=== PATIENT | female | born 1945 | race Caucasian/White ===

== ENCOUNTER → 2018-03-10 11:54 | Outpatient (CLI) | payer MEDICARE, OTHER, SELFPAY ==
[2018-03-10 14:41] LABS: Absolute Lymphocyte Count 1.53 X10^3/ul (0.83-4.51); Absolute Neutrophil Count 2.4 X10^3/uL (2.0-7.7); Basophil# 0.03 X10^3/uL; Basophil% 0.4 % (0-1); Differential Indicated SCAN CRITERIA MET; Eosinophil# 0.22 X10^3/uL; Hematocrit 36.5 % (37-47); Hemoglobin 12.2 g/dl (12.0-15.0); Lymphocyte # 1.53 X10^3/ul (4.0); Lymphocyte % 20.8 % (19-41); Mean Corp Hgb Conc 33.4 g/gl (32-36); Mean Corpuscular Hgb 35.8 pg (27.0-32.0); Mean Platelet Vol. 11.9 fl (6.2-12.0); Monocyte# 3.11 X10^3/uL; Monocyte% 42.3 % (0-10); Neutrophil # 2.44 X10^3/uL (2.7-7.7); Neutrophil % 33.2 % (47-70); POSITIVE COUNT NO; POSITIVE DIFFERENTIAL YES; POSITIVE MORPHOLOGY NO; Platelet Count 207 K/mm3 (150-450); RBC Distribution Width CV 14.1 % (11.6-14.6); RBC Distribution Width SD 54.1 fl (35.1-43.9); Red Blood Count 3.41 M/mm3 (4.2-5.4); White Blood Count 7.4 K/mm3 (4.4-11.0)
[2018-03-10 14:53] LABS: ALB/GLOB Ratio 0.7 RATIO (0.9-2.4); AST(SGOT) 27 U/L (15-37); Alanine Aminotransfer ALT/SGPT 36 U/L (13-56); Albumin, Serum 3.4 g/dL (3.2-5.0); Alkaline Phosphatase 66 U/L (45-117); Anion Gap 10 (5-15); BUN 19 mg/dL (7-18); Chloride 105 mmol/L (98-107); Cholesterol 153 mg/dL (200); Creatinine, Serum 0.86 mg/dL (0.55-1.02); EST Glomerular Filtration Rate 68 mL/min (>60); Est Glom Filt Rate - Afr Amer 83 mL/min (>60); Globulin 5.1 g/dL (2.2-4.2); Glucose 98 mg/dL (74-106); High Density Lipoprotein 36 mg/dL; Protein, Total 8.5 g/dL (6.4-8.2); Sodium Level 141 mmol/L (136-145); Triglycerides 123 mg/dL; Very Low Density Lipoprotein 25 mg/dL (5-40)
[2018-03-10 15:07] LABS: Differential Comment SCANNED
== END ==
PROVIDERS: Family Provider Family Medicine; PCP Family Medicine; Visit Provider Family Medicine
DX: E78.5 Hyperlipidemia, unspecified (principal); Z51.81 Encounter for therapeutic drug level monitoring; R53.83 Other fatigue
CPT/HCPCS: 36415; 80053; 80061; 85025

== ENCOUNTER → 2018-03-11 15:54 | Outpatient (CLI) | payer MEDICARE, OTHER, SELFPAY ==
[2018-03-14 20:11] LABS: PROEL- A/G Ratio 0.9 (0.7-1.7); PROEL- Albumin 3.4 g/dL (2.9-4.4); PROEL- Alpha-1 Globulin 0.3 g/dL (0.0-0.4); PROEL- Alpha-2 Globulin 0.5 g/dL (0.4-1.0); PROEL- Beta Globulin 2.7 g/dL (0.7-1.3); PROEL- Gamma Globulin 0.6 g/dL (0.4-1.8); PROEL- TOTAL PROTEIN 7.4 g/dL (6.0-8.5)
== END ==
PROVIDERS: Family Provider Family Medicine; PCP Family Medicine; Visit Provider Family Medicine
DX: R77.1 Abnormality of globulin (principal)
CPT/HCPCS: 36415; 84165

== ENCOUNTER → 2018-03-22 11:19 | Outpatient (CLI) | payer MEDICARE, OTHER, SELFPAY ==
[2018-03-24 16:10] LABS: PROELU- Albumin, Urine 4.1 % (.); PROELU- Alpha-1-Globulin,Ur 0.7 % (.); PROELU- Alpha-2-Globulin,Ur 2.5 % (.); PROELU- Beta Globulin, Ur 90.2 % (.); PROELU- Gamma Globulin, Ur 2.5 % (.); PROELU- M-Spike, Ur 80.4 % (Not Observed)
== END ==
PROVIDERS: Family Provider Family Medicine; PCP Family Medicine; Visit Provider Family Medicine
DX: R77.1 Abnormality of globulin (principal); R77.8 Other specified abnormalities of plasma proteins
CPT/HCPCS: 84166

== ENCOUNTER → 2018-04-23 11:11 | Outpatient (CLI) | payer MEDICARE, OTHER, SELFPAY | PROVIDERS: Family Provider Family Medicine; PCP Family Medicine; Visit Provider Internal Medicine Hematology & Oncology | DX: D75.89 Other specified diseases of blood and blood-forming organs (principal); D47.2 Monoclonal gammopathy ==

== ENCOUNTER → 2018-05-06 08:03 | Outpatient (CLI) | payer MEDICARE, OTHER, SELFPAY ==
[2018-05-06] VITALS (7 sets, daily range): BP systolic 106–162; BP diastolic 37–68; PULSE 67–85; RESP 12–22; TEMP 36.9; O2SAT 94–100; BMI 26.4
--- NOTE | 2018-05-06 | BMB_PTH ---
PATIENT: RADHA SPENCER LOC: [facility] U#:[id number] AGE/SX: 80/F ROOM: RE05/06/[address]: Dr. Christian Gómez MD : 1945 BED: DIS: SPEC #: [id number] RECD: 05/06/18 11:48 STATUS: VITA RE #: [id number] LUIS: 05/06/18 00:[address]: Christian Gómez DEPT: BONE MARROW RECD BY: Charles Servin ENTERED: 05/06/18 11:49 SP TYPE: BMB OTHR DR: Dr. 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 See comment. Flow cytometry study from [facility] shows a abnormal cytoplasmic restricted, 2% (kappa light chain restricted) plasma cell population. Granulocytes and monocytes show phenotypic aberrancies. No monoclonal B cell population is detected. There is no loss of or aberrant expression of candelaria T-cell antigens to suggest neoplastic T-cell process. The complete report is viewable in patient?s EMR. SJ:rg 05/11/18 COMMENT The bone marrow core biopsy specimen shows only the bone fragments. No marrow tissue is identified. Bone marrow clot specimen ? no specimen is recovered. Bone marrow aspirate smear show marked hemodilution. Mild increase of plasma cells are noted. Most of the plasma cells are mature with rare immature plasma cell and binucleated plasma cell. Correlation with clinical findings and appropriate follow up are necessary. BONE MARROW STUDY Slides are reviewed. CBC DATE: 05/06/18 WBC 6.7; RBC 3.55; HGB 12.3; HCT 37.9; MCV 106.8; RDW 14.3; PLTS 220,000 SEGS 28%; LYMPHS 27.67%; MONOS 39.6%; EOS 3.9%; BASOS 0.6% PERIPHERAL SMEAR: Submitted. RBC: Macrocytosis. WBC: Increased number of monocytes is noted. The WBC count is compatible to as reported above. PLTS: Adequate. BONE MARROW ASPIRATE DIFFERENTIAL: 200 cell count. Blasts % (normal 0-2): 0 Promyelocytes % (normal 1-5): 0 Myelocytes and metamyelocytes % (normal 17-41): 29 Bands and Segs % (normal 15-32): 37 Eos % (normal 1-6): 2 Basos % (normal 0-1): 0 Monocytes % (normal 0-4): 2 Erythroid Precursors % (normal 17-35): 11 Lymphocytes % (normal 7-13): 9 Plasma Cells % (normal 0-2): 10 ASPIRATE FINDINGS: Site: Right Aspicular, Hypocellular M/E ratio: 6.2 (Normal 1.5-4.0) Comment: The smears show marked hemodilution. All submitted smears are examined. Above count might not be accurate due to hemodilution. The smears show erythroid and myeloid cells. Megakaryocytes are not seen. Mild increase of plasma cells is noted. Most of the plasma cells are mature with rare immature plasma cells and binucleated plasma cells. CORE BIOPSY FINDINGS: Site: Right Adequacy: Insufficient Comment: The specimen entirely consists of bone fragments. No marrow tissue is identified. ASPIRATE CLOT FINDINGS: Site: Right Comment: No specimen is recovered. SPECIAL STAINS WITH MATCHED CONTROLS: Iron: Absent (hemodiluted smear) Reticulin: Noncontributory PAS: Highlights myeloid cells (hemodiluted smear) BONE MARROW GROSS A - Received is a container labeled with the patient's name and designated right hip. The specimen consists of two minute fragments of blood clot with possible fragments of bone measuring in aggregate 0.2 x 0.2 x 0.1. The entire specimen is submitted in one cassette after decalcification. B - Received labeled with the patient's name and designated right hip is a specimen that consists of approximately 2 cc of bloody fluid. No obvious blood clot is noted. The specimen is filtered through the bag and submitted entirely in one cassette. C - Also received are 19 unstained and 1 peripheral stained slides. The unstained slides are submitted for appropriate staining. Also received are two green top tubes which are sent to our reference lab for flow, cytogenetics and FISH. / SJ:rg 05/06/18 TC:5 CPT: 91488, 80360, 23924 x2, 50649 x3, 56451 ADDENDUM ADDENDUM ADDENDUM ADDENDUM ADDENDUM ADDENDUM ADDENDUM ADDENDUM ADDENDUM ADDENDUM ADDENDUM ADDENDUM ADDENDUM ADDENDUM ADDENDUM ADDENDUM ADDENDUM 05/18/2018 14:07 ADDENDUM 05/18/2018 14:07 ADDENDUM 05/18/2018 14:07 ADDENDUM 05/18/2018 14:07 ADDENDUM 05/18/2018 14:07 CYTOGENETICS REPORT FROM [facility] CYTOGENETIC RESULT: 47,XX,+8[5]/46,XX[15] INTERPRETATION: MDS/MPN related clone detected. MULTIPLE MYELOMA FISH PANEL FROM [facility] FISH RESULT: Positive for trisomy 11 and three IGH signals INTERPRETATION: Multiple myeloma related cone detected. MDS FISH PANEL FROM [facility] FISH RESULT: 39% of nuclei positive for three chromosome 8 signals INTERPRETATION: MDS/MPN/AML related clone detected Please see complete report in e-chart or EMR for further details
[2018-05-06 08:44] LABS: International Normalized Ratio 1.1; Partial Thromboplast Time 29.5 Seconds (24.1-36.2); Prothrombin Time (Protime)PT. 14.4 SECONDS (11.7-14.9)
[2018-05-06 08:44] LABS: Absolute Lymphocyte Count 1.85 X10^3/ul (0.83-4.51); Absolute Neutrophil Count 1.9 X10^3/uL (2.0-7.7); Basophil# 0.04 X10^3/uL; Basophil% 0.6 % (0-1); Differential Indicated SCAN CRITERIA MET; Eosinophil# 0.26 X10^3/uL; Eosinophils% 3.9 % (0-5); Hematocrit 37.9 % (37-47); Hemoglobin 12.3 g/dl (12.0-15.0); Lymphocyte # 1.85 X10^3/ul (4.0); Lymphocyte % 27.6 % (19-41); Mean Corp Hgb Conc 32.5 g/gl (32-36); Mean Corpuscular Hgb 34.6 pg (27.0-32.0); Mean Corpuscular Volume 106.8 fL (81-99); Mean Platelet Vol. 11.2 fl (6.2-12.0); Monocyte# 2.66 X10^3/uL; Monocyte% 39.6 % (0-10); Neutrophil # 1.88 X10^3/uL (2.7-7.7); POSITIVE COUNT NO; POSITIVE DIFFERENTIAL YES; POSITIVE MORPHOLOGY YES; Platelet Count 220 K/mm3 (150-450); RBC Distribution Width CV 14.3 % (11.6-14.6); RBC Distribution Width SD 55.9 fl (35.1-43.9); Red Blood Count 3.55 M/mm3 (4.2-5.4); White Blood Count 6.7 K/mm3 (4.4-11.0)
== END ==
PROVIDERS: Family Provider Family Medicine; PCP Family Medicine; Visit Provider Internal Medicine Hematology & Oncology
DX: C90.00 Multiple myeloma not having achieved remission (principal); D47.2 Monoclonal gammopathy; D75.89 Other specified diseases of blood and blood-forming organs
CPT/HCPCS: 38221; 36415; 77012; 77075; 85025; 85610; 85730; 88305; 88311; 88313; 99156; 99157; J7040; A4216

== ENCOUNTER 2018-06-22 13:55 | Emergency (ER) | payer MEDICARE, OTHER, SELFPAY ==
[2018-06-22 13:56] VITALS: BP 145/75; PULSE 71; RESP 16; TEMP 36.8; O2SAT 97; BMI 27.4
--- NOTE | 2018-06-22 14:16 | EKG12_ITS ---
Test Reason : CP Blood Pressure : / mmHG Vent. Rate : 071 BPM Atrial Rate : 071 BPM P-R Int : 156 ms QRS Dur : 080 ms QT Int : 400 ms P-R-T Axes : 053 027 043 degrees QTc Int : 434 ms Normal sinus rhythm Normal ECG Confirmed by JAMIA GARNICA, KAI ([id number]), editor producer TYLER MORGAN ([id number]) on 06/24/2018 1:24:43 PM Referred By: MIGUEL ÁNGEL/HUI Confirmed By:KAI BLANDON MD
--- NOTE | 2018-06-22 14:16 | CT_ITS ---
STUDY: CTA CHEST REASON FOR EXAM: Female, 73 years old. 2 day history of chest pain. History of bone metastasis. RADIATION DOSAGE (If Supplied By Facility): CTDIvol = ( 9.37 ) mGy, DLP = ( 2949.03 ) mGycm TECHNIQUE: The examination was performed with the intravenous administration of 100 ml of Isovue 370 contrast material. Post-processing of the angiographic images was performed, with multiplanar reformation and 3D reconstruction. Individualized dose optimization techniques were used for this CT. COMPARISON: None. FINDINGS: Small bilateral axillary lymph nodes. Normal enhancement of the main pulmonary artery and right and left pulmonary arteries. Normal enhancement of the bilateral peripheral pulmonary arteries. There is no demonstrated pulmonary embolism. Normal thoracic aorta and visualized great vessels. There is no demonstrated aortic dissection. Normal heart and pericardium. Normal mediastinum. Normal hilar regions. Normal visualized trachea and bronchi. Mild elevation of the right hemidiaphragm. Findings suggestive of a bilateral apical scarring. There is a 6.0 mm x 8.3 mm spiculated nodule in the anterior aspect of the left upper lobe as seen on axial image #196. There is a focal area of prominent reticular nodular change in the posterior aspect of the left upper lobe as seen on axial image #136. This measures 1.9 cm x 1 cm. There is also evidence of a focal irregular soft tissue density in the posterior aspect of the right upper lobe as seen on axial image #112. Mild increased markings along the posterior aspect of the both lower lobes suggestive of scarring. Normal pleura. Normal chest wall structures. There are degenerative changes of thoracic spine. There is a 2.5 cm x 2.6 cm rounded hypodensity peripheral aspect of the superior aspect of the right lobe of the liver. A metastatic deposit should be ruled out. CT/CTA Chest W/WO Contrast IMPRESSION: There is no evidence of pulmonary embolism. Findings suggestive of a possible scarring in both lower lobes as well as both lung apices. Small spiculated nodule in the left upper lobe as well as focal area of the irregularity in the posterior aspect of the right upper lobe. Correlation with a PET scan is recommended. Electronically Signed: Kenyon Carmen MD at 15:25 EDT Tel [phone], Service support ,
[2018-06-22 14:25] VITALS: O2SAT 95
[2018-06-22] MEDS: 0.9% Normal Saline 1,000 ML 1000 ML IV (14:27)
[2018-06-22 14:28] LABS: Absolute Lymphocyte Count 1.13 X10^3/ul (0.83-4.51); Absolute Neutrophil Count 5.7 X10^3/uL (2.0-7.7); Basophil# 0.03 X10^3/uL; Basophil% 0.3 % (0-1); Differential Indicated SCAN CRITERIA MET; Eosinophil# 0.47 X10^3/uL; Eosinophils% 4.2 % (0-5); Hematocrit 36.6 % (37-47); Hemoglobin 11.7 g/dl (12.0-15.0); Lymphocyte # 1.13 X10^3/ul (4.0); Lymphocyte % 10.1 % (19-41); Mean Corpuscular Hgb 34.7 pg (27.0-32.0); Mean Corpuscular Volume 108.6 fL (81-99); Mean Platelet Vol. 13.1 fl (6.2-12.0); Monocyte# 3.85 X10^3/uL; Monocyte% 34.3 % (0-10); Neutrophil # 5.67 X10^3/uL (2.7-7.7); Neutrophil % 50.3 % (47-70); POSITIVE COUNT NO; POSITIVE DIFFERENTIAL YES; POSITIVE MORPHOLOGY NO; Platelet Count 121 K/mm3 (150-450); RBC Distribution Width CV 14.9 % (11.6-14.6); RBC Distribution Width SD 57.1 fl (35.1-43.9); Red Blood Count 3.37 M/mm3 (4.2-5.4); White Blood Count 11.2 K/mm3 (4.4-11.0)
[2018-06-22 14:41] LABS: Anion Gap 7 (5-15); BUN 17 mg/dL (7-18); BUN/Creat Ratio 19.3 RATIO (10-20); Calcium,Total 9.1 mg/dL (8.5-10.1); Chloride 102 mmol/L (98-107); Creatinine, Serum 0.88 mg/dL (0.55-1.02); EST Glomerular Filtration Rate 67 mL/min (>60); Est Glom Filt Rate - Afr Amer 81 mL/min (>60); Glucose 102 mg/dL (74-106); Potassium 4.3 mmol/L (3.5-5.1); Sodium Level 138 mmol/L (136-145)
--- NOTE | 2018-06-22 15:53 | ED.VISSUMM ---
- ER Visit Summary Date of Service: 06/22/18 Chief Complaint: Chest pain History of Present Illness: The patient is a [address] Wilson and Dr. Green. She reports that she has left-sided chest pain began 2 days ago. Is a continuous sharp pain Zeta 10 at worst and 6 out of 10 currently. Is worsened by breathing and relieved by nothing. She reports is been diaphoretic with this. She denies any nausea, vomiting, or shortness of breath. Patient has a history of multiple myeloma and took a long road trip over the course of 3 days last week. She denies any exertional character this pain. Physical Examination: Vitals: Stable. Afebrile. General: Well-nourished and well-developed. Head: Normocephalic atraumatic. Neck: Supple, no lymphadenopathy. No JVD. Nontender. Cardiovascular: Regular rate and rhythm. No murmurs. Respiratory: No respiratory distress. Clear to auscultation bilaterally. Mild diffuse tenderness palpation over the left side of her upper chest that does reproduce her pain. Abdominal: Soft, nontender, nondistended, normal bowel sounds. No guarding, rebound, or peritoneal signs. Back: Nontender. Extremities: Nontender, no edema. Skin: Normal color, no rash. Neurologic: Alert and oriented ?3. Cranial nerves II through XII are intact. Normal strength and sensation. Psych: Normal affect. Test Results: EKG is sinus at 71 with no acute changes. Troponin is negative. Chem-7 is normal. CBC is marked for a white count of 11.2 with 10 lymphocytes and 34 monocytes. H&H is 11.7 38.6. Platelets are 121. Clinical Impression(s) from Imaging Studies Chest CTA 06/22/18 14:16 IMPRESSION: There is no evidence of pulmonary embolism. Findings suggestive of a possible scarring in both lower lobes as well as both lung apices. Small spiculated nodule in the left upper lobe as well as focal area of the irregularity in the posterior aspect of the right upper lobe. Correlation with a PET scan is recommended. Electronically Signed: Kenyon Carmen MD at 15:25 EDT Tel [phone], Service support , Emergency Department Course and Treatment: Patient refused pain medications and is resting comfortably. The main concern was that she may have a pulmonary embolus. With this negative she is reassured. I did discuss the possibility of the pulmonary nodule with her. She reports that she has had a PET scan previously. Treatment Plan: Patient will be discharged instructions follow-up with her oncologist in 2 days previously scheduled. She is refused pain medications at home. Return to the emergency department for any worsening symptoms. Disposition: To home in improved and stable condition. Impression: 1. Atypical chest pain. 2. Pulmonary nodules. 3. History of multiple myeloma. This note was generated with [employer] dictation software. It may contain incorrect words, spelling, and punctuation that were not noted in review of the chart prior to signing ED Disposition - Plan for ED Patient: Disposition: Home or Assisted Living Chief Complaint: Chest Pain Instructions: ED Chest Pain Atypical Unkn Cause, ED Nodule Solitary Pulmonary Referrals: Christian Gómez MD [STAFF PHYSICIAN] - Keep Vi appointment
--- NOTE | 2018-06-22 16:07 | ED.DCSUM_ITS ---
- ER Visit Summary Date of Service: 06/22/18 Chief Complaint: Chest pain History of Present Illness: The patient is a [address] Wilson and Dr. Green. She reports that she has left-sided chest pain began 2 days ago. Is a continuous sharp pain Zeta 10 at worst and 6 out of 10 currently. Is worsened by breathing and relieved by nothing. She reports is been diaphoretic with this. She denies any nausea, vomiting, or shortness of breath. Patient has a history of multiple myeloma and took a long road trip over the course of 3 days last week. She denies any exertional character this pain. Physical Examination: Vitals: Stable. Afebrile. General: Well-nourished and well-developed. Head: Normocephalic atraumatic. Neck: Supple, no lymphadenopathy. No JVD. Nontender. Cardiovascular: Regular rate and rhythm. No murmurs. Respiratory: No respiratory distress. Clear to auscultation bilaterally. Mild diffuse tenderness palpation over the left side of her upper chest that does reproduce her pain. Abdominal: Soft, nontender, nondistended, normal bowel sounds. No guarding, rebound, or peritoneal signs. Back: Nontender. Extremities: Nontender, no edema. Skin: Normal color, no rash. Neurologic: Alert and oriented ?3. Cranial nerves II through XII are intact. Normal strength and sensation. Psych: Normal affect. Test Results: EKG is sinus at 71 with no acute changes. Troponin is negative. Chem-7 is normal. CBC is marked for a white count of 11.2 with 10 lymphocytes and 34 monocytes. H&H is 11.7 38.6. Platelets are 121. Clinical Impression(s) from Imaging Studies Chest CTA 06/22/18 14:16 IMPRESSION: There is no evidence of pulmonary embolism. Findings suggestive of a possible scarring in both lower lobes as well as both lung apices. Small spiculated nodule in the left upper lobe as well as focal area of the irregularity in the posterior aspect of the right upper lobe. Correlation with a PET scan is recommended. Electronically Signed: Kenyon Carmen MD at 15:25 EDT Tel [phone], Service support , Emergency Department Course and Treatment: Patient refused pain medications and is resting comfortably. The main concern was that she may have a pulmonary embolus. With this negative she is reassured. I did discuss the possibility of the pulmonary nodule with her. She reports that she has had a PET scan previously. Treatment Plan: Patient will be discharged instructions follow-up with her oncologist in 2 days previously scheduled. She is refused pain medications at home. Return to the emergency department for any worsening symptoms. Disposition: To home in improved and stable condition. Impression: 1. Atypical chest pain. 2. Pulmonary nodules. 3. History of multiple myeloma. This note was generated with [employer] dictation software. It may contain incorrect words, spelling, and punctuation that were not noted in review of the chart prior to signing ED Disposition - Plan for ED Patient: Disposition: Home or Assisted Living Chief Complaint: Chest Pain Instructions: ED Chest Pain Atypical Unkn Cause, ED Nodule Solitary Pulmonary Referrals: Christian Gómez MD [STAFF PHYSICIAN] - Keep Vi appointment
[2018-06-22 16:22] VITALS: BP 131/74; PULSE 62; RESP 15; O2SAT 99
== END 2018-06-22 16:23 | disposition home or self-care (01) ==
PROVIDERS: Emergency Provider Emergency Medicine; Family Provider Family Medicine; PCP Family Medicine
DX: R07.89 Other chest pain (principal); R19.8 Other specified symptoms and signs involving the digestive system and abdomen; C90.00 Multiple myeloma not having achieved remission; Z79.82 Long term (current) use of aspirin; Z79.899 Other long term (current) drug therapy
CPT/HCPCS: 71275; 80048; 84484; 85025; 93005; 96360; 96361; 99285; J7030; Q9967; A4216

== ENCOUNTER → 2018-06-29 07:43 | Outpatient (CLI) | payer MEDICARE, OTHER, SELFPAY ==
[2018-06-29] VITALS (9 sets, daily range): BP systolic 104–168; BP diastolic 33–82; PULSE 66–78; RESP 12–18; TEMP 36.8; O2SAT 94–100; BMI 27.4
--- NOTE | 2018-06-29 | ASPIGT_PTH ---
PATIENT: RADHA SPENCER LOC: CT U#:[id number] AGE/SX: 80/F ROOM: RE06/29/[address]: Dr. Christian Gómez MD : 1945 BED: DIS: SPEC #: [id number] RECD: 06/29/18 11:41 STATUS: VITA REDianna #: [id number] LUIS: 06/29/18 00:[address]: Christian Gómez DEPT: SURGICAL PATHOLOGY RECD BY: Italo Guaman ENTERED: 06/29/18 11:42 SP TYPE: ASP RAD OTHR DR: Dr. Augusta Wilson DO Tissues: Liver, NOS Procedures: PAS with Diastase (control) FNA Specimen Adequacy Trichrome (control) Special Stain Group II PAS Stain (control) Surgery Specimen Level V Diff Quik Stain (control) Retic (control) Iron Stain (control) Imprint (control) Cytology Other HEADER PERATION: CT guided liver biopsy PRE-OP DIAGNOSIS: Liver lesion TISSUE SUBMITTED: Liver lesion, CT guided core biopsy MICROSCOPIC DIAGNOSIS Liver lesion, CT-guided needle core biopsy: Liver parenchyma with minimal chronic inflammation. Fibrovascular tissue with associated minimal fibrinoid material and degenerative change. AM:ash 06/30/18 COMMENT The specimen is evaluated at the time of CT by Dr. Murphy. Immediate Evaluation: 1 - Hepatocytes noted, negative for malignant cells. 2 - Negative for malignant cells. Immunohistochemistry ([id number]) supports the above diagnosis. Special stains (trichrome, PAS, PAS with diastase, iron and reticulin) along with matched controls are reviewed and support the diagnosis. A benign vascular lesion cannot be entirely excluded. Clinical correlation is necessary. Case has been reviewed in consultation with Dr. Murphy who concurs with the above diagnosis. IDC:EDITA MICROSCOPIC DESCRIPTION Slides are reviewed. GROSS DESCRIPTION Received in fixative is one container labeled with the patient's name and designated liver lesion, CT-guided core biopsy. The specimen consists of multiple elongated fragments of ng soft tissue that in aggregate measure 1.5 x 0.2 x 0.1 cm. The specimen is totally submitted in one cassette. Two touch imprints are prepared at the time of core biopsy. / EDITA:ash 06/29/18 TC:5 CPT: 02334, 66840 x5
--- NOTE | 2018-06-29 | IMM_PTH ---
PATIENT: RADHA SPENCER LOC: CT U#:[id number] AGE/SX: 80/F ROOM: RE06/29/[address]: Dr. Christian Gómez MD : 1945 BED: DIS: SPEC #: [id number] RECD: 06/30/18 12:10 STATUS: VITA REQ #: [id number] LUIS: 06/29/18 00:[address]: Christian Gómez DEPT: IMMUNOHISTOCHEMISTRY RECD BY: Lynn Maldonado ENTERED: 06/30/18 12:11 SP TYPE: IMMUNO OTHR DR: Dr. Augusta Wilson DO Tissues: Liver, NOS Procedures: CD31 (add) CD34 (add) FACTOR VIII (add) CK7 (initial) PHYSICIAN & INSTITUTION [place] [id number] SPECIMEN INFORMATION: Tissue Source: Liver lesion Clinical Info: Liver lesion Specimen Number: [id number] CPT code: 96528, 24754 x3 METHODOLOGY: Deparaffinized sections of prefer/formalin-fixed tissue or PAP/DQ stained slides are incubated with monoclonal/polyclonal antibodies/oligonucleotide probes. Localization is made via biotin free immunoperoxidase method. Appropriate controls are performed and reacted as expected. Results on target cell population are indicated in the following table: RESULTS: ANTIBODY / CLONE RESULT CK7 (OV-TL12/30) negative CD31 (SHIREEN/70A) positive CD34 (QBEnd-10) positive Factor VIII (R Ag) positive These tests were developed and their performance characteristics determined by [facility]. They may not have been cleared or approved by the U.S. Food and Drug Administration. The FDA has determined that such clearance or approval is not necessary. INTERPRETATION: Liver lesion, CT-guided biopsy: No evidence of malignancy. AM:ash 07/01/18 Comment: A benign vascular neoplasm cannot be excluded.
--- NOTE | 2018-06-29 07:56 | CT_ITS ---
PROCEDURE: CT DIRECTED CORE LIVER BIOPSY INDICATION: Female, 73 years old. Hepatic nodule. History of multiple myeloma. PHYSICIAN: Dr. Carmen. CONSENT: Written informed consent was obtained having explained the risks, benefits and alternatives in detail with the patient who accepted the risks and agreed to proceed. Laboratory review and clinical assessment was performed. CONSCIOUS SEDATION PROTOCOL: The Drugs used were: 2 mg Versed, IV., and 50 mcg Fentanyl, IV. The sedation time was: 20 minutes. Conscious sedation was started at 9:14 AM and terminated at 9:34 AM. The conscious sedation protocol was independently monitored. RADIATION DOSAGE (If Supplied By Facility): CTDIvol = ( 15.5 ) mGy, DLP = ( 300.38 ) mGycm Individualized dose optimization techniques were used for this CT. TECHNIQUE: Using CT image guidance with image documentation, a suitable location in the right lobe of the liver was identified. Using a right lateral approach, puncture of the liver was uneventful with an 18-gauge core needle system. 4 18-gauge core samples were obtained, and submitted in formalin to the pathologist for further assessment. Followup CT scan revealed no distinct sequelae. CT/Biopsy/Inj or Needle Placement IMPRESSION: 1. CT directed core needle biopsy of the liver, using CT image guidance with image documentation as described. 2. Conscious Sedation protocol utilized with independent monitoring. Electronically Signed: Kenyon Carmen MD at 10:46 EDT Tel [phone], Service support ,
[2018-06-29 08:00] LABS: Absolute Lymphocyte Count 1.56 X10^3/ul (0.83-4.51); Absolute Neutrophil Count 2.1 X10^3/uL (2.0-7.7); Basophil# 0.07 X10^3/uL; Basophil% 0.9 % (0-1); Eosinophil# 0.38 X10^3/uL; Hemoglobin 12.1 g/dl (12.0-15.0); Lymphocyte # 1.56 X10^3/ul (4.0); Lymphocyte % 20.4 % (19-41); Mean Corp Hgb Conc 33.6 g/gl (32-36); Mean Corpuscular Hgb 36.2 pg (27.0-32.0); Mean Corpuscular Volume 107.8 fL (81-99); Mean Platelet Vol. 12.3 fl (6.2-12.0); Monocyte# 3.53 X10^3/uL; Monocyte% 46.2 % (0-10); Neutrophil # 2.07 X10^3/uL (2.7-7.7); Neutrophil % 27.1 % (47-70); Platelet Count 98 K/mm3 (150-450); RBC Distribution Width CV 14.6 % (11.6-14.6); RBC Distribution Width SD 56.3 fl (35.1-43.9); Red Blood Count 3.34 M/mm3 (4.2-5.4); White Blood Count 7.6 K/mm3 (4.4-11.0)
[2018-06-29 08:01] LABS: Differential Indicated SCAN CRITERIA MET; POSITIVE COUNT NO; POSITIVE DIFFERENTIAL YES; POSITIVE MORPHOLOGY YES
[2018-06-29 08:20] LABS: Differential Comment SCANNED; Macrocytosis RARE; Platelet Estimate MOD DEC (ADEQ)
[2018-06-29 08:23] LABS: International Normalized Ratio 1.1; Prothrombin Time (Protime)PT. 14.5 SECONDS (11.7-14.9)
[2018-06-29 08:24] LABS: Partial Thromboplast Time 28.1 Seconds (24.1-36.2)
[2018-06-29] MEDS: fentaNYL 100 MCG/2 ML Ampul IV (09:14)
[2018-06-29] MEDS: Midazolam 2 MG/2 ML Syringe IV (09:14)
[2018-06-30 14:21] LABS: Pathologist Review Reviewed
== END ==
PROVIDERS: Family Provider Family Medicine; PCP Family Medicine; Referring Provider Internal Medicine Hematology & Oncology; Visit Provider Internal Medicine Hematology & Oncology
DX: K76.9 Liver disease, unspecified (principal); C90.00 Multiple myeloma not having achieved remission; D46.20 Refractory anemia with excess of blasts, unspecified
CPT/HCPCS: 47000; 36415; 77012; 85025; 85610; 85730; 88161; 88172; 88305; 88307; 88313; 88341; 88342; 99156; 99157; J7040; A4216

== ENCOUNTER 2018-11-11 21:20 | Emergency (ER) | payer MEDICARE, OTHER, SELFPAY ==
[2018-11-02 10:34] VITALS: BMI 27.3
[2018-11-11 21:20] VITALS: BP 193/94; PULSE 88; RESP 16; TEMP 36.9; O2SAT 98; BMI 27.6
--- NOTE | 2018-11-11 22:51 | RAD_ITS ---
STUDY: X-RAY - PELVIS REASON FOR EXAM: Female, 73 years old. Sciatic pain TECHNIQUE: One view of the pelvis was obtained. COMPARISON: None. FINDINGS: There is a non-specific bowel gas pattern. Normal visualized soft tissue structures. Normal bilateral iliac wings, sacroiliac joints and visualized sacrum. Normal visualized bilateral superior and inferior pubic rami. Normal pubic symphysis. Normal ischial tuberosities. Normal visualized right femoral head. Normal right acetabulum. Normal right hip joint. Normal visualized left femoral head. Normal left acetabulum. Normal left hip joint. RAD/Pelvis 1 or 2 Views IMPRESSION: Normal x-ray examination of the pelvis. Electronically Signed: Kimani Jefferson MD at 23:48 EDT , Service support ,
--- NOTE | 2018-11-11 22:51 | ED.VISSUMM ---
- ER Visit Summary Date of Service: 11/11/18 Chief Complaint: Low back pain History of Present Illness: The patient is a 73 F presents with low back pain that has been getting worse over the past 6 days. Patient states she has a history of multiple myeloma. Patient states she saw her chiropractor today who told her that she had some inflammation of her sacroiliac joint. Patient describes the pain as sharp, aching, and burning. Patient states pain is over the left gluteal area. Patient states pain is worse with ambulation. Patient states that she did take an ibuprofen 800 mg tablet earlier this week which did help. Patient states the pain radiates into her left thigh. Patient denies any abdominal pain. Patient denies any bowel or bladder changes. Patient denies any saddle anesthesia. Physical Examination: Vital signs are stable. Patient is afebrile. Patient is in no acute distress. Muscular skeletal exam does reveal tenderness over the left sacroiliac joint. There is no bony crepitance or step-off. Strength is 5/5 bilaterally upper and lower extremities. There are no sensory deficits noted. Is no calf tenderness noted. Pedal pulses are equal bilaterally. There is good range of motion. Heart was regular rate and rhythm. Lungs are clear and equal bilateral. Abdomen is soft nontender. The remaining physical exam is within normal limits. Test Results: X-rays of the pelvis were obtained. There is no acute fracture. There are no punched out lesions. Emergency Department Course and Treatment: Patient was given an injection of morphine here. Patient states that when she got down to x-ray she had pain in her epigastric and lower chest area. When she returned to the emergency department this pain persisted. EKG was obtained at that time which showed normal sinus rhythm with a rate of 73. There are no acute ST or T wave changes noted. Patient also became nauseated after the morphine injection. Patient was given a dose of Zofran. Patient was feeling better on reevaluation. Patient was given a prescription for Isola. Patient was instructed to follow-up with her primary care physician in 5-7 days. Patient understood and was agreeable with the plan. All questions were answered. Disposition: Discharge home Impression: 1. Sacroiliitis 2. Adverse medication reaction This note was generated with [employer] software. It may contain incorrect words, spelling, and punctuation that were not noted in review of the chart prior to signing ED Disposition - Plan for ED Patient: Disposition: Home or Assisted Living Diagnosis: Sacroiliitis Instructions: ED Neck Back Pain General Prescriptions: Hydrocodone Bitart/Apap 5-325 [Isola 5MG-325MG] 1 tab PO Q6H PRN PRN 3 Days #10 tab PRN Reason: Pain Referrals: Augusta Wilson DO [Primary Care Provider] -
--- NOTE | 2018-11-11 22:54 | ED.DCSUM_ITS ---
- ER Visit Summary Date of Service: 11/11/18 Chief Complaint: Low back pain History of Present Illness: The patient is a 73 F presents with low back pain that has been getting worse over the past 6 days. Patient states she has a history of multiple myeloma. Patient states she saw her chiropractor today who told her that she had some inflammation of her sacroiliac joint. Patient describes the pain as sharp, aching, and burning. Patient states pain is over the left gluteal area. Patient states pain is worse with ambulation. Patient states that she did take an ibuprofen 800 mg tablet earlier this week which did help. Patient states the pain radiates into her left thigh. Patient denies any abdominal pain. Patient denies any bowel or bladder changes. Patient denies any saddle anesthesia. Physical Examination: Vital signs are stable. Patient is afebrile. Patient is in no acute distress. Muscular skeletal exam does reveal tenderness over the left sacroiliac joint. There is no bony crepitance or step-off. Strength is 5/5 bilaterally upper and lower extremities. There are no sensory deficits noted. Is no calf tenderness noted. Pedal pulses are equal bilaterally. There is good range of motion. Heart was regular rate and rhythm. Lungs are clear and equal bilateral. Abdomen is soft nontender. The remaining physical exam is within normal limits. Test Results: X-rays of the pelvis were obtained. There is no acute fracture. There are no punched out lesions. Emergency Department Course and Treatment: Patient was given an injection of morphine here. Patient states that when she got down to x-ray she had pain in her epigastric and lower chest area. When she returned to the emergency department this pain persisted. EKG was obtained at that time which showed normal sinus rhythm with a rate of 73. There are no acute ST or T wave changes noted. Patient also became nauseated after the morphine injection. Patient was given a dose of Zofran. Patient was feeling better on reevaluation. Patient was given a prescription for [place]. Patient was instructed to follow-up with her primary care physician in 5-7 days. Patient understood and was agreeable with the plan. All questions were answered. Disposition: Discharge home Impression: 1. Sacroiliitis 2. Adverse medication reaction This note was generated with [employer] software. It may contain incorrect words, spelling, and punctuation that were not noted in review of the chart prior to signing ED Disposition - Plan for ED Patient: Disposition: Home or Assisted Living Diagnosis: Sacroiliitis Instructions: ED Neck Back Pain General Prescriptions: Hydrocodone Bitart/Apap 5-325 [[place] 5MG-325MG] 1 tab PO Q6H PRN PRN 3 Days #10 tab PRN Reason: Pain Referrals: Augusta iWlson DO [Primary Care Provider] -
[2018-11-11] MEDS: Morphine 4 MG/ML Syringe IM (22:58)
[2018-11-11] MEDS: Ondansetron ODT 4 MG Tablet PO (23:24)
--- NOTE | 2018-11-12 00:22 | ED.RN ---
pt took 1 nitro of 's in room. RN was not aware until after taken. EKG was done. MD aware.
[2018-11-12 00:28] VITALS: BP 169/76; PULSE 85; RESP 18; O2SAT 97
== END 2018-11-12 00:44 | disposition home or self-care (01) ==
PROVIDERS: Emergency Provider Emergency Medicine; Family Provider Family Medicine; PCP Family Medicine
DX: M46.1 Sacroiliitis, not elsewhere classified (principal); R10.13 Epigastric pain; R07.89 Other chest pain; R11.0 Nausea; T40.2X5A Adverse effect of other opioids, initial encounter; Y92.538 Other ambulatory health services establishments as the place of occurrence of the external cause; C90.00 Multiple myeloma not having achieved remission; Z79.82 Long term (current) use of aspirin; Z79.899 Other long term (current) drug therapy
CPT/HCPCS: 72170; 96372; 99283

== ENCOUNTER → 2018-11-25 16:45 | Outpatient (CLI) | payer MEDICARE, SELFPAY ==
[2018-11-16 10:39] VITALS: BMI 27.0
[2018-11-23 10:19] VITALS: BMI 27.4
== END ==
PROVIDERS: Family Provider Family Medicine; PCP Family Medicine; Referring Provider Family Medicine; Visit Provider Family Medicine
DX: R19.7 Diarrhea, unspecified (principal)

== ENCOUNTER → 2018-12-01 10:21 | Outpatient (CLI) | payer MEDICARE, OTHER, SELFPAY ==
[2018-11-16 10:39] VITALS: BMI 27.0
[2018-11-30 10:36] VITALS: BMI 27.1
--- NOTE | 2018-12-01 10:32 | MRI_ITS ---
HISTORY: Low back pain. Left sciatica. Multiple myeloma. EXAM/TECHNIQUE: MR Spine Lumbar WO/W Contrast: 14 cc Dotarem administered intravenously. 1.5 Dannielle. Multiplanar, multisequence. COMPARISON: 05/23/18 PET/CT. FINDINGS: # of images incl. paperwork: 157 No fracture or focal aggressive osseous lesions. Diffuse loss of fatty marrow signal compatible with the history of multiple myeloma. Incidental fatty attenuation in S1, either a hemangioma or a lipoma. Alignment anatomic. Conus terminates at the level of the mid L2 vertebral body with normal contour and signal. No abnormal enhancement. No concerning findings in the paraspinal soft tissues. At L1-2, small disc bulge and mild facet degeneration causes no significant narrowing. At L2-3, diffuse disc bulge and moderate facet degeneration causes only mild narrowing. At L3-4, diffuse disc bulge with left lateral protrusion causes moderate narrowing of the left subarticular zone, displacing posteriorly but not compressing the traversing left L4 nerve root. Disc extends into and moderately narrows the left foramen, mildly displacing the exiting left L3 nerve root. Only mild right-sided narrowing. At L4-5, small disc bulge and moderate bilateral facet degeneration causes only mild narrowing. At L5-S1, small disc bulge and vertebral body and facet osteophytes cause only mild narrowing. MRI/Spine Lumbar W/WO Contrast IMPRESSION: No acute findings. Diffuse loss of fatty marrow signal compatible with the history of multiple myeloma. No focal suspicious lesions, no abnormal enhancement. Prominent disc degeneration at L3-4. If there is left L3 or L4 radiculopathy this might be the etiology. at 0506 Reported and signed by: Kimani Silva MD Electronically Signed: Kimani Silva, at 5:04 EDT Tel , Service support ,
--- NOTE | 2018-12-01 10:33 | MRI_ITS ---
STUDY: MRI LEFT HIP WITH AND WITHOUT CONTRAST REASON FOR EXAM: Left hip pain, multiple myeloma. TECHNIQUE: Standardized fat and water weighted pulse sequences were obtained in all 3 orthogonal planes before and after intravenous administration of 14 mL of Dotarem. COMPARISON: Radiograph 11/11/2018. FINDINGS: Normal hip joint without articular joint space narrowing. Normal acetabulum. Normal labrum. There is diffuse marrow replacement of the pelvis and proximal bilateral femurs consistent with the given history of multiple myeloma (T1 coronal images 9-21). There are a few foci preserved yellow marrow in the proximal femurs bilaterally (T1 coronal images 15-18). There is no avascular necrosis of the femoral head or demonstrated stress fracture. There is no abnormal contrast enhancement. Normal gluteus minimus, medius and iliopsoas tendons and distal insertions. There is no trochanteric, iliopsoas or iliopectineal bursitis. Normal pubic symphysis. Normal origin of the hamstring tendons. Normal visualized soft tissue structures of the pelvis. MRI/Lower Ext Joint Only W/WO Cont IMPRESSION: Diffuse marrow replacement of the pelvis and bilateral femurs consistent with multiple myeloma. Otherwise, unremarkable MRI of the left hip. Electronically Signed: Josesito Liu MD at 13:13 EDT Tel , Service support ,
== END ==
PROVIDERS: Family Provider Family Medicine; PCP Family Medicine; Referring Provider Anesthesiology; Visit Provider Anesthesiology
DX: M46.1 Sacroiliitis, not elsewhere classified (principal); M54.16 Radiculopathy, lumbar region; M25.552 Pain in left hip
CPT/HCPCS: 72158; 73723; A9575

== ENCOUNTER 2018-12-21 14:17 | Emergency (ER) | payer MEDICARE, OTHER, SELFPAY ==
[2018-12-21 10:37] VITALS: BMI 26.9
[2018-12-21 14:18] VITALS: BP 139/63; PULSE 81; RESP 16; TEMP 36.6; O2SAT 96; BMI 26.2
[2018-12-21 14:31] VITALS: BP 138/58; PULSE 84; RESP 17; O2SAT 96
--- NOTE | 2018-12-21 14:39 | RAD_ITS ---
STUDY: X-RAY CHEST REASON FOR EXAM: Female, 73 years old. Chest pain TECHNIQUE: Single AP portable view of the chest. COMPARISON: Chest x-ray 01/06/2017 FINDINGS: The lungs are clear and expanded. There is no demonstrated pleural abnormality. Normal size heart. Normal mediastinum and shashi. Normal visualized pulmonary arteries. Normal visualized aortic arch and descending thoracic aorta. Normal visualized thoracic spine. Normal visualized ribs, clavicles, and shoulders. There is no demonstrated abnormality of the visualized soft tissue structures of the upper abdomen. RAD/Chest 1 View (Portable) IMPRESSION: Normal x-ray examination of the chest. Electronically Signed: Tamie Brown, at 15:28 EDT Tel , Service support ,
--- NOTE | 2018-12-21 14:40 | CT_ITS ---
STUDY: CT BRAIN WITH AND WITHOUT CONTRAST REASON FOR EXAM: Female, 73 years old. Confusion, known multiple myeloma dominant known meningioma RADIATION DOSAGE (If Supplied By Facility): CTDIvol = ( 44.99 ) mGy, DLP = ( 1547.23 ) mGycm TECHNIQUE: Transaxial CT imaging of the brain was performed pre and post contrast administration. The examination was performed with intravenous administration of 50CC IV Isovue 370. Individualized dose optimization techniques were used for this CT. COMPARISON: None. FINDINGS: Normal soft tissue structures. Normal calvarium. Along the posterior left falx is a well-defined hyperdense 1.79 x 1.60 x 1.26 cm lesion, likely the known meningioma. Normal size ventricles and extra-axial spaces for the patient's age elsewhere. Normal white matter tracts of the cerebral hemispheres. Normal basal ganglia and thalami. Normal brainstem. Normal cerebellum. There is no intracranial hemorrhage. There are no findings of an acute ischemic infarction. Minimal mucosal thickening noted in the sphenoid sinus. CT/Brain/Head W/WO Contrast IMPRESSION: Age consistent changes, no acute findings Sphenoid sinusitis Known posterior left meningioma Electronically Signed: Nito Cullen MD at 16:01 EDT , Service support ,
--- NOTE | 2018-12-21 14:41 | ED.VISSUMM ---
- ER Visit Summary Date of Service: 12/21/18 Chief Complaint: Transient confusion History of Present Illness: The patient is a 73 F history of multiple myeloma currently undergoing chemotherapy. States yesterday she was at the [employer] and went to write a check could not do it herself. Had to have someone help her. Said she felt a little confused. Mild headache yesterday and this morning which is since resolved. She told them about this episode today at chemotherapy and they wonder evaluate the ER afterwards. She states her headache is gone. She denies any nausea, vomiting or diarrhea. No fever or dysuria. She did have a stroke and was treated at [facility] approximately 3 weeks ago. States she is feeling much better today. Physical Examination: Well-appearing older female. Vital signs are stable. She is afebrile. She does not look septic or toxic. She is in no distress. Sitting up in bed. HEENT exam unremarkable. Pupils round reactive light. Extra motions are intact. No facial droop. Normal speech. Oral mucous membranes. No signs of trauma to her face or scalp. Neck nontender. No meningismus. No lymphadenopathy. Lungs to auscultation bilaterally. Heart regular rhythm rate about 80 no murmur. Chest wall nontender. Abdomen soft and nontender. Normal bowel sounds no peritoneal signs. Patient is moving all 4 extremities. Neurovascularly intact. Lower extremities are nontender without edema or cords. 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 Dorsi plantar flexion intact. Neurologically she is awake and alert. Speaking normally. No facial droop. Equal symmetrical 5 out of 5 brim stretching machine operator strength. Fingertip to nose within normal limits bilaterally. Dorsi plantar flexion intact. Cognition within normal limits. Her NIH score is 0. When asked she knows the day of the week is Wednesday. She had trouble recalling the month but she also knew the president of [facility] and she knew where she was at. Test Results: Chest x-ray shows no acute abnormality read as normal both by myself and the radiologist. CT of the brain with and without IV contrast shows a meningioma which the patient has a prior history of. I do not see any other acute abnormalities. Also age-related changes. Read the same by the radiologist. Urinalysis is normal. No signs of infection. CBC and BMP are both pending. Repeat exam the patient is doing well at 1605 p.m. I discussed with both her and her significant other at bedside. More than likely she will be able to be discharged home. She will be turned over to the afternoon physician Dr. Watts to check her lab work. If no significant findings am comfortable with her being discharged home. Emergency Department Course and Treatment: Older female history of multiple myeloma on chemotherapy. Transient confusion yesterday as basically a normal exam today. Treatment Plan: [] Disposition: Discharge Impression: Transient Confusion resolved Status post recent stroke History of multiple myeloma This note was generated with [employer] dictation software. It may contain incorrect words, spelling, and punctuation that were not noted in review of the chart prior to signing ED Disposition - Plan for ED Patient: Referrals: Augusta Wilson DO [Primary Care Provider] -
--- NOTE | 2018-12-21 14:46 | ED.DCSUM_ITS ---
- ER Visit Summary Date of Service: 12/21/18 Chief Complaint: Transient confusion History of Present Illness: The patient is a 73 F history of multiple myeloma currently undergoing chemotherapy. States yesterday she was at the [employer] and went to write a check could not do it herself. Had to have someone help her. Said she felt a little confused. Mild headache yesterday and this morning which is since resolved. She told them about this episode today at chemotherapy and they wonder evaluate the ER afterwards. She states her headache is gone. She denies any nausea, vomiting or diarrhea. No fever or dysuria. She did have a stroke and was treated at [facility] approximately 3 weeks ago. States she is feeling much better today. Physical Examination: Well-appearing older female. Vital signs are stable. She is afebrile. She does not look septic or toxic. She is in no distress. Sitting up in bed. HEENT exam unremarkable. Pupils round reactive light. Extra motions are intact. No facial droop. Normal speech. Oral mucous membranes. No signs of trauma to her face or scalp. Neck nontender. No meningismus. No lymphadenopathy. Lungs to auscultation bilaterally. Heart regular rhythm rate about 80 no murmur. Chest wall nontender. Abdomen soft and nontender. Normal bowel sounds no peritoneal signs. Patient is moving all 4 extremities. Neurovascularly intact. Lower extremities are nontender without edema or cords. She has normal 5 out of 5 carrier associate strength bilaterally. Dorsi plantar flexion intact. Neurologically she is awake and alert. Speaking normally. No facial droop. Equal symmetrical 5 out of 5 carrier associate strength. Fingertip to nose within normal limits bilaterally. Dorsi plantar flexion intact. Cognition within normal limits. Her NIH score is 0. When asked she knows the day of the week is Wednesday. She had trouble recalling the month but she also knew the president of [facility] and she knew where she was at. Test Results: Chest x-ray shows no acute abnormality read as normal both by myself and the radiologist. CT of the brain with and without IV contrast shows a meningioma which the patient has a prior history of. I do not see any other acute abnormalities. Also age-related changes. Read the same by the radiologist. Urinalysis is normal. No signs of infection. CBC and BMP are both pending. Repeat exam the patient is doing well at 1605 p.m. I discussed with both her and her significant other at bedside. More than likely she will be able to be discharged home. She will be turned over to the afternoon physician Dr. Watts to check her lab work. If no significant findings am comfortable with her being discharged home. Emergency Department Course and Treatment: Older female history of multiple myeloma on chemotherapy. Transient confusion yesterday as basically a normal exam today. Treatment Plan: [] Disposition: Discharge Impression: Transient Confusion resolved Status post recent stroke History of multiple myeloma This note was generated with [employer] dictation software. It may contain incorrect words, spelling, and punctuation that were not noted in review of the chart prior to signing ED Disposition - Plan for ED Patient: Referrals: Augusta Wilson DO [Primary Care Provider] -
[2018-12-21 14:54] LABS: Bacteria 0 SEEN /hpf (None Seen); Mucous, Urine 0 SEEN /hpf (<or=2+); Red Blood Cells-Urine 0 SEEN /hpf (0-5); Squamous Epithelial Cells - UA 0 SEEN /hpf (5-10); White Blood Cells 0 SEEN /hpf (0-5)
[2018-12-21 15:09] LABS: Color, Urine Yellow (Yellow); Glucose, Dipstick Normal (Normal); Ketone-Dipstick Negative (Negative); Leukocyte Esterase-Dipstick Negative /ul (Negative); Nitrite-Dipstick Negative (Negative); Occult Blood-Urine 10 /ul (Negative); Protein-Dipstick Negative (Negative); Specific Gravity, Urine 1.005 (1.002-1.030); Urine Bilirubin Dipstick Negative (Negative); Urine Clarity Clear (Clear); Urine Urobilinogen Normal (Normal)
--- NOTE | 2018-12-21 15:45 | NURSING ---
GREEN AND PURPLE HEMOLIZED
[2018-12-21] MEDS: 0.9% Normal Saline 1,000 ML 999 ML IV (16:00)
--- NOTE | 2018-12-21 16:16 | ED.DEP ---
ED Disposition - Plan for ED Patient: Disposition: Home or Assisted Living Instructions: ED Confusion Referrals: Augusta Wilson DO [Primary Care Provider] - 3-5 Days if not improving Additional Instructions: Follow-up with your doctor if confusion is not improving or getting worse.
[2018-12-21 16:28] VITALS: BP 146/50; PULSE 83; RESP 13; O2SAT 97
[2018-12-21 16:49] LABS: Absolute Neutrophil Count 4.5 X10^3/uL (2.0-7.7); Basophil# 0.05 X10^3/uL; Basophil% 0.6 % (0-1); Eosinophils% 3.7 % (0-5); Hematocrit 35.9 % (37-47); Hemoglobin 11.8 g/dl (12.0-15.0); Lymphocyte % 13.6 % (19-41); Mean Corp Hgb Conc 32.9 g/gl (32-36); Mean Corpuscular Hgb 33.7 pg (27.0-32.0); Mean Corpuscular Volume 102.6 fL (81-99); Mean Platelet Vol. 13.7 fl (6.2-12.0); Monocyte# 2.02 X10^3/uL; Monocyte% 24.9 % (0-10); Neutrophil # 4.54 X10^3/uL (2.7-7.7); Neutrophil % 56.1 % (47-70); Platelet Count 135 K/mm3 (150-450); RBC Distribution Width CV 13.9 % (11.6-14.6); White Blood Count 8.1 K/mm3 (4.4-11.0)
[2018-12-21 16:50] LABS: Differential Indicated SCAN CRITERIA MET; POSITIVE COUNT NO; POSITIVE DIFFERENTIAL YES; POSITIVE MORPHOLOGY YES
[2018-12-21 16:53] LABS: Anion Gap 3 (5-15); BUN 15 mg/dL (7-18); BUN/Creat Ratio 15.1 RATIO (10-20); Calcium,Total 8.6 mg/dL (8.5-10.1); Chloride 107 mmol/L (98-107); Creatinine, Serum 0.99 mg/dL (0.55-1.02); EST Glomerular Filtration Rate 58 mL/min (>60); Est Glom Filt Rate - Afr Amer 70 mL/min (>60); Estimated Creatinine Clearance 43.05 ml/min; Glucose 102 mg/dL (74-106); Potassium 3.8 mmol/L (3.5-5.1); Sodium Level 140 mmol/L (136-145)
--- NOTE | 2018-12-21 17:17 | ED.DCSUM_ITS ---
- ER Visit Summary Date of Service: 12/21/18 Patient was checked out to me with a CBC and Chem-7 pending. These have returned. Test Results: Chem-7 is normal. CBC shows an H&H of 11.8 and 35.9, platelets 135, lymphocytes 14, monocytes of 25, and immature granulocytes 1.1%. Emergency Department Course and Treatment: Patient is resting comfortably without complaint. Treatment Plan: Patient will be discharged. Please see Dr. Monsalve's dictation. This note was generated with [employer] dictation software. It may contain incorrect words, spelling, and punctuation that were not noted in review of the chart prior to signing ED Disposition - Plan for ED Patient: Disposition: Home or Assisted Living Instructions: ED Confusion Referrals: Augusta Wilson DO [Primary Care Provider] - 3-5 Days if not improving Additional Instructions: Follow-up with your doctor if confusion is not improving or getting worse.
[2018-12-21 17:30] VITALS: BP 136/59; PULSE 88; RESP 14; O2SAT 100
== END 2018-12-21 17:36 | disposition home or self-care (01) ==
PROVIDERS: Emergency Medicine; Emergency Provider Emergency Medicine; Family Provider Family Medicine; PCP Family Medicine
DX: R41.0 Disorientation, unspecified (principal); C90.00 Multiple myeloma not having achieved remission; Z86.73 Personal history of transient ischemic attack (TIA), and cerebral infarction without residual deficits
CPT/HCPCS: 36415; 70470; 71045; 80048; 81001; 85025; 96360; 96401; 99285; J7030; Q9967; A4216; J9041

== ENCOUNTER 2019-02-03 12:15 | Inpatient (IN) | payer MEDICARE, OTHER, SELFPAY ==
[2019-01-25 12:01] VITALS: BMI 26.9
[2019-02-03] VITALS (11 sets, daily range): BP systolic 135–165; BP diastolic 62–98; PULSE 71–90; RESP 15–23; TEMP 36.5–37; O2SAT 95–99; BMI 27.5; BMI 27.3
--- NOTE | 2019-02-03 13:00 | CT_ITS ---
STUDY: CT BRAIN WITHOUT CONTRAST REASON FOR EXAM: Female, 73 years old. History of fall. Patient is on anticoagulation. Patient has a history of a meningioma and multiple myeloma. RADIATION DOSAGE (If Supplied By Facility): CTDIvol = ( 60.81 ) mGy, DLP = ( 1112.69 ) mGycm TECHNIQUE: Transaxial CT imaging of the brain was performed without administration of intravenous contrast material. Individualized dose optimization techniques were used for this CT. COMPARISON: Comparison is made with prior study dated December 21, 2018. FINDINGS: Normal soft tissue structures. Normal calvarium. Once again, there is a 1.9 cm x 1.2 cm slightly hypodense well-defined nodule along the posterior aspect of the left parietal lobe adjacent to the falx. This most likely represents the known meningioma. Normal size ventricles and extra-axial spaces for the patient's age. Normal white matter tracts of the cerebral hemispheres. Normal basal ganglia and thalami. Normal brainstem. Normal cerebellum. There is no intracranial hemorrhage. There are no findings of an acute ischemic infarction. Normal visualized paranasal sinuses. CT/Brain/Head without Contrast IMPRESSION: Stable examination. No evidence of intracranial hemorrhage. Electronically Signed: Kenyon Carmen, at 14:18 EDT , Service support ,
--- NOTE | 2019-02-03 13:01 | EKG12_ITS ---
Test Reason : FALL/DIZZY Blood Pressure : / mmHG Vent. Rate : 072 BPM Atrial Rate : 072 BPM P-R Int : 164 ms QRS Dur : 082 ms QT Int : 398 ms P-R-T Axes : 053 -03 016 degrees QTc Int : 435 ms Normal sinus rhythm Inferior infarct , age undetermined Cannot rule out Anterior infarct (cited on or before 12-NOV-2018), age undetermined Abnormal ECG Confirmed by KASSANDRA GARNICA, CHRIS ([id number]), assistant editor TIMMY VALENZUELA ([id number]) on 02/07/2019 8:48:26 AM Referred By: Ar Rodney Confirmed By:CHRIS CANNON MD
--- NOTE | 2019-02-03 13:37 | ED.VISSUMM ---
- ER Visit Summary Date of Service: 02/03/19 Chief Complaint: Dizziness and fall History of Present Illness: The patient is a 73 F who presents for episode of dizziness resulting in a fall. Patient states she was walking in her kitchen and went to let her dog out when she suddenly started spinning. She lost her balance and fell, hitting her head on the door frame and then landing on her hips on the floor. Her attempted to help her up but she had difficulty balancing and was unable to walk straight. When sitting in a chair if she leaned forward she felt like she was falling forward and if she tilted her head back she felt like she was falling back. Patient currently is not having any dizziness or spinning sensation. She did hit the back of her head and is on Xarelto. She is also complaining of bilateral knee pain and left hip pain. Patient has a history of multiple myeloma and has had 2 strokes in the last week, one affecting her speech and one affecting her left hand. Symptoms have resolved. She was taken off of the chemotherapeutic agent 3 weeks ago that the doctor thought was responsible for the strokes. Patient is on Xarelto. She has a history of a meningioma in the brain that required gamma radiation. Physical Examination: Vital signs: afebrile, hemodynamically stable, no hypoxia on room air General: well nourished, well developed, in no distress Skin: warm, dry, no rash, no pallor HEENT: normocephalic, tenderness to the posterior scalp without any hematoma, abrasion or laceration; PERRL, EOMI, no nystagmus, moist mucous membranes Cardiovascular: regular rate and rhythm without murmurs, no peripheral edema, 2+ pulses all distal extremities Respiratory: No increased work of breathing, lungs are clear to auscultation bilaterally, no rales, rhonchi or wheezing Abdominal: Abdomen is soft, nontender with normoactive bowel sounds, no guarding or rebound, no masses MSK: Moves all extremities, no deformities, normal strength, abrasions to the bilateral knees, full patient range of motion of all joints, negative logroll in the left hip. Neuro: Awake and alert, oriented ?4. No facial droop, sensation and motor function intact and symmetric, normal [id number] and kdxs-cs-jrhd testing Test Results: Abnormal Lab Results 02/03/19 02/03/19 02/03/19 13:30 13:30 13:30 WBC 6.9 RBC 3.84 L Hgb 12.8 Hct 38.3 MCV 99.7 H MCH 33.3 H MCHC 33.4 RDW 13.9 RDW Differential 50.0 H Plt Count 96 L MPV 12.9 H Immature Gran % (Auto) 0.300 Neut % (Auto) 39.5 L Lymph % (Auto) 16.4 L [place] % (Auto) 41.2 H Eos % (Auto) 2.5 Baso % (Auto) 0.1 Absolute Neuts (auto) 2.7 Absolute Lymphs (auto) 1.12 Total Counted Not Reportable Differential Comment COMMENT PT Cancelled INR Cancelled APTT Cancelled Sodium 139 Potassium 5.5 H Chloride 106 Carbon Dioxide 30.0 Anion Gap 3 L BUN 17 Creatinine 0.96 Estim Creat Clear Calc 42.53 Est GFR (MDRD) Af Amer 73 Est GFR (MDRD) Non-Af 60 BUN/Creatinine Ratio 17.7 Glucose 83 Calcium 8.9 Total Bilirubin 0.50 AST 41 H ALT 26 Alkaline Phosphatase 87 Troponin I < 0.015 Total Protein 7.3 Albumin 3.5 Globulin 3.8 Albumin/Globulin Ratio 0.9 Urine Color Urine Clarity Urine pH Ur Specific [place] Urine Protein Urine Glucose (UA) Urine Ketones Urine Occult Blood Urine Nitrite Urine Bilirubin Urine Urobilinogen Ur Leukocyte Esterase Urine RBC Urine WBC Ur Squamous Epith Cells Urine Bacteria Urine Mucus 02/03/19 02/03/19 14:20 14:30 WBC RBC Hgb Hct MCV MCH MCHC RDW RDW Differential Plt Count MPV Immature Gran % (Auto) Neut % (Auto) Lymph % (Auto) [place] % (Auto) Eos % (Auto) Baso % (Auto) Absolute Neuts (auto) Absolute Lymphs (auto) Total Counted Differential Comment PT 32.0 H INR 3.1 APTT 47.9 H Sodium Potassium Chloride Carbon Dioxide Anion Gap BUN Creatinine Estim Creat Clear Calc Est GFR (MDRD) Af Amer Est GFR (MDRD) Non-Af BUN/Creatinine Ratio Glucose Calcium Total Bilirubin AST ALT Alkaline Phosphatase Troponin I Total Protein Albumin Globulin Albumin/Globulin Ratio Urine Color Yellow Urine Clarity Clear Urine pH 7.0 Ur Specific [place] 1.010 Urine Protein Negative Urine Glucose (UA) Normal Urine Ketones Negative Urine Occult Blood 50 H Urine Nitrite Negative Urine Bilirubin Negative Urine Urobilinogen Normal Ur Leukocyte Esterase Negative Urine RBC 0 SEEN Urine WBC 0 SEEN Ur Squamous Epith Cells 0 SEEN Urine Bacteria 0 SEEN Urine Mucus 0 SEEN Clinical Impression(s) from Imaging Studies Brain CT 02/03/19 13:00 IMPRESSION: Stable examination. No evidence of intracranial hemorrhage. Electronically Signed: Kenyon Kermit, at 14:18 EDT , Service support , Hip/Pelvis X-Ray 02/03/19 13:45 IMPRESSION: Degenerative changes of the sacroiliac joints. No fracture is seen. Electronically Signed: Kenyon Kermit, at 14:19 EDT , Service support , Chest X-Ray 02/03/19 13:56 IMPRESSION: No acute abnormality is seen. Electronically Signed: Kenyon Kermit, at 14:20 EDT , Service support , Medications Given Discontinued Medications Aspirin (Aspirin) 325 mg PO X1 ONE Stop: 02/03/19 14:56 Last Admin: 02/03/19 15:29 Dose: 325 mg Sodium Chloride () 1,000 mls @ 1,000 mls/hr IV .Q1H ONE Stop: 02/03/19 13:59 Last Admin: 02/03/19 14:05 Dose: 1,000 mls/hr Emergency Department Course and Treatment: Patient presents after an episode of what sounds like vertigo that resulted in her falling and hitting her head. Because patient is on Xarelto, head CT was performed and showed no intracranial hemorrhage. Patient also complaining of left hip pain but had full active range of motion. X-ray showed no fracture. Patient does have a history of recent strokes and multiple myeloma, making her acute onset vertigo concerning for possible posterior circulation stroke. Patient's EKG showed sinus rhythm without ischemic changes. No A. fib. Labs showed mild hyperkalemia 5.5 but moderate hemolysis. INR 3.1. Troponin negative. Chest x-ray showed no acute process. Patient was given aspirin after passing a swallow evaluation. Patient also given IV fluids for hydration. Ultrasound was performed of the lower extremities due to patient's right lower extremity erythema, calf tenderness and tenderness in the posterior distal lower leg. DVT is unlikely due to patient's use of Xarelto, however patient had no improvement in her redness and pain with antibiotic treatment, and there is been no change in the appearance or size of the erythema which makes cellulitis less likely. Ultrasounds were negative. Patient would benefit from admission for further neurologic work-up for concern for posterior circulation stroke or other cause of acute vertigo in a patient with a history of multiple myeloma and recent strokes. Patient was discussed with the hospitalist for admission. MRI brain was ordered and performed prior to patient being transported up to the floor. Patient was reevaluated by nursing and was assisted to a bedside commode. Patient was unable to balance or walk on her own at that time. Later patient again was ambulated and at that time was able to ambulate unassisted. The improvement of the symptoms is concerning for TIA. Treatment Plan: [] Disposition: [] Impression: Acute vertigo, concern for central origin; closed head injury on Xarelto; history of multiple myeloma and recent strokes This note was generated with [employer] dictation software. It may contain incorrect words, spelling, and punctuation that were not noted in review of the chart prior to signing ED Disposition - Plan for ED Patient:
--- NOTE | 2019-02-03 13:41 | ED.DCSUM_ITS ---
- ER Visit Summary Date of Service: 02/03/19 Chief Complaint: Dizziness and fall History of Present Illness: The patient is a 73 F who presents for episode of dizziness resulting in a fall. Patient states she was walking in her kitchen and went to let her dog out when she suddenly started spinning. She lost her balance and fell, hitting her head on the door frame and then landing on her hips on the floor. Her attempted to help her up but she had difficulty balancing and was unable to walk straight. When sitting in a chair if she leaned forward she felt like she was falling forward and if she tilted her head back she felt like she was falling back. Patient currently is not having any d izziness or spinning sensation. She did hit the back of her head and is on Xarelto. She is also complaining of bilateral knee pain and left hip pain. Patient has a history of multiple myeloma and has had 2 strokes in the last week, one affecting her speech and one affecting her left hand. Symptoms have resolved. She was taken off of the chemotherapeutic agent 3 weeks ago that the doctor thought was responsible for the strokes. Patient is on Xarelto. She has a history of a meningioma in the brain that required gamma radiation. Physical Examination: Vital signs: afebrile, hemodynamically stable, no hypoxia on room air General: well nourished, well developed, in no distress Skin: warm, dry, no rash, no pallor HEENT: normocephalic, tenderness to the posterior scalp without any hematoma, abrasion or laceration; PERRL, EOMI, no nystagmus, moist mucous membranes Cardiovascular: regular rate and rhythm without murmurs, no peripheral edema, 2+ pulses all distal extremities Respiratory: No increased work of breathing, lungs are clear to auscultation bilaterally, no rales, rhonchi or wheezing Abdominal: Abdomen is soft, nontender with normoactive bowel sounds, no guarding or rebound, no masses MSK: Moves all extremities, no deformities, normal strength, abrasions to the bilateral knees, full patient range of motion of all joints, negative logroll in the left hip. Neuro: Awake and alert, oriented ?4. No facial droop, sensation and motor function intact and symmetric, normal vcrcay-kq-orxe and lepv-mi-mthy testing Test Results: Abnormal Lab Results 02/03/19 02/03/19 02/03/19 13:30 13:30 13:30 WBC 6.9 RBC 3.84 L Hgb 12.8 Hct 38.3 MCV 99.7 H MCH 33.3 H MCHC 33.4 RDW 13.9 RDW Differential 50.0 H Plt Count 96 L MPV 12.9 H Immature Gran % (Auto) 0.300 Neut % (Auto) 39.5 L Lymph % (Auto) 16.4 L [place] % (Auto) 41.2 H Eos % (Auto) 2.5 Baso % (Auto) 0.1 Absolute Neuts (auto) 2.7 Absolute Lymphs (auto) 1.12 Total Counted Not Reportable Differential Comment COMMENT PT Cancelled INR Cancelled APTT Cancelled Sodium 139 Potassium 5.5 H Chloride 106 Carbon Dioxide 30.0 Anion Gap 3 L BUN 17 Creatinine 0.96 Estim Creat Clear Calc 42.53 Est GFR (MDRD) Af Amer 73 Est GFR (MDRD) Non-Af 60 BUN/Creatinine Ratio 17.7 Glucose 83 Calcium 8.9 Total Bilirubin 0.50 AST 41 H ALT 26 Alkaline Phosphatase 87 Troponin I < 0.015 Total Protein 7.3 Albumin 3.5 Globulin 3.8 Albumin/Globulin Ratio 0.9 Urine Color Urine Clarity Urine pH Ur Specific [place] Urine Protein Urine Glucose (UA) Urine Ketones Urine Occult Blood Urine Nitrite Urine Bilirubin Urine Urobilinogen Ur Leukocyte Esterase Urine RBC Urine WBC Ur Squamous Epith Cells Urine Bacteria Urine Mucus 02/03/19 02/03/19 14:20 14:30 WBC RBC Hgb Hct MCV MCH MCHC RDW RDW Differential Plt Count MPV Immature Gran % (Auto) Neut % (Auto) Lymph % (Auto) [place] % (Auto) Eos % (Auto) Baso % (Auto) Absolute Neuts (auto) Absolute Lymphs (auto) Total Counted Differential Comment PT 32.0 H INR 3.1 APTT 47.9 H Sodium Potassium Chloride Carbon Dioxide Anion Gap BUN Creatinine Estim Creat Clear Calc Est GFR (MDRD) Af Amer Est GFR (MDRD) Non-Af BUN/Creatinine Ratio Glucose Calcium Total Bilirubin AST ALT Alkaline Phosphatase Troponin I Total Protein Albumin Globulin Albumin/Globulin Ratio Urine Color Yellow Urine Clarity Clear Urine pH 7.0 Ur Specific [place] 1.010 Urine Protein Negative Urine Glucose (UA) Normal Urine Ketones Negative Urine Occult Blood 50 H Urine Nitrite Negative Urine Bilirubin Negative Urine Urobilinogen Normal Ur Leukocyte Esterase Negative Urine RBC 0 SEEN Urine WBC 0 SEEN Ur Squamous Epith Cells 0 SEEN Urine Bacteria 0 SEEN Urine Mucus 0 SEEN Clinical Impression(s) from Imaging Studies Brain CT 02/03/19 13:00 IMPRESSION: Stable examination. No evidence of intracranial hemorrhage. Electronically Signed: Kenyon Kermit, at 14:18 EDT , Service support , Hip/Pelvis X-Ray 02/03/19 13:45 IMPRESSION: Degenerative changes of the sacroiliac joints. No fracture is seen. Electronically Signed: Kenyon Kermit, at 14:19 EDT , Service support , Chest X-Ray 02/03/19 13:56 IMPRESSION: No acute abnormality is seen. Electronically Signed: Kenyon Kermit, at 14:20 EDT , Service support , Medications Given Discontinued Medications Aspirin (Aspirin) 325 mg PO X1 ONE Stop: 02/03/19 14:56 Last Admin: 02/03/19 15:29 Dose: 325 mg Sodium Chloride () 1,000 mls @ 1,000 mls/hr IV .Q1H ONE Stop: 02/03/19 13:59 Last Admin: 02/03/19 14:05 Dose: 1,000 mls/hr Emergency Department Course and Treatment: Patient presents after an episode of what sounds like vertigo that resulted in her falling and hitting her head. Because patient is on Xarelto, head CT was performed and showed no intracranial hemorrhage. Patient also complaining of left hip pain but had full active range of motion. X-ray showed no fracture. Patient does have a history of recent strokes and multiple myeloma, making her acute onset vertigo concerning for possible posterior circulation stroke. Patient's EKG showed sinus rhythm without ischemic changes. No A. fib. Labs showed mild hyperkalemia 5.5 but moderate hemolysis. INR 3.1. Troponin negative. Chest x-ray showed no acute process. Patient was given aspirin after passing a swallow evaluation. Patient also given IV fluids for hydration. Ultrasound was performed of the lower extremities due to patient's right lower extremity erythema, calf tenderness and tenderness in the posterior distal lower leg. DVT is unlikely due to patient's use of Xarelto, however patient had no improvement in her redness and pain with antibiotic treatment, and there is been no change in the appearance or size of the erythema which makes cellulitis less likely. Ultrasounds were negative. Patient would benefit from admission for further neurologic work-up for concern for posterior circulation stroke or other cause of acute vertigo in a patient with a history of multiple myeloma and recent strokes. Patient was discussed with the hospitalist for admission. MRI brain was ordered and performed prior to patient being transported up to the floor. Patient was reevaluated by nursing and was assisted to a bedside commode. Patient was unable to balance or walk on her own at that time. Later patient again was ambulated and at that time was able to ambulate unassisted. The improvement of the symptoms is concerning for TIA. Treatment Plan: [] Disposition: [] Impression: Acute vertigo, concern for central origin; closed head injury on Xarelto; history of multiple myeloma and recent strokes This note was generated with [employer] dictation software. It may contain incorrect words, spelling, and punctuation that were not noted in review of the chart prior to signing ED Disposition - Plan for ED Patient:
--- NOTE | 2019-02-03 13:45 | RAD_ITS ---
STUDY: X-RAY - PELVIS AND LEFT HIP REASON FOR EXAM: Female, 73 years old. Left hip pain following a fall. History of multiple myeloma. TECHNIQUE: 3 views of the pelvis and hip. COMPARISON: None. FINDINGS: There is a non-specific bowel gas pattern. Normal visualized soft tissue structures. There is narrowing with cortical sclerosis and osteophyte formation of the sacroiliac joint consistent with degenerative osteoarthritic changes. Normal bilateral superior and inferior pubic rami. Normal pubic symphysis. Normal bilateral ischial tuberosities. Normal visualized femoral head. Normal acetabulum. Normal hip joint. RAD/HIP, UNI W/ Pelvis 2-3 Views IMPRESSION: Degenerative changes of the sacroiliac joints. No fracture is seen. Electronically Signed: Kenyon Carmen, at 14:19 EDT , Service support ,
[2019-02-03 13:54] LABS: Absolute Lymphocyte Count 1.12 X10^3/ul (0.83-4.51); Absolute Neutrophil Count 2.7 X10^3/uL (2.0-7.7); Basophil# 0.01 X10^3/uL; Basophil% 0.1 % (0-1); Eosinophil# 0.17 X10^3/uL; Eosinophils% 2.5 % (0-5); Hematocrit 38.3 % (37-47); Hemoglobin 12.8 g/dl (12.0-15.0); Lymphocyte # 1.12 X10^3/ul (4.0); Lymphocyte % 16.4 % (19-41); Mean Corp Hgb Conc 33.4 g/gl (32-36); Mean Corpuscular Hgb 33.3 pg (27.0-32.0); Mean Corpuscular Volume 99.7 fL (81-99); Mean Platelet Vol. 12.9 fl (6.2-12.0); Monocyte# 2.82 X10^3/uL; Monocyte% 41.2 % (0-10); Neutrophil # 2.71 X10^3/uL (2.7-7.7); Neutrophil % 39.5 % (47-70); Platelet Count 96 K/mm3 (150-450); RBC Distribution Width CV 13.9 % (11.6-14.6); Red Blood Count 3.84 M/mm3 (4.2-5.4); White Blood Count 6.9 K/mm3 (4.4-11.0)
[2019-02-03 13:55] LABS: Differential Indicated SCAN CRITERIA MET; POSITIVE COUNT NO; POSITIVE DIFFERENTIAL YES; POSITIVE MORPHOLOGY NO
--- NOTE | 2019-02-03 13:56 | RAD_ITS ---
STUDY: X-RAY CHEST REASON FOR EXAM: Female, 73 years old. Cough. Chemotherapy. Patient has a history of multiple myeloma. TECHNIQUE: Single AP portable view of the chest. COMPARISON: Comparison is made with prior study dated December 21, 2018. FINDINGS: EKG electrodes are seen. Stable mild elevation of the right hemidiaphragm. The lungs are clear. Hyperinflation. There is no demonstrated pleural abnormality. Normal size heart. Normal mediastinum and shashi. Normal visualized pulmonary arteries. There is atherosclerotic calcification of the aortic arch with tortuosity. Normal visualized thoracic spine. Normal visualized ribs, clavicles, and shoulders. There is no demonstrated abnormality of the visualized soft tissue structures of the upper abdomen. RAD/Chest 1 View (Portable) IMPRESSION: No acute abnormality is seen. Electronically Signed: Kenyon Carmen, at 14:20 EDT , Service support ,
[2019-02-03] MEDS: 0.9% Normal Saline 1,000 ML 1000 ML IV (14:05)
--- NOTE | 2019-02-03 14:05 | NURSING ---
COAGS TOO SHORT, NEEDS REDRAWN
[2019-02-03 14:07] LABS: ALB/GLOB Ratio 0.9 RATIO (0.9-2.4); AST(SGOT) 41 U/L (15-37); Alanine Aminotransfer ALT/SGPT 26 U/L (13-56); Albumin, Serum 3.5 g/dL (3.2-5.0); Alkaline Phosphatase 87 U/L (45-117); Anion Gap 3 (5-15); BUN 17 mg/dL (7-18); BUN/Creat Ratio 17.7 RATIO (10-20); Calcium,Total 8.9 mg/dL (8.5-10.1); Chloride 106 mmol/L (98-107); Creatinine, Serum 0.96 mg/dL (0.55-1.02); EST Glomerular Filtration Rate 60 mL/min (>60); Est Glom Filt Rate - Afr Amer 73 mL/min (>60); Estimated Creatinine Clearance 42.53 ml/min; Globulin 3.8 g/dL (2.2-4.2); Glucose 83 mg/dL (74-106); Potassium 5.5 mmol/L (3.5-5.1); Protein, Total 7.3 g/dL (6.4-8.2); Sodium Level 139 mmol/L (136-145)
[2019-02-03 14:40] LABS: Bacteria 0 SEEN /hpf (None Seen); Mucous, Urine 0 SEEN /hpf (<or=2+); Red Blood Cells-Urine 0 SEEN /hpf (0-5); Squamous Epithelial Cells - UA 0 SEEN /hpf (5-10); White Blood Cells 0 SEEN /hpf (0-5)
[2019-02-03 14:42] LABS: International Normalized Ratio 3.1
[2019-02-03 14:43] LABS: Partial Thromboplast Time 47.9 Seconds (24.1-36.2)
[2019-02-03 14:47] LABS: Color, Urine Yellow (Yellow); Glucose, Dipstick Normal (Normal); Ketone-Dipstick Negative (Negative); Leukocyte Esterase-Dipstick Negative /ul (Negative); Nitrite-Dipstick Negative (Negative); Occult Blood-Urine 50 /ul (Negative); Protein-Dipstick Negative (Negative); Urine Bilirubin Dipstick Negative (Negative); Urine Clarity Clear (Clear); Urine Urobilinogen Normal (Normal)
[2019-02-03] MEDS: Aspirin 325 MG Tablet PO (15:29)
--- NOTE | 2019-02-03 15:42 | NURSING ---
DR RUIZ FOR DR DEL ROSARIO
--- NOTE | 2019-02-03 15:46 | MRI_ITS ---
We are attempting to reach an attending provider to discuss findings. An addendum with communication details will be sent when the communication is complete. STUDY: MRI BRAIN WITHOUT CONTRAST REASON FOR EXAM: Female, 73 years old. Severe vertigo. History of stroke, multiple myeloma, gamma knife for meningioma. TECHNIQUE: Standardized multiplanar fat and water weighted pulse sequences were obtained. COMPARISON: CT head 02/03/2019, 12/21/2018. FINDINGS: Mild, gyriform restricted diffusion is noted in the right frontal lobe parasagittally, consistent with a small acute infarct. There is a 1.9 x 1.3 cm extra-axial lesion in the left parietal lobe parasagittally. This is predominantly isointense on T1-weighted imaging and mildly hyperintense on T2-weighted imaging. This corresponds to the lesion seen on prior CT scans. There is a 5 mm extra-axial lesion in the left frontal lobe parasagittally, seen on series 9 image 22. There is mild cerebral atrophy with widening of the extra-axial spaces and ventricular dilatation. There are a limited number of small white matter hyperintensities, distributed throughout the deep white matter tracts of the cerebral hemispheres, consistent with mild chronic white matter ischemic changes. Normal bilateral basal ganglia. Normal thalami. There is no extra-axial fluid accumulation. Normal flow voids within the major intracranial circulation suggesting patency by spin echo criteria. Normal sella turcica, pituitary gland, infundibular stalk, optic chiasm and hypothalamus. Normal tectal plate and pineal gland. Normal cerebellum. Normal basal cisterns. Normal bilateral temporal bones. Normal bilateral internal auditory canals. No demonstrated orbital abnormality, within the constraints of a routine brain study. Normal visualized paranasal sinuses. Normal calvarium and skull base. Normal visualized soft tissue structures. MRI/Brain without Contrast IMPRESSION: 1. Acute right posterior frontal infarct in the right pericallosal arterial distribution. 2. A 1.9 cm extra-axial left parietal lesion, probable meningioma. 3. A 5 mm left frontal extra-axial lesion, possible meningioma. Given the history of multiple myeloma, consider nonemergent contrast sequences for further evaluation. 4. Mild microvascular ischemic changes. Mild atrophy. Electronically Signed: Leslie Hutchins MD at 20:29 EDT Tel , Service support ,
--- NOTE | 2019-02-03 15:55 | NURSING ---
PCU VERTIGO KOTSONIS
--- NOTE | 2019-02-03 16:10 | VDLE_ITS ---
Reason For Study: SWELLING RIGHT LEFT GSV is normal. GSV is normal. CFV is compressible, spontaneous, phasic, CFV is compressible, spontaneous, phasic, competent and demonstrates normal competent, and demonstrates normal augmentation. augmentation. FV is compressible, spontaneous, phasic, FV is compressible, spontaneous, phasic, competent and demonstrates normal competent and demonstrates normal augmentation. augmentation. POP V is compressible, spontaneous, phasic, POP V is compressible, spontaneous, phasic, competent and demonstrates normal competent and demonstrates normal augmentation. augmentation. T/P Trunk is compressible. T/P Trunk is compressible. PTV is compressible. PTV is compressible. RT PerV is compressible. LT PerV is compressible. Procedure Exam performed portable in ED. A preliminary report was called and/or faxed to ED. Interpretation Summary Deep veins of the lower extremities are bilaterally patent and compressible segmentally. There is no evidence of deep vein thrombosis on either side. Valvular competence appears intact within the proximal deep venous systems bilaterally. The greater saphenous veins appear bilaterally patent and compressible segmentally. Ordering Physician: Augusta Torres Referring Physician: AUGUSTA FELIX Performed By: Yolis Nelson, BALWINDER, RVT
--- NOTE | 2019-02-03 17:05 | CASEMGMT ---
RN CM Assessment Introduced role of RN CM to patient and patient at bedside.? Patient is alert, oriented and able?to participate in RN CM Assessment. ?Care providers, pharmacy, and demographics verified. Presentation: Dizziness with fall, hit head on door frame and landed on hip. On Xarelto. H/o Multiple Myeloma and has had two strokes in the last week, taken off Chemo agent [id number] ago. H/o Meningioma in the Brain required gamma radiation. Admit Dx: Vertigo Re-Admit: No Barriers/Issues: None. PCP: Augusta Wilson Specialists: Onc- Dr Gómez, Neuro- In [place] Preferred Pharmacy: [facility], [employer] Insurance: [employer] Rx Benefit:?Yes LNOK: Jerod Singh LW/HPOA: Yes Both, aware not on file at [facility], HPOA- Jerod Singh Living Arrangements:?Lives with in a 2 story home, Bedroom on top floor but could accommodate on Lower fl if needed, 2 steps to enter. ADL?s: Independent with ambulation and ADL's Transportation: Patient drives, upon DC DME: None. has a walker with chair if she ever needed to use it. HHC: None, No preference on Agency if needed. SNF: None Goal: Home, states that her grandson has a graduation green party tomorrow afternoon that she was hoping to get out if the hospital before to go. Does not think will have any other needs but open to HH PT if recommended. DC PLAN: Home with possible HH PT. ADONIS Caceres
--- NOTE | 2019-02-03 17:46 | PCM.HP.STD ---
Problem List (1) Cerebrovascular disease Status: Chronic (2) PFO (patent foramen ovale) Status: Ruled-out Comment: [facility] November 2018 at [facility] (3) Macrocytosis Status: Chronic (4) MDS (myelodysplastic syndrome), low grade Status: Chronic (5) Myeloma Status: Chronic Qualifiers: (6) Lung nodule Status: Chronic Comment: Left upper lobe, May 2018 (7) Liver lesion, right lobe Status: Chronic Comment: Negative biopsy for malignancy June 29, 2018 (8) Anemia Status: Chronic (9) Tremor Status: Chronic (10) Cognitive dysfunction Status: Chronic (11) Meningioma Status: Chronic History of Present Illness Date of Admission: 02/03/19 Chief Complaint: Dizziness with fall. The patient is a 73 year old F who presents the emergency room due to sudden onset vertigo and suspected syncopal episode. She reports she was letting the dog out when she remembers sliding to the ground. She called for her who attempted to help her up however she had severe dizziness and could not walk. She went to the emergency room at that time. She states she had 2 strokes approximately 1 month ago where she was treated at [facility] and her strokes were reported to be due to a chemotherapy medication she was taking at the time. She was discharged on Xarelto. She denies unilateral weakness, numbness, tingling, vision changes. She also reports right medial ankle redness and warmth. She reports she was being treated by her primary care provider for cellulitis however this has not improved. She has a history of CVA, MDS, multiple myeloma, essential tremor, brain meningioma. Past Medical History Past Medical History (Chronic Problems): Chronic Problems (Last Reviewed 01/25/19 @ 11:59 by Anika Choudhary) Cerebrovascular disease (Chronic) Macrocytosis (Chronic) MDS (myelodysplastic syndrome), low grade (Chronic) Myeloma (Chronic) Lung nodule (Chronic) Left upper lobe, May 2018 Liver lesion, right lobe (Chronic) Negative biopsy for malignancy June 29, 2018 Anemia (Chronic) Tremor (Chronic) Cognitive dysfunction (Chronic) Meningioma (Chronic) Medical History: Medical History (Last Reviewed 01/25/19 @ 11:59 by Anika Choudhary) Cellulitis L03.90 left eye History of hysterectomy Z90.710 Meningioma D32.9 Gamma knife at [facility] ~2000 Osteopenia M85.80 Stroke I63.9 X2 - HOSPITALIZATION FOR 5 DAYS Allergies morphine Adverse Reaction (Severe, Verified 02/03/19 12:19) Nausea Home Medications: Ambulatory Orders Medication Instructions Recorded Gabapentin [Neurontin] 100 mg PO BID 03/24/16 Bortezomib SC [Velcade SC] 3.5 mg SQ QWEEK 11/11/18 Dexamethasone [Decadron] 40 mg PO QWEEK #40 tablet 01/11/19 Rivaroxaban [Xarelto] 20 mg PO DAILY 01/11/19 Acyclovir 400 mg PO BID 90 Days #180 tablet 01/18/19 Calcium (Elemental) [Os-Nils 500] 500 mg PO DAILY 02/03/19 Cholecalciferol (Vitamin D3) 5,000 unit PO DAILY 02/03/19 [Vitamin D3] Ciprofloxacin HCl 500 mg PO DAILY 02/03/19 Escitalopram Oxalate [Lexapro] 10 mg PO DAILY 02/03/19 Multivitamin with Minerals 1 tab PO DAILY 02/03/19 [Multiple Vitamin] Surgical History: Surgical History (Last Reviewed 01/25/19 @ 11:59 by Anika Choudhary) History of cholecystectomy Z90.49 Surgical History: cholecystectomy, hysterectomy, tonsillectomy Psychiatric History: No pertinent psych hx 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[employer]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 HE[employer] NURSING history Lives: Spouse/ Significant Other Smoking Status: Never smoker Alcohol: None Drugs: None - *Family History Maternal Family History: Family History (Last Reviewed 02/03/19 @ 17:48 by CHARLES Sanchez) Mother Breast cancer Sister Breast cancer Aunt Breast cancer Daughter History of malignant melanoma Father Brain cancer Brother Lung cancer Paternal Family History: Family History (Last Reviewed 02/03/19 @ 17:48 by CHARLES Sanchez) Mother Breast cancer Sister Breast cancer Aunt Breast cancer Daughter History of malignant melanoma Father Brain cancer Brother Lung cancer Review of Systems Constitutional: Denies: Chills, Fever, Weight Change HEENT: Denies: Head Aches, Sinus Congestion, Sinus Drainage Cardiovascular: Denies: Chest Pain, Palpitations Respiratory: Denies: Cough, Shortness of breath at rest, Sputum production Gastrointestinal: Denies: Abdominal Pain, Nausea, Vomiting Genitourinary: Denies: Dysuria Musculoskeletal: Denies: Joint Pain, Joint Tenderness Skin: Reports: - - Right medial ankle erythema, warmth and burning. Neurological: Reports: Balance problems, - - Dizziness. Denies: Focal weakness, Numbness, Tingling Psychiatric: Denies: Anxiety, Depression, Homicidal Ideations, Suicidal Ideations Hematologic/ Lymphatic: Denies: Easy Bruising, Easy Bleeding VTE Information - Inpt Only VTE Present on Admission: No VTE Mechan Device Prophylaxis: None VTE Pharm Prophylaxis ordered?: Yes - Physical Exam General: Alert, Oriented x3, Cooperative HEENT: Atraumatic, PERRLA, EOMI, Normocephalic Neck: Supple, No JVD, Negative Carotid Bruits Lungs: Clear to auscultation, Normal air movement Cardiovascular: Regular rate, Regular Rhythm, Normal S1, Normal S2, No murmurs Abdomen: Bowel Sounds Present, Soft, Non Tender, Non-Distended Extremities: No clubbing, No cyanosis, No edema, Capillary Refill Less than 3 Seconds Skin: No rashes, No breakdown Musculoskeletal: No Tenderness to Palpation of Joints or Extremities Neurological: Cranial nerves II-XII grossly intact, Neuro grossly intact Psych/Mental Status: Normal Affect, Appropriate Vital Signs Temp Pulse Resp BP Pulse Ox 98.1 F 79 15 165/73 H 98 02/03/19 17:39 02/03/19 17:39 02/03/19 17:39 02/03/19 17:39 02/03/19 17:39 Oxygen Delivery Method Room Air Weight: 155 lb 6.814 oz Body Mass Index (BMI) 27.5 Laboratory Tests Past 24 Hrs 02/03/19 02/03/19 02/03/19 13:30 13:30 13:30 WBC 6.9 RBC 3.84 L Hgb 12.8 Hct 38.3 MCV 99.7 H MCH 33.3 H MCHC 33.4 RDW 13.9 RDW Differential 50.0 H Plt Count 96 L MPV 12.9 H Immature Gran % (Auto) 0.300 Neut % (Auto) 39.5 L Lymph % (Auto) 16.4 L [place] % (Auto) 41.2 H Eos % (Auto) 2.5 Baso % (Auto) 0.1 Absolute Neuts (auto) 2.7 Absolute Lymphs (auto) 1.12 Total Counted Not Reportable Differential Comment COMMENT PT Cancelled INR Cancelled APTT Cancelled Sodium 139 Potassium 5.5 H Chloride 106 Carbon Dioxide 30.0 Anion Gap 3 L BUN 17 Creatinine 0.96 Estim Creat Clear Calc 42.53 Est GFR (MDRD) Af Amer 73 Est GFR (MDRD) Non-Af 60 BUN/Creatinine Ratio 17.7 Glucose 83 Calcium 8.9 Total Bilirubin 0.50 AST 41 H ALT 26 Alkaline Phosphatase 87 Troponin I < 0.015 Total Protein 7.3 Albumin 3.5 Globulin 3.8 Albumin/Globulin Ratio 0.9 Urine Color Urine Clarity Urine pH Ur Specific [place] Urine Protein Urine Glucose (UA) Urine Ketones Urine Occult Blood Urine Nitrite Urine Bilirubin Urine Urobilinogen Ur Leukocyte Esterase Urine RBC Urine WBC Ur Squamous Epith Cells Urine Bacteria Urine Mucus 02/03/19 02/03/19 14:20 14:30 WBC RBC Hgb Hct MCV MCH MCHC RDW RDW Differential Plt Count MPV Immature Gran % (Auto) Neut % (Auto) Lymph % (Auto) [place] % (Auto) Eos % (Auto) Baso % (Auto) Absolute Neuts (auto) Absolute Lymphs (auto) Total Counted Differential Comment PT 32.0 H INR 3.1 APTT 47.9 H Sodium Potassium Chloride Carbon Dioxide Anion Gap BUN Creatinine Estim Creat Clear Calc Est GFR (MDRD) Af Amer Est GFR (MDRD) Non-Af BUN/Creatinine Ratio Glucose Calcium Total Bilirubin AST ALT Alkaline Phosphatase Troponin I Total Protein Albumin Globulin Albumin/Globulin Ratio Urine Color Yellow Urine Clarity Clear Urine pH 7.0 Ur Specific [place] 1.010 Urine Protein Negative Urine Glucose (UA) Normal Urine Ketones Negative Urine Occult Blood 50 H Urine Nitrite Negative Urine Bilirubin Negative Urine Urobilinogen Normal Ur Leukocyte Esterase Negative Urine RBC 0 SEEN Urine WBC 0 SEEN Ur Squamous Epith Cells 0 SEEN Urine Bacteria 0 SEEN Urine Mucus 0 SEEN Assessment/Plan All Active Problems (Last Reviewed 01/25/19 @ 11:59 by Anika Choudhary) PFO (patent foramen ovale) (Ruled-out) 1. Dizziness with fall, possible syncope-recent CVA times two [address] unremarkable. MRI of brain ordered. Possible neurology consult pending MRI results. PT/OT. Fall precautions. Obtain records from recent [facility] stay. Obtain echocardiogram if not done within recent hospitalization. X-ray of hip and pelvis without acute fracture or dislocation. 2. Hyperkalemia-repeat BMP in a.m. 3. Right lower extremity cellulitis- strep appearance. IV vanc and IV zosyn. Obtain blood cultures. 4. Multiple myeloma/low risk MDS-follows with oncology, Dr. Gómez. On acyclovir, Velcade, dexamethasone, Xarelto. 5. Chronic right lobe liver lesion/Chronic left upper lobe lung nodule-continue outpatient follow-up. 6. History of brain meningioma requiring gamma radiation 7. Chronic macrocytic anemia-stable. DVT prophylaxis-on Xarelto. This patient was seen by CHARLES Sanchez under the supervision of Dr. Rodney.
--- NOTE | 2019-02-03 17:56 | HP.PCM_ITS ---
Problem List (1) Cerebrovascular disease Status: Chronic (2) PFO (patent foramen ovale) Status: Ruled-out Comment: GILBERT November 2018 at [facility] (3) Macrocytosis Status: Chronic (4) MDS (myelodysplastic syndrome), low grade Status: Chronic (5) Myeloma Status: Chronic Qualifiers: (6) Lung nodule Status: Chronic Comment: Left upper lobe, May 2018 (7) Liver lesion, right lobe Status: Chronic Comment: Negative biopsy for malignancy June 29, 2018 (8) Anemia Status: Chronic (9) Tremor Status: Chronic (10) Cognitive dysfunction Status: Chronic (11) Meningioma Status: Chronic History of Present Illness Date of Admission: 02/03/19 Chief Complaint: Dizziness with fall. The patient is a 73 year old F who presents the emergency room due to sudden o nset vertigo and suspected syncopal episode. She reports she was letting the dog out when she remembers sliding to the ground. She called for her who attempted to help her up however she had severe dizziness and could not walk. She went to the emergency room at that time. She states she had 2 strokes approximately 1 month ago where she was treated at [facility] and her strokes were reported to be due to a chemotherapy medication she was taking at the time. She was discharged on Xarelto. She denies unilateral weakness, numbness, tingling, vision changes. She also reports right medial ankle redness and warmth. She reports she was being treated by her primary care provider for cellulitis however this has not improved. She has a history of CVA, MDS, multiple myeloma, essential tremor, brain meningioma. Past Medical History Past Medical History (Chronic Problems): Chronic Problems (Last Reviewed 01/25/19 @ 11:59 by Anika Choudhary) Cerebrovascular disease (Chronic) Macrocytosis (Chronic) MDS (myelodysplastic syndrome), low grade (Chronic) Myeloma (Chronic) Lung nodule (Chronic) Left upper lobe, May 2018 Liver lesion, right lobe (Chronic) Negative biopsy for malignancy June 29, 2018 Anemia (Chronic) Tremor (Chronic) Cognitive dysfunction (Chronic) Meningioma (Chronic) Medical History: Medical History (Last Reviewed 01/25/19 @ 11:59 by Anika Choudhary) Cellulitis L03.90 left eye -2018 History of hysterectomy Z90.710 Meningioma D32.9 Gamma knife at [facility] ~2000 Osteopenia M85.80 Stroke I63.9 X2 - HOSPITALIZATION FOR 5 DAYS Allergies morphine Adverse Reaction (Severe, Verified 02/03/19 12:19) Nausea Home Medications: Ambulatory Orders Medication Instructions Recorded Gabapentin [Neurontin] 100 mg PO BID 03/24/16 Bortezomib SC [Velcade SC] 3.5 mg SQ QWEEK 11/11/18 Dexamethasone [Decadron] 40 mg PO QWEEK #40 tablet 01/11/19 Rivaroxaban [Xarelto] 20 mg PO DAILY 01/11/19 Acyclovir 400 mg PO BID 90 Days #180 tablet 01/18/19 Calcium (Elemental) [Os-Nils 500] 500 mg PO DAILY 02/03/19 Cholecalciferol (Vitamin D3) 5,000 unit PO DAILY 02/03/19 [Vitamin D3] Ciprofloxacin HCl 500 mg PO DAILY 02/03/19 Escitalopram Oxalate [Lexapro] 10 mg PO DAILY 02/03/19 Multivitamin with Minerals 1 tab PO DAILY 02/03/19 [Multiple Vitamin] Surgical History: Surgical History (Last Reviewed 01/25/19 @ 11:59 by Anika Choudhary) History of cholecystectomy Z90.49 Surgical History: cholecystectomy, hysterectomy, tonsillectomy Psychiatric History: No pertinent psych hx 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 Lives: Spouse/ Significant Other Smoking Status: Never smoker Alcohol: None Drugs: None - *Family History Maternal Family History: Family History (Last Reviewed 02/03/19 @ 17:48 by CHARLES Sanchez) Mother Breast cancer Sister Breast cancer Aunt Breast cancer Daughter History of malignant melanoma Father Brain cancer Brother Lung cancer Paternal Family History: Family History (Last Reviewed 02/03/19 @ 17:48 by CHARLES Sanchez) Mother Breast cancer Sister Breast cancer Aunt Breast cancer Daughter History of malignant melanoma Father Brain cancer Brother Lung cancer Review of Systems Constitutional: Denies: Chills, Fever, Weight Change HEENT: Denies: Head Aches, Sinus Congestion, Sinus Drainage Cardiovascular: Denies: Chest Pain, Palpitations Respiratory: Denies: Cough, Shortness of breath at rest, Sputum production Gastrointestinal: Denies: Abdominal Pain, Nausea, Vomiting Genitourinary: Denies: Dysuria Musculoskeletal: Denies: Joint Pain, Joint Tenderness Skin: Reports: - - Right medial ankle erythema, warmth and burning. Neurological: Reports: Balance problems, - - Dizziness. Denies: Focal weakness, Numbness, Tingling Psychiatric: Denies: Anxiety, Depression, Homicidal Ideations, Suicidal Ideations Hematologic/ Lymphatic: Denies: Easy Bruising, Easy Bleeding VTE Information - Inpt Only VTE Present on Admission: No VTE Mechan Device Prophylaxis: None VTE Pharm Prophylaxis ordered?: Yes - Physical Exam General: Alert, Oriented x3, Cooperative HEENT: Atraumatic, PERRLA, EOMI, Normocephalic Neck: Supple, No JVD, Negative Carotid Bruits Lungs: Clear to auscultation, Normal air movement Cardiovascular: Regular rate, Regular Rhythm, Normal S1, Normal S2, No murmurs Abdomen: Bowel Sounds Present, Soft, Non Tender, Non-Distended Extremities: No clubbing, No cyanosis, No edema, Capillary Refill Less than 3 S econds Skin: No rashes, No breakdown Musculoskeletal: No Tenderness to Palpation of Joints or Extremities Neurological: Cranial nerves II-XII grossly intact, Neuro grossly intact Psych/Mental Status: Normal Affect, Appropriate Vital Signs Temp Pulse Resp BP Pulse Ox 98.1 F 79 15 165/73 H 98 02/03/19 17:39 02/03/19 17:39 02/03/19 17:39 02/03/19 17:39 02/03/19 17:39 Oxygen Delivery Method Room Air Weight: 155 lb 6.814 oz Body Mass Index (BMI) 27.5 Laboratory Tests Past 24 Hrs 02/03/19 02/03/19 02/03/19 13:30 13:30 13:30 WBC 6.9 RBC 3.84 L Hgb 12.8 Hct 38.3 MCV 99.7 H MCH 33.3 H MCHC 33.4 RDW 13.9 RDW Differential 50.0 H Plt Count 96 L MPV 12.9 H Immature Gran % (Auto) 0.300 Neut % (Auto) 39.5 L Lymph % (Auto) 16.4 L [place] % (Auto) 41.2 H Eos % (Auto) 2.5 Baso % (Auto) 0.1 Absolute Neuts (auto) 2.7 Absolute Lymphs (auto) 1.12 Total Counted Not Reportable Differential Comment COMMENT PT Cancelled INR Cancelled APTT Cancelled Sodium 139 Potassium 5.5 H Chloride 106 Carbon Dioxide 30.0 Anion Gap 3 L BUN 17 Creatinine 0.96 Estim Creat Clear Calc 42.53 Est GFR (MDRD) Af Amer 73 Est GFR (MDRD) Non-Af 60 BUN/Creatinine Ratio 17.7 Glucose 83 Calcium 8.9 Total Bilirubin 0.50 AST 41 H ALT 26 Alkaline Phosphatase 87 Troponin I < 0.015 Total Protein 7.3 Albumin 3.5 Globulin 3.8 Albumin/Globulin Ratio 0.9 Urine Color Urine Clarity Urine pH Ur Specific [place] Urine Protein Urine Glucose (UA) Urine Ketones Urine Occult Blood Urine Nitrite Urine Bilirubin Urine Urobilinogen Ur Leukocyte Esterase Urine RBC Urine WBC Ur Squamous Epith Cells Urine Bacteria Urine Mucus 02/03/19 02/03/19 14:20 14:30 WBC RBC Hgb Hct MCV MCH MCHC RDW RDW Differential Plt Count MPV Immature Gran % (Auto) Neut % (Auto) Lymph % (Auto) [place] % (Auto) Eos % (Auto) Baso % (Auto) Absolute Neuts (auto) Absolute Lymphs (auto) Total Counted Differential Comment PT 32.0 H INR 3.1 APTT 47.9 H Sodium Potassium Chloride Carbon Dioxide Anion Gap BUN Creatinine Estim Creat Clear Calc Est GFR (MDRD) Af Amer Est GFR (MDRD) Non-Af BUN/Creatinine Ratio Glucose Calcium Total Bilirubin AST ALT Alkaline Phosphatase Troponin I Total Protein Albumin Globulin Albumin/Globulin Ratio Urine Color Yellow Urine Clarity Clear Urine pH 7.0 Ur Specific [place] 1.010 Urine Protein Negative Urine Glucose (UA) Normal Urine Ketones Negative Urine Occult Blood 50 H Urine Nitrite Negative Urine Bilirubin Negative Urine Urobilinogen Normal Ur Leukocyte Esterase Negative Urine RBC 0 SEEN Urine WBC 0 SEEN Ur Squamous Epith Cells 0 SEEN Urine Bacteria 0 SEEN Urine Mucus 0 SEEN Assessment/Plan All Active Problems (Last Reviewed 01/25/19 @ 11:59 by Anika Choudhary) PFO (patent foramen ovale) (Ruled-out) 1. Dizziness with fall, possible syncope-recent CVA times two [address] unremarkable. MRI of brain ordered. Possible neurology consult pending MRI results. PT/OT. Fall precautions. Obtain records from recent [facility] stay. Obtain echocardiogram if not done within recent hospitalization. X-ray of hip and pelvis without acute fracture or dislocation. 2. Hyperkalemia-repeat BMP in a.m. 3. Right lower extremity cellulitis- strep appearance. IV vanc and IV zosyn. Obtain blood cultures. 4. Multiple myeloma/low risk MDS-follows with oncology, Dr. Gómez. On acyclovir, Velcade, dexamethasone, Xarelto. 5. Chronic right lobe liver lesion/Chronic left upper lobe lung nodule-continue outpatient follow-up. 6. History of brain meningioma requiring gamma radiation 7. Chronic macrocytic anemia-stable. DVT prophylaxis-on Xarelto. This patient was seen by CHARLES Sanchez under the supervision of Dr. Rodney.
[2019-02-03 19:51] LABS: CRP 8.98 mg/L (0.0-3.0)
[2019-02-03] MEDS: Vancomycin IV 1,000 MG/200 ML BAG 200 MG IV (20:10)
[2019-02-03] MEDS: 0.9% NaCl Peripheral Flush Adult/Peds IV (20:10)
[2019-02-03] MEDS: 0.9% Normal Saline 1,000 ML 100 ML IV (20:10)
[2019-02-03 20:29] LABS: Erythrocyte Sedimentation Rate 14 mm/hr (0-30)
--- NOTE | 2019-02-03 20:39 | PCM.RX.CS ---
Consult Pharmacy has been consulted to manage selected antiobiotic: Vancomycin Type of Consult: New start Suspected Infection: Skin/Soft tissue Labs: Sodium 139 mmol/L (136-145) 02/03/19 13:30 Potassium 5.5 mmol/L (3.5-5.1) H 02/03/19 13:30 Chloride 106 mmol/L (98-107) 02/03/19 13:30 Carbon Dioxide 30.0 mmol/L (21.0-32.0) 02/03/19 13:30 Anion Gap 3 (5-15) L 02/03/19 13:30 BUN 17 mg/dL (7-18) 02/03/19 13:30 Creatinine 0.96 mg/dL (0.55-1.02) 02/03/19 13:30 Est GFR (MDRD) Af Amer 73 mL/min (>60) 02/03/19 13:30 Est GFR (MDRD) Non-Af 60 mL/min (>60) 02/03/19 13:30 BUN/Creatinine Ratio 17.7 RATIO (10-20) 02/03/19 13:30 Glucose 83 mg/dL (74-106) 02/03/19 13:30 Weight used for dosin kg Estimated Creatinine Clearance: 42 ML/MIN Goal Trough: 10-15 mcg/mL Pharmacy Plan for Drug Dosing: Give initial standard 15mg/kg dose of 1000mg IV x1, then continue with 1000mg IV q24h. Will order a trough to be drawn before the 3rd dose. Pharmacy Service will continue to monitor and adjust dosing as required. Follow-Up Labs: Trough Vancomycin Labs to be done on [date and time ordered]: 02/05/19 19:30
[2019-02-03] MEDS: Acyclovir 200 MG Capsule 400 MG PO (22:43)
[2019-02-03] MEDS: Atorvastatin Calcium 80 MG Tablet PO (22:43)
[2019-02-04] VITALS (19 sets, daily range): BP systolic 134–173; BP diastolic 53–73; PULSE 83–103; RESP 14–21; TEMP 36.3–37.1; O2SAT 94–99; BMI 27.3
--- NOTE | 2019-02-04 03:03 | NURSING ---
Addendum entered by Tiny Arroyo 02/04/19 03:14: Pt states the last time she had a stroke she struggled writing checks because she couldn't write on the lines. Original Note: When reading words from the stroke assessment page, pt combines 4th and 5th lines to say Near the table in the dining room last night. States the words appeared to be moved down a line. When gaze assessed, pt was able to look left, right, and down, but seemed to struggle with following this RNs finger upward.
[2019-02-04] MEDS: 0.9% Normal Saline 1,000 ML 100 ML IV (07:18)
[2019-02-04 07:59] LABS: Anion Gap 8 (5-15); BUN 14 mg/dL (7-18); BUN/Creat Ratio 15.7 RATIO (10-20); Calcium,Total 8.4 mg/dL (8.5-10.1); Chloride 109 mmol/L (98-107); Cholesterol 138 mg/dL (200); Creatinine, Serum 0.89 mg/dL (0.55-1.02); EST Glomerular Filtration Rate 66 mL/min (>60); Est Glom Filt Rate - Afr Amer 80 mL/min (>60); Estimated Creatinine Clearance 45.87 ml/min; Glucose 93 mg/dL (74-106); High Density Lipoprotein 31 mg/dL; Potassium 3.8 mmol/L (3.5-5.1); Sodium Level 143 mmol/L (136-145); Triglycerides 137 mg/dL; Very Low Density Lipoprotein 27 mg/dL (5-40)
[2019-02-04 08:23] LABS: Absolute Lymphocyte Count 1.16 X10^3/ul (0.83-4.51); Absolute Neutrophil Count 3.3 X10^3/uL (2.0-7.7); Basophil# 0.02 X10^3/uL; Basophil% 0.3 % (0-1); Eosinophil# 0.22 X10^3/uL; Eosinophils% 3.1 % (0-5); Hematocrit 38.1 % (37-47); Hemoglobin 12.9 g/dl (12.0-15.0); Lymphocyte # 1.16 X10^3/ul (4.0); Lymphocyte % 16.1 % (19-41); Mean Corp Hgb Conc 33.9 g/gl (32-36); Mean Corpuscular Hgb 33.9 pg (27.0-32.0); Mean Platelet Vol. 12.4 fl (6.2-12.0); Monocyte# 2.48 X10^3/uL; Monocyte% 34.4 % (0-10); Neutrophil # 3.28 X10^3/uL (2.7-7.7); Neutrophil % 45.5 % (47-70); Platelet Count 107 K/mm3 (150-450); RBC Distribution Width CV 13.9 % (11.6-14.6); RBC Distribution Width SD 50.5 fl (35.1-43.9); Red Blood Count 3.81 M/mm3 (4.2-5.4); White Blood Count 7.2 K/mm3 (4.4-11.0)
[2019-02-04 08:24] LABS: Differential Indicated SCAN CRITERIA MET; POSITIVE COUNT NO; POSITIVE DIFFERENTIAL YES; POSITIVE MORPHOLOGY NO
[2019-02-04 08:24] LABS: M R Staph aureus DNA By PCR Negative (Negative); Probe Check PASS; Specimen Processing Control PASS
--- NOTE | 2019-02-04 08:38 | CT_ITS ---
STUDY: CTA NECK WITH CONTRAST REASON FOR EXAM: Female, 73 years old. CVA, severe vertigo, history of multiple myeloma and meningioma RADIATION DOSAGE (If Supplied By Facility): CTDIvol = ( 27.40 ) mGy, DLP = ( 1447.66 ) mGycm TECHNIQUE: CT angiography with multi-detector data acquisition was performed from the aortic arch to the skull base following intravenous administration of 100 IV Isovue 370. MIP images were reconstructed from the axial data set. Post-processing of the angiographic images was performed, with multiplanar reformation and 3D reconstruction. Degree of stenosis (when present) measured utilizing NASCET criteria. Individualized dose optimization techniques were used for this CT. COMPARISON: None. FINDINGS: Localized part solid nodule of the left apex measures 1.5 x 2.3 cm (groundglass opacity) with solid component measuring 7 mm, overall similar since prior CT of 06/22/2018. Visualized lung apices are otherwise unremarkable. AORTIC ARCH: Minor atherosclerosis of the aortic arch. Minimal noncalcified plaque at the origin of the left subclavian artery with only minimal (10-20%) narrowing. The origins of the right brachiocephalic and left common carotid arteries are widely patent. RIGHT CAROTID ARTERIES: Normal right common carotid artery (CCA). Normal right common carotid bulb. There is mild atherosclerotic plaque formation of the origin of the right internal carotid artery 40% cross sectional diameter stenosis. There is atherosclerotic tortuous elongation of the cervical portion of the right internal carotid artery. Normal origin of the right external carotid artery (ECA). LEFT CAROTID ARTERIES: Normal left common carotid artery (CCA). There is mild atherosclerotic plaque formation with minimal narrowing of the left carotid bulb. Normal origin of the left internal carotid (ICA) artery without a hemodynamically significant stenosis. There is atherosclerotic tortuous elongation of the cervical portion of the left internal carotid artery. Normal origin of the left external carotid artery (ECA). VERTEBRAL ARTERIES: Normal bilateral vertebral arteries. Multilevel degenerative changes of the cervical spine. IMPRESSION: 1. Mild right proximal ICA atherosclerosis with stenosis (40% stenosis). 2. Minimal atherosclerosis of the left carotid bulb with only trace luminal narrowing. 10. 20% stenosis of the left subclavian artery origin. 3. Stable groundglass opacity/part solid nodule of the left apex. Electronically Signed: Franky Cole MD at 10:24 EDT , Service support , STUDY: CTA OF THE BRAIN without and with IV contrast REASON FOR EXAM: Female, 73 years old. Severe vertigo with history of stroke, multiple myeloma and gamma knife for meningioma RADIATION DOSAGE (If Supplied By Facility): CTDIvol = ( 27.40 ) mGy, DLP = ( 1447.66 ) mGycm TECHNIQUE: Noncontrasted head CT examination performed. CT angiography was performed with a multi-detector CT scanner. Data acquisition was obtained from the skull base through the vertex following intravenous administration of 100 IV Isovue 370. MIP images were reconstructed from the axial data set. Post-processing of the angiographic images was performed, with multiplanar reformation and 3D reconstruction. Individualized dose optimization techniques were used for this CT. COMPARISON: Brain MRI of 02/03/2019, CT brain of 02/03/2019 FINDINGS: Normal bilateral petrous carotid arteries. Normal right cavernous carotid artery with a normal supraclinoid bifurcation. Normal left cavernous carotid artery with a normal supraclinoid bifurcation. Normal right A1 segments of the anterior cerebral artery. Normal left A1 segments of the anterior cerebral artery. Normal intact anterior communicating artery (ACOM). Normal bilateral A2 segments of the anterior cerebral arteries. Normal right M1 and M2 segments of the middle cerebral arteries, with a normal M1 bifurcation. Normal left M1 and M2 segments of the middle cerebral arteries, with a normal M1 bifurcation. Normal right posterior communicating artery (PCOM). There is non-visualization of the left posterior communicating artery (PCOM). Normal bilateral vertebral arteries. Normal basilar artery with a normal basilar bifurcation. The visualized bilateral superior cerebellar (SCA) arteries are normal. Normal bilateral P1, P2 and visualized P3 segments of the posterior cerebral arteries. There is no demonstrated aneurysm of the [place]. Ventricular system is unchanged since previous day. 1.9 x 1.2 cm slightly hyperdense lesion along the posterior aspect of the falx is stable. No acute intracranial hemorrhage or vasogenic edema identified. Localized area of encephalomalacia and gliosis of the left parietal lobe is stable. Calcified extra-axial nodule adjacent to the anterior/frontal falx on axial image 27 is stable, compatible with a calcified meningioma, stable. CT/CTA Neck W/WO Contrast IMPRESSION: 1. No large vessel occlusion or intracranial aneurysm. 2. Stable CT brain since previous day. Electronically Signed: Franky Cole MD at 10:28 EDT , Service support ,
--- NOTE | 2019-02-04 08:38 | CT_ITS ---
STUDY: CTA NECK WITH CONTRAST REASON FOR EXAM: Female, 73 years old. CVA, severe vertigo, history of multiple myeloma and meningioma RADIATION DOSAGE (If Supplied By Facility): CTDIvol = ( 27.40 ) mGy, DLP = ( 1447.66 ) mGycm TECHNIQUE: CT angiography with multi-detector data acquisition was performed from the aortic arch to the skull base following intravenous administration of 100 IV Isovue 370. MIP images were reconstructed from the axial data set. Post-processing of the angiographic images was performed, with multiplanar reformation and 3D reconstruction. Degree of stenosis (when present) measured utilizing NASCET criteria. Individualized dose optimization techniques were used for this CT. COMPARISON: None. FINDINGS: Localized part solid nodule of the left apex measures 1.5 x 2.3 cm (groundglass opacity) with solid component measuring 7 mm, overall similar since prior CT of 06/22/2018. Visualized lung apices are otherwise unremarkable. AORTIC ARCH: Minor atherosclerosis of the aortic arch. Minimal noncalcified plaque at the origin of the left subclavian artery with only minimal (10-20%) narrowing. The origins of the right brachiocephalic and left common carotid arteries are widely patent. RIGHT CAROTID ARTERIES: Normal right common carotid artery (CCA). Normal right common carotid bulb. There is mild atherosclerotic plaque formation of the origin of the right internal carotid artery 40% cross sectional diameter stenosis. There is atherosclerotic tortuous elongation of the cervical portion of the right internal carotid artery. Normal origin of the right external carotid artery (ECA). LEFT CAROTID ARTERIES: Normal left common carotid artery (CCA). There is mild atherosclerotic plaque formation with minimal narrowing of the left carotid bulb. Normal origin of the left internal carotid (ICA) artery without a hemodynamically significant stenosis. There is atherosclerotic tortuous elongation of the cervical portion of the left internal carotid artery. Normal origin of the left external carotid artery (ECA). VERTEBRAL ARTERIES: Normal bilateral vertebral arteries. Multilevel degenerative changes of the cervical spine. IMPRESSION: 1. Mild right proximal ICA atherosclerosis with stenosis (40% stenosis). 2. Minimal atherosclerosis of the left carotid bulb with only trace luminal narrowing. 10. 20% stenosis of the left subclavian artery origin. 3. Stable groundglass opacity/part solid nodule of the left apex. Electronically Signed: Franky Cole MD at 10:24 EDT , Service support , STUDY: CTA OF THE BRAIN without and with IV contrast REASON FOR EXAM: Female, 73 years old. Severe vertigo with history of stroke, multiple myeloma and gamma knife for meningioma RADIATION DOSAGE (If Supplied By Facility): CTDIvol = ( 27.40 ) mGy, DLP = ( 1447.66 ) mGycm TECHNIQUE: Noncontrasted head CT examination performed. CT angiography was performed with a multi-detector CT scanner. Data acquisition was obtained from the skull base through the vertex following intravenous administration of 100 IV Isovue 370. MIP images were reconstructed from the axial data set. Post-processing of the angiographic images was performed, with multiplanar reformation and 3D reconstruction. Individualized dose optimization techniques were used for this CT. COMPARISON: Brain MRI of 02/03/2019, CT brain of 02/03/2019 FINDINGS: Normal bilateral petrous carotid arteries. Normal right cavernous carotid artery with a normal supraclinoid bifurcation. Normal left cavernous carotid artery with a normal supraclinoid bifurcation. Normal right A1 segments of the anterior cerebral artery. Normal left A1 segments of the anterior cerebral artery. Normal intact anterior communicating artery (ACOM). Normal bilateral A2 segments of the anterior cerebral arteries. Normal right M1 and M2 segments of the middle cerebral arteries, with a normal M1 bifurcation. Normal left M1 and M2 segments of the middle cerebral arteries, with a normal M1 bifurcation. Normal right posterior communicating artery (PCOM). There is non-visualization of the left posterior communicating artery (PCOM). Normal bilateral vertebral arteries. Normal basilar artery with a normal basilar bifurcation. The visualized bilateral superior cerebellar (SCA) arteries are normal. Normal bilateral P1, P2 and visualized P3 segments of the posterior cerebral arteries. There is no demonstrated aneurysm of the [place]. Ventricular system is unchanged since previous day. 1.9 x 1.2 cm slightly hyperdense lesion along the posterior aspect of the falx is stable. No acute intracranial hemorrhage or vasogenic edema identified. Localized area of encephalomalacia and gliosis of the left parietal lobe is stable. Calcified extra-axial nodule adjacent to the anterior/frontal falx on axial image 27 is stable, compatible with a calcified meningioma, stable. CT/CTA Head W/WO Contrast IMPRESSION: 1. No large vessel occlusion or intracranial aneurysm. 2. Stable CT brain since previous day. Electronically Signed: Franky Cole MD at 10:28 EDT , Service support ,
--- NOTE | 2019-02-04 08:39 | MRI_ITS ---
STUDY: MRI BRAIN WITH CONTRAST REASON FOR EXAM: Female, 73 years old. Stroke and meningioma with dizziness TECHNIQUE: Standardized multiplanar fat and water weighted pulse sequences were obtained. 14 IV Dotarem was administered for the contrast portion of the examination. COMPARISON: 02/03/2019 noncontrast study FINDINGS: A round intensely extra-axial enhancing mass is present along the left posterior falx measuring 19 x 15 x 21 mm, compatible with meningioma. No evidence of superior sagittal sinus invasion. A 9 x 7 x 6 mm extra-axial enhancing nodule is present over the left frontal convexity compatible with meningioma. No other enhancing intracranial lesions are identified. Left parietal encephalomalacia and laminar necrosis. MRI/Brain WITH Contrast IMPRESSION: 2 left-sided meningiomas are present as described. Electronically Signed: Prakash Gooden MD at 10:56 EDT Tel , Service support ,
[2019-02-04] MEDS: Aspirin 81 MG TAB.CHEW PO (08:52)
[2019-02-04] MEDS: Acyclovir 200 MG Capsule 400 MG PO ×2 (08:52→22:13)
[2019-02-04] MEDS: Escitalopram Oxalate 10 MG Tablet PO (08:52)
[2019-02-04] MEDS: Gabapentin 100 MG Capsule PO ×2 (08:53→17:38)
[2019-02-04] MEDS: Calcium (Elemental) 500 MG Tablet PO (08:53)
--- NOTE | 2019-02-04 09:31 | CON.PCM_ITS ---
Problem List (1) Stroke Status: Acute Reason for Consult Date of Consultation: 02/04/19 Reason for Consultation: Stroke History of Present Illness: The patient is a 73 year old F PMH stroke, PAF on Xarelto, MDS, multiple myeloma, history of meningioma s/p gamma knife surgery 12 years ago admitted with dizziness. Per patient she started having acute onset dizziness yesterday 02/03/2019 after she woke up in the morning and had a fall. Per patient she did not lose her consciousness and denies any syncopal episode. Was later brought to the ED for further evaluation. Per patient she was admitted about a month ago at [facility] with stroke, per patient she had speech disturbances and left-sided weakness at that time which later resolved (no records available). Per patient she was on Revlimid for chemotherapy when she had the stroke following which Revlimid was discontinued and she has been started on Velcade as well as dexamethasone since then. Since this morning she also feels that there is some weakness in the left upper and lower extremities. She denies any headache, visual disturbances or speech disturbances at present, denies any sensory loss. Per patient she lives with her , denies any frequent falls, does not use any cane or walker to ambulate, and does drive, and does not need any assistance for a day-to-day activities. Per patient at [place] she was told that she had multiple strokes on both the sides of the cerebral hemisphere and later she saw Dr. Garner who per patient started her on Coumadin and it was later changed to Xarelto by her PCP Dr. Augusta Wilson. MRI brain done on a dmission reported to show acute right posterior frontal infarct in the right pericallosal arterial distribution, 1.9 cm extra-axial left parietal lesion probable meningioma, 5 mm left frontal extra-axial lesion possible meningioma. [] Past Medical History Past Medical History (Chronic Problems): Chronic Problems (Last Reviewed 01/25/19 @ 11:59 by Anika Choudhary) Cerebrovascular disease (Chronic) Macrocytosis (Chronic) MDS (myelodysplastic syndrome), low grade (Chronic) Myeloma (Chronic) Lung nodule (Chronic) Left upper lobe, May 2018 Liver lesion, right lobe (Chronic) Negative biopsy for malignancy June 29, 2018 Anemia (Chronic) Tremor (Chronic) Cognitive dysfunction (Chronic) Meningioma (Chronic) Medical History: Medical History (Last Reviewed 01/25/19 @ 11:59 by Anika Choudhary) Cellulitis L03.90 left eye 1-2018 History of hysterectomy Z90.710 Meningioma D32.9 Gamma knife at [facility] ~2000 Osteopenia M85.80 Stroke I63.9 X2 - HOSPITALIZATION FOR 5 DAYS Allergies morphine Adverse Reaction (Severe, Verified 02/03/19 12:19) Nausea Home Medications: Ambulatory Orders Medication Instructions Recorded Gabapentin [Neurontin] 100 mg PO BID 03/24/16 Bortezomib SC [Velcade SC] 3.5 mg SQ QWEEK 11/11/18 Dexamethasone [Decadron] 40 mg PO QWEEK #40 tablet 01/11/19 Rivaroxaban [Xarelto] 20 mg PO DAILY 01/11/19 Acyclovir 400 mg PO BID 90 Days #180 tablet 01/18/19 Calcium (Elemental) [Os-Nils 500] 500 mg PO DAILY 02/03/19 Cholecalciferol (Vitamin D3) 5,000 unit PO DAILY 02/03/19 [Vitamin D3] Ciprofloxacin HCl 500 mg PO DAILY 02/03/19 Escitalopram Oxalate [Lexapro] 10 mg PO DAILY 02/03/19 Multivitamin with Minerals 1 tab PO DAILY 02/03/19 [Multiple Vitamin] Surgical History: Surgical History (Last Reviewed 01/25/19 @ 11:59 by Anika Choudhary) History of cholecystectomy Z90.49 Surgical History: cholecystectomy, hysterectomy, tonsillectomy Psychiatric History: 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 Lives: Spouse/ Significant Other Smoking Status: Never smoker Tobacco Use: Non-smoker Alcohol: None Drugs: None - *Family History Maternal Family History: Family History (Last Reviewed 02/03/19 @ 17:48 by CHARLES Sanchez) Mother Breast cancer Sister Breast cancer Aunt Breast cancer Daughter History of malignant melanoma Father Brain cancer Brother Lung cancer Paternal Family History: Family History (Last Reviewed 02/03/19 @ 17:48 by CHARLES Sanchez) Mother Breast cancer Sister Breast cancer Aunt Breast cancer Daughter History of malignant melanoma Father Brain cancer Brother Lung cancer Review of Systems Constitutional: Reports: - - Complete ROS negative except as documented in HPI Patient Problems: Active and Suspected Problems (Last Reviewed 01/25/19 @ 11:59 by Anika Choudhary) Stroke (Acute) - Physical Exam General: Alert HEENT: Normocephalic Neck: Supple Lungs: Normal air movement Cardiovascular: Normal S1, Normal S2 Abdomen: Bowel Sounds Present Extremities: No cyanosis Neurological: - - Conscious, alert, CN II through XII grossly intact, power 5/5 right upper and lower extremity, 4/5 left upper and lower extremity, left upper and lower extremity pronator drift, no sensory loss, no cerebellar signs, reflexes + B/L B/S/T/K/A, gait deferred, NIHSS 3 at present, mRS 0 at baseline Psych/Mental Status: Normal Affect Vital Signs Temp Pulse Resp BP Pulse Ox 98.5 F 86 18 173/73 H 98 02/04/19 08:31 02/04/19 08:31 02/04/19 08:31 02/04/19 08:31 02/04/19 08:31 Oxygen Delivery Method Room Air Weight: 69.6 kg Body Mass Index (BMI) 27.3 Intake and Output for Last 24 Hours 02/02/19 02/03/19 02/04/19 23:59 23:59 23:59 Intake Total 807.3 / 807.3 585.7 / 585.7 Balance 807.3 / 807.3 585.7 / 585.7 Laboratory Tests Past 24 Hrs 02/03/19 02/03/19 02/03/19 13:30 13:30 13:30 WBC 6.9 RBC 3.84 L Hgb 12.8 Hct 38.3 MCV 99.7 H MCH 33.3 H MCHC 33.4 RDW 13.9 RDW Differential 50.0 H Plt Count 96 L MPV 12.9 H Immature Gran % (Auto) 0.300 Neut % (Auto) 39.5 L Lymph % (Auto) 16.4 L [place] % (Auto) 41.2 H Eos % (Auto) 2.5 Baso % (Auto) 0.1 Absolute Neuts (auto) 2.7 Absolute Lymphs (auto) 1.12 Total Counted Not Reportable Differential Comment COMMENT ESR PT Cancelled INR Cancelled APTT Cancelled Sodium 139 Potassium 5.5 H Chloride 106 Carbon Dioxide 30.0 Anion Gap 3 L BUN 17 Creatinine 0.96 Estim Creat Clear Calc 42.53 Est GFR (MDRD) Af Amer 73 Est GFR (MDRD) Non-Af 60 BUN/Creatinine Ratio 17.7 Glucose 83 Calcium 8.9 Total Bilirubin 0.50 AST 41 H ALT 26 Alkaline Phosphatase 87 Troponin I < 0.015 C-React Prot Ext Range Total Protein 7.3 Albumin 3.5 Globulin 3.8 Albumin/Globulin Ratio 0.9 Triglycerides Cholesterol LDL Cholesterol VLDL Cholesterol HDL Cholesterol Urine Color Urine Clarity Urine pH Ur Specific [place] Urine Protein Urine Glucose (UA) Urine Ketones Urine Occult Blood Urine Nitrite Urine Bilirubin Urine Urobilinogen Ur Leukocyte Esterase Urine RBC Urine WBC Ur Squamous Epith Cells Urine Bacteria Urine Mucus MRSA (PCR) 02/03/19 02/03/19 02/03/19 13:30 13:30 14:20 WBC RBC Hgb Hct MCV MCH MCHC RDW RDW Differential Plt Count MPV Immature Gran % (Auto) Neut % (Auto) Lymph % (Auto) [place] % (Auto) Eos % (Auto) Baso % (Auto) Absolute Neuts (auto) Absolute Lymphs (auto) Total Counted Differential Comment ESR 14 PT 32.0 H INR 3.1 APTT 47.9 H Sodium Potassium Chloride Carbon Dioxide Anion Gap BUN Creatinine Estim Creat Clear Calc Est GFR (MDRD) Af Amer Est GFR (MDRD) Non-Af BUN/Creatinine Ratio Glucose Calcium Total Bilirubin AST ALT Alkaline Phosphatase Troponin I C-React Prot Ext Range 8.98 H Total Protein Albumin Globulin Albumin/Globulin Ratio Triglycerides Cholesterol LDL Cholesterol VLDL Cholesterol HDL Cholesterol Urine Color Urine Clarity Urine pH Ur Specific [place] Urine Protein Urine Glucose (UA) Urine Ketones Urine Occult Blood Urine Nitrite Urine Bilirubin Urine Urobilinogen Ur Leukocyte Esterase Urine RBC Urine WBC Ur Squamous Epith Cells Urine Bacteria Urine Mucus MRSA (PCR) 02/03/19 02/04/19 02/04/19 14:30 05:36 05:53 WBC 7.2 RBC 3.81 L Hgb 12.9 Hct 38.1 MCV 100.0 H MCH 33.9 H MCHC 33.9 RDW 13.9 RDW Differential 50.5 H Plt Count 107 L MPV 12.4 H Immature Gran % (Auto) 0.600 Neut % (Auto) 45.5 L Lymph % (Auto) 16.1 L [place] % (Auto) 34.4 H Eos % (Auto) 3.1 Baso % (Auto) 0.3 Absolute Neuts (auto) 3.3 Absolute Lymphs (auto) 1.16 Total Counted Pending Differential Comment ESR PT INR APTT Sodium Potassium Chloride Carbon Dioxide Anion Gap BUN Creatinine Estim Creat Clear Calc Est GFR (MDRD) Af Amer Est GFR (MDRD) Non-Af BUN/Creatinine Ratio Glucose Calcium Total Bilirubin AST ALT Alkaline Phosphatase Troponin I C-React Prot Ext Range Total Protein Albumin Globulin Albumin/Globulin Ratio Triglycerides Cholesterol LDL Cholesterol VLDL Cholesterol HDL Cholesterol Urine Color Yellow Urine Clarity Clear Urine pH 7.0 Ur Specific [place] 1.010 Urine Protein Negative Urine Glucose (UA) Normal Urine Ketones Negative Urine Occult Blood 50 H Urine Nitrite Negative Urine Bilirubin Negative Urine Urobilinogen Normal Ur Leukocyte Esterase Negative Urine RBC 0 SEEN Urine WBC 0 SEEN Ur Squamous Epith Cells 0 SEEN Urine Bacteria 0 SEEN Urine Mucus 0 SEEN MRSA (PCR) Negative 02/04/19 05:53 WBC RBC Hgb Hct MCV MCH MCHC RDW RDW Differential Plt Count MPV Immature Gran % (Auto) Neut % (Auto) Lymph % (Auto) [place] % (Auto) Eos % (Auto) Baso % (Auto) Absolute Neuts (auto) Absolute Lymphs (auto) Total Counted Differential Comment ESR PT INR APTT Sodium 143 Potassium 3.8 Chloride 109 H Carbon Dioxide 26.0 Anion Gap 8 BUN 14 Creatinine 0.89 Estim Creat Clear Calc 45.87 Est GFR (MDRD) Af Amer 80 Est GFR (MDRD) Non-Af 66 BUN/Creatinine Ratio 15.7 Glucose 93 Calcium 8.4 L Total Bilirubin AST ALT Alkaline Phosphatase Troponin I C-React Prot Ext Range Total Protein Albumin Globulin Albumin/Globulin Ratio Triglycerides 137 Cholesterol 138 LDL Cholesterol 80 VLDL Cholesterol 27 HDL Cholesterol 31 L Urine Color Urine Clarity Urine pH Ur Specific [place] Urine Protein Urine Glucose (UA) Urine Ketones Urine Occult Blood Urine Nitrite Urine Bilirubin Urine Urobilinogen Ur Leukocyte Esterase Urine RBC Urine WBC Ur Squamous Epith Cells Urine Bacteria Urine Mucus MRSA (PCR) Assessment/Plan All Active Problems (Last Reviewed 01/25/19 @ 11:59 by Anika Choudhary) Stroke (Acute) PFO (patent foramen ovale) (Ruled-out) The patient is a 73 year old F PMH stroke, PAF on Xarelto, MDS, multiple myeloma, history of meningioma s/p gamma knife surgery 12 years ago admitted with dizziness. Per patient she started having acute onset dizziness yesterday 02/03/2019 after she woke up in the morning and had a fall. Per patient she did not lose her consciousness and denies any syncopal episode. Was later brought to the ED for further evaluation. Per patient she was admitted about a month ago at [facility] with stroke, per patient she had speech disturbances and left-sided weakness at that time which later resolved (no records available). Per patient she was on Revlimid for chemotherapy when she had the stroke following which Revlimid was discontinued and she has been started on Velcade as well as dexamethasone since then. Since this morning she also feels that there is some weakness in the left upper and lower extremities. She denies any headache, visual disturbances or speech disturbances at present, denies any sensory loss. Per patient she lives with her , denies any frequent falls, does not use any cane or walker to ambulate, and does drive, and does not need any assistance for a day-to-day activities. Per patient at [place] she was told that she had multiple strokes on both the sides of the cerebral hemisphere and later she saw Dr. Garner who per patient started her on Coumadin and it was later changed to Xarelto by her PCP Dr. Augusta Wilosn. MRI brain done on admission reported to show acute right posterior frontal infarct in the right pericallosal arterial distribution, 1.9 cm extra-axial left parietal lesion probable meningioma, 5 mm left frontal extra-axial lesion possible meningioma.[] Impression Acute right MCA stroke (right posterior frontal infarct) Plan ?On Xarelto, recommend changing Xarelto to Eliquis 5 mg p.o. twice daily if no contraindication ?On Lipitor 80 mg p.o. nightly ?MRI brain images reviewed. Repeat MRI brain with contrast given the history of meningioma and multiple myeloma ?CTA head/neck ?TTE, LDL, HbA1c ?Stroke risk factors discussed and stroke education provided ?Permissive hypertension for 24hours ?PT/OT/ST ?Fall precautions ?GI/DVT prophylaxis ?Please call with questions if any ?Thank you for allowing us to participate in patient's current management Code Visit Inpatient E&M: 68895 Init Hosp L3
[2019-02-04 09:54] LABS: Differential Comment SCANNED
--- NOTE | 2019-02-04 13:06 | PN_ITS ---
Patient Problems: Active and Suspected Problems (Last Reviewed 01/25/19 @ 11:59 by Anika Choudhary) Stroke (Acute) Subjective: Patient seen and examined. Continues to complain of intermittent dizziness. Denies new neurologic symptoms or focal deficits. - Physical Exam General: Alert, Oriented x3, Cooperative HEENT: Atraumatic, PERRLA, EOMI, Normocephalic Neck: Supple, No JVD, Negative Carotid Bruits Lungs: Clear to auscultation, Normal air movement Cardiovascular: Regular rate, Regular Rhythm, Normal S1, Normal S2, No murmurs Abdomen: Bowel Sounds Present, Soft, Non Tender, Non-Distended Extremities: No clubbing, No cyanosis, No edema, Capillary Refill Less than 3 Seconds Skin: No rashes, No breakdown Musculoskeletal: No Tenderness to Palpation of Joints or Extremities Neurological: Cranial nerves II-XII grossly intact, Neuro grossly intact Psych/Mental Status: Normal Affect, Appropriate Vital Signs Temp Pulse Resp BP Pulse Ox 98.4 F 85 18 159/72 H 98 02/04/19 12:02 02/04/19 12:02 02/04/19 12:02 02/04/19 12:02 02/04/19 12:02 Oxygen Delivery Method Room Air Weight: 153 lb 7.068 oz Body Mass Index (BMI) 27.3 Intake and Output for Last 24 Hours 02/02/19 02/03/19 02/04/19 23:59 23:59 23:59 Intake Total 807.3 / 807.3 1226.7 / 1226.7 Balance 807.3 / 807.3 1226.7 / 1226.7 Laboratory Tests Past 24 Hrs 02/03/19 02/03/19 02/03/19 13:30 13:30 13:30 WBC 6.9 RBC 3.84 L Hgb 12.8 Hct 38.3 MCV 99.7 H MCH 33.3 H MCHC 33.4 RDW 13.9 RDW Differential 50.0 H Plt Count 96 L MPV 12.9 H Immature Gran % (Auto) 0.300 Neut % (Auto) 39.5 L Lymph % (Auto) 16.4 L [place] % (Auto) 41.2 H Eos % (Auto) 2.5 Baso % (Auto) 0.1 Absolute Neuts (auto) 2.7 Absolute Lymphs (auto) 1.12 Total Counted Not Reportable Differential Comment COMMENT ESR PT Cancelled INR Cancelled APTT Cancelled Sodium 139 Potassium 5.5 H Chloride 106 Carbon Dioxide 30.0 Anion Gap 3 L BUN 17 Creatinine 0.96 Estim Creat Clear Calc 42.53 Est GFR (MDRD) Af Amer 73 Est GFR (MDRD) Non-Af 60 BUN/Creatinine Ratio 17.7 Glucose 83 Calcium 8.9 Total Bilirubin 0.50 AST 41 H ALT 26 Alkaline Phosphatase 87 Troponin I < 0.015 C-React Prot Ext Range Total Protein 7.3 Albumin 3.5 Globulin 3.8 Albumin/Globulin Ratio 0.9 Triglycerides Cholesterol LDL Cholesterol VLDL Cholesterol HDL Cholesterol Urine Color Urine Clarity Urine pH Ur Specific [place] Urine Protein Urine Glucose (UA) Urine Ketones Urine Occult Blood Urine Nitrite Urine Bilirubin Urine Urobilinogen Ur Leukocyte Esterase Urine RBC Urine WBC Ur Squamous Epith Cells Urine Bacteria Urine Mucus MRSA (PCR) 02/03/19 02/03/19 02/03/19 13:30 13:30 14:20 WBC RBC Hgb Hct MCV MCH MCHC RDW RDW Differential Plt Count MPV Immature Gran % (Auto) Neut % (Auto) Lymph % (Auto) [place] % (Auto) Eos % (Auto) Baso % (Auto) Absolute Neuts (auto) Absolute Lymphs (auto) Total Counted Differential Comment ESR 14 PT 32.0 H INR 3.1 APTT 47.9 H Sodium Potassium Chloride Carbon Dioxide Anion Gap BUN Creatinine Estim Creat Clear Calc Est GFR (MDRD) Af Amer Est GFR (MDRD) Non-Af BUN/Creatinine Ratio Glucose Calcium Total Bilirubin AST ALT Alkaline Phosphatase Troponin I C-React Prot Ext Range 8.98 H Total Protein Albumin Globulin Albumin/Globulin Ratio Triglycerides Cholesterol LDL Cholesterol VLDL Cholesterol HDL Cholesterol Urine Color Urine Clarity Urine pH Ur Specific [place] Urine Protein Urine Glucose (UA) Urine Ketones Urine Occult Blood Urine Nitrite Urine Bilirubin Urine Urobilinogen Ur Leukocyte Esterase Urine RBC Urine WBC Ur Squamous Epith Cells Urine Bacteria Urine Mucus MRSA (PCR) 02/03/19 02/04/19 02/04/19 14:30 05:36 05:53 WBC 7.2 RBC 3.81 L Hgb 12.9 Hct 38.1 MCV 100.0 H MCH 33.9 H MCHC 33.9 RDW 13.9 RDW Differential 50.5 H Plt Count 107 L MPV 12.4 H Immature Gran % (Auto) 0.600 Neut % (Auto) 45.5 L Lymph % (Auto) 16.1 L [place] % (Auto) 34.4 H Eos % (Auto) 3.1 Baso % (Auto) 0.3 Absolute Neuts (auto) 3.3 Absolute Lymphs (auto) 1.16 Total Counted Not Reportable Differential Comment SCANNED ESR PT INR APTT Sodium Potassium Chloride Carbon Dioxide Anion Gap BUN Creatinine Estim Creat Clear Calc Est GFR (MDRD) Af Amer Est GFR (MDRD) Non-Af BUN/Creatinine Ratio Glucose Calcium Total Bilirubin AST ALT Alkaline Phosphatase Troponin I C-React Prot Ext Range Total Protein Albumin Globulin Albumin/Globulin Ratio Triglycerides Cholesterol LDL Cholesterol VLDL Cholesterol HDL Cholesterol Urine Color Yellow Urine Clarity Clear Urine pH 7.0 Ur Specific [place] 1.010 Urine Protein Negative Urine Glucose (UA) Normal Urine Ketones Negative Urine Occult Blood 50 H Urine Nitrite Negative Urine Bilirubin Negative Urine Urobilinogen Normal Ur Leukocyte Esterase Negative Urine RBC 0 SEEN Urine WBC 0 SEEN Ur Squamous Epith Cells 0 SEEN Urine Bacteria 0 SEEN Urine Mucus 0 SEEN MRSA (PCR) Negative 02/04/19 05:53 WBC RBC Hgb Hct MCV MCH MCHC RDW RDW Differential Plt Count MPV Immature Gran % (Auto) Neut % (Auto) Lymph % (Auto) [place] % (Auto) Eos % (Auto) Baso % (Auto) Absolute Neuts (auto) Absolute Lymphs (auto) Total Counted Differential Comment ESR PT INR APTT Sodium 143 Potassium 3.8 Chloride 109 H Carbon Dioxide 26.0 Anion Gap 8 BUN 14 Creatinine 0.89 Estim Creat Clear Calc 45.87 Est GFR (MDRD) Af Amer 80 Est GFR (MDRD) Non-Af 66 BUN/Creatinine Ratio 15.7 Glucose 93 Calcium 8.4 L Total Bilirubin AST ALT Alkaline Phosphatase Troponin I C-React Prot Ext Range Total Protein Albumin Globulin Albumin/Globulin Ratio Triglycerides 137 Cholesterol 138 LDL Cholesterol 80 VLDL Cholesterol 27 HDL Cholesterol 31 L Urine Color Urine Clarity Urine pH Ur Specific [place] Urine Protein Urine Glucose (UA) Urine Ketones Urine Occult Blood Urine Nitrite Urine Bilirubin Urine Urobilinogen Ur Leukocyte Esterase Urine RBC Urine WBC Ur Squamous Epith Cells Urine Bacteria Urine Mucus MRSA (PCR) Medical Necessity - Tobacco Use Smoking Status: Never smoker Tobacco Use: Non-smoker Assessment/Plan All Active Problems (Last Reviewed 01/25/19 @ 11:59 by Anika Choudhary) Stroke (Acute) PFO (patent foramen ovale) (Ruled-out) 1. Acute right MCA stroke, recent CVA times two [address] unremarkable. MRI of brain with contrast shows 2 left-sided meningiomas. Initial MRI of brain without contrast showed acute right MCA stroke. Dr. Upton, neurology consulted. PT/OT. Fall precautions. Obtain records from recent [facility] stay. Obtain echocardiogram if not done within recent hospitalization. X-ray of hip and pelvis without acute fracture or dislocation. Neurology recommending changing Xarelto to Eliquis 5 mg twice daily. Neck CTA unremarkable. 2. Hyperkalemia-resolved. 3. Right lower extremity cellulitis- strep appearance. IV zosyn. Blood cultures pending. 4. Multiple myeloma/low risk MDS-follows with oncology, Dr. Gómez. On acyclovir, Velcade, dexamethasone. 5. Chronic right lobe liver lesion/Chronic left upper lobe lung nodule-continue outpatient follow-up. 6. History of brain meningioma requiring gamma radiation 7. Chronic macrocytic anemia-stable. DVT prophylaxis-Eliquis. This patient was seen by CHARLES Sanchez under the supervision of Dr. Russ.
[2019-02-04 14:53] LABS: Hemoglobin A1c 5.6 % (4.2-6.3)
[2019-02-04] MEDS: Rivaroxaban 20 MG Tablet PO (17:38)
--- NOTE | 2019-02-04 20:27 | NURSING ---
Addendum entered by Tiny Arroyo 02/04/19 20:31: Pt unable to look left when instructed to look left, but is able to look to the left when this RN is at the pt left. Original Note: Pt unable to raise left arm on command. Able to hold left arm up (with drift) when assisted with lifting arm. Pt struggling to look completely to the left when gaze is assessed. No movement to left leg.
--- NOTE | 2019-02-04 21:00 | CT_ITS ---
STUDY: CT BRAIN WITHOUT CONTRAST REASON FOR EXAM: Female, 73 years old. Left side flaccid, dizziness. RADIATION DOSAGE (If Supplied By Facility): CTDIvol = ( 44.99 ) mGy, DLP = ( 8112.98 ) mGycm TECHNIQUE: Transaxial CT imaging of the brain was performed without administration of intravenous contrast material. Individualized dose optimization techniques were used for this CT. COMPARISON: MRI brain 02/04/2019, 02/03/2019. CT head 02/03/2019. FINDINGS: Normal soft tissue structures. Normal calvarium. There is mild cerebral atrophy with widening of the extra-axial spaces and ventricular dilatation. Normal white matter tracts of the cerebral hemispheres. There is no intracranial hemorrhage. There are no findings of an acute ischemic infarction. 2 cm calcified, extra-axial left parasagittal lesion, unchanged. 5 mm left frontal calcified meningioma, unchanged. Normal visualized paranasal sinuses. CT/Brain/Head without Contrast IMPRESSION: 1. No acute findings. Acute infarct previously reported by MRI is not demonstrable on CT scan. 2. Stable meningiomas. Electronically Signed: Leslie Hutchins MD at 22:26 EDT Tel , Service support ,
--- NOTE | 2019-02-04 21:23 | PCM.HOSP.N ---
Hospitalist Note Contacted by nursing staff with concerns for increasing NIH stroke scale. Discussed case with neurology and CT head ordered. Patient did have recent MRI with contrast on day of current symptomatology secondary to meningioma history. Per discussion with neurology they noted she did not have any concerning vascular findings on CTA head and neck. Preliminary CT head view with no acute concerns for bleeds and findings likely secondary to meningioma; however, neurologist notified that imaging has been performed and uploaded and he will review and contact hospitalist physician. Per discussion with neurology will also transition to the ICU, continue plan for initiation of Eliquis in a.m. as had been dosed with Xarelto during the day today, not TPA candidate. Physical examination: General: awake, alert, oriented x 3. Skin: normal color, turgor, no icterus, cyanosis. HEENT: AT/NC, EOMI, PERRLA, MMM. Extremities: no cyanosis, clubbing, or edema. Neurological: patient awake, alert, oriented x 3; cognitive function appears intact; pupils equally reactive to light and accomodation; cranial nerves II-XII grossly normal, unable to move L side upon request but if held up will hold with drift to bed shortly, sensation intact, L sided inattention new from prior.
--- NOTE | 2019-02-04 21:26 | CCHN_ITS ---
Hospitalist Note Contacted by nursing staff with concerns for increasing NIH stroke scale. Discussed case with neurology and CT head ordered. Patient did have recent MRI with contrast on day of current symptomatology secondary to meningioma history. Per discussion with neurology they noted she did not have any concerning vascular findings on CTA head and neck. Preliminary CT head view with no acute concerns for bleeds and findings likely secondary to meningioma; however, neurologist notified that imaging has been performed and uploaded and he will r eview and contact hospitalist physician. Per discussion with neurology will also transition to the ICU, continue plan for initiation of Eliquis in a.m. as had been dosed with Xarelto during the day today, not TPA candidate. Physical examination: General: awake, alert, oriented x 3. Skin: normal color, turgor, no icterus, cyanosis. HEENT: AT/NC, EOMI, PERRLA, MMM. Extremities: no cyanosis, clubbing, or edema. Neurological: patient awake, alert, oriented x 3; cognitive function appears intact; pupils equally reactive to light and accomodation; cranial nerves II-XII grossly normal, unable to move L side upon request but if held up will hold with drift to bed shortly, sensation intact, L sided inattention new from prior.
--- NOTE | 2019-02-04 21:40 | NURSING ---
Dr. Treadwell met this RN and the pt in CT. Dr Treadwell assessed the pt. She ordered for the pt to be moved to ICU for closer monitoring. Pt transported to ICU by bed. Verbal report given to NAYAN Harrison. This RN unsuccessfully attempted to contact the pt . This RN called pt Daughter (Nasrin) and notified her of the transfer to ICU. Daughter expresses thanks.
[2019-02-04] MEDS: Atorvastatin Calcium 80 MG Tablet PO (22:13)
[2019-02-04] MEDS: 0.9% Normal Saline 1,000 ML 125 ML IV (22:31)
[2019-02-04] MEDS: Ipratropium Bromide 0.06% NASAL SPRAY 2 SPRAY NASAL (22:38)
[2019-02-05] VITALS (19 sets, daily range): BP systolic 103–167; BP diastolic 52–99; PULSE 80–101; RESP 12–27; TEMP 36.3–36.7; O2SAT 91–99; BMI 27.3
[2019-02-05] MEDS: Acetaminophen 325 MG Tablet 650 MG PO ×2 (01:39→21:23)
[2019-02-05] MEDS: 0.9% Normal Saline 1,000 ML 125 ML IV (06:39)
--- NOTE | 2019-02-05 07:33 | PCM.PROGNOTE ---
Patient Problems: Active and Suspected Problems (Last Reviewed 01/25/19 @ 11:59 by Anika Choudhary) Stroke (Acute) Subjective: The patient is a 73-year-old female with a past medical history of multiple myeloma (treated by Dr. Gómez), mild low dysplastic syndrome, a stable lung nodule in the left upper lobe, chronic right lobe liver lesion with benign biopsy, meningiomas and recent BL ischemic CVA's(at [facility]) who was admitted to the hospital for sudden onset dysequilibrium with inability to stand/walk without assistance. MRI showed new ischemic CVA. She is on Xarelto for PAF and Dr. Upton wanted her to transition to Eliquis which will start today. GILBERT at [facility] was negative for PFO. The reports have been requisitioned. On 02/04 in the AM she had increased weakness on the left side and a repeat MRI was obtained and showed new new findings. During the night on 02/04 she began to demonstrate left side neglect. Repeat non-contrasted CTB showed no acute findings. She was transferred to the ICU for closer observation. Also at admission PE was consistent with cellulitis of the right medial ankle > left lateral ankle. She is being treated with Clindamycin for presumed Streptococcal cellulitis. At the recommendation of Dr. Gómez lupus anticoagulant and anticardiolipin antibodies IGG and IGM have been ordered and are pending. Day #3 antibiotics-clindamycin She has been afebrile since admission Vital signs are stable. All lab and imaging was personally reviewed. Blood cultures drawn 02/03/2019 have no growth to date Lupus anticoagulant and anticardiolipin IgM and IgG are pending. Her left medial ankle is feeling much better since the antibiotics were started. Denies SOB, CP, N/V/dysuria. She is urinating a lot due to the IVF's. - Physical Exam General: Alert, Oriented x3, Cooperative, - - falt affect, tearful HEENT: Atraumatic, PERRLA, EOMI, Normocephalic Oral: Moist Mucosa, No Gingival or Mucosal Lesions/ Ulcerations Neck: Supple, No JVD, Negative Carotid Bruits, No Nuchal Rigidity, Trachea Midline Lungs: Clear to auscultation, Normal air movement Cardiovascular: Regular rate, Regular Rhythm, Normal S1, Normal S2, No murmurs, No rub noted, No Gallop, - - Telemetry since admission has only shown NSR with no AF Abdomen: Bowel Sounds Present, Soft, Non Tender, Non-Distended, No Hepato-splenomegaly Extremities: No clubbing, No cyanosis, No edema, Peripheral Pulses Normal Skin: - - The brawny edema of the left medial maleolus is much improved since admission and is scant at the present time. There is minimal erythema and the purple petechiae have dramatically improved. The warmth to touch is now limited to immediate area around the left medial malleolus Musculoskeletal: No Muscle Wasting Neurological: Cranial nerves II-XII grossly intact, - - she has 3/5 stregth in the LUE and 2-3/5 strength in the LLE and the left leg feels very heavy. She has some neglect of the LUE and lifts her right arm when I instruct her to lift the left. When I lift the arm she can hold it up but it drifts down. No facial asymmetry Psych/Mental Status: Flat Affect, Depressed Vital Signs Temp Pulse Resp BP Pulse Ox 98.0 F 85 15 156/68 H 95 02/05/19 04:00 02/05/19 06:00 02/05/19 06:00 02/05/19 06:00 02/05/19 06:00 Oxygen Delivery Method Room Air Weight: 151 lb 0.266 oz Body Mass Index (BMI) 27.3 Intake and Output for Last 24 Hours 02/03/19 02/04/19 02/05/19 23:59 23:59 23:59 Intake Total 807.3 / 807.3 2250.7 / 2250.7 895 / 895 Output Total 150 / 150 775 / 775 Balance 807.3 / 807.3 2100.7 / 2100.7 120 / 120 Laboratory Tests Past 24 Hrs 02/04/19 02/04/19 02/04/19 05:36 05:53 05:53 WBC 7.2 RBC 3.81 L Hgb 12.9 Hct 38.1 MCV 100.0 H MCH 33.9 H MCHC 33.9 RDW 13.9 RDW Differential 50.5 H Plt Count 107 L MPV 12.4 H Immature Gran % (Auto) 0.600 Neut % (Auto) 45.5 L Lymph % (Auto) 16.1 L [place] % (Auto) 34.4 H Eos % (Auto) 3.1 Baso % (Auto) 0.3 Absolute Neuts (auto) 3.3 Absolute Lymphs (auto) 1.16 Total Counted Not Reportable Differential Comment SCANNED PT Ratio INR APTT Thrombin Time Thrombin Time Mix Lupus Anticoag aPTT Sodium 143 Potassium 3.8 Chloride 109 H Carbon Dioxide 26.0 Anion Gap 8 BUN 14 Creatinine 0.89 Estim Creat Clear Calc 45.87 Est GFR (MDRD) Af Amer 80 Est GFR (MDRD) Non-Af 66 BUN/Creatinine Ratio 15.7 Glucose 93 Hemoglobin A1c Calcium 8.4 L Triglycerides 137 Cholesterol 138 LDL Cholesterol 80 VLDL Cholesterol 27 HDL Cholesterol 31 L Anti-Cardiolipin IgG Ab Anti-Cardiolipin IgM Ab MRSA (PCR) Negative 02/04/19 02/04/19 02/04/19 05:53 17:45 17:45 WBC RBC Hgb Hct MCV MCH MCHC RDW RDW Differential Plt Count MPV Immature Gran % (Auto) Neut % (Auto) Lymph % (Auto) [place] % (Auto) Eos % (Auto) Baso % (Auto) Absolute Neuts (auto) Absolute Lymphs (auto) Total Counted Differential Comment PT Ratio Pending INR Pending APTT Pending Thrombin Time Pending Thrombin Time Mix Pending Lupus Anticoag aPTT Pending Sodium Potassium Chloride Carbon Dioxide Anion Gap BUN Creatinine Estim Creat Clear Calc Est GFR (MDRD) Af Amer Est GFR (MDRD) Non-Af BUN/Creatinine Ratio Glucose Hemoglobin A1c 5.6 Calcium Triglycerides Cholesterol LDL Cholesterol VLDL Cholesterol HDL Cholesterol Anti-Cardiolipin IgG Ab Pending Pending Anti-Cardiolipin IgM Ab Pending Pending MRSA (PCR) Medical Necessity - Tobacco Use Smoking Status: Never smoker Tobacco Use: Non-smoker Assessment/Plan All Active Problems (Last Reviewed 01/25/19 @ 11:59 by Anika Choudhary) Stroke (Acute) PFO (patent foramen ovale) (Ruled-out) Impressions 1. Acute ischemic MCA CVA R posterior frontal lobe with gait instability and vertigo at admission with progression to LUE neglect and left side weakness 2. REcent hx of BL ischemic CVA's....admitted to [facility] for 6 days. GILBERT there reportedly did not show a PFO. She had been told by Dr. Sotelo in the past she may have a PFO 3. Multiple Myeloma - treated by Dr. Gómez 4. Depression - not adequately treated 5. Cellulitis of the RLE around the medial malleolus and mild on the left lateral ankle 6. chronic R lobe of the liver lesion - bx negative for malignancy 7. meningioma - has had gamma knife in the past 8. ? hx of PAF from [facility] BUT we have never received the records that have now been requisitioned [address] Garner following DC from [facility] and was placed on Warfarin. She then saw Dr. Wilson who stopped the Warfarin and started Xarelto......I presume this is for PAF but, I have not seen any documentation from [facility] to show she had AF and she has not had an event monitor or a holtor. She has NOT had any AF this admission. She had another stroke on Xarelto and Dr. Upton feels he sees more treatment failure with Xarelto and so he recommended switching to Eliquis which has been done. I spke with Dr. Gómez about hypercoagulable states with MM and he had me order a lupus anticoagulant and Anticardiolipin IGM and IGG which are currently pending. If one of these is + or if she has recurrent stroke on Eliquis then I suspect she will need to either be on Lovenox or Warfarin...will discuss with Dr. Gómez when the results are available Decrease the IV fluids - she is very well hydrated Increase the antidepressant dose Maintain in the ICU Recheck lab in the a.m. Met with her son Bhavin and explained what is going on, working diagnosis and plans going forward. I answered all his questions Will need to be evaluated for transfer to Rehab floor when ready. I think she may benefit from psychotherapy to learn how to deal with the CA and now the strokes.....has always been healthy prior to this Code Visit Inpatient E&M: 06918 Subs Hosp L3
[2019-02-05] MEDS: Aspirin 81 MG TAB.CHEW PO (10:52)
[2019-02-05] MEDS: Gabapentin 100 MG Capsule PO ×2 (10:53→18:08)
[2019-02-05] MEDS: Calcium (Elemental) 500 MG Tablet PO (10:54)
[2019-02-05] MEDS: Ipratropium Bromide 0.06% NASAL SPRAY 2 SPRAY NASAL ×2 (10:55→21:21)
[2019-02-05] MEDS: Acyclovir 200 MG Capsule 400 MG PO ×2 (10:56→21:21)
[2019-02-05] MEDS: APIXABAN 5 MG TABLET PO ×2 (10:56→21:21)
[2019-02-05] MEDS: Escitalopram Oxalate 10 MG Tablet PO (10:56)
--- NOTE | 2019-02-05 12:57 | NURSING ---
PT/OT working w/pt
[2019-02-05] MEDS: 0.9% Normal Saline 1,000 ML 75 ML IV (19:43)
[2019-02-05] MEDS: Atorvastatin Calcium 80 MG Tablet PO (21:21)
[2019-02-06] VITALS (13 sets, daily range): BP systolic 131–155; BP diastolic 52–94; PULSE 79–110; RESP 12–20; TEMP 36.4–37.1; O2SAT 95–99; BMI 27.3
[2019-02-06 04:55] LABS: Hemoglobin 11.6 g/dl (12.0-15.0); Mean Corp Hgb Conc 33.1 g/gl (32-36); Mean Corpuscular Hgb 33.4 pg (27.0-32.0); Mean Corpuscular Volume 100.9 fL (81-99); Mean Platelet Vol. 11.2 fl (6.2-12.0); Platelet Count 147 K/mm3 (150-450); RBC Distribution Width CV 13.5 % (11.6-14.6); RBC Distribution Width SD 48.7 fl (35.1-43.9); Red Blood Count 3.47 M/mm3 (4.2-5.4); White Blood Count 7.7 K/mm3 (4.4-11.0)
[2019-02-06 05:22] LABS: Anion Gap 9 (5-15); BUN 14 mg/dL (7-18); Calcium,Total 8.7 mg/dL (8.5-10.1); Chloride 109 mmol/L (98-107); Creatinine, Serum 0.93 mg/dL (0.55-1.02); EST Glomerular Filtration Rate 62 mL/min (>60); Est Glom Filt Rate - Afr Amer 75 mL/min (>60); Glucose 97 mg/dL (74-106); Potassium 4.2 mmol/L (3.5-5.1); Scan Indicated on CBC? Y/N NO; Sodium Level 145 mmol/L (136-145)
[2019-02-06] MEDS: 0.9% Normal Saline 1,000 ML 75 ML IV ×2 (09:13→23:56)
[2019-02-06] MEDS: Aspirin 81 MG TAB.CHEW PO (09:14)
[2019-02-06] MEDS: Calcium (Elemental) 500 MG Tablet PO (09:14)
[2019-02-06] MEDS: Gabapentin 100 MG Capsule PO ×2 (09:14→18:53)
[2019-02-06] MEDS: Acyclovir 200 MG Capsule 400 MG PO ×2 (09:16→21:01)
[2019-02-06] MEDS: APIXABAN 5 MG TABLET PO ×2 (09:16→21:00)
--- NOTE | 2019-02-06 09:16 | PCM.PROGNOTE ---
Patient Problems: Active and Suspected Problems (Last Reviewed 01/25/19 @ 11:59 by Anika Choudhary) Stroke (Acute) Subjective: Chief complaint: Follow-up after admission for acute ischemic stroke and right lower extremity/right foot cellulitis. Patient seen and examined. No acute events overnight. Weakness on the left side almost the same, minimal improvement. Denies any more headache. Denied blurred vision or slurred speech. Denies dizziness or vertigo today. Denies chest pain or shortness of breath. Her vital signs are stable. - Physical Exam General: Alert, Oriented x3, Cooperative, No apparent distress HEENT: Atraumatic, PERRLA, EOMI, Normocephalic Oral: Moist Mucosa, No Gingival or Mucosal Lesions/ Ulcerations Neck: Supple, No JVD, Negative Carotid Bruits, Trachea Midline, Thyroid Normal Size and Texture Lungs: Clear to auscultation, No rhonchi, No wheeze, No rales, Diminished Cardiovascular: Regular rate, Regular Rhythm, Normal S1, Normal S2, PMI Normal Abdomen: Bowel Sounds Present, Soft, Non Tender, Non-Distended, No Hepato-splenomegaly Extremities: No clubbing, No cyanosis, No edema Skin: No rashes, No breakdown, - - Small area of mild erythema measuring about 3 x 2 cm on the medial aspect of the right ankle. Lymphatic: No Cervical, Supraclavicular, or Inguinal Adenopathy Neurological: Cranial nerves II-XII grossly intact, - - Power on the right side is 5 x 5. Power on the left side is 3 x 5. Psych/Mental Status: Normal Affect, Appropriate, Alert and oriented to time, place, person, mood and affect Vital Signs Temp Pulse Resp BP Pulse Ox 97.7 F L 82 16 155/63 H 99 02/06/19 08:00 02/06/19 08:00 02/06/19 08:00 02/06/19 08:00 02/06/19 08:00 Oxygen Delivery Method Room Air Weight: 151 lb 0.266 oz Body Mass Index (BMI) 27.3 Intake and Output for Last 24 Hours 02/04/19 02/05/19 02/06/19 23:59 23:59 23:59 Intake Total 2250.7 / 2250.7 2749 / 2749 1258 / 1258 Output Total 150 / 150 2425 / 2425 1100 / 1100 Balance 2100.7 / 2100.7 324 / 324 158 / 158 Microbiology Past 72 Hours 02/03/19 20:10 Blood Culture - Preliminary Blood Culture (Wb) - Left Wrist No growth in 48 hours. 02/03/19 19:57 Blood Culture - Preliminary Blood Culture (Wb) - Anticubital Right No growth in 48 hours. Laboratory Tests Past 24 Hrs 02/06/19 02/06/19 04:40 04:40 WBC 7.7 RBC 3.47 L Hgb 11.6 L Hct 35.0 L MCV 100.9 H MCH 33.4 H MCHC 33.1 RDW 13.5 RDW Differential 48.7 H Plt Count 147 L MPV 11.2 Sodium 145 Potassium 4.2 Chloride 109 H Carbon Dioxide 27.0 Anion Gap 9 BUN 14 Creatinine 0.93 Estim Creat Clear Calc 43.90 Est GFR (MDRD) Af Amer 75 Est GFR (MDRD) Non-Af 62 BUN/Creatinine Ratio 15.0 Glucose 97 Calcium 8.7 Clinical Impression(s) from Imaging Studies Brain CT 02/03/19 13:00 IMPRESSION: Stable examination. No evidence of intracranial hemorrhage. Electronically Signed: Kenyon Carmen, at 14:18 EDT , Service support , Hip/Pelvis X-Ray 02/03/19 13:45 IMPRESSION: Degenerative changes of the sacroiliac joints. No fracture is seen. Electronically Signed: Kenyon Carmen, at 14:19 EDT , Service support , Chest X-Ray 02/03/19 13:56 IMPRESSION: No acute abnormality is seen. Electronically Signed: Kenyon Carmen, at 14:20 EDT , Service support , Brain MRI 02/03/19 15:46 IMPRESSION: 1. Acute right posterior frontal infarct in the right pericallosal arterial distribution. 2. A 1.9 cm extra-axial left parietal lesion, probable meningioma. 3. A 5 mm left frontal extra-axial lesion, possible meningioma. Given the history of multiple myeloma, consider nonemergent contrast sequences for further evaluation. 4. Mild microvascular ischemic changes. Mild atrophy. Electronically Signed: Leslie Hutchins MD at 20:29 EDT Tel , Service support , ADDENDUM: 02/03/192045 IMPRESSION: 1. Acute right posterior frontal infarct in the right pericallosal arterial distribution. 2. A 1.9 cm extra-axial left parietal lesion, probable meningioma. 3. A 5 mm left frontal extra-axial lesion, possible meningioma. Given the history of multiple myeloma, consider nonemergent contrast sequences for further evaluation. 4. Mild microvascular ischemic changes. Mild atrophy. N.B. : The above information has been verbally conveyed by Leslie Hutchins MD to Charge Nurse Shikha Portillo RN, on 02/03/2019 20:39:05 (ET). Electronically Signed: Leslie Hutchins MD at 20:29 EDT Tel , Service support , ADDENDUM: 02/03/192046 ADDENDUM: 02/04/19 100 Head CTA 02/04/19 08:38 IMPRESSION: 1. No large vessel occlusion or intracranial aneurysm. 2. Stable CT brain since previous day. Electronically Signed: Franky Cole MD at 10:28 EDT , Service support , Neck CTA 02/04/19 08:38 IMPRESSION: 1. No large vessel occlusion or intracranial aneurysm. 2. Stable CT brain since previous day. Electronically Signed: Franky Cole MD at 10:28 EDT , Service support , Brain MRI 02/04/19 08:39 IMPRESSION: 2 left-sided meningiomas are present as described. Electronically Signed: Prakash Gooden MD at 10:56 EDT Tel , Service support , Brain CT 02/04/19 21:00 IMPRESSION: 1. No acute findings. Acute infarct previously reported by MRI is not demonstrable on CT scan. 2. Stable meningiomas. Electronically Signed: Leslie Hutchins MD at 22:26 EDT Tel , Service support , Medical Necessity - Tobacco Use Smoking Status: Never smoker Tobacco Use: Non-smoker Assessment/Plan All Active Problems (Last Reviewed 01/25/19 @ 11:59 by Anika Choudhary) Stroke (Acute) PFO (patent foramen ovale) (Ruled-out) This is a 73 years old female patient admitted because of vertigo and questionable syncopal episode, found to have acute right MCA stroke with resultant left-sided hemiparesis, had a recent history of stroke around 8 weeks ago and also found to have acute right lower extremity/right foot cellulitis. #1 acute right MCA ischemic stroke: With resultant left-sided hemiparesis. She had a recent stroke 8 weeks ago and she was on Xarelto. Xarelto was discontinued and she was started on Eliquis during this admission. Now, she is on aspirin, Eliquis and statins. Her vital signs are stable, blood pressure is stable. Reportedly, she had GILBERT few weeks ago at [facility] which was negative for PFO. EKG revealed normal sinus rhythm without evidence of acute ischemic changes or cardiac arrhythmias. 2D echocardiogram ordered. Neurology on the case. Plan to continue same treatment, patient will need placement to rehabilitation for physical and Occupational Therapy. #2 right lower extremity/right foot cellulitis: She is on IV clindamycin. She has been afebrile, no leukocytosis. Swelling and erythema of the right leg and foot significantly improved. Plan to DC IV clindamycin, start oral clindamycin to complete 5 days of treatment. #3 multiple myeloma: Blood counts are stable, she does have chronic anemia and chronic thrombocytopenia. She is on Velcade injections every week, has been following up with Dr. Gómez. He recommended anticardiolipin and lupus anticoagulant and they are pending at this time. #4 history of meningioma: Status post gamma radiation. MRI brain reviewed. #5 history of chronic right lobe liver lesion: Reportedly, this was negative for malignancy. Recommend follow-up as outpatient. #6 depression: Continue Lexapro. #7 DVT prophylaxis: Continue Eliquis. This note was generated with [employer] dictation software. It may contain incorrect words, spelling, and punctuation that were not noted in checking the note before signing. Code Visit Inpatient E&M: 19679 Subs Hosp L2
[2019-02-06] MEDS: Ipratropium Bromide 0.06% NASAL SPRAY 2 SPRAY NASAL ×2 (09:17→21:00)
[2019-02-06] MEDS: Escitalopram Oxalate 20 MG Tablet PO (09:18)
--- NOTE | 2019-02-06 09:28 | PN_ITS ---
Patient Problems: Active and Suspected Problems (Last Reviewed 01/25/19 @ 11:59 by Anika Choudhary) Stroke (Acute) Subjective: Chief complaint: Follow-up after admission for acute ischemic stroke and right lower extremity/right foot cellulitis. Patient seen and examined. No acute events overnight. Weakness on the left side almost the same, minimal improvement. Denies any more headache. Denied blurred vision or slurred speech. Denies dizziness or vertigo today. Denies chest pain or shortness of breath. Her vital signs are stable. - Physical Exam General: Alert, Oriented x3, Cooperative, No apparent distress HEENT: Atraumatic, PERRLA, EOMI, Normocephalic Oral: Moist Mucosa, No Gingival or Mucosal Lesions/ Ulcerations Neck: Supple, No JVD, Negative Carotid Bruits, Trachea Midline, Thyroid Normal Size and Texture Lungs: Clear to auscultation, No rhonchi, No wheeze, No rales, Diminished Cardiovascular: Regular rate, Regular Rhythm, Normal S1, Normal S2, PMI Normal Abdomen: Bowel Sounds Present, Soft, Non Tender, Non-Distended, No Hepato- splenomegaly Extremities: No clubbing, No cyanosis, No edema Skin: No rashes, No breakdown, - - Small area of mild erythema measuring about 3 x 2 cm on the medial aspect of the right ankle. Lymphatic: No Cervical, Supraclavicular, or Inguinal Adenopathy Neurological: Cranial nerves II-XII grossly intact, - - Power on the right side is 5 x 5. Power on the left side is 3 x 5. Psych/Mental Status: Normal Affect, Appropriate, Alert and oriented to time, place, person, mood and affect Vital Signs Temp Pulse Resp BP Pulse Ox 97.7 F L 82 16 155/63 H 99 02/06/19 08:00 02/06/19 08:00 02/06/19 08:00 02/06/19 08:00 02/06/19 08:00 Oxygen Delivery Method Room Air Weight: 151 lb 0.266 oz Body Mass Index (BMI) 27.3 Intake and Output for Last 24 Hours 02/04/19 02/05/19 02/06/19 23:59 23:59 23:59 Intake Total 2250.7 / 2250.7 2749 / 2749 1258 / 1258 Output Total 150 / 150 2425 / 2425 1100 / 1100 Balance 2100.7 / 2100.7 324 / 324 158 / 158 Microbiology Past 72 Hours 02/03/19 20:10 Blood Culture - Preliminary Blood Culture (Wb) - Left Wrist No growth in 48 hours. 02/03/19 19:57 Blood Culture - Preliminary Blood Culture (Wb) - Anticubital Right No growth in 48 hours. Laboratory Tests Past 24 Hrs 02/06/19 02/06/19 04:40 04:40 WBC 7.7 RBC 3.47 L Hgb 11.6 L Hct 35.0 L MCV 100.9 H MCH 33.4 H MCHC 33.1 RDW 13.5 RDW Differential 48.7 H Plt Count 147 L MPV 11.2 Sodium 145 Potassium 4.2 Chloride 109 H Carbon Dioxide 27.0 Anion Gap 9 BUN 14 Creatinine 0.93 Estim Creat Clear Calc 43.90 Est GFR (MDRD) Af Amer 75 Est GFR (MDRD) Non-Af 62 BUN/Creatinine Ratio 15.0 Glucose 97 Calcium 8.7 Clinical Impression(s) from Imaging Studies Brain CT 02/03/19 13:00 IMPRESSION: Stable examination. No evidence of intracranial hemorrhage. Electronically Signed: Kenyon Carmen, at 14:18 EDT , Service support , Hip/Pelvis X-Ray 02/03/19 13:45 IMPRESSION: Degenerative changes of the sacroiliac joints. No fracture is seen. Electronically Signed: Kenyon Carmen, at 14:19 EDT , Service support , Chest X-Ray 02/03/19 13:56 IMPRESSION: No acute abnormality is seen. Electronically Signed: Kenyon Carmen, at 14:20 EDT , Service support , Brain MRI 02/03/19 15:46 IMPRESSION: 1. Acute right posterior frontal infarct in the right pericallosal arterial distribution. 2. A 1.9 cm extra-axial left parietal lesion, probable meningioma. 3. A 5 mm left frontal extra-axial lesion, possible meningioma. Given the history of multiple myeloma, consider nonemergent contrast sequences for further evaluation. 4. Mild microvascular ischemic changes. Mild atrophy. Electronically Signed: Leslie Hutchins MD at 20:29 EDT Tel , Service support , ADDENDUM: 02/03/192045 IMPRESSION: 1. Acute right posterior frontal infarct in the right pericallosal arterial distribution. 2. A 1.9 cm extra-axial left parietal lesion, probable meningioma. 3. A 5 mm left frontal extra-axial lesion, possible meningioma. Given the history of multiple myeloma, consider nonemergent contrast sequences for further evaluation. 4. Mild microvascular ischemic changes. Mild atrophy. N.B. : The above information has been verbally conveyed by Leslie Hutchins MD to Charge Nurse Shikha Portillo RN, on 02/03/2019 20:39:05 (ET). Electronically Signed: Leslie Hutchins MD at 20:29 EDT Tel , Service support , ADDENDUM: 02/03/192046 ADDENDUM: 02/04/19 100 Head CTA 02/04/19 08:38 IMPRESSION: 1. No large vessel occlusion or intracranial aneurysm. 2. Stable CT brain since previous day. Electronically Signed: Franky Cole MD at 10:28 EDT , Service support , Neck CTA 02/04/19 08:38 IMPRESSION: 1. No large vessel occlusion or intracranial aneurysm. 2. Stable CT brain since previous day. Electronically Signed: Franky Cole MD at 10:28 EDT , Service support , Brain MRI 02/04/19 08:39 IMPRESSION: 2 left-sided meningiomas are present as described. Electronically Signed: Prakash Gooden MD at 10:56 EDT Tel , Service support , Brain CT 02/04/19 21:00 IMPRESSION: 1. No acute findings. Acute infarct previously reported by MRI is not demonstrable on CT scan. 2. Stable meningiomas. Electronically Signed: Leslie Hutchins MD at 22:26 EDT Tel , Service support , Medical Necessity - Tobacco Use Smoking Status: Never smoker Tobacco Use: Non-smoker Assessment/Plan All Active Problems (Last Reviewed 01/25/19 @ 11:59 by Anika Choudhary) Stroke (Acute) PFO (patent foramen ovale) (Ruled-out) This is a 73 years old female patient admitted because of vertigo and questionable syncopal episode, found to have acute right MCA stroke with resultant left-sided hemiparesis, had a recent history of stroke around 8 weeks ago and also found to have acute right lower extremity/right foot cellulitis. #1 acute right MCA ischemic stroke: With resultant left-sided hemiparesis. She had a recent stroke 8 weeks ago and she was on Xarelto. Xarelto was discontinued and she was started on Eliquis during this admission. Now, she is on aspirin, Eliquis and statins. Her vital signs are stable, blood pressure is stable. Reportedly, she had GILBERT few weeks ago at [facility] which was negative for PFO. EKG revealed normal sinus rhythm without evidence of acute ischemic changes or cardiac arrhythmias. 2D echocardiogram ordered. Neurology on the case. Plan to continue same treatment, patient will need placement to rehabilitation for physical and Occupational Therapy. #2 right lower extremity/right foot cellulitis: She is on IV clindamycin. She has been afebrile, no leukocytosis. Swelling and erythema of the right leg and foot significantly improved. Plan to DC IV clindamycin, start oral clindamycin to complete 5 days of treatment. #3 multiple myeloma: Blood counts are stable, she does have chronic anemia and chronic thrombocytopenia. She is on Velcade injections every week, has been following up with Dr. Gómez. He recommended anticardiolipin and lupus anticoagulant and they are pending at this time. #4 history of meningioma: Status post gamma radiation. MRI brain reviewed. #5 history of chronic right lobe liver lesion: Reportedly, this was negative for malignancy. Recommend follow-up as outpatient. #6 depression: Continue Lexapro. #7 DVT prophylaxis: Continue Eliquis. This note was generated with [employer] dictation software. It may contain incorrect words, spelling, and punctuation that were not noted in checking the note before signing. Code Visit Inpatient E&M: 30767 Subs Hosp L2
--- NOTE | 2019-02-06 10:16 | PCM.PN.NEU ---
Patient Problems: Active and Suspected Problems (Last Reviewed 01/25/19 @ 11:59 by Anika Choudhary) Stroke (Acute) Subjective: No new complaints. Now is admitted to the PCU. Denies headache. - Physical Exam General: Alert, Oriented x3, Cooperative, No apparent distress HEENT: MARCELA CASEY Neurological: - - On examination, her only deficits are mild apraxia/ataxia in her left upper and left lower extremity without drift. Sensation is intact. Coordination is intact. There are no cranial nerve deficits, follows all commands, alert, answers questions appropriately. Her NIH stroke score now is only 2 for ataxia of the left upper and left lower extremity although I think this may be better characterized as apraxia. Vital Signs Temp Pulse Resp BP Pulse Ox 36.5 C L 82 16 155/63 H 99 02/06/19 08:00 02/06/19 08:00 02/06/19 08:00 02/06/19 08:00 02/06/19 08:00 Oxygen Delivery Method Room Air Weight: 68.5 kg Body Mass Index (BMI) 27.3 Intake and Output for Last 24 Hours 02/04/19 02/05/19 02/06/19 23:59 23:59 23:59 Intake Total 2250.7 / 2250.7 2749 / 2749 1258 / 1258 Output Total 150 / 150 2425 / 2425 1100 / 1100 Balance 2100.7 / 2100.7 324 / 324 158 / 158 Microbiology Past 72 Hours 02/03/19 20:10 Blood Culture - Preliminary Blood Culture (Wb) - Left Wrist No growth in 48 hours. 02/03/19 19:57 Blood Culture - Preliminary Blood Culture (Wb) - Anticubital Right No growth in 48 hours. Laboratory Tests Past 24 Hrs 02/06/19 02/06/19 04:40 04:40 WBC 7.7 RBC 3.47 L Hgb 11.6 L Hct 35.0 L MCV 100.9 H MCH 33.4 H MCHC 33.1 RDW 13.5 RDW Differential 48.7 H Plt Count 147 L MPV 11.2 Sodium 145 Potassium 4.2 Chloride 109 H Carbon Dioxide 27.0 Anion Gap 9 BUN 14 Creatinine 0.93 Estim Creat Clear Calc 43.90 Est GFR (MDRD) Af Amer 75 Est GFR (MDRD) Non-Af 62 BUN/Creatinine Ratio 15.0 Glucose 97 Calcium 8.7 Current Medications Generic Name Dose Route Start Last Admin Trade Name Freq PRN Reason Stop Dose Admin Acetaminophen 650 mg 02/05/19 01:04 02/05/19 21:23 Tylenol PO 650 mg Q6H PRN PRN Administration Non-cardiac pain (mod-severe) Acyclovir 400 mg 02/03/19 22:00 02/06/19 09:16 Zovirax PO 400 mg BID [facility] Administration Alprazolam 0.25 mg 02/03/19 18:39 Xanax PO TID PRN PRN ANXIETY Apixaban 5 mg 02/05/19 10:00 02/06/19 09:16 Eliquis PO 5 mg BID [facility] Administration Aspirin 81 mg 02/04/19 08:00 02/06/19 09:14 Aspirin, Baby PO 81 mg DAILY@0800 [facility] Administration Atorvastatin Calcium 80 mg 02/03/19 22:00 02/05/19 21:21 Lipitor PO 80 mg QHS [facility] Administration Calcium Carbonate 500 mg 02/04/19 08:00 02/06/19 09:14 Os[facility]Nils 500 [facility] Cholecalciferol 5,000 unit 02/04/19 08:00 02/06/19 09:15 Vitamin D [facility] 5,000 [facility] Administration Clindamycin HCl 450 mg 02/06/19 14:00 Cleocin PO TID [facility] Escitalopram Oxalate 20 mg 02/06/19 10:00 02/06/19 09:18 Lexapro PO 20 mg DAILY [facility] Administration Gabapentin 100 mg 02/04/19 08:00 02/06/19 09:14 [facility] Administration Hydrocodone Bit/Homatropine Methylb 5 ml 02/04/19 16:46 Hycodan Syrup PO QHS PRN PRN COUGH Sodium Chloride 250 mls @ 15 mls/hr 02/04/19 21:55 IV .[id number] PRN SALINE FLUSH Sodium Chloride 1,000 mls @ 75 mls/hr 02/05/19 10:55 02/06/19 09:13 IV 75 mls/hr .[id number] [facility] Administration Ipratropium [place] 2 spray 02/04/19 22:00 02/06/19 09:17 Atrovent Nasal [place] (G) NASAL 2 spray BID [facility] Administration Sodium Chloride 5 - 15 ml 02/04/19 00:45 02/03/19 20:10 IV 10 ml UD PRN Administration SALINE FLUSH Medical Necessity - Tobacco Use Smoking Status: Never smoker Tobacco Use: Non-smoker Assessment/Plan All Active Problems (Last Reviewed 01/25/19 @ 11:59 by Anika Choudhary) Stroke (Acute) PFO (patent foramen ovale) (Ruled-out) A. fib, right MCA distribution infarct. Her event happened on Wednesday, 4 days ago so would continue to follow permissive hypertension, continue NIH evaluations for the next 24 hours and reevaluate. On Eliquis. Continue therapies will need inpatient rehab.
--- NOTE | 2019-02-06 10:20 | PN.NEURO_ITS ---
Patient Problems: Active and Suspected Problems (Last Reviewed 01/25/19 @ 11:59 by Anika Choudhary) Stroke (Acute) Subjective: No new complaints. Now is admitted to the PCU. Denies headache. - Physical Exam General: Alert, Oriented x3, Cooperative, No apparent distress HEENT: MARCELA CASEY Neurological: - - On examination, her only deficits are mild apraxia/ataxia in her left upper and left lower extremity without drift. Sensation is intact. Coordination is intact. There are no cranial nerve deficits, follows all commands, alert, answers questions appropriately. Her NIH stroke score now is only 2 for ataxia of the left upper and left lower extremity although I think this may be better characterized as apraxia. Vital Signs Temp Pulse Resp BP Pulse Ox 36.5 C L 82 16 155/63 H 99 02/06/19 08:00 02/06/19 08:00 02/06/19 08:00 02/06/19 08:00 02/06/19 08:00 Oxygen Delivery Method Room Air Weight: 68.5 kg Body Mass Index (BMI) 27.3 Intake and Output for Last 24 Hours 02/04/19 02/05/19 02/06/19 23:59 23:59 23:59 Intake Total 2250.7 / 2250.7 2749 / 2749 1258 / 1258 Output Total 150 / 150 2425 / 2425 1100 / 1100 Balance 2100.7 / 2100.7 324 / 324 158 / 158 Microbiology Past 72 Hours 02/03/19 20:10 Blood Culture - Preliminary Blood Culture (Wb) - Left Wrist No growth in 48 hours. 02/03/19 19:57 Blood Culture - Preliminary Blood Culture (Wb) - Anticubital Right No growth in 48 hours. Laboratory Tests Past 24 Hrs 02/06/19 02/06/19 04:40 04:40 WBC 7.7 RBC 3.47 L Hgb 11.6 L Hct 35.0 L MCV 100.9 H MCH 33.4 H MCHC 33.1 RDW 13.5 RDW Differential 48.7 H Plt Count 147 L MPV 11.2 Sodium 145 Potassium 4.2 Chloride 109 H Carbon Dioxide 27.0 Anion Gap 9 BUN 14 Creatinine 0.93 Estim Creat Clear Calc 43.90 Est GFR (MDRD) Af Amer 75 Est GFR (MDRD) Non-Af 62 BUN/Creatinine Ratio 15.0 Glucose 97 Calcium 8.7 Current Medications Generic Name Dose Route Start Last Admin Trade Name Freq PRN Reason Stop Dose Admin Acetaminophen 650 mg 02/05/19 01:04 02/05/19 21:23 Tylenol PO 650 mg Q6H PRN PRN Administration Non-cardiac pain (mod-severe) Acyclovir 400 mg 02/03/19 22:00 02/06/19 09:16 Zovirax PO 400 mg BID [facility] Administration Alprazolam 0.25 mg 02/03/19 18:39 Xanax PO TID PRN PRN ANXIETY Apixaban 5 mg 02/05/19 10:00 02/06/19 09:16 Eliquis PO 5 mg BID [facility] Administration Aspirin 81 mg 02/04/19 08:00 02/06/19 09:14 Aspirin, Baby PO 81 mg DAILY@0800 [facility] Administration Atorvastatin Calcium 80 mg 02/03/19 22:00 02/05/19 21:21 Lipitor PO 80 mg QHS [facility] Administration Calcium Carbonate 500 mg 02/04/19 08:00 02/06/19 09:14 [facility]ils [facility] Cholecalciferol 5,000 unit 02/04/19 08:00 02/06/19 09:15 Vitamin D [facility] 5,[facility] Clindamycin HCl 450 mg 02/06/19 14:00 Cleocin PO TID [facility] Escitalopram Oxalate 20 mg 02/06/19 10:00 02/06/19 09:18 Lexapro PO 20 mg DAILY [facility] Administration Gabapentin 100 mg 02/04/19 08:00 02/06/19 09:14 [facility] Hydrocodone Bit/Homatropine Methylb 5 ml 02/04/19 16:46 Hycodan Syrup PO QHS PRN PRN COUGH Sodium Chloride 250 mls @ 15 mls/hr 02/04/19 21:55 IV .[id number] PRN SALINE FLUSH Sodium Chloride 1,000 mls @ 75 mls/hr 02/05/19 10:55 02/06/19 09:13 IV 75 mls/hr .[id number] [facility] Administration Ipratropium [place] 2 spray 02/04/19 22:00 02/06/19 09:17 Atrovent Nasal [place] (G) NASAL 2 spray BID [facility] Administration Sodium Chloride 5 - 15 ml 02/04/19 00:45 02/03/19 20:10 IV 10 ml UD PRN Administration SALINE FLUSH Medical Necessity - Tobacco Use Smoking Status: Never smoker Tobacco Use: Non-smoker Assessment/Plan All Active Problems (Last Reviewed 01/25/19 @ 11:59 by Anika Choudhary) Stroke (Acute) PFO (patent foramen ovale) (Ruled-out) A. fib, right MCA distribution infarct. Her event happened on Wednesday, 4 days ago so would continue to follow permissive hypertension, continue NIH evaluations for the next 24 hours and reevaluate. On Eliquis. Continue therapies will need inpatient rehab.
--- NOTE | 2019-02-06 10:54 | CASEMGMT ---
Addendum entered by Silvina Guadalupe 02/06/19 12:33: SW did speak w/pt in room, confirmed w/pt agreeable to inpt rehab referral(she spoke w/physician on weekend and had been agreeable). SW let her know as soon as this SW hears, will let her know if rehab can take her. SW also offered support to pt as she spoke of all she has been going through medically; pt reports to have supportive and children. SW will continue to follow. HERIBERTO Frias Original Note: SW made referral to inpt rehab, waiting to hear if they can take pt. SW will continue to follow. HERIBERTO Frias
--- NOTE | 2019-02-06 11:49 | CASEMGMT ---
According to admmichael RN, as per pt, has LW/POA but cannot bring in the forms. is POA. HERIBERTO Frias
--- NOTE | 2019-02-06 12:29 | CASEMGMT ---
PHQ-9 administered. Pt's score does not indicated depression. HERIBERTO Frias
[2019-02-06] MEDS: Clindamycin HCl 150 MG Capsule 450 MG PO ×2 (14:43→21:00)
[2019-02-06] MEDS: 0.9% NaCl Peripheral Flush Adult/Peds IV (14:43)
--- NOTE | 2019-02-06 14:54 | CHAPLAIN ---
Type of Pastoral Visit _x__ Initial Visit ___ Follow-up Visit ___ On-call Visit ___ General Patient Visit ___ Spiritual Assessment ___ Family Conference ___ Bereavement ___ Rapid Response ___ Code Blue ___ Other (describe below) Pastoral Care Referral From _x__ Patient ___ Family ___ Nurse ___ Physician ___ Container Washer Machine ___ Social Security Benefits Interviewer ___ Other (describe below) Sacrament/Intervention _x__ Active listening ___ Anointing ___ Rastafari ___ Bereavement ___ Communion _x__ Orly exploration ___ _x__ Life review _x__ Prayer ___ Reconciliation ___ Sacrament of Sick _x__ Supportive presence ___ Wedding ___ Other (describe below) Pastoral Comments patient has had multiple health issues in last couple of months; pt states she is feeling the pressure of the cost this will be on them; conversation goes around what blessings patient has and how that can be helpful; pt 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
[2019-02-06] MEDS: Atorvastatin Calcium 80 MG Tablet PO (21:01)
[2019-02-07 00:05] VITALS: BP 146/67; PULSE 88; RESP 16; TEMP 36.7; O2SAT 95
[2019-02-07] MEDS: Acetaminophen 325 MG Tablet 650 MG PO ×2 (00:10→08:23)
[2019-02-07 03:00] VITALS: PULSE 86
[2019-02-07 04:05] VITALS: BP 149/68; PULSE 80; RESP 16; TEMP 36.8; O2SAT 93
[2019-02-07] MEDS: Clindamycin HCl 150 MG Capsule 450 MG PO ×2 (05:42→13:40)
[2019-02-07 06:50] VITALS: PULSE 81
[2019-02-07 08:05] VITALS: BP 168/69; PULSE 98; RESP 20; TEMP 36.9; O2SAT 97
[2019-02-07] MEDS: Escitalopram Oxalate 20 MG Tablet PO (08:19)
[2019-02-07] MEDS: Calcium (Elemental) 500 MG Tablet PO (08:20)
[2019-02-07] MEDS: Aspirin 81 MG TAB.CHEW PO (08:20)
[2019-02-07] MEDS: APIXABAN 5 MG TABLET PO (08:20)
[2019-02-07] MEDS: Gabapentin 100 MG Capsule PO (08:20)
[2019-02-07] MEDS: Acyclovir 200 MG Capsule 400 MG PO (08:20)
[2019-02-07] MEDS: Ipratropium Bromide 0.06% NASAL SPRAY 2 SPRAY NASAL (08:21)
[2019-02-07 08:55] VITALS: BMI 27.3
--- NOTE | 2019-02-07 09:13 | DCINST_ITS ---
- Discharge Diagnoses Current Active Problems: Current Active and Chronic Problems (Last Reviewed 01/25/19 @ 11:59 by Anika Choudhary) Stroke (Acute) You will use the following diet at home:: Cardiac Your food should be the consistency of: Regular Discharge Activity: Return to Normal Activity Weight Bearing Status: Weight bearing as tolerated Call your doctor if you observe: Fever of 101 or Higher, Shortness of breath, Dizziness, Fainting spells, Chest pain, Increased palpitations (irregular heartbeat), Uncontrolled pain Allergies/Adverse Reactions: Allergies morphine Adverse Reaction (Severe, Verified 02/03/19 12:19) Nausea Medications to take at Discharge Gabapentin [Neurontin] 100 mg PO BID 03/24/16 Bortezomib SC [Velcade SC] 3.5 mg SQ QWEEK 11/11/18 Dexamethasone [Decadron] 40 mg PO QWEEK #40 tablet 01/11/19 Acyclovir 400 mg PO BID 90 Days #180 tablet 01/18/19 Calcium (Elemental) [Os-Nils 500] 500 mg PO DAILY 02/03/19 Cholecalciferol (Vitamin D3) [Vitamin D3] 5,000 unit PO DAILY 02/03/19 Escitalopram Oxalate [Lexapro] 10 mg PO DAILY 02/03/19 Multivitamin with Minerals [Multiple Vitamin] 1 tab PO DAILY 02/03/19 Apixaban [Eliquis] 5 mg PO BID #90 tab 02/07/19 Aspirin [Aspirin, Baby] 81 mg PO DAILY@0800 #90 tab.chew 02/07/19 Atorvastatin Calcium [Lipitor] 80 mg PO QHS #30 tab 02/07/19 Clindamycin [Cleocin] 450 mg PO TID 2 Days #18 cap 02/07/19 The following prescriptions were given: Aspirin [Aspirin, Baby] 81 mg PO DAILY@0800 #90 tab.chew Atorvastatin Calcium [Lipitor] 80 mg PO QHS #30 tab Apixaban [Eliquis] 5 mg PO BID #90 tab Clindamycin [Cleocin] 450 mg PO TID 2 Days #18 cap Primary Care Physician: Augusta Wilson DO [Primary Care Provider] - Please follow up with your Primary Care Physician in: 2 week. Test Results: Test results from this visit will be discussed in further detail at your follow- up appointment, if applicable. Please Follow Up With: Bandar Garner MD When: 1 week.
--- NOTE | 2019-02-07 09:39 | CASEMGMT ---
Addendum entered by Rani Ontiveros 02/07/19 14:34: Patient was approved to go to [facility] 4th floor Inpatient Rehab Unit. Rani AVILES Original Note: CHELA called María Elena in Rehab Unit. She is waiting on Dr Garner to evaluate patient and let her know if he will accept patient in the Rehab Unit. Await Dr Garner's approval or denial. Rani BISHOP MSW
[2019-02-07 12:00] VITALS: BP 146/60; PULSE 77; RESP 16; TEMP 36.8; O2SAT 96
--- NOTE | 2019-02-07 14:41 | PCM.DC.SUM ---
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 #2 right lower extremity/right foot cellulitis. #3 multiple myeloma. - Secondary Discharge Diagnosis Chronic Problems (Last Reviewed 01/25/19 @ 11:59 by Anika Choudhary) Cerebrovascular disease (Chronic) Macrocytosis (Chronic) MDS (myelodysplastic syndrome), low grade (Chronic) Myeloma (Chronic) Lung nodule (Chronic) Left upper lobe, May 2018 Liver lesion, right lobe (Chronic) Negative biopsy for malignancy June 29, 2018 Anemia (Chronic) Tremor (Chronic) Cognitive dysfunction (Chronic) Meningioma (Chronic) Hospital Course and Treatment Imaging Results: Clinical Impression(s) from Imaging Studies Brain CT 02/03/19 13:00 IMPRESSION: Stable examination. No evidence of intracranial hemorrhage. Electronically Signed: Kenyon Carmen, at 14:18 EDT , Service support , Hip/Pelvis X-Ray 02/03/19 13:45 IMPRESSION: Degenerative changes of the sacroiliac joints. No fracture is seen. Electronically Signed: Kenyon Carmen, at 14:19 EDT , Service support , Chest X-Ray 02/03/19 13:56 IMPRESSION: No acute abnormality is seen. Electronically Signed: Kenyon Carmen, at 14:20 EDT , Service support , Brain MRI 02/03/19 15:46 IMPRESSION: 1. Acute right posterior frontal infarct in the right pericallosal arterial distribution. 2. A 1.9 cm extra-axial left parietal lesion, probable meningioma. 3. A 5 mm left frontal extra-axial lesion, possible meningioma. Given the history of multiple myeloma, consider nonemergent contrast sequences for further evaluation. 4. Mild microvascular ischemic changes. Mild atrophy. Electronically Signed: Leslie Hutchins MD at 20:29 EDT Tel , Service support , ADDENDUM: 02/03/192045 IMPRESSION: 1. Acute right posterior frontal infarct in the right pericallosal arterial distribution. 2. A 1.9 cm extra-axial left parietal lesion, probable meningioma. 3. A 5 mm left frontal extra-axial lesion, possible meningioma. Given the history of multiple myeloma, consider nonemergent contrast sequences for further evaluation. 4. Mild microvascular ischemic changes. Mild atrophy. N.B. : The above information has been verbally conveyed by Leslie Hutchins MD to Charge Nurse Shikha Portillo RN, on 02/03/2019 20:39:05 (ET). Electronically Signed: Leslie Hutchins MD at 20:29 EDT Tel , Service support , ADDENDUM: 02/03/192046 ADDENDUM: 02/04/19 100 Head CTA 02/04/19 08:38 IMPRESSION: 1. No large vessel occlusion or intracranial aneurysm. 2. Stable CT brain since previous day. Electronically Signed: Franky Cole MD at 10:28 EDT , Service support , Neck CTA 02/04/19 08:38 IMPRESSION: 1. No large vessel occlusion or intracranial aneurysm. 2. Stable CT brain since previous day. Electronically Signed: Franky Cole MD at 10:28 EDT , Service support , Brain MRI 02/04/19 08:39 IMPRESSION: 2 left-sided meningiomas are present as described. Electronically Signed: Prakash Gooden MD at 10:56 EDT Tel , Service support , Brain CT 02/04/19 21:00 IMPRESSION: 1. No acute findings. Acute infarct previously reported by MRI is not demonstrable on CT scan. 2. Stable meningiomas. Electronically Signed: Leslie Hutchins MD at 22:26 EDT Tel , Service support , Dr. Garner, neurology. Operations: None Procedures: EKG Summary of Care Provided: Patient seen and examined on the day of discharge and appeared to be stable to be discharged to inpatient rehab unit. Weakness on the left side is getting better every day. Denies any other complaints. Her vital signs are stable. The patient is a 73 year old F admitted because of vertigo and questionable syncopal episode and she was found to have acute right MCA stroke with resultant left-sided hemiparesis. This patient had a history of recent stroke 8 weeks ago with questionable history of atrial fibrillation and was started on Xarelto. During her recent history of stroke, she was admitted to [facility]. During this hospital admission, initial CT scan brain showed no acute findings. MRI brain performed and revealed acute right posterior frontal infarct, revealed left parietal meningioma, left frontal meningioma. CTA of the neck revealed mild right proximal internal carotid stenosis 40%, minimal atherosclerosis of the left carotid bulb, 20% stenosis of the left subclavian artery origin. CTA of the head revealed no evidence of large vessel occlusion or intracranial aneurysm. Neurology consulted and recommended to start patient on Eliquis and to discontinue Xarelto. Patient was treated with aspirin, statins as well as Eliquis. Her EKG revealed normal sinus rhythm without evidence of acute ischemic changes or cardiac arrhythmias during this admission. Second day after admission, patient developed worsening symptoms with left-sided neglect for which CT scan brain repeated and showed no acute findings. Patient did have resultant mild to moderate left-sided hemiparesis. Her blood pressure was in the range of 1 40-150 after the stroke which is in the pressure range. No antihypertensive medications given. Also, she was found to have right lower extremity/right foot cellulitis for which she was treated with IV clindamycin and later, she was switched to oral clindamycin. Erythema and swelling of the right leg and right significantly improved and almost gone. Patient discharged to inpatient rehabitation unit in a stable medical condition, discharged on aspirin, high intensity statin and Eliquis 5 mg p.o. twice daily, discharged on clindamycin p.o. 450 mg p.o. 3 times daily for 2 more days to complete total 5 days of treatment for right foot/right leg cellulitis, no antihypertensive medications given upon discharge, recommended follow-up with PCP in 2 weeks, follow-up with neurology in 1 week. - Physical Exam General: Alert, Oriented x3, Cooperative, No apparent distress HEENT: PERRLA, EOMI, Normocephalic Oral: Moist Mucosa, No Gingival or Mucosal Lesions/ Ulcerations Neck: Supple, No JVD, Negative Carotid Bruits, Trachea Midline, Thyroid Normal Size and Texture Lungs: Clear to auscultation, Normal air movement, No rhonchi, No wheeze Cardiovascular: Regular rate, Regular Rhythm, Normal S1, Normal S2, No murmurs Abdomen: Bowel Sounds Present, Soft, Non Tender, Non-Distended, No Hepato-splenomegaly Extremities: No clubbing, No cyanosis, No edema Skin: No rashes, No breakdown Lymphatic: No Cervical, Supraclavicular, or Inguinal Adenopathy Neurological: Cranial nerves II-XII grossly intact, - - Power on the right side is 5 x 5. Power on the left upper extremity is 3+ by 5, power on the left lower extremity is 4 x 5. Psych/Mental Status: Normal Affect, Appropriate Vital Signs Temp Pulse Resp BP Pulse Ox 98.2 F 77 16 146/60 H 96 02/07/19 12:00 02/07/19 12:00 02/07/19 12:00 02/07/19 12:00 02/07/19 12:00 Oxygen Delivery Method Room Air Weight: 151 lb 10.848 oz Body Mass Index (BMI) 27.3 Intake and Output for Last 24 Hours 02/05/19 02/06/19 02/07/19 23:59 23:59 23:59 Intake Total 2749 / 2749 2833.7 / 2833.7 1510 / 1510 Output Total 2425 / 2425 2110 / 2110 1300 / 1300 Balance 324 / 324 723.7 / 723.7 210 / 210 Microbiology Past 72 Hours 02/03/19 20:10 Blood Culture - Preliminary Blood Culture (Wb) - Left Wrist No growth in 48 hours. 02/03/19 19:57 Blood Culture - Preliminary Blood Culture (Wb) - Anticubital Right No growth in 48 hours. Discharge Activity: Return to Normal Activity Weight Bearing Status: Weight bearing as tolerated Call your doctor if you observe: Fever of 101 or Higher, Shortness of breath, Dizziness, Fainting spells, Chest pain, Increased palpitations (irregular heartbeat), Uncontrolled pain Home Medications: Medications to take at Discharge Gabapentin [Neurontin] 100 mg PO BID 03/24/16 Bortezomib SC [Velcade SC] 3.5 mg SQ QWEEK 11/11/18 Calcium (Elemental) [Os-Nils 500] 500 mg PO DAILY 02/03/19 Cholecalciferol (Vitamin D3) [Vitamin D3] 5,000 unit PO DAILY 02/03/19 Escitalopram Oxalate [Lexapro] 10 mg PO DAILY 02/03/19 Multivitamin with Minerals [Multiple Vitamin] 1 tab PO DAILY 02/03/19 Acyclovir 400 mg PO BID 02/07/19 Apixaban [Eliquis] 5 mg PO BID 02/07/19 Aspirin [Aspirin, Baby] 81 mg PO DAILY@0800 02/07/19 Atorvastatin Calcium [Lipitor] 80 mg PO QHS 02/07/19 Clindamycin [Cleocin] 450 mg PO TID 02/07/19 Dexamethasone [Decadron] 40 mg PO QWEEK 02/07/19 Primary Care Physician: Augusta Wilson DO [Primary Care Provider] - Please follow up with your Primary Care Physician in: 2 week. Please Follow Up With: Bandar Garner MD When: 1 week. Please Follow Up With: Augusta Wilson DO Disposition: Inpt Rehab Unit/Facility Minutes spent on discharge:: 33 Patient Condition:: Stable Medical Necessity - Tobacco Use Smoking Status: Never smoker Tobacco Use: Non-smoker Meaningful Use Info Meaningful Use Diagnoses (Choose all that apply): Ischemic CVA - CVA Therapy Assessed for PT,OT and/or ST?: Yes - Ischemic Stroke Antithrombotic order at d/c?: Yes Dx of Atrial fib/flutter?: No Anticoagulant at discharge?: Yes Statins at discharge?: Yes Primary Dx Acute Ischemic CVA?: Yes IV tPA ordered during stay?: No Reason IV t-PA not ordered: Treatment not Indicated Code Visit Inpatient E&M: 37543 Disch Hosp
--- NOTE | 2019-02-07 14:51 | DS.PCM_ITS ---
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 #2 right lower extremity/right foot cellulitis. #3 multiple myeloma. - Secondary Discharge Diagnosis Chronic Problems (Last Reviewed 01/25/19 @ 11:59 by Anika Choudhary) Cerebrovascular disease (Chronic) Macrocytosis (Chronic) MDS (myelodysplastic syndrome), low grade (Chronic) Myeloma (Chronic) Lung nodule (Chronic) Left upper lobe, May 2018 Liver lesion, right lobe (Chronic) Negative biopsy for malignancy June 29, 2018 Anemia (Chronic) Tremor (Chronic) Cognitive dysfunction (Chronic) Meningioma (Chronic) Hospital Course and Treatment Imaging Results: Clinical Impression(s) from Imaging Studies Brain CT 02/03/19 13:00 IMPRESSION: Stable examination. No evidence of intracranial hemorrhage. Electronically Signed: Kenyon Carmen, at 14:18 EDT , Service support , Hip/Pelvis X-Ray 02/03/19 13:45 IMPRESSION: Degenerative changes of the sacroiliac joints. No fracture is seen. Electronically Signed: Kenyon Carmen, at 14:19 EDT , Service support , Chest X-Ray 02/03/19 13:56 IMPRESSION: No acute abnormality is seen. Electronically Signed: Kenyon Carmen, at 14:20 EDT , Service support , Brain MRI 02/03/19 15:46 IMPRESSION: 1. Acute right posterior frontal infarct in the right pericallosal arterial distribution. 2. A 1.9 cm extra-axial left parietal lesion, probable meningioma. 3. A 5 mm left frontal extra-axial lesion, possible meningioma. Given the history of multiple myeloma, consider nonemergent contrast sequences for further evaluation. 4. Mild microvascular ischemic changes. Mild atrophy. Electronically Signed: Leslie Hutchins MD at 20:29 EDT Tel , Service support , ADDENDUM: 02/03/192045 IMPRESSION: 1. Acute right posterior frontal infarct in the right pericallosal arterial distribution. 2. A 1.9 cm extra-axial left parietal lesion, probable meningioma. 3. A 5 mm left frontal extra-axial lesion, possible meningioma. Given the history of multiple myeloma, consider nonemergent contrast sequences for further evaluation. 4. Mild microvascular ischemic changes. Mild atrophy. N.B. : The above information has been verbally conveyed by Leslie Hutchins MD to Charge Nurse Shikha Portillo RN, on 02/03/2019 20:39:05 (ET). Electronically Signed: Leslie Hutchins MD at 20:29 EDT Tel , Service support , ADDENDUM: 02/03/192046 ADDENDUM: 02/04/19 100 Head CTA 02/04/19 08:38 IMPRESSION: 1. No large vessel occlusion or intracranial aneurysm. 2. Stable CT brain since previous day. Electronically Signed: Franky Cole MD at 10:28 EDT , Service support , Neck CTA 02/04/19 08:38 IMPRESSION: 1. No large vessel occlusion or intracranial aneurysm. 2. Stable CT brain since previous day. Electronically Signed: Franky Cole MD at 10:28 EDT , Service support , Brain MRI 02/04/19 08:39 IMPRESSION: 2 left-sided meningiomas are present as described. Electronically Signed: Prakash Gooden MD at 10:56 EDT Tel , Service support , Brain CT 02/04/19 21:00 IMPRESSION: 1. No acute findings. Acute infarct previously reported by MRI is not demonstrable on CT scan. 2. Stable meningiomas. Electronically Signed: Leslie Hutchins MD at 22:26 EDT Tel , Service support , Dr. Garner, neurology. Operations: None Procedures: EKG Summary of Care Provided: Patient seen and examined on the day of discharge and appeared to be stable to be discharged to inpatient rehab unit. Weakness on the left side is getting better every day. Denies any other complaints. Her vital signs are stable. The patient is a 73 year old F admitted because of vertigo and questionable syncopal episode and she was found to have acute right MCA stroke with resultant left-sided hemiparesis. This patient had a history of recent stroke 8 weeks ago with questionable history of atrial fibrillation and was started on Xarelto. Du ring her recent history of stroke, she was admitted to [facility]. During this hospital admission, initial CT scan brain showed no acute findings. MRI brain performed and revealed acute right posterior frontal infarct, revealed left parietal meningioma, left frontal meningioma. CTA of the neck revealed mild right proximal internal carotid stenosis 40%, minimal atherosclerosis of th e left carotid bulb, 20% stenosis of the left subclavian artery origin. CTA of the head revealed no evidence of large vessel occlusion or intracranial aneurysm. Neurology consulted and recommended to start patient on Eliquis and to discontinue Xarelto. Patient was treated with aspirin, statins as well as Eliquis. Her EKG revealed normal sinus rhythm without evidence of acute ischemic changes or cardiac arrhythmias during this admission. Second day after admission, patient developed worsening symptoms with left-sided neglect for which CT scan brain repeated and showed no acute findings. Patient did have resultant mild to moderate left-sided hemiparesis. Her blood pressure was in the range of 1 40-150 after the stroke which is in the pressure range. No antihypertensive medications given. Also, she was found to have right lower extremity/right foot cellulitis for which she was treated with IV clindamycin and later, she was switched to oral clindamycin. Erythema and swelling of the right leg and right significantly improved and almost gone. Patient discharged to inpatient rehabitation unit in a stable medical condition, discharged on aspirin, high intensity statin and Eliquis 5 mg p.o. twice daily, discharged on clindamycin p.o. 450 mg p.o. 3 times daily for 2 more days to complete total 5 days of treatment for right foot/right leg cellulitis, no antihypertensive medications given upon discharge, recommended follow-up with PCP in 2 weeks, follow-up with neurology in 1 week. - Physical Exam General: Alert, Oriented x3, Cooperative, No apparent distress HEENT: PERRLA, EOMI, Normocephalic Oral: Moist Mucosa, No Gingival or Mucosal Lesions/ Ulcerations Neck: Supple, No JVD, Negative Carotid Bruits, Trachea Midline, Thyroid Normal Size and Texture Lungs: Clear to auscultation, Normal air movement, No rhonchi, No wheeze Cardiovascular: Regular rate, Regular Rhythm, Normal S1, Normal S2, No murmurs Abdomen: Bowel Sounds Present, Soft, Non Tender, Non-Distended, No Hepato- splenomegaly Extremities: No clubbing, No cyanosis, No edema Skin: No rashes, No breakdown Lymphatic: No Cervical, Supraclavicular, or Inguinal Adenopathy Neurological: Cranial nerves II-XII grossly intact, - - Power on the right side is 5 x 5. Power on the left upper extremity is 3+ by 5, power on the left lower extremity is 4 x 5. Psych/Mental Status: Normal Affect, Appropriate Vital Signs Temp Pulse Resp BP Pulse Ox 98.2 F 77 16 146/60 H 96 02/07/19 12:00 02/07/19 12:00 02/07/19 12:00 02/07/19 12:00 02/07/19 12:00 Oxygen Delivery Method Room Air Weight: 151 lb 10.848 oz Body Mass Index (BMI) 27.3 Intake and Output for Last 24 Hours 02/05/19 02/06/19 02/07/19 23:59 23:59 23:59 Intake Total 2749 / 2749 2833.7 / 2833.7 1510 / 1510 Output Total 2425 / 2425 2110 / 2110 1300 / 1300 Balance 324 / 324 723.7 / 723.7 210 / 210 Microbiology Past 72 Hours 02/03/19 20:10 Blood Culture - Preliminary Blood Culture (Wb) - Left Wrist No growth in 48 hours. 02/03/19 19:57 Blood Culture - Preliminary Blood Culture (Wb) - Anticubital Right No growth in 48 hours. Discharge Activity: Return to Normal Activity Weight Bearing Status: Weight bearing as tolerated Call your doctor if you observe: Fever of 101 or Higher, Shortness of breath, Dizziness, Fainting spells, Chest pain, Increased palpitations (irregular heartbeat), Uncontrolled pain Home Medications: Medications to take at Discharge Gabapentin [Neurontin] 100 mg PO BID 03/24/16 Bortezomib SC [Velcade SC] 3.5 mg SQ QWEEK 11/11/18 Calcium (Elemental) [Os-Nils 500] 500 mg PO DAILY 02/03/19 Cholecalciferol (Vitamin D3) [Vitamin D3] 5,000 unit PO DAILY 02/03/19 Escitalopram Oxalate [Lexapro] 10 mg PO DAILY 02/03/19 Multivitamin with Minerals [Multiple Vitamin] 1 tab PO DAILY 02/03/19 Acyclovir 400 mg PO BID 02/07/19 Apixaban [Eliquis] 5 mg PO BID 02/07/19 Aspirin [Aspirin, Baby] 81 mg PO DAILY@0800 02/07/19 Atorvastatin Calcium [Lipitor] 80 mg PO QHS 02/07/19 Clindamycin [Cleocin] 450 mg PO TID 02/07/19 Dexamethasone [Decadron] 40 mg PO QWEEK 02/07/19 Primary Care Physician: Augusta Wilson DO [Primary Care Provider] - Please follow up with your Primary Care Physician in: 2 week. Please Follow Up With: Bandar Garner MD When: 1 week. Please Follow Up With: Augusta Wilson DO Disposition: Inpt Rehab Unit/Facility Minutes spent on discharge:: 33 Patient Condition:: Stable Medical Necessity - Tobacco Use Smoking Status: Never smoker Tobacco Use: Non-smoker Meaningful Use Info Meaningful Use Diagnoses (Choose all that apply): Ischemic CVA - CVA Therapy Assessed for PT,OT and/or ST?: Yes - Ischemic Stroke Antithrombotic order at d/c?: Yes Dx of Atrial fib/flutter?: No Anticoagulant at discharge?: Yes Statins at discharge?: Yes Primary Dx Acute Ischemic CVA?: Yes IV tPA ordered during stay?: No Reason IV t-PA not ordered: Treatment not Indicated Code Visit Inpatient E&M: 20565 Disch Hosp
[2019-02-08 07:06] LABS: Dilute Prothrombin Time (dPT) 49.8 sec (0.0-55.0); Dilute Russell Viper Venom 53.8 sec (0.0-47.0); Dilute Russell Viper Venom Mix 42.8 sec (0.0-47.0); Thrombin Time 16.6 sec (0.0-23.0); dPT Confirm Ratio 0.87 Ratio (0.00-1.40)
[2019-02-08 11:05] LABS: Interpretation Comment: (.)
[2019-02-08 11:14] LABS: Anti-Cardiolipin Ab, IgG, Qn 128 GPL U/mL (0-14); Anti-Cardiolipin Ab, IgM, Qn < 9 MPL U/mL (0-12)
== END 2019-02-07 13:42 | DRG 65 ==
LOC: ED 13:09 → PCU 16:13 → ICU 02-04 21:24 → PCU 02-06 09:49
PROVIDERS: Nurse Practitioner Family; Admitting Provider Internal Medicine; Emergency Provider Emergency Medicine; Family Provider Family Medicine; PCP Family Medicine; Referring Provider Family Medicine; Visit Provider Hospitalist
DX: I63.511 Cerebral infarction due to unspecified occlusion or stenosis of right middle cerebral artery (principal); C90.00 Multiple myeloma not having achieved remission; L03.116 Cellulitis of left lower limb; L03.115 Cellulitis of right lower limb; G81.94 Hemiplegia, unspecified affecting left nondominant side; E87.5 Hyperkalemia; D32.0 Benign neoplasm of cerebral meninges; D53.9 Nutritional anemia, unspecified; Z86.73 Personal history of transient ischemic attack (TIA), and cerebral infarction without residual deficits; R29.703 NIHSS score 3
CPT/HCPCS: 36415; 70450; 70496; 70498; 70551; 70552; 71045; 73502; 80048; 80053; 80061; 81001; 83036; 84484; 85025; 85027; 85610; 85652; 85730; 86140; 86147; 87040; 87641; 92507; 92523; 92526; 92610; 93005; 93971; 97163; 97166; 97530; 99285; J7030; Q9967; A4216

== ENCOUNTER 2019-02-07 14:01 | Inpatient (IN) | payer MEDICARE, OTHER, SELFPAY ==
[2019-02-07 08:55] VITALS: BMI 27.3
[2019-02-07 14:25] VITALS: BP 116/59; PULSE 86; RESP 16; TEMP 36.6; O2SAT 94; BMI 26.1
[2019-02-07 19:02] VITALS: BP 123/68; PULSE 97; RESP 16; TEMP 36.8; O2SAT 96
[2019-02-07 20:19] VITALS: BMI 26.1
[2019-02-07] MEDS: Atorvastatin Calcium 80 MG Tablet PO (21:13)
[2019-02-07] MEDS: Gabapentin 100 MG Capsule PO (21:13)
[2019-02-07] MEDS: Clindamycin HCl 150 MG Capsule 450 MG PO (21:13)
[2019-02-07] MEDS: APIXABAN 5 MG TABLET PO (21:13)
[2019-02-07] MEDS: Acyclovir 200 MG Capsule 400 MG PO (21:14)
--- NOTE | 2019-02-07 23:26 | NURSING ---
Reviewed and agree with [employer] documentation and [facility] charting.
[2019-02-08 06:14] LABS: Absolute Lymphocyte Count 1.67 X10^3/ul (0.83-4.51); Absolute Neutrophil Count 6.5 X10^3/uL (2.0-7.7); Basophil# 0.03 X10^3/uL; Basophil% 0.3 % (0-1); Eosinophil# 0.35 X10^3/uL; Eosinophils% 3.2 % (0-5); Hematocrit 34.5 % (37-47); Hemoglobin 11.5 g/dl (12.0-15.0); Lymphocyte # 1.67 X10^3/ul (4.0); Lymphocyte % 15.2 % (19-41); Mean Corp Hgb Conc 33.3 g/gl (32-36); Mean Corpuscular Hgb 33.5 pg (27.0-32.0); Mean Corpuscular Volume 100.6 fL (81-99); Mean Platelet Vol. 10.8 fl (6.2-12.0); Monocyte# 2.37 X10^3/uL; Monocyte% 21.6 % (0-10); Neutrophil # 6.52 X10^3/uL (2.7-7.7); Neutrophil % 59.3 % (47-70); Platelet Count 212 K/mm3 (150-450); RBC Distribution Width SD 51.4 fl (35.1-43.9); Red Blood Count 3.43 M/mm3 (4.2-5.4)
[2019-02-08 06:15] LABS: Differential Indicated SCAN CRITERIA MET; POSITIVE COUNT NO; POSITIVE DIFFERENTIAL YES; POSITIVE MORPHOLOGY NO
[2019-02-08] MEDS: Clindamycin HCl 150 MG Capsule 450 MG PO ×3 (06:21→22:24)
[2019-02-08 06:25] LABS: Anion Gap 8 (5-15); BUN 21 mg/dL (7-18); BUN/Creat Ratio 25.9 RATIO (10-20); Calcium,Total 8.4 mg/dL (8.5-10.1); Chloride 108 mmol/L (98-107); Creatinine, Serum 0.81 mg/dL (0.55-1.02); EST Glomerular Filtration Rate 73 mL/min (>60); Est Glom Filt Rate - Afr Amer 89 mL/min (>60); Estimated Creatinine Clearance 50.41 ml/min; Glucose 95 mg/dL (74-106); Potassium 4.1 mmol/L (3.5-5.1); Sodium Level 141 mmol/L (136-145)
[2019-02-08 06:33] LABS: Differential Comment SCANNED
[2019-02-08 07:05] VITALS: O2SAT 93
[2019-02-08 07:07] VITALS: BP 148/77; PULSE 101; RESP 18; TEMP 36.3; O2SAT 92
[2019-02-08] MEDS: Acyclovir 200 MG Capsule 400 MG PO ×2 (09:07→22:22)
[2019-02-08] MEDS: Escitalopram Oxalate 10 MG Tablet PO (09:08)
[2019-02-08] MEDS: APIXABAN 5 MG TABLET PO ×2 (09:08→22:23)
[2019-02-08] MEDS: Multivitamins,Ther W-Minerals Tablet 1 TABLET PO (09:08)
[2019-02-08] MEDS: Gabapentin 100 MG Capsule PO ×2 (09:08→22:23)
[2019-02-08] MEDS: Calcium (Elemental) 500 MG Tablet PO (09:08)
[2019-02-08] MEDS: Aspirin 81 MG TAB.CHEW PO (09:08)
--- NOTE | 2019-02-08 10:41 | PCM.HP.STD ---
History of Present Illness Date of Admission: 02/08/19 Chief Complaint: Left-sided weakness, debility Is a 73-year-old right-handed female who is status post hospitalization for a right MCA distribution infarct with left-sided weakness and debility as noted below. She was admitted to the hospital, as below after having symptoms which have improved. She is tolerated therapy but she has not felt to be improved to the extent that she can return home and is therefore admitted to the rehab unit with a goal of restoring her previous level of functional independence. Prior to her stroke she had been diagnosed with atrial fibrillation and been placed on anticoagulation however she was on low-dose Xarelto. per neuro consult:The patient is a 73 year old F PMH stroke, PAF on Xarelto, MDS, multiple myeloma, history of meningioma s/p gamma knife surgery 12 years ago admitted with dizziness. Per patient she started having acute onset dizziness yesterday 02/03/2019 after she woke up in the morning and had a fall. Per patient she did not lose her consciousness and denies any syncopal episode. Was later brought to the ED for further evaluation. Per patient she was admitted about a month ago at [facility] with stroke, per patient she had speech disturbances and left-sided weakness at that time which later resolved (no records available). Per patient she was on Revlimid for chemotherapy when she had the stroke following which Revlimid was discontinued and she has been started on Velcade as well as dexamethasone since then. Since this morning she also feels that there is some weakness in the left upper and lower extremities. She denies any headache, visual disturbances or speech disturbances at present, denies any sensory loss. Per patient she lives with her , denies any frequent falls, does not use any cane or walker to ambulate, and does drive, and does not need any assistance for a day-to-day activities. Per patient at [place] she was told that she had multiple strokes on both the sides of the cerebral hemisphere and later she saw Dr. Garner who per patient started her on Coumadin and it was later changed to Xarelto by her PCP Dr. Augusta Wilson. MRI brain done on admission reported to show acute right posterior frontal infarct in the right pericallosal arterial distribution, 1.9 cm extra-axial left parietal lesion probable meningioma, 5 mm left frontal extra-axial lesion possible meningioma. Past Medical History Past Medical History (Chronic Problems): Chronic Problems (Last Reviewed 01/25/19 @ 11:59 by Anika Choudhary) Cerebrovascular disease (Chronic) Macrocytosis (Chronic) MDS (myelodysplastic syndrome), low grade (Chronic) Myeloma (Chronic) Lung nodule (Chronic) Left upper lobe, May 2018 Liver lesion, right lobe (Chronic) Negative biopsy for malignancy June 29, 2018 Anemia (Chronic) Tremor (Chronic) Cognitive dysfunction (Chronic) Meningioma (Chronic) Medical History: Medical History (Last Reviewed 01/25/19 @ 11:59 by Anika Choudhary) Cellulitis L03.90 left eye -2018 History of hysterectomy Z90.710 Meningioma D32.9 Gamma knife at [facility] ~2000 Osteopenia M85.80 Stroke I63.9 X2 - HOSPITALIZATION FOR 5 DAYS Allergies morphine Adverse Reaction (Severe, Verified 02/03/19 12:19) Nausea Home Medications: Ambulatory Orders Medication Instructions Recorded Gabapentin [Neurontin] 100 mg PO BID 03/24/16 Bortezomib SC [Velcade SC] 3.5 mg SQ QWEEK 11/11/18 Calcium (Elemental) [Os-Nils 500] 500 mg PO DAILY 02/03/19 Cholecalciferol (Vitamin D3) 5,000 unit PO DAILY 02/03/19 [Vitamin D3] Escitalopram Oxalate [Lexapro] 10 mg PO DAILY 02/03/19 Multivitamin with Minerals 1 tab PO DAILY 02/03/19 [Multiple Vitamin] Acyclovir 400 mg PO BID 02/07/19 Apixaban [Eliquis] 5 mg PO BID 02/07/19 Aspirin [Aspirin, Baby] 81 mg PO DAILY@0800 02/07/19 Atorvastatin Calcium [Lipitor] 80 mg PO QHS 02/07/19 Clindamycin [Cleocin] 450 mg PO TID 02/07/19 Dexamethasone [Decadron] 40 mg PO QWEEK 02/07/19 Surgical History: Surgical History (Last Reviewed 02/08/19 @ 10:42 by Bandar Garner MD) History of cholecystectomy Z90.49 Surgical History: cholecystectomy, hysterectomy, tonsillectomy Psychiatric History: No pertinent psych hx 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 Denies: Numbness, Tingling Psychiatric: Denies: Anxiety, Depression, Homicidal Ideations, Suicidal Ideations Hematologic/ Lymphatic: Denies: Easy Bruising, Easy Bleeding VTE Information - Inpt Only VTE Present on Admission: Yes VTE Pharm Prophylaxis ordered?: Yes - Physical Exam General: Alert, Oriented x3, Cooperative, No apparent distress HEENT: Atraumatic, PERRLA, EOMI Lungs: Clear to auscultation Cardiovascular: Irregular Rate Abdomen: Bowel Sounds Present Extremities: No Calf Tenderness Musculoskeletal: No Tenderness to Palpation of Joints or Extremities Neurological: Cranial nerves II-XII grossly intact, - - There is mild left upper and left lower extremity apraxia. Vital Signs Temp Pulse Resp BP Pulse Ox 36.3 C L 101 H 18 148/77 H 92 02/08/19 07:07 02/08/19 07:07 02/08/19 07:07 02/08/19 07:07 02/08/19 07:07 Oxygen Delivery Method Room Air Weight: 66.5 kg Body Mass Index (BMI) 26.1 Intake and Output for Last 24 Hours 02/06/19 02/07/19 02/08/19 23:59 23:59 23:59 Intake Total 320 / 320 Balance 320 / 320 Laboratory Tests Past 24 Hrs 02/08/19 02/08/19 05:50 05:50 WBC 11.0 RBC 3.43 L Hgb 11.5 L Hct 34.5 L MCV 100.6 H MCH 33.5 H MCHC 33.3 RDW 14.0 RDW Differential 51.4 H Plt Count 212 MPV 10.8 Immature Gran % (Auto) 0.400 Neut % (Auto) 59.3 Lymph % (Auto) 15.2 L [place] % (Auto) 21.6 H Eos % (Auto) 3.2 Baso % (Auto) 0.3 Absolute Neuts (auto) 6.5 Absolute Lymphs (auto) 1.67 Total Counted Not Reportable Differential Comment SCANNED Sodium 141 Potassium 4.1 Chloride 108 H Carbon Dioxide 25.0 Anion Gap 8 BUN 21 H Creatinine 0.81 Estim Creat Clear Calc 50.41 Est GFR (MDRD) Af Amer 89 Est GFR (MDRD) Non-Af 73 BUN/Creatinine Ratio 25.9 H Glucose 95 Calcium 8.4 L Assessment/Plan All Active Problems (Last Reviewed 01/25/19 @ 11:59 by Anika Choudhary) Stroke (Acute) PFO (patent foramen ovale) (Ruled-out)
--- NOTE | 2019-02-08 10:44 | HP.PCM_ITS ---
History of Present Illness Date of Admission: 02/08/19 Chief Complaint: Left-sided weakness, debility Is a 73-year-old right-handed female who is status post hospitalization for a right MCA distribution infarct with left-sided weakness and debility as noted below. She was admitted to the hospital, as below after having symptoms which have improved. She is tolerated therapy but she has not felt to be improved to the extent that she can return home and is therefore admitted to the rehab unit with a goal of restoring her previous level of functional independence. Prior to her stroke she had been diagnosed with atrial fibrillation and been placed on anticoagulation however she was on low-dose Xarelto. per neuro consult:The patient is a 73 year old F PMH stroke, PAF on Xarelto, MDS, multiple myeloma, history of meningioma s/p gamma knife surgery 12 years ago admitted with dizziness. Per patient she started having acute onset dizziness yesterday 02/03/2019 after she woke up in the morning and had a fall. Per patient she did not lose her consciousness and denies any syncopal episode. Was later brought to the ED for further evaluation. Per patient she was admitted about a month ago at [facility] with stroke, per patient she had speech disturbances and left-sided weakness at that time which later resolved (no records available). Per patient she was on Revlimid for chemotherapy when she had the stroke following which Revlimid was discontinued and she has been started on Velcade as well as dexamethasone since then. Since this morning she also feels that there is some weakness in the left upper and lower extremities. She denies any headache, visual disturbances or speech disturbances at present, denies any sensory loss. Per patient she lives with her , denies any frequent falls, does not use any cane or walker to ambulate, and does drive, and does not need any assistance for a day-to-day activities. Per patient at [place] she was told that she had multiple strokes on both the sides of the cerebral hemisphere and later she saw Dr. Garner who per patient started her on Coumadin and it was later changed to Xarelto by her PCP Dr. Augusta Wilson. MRI brain done on admission reported to show acute right posterior frontal infarct in the right pericallosal arterial distribution, 1.9 cm extra-axial left parietal lesion probable meningioma, 5 mm left frontal extra-axial lesion possible meningioma. Past Medical History Past Medical History (Chronic Problems): Chronic Problems (Last Reviewed 01/25/19 @ 11:59 by Anika Choudhary) Cerebrovascular disease (Chronic) Macrocytosis (Chronic) MDS (myelodysplastic syndrome), low grade (Chronic) Myeloma (Chronic) Lung nodule (Chronic) Left upper lobe, May 2018 Liver lesion, right lobe (Chronic) Negative biopsy for malignancy June 29, 2018 Anemia (Chronic) Tremor (Chronic) Cognitive dysfunction (Chronic) Meningioma (Chronic) Medical History: Medical History (Last Reviewed 01/25/19 @ 11:59 by Anika Choudhary) Cellulitis L03.90 left eye -2018 History of hysterectomy Z90.710 Meningioma D32.9 Gamma knife at [facility] ~2000 Osteopenia M85.80 Stroke I63.9 X2 - HOSPITALIZATION FOR 5 DAYS Allergies morphine Adverse Reaction (Severe, Verified 02/03/19 12:19) Nausea Home Medications: Ambulatory Orders Medication Instructions Recorded Gabapentin [Neurontin] 100 mg PO BID 03/24/16 Bortezomib SC [Velcade SC] 3.5 mg SQ QWEEK 11/11/18 Calcium (Elemental) [Os-Nils 500] 500 mg PO DAILY 02/03/19 Cholecalciferol (Vitamin D3) 5,000 unit PO DAILY 02/03/19 [Vitamin D3] Escitalopram Oxalate [Lexapro] 10 mg PO DAILY 02/03/19 Multivitamin with Minerals 1 tab PO DAILY 02/03/19 [Multiple Vitamin] Acyclovir 400 mg PO BID 02/07/19 Apixaban [Eliquis] 5 mg PO BID 02/07/19 Aspirin [Aspirin, Baby] 81 mg PO DAILY@0800 02/07/19 Atorvastatin Calcium [Lipitor] 80 mg PO QHS 02/07/19 Clindamycin [Cleocin] 450 mg PO TID 02/07/19 Dexamethasone [Decadron] 40 mg PO QWEEK 02/07/19 Surgical History: Surgical History (Last Reviewed 02/08/19 @ 10:42 by Bandar Garner MD) History of cholecystectomy Z90.49 Surgical History: cholecystectomy, hysterectomy, tonsillectomy Psychiatric History: No pertinent psych hx 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 Denies: Numbness, Tingling Psychiatric: Denies: Anxiety, Depression, Homicidal Ideations, Suicidal Ideations Hematologic/ Lymphatic: Denies: Easy Bruising, Easy Bleeding VTE Information - Inpt Only VTE Present on Admission: Yes VTE Pharm Prophylaxis ordered?: Yes - Physical Exam General: Alert, Oriented x3, Cooperative, No apparent distress HEENT: Atraumatic, PERRLA, EOMI Lungs: Clear to auscultation Cardiovascular: Irregular Rate Abdomen: Bowel Sounds Present Extremities: No Calf Tenderness Musculoskeletal: No Tenderness to Palpation of Joints or Extremities Neurological: Cranial nerves II-XII grossly intact, - - There is mild left upper and left lower extremity apraxia. Vital Signs Temp Pulse Resp BP Pulse Ox 36.3 C L 101 H 18 148/77 H 92 02/08/19 07:07 02/08/19 07:07 02/08/19 07:07 02/08/19 07:07 02/08/19 07:07 Oxygen Delivery Method Room Air Weight: 66.5 kg Body Mass Index (BMI) 26.1 Intake and Output for Last 24 Hours 02/06/19 02/07/19 02/08/19 23:59 23:59 23:59 Intake Total 320 / 320 Balance 320 / 320 Laboratory Tests Past 24 Hrs 02/08/19 02/08/19 05:50 05:50 WBC 11.0 RBC 3.43 L Hgb 11.5 L Hct 34.5 L MCV 100.6 H MCH 33.5 H MCHC 33.3 RDW 14.0 RDW Differential 51.4 H Plt Count 212 MPV 10.8 Immature Gran % (Auto) 0.400 Neut % (Auto) 59.3 Lymph % (Auto) 15.2 L [place] % (Auto) 21.6 H Eos % (Auto) 3.2 Baso % (Auto) 0.3 Absolute Neuts (auto) 6.5 Absolute Lymphs (auto) 1.67 Total Counted Not Reportable Differential Comment SCANNED Sodium 141 Potassium 4.1 Chloride 108 H Carbon Dioxide 25.0 Anion Gap 8 BUN 21 H Creatinine 0.81 Estim Creat Clear Calc 50.41 Est GFR (MDRD) Af Amer 89 Est GFR (MDRD) Non-Af 73 BUN/Creatinine Ratio 25.9 H Glucose 95 Calcium 8.4 L Assessment/Plan All Active Problems (Last Reviewed 01/25/19 @ 11:59 by Anika Choudhary) Stroke (Acute) PFO (patent foramen ovale) (Ruled-out)
--- NOTE | 2019-02-08 10:44 | PCM.RU.PYE ---
Admission Information Status Changes from Prescreening?: No changes Identified Actual Problem List:: Cognitve Impr/Memory Loss, Mobility Impaired, Self Care Deficit, Ineffect.D/C Plan r/t Psy Potential Problem List:: DVT, Bleeding, Infection, UTI, Aspiration, Falls, Skin Integrity, Depression Risk of Complications DVT: LMWH, RICKIE Hose, Sequential Compression Device Bleeding: Monitor Lab Values, Nursing to Teach Precautions for anti-coagulation therapy., Wound, if applicable, to be assessed every shift., Stroke patients assessed for lethargy or change in status. Infection: Clinical Staff to Monitor for S/S of infection:, S/S of infection include fever, redness, warmth, etc. Urinary Tract Infection: Monitor for frequency, burning, discomfort, or incontinence., Nursing will obtain urine sample for urinalysis and C&S when ordered. Aspiration: Clinical staff will monitor for coughing, drooling, congestion., Speech will evaluate swallowing and dsyphasia., Nursing will monitor patient swallowing during meals. Falls: Patient will be evaluated for Fall Precautions, Patient will be placed on Fall Precautions as indicated per protocol. Skin Breakdown: Nursing will assess skin daily using assessment tool., Nursing will place on Skin Breakdown Precautions as indicated. Pain: Clinical staff will assess patient's pain level per protocol., Medications will be given, if needed, and the pain level reassessed., Other methods: Massage, distraction, decrease stimulus, etc. used PRN. Plan of Care Patient requires physician specializing in physical medicine and rehab oversight to provide close medical supervision of rehab issues including: Pain Management, Sleep Problems, Bowel and Bladder, Medical and co-morbidity Management, DVT prophylaxis, Rehabilitation Leadership, Coordination of treatment team Patient needs Physical Therapy: For a minimum of 1 hour, At least 5 out of 7 days Patient needs Physical Therapy to improve:: Mobility, Mobility, Mobility, Strengthening, Transfers, Stretching, ROM, Endurance, Stairs, Gait, Balance Patient needs Occupational Therapy: For a minimum of 1 hour, At least 5 out of 7 days Patient needs Occupational Therapy to improve ADL's incl.: Eating, Grooming, Bathing, Dressing, Toileting, Toilet transfers, Community Reintegration, Higher functioning activities, Household tasks, Adaptive Equipment, Splinting, Other activities as determined Patient requires speech therapy: For a minimum of 1 hour, At least 5 out of 7 days Patient requires speech therapy for: Swallowing, Cognition, Language Skills, Compensatory Strategies Patient requires 24/ Rehabilitation Nursing for: Pain Issues, Identifying and preventing risk factors, Monitoring and reporting current medical conditions, Assisting with ambulation, transfer, and all ADL's, Teaching patients about disease process and medications, Family teaching, Providing safe environment, Bowel and Bladder Issues, Skin integrity, Medication Management Patient needs Inventory Management Specialist/ Case Management for: Discharge Planning, Arranging Home Equipment or Services, Family Interventions Patient needs Dietary and Nutrition Services for: Adequate Nutrition, Nutritional Supplements, Nutritional Education Goals Patient will remain: free from falls, or injury at time of discharge. Patient will perform bed mobility at: MOD I level of assist. Patient will complete transfers from bed to chair at: MOD I level of assist. Patient will ambulate: 100 feet, with MOD I assist, with LRD Patient will complete upper body dressing at: MOD I level of assist. Patient will complete lower body dressing at: MOD I level of assist. Patient will complete toileting at: MOD I level of assist. Patient will perform bathing at: MOD I level of assist. Patient will complete grooming at: MOD I level of assist. Patient will complete home management skills at: MOD I level of assist. Patient will achieve: 12 stairs, at MOD I assist Patient will have pain level of: of 3 or less Patient's skin will: remain intact, free from infection. Patient will receive: adequate nutrition. Discharge Planning Pt Prognosis for Sig. Practical Improv. w/in Reasonable Time: Good Anticipated D/C Destination: Home with Outpt Therapy Was Preadmission Assessment Accurate?: Yes
[2019-02-08] MEDS: dexAMETHasone 4 MG Tablet 40 MG PO (10:56)
--- NOTE | 2019-02-08 12:28 | CON.PCM_ITS ---
- Problem List (1) Myeloma Status: Chronic Qualifiers: (2) MDS (myelodysplastic syndrome), low grade Status: Chronic Consult Referring Physician: Rehab unit staff Consult Results: Multiple myeloma Subjective Date of Service:: 02/08/19 Chief Complaint: stroke History of Present Illness: 73-year-old female admitted with an acute stroke presumed thromboembolic. From the hematology oncology review patient presented in the summer 2017 with an M spike and her CBC shows a persistent macrocytosis. Further workup revealed: 1-Multiple myeloma with bone marrow plasmacytosis of 10%, positive IGH translocation and trisomy 11 (standard risk cytogenetic abnormality) and IgG kappa M protein of 2.5 g per DL. Her serum free kappa light chains were elevated with a kappa lambda ratio of 26. Skeletal survey showed no lytic lesions but PET/CT showed widespread bone involvement. She was treated with triple therapy VRd May 2018 through November 2018 (Velcade, Revlimid and low- dose weekly dexamethasone) and achieved a partial -very good remission of her disease (more than 50% drop in the paraprotein level, occasionally too small to quantify). Revlimid was discontinued in November 2018 due to bone marrow toxicity (severe thrombocytopenia in face of need for systemic anticoagulation) and she continued with double therapy Velcade low-dose dexamethasone and her disease continues to be in partial-very good remission. She is on acyclovir for shingles prophylaxis and was on low-dose aspirin for DVT prophylaxis which was replaced with systemic anticoagulation in November 2018 when she developed multiple small cerebrovascular strokes. 2. Low risk MDS evidenced by persistent unexplained macrocytosis without cytopenias, bone marrow showing no excess blasts and cytogenetics and FISH panel showing trisomy 8. Past Medical History: Chronic Problems (Last Reviewed 01/25/19 @ 11:59 by Anika Choudhary) Cerebrovascular disease (Chronic) Macrocytosis (Chronic) MDS (myelodysplastic syndrome), low grade (Chronic) Myeloma (Chronic) Lung nodule (Chronic) Left upper lobe, May 2018 Liver lesion, right lobe (Chronic) Negative biopsy for malignancy June 29, 2018 Anemia (Chronic) Tremor (Chronic) Cognitive dysfunction (Chronic) Meningioma (Chronic) Past Medical/Surgical History: Past Medical History - Most Recent Inpatient Visit Past Medical History Start: 02/07/19 14:25 Text: Status: Complete Freq: ONCE Protocol: Document 02/07/19 14:25 AO (Rec: 02/07/19 16:59 AO [id number]) BMI Required to complete PMH What is Patient's BMI 26.1 Past Medical History Unable History Recalled Yes Query Text:Pt Unable/Family Not Present Neurologic Medical History Hx Stroke/TIA Yes Hx Dementia/Alzheimer's No Hx Parkinson's Disease No Hx Seizures No Hx Multiple Sclerosis No Hx Migraines No Cardiac Medical History VTE Present on Admission No Hx of Deep Vein Thrombosis/VTE/PE No Hx Hypertension No Hx Chest Pain/Angina No Hx Heart Attack No Hx Cardiac Surgery/Stents/Etc. No Hx Heart Failure No Hx Pacemaker/AICD No Hx Irregular Heartbeat and/or Afib No Hx Anticoagulant Therapy Yes Query Text:(Coumadin, Aspirin, Plavix, Xarelto, etc.) Hx Pain in Legs when Walking/Leg Cramps No Respiratory Medical History Hx COPD No Hx Emphysema No Hx Smoking No Smoking Status Never smoker Hx Smoking Cessation Counseling No Hx Smoking Exposure No Hx Tobacco Use in last 12 months No Hx of Pipe Smoking No Hx Sleep Apnea No Do you snore loudly (louder than talking No or can be heard through closed doors)? Do you often feel tired/ fatigued/ No sleepy during daytime? Has anyone observed you stop breathing No during sleep? STOP Results Negative GI Medical History Hx Ulcer No Hx Hepatitis No Hx Cirrhosis No Hx GI Bleed No Hx Unplanned Weight Loss No Genitourinary Medical History Indwelling Catheter in Place on Arrival/ No Admission Hx Renal Disease No Hx Dialysis No Musculoskeletal History Hx Arthritis No Hx Rheumatoid Arthritis No Endocrine Medical History Hx Diabetes No Hx Thyroid Disease No Hematologic Medical History Hx of Blood Transfusion No Hx of Transfusion in last 3 Months No Ever experience any problems with No transfusion(s)? Hx of Preganancy in last 3 Months No Nurse Filling Out Transfusion & AOSTEEN Questions: Date: 02/07/19 Time: 16:58 Psycho/Social Medical History Hx Depression No Hx Anxiety No Hx Behavior Disorder No Hx Alcohol Use No Hx Substance Use No Other Medical History Hx Blood Disorders No Hx Anemia No Hx Cancer Yes: multiple myeloma Hx Drug Resistant Organism No Wound/Pressure Injury Present on Arrival No /Admission Query Text:If yes, chart assessment in Shift/Clinical Findings Central Line/PICC/VAD Present on Arrival No /Admission Antibiotics within last 7 days? Yes Risk for Readmission Number of Risk Factors 1 At Risk for Readmission Patient is Not at Risk Patient is eligible for Call Back N Past Medical History (Last Reviewed 01/25/19 @ 11:59 by Ainka Choudhary) Cellulitis (Acute) History of hysterectomy (Acute) Meningioma (Acute) Osteopenia (Acute) Stroke (Acute) Past Surgical History (Last Reviewed 02/08/19 @ 10:42 by Bandar Garner MD) History of cholecystectomy (Acute) - Social History Smoking Status: Never smoker Tobacco Use: Non-smoker Allergies/Adverse Reactions: Allergy/AdvReac Type Severity Reaction Status Date / Time morphine AdvReac Severe Nausea Verified 02/03/19 12:19 Review of Systems Constitutional:: Reports: Weakness - Left-sided with a recent stroke, Fatigue. Denies: Fever, Sweats, Weight loss, Appetite change, Chills Cardiovascular:: Denies: Chest pain, Palpitations, Dyspnea on exertion, Orthopnea, PND, Shortness of breath Respiratory: Denies: Cough, Hemoptysis, Shortness of Breath, Wheezing Gastrointestinal:: Reports: Diarrhea - Appears to be time related to course of antibiotics for lower extremity cellulitis. Denies: Abdominal pain, Nausea, Vomiting, Constipation, Hematochezia Genitourinary: Denies: Dysuria, Hematuria, 15, Flank pain Musculoskeletal:: Denies: Back pain, Myalgia, Arthralgia Skin: Denies: Rash, Skin Changes, Wounds Neurological:: Reports: Memory loss - Recent memory decline, Paralysis - Left- sided. Denies: Headache, Dizziness, Visual changes, Tinnitus, Hearing loss Psychiatric: Denies: Anxiety, Depression, Homicidal Ideations, Suicidal Ideations Vital Signs Height 5 ft 3 in Weight: 66.5 kg Weight in Pounds 146.6 lbs Pulse Ox 92 Temperature 97.3 F Pulse Rate 101 Respiratory Rate 18 Blood Pressure 148/77 Blood Pressure Position Sitting - Physical Exam General: Alert, Cooperative, No apparent distress Lymphatics:: Negative for: Supraclavicular lymphadenopathy Laboratory Data: Laboratory Tests 02/08/19 02/08/19 Range/Units 05:50 05:50 WBC 11.0 (4.4-11.0) K/mm3 RBC 3.43 L (4.2-5.4) M/mm3 Hgb 11.5 L (12.0-15.0) g/dl Hct 34.5 L (37-47) % MCV 100.6 H (81-99) fL MCH 33.5 H (27.0-32.0) pg MCHC 33.3 (32-36) g/gl RDW 14.0 (11.6-14.6) % RDW Differential 51.4 H (35.1-43.9) fl Plt Count 212 (150-450) K/mm3 MPV 10.8 (6.2-12.0) fl Immature Gran % (Auto) 0.400 (0.0-0.9) % Neut % (Auto) 59.3 (47-70) % Lymph % (Auto) 15.2 L (19-41) % [place] % (Auto) 21.6 H (0-10) % Eos % (Auto) 3.2 (0-5) % Baso % (Auto) 0.3 (0-1) % Absolute Neuts (auto) 6.5 (2.0-7.7) X10^3/uL Absolute Lymphs (auto) 1.67 (0.83-4.51) X10^3/ul Total Counted Not Reportable Differential Comment SCANNED Sodium 141 (136-145) mmol/L Potassium 4.1 (3.5-5.1) mmol/L Chloride 108 H (98-107) mmol/L Carbon Dioxide 25.0 (21.0-32.0) mmol/L Anion Gap 8 (5-15) BUN 21 H (7-18) mg/dL Creatinine 0.81 (0.55-1.02) mg/dL Estim Creat Clear Calc 50.41 ml/min Est GFR (MDRD) Af Amer 89 (>60) mL/min Est GFR (MDRD) Non-Af 73 (>60) mL/min BUN/Creatinine Ratio 25.9 H (10-20) RATIO Glucose 95 (74-106) mg/dL Calcium 8.4 L (8.5-10.1) mg/dL Assessment and Plan 73-year-old female admitted with an acute stroke with left hemiparesis. From the hematology aspect patient has a myeloma that is in partial-very good remission currently on Vd (weekly Velcade low-dose dexamethasone) therapy. While undergoing rehab in the upcoming 2 weeks or so and to minimize bone marrow toxicity we will hold Velcade but continue weekly Decadron (40 mg every Wednesday a.m.). Continue acyclovir for shingles prophylaxis. We will follow- up following discharge. Christian Gómez MD Automatic Typewriter Inspector, [facility] Divisions of Medical Oncology & Hematology Department of Internal Medicine [place] [id number] This note was generated using a voice recognition system software. Although it was reviewed by the author prior to finalization, it may still contain incorrect words, spelling, and punctuation that were not noted when reviewing prior to saving. If a clinically significant typo or inaccurately typed phrase is noted, please notify the author. Medications: Prescriptions This Visit Medication Instructions Recorded Acyclovir 400 mg PO BID 02/07/19 Apixaban [Eliquis] 5 mg PO BID 02/07/19 Aspirin [Aspirin, Baby] 81 mg PO DAILY@0800 02/07/19 Atorvastatin Calcium [Lipitor] 80 mg PO QHS 02/07/19 Clindamycin [Cleocin] 450 mg PO TID 02/07/19 Dexamethasone [Decadron] 40 mg PO QWEEK 02/07/19 Medications Added to Medication List This Visit Category Date Time Status Aspirin [Aspirin, Baby] Med 02/08/19 08:00 Active 81 mg PO DAILY@0800 Calcium (Elemental) [Os-Nils 500] Med 02/08/19 08:00 Active 500 mg PO DAILYCM Cholecalciferol (VIT D3) [Vitamin D] Med 02/08/19 10:00 Active 5,000 unit PO DAILY Dexamethasone [Decadron] Med 02/08/19 09:00 Active 40 mg PO Q7D@0800 Escitalopram Oxalate [Lexapro] Med 02/08/19 10:00 Active 10 mg PO DAILY Multivitamins,Ther W-Minerals [Multivitamin With Med 02/08/19 08:00 Active Minerals] 1 tablet PO DAILY@0800 Primary Care Provider: Augusta Wilson DO Referring Provider:
[2019-02-08 16:39] VITALS: BMI 26.1
[2019-02-08 19:23] VITALS: BP 146/82; PULSE 106; RESP 16; TEMP 36.2; O2SAT 100
[2019-02-08 22:00] VITALS: PULSE 106; RESP 16; BMI 26.1
[2019-02-08] MEDS: Atorvastatin Calcium 80 MG Tablet PO (22:22)
[2019-02-09] MEDS: Clindamycin HCl 150 MG Capsule 450 MG PO ×3 (06:04→21:56)
[2019-02-09] MEDS: Gabapentin 100 MG Capsule PO ×2 (08:13→21:56)
[2019-02-09] MEDS: Escitalopram Oxalate 10 MG Tablet PO (08:13)
[2019-02-09] MEDS: Aspirin 81 MG TAB.CHEW PO (08:13)
[2019-02-09] MEDS: APIXABAN 5 MG TABLET PO ×2 (08:13→21:56)
[2019-02-09] MEDS: Multivitamins,Ther W-Minerals Tablet 1 TABLET PO (08:13)
[2019-02-09] MEDS: Acyclovir 200 MG Capsule 400 MG PO ×2 (08:13→21:55)
[2019-02-09] MEDS: Calcium (Elemental) 500 MG Tablet PO (08:13)
[2019-02-09 09:42] VITALS: BP 143/62; PULSE 98; RESP 16; TEMP 36.8; O2SAT 95
--- NOTE | 2019-02-09 10:21 | PCM.PN.NEU ---
Subjective: 02/08/2019 late entry note No new complaints. Tolerating therapies. No GI or complaints. - Physical Exam General: Alert, Oriented x3, Cooperative, No apparent distress HEENT: Atraumatic, PERRLA, EOMI Neurological: Cranial nerves II-XII grossly intact, - - Mild apraxia and drift of the left upper and left lower extremity with intact sensation. Vital Signs Temp Pulse Resp BP Pulse Ox 36.8 C 98 16 143/62 H 95 02/09/19 09:42 02/09/19 09:42 02/09/19 09:42 02/09/19 09:42 02/09/19 09:42 Oxygen Delivery Method Room Air Weight: 66.5 kg Body Mass Index (BMI) 26.1 Intake and Output for Last 24 Hours 02/07/19 02/08/19 02/09/19 23:59 23:59 23:59 Intake Total 320 / 320 Balance 320 / 320 Medical Necessity - Tobacco Use Smoking Status: Never smoker Tobacco Use: Non-smoker Assessment/Plan All Active Problems (Last Reviewed 01/25/19 @ 11:59 by Anika Choudhary) Stroke (Acute) PFO (patent foramen ovale) (Ruled-out) Debility status post right MCA distribution infarct complicated by history of multiple myeloma. She is now on Eliquis. Physical therapy for gait and balance Occupational Therapy for ADLs Bowel protocol Multiple myeloma: Chemotherapy on hold but will continue Decadron per hematology/oncology Atrial fibrillation: On Eliquis, rate controlled History of meningioma remotely status post gamma knife therapy, appears to be noncontributory at this point
--- NOTE | 2019-02-09 10:24 | PCM.PN.NEU ---
Subjective: No new complaints although she does report some diarrhea. Otherwise tolerating therapies. - Physical Exam General: Alert, Oriented x3, Cooperative, No apparent distress HEENT: PERRSASHA, EOMI Neurological: Cranial nerves II-XII grossly intact Psych/Mental Status: Normal Affect, Alert and oriented to time, place, person, mood and affect Vital Signs Temp Pulse Resp BP Pulse Ox 36.8 C 98 16 143/62 H 95 02/09/19 09:42 02/09/19 09:42 02/09/19 09:42 02/09/19 09:42 02/09/19 09:42 Oxygen Delivery Method Room Air Weight: 66.5 kg Body Mass Index (BMI) 26.1 Intake and Output for Last 24 Hours 02/07/19 02/08/19 02/09/19 23:59 23:59 23:59 Intake Total 320 / 320 Balance 320 / 320 Current Medications Generic Name Dose Route Start Last Admin Trade Name Freq PRN Reason Stop Dose Admin Acetaminophen 650 mg 02/07/19 14:43 Tylenol PO Q6H PRN PRN Mild Pain (0-3/10)/Headache Acyclovir 400 mg 02/07/19 22:00 02/09/19 08:13 Zovirax PO 400 mg BID MONSERRAT Administration Apixaban 5 mg 02/07/19 22:00 02/09/19 08:13 Eliquis PO 5 mg BID MONSERRAT Administration Aspirin 81 mg 02/08/19 08:00 02/09/19 08:13 Aspirin, Baby PO 81 mg DAILY@0800 MONSERRAT Administration Atorvastatin Calcium 80 mg 02/07/19 22:00 02/08/19 22:22 Lipitor PO 80 mg QHS MONSERRAT Administration Bisacodyl 10 mg 02/07/19 14:43 Dulcolax RECTAL .PRN X 1 PRN Constipation Calcium Carbonate 500 mg 02/08/19 08:00 02/09/19 08:13 Os-Nils 500 PO 500 mg DAILYCM MONSERRAT Administration Cholecalciferol 5,000 unit 02/08/19 10:00 02/09/19 08:13 Vitamin D PO 5,000 unit DAILY MONSERRAT Administration Clindamycin HCl 450 mg 02/07/19 22:00 02/09/19 06:04 Cleocin PO 02/09/19 22:01 450 mg TID MONSERRAT Administration Dexamethasone 40 mg 02/08/19 09:00 02/08/19 10:56 Decadron PO 40 mg Q7D@0800 [facility] Administration Escitalopram Oxalate 10 mg 02/08/19 10:00 02/09/19 08:13 Lexapro PO 10 mg DAILY MONSERRAT Administration Gabapentin 100 mg 02/07/19 22:00 02/09/19 08:13 Neurontin PO 100 mg BID MONSERRAT Administration Loperamide HCl 2 mg 02/09/19 09:57 Imodium PO Q6H PRN PRN Diarrhea Lorazepam 0.5 mg 02/07/19 15:08 Ativan PO QHS PRN PRN ANXIETY/RESTLESSNESS/SLEEP Magnesium Hydroxide 30 ml 02/07/19 14:43 Milk Of Magnesia PO .PRN X 1 PRN Constipation Multivitamins/Minerals 1 tablet 02/08/19 08:00 02/09/19 08:13 Multivitamin With Minerals PO 1 tablet DAILY@0800 [facility] Administration Senna/Docusate Sodium 2 tablet 02/07/19 22:00 02/09/19 05:55 Senokot-S, Kassy-Colace PO Not Given BID [facility] Medical Necessity - Tobacco Use Smoking Status: Never smoker Tobacco Use: Non-smoker Assessment/Plan All Active Problems (Last Reviewed 01/25/19 @ 11:59 by Anika Choudhary) Stroke (Acute) PFO (patent foramen ovale) (Ruled-out) Debility status post right MCA distribution infarct complicated by history of multiple myeloma. She is now on Eliquis. Physical therapy for gait and balance Occupational Therapy for ADLs Bowel protocol Multiple myeloma: Chemotherapy on hold but will continue Decadron per hematology/oncology Atrial fibrillation: On Eliquis, rate controlled History of meningioma remotely status post gamma knife therapy, appears to be noncontributory at this point Diarrhea: This may be due to her clindamycin. We will add Imodium.
[2019-02-09] MEDS: Loperamide 2 MG Capsule PO (11:25)
--- NOTE | 2019-02-09 12:44 | CASEMGMT ---
Social Work Met with patient for admission assessment. Patient recently diagnosed with cancer. is disabled medically and a retired . Educated patient to Palliative Medicine - pt declined at this time, but educated her to how to pursue after DC if she chooses. Educated pt to VA benefits she may be eligible for as well. Pt comfortable with living with dx and w/o invasive treatment. Mood is positive and accepting. Will continue to follow for support and DC planning. Heidi Lugo, HE[employer] EQUIPMENT MECHANIC [employer] BONDING MACHINE TENDER
[2019-02-09 13:22] VITALS: O2SAT 98
--- NOTE | 2019-02-09 14:06 | PCM.PROGNOTE ---
Subjective: Chief complaint: Follow-up after consultation after admission to inpatient rehabilitation unit for medical management. Patient seen and examined. No acute events overnight. Patient had few times of diarrhea yesterday and once today. It is likely because of clindamycin. Denied abdominal pain, fever or chills. It is improving. Weakness on the left side is significantly improved. Vital signs are stable. - Physical Exam General: Alert, Oriented x3, Cooperative, No apparent distress HEENT: Atraumatic, PERRLA, EOMI, Normocephalic Oral: Moist Mucosa, No Gingival or Mucosal Lesions/ Ulcerations Neck: Supple, No JVD, Negative Carotid Bruits, Trachea Midline, Thyroid Normal Size and Texture Lungs: Clear to auscultation, Normal air movement, No rhonchi, No wheeze, No rales Cardiovascular: Regular rate, Regular Rhythm, Normal S1, Normal S2, PMI Normal Abdomen: Bowel Sounds Present, Soft, Non Tender, Non-Distended, No Hepato-splenomegaly Extremities: No clubbing, No cyanosis, No edema Skin: No rashes, No breakdown Lymphatic: No Cervical, Supraclavicular, or Inguinal Adenopathy Neurological: Cranial nerves II-XII grossly intact, - - Power on the right side is 5 x 5. Power on the left side is almost 5 x 5, minimal weakness. Psych/Mental Status: Normal Affect, Appropriate Vital Signs Temp Pulse Resp BP Pulse Ox 98.2 F 98 16 143/62 H 98 02/09/19 09:42 02/09/19 09:42 02/09/19 09:42 02/09/19 09:42 02/09/19 13:22 Oxygen Delivery Method Room Air Weight: 146 lb 9.718 oz Body Mass Index (BMI) 26.1 Intake and Output for Last 24 Hours 02/07/19 02/08/19 02/09/19 23:59 23:59 23:59 Intake Total 320 / 320 Balance 320 / 320 Medical Necessity - Tobacco Use Smoking Status: Never smoker Tobacco Use: Non-smoker Assessment/Plan All Active Problems (Last Reviewed 01/25/19 @ 11:59 by Anika Choudhary) Stroke (Acute) PFO (patent foramen ovale) (Ruled-out) This is a 73 years old female patient admitted to the inpatient rehabilitation unit after she suffered a right MCA stroke with resultant mild left-sided hemiparesis and I am seeing this patient in consultation for medical management. #1 right MCA stroke: With resultant left-sided hemiparesis. She is on aspirin, statins and Eliquis. Her vital signs are stable. Weakness on the left side is improving significantly. Patient is doing well with physical therapy. Reportedly, she had GILBERT few weeks ago at [facility] which was negative for PFO. EKG revealed normal sinus rhythm without evidence of acute ischemic changes or cardiac arrhythmias. Reportedly, she had paroxysmal atrial fibrillation. Plan to continue same treatment, PT OT according to rehab team., #2 right lower extremity/right foot cellulitis: She is on oral clindamycin, today is the last day. Erythema and swelling of the right leg and right ankle is gone, resolved. Patient complained of diarrhea, once today, started on Imodium. At this time, I doubt acute C. difficile colitis. Started on Imodium. #3 paroxysmal atrial fibrillation: Rate is controlled, she is on Eliquis for anticoagulation. She is not on rate control medicine. #4 multiple myeloma: In remission, was evaluated by oncology yesterday and she is stable. Blood counts are stable, she does have chronic anemia and chronic thrombocytopenia. She is on Velcade injections every week, has been following up with Dr. Gómez. #5 history of meningioma: Status post gamma radiation. Stable.. #6 history of chronic right lobe liver lesion: Reportedly, this was negative for malignancy. #7 depression: Continue Lexapro. #8 DVT prophylaxis: Continue Eliquis. This note was generated with [employer] dictation software. It may contain incorrect words, spelling, and punctuation that were not noted in checking the note before signing. Code Visit Inpatient E&M: 91750 Subs Hosp L2
--- NOTE | 2019-02-09 14:13 | PN_ITS ---
Subjective: Chief complaint: Follow-up after consultation after admission to inpatient rehabilitation unit for medical management. Patient seen and examined. No acute events overnight. Patient had few times of diarrhea yesterday and once today. It is likely because of clindamycin. Denied abdominal pain, fever or chills. It is improving. Weakness on the left side is significantly improved. Vital signs are stable. - Physical Exam General: Alert, Oriented x3, Cooperative, No apparent distress HEENT: Atraumatic, PERRLA, EOMI, Normocephalic Oral: Moist Mucosa, No Gingival or Mucosal Lesions/ Ulcerations Neck: Supple, No JVD, Negative Carotid Bruits, Trachea Midline, Thyroid Normal Size and Texture Lungs: Clear to auscultation, Normal air movement, No rhonchi, No wheeze, No rales Cardiovascular: Regular rate, Regular Rhythm, Normal S1, Normal S2, PMI Normal Abdomen: Bowel Sounds Present, Soft, Non Tender, Non-Distended, No Hepato- splenomegaly Extremities: No clubbing, No cyanosis, No edema Skin: No rashes, No breakdown Lymphatic: No Cervical, Supraclavicular, or Inguinal Adenopathy Neurological: Cranial nerves II-XII grossly intact, - - Power on the right side is 5 x 5. Power on the left side is almost 5 x 5, minimal weakness. Psych/Mental Status: Normal Affect, Appropriate Vital Signs Temp Pulse Resp BP Pulse Ox 98.2 F 98 16 143/62 H 98 02/09/19 09:42 02/09/19 09:42 02/09/19 09:42 02/09/19 09:42 02/09/19 13:22 Oxygen Delivery Method Room Air Weight: 146 lb 9.718 oz Body Mass Index (BMI) 26.1 Intake and Output for Last 24 Hours 02/07/19 02/08/19 02/09/19 23:59 23:59 23:59 Intake Total 320 / 320 Balance 320 / 320 Medical Necessity - Tobacco Use Smoking Status: Never smoker Tobacco Use: Non-smoker Assessment/Plan All Active Problems (Last Reviewed 01/25/19 @ 11:59 by Anika Choudhary) Stroke (Acute) PFO (patent foramen ovale) (Ruled-out) This is a 73 years old female patient admitted to the inpatient rehabilitation unit after she suffered a right MCA stroke with resultant mild left-sided hemiparesis and I am seeing this patient in consultation for medical management. #1 right MCA stroke: With resultant left-sided hemiparesis. She is on aspirin, statins and Eliquis. Her vital signs are stable. Weakness on the left side is improving significantly. Patient is doing well with physical therapy. Reportedly, she had GILBERT few weeks ago at [facility] which was negative for PFO. EKG revealed normal sinus rhythm without evidence of acute ischemic changes or cardiac arrhythmias. Reportedly, she had paroxysmal atrial fibrillation. Plan to continue same treatment, PT OT according to rehab team., #2 right lower extremity/right foot cellulitis: She is on oral clindamycin, today is the last day. Erythema and swelling of the right leg and right ankle is gone, resolved. Patient complained of diarrhea, once today, started on Imodium. At this time, I doubt acute C. difficile colitis. Started on Imodium. #3 paroxysmal atrial fibrillation: Rate is controlled, she is on Eliquis for anticoagulation. She is not on rate control medicine. #4 multiple myeloma: In remission, was evaluated by oncology yesterday and she is stable. Blood counts are stable, she does have chronic anemia and chronic thrombocytopenia. She is on Velcade injections every week, has been following up with Dr. Gómez. #5 history of meningioma: Status post gamma radiation. Stable.. #6 history of chronic right lobe liver lesion: Reportedly, this was negative for malignancy. #7 depression: Continue Lexapro. #8 DVT prophylaxis: Continue Eliquis. This note was generated with [employer] dictation software. It may contain incorrect words, spelling, and punctuation that were not noted in checking the note before signing. Code Visit Inpatient E&M: 32827 Subs Hosp L2
[2019-02-09 17:00] VITALS: BMI 26.1
[2019-02-09 20:28] VITALS: PULSE 90; RESP 16; TEMP 36.6; O2SAT 92
[2019-02-09 21:34] VITALS: BP 141/58
[2019-02-09] MEDS: Atorvastatin Calcium 80 MG Tablet PO (21:56)
[2019-02-10 06:40] VITALS: O2SAT 96
[2019-02-10 08:00] VITALS: BP 115/76; PULSE 76; RESP 16; TEMP 36.7; O2SAT 98
[2019-02-10] MEDS: Aspirin 81 MG TAB.CHEW PO (09:29)
[2019-02-10] MEDS: Calcium (Elemental) 500 MG Tablet PO (09:29)
[2019-02-10] MEDS: Escitalopram Oxalate 10 MG Tablet PO (09:30)
[2019-02-10] MEDS: APIXABAN 5 MG TABLET PO ×2 (09:30→21:41)
[2019-02-10] MEDS: Acyclovir 200 MG Capsule 400 MG PO ×2 (09:30→21:41)
[2019-02-10] MEDS: Gabapentin 100 MG Capsule PO ×2 (09:30→21:41)
[2019-02-10] MEDS: Multivitamins,Ther W-Minerals Tablet 1 TABLET PO (09:30)
[2019-02-10 12:45] VITALS: BMI 26.1
[2019-02-10 19:46] VITALS: BP 140/54; PULSE 84; RESP 18; TEMP 36.7; O2SAT 95
[2019-02-10] MEDS: Atorvastatin Calcium 80 MG Tablet PO (21:41)
[2019-02-11 09:24] VITALS: BP 125/61; PULSE 77; RESP 18; TEMP 36.6; O2SAT 95
[2019-02-11] MEDS: Gabapentin 100 MG Capsule PO ×2 (10:38→22:43)
[2019-02-11] MEDS: Calcium (Elemental) 500 MG Tablet PO (10:38)
[2019-02-11] MEDS: Escitalopram Oxalate 10 MG Tablet PO (10:38)
[2019-02-11] MEDS: APIXABAN 5 MG TABLET PO ×2 (10:38→22:43)
[2019-02-11] MEDS: Multivitamins,Ther W-Minerals Tablet 1 TABLET PO (10:38)
[2019-02-11] MEDS: Aspirin 81 MG TAB.CHEW PO (10:38)
[2019-02-11] MEDS: Acyclovir 200 MG Capsule 400 MG PO ×2 (10:39→22:43)
[2019-02-11 15:08] VITALS: BMI 26.1
--- NOTE | 2019-02-11 19:20 | PCM.PROGNOTE ---
Subjective: Patient is a 73-year-old female well-known to me for a recent admission to [facility] for an acute ischemic right MCA stroke. At the time of the R MCA infarct she was on Xarelto and she was transitioned to Eliquis by Dr. Upton for tx failure with Xarelto. She had previously had BL small ischemic strokes at another hospital within the past few months. She was started on Anticoagulation at that time for presumed AF. She does have a history of multiple myeloma. CTA of the head and neck at that admission showed no significant areas of stenosis and no aneurysmal changes. She had no AF while in [facility]. she was transferred to the Rehab floor for further PT/OT prior to returning home. She denies CP, SOB, N/V, constipation She is afebrile with stable vital signs Pulse ox is 95 to 90% on room air. She denies any dysphagia. She was ambulating in the [place] today and tells me that her strength is gradually improving on the left side. - Physical Exam General: Alert, Oriented x3, Cooperative, No apparent distress, Well developed, Well nourished HEENT: Atraumatic, PERRLA, EOMI, Normocephalic Oral: Moist Mucosa Neck: Supple, No JVD, Negative Carotid Bruits Lungs: Clear to auscultation Cardiovascular: Regular rate, Regular Rhythm, Normal S1, Normal S2, No Ectopic Activity Abdomen: Bowel Sounds Present, Soft, Non Tender, Non-Distended Extremities: No clubbing, No cyanosis, No edema Skin: No rashes, No breakdown Neurological: Cranial nerves II-XII grossly intact, Motor Exam 5/5 strength throughout, - - I reviewed the physical therapy notes for today and the patient is still somewhat weak with the Left leg and is feeling safer with a quad cane than a straight cane. Psych/Mental Status: Normal Affect - the affect is more upbeat and she is no longer tearful. Tolerating the Escitalopram with no adverse side effects., Appropriate Vital Signs Temp Pulse Resp BP Pulse Ox 97.9 F 77 18 125/61 H 95 02/11/19 09:24 02/11/19 09:24 02/11/19 09:24 02/11/19 09:24 02/11/19 09:24 Oxygen Delivery Method Room Air Weight: 146 lb 9.718 oz Body Mass Index (BMI) 26.1 Intake and Output for Last 24 Hours 02/09/19 02/10/19 02/11/19 23:59 23:59 23:59 Intake Total 840 / 840 420 / 420 Balance 840 / 840 420 / 420 Medical Necessity - Tobacco Use Smoking Status: Never smoker Tobacco Use: Non-smoker Assessment/Plan All Active Problems (Last Reviewed 01/25/19 @ 11:59 by Anika Choudhary) Stroke (Acute) PFO (patent foramen ovale) (Ruled-out) Impressions 1. Recent R MCA stroke while on Xarelto. Prior to that had multiple small BL ischemic CVA's at another facility. Had no AF documented in the hospital while at [facility] prior to transfer to rehab floor. I was told by Dr. Gómez that a GILBERT at the other facility revealed no PFO and the bubble contrast was negative. 2. MM - managed by Dr. Gómez 3. menningioma - has had gamma knife in the past 4. recent cellulitis of the BL LE's - resolved with Clindamycin 5. depression - improving continue current care Code Visit Inpatient E&M: 42309 Subs Hosp L2
--- NOTE | 2019-02-11 19:28 | PN_ITS ---
Subjective: Patient is a 73-year-old female well-known to me for a recent admission to [facility] for an acute ischemic right MCA stroke. At the time of the R MCA infarct she was on Xarelto and she was transitioned to Eliquis by Dr. Upton for tx failure with Xarelto. She had previously had BL small ischemic strokes at another hospital within the past few months. She was started on Anticoagulation at that time for presumed AF. She does have a history of multiple myeloma. CTA of the head and neck at that admission showed no significant areas of stenosis and no aneurysmal changes. She had no AF while in [facility]. she was transferred to the Rehab floor for further PT/OT prior to returning home. She denies CP, SOB, N/V, constipation She is afebrile with stable vital signs Pulse ox is 95 to 90% on room air. She denies any dysphagia. She was ambulating in the [place] today and tells me that her strength is gradually improving on the left side. - Physical Exam General: Alert, Oriented x3, Cooperative, No apparent distress, Well developed, Well nourished HEENT: Atraumatic, PERRLA, EOMI, Normocephalic Oral: Moist Mucosa Neck: Supple, No JVD, Negative Carotid Bruits Lungs: Clear to auscultation Cardiovascular: Regular rate, Regular Rhythm, Normal S1, Normal S2, No Ectopic Activity Abdomen: Bowel Sounds Present, Soft, Non Tender, Non-Distended Extremities: No clubbing, No cyanosis, No edema Skin: No rashes, No breakdown Neurological: Cranial nerves II-XII grossly intact, Motor Exam 5/5 strength throughout, - - I reviewed the physical therapy notes for today and the patient is still somewhat weak with the Left leg and is feeling safer with a quad cane than a straight cane. Psych/Mental Status: Normal Affect - the affect is more upbeat and she is no longer tearful. Tolerating the Escitalopram with no adverse side effects., Ap propriate Vital Signs Temp Pulse Resp BP Pulse Ox 97.9 F 77 18 125/61 H 95 02/11/19 09:24 02/11/19 09:24 02/11/19 09:24 02/11/19 09:24 02/11/19 09:24 Oxygen Delivery Method Room Air Weight: 146 lb 9.718 oz Body Mass Index (BMI) 26.1 Intake and Output for Last 24 Hours 02/09/19 02/10/19 02/11/19 23:59 23:59 23:59 Intake Total 840 / 840 420 / 420 Balance 840 / 840 420 / 420 Medical Necessity - Tobacco Use Smoking Status: Never smoker Tobacco Use: Non-smoker Assessment/Plan All Active Problems (Last Reviewed 01/25/19 @ 11:59 by Anika Choudhary) Stroke (Acute) PFO (patent foramen ovale) (Ruled-out) Impressions 1. Recent R MCA stroke while on Xarelto. Prior to that had multiple small BL ischemic CVA's at another facility. Had no AF documented in the hospital while at [facility] prior to transfer to rehab floor. I was told by Dr. Gómez that a GILBERT at the other facility revealed no PFO and the bubble contrast was negative. 2. MM - managed by Dr. Gómez 3. menningioma - has had gamma knife in the past 4. recent cellulitis of the BL LE's - resolved with Clindamycin 5. depression - improving continue current care Code Visit Inpatient E&M: 79798 Subs Hosp L2
[2019-02-11 19:54] VITALS: BP 123/54; PULSE 104; RESP 16; TEMP 36.6; O2SAT 94
[2019-02-11] MEDS: Atorvastatin Calcium 80 MG Tablet PO (22:43)
[2019-02-12 05:00] VITALS: BMI 26.1
[2019-02-12 07:00] VITALS: BP 127/61; PULSE 77; RESP 12; TEMP 36.7; O2SAT 92
[2019-02-12] MEDS: Acyclovir 200 MG Capsule 400 MG PO ×2 (09:15→22:35)
[2019-02-12] MEDS: Aspirin 81 MG TAB.CHEW PO (09:16)
[2019-02-12] MEDS: APIXABAN 5 MG TABLET PO ×2 (09:16→22:36)
[2019-02-12] MEDS: Gabapentin 100 MG Capsule PO ×2 (09:16→22:36)
[2019-02-12] MEDS: Calcium (Elemental) 500 MG Tablet PO (09:16)
[2019-02-12] MEDS: Multivitamins,Ther W-Minerals Tablet 1 TABLET PO (09:16)
[2019-02-12] MEDS: Escitalopram Oxalate 10 MG Tablet PO (09:18)
[2019-02-12 10:56] VITALS: BMI 26.1
[2019-02-12 19:48] VITALS: BP 136/57; PULSE 92; RESP 20; TEMP 36.9; O2SAT 92
[2019-02-12] MEDS: Atorvastatin Calcium 80 MG Tablet PO (22:36)
[2019-02-13 05:00] VITALS: BMI 26.1
[2019-02-13] MEDS: Aspirin 81 MG TAB.CHEW PO (08:04)
[2019-02-13] MEDS: Multivitamins,Ther W-Minerals Tablet 1 TABLET PO (08:04)
[2019-02-13] MEDS: Acyclovir 200 MG Capsule 400 MG PO ×2 (08:04→20:24)
[2019-02-13] MEDS: Calcium (Elemental) 500 MG Tablet PO (08:04)
[2019-02-13] MEDS: APIXABAN 5 MG TABLET PO ×2 (08:04→20:24)
[2019-02-13] MEDS: Escitalopram Oxalate 10 MG Tablet PO (08:04)
[2019-02-13] MEDS: Gabapentin 100 MG Capsule PO ×2 (08:04→20:26)
[2019-02-13 08:54] VITALS: BP 131/62; PULSE 83; RESP 16; TEMP 36.6; O2SAT 95
--- NOTE | 2019-02-13 09:19 | PCM.PN.NEU ---
Subjective: Per nursing no issues overnight. Team meeting held today. Per PT, now using quad cane, transfers light hand touching, and steps with light touching. Per OT, contact guard assist with bathing and mod assist with lower body drsg. Per ST, education and training with higher level function, compensatory techniques with mild left visual deficit field and without dysphagia. Per SW, approved until 03/02/2019 and will be re-teamed next week. - Physical Exam General: Alert, Oriented x3, Cooperative HEENT: Atraumatic, PERRLA Oral: Moist Mucosa Neck: Supple, No JVD Lungs: Clear to auscultation, Normal air movement Cardiovascular: Regular rate Abdomen: Bowel Sounds Present, Soft, Non Tender Extremities: No clubbing, No cyanosis, No edema Musculoskeletal: No Tenderness to Palpation of Joints or Extremities Neurological: Cranial nerves II-XII grossly intact - except minimal left visual cut deficit, Deep Tendon Reflexes 2+/4 and Symmetrical, Motor Exam 5/5 strength throughout - Except LUE 4/5 Mild LUE drift Psych/Mental Status: Normal Affect, Appropriate, Alert and oriented to time, place, person, mood and affect Vital Signs Temp Pulse Resp BP Pulse Ox 98 F 83 16 131/62 H 95 02/13/19 08:54 02/13/19 08:54 02/13/19 08:54 02/13/19 08:54 02/13/19 08:54 Oxygen Delivery Method Room Air Weight: 66.5 kg Body Mass Index (BMI) 26.1 Intake and Output for Last 24 Hours 02/11/19 02/12/19 02/13/19 23:59 23:59 23:59 Intake Total 420 / 420 240 / 240 Balance 420 / 420 240 / 240 Medical Necessity - Tobacco Use Smoking Status: Never smoker Tobacco Use: Non-smoker Assessment/Plan All Active Problems (Last Reviewed 01/25/19 @ 11:59 by Anika Choudhary) Stroke (Acute) PFO (patent foramen ovale) (Ruled-out) a 73-year-old right-handed female who is status post hospitalization for a right MCA distribution infarct with left-sided weakness and debility as noted below. She was admitted to the hospital, as below after having symptoms which have improved. She is tolerated therapy but she has not felt to be improved to the extent that she can return home and is therefore admitted to the rehab unit with a goal of restoring her previous level of functional independence. Prior to her stroke she had been diagnosed with atrial fibrillation and been placed on anticoagulation however she was on low-dose Xarelto. Per neuro consult:The patient is a 73 year old F PMH stroke, PAF on Xarelto, MDS, multiple myeloma, history of meningioma s/p gamma knife surgery 12 years ago admitted with dizziness. Per patient she started having acute onset dizziness yesterday 02/03/2019 after she woke up in the morning and had a fall. Per patient she did not lose her consciousness and denies any syncopal episode. Was later brought to the ED for further evaluation. Per patient she was admitted about a month ago at [facility] with stroke, per patient she had speech disturbances and left-sided weakness at that time which later resolved (no records available). Per patient she was on Revlimid for chemotherapy when she had the stroke following which Revlimid was discontinued and she has been started on Velcade as well as dexamethasone since then. Since this morning she also feels that there is some weakness in the left upper and lower extremities. She denies any headache, visual disturbances or speech disturbances at present, denies any sensory loss. Per patient she lives with her , denies any frequent falls, does not use any cane or walker to ambulate, and does drive, and does not need any assistance for a day-to-day activities. Per patient at [place] she was told that she had multiple strokes on both the sides of the cerebral hemisphere and later she saw Dr. Garner who per patient started her on Coumadin and it was later changed to Xarelto by her PCP Dr. Augusta Wilson. MRI brain done on admission reported to show acute right posterior frontal infarct in the right pericallosal arterial distribution, 1.9 cm extra-axial left parietal lesion probable meningioma, 5 mm left frontal extra-axial lesion possible meningioma. Plan PT for mobility OT for ADLs ST for cognition Analgesics as needed Bowel protocol Right MCA infarct on ASA, Lipitor and eliquis Multiple myeloma: Chemotherapy on hold but will continue Decadron per hematology/oncology-consult Atrial fibrillation: On Eliquis, rate controlled History of meningioma remotely status post gamma knife therapy, appears to be noncontributory at this point Diarrhea resolved DVT prophylaxis on Eliquis and knee high elvira hose Fall precautions Medical management per hospitalist-consult Follow up with PCP, Hematology/Oncology, Neurology
--- NOTE | 2019-02-13 11:19 | CASEMGMT ---
Social Work IDT met with patient for Team meeting. Discussed patient's progress in therapy. Improving walking with less restrictive devices, working on transfers, steps and lower body assistance. Continuing to work with ST as well. Patient's goal is to return home with spouse on first floor set up, if needed. Will reteam next week and set DC date. Will continue to follow for discharge planning. Heidi Lugo, STEFAN LAMBERTW
[2019-02-13 14:08] VITALS: BMI 26.1
--- NOTE | 2019-02-13 16:56 | CHAPLAIN ---
Type of Pastoral Visit ___ Initial Visit _x__ Follow-up Visit ___ On-call Visit ___ General Patient Visit ___ Spiritual Assessment ___ Family Conference ___ Bereavement ___ Rapid Response ___ Code Blue ___ Other (describe below) Pastoral Care Referral From _x__ Patient ___ Family ___ Nurse ___ Physician ___ Medical Sales Representative ___ Dry Roller ___ Other (describe below) Sacrament/Intervention _x__ Active listening ___ Anointing ___ Catholic ___ Bereavement ___ Communion ___ Orly exploration ___ ___ Life review ___ Prayer ___ Reconciliation ___ Sacrament of Sick ___ Supportive presence ___ Wedding ___ Other (describe below) Pastoral Comments patient had family and friends visiting; pt says she is working hard to get home; offer to return another time
[2019-02-13 18:50] VITALS: BP 138/60; PULSE 93; RESP 18; TEMP 36.7; O2SAT 90
[2019-02-13 20:06] VITALS: PULSE 93; RESP 16; O2SAT 93; BMI 26.1
[2019-02-13] MEDS: Atorvastatin Calcium 80 MG Tablet PO (20:25)
[2019-02-14] MEDS: Acyclovir 200 MG Capsule 400 MG PO ×2 (07:50→21:24)
[2019-02-14] MEDS: Calcium (Elemental) 500 MG Tablet PO (07:51)
[2019-02-14] MEDS: Multivitamins,Ther W-Minerals Tablet 1 TABLET PO (07:51)
[2019-02-14] MEDS: Escitalopram Oxalate 10 MG Tablet PO (07:51)
[2019-02-14] MEDS: APIXABAN 5 MG TABLET PO ×2 (07:51→21:25)
[2019-02-14] MEDS: Gabapentin 100 MG Capsule PO ×2 (07:51→21:25)
[2019-02-14] MEDS: Aspirin 81 MG TAB.CHEW PO (07:51)
[2019-02-14 08:09] VITALS: BP 133/61; PULSE 90; RESP 16; TEMP 36.5; O2SAT 95
--- NOTE | 2019-02-14 12:30 | PCM.PN.NEU ---
Subjective: Per nursing no issues overnight. Per patient tolerating therapies well and is sleeping good at night. Denies further questions or concerns. - Physical Exam General: Alert, Oriented x3, Cooperative HEENT: Atraumatic, PERRLA Oral: Moist Mucosa Neck: Supple, No JVD Lungs: Clear to auscultation, Normal air movement Cardiovascular: Regular rate, Regular Rhythm Abdomen: Bowel Sounds Present, Soft, Non Tender Extremities: No clubbing, No cyanosis, No edema Neurological: Cranial nerves II-XII grossly intact - except minimal left visual cut deficit, Deep Tendon Reflexes 2+/4 and Symmetrical, Motor Exam 5/5 strength throughout - Except LUE 4/5 Mild LUE drift Psych/Mental Status: Normal Affect, Appropriate, Alert and oriented to time, place, person, mood and affect Vital Signs Temp Pulse Resp BP Pulse Ox 97.7 F L 90 16 133/61 H 95 02/14/19 08:09 02/14/19 08:09 02/14/19 08:09 02/14/19 08:09 02/14/19 08:09 Oxygen Delivery Method Room Air Weight: 66.5 kg Body Mass Index (BMI) 26.1 Intake and Output for Last 24 Hours 02/12/19 02/13/19 02/14/19 23:59 23:59 23:59 Intake Total 240 / 240 Balance 240 / 240 Medical Necessity - Tobacco Use Smoking Status: Never smoker Tobacco Use: Non-smoker Assessment/Plan All Active Problems (Last Reviewed 01/25/19 @ 11:59 by Anika Choudhary) Stroke (Acute) PFO (patent foramen ovale) (Ruled-out) a 73-year-old right-handed female who is status post hospitalization for a right MCA distribution infarct with left-sided weakness and debility as noted below. She was admitted to the hospital, as below after having symptoms which have improved. She is tolerated therapy but she has not felt to be improved to the extent that she can return home and is therefore admitted to the rehab unit with a goal of restoring her previous level of functional independence. Prior to her stroke she had been diagnosed with atrial fibrillation and been placed on anticoagulation however she was on low-dose Xarelto. Per neuro consult:The patient is a 73 year old F PMH stroke, PAF on Xarelto, MDS, multiple myeloma, history of meningioma s/p gamma knife surgery 12 years ago admitted with dizziness. Per patient she started having acute onset dizziness yesterday 02/03/2019 after she woke up in the morning and had a fall. Per patient she did not lose her consciousness and denies any syncopal episode. Was later brought to the ED for further evaluation. Per patient she was admitted about a month ago at [facility] with stroke, per patient she had speech disturbances and left-sided weakness at that time which later resolved (no records available). Per patient she was on Revlimid for chemotherapy when she had the stroke following which Revlimid was discontinued and she has been started on Velcade as well as dexamethasone since then. Since this morning she also feels that there is some weakness in the left upper and lower extremities. She denies any headache, visual disturbances or speech disturbances at present, denies any sensory loss. Per patient she lives with her , denies any frequent falls, does not use any cane or walker to ambulate, and does drive, and does not need any assistance for a day-to-day activities. Per patient at [place] she was told that she had multiple strokes on both the sides of the cerebral hemisphere and later she saw Dr. Garner who per patient started her on Coumadin and it was later changed to Xarelto by her PCP Dr. Augusta Wilson. MRI brain done on admission reported to show acute right posterior frontal infarct in the right pericallosal arterial distribution, 1.9 cm extra-axial left parietal lesion probable meningioma, 5 mm left frontal extra-axial lesion possible meningioma. Plan PT for mobility OT for ADLs ST for cognition Analgesics as needed Bowel protocol Right MCA infarct on ASA, Lipitor and eliquis Multiple myeloma: Chemotherapy on hold but will continue Decadron per hematology/oncology-consult Atrial fibrillation: On Eliquis, rate controlled History of meningioma remotely status post gamma knife therapy, appears to be noncontributory at this point Diarrhea resolved DVT prophylaxis on Eliquis and knee high elvira hose Fall precautions Medical management per hospitalist-consult Follow up with PCP, Hematology/Oncology, Neurology
[2019-02-14 12:42] VITALS: BMI 26.1
[2019-02-14 19:08] VITALS: BP 118/61; PULSE 91; RESP 18; TEMP 36.8; O2SAT 92
[2019-02-14 21:08] VITALS: BMI 26.1
[2019-02-14 21:09] VITALS: PULSE 91; RESP 18; O2SAT 93
[2019-02-14] MEDS: Atorvastatin Calcium 80 MG Tablet PO (21:25)
[2019-02-15 07:12] VITALS: BP 118/63; PULSE 87; RESP 17; TEMP 36.7; O2SAT 94
[2019-02-15] MEDS: Multivitamins,Ther W-Minerals Tablet 1 TABLET PO (07:50)
[2019-02-15] MEDS: dexAMETHasone 4 MG Tablet 40 MG PO (07:51)
[2019-02-15] MEDS: Gabapentin 100 MG Capsule PO ×2 (07:51→21:07)
[2019-02-15] MEDS: Aspirin 81 MG TAB.CHEW PO (07:51)
[2019-02-15] MEDS: Escitalopram Oxalate 10 MG Tablet PO (07:51)
[2019-02-15] MEDS: Acyclovir 200 MG Capsule 400 MG PO ×2 (07:51→21:06)
[2019-02-15] MEDS: Calcium (Elemental) 500 MG Tablet PO (07:51)
[2019-02-15] MEDS: APIXABAN 5 MG TABLET PO ×2 (07:57→21:07)
[2019-02-15 13:08] VITALS: BMI 26.1
--- NOTE | 2019-02-15 13:36 | PN.NEURO_ITS ---
Subjective: Per nursing no issues overnight. Per patient continues to tolerate therapies well. Denies further questions or concerns. - Physical Exam General: Alert, Oriented x3, Cooperative HEENT: Atraumatic, PERRLA Oral: Moist Mucosa Neck: Supple, No JVD Lungs: Clear to auscultation, Normal air movement Cardiovascular: Regular rate, Regular Rhythm Abdomen: Bowel Sounds Present, Soft, Non Tender Extremities: No clubbing, No cyanosis, No edema Skin: No rashes, No breakdown Neurological: Cranial nerves II-XII grossly intact - except minimal left visual cut deficit, Deep Tendon Reflexes 2+/4 and Symmetrical, Motor Exam 5/5 strength throughout - Except LUE 4/5 Mild LUE drift Psych/Mental Status: Normal Affect, Appropriate, Alert and oriented to time, place, person, mood and affect Vital Signs Temp Pulse Resp BP Pulse Ox 98.1 F 87 17 118/63 94 02/15/19 07:12 02/15/19 07:12 02/15/19 07:12 02/15/19 07:12 02/15/19 07:12 Oxygen Delivery Method Room Air Weight: 67.5 kg Body Mass Index (BMI) 26.1 Intake and Output for Last 24 Hours 02/13/19 02/14/19 02/15/19 23:59 23:59 23:59 Intake Total 240 / 240 840 / 840 Balance 240 / 240 840 / 840 Medical Necessity - Tobacco Use Smoking Status: Never smoker Tobacco Use: Non-smoker Assessment/Plan All Active Problems (Last Reviewed 01/25/19 @ 11:59 by Anika Choudhary) Stroke (Acute) PFO (patent foramen ovale) (Ruled-out) a 73-year-old right-handed female who is status post hospitalization for a right MCA distribution infarct with left-sided weakness and debility as noted below. She was admitted to the hospital, as below after having symptoms which have improved. She is tolerated therapy but she has not felt to be improved to the extent that she can return home and is therefore admitted to the rehab unit with a goal of restoring her previous level of functional independence. Prior to her stroke she had been diagnosed with atrial fibrillation and been placed on anticoagulation however she was on low-dose Xarelto. Per neuro consult:The patient is a 73 year old F PMH stroke, PAF on Xarelto, MDS, multiple myeloma, history of meningioma s/p gamma knife surgery 12 years ago admitted with dizziness. Per patient she started having acute onset dizziness yesterday 02/03/2019 after she woke up in the morning and had a fall. Per patient she did not lose her consciousness and denies any syncopal episode. Was later brought to the ED for further evaluation. Per patient she was admitted about a month ago at [facility] with stroke, per patient she had speech disturbances and left-sided weakness at that time which later resolved (no records available). Per patient she was on Revlimid for chemotherapy when she had the stroke following which Revlimid was discontinued and she has been started on Velcade as well as dexamethasone since then. Since this morning she also feels that there is some weakness in the left upper and lower extremities. She denies any headache, visual disturbances or speech disturbances at present, denies any sensory loss. Per patient she lives with her , denies any frequent fal ls, does not use any cane or walker to ambulate, and does drive, and does not need any assistance for a day-to-day activities. Per patient at [place] she was told that she had multiple strokes on both the sides of the cerebral hemisphere and later she saw Dr. Garner who per patient started her on Coumadin and it was later changed to Xarelto by her PCP Dr. Augusta Wilson. MRI brain done on admission reported to show acute right posterior frontal infarct in the right pericallosal arterial distribution, 1.9 cm extra-axial left parietal lesion probable meningioma, 5 mm left frontal extra-axial lesion possible meningioma. Plan PT for mobility OT for ADLs ST for cognition Analgesics as needed Bowel protocol Right MCA infarct on ASA, Lipitor and eliquis Multiple myeloma: Chemotherapy on hold but will continue Decadron per hematology/oncology-consult Atrial fibrillation: On Eliquis, rate controlled History of meningioma remotely status post gamma knife therapy, appears to be noncontributory at this point Diarrhea resolved DVT prophylaxis on Eliquis and knee high elvira hose Fall precautions Medical management per hospitalist-consult Follow up with PCP, Hematology/Oncology, Neurology
[2019-02-15 19:11] VITALS: BP 140/69; PULSE 98; RESP 16; TEMP 36.8; O2SAT 93
[2019-02-15] MEDS: Atorvastatin Calcium 80 MG Tablet PO (21:07)
[2019-02-16 05:00] VITALS: BMI 26.1
[2019-02-16] MEDS: Escitalopram Oxalate 10 MG Tablet PO (07:56)
[2019-02-16] MEDS: Multivitamins,Ther W-Minerals Tablet 1 TABLET PO (07:56)
[2019-02-16] MEDS: Aspirin 81 MG TAB.CHEW PO (07:56)
[2019-02-16] MEDS: Acyclovir 200 MG Capsule 400 MG PO ×2 (07:57→21:31)
[2019-02-16] MEDS: APIXABAN 5 MG TABLET PO ×2 (07:57→21:31)
[2019-02-16] MEDS: Calcium (Elemental) 500 MG Tablet PO (07:57)
[2019-02-16] MEDS: Gabapentin 100 MG Capsule PO ×2 (07:59→21:31)
[2019-02-16 08:19] VITALS: BP 149/59; PULSE 90; RESP 16; TEMP 36.8
--- NOTE | 2019-02-16 10:18 | PN.NEURO_ITS ---
Subjective: Per nursing no issues overnight. Per patient tolerating therapies well, denies further questions or concerns. - Physical Exam General: Alert, Oriented x3, Cooperative HEENT: Atraumatic, PERRLA Oral: Moist Mucosa Neck: Supple, No JVD Lungs: Clear to auscultation, Normal air movement Cardiovascular: Regular rate, Regular Rhythm Abdomen: Bowel Sounds Present, Soft, Non Tender Extremities: No clubbing, No cyanosis, No edema Neurological: Cranial nerves II-XII grossly intact - except minimal left visual cut deficit,, Deep Tendon Reflexes 2+/4 and Symmetrical, Motor Exam 5/5 strength throughout - except LUE 4/5 Psych/Mental Status: Normal Affect, Appropriate, Alert and oriented to time, place, person, mood and affect Vital Signs Temp Pulse Resp BP Pulse Ox 98.3 F 90 16 149/59 H 93 02/16/19 08:19 02/16/19 08:19 02/16/19 08:19 02/16/19 08:19 02/15/19 19:11 Oxygen Delivery Method Room Air Weight: 67.5 kg Body Mass Index (BMI) 26.1 Intake and Output for Last 24 Hours 02/14/19 02/15/19 02/16/19 23:59 23:59 23:59 Intake Total 1080 / 1080 600 / 600 Balance 1080 / 1080 600 / 600 Medical Necessity - Tobacco Use Smoking Status: Never smoker Tobacco Use: Non-smoker Assessment/Plan All Active Problems (Last Reviewed 01/25/19 @ 11:59 by Anika Choudhary) Stroke (Acute) PFO (patent foramen ovale) (Ruled-out) a 73-year-old right-handed female who is status post hospitalization for a right MCA distribution infarct with left-sided weakness and debility as noted below. She was admitted to the hospital, as below after having symptoms which have improved. She is tolerated therapy but she has not felt to be improved to the extent that she can return home and is therefore admitted to the rehab unit with a goal of restoring her previous level of functional independence. Prior to her stroke she had been diagnosed with atrial fibrillation and been placed on anticoagulation however she was on low-dose Xarelto. Per neuro consult:The patient is a 73 year old F PMH stroke, PAF on Xarelto, MDS, multiple myeloma, history of meningioma s/p gamma knife surgery 12 years ago admitted with dizziness. Per patient she started having acute onset dizziness yesterday 02/03/2019 after she woke up in the morning and had a fall. Per patient she did not lose her consciousness and denies any syncopal episode. Was later brought to the ED for further evaluation. Per patient she was admitted about a month ago at [facility] with stroke, per patient she had speech disturbances and left-sided weakness at that time which later resolved (no records available). Per patient she was on Revlimid for chemotherapy when she had the stroke following which Revlimid was discontinued and she has been started on Velcade as well as dexamethasone since then. Since this morning she also feels that there is some weakness in the left upper and lower extremities. She denies any headache, visual disturbances or speech disturbances at present, denies any sensory loss. Per patient she lives with her , denies any frequent falls, does not use any cane or walker to ambulate, and does drive, and does not need any assistance for a day-to-day activities. Per patient at [place] she was told that she had multiple strokes on both the sides of the cerebral hemisphere and later she saw Dr. Garner who per patient started her on Coumadin and it was later changed to Xarelto by her PCP Dr. Augusta Wilson. MRI brain done on admission reported to show acute right posterior frontal infarct in the right pericallosal arterial distribution, 1.9 cm extra-axial left parietal lesion probable meningioma, 5 mm left frontal extra-axial lesion possible meningioma. Plan PT for mobility OT for ADLs ST for cognition Analgesics as needed Bowel protocol Right MCA infarct on ASA, Lipitor and eliquis Multiple myeloma: Chemotherapy on hold but will continue Decadron per hematology/oncology-consult Atrial fibrillation: On Eliquis, rate controlled History of meningioma remotely status post gamma knife therapy, appears to be noncontributory at this point Diarrhea resolved DVT prophylaxis on Eliquis and knee high elvira hose Fall precautions Medical management per hospitalist-consult Follow up with PCP, Hematology/Oncology, Neurology
[2019-02-16 14:21] VITALS: BMI 26.1
[2019-02-16] MEDS: Atorvastatin Calcium 80 MG Tablet PO (21:31)
[2019-02-16 22:00] VITALS: BP 144/66; PULSE 89; RESP 16; TEMP 36.7; O2SAT 97
[2019-02-17 02:17] VITALS: BMI 26.1
--- NOTE | 2019-02-17 04:33 | NURSING ---
Reviewed and agree with LPNs fims and handoff
[2019-02-17] MEDS: Gabapentin 100 MG Capsule PO ×2 (07:45→21:37)
[2019-02-17] MEDS: Multivitamins,Ther W-Minerals Tablet 1 TABLET PO (07:45)
[2019-02-17] MEDS: Escitalopram Oxalate 10 MG Tablet PO (07:45)
[2019-02-17] MEDS: Aspirin 81 MG TAB.CHEW PO (07:45)
[2019-02-17] MEDS: Calcium (Elemental) 500 MG Tablet PO (07:45)
[2019-02-17] MEDS: APIXABAN 5 MG TABLET PO ×2 (07:45→21:37)
[2019-02-17 08:05] VITALS: BP 131/64; PULSE 74; RESP 18; TEMP 36.7; O2SAT 96
[2019-02-17] MEDS: Acyclovir 200 MG Capsule 400 MG PO ×2 (09:12→21:36)
--- NOTE | 2019-02-17 11:47 | PN.NEURO_ITS ---
Subjective: Per nursing no issues overnight. Per patient tolerating therapies well and denies further questions or concerns. - Physical Exam General: Alert, Oriented x3, Cooperative HEENT: Atraumatic, PERRLA Oral: Moist Mucosa Lungs: Clear to auscultation, Normal air movement Cardiovascular: Regular rate, Regular Rhythm Abdomen: Bowel Sounds Present, Soft, Non Tender Extremities: No clubbing, No cyanosis, No edema Neurological: Cranial nerves II-XII grossly intact, Deep Tendon Reflexes 2+/4 and Symmetrical, Motor Exam 5/5 strength throughout - excpet LUE 4/5 mild LUE drift Psych/Mental Status: Normal Affect, Appropriate, Alert and oriented to time, place, person, mood and affect Vital Signs Temp Pulse Resp BP Pulse Ox 98.0 F 74 18 131/64 H 96 02/17/19 08:05 02/17/19 08:05 02/17/19 08:05 02/17/19 08:05 02/17/19 08:05 Oxygen Delivery Method Room Air Weight: 67.5 kg Body Mass Index (BMI) 26.1 Intake and Output for Last 24 Hours 02/15/19 02/16/19 02/17/19 23:59 23:59 23:59 Intake Total 1080 / 1080 960 / 960 180 / 180 Balance 1080 / 1080 960 / 960 180 / 180 Medical Necessity - Tobacco Use Smoking Status: Never smoker Tobacco Use: Non-smoker Assessment/Plan All Active Problems (Last Reviewed 01/25/19 @ 11:59 by Anika Choudhary) Stroke (Acute) PFO (patent foramen ovale) (Ruled-out) a 73-year-old right-handed female who is status post hospitalization for a right MCA distribution infarct with left-sided weakness and debility as noted below. She was admitted to the hospital, as below after having symptoms which have improved. She is tolerated therapy but she has not felt to be improved to the extent that she can return home and is therefore admitted to the rehab unit with a goal of restoring her previous level of functional independence. Prior to her stroke she had been diagnosed with atrial fibrillation and been placed on anticoagulation however she was on low-dose Xarelto. Per neuro consult:The patient is a 73 year old F PMH stroke, PAF on Xarelto, MDS, multiple myeloma, history of meningioma s/p gamma knife surgery 12 years ago admitted with dizziness. Per patient she started having acute onset dizziness yesterday 02/03/2019 after she woke up in the morning and had a fall. Per patient she did not lose her consciousness and denies any syncopal episode. Was later brought to the ED for further evaluation. Per patient she was admitted about a month ago at [facility] with stroke, per patient she had speech disturbances and left-sided weakness at that time which later resolved (no records available). Per patient she was on Revlimid for chemotherapy when she had the stroke following which Revlimid was discontinued and she has been started on Velcade as well as dexamethasone since then. Since this morning she also feels that there is some weakness in the left upper and lower extremities. She denies any headache, visual disturbances or speech disturbances at present, denies any sensory loss. Per patient she lives with her , denies any frequent falls, does not use any cane or walker to ambulate, and does drive, and does not need any assistance for a day-to-day activities. Per patient at [place] she was told that she had multiple strokes on both the sides of the cerebral hemisphere and later she saw Dr. Garner who per patient started her on Coumadin and it was later changed to Xarelto by her PCP Dr. Augusta Wilson. MRI brain done on admission reported to show acute right posterior frontal infarct in the right pericallosal arterial distribution, 1.9 cm extra-axial left parietal lesion probable meningioma, 5 mm left frontal extra-axial lesion possible meningioma. Plan PT for mobility OT for ADLs ST for cognition Analgesics as needed Bowel protocol Right MCA infarct on ASA, Lipitor and eliquis Multiple myeloma: Chemotherapy on hold but will continue Decadron per hematology/oncology-consult Atrial fibrillation: On Eliquis, rate controlled History of meningioma remotely status post gamma knife therapy, appears to be noncontributory at this point Diarrhea resolved DVT prophylaxis on Eliquis and knee high elvira hose Fall precautions Medical management per hospitalist-consult Follow up with PCP, Hematology/Oncology, Neurology
[2019-02-17 14:43] VITALS: BMI 26.1
[2019-02-17 20:30] VITALS: BP 132/86; PULSE 78; RESP 16; TEMP 36.6; O2SAT 97
[2019-02-17] MEDS: Atorvastatin Calcium 80 MG Tablet PO (21:37)
[2019-02-17 23:08] VITALS: BMI 26.1
[2019-02-18 09:14] VITALS: BP 113/60; PULSE 73; RESP 17; TEMP 36.5; O2SAT 97
[2019-02-18] MEDS: Calcium (Elemental) 500 MG Tablet PO (09:32)
[2019-02-18] MEDS: Aspirin 81 MG TAB.CHEW PO (09:32)
[2019-02-18] MEDS: Multivitamins,Ther W-Minerals Tablet 1 TABLET PO (09:32)
[2019-02-18] MEDS: APIXABAN 5 MG TABLET PO ×2 (09:33→20:52)
[2019-02-18] MEDS: Escitalopram Oxalate 10 MG Tablet PO (09:33)
[2019-02-18] MEDS: Acyclovir 200 MG Capsule 400 MG PO ×2 (09:33→20:53)
[2019-02-18] MEDS: Gabapentin 100 MG Capsule PO ×2 (09:33→20:53)
[2019-02-18 14:46] VITALS: BMI 26.1
[2019-02-18 18:53] VITALS: BP 124/59; PULSE 93; RESP 18; TEMP 37.1; O2SAT 97
[2019-02-18] MEDS: Atorvastatin Calcium 80 MG Tablet PO (20:52)
[2019-02-18 20:55] VITALS: BMI 26.1
[2019-02-18 22:00] VITALS: PULSE 93; RESP 18; O2SAT 97
[2019-02-19] MEDS: Escitalopram Oxalate 10 MG Tablet PO (08:18)
[2019-02-19] MEDS: Calcium (Elemental) 500 MG Tablet PO (08:18)
[2019-02-19] MEDS: APIXABAN 5 MG TABLET PO ×2 (08:18→21:26)
[2019-02-19] MEDS: Multivitamins,Ther W-Minerals Tablet 1 TABLET PO (08:18)
[2019-02-19] MEDS: Aspirin 81 MG TAB.CHEW PO (08:18)
[2019-02-19] MEDS: Acyclovir 200 MG Capsule 400 MG PO ×2 (08:19→21:26)
[2019-02-19] MEDS: Gabapentin 100 MG Capsule PO ×2 (08:19→21:26)
[2019-02-19 08:29] VITALS: BP 139/72; PULSE 74; RESP 18; TEMP 36.6; O2SAT 96
--- NOTE | 2019-02-19 13:31 | NURSING ---
Ambulated in hallway with staff.
[2019-02-19 13:37] VITALS: BMI 26.1
[2019-02-19 19:29] VITALS: BP 141/65; PULSE 82; RESP 16; TEMP 36.4; O2SAT 96
[2019-02-19] MEDS: Atorvastatin Calcium 80 MG Tablet PO (21:26)
[2019-02-19 21:31] VITALS: BMI 26.1
[2019-02-19 22:00] VITALS: PULSE 82; RESP 16; O2SAT 96
[2019-02-20 08:05] VITALS: BP 139/73; PULSE 89; RESP 16; TEMP 36.6; O2SAT 97
[2019-02-20] MEDS: APIXABAN 5 MG TABLET PO ×2 (08:11→20:25)
[2019-02-20] MEDS: Aspirin 81 MG TAB.CHEW PO (08:11)
[2019-02-20] MEDS: Calcium (Elemental) 500 MG Tablet PO (08:11)
[2019-02-20] MEDS: Escitalopram Oxalate 10 MG Tablet PO (08:11)
[2019-02-20] MEDS: Multivitamins,Ther W-Minerals Tablet 1 TABLET PO (08:11)
[2019-02-20] MEDS: Acyclovir 200 MG Capsule 400 MG PO ×2 (08:12→20:25)
[2019-02-20] MEDS: Gabapentin 100 MG Capsule PO ×2 (08:12→20:24)
--- NOTE | 2019-02-20 09:42 | PN.NEURO_ITS ---
Subjective: Team meeting held. Per PT, ambulating with quad cane at SBA level but noted distractibility and slowness at times d/t cognitive processes. Per OT, improved coordination to left arm/hand. SBA with shower transfers, supervised with ADLs, except SBA with lower body drsg. Per ST, working on higher level executive functioning, more complex is having slower thought process. Working on left visual neglect compensatory mechanisms. Per SW, re-team next week, approved until March 02. - Physical Exam General: Alert, Oriented x3, Cooperative HEENT: Atraumatic, PERRLA Oral: Moist Mucosa Neck: Supple, No JVD Lungs: Clear to auscultation, Normal air movement Cardiovascular: Regular rate, Regular Rhythm Abdomen: Bowel Sounds Present, Soft, Non Tender Extremities: No clubbing, No cyanosis, No edema Neurological: Cranial nerves II-XII grossly intact - minimal left visual field cut deficit, Deep Tendon Reflexes 2+/4 and Symmetrical, Motor Exam 5/5 strength throughout - except LUE 4/5. Psych/Mental Status: Normal Affect, Appropriate, Alert and oriented to time, place, person, mood and affect Vital Signs Temp Pulse Resp BP Pulse Ox 97.9 F 89 16 139/73 H 97 02/20/19 08:05 02/20/19 08:05 02/20/19 08:05 02/20/19 08:05 02/20/19 08:05 Oxygen Delivery Method Room Air Weight: 67.5 kg Body Mass Index (BMI) 26.1 Intake and Output for Last 24 Hours 02/18/19 02/19/19 02/20/19 23:59 23:59 23:59 Intake Total 460 / 460 Balance 460 / 460 Medical Necessity - Tobacco Use Smoking Status: Never smoker Tobacco Use: Non-smoker Assessment/Plan All Active Problems (Last Reviewed 01/25/19 @ 11:59 by Anika Choudhary) Stroke (Acute) PFO (patent foramen ovale) (Ruled-out) a 73-year-old right-handed female who is status post hospitalization for a right MCA distribution infarct with left-sided weakness and debility as noted below. She was admitted to the hospital, as below after having symptoms which have improved. She is tolerated therapy but she has not felt to be improved to the extent that she can return home and is therefore admitted to the rehab unit with a goal of restoring her previous level of functional independence. Prior to her stroke she had been diagnosed with atrial fibrillation and been placed on anticoagulation however she was on low-dose Xarelto. Per neuro consult:The patient is a 73 year old F PMH stroke, PAF on Xarelto, MDS, multiple myeloma, history of meningioma s/p gamma knife surgery 12 years ago admitted with dizziness. Per patient she started having acute onset dizziness yesterday 02/03/2019 after she woke up in the morning and had a fall. Per patient she did not lose her consciousness and denies any syncopal episode. Was later brought to the ED for further evaluation. Per patient she was admitted about a month ago at [facility] with stroke, per patient she had speech disturbances and left-sided weakness at that time which later resolved (no records available). Per patient she was on Revlimid for chemotherapy when she had the stroke following which Revlimid was discontinued and she has been started on Velcade as well as dexamethasone since then. Since this morning she also feels that there is some weakness in the left upper and lower extremities. She denies any headache, visual disturbances or speech disturbances at present, denies any sensory loss. Per patient she lives with her , denies any frequent falls, does not use any cane or walker to ambulate, and does drive, and does not need any assistance for a day-to-day activities. Per patient at [place] she was told that she had multiple strokes on both the sides of the cerebral hemisphere and later she saw Dr. Garner who per patient started her on Coumadin and it was later changed to Xarelto by her PCP Dr. Augusta Wilson. MRI brain done on admission reported to show acute right posterior frontal infarct in the right pericallosal arterial distribution, 1.9 cm extra-axial left parietal lesion probable meningioma, 5 mm left frontal extra-axial lesion possible meningioma. Plan PT for mobility OT for ADLs ST for cognition Analgesics as needed Bowel protocol Right MCA infarct on ASA, Lipitor and eliquis Multiple myeloma: Chemotherapy on hold but will continue Decadron per hematology/oncology-consult Atrial fibrillation: On Eliquis, rate controlled History of meningioma remotely status post gamma knife therapy, appears to be noncontributory at this point Diarrhea resolved DVT prophylaxis on Eliquis and knee high elvira hose Fall precautions Medical management per hospitalist-consult Follow up with PCP, Hematology/Oncology, Neurology
[2019-02-20 10:14] VITALS: BMI 26.1
--- NOTE | 2019-02-20 10:52 | CASEMGMT ---
Social Work IDT met with patient and [id number] for Team meeting. Patient continues to progress well with therapy; however, still having slow reaction times, distractible when walking. ST and PT still working on further improvements. Will reteam next week to discuss DC needs with a DC date of 02/28. Heidi Lugo, MERCERIZER MACHINE OPERATOR ANIMAL SCIENTIST
[2019-02-20 18:15] VITALS: BP 116/62; PULSE 86; RESP 16; TEMP 36.4; O2SAT 94
[2019-02-20 19:44] VITALS: BMI 26.1
[2019-02-20 19:47] VITALS: RESP 17; O2SAT 97
[2019-02-20] MEDS: Atorvastatin Calcium 80 MG Tablet PO (20:25)
[2019-02-21 07:58] VITALS: BP 118/59; PULSE 77; RESP 16; TEMP 36.9; O2SAT 93
[2019-02-21] MEDS: APIXABAN 5 MG TABLET PO ×2 (08:48→21:00)
[2019-02-21] MEDS: Multivitamins,Ther W-Minerals Tablet 1 TABLET PO (08:48)
[2019-02-21] MEDS: Aspirin 81 MG TAB.CHEW PO (08:48)
[2019-02-21] MEDS: Calcium (Elemental) 500 MG Tablet PO (08:48)
[2019-02-21] MEDS: Gabapentin 100 MG Capsule PO ×2 (08:49→20:59)
[2019-02-21] MEDS: Acyclovir 200 MG Capsule 400 MG PO ×2 (08:49→21:00)
[2019-02-21] MEDS: Escitalopram Oxalate 10 MG Tablet PO (08:49)
--- NOTE | 2019-02-21 14:01 | PCM.PN.NEU ---
Subjective: Per nursing no issues overnight. Per patient, continues to tolerate therapies. Patient denies RUIZ, blurred/double vision, dizziness or lightheadedness. Patient denied further questions or concerns. - Physical Exam General: Alert, Oriented x3, Cooperative HEENT: Atraumatic, PERRLA Oral: Moist Mucosa Neck: Supple, No JVD Lungs: Clear to auscultation, Normal air movement Cardiovascular: Regular rate, Regular Rhythm Abdomen: Bowel Sounds Present, Soft, Non Tender Extremities: No clubbing, No cyanosis, No edema Neurological: Cranial nerves II-XII grossly intact - minmal left visual field cut deficit, Deep Tendon Reflexes 2+/4 and Symmetrical, Motor Exam 5/5 strength throughout Psych/Mental Status: Normal Affect, Appropriate, Alert and oriented to time, place, person, mood and affect Vital Signs Temp Pulse Resp BP Pulse Ox 98.4 F 77 16 118/59 L 93 02/21/19 07:58 02/21/19 07:58 02/21/19 07:58 02/21/19 07:58 02/21/19 07:58 Oxygen Delivery Method Room Air Weight: 67.5 kg Body Mass Index (BMI) 26.1 Intake and Output for Last 24 Hours 02/19/19 02/20/19 02/21/19 23:59 23:59 23:59 Intake Total 360 / 360 Balance 360 / 360 Medical Necessity - Tobacco Use Smoking Status: Never smoker Tobacco Use: Non-smoker Assessment/Plan All Active Problems (Last Reviewed 01/25/19 @ 11:59 by Anika Choudhary) Stroke (Acute) PFO (patent foramen ovale) (Ruled-out) a 73-year-old right-handed female who is status post hospitalization for a right MCA distribution infarct with left-sided weakness and debility as noted below. She was admitted to the hospital, as below after having symptoms which have improved. She is tolerated therapy but she has not felt to be improved to the extent that she can return home and is therefore admitted to the rehab unit with a goal of restoring her previous level of functional independence. Prior to her stroke she had been diagnosed with atrial fibrillation and been placed on anticoagulation however she was on low-dose Xarelto. Per neuro consult:The patient is a 73 year old F PMH stroke, PAF on Xarelto, MDS, multiple myeloma, history of meningioma s/p gamma knife surgery 12 years ago admitted with dizziness. Per patient she started having acute onset dizziness yesterday 02/03/2019 after she woke up in the morning and had a fall. Per patient she did not lose her consciousness and denies any syncopal episode. Was later brought to the ED for further evaluation. Per patient she was admitted about a month ago at [facility] with stroke, per patient she had speech disturbances and left-sided weakness at that time which later resolved (no records available). Per patient she was on Revlimid for chemotherapy when she had the stroke following which Revlimid was discontinued and she has been started on Velcade as well as dexamethasone since then. Since this morning she also feels that there is some weakness in the left upper and lower extremities. She denies any headache, visual disturbances or speech disturbances at present, denies any sensory loss. Per patient she lives with her , denies any frequent falls, does not use any cane or walker to ambulate, and does drive, and does not need any assistance for a day-to-day activities. Per patient at [place] she was told that she had multiple strokes on both the sides of the cerebral hemisphere and later she saw Dr. Garner who per patient started her on Coumadin and it was later changed to Xarelto by her PCP Dr. Augusta Wilson. MRI brain done on admission reported to show acute right posterior frontal infarct in the right pericallosal arterial distribution, 1.9 cm extra-axial left parietal lesion probable meningioma, 5 mm left frontal extra-axial lesion possible meningioma. Plan PT for mobility OT for ADLs ST for cognition Analgesics as needed Bowel protocol Right MCA infarct on ASA, Lipitor and eliquis Multiple myeloma: Chemotherapy on hold but will continue Decadron per hematology/oncology-consult Atrial fibrillation: On Eliquis, rate controlled History of meningioma remotely status post gamma knife therapy, appears to be noncontributory at this point Diarrhea resolved DVT prophylaxis on Eliquis and knee high elvira hose Fall precautions Medical management per hospitalist-consult Follow up with PCP, Hematology/Oncology, Neurology
[2019-02-21 14:48] VITALS: BMI 26.1
[2019-02-21 19:40] VITALS: BP 118/70; PULSE 100; RESP 18; TEMP 36.5; O2SAT 98
[2019-02-21] MEDS: Atorvastatin Calcium 80 MG Tablet PO (21:00)
[2019-02-21 21:05] VITALS: BMI 26.1
[2019-02-21 22:00] VITALS: O2SAT 98
[2019-02-22 07:32] VITALS: BP 115/67; PULSE 81; RESP 18; TEMP 36.7; O2SAT 94
[2019-02-22] MEDS: Escitalopram Oxalate 10 MG Tablet PO (08:15)
[2019-02-22] MEDS: Multivitamins,Ther W-Minerals Tablet 1 TABLET PO (08:15)
[2019-02-22] MEDS: Calcium (Elemental) 500 MG Tablet PO (08:15)
[2019-02-22] MEDS: Acyclovir 200 MG Capsule 400 MG PO ×2 (08:15→21:43)
[2019-02-22] MEDS: Gabapentin 100 MG Capsule PO ×2 (08:15→21:43)
[2019-02-22] MEDS: Aspirin 81 MG TAB.CHEW PO (08:15)
[2019-02-22] MEDS: dexAMETHasone 4 MG Tablet 40 MG PO (08:15)
[2019-02-22] MEDS: APIXABAN 5 MG TABLET PO ×2 (08:20→21:43)
--- NOTE | 2019-02-22 09:32 | PCM.PN.NEU ---
Subjective: Per nursing no issues overnight. Per patient tolerating therapies well. Denies RUIZ, blurred or double vision, lightheadedness or dizziness. Patient denies further questions or concerns. - Physical Exam General: Alert, Cooperative HEENT: Atraumatic, PERRLA Oral: Moist Mucosa Neck: Supple, No JVD Lungs: Clear to auscultation, Normal air movement Cardiovascular: Regular rate, Regular Rhythm Abdomen: Bowel Sounds Present, Soft, Non Tender Extremities: No clubbing, No cyanosis, No edema Neurological: Cranial nerves II-XII grossly intact - except minimal left visual field cut deficit, Deep Tendon Reflexes 2+/4 and Symmetrical, Motor Exam 5/5 strength throughout Psych/Mental Status: Normal Affect, Appropriate, Alert and oriented to time, place, person, mood and affect Vital Signs Temp Pulse Resp BP Pulse Ox 98.1 F 81 18 115/67 94 02/22/19 07:32 02/22/19 07:32 02/22/19 07:32 02/22/19 07:32 02/22/19 07:32 Oxygen Delivery Method Room Air Weight: 67.8 kg Body Mass Index (BMI) 26.1 Intake and Output for Last 24 Hours 02/20/19 02/21/19 02/22/19 23:59 23:59 23:59 Intake Total 360 / 360 Balance 360 / 360 Medical Necessity - Tobacco Use Smoking Status: Never smoker Tobacco Use: Non-smoker Assessment/Plan All Active Problems (Last Reviewed 01/25/19 @ 11:59 by Anika Choudhary) Stroke (Acute) PFO (patent foramen ovale) (Ruled-out) a 73-year-old right-handed female who is status post hospitalization for a right MCA distribution infarct with left-sided weakness and debility as noted below. She was admitted to the hospital, as below after having symptoms which have improved. She is tolerated therapy but she has not felt to be improved to the extent that she can return home and is therefore admitted to the rehab unit with a goal of restoring her previous level of functional independence. Prior to her stroke she had been diagnosed with atrial fibrillation and been placed on anticoagulation however she was on low-dose Xarelto. Per neuro consult:The patient is a 73 year old F PMH stroke, PAF on Xarelto, MDS, multiple myeloma, history of meningioma s/p gamma knife surgery 12 years ago admitted with dizziness. Per patient she started having acute onset dizziness yesterday 02/03/2019 after she woke up in the morning and had a fall. Per patient she did not lose her consciousness and denies any syncopal episode. Was later brought to the ED for further evaluation. Per patient she was admitted about a month ago at [facility] with stroke, per patient she had speech disturbances and left-sided weakness at that time which later resolved (no records available). Per patient she was on Revlimid for chemotherapy when she had the stroke following which Revlimid was discontinued and she has been started on Velcade as well as dexamethasone since then. Since this morning she also feels that there is some weakness in the left upper and lower extremities. She denies any headache, visual disturbances or speech disturbances at present, denies any sensory loss. Per patient she lives with her , denies any frequent falls, does not use any cane or walker to ambulate, and does drive, and does not need any assistance for a day-to-day activities. Per patient at [place] she was told that she had multiple strokes on both the sides of the cerebral hemisphere and later she saw Dr. Garner who per patient started her on Coumadin and it was later changed to Xarelto by her PCP Dr. Augusta Wilson. MRI brain done on admission reported to show acute right posterior frontal infarct in the right pericallosal arterial distribution, 1.9 cm extra-axial left parietal lesion probable meningioma, 5 mm left frontal extra-axial lesion possible meningioma. Plan PT for mobility OT for ADLs ST for cognition Analgesics as needed Bowel protocol Right MCA infarct on ASA, Lipitor and eliquis Multiple myeloma: Chemotherapy on hold but will continue Decadron per hematology/oncology-consult Atrial fibrillation: On Eliquis, rate controlled History of meningioma remotely status post gamma knife therapy, appears to be noncontributory at this point Diarrhea resolved DVT prophylaxis on Eliquis and knee high elvira hose Fall precautions Medical management per hospitalist-consult Follow up with PCP, Hematology/Oncology, Neurology
[2019-02-22 13:38] VITALS: BMI 26.1
--- NOTE | 2019-02-22 16:36 | PN_ITS ---
Subjective: Patient has a history of multiple myeloma. As per patient, PET scan showed in hip and pelvis. Patient had 3 ischemic stroke. Left-sided weakness and speech have improved. No facial droop. Denies history of A. fib diagnosed on EKG. Last EKG of 02/04/2019 is normal sinus rhythm. Vitals/I&O's: Vital Signs Temp Pulse Resp BP Pulse Ox 98.1 F 81 18 115/67 94 02/22/19 07:32 02/22/19 07:32 02/22/19 07:32 02/22/19 07:32 02/22/19 07:32 Oxygen Delivery Method Room Air Weight: 149 lb 7.574 oz Body Mass Index (BMI) 26.1 Intake and Output for Last 24 Hours 02/20/19 02/21/19 02/22/19 23:59 23:59 23:59 Intake Total 360 / 360 Balance 360 / 360 General: Alert, Oriented x3, Cooperative HEENT: Atraumatic, PERRLA, EOMI, Normocephalic Neck: Supple, No JVD, Negative Carotid Bruits Lungs: Clear to auscultation, Normal air movement, No rhonchi, No wheeze, No rales Cardiovascular: Regular rate, Regular Rhythm, Normal S1, Normal S2, No murmurs Abdomen: Bowel Sounds Present, Soft, Non Tender, Non-Distended Extremities: No edema, Capillary Refill Less than 3 Seconds Skin: No rashes, No breakdown Musculoskeletal: No Tenderness to Palpation of Joints or Extremities Neurological: Cranial nerves II-XII grossly intact, Deep Tendon Reflexes 2+/4 and Symmetrical, Neuro grossly intact, Motor Exam 5/5 strength throughout, - - Mild slurring speech. Psych/Mental Status: Normal Affect, Appropriate Current Medications Acetaminophen (Tylenol) 650 mg PO Q6H PRN PRN PRN Reason: Mild Pain (0-3/10)/Headache Acyclovir (Zovirax) 400 mg PO BID [facility] Last Admin: 02/22/19 08:15 Dose: 400 mg Documented by: Apixaban (Eliquis) 5 mg PO BID [facility] Last Admin: 02/22/19 08:20 Dose: 5 mg Documented by: Aspirin (Aspirin, Baby) 81 mg PO DAILY@0800 [facility] Last Admin: 02/22/19 08:15 Dose: 81 mg Documented by: Atorvastatin Calcium (Lipitor) 80 mg PO QHS [facility] Last Admin: 02/21/19 21:00 Dose: 80 mg Documented by: Bisacodyl (Dulcolax) 10 mg RECTAL .PRN X 1 PRN PRN Reason: Constipation Calcium Carbonate (Os-Nils 500) 500 mg PO DAILYCM [facility] Last Admin: 02/22/19 08:15 Dose: 500 mg Documented by: Cholecalciferol (Vitamin D) 5,000 unit PO DAILY [facility] Last Admin: 02/22/19 08:14 Dose: 5,000 unit Documented by: Dexamethasone (Decadron) 40 mg PO Q7D@0800 [facility] Last Admin: 02/22/19 08:15 Dose: 40 mg Documented by: Escitalopram Oxalate (Lexapro) 10 mg PO DAILY [facility] Last Admin: 02/22/19 08:15 Dose: 10 mg Documented by: Gabapentin (Neurontin) 100 mg PO BID [facility] Last Admin: 02/22/19 08:15 Dose: 100 mg Documented by: Loperamide HCl (Imodium) 2 mg PO Q6H PRN PRN PRN Reason: Diarrhea Last Admin: 02/09/19 11:25 Dose: 2 mg Documented by: Lorazepam (Ativan) 0.5 mg PO QHS PRN PRN PRN Reason: ANXIETY/RESTLESSNESS/SLEEP Magnesium Hydroxide (Milk Of Magnesia) 30 ml PO .PRN X 1 PRN PRN Reason: Constipation Multivitamins/Minerals (Multivitamin With Minerals) 1 tablet PO DAILY@0800 [facility] Last Admin: 02/22/19 08:15 Dose: 1 tablet Documented by: Senna/Docusate Sodium (Senokot-S, Kassy-Colace) 2 tablet PO BID [facility] Last Admin: 02/22/19 08:13 Dose: Not Given Documented by: Medical Necessity - Tobacco Use Smoking Status: Never smoker Tobacco Use: Non-smoker Assessment/Plan All Active Problems (Last Reviewed 01/25/19 @ 11:59 by Anika Choudhary) Stroke (Acute) PFO (patent foramen ovale) (Ruled-out) This 73 female admitted to acute rehab after she had right ischemic MCA stroke. She was transitioned to Eliquis by neurologist after this stroke as it was thought that she has treatment failure with Xarelto. Previously, she had bilateral small ischemic stroke few months ago. She is on anticoagulation for presumed A. fib of bilateral ischemic stroke. Impressions 1. Recent right-sided ischemic MCA stroke while on Xarelto. Anticoagulation is changed to Eliquis. Motor strength and his speech have improved. Echo in outside hospital revealed no PFO and bubble contrast was negative. 2. Multiple myeloma- managed by oncologist, Dr. Gómez 3. Meningioma- has had gamma knife in the past 4. Distant history of cellulitis of the BL LE's - resolved with Clindamycin 5. depression Active Medications Acetaminophen (Tylenol) 650 mg PO Q6H PRN PRN PRN Reason: Mild Pain (0-310)/Headache Acyclovir (Zovirax) 400 mg PO BID [facility] Last Admin: 02/22/19 08:15 Dose: 400 mg Documented by: Apixaban (Eliquis) 5 mg PO BID [facility] Last Admin: 02/22/19 08:20 Dose: 5 mg Documented by: Aspirin (Aspirin, Baby) 81 mg PO DAILY@0800 [facility] Last Admin: 02/22/19 08:15 Dose: 81 mg Documented by: Atorvastatin Calcium (Lipitor) 80 mg PO QHS [facility] Last Admin: 02/21/19 21:00 Dose: 80 mg Documented by: Bisacodyl (Dulcolax) 10 mg RECTAL .PRN X 1 PRN PRN Reason: Constipation Calcium Carbonate (Os-Nils 500) 500 mg PO DAILYCM [facility] Last Admin: 02/22/19 08:15 Dose: 500 mg Documented by: Cholecalciferol (Vitamin D) 5,000 unit PO DAILY [facility] Last Admin: 02/22/19 08:14 Dose: 5,000 unit Documented by: Dexamethasone (Decadron) 40 mg PO Q7D@0800 [facility] Last Admin: 02/22/19 08:15 Dose: 40 mg Documented by: Escitalopram Oxalate (Lexapro) 10 mg PO DAILY [facility] Last Admin: 02/22/19 08:15 Dose: 10 mg Documented by: Gabapentin (Neurontin) 100 mg PO BID [facility] Last Admin: 02/22/19 08:15 Dose: 100 mg Documented by: Loperamide HCl (Imodium) 2 mg PO Q6H PRN PRN PRN Reason: Diarrhea Last Admin: 02/09/19 11:25 Dose: 2 mg Documented by: Lorazepam (Ativan) 0.5 mg PO QHS PRN PRN PRN Reason: ANXIETY/RESTLESSNESS/SLEEP Magnesium Hydroxide (Milk Of Magnesia) 30 ml PO .PRN X 1 PRN PRN Reason: Constipation Multivitamins/Minerals (Multivitamin With Minerals) 1 tablet PO DAILY@0800 [facility] Last Admin: 02/22/19 08:15 Dose: 1 tablet Documented by: Senna/Docusate Sodium (Senokot-S, Kassy-Colace) 2 tablet PO BID [facility] Last Admin: 02/22/19 08:13 Dose: Not Given Documented by: Code Visit Inpatient E&M: 32124 Subs Hosp L2
[2019-02-22 19:01] VITALS: BP 140/83; PULSE 106; RESP 16; TEMP 36.8; O2SAT 98
[2019-02-22] MEDS: Atorvastatin Calcium 80 MG Tablet PO (21:43)
[2019-02-22 21:45] VITALS: BMI 26.1
[2019-02-23 07:40] VITALS: BP 128/61; PULSE 92; RESP 16; TEMP 36.6; O2SAT 93
[2019-02-23] MEDS: Aspirin 81 MG TAB.CHEW PO (07:50)
[2019-02-23] MEDS: Multivitamins,Ther W-Minerals Tablet 1 TABLET PO (07:50)
[2019-02-23] MEDS: Escitalopram Oxalate 10 MG Tablet PO (07:50)
[2019-02-23] MEDS: Acyclovir 200 MG Capsule 400 MG PO ×2 (07:50→22:38)
[2019-02-23] MEDS: Calcium (Elemental) 500 MG Tablet PO (07:50)
[2019-02-23] MEDS: Gabapentin 100 MG Capsule PO ×2 (07:51→22:38)
[2019-02-23] MEDS: APIXABAN 5 MG TABLET PO ×2 (07:51→22:38)
--- NOTE | 2019-02-23 08:55 | PN.NEURO_ITS ---
Subjective: Per nursing no issues overnight. Per patient, continues to tolerate therapies well. Denies further questions or concerns. - Physical Exam General: Alert, Oriented x3, Cooperative HEENT: Atraumatic, PERRLA Oral: Moist Mucosa Neck: Supple, No JVD Lungs: Clear to auscultation, Normal air movement Cardiovascular: Regular rate, Regular Rhythm Abdomen: Bowel Sounds Present, Soft, Non Tender Extremities: No clubbing, No cyanosis, No edema Neurological: Cranial nerves II-XII grossly intact, Deep Tendon Reflexes 2+/4 and Symmetrical, Motor Exam 5/5 strength throughout, - - without left visual cut deficit Psych/Mental Status: Normal Affect, Appropriate, Alert and oriented to time, pl [place], person, mood and affect Vital Signs Temp Pulse Resp BP Pulse Ox 97.9 F 92 16 128/61 H 93 02/23/19 07:40 02/23/19 07:40 02/23/19 07:40 02/23/19 07:40 02/23/19 07:40 Oxygen Delivery Method Room Air Weight: 67.8 kg Body Mass Index (BMI) 26.1 Intake and Output for Last 24 Hours 02/21/19 02/22/19 02/23/19 23:59 23:59 23:59 Intake Total 360 / 360 360 / 360 Balance 360 / 360 360 / 360 Medical Necessity - Tobacco Use Smoking Status: Never smoker Tobacco Use: Non-smoker Assessment/Plan All Active Problems (Last Reviewed 01/25/19 @ 11:59 by Anika Choudhary) Stroke (Acute) PFO (patent foramen ovale) (Ruled-out) a 73-year-old right-handed female who is status post hospitalization for a right MCA distribution infarct with left-sided weakness and debility as noted below. She was admitted to the hospital, as below after having symptoms which have improved. She is tolerated therapy but she has not felt to be improved to the extent that she can return home and is therefore admitted to the rehab unit with a goal of restoring her previous level of functional independence. Prior to her stroke she had been diagnosed with atrial fibrillation and been placed on anticoagulation however she was on low-dose Xarelto. Per neuro consult:The patient is a 73 year old F PMH stroke, PAF on Xarelto, MDS, multiple myeloma, history of meningioma s/p gamma knife surgery 12 years ago admitted with dizziness. Per patient she started having acute onset dizziness yesterday 02/03/2019 after she woke up in the morning and had a fall. Per patient she did not lose her consciousness and denies any syncopal episode. Was later brought to the ED for further evaluation. Per patient she was admitted about a month ago at [facility] with stroke, per patient she had speech disturbances and left-sided weakness at that time which later resolved (no records available). Per patient she was on Revlimid for chemotherapy when she had the stroke following which Revlimid was discontinued and she has been started on Velcade as well as dexamethasone since then. Since this morning she also feels that there is some weakness in the left upper and lower extremities. She denies any headache, visual disturbances or speech disturbances at present, denies any sensory loss. Per patient she lives with her , denies any frequent falls, does not use any cane or walker to ambulate, and does drive, and does not need any assistance for a day-to-day activities. Per patient at [place] she was told that she had multiple strokes on both the sides of the cerebral hemisphere and later she saw Dr. Garner who per patient started her on Coumadin and it was later changed to Xarelto by her PCP Dr. Augusta Wilson. MRI brain done on admission reported to show acute right posterior frontal infarct in the right pericallosal arterial distribution, 1.9 cm extra-axial left parietal lesion probable meningioma, 5 mm left frontal extra-axial lesion possible meningioma. Plan PT for mobility OT for ADLs ST for cognition Analgesics as needed Bowel protocol Right MCA infarct on ASA, Lipitor and eliquis Multiple myeloma: Chemotherapy on hold but will continue Decadron per hematology/oncology-consult Atrial fibrillation: On Eliquis, rate controlled History of meningioma remotely status post gamma knife therapy, appears to be noncontributory at this point Diarrhea resolved DVT prophylaxis on Eliquis and knee high elvira hose Fall precautions Medical management per hospitalist-consult Follow up with PCP, Hematology/Oncology, Neurology
[2019-02-23 15:39] VITALS: BMI 26.1
--- NOTE | 2019-02-23 19:00 | NURSING ---
Reviewed and agree with [facility] FIMS and charting
[2019-02-23 19:44] VITALS: BP 145/72; PULSE 97; RESP 16; TEMP 36.5; O2SAT 95
[2019-02-23] MEDS: Atorvastatin Calcium 80 MG Tablet PO (22:38)
[2019-02-24] MEDS: Multivitamins,Ther W-Minerals Tablet 1 TABLET PO (07:39)
[2019-02-24] MEDS: Calcium (Elemental) 500 MG Tablet PO (07:39)
[2019-02-24] MEDS: Escitalopram Oxalate 10 MG Tablet PO (07:39)
[2019-02-24] MEDS: Aspirin 81 MG TAB.CHEW PO (07:39)
[2019-02-24] MEDS: APIXABAN 5 MG TABLET PO ×2 (07:39→20:30)
[2019-02-24] MEDS: Gabapentin 100 MG Capsule PO ×2 (07:39→20:31)
[2019-02-24] MEDS: Acyclovir 200 MG Capsule 400 MG PO ×2 (07:39→20:30)
[2019-02-24 08:36] VITALS: BP 113/57; PULSE 80; RESP 18; TEMP 36.6; O2SAT 97
--- NOTE | 2019-02-24 10:32 | PCM.PN.NEU ---
Subjective: No issues overnight per nursing. Patient continues to tolerate therapies well. Denies RUIZ, blurred or double vision, dizziness or lightheadedness. Denies further questions or concerns. - Physical Exam General: Alert, Oriented x3, Cooperative HEENT: Atraumatic, PERRLA Oral: Moist Mucosa Neck: Supple, No JVD Lungs: Clear to auscultation, Normal air movement Cardiovascular: Regular rate, Regular Rhythm Abdomen: Bowel Sounds Present, Soft, Non Tender Extremities: No clubbing, No cyanosis, No edema Neurological: Cranial nerves II-XII grossly intact, Deep Tendon Reflexes 2+/4 and Symmetrical, Motor Exam 5/5 strength throughout Psych/Mental Status: Normal Affect, Appropriate, Alert and oriented to time, place, person, mood and affect Vital Signs Temp Pulse Resp BP Pulse Ox 97.9 F 80 18 113/57 L 97 02/24/19 08:36 02/24/19 08:36 02/24/19 08:36 02/24/19 08:36 02/24/19 08:36 Oxygen Delivery Method Room Air Weight: 67.8 kg Body Mass Index (BMI) 26.1 Intake and Output for Last 24 Hours 02/22/19 02/23/19 02/24/19 23:59 23:59 23:59 Intake Total 600 / 600 240 / 240 Balance 600 / 600 240 / 240 Medical Necessity - Tobacco Use Smoking Status: Never smoker Tobacco Use: Non-smoker Assessment/Plan All Active Problems (Last Reviewed 01/25/19 @ 11:59 by Anika Choudhary) Stroke (Acute) PFO (patent foramen ovale) (Ruled-out) a 73-year-old right-handed female who is status post hospitalization for a right MCA distribution infarct with left-sided weakness and debility as noted below. She was admitted to the hospital, as below after having symptoms which have improved. She is tolerated therapy but she has not felt to be improved to the extent that she can return home and is therefore admitted to the rehab unit with a goal of restoring her previous level of functional independence. Prior to her stroke she had been diagnosed with atrial fibrillation and been placed on anticoagulation however she was on low-dose Xarelto. Per neuro consult:The patient is a 73 year old F PMH stroke, PAF on Xarelto, MDS, multiple myeloma, history of meningioma s/p gamma knife surgery 12 years ago admitted with dizziness. Per patient she started having acute onset dizziness yesterday 02/03/2019 after she woke up in the morning and had a fall. Per patient she did not lose her consciousness and denies any syncopal episode. Was later brought to the ED for further evaluation. Per patient she was admitted about a month ago at [facility] with stroke, per patient she had speech disturbances and left-sided weakness at that time which later resolved (no records available). Per patient she was on Revlimid for chemotherapy when she had the stroke following which Revlimid was discontinued and she has been started on Velcade as well as dexamethasone since then. Since this morning she also feels that there is some weakness in the left upper and lower extremities. She denies any headache, visual disturbances or speech disturbances at present, denies any sensory loss. Per patient she lives with her , denies any frequent falls, does not use any cane or walker to ambulate, and does drive, and does not need any assistance for a day-to-day activities. Per patient at [place] she was told that she had multiple strokes on both the sides of the cerebral hemisphere and later she saw Dr. Garner who per patient started her on Coumadin and it was later changed to Xarelto by her PCP Dr. Augusta Wilson. MRI brain done on admission reported to show acute right posterior frontal infarct in the right pericallosal arterial distribution, 1.9 cm extra-axial left parietal lesion probable meningioma, 5 mm left frontal extra-axial lesion possible meningioma. Plan PT for mobility OT for ADLs ST for cognition Analgesics as needed Bowel protocol Right MCA infarct on ASA, Lipitor and eliquis Multiple myeloma: Chemotherapy on hold but will continue Decadron per hematology/oncology-consult Atrial fibrillation: On Eliquis, rate controlled History of meningioma remotely status post gamma knife therapy, appears to be noncontributory at this point Diarrhea resolved DVT prophylaxis on Eliquis and knee high elvira hose Fall precautions Medical management per hospitalist-consult Follow up with PCP, Hematology/Oncology, Neurology Possible D/C home on 02/28/19
[2019-02-24 14:33] VITALS: BMI 26.1
--- NOTE | 2019-02-24 17:31 | PCM.PN.HOSP ---
Subjective: Patient does not have any complaint. Patient muscle strength, speech and swallowing improved. Scheduled for discharge on Wednesday. Objective: General: Alert, Oriented x3, Cooperative HEENT: Atraumatic, PERRLA, EOMI, Normocephalic Neck: Supple, No JVD, Negative Carotid Bruits Lungs: Clear to auscultation, Normal air movement, No rhonchi, No wheeze, No rales Cardiovascular: Regular rate, Regular Rhythm, Normal S1, Normal S2, No murmurs Abdomen: Bowel Sounds Present, Soft, Non Tender, Non-Distended Extremities: No edema, Capillary Refill Less than 3 Seconds Skin: No rashes, No breakdown Musculoskeletal: No Tenderness to Palpation of Joints or Extremities Neurological: Cranial nerves II-XII grossly intact, Deep Tendon Reflexes 2+/4 and Symmetrical, Neuro grossly intact, Motor Exam 5/5 strength throughout, slurred speech have improved. Psych/Mental Status: Normal Affect, Appropriate Vitals/I&O's: Vital Signs Temp Pulse Resp BP Pulse Ox 97.9 F 80 18 113/57 L 97 02/24/19 08:36 02/24/19 08:36 02/24/19 08:36 02/24/19 08:36 02/24/19 08:36 Oxygen Delivery Method Room Air Weight: 149 lb 7.574 oz Body Mass Index (BMI) 26.1 Intake and Output for Last 24 Hours 02/22/19 02/23/19 02/24/19 23:59 23:59 23:59 Intake Total 600 / 600 360 / 360 Balance 600 / 600 360 / 360 Current Medications Acetaminophen (Tylenol) 650 mg PO Q6H PRN PRN PRN Reason: Mild Pain (0-3/10)/Headache Acyclovir (Zovirax) 400 mg PO BID [facility] Last Admin: 02/24/19 07:39 Dose: 400 mg Documented by: Apixaban (Eliquis) 5 mg PO BID [facility] Last Admin: 02/24/19 07:39 Dose: 5 mg Documented by: Aspirin (Aspirin, Baby) 81 mg PO DAILY@0800 [facility] Last Admin: 02/24/19 07:39 Dose: 81 mg Documented by: Atorvastatin Calcium (Lipitor) 80 mg PO QHS [facility] Last Admin: 02/23/19 22:38 Dose: 80 mg Documented by: Bisacodyl (Dulcolax) 10 mg RECTAL .PRN X 1 PRN PRN Reason: Constipation Calcium Carbonate (Os-Nils 500) 500 mg PO DAILYCM [facility] Last Admin: 02/24/19 07:39 Dose: 500 mg Documented by: Cholecalciferol (Vitamin D) 5,000 unit PO DAILY [facility] Last Admin: 02/24/19 07:39 Dose: 5,000 unit Documented by: Dexamethasone (Decadron) 40 mg PO Q7D@0800 [facility] Last Admin: 02/22/19 08:15 Dose: 40 mg Documented by: Escitalopram Oxalate (Lexapro) 10 mg PO DAILY [facility] Last Admin: 02/24/19 07:39 Dose: 10 mg Documented by: Gabapentin (Neurontin) 100 mg PO BID [facility] Last Admin: 02/24/19 07:39 Dose: 100 mg Documented by: Loperamide HCl (Imodium) 2 mg PO Q6H PRN PRN PRN Reason: Diarrhea Last Admin: 02/09/19 11:25 Dose: 2 mg Documented by: Lorazepam (Ativan) 0.5 mg PO QHS PRN PRN PRN Reason: ANXIETY/RESTLESSNESS/SLEEP Magnesium Hydroxide (Milk Of Magnesia) 30 ml PO .PRN X 1 PRN PRN Reason: Constipation Multivitamins/Minerals (Multivitamin With Minerals) 1 tablet PO DAILY@0800 [facility] Last Admin: 02/24/19 07:39 Dose: 1 tablet Documented by: Senna/Docusate Sodium (Senokot-S, Kassy-Colace) 2 tablet PO BID [facility] Last Admin: 02/24/19 07:40 Dose: Not Given Documented by: Medical Necessity - Tobacco Use Smoking Status: Never smoker Tobacco Use: Non-smoker Assessment/Plan All Active Problems (Last Reviewed 01/25/19 @ 11:59 by Anika Choudhary) Stroke (Acute) PFO (patent foramen ovale) (Ruled-out) This 73 female admitted to acute rehab after she had right ischemic MCA stroke. She was transitioned to Eliquis by neurologist after this stroke as it was thought that she has treatment failure with Xarelto. Previously, she had bilateral small ischemic stroke few months ago. She is on anticoagulation for presumed A. fib of bilateral ischemic stroke. Impressions 1. Recent right-sided ischemic MCA stroke while on Xarelto. Patient does not have facial droop. Motor strength 5/5. Patient is doing good with PT OT and speech therapy. Anticoagulation is changed to Eliquis. Echo in outside hospital revealed no PFO and bubble contrast was negative. 2. Multiple myeloma- managed by oncologist, Dr. Gómez 3. Meningioma- has had gamma knife in the past 4. Distant history of cellulitis of the BL LE's - resolved with Clindamycin 5. depression Active Medications Acetaminophen (Tylenol) 650 mg PO Q6H PRN PRN PRN Reason: Mild Pain (0-3/10)/Headache Acyclovir (Zovirax) 400 mg PO BID [facility] Last Admin: 02/24/19 07:39 Dose: 400 mg Documented by: Apixaban (Eliquis) 5 mg PO BID [facility] Last Admin: 02/24/19 07:39 Dose: 5 mg Documented by: Aspirin (Aspirin, Baby) 81 mg PO DAILY@0800 [facility] Last Admin: 02/24/19 07:39 Dose: 81 mg Documented by: Atorvastatin Calcium (Lipitor) 80 mg PO QHS [facility] Last Admin: 02/23/19 22:38 Dose: 80 mg Documented by: Bisacodyl (Dulcolax) 10 mg RECTAL .PRN X 1 PRN PRN Reason: Constipation [facility] ([facility]ils [facility]) [facility] Last Admin: 02/24/19 07:39 Dose: 500 mg Documented by: Cholecalciferol (Vitamin D) 5,000 unit PO DAILY [facility] Last Admin: 02/24/19 07:39 Dose: 5,000 unit Documented by: Dexamethasone (Decadron) 40 mg PO Q7D@0800 [facility] Last Admin: 02/22/19 08:15 Dose: 40 mg Documented by: Escitalopram Oxalate (Lexapro) 10 mg PO DAILY [facility] Last Admin: 02/24/19 07:39 Dose: 10 mg Documented by: Gabapentin (Neurontin) 100 mg PO BID [facility] Last Admin: 02/24/19 07:39 Dose: 100 mg Documented by: Loperamide HCl (Imodium) 2 mg PO Q6H PRN PRN PRN Reason: Diarrhea Last Admin: 02/09/19 11:25 Dose: 2 mg Documented by: Lorazepam (Ativan) 0.5 mg PO QHS PRN PRN PRN Reason: ANXIETY/RESTLESSNESS/SLEEP Magnesium Hydroxide (Milk Of Magnesia) 30 ml PO .PRN X 1 PRN PRN Reason: Constipation Multivitamins/Minerals (Multivitamin With Minerals) 1 tablet PO DAILY@0800 [facility] Last Admin: 02/24/19 07:39 Dose: 1 tablet Documented by: Senna/Docusate Sodium (Senokot-S, Kassy-Colace) 2 tablet PO BID [facility] Last Admin: 02/24/19 07:40 Dose: Not Given Documented by: Code Visit Inpatient E&M: 48520 Subs Hosp L2
[2019-02-24 20:09] VITALS: BP 120/64; PULSE 73; RESP 16; TEMP 36.6; O2SAT 93
[2019-02-24] MEDS: Atorvastatin Calcium 80 MG Tablet PO (20:30)
[2019-02-24 20:37] VITALS: RESP 15
[2019-02-24 22:00] VITALS: RESP 15
[2019-02-25 07:02] VITALS: BP 109/54; PULSE 75; RESP 15; TEMP 36.7; O2SAT 95
[2019-02-25] MEDS: Acyclovir 200 MG Capsule 400 MG PO ×2 (08:32→19:51)
[2019-02-25] MEDS: Calcium (Elemental) 500 MG Tablet PO (08:32)
[2019-02-25] MEDS: Aspirin 81 MG TAB.CHEW PO (08:32)
[2019-02-25] MEDS: Escitalopram Oxalate 10 MG Tablet PO (08:32)
[2019-02-25] MEDS: Gabapentin 100 MG Capsule PO ×2 (08:32→19:51)
[2019-02-25] MEDS: APIXABAN 5 MG TABLET PO ×2 (08:32→19:52)
[2019-02-25] MEDS: Multivitamins,Ther W-Minerals Tablet 1 TABLET PO (08:32)
--- NOTE | 2019-02-25 11:10 | PCM.PN.NEU ---
Subjective: No issues overnight. Care discussed with the nursing staff. - Physical Exam General: Alert HEENT: Normocephalic Neck: Supple Lungs: Normal air movement Cardiovascular: Normal S1, Normal S2 Abdomen: Bowel Sounds Present Extremities: No cyanosis Neurological: Cranial nerves II-XII grossly intact, Deep Tendon Reflexes 2+/4 and Symmetrical, Neuro grossly intact, Motor Exam 5/5 strength throughout, Muscle tone normal, Sensory exam intact to light touch and pain, Coordination normal Psych/Mental Status: Normal Affect Vital Signs Temp Pulse Resp BP Pulse Ox 98.0 F 75 15 109/54 L 95 02/25/19 07:02 02/25/19 07:02 02/25/19 07:02 02/25/19 07:02 02/25/19 07:02 Oxygen Delivery Method Room Air Weight: 67.8 kg Body Mass Index (BMI) 26.1 Intake and Output for Last 24 Hours 02/23/19 02/24/19 02/25/19 23:59 23:59 23:59 Intake Total 600 / 600 600 / 600 240 / 240 Balance 600 / 600 600 / 600 240 / 240 Medical Necessity - Tobacco Use Smoking Status: Never smoker Tobacco Use: Non-smoker Assessment/Plan All Active Problems (Last Reviewed 01/25/19 @ 11:59 by Anika Choudhary) Stroke (Acute) PFO (patent foramen ovale) (Ruled-out) 73-year-old right-handed female who is status post hospitalization for a right MCA distribution infarct with left-sided weakness and debility as noted below. She was admitted to the hospital, as below after having symptoms which have improved. She is tolerated therapy but she has not felt to be improved to the extent that she can return home and is therefore admitted to the rehab unit with a goal of restoring her previous level of functional independence. Prior to her stroke she had been diagnosed with atrial fibrillation and been placed on anticoagulation however she was on low-dose Xarelto. Per neuro consult:The patient is a 73 year old F PMH stroke, PAF on Xarelto, MDS, multiple myeloma, history of meningioma s/p gamma knife surgery 12 years ago admitted with dizziness. Per patient she started having acute onset dizziness yesterday 02/03/2019 after she woke up in the morning and had a fall. Per patient she did not lose her consciousness and denies any syncopal episode. Was later brought to the ED for further evaluation. Per patient she was admitted about a month ago at [facility] with stroke, per patient she had speech disturbances and left-sided weakness at that time which later resolved (no records available). Per patient she was on Revlimid for chemotherapy when she had the stroke following which Revlimid was discontinued and she has been started on Velcade as well as dexamethasone since then. Since this morning she also feels that there is some weakness in the left upper and lower extremities. She denies any headache, visual disturbances or speech disturbances at present, denies any sensory loss. Per patient she lives with her , denies any frequent falls, does not use any cane or walker to ambulate, and does drive, and does not need any assistance for a day-to-day activities. Per patient at [place] she was told that she had multiple strokes on both the sides of the cerebral hemisphere and later she saw Dr. Garner who per patient started her on Coumadin and it was later changed to Xarelto by her PCP Dr. Augusta Wilson. MRI brain done on admission reported to show acute right posterior frontal infarct in the right pericallosal arterial distribution, 1.9 cm extra-axial left parietal lesion probable meningioma, 5 mm left frontal extra-axial lesion possible meningioma. Plan PT for mobility OT for ADLs ST for cognition Analgesics as needed Bowel protocol Right MCA infarct on ASA, Lipitor and eliquis Multiple myeloma: Chemotherapy on hold but will continue Decadron per hematology/oncology-consult Atrial fibrillation: On Eliquis, rate controlled History of meningioma remotely status post gamma knife therapy Diarrhea resolved DVT prophylaxis on Eliquis and knee high elvira hose Fall precautions Further medical management per hospitalist recommendation Follow up with PCP, Hematology/Oncology, Neurology and neurosurgery for meningioma. possible D/C home on 02/28/19
[2019-02-25 15:44] VITALS: BMI 26.1
--- NOTE | 2019-02-25 18:06 | NURSING ---
reviewed and agree with AUDIO/VISUAL OPERATOR's FIMS and charting
[2019-02-25 19:47] VITALS: BP 129/71; PULSE 80; RESP 18; TEMP 36.4; O2SAT 94
[2019-02-25] MEDS: Atorvastatin Calcium 80 MG Tablet PO (19:52)
[2019-02-25 23:42] VITALS: BMI 26.1
[2019-02-26 07:49] VITALS: BP 131/69; PULSE 83; RESP 18; TEMP 36.9; O2SAT 94
[2019-02-26] MEDS: Escitalopram Oxalate 10 MG Tablet PO (08:29)
[2019-02-26] MEDS: APIXABAN 5 MG TABLET PO ×2 (08:29→20:06)
[2019-02-26] MEDS: Multivitamins,Ther W-Minerals Tablet 1 TABLET PO (08:29)
[2019-02-26] MEDS: Aspirin 81 MG TAB.CHEW PO (08:30)
[2019-02-26] MEDS: Gabapentin 100 MG Capsule PO ×2 (08:30→20:05)
[2019-02-26] MEDS: Acyclovir 200 MG Capsule 400 MG PO ×2 (08:30→20:06)
[2019-02-26] MEDS: Calcium (Elemental) 500 MG Tablet PO (08:30)
--- NOTE | 2019-02-26 10:15 | NURSING ---
pt ambulated throughout hallways this AM. Mod-I using cane. Tolerated well.
[2019-02-26 15:16] VITALS: BMI 26.1
--- NOTE | 2019-02-26 16:42 | PCM.PN.HOSP ---
Subjective: Patient has much improvement in muscle strength, speech. She still feels little bit problem in balance but she is improving it. She walked in front of me and had 180 degree turn without getting unsteady. Vitals/I&O's: Vital Signs Temp Pulse Resp BP Pulse Ox 98.5 F 83 18 131/69 H 94 02/26/19 07:49 02/26/19 07:49 02/26/19 07:49 02/26/19 07:49 02/26/19 07:49 Oxygen Delivery Method Room Air Weight: 149 lb 7.574 oz Body Mass Index (BMI) 26.1 Intake and Output for Last 24 Hours 02/24/19 02/25/19 02/26/19 23:59 23:59 23:59 Intake Total 600 / 600 240 / 240 Balance 600 / 600 240 / 240 General: Alert, Oriented x3, Cooperative HEENT: Atraumatic, PERRLA, EOMI, Normocephalic Neck: Supple, No JVD, Negative Carotid Bruits Lungs: Clear to auscultation, Normal air movement Cardiovascular: Regular rate, Regular Rhythm, Normal S1, Normal S2, No murmurs Abdomen: Bowel Sounds Present, Soft, Non Tender, Non-Distended Extremities: No edema, Capillary Refill Less than 3 Seconds Skin: No rashes, No breakdown Musculoskeletal: No Tenderness to Palpation of Joints or Extremities, Arthritic Changes Neurological: Cranial nerves II-XII grossly intact, Deep Tendon Reflexes 2+/4 and Symmetrical, Neuro grossly intact, Motor Exam 5/5 strength throughout Psych/Mental Status: Normal Affect, Appropriate Current Medications Acetaminophen (Tylenol) 650 mg PO Q6H PRN PRN PRN Reason: Mild Pain (0-3/10)/Headache Acyclovir (Zovirax) 400 mg PO BID [facility] Last Admin: 02/26/19 08:30 Dose: 400 mg Documented by: Apixaban (Eliquis) 5 mg PO BID [facility] Last Admin: 02/26/19 08:29 Dose: 5 mg Documented by: Aspirin (Aspirin, Baby) 81 mg PO DAILY@0800 [facility] Last Admin: 02/26/19 08:30 Dose: 81 mg Documented by: Atorvastatin Calcium (Lipitor) 80 mg PO QHS [facility] Last Admin: 02/25/19 19:52 Dose: 80 mg Documented by: Bisacodyl (Dulcolax) 10 mg RECTAL .PRN X 1 PRN PRN Reason: Constipation Calcium Carbonate (Os-Nils 500) 500 mg PO DAILYCM [facility] Last Admin: 02/26/19 08:30 Dose: 500 mg Documented by: Cholecalciferol (Vitamin D) 5,000 unit PO DAILY [facility] Last Admin: 02/26/19 08:29 Dose: 5,000 unit Documented by: Dexamethasone (Decadron) 40 mg PO Q7D@0800 [facility] Last Admin: 02/22/19 08:15 Dose: 40 mg Documented by: Escitalopram Oxalate (Lexapro) 10 mg PO DAILY [facility] Last Admin: 02/26/19 08:29 Dose: 10 mg Documented by: Gabapentin (Neurontin) 100 mg PO BID [facility] Last Admin: 02/26/19 08:30 Dose: 100 mg Documented by: Loperamide HCl (Imodium) 2 mg PO Q6H PRN PRN PRN Reason: Diarrhea Last Admin: 02/09/19 11:25 Dose: 2 mg Documented by: Lorazepam (Ativan) 0.5 mg PO QHS PRN PRN PRN Reason: ANXIETY/RESTLESSNESS/SLEEP Magnesium Hydroxide (Milk Of Magnesia) 30 ml PO .PRN X 1 PRN PRN Reason: Constipation Multivitamins/Minerals (Multivitamin With Minerals) 1 tablet PO DAILY@0800 [facility] Last Admin: 02/26/19 08:29 Dose: 1 tablet Documented by: Senna/Docusate Sodium (Senokot-S, Kassy-Colace) 2 tablet PO BID [facility] Last Admin: 02/26/19 08:30 Dose: Not Given Documented by: Medical Necessity - Tobacco Use Smoking Status: Never smoker Tobacco Use: Non-smoker Assessment/Plan All Active Problems (Last Reviewed 01/25/19 @ 11:59 by Anika Choudhary) Stroke (Acute) PFO (patent foramen ovale) (Ruled-out) This 73 female admitted to acute rehab after she had right ischemic MCA stroke. She was transitioned to Eliquis by neurologist after this stroke as it was thought that she has treatment failure with Xarelto. Previously, she had bilateral small ischemic stroke few months ago. She is on anticoagulation for presumed A. fib of bilateral ischemic stroke. Impressions 1. Recent right-sided ischemic MCA stroke while on Xarelto. Patient does not have facial droop. Motor strength 5/5. Patient is doing good with PT OT and speech therapy. Anticoagulation is changed to Eliquis. Echo in outside hospital revealed no PFO and bubble contrast was negative. Blood pressure and heart rate normal. 2. Multiple myeloma- managed by oncologist, Dr. Gómez 3. Meningioma- has had gamma knife in the past 4. Distant history of cellulitis of the BL LE's - resolved with Clindamycin 5. depression Active Medications Acetaminophen (Tylenol) 650 mg PO Q6H PRN PRN PRN Reason: Mild Pain (0-3/10)/Headache Acyclovir (Zovirax) 400 mg PO BID [facility] Last Admin: 02/26/19 08:30 Dose: 400 mg Documented by: Apixaban (Eliquis) 5 mg PO BID [facility] Last Admin: 02/26/19 08:29 Dose: 5 mg Documented by: Aspirin (Aspirin, Baby) 81 mg PO DAILY@0800 [facility] Last Admin: 02/26/19 08:30 Dose: 81 mg Documented by: Atorvastatin Calcium (Lipitor) 80 mg PO QHS [facility] Last Admin: 02/25/19 19:52 Dose: 80 mg Documented by: Bisacodyl (Dulcolax) 10 mg RECTAL .PRN X 1 PRN PRN Reason: Constipation Calcium Carbonate (Os-Nils 500) 500 mg PO DAILYCM [facility] Last Admin: 02/26/19 08:30 Dose: 500 mg Documented by: Cholecalciferol (Vitamin D) 5,000 unit PO DAILY [facility] Last Admin: 02/26/19 08:29 Dose: 5,000 unit Documented by: Dexamethasone (Decadron) 40 mg PO Q7D@0800 [facility] Last Admin: 02/22/19 08:15 Dose: 40 mg Documented by: Escitalopram Oxalate (Lexapro) 10 mg PO DAILY [facility] Last Admin: 02/26/19 08:29 Dose: 10 mg Documented by: Gabapentin (Neurontin) 100 mg PO BID [facility] Last Admin: 02/26/19 08:30 Dose: 100 mg Documented by: Loperamide HCl (Imodium) 2 mg PO Q6H PRN PRN PRN Reason: Diarrhea Last Admin: 02/09/19 11:25 Dose: 2 mg Documented by: Lorazepam (Ativan) 0.5 mg PO QHS PRN PRN PRN Reason: ANXIETY/RESTLESSNESS/SLEEP Magnesium Hydroxide (Milk Of Magnesia) 30 ml PO .PRN X 1 PRN PRN Reason: Constipation Multivitamins/Minerals (Multivitamin With Minerals) 1 tablet PO DAILY@0800 [facility] Last Admin: 02/26/19 08:29 Dose: 1 tablet Documented by: Senna/Docusate Sodium (Senokot-S, Kassy-Colace) 2 tablet PO BID [facility] Last Admin: 02/26/19 08:30 Dose: Not Given Documented by: Code Visit Inpatient E&M: 63926 Subs Hosp L2
--- NOTE | 2019-02-26 18:56 | NURSING ---
Reviewed and agree with THROUGH OPERATOR's FIMS and charting
[2019-02-26 19:57] VITALS: BP 132/63; PULSE 84; RESP 16; TEMP 36.8; O2SAT 95
[2019-02-26] MEDS: Atorvastatin Calcium 80 MG Tablet PO (20:05)
[2019-02-27 00:36] VITALS: BMI 26.1
[2019-02-27 06:06] LABS: Anion Gap 7 (5-15); BUN 25 mg/dL (7-18); BUN/Creat Ratio 31.2 RATIO (10-20); Calcium,Total 8.5 mg/dL (8.5-10.1); Chloride 107 mmol/L (98-107); EST Glomerular Filtration Rate 74 mL/min (>60); Est Glom Filt Rate - Afr Amer 90 mL/min (>60); Estimated Creatinine Clearance 51.04 ml/min; Glucose 90 mg/dL (74-106); Potassium 4.3 mmol/L (3.5-5.1); Sodium Level 142 mmol/L (136-145)
[2019-02-27 07:04] LABS: Absolute Lymphocyte Count 1.44 X10^3/ul (0.83-4.51); Absolute Neutrophil Count 4.2 X10^3/uL (2.0-7.7); Basophil# 0.02 X10^3/uL; Basophil% 0.2 % (0-1); Eosinophils% 2.3 % (0-5); Hematocrit 36.4 % (37-47); Lymphocyte # 1.44 X10^3/ul (4.0); Lymphocyte % 16.4 % (19-41); Mean Corpuscular Hgb 33.2 pg (27.0-32.0); Mean Corpuscular Volume 100.8 fL (81-99); Mean Platelet Vol. 11.2 fl (6.2-12.0); Monocyte# 2.85 X10^3/uL; Monocyte% 32.4 % (0-10); Neutrophil # 4.24 X10^3/uL (2.7-7.7); Neutrophil % 48.2 % (47-70); Platelet Count 151 K/mm3 (150-450); RBC Distribution Width SD 51.4 fl (35.1-43.9); Red Blood Count 3.61 M/mm3 (4.2-5.4); White Blood Count 8.8 K/mm3 (4.4-11.0)
[2019-02-27 07:19] LABS: Differential Indicated SCAN CRITERIA MET; POSITIVE COUNT NO; POSITIVE DIFFERENTIAL YES; POSITIVE MORPHOLOGY NO
[2019-02-27 07:33] LABS: Differential Comment SCANNED
[2019-02-27 07:36] VITALS: BP 120/64; PULSE 89; RESP 16; TEMP 36.6; O2SAT 90
[2019-02-27] MEDS: Acyclovir 200 MG Capsule 400 MG PO ×2 (08:06→20:24)
[2019-02-27] MEDS: Calcium (Elemental) 500 MG Tablet PO (08:06)
[2019-02-27] MEDS: Multivitamins,Ther W-Minerals Tablet 1 TABLET PO (08:06)
[2019-02-27] MEDS: Escitalopram Oxalate 10 MG Tablet PO (08:06)
[2019-02-27] MEDS: Aspirin 81 MG TAB.CHEW PO (08:06)
[2019-02-27] MEDS: APIXABAN 5 MG TABLET PO ×2 (08:07→20:25)
[2019-02-27] MEDS: Gabapentin 100 MG Capsule PO ×2 (08:07→20:25)
--- NOTE | 2019-02-27 09:20 | PCM.PN.NEU ---
Subjective: Team meeting held today. Per PT/OT independent with all mobility, ADLs and needs. Per ST, cognitive deficits improving. Discharge home on 02/28/19 with outpatient PT/ST. - Physical Exam General: Alert, Oriented x3, Cooperative HEENT: Atraumatic, PERRLA Oral: Moist Mucosa Neck: Supple, No JVD Lungs: Clear to auscultation, Normal air movement Cardiovascular: Regular rate, Regular Rhythm Abdomen: Bowel Sounds Present, Soft, Non Tender Extremities: No clubbing, No cyanosis, No edema Neurological: Cranial nerves II-XII grossly intact, Deep Tendon Reflexes 2+/4 and Symmetrical, Motor Exam 5/5 strength throughout Psych/Mental Status: Normal Affect, Appropriate, Alert and oriented to time, place, person, mood and affect Vital Signs Temp Pulse Resp BP Pulse Ox 98 F 89 16 120/64 90 02/27/19 07:36 02/27/19 07:36 02/27/19 07:36 02/27/19 07:36 02/27/19 07:36 Oxygen Delivery Method Room Air Weight: 67.8 kg Body Mass Index (BMI) 26.1 Intake and Output for Last 24 Hours 02/25/19 02/26/19 02/27/19 23:59 23:59 23:59 Intake Total 240 / 240 240 / 240 Balance 240 / 240 240 / 240 Laboratory Tests Past 24 Hrs 02/27/19 02/27/19 05:25 05:25 WBC 8.8 RBC 3.61 L Hgb 12.0 Hct 36.4 L MCV 100.8 H MCH 33.2 H MCHC 33.0 RDW 14.0 RDW Differential 51.4 H Plt Count 151 MPV 11.2 Immature Gran % (Auto) 0.500 Neut % (Auto) 48.2 Lymph % (Auto) 16.4 L Rhea % (Auto) 32.4 H Eos % (Auto) 2.3 Baso % (Auto) 0.2 Absolute Neuts (auto) 4.2 Absolute Lymphs (auto) 1.44 Total Counted Not Reportable Differential Comment SCANNED Sodium 142 Potassium 4.3 Chloride 107 Carbon Dioxide 28.0 Anion Gap 7 BUN 25 H Creatinine 0.80 Estim Creat Clear Calc 51.04 Est GFR (MDRD) Af Amer 90 Est GFR (MDRD) Non-Af 74 BUN/Creatinine Ratio 31.2 H Glucose 90 Calcium 8.5 Medical Necessity - Tobacco Use Smoking Status: Never smoker Tobacco Use: Non-smoker Assessment/Plan All Active Problems (Last Reviewed 01/25/19 @ 11:59 by Anika Choudhary) Stroke (Acute) PFO (patent foramen ovale) (Ruled-out) a 73-year-old right-handed female who is status post hospitalization for a right MCA distribution infarct with left-sided weakness and debility as noted below. She was admitted to the hospital, as below after having symptoms which have improved. She is tolerated therapy but she has not felt to be improved to the extent that she can return home and is therefore admitted to the rehab unit with a goal of restoring her previous level of functional independence. Prior to her stroke she had been diagnosed with atrial fibrillation and been placed on anticoagulation however she was on low-dose Xarelto. Per neuro consult:The patient is a 73 year old F PMH stroke, PAF on Xarelto, MDS, multiple myeloma, history of meningioma s/p gamma knife surgery 12 years ago admitted with dizziness. Per patient she started having acute onset dizziness yesterday 02/03/2019 after she woke up in the morning and had a fall. Per patient she did not lose her consciousness and denies any syncopal episode. Was later brought to the ED for further evaluation. Per patient she was admitted about a month ago at [facility] with stroke, per patient she had speech disturbances and left-sided weakness at that time which later resolved (no records available). Per patient she was on Revlimid for chemotherapy when she had the stroke following which Revlimid was discontinued and she has been started on Velcade as well as dexamethasone since then. Since this morning she also feels that there is some weakness in the left upper and lower extremities. She denies any headache, visual disturbances or speech disturbances at present, denies any sensory loss. Per patient she lives with her , denies any frequent falls, does not use any cane or walker to ambulate, and does drive, and does not need any assistance for a day-to-day activities. Per patient at [place] she was told that she had multiple strokes on both the sides of the cerebral hemisphere and later she saw Dr. Garner who per patient started her on Coumadin and it was later changed to Xarelto by her PCP Dr. Augusta Wilson. MRI brain done on admission reported to show acute right posterior frontal infarct in the right pericallosal arterial distribution, 1.9 cm extra-axial left parietal lesion probable meningioma, 5 mm left frontal extra-axial lesion possible meningioma. Plan PT for mobility OT for ADLs ST for cognition Analgesics as needed Bowel protocol Right MCA infarct on ASA, Lipitor and eliquis Multiple myeloma: Chemotherapy on hold but will continue Decadron per hematology/oncology-consult Atrial fibrillation: On Eliquis, rate controlled History of meningioma remotely status post gamma knife therapy, appears to be noncontributory at this point Diarrhea resolved DVT prophylaxis on Eliquis and knee high elvira hose Fall precautions Medical management per hospitalist-consult Follow up with PCP, Hematology/Oncology, Neurology. D/C home on 02/28/19 with outpatient PT/ST, set up for Driving evaluation.
--- NOTE | 2019-02-27 12:11 | CASEMGMT ---
Addendum entered by Heidi Lugo 02/27/19 15:31: Provided Medical Alert resources for pt per her request. Addendum entered by Heidi Lugo 02/27/19 12:15: PHQ-9 completed. No issues noted. Resources were declined. Original Note: Social Work IDT met with pt for Team Meeting. Pt still progressing well and ready for DC 7/2. DC needs already set up. No other issues noted. DC 7/2 home with spouse.
--- NOTE | 2019-02-27 12:35 | PCM.DC ---
- Discharge Diagnoses Reason(s) for Visit for Discharge Instructions: Debility secondary Right MCA infarct You will use the following diet at home:: Cardiac Your food should be the consistency of: Regular Your liquids should be the consistency of: Regular/Thin Discharge Activity: Return to Normal Activity, May Not Drive, May Shower Weight Bearing Status: Weight bearing as tolerated Call your doctor if you observe: Fever of 101 or Higher, Coldness, Increased Pain, Numbness or Tingling, Change in Color, Inability to urinate, Inability to have a bowel movement, Shortness of breath, Dizziness, Fainting spells, Swelling in the ankles, Chest pain, Prolonged hiccoughing, Increased palpitations (irregular heartbeat), Calf discomfort, Uncontrolled pain Additional Instructions: In addition, Written prescription for Eliquis provided to patient for mail order for 90 day supply x 3 refills. Allergies/Adverse Reactions: Allergies morphine Adverse Reaction (Severe, Verified 02/03/19 12:19) Nausea Medications to take at Discharge Dexamethasone [Decadron] 40 mg PO QWEEK 02/07/19 Acetaminophen [Tylenol Tablet] 650 mg PO Q6H PRN PRN tab 02/27/19 Acyclovir [Zovirax] 400 mg PO BID cap 02/27/19 Apixaban [Eliquis] 5 mg PO BID #60 tab 02/27/19 Aspirin [Aspirin, Baby] 81 mg PO DAILY@0800 tab.chew 02/27/19 Atorvastatin Calcium [Lipitor] 80 mg PO QHS #30 tab 02/27/19 Calcium (Elemental) [Os-Nils 500] 500 mg PO DAILYCM tab 02/27/19 Cholecalciferol (VIT D3) [Vitamin D3] 5,000 unit PO DAILY tab 02/27/19 Escitalopram Oxalate [Lexapro] 10 mg PO DAILY tab 02/27/19 Gabapentin [Neurontin] 100 mg PO BID cap 02/27/19 Multivitamins,Ther W-Minerals [Multivitamin With Minerals] 1 tab PO DAILY@0800 tab 02/27/19 The following prescriptions were given: Apixaban [Eliquis] 5 mg PO BID #60 tab Transmission Status: Received by [facility] Atorvastatin Calcium [Lipitor] 80 mg PO QHS #30 tab Transmission Status: Received by [facility] Primary Care Physician: Augusta Wilson DO [Primary Care Provider] - Test Results: Test results from this visit will be discussed in further detail at your follow-up appointment, if applicable. Please Follow Up With: Augusta Wilson D.O. When: March 13 Please Follow Up With: Moriah Mireles NP When: March 14 Please Follow Up With: Driving Evaluation When: April 07 Please Follow Up With: [facility] When: Office will call to schedule PT/ST Please Follow Up With: Oncology/Hematology When: 03/01/19 Proposed Discharge Date: 02/28/19
[2019-02-27 13:31] VITALS: BMI 26.1
[2019-02-27 19:47] VITALS: BP 128/66; PULSE 86; RESP 18; TEMP 36.6; O2SAT 94
[2019-02-27 20:22] VITALS: BMI 26.1
[2019-02-27] MEDS: Atorvastatin Calcium 80 MG Tablet PO (20:24)
[2019-02-27 22:00] VITALS: RESP 17; O2SAT 94
[2019-02-28 07:23] VITALS: BP 130/66; PULSE 87; RESP 16; TEMP 36.7; O2SAT 95
[2019-02-28] MEDS: Acyclovir 200 MG Capsule 400 MG PO (07:53)
[2019-02-28] MEDS: Aspirin 81 MG TAB.CHEW PO (07:54)
[2019-02-28] MEDS: Escitalopram Oxalate 10 MG Tablet PO (07:54)
[2019-02-28] MEDS: APIXABAN 5 MG TABLET PO (07:54)
[2019-02-28] MEDS: Gabapentin 100 MG Capsule PO (07:54)
[2019-02-28] MEDS: Calcium (Elemental) 500 MG Tablet PO (07:54)
[2019-02-28] MEDS: Multivitamins,Ther W-Minerals Tablet 1 TABLET PO (07:54)
--- NOTE | 2019-02-28 09:00 | PCM.PN.HOSP ---
Subjective: Patient is scheduled for discharge today. Vitals/I&O's: Vital Signs Temp Pulse Resp BP Pulse Ox 97.8 F 78 16 111/62 97 02/28/19 10:48 02/28/19 10:48 02/28/19 10:48 02/28/19 10:48 02/28/19 10:48 Oxygen Delivery Method Room Air Weight: 149 lb 7.574 oz Body Mass Index (BMI) 26.1 Intake and Output for Last 24 Hours 02/26/19 02/27/19 02/28/19 23:59 23:59 23:59 Intake Total 240 / 240 400 / 400 Balance 240 / 240 400 / 400 General: Alert, Oriented x3, Cooperative HEENT: Atraumatic, PERRLA, EOMI, Normocephalic Neck: Supple, No JVD, Negative Carotid Bruits Lungs: Clear to auscultation, Normal air movement, No rhonchi, No wheeze, No rales Cardiovascular: Regular rate, Regular Rhythm, Normal S1, Normal S2, No murmurs Abdomen: Bowel Sounds Present, Soft, Non Tender, Non-Distended Extremities: No edema, Capillary Refill Less than 3 Seconds Skin: No rashes, No breakdown Musculoskeletal: No Tenderness to Palpation of Joints or Extremities, Arthritic Changes Neurological: Cranial nerves II-XII grossly intact, Deep Tendon Reflexes 2+/4 and Symmetrical, Neuro grossly intact, Motor Exam 5/5 strength throughout, - - The patient has recovered from stroke well. Psych/Mental Status: Normal Affect, Appropriate Medical Necessity - Tobacco Use Smoking Status: Never smoker Tobacco Use: Non-smoker Assessment/Plan All Active Problems (Last Reviewed 01/25/19 @ 11:59 by Anika Choudhary) Stroke (Acute) PFO (patent foramen ovale) (Ruled-out) This 73 female admitted to acute rehab after she had right ischemic MCA stroke. She was transitioned to Eliquis by neurologist after this stroke as it was thought that she has treatment failure with Xarelto. Previously, she had bilateral small ischemic stroke few months ago. She is on anticoagulation for presumed A. fib of bilateral ischemic stroke. Impressions 1. Recent right-sided ischemic MCA stroke while on Xarelto. Patient does not have facial droop. Motor strength 5/5. Patient is doing good with PT OT and speech therapy. Anticoagulation is changed to Eliquis. Echo in outside hospital revealed no PFO and bubble contrast was negative. Blood pressure and heart rate normal. The patient is discharged on baby aspirin and Eliquis. 2. Multiple myeloma- managed by oncologist, Dr. Gómez 3. Meningioma- has had gamma knife in the past 4. Distant history of cellulitis of the BL LE's - resolved with Clindamycin 5. depression Patient is medically stable. Discharged from acute rehab. Code Visit Inpatient E&M: 67381 Subs Hosp L2
--- NOTE | 2019-02-28 09:30 | DS.PCM_ITS ---
Rehab Discharge Summary DATE OF ADMISSION: 02/07/19 DATE OF DISCHARGE: 02/28/2019 - Rehab Diagnosis Debility secondary to Right MCA distribution Subjective: Per nursing no issues overnight. Patient denies RUIZ, blurred or double vision, dizziness or lightheadedness. Patient is independent with all needs and transfers. Per patient, ready to be discharged home today. - Physical Exam General: Alert, Oriented x3, Cooperative HEENT: Atraumatic, PERRLA Oral: Moist Mucosa Neck: Supple, No JVD Lungs: Clear to auscultation, Normal air movement Cardiovascular: Regular rate, Regular Rhythm Abdomen: Bowel Sounds Present, Soft, Non Tender Extremities: No clubbing, No cyanosis, No edema Neurological: Cranial nerves II-XII grossly intact, Deep Tendon Reflexes 2+/4 and Symmetrical, Motor Exam 5/5 strength throughout Psych/Mental Status: Normal Affect, Appropriate, Alert and oriented to time, place, person, mood and affect Vital Signs Temp Pulse Resp BP Pulse Ox 98.1 F 87 16 130/66 H 95 02/28/19 07:23 02/28/19 07:23 02/28/19 07:23 02/28/19 07:23 02/28/19 07:23 Oxygen Delivery Method Room Air Weight: 67.8 kg Body Mass Index (BMI) 26.1 Intake and Output for Last 24 Hours 02/26/19 02/27/19 02/28/19 23:59 23:59 23:59 Intake Total 240 / 240 400 / 400 Balance 240 / 240 400 / 400 Discharge Diet: Low fat/ Low Cholesterol Discharge Activity: Return to Normal Activity, May Not Drive, May Shower Weight Bearing Status: Weight bearing as tolerated Call your doctor if you observe: Fever of 101 or Higher, Coldness, Increased Pain, Numbness or Tingling, Change in Color, Inability to urinate, Inability to have a bowel movement, Shortness of breath, Dizziness, Fainting spells, Swelling in the ankles, Chest pain, Prolonged hiccoughing, Increased palpitations (irregular heartbeat), Calf discomfort, Uncontrolled pain Home Medications: Medications to take at Discharge Dexamethasone [Decadron] 40 mg PO QWEEK 02/07/19 Acetaminophen [Tylenol Tablet] 650 mg PO Q6H PRN PRN tab 02/27/19 Acyclovir [Zovirax] 400 mg PO BID cap 02/27/19 Apixaban [Eliquis] 5 mg PO BID #60 tab 02/27/19 Aspirin [Aspirin, Baby] 81 mg PO DAILY@0800 tab.chew 02/27/19 Atorvastatin Calcium [Lipitor] 80 mg PO QHS #30 tab 02/27/19 Calcium (Elemental) [Os-Nils 500] 500 mg PO DAILYCM tab 02/27/19 Cholecalciferol (VIT D3) [Vitamin D3] 5,000 unit PO DAILY tab 02/27/19 Escitalopram Oxalate [Lexapro] 10 mg PO DAILY tab 02/27/19 Gabapentin [Neurontin] 100 mg PO BID cap 02/27/19 Multivitamins,Ther W-Minerals [Multivitamin With Minerals] 1 tab PO DAILY@0800 tab 02/27/19 Following Prescrptions Were Given to Patient: Apixaban [Eliquis] 5 mg PO BID #60 tab Transmission Status: Received by [facility] Atorvastatin Calcium [Lipitor] 80 mg PO QHS #30 tab Transmission Status: Received by [facility] Primary Care Physician: Augusta Wilson DO [Primary Care Provider] - Please Follow Up With: Augusta Wilson D.O. 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 She was admitted to the hospital, as below after having symptoms which have improved. She is tolerated therapy but she has not felt to be improved to the extent that she can return home and is therefore admitted to the rehab unit with a goal of restoring her previous level of functional independence. Prior to her stroke she had been diagnosed with atrial fibrillation and been placed on anticoagulation however she was on low-dose Xarelto. Per neuro consult:The patient is a 73 year old F PMH stroke, PAF on Xarelto, MDS, multiple myeloma, history of meningioma s/p gamma knife surgery 12 years ago admitted with dizzin ess. Per patient she started having acute onset dizziness yesterday 02/03/2019 after she woke up in the morning and had a fall. Per patient she did not lose her consciousness and denies any syncopal episode. Was later brought to the ED for further evaluation. Per patient she was admitted about a month ago at [facility] with stroke, per patient she had speech disturbances and left- sided weakness at that time which later resolved (no records available). Per patient she was on Revlimid for chemotherapy when she had the stroke following which Revlimid was discontinued and she has been started on Velcade as well as dexamethasone since then. Since this morning she also feels that there is some weakness in the left upper and lower extremities. She denies any headache, visual disturbances or speech disturbances at present, denies any sensory loss. Per patient she lives with her , denies any frequent falls, does not use any cane or walker to ambulate, and does drive, and does not need any assistance for a day-to-day activities. Per patient at [place] [facility] she was told that she had multiple strokes on both the sides of the cerebral hemisphere and later she saw Dr. Garner who per patient started her on Coumadin and it was later changed to Xarelto by her PCP Dr. Augusta Wilson. MRI brain done on admission reported to show acute right posterior frontal infarct in the right pericallosal arterial distribution, 1.9 cm extra-axial left parietal lesion probable meningioma, 5 mm left frontal extra-axial lesion possible meningioma. Rehab course was uncomplicated. Patient is now on Eliquis for Atrial fibrillation. Dr. Gómez was consulted for direction for multiple myeloma and saw patient on 02/08/2019, according to his consult note minimize bone marrow toxicity we will hold Velcade but continue weekly Decadron (40 mg every Wednesday a.m.). Continue acyclovir for shingles prophylaxis. Decadron was given last on 02/22/2019 in rehab. Patient has increased in strength and mobility and will be discharged home on 02/28/2019 with out patient PT and ST. Patient to F/U with PCP, Hematology/Oncology, and Neurology. Patient is scheduled for driving evaluation on 04/07/2019. Meaningful Use Info Meaningful Use Diagnoses (Choose all that apply): Ischemic CVA - CVA Therapy Assessed for PT,OT and/or ST?: Yes - Ischemic Stroke Antithrombotic order at d/c?: Yes Dx of Atrial fib/flutter?: Yes Anticoagulant at discharge?: Yes Statins at discharge?: Yes Primary Dx Acute Ischemic CVA?: Yes IV tPA ordered during stay?: No Reason IV t-PA not ordered: Treatment not Indicated
--- NOTE | 2019-02-28 09:40 | NURSING ---
discharged home with spouse. discharged instruction and medications reviewed. denies questions or concerns
[2019-02-28 10:48] VITALS: BP 111/62; PULSE 78; RESP 16; TEMP 36.6; O2SAT 97
[2019-02-28 11:25] VITALS: BMI 26.1
== END 2019-02-28 09:40 | disposition home or self-care (01) | DRG 57 ==
PROVIDERS: Internal Medicine; Admitting Provider Psychiatry & Neurology Neurology; Family Provider Family Medicine; PCP Family Medicine; Visit Provider Internal Medicine
DX: I69.354 Hemiplegia and hemiparesis following cerebral infarction affecting left non-dominant side (principal); C90.01 Multiple myeloma in remission; L03.115 Cellulitis of right lower limb; I48.0 Paroxysmal atrial fibrillation; Z86.011 Personal history of benign neoplasm of the brain; Z79.01 Long term (current) use of anticoagulants; R91.1 Solitary pulmonary nodule; D46.20 Refractory anemia with excess of blasts, unspecified; F32.9 Major depressive disorder, single episode, unspecified; K76.9 Liver disease, unspecified; I69.398 Other sequelae of cerebral infarction; H53.8 Other visual disturbances; I69.328 Other speech and language deficits following cerebral infarction
CPT/HCPCS: 36415; 80048; 85025; 92507; 92523; 92610; 97110; 97112; 97116; 97162; 97166; 97530; 97535

== ENCOUNTER → 2019-03-15 15:57 | Outpatient (CLI) | payer MEDICARE, OTHER, SELFPAY ==
[2019-03-08 11:20] VITALS: BMI 26.7
[2019-03-15 14:34] VITALS: BMI 26.9
--- NOTE | 2019-03-15 16:09 | CT_ITS ---
STUDY: CT BRAIN WITHOUT CONTRAST REASON FOR EXAM: Female, 73 years old. Headache. RADIATION DOSAGE (If Supplied By Facility): CTDIvol = ( 44.99 ) mGy, DLP = ( 796.11 ) mGycm TECHNIQUE: Transaxial CT imaging of the brain was performed without administration of intravenous contrast material. Individualized dose optimization techniques were used for this CT. COMPARISON: 02/04/2019 FINDINGS: There is an old left posterior parietal infarct with encephalomalacia. There is no acute bleed or infarct. There are stable chronic ischemic and atrophic changes. There are stable meningiomas in the left cerebral hemisphere, measuring 1.9 cm in the parietal region and 6 mm in the frontal region. The ventricles are normal in configuration. There is no hydrocephalus. The visualized paranasal sinuses are clear. The mastoid air cells are well aerated. There is no skull fracture. CT/Brain/Head without Contrast IMPRESSION: Stable chronic ischemic and atrophic changes. No acute intracranial abnormality. Stable old left posterior parietal infarct. Stable meningiomas in the left cerebral hemisphere. Electronically Signed: Chidi Rodriguez, at 16:29 EDT Tel , Service support ,
== END ==
PROVIDERS: Family Provider Family Medicine; PCP Family Medicine; Referring Provider Nurse Practitioner Family; Visit Provider Nurse Practitioner Family
DX: R51 Headache (principal); Z86.73 Personal history of transient ischemic attack (TIA), and cerebral infarction without residual deficits; C90.00 Multiple myeloma not having achieved remission
CPT/HCPCS: 36415; 70450; 85025; 96401; J9041

== ENCOUNTER 2019-05-20 10:48 | Emergency (ER) | payer MEDICARE, OTHER, SELFPAY ==
[2019-05-17 14:41] VITALS: BMI 26.7
[2019-05-20] VITALS (10 sets, daily range): BP systolic 90–154; BP diastolic 51–138; PULSE 56–104; RESP 11–18; TEMP 36.7; O2SAT 94–99; BMI 26.6
--- NOTE | 2019-05-20 10:52 | CT_ITS ---
STUDY: CTA HEAD AND NECK WITH CONTRAST REASON FOR EXAM: Female, 74 years old. Stroke, trouble with speech earlier, now resolved. Hx CVA, multiple myeloma, left cerebral meningioma with gamma treatment, MDS.. RADIATION DOSAGE (If Supplied By Facility): CTDIvol = ( 23.15 ) mGy, DLP = ( 693.49 ) mGycm TECHNIQUE: CT angiography was performed with a multi-detector CT scanner. Data acquisition was obtained from the skull base through the vertex following intravenous administration of 100mL IV Isovue 370. MIP images were reconstructed from the axial data set. Post-processing of the angiographic images was performed, with multiplanar reformation and 3D reconstruction. Individualized dose optimization techniques were used for this CT. COMPARISON: No relevant priors. FINDINGS: Normal bilateral petrous carotid arteries. Normal right cavernous carotid artery with a normal supraclinoid bifurcation. Normal left cavernous carotid artery with a normal supraclinoid bifurcation. Normal right A1 segments of the anterior cerebral artery. Normal left A1 segments of the anterior cerebral artery. Normal intact anterior communicating artery (ACOM). Normal bilateral A2 segments of the anterior cerebral arteries. Normal right M1 and M2 segments of the middle cerebral arteries, with a normal M1 bifurcation. Normal left M1 and M2 segments of the middle cerebral arteries, with a normal M1 bifurcation. Normal right posterior communicating artery (PCOM). Normal left posterior communicating artery (PCOM). Normal bilateral vertebral arteries. Normal basilar artery with a normal basilar bifurcation. The visualized bilateral superior cerebellar (SCA) arteries are normal. Normal bilateral P1, P2 and visualized P3 segments of the posterior cerebral arteries. There is no demonstrated aneurysm of the [place] of [place]. There is no demonstrated abnormality of the visualized brain. AORTIC ARCH: There is mild atherosclerotic plaque of the aortic arch RIGHT CAROTID ARTERIES: Normal right common carotid artery (CCA). There is mild atherosclerotic plaque formation with minimal narrowing of the right carotid bulb. There is mild atherosclerotic plaque formation of the origin of the right internal carotid artery with less than 50% cross sectional diameter stenosis. Normal visualized cervical portion of the right internal carotid artery. Normal origin of the right external carotid artery (ECA). LEFT CAROTID ARTERIES: Normal left common carotid artery (CCA). Normal left common carotid bulb. Normal origin of the left internal carotid (ICA) artery without a hemodynamically significant stenosis. Normal visualized cervical portion of the left internal carotid artery. Normal origin of the left external carotid artery (ECA). VERTEBRAL ARTERIES: Normal bilateral vertebral arteries. CT/CTA Head AND Neck W/ Contrast IMPRESSION: No occlusion or significant stenosis. Mild atherosclerotic plaque. Electronically Signed: Mckenzie Fernandez MD at 11:39 EDT Tel , Service support ,
--- NOTE | 2019-05-20 10:52 | CT_ITS ---
We are attempting to reach an attending provider to discuss findings. An addendum with communication details will be sent when the communication is complete. STUDY: CT BRAIN WITHOUT CONTRAST REASON FOR EXAM: Female, 74 years old. Stroke, trouble with speech earlier, now resolved. Hx CVA, multiple myeloma, left cerebral meningioma with gamma treatment, MDS. RADIATION DOSAGE (If Supplied By Facility): CTDIvol = ( 44.99 ) mGy, DLP = ( 796.11 ) mGycm TECHNIQUE: Transaxial CT imaging of the brain was performed without administration of intravenous contrast material. Individualized dose optimization techniques were used for this CT. COMPARISON: March 15, 2018 FINDINGS: There is cerebral atrophy with widening of the extra-axial spaces and ventricular dilatation. There are areas of decreased attenuation within the white matter tracts of the supratentorial brain, consistent with microvascular disease changes. Again noted is a small area of left parietal encephalomalacia, consistent with prior insult. Again noted is the left parasagittal hyperdense lesion, stable since the prior examination and consistent with meningioma. There is no intracranial hemorrhage. There are no findings of an acute ischemic infarction. Normal soft tissue structures. Normal visualized paranasal sinuses. CT/Brain/Head without Contrast IMPRESSION: No acute intracranial abnormality. Stable left meningioma. Electronically Signed: Mckenzie Fernandez MD at 11:27 EDT Tel , Service support ,
--- NOTE | 2019-05-20 10:52 | EKG12_ITS ---
Test Reason : STROKETEAM Blood Pressure : / mmHG Vent. Rate : 064 BPM Atrial Rate : 064 BPM P-R Int : 156 ms QRS Dur : 080 ms QT Int : 410 ms P-R-T Axes : 022 029 035 degrees QTc Int : 422 ms Normal sinus rhythm Normal ECG Confirmed by KASSANDRA GARNICA, CHRIS ([id number]), editor newspaper TIMMY VALENZUELA ([id number]) on 05/22/2019 8:59:56 AM Referred By: CHANCE Confirmed By:CHRIS CANNON MD
--- NOTE | 2019-05-20 10:56 | ED.RN ---
JUDIT LOZANO,RN WAS STARTING IV AND PT WAS ABLE TO FINALLY SPEAK AND SAID OUCH PT THEN SMILED. PT WAS UNABLE TO COMMUNICATE WITH STAFF PRIOR.
[2019-05-20 11:13] LABS: International Normalized Ratio 1.2; Prothrombin Time (Protime)PT. 15.1 SECONDS (11.7-14.9)
[2019-05-20 11:14] LABS: Partial Thromboplast Time 34.5 Seconds (24.1-36.2)
--- NOTE | 2019-05-20 11:25 | RAD_ITS ---
STUDY: X-RAY CHEST REASON FOR EXAM: Female, 74 years old. Prior stroke TECHNIQUE: Single AP portable view of the chest. COMPARISON: 02/03/2019 FINDINGS: Mildly elevated right hemidiaphragm The lungs are clear and expanded. There is no demonstrated pleural abnormality. Normal size heart. Normal mediastinum and shashi. Normal visualized pulmonary arteries. Normal visualized aortic arch and descending thoracic aorta. Normal visualized thoracic spine. Normal visualized ribs, clavicles, and shoulders. There is no demonstrated abnormality of the visualized soft tissue structures of the upper abdomen. RAD/Chest 1 View IMPRESSION: Normal x-ray examination of the chest. Electronically Signed: Scott Linder DO at 12:07 EDT Tel , Service support ,
--- NOTE | 2019-05-20 11:26 | ED.RN ---
RADIOLOGY REPORT CALLED IN, DR MIGUEL A REPORT TAKEN BY THIS NURSE. PER RADIOLOGIST NO HEMORRHAGE, STABLE MENINGIOMA PER PREVIOUS STUDY. DR. KATHLEEN MADE AWARE. NO FURTHER ORDERS AT THIS TIME. PT HAS NO CURRENT NEEDS AND IS RESTING COMFORTABLY.
[2019-05-20 11:29] LABS: Anion Gap 3 (5-15); BUN 22 mg/dL (7-18); BUN/Creat Ratio 20.6 RATIO (10-20); Chloride 106 mmol/L (98-107); Creatinine, Serum 1.07 mg/dL (0.55-1.02); EST Glomerular Filtration Rate 53 mL/min (>60); Est Glom Filt Rate - Afr Amer 64 mL/min (>60); Estimated Creatinine Clearance 39.23 ml/min; Glucose 94 mg/dL (74-106); Sodium Level 139 mmol/L (136-145)
[2019-05-20 11:35] LABS: Bedside Glucose 101 mg/dL (70-110)
--- NOTE | 2019-05-20 13:22 | ED.VISSUMM ---
- ER Visit Summary Date of Service: 05/20/19 Chief Complaint: Stroke History of Present Illness: The patient is a 74 F who presents the emergency department via EMS after found her to be a phasic. He tells me that the patient has had several strokes in the past one being the spring. She is found to have a patent foramen ovale. She is currently on Eliquis and her last dose was at 930 this morning. He tells me that 20 to 30 hours last night they went to bed. He came downstairs around 05/08/1930 and tried to speak with her. She was not speaking and felt something may be wrong. He gave her medications which she took. She did not have any coughing. She is been able to walk and use her arms and legs. She has been unable to speak. Physical Examination: Afebrile vital signs are stable Gen: Well-nourished well-developed Head: Normocephalic atraumatic Eyes: Perrl EOMI ENT: TMs clear no rhinorrhea moist mucous membranes Neck: Supple no lymphadenopathy no JVD nontender CVS: Regular rate rhythm no murmurs normal S1-S2 Respiratory: No distress clear to auscultation bilaterally chest nontender Abdomen: Soft nontender nondistended normal bowel sounds no masses Back: Nontender Extremity: Nontender no edema Skin: Normal color no rash Neuro: alert NIH of 7 please see further documentation in the computer Test Results: Head CT negative CTA head neck negative chest x-ray negative. EKG sinus at rate of 64 basic labs were obtained and negative blood sugar 94 Emergency Department Course and Treatment: Patient was initially made a stroke team as I could speak with her . She is not a TPA candidate. I spoke with [facility] neurology the patient will be transferred there for further care. As her time the emergency department has continued she has been able to say more words still is having quite difficulty expressing herself. Impression: 1. Acute ischemic stroke 2. Critical care time 35 minutes This note was generated with [employer] dictation software. It may contain incorrect words, spelling, and punctuation that were not noted in review of the chart prior to signing ED Disposition - Plan for ED Patient: Disposition: Home or Assisted Living Instructions: Esophagitis Referrals: Augusta Wilson, [Primary Care Provider] - As soon as possible Additional Instructions: I would recommend discontinuing your Medrol.
--- NOTE | 2019-05-20 13:44 | ED.RN ---
REPORT TO [facility]. PT SKIN P/W/D, RESP EVEN AND UNLABORED, PT A&O X 3, NO DISTRESS NOTED. PT OUT OF ED WITH [facility] FOR TRANSPORT TO [facility] ED.
[2019-05-20 14:38] LABS: Absolute Lymphocyte Count 0.78 X10^3/uL (0.83-4.51); Basophil# 0.02 X10^3/uL; Basophil% 0.4 % (0-1); Eosinophil# 0.07 X10^3/uL; Eosinophils% 1.5 % (0-5); Hematocrit 39.9 % (37-47); Hemoglobin 13.3 g/dL (12.0-15.0); Lymphocyte # 0.78 X10^3/ul (4.0); Lymphocyte % 16.4 % (19-41); Mean Corp Hgb Conc 33.3 g/dL (32-36); Mean Corpuscular Hgb 34.2 pg (27.0-32.0); Mean Corpuscular Volume 102.6 fL (81-99); Mean Platelet Vol. 13.2 fl (6.2-12.0); Monocyte# 1.81 X10^3/uL; Monocyte% 38.1 % (0-10); NRBC Flagged by Analyzer 0 % (0-5); Neutrophil # 1.97 X10^3/uL (2.7-7.7); Neutrophil % 41.5 % (47-70); POSITIVE DIFFERENTIAL YES; Platelet Count 62 K/mm3 (150-450); RBC Distribution Width CV 13.4 % (11.6-14.6); RBC Distribution Width SD 50.7 fl (35.1-43.9); Red Blood Count 3.89 M/mm3 (4.2-5.4); White Blood Count 4.8 K/mm3 (4.4-11.0)
[2019-05-20 14:39] LABS: Differential Indicated SCAN CRITERIA MET
== END 2019-05-20 13:46 | disposition home or self-care (01) ==
PROVIDERS: Emergency Provider Emergency Medicine; Family Provider Family Medicine; PCP Family Medicine
DX: I63.9 Cerebral infarction, unspecified (principal); R47.01 Aphasia; Q21.1 Atrial septal defect; Z79.01 Long term (current) use of anticoagulants; Z79.899 Other long term (current) drug therapy; Z86.73 Personal history of transient ischemic attack (TIA), and cerebral infarction without residual deficits
CPT/HCPCS: 70450; 70496; 70498; 71045; 80048; 82962; 84484; 85025; 85610; 85730; 93005; 99285; Q9967; A4216

== ENCOUNTER 2019-06-01 10:30 | Outpatient (RCR) | payer MEDICARE, OTHER, SELFPAY ==
[2019-03-08 11:20] VITALS: BMI 26.7
[2019-03-15 14:34] VITALS: BMI 26.9
--- NOTE | 2019-03-20 08:48 | HP.PTEVAL_ITS ---
Patient's Visit Information RADHA SPENCER is a 73 year old F referred to Physical Therapy by Bandar Garner MD with a diagnosis of CVA with L sided weakness. Date of Evaluation: 03/17/19 Physical Therapist: Rusty Carl DPT - Visit Plan Frequency: 2-3x /Week Duration: 4-6 Weeks Plan: Start with core and LLE strengthening, add in static and dynamic balance activities. Progress functional strengthening and HEP as able. - Subjective Findings: Pt. is here today for her initial evaluation after having a CVA with L sided weakness. Pt. suffered at [facility] CVA on 02/03 with subsequent L sided weakenss. Pt. also has multiple myeloma and is recieving treatments for this as well. Pt. was on TCU and acute rehab for a total of 4 weeks. Pt. is now back home, but is having difficulty with walking unassisted, balance an has a feeling of LLE weakness. Pt. reports no vision issues, no headaches or dizziness. Pt. reports doing some light exercises for LE strength at home, but has been mostly focusing on walking. Pt. is hopeful to get back to prior level of function, including walking without AD. - Objective POSTURE: Pt. has good posture in stance, tends to use cane to stabilize, but is able to stand without. PALPATION: Pt. has normal senation to light and sharp touch of bLEs, but reports numb feeling in LLE. NEURO: hyper reflexive patella bilat 3+. ROM: pt. has normal ROM of bilateral LEs without increase in symptoms. MMT: RLE- 4+/5 throughout; LLE- ankle 4+/5 throughout except 4/5 DF; knee- ext 4/5, flexion 4/5; hip- flexion 4/5, abd 4/5, ext 4/5. Core strength- poor+. GAIT: Pt. ambulates with cane in R hand with good stability, but is methodical about pattern and gaureded. Pt. is able to ambulate without AD, but becomes more gaurded and has slower tempo. STAIRS: uses 2 HR to complete or 1 with hand over hand techniques. - Balance Scores Functional Gait Assessment Score: 19 % Disability: 36.6700 - Goals Goal 1:: Pt. to be I with HEP. Goal Time Frame: 4-6 Weeks Goal 2:: Pt. to have increased LLE strength increased by 1/2 grade of all effected musculature. Goal Time Frame: 4-6 Weeks Goal 3:: Pt. to ambulate with least restrictive devices with normalizwed gait pa ttern for unlimited distances. Goal Time Frame: 4-6 Weeks Goal 4:: Pt. to negotiate stairs with 1 HR with recripocal pattern. Goal Time Frame: 4-6 Weeks Goal 5:: Pt. to have increased FGA to 25/30 indicating reduced risk for future falls. - Rehabilitation Potential Physical Therapy Diagnosis: Pt. has signs and symptoms consistent with CVA with L sided weakness. Pt.. would benefit from PT to increase LLE/core strength, increase stability with balance and gait. Rehabilitation Potential: Excellent - Anticipated Interventions Patient/Client Instruction: Educate patient on: Condition, Plan of Care, Risk Factors, Benefits of Fitness Program For the Purpose of:: To facilitate caregiver knowledge, To improve self management, To prevent re-injury, To improve ability to perform tasks related to life management, To improve tolerance to ADL's Therapeutic Exercise to Include: Strength training, Power training, Balance training, Coordination, Body mechanics, Postural training, Flexibilty training, Gait and locomotor training, Passive ROM, Active ROM, Dynamic Lumbar Stabilization For the Purpose of:: To improve muscle performance and motor function, To improve ability to perform ADL's, To increase tolerance to activity/condition/position, To improve ability of physical actions for home/community/work/leisure, To improve gait and locomotor functions, To improve health of tissue, To decrease soft tissue restriction, To increase flexibility/ROM, To improve endurance, To improve balance, To improve safety with gait Thank you for the opportunity to evaluate your patient. For Medicare and Medicare HMO plans, please review the plan of care and approve it. It will need to be FAXED BACK to us at [phone] for Medicare purposes. For Medicare only, by signing this I certify the plan of care. Please let me know if there are questions or concerns regarding this plan of care. Physician Signature: Date:
--- NOTE | 2019-05-16 15:26 | HP.PTREVAL ---
Bandar Garner MD, It has been my pleasure to treat RADHA SPENCER over the last 9 visits for CVA with L sided weakness. Please see the progress note below for an update on the physical therapy plan of care! Subjective: Pt. reports I just don't feel like I am getting any stronger now. Pt. reporst being 50% better overall. Objective/Function: ROM: pt. has good ROM throughout BLEs. MMT: Pt. has 5-/5 strength throughout bilateral LEs and core. 5 min. walk test- Pt. ambulated 1300ft. without AD, but required frequent rest periods. Stairs: Pt. is able to negotiate steps with reciprocal pattern with use of occassional 1 HR. PT. reports overall still feeling weak. But after talking with her the weakness she is describing is more of a fatigue issue than a strength issue. FGA Plan Plan: Cont. with POC. Focus on increased endurance and higher level strengthening exercises. Goals Goal 1:: Pt. to be I with HEP. Goal Time Frame: 4-6 Weeks Goal 2:: Pt. to have increased LLE strength increased by 1/2 grade of all effected musculature. Goal Time Frame: 4-6 Weeks Goal Progress: Goal Met Goal 3:: Pt. to ambulate with least restrictive devices with normalizwed gait pattern for unlimited distances. Goal Time Frame: 4-6 Weeks Goal Progress: Progressing Goal 4:: Pt. to negotiate stairs with 1 HR with recripocal pattern. Goal Time Frame: 4-6 Weeks Goal Progress: Goal Met Goal 5:: Pt. to have increased FGA to 25/30 indicating reduced risk for future falls. Goal Progress: Progressing Goal 6:: Pt. to ambulat 1600 feet in with a 6MW test. Anticipated Interventions Patient/Client Instruction: Educate patient on: Condition, Plan of Care, Risk Factors, Benefits of Fitness Program For the Purpose of:: To facilitate caregiver knowledge, To improve self management, To prevent re-injury, To improve ability to perform tasks related to life management, To improve tolerance to ADL's Therapeutic Exercise to Include: Strength training, Power training, Balance training, Coordination, Body mechanics, Postural training, Flexibilty training, Gait and locomotor training, Passive ROM, Active ROM, Dynamic Lumbar Stabilization For the Purpose of:: To improve muscle performance and motor function, To improve ability to perform ADL's, To increase tolerance to activity/condition/position, To improve ability of physical actions for home/community/work/leisure, To improve gait and locomotor functions, To improve health of tissue, To decrease soft tissue restriction, To increase flexibility/ROM, To improve endurance, To improve balance, To improve safety with gait Please do not hesitate to contact me at [phone] by phone or if you have questions or concerns regarding this new plan of care! Sincerely, LADAN GilliamT
== END 2019-06-01 19:00 | disposition home or self-care (01) ==
LOC: PT 10:30
PROVIDERS: Family Provider Family Medicine; PCP Family Medicine; Referring Provider Psychiatry & Neurology Neurology; Visit Provider Psychiatry & Neurology Neurology
DX: R41.841 Cognitive communication deficit (principal); Z86.73 Personal history of transient ischemic attack (TIA), and cerebral infarction without residual deficits
CPT/HCPCS: 97110; 97116; 97161; 97530

== ENCOUNTER 2019-06-07 12:00 | Outpatient (RCR) | payer MEDICARE, OTHER, SELFPAY ==
[2019-04-19 11:53] VITALS: BMI 27.1
--- NOTE | 2019-04-26 15:00 | SOAP_ITS ---
REASON FOR REFERRAL: The Patient is a 74 year old female referred for clinical assessment of the patients cognitive communication abilities at [facility] on 04/26/2019 due to persistent cognitive based deficits following a recent (02/03/2019) acute right middle cerebrovascular accident, with multiple prior / recent cerebrovascular accident(s), prior meningioma?s, and iatrogenic factors (currently undergoing systemic chemotherapy). The Patient is well known to this clinician from prior intervention cycles. She reports feeling distraught about inability to drive after failing a recent driving assessment, stating concern that the testing procedures where not explained well, and feels concern that she will not be able to assist , particularly when considering his upcoming medical appointments. Despite this, she reports she has driven a few times (her family is very against this). Her was additionally present, with both reporting continued dyscalculia most pronounced during higher level tasks (managing checkbook). She states on multiple occasions that she does not feel as though she has progressed, at times becoming tearful, as she feels she has plateaued cognitively and physically. She reports difficulty walking up and down stairs, knowing she isn?t supposed to do this, though does anyways, as she feels devalued following the stroke; she reports doing so by holding onto hand rails going up, while her brings up the laundry. She reports continuing to feel ?shaky?, reporting continued tremors with action. She mentions on multiple occasions that it has still been very difficult initiating tasks, and has noted to have significant difficulty with tasks requiring cognitive shifting. Both her hand her report that she seems to be able to catch herself when she goes to make a mistake, though cannot execute the change that is needed once the mistaken behavior is identified. Her states suspicion for and anxiety and depression component, though at this time the Patient does not feel as though this is a major complicating factor. 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 MEDICAL HISTORY: Prior cerebrovascular accident(s) involving the left posterior parietal lobe (2019), multiple meningioma(s) involving the left parietal and left frontal regions status post gamma knife therapy (1999), multiple myeloma currently receiving systemic chemotherapy (vRD 28 day cycle; Velcade and Dexamethasone 3/4 week cycle; Revlimid 2 week on/off), residual cognitive dysfunction, low grade myelodysplastic syndrome, left upper lung nodule (2018), right lobe liver lesion s/p biopsy (2017), macrocytosis, anemia, tremor. ADDITIONAL OBJECTIVE ASSESSMENT RESULTS: 02/03/2019 CT revealed a stable examination; 1.9 cm x 1.2 cm slightly hypodense well-defined nodule along the posterior aspect of the left parietal lobe adjacent to the falx most likely represents a known meningioma; no evidence of intracranial hemorrhage. 02/03/2019 MRI revealed an acute right posterior frontal infarct in the right pericallosal arterial distribution; probable meningioma(s) involving the left parietal and left frontal regions. 02/04/2019 MRI revealed 2 left-sided meningioma(s) involving the left posterior falx (19 x 15 x 21 mm) and left frontal convexity (9 x 7 x 6 mm). 02/04/2019 CT revealed no acute findings; acute infarct previously reported by MRI is not demonstrable on CT scan; stable meningioma(s). 03/15/2019 CT revealed stable chronic ischemic and atrophic changes; old left posterior parietal infarct with encephalomalacia; stable meningioma(s) in the left parietal region (1.9cm) and left frontal region (6mm) FUNCTIONAL STATUS ASSESSMENT RESULTS: Functional Ambulation Category (FAC): 4 (ambulatory ? independent level surfaces only) Wylie Index of [place] in Activities of Daily Livin/6 Bathin Dressin Toiletin Transferrin Continence: 1 Feedin Magdalena ? Karl Instrumental Activities of Daily Living Scale (IADL): 5/8 Ability to Use Telephone: 1 Shoppin Food Preparation: 1 Housekeepin Laundry: 0 Mode of Transportation: 0 Responsibility for Own Medications: 1 Ability to Handle Finances: 0 Patient Health Questionnaire (PHQ-9): 5 (mild risk of depression) Generalized Anxiety Disorder 7-item (FLORIN-7) scale: 5 (mild risk of anxiety disorder) COGNITIVE COMMUNICATION ASSESSMENT RESULTS (QUANTITATIVE): Abbreviated Mental Test ? 4 (AMT-4): 4 (normal) Assessment Test for Delirium & Cognitive Impairment (4AT): 0 (normal) Short Orientation Memory Concentration Test (SOMCT): 28/28 (within normal limits) Aphasia Severity Rating Scale (ASRS): 5 (Minimal discernible speech handicap) Apraxia of Speech Rating Scale (ASRS-v1): 0 (not present) Digit Memory Test (DMT): Forward Score: 9 Backwards Score: 3 Total: 12 Standard Score: 79 Percentile Equivalent: 8th Winside Test: Correct: 34/35 Total Time: 5:06 Omissions (right): 1 Omissions (left): 0 Omissions (total): 1 Distractors: 0/264 Scanning Strategy: Left to right Trial Making Test (TMT): Part A: 47 seconds (> 78 seconds abnormal) Errors: 0 Part B: 660 seconds (> 273 seconds abnormal) Errors: 12 Bebeto Osterrieth Complex Figure: Copy Trial: (total score: 11; .10th %ile; time: 4:07) Recall Trial: (total score: 9; >10th %ile; time: 6:53) Functional Assessment of Verbal Reasoning and Executive Strategies (FAVRES) TASK #2: SCHEDULING Accuracy: (Raw: 2 Percentile: <1st, SS: 24) Rational: (Raw: 2 Percentile: 13th, SS: 78) Time: (Raw: 20 Percentile: 30th, SS: 91) Total Reasoning Sub-skills: (Raw: 13) COGNITIVE COMMUNICATION ASSESSMENT RESULTS (QUALITATIVE): EXECUTIVE FUNCTIONING: she appears aware of deficits, often identifying issues in a timely manner, though cannot consistently identify and / or execute solutions, frequently exhibiting cognitive inertia; she demonstrates difficulty with information organization and task sequencing, and at times tends to ?talk around? subjects (circumstantial thought processing); improving ability to conceptualize changes and anticipate difficulties; her deficits have accompanied periods of emotions / frustrations, though these are somewhat understandable, though when considering the location of one of her meningioma?s (left frontal region) she would be at a higher risk of depressive ?pseudo-executive? syndromes, and does endorse negative self- statements that promote feelings of inadequacy, reporting disturbances of sleep and energy. She appears to maintain cognitive flexibility; she does not endorse apathy, impulsivity, disinhibition, or impersistence; she does not appear to become stimulus bound. MEMORY: disrupted working memory complicating encoding and consolidation (though this would be a secondary effect) without a clear primacy or recency effect; preserved prospective memory; preserved explicit and implicit memory. ATTENTION: preserved sustained attention; rather impaired attention as the complexity of demands increase (divided, selective, and alternating attention). VISUOSPATIAL ABILITIES: vastly improved visuospatial abilities at the onset of the assessment, though as stimulus items increase in regards to difficulty, there is a marked negative influence on her attention capabilities with a gradual mild reoccurrence of left visual field neglect, with deteriorations in eye contact and visual identification to the far left of midline. LANGUAGE FUNCTIONING: no aphasia / paraphasias; no apraxia; no clinically significant dysarthria or vocal abnormalities; no agraphia; no alexia; does continue to demonstrate residual acalculia /dyscalculia with deterioration in attention / mental endurance. COMPLICATING FACTORS: complicating factors would include possible depression / anxiety associated with her apparent cognitive communication impairments and concomitant disruption in her personal relationships and responsibilities (primarily her ability to care for her spouse and drive independently). RESULTS OF THE EVALUATION: The Patient continues to present with moderate attention deficits in conjunction with mild to moderate left visuospatial neglect / visuospatial construction deficits, with right hemisphere disorder secondary to an acute right middle cerebrovascular accident further complicated by multiple prior / recent cerebrovascular accident(s), prior meningioma?s, and iatrogenic factors (currently undergoing systemic chemotherapy) RECOMMENDATIONS: The Patient requires intensive skilled speech-language intervention targeting implementation of internal and external compensatory cognitive processing compensatory strategies, with initial considerations for Time Pressure Management (TPM) training, [id number]-[id number]-Ln-Review (GPDR), Self-talk procedures, and organizational and elaboration techniques (namely PQRST); implementation of internal and external visuospatial compensatory strategies, to include systemic and teacher dancing scanning therapy with use of principles for visual scanning (Locus of the stimulus, anchoring, pacing, density, information load, performance prediction and feedback); and continued formal and informal assessment of the cognitive communication profile throughout the intervention cycle, with adjustments to the treatment plan as clinically indicated. FUNCTIONAL OUTCOMES: OUTCOME 1: the Patient will utilize compensatory executive functioning / processing strategies identified and implemented throughout the intervention cycle (considerations for PDRE, TPMT) to facilitate improved cognitive processing, attention to task, and achievement of the highest level of safe, independent functioning with 100% accuracy over 2 consecutive sessions. OUTCOME 2: the Patient will independently utilize external and internal compensatory strategies to improve attention to the left side during both structured and unstructured therapeutic tasks over 2 consecutive sessions to facilitate optimal level of safe functioning upon return to home environment. OUTCOME 3: the Patient will independently complete complex money management tasks with use of previously established compensatory strategies to facilitate achievement of the highest level of safe, independent functioning with > 90% accuracy over 2 consecutive sessions. OUTCOME 4: Goal adjustment as needed. Obinna Orr M.A., CCC-AIRCRAFT INSTRUMENT TESTER, CBIS MBSImP Certified, LSVT Certified [facility] Speech-Language Pathology Department [email or web address]
== END 2019-06-07 19:00 | disposition home or self-care (01) ==
LOC: SP 12:00
PROVIDERS: Family Provider Family Medicine; PCP Family Medicine; Referring Provider Psychiatry & Neurology Neurology; Visit Provider Psychiatry & Neurology Neurology
DX: I69.328 Other speech and language deficits following cerebral infarction (principal)
CPT/HCPCS: 92507; 92523

== ENCOUNTER → 2019-06-26 10:54 | Outpatient (CLI) | payer MEDICARE, OTHER, SELFPAY ==
[2019-06-22 14:38] VITALS: BMI 26.7
--- NOTE | 2019-06-26 10:57 | RAD_ITS ---
STUDY: X-RAY - LUMBAR SPINE REASON FOR EXAM: Female, 74 years old. Lower back pain x3-4 weeks. History of multiple myeloma. TECHNIQUE: 3 view(s) of the lumbar spine were obtained. COMPARISON: None FINDINGS: Normal lumbar lordosis. There is no substantial scoliosis. There is a normal alignment of the vertebrae. There is multilevel endplate spondylosis of the lumbar vertebrae. There is multi-level degenerative disc disease with multi-level disc space narrowing. The soft tissue structures are unremarkable. RAD/Lumbar Spine 2 or 3 Views IMPRESSION: Degenerative changes of the spine, as detailed above. Electronically Signed: Michelle Medina MD at 22:31 EDT Tel , Service support ,
== END ==
PROVIDERS: Family Provider Family Medicine; PCP Family Medicine; Referring Provider Anesthesiology Pain Medicine; Visit Provider Anesthesiology Pain Medicine
DX: M47.816 Spondylosis without myelopathy or radiculopathy, lumbar region (principal); M51.36 Other intervertebral disc degeneration, lumbar region; M48.061 Spinal stenosis, lumbar region without neurogenic claudication
CPT/HCPCS: 72100

== ENCOUNTER 2019-06-28 15:21 | Observation (INO) | payer MEDICARE, OTHER, SELFPAY ==
[2019-06-28 15:21] VITALS: BMI 26.7
[2019-06-28 15:22] VITALS: BP 173/77; PULSE 76; PULSE 81; RESP 17; RESP 18; TEMP 36.7; O2SAT 99; BMI 27.4
--- NOTE | 2019-06-28 16:02 | ED.DCSUM_ITS ---
- ER Visit Summary Date of Service: 06/28/19 Chief Complaint: Back pain History of Present Illness: The patient is a 74 F with low back pain. Patient has a history of multiple myeloma and is undergoing chemotherapy. Her last treatment was just prior to arrival. The patient also has a history of chronic low back pain and follows with Dr. Jean. She had her first visit with him on June 26 and her second visit yesterday. She underwent sedation with Versed 6 mg. She had facet injections at L4-L5 and L5-S1. She had some difficulty awakening from sedation but otherwise the procedure went well. She is currently taking [place], 1 tablet twice a day as needed for pain. Patient reports increasing low back pain after chemo today. Denies any injury or trauma. Denies fever or systemic symptoms. Denies weakness or numbness. Denies bowel or bladder changes. She does take Lovenox. Physical Examination: Afebrile and vital signs unremarkable. Patient is tearful and has difficulty with any transferring. She has lumbar tenderness to palpation but otherwise her exam is unremarkable. Good strength and sensation. Abdomen soft and nontender. Test Results: We will check basic labs and x-rays. Emergency Department Course and Treatment: Patient was treated with fentanyl while awaiting labs and x-rays. Will reassess. I spoke with the nurse who is on-call for Dr. Jean, and she is attempting to get a hold of him. I suspect the patient will have minimal improvement after fentanyl. She will likely need other advanced imaging and possible admission. Will reassess. Patient required additional pain medicine. She received a total of 2 doses of fentanyl 50 mcg. She also received Dilaudid 0.5 mg. She went to x-ray twice, but refused x-rays each time. I went to reevaluate the patient. Said she had to get up. She was trying to get out of bed. I was concerned because she had multiple doses of pain medicine. I helped her get up with the nurse. She said it was uncomfortable laying in bed. When she tried to stand up, she said it was too painful to stand up. And she wanted to go back in bed. When she is laying in bed, she typically appears comfortable. She is very anxious and tearful. I explained to her that I would like to get imaging. If the x-rays are not helpful, we may need additional imaging, but the patient is unable to comply with any kind of imaging. She initially refused labs. After further discussion, she was agreeable to repeating her labs. I do not believe she has aortic disease. Her neurovascular exam is normal. She is not having CVA tenderness. She has no urinary symptoms. Her abdomen is soft and nontender. She has no GI symptoms. No red flag neurologic features. No fevers. Skin appears normal. Afebrile and vitals are otherwise unremarkable. Given that the patient is unable to ambulate, will contact the hospitalist to admit. Patient received a dose of steroids. Hospitalist will evaluate the patient in the ED. Her pain doctor will be consulted for evaluation in the hospital tomorrow. Treatment Plan: As above Disposition: Admission Impression: 1. Intractable back pain This note was generated with [employer] dictation software. It may contain incorrect words, spelling, and punctuation that were not noted in review of the chart prior to signing ED Disposition - Plan for ED Patient: Referrals: Augusta Wilson DO [Primary Care Provider] -
[2019-06-28] MEDS: fentaNYL 100 MCG/2 ML Ampul 50 MCG IV ×2 (16:30→16:59)
[2019-06-28 16:48] VITALS: BP 164/89; PULSE 59; RESP 18
[2019-06-28 17:00] VITALS: BP 112/74; PULSE 65; RESP 18; O2SAT 98
[2019-06-28 17:14] LABS: Anion Gap 7 (5-15); BUN 24 mg/dL (7-18); BUN/Creat Ratio 25.7 RATIO (10-20); Calcium,Total 9.8 mg/dL (8.5-10.1); Chloride 102 mmol/L (98-107); Creatinine, Serum 0.93 mg/dL (0.55-1.02); EST Glomerular Filtration Rate 62 mL/min (>60); Est Glom Filt Rate - Afr Amer 75 mL/min (>60); Estimated Creatinine Clearance 45.13 ml/min; Glucose 91 mg/dL (74-106); Potassium 4.3 mmol/L (3.5-5.1); Sodium Level 138 mmol/L (136-145)
[2019-06-28] MEDS: HYDROmorphone 0.5 MG/0.5 ML SYRINGE IV ×2 (18:01→22:19)
[2019-06-28 18:34] VITALS: BP 135/60; RESP 18; O2SAT 98
--- NOTE | 2019-06-28 18:34 | PCM.HP.STD ---
Problem List (1) Intractable back pain Status: Acute (2) HLD (hyperlipidemia) Status: Chronic Qualifiers: Hyperlipidemia type: unspecified Qualified Code(s): E78.5 - Hyperlipidemia, unspecified (3) Anxiety and depression Status: Chronic (4) Cerebrovascular disease Status: Chronic (5) MDS (myelodysplastic syndrome), low grade Status: Chronic (6) Myeloma Status: Chronic Qualifiers: Multiple myeloma remission status: unspecified Qualified Code(s): C90.00 - Multiple myeloma not having achieved remission (7) Cognitive dysfunction Status: Chronic (8) Meningioma Status: Chronic History of Present Illness Date of Admission: 06/28/19 Chief Complaint: Intractable back pain The patient is a 74 y/o F w/ PMHx: Multiple myeloma with ongoing chemotherapy following w/ Dr. Gómez, Hx Meningioma s/p gamma knife, HLD, Anxiety and Depression, Hx CVAs, Chronic back pain following w/ Dr. Jean who presents to the [facility] ED on 06/28/19 with history of progressively worsening acute on chronic lumbar back pain, more notable over the last several weeks with recent as noted plain film of the lumbar spine with evaluation per Dr. Jean on 06/27/19 with lumbar injections in the L4-L5 and L5-S1 regions as well as 6 mg Versed with no ольга-interventional issues aside sedation secondary to medications but improved over time who now presents with worsening lumbar back pain, debility, inability to walk, complaint of bilateral mild foot to ankle paresthesias but no loss of bowel or bladder or new neurological deficits following chemotherapy regimen today. Patient notes that discomfort is in the spine itself at the lumbar region as well as the paraspinous region, worse with palpation as well as with any activity. Work-up in ED included T 98, heart rate 81, BP initially 173/77 but improved to 135/60 with pain medication, respiratory rate 17, 99% on room air, CBC pending, BMP not market appearing, pending mag en face, pending plain film of the lumbar spine. In the ED patient ministered fentanyl, Dilaudid, Toradol and Solu-Medrol. Past Medical History Past Medical History (Chronic Problems): Chronic Problems (Last Reviewed 06/28/19 @ 11:52 by Anika Choudhary) HLD (hyperlipidemia) (Chronic) Anxiety and depression (Chronic) Cerebrovascular disease (Chronic) Macrocytosis (Chronic) MDS (myelodysplastic syndrome), low grade (Chronic) Myeloma (Chronic) Lung nodule (Chronic) Left upper lobe, May 2018 Liver lesion, right lobe (Chronic) Negative biopsy for malignancy June 29, 2018 Anemia (Chronic) Tremor (Chronic) Cognitive dysfunction (Chronic) Meningioma (Chronic) Medical History: Medical History (Last Reviewed 06/28/19 @ 11:52 by Anika Choudhary) Cellulitis L03.90 left eye -2018 History of hysterectomy Z90.710 Meningioma D32.9 Gamma knife at [facility] ~2000 Osteopenia M85.80 Stroke I63.9 X2 - HOSPITALIZATION FOR 5 DAYS Allergies morphine Adverse Reaction (Severe, Verified 06/28/19 15:22) Nausea Home Medications: Ambulatory Orders Medication Instructions Recorded Dexamethasone [Decadron] 20 mg PO QWEEK 05/20/19 Enoxaparin [Lovenox] 80 mg SUBCUT Q12@0600,1800 05/31/19 Acetaminophen [Tylenol Tablet] 650 mg PO Q6H PRN PRN 06/28/19 Acyclovir [Zovirax] 400 mg PO BID 06/28/19 Atenolol [Tenormin (beta wilton)] 37.5 mg PO DAILY 06/28/19 Atorvastatin Calcium [Lipitor] 80 mg PO QHS 06/28/19 Calcium (Elemental) [Os-Nils 500] 1,200 mg PO DAILYCM 06/28/19 Cholecalciferol (VIT D3) [Vitamin 5,000 unit PO DAILY 06/28/19 D3] Escitalopram Oxalate [Lexapro] 10 mg PO DAILY 06/28/19 Gabapentin [Neurontin] 100 mg PO BID 06/28/19 Hydrocodone/Acetaminophen 1 tab PO BID 06/28/19 [Hydrocodone-Acetamin 5-325 mg] Surgical History: Surgical History (Last Reviewed 06/28/19 @ 11:52 by Anika Choudhary) History of cholecystectomy Z90.49 Surgical History: cholecystectomy, hysterectomy, tonsillectomy Psychiatric History: Anxiety, Depression 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 Paternal Family History: Family History (Last Reviewed 06/28/19 @ 11:52 by Anika Choudhary) Mother Breast cancer Sister Breast cancer Aunt Breast cancer Daughter History of malignant melanoma Father Brain cancer Brother Lung cancer History Items: Cancer - Father with history of brain cancer. Review of Systems Constitutional: Reports: Anorexia, Malaise, Weakness, Fatigue. Denies: Chills, Fever, Weight Change HEENT: Denies: Head Aches, Sinus Congestion, Sinus Drainage Cardiovascular: Denies: Chest Pain, Palpitations Respiratory: Denies: Cough, Shortness of breath at rest, Sputum production Gastrointestinal: Denies: Abdominal Pain, Nausea, Vomiting Genitourinary: Denies: Dysuria Musculoskeletal: Reports: Back Pain, Joint Pain, Muscle pain. Denies: Joint Tenderness Skin: Denies: Rash, Wounds Neurological: Reports: Balance problems, Confusion, Numbness. Denies: Focal weakness, Tingling Psychiatric: Reports: Anxiety, Depression. Denies: Homicidal Ideations, Suicidal Ideations Hematologic/ Lymphatic: Reports: Anemia, Easy Bruising, Easy Bleeding VTE Information - Inpt Only VTE Present on Admission: No VTE Mechan Device Prophylaxis: SCD's VTE Pharm Prophylaxis ordered?: Yes Patient Problems: Active and Suspected Problems (Last Reviewed 06/28/19 @ 11:52 by Anika Choudhary) Chemotherapy management, encounter for (Acute) Intractable back pain (Acute) Subjective: Seated upright in the ED bed, uncomfortable appearing, fatigued. Objective: Physical Examination: General: awake, alert, oriented x 3 and cooperative, seated upright in the ED bed, uncomfortable appearing, seated ramrod upright straight in the bed. Skin: normal color, turgor, no icterus, cyanosis. HEENT: AT/NC, EOMI, PERRLA, dry MM, no carotid bruits or JVD noted. Lungs: CTA bilaterally, moderate effort, moderate decrease BL bases, no rales, ronchi or wheezing. Heart: Regular rate and rhythm; no gallop, rub audible. Abdomen: soft, NTTP, ND, normal BS, no HSM. Extremities: no cyanosis, clubbing, or edema, discomfort w/ palpation of the lower lumbar spine but not severe and so some discomfort with palpation of the bilateral paraspinous regions in the lumbar region.. Neurological: patient awake, alert, oriented x 3; cognitive function intact; pupils equally reactive to light and accomodation; cranial nerves II-XII grossly normal, moving all 4 extremities are extremely limited, unable to perform any straight leg raise or movement, noting some bilateral foot paresthesias, sensation bilaterally equal, pattern to the ankle only, strength remains appropriate although globally strength severely decreased secondary to acute presentation and difficulty performing anything secondary to pain. Psychiatric: affect appears fatigued, uncomfortable, no acute evidence of depressive or anxiety feelings. - Physical Exam Vitals/I&O's: Vital Signs Temp Pulse Resp BP Pulse Ox 98.0 F 65 18 112/74 98 06/28/19 15:22 06/28/19 17:00 06/28/19 17:00 06/28/19 17:00 06/28/19 17:00 Oxygen Delivery Method Room Air Weight: 160 lb Body Mass Index (BMI) 27.4 Finger Stick Blood Glucose 101 Laboratory Results 06/28/19 11:45: WBC Cancelled, Corrected WBC Cancelled, RBC Cancelled, Hgb Cancelled, Hct Cancelled, MCV Cancelled, MCH Cancelled, MCHC Cancelled, RDW Std Deviation Cancelled, RDW Coeff of [place] Cancelled, Plt Count Cancelled, MPV Cancelled, Immature Gran % (Auto) Cancelled, Neut % (Auto) Cancelled, Lymph % (Auto) Cancelled, Hall % (Auto) Cancelled, Eos % (Auto) Cancelled, Baso % (Auto) Cancelled, Absolute Neuts (auto) Cancelled, Absolute Lymphs (auto) Cancelled, Total Counted Cancelled, Neutrophils % (Manual) Cancelled, Band Neutrophils % Cancelled, Lymphocytes % (Manual) Cancelled, Monocytes % (Manual) Cancelled, Eosinophils % (Manual) Cancelled, Basophils % (Manual) Cancelled, Metamyelocytes % Cancelled, Myelocytes % Cancelled, Promyelocytes % Cancelled, Blast Cells % Cancelled, Plasma Cell % (Manual) Cancelled, Other Cells % Cancelled, Nucleated RBC % Cancelled, Nucleated RBCs/100 WBC Cancelled, Differential Comment Cancelled, Diff Path Review Cancelled, Hypersegmented Neuts Cancelled, Atypical Lymphocytes Cancelled, Reactive Lymphocytes Cancelled, Smudge Cells Cancelled, Toxic Granulation Cancelled, Toxic Vacuolation Cancelled, Dohle Bodies Cancelled, Leyda Rods Cancelled, Platelet Estimate Cancelled, Plt Morphology Comment Cancelled, RBC Morphology Cancelled, Polychromasia Cancelled, Hypochromasia Cancelled, Poikilocytosis Cancelled, Basophilic Stippling Cancelled, Anisocytosis Cancelled, Microcytosis Cancelled, Macrocytosis Cancelled, Spherocytes Cancelled, Sickle Cells Cancelled, Target Cells Cancelled, Tear Drop Cells Cancelled, Ovalocytes Cancelled, Stomatocytes Cancelled, [place] Bodies Cancelled, [place] Cells Cancelled, Bite Cells Cancelled, Crenated Cell Cancelled, Acanthocytes (Spur) Cancelled, Rouleaux Cancelled, Schistocytes Cancelled 06/28/19 11:45: Sodium 138, Potassium 4.3, Chloride 102, Carbon Dioxide 29.0, Anion Gap 7, BUN 24 H, Creatinine 0.93, Estim Creat Clear Calc 45.13, Est GFR (MDRD) Af Amer 75, Est GFR (MDRD) Non-Af 62, BUN/Creatinine Ratio 25.7 H, Glucose 91, Calcium 9.8 Assessment/Plan All Active Problems (Last Reviewed 06/28/19 @ 11:52 by Anika Choudhary) Stroke (Acute) Chemotherapy management, encounter for (Acute) Intractable back pain (Acute) PFO (patent foramen ovale) (Ruled-out) The patient is a 74 y/o F w/ PMHx: Multiple myeloma with ongoing chemotherapy following w/ Dr. Gómez, Hx Meningioma s/p gamma knife, HLD, Anxiety and Depression, Hx CVAs, Chronic back pain following w/ Dr. Jean who presents to the [facility] ED on 06/28/[address] Landeros lumbar injections in the L4-L5 and L5-S1 regions with worsening lumbar back pain, debility, inability to walk, complaint of bilateral mild foot to ankle paresthesias but no loss of bowel or bladder or new neurological deficits. (1) Acute on Chronic Intractable Back Pain: Plain films in the ED unable to be obtained as patient consistently declined secondary to discomfort and anxiety with plan to obtain once pain improved; however, just had 06/26/19 Lumbar plain film w/ degenerative changes of the lumbar spine, multilevel with multilevel disc space narrowing and multilevel endplate spondylosis of the lumbar vertebrae but no acute findings. Also had Lumbar MRI 11/2018 with no acute findings with diffuse loss of fatty marrow signal compatible with history of multiple myeloma with no focal suspicious lesions, no abnormal enhancement, prominent disc degeneration at L3-L4. Will admit to [facility], maintain on fall precautions, frequent positioning, po/IV pain regimen, low-dose gabapentin, scheduled low-dose Toradol x5 doses, low-dose Zanaflex, initiate Medrol Dosepak, anti-emetics, bowel regimen. Will consult PT and OT for evaluation in addition to case management for discharge planning. Patient is familiar with Dr. Jean, will consult. (2) Multiple myeloma: Patient with ongoing chemotherapy, maintained on Revlimid, most recent regimen on day of ED presentation, will maintain on precautions, mag and phos levels requested, plain film of the lumbar spine pending although patient has had recent plain film that was not remarkable. Dr. Gómez consulted per discussion with family and patient. Maintained on therapeutic lovenox given high risk but no history of VTE. (3) Anxiety and depression: Continue patient home Lexapro regimen. (4) Hyperlipidemia: Continue home statin regimen. (5) Hx CVA: We will maintain on baby asa, therapeutic Lovenox, statin, regimen. (6) DVT prophylaxis: SCDs, therapeutic Lovenox. Code Visit OBSV E&M: 14967 Initial observation care L3
[2019-06-28] MEDS: MethylPREDNISolone 125 MG/2 ML Vial IV (18:55)
[2019-06-28] MEDS: Ketorolac 15 MG/ML Vial IV (18:55)
[2019-06-28 18:56] VITALS: BP 135/60; PULSE 65; RESP 18; O2SAT 98
[2019-06-28 19:41] VITALS: BMI 27.3
[2019-06-28 19:48] LABS: Magnesium 1.9 mg/dL (1.6-2.6); Phosphorus 3.9 mg/dL (2.5-4.9)
[2019-06-28 20:12] LABS: Absolute Lymphocyte Count 0.98 X10^3/uL (0.83-4.51); Absolute Neutrophil Count 12.8 X10^3/uL (2.0-7.7); Basophil# 0.04 X10^3/uL; Basophil% 0.3 % (0-1); Eosinophil# 0.01 X10^3/uL; Eosinophils% 0.1 % (0-5); Hematocrit 39.1 % (37-47); Hemoglobin 13.3 g/dL (12.0-15.0); Lymphocyte # 0.98 X10^3/ul (4.0); Lymphocyte % 6.1 % (19-41); Mean Corpuscular Hgb 34.3 pg (27.0-32.0); Mean Corpuscular Volume 100.8 fL (81-99); Monocyte# 1.98 X10^3/uL; Monocyte% 12.4 % (0-10); NRBC Flagged by Analyzer 0 % (0-5); Neutrophil # 12.75 X10^3/uL (2.7-7.7); POSITIVE DIFFERENTIAL YES; Platelet Count 213 K/mm3 (150-450); RBC Distribution Width CV 13.1 % (11.6-14.6); RBC Distribution Width SD 48.6 fl (35.1-43.9); Red Blood Count 3.88 M/mm3 (4.2-5.4); White Blood Count 15.9 K/mm3 (4.4-11.0)
[2019-06-28 20:21] LABS: Differential Indicated SCAN CRITERIA MET
[2019-06-28 20:31] VITALS: BP 138/56; PULSE 73; RESP 16; TEMP 36.6; O2SAT 96
[2019-06-28 20:47] LABS: Platelet Estimate ADEQUATE (ADEQ); Red Cell Morphology NORM C+C NORMAL (NORM C&C)
[2019-06-28] MEDS: 0.9% Normal Saline 1,000 ML 100 ML IV (20:50)
[2019-06-28] MEDS: Lidocaine 5% Patch 2 PATCH TOPICAL (21:05)
[2019-06-28] MEDS: Enoxaparin 80 MG/0.8 ML Syringe SC (21:09)
[2019-06-28] MEDS: Gabapentin 100 MG Capsule 200 MG PO (21:10)
[2019-06-28] MEDS: Atorvastatin Calcium 80 MG Tablet PO (21:11)
[2019-06-28] MEDS: HYDROcodone Bitartrate/Apap 5/325 Tablet PO ×2 (21:37→23:28)
[2019-06-28] MEDS: tiZANidine HCl 2 MG Tablet PO (22:18)
[2019-06-28] MEDS: Acyclovir 200 MG Capsule 400 MG PO (22:19)
[2019-06-28] MEDS: Temazepam 15 MG Capsule PO (23:30)
[2019-06-29] MEDS: fentaNYL 25 MCG Patch TRANSDERM. (00:42)
[2019-06-29 01:06] LABS: Bacteria 0 SEEN /hpf (None Seen); Mucous, Urine 0 SEEN /hpf (<or=2+); Squamous Epithelial Cells - UA 0 SEEN /hpf (5-10); White Blood Cells 0 SEEN /hpf (0-5)
[2019-06-29 01:09] LABS: Color, Urine Yellow (Yellow); Glucose, Dipstick Normal (Normal); Ketone-Dipstick Negative (Negative); Leukocyte Esterase-Dipstick Negative /ul (Negative); Nitrite-Dipstick Negative (Negative); Occult Blood-Urine 10 /ul (Negative); Protein-Dipstick Negative (Negative); Urine Bilirubin Dipstick Negative (Negative); Urine Clarity Clear (Clear); Urine Urobilinogen Normal (Normal)
[2019-06-29 01:15] LABS: Red Blood Cells-Urine 0-5 SEEN /hpf (0-5)
[2019-06-29 02:20] VITALS: BP 109/49; PULSE 69; RESP 12; TEMP 36.4; O2SAT 96
[2019-06-29 05:45] LABS: Absolute Neutrophil Count 15.1 X10^3/uL (2.0-7.7); Basophil# 0.03 X10^3/uL; Basophil% 0.2 % (0-1); Hematocrit 36.3 % (37-47); Hemoglobin 12.1 g/dL (12.0-15.0); Lymphocyte % 5.6 % (19-41); Mean Corp Hgb Conc 33.3 g/dL (32-36); Mean Corpuscular Hgb 34.6 pg (27.0-32.0); Mean Corpuscular Volume 103.7 fL (81-99); Mean Platelet Vol. 12.2 fl (6.2-12.0); Monocyte% 8.4 % (0-10); NRBC Flagged by Analyzer 0 % (0-5); Neutrophil # 15.12 X10^3/uL (2.7-7.7); Neutrophil % 84.3 % (47-70); Platelet Count 185 K/mm3 (150-450); RBC Distribution Width CV 13.2 % (11.6-14.6); RBC Distribution Width SD 50.1 fl (35.1-43.9); White Blood Count 17.9 K/mm3 (4.4-11.0)
[2019-06-29] MEDS: 0.9% Normal Saline 1,000 ML 100 ML IV (05:53)
--- NOTE | 2019-06-29 05:58 | MRI_ITS ---
We are attempting to reach an attending provider to discuss findings. An addendum with communication details will be sent when the communication is complete. STUDY: MRI LUMBAR SPINE WITH AND WITHOUT CONTRAST REASON FOR EXAM: Female, 74 years old. Leg weakness. Low back pain. Recent lumbar injections. Multiple myeloma. TECHNIQUE: Standardized fat and water weighted pulse sequences were obtained in the sagittal and axial planes. IV Dotarem 14 was administered for the contrast portion of the examination. COMPARISON: December 01, 2018. FINDINGS: No abnormal contrast-enhancement. Extensive epidural collection extending from the posterior portions of the L1 level most pronounced at the L4-S1 level measuring approximately 3 cm x 0.9 cm x 2.4 cm (axial image 12 series 5 and sagittal image 8 series 2). Lesion length measures up to 17 cm (sagittal image 7 series 2). Lesion demonstrates multiple blood fluid levels (sagittal image 7 series 2). Lesion causes variable degrees of central canal narrowing most severe at the L4-S1 levels. Lesion causes multilevel lateral recess narrowing with impingement of the descending L3, L4, L5 and S1 nerve roots. Homogeneous low T1 marrow signal diffusely without corresponding STIR abnormalities. T11 hemangioma. S1 hemangioma. No acute fracture. No dislocation. Lumbar lordosis preserved. No significant scoliosis. Conus medullaris terminates at the L1 level. L5-S1: Shallow disc bulge. Facet arthrosis. L4-L5: Shallow disc bulge. Facet arthrosis. L3-4: Left paracentral disc protrusion. Left neural foraminal narrowing with impingement. Facet arthrosis. L2-3: Shallow disc bulge. Facet arthrosis. L1-2: Shallow disc bulge. T12-L1: Disc desiccation. MRI/Spine Lumbar W/WO Contrast IMPRESSION: Large epidural nonenhancing lesion with multiple blood fluid levels extending from the L1-S1 levels. Differential diagnosis favors epidural hematoma based on clinical history, short-term interval change from prior study and lack of contrast enhancement. Alternative consideration for nonenhancing neoplasm less likely. Surgical consultation recommended. Multilevel central canal and lateral recess narrowing secondary to epidural lesion most severe at the L3-4, L4-5 and L5-S1 levels Relatively stable multilevel intervertebral disc disease Left neural femoral narrowing with impingement at L3-4 Homogeneous nonenhancing low T1 marrow signal compatible with patient's history of multiple myeloma Electronically Signed: Constantino Ernst DO at 10:08 EDT Tel , Service support ,
[2019-06-29] MEDS: Gabapentin 100 MG Capsule 200 MG PO ×2 (06:12→13:08)
[2019-06-29] MEDS: Ketorolac 15 MG/ML Vial IV ×2 (06:13→13:09)
[2019-06-29 06:14] LABS: Anion Gap 9 (5-15); BUN 27 mg/dL (7-18); BUN/Creat Ratio 28.7 RATIO (10-20); Calcium,Total 8.8 mg/dL (8.5-10.1); Chloride 107 mmol/L (98-107); Creatinine, Serum 0.94 mg/dL (0.55-1.02); EST Glomerular Filtration Rate 62 mL/min (>60); Est Glom Filt Rate - Afr Amer 75 mL/min (>60); Estimated Creatinine Clearance 42.78 ml/min; Glucose 145 mg/dL (74-106); Potassium 4.3 mmol/L (3.5-5.1); Sodium Level 138 mmol/L (136-145)
[2019-06-29] MEDS: 0.9% Saline Lock 10 ML Syringe IV ×5 (06:18→14:28)
[2019-06-29 06:55] VITALS: BP 156/88; PULSE 75; RESP 16; TEMP 36.6; O2SAT 96
[2019-06-29] MEDS: HYDROmorphone 0.5 MG/0.5 ML SYRINGE IV ×4 (06:57→14:28)
[2019-06-29 07:28] VITALS: O2SAT 98
--- NOTE | 2019-06-29 07:55 | NURSING ---
Off unit to MRI at this time.
[2019-06-29] MEDS: Escitalopram Oxalate 10 MG Tablet PO (10:23)
[2019-06-29] MEDS: Acyclovir 200 MG Capsule 400 MG PO (10:23)
[2019-06-29] MEDS: MethylPREDNISolone DosePak 4 MG BOX PO ×2 (10:23→13:09)
[2019-06-29] MEDS: tiZANidine HCl 2 MG Tablet PO (10:24)
[2019-06-29] MEDS: Atenolol 25 MG Tablet 37.5 MG PO (10:24)
--- NOTE | 2019-06-29 10:36 | CASEMGMT ---
SW let pt know that LW/POA forms are not on file, asked pt to bring in the forms as able. Pt states understanding. HERIBERTO Frias
--- NOTE | 2019-06-29 11:38 | NURSING ---
Lab still attempting to get blood cultures. Unable to hang atb until these are drawn. Asked lab staff to notify this RN when cultures are completed so atb's can be hung.
--- NOTE | 2019-06-29 12:29 | DS.PCM_ITS ---
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 Multiple myeloma Hx CVA, HLD, anx depression - Secondary Discharge Diagnosis Chronic Problems (Last Reviewed 06/28/19 @ 11:52 by Anika Choudhary) HLD (hyperlipidemia) (Chronic) Anxiety and depression (Chronic) Cerebrovascular disease (Chronic) Macrocytosis (Chronic) MDS (myelodysplastic syndrome), low grade (Chronic) Myeloma (Chronic) Lung nodule (Chronic) Left upper lobe, May 2018 Liver lesion, right lobe (Chronic) Negative biopsy for malignancy June 29, 2018 Anemia (Chronic) Tremor (Chronic) Cognitive dysfunction (Chronic) Meningioma (Chronic) Hospital Course and Treatment Imaging Results: IMAGIN06/29/19 05:58 MRI Lumbar [Spine Lumbar W/WO Contrast] [MRI] Stat MRI/Spine Lumbar W/WO Contrast IMPRESSION: Large epidural nonenhancing lesion with multiple blood fluid levels extending from the L1-S1 levels. Differential diagnosis favors epidural hematoma based on clinical history, short-term interval change from prior study and lack of contrast enhancement. Alternative consideration for nonenhancing neoplasm less likely. Surgical consultation recommended. Multilevel central canal and lateral recess narrowing secondary to epidural lesion most severe at the L3-4, L4-5 and L5-S1 levels Relatively stable multilevel intervertebral disc disease Left neural femoral narrowing with impingement at L3-4 Homogeneous nonenhancing low T1 marrow signal compatible with patient's history of multiple myeloma N.B. : The above information has been verbally conveyed by Constantino Ernst DO to Dr. Ronel MD, on 06/29/2019 10:25:51 (ET). Operations: None Procedures: None Summary of Care Provided: Hospital Course: The patient is a 74 year old F with pmhx of Multiple myeloma, prior cva, hld, anx/depression who presented to the ER 06/28/2019 with intractable back pain in the lumbar spine, as well as BL leg pain with parasthesias, and difficulty ambulating. She is in pain management with Dr. Jean for chronic back pain and received L4/L5 L5/S1 spinal injections 06/27/2019. She also is treated for multiple myeloma with reflimid by oncology Dr. Novak. In the ER she had a new marked leukocytosis and intractable back pain with difficulty ambulating. She was admitted for pain control and therapy. She underwent an MRI of the spine the following morning and was found to have a large L1 to S1 lesion reported by radiology to likely be an epidural hematoma. With her marked leukocytosis we were concerned for possible associated infection and started her on vanc/rocephi n and margaret blood cultures. She did not have a fever. The decision was made to transfer the patient as she needed surgical evaluation. Per the patients request transfer was requested at [facility]. Dr. Bebeto Beal who is an orthopedic spinal surgeon felt that the patient should be transferred to the hospital through the [facility] ER. The ER charge physician is Dr. Ray Garcia. The patient was agreeable to transfer to [facility] ER. She was transferred in stable condition. This patient was seen by Mateo Quispe PA-C under the supervision of Dr. Rodney. [] Patient Problems: Active and Suspected Problems (Last Reviewed 06/28/19 @ 11:52 by Anika Choudhary) Chemotherapy management, encounter for (Acute) Intractable back pain (Acute) - Physical Exam Vitals/I&O's: Vital Signs Temp Pulse Resp BP Pulse Ox 97.8 F 75 16 156/88 H 98 06/29/19 06:55 06/29/19 06:55 06/29/19 06:55 06/29/19 06:55 06/29/19 07:28 Oxygen Delivery Method Room Air Weight: 154 lb 5.177 oz Body Mass Index (BMI) 27.3 Finger Stick Blood Glucose 101 Intake and Output for Last 24 Hours 06/27/19 06/28/19 06/29/19 23:59 23:59 23:59 Intake Total 1895 / 1895 Output Total 650 / 650 Balance 1245 / 1245 General: Alert, Oriented x3, Cooperative, Lethargic HEENT: Atraumatic, PERRLA, EOMI, Normocephalic Neck: Supple, No JVD, Negative Carotid Bruits Lungs: Clear to auscultation, Normal air movement Cardiovascular: Regular rate, No murmurs Abdomen: Bowel Sounds Present, Soft, Non Tender Extremities: No edema, Capillary Refill Less than 3 Seconds Skin: No rashes, No breakdown Musculoskeletal: No Tenderness to Palpation of Joints or Extremities Neurological: Cranial nerves II-XII grossly intact Psych/Mental Status: Normal Affect, Appropriate Laboratory Results 06/28/19 11:45: WBC Cancelled, Corrected WBC Cancelled, RBC Cancelled, Hgb Cancelled, Hct Cancelled, MCV Cancelled, MCH Cancelled, MCHC Cancelled, RDW Std Deviation Cancelled, RDW Coeff of Moriah Cancelled, Plt Count Cancelled, MPV Cancelled, Immature Gran % (Auto) Cancelled, Neut % (Auto) Cancelled, Lymph % (Auto) Cancelled, [place] % (Auto) Cancelled, Eos % (Auto) Cancelled, Baso % (Auto) Cancelled, Absolute Neuts (auto) Cancelled, Absolute Lymphs (auto) Cancelled, Total Counted Cancelled, Neutrophils % (Manual) Cancelled, Band Neutrophils % Cancelled, Lymphocytes % (Manual) Cancelled, Monocytes % (Manual) Cancelled, E osinophils % (Manual) Cancelled, Basophils % (Manual) Cancelled, Metamyelocytes % Cancelled, Myelocytes % Cancelled, Promyelocytes % Cancelled, Blast Cells % Cancelled, Plasma Cell % (Manual) Cancelled, Other Cells % Cancelled, Nucleated RBC % Cancelled, Nucleated RBCs/100 WBC Cancelled, Differential Comment Cancelled, Diff Path Review Cancelled, Hypersegmented Neuts Cancelled, Atypical Lymphocytes Cancelled, Reactive Lymphocytes Cancelled, Smudge Cells Cancelled, Toxic Granulation Cancelled, Toxic Vacuolation Cancelled, Dohle Bodies Cancelled, Leyda Rods Cancelled, Platelet Estimate Cancelled, Plt Morphology Comment Cancelled, RBC Morphology Cancelled, Polychromasia Cancelled, Hypochromasia Cancelled, Poikilocytosis Cancelled, Basophilic Stippling Cancelled, Anisocytosis Cancelled, Microcytosis Cancelled, Macrocytosis Cancelled, Spherocytes Cancelled, Sickle Cells Cancelled, Target Cells Cancelled, Tear Drop Cells Cancelled, Ovalocytes Cancelled, Stomatocytes Cancelled, Acuña-Gazelle Bodies Cancelled, Bijal Cells Cancelled, Bite Cells Cancelled, Crenated Cell Cancelled, Acanthocytes (Spur) Cancelled, Rouleaux Cancelled, Schistocytes Cancelled 06/28/19 11:45: Sodium 138, Potassium 4.3, Chloride 102, Carbon Dioxide 29.0, Anion Gap 7, BUN 24 H, Creatinine 0.93, Estim Creat Clear Calc 45.13, Est GFR (MDRD) Af Amer 75, Est GFR (MDRD) Non-Af 62, BUN/Creatinine Ratio 25.7 H, Glucose 91, Calcium 9.8 06/28/19 11:45: Phosphorus 3.9, Magnesium 1.9 06/28/19 20:00: WBC 15.9 H, RBC 3.88 L, Hgb 13.3, Hct 39.1, MCV 100.8 H, MCH 34.3 H, MCHC 34.0, RDW Std Deviation 48.6 H, RDW Coeff of Moriah 13.1, Plt Count 213, MPV 12.0, Immature Gran % (Auto) 1.100 H, Neut % (Auto) 80.0 H, Lymph % (Auto) 6.1 L, [place] % (Auto) 12.4 H, Eos % (Auto) 0.1, Baso % (Auto) 0.3, Absolute Neuts (auto) 12.8 H, Absolute Lymphs (auto) 0.98, Nucleated RBC % 0, Differential Comment , Diff Path Review May foll, Platelet Estimate ADEQUATE, RBC Morphology NORM C+C 06/29/19 01:00: Urine Color Yellow, Urine Clarity Clear, Urine pH 7.0, Ur Specific [place] 1.010, Urine Protein Negative, Urine Glucose (UA) Normal, Urine Ketones Negative, Urine Occult Blood 10 H, Urine Nitrite Negative, Urine Bilirubin Negative, Urine Urobilinogen Normal, Ur Leukocyte Esterase Negative, Urine RBC 0-5 SEEN, Urine WBC 0 SEEN, Ur Squamous Epith Cells 0 SEEN, Urine Bacteria 0 SEEN, Urine Mucus 0 SEEN 06/29/19 05:30: Sodium 138, Potassium 4.3, Chloride 107, Carbon Dioxide 22.0, Anion Gap 9, BUN 27 H, Creatinine 0.94, Estim Creat Clear Calc 42.78, Est GFR (MDRD) Af Amer 75, Est GFR (MDRD) Non-Af 62, BUN/Creatinine Ratio 28.7 H, Glucose 145 H, Calcium 8.8 06/29/19 05:30: WBC 17.9 H, RBC 3.50 L, Hgb 12.1, Hct 36.3 L, MCV 103.7 H, MCH 34.6 H, MCHC 33.3, RDW Std Deviation 50.1 H, RDW Coeff of Moriah 13.2, Plt Count 185, MPV 12.2 H, Immature Gran % (Auto) 1.500 H, Neut % (Auto) 84.3 H, Lymph % (Auto) 5.6 L, [place] % (Auto) 8.4, Eos % (Auto) 0.0, Baso % (Auto) 0.2, Absolute Neuts (auto) 15.1 H, Absolute Lymphs (auto) 1.00, Nucleated RBC % 0 Current Medications Acetaminophen (Tylenol) 650 mg PO Q6H PRN PRN PRN Reason: Non-cardiac pain (mod-severe) Hydrocodone Bitart/Acetaminophen ([place] 5mg-325mg) 1 - 2 tablet PO Q4H PRN PRN PRN Reason: Pain Score 4-10/10 Last Admin: 06/28/19 23:28 Dose: 1 tablet Documented by: Acyclovir (Zovirax) 400 mg PO BID [facility] Last Admin: 06/29/19 10:23 Dose: 400 mg Documented by: Al Hydroxide/Mg Hydroxide (Mylanta Ii) 15 - 30 ml PO Q4H PRN PRN PRN Reason: INDIGESTION Albuterol Sulfate (Ventolin Aerosols) 2.5 mg INHALATION Q2H PRN PRN PRN Reason: dyspnea, wheezing Aspirin (Aspirin, Baby) 81 mg PO DAILY@0800 [facility] Last Admin: 06/29/19 10:21 Dose: Not Given Documented by: Atenolol (Tenormin (Beta Joann)) 37.5 mg PO DAILY [facility] Last Admin: 06/29/19 10:24 Dose: 37.5 mg Documented by: Atorvastatin Calcium (Lipitor) 80 mg PO QHS [facility] Last Admin: 06/28/19 21:11 Dose: 80 mg Documented by: Dextrose (D50w Syringe) 0 gm IV X1 PRN; Protocol PRN Reason: Hypoglycemia Enoxaparin Sodium (Lovenox) 80 mg SC Q12@0600,1800 [facility] Last Admin: 06/28/19 21:09 Dose: 80 mg Documented by: Escitalopram Oxalate (Lexapro) 10 mg PO DAILY [facility] Last Admin: 06/29/19 10:23 Dose: 10 mg Documented by: Fentanyl (Duragesic Patch) 25 mcg TRANSDERM. Q3D [facility] Last Admin: 06/29/19 00:42 Dose: 25 mcg Documented by: Gabapentin (Neurontin) 200 mg PO TID [facility] Last Admin: 06/29/19 06:12 Dose: 200 mg Documented by: Glucagon () 1 mg IM .X1 PRN PRN Reason: Hypoglycemia Hydralazine HCl (Apresoline Iv) 10 mg IV Q4H PRN PRN PRN Reason: SBP > 160 Hydromorphone HCl (Dilaudid Inj) 0.5 mg IV Q4H PRN PRN PRN Reason: severe pain -06/08 Last Admin: 06/29/19 06:57 Dose: 0.5 mg Documented by: Sodium Chloride () 1,000 mls @ 100 mls/hr IV .Q10H [facility] Last Infusion: 06/29/19 11:47 Dose: 0 mls/hr Documented by: Ceftriaxone Sodium 2 gm/ (Sodium Chloride) 50 mls @ 100 mls/hr IV Q12 [facility] Last Admin: 06/29/19 11:46 Dose: 100 mls/hr Documented by: Vancomycin IV Pharmacy to Dose (1 ea/ Sodium Chloride) 500 mls @ 250 mls/hr IV PRN PRN; Protocol PRN Reason: Rx to Dose Vancomycin HCl 1,750 mg/ (Sodium Chloride) 535 mls @ 250 mls/hr IV X1 ONE Stop: 06/29/19 14:08 Ketorolac Tromethamine (Toradol) 15 mg IV Q8 [facility] Stop: 06/30/19 14:01 Last Admin: 06/29/19 06:13 Dose: 15 mg Documented by: Lidocaine (Lidoderm Patch) 2 patch TOPICAL DAILY [facility]; Protocol Last Admin: 06/29/19 10:22 Dose: 2 patch Documented by: Magnesium Hydroxide (Milk Of Magnesia) 30 ml PO DAILY PRN PRN Reason: Constipation Methylprednisolone (Medrol Dosepak) 4 mg PO 1200,1700 [facility]; Taper Stop: 07/04/19 08:59 Last Admin: 06/29/19 10:23 Dose: 8 mg Documented by: Nitroglycerin (Nitrostat) 0.4 mg SUBLINGUAL Q5M PRN PRN Reason: CARDIAC/CHEST PAIN Ondansetron HCl (Zofran) 4 mg IV Q8H PRN PRN PRN Reason: NAUSEA/VOMITING Sodium Chloride () 10 - 40 ml IV UD PRN PRN Reason: SALINE FLUSH Last Admin: 06/29/19 10:22 Dose: 10 ml Documented by: Temazepam (Restoril) 15 mg PO QHS PRN PRN PRN Reason: INSOMNIA Last Admin: 06/28/19 23:30 Dose: 15 mg Documented by: Tizanidine HCl (Zanaflex) 2 mg PO Q12 [facility] Last Admin: 06/29/19 10:24 Dose: 2 mg Documented by: Discharge Diet: - - as directed by receiving facility Discharge Activity: - - as directed by receiving facility Home Medications: Medications to take at Discharge Dexamethasone [Decadron] 20 mg PO PRN PRN 05/20/19 Enoxaparin [Lovenox] 80 mg SUBCUT Q12@0600,1800 05/31/19 Acetaminophen [Tylenol Tablet] 650 mg PO Q6H PRN PRN 06/28/19 Acyclovir [Zovirax] 400 mg PO BID 06/28/19 Atenolol [Tenormin (beta joann)] 37.5 mg PO DAILY 06/28/19 Atorvastatin Calcium [Lipitor] 80 mg PO QHS 06/28/19 Calcium (Elemental) [[place]ils 500] 1,200 mg PO DAILYCM 06/28/19 Cholecalciferol (VIT D3) [Vitamin D3] 5,000 unit PO DAILY 06/28/19 Escitalopram Oxalate [Lexapro] 10 mg PO DAILY 06/28/19 Gabapentin [Neurontin] 100 mg PO BID 06/28/19 Hydrocodone/Acetaminophen [Hydrocodone-Acetamin 5-325 mg] 1 tab PO BID 06/28/19 Primary Care Physician: Augusta Wilson DO [Primary Care Provider] - Please follow up with your Primary Care Physician in: as directed Disposition: Acute care Hospital Minutes spent on discharge:: 35 Patient Condition:: Stable Medical Necessity - Tobacco Use Smoking Status: Never smoker Tobacco Use: Non-smoker Meaningful Use Info Meaningful Use Diagnoses (Choose all that apply): None applicable <Ar Rodney - Last Filed: 06/29/19 12:51> Discharge Date and Diagnosis - Primary Discharge Diagnosis Active and Suspected Problems (Last Reviewed 06/28/19 @ 11:52 by Anika Choudhary) Chemotherapy management, encounter for (Acute) Intractable back pain (Acute) - Secondary Discharge Diagnosis Chronic Problems (Last Reviewed 06/28/19 @ 11:52 by Anika Choudhary) HLD (hyperlipidemia) (Chronic) Anxiety and depression (Chronic) Cerebrovascular disease (Chronic) Macrocytosis (Chronic) MDS (myelodysplastic syndrome), low grade (Chronic) Myeloma (Chronic) Lung nodule (Chronic) Left upper lobe, May 2018 Liver lesion, right lobe (Chronic) Negative biopsy for malignancy June 29, 2018 Anemia (Chronic) Tremor (Chronic) Cognitive dysfunction (Chronic) Meningioma (Chronic) Hospital Course and Treatment Imaging Results: 06/29/19 05:58 MRI Lumbar [Spine Lumbar W/WO Contrast] [MRI] Stat Summary of Care Provided: The patient is a 74 year old F [] - Physical Exam Vitals/I&O's: Vital Signs Temp Pulse Resp BP Pulse Ox 98.8 F 66 16 108/39 L 94 06/29/19 12:36 06/29/19 12:36 06/29/19 12:36 06/29/19 12:36 06/29/19 12:36 Oxygen Delivery Method Room Air Weight: 154 lb 5.177 oz Body Mass Index (BMI) 27.3 Finger Stick Blood Glucose 101 Intake and Output for Last 24 Hours 06/27/19 06/28/19 06/29/19 23:59 23:59 23:59 Intake Total 1974 / 1974 Output Total 650 / 650 Balance 1325 / 1325 Laboratory Results 06/28/19 11:45: WBC Cancelled, Corrected WBC Cancelled, RBC Cancelled, Hgb Cancelled, Hct Cancelled, MCV Cancelled, MCH Cancelled, MCHC Cancelled, RDW Std Deviation Cancelled, RDW Coeff of Moriah Cancelled, Plt Count Cancelled, MPV Cancelled, Immature Gran % (Auto) Cancelled, Neut % (Auto) Cancelled, Lymph % (Auto) Cancelled, [place] % (Auto) Cancelled, Eos % (Auto) Cancelled, Baso % (Auto) Cancelled, Absolute Neuts (auto) Cancelled, Absolute Lymphs (auto) Cancelled, Total Counted Cancelled, Neutrophils % (Manual) Cancelled, Band Neutrophils % Cancelled, Lymphocytes % (Manual) Cancelled, Monocytes % (Manual) Cancelled, Eosinophils % (Manual) Cancelled, Basophils % (Manual) Cancelled, Metamyelocytes % Cancelled, Myelocytes % Cancelled, Promyelocytes % Cancelled, Blast Cells % Cancelled, Plasma Cell % (Manual) Cancelled, Other Cells % Cancelled, Nucleated RBC % Cancelled, Nucleated RBCs/100 WBC Cancelled, Differential Comment Cancelled, Diff Path Review Cancelled, Hypersegmented Neuts Cancelled, Atypical Lymphocytes Cancelled, Reactive Lymphocytes Cancelled, Smudge Cells Cancelled, Toxic Granulation Cancelled, Toxic Vacuolation Cancelled, Dohle Bodies Cancelled, Leyda Rods Cancelled, Platelet Estimate Cancelled, Plt Morphology Comment Cancelled, RBC Morphology Cancelled, Polychromasia Cancelled, Hypochromasia Cancelled, Poikilocytosis Cancelled, Basophilic Stippling Cancelled, Anisocytosis Cancelled, Microcytosis Cancelled, Macrocytosis Cancelled, Spherocytes Cancelled, Sickle Cells Cancelled, Target Cells C ancelled, Tear Drop Cells Cancelled, Ovalocytes Cancelled, Stomatocytes Cancelled, Acuña-Gazelle Bodies Cancelled, [place] Cells Cancelled, Bite Cells Cancelled, Crenated Cell Cancelled, Acanthocytes (Spur) Cancelled, Rouleaux Cancelled, Schistocytes Cancelled 06/28/19 11:45: Sodium 138, Potassium 4.3, Chloride 102, Carbon Dioxide 29.0, Anion Gap 7, BUN 24 H, Creatinine 0.93, Estim Creat Clear Calc 45.13, Est GFR (MDRD) Af Amer 75, Est GFR (MDRD) Non-Af 62, BUN/Creatinine Ratio 25.7 H, Glucose 91, Calcium 9.8 06/28/19 11:45: Phosphorus 3.9, Magnesium 1.9 06/28/19 20:00: WBC 15.9 H, RBC 3.88 L, Hgb 13.3, Hct 39.1, MCV 100.8 H, MCH 34.3 H, MCHC 34.0, RDW Std Deviation 48.6 H, RDW Coeff of Moriah 13.1, Plt Count 213, MPV 12.0, Immature Gran % (Auto) 1.100 H, Neut % (Auto) 80.0 H, Lymph % (Auto) 6.1 L, [place] % (Auto) 12.4 H, Eos % (Auto) 0.1, Baso % (Auto) 0.3, Absolute Neuts (auto) 12.8 H, Absolute Lymphs (auto) 0.98, Nucleated RBC % 0, Differential Comment , Diff Path Review May foll, Platelet Estimate ADEQUATE, RBC Morphology NORM C+C 06/29/19 01:00: Urine Color Yellow, Urine Clarity Clear, Urine pH 7.0, Ur Specific [place] 1.010, Urine Protein Negative, Urine Glucose (UA) Normal, Urine Ketones Negative, Urine Occult Blood 10 H, Urine Nitrite Negative, Urine Bilirubin Negative, Urine Urobilinogen Normal, Ur Leukocyte Esterase Negative, Urine RBC 0-5 SEEN, Urine WBC 0 SEEN, Ur Squamous Epith Cells 0 SEEN, Urine Bacteria 0 SEEN, Urine Mucus 0 SEEN 06/29/19 05:30: Sodium 138, Potassium 4.3, Chloride 107, Carbon Dioxide 22.0, Anion Gap 9, BUN 27 H, Creatinine 0.94, Estim Creat Clear Calc 42.78, Est GFR (MDRD) Af Amer 75, Est GFR (MDRD) Non-Af 62, BUN/Creatinine Ratio 28.7 H, Glucose 145 H, Calcium 8.8 06/29/19 05:30: WBC 17.9 H, RBC 3.50 L, Hgb 12.1, Hct 36.3 L, MCV 103.7 H, MCH 34.6 H, MCHC 33.3, RDW Std Deviation 50.1 H, RDW Coeff of Moriah 13.2, Plt Count 185, MPV 12.2 H, Immature Gran % (Auto) 1.500 H, Neut % (Auto) 84.3 H, Lymph % (Auto) 5.6 L, [place] % (Auto) 8.4, Eos % (Auto) 0.0, Baso % (Auto) 0.2, Absolute Neuts (auto) 15.1 H, Absolute Lymphs (auto) 1.00, Nucleated RBC % 0 Current Medications Acetaminophen (Tylenol) 650 mg PO Q6H PRN PRN PRN Reason: Non-cardiac pain (mod-severe) Hydrocodone Bitart/Acetaminophen ([place] 5mg-325mg) 1 - 2 tablet PO Q4H PRN PRN PRN Reason: Pain Score 4-10/10 Last Admin: 06/28/19 23:28 Dose: 1 tablet Documented by: Acyclovir (Zovirax) 400 mg PO BID [facility] Last Admin: 06/29/19 10:23 Dose: 400 mg Documented by: Al Hydroxide/Mg Hydroxide (Mylanta Ii) 15 - 30 ml PO Q4H PRN PRN PRN Reason: INDIGESTION Albuterol Sulfate (Ventolin Aerosols) 2.5 mg INHALATION Q2H PRN PRN PRN Reason: dyspnea, wheezing Aspirin (Aspirin, Baby) 81 mg PO DAILY@0800 [facility] Last Admin: 06/29/19 10:21 Dose: Not Given Documented by: Atenolol (Tenormin (Beta Joann)) 37.5 mg PO DAILY [facility] Last Admin: 06/29/19 10:24 Dose: 37.5 mg Documented by: Atorvastatin Calcium (Lipitor) 80 mg PO QHS [facility] Last Admin: 06/28/19 21:11 Dose: 80 mg Documented by: Dextrose (D50w Syringe) 0 gm IV X1 PRN; Protocol PRN Reason: Hypoglycemia Enoxaparin Sodium (Lovenox) 80 mg SC Q12@0600,1800 [facility] Last Admin: 06/28/19 21:09 Dose: 80 mg Documented by: Escitalopram Oxalate (Lexapro) 10 mg PO DAILY [facility] Last Admin: 06/29/19 10:23 Dose: 10 mg Documented by: Fentanyl (Duragesic Patch) 25 mcg TRANSDERM. Q3D [facility] Last Admin: 06/29/19 00:42 Dose: 25 mcg Documented by: Gabapentin (Neurontin) 200 mg PO TID [facility] Last Admin: 06/29/19 06:12 Dose: 200 mg Documented by: Glucagon () 1 mg IM .X1 PRN PRN Reason: Hypoglycemia Hydralazine HCl (Apresoline Iv) 10 mg IV Q4H PRN PRN PRN Reason: SBP > 160 Hydromorphone HCl (Dilaudid Inj) 0.5 mg IV Q4H PRN PRN PRN Reason: severe pain 6-10/10 Last Admin: 06/29/19 06:57 Dose: 0.5 mg Documented by: Sodium Chloride () 1,000 mls @ 100 mls/hr IV .Q10H [facility] Last Infusion: 06/29/19 12:34 Dose: 0 mls/hr Documented by: Ceftriaxone Sodium 2 gm/ (Sodium Chloride) 50 mls @ 100 mls/hr IV Q12 [facility] Last Infusion: 06/29/19 12:16 Dose: Infused Documented by: Vancomycin IV Pharmacy to Dose (1 ea/ Sodium Chloride) 500 mls @ 250 mls/hr IV PRN PRN; Protocol PRN Reason: Rx to Dose Vancomycin HCl 1,750 mg/ (Sodium Chloride) 535 mls @ 250 mls/hr IV X1 ONE Stop: 06/29/19 14:08 Last Admin: 06/29/19 12:34 Dose: 250 mls/hr Documented by: Ketorolac Tromethamine (Toradol) 15 mg IV Q8 [facility] Stop: 06/30/19 14:01 Last Admin: 06/29/19 06:13 Dose: 15 mg Documented by: Lidocaine (Lidoderm Patch) 2 patch TOPICAL DAILY [facility]; Protocol Last Admin: 06/28/19 21:05 Dose: 2 patch Documented by: Magnesium Hydroxide (Milk Of Magnesia) 30 ml PO DAILY PRN PRN Reason: Constipation Methylprednisolone (Medrol Dosepak) 4 mg PO 1200,1700 [facility]; Taper Stop: 07/04/19 08:59 Last Admin: 06/29/19 10:23 Dose: 8 mg Documented by: Nitroglycerin (Nitrostat) 0.4 mg SUBLINGUAL Q5M PRN PRN Reason: CARDIAC/CHEST PAIN Ondansetron HCl (Zofran) 4 mg IV Q8H PRN PRN PRN Reason: NAUSEA/VOMITING Sodium Chloride () 10 - 40 ml IV UD PRN PRN Reason: SALINE FLUSH Last Admin: 06/29/19 10:22 Dose: 10 ml Documented by: Temazepam (Restoril) 15 mg PO QHS PRN PRN PRN Reason: INSOMNIA Last Admin: 06/28/19 23:30 Dose: 15 mg Documented by: Tizanidine HCl (Zanaflex) 2 mg PO Q12 [facility] Last Admin: 06/29/19 10:24 Dose: 2 mg Documented by: Code Visit Addendum: Dr. Rodney I personally examined the patient and reviewed the chart. I agree with the above.-year-old female with a history of multiple myeloma had a spinal injection by Dr. Jean on 06/27/2019. She presented yesterday with significant paresthesias in her lower extremities and significant difficulty walking. She did not have any loss of bowel or bladder function. Because of her sudden worsening of symptoms an MRI was ordered for the morning and that demonstrated a large epidural hematoma from L1-S1. She also had an elevated white count that was not consistent with her steroid use a little over a week ago. She has been afebrile however her white count on admission was 15.9 and today was 17.9. She is only received 1 dose of Decadron this morning, therefore blood cultures were drawn and she was started on Rocephin and vancomycin. She only takes Decadron prior to chemotherapy. because there is no neurosurgical coverage at this hospital, the decision was made to be transferred to a higher level of care. She will be transferred to [facility] for further disposition. OBSV E&M: [id number] Observation care discharge
[2019-06-29 12:36] VITALS: BP 108/39; PULSE 66; RESP 16; TEMP 37.1; O2SAT 94
[2019-06-29 13:45] LABS: Pathologist Review Reviewed
--- NOTE | 2019-06-29 14:00 | CHAPLAIN ---
Type of Pastoral Visit _x__ Initial Visit ___ Follow-up Visit ___ On-call Visit ___ General Patient Visit ___ Spiritual Assessment ___ Family Conference ___ Bereavement ___ Rapid Response ___ Code Blue ___ Other (describe below) Pastoral Care Referral From _x__ Patient ___ Family ___ Nurse ___ Physician ___ Bill Distributor ___ Oyster Sorter ___ Other (describe below) Sacrament/Intervention _x__ Active listening ___ Anointing ___ Pentecostal ___ Bereavement ___ Communion ___ Orly exploration ___ _x__ Life review _x__ Prayer ___ Reconciliation ___ Sacrament of Sick ___ Supportive presence ___ Wedding ___ Other (describe below) Pastoral Comments
== END 2019-06-29 14:30 | disposition short-term general hospital (02) ==
LOC: ED 16:02 → MS3 19:54
PROVIDERS: Admitting Provider Family Medicine; Emergency Provider Emergency Medicine; Family Provider Family Medicine; PCP Family Medicine; Referring Provider Family Medicine; Visit Provider Family Medicine
DX: Z51.11 Encounter for antineoplastic chemotherapy (principal); C90.00 Multiple myeloma not having achieved remission; M47.816 Spondylosis without myelopathy or radiculopathy, lumbar region; D46.20 Refractory anemia with excess of blasts, unspecified; G89.29 Other chronic pain; F41.9 Anxiety disorder, unspecified; F32.9 Major depressive disorder, single episode, unspecified; E78.5 Hyperlipidemia, unspecified; Z79.899 Other long term (current) drug therapy; Z79.01 Long term (current) use of anticoagulants
CPT/HCPCS: 36415; 72158; 80048; 81001; 82784; 83735; 83883; 84100; 84165; 85025; 86334; 87040; 87086; 96361; 96365; 96366; 96367; 96372; 96375; 96376; 96401; 99218; 99285; A9575; J7030; J7040; A4216; G0378; J0696; J9041

== ENCOUNTER 2019-07-12 18:42 | Inpatient (IN) | payer MEDICARE, OTHER, SELFPAY ==
[2019-06-28 19:41] VITALS: BMI 27.3
[2019-07-12 18:47] VITALS: BP 140/70; PULSE 88; RESP 18; TEMP 37; O2SAT 97
[2019-07-12 20:06] VITALS: BMI 25.0
[2019-07-12 20:15] VITALS: BMI 25.1
--- NOTE | 2019-07-12 20:29 | HP.PCM_ITS ---
Problem List (1) Debility Status: Acute (2) Epidural hematoma Status: Acute (3) Cauda equina syndrome Status: Acute (4) Hypotension Status: Acute (5) Hypophosphatemia Status: Acute (6) Essential tremor Status: Chronic (7) Myelodysplasia (myelodysplastic syndrome) Status: Chronic (8) Low back pain Status: Chronic (9) Vascular dementia Status: Chronic (10) Hypertension Status: Chronic (11) Neuropathic pain Status: Chronic (12) Left hemiparesis Status: Chronic (13) Depression Status: Chronic (14) Anxiety Status: Chronic (15) Stroke Status: Chronic (16) HLD (hyperlipidemia) Status: Chronic Qualifiers: (17) Myeloma Status: Chronic Qualifiers: (18) Meningioma Status: Chronic History of Present Illness Date of Admission: 07/12/19 Chief Complaint: Here for rehabilitation, strengthening, prior to discharge home with . The patient is a 74 year old Female with below past medical presented to [facility] 06/28/2019 with back pain. Chronic low back pain, Multiple myeloma undergoing chemotherapy. Underwent facet joint injection 1 day prior. Fentanyl 50MCG IV x 2 doses given. Dilaudid 0.5MG given, patient refused X-rays of her back. Steroids given, unable to walk. 06/28/2019 Admit to Hospital. Bilateral lower extremity paresthesias, difficult moving toes. Pain medications, NSAIDS, steroids, muscle relaxants given. Consult Dr. Jean. Revlimid for multiple myeloma, stopped due to increased risk of strokes. Patient had 2 recent strokes. 06/29/2019 MRI lumbar spine showed large epidural hematoma. 06/29/2019 Transfer to [facility]. Vancomycin given prior to transfer, concern for epidural abscess. 06/29/2019 Admit to [facility]. Dilaudid 0.5MG IV given for pain. Patient incontinent of urine, Orthopedics Team took her immediately to OR, concern for cauda equina syndrome. 06/29/2019 Ortho performed posterior lumbar decompression L1 - S1, with hematoma evacuation. Norepinephrine postoperatively for hypotension. Norepinephrine eventually weaned. Stress dose steroids started. Stress dose steroids weaned. Strokes while on Eliquis, change to twice daily therapeutic dose Lovenox. Phosphorus replaced. 07/12/2019 Admit to TCU with debility, here for rehabilitation, strengthening, prior to discharge home with . Past Medical History Past Medical History (Chronic Problems): Chronic Problems (Last Reviewed 06/28/19 @ 11:52 by Anika Choudhary) Stroke (Chronic) HLD (hyperlipidemia) (Chronic) Anxiety and depression (Chronic) Essential tremor (Chronic) Myelodysplasia (myelodysplastic syndrome) (Chronic) Low back pain (Chronic) Vascular dementia (Chronic) Hypertension (Chronic) Neuropathic pain (Chronic) Left hemiparesis (Chronic) Depression (Chronic) Anxiety (Chronic) Cerebrovascular disease (Chronic) Macrocytosis (Chronic) MDS (myelodysplastic syndrome), low grade (Chronic) Myeloma (Chronic) Lung nodule (Chronic) Left upper lobe, May 2018 Liver lesion, right lobe (Chronic) Negative biopsy for malignancy June 29, 2018 Anemia (Chronic) Tremor (Chronic) Cognitive dysfunction (Chronic) Meningioma (Chronic) Medical History: Medical History (Last Reviewed 06/28/19 @ 11:52 by Anika Choudhary) Cellulitis L03.90 left eye 1-2018 History of hysterectomy Z90.710 Meningioma D32.9 Gamma knife at [facility] ~2000 Osteopenia M85.80 Stroke I63.9 X2 - HOSPITALIZATION FOR 5 DAYS Allergies morphine Adverse Reaction (Severe, Verified 06/28/19 15:22) Nausea Home Medications: Ambulatory Orders Medication Instructions Recorded Enoxaparin [Lovenox] 60 mg SUBCUT Q12@0600,1800 05/31/19 Acyclovir [Zovirax] 400 mg PO BID 06/28/19 Atorvastatin Calcium [Lipitor] 80 mg PO QHS 06/28/19 Escitalopram Oxalate [Lexapro] 10 mg PO DAILY 06/28/19 Gabapentin [Neurontin] 200 mg PO BID 06/28/19 Hydrocodone/Acetaminophen 1 tab PO Q4H PRN PRN 06/28/19 [Hydrocodone-Acetamin 5-325 mg] Acetaminophen 1,000 mg PO Q8H 07/12/19 Albuterol Sulfate [Albuterol 2 puff IH Q4H PRN PRN 07/12/19 Sulfate Hfa] Atenolol 25 mg PO DAILY 07/12/19 Docusate Sodium [Colace] 100 mg PO BID 07/12/19 Ipratropium/Albuterol Sulfate 3 ml INHALATION Q4H.RT 07/12/19 [Duoneb] Lidocaine [Lidocaine Pain Relief] 1 ea TP DAILY@1000 07/12/19 Oxycodone [Oxyir] 5 mg PO Q4H PRN PRN 07/12/19 Pantoprazole Sodium [Protonix] 40 mg PO DAILY 07/12/19 Sennosides/Docusate Sodium 1 tab PO BID 07/12/19 [Senna-S Tablet] Surgical History: Surgical History (Last Reviewed 06/28/19 @ 11:52 by Anika Choudhary) History of cholecystectomy Z90.49 Surgical History: cholecystectomy, hysterectomy, tonsillectomy, - - Gamma knife meningioma. 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 Paternal Family History: Family History (Last Reviewed 06/28/19 @ 11:52 by Anika Choudhary) Mother Breast cancer Sister Breast cancer Aunt Breast cancer Daughter History of malignant melanoma Father Brain cancer Brother Lung cancer History Items: Cancer - Father with history of brain cancer. Review of Systems Constitutional: Reports: Weakness. Denies: Chills, Fever, Weight Change HEENT: Denies: Head Aches, Sinus Congestion, Sinus Drainage Cardiovascular: Denies: Chest Pain, Palpitations Respiratory: Denies: Cough, Shortness of breath at rest, Sputum production Gastrointestinal: Denies: Abdominal Pain, Nausea, Vomiting Genitourinary: Reports: Retention Musculoskeletal: Denies: Joint Pain, Joint Tenderness Skin: Denies: Rash, Wounds Neurological: Denies: Numbness, Tingling, Focal weakness Psychiatric: Denies: Anxiety, Depression, Homicidal Ideations, Suicidal Ideations Hematologic/ Lymphatic: Denies: Easy Bruising, Easy Bleeding VTE Information - Inpt Only VTE Present on Admission: No VTE Mechan Device Prophylaxis: Knee High RICKIE Hose VTE Pharm Prophylaxis ordered?: No Reason prophylaxis not ordered:: Treatment Not Indicated Patient Problems: Active and Suspected Problems (Last Reviewed 06/28/19 @ 11:52 by Anika Choudhary) Debility (Acute) Epidural hematoma (Acute) Cauda equina syndrome (Acute) Hypotension (Acute) Hypophosphatemia (Acute) - Physical Exam Vitals/I&O's: Vital Signs Temp Pulse Resp BP Pulse Ox 98.6 F 88 18 140/70 H 97 07/12/19 18:47 07/12/19 18:47 07/12/19 18:47 07/12/19 18:47 07/12/19 18:47 Oxygen Delivery Method Room Air Weight: 66.224 kg Body Mass Index (BMI) 25.0 Finger Stick Blood Glucose 101 General: Alert, Oriented x3, Cooperative HEENT: Atraumatic, PERRLA, EOMI, Normocephalic Neck: Supple, No JVD, Negative Carotid Bruits Lungs: Clear to auscultation, Normal air movement Cardiovascular: Regular rate, No murmurs Abdomen: Bowel Sounds Present, Soft, Non Tender Extremities: No edema, Capillary Refill Less than 3 Seconds Skin: No rashes, No breakdown Musculoskeletal: No Tenderness to Palpation of Joints or Extremities Neurological: Cranial nerves II-XII grossly intact, - - Bilateral lower extremity weakness. Psych/Mental Status: Normal Affect, Appropriate Current Medications Acetaminophen (Tylenol) 1,000 mg PO TID [place] Hydrocodone Bitart/Acetaminophen (Magnolia 5mg-325mg) tablet PO Q6H PRN PRN PRN Reason: Pain Score 4-5/10 Acyclovir (Zovirax) 400 mg PO BID [facility] Albuterol Sulfate (Ventolin Hfa (Sp)) 2 puff INHALATION Q4H PRN PRN PRN Reason: WHEEZING Albuterol/Ipratropium (Duoneb) 3 ml INHALATION Q4H.RT PRN PRN Reason: SHORTNESS OF BREATH Atenolol (Tenormin (Beta Joann)) 25 mg PO DAILY [facility] Atorvastatin Calcium (Lipitor) 80 mg PO QHS [facility] Docusate Sodium (Colace) 100 mg PO BID [place] Enoxaparin Sodium (Lovenox) 60 mg SC Q12@0600,1800 [facility] Escitalopram Oxalate (Lexapro) 10 mg PO DAILY [facility]) [facility] Non-Formulary Medication (Lidocaine [Lidocaine Pain Relief]) 1 ea TP DAILY@1000 [facility] Oxycodone HCl (Oxyir) 5 mg PO Q4H PRN PRN PRN Reason: Pain Score 4-5/10 Pantoprazole Sodium (Protonix) 40 mg PO DAILY [facility] Senna/Docusate Sodium (Senokot-S, Kassy-Colace) tablet PO BID [facility] Tuberculin PPD (Tubersol, Aplisol, Ppd) 5 tu ID X1 ONE Stop: 07/13/19 10:01 Tuberculin PPD (Tubersol, Aplisol, Ppd) 5 tu ID X1 ONE Stop: 07/20/19 10:01 Assessment/Plan All Active Problems (Last Reviewed 06/28/19 @ 11:52 by Anika Choudhary) Chemotherapy management, encounter for (Acute) Intractable back pain (Acute) Debility (Acute) Epidural hematoma (Acute) Cauda equina syndrome (Acute) Hypotension (Acute) Hypophosphatemia (Acute) PFO (patent foramen ovale) (Ruled-out) 74 year old female with below past medical history significant for low back pain, multiple myeloma, stroke, hospitalized for large epidural hematoma, underwent posterior lumbar decompression with hematoma evacuation 06/29/2019, complicated by hypotension, hypophosphatemia, admitted to TCU with debility, here for rehabilitation, strengthening, prior to discharge home with . * Debility - PT/OT. * Pain - Tylenol 1000MG TID, Tramadol 50MG Q6H PRN pain (1-5), Oxycodone 5MG Q4H PRN pain (6-10), Lidoderm patch 1 patch daily. * Bowel - Miralax 17GM daily, Senna/colace 2 tablets BID, Dulcolax 10MG daily PRN, Soap suds enema ineffective, Rx Magnesium Citrate 300ML PO x 1 bottle. * Adult immunization - Administer Prevnar 13, Pneumovax 23, Fluzone as necessary. * DVT prophylaxis - Not necessary, already anticoagulated. * Myelodysplastic syndrome - Acyclovir 400MG BID antiviral prophylaxis. * Multiple Myeloma - Revlimid stopped due to increasing risk of strokes. * Shortness of breath - Duoneb 3ML Q4H PRN, Albuterol 2 puffs Q4H PRN. * Essential tremor - Atenolol 25MG daily. * Hyperlipidemia - High intensity Atorvastatin 80MG daily due to recent strokes x 2. * Stroke with left hemiparesis - Failed Eliquis, on Lovenox 60MG SC Q12H. * Depression - Lexapro 10MG daily, stable chronic care home use, GDR contraindicated. * Neuropathic pain - Gabapentin 200MG BID. * GERD - Pantoprazole 40MG daily. * Urinary retention - Indwelling botello catheter, voiding trials TCU Day #3, consider bethanechol.
[2019-07-12] MEDS: Acyclovir 200 MG Capsule 400 MG PO (22:28)
[2019-07-12] MEDS: Gabapentin 100 MG Capsule 200 MG PO (22:28)
[2019-07-12] MEDS: Enoxaparin 60 MG/0.6 ML Syringe SC (22:28)
[2019-07-12] MEDS: Atorvastatin Calcium 80 MG Tablet PO (22:28)
[2019-07-12] MEDS: Acetaminophen 500 MG Tablet 1000 MG PO (22:28)
[2019-07-13] MEDS: Acyclovir 200 MG Capsule 400 MG PO ×2 (05:33→17:22)
[2019-07-13] MEDS: Polyethylene Glycol 3350 17 GM PACKET PO (05:33)
[2019-07-13] MEDS: Pantoprazole Sodium 40 MG Tablet PO (05:33)
[2019-07-13] MEDS: Gabapentin 100 MG Capsule 200 MG PO ×2 (05:33→17:16)
[2019-07-13] MEDS: Senna/Docusate Sodium 1 Tablet 2 TABLET PO (05:34)
[2019-07-13] MEDS: Atenolol 25 MG Tablet PO (05:34)
[2019-07-13] MEDS: Escitalopram Oxalate 10 MG Tablet PO (05:34)
[2019-07-13] MEDS: Acetaminophen 500 MG Tablet 1000 MG PO ×3 (05:34→20:57)
[2019-07-13] MEDS: Enoxaparin 60 MG/0.6 ML Syringe SC ×2 (05:34→17:16)
[2019-07-13 05:37] LABS: Absolute Neutrophil Count 12.7 X10^3/uL (2.0-7.7); Basophil# 0.07 X10^3/uL; Basophil% 0.4 % (0-1); Eosinophil# 0.22 X10^3/uL; Eosinophils% 1.1 % (0-5); Hematocrit 28.7 % (37-47); Hemoglobin 9.4 g/dL (12.0-15.0); Lymphocyte % 7.1 % (19-41); Mean Corp Hgb Conc 32.8 g/dL (32-36); Mean Corpuscular Hgb 34.4 pg (27.0-32.0); Mean Corpuscular Volume 105.1 fL (81-99); Mean Platelet Vol. 11.7 fl (6.2-12.0); Monocyte# 4.43 X10^3/uL; Monocyte% 22.4 % (0-10); NRBC Flagged by Analyzer 0 % (0-5); Neutrophil # 12.69 X10^3/uL (2.7-7.7); Neutrophil % 64.1 % (47-70); POSITIVE DIFFERENTIAL YES; Platelet Count 149 K/mm3 (150-450); RBC Distribution Width CV 14.6 % (11.6-14.6); RBC Distribution Width SD 54.3 fl (35.1-43.9); Red Blood Count 2.73 M/mm3 (4.2-5.4); White Blood Count 19.8 K/mm3 (4.4-11.0)
[2019-07-13] MEDS: Menthol/Lanolin/Calamine/Znox 113 GM Tube 1 APPLIC TOPICAL (05:38)
[2019-07-13] MEDS: Nystatin Powder 15gm Bottle 1 APPLIC TOPICAL ×2 (05:38→20:46)
[2019-07-13 05:47] LABS: Differential Indicated SCAN CRITERIA MET
[2019-07-13 05:51] LABS: Anion Gap 5 (5-15); BUN 12 mg/dL (7-18); BUN/Creat Ratio 16.2 RATIO (10-20); Calcium,Total 8.7 mg/dL (8.5-10.1); Chloride 110 mmol/L (98-107); Creatinine, Serum 0.74 mg/dL (0.55-1.02); EST Glomerular Filtration Rate 81 mL/min (>60); Est Glom Filt Rate - Afr Amer 98 mL/min (>60); Estimated Creatinine Clearance 41.97 ml/min; Glucose 127 mg/dL (74-106); Potassium 3.6 mmol/L (3.5-5.1); Sodium Level 141 mmol/L (136-145)
--- NOTE | 2019-07-13 06:00 | NURSING ---
Addendum entered by Tonia Huddleston 07/13/19 09:45: PT had some stool with liquid and hard pieces. Dr Steven ordered mag citrate x1. Will administer after pt done with therapy sessions today. Pt heavy 3 assist to BSC and back to chair. Pt unable to stand, has no feeling from waist down. Addendum entered by Paty Greene 07/13/19 06:55: SSE administered, pt tolerated well. Will continue to monitor and asses. Original Note: Pt c/o abd pain, feeling nauseated. Pt on BSC having small hard chunks of fecal matter. Dr Steven notified N.O. SSE.
[2019-07-13 07:45] VITALS: RESP 16
[2019-07-13] MEDS: oxyCODONE 5 MG Tablet PO (07:58)
[2019-07-13] MEDS: traMADol 50 MG Tablet PO ×2 (09:38→16:00)
[2019-07-13] MEDS: Lidocaine 5% Patch 1 PATCH TOPICAL (09:59)
[2019-07-13] MEDS: Tuberculin,Purif.prot.deriv. 50 TU/ML Vial 5 ML ID (10:01)
[2019-07-13] MEDS: Magnesium Citrate 300 ML PO (11:18)
--- NOTE | 2019-07-13 13:47 | NURSING ---
PT c/o abd pain, but pt did receive SSE this AM and then mag citrate d/t constipation. Pt has had some liquid and hard pieces of stool. Dr Steven notified, new order abdominal xray
--- NOTE | 2019-07-13 13:50 | RAD_ITS ---
STUDY: X-RAY - ABDOMEN/PELVIS REASON FOR EXAM: Female, 74 years old. Abdominal pain TECHNIQUE: 2 views of the abdomen COMPARISON: None. FINDINGS: Normal visualized lung bases. Surgical hannah in the midline abdomen. There is an unremarkable bowel gas pattern. There is no demonstrated free abdominal air. Normal soft tissue structures. Degenerative changes of the visualized lumbar spine are noted. RAD/Abdomen Single View IMPRESSION: Nonobstructive bowel gas pattern. No evidence for free air. Electronically Signed: Duc Dalton, at 19:23 EST Tel , Service support ,
[2019-07-13 16:00] VITALS: BP 114/64; PULSE 83; RESP 16; TEMP 37; O2SAT 98
--- NOTE | 2019-07-13 17:45 | NURSING ---
dr casillas reviewed abd xray, no new orders.
[2019-07-13] MEDS: Atorvastatin Calcium 80 MG Tablet PO (20:57)
[2019-07-14] MEDS: oxyCODONE 5 MG Tablet PO (00:08)
[2019-07-14] MEDS: Ondansetron ODT 4 MG Tablet PO (01:21)
[2019-07-14] MEDS: traMADol 50 MG Tablet PO (02:32)
--- NOTE | 2019-07-14 04:09 | NURSING ---
Addendum entered by Paty Greene 07/14/19 06:12: Pt resting with eyes closed peacefully, spouse at bedside. will continue to monitor. Addendum entered by Paty Greene 07/14/19 05:37: Pt reports improvement in pain 02/06 from 06/08. warm blanket to incision. spouse at bedside. pt reports she feels she can fall asleep. Will monitor. Original Note: Pt provided carmelo tylenol, prn oxycodone, prn ultram. Pt toileted, pt repositioned several times. Pt provided with emotional support, 1:1 communication and much TLC. Pt continues to c/o pain after several interventions completed and tearful. Dr Steven notified N.O. entered. Will continue to monitor and asses.
[2019-07-14] MEDS: oxyCODONE 5 MG Tablet 10 MG PO ×3 (04:26→21:39)
[2019-07-14] MEDS: Acetaminophen 500 MG Tablet 1000 MG PO ×3 (04:28→21:40)
[2019-07-14] MEDS: Atenolol 25 MG Tablet PO (04:28)
[2019-07-14] MEDS: Escitalopram Oxalate 10 MG Tablet PO (04:28)
[2019-07-14] MEDS: Pantoprazole Sodium 40 MG Tablet PO (04:28)
[2019-07-14] MEDS: Enoxaparin 60 MG/0.6 ML Syringe SC ×2 (04:31→17:40)
[2019-07-14] MEDS: Nystatin Powder 15gm Bottle 1 APPLIC TOPICAL ×2 (04:31→21:39)
[2019-07-14] MEDS: Menthol/Lanolin/Calamine/Znox 113 GM Tube 1 APPLIC TOPICAL (04:31)
[2019-07-14] MEDS: Acyclovir 200 MG Capsule 400 MG PO ×2 (05:31→17:36)
--- NOTE | 2019-07-14 07:49 | PCM.PN.RX ---
<JamestimDanny sharmaesperanza Syed - Last Filed: 07/14/19 07:49> Progress Note - Pharmacy Subjective: TCU Admission Objective: Allergies morphine Adverse Reaction (Severe, Verified 06/28/19 15:22) Nausea Current Medications Generic Name Dose Route Start Last Admin Trade Name Freq PRN Reason Stop Dose Admin Acetaminophen 1,000 mg 07/12/19 22:00 07/14/19 04:28 Tylenol PO 1,000 mg TID [facility] Administration Acyclovir 400 mg 07/12/19 22:30 07/14/19 05:31 Zovirax PO 400 mg BID [place] Administration Albuterol Sulfate 2 puff 07/12/19 19:42 Ventolin Hfa (Sp) INHALATION Q4H PRN PRN WHEEZING Albuterol/Ipratropium 3 ml 07/12/19 19:42 Duoneb INHALATION Q4H.RT PRN SHORTNESS OF BREATH Atenolol 25 mg 07/13/19 06:00 07/14/19 04:28 Tenormin (Beta Joann) PO 25 mg DAILY [facility] Administration Atorvastatin Calcium 80 mg 07/12/19 22:00 07/13/19 20:57 Lipitor PO 80 mg QHS [facility] Administration Bisacodyl 10 mg 07/12/19 20:51 Dulcolax PO DAILY PRN Constipation Calamine/Phenol 1 applic 07/12/19 22:39 07/14/19 04:31 Calmoseptine Ointment TOPICAL 1 applicatio BID PRN PRN Administration erythema Protocol Enoxaparin Sodium 60 mg 07/12/19 22:15 07/14/19 04:31 Lovenox SC 60 mg Q12@0600,1800 [facility] Administration Escitalopram Oxalate 10 mg 07/13/19 06:00 07/14/19 04:28 Lexapro PO 10 mg DAILY [facility] Administration Gabapentin 200 mg 07/12/19 22:00 07/13/19 17:16 Neurontin PO 07/27/19 17:01 200 mg BIDCM [place] Administration Lidocaine 1 patch 07/13/19 10:00 07/13/19 09:59 Lidoderm Patch TOPICAL 1 patch DAILY@1000 [facility] Administration Multi-Ingredient Cream 1 applic 07/13/19 22:00 07/13/19 20:46 Eucerin TOPICAL 1 applicatio QHS [facility] Administration Protocol Nystatin 1 applic 07/13/19 06:00 07/14/19 04:31 Mycostatin Powder TOPICAL 1 applicatio 0600,2200 [facility] Administration Protocol Ondansetron HCl 4 mg 07/13/19 17:38 07/14/19 01:21 Zofran Odt PO 4 mg Q8H PRN PRN Administration NAUSEA Oxycodone HCl 10 mg 07/14/19 04:09 07/14/19 04:26 Oxyir PO 10 mg Q4H PRN PRN Administration Pain Score 6-10/10 Pantoprazole Sodium 40 mg 07/13/19 06:00 07/14/19 04:28 Protonix PO 40 mg DAILY [facility] Administration Polyethylene Glycol 17 gm 07/13/19 06:00 07/14/19 04:30 Miralax PO Not Given DAILY [facility] Senna/Docusate Sodium 2 tablet 07/13/19 06:00 07/14/19 04:30 Senokot-S, Kassy-Colace PO Not Given BID [facility] Tramadol HCl 50 mg 07/12/19 20:51 07/14/19 02:32 Ultram PO 50 mg Q6H PRN PRN Administration Pain Score 1-5/10 Tuberculin PPD 5 tu 07/20/19 10:00 Tubersol, Aplisol, Ppd ID 07/20/19 10:01 X1 ONE Problem List (Last Reviewed 06/28/19 @ 11:52 by Anika Choudhary) Debility (Acute) Epidural hematoma (Acute) Cauda equina syndrome (Acute) Hypotension (Acute) Hypophosphatemia (Acute) Essential tremor (Chronic) Myelodysplasia (myelodysplastic syndrome) (Chronic) Low back pain (Chronic) Vascular dementia (Chronic) Hypertension (Chronic) Neuropathic pain (Chronic) Left hemiparesis (Chronic) Depression (Chronic) Anxiety (Chronic) Vital Signs Temp Pulse Resp BP Pulse Ox 98.6 F 83 16 114/64 98 07/13/19 16:00 07/13/19 16:00 07/13/19 16:00 07/13/19 16:00 07/13/19 16:00 Oxygen Delivery Method Room Air Weight: 66.224 kg Body Mass Index (BMI) 25.0 Finger Stick Blood Glucose 101 Sodium 141 mmol/L (136-145) 07/13/19 05:10 Potassium 3.6 mmol/L (3.5-5.1) 07/13/19 05:10 Chloride 110 mmol/L (98-107) H 07/13/19 05:10 Carbon Dioxide 26.0 mmol/L (21.0-32.0) 07/13/19 05:10 Anion Gap 5 (5-15) 07/13/19 05:10 BUN 12 mg/dL (7-18) 07/13/19 05:10 Creatinine 0.74 mg/dL (0.55-1.02) 07/13/19 05:10 Est GFR (MDRD) Af Amer 98 mL/min (>60) 07/13/19 05:10 Est GFR (MDRD) Non-Af 81 mL/min (>60) 07/13/19 05:10 BUN/Creatinine Ratio 16.2 RATIO (10-20) 07/13/19 05:10 Glucose 127 mg/dL (74-106) H 07/13/19 05:10 Assessment/Plan: 1) Pain APAP, gabapentin thru 07/27, lidocaine patch, oxycodone for pain 6-10, tramadol for pain 1-5. Continue to monitor daily pain scores. 2) Stroke Enoxaparin. Continue to monitor s/s stroke/bleeding. 3) HLD Atorvastatin. Continue to monitor lipids. 4) Tremor Atenolol. Continue to monitor BP/HR, renal function. 5) Myelodysplastic syndrome Acyclovir for antiviral ppx. Continue to monitor clinically. 6) GI Pantoprazole, ondansetron prn. Continue to monitor prn medication use, for s/s GI distress. Psychotropic Medications: 7) Depression Escitalopram. Continue to monitor s/s depression. Unnecessary Medications: None Bowel Regimen: 8) Senna/s, PEG, prn bisacodyl. Continue to monitor prn medication use, for constipation/diarrhea. Date of Note:: 07/14/19 - Provider Comments Provider responsibility: Provider responsible to enter orders to implement recommendations <Jovanni Steven Chi - Last Filed: 07/14/19 08:15> Progress Note - Pharmacy Subjective: [] Objective: Allergies morphine Adverse Reaction (Severe, Verified 06/28/19 15:22) Nausea Current Medications Generic Name Dose Route Start Last Admin Trade Name Freq PRN Reason Stop Dose Admin Acetaminophen 1,000 mg 07/12/19 22:00 07/14/19 04:28 Tylenol PO 1,000 mg TID [facility] Administration Acyclovir 400 mg 07/12/19 22:30 07/14/19 05:31 Zovirax PO 400 mg BID [facility] Administration Albuterol Sulfate 2 puff 07/12/19 19:42 Ventolin Hfa (Sp) INHALATION Q4H PRN PRN WHEEZING Albuterol/Ipratropium 3 ml 07/12/19 19:42 Duoneb INHALATION Q4H.RT PRN SHORTNESS OF BREATH Atenolol 25 mg 07/13/19 06:00 07/14/19 04:28 Tenormin (Beta Joann) PO 25 mg DAILY [facility] Administration Atorvastatin Calcium 80 mg 07/12/19 22:00 07/13/19 20:57 Lipitor PO 80 mg QHS [facility] Administration Bisacodyl 10 mg 07/12/19 20:51 Dulcolax PO DAILY PRN Constipation Calamine/Phenol 1 applic 07/12/19 22:39 07/14/19 04:31 Calmoseptine Ointment TOPICAL 1 applicatio BID PRN PRN Administration erythema Protocol Enoxaparin Sodium 60 mg 07/12/19 22:15 07/14/19 04:31 Lovenox SC 60 mg Q12@0600,1800 [facility] Administration Escitalopram Oxalate 10 mg 07/13/19 06:00 07/14/19 04:28 Lexapro PO 10 mg DAILY [facility] Administration Gabapentin 200 mg 07/12/19 22:00 07/13/19 17:16 Neurontin PO 07/27/19 17:01 200 mg BIDCM [place] Administration Lidocaine 1 patch 07/13/19 10:00 07/13/19 09:59 Lidoderm Patch TOPICAL 1 patch DAILY@1000 [facility] Administration Multi-Ingredient Cream 1 applic 07/13/19 22:00 07/13/19 20:46 Eucerin TOPICAL 1 applicatio QHS [facility] Administration Protocol Nystatin 1 applic 07/13/19 06:00 07/14/19 04:31 Mycostatin Powder TOPICAL 1 applicatio 0600,2200 [facility] Administration Protocol Ondansetron HCl 4 mg 07/13/19 17:38 07/14/19 01:21 Zofran Odt PO 4 mg Q8H PRN PRN Administration NAUSEA Oxycodone HCl 10 mg 07/14/19 04:09 07/14/19 04:26 Oxyir PO 10 mg Q4H PRN PRN Administration Pain Score 6-1010 Pantoprazole Sodium 40 mg 07/13/19 06:00 07/14/19 04:28 Protonix PO 40 mg DAILY [facility] Administration Polyethylene Glycol 17 gm 07/13/19 06:00 07/14/19 04:30 Miralax PO Not Given DAILY [facility] Senna/Docusate Sodium 2 tablet 07/13/19 06:00 07/14/19 04:30 Senokot-S, Kassy-Colace PO Not Given BID [facility] Tramadol HCl 50 mg 07/12/19 20:51 07/14/19 02:32 Ultram PO 50 mg Q6H PRN PRN Administration Pain Score 1-10 Tuberculin PPD 5 tu 07/20/19 10:00 Tubersol, Aplisol, Ppd ID 07/20/19 10:01 X1 ONE Problem List (Last Reviewed 06/28/19 @ 11:52 by Anika Choudhary) Debility (Acute) Epidural hematoma (Acute) Cauda equina syndrome (Acute) Hypotension (Acute) Hypophosphatemia (Acute) Essential tremor (Chronic) Myelodysplasia (myelodysplastic syndrome) (Chronic) Low back pain (Chronic) Vascular dementia (Chronic) Hypertension (Chronic) Neuropathic pain (Chronic) Left hemiparesis (Chronic) Depression (Chronic) Anxiety (Chronic) Vital Signs Temp Pulse Resp BP Pulse Ox 98.6 F 83 16 114/64 98 07/13/19 16:00 07/13/19 16:00 07/13/19 16:00 07/13/19 16:00 07/13/19 16:00 Oxygen Delivery Method Room Air Weight: 66.224 kg Body Mass Index (BMI) 25.0 Finger Stick Blood Glucose 101 Sodium 141 mmol/L (136-145) 07/13/19 05:10 Potassium 3.6 mmol/L (3.5-5.1) 07/13/19 05:10 Chloride 110 mmol/L (98-107) H 07/13/19 05:10 Carbon Dioxide 26.0 mmol/L (21.0-32.0) 07/13/19 05:10 Anion Gap 5 (5-15) 07/13/19 05:10 BUN 12 mg/dL (7-18) 07/13/19 05:10 Creatinine 0.74 mg/dL (0.55-1.02) 07/13/19 05:10 Est GFR (MDRD) Af Amer 98 mL/min (>60) 07/13/19 05:10 Est GFR (MDRD) Non-Af 81 mL/min (>60) 07/13/19 05:10 BUN/Creatinine Ratio 16.2 RATIO (10-20) 07/13/19 05:10 Glucose 127 mg/dL (74-106) H 07/13/19 05:10 Assessment/Plan: Psychotropic Medications: Unnecessary Medications: Bowel Regimen: - Provider Comments Provider responsibility: Provider responsible to enter orders to implement recommendations Provider Comments to Recommendations by Pharmacy: Agree
[2019-07-14] MEDS: Gabapentin 100 MG Capsule 200 MG PO ×2 (09:07→17:39)
[2019-07-14] MEDS: Lidocaine 5% Patch 1 PATCH TOPICAL (11:08)
--- NOTE | 2019-07-14 15:20 | CHAPLAIN ---
Type of Pastoral Visit _x__ Initial Visit ___ Follow-up Visit ___ On-call Visit ___ General Patient Visit ___ Spiritual Assessment ___ Family Conference ___ Bereavement ___ Rapid Response ___ Code Blue ___ Other (describe below) Pastoral Care Referral From _x__ Patient ___ Family ___ Nurse ___ Physician ___ Apple Packing Header ___ Area Operations Manager ___ Other (describe below) Sacrament/Intervention _x__ Active listening ___ Anointing ___ Buddhism ___ Bereavement ___ Communion ___ Orly exploration ___ ___ Life review _x__ Prayer ___ Reconciliation ___ Sacrament of Sick ___ Supportive presence ___ Wedding ___ Other (describe below) Pastoral Comments
[2019-07-14] MEDS: Senna/Docusate Sodium 1 Tablet 2 TABLET PO (17:38)
[2019-07-14] MEDS: Atorvastatin Calcium 80 MG Tablet PO (21:40)
[2019-07-15] MEDS: Polyethylene Glycol 3350 17 GM PACKET PO (03:56)
[2019-07-15] MEDS: oxyCODONE 5 MG Tablet 10 MG PO (03:57)
[2019-07-15] MEDS: Senna/Docusate Sodium 1 Tablet 2 TABLET PO (03:57)
[2019-07-15] MEDS: Atenolol 25 MG Tablet PO (03:58)
[2019-07-15] MEDS: Acyclovir 200 MG Capsule 400 MG PO ×2 (03:58→17:54)
[2019-07-15] MEDS: Pantoprazole Sodium 40 MG Tablet PO (03:58)
[2019-07-15] MEDS: Enoxaparin 60 MG/0.6 ML Syringe SC ×2 (03:59→17:55)
[2019-07-15] MEDS: Escitalopram Oxalate 20 MG Tablet PO (03:59)
[2019-07-15] MEDS: Nystatin Powder 15gm Bottle 1 APPLIC TOPICAL ×2 (03:59→21:37)
[2019-07-15] MEDS: Acetaminophen 500 MG Tablet 1000 MG PO ×3 (04:00→21:34)
--- NOTE | 2019-07-15 04:09 | NURSING ---
0400- pt calling out loudly states her feet feel like they are asleep and her lower back is very painful. Pt repositioned. BLE weak but moving per baseline. Can feel RNs touch on bilateral feet and pedal pulses intact. PRN OxyIR administered. Pt states she wakes up throughout the night and gets confused about where she is and panics. emotional support provided and [facility] added to patient's white board as a reminder. Pt asking for sleep medication, oriented to time of day (4am) and pt notified that a note will be left for Dr. Steven re: sleep medication for future use.
[2019-07-15] MEDS: Gabapentin 100 MG Capsule 200 MG PO ×2 (08:17→17:55)
[2019-07-15] MEDS: Lidocaine 5% Patch 1 PATCH TOPICAL (09:20)
[2019-07-15 15:32] VITALS: BP 103/70; PULSE 73; RESP 18; TEMP 36.8; O2SAT 94
[2019-07-15] MEDS: traMADol 50 MG Tablet PO (21:34)
[2019-07-15] MEDS: Atorvastatin Calcium 80 MG Tablet PO (21:35)
[2019-07-15] MEDS: Menthol/Lanolin/Calamine/Znox 113 GM Tube 1 APPLIC TOPICAL (21:38)
[2019-07-16] MEDS: oxyCODONE 5 MG Tablet 10 MG PO ×3 (03:17→22:12)
[2019-07-16] MEDS: Acetaminophen 500 MG Tablet 1000 MG PO ×3 (05:17→22:15)
[2019-07-16] MEDS: Senna/Docusate Sodium 1 Tablet 2 TABLET PO ×2 (05:17→17:44)
[2019-07-16] MEDS: Acyclovir 200 MG Capsule 400 MG PO ×2 (05:17→17:43)
[2019-07-16] MEDS: Polyethylene Glycol 3350 17 GM PACKET PO (05:17)
[2019-07-16] MEDS: Atenolol 25 MG Tablet PO (05:18)
[2019-07-16] MEDS: Pantoprazole Sodium 40 MG Tablet PO (05:18)
[2019-07-16] MEDS: Escitalopram Oxalate 20 MG Tablet PO (05:18)
[2019-07-16] MEDS: Menthol/Lanolin/Calamine/Znox 113 GM Tube 1 APPLIC TOPICAL (05:18)
[2019-07-16] MEDS: Enoxaparin 60 MG/0.6 ML Syringe SC ×2 (05:19→17:45)
[2019-07-16] MEDS: Nystatin Powder 15gm Bottle 1 APPLIC TOPICAL ×2 (05:19→22:18)
[2019-07-16] MEDS: traMADol 50 MG Tablet PO (05:26)
[2019-07-16] MEDS: Gabapentin 100 MG Capsule 200 MG PO ×2 (08:44→17:44)
[2019-07-16] MEDS: Lidocaine 5% Patch 1 PATCH TOPICAL (08:47)
--- NOTE | 2019-07-16 10:28 | NURSING ---
PT ASKED THIS NURSE ABOUT A SLEEPING PILL FOR TONIGHT. PT STATED I ASKED FOR IT YESTERDAY AND NEED IT TONIGHT I CAN NOT SLEEP. THIS NURSE REPORTED IT TO RN YESTERDAY. ASKED PT IF SHE WOULD LIKE TO SEE NAYAN NUÑEZ,PT STATED YES. THIS NURSE CALLED NAYAN NUÑEZ TO ROOM.
[2019-07-16 10:40] VITALS: PULSE 68; RESP 18; O2SAT 93
--- NOTE | 2019-07-16 10:47 | NURSING ---
LANA Syed/Teri AT 10:30 AM PER
[2019-07-16 15:40] VITALS: BP 100/47; PULSE 73; RESP 16; TEMP 36.6; O2SAT 95
[2019-07-16] MEDS: Bisacodyl 5 MG Tablet 10 MG PO (17:49)
--- NOTE | 2019-07-16 18:43 | NURSING ---
BLADDER SCANNED PT FOR 107 ML AFTER 25 CC OUT PUT. ENCOURAGED PT TO DRINK. PT STATED TO THIS NURSE I DONT DRINK VERY MUCH, I JUST DONT CARE TO AND I'AM NOT THIRSTY . REPORTED TO NAYAN NUÑEZ
--- NOTE | 2019-07-16 18:47 | NURSING ---
PRN DULCOLAX GIVEN DO TO CONSTIPATION AND NO BM IN 3 DAYS.
--- NOTE | 2019-07-16 20:04 | NURSING ---
need staple d/c date
[2019-07-16] MEDS: MELATONIN 10 MG TABLET PO (22:06)
[2019-07-16] MEDS: Bisacodyl 10 MG Suppository RECTAL (22:06)
[2019-07-16] MEDS: Atorvastatin Calcium 80 MG Tablet PO (22:08)
[2019-07-17] MEDS: oxyCODONE 5 MG Tablet 10 MG PO ×4 (01:46→21:32)
[2019-07-17] MEDS: Pantoprazole Sodium 40 MG Tablet PO (05:42)
[2019-07-17] MEDS: Senna/Docusate Sodium 1 Tablet 2 TABLET PO ×2 (05:42→18:12)
[2019-07-17] MEDS: Acetaminophen 500 MG Tablet 1000 MG PO ×3 (05:42→21:32)
[2019-07-17] MEDS: Escitalopram Oxalate 20 MG Tablet PO (05:42)
[2019-07-17] MEDS: Atenolol 25 MG Tablet PO (05:42)
[2019-07-17] MEDS: Acyclovir 200 MG Capsule 400 MG PO ×2 (05:42→18:12)
[2019-07-17] MEDS: Enoxaparin 60 MG/0.6 ML Syringe SC ×2 (05:43→18:12)
[2019-07-17] MEDS: Polyethylene Glycol 3350 17 GM PACKET PO (05:45)
[2019-07-17] MEDS: Nystatin Powder 15gm Bottle 1 APPLIC TOPICAL ×2 (05:46→21:34)
--- NOTE | 2019-07-17 07:38 | NURSING ---
suppository given per pt's request
[2019-07-17] MEDS: Gabapentin 100 MG Capsule 200 MG PO ×2 (08:42→18:12)
[2019-07-17 09:47] LABS: Pathologist Review Reviewed
[2019-07-17] MEDS: Lidocaine 5% Patch 1 PATCH TOPICAL (11:20)
--- NOTE | 2019-07-17 14:18 | RAD_ITS ---
STUDY: X-RAY - ABDOMEN/PELVIS REASON FOR EXAM: Female, 74 years old. Constipation TECHNIQUE: Two AP supine views of the abdomen and pelvis. COMPARISON: 03/12/2019 KUB FINDINGS: Normal visualized lung bases. There is a moderate amount of colonic fecal material. There is no demonstrated free abdominal air. The kidneys are obscured. The visualized liver, spleen are grossly normal in size and morphology. There is postoperative change demonstrated with a visualized laminectomy in the lumbar spine from the level of L3 to the sacrum. Normal visualized osseous structures. RAD/Abdomen Single View IMPRESSION: Moderate stool in the colon. Postoperative change of the lumbar spine. Electronically Signed: Venita Lopez MD at 17:37 EST Tel , Service support ,
--- NOTE | 2019-07-17 15:07 | NURSING ---
Bladder scanned pt for 600cc, pt c/o abd pain/pressure. st cathed for 850cc clear yellow urine. pt abd pain dissipated after draining bladder.
[2019-07-17 15:44] VITALS: BP 123/67; PULSE 77; RESP 14; TEMP 36.8; O2SAT 97
--- NOTE | 2019-07-17 18:31 | NURSING ---
Addendum entered by Tonia Huddleston 07/17/19 18:32: pt requesting to take in AM, doesnt want to be awake all night with bowel incontinence. Original Note: dr casillas reviewed abd xray, new order to admin 2 liters golytely.
[2019-07-17] MEDS: MELATONIN 10 MG TABLET PO (21:33)
[2019-07-17] MEDS: Atorvastatin Calcium 80 MG Tablet PO (21:33)
[2019-07-18] MEDS: oxyCODONE 5 MG Tablet 10 MG PO ×3 (03:53→18:38)
[2019-07-18] MEDS: Polyethylene Glycol 3350 17 GM PACKET PO (04:36)
[2019-07-18] MEDS: Acetaminophen 500 MG Tablet 1000 MG PO ×3 (04:41→21:18)
[2019-07-18] MEDS: Pantoprazole Sodium 40 MG Tablet PO (04:41)
[2019-07-18] MEDS: Nystatin Powder 15gm Bottle 1 APPLIC TOPICAL ×2 (04:41→21:18)
[2019-07-18] MEDS: Escitalopram Oxalate 20 MG Tablet PO (04:41)
[2019-07-18] MEDS: Atenolol 25 MG Tablet PO (04:41)
[2019-07-18] MEDS: Acyclovir 200 MG Capsule 400 MG PO ×2 (04:41→16:47)
[2019-07-18] MEDS: Senna/Docusate Sodium 1 Tablet 2 TABLET PO ×2 (04:41→16:47)
[2019-07-18] MEDS: Menthol/Lanolin/Calamine/Znox 113 GM Tube 1 APPLIC TOPICAL (04:42)
[2019-07-18] MEDS: Enoxaparin 60 MG/0.6 ML Syringe SC ×2 (04:43→16:47)
[2019-07-18] MEDS: Gabapentin 100 MG Capsule 200 MG PO ×2 (07:47→16:46)
--- NOTE | 2019-07-18 09:21 | NURSING ---
DR DAMON UPDATED ON PT NEEDING ST CATHED YESTERDAY AND EARLY AM. NEW ORDER FOR SCHWARTZ REINSERTION AND TO CONSULT DR SCOTT FOR URINARY RETENTION, CAUDA EQUINA SYNDROM, S/P LUMBA EPIDURAL HEMATOMA EVACUATION. PT UPDATED ON ALL.
[2019-07-18] MEDS: Lidocaine 5% Patch 1 PATCH TOPICAL (10:16)
[2019-07-18] MEDS: Electrolyte Solution/Peg's 4000 ML 2000 ML PO (10:20)
--- NOTE | 2019-07-18 13:50 | NURSING ---
Addendum entered by Tonia Langston Flaquito 07/18/19 18:57: DR Steven notified, cipro x7 days. culture pending. Dr Gómez ordered decadron for mult myeloma. pt has been tearful today, Dr Steven spoke with pt and . new order for wellbutrin. Original Note: 16 Fr Bentley inserted per order and secured to left thigh. Instant return of 400 cc of cloudy yellow foul smelling urine noted. Patient tolerated procedure well. Urine sample sent down to lab per Dr. Oconnor.
[2019-07-18 14:26] LABS: Mucous, Urine 0 SEEN /hpf (<or=2+)
[2019-07-18 14:57] VITALS: BP 127/45; PULSE 86; RESP 18; TEMP 37; O2SAT 97
[2019-07-18 15:08] LABS: Color, Urine Yellow (Yellow); Glucose, Dipstick Normal (Normal); Ketone-Dipstick Negative (Negative); Leukocyte Esterase-Dipstick 500 /ul (Negative); Nitrite-Dipstick Negative (Negative); Occult Blood-Urine 50 /ul (Negative); Protein-Dipstick 30 mg/dl (Negative); Specific Gravity, Urine 1.015 (1.002-1.030); Urine Bilirubin Dipstick Negative (Negative); Urine Clarity Sl. Cloudy (Clear); Urine Urobilinogen Normal (Normal)
[2019-07-18 15:16] LABS: Bacteria 2+ /hpf (None Seen); Red Blood Cells-Urine 0-5 SEEN /hpf (0-5); Squamous Epithelial Cells - UA 0-5 SEEN /hpf (5-10); White Blood Cells 25-50 SEEN /hpf (0-5)
[2019-07-18] MEDS: Ciprofloxacin 250 MG Tablet PO (16:14)
[2019-07-18] MEDS: traMADol 50 MG Tablet PO (16:45)
--- NOTE | 2019-07-18 17:13 | CHAPLAIN ---
Type of Pastoral Visit ___ Initial Visit _x__ Follow-up Visit ___ On-call Visit ___ General Patient Visit ___ Spiritual Assessment ___ Family Conference ___ Bereavement ___ Rapid Response ___ Code Blue ___ Other (describe below) Pastoral Care Referral From _x__ Patient _x__ Family _x__ Nurse ___ Physician ___ Tile Burner ___ Water Rights Specialist ___ Other (describe below) Sacrament/Intervention _x__ Active listening ___ Anointing ___ Mandaeism ___ Bereavement ___ Communion ___ Orly exploration ___ ___ Life review _x__ Prayer ___ Reconciliation ___ Sacrament of Sick _x__ Supportive presence ___ Wedding ___ Other (describe below) Pastoral Comments patient and spouse seeking spiritual support as pt has had long and ongoing health needs and hospitalizations this year; patient is open to having scripture CD's to listen to and this archaeologist will provide those; patient welcomes presence and prayer
[2019-07-18] MEDS: buPROPion (SR) 150 MG Tablet.SA PO (18:39)
[2019-07-18] MEDS: MELATONIN 10 MG TABLET PO (21:18)
[2019-07-18] MEDS: Atorvastatin Calcium 80 MG Tablet PO (21:18)
--- NOTE | 2019-07-18 21:39 | PCA ---
This SOCIAL WORK INSTRUCTOR offered to change patient into a gown and stated she had just got comfortable and did not want to be disturbed.
[2019-07-19] MEDS: oxyCODONE 5 MG Tablet 10 MG PO ×3 (00:42→10:53)
[2019-07-19] MEDS: Acyclovir 200 MG Capsule 400 MG PO ×2 (04:20→18:42)
[2019-07-19] MEDS: traMADol 50 MG Tablet PO ×2 (04:20→21:30)
[2019-07-19] MEDS: Acetaminophen 500 MG Tablet 1000 MG PO ×3 (04:20→21:29)
[2019-07-19] MEDS: Escitalopram Oxalate 20 MG Tablet PO (04:21)
[2019-07-19] MEDS: Senna/Docusate Sodium 1 Tablet 2 TABLET PO ×2 (04:21→18:41)
[2019-07-19] MEDS: Pantoprazole Sodium 40 MG Tablet PO (04:21)
[2019-07-19] MEDS: Ciprofloxacin 250 MG Tablet PO ×2 (04:21→18:41)
[2019-07-19] MEDS: Atenolol 25 MG Tablet PO (04:21)
[2019-07-19] MEDS: Polyethylene Glycol 3350 17 GM PACKET PO (04:21)
[2019-07-19] MEDS: Nystatin Powder 15gm Bottle 1 APPLIC TOPICAL ×2 (04:21→21:45)
[2019-07-19] MEDS: buPROPion (SR) 150 MG Tablet.SA PO ×2 (04:21→18:42)
[2019-07-19] MEDS: Enoxaparin 60 MG/0.6 ML Syringe SC ×2 (04:26→18:42)
[2019-07-19] MEDS: Gabapentin 100 MG Capsule 200 MG PO ×2 (09:09→18:40)
[2019-07-19 10:00] VITALS: PULSE 70; O2SAT 94
[2019-07-19] MEDS: dexAMETHasone 4 MG Tablet 40 MG PO (10:13)
[2019-07-19] MEDS: Lidocaine 5% Patch 1 PATCH TOPICAL (11:36)
--- NOTE | 2019-07-19 12:15 | CASEMGMT ---
Social Work IDT met with patient and for care plan meeting. Discussed patient's progress in therapy. Pt is catheter placed, using SerraLift to transfer. Pt is total assist for LE to adhere to back precautions, SBA for bed mobility and UE ADLs. Pt working with ST as staff and pt express fogginess, coms confusion and occasionally yells out r/t confusion. ST will be working with pt on distractibility, inattention, processing and left sided visual neglect. Pt reiterated from SW conversation yesterday she is embarrassed at her deficits and discouraged, thinking she would be moving along quicker. Again offered for SW visits, activities to assist with loneliness and Guard Captain will continue to visit as needed. Will continue to monitor if med changes assists with mood as well. Explained stroke support group for pt and , as explained at previous stay on RU. Pt and very interested - referral made. Will continue to visit and provide emotional and verbal support. Explained Medicare benefit. Pt will continue to work with therapy. Heidi Lugo, [employer] COACH POWER PROJECT MANAGER
--- NOTE | 2019-07-19 15:08 | CHAPLAIN ---
Type of Pastoral Visit ___ Initial Visit _x__ Follow-up Visit ___ On-call Visit ___ General Patient Visit ___ Spiritual Assessment ___ Family Conference ___ Bereavement ___ Rapid Response ___ Code Blue ___ Other (describe below) Pastoral Care Referral From _x__ Patient ___ Family ___ Nurse ___ Physician ___ Traffic Assistant ___ Appraiser Art ___ Other (describe below) Sacrament/Intervention _x__ Active listening ___ Anointing ___ Restorationist ___ Bereavement ___ Communion ___ Orly exploration ___ ___ Life review ___ Prayer ___ Reconciliation ___ Sacrament of Sick ___ Supportive presence ___ Wedding ___ Other (describe below) Pastoral Comments came to check on patient to follow up with her request for a CD player; pt had a visitor sitting with her
[2019-07-19 15:26] VITALS: BP 119/54; PULSE 83; RESP 16; TEMP 35.9; O2SAT 95
[2019-07-19] MEDS: Atorvastatin Calcium 80 MG Tablet PO (21:28)
[2019-07-19] MEDS: MELATONIN 10 MG TABLET PO (21:29)
[2019-07-20 06:00] LABS: Absolute Lymphocyte Count 0.89 X10^3/uL (0.83-4.51); Absolute Neutrophil Count 12.6 X10^3/uL (2.0-7.7); Basophil# 0.02 X10^3/uL; Basophil% 0.1 % (0-1); Hematocrit 27.1 % (37-47); Hemoglobin 8.8 g/dL (12.0-15.0); Lymphocyte # 0.89 X10^3/ul (4.0); Lymphocyte % 5.5 % (19-41); Mean Corp Hgb Conc 32.5 g/dL (32-36); Mean Corpuscular Hgb 34.5 pg (27.0-32.0); Mean Corpuscular Volume 106.3 fL (81-99); Mean Platelet Vol. 12.2 fl (6.2-12.0); Monocyte# 2.39 X10^3/uL; Monocyte% 14.9 % (0-10); NRBC Flagged by Analyzer 0 % (0-5); Neutrophil # 12.55 X10^3/uL (2.7-7.7); Neutrophil % 78.3 % (47-70); POSITIVE DIFFERENTIAL YES; Platelet Count 159 K/mm3 (150-450); RBC Distribution Width CV 15.4 % (11.6-14.6); RBC Distribution Width SD 59.2 fl (35.1-43.9); Red Blood Count 2.55 M/mm3 (4.2-5.4); White Blood Count 16.1 K/mm3 (4.4-11.0)
[2019-07-20 06:10] LABS: Differential Indicated SCAN CRITERIA MET
[2019-07-20 06:24] LABS: Anion Gap 6 (5-15); BUN 23 mg/dL (7-18); BUN/Creat Ratio 29.6 RATIO (10-20); Calcium,Total 8.7 mg/dL (8.5-10.1); Chloride 106 mmol/L (98-107); Creatinine, Serum 0.78 mg/dL (0.55-1.02); EST Glomerular Filtration Rate 77 mL/min (>60); Est Glom Filt Rate - Afr Amer 93 mL/min (>60); Estimated Creatinine Clearance 41.97 ml/min; Glucose 118 mg/dL (74-106); Sodium Level 140 mmol/L (136-145)
[2019-07-20] MEDS: Pantoprazole Sodium 40 MG Tablet PO (06:27)
[2019-07-20] MEDS: Acyclovir 200 MG Capsule 400 MG PO ×2 (06:27→17:18)
[2019-07-20] MEDS: Ciprofloxacin 250 MG Tablet PO ×2 (06:27→17:18)
[2019-07-20] MEDS: Acetaminophen 500 MG Tablet 1000 MG PO ×2 (06:29→21:19)
[2019-07-20] MEDS: buPROPion (SR) 150 MG Tablet.SA PO ×2 (06:29→17:18)
[2019-07-20] MEDS: Atenolol 25 MG Tablet PO (06:29)
[2019-07-20] MEDS: Senna/Docusate Sodium 1 Tablet 2 TABLET PO ×2 (06:29→17:18)
[2019-07-20] MEDS: Escitalopram Oxalate 20 MG Tablet PO (06:29)
[2019-07-20] MEDS: Enoxaparin 60 MG/0.6 ML Syringe SC ×2 (06:32→17:18)
[2019-07-20] MEDS: Nystatin Powder 15gm Bottle 1 APPLIC TOPICAL ×2 (06:36→21:20)
[2019-07-20] MEDS: Gabapentin 100 MG Capsule 200 MG PO ×2 (08:27→17:18)
[2019-07-20] MEDS: Lidocaine 5% Patch 1 PATCH TOPICAL (09:22)
[2019-07-20] MEDS: Tuberculin,Purif.prot.deriv. 50 TU/ML Vial 5 ML ID (10:27)
[2019-07-20] MEDS: oxyCODONE 5 MG Tablet 10 MG PO ×2 (11:34→21:26)
[2019-07-20] MEDS: Ondansetron ODT 4 MG Tablet PO (11:34)
[2019-07-20 16:00] VITALS: BP 98/48; PULSE 70; RESP 16; TEMP 36; O2SAT 94
--- NOTE | 2019-07-20 16:27 | NURSING ---
PT ARRIVED BACK FROM DOCTOR APPOINTMENT BY COT AT [id number].
[2019-07-20 17:24] VITALS: BP 112/53; PULSE 69
[2019-07-20] MEDS: MELATONIN 10 MG TABLET PO (21:19)
[2019-07-20] MEDS: Atorvastatin Calcium 80 MG Tablet PO (21:19)
[2019-07-21] MEDS: traMADol 50 MG Tablet PO (00:25)
[2019-07-21] MEDS: oxyCODONE 5 MG Tablet 10 MG PO ×2 (02:08→09:32)
[2019-07-21] MEDS: Acetaminophen 500 MG Tablet 1000 MG PO ×3 (04:27→20:18)
[2019-07-21] MEDS: Polyethylene Glycol 3350 17 GM PACKET PO (04:28)
[2019-07-21] MEDS: Ciprofloxacin 250 MG Tablet PO ×2 (04:28→17:19)
[2019-07-21] MEDS: Pantoprazole Sodium 40 MG Tablet PO (04:28)
[2019-07-21] MEDS: Acyclovir 200 MG Capsule 400 MG PO ×2 (04:28→17:19)
[2019-07-21] MEDS: Senna/Docusate Sodium 1 Tablet 2 TABLET PO ×2 (04:28→17:19)
[2019-07-21] MEDS: Atenolol 25 MG Tablet PO (04:28)
[2019-07-21] MEDS: buPROPion (SR) 150 MG Tablet.SA PO ×2 (04:28→17:19)
[2019-07-21] MEDS: Escitalopram Oxalate 20 MG Tablet PO (04:28)
[2019-07-21] MEDS: Menthol/Lanolin/Calamine/Znox 113 GM Tube 1 APPLIC TOPICAL (04:28)
[2019-07-21] MEDS: Nystatin Powder 15gm Bottle 1 APPLIC TOPICAL ×2 (04:29→20:10)
[2019-07-21] MEDS: Enoxaparin 60 MG/0.6 ML Syringe SC ×2 (04:30→17:20)
[2019-07-21] MEDS: Gabapentin 100 MG Capsule 200 MG PO ×2 (08:18→17:19)
[2019-07-21] MEDS: Lidocaine 5% Patch 1 PATCH TOPICAL (09:28)
--- NOTE | 2019-07-21 11:51 | NURSING ---
Addendum entered by Tonia Huddleston 07/21/19 16:17: Dr Weber saw pt and does not want botello removed until pt stronger and can ambulate Original Note: notified Dr Weber office of consult order again.
--- NOTE | 2019-07-21 12:43 | PCM.CONS.U ---
Reason for Consult Date of Consultation: 07/21/19 Reason for Consultation: Retention of urine third due to neurologic compression of epidural hematoma with hematoma retention of urine after epidural hematoma retention of urine History of Present Illness: 74-year-old female who presented with back pain chronic back pain has multiply a full myeloma undergoing chemotherapy she underwent an injection and then she had an MRI of the spine that shows a large epidural hematoma she was transferred to outside hospital she underwent evacuation of the hematoma she is now in the rehab center for improvement she has very weak lower extremities. She has a Bentley catheter is not been able to urinate Past Medical History Past Medical History (Chronic Problems): Chronic Problems (Last Reviewed 06/28/19 @ 11:52 by Anika Choudhary) Stroke (Chronic) HLD (hyperlipidemia) (Chronic) Anxiety and depression (Chronic) Essential tremor (Chronic) Myelodysplasia (myelodysplastic syndrome) (Chronic) Low back pain (Chronic) Vascular dementia (Chronic) Hypertension (Chronic) Neuropathic pain (Chronic) Left hemiparesis (Chronic) Depression (Chronic) Anxiety (Chronic) Cerebrovascular disease (Chronic) Macrocytosis (Chronic) MDS (myelodysplastic syndrome), low grade (Chronic) Myeloma (Chronic) Lung nodule (Chronic) Left upper lobe, May 2018 Liver lesion, right lobe (Chronic) Negative biopsy for malignancy June 29, 2018 Anemia (Chronic) Tremor (Chronic) Cognitive dysfunction (Chronic) Meningioma (Chronic) Medical History: Medical History (Last Reviewed 07/21/19 @ 12:44 by Bruno Weber MD) Cellulitis L03.90 left eye -2018 History of hysterectomy Z90.710 Meningioma D32.9 Gamma knife at [facility] ~2000 Osteopenia M85.80 Stroke I63.9 X2 - HOSPITALIZATION FOR 5 DAYS Allergies morphine Adverse Reaction (Severe, Verified 06/28/19 15:22) Nausea Home Medications: Ambulatory Orders Medication Instructions Recorded Enoxaparin [Lovenox] 60 mg SUBCUT Q12@0600,1800 05/31/19 Acyclovir [Zovirax] 400 mg PO BID 06/28/19 Atorvastatin Calcium [Lipitor] 80 mg PO QHS 06/28/19 Escitalopram Oxalate [Lexapro] 10 mg PO DAILY 06/28/19 Gabapentin [Neurontin] 200 mg PO BID 06/28/19 Hydrocodone/Acetaminophen 1 tab PO Q4H PRN PRN 06/28/19 [Hydrocodone-Acetamin 5-325 mg] Acetaminophen 1,000 mg PO Q8H 07/12/19 Albuterol Sulfate [Albuterol 2 puff IH Q4H PRN PRN 07/12/19 Sulfate Hfa] Atenolol 25 mg PO DAILY 07/12/19 Docusate Sodium [Colace] 100 mg PO BID 07/12/19 Ipratropium/Albuterol Sulfate 3 ml INHALATION Q4H.RT 07/12/19 [Duoneb] Lidocaine [Lidocaine Pain Relief] 1 ea TP DAILY@1000 07/12/19 Oxycodone [Oxyir] 5 mg PO Q4H PRN PRN 07/12/19 Pantoprazole Sodium [Protonix] 40 mg PO DAILY 07/12/19 Sennosides/Docusate Sodium 1 tab PO BID 07/12/19 [Senna-S Tablet] Surgical History: Surgical History (Last Reviewed 06/28/19 @ 11:52 by Anika Choudhary) History of cholecystectomy Z90.49 Surgical History: cholecystectomy, hysterectomy, tonsillectomy, - - Gamma knife meningioma. 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 Paternal Family History: Family History (Last Reviewed 06/28/19 @ 11:52 by Anika Choudhary) Mother Breast cancer Sister Breast cancer Aunt Breast cancer Daughter History of malignant melanoma Father Brain cancer Brother Lung cancer History Items: Cancer - Father with history of brain cancer. Review of Systems Constitutional: Denies: Chills, Fever, Weight Change HEENT: Denies: Head Aches, Sinus Congestion, Sinus Drainage Cardiovascular: Denies: Chest Pain, Palpitations Respiratory: Denies: Cough, Shortness of breath at rest, Sputum production Gastrointestinal: Denies: Abdominal Pain, Nausea, Vomiting Genitourinary: Denies: Dysuria Musculoskeletal: Reports: - - weakness in les Skin: Denies: Rash, Wounds Neurological: Denies: Numbness, Tingling, Focal weakness Psychiatric: Denies: Anxiety, Depression, Homicidal Ideations, Suicidal Ideations Hematologic/ Lymphatic: Denies: Easy Bruising, Easy Bleeding Physical Exam - Physical Exam Vital Signs Temp 96.8 F L 07/20/19 16:00 Pulse 69 07/20/19 17:24 Resp 16 07/20/19 16:00 BP 112/53 L 07/20/19 17:24 Pulse Ox 94 07/20/19 16:00 Intake & Output 07/19/19 07/20/19 07/21/19 23:59 23:59 23:59 Intake Total 740 / 740 1200 / 1200 280 / 280 Output Total 1375 / 1375 700 / 700 250 / 250 Balance -635 / -635 500 / 500 30 30 Weight: 61.235 kg Intake: Oral 740 / 740 1200 / 1200 280 / 280 Output: Urine 1375 / 1375 700 / 700 250 / 250 General: Alert, Oriented x3 HEENT: Atraumatic Oral: Moist Mucosa Neck: Supple Lungs: Clear to auscultation Cardiovascular: Regular Rhythm Abdomen: Soft Psych/Mental Status: Normal Affect - lower legs can move but weak, needs full help to get out of bed Microbiology Past 72 Hours 07/18/19 13:50 Urine Culture - Final Urine Catheter - Catheter Klebsiella pneumoniae sp pneum Assessment/Plan All Active Problems (Last Reviewed 06/28/19 @ 11:52 by Anika Choudhary) Chemotherapy management, encounter for (Acute) Intractable back pain (Acute) Debility (Acute) Epidural hematoma (Acute) Cauda equina syndrome (Acute) Hypotension (Acute) Hypophosphatemia (Acute) PFO (patent foramen ovale) (Ruled-out) 74-year-old female who is currently in transitional care unit with lower extremity weakness from epidural hematoma. Most likely will have a neurogenic bladder recommend continued Bentley catheter for now I think once she is ambulatory or at least able to transfer and pivot onto the toilet we can start doing self intermittent catheterization for now given her nonambulatory status probably would not remove the catheter and wait for her neurologic condition to improve. Please call me with questions
[2019-07-21 13:18] LABS: Pathologist Review Reviewed
[2019-07-21 15:46] VITALS: BP 130/45; PULSE 79; RESP 16; TEMP 36.6; O2SAT 98
[2019-07-21] MEDS: Ondansetron ODT 4 MG Tablet PO (17:16)
[2019-07-21] MEDS: Atorvastatin Calcium 80 MG Tablet PO (20:18)
[2019-07-21] MEDS: MELATONIN 10 MG TABLET PO (20:23)
[2019-07-21 20:33] VITALS: BP 127/40; PULSE 74; RESP 18; TEMP 35.9; O2SAT 98
[2019-07-22] MEDS: traMADol 50 MG Tablet PO ×3 (00:28→17:19)
--- NOTE | 2019-07-22 00:33 | NURSING ---
Pt removed AFOs, refusing. States pain in legs. Requesting pain medication. Given prn Ultram.
[2019-07-22] MEDS: Ciprofloxacin 250 MG Tablet PO ×2 (04:54→17:17)
[2019-07-22] MEDS: Enoxaparin 60 MG/0.6 ML Syringe SC ×2 (04:54→17:17)
[2019-07-22] MEDS: Polyethylene Glycol 3350 17 GM PACKET PO (04:54)
[2019-07-22] MEDS: Atenolol 25 MG Tablet PO (04:55)
[2019-07-22] MEDS: Escitalopram Oxalate 20 MG Tablet PO (04:56)
[2019-07-22] MEDS: Senna/Docusate Sodium 1 Tablet 2 TABLET PO ×2 (04:56→17:18)
[2019-07-22] MEDS: Pantoprazole Sodium 40 MG Tablet PO (04:56)
[2019-07-22] MEDS: Acetaminophen 500 MG Tablet 1000 MG PO ×3 (04:57→21:30)
[2019-07-22] MEDS: buPROPion (SR) 150 MG Tablet.SA PO ×2 (04:58→17:18)
[2019-07-22] MEDS: Acyclovir 200 MG Capsule 400 MG PO ×2 (04:58→17:18)
[2019-07-22] MEDS: Nystatin Powder 15gm Bottle 1 APPLIC TOPICAL ×2 (04:59→21:38)
[2019-07-22] MEDS: oxyCODONE 5 MG Tablet 10 MG PO (05:09)
[2019-07-22] MEDS: Gabapentin 100 MG Capsule 200 MG PO ×2 (08:16→17:17)
[2019-07-22] MEDS: Lidocaine 5% Patch 1 PATCH TOPICAL (09:18)
[2019-07-22 16:00] VITALS: BP 104/49; PULSE 72; RESP 14; TEMP 36.1; O2SAT 97
[2019-07-22] MEDS: Atorvastatin Calcium 80 MG Tablet PO (21:32)
[2019-07-22] MEDS: MELATONIN 10 MG TABLET PO (21:36)
[2019-07-23] MEDS: Escitalopram Oxalate 20 MG Tablet PO (04:40)
[2019-07-23] MEDS: Acyclovir 200 MG Capsule 400 MG PO ×2 (04:40→18:44)
[2019-07-23] MEDS: Acetaminophen 500 MG Tablet 1000 MG PO ×3 (04:40→20:45)
[2019-07-23] MEDS: Senna/Docusate Sodium 1 Tablet 2 TABLET PO (04:40)
[2019-07-23] MEDS: Ciprofloxacin 250 MG Tablet PO ×2 (04:41→18:44)
[2019-07-23] MEDS: buPROPion (SR) 150 MG Tablet.SA PO ×2 (04:41→18:44)
[2019-07-23] MEDS: Pantoprazole Sodium 40 MG Tablet PO (04:41)
[2019-07-23] MEDS: Atenolol 25 MG Tablet PO (04:41)
[2019-07-23] MEDS: Enoxaparin 60 MG/0.6 ML Syringe SC ×2 (04:44→18:44)
[2019-07-23] MEDS: Bisacodyl 5 MG Tablet 10 MG PO (04:46)
[2019-07-23] MEDS: Nystatin Powder 15gm Bottle 1 APPLIC TOPICAL ×2 (04:48→20:56)
[2019-07-23] MEDS: Gabapentin 100 MG Capsule 200 MG PO ×2 (09:19→18:43)
[2019-07-23] MEDS: Lidocaine 5% Patch 1 PATCH TOPICAL (09:19)
[2019-07-23] MEDS: Ondansetron ODT 4 MG Tablet PO (12:14)
--- NOTE | 2019-07-23 12:15 | NURSING ---
Addendum entered by Elise Pena 07/23/19 13:39: Pt stated medication was effective for nausea. Original Note: Pt c/o nausea. Zofran ODT 4mg given at this time. Will continue to monitor.
[2019-07-23 16:00] VITALS: BP 157/77; PULSE 88; RESP 18; TEMP 36.3; O2SAT 96
[2019-07-23] MEDS: traMADol 50 MG Tablet PO (16:47)
[2019-07-23] MEDS: Atorvastatin Calcium 80 MG Tablet PO (20:46)
[2019-07-23] MEDS: oxyCODONE 5 MG Tablet 10 MG PO (20:53)
[2019-07-23] MEDS: MELATONIN 10 MG TABLET PO (20:53)
[2019-07-23] MEDS: Menthol/Lanolin/Calamine/Znox 113 GM Tube 1 APPLIC TOPICAL (20:54)
[2019-07-24] MEDS: Acetaminophen 500 MG Tablet 1000 MG PO ×3 (04:32→21:14)
[2019-07-24] MEDS: Ciprofloxacin 250 MG Tablet PO ×2 (04:32→17:18)
[2019-07-24] MEDS: Atenolol 25 MG Tablet PO (04:33)
[2019-07-24] MEDS: Acyclovir 200 MG Capsule 400 MG PO ×2 (04:35→17:19)
[2019-07-24] MEDS: Escitalopram Oxalate 20 MG Tablet PO (04:36)
[2019-07-24] MEDS: Senna/Docusate Sodium 1 Tablet 2 TABLET PO ×2 (04:36→17:19)
[2019-07-24] MEDS: Pantoprazole Sodium 40 MG Tablet PO (04:36)
[2019-07-24] MEDS: buPROPion (SR) 150 MG Tablet.SA PO ×2 (04:36→17:19)
[2019-07-24] MEDS: Enoxaparin 60 MG/0.6 ML Syringe SC ×2 (04:36→17:17)
[2019-07-24] MEDS: Menthol/Lanolin/Calamine/Znox 113 GM Tube 1 APPLIC TOPICAL ×2 (04:43→21:18)
[2019-07-24] MEDS: Nystatin Powder 15gm Bottle 1 APPLIC TOPICAL ×2 (04:44→21:17)
[2019-07-24] MEDS: Gabapentin 100 MG Capsule 200 MG PO ×2 (08:13→17:19)
[2019-07-24] MEDS: Ondansetron ODT 4 MG Tablet PO ×2 (09:04→18:27)
[2019-07-24] MEDS: Lidocaine 5% Patch 1 PATCH TOPICAL (09:05)
--- NOTE | 2019-07-24 10:20 | MDS.RN ---
Information for the mds was obtained from review of the clinical record, interview of resident, staff, and direct observation of resident's care. Resident was non-ambulatory during lookback period.
[2019-07-24 15:38] VITALS: BP 134/65; PULSE 78; RESP 18; TEMP 36.6; O2SAT 96
--- NOTE | 2019-07-24 17:01 | CHAPLAIN ---
Type of Pastoral Visit ___ Initial Visit _x__ Follow-up Visit ___ On-call Visit ___ General Patient Visit ___ Spiritual Assessment ___ Family Conference ___ Bereavement ___ Rapid Response ___ Code Blue ___ Other (describe below) Pastoral Care Referral From _x__ Patient ___ Family ___ Nurse ___ Physician ___ County Coroner ___ Marketing Automation Specialist ___ Other (describe below) Sacrament/Intervention _x__ Active listening ___ Anointing ___ Church ___ Bereavement ___ Communion ___ Orly exploration ___ ___ Life review _x__ Prayer ___ Reconciliation ___ Sacrament of Sick _x__ Supportive presence ___ Wedding ___ Other (describe below) Pastoral Comments patient is sitting up in chair and positioned to look out the window; pt states how nice it is to see outside and have such a good view; pt admits to continuing discouragement in the state of her physical health and inability to use her legs/feet; pt welcomes prayers and visit
[2019-07-24] MEDS: oxyCODONE 5 MG Tablet 10 MG PO (21:13)
[2019-07-24] MEDS: Atorvastatin Calcium 80 MG Tablet PO (21:16)
[2019-07-24] MEDS: MELATONIN 10 MG TABLET PO (21:19)
[2019-07-24 21:20] VITALS: PULSE 90; RESP 16; O2SAT 97
[2019-07-25] MEDS: oxyCODONE 5 MG Tablet 10 MG PO ×2 (02:48→16:35)
[2019-07-25] MEDS: Menthol/Lanolin/Calamine/Znox 113 GM Tube 1 APPLIC TOPICAL ×2 (05:56→21:38)
[2019-07-25] MEDS: Nystatin Powder 15gm Bottle 1 APPLIC TOPICAL ×2 (05:56→21:38)
[2019-07-25] MEDS: traMADol 50 MG Tablet PO (05:57)
[2019-07-25] MEDS: Acetaminophen 500 MG Tablet 1000 MG PO ×3 (06:10→21:37)
[2019-07-25] MEDS: Acyclovir 200 MG Capsule 400 MG PO ×2 (06:11→17:57)
[2019-07-25] MEDS: Atenolol 25 MG Tablet PO (06:11)
[2019-07-25] MEDS: Enoxaparin 60 MG/0.6 ML Syringe SC ×2 (06:11→17:55)
[2019-07-25] MEDS: Escitalopram Oxalate 20 MG Tablet PO (06:11)
[2019-07-25] MEDS: Senna/Docusate Sodium 1 Tablet 2 TABLET PO ×2 (06:11→17:56)
[2019-07-25] MEDS: Pantoprazole Sodium 40 MG Tablet PO (06:11)
[2019-07-25] MEDS: buPROPion (SR) 150 MG Tablet.SA PO ×2 (06:12→17:56)
[2019-07-25] MEDS: Ciprofloxacin 250 MG Tablet PO (06:14)
[2019-07-25] MEDS: Ondansetron ODT 4 MG Tablet PO (07:59)
[2019-07-25] MEDS: Gabapentin 100 MG Capsule 200 MG PO ×2 (08:00→17:38)
[2019-07-25] MEDS: Lidocaine 5% Patch 1 PATCH TOPICAL (08:59)
[2019-07-25 15:57] VITALS: BP 126/76; PULSE 80; RESP 18; TEMP 36.4; O2SAT 98
[2019-07-25 21:20] VITALS: PULSE 88; RESP 16; O2SAT 97
[2019-07-25] MEDS: Atorvastatin Calcium 80 MG Tablet PO (21:37)
[2019-07-25] MEDS: MELATONIN 10 MG TABLET PO (21:37)
[2019-07-26] MEDS: oxyCODONE 5 MG Tablet 10 MG PO ×2 (05:00→10:48)
[2019-07-26] MEDS: Senna/Docusate Sodium 1 Tablet 2 TABLET PO (05:02)
[2019-07-26] MEDS: Acyclovir 200 MG Capsule 400 MG PO ×2 (05:02→18:24)
[2019-07-26] MEDS: Escitalopram Oxalate 20 MG Tablet PO (05:02)
[2019-07-26] MEDS: buPROPion (SR) 150 MG Tablet.SA PO ×2 (05:02→18:24)
[2019-07-26] MEDS: Pantoprazole Sodium 40 MG Tablet PO (05:02)
[2019-07-26] MEDS: Atenolol 25 MG Tablet PO (05:02)
[2019-07-26] MEDS: Acetaminophen 500 MG Tablet 1000 MG PO ×3 (05:03→21:07)
[2019-07-26] MEDS: Enoxaparin 60 MG/0.6 ML Syringe SC ×2 (05:06→18:24)
[2019-07-26] MEDS: Nystatin Powder 15gm Bottle 1 APPLIC TOPICAL ×2 (05:08→21:11)
[2019-07-26] MEDS: Menthol/Lanolin/Calamine/Znox 113 GM Tube 1 APPLIC TOPICAL ×2 (05:08→21:10)
[2019-07-26] MEDS: traMADol 50 MG Tablet PO (07:03)
[2019-07-26] MEDS: Bisacodyl 5 MG Tablet 10 MG PO (07:03)
[2019-07-26] MEDS: Ondansetron ODT 4 MG Tablet PO (08:19)
--- NOTE | 2019-07-26 08:30 | NURSING ---
Pt taken to the restroom by this Nurse and Nurse Olivares. Pt had a visitor and stated to the visitor I had a laxative and I don't know why because I have regular bowel movements. Pt had a Large formed bowel movement.
[2019-07-26] MEDS: Gabapentin 100 MG Capsule 200 MG PO ×2 (10:06→18:24)
[2019-07-26] MEDS: Lidocaine 5% Patch 1 PATCH TOPICAL (10:07)
[2019-07-26] MEDS: dexAMETHasone 4 MG Tablet 40 MG PO (10:07)
--- NOTE | 2019-07-26 10:52 | NURSING ---
Pt has frequent c/o nausea. Pt has order for Zofran ODT 4mg Qhr PRN and states medication is ineffective. Put on Dr Steven's list. Reported to Tonia SPICER.
--- NOTE | 2019-07-26 10:55 | NURSING ---
Addendum entered by Tonia Huddleston 07/26/19 16:20: Dr Steven added bedtime neurontin, dc zofran and added phenergan & Reglan. Original Note: Per therapy, pt states she wakes up every morning at 3am with terrible leg pain. Therapy thinks it may nerve pain. Pt is currently on Gabapentin 200mg BID. Reported to Tonia SPICER.
[2019-07-26 15:38] VITALS: BP 111/72; PULSE 80; RESP 16; TEMP 36.4; O2SAT 99
[2019-07-26] MEDS: Metoclopramide 10 MG Tablet PO (21:07)
[2019-07-26] MEDS: Atorvastatin Calcium 80 MG Tablet PO (21:08)
[2019-07-26] MEDS: MELATONIN 10 MG TABLET PO (21:08)
[2019-07-26] MEDS: Gabapentin 600 MG Tablet PO (21:08)
[2019-07-27 05:03] LABS: Absolute Lymphocyte Count 0.96 X10^3/uL (0.83-4.51); Absolute Neutrophil Count 8.1 X10^3/uL (2.0-7.7); Basophil# 0.01 X10^3/uL; Basophil% 0.1 % (0-1); Eosinophil# 0.01 X10^3/uL; Eosinophils% 0.1 % (0-5); Hematocrit 28.9 % (37-47); Hemoglobin 9.5 g/dL (12.0-15.0); Lymphocyte # 0.96 X10^3/ul (4.0); Lymphocyte % 8.2 % (19-41); Mean Corp Hgb Conc 32.9 g/dL (32-36); Mean Corpuscular Hgb 35.1 pg (27.0-32.0); Mean Corpuscular Volume 106.6 fL (81-99); Mean Platelet Vol. 11.9 fl (6.2-12.0); Monocyte% 21.3 % (0-10); NRBC Flagged by Analyzer 0 % (0-5); Neutrophil # 8.11 X10^3/uL (2.7-7.7); Neutrophil % 69.1 % (47-70); POSITIVE DIFFERENTIAL YES; Platelet Count 197 K/mm3 (150-450); RBC Distribution Width CV 15.3 % (11.6-14.6); RBC Distribution Width SD 59.9 fl (35.1-43.9); Red Blood Count 2.71 M/mm3 (4.2-5.4); White Blood Count 11.7 K/mm3 (4.4-11.0)
[2019-07-27 05:10] LABS: Differential Indicated SCAN CRITERIA MET
[2019-07-27 05:19] LABS: Anion Gap 6 (5-15); BUN 15 mg/dL (7-18); BUN/Creat Ratio 19.8 RATIO (10-20); Calcium,Total 8.4 mg/dL (8.5-10.1); Chloride 107 mmol/L (98-107); Creatinine, Serum 0.76 mg/dL (0.55-1.02); EST Glomerular Filtration Rate 79 mL/min (>60); Est Glom Filt Rate - Afr Amer 96 mL/min (>60); Estimated Creatinine Clearance 41.97 ml/min; Glucose 98 mg/dL (74-106); Potassium 3.8 mmol/L (3.5-5.1); Sodium Level 137 mmol/L (136-145)
[2019-07-27 05:31] LABS: Differential Comment SCANNED
[2019-07-27 05:32] LABS: Hypochromasia 2+; Macrocytosis 2+
[2019-07-27] MEDS: Acetaminophen 500 MG Tablet 1000 MG PO ×3 (06:46→22:54)
[2019-07-27] MEDS: Atenolol 25 MG Tablet PO (06:46)
[2019-07-27] MEDS: Metoclopramide 10 MG Tablet PO ×4 (06:46→22:58)
[2019-07-27] MEDS: buPROPion (SR) 150 MG Tablet.SA PO ×2 (06:46→17:34)
[2019-07-27] MEDS: Escitalopram Oxalate 20 MG Tablet PO (06:46)
[2019-07-27] MEDS: Pantoprazole Sodium 40 MG Tablet PO (06:46)
[2019-07-27] MEDS: Acyclovir 200 MG Capsule 400 MG PO ×2 (06:47→17:34)
[2019-07-27] MEDS: Enoxaparin 60 MG/0.6 ML Syringe SC ×2 (06:48→17:34)
[2019-07-27] MEDS: Menthol/Lanolin/Calamine/Znox 113 GM Tube 1 APPLIC TOPICAL ×2 (06:51→22:59)
[2019-07-27] MEDS: Nystatin Powder 15gm Bottle 1 APPLIC TOPICAL ×2 (06:51→22:59)
[2019-07-27] MEDS: Gabapentin 100 MG Capsule 200 MG PO ×2 (08:09→16:49)
[2019-07-27] MEDS: Lidocaine 5% Patch 1 PATCH TOPICAL (09:17)
--- NOTE | 2019-07-27 14:46 | NURSING ---
PT REQUESTING SCD AT NIGHT. PT STATED I FEEL THEY WOULD HELP ME AT NIGHT. REPORTED TO NAYAN NUÑEZ
[2019-07-27 15:47] VITALS: BP 96/30; PULSE 77; RESP 18; TEMP 36.7; O2SAT 97
[2019-07-27 16:00] VITALS: BP 102/48
--- NOTE | 2019-07-27 16:20 | NURSING ---
THIS NURSE TOOK MANUAL BLOOD PRESSURE ON PT, 102/48,HR77. REPORTED TO NAYAN NUÑEZ
[2019-07-27] MEDS: Senna/Docusate Sodium 1 Tablet 2 TABLET PO (17:34)
--- NOTE | 2019-07-27 18:01 | NURSING ---
PT STATED TO THIS NURSE THAT HER ELBOWS FELT SORE. SEEN ELBOWS WERE RED. ASKED PT IF SHE KNEW WHY ELBOWS WERE SORE AND RED. PT STATED THAT SHE USES THEM TO MOVE AROUND IN BED. THIS NURSE APPLIED ELBOW PADS TO BELLE ELBOWS. REPORTED TO NAYAN NUÑEZ
[2019-07-27] MEDS: MELATONIN 10 MG TABLET PO (22:54)
[2019-07-27] MEDS: Atorvastatin Calcium 80 MG Tablet PO (22:54)
[2019-07-27] MEDS: Gabapentin 600 MG Tablet PO (22:58)
[2019-07-27 23:23] VITALS: PULSE 67; RESP 18; O2SAT 94
[2019-07-28] MEDS: oxyCODONE 5 MG Tablet 10 MG PO ×3 (00:38→18:56)
[2019-07-28] MEDS: Enoxaparin 60 MG/0.6 ML Syringe SC ×2 (06:14→17:31)
[2019-07-28] MEDS: Escitalopram Oxalate 20 MG Tablet PO (06:14)
[2019-07-28] MEDS: Pantoprazole Sodium 40 MG Tablet PO (06:15)
[2019-07-28] MEDS: Senna/Docusate Sodium 1 Tablet 2 TABLET PO ×2 (06:16→17:31)
[2019-07-28] MEDS: Atenolol 25 MG Tablet PO (06:16)
[2019-07-28] MEDS: buPROPion (SR) 150 MG Tablet.SA PO ×2 (06:17→17:31)
[2019-07-28] MEDS: Acetaminophen 500 MG Tablet 1000 MG PO ×3 (06:17→22:27)
[2019-07-28] MEDS: Acyclovir 200 MG Capsule 400 MG PO ×2 (06:18→17:31)
[2019-07-28] MEDS: Metoclopramide 10 MG Tablet PO ×4 (06:19→22:27)
[2019-07-28] MEDS: Nystatin Powder 15gm Bottle 1 APPLIC TOPICAL ×2 (06:29→22:28)
[2019-07-28] MEDS: Menthol/Lanolin/Calamine/Znox 113 GM Tube 1 APPLIC TOPICAL ×2 (06:30→22:28)
[2019-07-28 06:40] VITALS: BP 134/52; PULSE 81; RESP 18; O2SAT 97
[2019-07-28] MEDS: Lidocaine 5% Patch 1 PATCH TOPICAL (10:57)
[2019-07-28 14:21] LABS: Pathologist Review Reviewed
[2019-07-28 15:47] VITALS: BP 102/50; PULSE 73; RESP 16; TEMP 36.4; O2SAT 97
[2019-07-28] MEDS: traMADol 50 MG Tablet PO (17:36)
--- NOTE | 2019-07-28 22:06 | PCA ---
This quality control representative offered to get patient washed up tonight and resident responded with im pretty tired and will get washed in the morning. I'm comfortable and would like to sleep with what i have on. Kassy care and cath care was done when patient was up to the bathroom.
[2019-07-28] MEDS: Atorvastatin Calcium 80 MG Tablet PO (22:27)
[2019-07-28] MEDS: Gabapentin 600 MG Tablet PO (22:27)
[2019-07-28] MEDS: MELATONIN 10 MG TABLET PO (22:27)
[2019-07-29] MEDS: Polyethylene Glycol 3350 17 GM PACKET PO (05:16)
[2019-07-29] MEDS: buPROPion (SR) 150 MG Tablet.SA PO ×2 (05:17→17:27)
[2019-07-29] MEDS: oxyCODONE 5 MG Tablet 10 MG PO (05:17)
[2019-07-29] MEDS: Acetaminophen 500 MG Tablet 1000 MG PO ×3 (05:17→20:59)
[2019-07-29] MEDS: Escitalopram Oxalate 20 MG Tablet PO (05:17)
[2019-07-29] MEDS: Acyclovir 200 MG Capsule 400 MG PO ×2 (05:17→17:27)
[2019-07-29] MEDS: Metoclopramide 10 MG Tablet PO ×4 (05:17→20:58)
[2019-07-29] MEDS: Senna/Docusate Sodium 1 Tablet 2 TABLET PO (05:17)
[2019-07-29] MEDS: Pantoprazole Sodium 40 MG Tablet PO (05:17)
[2019-07-29] MEDS: Menthol/Lanolin/Calamine/Znox 113 GM Tube 1 APPLIC TOPICAL ×2 (05:18→20:52)
[2019-07-29] MEDS: Nystatin Powder 15gm Bottle 1 APPLIC TOPICAL ×2 (05:18→20:52)
[2019-07-29] MEDS: Enoxaparin 60 MG/0.6 ML Syringe SC ×2 (05:21→17:26)
[2019-07-29] MEDS: Atenolol 25 MG Tablet PO (05:28)
[2019-07-29] MEDS: Lidocaine 5% Patch 1 PATCH TOPICAL (08:49)
[2019-07-29] MEDS: Bisacodyl 5 MG Tablet 10 MG PO (11:33)
[2019-07-29 15:51] VITALS: BP 118/75; PULSE 81; RESP 16; TEMP 36; O2SAT 97
[2019-07-29] MEDS: traMADol 50 MG Tablet PO (20:51)
[2019-07-29] MEDS: MELATONIN 10 MG TABLET PO (20:57)
[2019-07-29] MEDS: Atorvastatin Calcium 80 MG Tablet PO (20:58)
[2019-07-29] MEDS: Gabapentin 600 MG Tablet PO (20:58)
[2019-07-30] MEDS: Senna/Docusate Sodium 1 Tablet 2 TABLET PO (04:57)
[2019-07-30] MEDS: Metoclopramide 10 MG Tablet PO ×4 (04:57→20:48)
[2019-07-30] MEDS: Polyethylene Glycol 3350 17 GM PACKET PO (04:57)
[2019-07-30] MEDS: Acyclovir 200 MG Capsule 400 MG PO ×2 (04:57→17:19)
[2019-07-30] MEDS: buPROPion (SR) 150 MG Tablet.SA PO ×2 (04:57→17:19)
[2019-07-30] MEDS: Acetaminophen 500 MG Tablet 1000 MG PO ×3 (04:57→20:48)
[2019-07-30] MEDS: Atenolol 25 MG Tablet PO (04:57)
[2019-07-30] MEDS: Menthol/Lanolin/Calamine/Znox 113 GM Tube 1 APPLIC TOPICAL ×2 (04:58→20:40)
[2019-07-30] MEDS: Escitalopram Oxalate 20 MG Tablet PO (04:58)
[2019-07-30] MEDS: Pantoprazole Sodium 40 MG Tablet PO (04:58)
[2019-07-30] MEDS: Nystatin Powder 15gm Bottle 1 APPLIC TOPICAL ×2 (04:58→20:45)
[2019-07-30] MEDS: Enoxaparin 60 MG/0.6 ML Syringe SC ×2 (05:01→17:16)
[2019-07-30] MEDS: Lidocaine 5% Patch 1 PATCH TOPICAL (10:23)
[2019-07-30 15:33] VITALS: BP 129/59; PULSE 80; RESP 16; TEMP 36.6; O2SAT 97
[2019-07-30] MEDS: oxyCODONE 5 MG Tablet 10 MG PO (20:40)
[2019-07-30] MEDS: Atorvastatin Calcium 80 MG Tablet PO (20:48)
[2019-07-30] MEDS: Gabapentin 600 MG Tablet PO (20:48)
[2019-07-30] MEDS: MELATONIN 10 MG TABLET PO (20:48)
[2019-07-31] MEDS: Menthol/Lanolin/Calamine/Znox 113 GM Tube 1 APPLIC TOPICAL ×2 (05:30→22:41)
[2019-07-31] MEDS: Nystatin Powder 15gm Bottle 1 APPLIC TOPICAL ×2 (05:30→22:41)
[2019-07-31] MEDS: traMADol 50 MG Tablet PO (05:31)
[2019-07-31] MEDS: Metoclopramide 10 MG Tablet PO ×4 (05:32→22:36)
[2019-07-31] MEDS: Acyclovir 200 MG Capsule 400 MG PO ×2 (05:32→17:23)
[2019-07-31] MEDS: Atenolol 25 MG Tablet PO (05:32)
[2019-07-31] MEDS: Pantoprazole Sodium 40 MG Tablet PO (05:32)
[2019-07-31] MEDS: buPROPion (SR) 150 MG Tablet.SA PO ×2 (05:32→17:23)
[2019-07-31] MEDS: Polyethylene Glycol 3350 17 GM PACKET PO (05:32)
[2019-07-31] MEDS: Senna/Docusate Sodium 1 Tablet 2 TABLET PO ×2 (05:32→17:23)
[2019-07-31] MEDS: Acetaminophen 500 MG Tablet 1000 MG PO ×3 (05:32→22:35)
[2019-07-31] MEDS: Escitalopram Oxalate 20 MG Tablet PO (05:32)
[2019-07-31] MEDS: Enoxaparin 60 MG/0.6 ML Syringe SC ×2 (05:36→17:23)
[2019-07-31] MEDS: Lidocaine 5% Patch 1 PATCH TOPICAL (10:30)
[2019-07-31] MEDS: oxyCODONE 5 MG Tablet 10 MG PO ×2 (10:43→22:34)
[2019-07-31 15:37] VITALS: BP 130/62; PULSE 78; RESP 17; TEMP 36.6; O2SAT 96
[2019-07-31] MEDS: MELATONIN 10 MG TABLET PO (22:36)
[2019-07-31] MEDS: Atorvastatin Calcium 80 MG Tablet PO (22:37)
[2019-07-31] MEDS: Gabapentin 600 MG Tablet PO (22:39)
[2019-08-01] MEDS: Nystatin Powder 15gm Bottle 1 APPLIC TOPICAL ×2 (06:54→22:03)
[2019-08-01] MEDS: Menthol/Lanolin/Calamine/Znox 113 GM Tube 1 APPLIC TOPICAL ×2 (06:55→22:03)
[2019-08-01] MEDS: Enoxaparin 60 MG/0.6 ML Syringe SC ×2 (06:56→17:26)
[2019-08-01] MEDS: Acyclovir 200 MG Capsule 400 MG PO ×2 (06:56→17:27)
[2019-08-01] MEDS: Escitalopram Oxalate 20 MG Tablet PO (06:56)
[2019-08-01] MEDS: buPROPion (SR) 150 MG Tablet.SA PO ×2 (06:56→17:27)
[2019-08-01] MEDS: Metoclopramide 10 MG Tablet PO ×4 (06:56→22:05)
[2019-08-01] MEDS: Atenolol 25 MG Tablet PO (06:56)
[2019-08-01] MEDS: Pantoprazole Sodium 40 MG Tablet PO (06:56)
[2019-08-01] MEDS: Acetaminophen 500 MG Tablet 1000 MG PO ×3 (06:57→22:04)
[2019-08-01] MEDS: Senna/Docusate Sodium 1 Tablet 2 TABLET PO ×2 (06:59→17:27)
[2019-08-01] MEDS: Lidocaine 5% Patch 1 PATCH TOPICAL (09:50)
[2019-08-01 15:51] VITALS: BP 143/73; PULSE 86; RESP 16; TEMP 36.1; O2SAT 96
--- NOTE | 2019-08-01 16:34 | CHAPLAIN ---
Type of Pastoral Visit ___ Initial Visit _x__ Follow-up Visit ___ On-call Visit ___ General Patient Visit ___ Spiritual Assessment ___ Family Conference ___ Bereavement ___ Rapid Response ___ Code Blue ___ Other (describe below) Pastoral Care Referral From _x__ Patient ___ Family ___ Nurse ___ Physician ___ Irrigation Teacher ___ End Maker ___ Other (describe below) Sacrament/Intervention ___ Active listening ___ Anointing ___ Lutheran ___ Bereavement ___ Communion ___ Orly exploration ___ ___ Life review ___ Prayer ___ Reconciliation ___ Sacrament of Sick _x__ Supportive presence ___ Wedding ___ Other (describe below) Pastoral Comments started the CD player for her and gave her another CD from the Bible collection; casual conversation as she waited for family/friends
[2019-08-01] MEDS: Atorvastatin Calcium 80 MG Tablet PO (22:05)
[2019-08-01] MEDS: Gabapentin 600 MG Tablet PO (22:05)
[2019-08-01] MEDS: MELATONIN 10 MG TABLET PO (22:07)
[2019-08-01 22:10] VITALS: RESP 16
[2019-08-02] MEDS: Nystatin Powder 15gm Bottle 1 APPLIC TOPICAL ×2 (06:26→22:42)
[2019-08-02] MEDS: Menthol/Lanolin/Calamine/Znox 113 GM Tube 1 APPLIC TOPICAL ×2 (06:26→22:42)
[2019-08-02] MEDS: Escitalopram Oxalate 20 MG Tablet PO (06:27)
[2019-08-02] MEDS: buPROPion (SR) 150 MG Tablet.SA PO ×2 (06:27→17:12)
[2019-08-02] MEDS: Acyclovir 200 MG Capsule 400 MG PO ×2 (06:27→17:12)
[2019-08-02] MEDS: Senna/Docusate Sodium 1 Tablet 2 TABLET PO ×2 (06:27→17:12)
[2019-08-02] MEDS: Pantoprazole Sodium 40 MG Tablet PO (06:27)
[2019-08-02] MEDS: Enoxaparin 60 MG/0.6 ML Syringe SC ×2 (06:27→17:11)
[2019-08-02] MEDS: Acetaminophen 500 MG Tablet 1000 MG PO ×3 (06:27→22:42)
[2019-08-02] MEDS: Metoclopramide 10 MG Tablet PO ×4 (06:27→22:41)
[2019-08-02] MEDS: Atenolol 25 MG Tablet PO (06:27)
[2019-08-02] MEDS: Polyethylene Glycol 3350 17 GM PACKET PO (06:28)
[2019-08-02] MEDS: dexAMETHasone 4 MG Tablet 40 MG PO (08:14)
--- NOTE | 2019-08-02 09:58 | PCA ---
Weight was Taken in recliner chair, recliner alone than with patient subtract recliner to get weight
[2019-08-02] MEDS: Lidocaine 5% Patch 1 PATCH TOPICAL (10:51)
[2019-08-02 15:34] VITALS: BP 122/50; PULSE 81; RESP 16; TEMP 36.6; O2SAT 97
[2019-08-02] MEDS: MELATONIN 10 MG TABLET PO (22:41)
[2019-08-02] MEDS: Atorvastatin Calcium 80 MG Tablet PO (22:41)
[2019-08-02] MEDS: Gabapentin 600 MG Tablet PO (22:41)
[2019-08-03] MEDS: Escitalopram Oxalate 20 MG Tablet PO (05:42)
[2019-08-03] MEDS: Acyclovir 200 MG Capsule 400 MG PO ×2 (05:42→17:35)
[2019-08-03] MEDS: Pantoprazole Sodium 40 MG Tablet PO (05:42)
[2019-08-03] MEDS: Atenolol 25 MG Tablet PO (05:42)
[2019-08-03] MEDS: buPROPion (SR) 150 MG Tablet.SA PO ×2 (05:42→17:35)
[2019-08-03] MEDS: Senna/Docusate Sodium 1 Tablet 2 TABLET PO (05:43)
[2019-08-03] MEDS: Acetaminophen 500 MG Tablet 1000 MG PO ×3 (05:43→21:13)
[2019-08-03] MEDS: Polyethylene Glycol 3350 17 GM PACKET PO (05:47)
[2019-08-03] MEDS: Enoxaparin 60 MG/0.6 ML Syringe SC ×2 (05:48→17:35)
[2019-08-03] MEDS: Nystatin Powder 15gm Bottle 1 APPLIC TOPICAL ×2 (05:53→21:19)
[2019-08-03] MEDS: Menthol/Lanolin/Calamine/Znox 113 GM Tube 1 APPLIC TOPICAL ×2 (05:53→21:16)
[2019-08-03 06:01] LABS: Absolute Lymphocyte Count 1.61 X10^3/uL (0.83-4.51); Absolute Neutrophil Count 10.8 X10^3/uL (2.0-7.7); Basophil# 0.02 X10^3/uL; Basophil% 0.1 % (0-1); Eosinophil# 0.02 X10^3/uL; Eosinophils% 0.1 % (0-5); Hematocrit 31.5 % (37-47); Hemoglobin 10.3 g/dL (12.0-15.0); Lymphocyte # 1.61 X10^3/ul (4.0); Lymphocyte % 9.5 % (19-41); Mean Corp Hgb Conc 32.7 g/dL (32-36); Mean Corpuscular Hgb 34.4 pg (27.0-32.0); Mean Corpuscular Volume 105.4 fL (81-99); Monocyte# 4.32 X10^3/uL; Monocyte% 25.4 % (0-10); NRBC Flagged by Analyzer 0 % (0-5); Neutrophil # 10.81 X10^3/uL (2.7-7.7); Neutrophil % 63.6 % (47-70); POSITIVE DIFFERENTIAL YES; Platelet Count 181 K/mm3 (150-450); RBC Distribution Width CV 14.6 % (11.6-14.6); Red Blood Count 2.99 M/mm3 (4.2-5.4)
[2019-08-03 06:15] LABS: Differential Indicated SCAN CRITERIA MET
[2019-08-03 06:17] LABS: Anion Gap 8 (5-15); BUN 21 mg/dL (7-18); BUN/Creat Ratio 28.2 RATIO (10-20); Calcium,Total 8.5 mg/dL (8.5-10.1); Chloride 108 mmol/L (98-107); Creatinine, Serum 0.74 mg/dL (0.55-1.02); EST Glomerular Filtration Rate 81 mL/min (>60); Est Glom Filt Rate - Afr Amer 98 mL/min (>60); Estimated Creatinine Clearance 41.97 ml/min; Glucose 98 mg/dL (74-106); Potassium 3.6 mmol/L (3.5-5.1); Sodium Level 142 mmol/L (136-145)
[2019-08-03 09:38] LABS: Pathologist Review Reviewed
[2019-08-03] MEDS: Lidocaine 5% Patch 1 PATCH TOPICAL (11:03)
--- NOTE | 2019-08-03 11:04 | NURSING ---
Pt states she has been felling good this week so far and does not feel she is in need of scheduled Reglan. Charge nurse notified.
[2019-08-03 15:41] VITALS: BP 104/36; PULSE 75; RESP 16; TEMP 36.6; O2SAT 95
[2019-08-03] MEDS: MELATONIN 10 MG TABLET PO (21:15)
[2019-08-03] MEDS: Gabapentin 600 MG Tablet PO (21:15)
[2019-08-03] MEDS: Atorvastatin Calcium 80 MG Tablet PO (21:15)
[2019-08-03] MEDS: oxyCODONE 5 MG Tablet 10 MG PO (22:45)
[2019-08-04] MEDS: Menthol/Lanolin/Calamine/Znox 113 GM Tube 1 APPLIC TOPICAL ×2 (06:53→20:40)
[2019-08-04] MEDS: Nystatin Powder 15gm Bottle 1 APPLIC TOPICAL ×2 (06:53→20:40)
[2019-08-04] MEDS: Pantoprazole Sodium 40 MG Tablet PO (06:55)
[2019-08-04] MEDS: Enoxaparin 60 MG/0.6 ML Syringe SC ×2 (06:55→17:12)
[2019-08-04] MEDS: Atenolol 25 MG Tablet PO (06:55)
[2019-08-04] MEDS: Acyclovir 200 MG Capsule 400 MG PO ×2 (06:56→17:11)
[2019-08-04] MEDS: Acetaminophen 500 MG Tablet 1000 MG PO ×3 (06:56→20:36)
[2019-08-04] MEDS: buPROPion (SR) 150 MG Tablet.SA PO ×2 (06:56→17:11)
[2019-08-04] MEDS: Escitalopram Oxalate 20 MG Tablet PO (06:57)
[2019-08-04 07:06] VITALS: BP 137/46; PULSE 94; RESP 18; TEMP 36.9; O2SAT 95
[2019-08-04] MEDS: Lidocaine 5% Patch 1 PATCH TOPICAL (09:12)
[2019-08-04 16:00] VITALS: BP 111/47; PULSE 72; RESP 16; TEMP 36.7; O2SAT 96
[2019-08-04 20:35] VITALS: RESP 16
[2019-08-04] MEDS: Gabapentin 600 MG Tablet PO (20:36)
[2019-08-04] MEDS: Atorvastatin Calcium 80 MG Tablet PO (20:38)
[2019-08-04] MEDS: MELATONIN 10 MG TABLET PO (20:38)
[2019-08-05] MEDS: Enoxaparin 60 MG/0.6 ML Syringe SC ×2 (05:42→17:11)
[2019-08-05] MEDS: Atenolol 25 MG Tablet PO (05:44)
[2019-08-05] MEDS: Acetaminophen 500 MG Tablet 1000 MG PO ×3 (05:44→22:14)
[2019-08-05] MEDS: Escitalopram Oxalate 20 MG Tablet PO (05:44)
[2019-08-05] MEDS: Senna/Docusate Sodium 1 Tablet 2 TABLET PO (05:44)
[2019-08-05] MEDS: Acyclovir 200 MG Capsule 400 MG PO ×2 (05:44→17:16)
[2019-08-05] MEDS: buPROPion (SR) 150 MG Tablet.SA PO ×2 (05:44→17:15)
[2019-08-05] MEDS: Pantoprazole Sodium 40 MG Tablet PO (05:44)
[2019-08-05] MEDS: Menthol/Lanolin/Calamine/Znox 113 GM Tube 1 APPLIC TOPICAL ×2 (05:47→22:09)
[2019-08-05] MEDS: Nystatin Powder 15gm Bottle 1 APPLIC TOPICAL ×2 (05:47→22:16)
[2019-08-05 10:00] VITALS: RESP 16
[2019-08-05] MEDS: Lidocaine 5% Patch 1 PATCH TOPICAL (11:30)
--- NOTE | 2019-08-05 12:55 | NURSING ---
Urinary drainage bag changed due to current drainage bag leaking.
[2019-08-05 16:00] VITALS: BP 142/74; PULSE 85; RESP 17; TEMP 36.8; O2SAT 95
[2019-08-05] MEDS: oxyCODONE 5 MG Tablet 10 MG PO (22:03)
[2019-08-05] MEDS: MELATONIN 10 MG TABLET PO (22:12)
[2019-08-05] MEDS: Atorvastatin Calcium 80 MG Tablet PO (22:12)
[2019-08-05] MEDS: Gabapentin 600 MG Tablet PO (22:37)
[2019-08-06 06:25] VITALS: BP 153/75; PULSE 85; RESP 18; O2SAT 96
[2019-08-06] MEDS: traMADol 50 MG Tablet PO (06:29)
[2019-08-06] MEDS: Enoxaparin 60 MG/0.6 ML Syringe SC ×2 (06:30→17:45)
[2019-08-06] MEDS: Atenolol 25 MG Tablet PO (06:31)
[2019-08-06] MEDS: Acyclovir 200 MG Capsule 400 MG PO ×2 (06:31→17:47)
[2019-08-06] MEDS: buPROPion (SR) 150 MG Tablet.SA PO ×2 (06:32→17:46)
[2019-08-06] MEDS: Escitalopram Oxalate 20 MG Tablet PO (06:32)
[2019-08-06] MEDS: Acetaminophen 500 MG Tablet 1000 MG PO ×3 (06:32→20:30)
[2019-08-06] MEDS: Pantoprazole Sodium 40 MG Tablet PO (06:32)
[2019-08-06] MEDS: Menthol/Lanolin/Calamine/Znox 113 GM Tube 1 APPLIC TOPICAL ×2 (06:35→20:32)
[2019-08-06] MEDS: Nystatin Powder 15gm Bottle 1 APPLIC TOPICAL ×2 (06:35→20:33)
[2019-08-06] MEDS: Lidocaine 5% Patch 1 PATCH TOPICAL (11:02)
[2019-08-06 16:00] VITALS: BP 154/63; PULSE 71; RESP 16; TEMP 36.6; O2SAT 96
[2019-08-06] MEDS: Senna/Docusate Sodium 1 Tablet 2 TABLET PO (17:46)
[2019-08-06] MEDS: oxyCODONE 5 MG Tablet 10 MG PO (20:28)
[2019-08-06] MEDS: Atorvastatin Calcium 80 MG Tablet PO (20:29)
[2019-08-06] MEDS: MELATONIN 10 MG TABLET PO (20:29)
[2019-08-06] MEDS: Gabapentin 600 MG Tablet PO (20:30)
[2019-08-06 23:30] VITALS: RESP 16
[2019-08-07] MEDS: oxyCODONE 5 MG Tablet 10 MG PO ×3 (01:56→22:57)
[2019-08-07] MEDS: Enoxaparin 60 MG/0.6 ML Syringe SC ×2 (07:30→17:18)
[2019-08-07] MEDS: Acyclovir 200 MG Capsule 400 MG PO ×2 (07:31→17:19)
[2019-08-07] MEDS: Polyethylene Glycol 3350 17 GM PACKET PO (07:31)
[2019-08-07] MEDS: Acetaminophen 500 MG Tablet 1000 MG PO ×3 (07:33→20:43)
[2019-08-07] MEDS: Senna/Docusate Sodium 1 Tablet 2 TABLET PO ×2 (07:33→17:19)
[2019-08-07] MEDS: Menthol/Lanolin/Calamine/Znox 113 GM Tube 1 APPLIC TOPICAL ×2 (07:35→20:41)
[2019-08-07] MEDS: Nystatin Powder 15gm Bottle 1 APPLIC TOPICAL ×2 (07:35→21:00)
[2019-08-07] MEDS: Atenolol 25 MG Tablet PO (07:36)
[2019-08-07] MEDS: Pantoprazole Sodium 40 MG Tablet PO (07:36)
[2019-08-07] MEDS: buPROPion (SR) 150 MG Tablet.SA PO ×2 (07:37→17:19)
[2019-08-07] MEDS: Escitalopram Oxalate 20 MG Tablet PO (07:37)
[2019-08-07] MEDS: Lidocaine 5% Patch 1 PATCH TOPICAL (09:28)
[2019-08-07 09:35] VITALS: PULSE 80; RESP 18; O2SAT 97
[2019-08-07 15:55] VITALS: BP 131/68; PULSE 87; RESP 18; TEMP 36.6; O2SAT 97
[2019-08-07] MEDS: MELATONIN 10 MG TABLET PO (20:43)
[2019-08-07] MEDS: Gabapentin 600 MG Tablet PO (20:43)
[2019-08-07] MEDS: Atorvastatin Calcium 80 MG Tablet PO (20:43)
[2019-08-08] MEDS: Enoxaparin 60 MG/0.6 ML Syringe SC ×2 (06:18→17:21)
[2019-08-08] MEDS: Polyethylene Glycol 3350 17 GM PACKET PO (06:18)
[2019-08-08] MEDS: Senna/Docusate Sodium 1 Tablet 2 TABLET PO ×2 (06:19→17:21)
[2019-08-08] MEDS: Atenolol 25 MG Tablet PO (06:20)
[2019-08-08] MEDS: Pantoprazole Sodium 40 MG Tablet PO (06:20)
[2019-08-08] MEDS: Escitalopram Oxalate 20 MG Tablet PO (06:20)
[2019-08-08] MEDS: buPROPion (SR) 150 MG Tablet.SA PO ×2 (06:20→17:21)
[2019-08-08] MEDS: Acetaminophen 500 MG Tablet 1000 MG PO ×3 (06:20→20:30)
[2019-08-08] MEDS: Acyclovir 200 MG Capsule 400 MG PO ×2 (06:20→17:21)
[2019-08-08] MEDS: Menthol/Lanolin/Calamine/Znox 113 GM Tube 1 APPLIC TOPICAL ×2 (06:24→20:33)
[2019-08-08] MEDS: Nystatin Powder 15gm Bottle 1 APPLIC TOPICAL ×2 (06:24→20:34)
[2019-08-08] MEDS: Lidocaine 5% Patch 1 PATCH TOPICAL (09:49)
--- NOTE | 2019-08-08 09:49 | PN_ITS ---
Subjective: Resident seen in room, sitting up in chair. She is mildly discouraged, but understandable. Her major complaint is neuropathic pain in her legs, she feels it interferes with sleep at night, and it bothers her. She feels the pain is like when her legs are asleep, and they start to wake up. Her appetite is decreased, but she is eating enough, we discussed her progress, I think she is improving with therapy, but reiterated the therapy process is often a slow process, but slow and steady wins the race. Vitals/I&O's: Vital Signs Temp Pulse Resp BP Pulse Ox 97.9 F 87 18 131/68 H 97 08/07/19 15:55 08/07/19 15:55 08/07/19 15:55 08/07/19 15:55 08/07/19 15:55 Oxygen Delivery Method Room Air Weight: 62.823 kg Body Mass Index (BMI) 25.0 Finger Stick Blood Glucose 101 Intake and Output for Last 24 Hours 08/06/19 08/07/19 08/08/19 23:59 23:59 23:59 Intake Total 480 / 480 600 / 600 120 / 120 Output Total 700 / 700 600 / 600 300 / 300 Balance -220 / -220 0 / 0 -180 / -180 Past Medical History Past Medical History (Chronic Problems): Chronic Problems (Last Reviewed 07/21/19 @ 12:44 by Bruno Weber MD) Stroke (Chronic) HLD (hyperlipidemia) (Chronic) Anxiety and depression (Chronic) Essential tremor (Chronic) Myelodysplasia (myelodysplastic syndrome) (Chronic) Low back pain (Chronic) Vascular dementia (Chronic) Hypertension (Chronic) Neuropathic pain (Chronic) Left hemiparesis (Chronic) Depression (Chronic) Anxiety (Chronic) Cerebrovascular disease (Chronic) Macrocytosis (Chronic) MDS (myelodysplastic syndrome), low grade (Chronic) Myeloma (Chronic) Lung nodule (Chronic) Left upper lobe, May 2018 Liver lesion, right lobe (Chronic) Negative biopsy for malignancy June 29, 2018 Anemia (Chronic) Tremor (Chronic) Cognitive dysfunction (Chronic) Meningioma (Chronic) Medical History: Medical History (Last Reviewed 07/21/19 @ 12:44 by Bruno Weber MD) Cellulitis L03.90 left eye History of hysterectomy Z90.710 Meningioma D32.9 Gamma knife at [facility] ~2000 Osteopenia M85.80 Stroke I63.9 X2 - HOSPITALIZATION FOR 5 DAYS Allergies morphine Adverse Reaction (Severe, Verified 06/28/19 15:22) Nausea Home Medications: Ambulatory Orders Medication Instructions Recorded Enoxaparin [Lovenox] 60 mg SUBCUT Q12@0600,1800 05/31/19 Acyclovir [Zovirax] 400 mg PO BID 06/28/19 Atorvastatin Calcium [Lipitor] 80 mg PO QHS 06/28/19 Escitalopram Oxalate [Lexapro] 10 mg PO DAILY 06/28/19 Gabapentin [Neurontin] 200 mg PO BID 06/28/19 Hydrocodone/Acetaminophen 1 tab PO Q4H PRN PRN 06/28/19 [Hydrocodone-Acetamin 5-325 mg] Acetaminophen 1,000 mg PO Q8H 07/12/19 Albuterol Sulfate [Albuterol 2 puff IH Q4H PRN PRN 07/12/19 Sulfate Hfa] Atenolol 25 mg PO DAILY 07/12/19 Docusate Sodium [Colace] 100 mg PO BID 07/12/19 Ipratropium/Albuterol Sulfate 3 ml INHALATION Q4H.RT 07/12/19 [Duoneb] Lidocaine [Lidocaine Pain Relief] 1 ea TP DAILY@1000 07/12/19 Oxycodone [Oxyir] 5 mg PO Q4H PRN PRN 07/12/19 Pantoprazole Sodium [Protonix] 40 mg PO DAILY 07/12/19 Sennosides/Docusate Sodium 1 tab PO BID 07/12/19 [Senna-S Tablet] Surgical History: Surgical History (Last Reviewed 06/28/19 @ 11:52 by Anika Choudhary) History of cholecystectomy Z90.49 Surgical History: cholecystectomy, hysterectomy, tonsillectomy, - - Gamma knife meningioma. 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 Paternal Family History: Family History (Last Reviewed 06/28/19 @ 11:52 by Anika Choudhary) Mother Breast cancer Sister Breast cancer Aunt Breast cancer Daughter History of malignant melanoma Father Brain cancer Brother Lung cancer History Items: Cancer - Father with history of brain cancer. Capacity - Capacity Assessment Tool Can the patient make a choice & communicate that choice?: Yes Can the patient understand benefits, risks and alternatives?: Yes Can the patient make a logical, rational choice?: Yes Is the choice the patient makes consistent w/ their values?: Yes Is there an impending, emergent risk to the patient?: No Does the patient have an Advance Directive?: No Is there a Surrogate Available?: Yes i.e. HCPOA: Yes i.e. close relative (spouse, child, parent, sibling)?: Yes Review of Systems Constitutional: Denies: Chills, Fever, Weight Change HEENT: Denies: Head Aches, Sinus Congestion, Sinus Drainage Cardiovascular: Denies: Chest Pain, Palpitations Respiratory: Denies: Cough, Shortness of breath at rest, Sputum production Gastrointestinal: Denies: Abdominal Pain, Nausea, Vomiting Genitourinary: Denies: Dysuria Musculoskeletal: Denies: Joint Pain, Joint Tenderness Skin: Denies: Rash, Wounds Neurological: Reports: Numbness - bilateral legs from knees down., Tingling - bilateral legs from knees down.. Denies: Focal weakness Psychiatric: Denies: Anxiety, Depression, Homicidal Ideations, Suicidal Ideations Hematologic/ Lymphatic: Denies: Easy Bruising, Easy Bleeding Patient Problems: Active and Suspected Problems (Last Reviewed 07/21/19 @ 12:44 by Bruno Weber MD) Debility (Acute) Epidural hematoma (Acute) Cauda equina syndrome (Acute) Hypotension (Acute) Hypophosphatemia (Acute) - Physical Exam Vitals/I&O's: Vital Signs Temp Pulse Resp BP Pulse Ox 97.9 F 87 18 131/68 H 97 08/07/19 15:55 08/07/19 15:55 08/07/19 15:55 08/07/19 15:55 08/07/19 15:55 Oxygen Delivery Method Room Air Weight: 62.823 kg Body Mass Index (BMI) 25.0 Finger Stick Blood Glucose 101 Intake and Output for Last 24 Hours 1208/07/19 08/08/19 23:59 23:59 23:59 Intake Total 480 / 480 600 / 600 120 / 120 Output Total 700 / 700 600 / 600 300 / 300 Balance -220 / -220 0 / 0 -180 / -180 General: Alert, Oriented x3, Cooperative HEENT: Atraumatic, PERRLA, EOMI, Normocephalic Neck: Supple, No JVD, Negative Carotid Bruits Lungs: Clear to auscultation, Normal air movement Cardiovascular: Regular rate, No murmurs Abdomen: Bowel Sounds Present, Soft, Non Tender Extremities: No edema, Capillary Refill Less than 3 Seconds Skin: No rashes, No breakdown Musculoskeletal: No Tenderness to Palpation of Joints or Extremities Neurological: Cranial nerves II-XII grossly intact Psych/Mental Status: Normal Affect, Appropriate Current Medications Acetaminophen (Tylenol) 1,000 mg PO TID [facility] Last Admin: 08/08/19 06:20 Dose: 1,000 mg Documented by: Acyclovir (Zovirax) 400 mg PO BID [facility] Last Admin: 08/08/19 06:20 Dose: 400 mg Documented by: Albuterol Sulfate (Ventolin Hfa (Sp)) 2 puff INHALATION Q4H PRN PRN PRN Reason: WHEEZING Albuterol/Ipratropium (Duoneb) 3 ml INHALATION Q4H.RT PRN PRN Reason: SHORTNESS OF BREATH Atenolol (Tenormin (Beta Joann)) 25 mg PO DAILY [facility] Last Admin: 08/08/19 06:20 Dose: 25 mg Documented by: Atorvastatin Calcium (Lipitor) 80 mg PO QHS [facility] Last Admin: 08/07/19 20:43 Dose: 80 mg Documented by: Bisacodyl (Dulcolax) 10 mg PO DAILY PRN PRN Reason: Constipation Last Admin: 07/29/19 11:33 Dose: 10 mg Documented by: Bisacodyl (Dulcolax) 10 mg RECTAL X1 PRN PRN Reason: Constipation Bupropion HCl (Wellbutrin Sr (150mg Tablets)) 150 mg PO BID [facility] Last Admin: 08/08/19 06:20 Dose: 150 mg Documented by: Calamine/Phenol (Calmoseptine Ointment) 1 applic TOPICAL 0600,2200 [facility]; Protoco l Last Admin: 08/08/19 06:24 Dose: 1 applicatio Documented by: Calcium Carbonate (Tums) 500 mg PO Q6H PRN PRN PRN Reason: HEARTBURN Dexamethasone (Decadron) 40 mg PO We@0800 [facility] Last Admin: 08/02/19 08:14 Dose: 40 mg Documented by: Enoxaparin Sodium (Lovenox) 60 mg SC Q12@0600,1800 [facility] Last Admin: 08/08/19 06:18 Dose: 60 mg Documented by: Escitalopram Oxalate (Lexapro) 20 mg PO DAILY [facility] Last Admin: 08/08/19 06:20 Dose: 20 mg Documented by: Gabapentin (Neurontin) 600 mg PO QHS [facility] Last Admin: 08/07/19 20:43 Dose: 600 mg Documented by: Lidocaine (Lidoderm Patch) 1 patch TOPICAL DAILY@1000 [facility] Last Admin: 08/07/19 09:28 Dose: 1 patch Documented by: Melatonin (Melatonin) 10 mg PO QHS [facility] Last Admin: 08/07/19 20:43 Dose: 10 mg Documented by: Multi-Ingredient Cream (Eucerin) 1 applic TOPICAL QHS [facility]; Protocol Last Admin: 08/07/19 20:42 Dose: 1 applicatio Documented by: Nystatin (Mycostatin Powder) 1 applic TOPICAL 0600,2200 [facility]; Protocol Last Admin: 08/08/19 06:24 Dose: 1 applicatio Documented by: Oxycodone HCl (Oxyir) 10 mg PO Q4H PRN PRN PRN Reason: Pain Score 6-10/10 Last Admin: 08/07/19 22:57 Dose: 10 mg Documented by: Pantoprazole Sodium (Protonix) 40 mg PO DAILY [facility] Last Admin: 08/08/19 06:20 Dose: 40 mg Documented by: Polyethylene Glycol (Miralax) 17 gm PO DAILY [facility] Last Admin: 08/08/19 06:18 Dose: 17 gm Documented by: Promethazine HCl (Phenergan Tablet) 25 mg PO Q4H PRN PRN PRN Reason: NAUSEA/VOMITING Senna/Docusate Sodium (Senokot-S, Kassy-Colace) 2 tablet PO BID [facility] Last Admin: 08/08/19 06:19 Dose: 2 tablet Documented by: Tramadol HCl (Ultram) 50 mg PO Q6H PRN PRN PRN Reason: Pain Score 1-5/10 Last Admin: 08/06/19 06:29 Dose: 50 mg Documented by: Assessment/Plan All Active Problems (Last Reviewed 07/21/19 @ 12:44 by Bruno Weber MD) Chemotherapy management, encounter for (Acute) Intractable back pain (Acute) Debility (Acute) Epidural hematoma (Acute) Cauda equina syndrome (Acute) Hypotension (Acute) Hypophosphatemia (Acute) PFO (patent foramen ovale) (Ruled-out) 74 year old female with below past medical history significant for low back pain, multiple myeloma, stroke, hospitalized for large epidural hematoma, underwent posterior lumbar decompression with hematoma evacuation 06/29/2019, complicated by hypotension, hypophosphatemia, admitted to TCU with debility, here for rehabilitation, strengthening, prior to discharge home with . * Debility - PT/OT. * Pain - Tylenol 1000MG TID, Tramadol 50MG Q6H PRN pain (1-5), Oxycodone 10MG Q4H PRN pain (6-10), Lidoderm patch 1 patch daily. * Bowel - Miralax 17GM daily, Senna/colace 2 tablets BID, Dulcolax 10MG daily PRN, Dulcolax 10MG NV daily PRN. * Adult immunization - Administer Prevnar 13, Pneumovax 23, Fluzone as necessary. * DVT prophylaxis - Not necessary, already anticoagulated. * Myelodysplastic syndrome - Acyclovir 400MG BID antiviral prophylaxis. * Multiple Myeloma - Revlimid stopped due to increasing risk of strokes, Dexamethasone 40MG Qweek. * Shortness of breath - Duoneb 3ML Q4H PRN, Albuterol 2 puffs Q4H PRN. * Essential tremor - Atenolol 25MG daily. * Hyperlipidemia - High intensity Atorvastatin 80MG daily due to recent strokes x 2. * Stroke with left hemiparesis - Failed Eliquis, on Lovenox 60MG SC Q12H. * Depression - Lexapro 20MG daily, Wellbutrin 150MG BID. * Neuropathic pain - Not well controlled, Increase Gabapentin to 1200MG QHS, add Gabapentin 600MG BID PRN neuropathic pain. * GERD - Pantoprazole 40MG daily, TUMS 500MG Q6H PRN. * Urinary retention - Improved, botello catheter discontinued. * Skin irritation - Calmoseptine BID, Eucerin topical QHS. * Tinea Corporis - Nystatin powder BID. * Insomnia - Melatonin 10MG QHS. * Nausea - Phenergan 25MG Q4H PRN.
[2019-08-08] MEDS: oxyCODONE 5 MG Tablet 10 MG PO (09:54)
--- NOTE | 2019-08-08 15:38 | CHAPLAIN ---
Type of Pastoral Visit ___ Initial Visit _x__ Follow-up Visit ___ On-call Visit ___ General Patient Visit ___ Spiritual Assessment ___ Family Conference ___ Bereavement ___ Rapid Response ___ Code Blue ___ Other (describe below) Pastoral Care Referral From _x__ Patient ___ Family ___ Nurse ___ Physician ___ Postdoctoral Research Fellow ___ Voice Data Communications Engineer ___ Other (describe below) Sacrament/Intervention _x__ Active listening ___ Anointing ___ Zoroastrianism ___ Bereavement ___ Communion ___ Orly exploration ___ ___ Life review _x__ Prayer ___ Reconciliation ___ Sacrament of Sick ___ Supportive presence ___ Wedding ___ Other (describe below) Pastoral Comments
[2019-08-08 15:45] VITALS: BP 116/60; PULSE 74; RESP 20; TEMP 36.3; O2SAT 97
[2019-08-08] MEDS: Bisacodyl 5 MG Tablet 10 MG PO (17:21)
--- NOTE | 2019-08-08 17:25 | NURSING ---
NO BM IN 3 DAYS. PRN DULCOLAX GIVEN PO. REPORTED TO NAYAN NUÑEZ
[2019-08-08] MEDS: Gabapentin 600 MG Tablet 1200 MG PO (20:30)
[2019-08-08] MEDS: Atorvastatin Calcium 80 MG Tablet PO (20:30)
[2019-08-08] MEDS: MELATONIN 10 MG TABLET PO (20:30)
[2019-08-09] MEDS: Polyethylene Glycol 3350 17 GM PACKET PO (04:35)
[2019-08-09] MEDS: Menthol/Lanolin/Calamine/Znox 113 GM Tube 1 APPLIC TOPICAL ×2 (04:38→21:10)
[2019-08-09] MEDS: Escitalopram Oxalate 20 MG Tablet PO (04:38)
[2019-08-09] MEDS: Pantoprazole Sodium 40 MG Tablet PO (04:38)
[2019-08-09] MEDS: Acyclovir 200 MG Capsule 400 MG PO ×2 (04:38→17:46)
[2019-08-09] MEDS: Senna/Docusate Sodium 1 Tablet 2 TABLET PO (04:38)
[2019-08-09] MEDS: buPROPion (SR) 150 MG Tablet.SA PO ×2 (04:38→17:46)
[2019-08-09] MEDS: Atenolol 25 MG Tablet PO (04:38)
[2019-08-09] MEDS: Nystatin Powder 15gm Bottle 1 APPLIC TOPICAL ×2 (04:39→21:10)
[2019-08-09] MEDS: Acetaminophen 500 MG Tablet 1000 MG PO ×3 (04:39→21:09)
[2019-08-09] MEDS: Enoxaparin 60 MG/0.6 ML Syringe SC ×2 (04:44→17:45)
[2019-08-09] MEDS: Lidocaine 5% Patch 1 PATCH TOPICAL (08:09)
[2019-08-09] MEDS: dexAMETHasone 4 MG Tablet 40 MG PO (08:09)
--- NOTE | 2019-08-09 12:27 | NURSING ---
R' BACK FROM APPT WITH DR. BARAJAS. NO NEW ORDERS. LABS WERE TAKEN AT OFFICE TODAY. OFFICE WILL CALL R' FOR NEXT APPT ONCE LABS ARE BACK. R' WILL LET STAFF KNOW DATE OF NEXT APPT.
--- NOTE | 2019-08-09 12:31 | PCA ---
Patient had [employer] for lunch
[2019-08-09 15:16] VITALS: BP 129/66; PULSE 57; RESP 18; TEMP 36.5; O2SAT 96
[2019-08-09] MEDS: MELATONIN 10 MG TABLET PO (21:10)
[2019-08-09] MEDS: Atorvastatin Calcium 80 MG Tablet PO (21:10)
[2019-08-09] MEDS: Gabapentin 600 MG Tablet 1200 MG PO (21:10)
[2019-08-10] MEDS: Escitalopram Oxalate 20 MG Tablet PO (04:33)
[2019-08-10] MEDS: Acyclovir 200 MG Capsule 400 MG PO ×2 (04:33→18:15)
[2019-08-10] MEDS: Acetaminophen 500 MG Tablet 1000 MG PO ×3 (04:34→20:07)
[2019-08-10] MEDS: Nystatin Powder 15gm Bottle 1 APPLIC TOPICAL ×2 (04:34→20:08)
[2019-08-10] MEDS: Atenolol 25 MG Tablet PO (04:34)
[2019-08-10] MEDS: Senna/Docusate Sodium 1 Tablet 2 TABLET PO (04:34)
[2019-08-10] MEDS: buPROPion (SR) 150 MG Tablet.SA PO ×2 (04:34→18:15)
[2019-08-10] MEDS: Pantoprazole Sodium 40 MG Tablet PO (04:34)
[2019-08-10] MEDS: Enoxaparin 60 MG/0.6 ML Syringe SC ×2 (04:35→18:14)
[2019-08-10] MEDS: Menthol/Lanolin/Calamine/Znox 113 GM Tube 1 APPLIC TOPICAL ×2 (04:35→20:21)
[2019-08-10 06:01] LABS: Absolute Lymphocyte Count 1.21 X10^3/uL (0.83-4.51); Absolute Neutrophil Count 10.6 X10^3/uL (2.0-7.7); Basophil# 0.02 X10^3/uL; Basophil% 0.1 % (0-1); Eosinophil# 0.02 X10^3/uL; Eosinophils% 0.1 % (0-5); Hematocrit 31.2 % (37-47); Hemoglobin 10.2 g/dL (12.0-15.0); Lymphocyte # 1.21 X10^3/ul (4.0); Lymphocyte % 8.2 % (19-41); Mean Corp Hgb Conc 32.7 g/dL (32-36); Mean Corpuscular Hgb 34.1 pg (27.0-32.0); Mean Corpuscular Volume 104.3 fL (81-99); Mean Platelet Vol. 12.4 fl (6.2-12.0); Monocyte# 2.85 X10^3/uL; Monocyte% 19.2 % (0-10); NRBC Flagged by Analyzer 0 % (0-5); Neutrophil # 10.57 X10^3/uL (2.7-7.7); Neutrophil % 71.3 % (47-70); POSITIVE DIFFERENTIAL YES; Platelet Count 149 K/mm3 (150-450); RBC Distribution Width CV 14.2 % (11.6-14.6); RBC Distribution Width SD 54.1 fl (35.1-43.9); Red Blood Count 2.99 M/mm3 (4.2-5.4); White Blood Count 14.8 K/mm3 (4.4-11.0)
[2019-08-10 06:04] LABS: Differential Indicated SCAN CRITERIA MET
[2019-08-10 06:38] LABS: Anion Gap 6 (5-15); BUN 19 mg/dL (7-18); BUN/Creat Ratio 27.2 RATIO (10-20); Calcium,Total 8.4 mg/dL (8.5-10.1); Chloride 109 mmol/L (98-107); EST Glomerular Filtration Rate 87 mL/min (>60); Est Glom Filt Rate - Afr Amer 105 mL/min (>60); Estimated Creatinine Clearance 41.97 ml/min; Glucose 99 mg/dL (74-106); Potassium 3.7 mmol/L (3.5-5.1); Sodium Level 140 mmol/L (136-145)
[2019-08-10 06:46] LABS: Differential Comment SCANNED
[2019-08-10] MEDS: Lidocaine 5% Patch 1 PATCH TOPICAL (11:04)
[2019-08-10 12:34] LABS: Pathologist Review Reviewed
[2019-08-10 16:00] VITALS: BP 119/56; PULSE 63; RESP 16; TEMP 36.6; O2SAT 97
[2019-08-10] MEDS: MELATONIN 10 MG TABLET PO (20:07)
[2019-08-10] MEDS: Atorvastatin Calcium 80 MG Tablet PO (20:07)
[2019-08-10] MEDS: Gabapentin 600 MG Tablet 1200 MG PO (20:07)
[2019-08-11] MEDS: oxyCODONE 5 MG Tablet 10 MG PO (05:03)
[2019-08-11] MEDS: Senna/Docusate Sodium 1 Tablet 2 TABLET PO ×2 (05:03→17:38)
[2019-08-11] MEDS: Escitalopram Oxalate 20 MG Tablet PO (05:04)
[2019-08-11] MEDS: Pantoprazole Sodium 40 MG Tablet PO (05:04)
[2019-08-11] MEDS: buPROPion (SR) 150 MG Tablet.SA PO ×2 (05:04→17:37)
[2019-08-11] MEDS: Atenolol 25 MG Tablet PO (05:04)
[2019-08-11] MEDS: Acyclovir 200 MG Capsule 400 MG PO ×2 (05:04→17:37)
[2019-08-11] MEDS: Acetaminophen 500 MG Tablet 1000 MG PO ×3 (05:04→21:05)
[2019-08-11] MEDS: Polyethylene Glycol 3350 17 GM PACKET PO (05:07)
[2019-08-11] MEDS: Enoxaparin 60 MG/0.6 ML Syringe SC ×2 (05:14→17:37)
[2019-08-11] MEDS: Menthol/Lanolin/Calamine/Znox 113 GM Tube 1 APPLIC TOPICAL ×2 (05:24→21:12)
[2019-08-11] MEDS: Nystatin Powder 15gm Bottle 1 APPLIC TOPICAL ×2 (05:24→21:13)
--- NOTE | 2019-08-11 08:54 | NURSING ---
spoke with reva, appointment clerk regarding pt getting upset that meal trays are coming with ensure pudding and magic cup, she refusing both. Pt is ok with regular pudding. reva to change order.
[2019-08-11] MEDS: Lidocaine 5% Patch 1 PATCH TOPICAL (09:03)
[2019-08-11 09:10] VITALS: PULSE 71; RESP 18; O2SAT 99
[2019-08-11 16:00] VITALS: BP 116/37; PULSE 72; RESP 16; TEMP 36.5; O2SAT 96
[2019-08-11] MEDS: Atorvastatin Calcium 80 MG Tablet PO (21:04)
[2019-08-11] MEDS: Gabapentin 600 MG Tablet 1200 MG PO (21:05)
[2019-08-11] MEDS: MELATONIN 10 MG TABLET PO (21:07)
[2019-08-12] MEDS: Acetaminophen 500 MG Tablet 1000 MG PO ×3 (06:19→21:34)
[2019-08-12] MEDS: Senna/Docusate Sodium 1 Tablet 2 TABLET PO ×2 (06:19→18:44)
[2019-08-12] MEDS: Enoxaparin 60 MG/0.6 ML Syringe SC ×2 (06:19→18:44)
[2019-08-12] MEDS: Acyclovir 200 MG Capsule 400 MG PO ×2 (06:19→18:44)
[2019-08-12] MEDS: Polyethylene Glycol 3350 17 GM PACKET PO (06:20)
[2019-08-12] MEDS: Atenolol 25 MG Tablet PO (06:20)
[2019-08-12] MEDS: buPROPion (SR) 150 MG Tablet.SA PO ×2 (06:20→18:45)
[2019-08-12] MEDS: Escitalopram Oxalate 20 MG Tablet PO (06:20)
[2019-08-12] MEDS: Pantoprazole Sodium 40 MG Tablet PO (06:21)
[2019-08-12] MEDS: Nystatin Powder 15gm Bottle 1 APPLIC TOPICAL ×2 (06:31→21:38)
[2019-08-12] MEDS: Menthol/Lanolin/Calamine/Znox 113 GM Tube 1 APPLIC TOPICAL ×2 (06:31→21:32)
[2019-08-12] MEDS: Lidocaine 5% Patch 1 PATCH TOPICAL (11:34)
[2019-08-12 16:00] VITALS: BP 125/53; PULSE 78; RESP 18; TEMP 36.6; O2SAT 100
[2019-08-12] MEDS: MELATONIN 10 MG TABLET PO (21:34)
[2019-08-12] MEDS: Gabapentin 600 MG Tablet 1200 MG PO (21:34)
[2019-08-12] MEDS: Atorvastatin Calcium 80 MG Tablet PO (21:34)
[2019-08-12 21:45] VITALS: RESP 16
[2019-08-13] MEDS: Enoxaparin 60 MG/0.6 ML Syringe SC ×2 (05:43→18:22)
[2019-08-13] MEDS: Atenolol 25 MG Tablet PO (05:44)
[2019-08-13] MEDS: Acyclovir 200 MG Capsule 400 MG PO ×2 (05:44→18:23)
[2019-08-13] MEDS: buPROPion (SR) 150 MG Tablet.SA PO ×2 (05:44→18:22)
[2019-08-13] MEDS: Acetaminophen 500 MG Tablet 1000 MG PO ×3 (05:44→22:08)
[2019-08-13] MEDS: Pantoprazole Sodium 40 MG Tablet PO (05:45)
[2019-08-13] MEDS: Escitalopram Oxalate 20 MG Tablet PO (05:45)
[2019-08-13] MEDS: Menthol/Lanolin/Calamine/Znox 113 GM Tube 1 APPLIC TOPICAL ×2 (05:45→22:06)
[2019-08-13] MEDS: Nystatin Powder 15gm Bottle 1 APPLIC TOPICAL ×2 (05:46→22:07)
[2019-08-13] MEDS: Lidocaine 5% Patch 1 PATCH TOPICAL (11:18)
--- NOTE | 2019-08-13 13:22 | RAD_ITS ---
STUDY: X-RAY - ABDOMEN/PELVIS REASON FOR EXAM: Female, 74 years old. Diarrhea. TECHNIQUE: Single AP view of the abdomen / pelvis. COMPARISON: July 17, 2019 FINDINGS: Normal visualized lung bases. There is an unremarkable bowel gas pattern air seen to the rectosigmoid. There is no demonstrated free abdominal air. The visualized liver, spleen and kidneys are grossly normal in size and morphology. Normal soft tissue structures. Extensive laminectomy from L1 to S1 with no change. RAD/Abdomen Single View IMPRESSION: No acute abnormality of the abdomen or pelvis. Electronically Signed: Ihsan Mendosa MD at 14:19 EST , Service support ,
[2019-08-13 14:51] VITALS: PULSE 70; RESP 16; O2SAT 98
[2019-08-13 15:59] VITALS: BP 147/64; PULSE 76; RESP 18; TEMP 36.6; O2SAT 97
[2019-08-13] MEDS: Gabapentin 600 MG Tablet 1200 MG PO (22:08)
[2019-08-13] MEDS: Atorvastatin Calcium 80 MG Tablet PO (22:08)
[2019-08-13] MEDS: MELATONIN 10 MG TABLET PO (22:09)
[2019-08-14] MEDS: Nystatin Powder 15gm Bottle 1 APPLIC TOPICAL ×2 (05:37→20:53)
[2019-08-14] MEDS: Menthol/Lanolin/Calamine/Znox 113 GM Tube 1 APPLIC TOPICAL (05:37)
[2019-08-14] MEDS: Acetaminophen 500 MG Tablet 1000 MG PO ×3 (05:39→20:52)
[2019-08-14] MEDS: Acyclovir 200 MG Capsule 400 MG PO ×2 (05:39→16:46)
[2019-08-14] MEDS: Atenolol 25 MG Tablet PO (05:40)
[2019-08-14] MEDS: Enoxaparin 60 MG/0.6 ML Syringe SC ×2 (05:40→16:46)
[2019-08-14] MEDS: buPROPion (SR) 150 MG Tablet.SA PO ×2 (05:40→16:46)
[2019-08-14] MEDS: Escitalopram Oxalate 20 MG Tablet PO (05:40)
[2019-08-14] MEDS: Pantoprazole Sodium 40 MG Tablet PO (05:40)
[2019-08-14 10:00] VITALS: PULSE 68; RESP 16; O2SAT 97
[2019-08-14] MEDS: Lidocaine 5% Patch 1 PATCH TOPICAL (11:09)
[2019-08-14 16:00] VITALS: BP 117/70; PULSE 85; RESP 16; TEMP 36.7; O2SAT 97
[2019-08-14] MEDS: Atorvastatin Calcium 80 MG Tablet PO (20:52)
[2019-08-14] MEDS: Gabapentin 600 MG Tablet 1200 MG PO (20:52)
[2019-08-14] MEDS: MELATONIN 10 MG TABLET PO (20:54)
[2019-08-15] MEDS: Acyclovir 200 MG Capsule 400 MG PO ×2 (06:10→17:13)
[2019-08-15] MEDS: Pantoprazole Sodium 40 MG Tablet PO (06:10)
[2019-08-15] MEDS: Acetaminophen 500 MG Tablet 1000 MG PO ×3 (06:10→20:35)
[2019-08-15] MEDS: Escitalopram Oxalate 20 MG Tablet PO (06:10)
[2019-08-15] MEDS: Atenolol 25 MG Tablet PO (06:10)
[2019-08-15] MEDS: buPROPion (SR) 150 MG Tablet.SA PO ×2 (06:10→17:13)
[2019-08-15] MEDS: Nystatin Powder 15gm Bottle 1 APPLIC TOPICAL ×2 (06:10→20:37)
[2019-08-15] MEDS: Enoxaparin 60 MG/0.6 ML Syringe SC ×2 (06:11→17:13)
[2019-08-15] MEDS: Lidocaine 5% Patch 1 PATCH TOPICAL (10:17)
[2019-08-15 16:00] VITALS: BP 115/61; PULSE 82; RESP 16; TEMP 36.7; O2SAT 97
[2019-08-15 20:30] VITALS: PULSE 80; RESP 16; O2SAT 97
[2019-08-15] MEDS: MELATONIN 10 MG TABLET PO (20:36)
[2019-08-15] MEDS: Gabapentin 600 MG Tablet 1200 MG PO (20:36)
[2019-08-15] MEDS: Atorvastatin Calcium 80 MG Tablet PO (20:36)
[2019-08-15] MEDS: Menthol/Lanolin/Calamine/Znox 113 GM Tube 1 APPLIC TOPICAL (20:38)
[2019-08-16] MEDS: Menthol/Lanolin/Calamine/Znox 113 GM Tube 1 APPLIC TOPICAL ×2 (05:46→20:22)
[2019-08-16] MEDS: Acyclovir 200 MG Capsule 400 MG PO ×2 (05:47→17:33)
[2019-08-16] MEDS: buPROPion (SR) 150 MG Tablet.SA PO ×2 (05:47→17:32)
[2019-08-16] MEDS: Pantoprazole Sodium 40 MG Tablet PO (05:47)
[2019-08-16] MEDS: Acetaminophen 500 MG Tablet 1000 MG PO ×3 (05:47→20:18)
[2019-08-16] MEDS: Escitalopram Oxalate 20 MG Tablet PO (05:48)
[2019-08-16] MEDS: Atenolol 25 MG Tablet PO (05:48)
[2019-08-16] MEDS: Enoxaparin 60 MG/0.6 ML Syringe SC ×2 (05:48→17:33)
[2019-08-16] MEDS: Nystatin Powder 15gm Bottle 1 APPLIC TOPICAL ×2 (05:50→20:23)
[2019-08-16] MEDS: dexAMETHasone 4 MG Tablet 40 MG PO (08:34)
[2019-08-16 10:00] VITALS: PULSE 78; RESP 16; O2SAT 98
[2019-08-16] MEDS: Lidocaine 5% Patch 1 PATCH TOPICAL (10:44)
[2019-08-16 16:00] VITALS: BP 113/50; PULSE 84; RESP 18; TEMP 36.3; O2SAT 97
[2019-08-16] MEDS: Atorvastatin Calcium 80 MG Tablet PO (20:16)
[2019-08-16] MEDS: MELATONIN 10 MG TABLET PO (20:16)
[2019-08-16] MEDS: Gabapentin 600 MG Tablet 1200 MG PO (20:18)
[2019-08-17] MEDS: Menthol/Lanolin/Calamine/Znox 113 GM Tube 1 APPLIC TOPICAL ×2 (05:57→22:27)
[2019-08-17] MEDS: Nystatin Powder 15gm Bottle 1 APPLIC TOPICAL ×2 (05:57→22:28)
[2019-08-17] MEDS: Enoxaparin 60 MG/0.6 ML Syringe SC ×2 (05:58→17:22)
[2019-08-17] MEDS: Atenolol 25 MG Tablet PO (05:59)
[2019-08-17] MEDS: Pantoprazole Sodium 40 MG Tablet PO (05:59)
[2019-08-17] MEDS: Acyclovir 200 MG Capsule 400 MG PO ×2 (05:59→17:19)
[2019-08-17] MEDS: buPROPion (SR) 150 MG Tablet.SA PO ×2 (05:59→17:19)
[2019-08-17] MEDS: Acetaminophen 500 MG Tablet 1000 MG PO ×3 (05:59→22:24)
[2019-08-17] MEDS: Escitalopram Oxalate 20 MG Tablet PO (05:59)
[2019-08-17 06:03] LABS: Absolute Lymphocyte Count 0.96 X10^3/uL (0.83-4.51); Absolute Neutrophil Count 13.7 X10^3/uL (2.0-7.7); Basophil# 0.02 X10^3/uL; Basophil% 0.1 % (0-1); Eosinophil# 0.01 X10^3/uL; Eosinophils% 0.1 % (0-5); Hematocrit 31.2 % (37-47); Hemoglobin 10.2 g/dL (12.0-15.0); Lymphocyte # 0.96 X10^3/ul (4.0); Lymphocyte % 5.2 % (19-41); Mean Corp Hgb Conc 32.7 g/dL (32-36); Mean Corpuscular Hgb 34.3 pg (27.0-32.0); Mean Corpuscular Volume 105.1 fL (81-99); Mean Platelet Vol. 12.1 fl (6.2-12.0); Monocyte# 3.47 X10^3/uL; Monocyte% 18.8 % (0-10); NRBC Flagged by Analyzer 0 % (0-5); Neutrophil # 13.74 X10^3/uL (2.7-7.7); Neutrophil % 74.5 % (47-70); POSITIVE DIFFERENTIAL YES; Platelet Count 176 K/mm3 (150-450); RBC Distribution Width CV 14.4 % (11.6-14.6); RBC Distribution Width SD 54.9 fl (35.1-43.9); Red Blood Count 2.97 M/mm3 (4.2-5.4); White Blood Count 18.4 K/mm3 (4.4-11.0)
[2019-08-17 06:04] LABS: Differential Indicated SCAN CRITERIA MET
[2019-08-17 06:28] LABS: Anion Gap 6 (5-15); BUN 17 mg/dL (7-18); BUN/Creat Ratio 25.3 RATIO (10-20); Calcium,Total 8.4 mg/dL (8.5-10.1); Chloride 112 mmol/L (98-107); Creatinine, Serum 0.67 mg/dL (0.55-1.02); EST Glomerular Filtration Rate 91 mL/min (>60); Est Glom Filt Rate - Afr Amer 110 mL/min (>60); Estimated Creatinine Clearance 41.97 ml/min; Glucose 109 mg/dL (74-106); Potassium 3.9 mmol/L (3.5-5.1); Sodium Level 142 mmol/L (136-145)
--- NOTE | 2019-08-17 07:14 | NURSING ---
Bentley cath d/c'd per doctor order. Withdrew 10 cc of water from balloon. Catheter removed without difficulty, catheter tip intact. Pt tolerated well call light within reach.
[2019-08-17] MEDS: Lidocaine 5% Patch 1 PATCH TOPICAL (10:31)
[2019-08-17 14:18] LABS: Pathologist Review Reviewed
[2019-08-17 16:00] VITALS: BP 110/52; PULSE 76; RESP 16; TEMP 36.4; O2SAT 98
[2019-08-17] MEDS: oxyCODONE 5 MG Tablet 10 MG PO (22:23)
[2019-08-17] MEDS: Atorvastatin Calcium 80 MG Tablet PO (22:25)
[2019-08-17] MEDS: Gabapentin 600 MG Tablet 1200 MG PO (22:25)
[2019-08-17] MEDS: MELATONIN 10 MG TABLET PO (22:25)
[2019-08-17 22:30] VITALS: PULSE 80; RESP 16; O2SAT 97
--- NOTE | 2019-08-18 02:54 | NURSING ---
Pt asked if was on a calicum pill I looked at her orders and there was no calicum on it. He stated, per her doctor she should be on a calicum pill if she's on a medication that weakens her bone. Rn made aware put on doctors list.
--- NOTE | 2019-08-18 04:12 | NURSING ---
DIE MOUNTER bladder scanned for 604 ml at 2:17 am. This nurse and the DIE MOUNTER got the pt up to the bedside commode to see if she could empty her bladder. I put on some water to see if that would help to empty bladder didn't help. I also tried putting warm towels in inner thigh this didn't help either. So this nurse straight cath pt per doctor order and got 500 ml out of bladder. Rescanned pt after straight cath for 0 ml. This is the second time pt has been cath. Rn made aware.
--- NOTE | 2019-08-18 06:45 | NURSING ---
Bladder scanned for 232 at this time will continue voiding trials
[2019-08-18] MEDS: Enoxaparin 60 MG/0.6 ML Syringe SC ×2 (06:49→22:18)
[2019-08-18] MEDS: Acyclovir 200 MG Capsule 400 MG PO ×2 (06:50→22:19)
[2019-08-18] MEDS: Acetaminophen 500 MG Tablet 1000 MG PO ×3 (06:50→22:23)
[2019-08-18] MEDS: Escitalopram Oxalate 20 MG Tablet PO (06:50)
[2019-08-18] MEDS: Pantoprazole Sodium 40 MG Tablet PO (06:50)
[2019-08-18] MEDS: Atenolol 25 MG Tablet PO (06:51)
[2019-08-18] MEDS: buPROPion (SR) 150 MG Tablet.SA PO ×2 (06:51→22:19)
[2019-08-18] MEDS: Menthol/Lanolin/Calamine/Znox 113 GM Tube 1 APPLIC TOPICAL ×2 (06:53→22:25)
[2019-08-18] MEDS: Nystatin Powder 15gm Bottle 1 APPLIC TOPICAL ×2 (06:53→22:24)
[2019-08-18] MEDS: Lidocaine 5% Patch 1 PATCH TOPICAL (11:13)
[2019-08-18] MEDS: Tamsulosin HCl 0.4 MG Capsule PO (14:48)
[2019-08-18 16:00] VITALS: BP 134/68; PULSE 75; RESP 16; TEMP 36.6; O2SAT 97
--- NOTE | 2019-08-18 18:48 | NURSING ---
Pt. on [facility] to dinner with for his birthday.
--- NOTE | 2019-08-18 21:45 | NURSING ---
Pt arrived back from [facility] at this time.
[2019-08-18 22:14] VITALS: BP 117/55; PULSE 86; RESP 16; TEMP 36.2; O2SAT 96
[2019-08-18] MEDS: Calcium Carbonate 500 MG Tablet PO (22:18)
[2019-08-18] MEDS: MELATONIN 10 MG TABLET PO (22:24)
[2019-08-18] MEDS: Atorvastatin Calcium 80 MG Tablet PO (22:24)
[2019-08-18] MEDS: Gabapentin 600 MG Tablet 1200 MG PO (22:24)
[2019-08-19] MEDS: Pantoprazole Sodium 40 MG Tablet PO (06:02)
[2019-08-19] MEDS: Enoxaparin 60 MG/0.6 ML Syringe SC ×2 (06:02→17:50)
[2019-08-19] MEDS: Escitalopram Oxalate 20 MG Tablet PO (06:02)
[2019-08-19] MEDS: Atenolol 25 MG Tablet PO (06:02)
[2019-08-19] MEDS: Acyclovir 200 MG Capsule 400 MG PO ×2 (06:02→17:50)
[2019-08-19] MEDS: buPROPion (SR) 150 MG Tablet.SA PO ×2 (06:02→17:50)
[2019-08-19] MEDS: Nystatin Powder 15gm Bottle 1 APPLIC TOPICAL ×2 (06:03→21:05)
[2019-08-19] MEDS: Acetaminophen 500 MG Tablet 1000 MG PO ×3 (06:03→21:03)
[2019-08-19] MEDS: Menthol/Lanolin/Calamine/Znox 113 GM Tube 1 APPLIC TOPICAL ×2 (06:03→21:05)
[2019-08-19] MEDS: Calcium Carbonate 500 MG Tablet PO ×2 (08:04→17:50)
[2019-08-19] MEDS: Lidocaine 5% Patch 1 PATCH TOPICAL (08:59)
--- NOTE | 2019-08-19 13:31 | NURSING ---
12 noon,bladder scanned for 395. continue voiding trials. will continue to monitor.
[2019-08-19 16:00] VITALS: BP 153/60; PULSE 78; RESP 16; TEMP 36.6; O2SAT 96
--- NOTE | 2019-08-19 17:20 | NURSING ---
PT COMPLAINED OF FEELING PRESSURE IN LOWER ABDOMINAL. BLADDER SCANNED FOR 454,STRAIGHT CATHED FOR 400. MEPILEX REPLACED DUE TO OLD FELL OFF. REPORTED TO NAYAN FRANCO
[2019-08-19] MEDS: Tamsulosin HCl 0.4 MG Capsule PO (17:50)
[2019-08-19] MEDS: Gabapentin 600 MG Tablet 1200 MG PO (21:03)
[2019-08-19] MEDS: Atorvastatin Calcium 80 MG Tablet PO (21:03)
[2019-08-19] MEDS: MELATONIN 10 MG TABLET PO (21:04)
[2019-08-20] MEDS: Acetaminophen 500 MG Tablet 1000 MG PO ×3 (04:17→20:42)
[2019-08-20] MEDS: Pantoprazole Sodium 40 MG Tablet PO (04:17)
[2019-08-20] MEDS: Acyclovir 200 MG Capsule 400 MG PO ×2 (04:18→17:08)
[2019-08-20] MEDS: Atenolol 25 MG Tablet PO (04:18)
[2019-08-20] MEDS: buPROPion (SR) 150 MG Tablet.SA PO ×2 (04:18→17:08)
[2019-08-20] MEDS: Escitalopram Oxalate 20 MG Tablet PO (04:18)
[2019-08-20] MEDS: Enoxaparin 60 MG/0.6 ML Syringe SC ×2 (04:18→17:08)
[2019-08-20] MEDS: Menthol/Lanolin/Calamine/Znox 113 GM Tube 1 APPLIC TOPICAL ×2 (04:19→20:45)
[2019-08-20] MEDS: Nystatin Powder 15gm Bottle 1 APPLIC TOPICAL ×2 (04:19→20:45)
[2019-08-20] MEDS: Calcium Carbonate 500 MG Tablet PO ×2 (07:47→17:06)
[2019-08-20 08:15] VITALS: PULSE 80; RESP 18; O2SAT 98
[2019-08-20] MEDS: Lidocaine 5% Patch 1 PATCH TOPICAL (09:11)
[2019-08-20 16:00] VITALS: BP 110/70; PULSE 82; RESP 17; TEMP 36.8; O2SAT 99
[2019-08-20] MEDS: Tamsulosin HCl 0.4 MG Capsule PO (17:08)
[2019-08-20] MEDS: Gabapentin 600 MG Tablet 1200 MG PO (20:40)
[2019-08-20] MEDS: Atorvastatin Calcium 80 MG Tablet PO (20:40)
[2019-08-20] MEDS: MELATONIN 10 MG TABLET PO (20:41)
[2019-08-21] MEDS: Nystatin Powder 15gm Bottle 1 APPLIC TOPICAL ×2 (05:52→21:55)
[2019-08-21] MEDS: Menthol/Lanolin/Calamine/Znox 113 GM Tube 1 APPLIC TOPICAL ×2 (05:52→21:55)
[2019-08-21] MEDS: Pantoprazole Sodium 40 MG Tablet PO (05:53)
[2019-08-21] MEDS: Atenolol 25 MG Tablet PO (05:53)
[2019-08-21] MEDS: Acyclovir 200 MG Capsule 400 MG PO ×2 (05:53→17:41)
[2019-08-21] MEDS: Escitalopram Oxalate 20 MG Tablet PO (05:53)
[2019-08-21] MEDS: Acetaminophen 500 MG Tablet 1000 MG PO ×3 (05:53→21:58)
[2019-08-21] MEDS: buPROPion (SR) 150 MG Tablet.SA PO ×2 (05:53→17:41)
[2019-08-21] MEDS: Enoxaparin 60 MG/0.6 ML Syringe SC ×2 (05:53→17:42)
[2019-08-21] MEDS: Lidocaine 5% Patch 1 PATCH TOPICAL (09:05)
[2019-08-21] MEDS: Calcium Carbonate 500 MG Tablet PO ×2 (09:05→17:40)
[2019-08-21 16:00] VITALS: BP 134/77; PULSE 85; RESP 16; TEMP 36.6; O2SAT 95
[2019-08-21] MEDS: Tamsulosin HCl 0.4 MG Capsule PO (17:42)
[2019-08-21] MEDS: Atorvastatin Calcium 80 MG Tablet PO (21:56)
[2019-08-21] MEDS: Gabapentin 600 MG Tablet 1200 MG PO (21:57)
[2019-08-21] MEDS: MELATONIN 10 MG TABLET PO (21:58)
[2019-08-22] MEDS: Menthol/Lanolin/Calamine/Znox 113 GM Tube 1 APPLIC TOPICAL ×2 (06:25→21:14)
[2019-08-22] MEDS: Nystatin Powder 15gm Bottle 1 APPLIC TOPICAL ×2 (06:25→21:14)
[2019-08-22] MEDS: Atenolol 25 MG Tablet PO (06:26)
[2019-08-22] MEDS: Pantoprazole Sodium 40 MG Tablet PO (06:26)
[2019-08-22] MEDS: Acyclovir 200 MG Capsule 400 MG PO ×2 (06:26→17:39)
[2019-08-22] MEDS: Escitalopram Oxalate 20 MG Tablet PO (06:26)
[2019-08-22] MEDS: Acetaminophen 500 MG Tablet 1000 MG PO ×3 (06:26→21:11)
[2019-08-22] MEDS: buPROPion (SR) 150 MG Tablet.SA PO ×2 (06:26→17:38)
[2019-08-22] MEDS: Enoxaparin 60 MG/0.6 ML Syringe SC ×2 (06:27→17:38)
[2019-08-22] MEDS: Calcium Carbonate 500 MG Tablet PO ×2 (09:27→17:39)
[2019-08-22] MEDS: Lidocaine 5% Patch 1 PATCH TOPICAL (09:27)
--- NOTE | 2019-08-22 10:00 | NURSING ---
Addendum entered by Melita Garcia 08/22/19 12:24: pt back in room Original Note: pt off floor for treatment
[2019-08-22 15:52] VITALS: PULSE 84; RESP 16; O2SAT 95
[2019-08-22 15:54] VITALS: BP 116/41; PULSE 82; RESP 16; TEMP 37; O2SAT 94
[2019-08-22] MEDS: Tamsulosin HCl 0.4 MG Capsule PO (17:38)
[2019-08-22] MEDS: MELATONIN 10 MG TABLET PO (21:12)
[2019-08-22] MEDS: Atorvastatin Calcium 80 MG Tablet PO (21:12)
[2019-08-22] MEDS: Gabapentin 600 MG Tablet 1200 MG PO (21:12)
[2019-08-23] MEDS: Nystatin Powder 15gm Bottle 1 APPLIC TOPICAL ×2 (06:06→21:23)
[2019-08-23] MEDS: Menthol/Lanolin/Calamine/Znox 113 GM Tube 1 APPLIC TOPICAL ×2 (06:06→21:25)
[2019-08-23] MEDS: Atenolol 25 MG Tablet PO (06:07)
[2019-08-23] MEDS: Acyclovir 200 MG Capsule 400 MG PO ×2 (06:07→18:28)
[2019-08-23] MEDS: buPROPion (SR) 150 MG Tablet.SA PO ×2 (06:07→18:28)
[2019-08-23] MEDS: Enoxaparin 60 MG/0.6 ML Syringe SC ×2 (06:07→18:28)
[2019-08-23] MEDS: Acetaminophen 500 MG Tablet 1000 MG PO ×3 (06:07→21:11)
[2019-08-23] MEDS: Escitalopram Oxalate 20 MG Tablet PO (06:07)
[2019-08-23] MEDS: Pantoprazole Sodium 40 MG Tablet PO (06:07)
[2019-08-23] MEDS: dexAMETHasone 4 MG Tablet 40 MG PO (08:05)
[2019-08-23] MEDS: Lidocaine 5% Patch 1 PATCH TOPICAL (08:06)
[2019-08-23] MEDS: Calcium Carbonate 500 MG Tablet PO ×2 (08:06→18:27)
--- NOTE | 2019-08-23 11:45 | NURSING ---
pt off unit via WC with for [facility]GIO today. Sent tylenol for 2pm scheduled dose with & pt at this time. verbalized understanding of administering at 2p.
[2019-08-23 16:00] VITALS: BP 122/47; PULSE 86; RESP 16; TEMP 36.8; O2SAT 96
[2019-08-23] MEDS: Tamsulosin HCl 0.4 MG Capsule PO (18:28)
--- NOTE | 2019-08-23 18:29 | NURSING ---
PT RETURNED FROM [facility] WITH . LANGUAGE TEACHER CATCHING UP MEDICATIONS.
[2019-08-23] MEDS: Gabapentin 600 MG Tablet 1200 MG PO (21:11)
[2019-08-23] MEDS: MELATONIN 10 MG TABLET PO (21:11)
[2019-08-23] MEDS: Atorvastatin Calcium 80 MG Tablet PO (21:12)
[2019-08-23 23:00] VITALS: PULSE 82; RESP 18; O2SAT 95
[2019-08-24 05:43] LABS: Absolute Lymphocyte Count 0.96 X10^3/uL (0.83-4.51); Absolute Neutrophil Count 11.9 X10^3/uL (2.0-7.7); Basophil# 0.01 X10^3/uL; Basophil% 0.1 % (0-1); Hematocrit 30.2 % (37-47); Hemoglobin 9.7 g/dL (12.0-15.0); Lymphocyte # 0.96 X10^3/ul (4.0); Lymphocyte % 6.1 % (19-41); Mean Corp Hgb Conc 32.1 g/dL (32-36); Mean Corpuscular Hgb 33.9 pg (27.0-32.0); Mean Corpuscular Volume 105.6 fL (81-99); Mean Platelet Vol. 11.9 fl (6.2-12.0); Monocyte# 2.68 X10^3/uL; NRBC Flagged by Analyzer 0 % (0-5); Neutrophil % 75.5 % (47-70); POSITIVE DIFFERENTIAL YES; Platelet Count 151 K/mm3 (150-450); RBC Distribution Width CV 14.2 % (11.6-14.6); Red Blood Count 2.86 M/mm3 (4.2-5.4); White Blood Count 15.8 K/mm3 (4.4-11.0)
[2019-08-24 05:48] LABS: Differential Indicated SCAN CRITERIA MET
[2019-08-24 06:04] LABS: Anion Gap 5 (5-15); BUN 23 mg/dL (7-18); BUN/Creat Ratio 37.8 RATIO (10-20); Calcium,Total 8.2 mg/dL (8.5-10.1); Chloride 109 mmol/L (98-107); Creatinine, Serum 0.61 mg/dL (0.55-1.02); EST Glomerular Filtration Rate 102 mL/min (>60); Est Glom Filt Rate - Afr Amer 123 mL/min (>60); Estimated Creatinine Clearance 41.97 ml/min; Glucose 106 mg/dL (74-106); Potassium 3.7 mmol/L (3.5-5.1); Sodium Level 141 mmol/L (136-145)
[2019-08-24 06:31] LABS: Differential Comment SCANNED; Macrocytosis 2+
[2019-08-24] MEDS: Acetaminophen 500 MG Tablet 1000 MG PO ×3 (06:50→21:11)
[2019-08-24] MEDS: Escitalopram Oxalate 20 MG Tablet PO (06:50)
[2019-08-24] MEDS: Atenolol 25 MG Tablet PO (06:50)
[2019-08-24] MEDS: Enoxaparin 60 MG/0.6 ML Syringe SC ×2 (06:50→17:03)
[2019-08-24] MEDS: Pantoprazole Sodium 40 MG Tablet PO (06:51)
[2019-08-24] MEDS: buPROPion (SR) 150 MG Tablet.SA PO ×2 (06:51→17:03)
[2019-08-24] MEDS: Acyclovir 200 MG Capsule 400 MG PO ×2 (06:51→17:03)
[2019-08-24] MEDS: Nystatin Powder 15gm Bottle 1 APPLIC TOPICAL ×2 (06:52→21:10)
[2019-08-24] MEDS: Menthol/Lanolin/Calamine/Znox 113 GM Tube 1 APPLIC TOPICAL ×2 (06:54→21:03)
[2019-08-24] MEDS: Calcium Carbonate 500 MG Tablet PO ×2 (08:09→17:03)
[2019-08-24] MEDS: Lidocaine 5% Patch 1 PATCH TOPICAL (09:54)
[2019-08-24 11:00] VITALS: PULSE 70; RESP 18; O2SAT 96
[2019-08-24 16:59] VITALS: BP 103/46; PULSE 71
[2019-08-24] MEDS: Tamsulosin HCl 0.4 MG Capsule PO (17:03)
[2019-08-24] MEDS: Atorvastatin Calcium 80 MG Tablet PO (21:10)
[2019-08-24] MEDS: MELATONIN 10 MG TABLET PO (21:10)
[2019-08-24] MEDS: Gabapentin 600 MG Tablet 1200 MG PO (21:10)
[2019-08-25] MEDS: oxyCODONE 5 MG Tablet 10 MG PO (00:22)
[2019-08-25] MEDS: Acyclovir 200 MG Capsule 400 MG PO ×2 (05:23→17:51)
[2019-08-25] MEDS: Acetaminophen 500 MG Tablet 1000 MG PO ×3 (05:23→22:13)
[2019-08-25] MEDS: buPROPion (SR) 150 MG Tablet.SA PO ×2 (05:23→17:51)
[2019-08-25] MEDS: Escitalopram Oxalate 20 MG Tablet PO (05:23)
[2019-08-25] MEDS: Menthol/Lanolin/Calamine/Znox 113 GM Tube 1 APPLIC TOPICAL ×2 (05:24→22:11)
[2019-08-25] MEDS: Pantoprazole Sodium 40 MG Tablet PO (05:24)
[2019-08-25] MEDS: Atenolol 25 MG Tablet PO (05:24)
[2019-08-25] MEDS: Enoxaparin 60 MG/0.6 ML Syringe SC ×2 (05:24→17:48)
[2019-08-25] MEDS: Nystatin Powder 15gm Bottle 1 APPLIC TOPICAL ×2 (05:25→22:14)
[2019-08-25] MEDS: Calcium Carbonate 500 MG Tablet PO ×2 (08:19→17:48)
[2019-08-25] MEDS: Senna/Docusate Sodium 1 Tablet 2 TABLET PO (08:19)
--- NOTE | 2019-08-25 09:38 | PHA.CONS_ITS ---
Progress Note - Pharmacy Subjective: [] Objective: Allergies morphine Adverse Reaction (Severe, Verified 08/22/19 10:25) Nausea Current Medications Generic Name Dose Route Start Last Admin Trade Name Freq PRN Reason Stop Dose Admin Acetaminophen 1,000 mg 07/12/19 22:00 08/25/19 05:23 Tylenol PO 1,000 mg TID [facility] Administration Acyclovir 400 mg 07/12/19 22:30 08/25/19 05:23 Zovirax PO 400 mg BID [facility] Administration Albuterol Sulfate 2 puff 07/12/19 19:42 Ventolin Hfa (Sp) INHALATION Q4H PRN PRN WHEEZING Albuterol/Ipratropium 3 ml 07/12/19 19:42 Duoneb INHALATION Q4H.RT PRN SHORTNESS OF BREATH Atenolol 25 mg 07/13/19 06:00 08/25/19 05:24 Tenormin (Beta Joann) PO 25 mg DAILY [facility] Administration Atorvastatin Calcium 80 mg 07/12/19 22:00 08/24/19 21:10 Lipitor PO 80 mg QHS [facility] Administration Bisacodyl 10 mg 07/12/19 20:51 08/08/19 17:21 Dulcolax PO 10 mg DAILY PRN Administration Constipation Bisacodyl 10 mg 07/29/19 13:51 Dulcolax RECTAL X1 PRN Constipation Bupropion HCl 150 mg 07/18/19 18:00 08/25/19 05:23 Wellbutrin Sr (150mg Tablets) PO 150 mg BID [facility] Administration Calamine/Phenol 1 applic 07/23/19 22:00 08/25/19 05:24 Calmoseptine Ointment TOPICAL 1 applicatio 0600,2200 [facility] Administration Protocol Calcium Carbonate 500 mg 08/18/19 17:00 08/25/19 08:19 Tums PO 500 mg BIDCM [facility] Administration Dexamethasone 40 mg 07/19/19 08:00 08/23/19 08:05 Decadron PO 40 mg We@0800 [facility] Administration Enoxaparin Sodium 60 mg 07/12/19 22:15 08/25/19 05:24 Lovenox SC 60 mg Q12@0600,1800 [facility] Administration Escitalopram Oxalate 20 mg 07/15/19 06:00 08/25/19 05:23 Lexapro PO 20 mg DAILY [facility] Administration Gabapentin 1,200 mg 08/08/19 22:00 08/24/19 21:10 Neurontin PO 1,200 mg QHS [facility] Administration Gabapentin 600 mg 08/08/19 09:58 Neurontin PO BIDCM PRN nerve pain Lidocaine 1 patch 07/13/19 10:00 08/24/19 09:54 Lidoderm Patch TOPICAL 1 patch DAILY@1000 [facility] Administration Melatonin 10 mg 07/16/19 22:00 08/24/19 21:10 Melatonin PO 10 mg QHS [facility] Administration Multi-Ingredient Cream 1 applic 07/13/19 22:00 08/24/19 21:04 Eucerin TOPICAL 1 applicatio QHS [facility] Administration Protocol Nystatin 1 applic 07/13/19 06:00 08/25/19 05:25 Mycostatin Powder TOPICAL 1 applicatio 0600,2200 [facility] Administration Protocol Oxycodone HCl 10 mg 07/14/19 04:09 08/25/19 00:22 Oxyir PO 10 mg Q4H PRN PRN Administration Pain Score 6-10/10 Pantoprazole Sodium 40 mg 07/13/19 06:00 08/25/19 05:24 Protonix PO 40 mg DAILY [facility] Administration Polyethylene Glycol 17 gm 08/13/19 19:26 Miralax PO DAILY PRN Constipation Promethazine HCl 25 mg 07/26/19 16:07 Phenergan Tablet PO Q4H PRN PRN NAUSEA/VOMITING Senna/Docusate Sodium 2 tablet 08/13/19 19:26 08/25/19 08:19 Senokot-S, Kassy-Colace PO 2 tablet BID PRN PRN Administration Constipation Tamsulosin HCl 0.4 mg 08/18/19 17:30 08/24/19 17:03 Flomax PO 0.4 mg DAILY@1730 [facility] Administration Tramadol HCl 50 mg 07/12/19 20:51 08/06/19 06:29 Ultram PO 50 mg Q6H PRN PRN Administration Pain Score 1-5/10 Problem List (Last Reviewed 08/22/19 @ 10:24 by Anika Choudhary) Debility (Acute) Epidural hematoma (Acute) Cauda equina syndrome (Acute) Hypotension (Acute) Hypophosphatemia (Acute) Essential tremor (Chronic) Myelodysplasia (myelodysplastic syndrome) (Chronic) Low back pain (Chronic) Vascular dementia (Chronic) Hypertension (Chronic) Neuropathic pain (Chronic) Left hemiparesis (Chronic) Depression (Chronic) Anxiety (Chronic) Vital Signs Temp Pulse Resp BP Pulse Ox 98.3 F 71 18 103/46 L 96 08/23/19 16:00 08/24/19 16:59 08/24/19 11:00 08/24/19 16:59 08/24/19 11:00 Oxygen Delivery Method Room Air Weight: 61.462 kg Body Mass Index (BMI) 25.0 Finger Stick Blood Glucose 101 Sodium 141 mmol/L (136-145) 08/24/19 05:15 Potassium 3.7 mmol/L (3.5-5.1) 08/24/19 05:15 Chloride 109 mmol/L (98-107) H 08/24/19 05:15 Carbon Dioxide 27.0 mmol/L (21.0-32.0) 08/24/19 05:15 Anion Gap 5 (5-15) 08/24/19 05:15 BUN 23 mg/dL (7-18) H 08/24/19 05:15 Creatinine 0.61 mg/dL (0.55-1.02) 08/24/19 05:15 Est GFR (MDRD) Af Amer 123 mL/min (>60) 08/24/19 05:15 Est GFR (MDRD) Non-Af 102 mL/min (>60) 08/24/19 05:15 BUN/Creatinine Ratio 37.8 RATIO (10-20) H 08/24/19 05:15 Glucose 106 mg/dL (74-106) 08/24/19 05:15 Assessment/Plan: Psychotropic Medications: Unnecessary Medications: Bowel Regimen: Date of Note:: 08/25/19 - Provider Comments Provider responsibility: Provider responsible to enter orders to implement recommendations
[2019-08-25] MEDS: Lidocaine 5% Patch 1 PATCH TOPICAL (10:13)
[2019-08-25 12:21] LABS: Pathologist Review Reviewed
[2019-08-25 16:00] VITALS: BP 102/51; PULSE 75; RESP 18; TEMP 36.4; O2SAT 96
[2019-08-25] MEDS: Tamsulosin HCl 0.4 MG Capsule PO (17:51)
[2019-08-25] MEDS: Atorvastatin Calcium 80 MG Tablet PO (22:12)
[2019-08-25] MEDS: MELATONIN 10 MG TABLET PO (22:12)
[2019-08-25] MEDS: Gabapentin 600 MG Tablet 1200 MG PO (22:13)
[2019-08-26] MEDS: Enoxaparin 60 MG/0.6 ML Syringe SC ×2 (05:45→17:17)
[2019-08-26] MEDS: Menthol/Lanolin/Calamine/Znox 113 GM Tube 1 APPLIC TOPICAL ×2 (05:45→20:08)
[2019-08-26] MEDS: Pantoprazole Sodium 40 MG Tablet PO (05:45)
[2019-08-26] MEDS: Acetaminophen 500 MG Tablet 1000 MG PO ×3 (05:45→20:09)
[2019-08-26] MEDS: buPROPion (SR) 150 MG Tablet.SA PO ×2 (05:45→17:16)
[2019-08-26] MEDS: Escitalopram Oxalate 20 MG Tablet PO (05:45)
[2019-08-26] MEDS: Acyclovir 200 MG Capsule 400 MG PO ×2 (05:45→17:15)
[2019-08-26] MEDS: Atenolol 25 MG Tablet PO (05:45)
[2019-08-26] MEDS: Nystatin Powder 15gm Bottle 1 APPLIC TOPICAL ×2 (05:46→20:08)
[2019-08-26] MEDS: Calcium Carbonate 500 MG Tablet PO ×2 (09:16→17:15)
[2019-08-26] MEDS: Lidocaine 5% Patch 1 PATCH TOPICAL (09:17)
[2019-08-26 16:00] VITALS: BP 124/53; PULSE 85; RESP 16; TEMP 36.6; O2SAT 97
[2019-08-26] MEDS: Tamsulosin HCl 0.4 MG Capsule PO (17:16)
[2019-08-26] MEDS: Atorvastatin Calcium 80 MG Tablet PO (20:08)
[2019-08-26] MEDS: MELATONIN 10 MG TABLET PO (20:08)
[2019-08-26] MEDS: Gabapentin 600 MG Tablet 1200 MG PO (20:09)
[2019-08-26] MEDS: oxyCODONE 5 MG Tablet 10 MG PO (20:16)
[2019-08-27] MEDS: Atenolol 25 MG Tablet PO (05:14)
[2019-08-27] MEDS: Acetaminophen 500 MG Tablet 1000 MG PO ×3 (05:14→20:19)
[2019-08-27] MEDS: Escitalopram Oxalate 20 MG Tablet PO (05:14)
[2019-08-27] MEDS: Acyclovir 200 MG Capsule 400 MG PO ×2 (05:14→17:42)
[2019-08-27] MEDS: Nystatin Powder 15gm Bottle 1 APPLIC TOPICAL ×2 (05:15→20:20)
[2019-08-27] MEDS: Enoxaparin 60 MG/0.6 ML Syringe SC ×2 (05:15→17:41)
[2019-08-27] MEDS: buPROPion (SR) 150 MG Tablet.SA PO ×2 (05:15→17:41)
[2019-08-27] MEDS: Pantoprazole Sodium 40 MG Tablet PO (05:15)
[2019-08-27] MEDS: Menthol/Lanolin/Calamine/Znox 113 GM Tube 1 APPLIC TOPICAL ×2 (05:16→20:20)
[2019-08-27] MEDS: Calcium Carbonate 500 MG Tablet PO ×2 (08:01→17:41)
[2019-08-27] MEDS: Lidocaine 5% Patch 1 PATCH TOPICAL (11:47)
[2019-08-27 15:52] VITALS: BP 127/67; PULSE 77; RESP 18; TEMP 35.8; O2SAT 95
[2019-08-27] MEDS: Tamsulosin HCl 0.4 MG Capsule PO (17:42)
[2019-08-27 20:00] VITALS: BP 129/56; PULSE 80; PULSE 94; RESP 18; TEMP 36.8; O2SAT 94
[2019-08-27] MEDS: Gabapentin 600 MG Tablet 1200 MG PO (20:19)
[2019-08-27] MEDS: MELATONIN 10 MG TABLET PO (20:19)
[2019-08-27] MEDS: Polyethylene Glycol 3350 17 GM PACKET PO (20:19)
[2019-08-27] MEDS: Atorvastatin Calcium 80 MG Tablet PO (20:20)
[2019-08-28] MEDS: Pantoprazole Sodium 40 MG Tablet PO (06:49)
[2019-08-28] MEDS: Acyclovir 200 MG Capsule 400 MG PO ×2 (06:49→17:51)
[2019-08-28] MEDS: Acetaminophen 500 MG Tablet 1000 MG PO ×3 (06:49→21:26)
[2019-08-28] MEDS: Escitalopram Oxalate 20 MG Tablet PO (06:49)
[2019-08-28] MEDS: Atenolol 25 MG Tablet PO (06:49)
[2019-08-28] MEDS: Nystatin Powder 15gm Bottle 1 APPLIC TOPICAL ×2 (06:50→21:25)
[2019-08-28] MEDS: Enoxaparin 60 MG/0.6 ML Syringe SC ×2 (06:50→17:51)
[2019-08-28] MEDS: Menthol/Lanolin/Calamine/Znox 113 GM Tube 1 APPLIC TOPICAL ×2 (06:50→21:25)
[2019-08-28] MEDS: buPROPion (SR) 150 MG Tablet.SA PO ×2 (08:28→17:51)
[2019-08-28] MEDS: Calcium Carbonate 500 MG Tablet PO ×2 (08:29→17:51)
[2019-08-28] MEDS: Lidocaine 5% Patch 1 PATCH TOPICAL (10:13)
[2019-08-28 15:52] VITALS: BP 97/40; PULSE 71; RESP 18; TEMP 36.8; O2SAT 98
[2019-08-28 16:19] VITALS: BP 104/41
[2019-08-28] MEDS: Tamsulosin HCl 0.4 MG Capsule PO (17:51)
[2019-08-28] MEDS: Gabapentin 600 MG Tablet 1200 MG PO (21:27)
[2019-08-28] MEDS: Atorvastatin Calcium 80 MG Tablet PO (21:27)
[2019-08-28] MEDS: MELATONIN 10 MG TABLET PO (21:27)
[2019-08-28] MEDS: Senna/Docusate Sodium 1 Tablet 2 TABLET PO (21:33)
[2019-08-28 21:40] VITALS: PULSE 75; RESP 16; O2SAT 95
[2019-08-29] MEDS: Enoxaparin 60 MG/0.6 ML Syringe SC ×2 (05:21→17:19)
[2019-08-29] MEDS: Acyclovir 200 MG Capsule 400 MG PO ×2 (05:22→17:18)
[2019-08-29] MEDS: Atenolol 25 MG Tablet PO (05:22)
[2019-08-29] MEDS: Escitalopram Oxalate 20 MG Tablet PO (05:22)
[2019-08-29] MEDS: Pantoprazole Sodium 40 MG Tablet PO (05:22)
[2019-08-29] MEDS: Acetaminophen 500 MG Tablet 1000 MG PO ×3 (05:22→21:24)
[2019-08-29] MEDS: buPROPion (SR) 150 MG Tablet.SA PO ×2 (05:22→17:18)
[2019-08-29] MEDS: Nystatin Powder 15gm Bottle 1 APPLIC TOPICAL ×2 (05:23→21:37)
[2019-08-29] MEDS: Menthol/Lanolin/Calamine/Znox 113 GM Tube 1 APPLIC TOPICAL ×2 (05:23→21:37)
[2019-08-29] MEDS: Bisacodyl 5 MG Tablet 10 MG PO (05:26)
[2019-08-29] MEDS: Calcium Carbonate 500 MG Tablet PO ×2 (08:01→17:18)
--- NOTE | 2019-08-29 08:06 | NURSING ---
new bag applied to botello d/t pt leaking, small hole noted.
[2019-08-29 08:07] VITALS: PULSE 80; RESP 18; O2SAT 94
[2019-08-29] MEDS: Lidocaine 5% Patch 1 PATCH TOPICAL (09:34)
[2019-08-29 16:00] VITALS: BP 106/55; PULSE 82; RESP 16; TEMP 36.4; O2SAT 95
[2019-08-29] MEDS: Tamsulosin HCl 0.4 MG Capsule PO (17:18)
[2019-08-29] MEDS: Gabapentin 600 MG Tablet 1200 MG PO (21:24)
[2019-08-29] MEDS: Atorvastatin Calcium 80 MG Tablet PO (21:24)
[2019-08-29] MEDS: MELATONIN 10 MG TABLET PO (21:27)
[2019-08-30] MEDS: Acyclovir 200 MG Capsule 400 MG PO ×2 (06:33→18:05)
[2019-08-30] MEDS: Atenolol 25 MG Tablet PO (06:33)
[2019-08-30] MEDS: Acetaminophen 500 MG Tablet 1000 MG PO ×3 (06:33→22:15)
[2019-08-30] MEDS: Escitalopram Oxalate 20 MG Tablet PO (06:33)
[2019-08-30] MEDS: Enoxaparin 60 MG/0.6 ML Syringe SC ×2 (06:33→18:05)
[2019-08-30] MEDS: Pantoprazole Sodium 40 MG Tablet PO (06:33)
[2019-08-30] MEDS: buPROPion (SR) 150 MG Tablet.SA PO ×2 (06:33→18:05)
[2019-08-30] MEDS: Nystatin Powder 15gm Bottle 1 APPLIC TOPICAL ×2 (06:35→22:16)
[2019-08-30] MEDS: Menthol/Lanolin/Calamine/Znox 113 GM Tube 1 APPLIC TOPICAL ×2 (06:35→22:14)
[2019-08-30] MEDS: Calcium Carbonate 500 MG Tablet PO ×2 (08:59→18:05)
[2019-08-30] MEDS: dexAMETHasone 4 MG Tablet 40 MG PO (08:59)
--- NOTE | 2019-08-30 11:15 | NURSING ---
Addendum entered by Annie Coleman 08/30/19 18:09: 1800 pt returned to floor. Original Note: Pt left floor via wheelchair with for [facility].
[2019-08-30] MEDS: Tamsulosin HCl 0.4 MG Capsule PO (18:05)
[2019-08-30 18:14] VITALS: BP 143/45; PULSE 95; RESP 20; TEMP 37.1; O2SAT 96
[2019-08-30] MEDS: Atorvastatin Calcium 80 MG Tablet PO (22:14)
[2019-08-30] MEDS: MELATONIN 10 MG TABLET PO (22:15)
[2019-08-30] MEDS: Gabapentin 600 MG Tablet 1200 MG PO (22:15)
--- NOTE | 2019-08-31 01:35 | NURSING ---
Pt came back from [facility] with family and CHEMICAL PRODUCTION MACHINE OPERATOR told me patient was in the room crying because her family was really hard on her about how she wasn't working hard enough to get better and get home. Emotional support provided.
[2019-08-31 05:56] LABS: Absolute Lymphocyte Count 0.99 X10^3/uL (0.83-4.51); Absolute Neutrophil Count 12.6 X10^3/uL (2.0-7.7); Basophil# 0.02 X10^3/uL; Basophil% 0.1 % (0-1); Eosinophil# 0.01 X10^3/uL; Eosinophils% 0.1 % (0-5); Hematocrit 30.6 % (37-47); Hemoglobin 9.9 g/dL (12.0-15.0); Lymphocyte # 0.99 X10^3/ul (4.0); Lymphocyte % 5.7 % (19-41); Mean Corp Hgb Conc 32.4 g/dL (32-36); Mean Corpuscular Hgb 33.9 pg (27.0-32.0); Mean Corpuscular Volume 104.8 fL (81-99); Monocyte# 3.62 X10^3/uL; Monocyte% 20.7 % (0-10); NRBC Flagged by Analyzer 0 % (0-5); Neutrophil # 12.63 X10^3/uL (2.7-7.7); Neutrophil % 72.1 % (47-70); POSITIVE DIFFERENTIAL YES; Platelet Count 171 K/mm3 (150-450); RBC Distribution Width CV 13.9 % (11.6-14.6); RBC Distribution Width SD 53.7 fl (35.1-43.9); Red Blood Count 2.92 M/mm3 (4.2-5.4); White Blood Count 17.5 K/mm3 (4.4-11.0)
[2019-08-31] MEDS: Acyclovir 200 MG Capsule 400 MG PO ×2 (05:59→17:08)
[2019-08-31] MEDS: Acetaminophen 500 MG Tablet 1000 MG PO ×3 (05:59→21:42)
[2019-08-31] MEDS: Escitalopram Oxalate 20 MG Tablet PO (05:59)
[2019-08-31] MEDS: buPROPion (SR) 150 MG Tablet.SA PO ×2 (05:59→17:07)
[2019-08-31] MEDS: Pantoprazole Sodium 40 MG Tablet PO (05:59)
[2019-08-31] MEDS: Enoxaparin 60 MG/0.6 ML Syringe SC ×2 (06:00→17:07)
[2019-08-31] MEDS: Menthol/Lanolin/Calamine/Znox 113 GM Tube 1 APPLIC TOPICAL ×2 (06:00→21:42)
[2019-08-31] MEDS: Atenolol 25 MG Tablet PO (06:00)
[2019-08-31] MEDS: Nystatin Powder 15gm Bottle 1 APPLIC TOPICAL ×2 (06:01→21:42)
[2019-08-31 06:13] LABS: Anion Gap 6 (5-15); BUN 23 mg/dL (7-18); BUN/Creat Ratio 25.1 RATIO (10-20); Calcium,Total 8.3 mg/dL (8.5-10.1); Chloride 111 mmol/L (98-107); Creatinine, Serum 0.92 mg/dL (0.55-1.02); EST Glomerular Filtration Rate 63 mL/min (>60); Est Glom Filt Rate - Afr Amer 77 mL/min (>60); Estimated Creatinine Clearance 45.62 ml/min; Glucose 102 mg/dL (74-106); Sodium Level 142 mmol/L (136-145)
[2019-08-31 06:21] LABS: Differential Indicated SCAN CRITERIA MET
[2019-08-31] MEDS: Calcium Carbonate 500 MG Tablet PO ×2 (08:17→17:07)
[2019-08-31 15:30] VITALS: BP 100/49; PULSE 75; RESP 16; TEMP 36.8; O2SAT 95
[2019-08-31 15:48] LABS: Pathologist Review Reviewed
--- NOTE | 2019-08-31 16:52 | CHAPLAIN ---
Type of Pastoral Visit ___ Initial Visit _x__ Follow-up Visit ___ On-call Visit ___ General Patient Visit ___ Spiritual Assessment ___ Family Conference ___ Bereavement ___ Rapid Response ___ Code Blue ___ Other (describe below) Pastoral Care Referral From _x__ Patient ___ Family ___ Nurse ___ Physician ___ Visual Effects Artist ___ Hat Liner ___ Other (describe below) Sacrament/Intervention _x__ Active listening ___ Anointing ___ Restoration ___ Bereavement ___ Communion ___ Orly exploration ___ _x__ Life review _x__ Prayer ___ Reconciliation ___ Sacrament of Sick _x__ Supportive presence ___ Wedding ___ Other (describe below) Pastoral Comments long visit as patient was very talkative today; pt gives much life review, expresses benito about progress and also discouragement about long road to recovery
[2019-08-31] MEDS: Tamsulosin HCl 0.4 MG Capsule PO (17:09)
[2019-08-31] MEDS: Gabapentin 600 MG Tablet 1200 MG PO (21:42)
[2019-08-31] MEDS: Atorvastatin Calcium 80 MG Tablet PO (21:42)
[2019-08-31] MEDS: MELATONIN 10 MG TABLET PO (21:42)
[2019-09-01 06:35] VITALS: BP 112/54; PULSE 81; RESP 18; TEMP 36.5; O2SAT 95
[2019-09-01] MEDS: Nystatin Powder 15gm Bottle 1 APPLIC TOPICAL ×2 (06:36→21:56)
[2019-09-01] MEDS: Menthol/Lanolin/Calamine/Znox 113 GM Tube 1 APPLIC TOPICAL ×2 (06:36→21:57)
[2019-09-01] MEDS: Escitalopram Oxalate 20 MG Tablet PO (06:37)
[2019-09-01] MEDS: Enoxaparin 60 MG/0.6 ML Syringe SC ×2 (06:37→17:51)
[2019-09-01] MEDS: Pantoprazole Sodium 40 MG Tablet PO (06:37)
[2019-09-01] MEDS: Acetaminophen 500 MG Tablet 1000 MG PO ×3 (06:38→21:54)
[2019-09-01] MEDS: buPROPion (SR) 150 MG Tablet.SA PO ×2 (06:38→17:50)
[2019-09-01] MEDS: Atenolol 25 MG Tablet PO (06:38)
[2019-09-01] MEDS: Acyclovir 200 MG Capsule 400 MG PO ×2 (06:38→17:51)
[2019-09-01] MEDS: Calcium Carbonate 500 MG Tablet PO ×2 (08:17→17:51)
[2019-09-01] MEDS: Lidocaine 5% Patch 1 PATCH TOPICAL (09:55)
[2019-09-01 15:46] VITALS: BP 111/60; PULSE 75; RESP 16; TEMP 36.6; O2SAT 96
[2019-09-01] MEDS: Tamsulosin HCl 0.4 MG Capsule PO (17:51)
--- NOTE | 2019-09-01 17:55 | NURSING ---
PT STATED TO THIS NURSE THAT SHE FELT A LUMP IN HER STOMACH. THIS NURSE FELT MUTABLE LUMPS. REPORTED TO NAYAN FRANCO
[2019-09-01] MEDS: MELATONIN 10 MG TABLET PO (21:54)
[2019-09-01] MEDS: Gabapentin 600 MG Tablet 1200 MG PO (21:55)
[2019-09-01] MEDS: Atorvastatin Calcium 80 MG Tablet PO (21:55)
[2019-09-02 05:48] VITALS: BP 112/40; PULSE 79; RESP 18; TEMP 36.6; O2SAT 94
[2019-09-02] MEDS: Acetaminophen 500 MG Tablet 1000 MG PO ×3 (05:52→20:54)
[2019-09-02] MEDS: Nystatin Powder 15gm Bottle 1 APPLIC TOPICAL ×2 (05:52→20:58)
[2019-09-02] MEDS: Enoxaparin 60 MG/0.6 ML Syringe SC ×2 (05:52→18:12)
[2019-09-02] MEDS: Menthol/Lanolin/Calamine/Znox 113 GM Tube 1 APPLIC TOPICAL ×2 (05:52→20:58)
[2019-09-02] MEDS: Acyclovir 200 MG Capsule 400 MG PO ×2 (05:53→18:12)
[2019-09-02] MEDS: Atenolol 25 MG Tablet PO (05:53)
[2019-09-02] MEDS: Pantoprazole Sodium 40 MG Tablet PO (05:53)
[2019-09-02] MEDS: Escitalopram Oxalate 20 MG Tablet PO (05:53)
[2019-09-02] MEDS: buPROPion (SR) 150 MG Tablet.SA PO ×2 (05:53→18:13)
[2019-09-02] MEDS: Calcium Carbonate 500 MG Tablet PO ×2 (09:34→18:12)
[2019-09-02 10:00] VITALS: PULSE 80; RESP 20
[2019-09-02] MEDS: Lidocaine 5% Patch 1 PATCH TOPICAL (11:02)
[2019-09-02 15:42] VITALS: BP 106/46; PULSE 81; RESP 16; TEMP 36.4; O2SAT 94
[2019-09-02] MEDS: Tamsulosin HCl 0.4 MG Capsule PO (18:12)
[2019-09-02] MEDS: Gabapentin 600 MG Tablet 1200 MG PO (20:55)
[2019-09-02] MEDS: MELATONIN 10 MG TABLET PO (20:56)
[2019-09-02] MEDS: Atorvastatin Calcium 80 MG Tablet PO (20:57)
[2019-09-03] MEDS: Menthol/Lanolin/Calamine/Znox 113 GM Tube 1 APPLIC TOPICAL ×2 (05:54→21:04)
[2019-09-03] MEDS: Nystatin Powder 15gm Bottle 1 APPLIC TOPICAL ×2 (05:55→21:04)
[2019-09-03] MEDS: Enoxaparin 60 MG/0.6 ML Syringe SC ×2 (05:56→17:39)
[2019-09-03] MEDS: Acetaminophen 500 MG Tablet 1000 MG PO ×3 (05:56→20:59)
[2019-09-03] MEDS: Pantoprazole Sodium 40 MG Tablet PO (05:56)
[2019-09-03] MEDS: Escitalopram Oxalate 20 MG Tablet PO (05:56)
[2019-09-03] MEDS: Acyclovir 200 MG Capsule 400 MG PO ×2 (05:56→17:38)
[2019-09-03] MEDS: buPROPion (SR) 150 MG Tablet.SA PO ×2 (05:56→17:38)
[2019-09-03] MEDS: Atenolol 25 MG Tablet PO (05:58)
[2019-09-03] MEDS: Calcium Carbonate 500 MG Tablet PO ×2 (08:11→17:38)
[2019-09-03] MEDS: Lidocaine 5% Patch 1 PATCH TOPICAL (09:52)
[2019-09-03 15:11] VITALS: BP 110/54; PULSE 74; RESP 16; TEMP 36.3; O2SAT 98
[2019-09-03] MEDS: Tamsulosin HCl 0.4 MG Capsule PO (17:38)
[2019-09-03 20:45] VITALS: PULSE 80; RESP 16; O2SAT 93
[2019-09-03] MEDS: Gabapentin 600 MG Tablet 1200 MG PO (20:58)
[2019-09-03] MEDS: Atorvastatin Calcium 80 MG Tablet PO (20:59)
[2019-09-03] MEDS: MELATONIN 10 MG TABLET PO (21:01)
[2019-09-04] MEDS: Atenolol 25 MG Tablet PO (06:10)
[2019-09-04] MEDS: buPROPion (SR) 150 MG Tablet.SA PO ×2 (06:10→17:30)
[2019-09-04] MEDS: Acetaminophen 500 MG Tablet 1000 MG PO ×3 (06:10→19:42)
[2019-09-04] MEDS: Enoxaparin 60 MG/0.6 ML Syringe SC ×2 (06:10→17:30)
[2019-09-04] MEDS: Pantoprazole Sodium 40 MG Tablet PO (06:10)
[2019-09-04] MEDS: Escitalopram Oxalate 20 MG Tablet PO (06:10)
[2019-09-04] MEDS: Acyclovir 200 MG Capsule 400 MG PO ×2 (06:10→17:30)
[2019-09-04] MEDS: Menthol/Lanolin/Calamine/Znox 113 GM Tube 1 APPLIC TOPICAL ×2 (06:13→19:51)
[2019-09-04] MEDS: Nystatin Powder 15gm Bottle 1 APPLIC TOPICAL ×2 (06:13→19:52)
[2019-09-04] MEDS: Calcium Carbonate 500 MG Tablet PO ×2 (08:09→17:30)
[2019-09-04] MEDS: Lidocaine 5% Patch 1 PATCH TOPICAL (09:42)
[2019-09-04 10:00] VITALS: PULSE 78; RESP 16; O2SAT 94
[2019-09-04 15:43] VITALS: BP 115/59; PULSE 73; RESP 16; TEMP 36.4; O2SAT 95
[2019-09-04] MEDS: Tamsulosin HCl 0.4 MG Capsule PO (17:30)
[2019-09-04] MEDS: Gabapentin 600 MG Tablet 1200 MG PO (19:41)
[2019-09-04] MEDS: MELATONIN 10 MG TABLET PO (19:42)
[2019-09-04] MEDS: Atorvastatin Calcium 80 MG Tablet PO (19:48)
--- NOTE | 2019-09-04 21:48 | PCA ---
HOME HEALTH OCCUPATIONAL THERAPIST went into patient room to get them up for dinner only to find them already in their wheelchair. Upon asking how they got up patient stated that they got up on their own. Tonia SPICER was notified.
[2019-09-05] MEDS: Enoxaparin 60 MG/0.6 ML Syringe SC ×2 (05:49→17:03)
[2019-09-05] MEDS: Acyclovir 200 MG Capsule 400 MG PO ×2 (05:54→17:03)
[2019-09-05] MEDS: Acetaminophen 500 MG Tablet 1000 MG PO ×3 (05:54→21:47)
[2019-09-05] MEDS: Pantoprazole Sodium 40 MG Tablet PO (05:55)
[2019-09-05] MEDS: Escitalopram Oxalate 20 MG Tablet PO (05:55)
[2019-09-05] MEDS: buPROPion (SR) 150 MG Tablet.SA PO ×2 (05:55→17:03)
[2019-09-05] MEDS: Atenolol 25 MG Tablet PO (05:55)
[2019-09-05] MEDS: Nystatin Powder 15gm Bottle 1 APPLIC TOPICAL ×2 (05:55→21:48)
[2019-09-05] MEDS: Menthol/Lanolin/Calamine/Znox 113 GM Tube 1 APPLIC TOPICAL ×2 (05:58→21:46)
[2019-09-05] MEDS: Calcium Carbonate 500 MG Tablet PO ×2 (07:24→17:03)
[2019-09-05] MEDS: Lidocaine 5% Patch 1 PATCH TOPICAL (09:44)
[2019-09-05 16:00] VITALS: BP 98/50; PULSE 78; RESP 18; TEMP 36.4; O2SAT 96
[2019-09-05] MEDS: Tamsulosin HCl 0.4 MG Capsule PO (17:03)
--- NOTE | 2019-09-05 19:26 | PN_ITS ---
Subjective: Resident seen in room, sitting in chair, finishing lunch. She has no complaints. She has been progressing with therapy, appetite good. She has been out of SERGIO, and did well. She feels stronger today compared to the day she was admitted. Vitals/I&O's: Vital Signs Temp Pulse Resp BP Pulse Ox 97.5 F L 78 18 98/50 L 96 09/05/19 16:00 09/05/19 16:00 09/05/19 16:00 09/05/19 16:00 09/05/19 16:00 Oxygen Delivery Method Room Air Weight: 60.951 kg Body Mass Index (BMI) 25.0 Finger Stick Blood Glucose 101 Intake and Output for Last 24 Hours 09/03/19 09/04/19 09/05/19 23:59 23:59 23:59 Intake Total 1200 / 1200 1080 / 1080 1080 / 1080 Output Total 1375 / 1375 1875 / 1875 450 / 450 Balance -175 / -175 -795 / -795 630 / 630 Past Medical History Past Medical History (Chronic Problems): Chronic Problems (Last Reviewed 08/22/19 @ 10:24 by Anika Choudhary) Stroke (Chronic) HLD (hyperlipidemia) (Chronic) Anxiety and depression (Chronic) Essential tremor (Chronic) Myelodysplasia (myelodysplastic syndrome) (Chronic) Low back pain (Chronic) Vascular dementia (Chronic) Hypertension (Chronic) Neuropathic pain (Chronic) Left hemiparesis (Chronic) Depression (Chronic) Anxiety (Chronic) Cerebrovascular disease (Chronic) Macrocytosis (Chronic) MDS (myelodysplastic syndrome), low grade (Chronic) Myeloma (Chronic) Lung nodule (Chronic) Left upper lobe, May 2018 Liver lesion, right lobe (Chronic) Negative biopsy for malignancy June 29, 2018 Anemia (Chronic) Tremor (Chronic) Cognitive dysfunction (Chronic) Meningioma (Chronic) Medical History: Medical History (Last Reviewed 08/22/19 @ 10:24 by Anika Choudhary) Cellulitis L03.90 left eye -2018 History of hysterectomy Z90.710 Meningioma D32.9 Gamma knife at [facility] ~2000 Osteopenia M85.80 Stroke I63.9 X2 - HOSPITALIZATION FOR 5 DAYS Allergies morphine Adverse Reaction (Severe, Verified 08/22/19 10:25) Nausea Home Medications: Ambulatory Orders Medication Instructions Recorded Enoxaparin [Lovenox] 60 mg SUBCUT Q12@0600,1800 05/31/19 Acyclovir [Zovirax] 400 mg PO BID 06/28/19 Atorvastatin Calcium [Lipitor] 80 mg PO QHS 06/28/19 Escitalopram Oxalate [Lexapro] 10 mg PO DAILY 06/28/19 Gabapentin [Neurontin] 200 mg PO BID 06/28/19 Hydrocodone/Acetaminophen 1 tab PO Q4H PRN PRN 06/28/19 [Hydrocodone-Acetamin 5-325 mg] Acetaminophen 1,000 mg PO Q8H 07/12/19 Albuterol Sulfate [Albuterol 2 puff IH Q4H PRN PRN 07/12/19 Sulfate Hfa] Atenolol 25 mg PO DAILY 07/12/19 Docusate Sodium [Colace] 100 mg PO BID 07/12/19 Ipratropium/Albuterol Sulfate 3 ml INHALATION Q4H.RT 07/12/19 [Duoneb] Lidocaine [Lidocaine Pain Relief] 1 ea TP DAILY@1000 07/12/19 Oxycodone [Oxyir] 5 mg PO Q4H PRN PRN 07/12/19 Pantoprazole Sodium [Protonix] 40 mg PO DAILY 07/12/19 Sennosides/Docusate Sodium 1 tab PO BID 07/12/19 [Senna-S Tablet] Surgical History: Surgical History (Last Reviewed 08/22/19 @ 10:24 by Anika Choudhary) History of cholecystectomy Z90.49 Surgical History: cholecystectomy, hysterectomy, tonsillectomy, - - Gamma knife meningioma. 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 Paternal Family History: Family History (Last Reviewed 08/22/19 @ 10:24 by Anika Choudhary) Mother Breast cancer Sister Breast cancer Aunt Breast cancer Daughter History of malignant melanoma Father Brain cancer Brother Lung cancer History Items: Cancer - Father with history of brain cancer. Capacity - Capacity Assessment Tool Can the patient make a choice & communicate that choice?: Yes Can the patient understand benefits, risks and alternatives?: Yes Can the patient make a logical, rational choice?: Yes Is the choice the patient makes consistent w/ their values?: Yes Is there an impending, emergent risk to the patient?: No Does the patient have an Advance Directive?: No Is there a Surrogate Available?: Yes i.e. HCPOA: Yes i.e. close relative (spouse, child, parent, sibling)?: Yes Review of Systems Constitutional: Denies: Chills, Fever, Weight Change HEENT: Denies: Head Aches, Sinus Congestion, Sinus Drainage Cardiovascular: Denies: Chest Pain, Palpitations Respiratory: Denies: Cough, Shortness of breath at rest, Sputum production Gastrointestinal: Denies: Abdominal Pain, Nausea, Vomiting Genitourinary: Denies: Dysuria Musculoskeletal: Denies: Joint Pain, Joint Tenderness Skin: Denies: Rash, Wounds Neurological: Denies: Numbness, Tingling, Focal weakness Psychiatric: Denies: Anxiety, Depression, Homicidal Ideations, Suicidal Ideations Hematologic/ Lymphatic: Denies: Easy Bruising, Easy Bleeding Patient Problems: Active and Suspected Problems (Last Reviewed 08/22/19 @ 10:24 by Anika Choudhary) Debility (Acute) Epidural hematoma (Acute) Cauda equina syndrome (Acute) Hypotension (Acute) Hypophosphatemia (Acute) - Physical Exam Vitals/I&O's: Vital Signs Temp Pulse Resp BP Pulse Ox 97.5 F L 78 18 98/50 L 96 09/05/19 16:00 09/05/19 16:00 09/05/19 16:00 09/05/19 16:00 09/05/19 16:00 Oxygen Delivery Method Room Air Weight: 60.951 kg Body Mass Index (BMI) 25.0 Finger Stick Blood Glucose 101 Intake and Output for Last 24 Hours 09/03/19 09/04/19 09/05/19 23:59 23:59 23:59 Intake Total 1200 / 1200 1080 / 1080 1080 / 1080 Output Total 1375 / 1375 1875 / 1875 450 / 450 Balance -175 / -175 -795 / -795 630 / 630 General: Alert, Oriented x3, Cooperative HEENT: Atraumatic, PERRLA, EOMI, Normocephalic Neck: Supple, No JVD, Negative Carotid Bruits Lungs: Clear to auscultation, Normal air movement Cardiovascular: Regular rate, No murmurs Abdomen: Bowel Sounds Present, Soft, Non Tender Extremities: No edema, Capillary Refill Less than 3 Seconds Skin: No rashes, No breakdown Musculoskeletal: No Tenderness to Palpation of Joints or Extremities Neurological: Cranial nerves II-XII grossly intact Psych/Mental Status: Normal Affect, Appropriate Current Medications Acetaminophen (Tylenol) 1,000 mg PO TID [facility] Last Admin: 09/05/19 13:21 Dose: 1,000 mg Documented by: Acyclovir (Zovirax) 400 mg PO BID [facility] Last Admin: 09/05/19 17:03 Dose: 400 mg Documented by: Albuterol Sulfate (Ventolin Hfa (Sp)) 2 puff INHALATION Q4H PRN PRN PRN Reason: WHEEZING Albuterol/Ipratropium (Duoneb) 3 ml INHALATION Q4H.RT PRN PRN Reason: SHORTNESS OF BREATH Atenolol (Tenormin (Beta Joann)) 25 mg PO DAILY [facility] Last Admin: 09/05/19 05:55 Dose: 25 mg Documented by: Atorvastatin Calcium (Lipitor) 80 mg PO QHS [facility] Last Admin: 09/04/19 19:48 Dose: 80 mg Documented by: Bisacodyl (Dulcolax) 10 mg PO DAILY PRN PRN Reason: Constipation Last Admin: 08/29/19 05:26 Dose: 10 mg Documented by: Bisacodyl (Dulcolax) 10 mg RECTAL X1 PRN PRN Reason: Constipation Bupropion HCl (Wellbutrin Sr (150mg Tablets)) 150 mg PO BID [facility] Last Admin: 09/05/19 17:03 Dose: 150 mg Documented by: Calamine/Phenol (Calmoseptine Ointment) 1 applic TOPICAL 0600,2200 [facility]; Protocol Last Admin: 09/05/19 05:58 Dose: 1 applicatio Documented by: Calcium Carbonate (Tums) 500 mg PO BIDCM [facility] Last Admin: 09/05/19 17:03 Dose: 500 mg Documented by: Dexamethasone (Decadron) 40 mg PO We@0800 [facility] Last Admin: 08/30/19 08:59 Dose: 40 mg Documented by: Enoxaparin Sodium (Lovenox) 60 mg SC Q12@0600,1800 [facility] Last Admin: 09/05/19 17:03 Dose: 60 mg Documented by: Escitalopram Oxalate (Lexapro) 20 mg PO DAILY [facility] Last Admin: 09/05/19 05:55 Dose: 20 mg Documented by: Gabapentin (Neurontin) 1,200 mg PO QHS [facility] Last Admin: 09/04/19 19:41 Dose: 1,200 mg Documented by: Gabapentin (Neurontin) 600 mg PO BIDCM PRN PRN Reason: nerve pain Lidocaine (Lidoderm Patch) 1 patch TOPICAL DAILY@1000 [facility] Last Admin: 09/05/19 09:44 Dose: 1 patch Documented by: Melatonin (Melatonin) 10 mg PO QHS [facility] Last Admin: 09/04/19 19:42 Dose: 10 mg Documented by: Multi-Ingredient Cream ([facility]ucerin) [facility]; Protocol Last Admin: 09/04/19 19:52 Dose: 1 applicatio Documented by: Nystatin (Mycostatin Powder) 1 applic TOPICAL 0600,2200 [facility]; Protocol Last Admin: 09/05/19 05:55 Dose: 1 applicatio Documented by: Oxycodone HCl (Oxyir) 10 mg PO Q4H PRN PRN PRN Reason: Pain Score 6-10/10 Last Admin: 08/26/19 20:16 Dose: 10 mg Documented by: Pantoprazole Sodium (Protonix) 40 mg PO DAILY [facility] Last Admin: 09/05/19 05:55 Dose: 40 mg Documented by: Polyethylene Glycol (Miralax) 17 gm PO DAILY PRN PRN Reason: Constipation Last Admin: 08/27/19 20:19 Dose: 17 gm Documented by: Promethazine HCl (Phenergan Tablet) 25 mg PO Q4H PRN PRN PRN Reason: NAUSEA/VOMITING Senna/Docusate Sodium (Senokot-S, Kassy-Colace) 2 tablet PO BID PRN PRN PRN Reason: Constipation Last Admin: 08/28/19 21:33 Dose: 2 tablet Documented by: Tamsulosin HCl (Flomax) 0.4 mg PO DAILY@1730 [facility] Last Admin: 09/05/19 17:03 Dose: 0.4 mg Documented by: Tramadol HCl (Ultram) 50 mg PO Q6H PRN PRN PRN Reason: Pain Score 1-5/10 Last Admin: 08/06/19 06:29 Dose: 50 mg Documented by: Assessment/Plan All Active Problems (Last Reviewed 08/22/19 @ 10:24 by Anika Choudhary) Chemotherapy management, encounter for (Acute) Intractable back pain (Acute) Debility (Acute) Epidural hematoma (Acute) Cauda equina syndrome (Acute) Hypotension (Acute) Hypophosphatemia (Acute) PFO (patent foramen ovale) (Ruled-out) 74 year old female with below past medical history significant for low back pain, multiple myeloma, stroke, hospitalized for large epidural hematoma, underwent posterior lumbar decompression with hematoma evacuation 06/29/2019, complicated by hypotension, hypophosphatemia, admitted to TCU with debility, here for rehabilitation, strengthening, prior to discharge home with . * Debility - PT/OT. * Cognition - ST. * Pain - Tylenol 1000MG TID, Tramadol 50MG Q6H PRN pain (1-5), Oxycodone 10MG Q4H PRN pain (6-10), Lidoderm patch 1 patch daily. * Bowel - Miralax 17GM daily PRN, Senna/colace 2 tablets BID PRN, Dulcolax 10MG daily PRN, Dulcolax 10MG HI daily PRN. * Adult immunization - Administer Prevnar 13, Pneumovax 23, Fluzone as necessary. * DVT prophylaxis - Not necessary, already anticoagulated. * Myelodysplastic syndrome - Acyclovir 400MG BID antiviral prophylaxis. * Multiple Myeloma - Revlimid stopped due to increasing risk of strokes, Dexame thasone 40MG Qweek. * Shortness of breath - Duoneb 3ML Q4H PRN, Albuterol 2 puffs Q4H PRN. * Essential tremor - Atenolol 25MG daily. * Hyperlipidemia - High intensity Atorvastatin 80MG daily due to recent strokes x 2. * Stroke with left hemiparesis - Failed Eliquis, on Lovenox 60MG SC Q12H. * Depression - Lexapro 20MG daily, Wellbutrin 150MG BID. * Neuropathic pain - Not well controlled, Increase Gabapentin to 1200MG QHS, add Gabapentin 600MG BID PRN neuropathic pain. * GERD - Pantoprazole 40MG daily, TUMS 500MG BID. * Urinary retention - Tamsulosin 0.4MG daily, Improved, botello catheter discontinued. * Skin irritation - Calmoseptine BID, Eucerin topical QHS. * Tinea Corporis - Nystatin powder BID. * Insomnia - Melatonin 10MG QHS. * Nausea - Phenergan 25MG Q4H PRN.
[2019-09-05 21:30] VITALS: BP 110/52; PULSE 80; RESP 16; TEMP 36.4; O2SAT 95
[2019-09-05] MEDS: Gabapentin 600 MG Tablet 1200 MG PO (21:47)
[2019-09-05] MEDS: Atorvastatin Calcium 80 MG Tablet PO (21:47)
[2019-09-05] MEDS: MELATONIN 10 MG TABLET PO (21:47)
[2019-09-06] MEDS: Atenolol 25 MG Tablet PO (05:32)
[2019-09-06] MEDS: Pantoprazole Sodium 40 MG Tablet PO (05:32)
[2019-09-06] MEDS: Menthol/Lanolin/Calamine/Znox 113 GM Tube 1 APPLIC TOPICAL ×2 (05:32→21:08)
[2019-09-06] MEDS: Acyclovir 200 MG Capsule 400 MG PO ×2 (05:32→18:01)
[2019-09-06] MEDS: Nystatin Powder 15gm Bottle 1 APPLIC TOPICAL ×2 (05:33→21:08)
[2019-09-06] MEDS: Enoxaparin 60 MG/0.6 ML Syringe SC ×2 (05:33→18:01)
[2019-09-06] MEDS: buPROPion (SR) 150 MG Tablet.SA PO ×2 (05:33→18:00)
[2019-09-06] MEDS: Escitalopram Oxalate 20 MG Tablet PO (05:33)
[2019-09-06] MEDS: Acetaminophen 500 MG Tablet 1000 MG PO ×3 (05:34→21:06)
[2019-09-06] MEDS: Calcium Carbonate 500 MG Tablet PO ×2 (08:05→18:00)
[2019-09-06] MEDS: dexAMETHasone 4 MG Tablet 40 MG PO (08:05)
--- NOTE | 2019-09-06 11:07 | NURSING ---
PT LEFT FLOOR AT 0920 FOR DOCTORS APPOINTMENT BY WHEEL CHAIR. AID TRANSFERRING.
--- NOTE | 2019-09-06 11:22 | NURSING ---
Was consulted to assess the open area to the buttocks, but patient is currently at a doctor's appt. will attempt to assess this afternoon.
[2019-09-06] MEDS: Lidocaine 5% Patch 1 PATCH TOPICAL (11:34)
--- NOTE | 2019-09-06 11:37 | NURSING ---
PT BACK TO FLOOR AT 11:30 AM BY WHEEL CHAIR WITH .
[2019-09-06 13:40] VITALS: PULSE 88; RESP 18; O2SAT 94
--- NOTE | 2019-09-06 14:14 | NURSING ---
NAYAN MACARIO/ WOUND NURSE INTO TO SEE PT FOR HER BOTTOM. PER NAYAN MACARIO NEW MEPILEX APPLIED CAN USE A 6X6 OR 4X4. GET OFF BOTTOM OFF AND ON DAY AND TURN AT NIGHT. DO NOT USE DONUT CUSHION. NAYAN MACARIO WILL CHECK BACK ON WEDNESDAY. REPORTED TO NAYAN NUÑEZ
--- NOTE | 2019-09-06 14:19 | NURSING ---
PT AND ASKING TO GO HOME ON WEDNESDAY, REFERRED PT TO [facility]. ALSO ASKED ABOUT GOING HOME WITH SCHWARTZ. STATED TO THAT WE WILL GET WITH DOCTOR MARISOL ABOUT DOING ANOTHER VOIDING TRIAL AND IF IT FAILS WILL INSERT A NEW SCHWARTZ WITH A LEG BAG BEFORE GOING HOME. PT AND STATED THAT WOULD BE GREAT AND REQUESTED TO BE TRAINED FOR THE SCHWARTZ. REPORTED TO NAYAN NUÑEZ
--- NOTE | 2019-09-06 14:35 | CASEMGMT ---
Social Work Spoke with patient and about DC plans whom are requesting to DC home 09/10. has completed three consecutive days of therapy training and pt has been on LOAs and both have gone well. Pt requesting outpatient therapy at [facility] - referral made for PT/OT/ST. Referred to [facility] for assistance with nursing care, medication management, etc. Referral to [facility] [place], [place] for FWW and 3-in-1 commode. Plan: DC home with 09/10 with [facility] outpatient PT/OT/ST, [facility], FWW and [facility]. Heidi Lugo, DIRECTOR ECONOMIC PRODUCTION FLOATER
[2019-09-06 15:38] VITALS: BP 128/54; PULSE 90; RESP 16; TEMP 36.6; O2SAT 95
[2019-09-06] MEDS: Tamsulosin HCl 0.4 MG Capsule PO (18:01)
[2019-09-06] MEDS: MELATONIN 10 MG TABLET PO (21:06)
[2019-09-06] MEDS: Gabapentin 600 MG Tablet 1200 MG PO (21:06)
[2019-09-06] MEDS: Atorvastatin Calcium 80 MG Tablet PO (21:07)
[2019-09-07] MEDS: Pantoprazole Sodium 40 MG Tablet PO (06:20)
[2019-09-07] MEDS: buPROPion (SR) 150 MG Tablet.SA PO ×2 (06:20→17:26)
[2019-09-07] MEDS: Atenolol 25 MG Tablet PO (06:20)
[2019-09-07] MEDS: Acetaminophen 500 MG Tablet 1000 MG PO ×3 (06:20→22:57)
[2019-09-07] MEDS: Enoxaparin 60 MG/0.6 ML Syringe SC ×2 (06:21→17:27)
[2019-09-07] MEDS: Escitalopram Oxalate 20 MG Tablet PO (06:24)
[2019-09-07] MEDS: Acyclovir 200 MG Capsule 400 MG PO ×2 (06:26→17:26)
[2019-09-07] MEDS: Nystatin Powder 15gm Bottle 1 APPLIC TOPICAL ×2 (06:26→22:56)
[2019-09-07] MEDS: Menthol/Lanolin/Calamine/Znox 113 GM Tube 1 APPLIC TOPICAL ×2 (06:26→22:56)
--- NOTE | 2019-09-07 06:57 | NURSING ---
Botello removed this morning per doctor order catheter intact 6cc of water removed. Pt voice no concern during this time. 270 ml of urine from botello catheter at this time. Rn aware.
[2019-09-07] MEDS: Calcium Carbonate 500 MG Tablet PO ×2 (08:10→17:27)
[2019-09-07] MEDS: Lidocaine 5% Patch 1 PATCH TOPICAL (08:11)
--- NOTE | 2019-09-07 08:47 | CCN.REFER ---
Agrees to [facility]. Consent signed. T/C to to make aware and he also agrees. [facility] to start weekly visits the week of 09/18.
--- NOTE | 2019-09-07 14:07 | MDS.RN ---
Pain interview for kurtis 09/10/19 completed.
[2019-09-07 16:00] VITALS: BP 102/47; PULSE 71; RESP 18; TEMP 36.2; O2SAT 98
[2019-09-07] MEDS: Tamsulosin HCl 0.4 MG Capsule PO (17:27)
--- NOTE | 2019-09-07 20:06 | PCM.DC ---
- Discharge Diagnoses Current Active Problems: Current Active and Chronic Problems (Last Reviewed 09/06/19 @ 09:58 by Anika Choudhary) Debility (Acute) Epidural hematoma (Acute) Cauda equina syndrome (Acute) Hypotension (Acute) Hypophosphatemia (Acute) Essential tremor (Chronic) Myelodysplasia (myelodysplastic syndrome) (Chronic) Low back pain (Chronic) Vascular dementia (Chronic) Hypertension (Chronic) Neuropathic pain (Chronic) Left hemiparesis (Chronic) Depression (Chronic) Anxiety (Chronic) You will use the following diet at home:: No restrictions, Regular Your food should be the consistency of: Regular Your liquids should be the consistency of: Regular/Thin Discharge Activity: Return to Normal Activity, May Shower, Use Walker Weight Bearing Status: Weight bearing as tolerated Call your doctor if you observe: Fever of 101 or Higher, Inability to urinate, Inability to have a bowel movement, Shortness of breath, Chest pain, Uncontrolled pain Allergies/Adverse Reactions: Allergies morphine Adverse Reaction (Severe, Verified 09/06/19 09:59) Nausea Medications to take at Discharge Enoxaparin [Lovenox] 60 mg SUBCUT Q12@0600,1800 05/31/19 Acyclovir [Zovirax] 400 mg PO BID 06/28/19 Atorvastatin Calcium [Lipitor] 80 mg PO QHS 06/28/19 Acetaminophen 1,000 mg PO Q8H 07/12/19 Atenolol 25 mg PO DAILY 07/12/19 Calcium Carbonate [Tums] 500 mg PO BIDCM tablet 09/07/19 Dexamethasone [Decadron] 40 mg PO We@0800 #20 tab 09/07/19 Escitalopram Oxalate [Lexapro] 20 mg PO DAILY #30 tab 09/07/19 Gabapentin [Neurontin] 1,200 mg PO QHS #60 tab 09/07/19 Gabapentin [Neurontin] 600 mg PO BIDCM PRN #60 tab 09/07/19 Lidocaine [Lidocaine Pain Relief] 1 ea TP DAILY@1000 #30 09/07/19 Melatonin 10 mg PO QHS tablet 09/07/19 Menthol/Lanolin/Calamine/Znox [Calmoseptine Ointment] 1 applic TOPICAL 0600,2200 tube 09/07/19 Mineral Oil/Petrolatum,White [Eucerin] 1 applic TOPICAL QHS jar 09/07/19 Nystatin Powder [Mycostatin Powder] 1 applic TOPICAL 0600,2200 bottle 09/07/19 Pantoprazole Sodium [Protonix] 40 mg PO DAILY #30 tab 09/07/19 Tamsulosin HCl [Flomax] 0.4 mg PO DAILY@1730 #30 cap 09/07/19 buPROPion SR [Wellbutrin SR (150mg tablets)] 150 mg PO BID #60 tablet.sa 09/07/19 The following prescriptions were given: Dexamethasone [Decadron] 40 mg PO We@0800 #20 tab Transmission Status: Pending to [facility]30 Tamsulosin HCl [Flomax] 0.4 mg PO DAILY@1730 #30 cap Transmission Status: Pending to [facility]30 Escitalopram Oxalate [Lexapro] 20 mg PO DAILY #30 tab Transmission Status: Pending to [facility]30 Lidocaine [Lidocaine Pain Relief] 1 ea TP DAILY@1000 #30 Gabapentin [Neurontin] 600 mg PO BIDCM PRN #60 tab PRN Reason: nerve pain Transmission Status: Pending to [facility]30 Gabapentin [Neurontin] 1,200 mg PO QHS #60 tab Transmission Status: Pending to [facility]30 Pantoprazole Sodium [Protonix] 40 mg PO DAILY #30 tab Transmission Status: Pending to [facility] #30 buPROPion SR [Wellbutrin SR (150mg tablets)] 150 mg PO BID #60 tablet.sa Transmission Status: Pending to [facility]30 Primary Care Physician: Augusta Wilson DO [Primary Care Provider] - Please follow up with your Primary Care Physician in: 1 week. Test Results: Test results from this visit will be discussed in further detail at your follow-up appointment, if applicable. Please Follow Up With: Augusta Wilson When: PCP f/u after D/C from TCU Please Follow Up With: Christian Gómez MD When: [phone] Please Follow Up With: Ja Beal When: 6-8 weeks Proposed Discharge Date: 09/10/19
--- NOTE | 2019-09-07 20:09 | PCM.DC.SUM ---
Discharge Date and Diagnosis - Problem List Patient Problems: Active and Suspected Problems (Last Reviewed 09/06/19 @ 09:58 by Anika Choudhary) Debility (Acute) Epidural hematoma (Acute) Cauda equina syndrome (Acute) Hypotension (Acute) Hypophosphatemia (Acute) Date of Admission: 07/12/19 Date of Discharge: 09/10/19 - Primary Discharge Diagnosis Active and Suspected Problems (Last Reviewed 09/06/19 @ 09:58 by Anika Choudhary) Debility (Acute) Epidural hematoma (Acute) Cauda equina syndrome (Acute) Hypotension (Acute) Hypophosphatemia (Acute) - Secondary Discharge Diagnosis Chronic Problems (Last Reviewed 09/06/19 @ 09:58 by Anika Choudhary) Stroke (Chronic) HLD (hyperlipidemia) (Chronic) Anxiety and depression (Chronic) Essential tremor (Chronic) Myelodysplasia (myelodysplastic syndrome) (Chronic) Low back pain (Chronic) Vascular dementia (Chronic) Hypertension (Chronic) Neuropathic pain (Chronic) Left hemiparesis (Chronic) Depression (Chronic) Anxiety (Chronic) Cerebrovascular disease (Chronic) Macrocytosis (Chronic) MDS (myelodysplastic syndrome), low grade (Chronic) Myeloma (Chronic) Lung nodule (Chronic) Left upper lobe, May 2018 Liver lesion, right lobe (Chronic) Negative biopsy for malignancy June 29, 2018 Anemia (Chronic) Tremor (Chronic) Cognitive dysfunction (Chronic) Meningioma (Chronic) Hospital Course and Treatment Imaging Results: 07/12/19 19:41 Diet: Regular Diet Clinical Impression(s) from Imaging Studies [facility] X-Ray 08/13/19 13:22 IMPRESSION: No acute abnormality of the abdomen or pelvis. Electronically Signed: Ihsan Mendosa MD at 14:19 EST , Service support , Consultations 09/05/19 18:50 Oncology [Consult: Onc/Wound/clinician oncology] Routine Comment: Reason for Consult:: rt inner buttock pressure/shearing Operations: None Procedures: None Summary of Care Provided: The patient is a 74 year old Fmale with below past medical history significant for low back pain, multiple myeloma, stroke, hospitalized for large epidural hematoma, underwent posterior lumbar decompression with hematoma evacuation 06/29/2019, complicated by hypotension, hypophosphatemia, admitted to TCU with debility, here for rehabilitation, strengthening, prior to discharge home with . On TCU, gabapentin added for severe neuropathic pain. Tamsulosin added for urinary retention. Escitalopram increased to 20MG, Bupropion 150MG twice daily added for difficult to control depression. Pantoprazole added for stomach protection from dexamethasone. Discharge home with , [facility] outpatient PT/OT/SN, [facility], Front Wheeled Walker, Bedside Commode. Patient Problems: Active and Suspected Problems (Last Reviewed 09/06/19 @ 09:58 by Anika Choudhary) Debility (Acute) Epidural hematoma (Acute) Cauda equina syndrome (Acute) Hypotension (Acute) Hypophosphatemia (Acute) - Physical Exam Vitals/I&O's: Vital Signs Temp Pulse Resp BP Pulse Ox 97.1 F L 71 18 102/47 L 98 09/07/19 16:00 09/07/19 16:00 09/07/19 16:00 09/07/19 16:00 09/07/19 16:00 Oxygen Delivery Method Room Air Weight: 60.951 kg Body Mass Index (BMI) 25.0 Finger Stick Blood Glucose 101 Intake and Output for Last 24 Hours 09/05/19 09/06/19 09/07/19 23:59 23:59 23:59 Intake Total 1320 / 1320 840 / 840 1080 / 1080 Output Total 875 / 875 1625 / 1625 720 / 720 Balance 445 / 445 -785 / -785 360 / 360 Current Medications Acetaminophen (Tylenol) 1,000 mg PO TID [facility] Last Admin: 09/07/19 14:57 Dose: 1,000 mg Documented by: Acyclovir (Zovirax) 400 mg PO BID [facility] Last Admin: 09/07/19 17:26 Dose: 400 mg Documented by: Albuterol Sulfate (Ventolin Hfa (Sp)) 2 puff INHALATION Q4H PRN PRN PRN Reason: WHEEZING Albuterol/Ipratropium (Duoneb) 3 ml INHALATION Q4H.RT PRN PRN Reason: SHORTNESS OF BREATH Atenolol (Tenormin (Beta Joann)) 25 mg PO DAILY [facility] Last Admin: 09/07/19 06:20 Dose: 25 mg Documented by: Atorvastatin Calcium (Lipitor) 80 mg PO QHS [facility] Last Admin: 09/06/19 21:07 Dose: 80 mg Documented by: Bisacodyl (Dulcolax) 10 mg PO DAILY PRN PRN Reason: Constipation Last Admin: 08/29/19 05:26 Dose: 10 mg Documented by: Bisacodyl (Dulcolax) 10 mg RECTAL X1 PRN PRN Reason: Constipation Bupropion HCl (Wellbutrin Sr (150mg Tablets)) 150 mg PO BID [facility] Last Admin: 09/07/19 17:26 Dose: 150 mg Documented by: Calamine/Phenol (Calmoseptine Ointment) 1 applic TOPICAL 0600,2200 [facility]; Protocol Last Admin: 09/07/19 06:26 Dose: 1 applicatio Documented by: Calcium Carbonate (Tums) 500 mg PO BIDCM [facility] Last Admin: 09/07/19 17:27 Dose: 500 mg Documented by: Dexamethasone (Decadron) 40 mg PO We@0800 [facility] Last Admin: 09/06/19 08:05 Dose: 40 mg Documented by: Enoxaparin Sodium (Lovenox) 60 mg SC Q12@0600,1800 [facility] Last Admin: 09/07/19 17:27 Dose: 60 mg Documented by: Escitalopram Oxalate (Lexapro) 20 mg PO DAILY [facility] Last Admin: 09/07/19 06:24 Dose: 20 mg Documented by: Gabapentin (Neurontin) 1,200 mg PO QHS [facility] Last Admin: 09/06/19 21:06 Dose: 1,200 mg Documented by: Gabapentin (Neurontin) 600 mg PO BIDCM PRN PRN Reason: nerve pain Lidocaine (Lidoderm Patch) 1 patch TOPICAL DAILY@1000 [facility] Last Admin: 09/07/19 08:11 Dose: 1 patch Documented by: Melatonin (Melatonin) 10 mg PO QHS [facility] Last Admin: 09/06/19 21:06 Dose: 10 mg Documented by: Multi-Ingredient Cream (Eucerin) 1 applic TOPICAL [facility]; Protocol Last Admin: 09/06/19 21:08 Dose: 1 applicatio Documented by: Nystatin (Mycostatin Powder) 1 applic TOPICAL 0600,2200 [facility]; Protocol Last Admin: 09/07/19 06:26 Dose: 1 applicatio Documented by: Oxycodone HCl (Oxyir) 10 mg PO Q4H PRN PRN PRN Reason: Pain Score 6-10/10 Last Admin: 08/26/19 20:16 Dose: 10 mg Documented by: Pantoprazole Sodium (Protonix) 40 mg PO DAILY [facility] Last Admin: 09/07/19 06:20 Dose: 40 mg Documented by: Polyethylene Glycol (Miralax) 17 gm PO DAILY PRN PRN Reason: Constipation Last Admin: 08/27/19 20:19 Dose: 17 gm Documented by: Promethazine HCl (Phenergan Tablet) 25 mg PO Q4H PRN PRN PRN Reason: NAUSEA/VOMITING Senna/Docusate Sodium (Senokot-S, Kassy-Colace) 2 tablet PO BID PRN PRN PRN Reason: Constipation Last Admin: 08/28/19 21:33 Dose: 2 tablet Documented by: Tamsulosin HCl (Flomax) 0.4 mg PO DAILY@1730 [facility] Last Admin: 09/07/19 17:27 Dose: 0.4 mg Documented by: Tramadol HCl (Ultram) 50 mg PO Q6H PRN PRN PRN Reason: Pain Score 1-5/10 Last Admin: 08/06/19 06:29 Dose: 50 mg Documented by: Discharge Diet: No Restrictions Discharge Activity: Return to Normal Activity, May Shower, Use Walker Weight Bearing Status: Weight bearing as tolerated Call your doctor if you observe: Fever of 101 or Higher, Inability to urinate, Inability to have a bowel movement, Shortness of breath, Chest pain, Uncontrolled pain Home Medications: Medications to take at Discharge Enoxaparin [Lovenox] 60 mg SUBCUT Q12@0600,1800 05/31/19 Acyclovir [Zovirax] 400 mg PO BID 06/28/19 Atorvastatin Calcium [Lipitor] 80 mg PO QHS 06/28/19 Acetaminophen 1,000 mg PO Q8H 07/12/19 Atenolol 25 mg PO DAILY 07/12/19 Calcium Carbonate [Tums] 500 mg PO BIDCM tablet 09/07/19 Dexamethasone [Decadron] 40 mg PO We@0800 #20 tab 09/07/19 Escitalopram Oxalate [Lexapro] 20 mg PO DAILY #30 tab 09/07/19 Gabapentin [Neurontin] 1,200 mg PO QHS #60 tab 09/07/19 Gabapentin [Neurontin] 600 mg PO BIDCM PRN #60 tab 09/07/19 Lidocaine [Lidocaine Pain Relief] 1 ea TP DAILY@1000 #30 09/07/19 Melatonin 10 mg PO QHS tablet 09/07/19 Menthol/Lanolin/Calamine/Znox [Calmoseptine Ointment] 1 applic TOPICAL 0600,2200 tube 09/07/19 Mineral Oil/Petrolatum,White [Eucerin] 1 applic TOPICAL QHS jar 09/07/19 Nystatin Powder [Mycostatin Powder] 1 applic TOPICAL 0600,2200 bottle 09/07/19 Pantoprazole Sodium [Protonix] 40 mg PO DAILY #30 tab 09/07/19 Tamsulosin HCl [Flomax] 0.4 mg PO DAILY@1730 #30 cap 09/07/19 buPROPion SR [Wellbutrin SR (150mg tablets)] 150 mg PO BID #60 tablet.sa 09/07/19 Following Prescrptions Were Given to Patient: Dexamethasone [Decadron] 40 mg PO We@0800 #20 tab Transmission Status: Pending to [facility] #30 Tamsulosin HCl [Flomax] 0.4 mg PO DAILY@1730 #30 cap Transmission Status: Pending to [facility] #30 Escitalopram Oxalate [Lexapro] 20 mg PO DAILY #30 tab Transmission Status: Pending to [facility] #30 Lidocaine [Lidocaine Pain Relief] 1 ea TP DAILY@1000 #30 Gabapentin [Neurontin] 600 mg PO BIDCM PRN #60 tab PRN Reason: nerve pain Transmission Status: Pending to [facility] #30 Gabapentin [Neurontin] 1,200 mg PO QHS #60 tab Transmission Status: Pending to [facility] #30 Pantoprazole Sodium [Protonix] 40 mg PO DAILY #30 tab Transmission Status: Pending to [facility] #30 buPROPion SR [Wellbutrin SR (150mg tablets)] 150 mg PO BID #60 tablet.sa Transmission Status: Pending to [facility] #30 Primary Care Physician: Augusta Wilson DO [Primary Care Provider] - Please follow up with your Primary Care Physician in: 1 week. Please Follow Up With: Augusta Wilson When: PCP f/u after D/C from TCU Please Follow Up With: Christian Gómez MD When: [phone] Please Follow Up With: Ja Beal When: 6-8 weeks Disposition: Home Minutes spent on discharge:: 35 Patient Condition:: Stable Medical Necessity - Tobacco Use Smoking Status: Never smoker Tobacco Use: Non-smoker Meaningful Use Info Meaningful Use Diagnoses (Choose all that apply): None applicable
[2019-09-07] MEDS: MELATONIN 10 MG TABLET PO (22:55)
[2019-09-07] MEDS: Atorvastatin Calcium 80 MG Tablet PO (22:55)
[2019-09-07] MEDS: Gabapentin 600 MG Tablet 1200 MG PO (22:55)
[2019-09-08] MEDS: Acyclovir 200 MG Capsule 400 MG PO ×2 (06:04→18:03)
[2019-09-08] MEDS: Pantoprazole Sodium 40 MG Tablet PO (06:04)
[2019-09-08] MEDS: buPROPion (SR) 150 MG Tablet.SA PO ×2 (06:04→18:03)
[2019-09-08] MEDS: Acetaminophen 500 MG Tablet 1000 MG PO ×3 (06:04→22:46)
[2019-09-08] MEDS: Escitalopram Oxalate 20 MG Tablet PO (06:04)
[2019-09-08 06:07] VITALS: BP 115/52; PULSE 70
[2019-09-08] MEDS: Atenolol 25 MG Tablet PO (06:07)
[2019-09-08] MEDS: Nystatin Powder 15gm Bottle 1 APPLIC TOPICAL ×2 (06:09→21:21)
[2019-09-08] MEDS: Menthol/Lanolin/Calamine/Znox 113 GM Tube 1 APPLIC TOPICAL ×2 (06:09→21:21)
[2019-09-08] MEDS: Enoxaparin 60 MG/0.6 ML Syringe SC ×2 (06:10→18:03)
[2019-09-08] MEDS: Calcium Carbonate 500 MG Tablet PO ×2 (10:00→18:03)
[2019-09-08] MEDS: Lidocaine 5% Patch 1 PATCH TOPICAL (10:01)
--- NOTE | 2019-09-08 10:23 | CASEMGMT ---
Social Work BIMS and PHQ-9 completed for MDS assessment. Heidi Lugo, [employer]
[2019-09-08 16:00] VITALS: BP 117/59; PULSE 71; RESP 17; TEMP 36.6; O2SAT 95
[2019-09-08] MEDS: Tamsulosin HCl 0.4 MG Capsule PO (18:03)
[2019-09-08] MEDS: Gabapentin 600 MG Tablet 1200 MG PO (21:20)
[2019-09-08] MEDS: Atorvastatin Calcium 80 MG Tablet PO (21:20)
[2019-09-08] MEDS: MELATONIN 10 MG TABLET PO (21:20)
[2019-09-08] MEDS: oxyCODONE 5 MG Tablet 10 MG PO (21:22)
[2019-09-08 21:54] VITALS: PULSE 84; RESP 16; O2SAT 95
[2019-09-09] MEDS: Menthol/Lanolin/Calamine/Znox 113 GM Tube 1 APPLIC TOPICAL ×2 (05:24→20:58)
[2019-09-09] MEDS: Escitalopram Oxalate 20 MG Tablet PO (05:25)
[2019-09-09] MEDS: Atenolol 25 MG Tablet PO (05:25)
[2019-09-09] MEDS: Enoxaparin 60 MG/0.6 ML Syringe SC ×2 (05:25→17:05)
[2019-09-09] MEDS: Pantoprazole Sodium 40 MG Tablet PO (05:25)
[2019-09-09] MEDS: buPROPion (SR) 150 MG Tablet.SA PO ×2 (05:26→17:04)
[2019-09-09] MEDS: Acyclovir 200 MG Capsule 400 MG PO ×2 (05:26→17:04)
[2019-09-09] MEDS: Acetaminophen 500 MG Tablet 1000 MG PO ×3 (05:26→21:00)
[2019-09-09] MEDS: Nystatin Powder 15gm Bottle 1 APPLIC TOPICAL ×2 (05:27→20:59)
[2019-09-09] MEDS: Calcium Carbonate 500 MG Tablet PO ×2 (08:01→17:05)
[2019-09-09] MEDS: Lidocaine 5% Patch 1 PATCH TOPICAL (09:44)
[2019-09-09 09:45] VITALS: PULSE 70; RESP 18; O2SAT 94
[2019-09-09 15:29] VITALS: BP 111/51; PULSE 82; RESP 18; TEMP 36.4; O2SAT 96
[2019-09-09] MEDS: Tamsulosin HCl 0.4 MG Capsule PO (17:04)
[2019-09-09] MEDS: Gabapentin 600 MG Tablet 1200 MG PO (21:00)
[2019-09-09] MEDS: MELATONIN 10 MG TABLET PO (21:00)
[2019-09-09] MEDS: Atorvastatin Calcium 80 MG Tablet PO (21:00)
[2019-09-10] MEDS: buPROPion (SR) 150 MG Tablet.SA PO (05:52)
[2019-09-10] MEDS: Pantoprazole Sodium 40 MG Tablet PO (05:52)
[2019-09-10] MEDS: Acetaminophen 500 MG Tablet 1000 MG PO (05:52)
[2019-09-10] MEDS: Atenolol 25 MG Tablet PO (05:52)
[2019-09-10] MEDS: Enoxaparin 60 MG/0.6 ML Syringe SC (05:52)
[2019-09-10] MEDS: Acyclovir 200 MG Capsule 400 MG PO (05:52)
[2019-09-10] MEDS: Escitalopram Oxalate 20 MG Tablet PO (05:52)
[2019-09-10] MEDS: Menthol/Lanolin/Calamine/Znox 113 GM Tube 1 APPLIC TOPICAL (05:55)
[2019-09-10] MEDS: Nystatin Powder 15gm Bottle 1 APPLIC TOPICAL (05:55)
[2019-09-10] MEDS: Calcium Carbonate 500 MG Tablet PO (07:44)
[2019-09-10] MEDS: Lidocaine 5% Patch 1 PATCH TOPICAL (09:04)
[2019-09-10 09:35] VITALS: BP 109/54; PULSE 74; RESP 18; TEMP 36.8; O2SAT 93
--- NOTE | 2019-09-10 10:35 | NURSING ---
dr casillas notified, pt was not taking lipitor at home prior to admit, he is gonna call it into [facility]. Pt and updated.
== END 2019-09-10 10:43 | disposition home or self-care (01) | DRG 949 ==
PROVIDERS: Admitting Provider Family Medicine Geriatric Medicine; Family Provider Family Medicine; PCP Family Medicine; Visit Provider Family Medicine Geriatric Medicine
DX: S34.109D Unspecified injury to unspecified level of lumbar spinal cord, subsequent encounter (principal); C90.00 Multiple myeloma not having achieved remission; I69.354 Hemiplegia and hemiparesis following cerebral infarction affecting left non-dominant side; G83.4 Cauda equina syndrome; X58.XXXD Exposure to other specified factors, subsequent encounter; D46.9 Myelodysplastic syndrome, unspecified; G25.0 Essential tremor; E78.5 Hyperlipidemia, unspecified; F32.9 Major depressive disorder, single episode, unspecified; F41.9 Anxiety disorder, unspecified; K21.9 Gastro-esophageal reflux disease without esophagitis; I10 Essential (primary) hypertension; G89.29 Other chronic pain; I95.9 Hypotension, unspecified; E83.39 Other disorders of phosphorus metabolism; F01.50 Vascular dementia, unspecified severity, without behavioral disturbance, psychotic disturbance, mood disturbance, and anxiety; R33.9 Retention of urine, unspecified; Z86.011 Personal history of benign neoplasm of the brain; B35.4 Tinea corporis
CPT/HCPCS: 36415; 74018; 80048; 80053; 81001; 82728; 82784; 83540; 83550; 83883; 84165; 85025; 86334; 87077; 87086; 87088; 87186; 92507; 92523; 96365; 96366; 97110; 97116; 97140; 97162; 97166; 97530; 97535; 97802; 97803; J1756; J3489; J7050; A4216

== ENCOUNTER → 2019-09-14 08:27 | Outpatient (CLI) | payer MEDICARE, OTHER, SELFPAY ==
[2019-09-08 11:12] VITALS: BMI 23.9
== END ==
PROVIDERS: PCP Family Medicine; Referring Provider Family Medicine; Visit Provider Family Medicine
DX: L89.90 Pressure ulcer of unspecified site, unspecified stage (principal)
CPT/HCPCS: 87070; 87075; 87077; 87186; 87205

== ENCOUNTER 2019-09-18 11:08 | Outpatient (RCR) | payer MEDICARE, OTHER, SELFPAY ==
[2019-09-08 11:12] VITALS: BMI 23.9
[2019-09-15 08:49] VITALS: BMI 23.9
--- NOTE | 2019-09-18 12:27 | HP.SP.AD ---
History - History Date of Eval: 09/18/19 Medical Diagnosis (from RX): CAULDA EQUINA SYNDROME Date of Onset of Diagnosis: 02/03/19 Previous speech therapy: Yes Results: Patient has been treated while in TCU as well as an outpatient prior to TCU admit. Progress noted for both areas. Other Relevant Medical History/Diagnoses/Surgery: Debility. Epidural hematoma. Cauda equina syndrome. Hypotension. Hypophosphatemia. Stroke (Chronic). HLD (hyperlipidemia) (Chronic). Anxiety and depression (Chronic). Essential tremor (Chronic). Myelodysplasia (myelodysplastic syndrome) (Chronic). Low back pain (Chronic). Vascular dementia (Chronic). Hypertension (Chronic). Neuropathic pain (Chronic). Left hemiparesis (Chronic). Depression (Chronic). Anxiety (Chronic). Cerebrovascular disease (Chronic). Macrocytosis (Chronic). MDS (myelodysplastic syndrome), low grade (Chronic). Myeloma (Chronic). Lung nodule (Chronic). Left upper lobe, May 2018. Liver lesion, right lobe (Chronic). Negative biopsy for malignancy June 29, 2018. Anemia (Chronic). Tremor (Chronic). Cognitive dysfunction (Chronic). Meningioma (Chronic) Medications related to this diagnosis: Enoxaparin [Lovenox] 60 mg SUBCUT Q12@0600,1800 05/31/19. Acyclovir [Zovirax] 400 mg PO BID 06/28/19. Atorvastatin Calcium [Lipitor] 80 mg PO QHS 06/28/19. Acetaminophen 1,000 mg PO Q8H 07/12/19. Atenolol 25 mg PO DAILY 07/12/19. Dexamethasone [Decadron] 40 mg PO We@0800 #20 tab. Transmission Status: Pending to [facility] #30. Tamsulosin HCl [Flomax] 0.4 mg PO DAILY@1730 #30 cap. Transmission Status: Pending to [facility] #30. Escitalopram Oxalate [Lexapro] 20 mg PO DAILY #30 tab. Transmission Status: Pending to [facility] #30. Lidocaine [Lidocaine Pain Relief] 1 ea TP DAILY@1000 #30. Gabapentin [Neurontin] 600 mg PO BIDCM PRN #60 tab. PRN Reason: nerve pain. Transmission Status: Pending to [facility] #30. Gabapentin [Neurontin] 1,200 mg PO QHS #60 tab. Transmission Status: Pending to [facility] #30. Pantoprazole Sodium [Protonix] 40 mg PO DAILY #30 tab. Transmission Status: Pending to [facility] #30. buPROPion SR [Wellbutrin SR (150mg tablets)] 150 mg PO BID #60 tablet.sa. Transmission Status: Pending to [facility] #30. Calcium Carbonate [Tums] 500 mg PO BIDCM tablet 09/07/19. Dexamethasone [Decadron] 40 mg PO We@0800 #20 tab 09/07/19. Escitalopram Oxalate [Lexapro] 20 mg PO DAILY #30 tab 09/07/19. Gabapentin [Neurontin] 1,200 mg PO QHS #60 tab 09/07/19. Gabapentin [Neurontin] 600 mg PO BIDCM PRN #60 tab 09/07/19. Lidocaine [Lidocaine Pain Relief] 1 ea TP DAILY@1000 #30 09/07/19. Melatonin 10 mg PO QHS tablet 09/07/19. Menthol/Lanolin/Calamine/Znox [Calmoseptine Ointment] 1 applic TOPICAL 0600,2200 tube 09/07/19. Mineral Oil/Petrolatum,White [Eucerin] 1 applic TOPICAL QHS jar 09/07/19. Nystatin Powder [Mycostatin Powder] 1 applic TOPICAL 0600,2200 bottle 09/07/19. Pantoprazole Sodium [Protonix] 40 mg PO DAILY #30 tab 09/07/19. Tamsulosin HCl [Flomax] 0.4 mg PO DAILY@1730 #30 cap 09/07/19. buPROPion SR [Wellbutrin SR (150mg tablets)] 150 mg PO BID #60 tablet.sa 09/07/19 Smoking Status: Never smoker Hx Smoking: No Hx Tobacco Use: No Hx Smoking Exposure: No - Pain Is pain an issue with your current prescribed condition?: Yes - Personal Occupation: Retired. Right Hearing Abillity: Normal Left Hearing Abillity: Normal Visual Assistive Devices: Glasses Patients Living Arrangements: With Significant Other Patient Allergies - Allergies Allergies morphine Adverse Reaction (Severe, Verified 09/15/19 09:04) Nausea Objective Cog/Ling/Com - Test Administered Rztqvnxxb-Ncvljnkuiw-Bjhbkxzghjfcq Assessment Administered: Yes Mjfrqsxdi-Onmrwzlypv-Gyboywfyxndkm Assessment: Cognitive ? Linguistic skills were evaluated using patient/family interview, skilled observation and informal evaluation through tasks completed by the patient. - Orientation Orientation: Person, Birthdate - Naming Responsive naming: WFL - Comments Comments: Patient was able to answer simple questions but unable to give medical history. She made very little eye contact and appeared very anxious during the session. She gave only brief answers. - Executive Function Comments Comments: While in TCU the patient was progressing with numerical processes/checkbook completion. Her requested that this continue. CLQT - CLQT CLQT Administered: Yes CLQT: Cognitive Linguistic Quick Test (CLQT) is a criterion - referenced assessment designed for adults between the ages of 18 and 89 with known or suspected neurological dysfuntions. The CLQT is to assess strength and weaknesses in five cognitive domains. Severity ratings are within normal limits, mild, moderate, severe deficits. The subtests are as follows: Date: 09/18/19 - Memory Memory: Mild - Language Language: Moderate - CLQT Comments Comments Pam was not able to complete the entire evaluation secondary to time constraints and her anxiety. She had difficulty with writing due to hands shaking, therefore, the mazes subtest. She needed maximal encouragement to continue to do evaluation tasks. She was able to name 10 items with no cues. She was unable to tell her age ( stated I dont' know). She had very poor generative naming ( 3, 1 respectively in 2 categories after 1 minute). With visual cues ( design memory) she did better with being able to identify pictures shown. Independent recall without cues was very difficult for her. Plan - Plan Plan: Speech therapy is warranted for significant deficits in cognition and language skills secondary to history of multiple CVA as well as current regression with skills. - Recommendations Treatment Warranted: Yes - Frequency Frequency: 1x/Week Duration: 2 Months Visits in this POC: 8 - Prognosis Prognosis: Good - Goals that are Established: Determination:: Goals will be added/modified as deemed necessary and appropriate. Therapy will be discontinued when results of re-evaluation indicate therapy is no longer needed or lack of progress has been documented. - Goal #1-5 Goal #1: Patient will utilize compensatory executive functioning / processing strategies identified and implemented throughout the intervention cycle (considerations for PDRE, TPMT) to facilitate improved cognitive processing, attention to task, and achievement of the highest level of safe, independent functioning with 100% accuracy over 2 consecutive sessions. Goal #2: Patient will independently complete complex money management tasks with use of previously established compensatory strategies to facilitate achievement of the highest level of safe, independent functioning with > 90% accuracy over 2 consecutive sessions. Goal #3: Further assessment for cognitive linguistic skills. Education - Patient has Indicated that the Following Identified Educational Needs: None The Patient has indicated that they have no educational or learning abilities that may effect their care.: Yes - Patient Instruction Patient Education: Diagnosis, Treatment Plan Person Taught: Patient, Significant Other Teaching Method: Discussion Response to teaching: Reinforcement needed
--- NOTE | 2019-09-18 14:01 | HP.PTEVAL ---
Patient's Visit Information RADHA SPENCER is a 74 year old F referred to Physical Therapy by Jovanni Steven MD with a diagnosis of Cauda Equina Syndrome. Date of Evaluation: 09/18/19 Physical Therapist: Constantino Azul DPT, OCS, CSCS - Visit Plan Frequency: 3x /Week Duration: 4-6 Weeks Plan: 3x/week for 4-6 weeks for... 1. tranfer and gait training with wh walker as tolerated. LE strength. Stretch posterior legs. Pt is very frustrated with situation and has not done much at home to further her progress. - Subjective Findings: Had back surgery after injections from Dr. Jean made her back worse. Pt has trouble remembering her story. Was in hospital 9 weeks after back surgery. Had injections and got hematoma in spinal cord from injections. Surgery was to relieve that pressure. She lost her ability to use her bowels and bladder adn cannot walk. Surgery was end May. Prior to that could walk without a problem. Is in basic remission from multiple myeloma and oncologist sent to pain management. Not walked since. Numb from knees down but no pain. No back pain. Uses to get around. Hangs out on couch and naps and is fairly sedentary. Has some UE exercises adn LE ex in TCU and has bands at home but hasn't done them. Home from U one week. Sleep is OK. Needs help from to get out of bed and into . Prior to this travelled alot. Wants to walk more than anything. Steps at home but not getting up and down them, one step to great room. Had previous strokes adn was here for rehab. Was on mainfloor prior to this due to these strokes. - Objective Pt wheeled to therapy in , seems frustrated with her condition. Has not walked more than standing to transfer with [facility] since she got home.Has night splints and AFOS at home but did not bring today, has wh walker at home but did not bring, emphasized need to do so. B ankle movement is minimal actively has trace DF B, trace PF B, and 1/3 inv /ev. PROM ankle to -5 DF B and hypertonic., Passive ev/inv/PF WFL. Knee aROM WFL, strength ext 3/5 adn flexion 3+. Hip AROM WFL, passively to neutral ext. strength 3+ adduction and flexion, 3 abd and ext. Sensation is diminished to gross light touch B LE mid thigh adn below. Swollen slightly B LE to touch. reflexes 3/3 patella R and 0/3 L, gastroc not tested but no clonus. Functional: sit unsupported easily, hard time scooting but can do so I. Pt is scared to move adn poor proprioception in legs needs cues to place for positioning and trasnfers. Will not let go of walker to get to stand to push off arm of chair or table without much cueing and still very scared. Needs Min A to stand from high chair and Mod A from low chair. Stands at wh walker mod I, obvious weakness in legs. Walks today 5 step, then 10 feet with VC and cga to Min A, very scared adn slow. Needs Min A to pivot walkerand cues to lift legs when pivotting. Stand to sit with Mod A and VC to use hand to lower weight slowly. Poor confidence adn lots of frustration. Unwilling to take hands off walker in standing for more than a brief second and only when cued, otherwise mechanical design engineer facilities. - Goals Goal 1:: Patient able to move sit to stand to sit without cues mod I. Goal Time Frame: 4-6 Weeks Goal 2:: Walk with wh walker 50 feet mod I consistently. Goal Time Frame: 4-6 Weeks Goal 3:: Pt I in appropriate HEP to minimize future problems Goal Time Frame: 4-6 Weeks Goal 4:: Pt roll in bed I Goal Time Frame: 4-6 Weeks - Rehabilitation Potential Physical Therapy Diagnosis: Weakness from cauda equina syndrome Rehabilitation Potential: Fair - Anticipated Interventions Patient/Client Instruction: Educate patient on: Condition, Plan of Care For the Purpose of:: To improve muscle performance and motor function, To increase tolerance to activity/condition/position, To improve ability of physical actions for home/community/work/leisure, To improve gait and locomotor functions Therapeutic Exercise to Include: Strength training, Balance training, Flexibilty training, Passive ROM, Active ROM For the Purpose of:: To improve muscle performance and motor function, To increase tolerance to activity/condition/position, To improve ability of physical actions for home/community/work/leisure, To improve gait and locomotor functions Thank you for the opportunity to evaluate your patient. For Medicare and Medicare HMO plans, please review the plan of care and approve it. It will need to be FAXED BACK to us at [phone] for Medicare purposes. For Medicare only, by signing this I certify the plan of care. Please let me know if there are questions or concerns regarding this plan of care. Physician Signature: Date:
--- NOTE | 2019-09-18 17:41 | HP.OTEVAL_ITS ---
Patient's Visit Information PAM SPENCER is a 74 year old F, referred to Occupational Therapy by Jovanni Steven MD, with a diagnosis of Debility; Cauda Equina Syndrome. Date of Evaluation: 09/18/19 Occupational Therapist: Zohra Porras, EPIFANIOR/L - Subjective Subjective: Pam, Lonnie', arrived with , Cal. Funk is s/p decompression related surgery of Surgery completed end May. HE noted that she has hematoma in spinal cord. She noted that. - multiple myloma. - blood thinner- 4x injection. - 9 weeks at [facility]- no therapy - ADLs Dressing: Underwear, Bra, Button shirt, Coat, Pants, Socks, Shoes Fasteners: Tie shoes, Buttons, Zippers, [place] Eating: Bring food to mouth, Use silverware, Cut food, Drink from glass Bathing: Handle washcloth & soap, Wash hair, Squeeze shampoo bottle Comments: walk-in, grab bars, shower chair, removable shower head. 75% Toileting: Manage clothing, Perineal care Grooming: educational psychology professor, Curling iron, Comb hair, Squeeze toothpaste on, [place] teeth Kitchen: Chop with knife, Peel fruits & vegetables, Open jars, Open bottle caps, Ziplock bags, Lift gallon of milk, Pour from pitcher, Take dish out of oven, Load/unload technical administrative assistant, Place dish in microwave Household: Vacuum, Sweep/mop, Laundry Miscellaneous: Write, Shuffle cards, Turn pages in book, Use computer keyboard, Drive Comments: Tonia [place] Comments: Noted concerns with continence. - 2 story home; 12 steps- upstairs; 5 stair - ramp; - Pain BLE 10 Pain Intensity Range: 10 - Rehabilitation Rehabilitation Potential: Good - Anticipated Interventions Anticipated Interventions: A/AAROM/PROM, Strengthening, Scar Care, Wound Care, Modalities, Orthoses, Joint Protection/Energy Conservation, Ergonomic Education, Dynamic Sitting Balance, Fine Motor Coord/Juan, Sensory Stimulation, Cognitive Skills, ADL Training, Education re Skin Care and Precautions, Caregiver Training, Home Program - Visit Plan Frequency: 5x /Week Duration: 6 Weeks TEXT: Thank you for the opportunity to evaluate your patient. For Medicare and Medicare HMO plans, please review the plan of care and approve it. It will need to be FAXED BACK to us at [phone] for Medicare purposes. Please let me know if there are questions or concerns regarding this plan of care. Physician Signature: Date:
--- NOTE | 2019-09-19 14:44 | HP.OTEVAL_ITS ---
Patient's Visit Information PAM SPENCER is a 74 year old F, referred to Occupational Therapy by Jovanni Steven MD, with a diagnosis of Debility; Cauda Equina Syndrome. Date of Evaluation: 09/18/19 Occupational Therapist: Zohra Porras, OTR/L - Subjective Subjective: Pam, 'Blessing', arrived with , Nils. She is s/p extensive laminectomy from L1-S1 s/p epidermal hematoma. Hematoma starting 06/29/19 which resulted in emergency surgery for decompression at the beginning of June. Cauda Equina was developed and she is experiencing further urinary retention. Blessing has extensive past medical history for multiple myeloma causing essential tremors, as well as has had previous CVAs with left sided weakness. Blessing spent about two months on TCU prior to being discharged home. Nils noted she is unable to take care of herself. He noted he is completing most of the transfers and that he is also helping with more of the self-care and dressing tasks in conjunction with her daughter, Silvana. Prior to this surgery noted she was (I) with all ADL/IADls and was running her own [place]. - ADLs Dressing: Underwear, Bra, Button shirt, Coat, Pants, Socks, Shoes Fasteners: Tie shoes, Buttons, Zippers, [place] Eating: Bring food to mouth, Use silverware, Cut food, Drink from glass Bathing: Handle washcloth & soap, Wash hair, Squeeze shampoo bottle Comments: walk-in, grab bars, shower chair, removable shower head. 75% Toileting: Manage clothing, Perineal care Grooming: regional commercial sales manager, Curling iron, Comb hair, Squeeze toothpaste on, [place] teeth Kitchen: Chop with knife, Peel fruits & vegetables, Open jars, Open bottle caps, Ziplock bags, Lift gallon of milk, Pour from pitcher, Take dish out of oven, Load/unload fast food delivery driver, Place dish in microwave Household: Vacuum, Sweep/mop, Laundry Miscellaneous: Write, Shuffle cards, Turn pages in book, Use computer keyboard, Drive Comments: [place] Comments: Noted concerns with continence. - 2 story home; 12 steps- upstairs; 5 stair - ramp; - Pain BLE 10 Pain Intensity Range: 10 - ROM Shoulder: WFL Elbow: WFL Forearm: WFL Wrist: WFL MP: WFL PIP: WFL DIP: WFL - Strength Shoulder: R 4/5, L 4/5 Elbow: R 4/5, L 4/5 Forearm: R 4/5, L 4/5 Production Floater: flexed R 45, L 35; ext R 43, L 32 Lateral Pinch: R 13, L 10 Tripod Pinch: R 10, L 6 Tip-to-Tip Pinch: R 10, L 8 - Sensation Kinesthesia: Abnormal - Right, Abnormal - Left Proprioception: Normal - Right, Normal - Left Sensation Comments: denies numbness or tingling. - Movement Ataxia: some ataxic movements of BUE Tremors: essential - Cognitive Skills Follows Directions: Yes Short Term Memory Impaired: Yes Cognitive Comments: Oriented to person, place, and month and year. MoCA: 05/29 increased cognitive deficits noted with increased visuospatial, executive functioning, problem solving, and memory recall deficits noted. - Attention Attention: Fair - Balance Static Sitting: G+ - Stroke Specific Quality of Life Total SS-QOL Score: 32 - Quick DASH-Disab of Arm,Shoulder& Hand Quick DASH Score: 40.9075 - Goals Goal:: [place] to increased BUE strength by 15 lbs to promote increased strength and endurance of UE 4/5 trials 80% of the time to promote skills needed for ADL/IADLs and transfers by d/c. Goal:: Blessing to be mod I to complete management of essential tremors with use of compensatory and adaptations 4/5 trials 80% of the time by d/c. Goal:: Blessing to be (I) to complete BUE dressing skills including working on fasteners 4/5 trials 80% of the time to promote (I) by end of 3 weeks. Goal:: Blessing to b able to complete trasnfer from w/c to standard commode for toileting tasks 4/5 trials 80% fo the time with use of grab bar and general cognitive and processing skills needed to promote increased (I) with ADL/IADls by end of 5 weeks. Goal:: Blessing to be mod A to complete LB dressing with a/e or tailor sit while maintaining spinal alignment 4/ 5trials 80% of the time by end of 5 weeks. Goal:: Pam to be able to complete 2-3x step seqeuncing tasks needed to compl ete self care tasks of basic oral hygiene, hair, general UB grooming and self - care 4/5 trials 80% of the time by end fo 5 weeks. Goal:: Pam to be mod I to complete daily HEP and self-care compensations and adaptation techniques 4/5 trials 80% of the time to promote returning to PLOF 4/5 trials 80% of the time by d/c. Goal:: Blessing to be min A for toilet transfer and hygiene 4/5 trials 80% of the time to promote (i) and ability to complete ADL/IADls by end of 3 weeks. Goal:: Blessing to be SBA to complete all UB ADls and otileting tasks to promote increased (I) 4/5 trials 80% of the time to promote increased ability to complete needed tasks to return to PLOF by end of 5 weeks. - Rehabilitation General Assessment: Pam Fleming' completed OT evaluation of this date of 09/18/19. She is s/p T11-S1 hemangioma due to what appeared to be result of epidermal hematoma resulting in surgical intervention laminectomy of T1-S1 with cauda equina syndrome resulting. She and Nils report she was independent in all ADl/IAdls three months ago around 06/29/19 prior to needing surgical intervention and since has struggled to complete basic self-care. Blessing warrants skills OT to promote strength, endurance, cognitive awareness to complete ADls tasks, as well as general participation and (I) for ADL/IADls by end of d/c to promote quality of life and being able to return to prior level of functioning. Rehabilitation Potential: Good - Anticipated Interventions Anticipated Interventions: A/AAROM/PROM, Strengthening, Scar Care, Wound Care, Modalities, Orthoses, Joint Protection/Energy Conservation, Ergonomic Education, Dynamic Sitting Balance, Fine Motor Coord/Juan, Sensory Stimulation, Cognitive Skills, ADL Training, Education re Skin Care and Precautions, Caregiver Training, Home Program - Visit Plan Frequency: 2x /Week Duration: 5 weeks General Plan: Blessing to complete skilled OT to promote strength, endurance, energ y conservation, cognitive awareness for ADls and selfcare, caregiver and patient training for ADl/IADls, and general (i) for ADl/IADls to promote returning to PLOF by d/c. TEXT: Thank you for the opportunity to evaluate your patient. For Medicare and Medicare HMO plans, please review the plan of care and approve it. It will need to be FAXED BACK to us at [phone] for Medicare purposes. Please let me know if there are questions or concerns regarding this plan of care. Physician Signature: Date:
--- NOTE | 2019-09-22 12:21 | HP.SP.DC_ITS ---
ST Discharge Summary - Discharged: Discharge: The Patient is a pleasant 74 year old female who attended 1 skilled speech-language intervention session 09/18/2019 due to persistent cognitive based deficits following a recent (02/03/2019) acute right middle cerebrovascular accident, with multiple prior / recent cerebrovascular accident(s), prior meningioma?s, and iatrogenic factors (currently undergoing systemic chemotherapy). The Patient previously participated in outpatient speech language intervention from 04/26/2019 to 06/07/2019 targeting implementation of internal and external compensatory cognitive processing compensatory strategies, with considerations for Time Pressure Management (TPM) training, Mgoy-Svfo-Qb-Review (GPDR), Self-talk procedures, and organizational and elaboration techniques (namely PQRST); implementation of internal and external visuospatial compensatory strategies, to include systemic and archivist scanning therapy with use of principles for visual scanning (Locus of the stimulus, anchoring, pacing, density, information load, performance prediction and feedback), with initial successes complicated by a reported repeat right middle cerebral artery cerebrovascular attack exacerbating her right hemisphere based symptomology, and later requiring prolonged [place] [facility] admission due to complications associated with right caudal equina syndrome following a 06/28/2019 facet joint injection resulting in epidural hematoma. Following the initial evaluation on 09/18/2019, the Patients contacted this location, as the Patient will transition to home health services vs. outpatient services due to the extent of her impairments, and subsequently cancelled all upcoming appointments. We will discharge her from the skilled speech-language pathology outpatient caseload at this time, though would gladly re-initiate intervention as needed moving forward.
== END 2019-09-18 19:00 | disposition home or self-care (01) ==
LOC: SP 11:08
PROVIDERS: Family Provider Family Medicine; PCP Family Medicine; Referring Provider Family Medicine Geriatric Medicine; Visit Provider Family Medicine Geriatric Medicine
DX: G83.4 Cauda equina syndrome (principal); R53.81 Other malaise; R41.841 Cognitive communication deficit
CPT/HCPCS: 92523; 97163; 97166

== ENCOUNTER 2019-09-22 08:30 | Outpatient (RCR) | payer MEDICARE, OTHER, SELFPAY ==
[2019-09-08 11:12] VITALS: BMI 23.9
[2019-09-15 08:49] VITALS: BP 99/53; PULSE 91; RESP 16; TEMP 36.3; BMI 23.9
--- NOTE | 2019-09-15 10:15 | PCM.WC.HP ---
(1) Pressure ulcer of right buttock, stage 3 Status: Chronic Current Visit: Yes Code(s): L89.313 - Pressure ulcer of right buttock, stage 3 (2) Urinary incontinence Status: Chronic Current Visit: No Code(s): R32 - Unspecified urinary incontinence (3) Debility Status: Acute Current Visit: No Code(s): R53.81 - Other malaise (4) Myelodysplasia (myelodysplastic syndrome) Status: Chronic Current Visit: No Code(s): D46.9 - Myelodysplastic syndrome, unspecified (5) Myeloma Status: Chronic Current Visit: No Qualifiers: Code(s): C90.00 - Multiple myeloma not having achieved remission History of Present Illness Date of Service: 09/15/19 Chief Complaint: R buttock pressure ulcer History of Wound: Patient is a pleasant 74-year-old female who presents to the wound center today 09/15/2019 for evaluation and treatment of a right buttock pressure ulcer. She presents today with her . Pressure ulcer has been present for approximately 5 weeks now. On 09/13/2019, patient had an appointment with her primary care provider, Dr. Wilson, at which time she expressed concern for infection. At the time of that appointment, patient was having foul-smelling drainage from her wound, and was applying OptiForm to wound at home. At her appointment with Dr. Wilson on 09/13/2019, wound cultures were collected and patient was empirically started on ciprofloxacin 500 mg twice daily x10 days. Her dressings were switched to Allevyn, and patient was instructed to change every other day or daily if needed due to soiling. Patient and report that she is no longer having foul-smelling drainage from her wound. The patient denies any fever, chills, nausea, vomiting, or diarrhea. Denies any signs of infection, including increasing pain, redness, swelling, or foul-smelling/purulent drainage from affected area. Patient has a PMH significant for stroke, multiple myeloma (currently in remission), myelodysplastic syndrome, chronic urinary incontinence, and debility. She is primarily limited to using a wheelchair for transportation. She does have a walker, but is only able to take a few steps or stand for a few seconds when using this. She does not drive, and is primarily homebound. Past Medical History Past Medical History: Chronic Problems (Last Reviewed 09/06/19 @ 09:58 by Anika Choudhary) Stroke (Chronic) HLD (hyperlipidemia) (Chronic) Anxiety and depression (Chronic) Essential tremor (Chronic) Myelodysplasia (myelodysplastic syndrome) (Chronic) Low back pain (Chronic) Vascular dementia (Chronic) Hypertension (Chronic) Neuropathic pain (Chronic) Left hemiparesis (Chronic) Depression (Chronic) Anxiety (Chronic) Pressure ulcer of right buttock, stage 3 (Chronic) Urinary incontinence (Chronic) Cerebrovascular disease (Chronic) Macrocytosis (Chronic) MDS (myelodysplastic syndrome), low grade (Chronic) Myeloma (Chronic) Lung nodule (Chronic) Left upper lobe, May 2018 Liver lesion, right lobe (Chronic) Negative biopsy for malignancy June 29, 2018 Anemia (Chronic) Tremor (Chronic) Cognitive dysfunction (Chronic) Meningioma (Chronic) Surgical History: cholecystectomy, hysterectomy, tonsillectomy, - - Gamma knife meningioma. Allergies/Adverse Reactions: Allergies morphine Adverse Reaction (Severe, Verified 09/15/19 09:04) Nausea Home Medications: Ambulatory Orders Medication Instructions Recorded Enoxaparin [Lovenox] 80 mg SUBCUT Q12@0600,1800 05/31/19 Acyclovir [Zovirax] 400 mg PO BID 06/28/19 Acetaminophen 1,000 mg PO Q8H 07/12/19 Atenolol 25 mg PO DAILY 07/12/19 Calcium Carbonate [Tums] 500 mg PO BIDCM tab 09/07/19 Dexamethasone [Decadron] 40 mg PO We@0800 #20 tab 09/07/19 Escitalopram Oxalate [Lexapro] 20 mg PO DAILY #30 tab 09/07/19 Gabapentin [Neurontin] 600 mg PO BIDCM PRN #60 tab 09/07/19 Pantoprazole Sodium [Protonix] 40 mg PO DAILY #30 tab 09/07/19 Tamsulosin HCl [Flomax] 0.4 mg PO DAILY@1730 #30 cap 09/07/19 buPROPion SR [Wellbutrin SR (150mg 150 mg PO BID #60 tablet.sa 09/07/19 tablets)] Atorvastatin Calcium [Lipitor] 80 mg PO QHS #30 tab 09/10/19 Atorvastatin Calcium 80 mg PO DAILY 09/15/19 Cholecalciferol (Vitamin D3) 1 cap DAILY 09/15/19 [Vitamin D3] - Family History Maternal Family History: Family History (Last Reviewed 09/06/19 @ 09:58 by Anika Choudhary) Mother Breast cancer Sister Breast cancer Aunt Breast cancer Daughter History of malignant melanoma Father Brain cancer Brother Lung cancer Cancer - Mother with history of breast cancer. Paternal Family History: Family History (Last Reviewed 09/06/19 @ 09:58 by Anika Choudhary) Mother Breast cancer Sister Breast cancer Aunt Breast cancer Daughter History of malignant melanoma Father Brain cancer Brother Lung cancer Cancer - Father with history of brain cancer. Smoking Status: Never smoker Review of Systems Constitutional: Denies: Anorexia, Chills, Fever, Weight Change Eyes: Denies: Pain, Vision Change HEENT: Denies: Difficulty Hearing, Difficulty Swallowing Cardiovascular: Denies: Chest Pain, Edema, Palpitations Respiratory: Denies: Cough, Shortness of Breath, Wheezing Gastrointestinal: Denies: Abdominal Pain, Diarrhea, Nausea, Vomiting Genitourinary: Reports: Incontinence - chronic Musculoskeletal: Reports: - - chronic back pain; generalized weakness Neurological: Reports: - - generalized weakness Endocrine: Denies: Heat/ Cold Intolerance, Polydipsia, Polyuria Hematologic/ Lymphatic: Reports: Anemia, Easy Bruising, Easy Bleeding - on xarelto - Physical Exam Vital Signs Temp Pulse Resp BP 97.3 F L 91 16 99/53 L 09/15/19 08:49 09/15/19 08:49 09/15/19 08:49 09/15/19 08:49 General: Alert, Cooperative, No apparent distress HEENT: Atraumatic, EOMI, Normocephalic Oral: Moist Mucosa Neck: Supple, No JVD, Trachea Midline Lungs: Clear to auscultation, Normal air movement, No rhonchi, No wheeze, No rales Cardiovascular: Regular rate, Regular Rhythm Abdomen: Bowel Sounds Present, Soft, Non Tender, Non-Distended Extremities: No clubbing, No cyanosis, No edema, Capillary Refill Less than 3 Seconds, Peripheral Pulses Normal Skin: Ulcer/ Wound - Right buttock ulcer cluster, stage III. Moderate amount of slough present, no drainage. No warmth or tenderness to palpation. No surrounding erythema or maceration. Does not probe to bone. Wound Measurements and Assessment WC - Nurse 1 - General Ulcer Measurement Start: 09/15/19 08:42 Freq: Status: Active Protocol: Activity Type Activity Date Activity User E-Sign Co-Sign Detail Recorded Client Recorded Date Recorded By Document 09/15/19 08:49 [facility] [id number] 09/15/19 09:02 [facility] 09/15/19 08:49 Wound Center Nurse 1 [Ulcer Assessment] #1- R BUTTOCK -Combined with other wound No -Current Size (cm) - Length 1.9 -Current Size (cm) - Width 1.6 -Current Size (cm) - Depth 0.1 -Total Square Cm 3.04 -Date of Last Picture (Recall this 09/15/19 field) -Photo Taken Yes -Epithelialization None Present -Tunneling No -Undermining/Tunneling No -Circular Undermining No -Classification - Thickness Full Thickness without Exposed Support Structure -Exudate Amt Medium -Exudate Type Serosanguineous -Wound Margin Distinct, Outline Attached -Granulation Amt None Present (0 %) -Granulation Quality N/A -Slough/Fibrin Yes -Necrosis Amt Large (67-100%) -Necrotic Tissue Type Adherent Slough -Texture (Kassy-wound Skin Appearance) Assessed, Scarring -Moisture (Kassy-wound Skin Appearance Assessed ) -Color (Kassy-wound Skin Appearance) Assessed, Erythema -Temperature (Kassy-wound Skin No Abnormality Appearance) (Pt Warm) -Tenderness on Palpation (Kassy-wound No Skin Appearance) -Ulcer Cleansing Rinsed/ Irrigated with Saline -Foul Odor after Cleansing No -Anesthetic Used 5% Lidocaine Gel WC - Nurse 2 - General Ulcer CM Notes Start: 09/15/19 08:42 Freq: Status: Active Protocol: Activity Type Activity Date Activity User E-Sign Co-Sign Detail Recorded Client Recorded Date Recorded By Document 09/15/19 09:20 [id number] 09/15/19 09:27 DV 09/15/19 09:20 Wound Center Nurse 2 [Procedure/Treatment] -Time 09:20 -Correct Patient Yes -Correct Side, Site, Position Yes -Correct Procedure Yes -Procedure Performed Yes -Type of Procedure Debridement -Clinical Debridement Subcutaneous -Post Debridement Size (cm) - Length 3.2 -Post Debridement Size (cm) - Width 2.2 -Post Debridement Size (cm) - Depth 0.2 -Total Square Cm 7.04 -Wound/Ulcer Outcome Not Healed -Ulcer Cleansing Rinsed/ Irrigated with Saline -Foul Odor after Cleansing No -Bioengineered Tissue No -Bleeding Controlled with Pressure -Offloading No -Treatment Response Procedure Tolerated Well [See Physician Procedure note for Specifics] Pain Scale: 0-10 Numeric [Pain] -Is Patient Pain Free? Yes Musculoskeletal: No Muscle Wasting Neurological: Unsteady Gait Psych/Mental Status: Normal Affect, Appropriate Debridement Note Post-Debridement Measurements/Treatment WC - Nurse 2 - General Ulcer CM Notes Start: 09/15/19 08:42 Freq: Status: Active Protocol: Activity Type Activity Date Activity User E-Sign Co-Sign Detail Recorded Client Recorded Date Recorded By Document 09/15/19 09:20 DV [id number] 09/15/19 09:27 DV 09/15/19 09:20 Wound Center Nurse 2 #1- R BUTTOCK -Time 09:20 -Correct Patient Yes -Correct Side, Site, Position Yes -Correct Procedure Yes -Procedure Performed Yes -Type of Procedure Debridement -Clinical Debridement Subcutaneous -Post Debridement Size (cm) - Length 3.2 -Post Debridement Size (cm) - Width 2.2 -Post Debridement Size (cm) - Depth 0.2 -Total Square Cm 7.04 -Wound/Ulcer Outcome Not Healed -Ulcer Cleansing Rinsed/ Irrigated with Saline -Foul Odor after Cleansing No -Bioengineered Tissue No -Bleeding Controlled with Pressure -Offloading No -Treatment Response Procedure Tolerated Well Pain Scale: 0-10 Numeric Is Patient Pain Free? Yes Wound debrided: Right buttock ulcer Laterality: Right Wound Grade/Stage: Stage 3 Type of Debridement: Excisional debridement Anesthesia Used: 5% Lidocaine Gel Depth: in the subcutaneous layer Percentage of wound debrided: 100 Instrument Used: 5mm curette Tissue Removed: Slough and devitalized tissue Severity: Fat Layer Exposed Amount of bleeding with debridement: Moderate Bleeding Controlled with: Compression and gauze Patient tolerated procedure well Assessment/Plan Active Problems (Last Reviewed 09/06/19 @ 09:58 by Anika Choudhary) Pressure ulcer of right buttock, stage 3 (Chronic) Assessment: Pressure ulcer of right buttock, stage III Plan: Debridement performed today in clinic. Hydrogel and gauze applied. At home wound-care instructions: Prescription for Santyl given. Apply as directed to pressure ulcers, and cover with gauze dressing. Change dressing daily, or as needed due to contamination/soiling. Will discuss with patient's PCP, Dr. Wilson, the need for home health care. Off-loading: Avoid pressure on right buttock. Rotate every 1-2 hours to avoid new pressure ulcers from developing. Prescription given for ROHO cushion. Diet: Patient encouraged to increase protein intake to promote wound healing. Labs/cultures/imaging: Cultures ordered and collected by Dr. Wilson on 09/13/2019?results are still pending. Blood work from 08/2019 reviewed in EMR. Follow-up: Return to clinic in 1 week for re-evaluation. Return sooner or report to the emergency room should symptoms worsen, or new symptoms arise. Call the [facility] with any questions. Code Visit Office Visits / Consults: [id number] OV L4 Est [id number]: [id number] Candace subq tissue 20 sq cm/<
[2019-09-22 08:18] VITALS: BP 129/58; PULSE 108; RESP 22; TEMP 36.1; BMI 23.9
--- NOTE | 2019-09-22 10:20 | PN.PCM_ITS ---
(1) Pressure ulcer of right buttock, stage 3 Status: Chronic Current Visit: Yes Code(s): L89.313 - Pressure ulcer of right buttock, stage 3 (2) Urinary incontinence Status: Chronic Current Visit: No Code(s): R32 - Unspecified urinary incontinence (3) Debility Status: Acute Current Visit: No Code(s): R53.81 - Other malaise (4) Myelodysplasia (myelodysplastic syndrome) Status: Chronic Current Visit: No Code(s): D46.9 - Myelodysplastic syndrome, unspecified (5) Myeloma Status: Chronic Current Visit: No Qualifiers: Code(s): C90.00 - Multiple myeloma not having achieved remission Type of Wound Date of Service: 09/22/19 Chief Complaint: R buttock pressure ulcer History of Wound: Patient is a pleasant 74-year-old female who presents to the wound center 09/15/2019 for evaluation and treatment of a right buttock pressure ulcer. She presents with her . Pressure ulcer had been present for approximately 5 weeks. On 09/13/2019, patient had an appointment with her primary care provider, Dr. Wilson, at which time she expressed concern for infection. At the time of that appointment, patient was having foul-smelling drainage from her wound, and was applying OptiForm to wound at home. At her appointment with Dr. Wilson on 09/13/2019, wound cultures were collected and patient was empirically started on ciprofloxacin 500 mg twice daily x10 days. Her dressings were switched to Allevyn, and patient was instructed to change every other day or daily if needed due to soiling. Patient and report that she is no longer having foul-smelling drainage from her wound. The patient denies any fever, chills, nausea, vomiting, or diarrhea. Denies any signs of infection, including increasing pain, redness, swelling, or foul- smelling/purulent drainage from affected area. Patient has a PMH significant f or stroke, multiple myeloma (currently in remission), myelodysplastic syndrome, chronic urinary incontinence, and debility. She is primarily limited to using a wheelchair for transportation. She has post-stroke partial hemiplegia. She does have a walker, but is only able to take a few steps or stand for a few seconds when using this. She does not drive, and is primarily homebound. Progress of Wound: Improvement in size and appearance of right buttock pressure ulcers. Patient and have been given plans with use of Santyl and dressing changes. They now have home health coming out 1-2 times per week to assist with dressing changes. Patient is still taking ciprofloxacin as prescribed by Dr. Wilson. Based on patient's wound cultures, which were positive for Hafnia alvei, Klebsiella pneumoniae, and Staphylococcus warneri, we will discontinue ciprofloxacin and start Bactrim. The patient denies any fever, chills, nausea, vomiting, or bowel changes. Denies any increasing pain, redness, swelling, or purulent/foul-smelling drainage from affected area. - Physical Exam Vital Signs Temp Pulse Resp BP 97 F L 108 H 22 H 129/58 H 09/22/19 08:18 09/22/19 08:18 09/22/19 08:18 09/22/19 08:18 General: Alert, Oriented x3, Cooperative, No apparent distress HEENT: Atraumatic, Normocephalic Oral: Moist Mucosa Neck: Supple, No JVD, Trachea Midline Lungs: Normal air movement Cardiovascular: Regular rate Extremities: No clubbing, No cyanosis, No edema, Capillary Refill Less than 3 Seconds, Peripheral Pulses Normal Skin: Ulcer/ Wound - Right buttock ulcer, stage III. The smaller of the 2 ulcers in the right buttock cluster has healed, and now only one ulcer remains. Small amount of slough present, no drainage. No warmth or tenderness to palpation. No surrounding erythema or maceration. Does not probe to bone. Wound Measurements and Assessment WC - Nurse 1 - General Ulcer Measurement Start: 09/15/19 08:42 Freq: Status: Active Protocol: Activity Type Activity Date Activity User E-Sign Co-Sign Detail Recorded Client Recorded Date Recorded By Document 09/22/19 08:18 DL [id number] 09/22/19 08:20 DL 09/22/19 08:18 Wound Center Nurse 1 [Ulcer Assessment] #1- R BUTTOCK -Current Size (cm) - Length 1.7 -Current Size (cm) - Width 1 -Current Size (cm) - Depth 0.2 -Total Square Cm 1.7 -Photo Taken No -Exudate Amt Small -Exudate Type Serosanguineous -Wound Margin Distinct, Outline Attached -Granulation Amt None Present (0 %) -Necrosis Amt Large (67-100%) -Necrotic Tissue Type Adherent Slough -Structure Exposed N/A -Texture (Kassy-wound Skin Appearance) Scarring -Moisture (Kassy-wound Skin Appearance No Abnormality ) -Color (Kassy-wound Skin Appearance) No Abnormality -Temperature (Kassy-wound Skin No Abnormality Appearance) (Pt Warm) -Ulcer Cleansing Wound Cleanser -Foul Odor after Cleansing No -Anesthetic Used 5% Lidocaine Gel - Nurse 2 - General Ulcer CM Notes Start: 09/15/19 08:42 Freq: Status: Active Protocol: Activity Type Activity Date Activity User E-Sign Co-Sign Detail Recorded Client Recorded Date Recorded By Document 09/22/19 08:44 DV [id number] 09/22/19 09:02 DV 09/22/19 08:44 Wound Center Nurse 2 [Procedure/Treatment] -Time 08:44 -Correct Patient Yes -Correct Side, Site, Position Yes -Correct Procedure Yes -Procedure Performed Yes -Type of Procedure Debridement -Clinical Debridement Subcutaneous -Post Debridement Size (cm) - Length 1.5 -Post Debridement Size (cm) - Width 1.4 -Post Debridement Size (cm) - Depth 0.3 -Total Square Cm 2.10 -Wound/Ulcer Outcome Not Healed -Ulcer Cleansing Rinsed/ Irrigated with Saline -Foul Odor after Cleansing No -Bioengineered Tissue No -Bleeding Controlled with Pressure -Offloading No -Treatment Response Procedure Tolerated Well [See Physician Procedure note for Specifics] Pain Scale: 0-10 Numeric [Pain] -Is Patient Pain Free? Yes Neurological: Unsteady Gait Psych/Mental Status: Normal Affect, Appropriate Debridement Note Post-Debridement Measurements/Treatment - Nurse 2 - General Ulcer CM Notes Start: 09/15/19 08:42 Freq: Status: Active Protocol: Activity Type Activity Date Activity User E-Sign Co-Sign Detail Recorded Client Recorded Date Recorded By Document 09/15/19 09:20 DV [id number] 09/15/19 09:27 DV Document 09/22/19 08:44 DV [id number] 09/22/19 09:02 DV 09/15/19 09/22/19 09:20 08:44 Wound Center Nurse 2 #1- R BUTTOCK -Time 09:20 08:44 -Correct Patient Yes Yes -Correct Side, Site, Position Yes Yes -Correct Procedure Yes Yes -Procedure Performed Yes Yes -Type of Procedure Debridement Debridement -Clinical Debridement Subcutaneous Subcutaneous -Post Debridement Size (cm) - Length 3.2 1.5 -Post Debridement Size (cm) - Width 2.2 1.4 -Post Debridement Size (cm) - Depth 0.2 0.3 -Total Square Cm 7.04 2.10 -Wound/Ulcer Outcome Not Healed Not Healed -Ulcer Cleansing Rinsed/ Rinsed/ Irrigated with Irrigated with Saline Saline -Foul Odor after Cleansing No No -Bioengineered Tissue No No -Bleeding Controlled with Pressure Pressure -Offloading No No -Treatment Response Procedure Procedure Tolerated Well Tolerated Well Pain Scale: 0-10 Numeric Is Patient Pain Free? Yes Yes Wound debrided: Right buttock ulcer Laterality: Right Wound Grade/Stage: Stage III Type of Debridement: Excisional debridement Anesthesia Used: 5% Lidocaine Gel Depth: in the subcutaneous layer Percentage of wound debrided: 100 Instrument Used: 7mm curette Tissue Removed: Slough and devitalized tissue Severity: Fat Layer Exposed Amount of bleeding with debridement: Mild Bleeding Controlled with: Compression and gauze Patient tolerated procedure well Assessment/Plan Active Problems (Last Reviewed 09/06/19 @ 09:58 by Anika Choudhary) Pressure ulcer of right buttock, stage 3 (Chronic) Assessment: Pressure ulcer of right buttock, stage III Plan: Debridement performed today in clinic. Hydrogel and gauze applied. At home wound-care instructions: Continue daily dressing changes with Santyl. Apply as directed to pressure ulcer, and cover with gauze dressing. Change dressing daily, or as needed due to contamination/soiling. Home health care may assist with dressing changes when they are present in home. Off-loading: Avoid pressure on right buttock. Rotate every 1-2 hours to avoid new pressure ulcers from developing. Prescription given for ROHO cushion--not yet filled. Diet: Patient encouraged to increase protein intake to promote wound healing. Labs/cultures/imaging: Cultures ordered and collected by Dr. Wilson on 09/13/2019? reviewed and discussed with patient and ; positive for Hafnia alvei, Klebsiella pneumoniae, and Staphylococcus warneri. Stop ciprofloxacin and start Bactrim 800 mg / 160 mg 1 tablet p.o. every 12 hours x10 days. Blood work from 08/2019 reviewed in EMR. Follow-up: Return to clinic in 1 week for re- evaluation. Return sooner or report to the emergency room should symptoms worsen, or new symptoms arise. Call the [facility] with any questions. Note: [employer] speech recognition tracer powder blender software was used to create portions of this document. Sound-alike and misspelled words, as well as other tracer powder blender errors may be contained in the documentation. Code Visit 111xxx-113xx: [id number] Candace subq tissue 20 sq cm/<
== END 2019-09-29 23:59 ==
LOC: WC 08:30
PROVIDERS: PCP Family Medicine; Visit Provider Nurse Practitioner Family
DX: L89.313 Pressure ulcer of right buttock, stage 3 (principal); R32 Unspecified urinary incontinence; D46.9 Myelodysplastic syndrome, unspecified; C90.00 Multiple myeloma not having achieved remission; E78.5 Hyperlipidemia, unspecified; I10 Essential (primary) hypertension; G25.0 Essential tremor; Z79.899 Other long term (current) drug therapy; Z79.01 Long term (current) use of anticoagulants; F41.9 Anxiety disorder, unspecified; F32.9 Major depressive disorder, single episode, unspecified
CPT/HCPCS: 11042; 99213; G0463

== ENCOUNTER 2019-09-24 14:45 | Inpatient (IN) | payer MEDICARE, OTHER, SELFPAY ==
[2019-09-24 14:47] VITALS: BP 179/120; PULSE 98; RESP 16; TEMP 37.4; O2SAT 96; BMI 23.9
--- NOTE | 2019-09-24 15:14 | CT_ITS ---
STUDY: CT BRAIN WITHOUT CONTRAST REASON FOR EXAM: Female, 74 years old. Confusion x few days, weakness, unable to stand. Hx brain menigioma, CVA, multiple myeloma (in remission). RADIATION DOSAGE (If Supplied By Facility): CTDIvol = ( 44.99 ) mGy, DLP = ( 796.11 ) mGycm TECHNIQUE: Transaxial CT imaging of the brain was performed without administration of intravenous contrast material. Individualized dose optimization techniques were used for this CT. COMPARISON: 20 May 2019, and January 2019 MRI FINDINGS: Normal soft tissue structures. Normal calvarium. There is mild cerebral atrophy with widening of the extra-axial spaces and ventricular dilatation. There are areas of decreased attenuation within the white matter tracts of the supratentorial brain, consistent with microvascular disease changes. Normal basal ganglia and thalami. Normal brainstem. Normal cerebellum. Stable hyperdense left posterior parafalcine meningioma is present and stable compared to January 2019. There is no intracranial hemorrhage. There are no findings of an acute ischemic infarction. Normal visualized paranasal sinuses. CT/Brain/Head without Contrast IMPRESSION: No evidence of acute intracranial bleed or ischemia. Stable meningioma as above. Electronically Signed: Byron Deluna DO at 17:01 EST , Service support ,
--- NOTE | 2019-09-24 15:15 | EKG12_ITS ---
Test Reason : Blood Pressure : / mmHG Vent. Rate : 110 BPM Atrial Rate : 110 BPM P-R Int : 130 ms QRS Dur : 076 ms QT Int : 332 ms P-R-T Axes : 020 022 057 degrees QTc Int : 449 ms Sinus tachycardia Otherwise normal ECG Confirmed by JAMIA GARNICA, KAI ([id number]), photograph editor TIMMY VALENZUELA ([id number]) on 09/27/2019 1:36:12 PM Referred By: DEVON Confirmed By:KAI BLANDON MD
--- NOTE | 2019-09-24 15:16 | RAD_ITS ---
STUDY: X-RAY CHEST REASON FOR EXAM: Female, 74 years old. CONFUSION STARTED FEW DAYS AGO. WEAKNESS PROGRESSIVELY WORSE UNABLE TO STAND. MULTIPLE MYLOMA. BELLE LEGS ACHY, short of breath TECHNIQUE: PA and lateral views of the chest. COMPARISON: 20 May 2019 FINDINGS: Chronic interstitial markings are noted with no evidence of distinct focal consolidation. There is no demonstrated pleural abnormality. Normal size heart. Normal mediastinum and shashi. Normal visualized pulmonary arteries. There is atherosclerotic calcification of the aortic arch with tortuosity. Normal visualized thoracic spine. Normal visualized ribs, clavicles, and shoulders. There is no demonstrated abnormality of the visualized soft tissue structures of the upper abdomen. RAD/Chest PA and Lateral IMPRESSION: Chronic interstitial markings with no distinct focal consolidation. Electronically Signed: Byron Deluna DO at 16:57 EST , Service support ,
--- NOTE | 2019-09-24 15:17 | CT_ITS ---
STUDY: CT LUMBAR SPINE WITH CONTRAST REASON FOR EXAM: Female, 74 years old. Confusion x few days, weakness, unable to stand. Hx brain menigioma, CVA, multiple myeloma (in remission). Had epidural injections 6 weeks ago with hematoma. RADIATION DOSAGE (If Supplied By Facility): CTDIvol = ( 14.22 ) mGy, DLP = ( 420.35 ) mGycm TECHNIQUE: The patient was scanned in a multi detector CT scanner. High resolution transaxial imaging was performed following the intravenous administration of IV 75mL Isovue-370. Images were obtained from lower thoracic to sacrum. Sagittal and coronal images were reconstructed. Individualized dose optimization techniques were used for this CT. COMPARISON: None FINDINGS: Normal lumbar lordosis. There is no substantial scoliosis. Demineralized vertebrae of the lumbar spine. L1-2: Endplate degenerative changes with mild broad-based disc bulge without associated spinal canal narrowing or foraminal narrowing. L2-3: Decreased disc space with endplate degenerative changes and small disc osteophyte complex. Posterior laminectomy changes are present. No evidence of significant spinal canal narrowing or foraminal narrowing. L3-4: Mild disc space loss and broad-based disc bulge with eccentric disc protrusion likely causing moderate nerve root abutment at the left foramen, otherwise no evidence of significant spinal canal narrowing. Posterior laminectomy changes are present. L4-5: Relatively preserved disc space with broad-based disc bulge without associated spinal canal narrowing or foraminal narrowing. Posterior laminectomy changes are present. L5-S1: Relatively preserved disc space with minimal degenerative disc bulge without associated spinal canal narrowing or foraminal narrowing. Posterior laminectomy changes are present. Normal visualized paraspinous soft tissue structures. CT/Spine Lumbar WITH Contrast IMPRESSION: 1. Degenerative changes as above with left paracentral foraminal disc bulge at L3-4 resulting in moderate foraminal narrowing, clinically correlate for exiting left L3 radiculopathy. Otherwise no evidence of acute osseous process. 2. L1-S1 posterior laminectomy changes with no evidence of large fluid collection. Electronically Signed: Byron Deluna DO at 17:09 EST , Service support ,
--- NOTE | 2019-09-24 15:20 | ED.VIS.GEN ---
History of Present Illness Chief Complaint: Confusion Informant: Patient, Family Onset: Weeks Context: Gradual Onset Narrative: Patient was discharged from [facility] ago after a prolonged hospital and rehab stay. On June 29 she had a spinal injection for pain and developed an epidural hematoma secondary to her use of Lovenox. Patient was [facility] to [facility] where she underwent surgery. With rehab following her surgery she was to the point where she was able to ambulate with a walker. She was discharged from [facility] 2 weeks ago to home with her . Since that time she has had a progressive decline. Family states her legs are increasing in weakness again and she has now unable to support her own weight. They have noticed increased confusion as well. Patient denies URI symptoms. She denies pain currently. She does have skin sensitivity over her lower legs with any palpation. She is currently going to the wound center for a pressure ulcer. - Past Medical History (1) Pressure ulcer of right buttock, stage 3 Status: Chronic (2) Anxiety and depression Status: Chronic (3) Cerebrovascular disease Status: Chronic (4) Cognitive dysfunction Status: Chronic (5) Depression Status: Chronic (6) Essential tremor Status: Chronic (7) HLD (hyperlipidemia) Status: Chronic (8) Hypertension Status: Chronic (9) MDS (myelodysplastic syndrome), low grade Status: Chronic (10) Meningioma Status: Chronic (11) Myeloma Status: Chronic (12) Neuropathic pain Status: Chronic (13) Stroke Status: Chronic (14) Tremor Status: Chronic (15) Vascular dementia Status: Chronic Past Medical History - Allergies and Home Meds Allergies/Adverse Reactions: Allergies morphine Adverse Reaction (Severe, Verified 09/24/19 14:47) Nausea Primary Care Physician: Augusta Wilson DO [Primary Care Provider] - Prior records reviewed: Yes Surgical History: cholecystectomy, hysterectomy, tonsillectomy, - - Gamma knife meningioma. Lives: Spouse/ Significant Other Smoking Status: Never smoker - Family History Maternal Family History: Family History (Last Reviewed 09/06/19 @ 09:58 by Anika Choudhary) Mother Breast cancer Sister Breast cancer Aunt Breast cancer Daughter History of malignant melanoma Father Brain cancer Brother Lung cancer Family History: Reports: Cancer - Mother with history of breast cancer. Paternal Family History: Family History (Last Reviewed 09/06/19 @ 09:58 by Anika Arney) Mother Breast cancer Sister Breast cancer Aunt Breast cancer Daughter History of malignant melanoma Father Brain cancer Brother Lung cancer Family History: Reports: Cancer - Father with history of brain cancer. Review of Systems General: Denies: Chills, Fever Eyes: Denies: Visual changes - bilaterally ENT: Denies: Bilateral ear pain, Sore throat Cardiovascular: Denies: Chest pain, Palpitations Respiratory: Denies: Dyspnea, Cough, Sputum Gastrointestinal: Denies: Abdominal pain, Nausea, Vomiting, Diarrhea Genitourinary: Denies: Dysuria Musculoskeletal: Reports: Extremity Pain. Denies: Back pain Skin: Reports: Wounds Neurological: Reports: Weakness. Denies: Headache Allergy: Denies: Uticaria Physical Exam Vital Signs/Narrative: Vital Signs Temp Pulse Resp BP Pulse Ox 09/24/19 14:47 99.4 F H 98 16 179/120 H 96 Inital Vital Signs reviewed: Yes General: Well nourished, Well developed Head: Normocephalic Eyes: Perrl, EOMI ENT: Moist mucous membranes, TM's clear Neck: Supple Cardiovascular: Regular rate, Regular rhythm Respiratory: No distress, CTA bilaterally Abdomen: Soft, Nontender Extremities: - - Mild tenderness outpatient of the lower legs. Minimal erythema noted. Strong distal pulses. Skin: - - 1.5 cm diameter round shallow pressure ulcer on the medial right buttock. No surrounding cellulitis. No drainage or foul odor. Neurological: Alert, Oriented x3, - - Lower extremity weakness. Fine tremor noted in the upper extremities. Psychological: Normal affect Diagnostic/Tx/Re-eval Impressions Brain CT 09/24/19 15:14 IMPRESSION: No evidence of acute intracranial bleed or ischemia. Stable meningioma as above. Electronically Signed: Byron Deluna DO at 17:01 EST , Service support , Chest X-Ray 09/24/19 15:16 IMPRESSION: Chronic interstitial markings with no distinct focal consolidation. Electronically Signed: Byron Deluna DO at 16:57 EST , Service support , Lumbar Spine CT 09/24/19 15:17 IMPRESSION: 1. Degenerative changes as above with left paracentral foraminal disc bulge at L3-4 resulting in moderate foraminal narrowing, clinically correlate for exiting left L3 radiculopathy. Otherwise no evidence of acute osseous process. 2. L1-S1 posterior laminectomy changes with no evidence of large fluid collection. Electronically Signed: Byron Deluna, DO at 17:09 EST , Service support , 09/24/19 15:14 Brain/Head without Contrast [CT] Stat 09/24/19 15:16 Chest PA and Lateral [RAD] Stat 09/24/19 15:17 CT Lumbar [Spine Lumbar WITH Contrast] [CT] Stat Laboratory Results 09/24/19 09/24/19 09/24/19 15:30 15:30 15:30 WBC 12.8 H RBC 3.55 L Hgb 12.1 Hct 37.1 MCV 104.5 H MCH 34.1 H MCHC 32.6 RDW Std Deviation 55.6 H RDW Coeff of [place] 14.4 Plt Count 180 MPV 12.2 H Immature Gran % (Auto) 1.000 H Neut % (Auto) 56.6 Lymph % (Auto) 8.9 L [place] % (Auto) 30.5 H Eos % (Auto) 2.7 Baso % (Auto) 0.3 Absolute Neuts (auto) 7.2 Absolute Lymphs (auto) 1.14 Nucleated RBC % 0 Differential Comment SCANNED Diff Path Review December foll PT 14.7 INR 1.2 APTT 38.6 H Sodium 136 Potassium 4.6 Chloride 105 Carbon Dioxide 25.0 Anion Gap 6 BUN 25 H Creatinine 1.31 H Estim Creat Clear Calc 30.69 Est GFR (MDRD) Af Amer 51 L Est GFR (MDRD) Non-Af 42 L BUN/Creatinine Ratio 19.1 Glucose 106 Calcium 9.0 Urine Color Urine Clarity Urine pH Ur Specific [place] Urine Protein Urine Glucose (UA) Urine Ketones Urine Occult Blood Urine Nitrite Urine Bilirubin Urine Urobilinogen Ur Leukocyte Esterase Urine RBC Urine WBC Ur Squamous Epith Cells Calcium Oxalate Crystal Urine Bacteria Urine Mucus 09/24/19 15:50 WBC RBC Hgb Hct MCV MCH MCHC RDW Std Deviation RDW Coeff of [place] Plt Count MPV Immature Gran % (Auto) Neut % (Auto) Lymph % (Auto) [place] % (Auto) Eos % (Auto) Baso % (Auto) Absolute Neuts (auto) Absolute Lymphs (auto) Nucleated RBC % Differential Comment Diff Path Review PT INR APTT Sodium Potassium Chloride Carbon Dioxide Anion Gap BUN Creatinine Estim Creat Clear Calc Est GFR (MDRD) Af Amer Est GFR (MDRD) Non-Af BUN/Creatinine Ratio Glucose Calcium Urine Color Yellow Urine Clarity Cloudy Urine pH 5.0 Ur Specific [place] 1.025 Urine Protein 100 H Urine Glucose (UA) Normal Urine Ketones Negative Urine Occult Blood 250 H Urine Nitrite Negative Urine Bilirubin 1 H Urine Urobilinogen Normal Ur Leukocyte Esterase 100 H Urine RBC > 100 SEEN Urine WBC 5-10 SEEN Ur Squamous Epith Cells 0-5 SEEN Calcium Oxalate Crystal 2+ Urine Bacteria 2+ Urine Mucus RARE - EKG Initial EKG Interpretation: Sinus Tachycardia - Sinus tach at 110 with no acute ischemia. - Medical Decision Making Patient is given IV fluids here. She does have some evidence of dehydration on her blood work. She does have 2+ bacteria in her urine, but has significantly more red cells than white cells. She is already on Bactrim. Urine culture will be sent. Blood cultures were sent. Patient has got to the point where she is unable to ambulate around her home and had a significant decline in function. She will be admitted for further treatment. ED Disposition - Plan for ED Patient: Disposition: Acute Care Hospital [facility] Diagnosis: Declining functional status, Unable to ambulate, Renal insufficiency Referrals: Augusta Wilson DO [Primary Care Provider] -
[2019-09-24 15:43] LABS: Absolute Lymphocyte Count 1.14 X10^3/uL (0.83-4.51); Absolute Neutrophil Count 7.2 X10^3/uL (2.0-7.7); Basophil# 0.04 X10^3/uL; Basophil% 0.3 % (0-1); Eosinophil# 0.35 X10^3/uL; Eosinophils% 2.7 % (0-5); Hematocrit 37.1 % (37-47); Hemoglobin 12.1 g/dL (12.0-15.0); Lymphocyte # 1.14 X10^3/ul (4.0); Lymphocyte % 8.9 % (19-41); Mean Corp Hgb Conc 32.6 g/dL (32-36); Mean Corpuscular Hgb 34.1 pg (27.0-32.0); Mean Corpuscular Volume 104.5 fL (81-99); Mean Platelet Vol. 12.2 fl (6.2-12.0); Monocyte% 30.5 % (0-10); NRBC Flagged by Analyzer 0 % (0-5); Neutrophil # 7.22 X10^3/uL (2.7-7.7); Neutrophil % 56.6 % (47-70); POSITIVE DIFFERENTIAL YES; Platelet Count 180 K/mm3 (150-450); RBC Distribution Width CV 14.4 % (11.6-14.6); RBC Distribution Width SD 55.6 fl (35.1-43.9); Red Blood Count 3.55 M/mm3 (4.2-5.4); White Blood Count 12.8 K/mm3 (4.4-11.0)
[2019-09-24 15:57] LABS: International Normalized Ratio 1.2; Prothrombin Time (Protime)PT. 14.7 SECONDS (11.7-14.9)
[2019-09-24 15:58] LABS: Differential Indicated SCAN CRITERIA MET; Partial Thromboplast Time 38.6 Seconds (24.1-36.2)
[2019-09-24] MEDS: 0.9% Normal Saline 1,000 ML 150 ML IV (16:00)
[2019-09-24 16:06] LABS: Anion Gap 6 (5-15); BUN 25 mg/dL (7-18); BUN/Creat Ratio 19.1 RATIO (10-20); Chloride 105 mmol/L (98-107); Creatinine, Serum 1.31 mg/dL (0.55-1.02); EST Glomerular Filtration Rate 42 mL/min (>60); Est Glom Filt Rate - Afr Amer 51 mL/min (>60); Estimated Creatinine Clearance 30.69 ml/min; Glucose 106 mg/dL (74-106); Potassium 4.6 mmol/L (3.5-5.1); Sodium Level 136 mmol/L (136-145)
[2019-09-24 16:19] LABS: Color, Urine Yellow (Yellow); Glucose, Dipstick Normal (Normal); Ketone-Dipstick Negative (Negative); Leukocyte Esterase-Dipstick 100 /ul (Negative); Nitrite-Dipstick Negative (Negative); Occult Blood-Urine 250 /ul (Negative); Protein-Dipstick 100 mg/dl (Negative); Specific Gravity, Urine 1.025 (1.002-1.030); Urine Clarity Cloudy (Clear); Urine Urobilinogen Normal (Normal)
[2019-09-24 16:20] LABS: Differential Comment SCANNED
[2019-09-24 16:21] VITALS: BP 131/60; PULSE 110; RESP 16; O2SAT 95
[2019-09-24 16:30] LABS: Urine Bilirubin Dipstick 1 mg/dL (Negative)
[2019-09-24 16:32] LABS: Red Blood Cells-Urine > 100 SEEN /hpf (0-5)
[2019-09-24 16:33] LABS: Bacteria 2+ /hpf (None Seen); Mucous, Urine RARE /hpf (<or=2+); Squamous Epithelial Cells - UA 0-5 SEEN /hpf (5-10); White Blood Cells 5-10 SEEN /hpf (0-5)
[2019-09-24 16:34] LABS: Calcium Oxalate Crystals Ur 2+ /hpf (<or=2+)
[2019-09-24 17:26] VITALS: BP 103/86; PULSE 109; RESP 18; O2SAT 94
[2019-09-24 17:54] VITALS: BP 105/73; PULSE 87; RESP 15; O2SAT 94
[2019-09-24 18:28] VITALS: BMI 23.2
--- NOTE | 2019-09-24 18:31 | PCM.HP.STD ---
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 Gómez for tx of Multiple Myeloma (7) Intractable back pain Status: Inactive Comment: hematoma (8) HLD (hyperlipidemia) Status: Chronic Qualifiers: (9) Anxiety and depression Status: Chronic (10) Debility Status: Chronic (11) Epidural hematoma Status: Resolved (12) Cauda equina syndrome Status: Resolved (13) Hypotension Status: Resolved (14) Hypophosphatemia Status: Resolved (15) Essential tremor Status: Chronic (16) Low back pain Status: Chronic (17) Vascular dementia Status: Chronic (18) Hypertension Status: Chronic Qualifiers: Hypertension type: essential hypertension Qualified Code(s): I10 - Essential (primary) hypertension (19) Neuropathic pain Status: Chronic (20) Left hemiparesis Status: Chronic (21) Anxiety Status: Chronic (22) Pressure ulcer of right buttock, stage 3 Status: Chronic (23) Urinary incontinence Status: Chronic (24) Declining functional status Status: Acute (25) Unable to ambulate Status: Acute (26) Cerebrovascular disease Status: Chronic (27) PFO (patent foramen ovale) Status: Ruled-out Comment: [facility] November 2018 at [facility] (28) Macrocytosis Status: Chronic (29) MDS (myelodysplastic syndrome), low grade Status: Chronic (30) Myeloma Status: Chronic Qualifiers: (31) Lung nodule Status: Chronic Comment: Left upper lobe, May 2018 (32) Liver lesion, right lobe Status: Chronic Comment: Negative biopsy for malignancy June 29, 2018 (33) Anemia Status: Chronic (34) Cognitive dysfunction Status: Chronic (35) Meningioma Status: Chronic (36) Chronic anticoagulation Status: Chronic Comment: on therapeutic Lovenox History of Present Illness Date of Admission: 09/24/19 Chief Complaint: confusion, tremoring and weakness rapidly progressive over the past week. The patient is a 74 year old F with a past medical history of multiple myeloma (treated by Dr. Gómez), chronic anticoagulation with Lovenox, hypertension, hyperlipidemia, meningioma (has had gamma knife in the past), suspected history of paroxysmal atrial fibrillation resulting in right MCA ischemic CVAs, epidural hematoma with cauda equina syndrome as a result of an epidural injection in a patient on anticoagulation, depression/anxiety, chronic right lobe of the liver lesion) biopsy negative for malignancy), low-grade myelodysplastic syndrome, vascular dementia, stage III decubitus ulcer right buttock, left upper lobe nodule with negative biopsy and negative PET scan and chronic Left side weakness who presented to the ED at [facility] on 09/24/19 complaining of confusion, rapidly progressing generalized weakness and tremoring. She was discharged from TCU 2 weeks prior to presenting to the emergency department. At that time she was able to ambulate 50 feet with a front wheeled walker. She followed up with her primary care physician, Dr. Augusta Wilson, and was noted to have a decubitus ulcer on the right buttock with foul-smelling discharge and periwound erythema. She was empirically started on Cipro 500 mg BID. A wound culture was ordered and showed Hafnia alvei, Klebsiella pneumoniae and Staphlococcus Warneri. On 09/22/2019 she was seen in the wound care center and at that time she no longer was having foul-smelling drainage from her wound. She denied fever, chills, nausea/vomiting. On physical examination the decubitus ulcer on the right buttock had a small amount of slough with no drainage. There was no warmth or tenderness to palpation and no surrounding erythema or maceration. Despite the fact that there appeared to be no infection present ciprofloxacin was discontinued and she was started on Bactrim. The PE at that visit did not mention cellulitis of the LE's but, the pt tells me that she was told the Bactrim would treat cellulitis as well. In the past 2 days she has become progressively weaker and is having total body tremors, increased confusion and today was unable to ambulate secondary to weakness. Today she denies fever, nausea, vomiting, abdominal pain, cough, headache or neck stiffness. Vital signs at presentation to the emergency department were temperature 99.4, pulse rate 98, blood pressure 179/120, Respiratory rate 16 and pulse ox on room air was 96%. The white blood cell count was 12.8 with 56.6% neutrophils. 12.8 is within what it has been over the past few months. Hemoglobin is 12.1 which is up from 10.6 on 09/06/2019. Platelets are within normal limits at 180,000. BMP is significant for an elevated BUN at 25 with a creatinine of 1.31, up from 0.91 on 09/06/2019. UA showed a specific gravity of 1.025 with greater than 100 RBCs per high-power field and 5-10 WBCs. There were calcium oxalate crystals and 2+ bacteria. She has a chronic indwelling Bentley catheter. Blood cultures and urine culture were sent from the emergency department. I suspect the sudden escalation in sx including weakness, tremors and confusion may be related to Bactrim. Past Medical History Past Medical History (Chronic Problems): Chronic Problems (Last Reviewed 09/06/19 @ 09:58 by Anika Choudhary) Stroke (Chronic) 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 Gómez for tx of Multiple Myeloma HLD (hyperlipidemia) (Chronic) Anxiety and depression (Chronic) Debility (Chronic) Essential tremor (Chronic) Low back pain (Chronic) Vascular dementia (Chronic) Hypertension (Chronic) Neuropathic pain (Chronic) Left hemiparesis (Chronic) Anxiety (Chronic) Pressure ulcer of right buttock, stage 3 (Chronic) Urinary incontinence (Chronic) Chronic indwelling Bentley catheter (Chronic) Chronic anticoagulation (Chronic) on therapeutic Lovenox Cerebrovascular disease (Chronic) Macrocytosis (Chronic) MDS (myelodysplastic syndrome), low grade (Chronic) Myeloma (Chronic) Lung nodule (Chronic) Left upper lobe, May 2018 Liver lesion, right lobe (Chronic) Negative biopsy for malignancy June 29, 2018 Anemia (Chronic) Cognitive dysfunction (Chronic) Meningioma (Chronic) Medical History: Medical History (Last Reviewed 09/24/19 @ 19:03 by Tonia Russ DO) Cellulitis L03.90 left eye 1-2018 Meningioma D32.9 Gamma knife at [facility] ~2000 Osteopenia M85.80 Stroke I63.9 X2 - HOSPITALIZATION FOR 5 DAYS Allergies morphine Adverse Reaction (Severe, Verified 09/24/19 14:47) Nausea Home Medications: Ambulatory Orders Medication Instructions Recorded Enoxaparin [Lovenox] 80 mg SUBCUT Q12@0600,1800 05/31/19 Acyclovir [Zovirax] 400 mg PO BID 06/28/19 Calcium Carbonate [Tums] 500 mg PO BIDCM tab 09/07/19 Gabapentin [Neurontin] 600 mg PO BIDCM PRN #60 tab 09/07/19 Pantoprazole Sodium [Protonix] 40 mg PO DAILY #30 tab 09/07/19 Tamsulosin HCl [Flomax] 0.4 mg PO DAILY@1730 #30 cap 09/07/19 buPROPion SR [Wellbutrin SR (150mg 150 mg PO BID #60 tablet.sa 09/07/19 tablets)] Atorvastatin Calcium [Lipitor] 80 mg PO QHS #30 tab 09/10/19 Cholecalciferol (Vitamin D3) 1 cap DAILY 09/15/19 [Vitamin D3] Ciprofloxacin [Cipro] 500 mg PO BID 09/22/19 Gabapentin 600 mg PO BID 09/22/19 Sulfamethoxazole/Trimethoprim 1 tab PO DAILY 09/24/19 [Sulfamethoxazole-Tmp Ds Tablet] Surgical History: Surgical History (Last Reviewed 09/24/19 @ 19:03 by Tonia Russ DO) History of cholecystectomy Z90.49 History of hysterectomy Z90.710 Surgical History: cholecystectomy, hysterectomy, tonsillectomy, - - Gamma knife meningioma. Surgery to evacuate a very large Lumbar hematoma causing cauda equina S. 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 Paternal Family History: Family History (Last Reviewed 09/24/19 @ 19:04 by Tonia Russ DO) Mother Breast cancer Sister Breast cancer Aunt Breast cancer Daughter History of malignant melanoma Father Brain cancer Brother Lung cancer History Items: Cancer - Father with history of brain cancer. Review of Systems Constitutional: Reports: Chills - she tells me she is having chills and she knows this because her hands are shaking....but she denies any teeth chattering. Denies: Fever, Weight Change Eyes: Reports: Vision Change - since CVA HEENT: Denies: Difficulty Swallowing, Head Aches, Sinus Congestion, Sinus Drainage, Sore Throat Cardiovascular: Reports: Edema - of the distal LE's L>R. Denies: Chest Pain, Light Headedness, Palpitations, Syncope Respiratory: Denies: Cough, Shortness of Breath, Shortness of breath at rest, Shortness of breath upon exertion, Sputum production, Wheezing Gastrointestinal: Reports: Constipation. Denies: Abdominal Pain, Diarrhea, Nausea, Vomiting Genitourinary: Reports: Incontinence - She has chronic urinary incontinence and for this reason has a chronic indwelling Bentley catheter.. Denies: Dysuria Musculoskeletal: Reports: Leg Pain - she has pain of the distal lateral leg proximal to the ankle and she has localized bruising and swelling in the area.. Denies: Joint Pain, Joint Tenderness, Neck Pain Skin: Reports: Wounds - on the right buttock. Denies: Jaundice, Rash Neurological: Reports: Balance problems, Confusion, Incoordination, Tremor. Denies: Slurred speech, Focal weakness, Numbness, Tingling, Seizures Psychiatric: Reports: Anxiety, Depression. Denies: Homicidal Ideations, Suicidal Ideations Endocrine: Denies: Change in Body Habitus Hematologic/ Lymphatic: Reports: Easy Bruising, Easy Bleeding VTE Information - Inpt Only VTE Present on Admission: No VTE Mechan Device Prophylaxis: None VTE Pharm Prophylaxis ordered?: No Reason prophylaxis not ordered:: Treatment Not Indicated - she is on full dose Lovenox Patient Problems: Active and Suspected Problems (Last Reviewed 09/06/19 @ 09:58 by Anika Choudhary) Declining functional status (Acute) Unable to ambulate (Acute) AL (acute kidney injury) (Acute) Dehydration (Acute) Adverse drug effect (Suspected) suspect tremoring, confusion, anxiety due to antibiotic......Cipro + Bactrim - Physical Exam Vitals/I&O's: Vital Signs Temp Pulse Resp BP Pulse Ox 99.4 F H 87 15 105/73 94 09/24/19 14:47 09/24/19 17:54 09/24/19 17:54 09/24/19 17:54 09/24/19 17:54 Oxygen Delivery Method Room Air Weight: 131 lb 2.801 oz Body Mass Index (BMI) 23.2 Finger Stick Blood Glucose 101 General: Alert, Oriented x3 - she recognizes me from and admission in January of 2019, Cooperative, Well developed, Well nourished, - - She is having tremors of the UE's BL...no teeth chattering......when I am not talking with her and I am addressing her family she stopped tremoring briefly HEENT: Atraumatic, PERRLA, EOMI, Normocephalic Oral: No Gingival or Mucosal Lesions/ Ulcerations, Dry Mucosa Neck: Supple, No JVD, No Nodes, Trachea Midline Lungs: Clear to auscultation, Normal air movement Cardiovascular: Regular Rhythm, Normal S1, Normal S2, Murmur - she has a short harsh Systolic MM at the apex....2/6, No rub noted, No Gallop, Tachycardic Abdomen: Bowel Sounds Present, Soft, Non Tender, Non-Distended, - - there is a small subcutaneous hematoma LLQ due to Lovenox injection. There are small bruises in the LLQ in various stages of resolution. No guarding with resolution Extremities: No clubbing, No cyanosis, Diminished Peripheral Pulses, Edema - she has pitting edema of the distal lateral L leg......there is also bruising and it is tender to palpation......there is no erythema per my exam., - - she also has bruising of the plantar surface of the foot on the left and bruising of the medial R ankle......I see no evidence of cellulitis at this time. there are no openings in the skin and no DC. Skin: No rashes, - - There is a small stage II decub on the R buttock with a small area of slough in the center. There is no odor, no purulent DC and no ольга-wound erythema. Neurological: Cranial nerves II-XII grossly intact, Motor Exam 5/5 strength throughout - there is some tremoring of the legs when she held them up but, no drift and she held them up high for a count of 5. she was able to do heel to ortiz with both legs, - - she was not stood and was not observed ambulating Laboratory Results 09/24/19 15:30: WBC 12.8 H, RBC 3.55 L, Hgb 12.1, Hct 37.1, MCV 104.5 H, MCH 34.1 H, MCHC 32.6, RDW Std Deviation 55.6 H, RDW Coeff of [place] 14.4, Plt Count 180, MPV 12.2 H, Immature Gran % (Auto) 1.000 H, Neut % (Auto) 56.6, Lymph % (Auto) 8.9 L, [place] % (Auto) 30.5 H, Eos % (Auto) 2.7, Baso % (Auto) 0.3, Absolute Neuts (auto) 7.2, Absolute Lymphs (auto) 1.14, Nucleated RBC % 0, Differential Comment SCANNED, Diff Path Review December09/24/19 15:30: PT 14.7, INR 1.2, APTT 38.6 H 09/24/19 15:30: Sodium 136, Potassium 4.6, Chloride 105, Carbon Dioxide 25.0, Anion Gap 6, BUN 25 H, Creatinine 1.31 H, Estim Creat Clear Calc 30.69, Est GFR (MDRD) Af Amer 51 L, Est GFR (MDRD) Non-Af 42 L, BUN/Creatinine Ratio 19.1, Glucose 106, Calcium 9.0 09/24/19 15:50: Urine Color Yellow, Urine Clarity Cloudy, Urine pH 5.0, Ur Specific [place] 1.025, Urine Protein 100 H, Urine Glucose (UA) Normal, Urine Ketones Negative, Urine Occult Blood 250 H, Urine Nitrite Negative, Urine Bilirubin 1 H, Urine Urobilinogen Normal, Ur Leukocyte Esterase 100 H, Urine RBC > 100 SEEN, Urine WBC 5-10 SEEN, Ur Squamous Epith Cells 0-5 SEEN, Calcium Oxalate Crystal 2+, Urine Bacteria 2+, Urine Mucus RARE Current Medications Sodium Chloride () 1,000 mls @ 150 mls/hr IV .[id number] [facility] Last Admin: 09/24/19 16:00 Dose: 150 mls/hr Documented by: Assessment/Plan All Active Problems (Last Reviewed 09/06/19 @ 09:58 by Anika Choudhary) Declining functional status (Acute) Unable to ambulate (Acute) AL (acute kidney injury) (Acute) Dehydration (Acute) PFO (patent foramen ovale) (Ruled-out) Cauda equina syndrome (Resolved) Epidural hematoma (Resolved) Hypophosphatemia (Resolved) Hypotension (Resolved) Impressions 1. Rapidly progressive weakness, confusion and tremoring over the past 48 hours.....suspect this may be due to an adverse drug reaction from Cipro or BActrim or the combined effects of both. DC the Cipro and the Bactrim. She has many more RBC's in the urine than WBC's and she is on Lovenox. No fever and even though the WBC is mildly elevated (not unusual for her with MM) I am not convinced she has any infection that requires tx at this time. Await the results of urine culture and blood culture sent from the emergency department. She does take dexamethasone and this may be the reason for the elevated white blood cell count. 2. AL - more likely than not due to dehydration. Urine sodium and creat ordered and she is also ordered IV fluids. Recheck the lab in the AM. 3. Chronic medical conditions include essential hypertension, hyperlipidemia, chronic anticoagulation with Lovenox, suspected history of atrial fibrillation, ischemic right MCA infarcts January 2019, vascular dementia, left hemiparesis, possible myeloma, low-grade myelodysplastic syndrome, anxiety/depression, cauda equina syndrome secondary to large epidural hematoma/resolved, iron deficiency-receiving intravenous iron from Dr. Gómez-continue home medications. Complicate care, management and prognosis Recheck lab in the a.m. Code Visit Inpatient E&M: 48761 Init Hosp L2
[2019-09-24 18:39] VITALS: BMI 23.2
[2019-09-24] MEDS: Bisacodyl 5 MG Tablet 10 MG PO (19:45)
[2019-09-24] MEDS: Enoxaparin 60 MG/0.6 ML Syringe SC (19:45)
[2019-09-24] MEDS: Polyethylene Glycol 3350 17 GM PACKET PO (19:45)
[2019-09-24] MEDS: 0.9% Normal Saline 1,000 ML 100 ML IV (19:56)
[2019-09-24 20:05] VITALS: BP 107/69; PULSE 111; RESP 18; TEMP 37.3; O2SAT 95
[2019-09-24 21:07] LABS: AST(SGOT) 16 U/L (15-37); Alanine Aminotransfer ALT/SGPT 23 U/L (13-56); Alkaline Phosphatase 70 U/L (45-117); Globulin 2.8 g/dL (2.2-4.2); Magnesium 1.9 mg/dL (1.6-2.6); Phosphorus 2.9 mg/dL (2.5-4.9); Protein, Total 5.8 g/dL (6.4-8.2)
[2019-09-24] MEDS: buPROPion (SR) 150 MG Tablet.SA PO (22:21)
[2019-09-24] MEDS: Atorvastatin Calcium 80 MG Tablet PO (22:21)
[2019-09-24] MEDS: Acyclovir 200 MG Capsule 400 MG PO (22:21)
[2019-09-24] MEDS: Gabapentin 600 MG Tablet PO (22:21)
[2019-09-24 23:25] VITALS: O2SAT 95
[2019-09-25 03:09] VITALS: BP 101/48; PULSE 106; RESP 18; TEMP 36.8; O2SAT 95
[2019-09-25 06:04] LABS: Absolute Lymphocyte Count 1.18 X10^3/uL (0.83-4.51); Absolute Neutrophil Count 7.5 X10^3/uL (2.0-7.7); Basophil# 0.03 X10^3/uL; Basophil% 0.2 % (0-1); Eosinophil# 0.35 X10^3/uL; Eosinophils% 2.7 % (0-5); Hematocrit 32.2 % (37-47); Hemoglobin 10.3 g/dL (12.0-15.0); Lymphocyte # 1.18 X10^3/ul (4.0); Lymphocyte % 9.1 % (19-41); Mean Corpuscular Hgb 33.7 pg (27.0-32.0); Mean Corpuscular Volume 105.2 fL (81-99); Mean Platelet Vol. 11.8 fl (6.2-12.0); Monocyte# 3.72 X10^3/uL; Monocyte% 28.8 % (0-10); NRBC Flagged by Analyzer 0 % (0-5); Neutrophil # 7.53 X10^3/uL (2.7-7.7); Neutrophil % 58.5 % (47-70); POSITIVE DIFFERENTIAL YES; Platelet Count 170 K/mm3 (150-450); RBC Distribution Width CV 14.6 % (11.6-14.6); RBC Distribution Width SD 56.6 fl (35.1-43.9); Red Blood Count 3.06 M/mm3 (4.2-5.4); White Blood Count 12.9 K/mm3 (4.4-11.0)
[2019-09-25 06:23] LABS: Differential Indicated SCAN CRITERIA MET
[2019-09-25] MEDS: 0.9% Normal Saline 1,000 ML 100 ML IV ×2 (06:24→16:52)
[2019-09-25] MEDS: Enoxaparin 60 MG/0.6 ML Syringe SC ×2 (06:24→16:53)
[2019-09-25 06:30] LABS: Anion Gap 5 (5-15); BUN 17 mg/dL (7-18); Calcium,Total 8.2 mg/dL (8.5-10.1); Chloride 109 mmol/L (98-107); Creatinine, Serum 0.89 mg/dL (0.55-1.02); EST Glomerular Filtration Rate 65 mL/min (>60); Est Glom Filt Rate - Afr Amer 79 mL/min (>60); Estimated Creatinine Clearance 45.18 ml/min; Glucose 107 mg/dL (74-106); Sodium Level 137 mmol/L (136-145)
[2019-09-25 06:37] LABS: Creatinine, Urine (random) < 13.00 mg/dL (NO RANGE EST.); Urine Sodium 8 mmol/L (Not Establ.)
[2019-09-25] MEDS: Calcium Carbonate 500 MG Tablet PO ×2 (08:02→16:52)
[2019-09-25] MEDS: buPROPion (SR) 150 MG Tablet.SA PO ×2 (08:03→21:28)
[2019-09-25] MEDS: Pantoprazole Sodium 40 MG Tablet PO (08:03)
[2019-09-25] MEDS: Polyethylene Glycol 3350 17 GM PACKET PO (08:03)
[2019-09-25] MEDS: Acyclovir 200 MG Capsule 400 MG PO ×2 (08:03→21:28)
[2019-09-25] MEDS: Gabapentin 600 MG Tablet PO ×2 (08:03→21:28)
[2019-09-25 08:04] VITALS: PULSE 102
--- NOTE | 2019-09-25 08:18 | PN_ITS ---
Patient Problems: Active and Suspected Problems (Last Reviewed 09/24/19 @ 19:03 by Tonia Russ DO) Declining functional status (Acute) Unable to ambulate (Acute) AL (acute kidney injury) (Acute) Dehydration (Acute) Adverse drug effect (Suspected) suspect tremoring, confusion, anxiety due to antibiotic......Cipro + Bactrim Subjective: Patient with no acute events overnight per self and per nursing report. Discussed current presentation and concerned that may be transition from ciprofloxacin to Bactrim for concern of ongoing infected decubitus ulcer as etiology for recent tremor, weakness and possible confusion coupled with acute kidney injury with improvement following discontinuation. Discussed that ongoing wound care will be adequate especially given noninfected appearance, per discussion with wound RN who is seen prior notes it is improved. Discussed options for patient and given ongoing weakness with recent TCU discharge plan would be for [facility] facility placement once clinically appropriate. Patient denies fevers, chills, nausea, emesis, abdominal pain, chest pain or dyspnea. Objective: Physical Examination: General: awake, alert, oriented x 3 and cooperative, seated upright in bedside chair, no acute distress, no obvious upper extremity tremors currently. Skin: normal color, turgor, no icterus, cyanosis, small stage II decubitus ulcer right buttock with small region of slough, no odor, no drainage, distal left lower extremity with ecchymoses, edema, tender to palpation as expected. HEENT: AT/NC, EOMI, PERRLA, MMM. Lungs: CTA bilaterally, moderate effort, moderate decrease BL bases, no rales, ronchi or wheezing. Heart: Regular rate and rhythm; no gallop, rub audible. Abdomen: soft, NTTP, ND, normal BS, no HSM. Extremities: no cyanosis, clubbing, see skin above. Neurological: patient awake, alert, oriented x 3; cognitive function intact; pupils equally reactive to light and accomodation; cranial nerves II-XII grossly normal, moving all 4 extremities with chronic mild left hemiplegia, able to still follow [id number], [id number] previously, 4-5, strength moderately to severely global decrease secondary to recent admission, acute presentation with generalized decline Psychiatric: affect appears fatigued, no acute evidence of depressive or anxiety feelings. Vitals/I&O's: Vital Signs Temp Pulse Resp BP Pulse Ox 98.2 F 102 H 18 101/48 L 95 09/25/19 03:09 09/25/19 08:04 09/25/19 03:09 09/25/19 03:09 09/25/19 03:09 Oxygen Delivery Method Room Air Weight: 131 lb 2.801 oz Body Mass Index (BMI) 23.2 Finger Stick Blood Glucose 101 Intake and Output for Last 24 Hours 09/23/19 09/24/19 09/25/19 23:59 23:59 23:59 Intake Total 587.5 / 1087.5 1700 / 1700 Output Total 750 / 750 Balance 587.5 / 837.5 950 / 950 Laboratory Results 09/24/19 15:30: WBC 12.8 H, RBC 3.55 L, Hgb 12.1, Hct 37.1, MCV 104.5 H, MCH 34.1 H, MCHC 32.6, RDW Std Deviation 55.6 H, RDW Coeff of [place] 14.4, Plt Count 180, MPV 12.2 H, Immature Gran % (Auto) 1.000 H, Neut % (Auto) 56.6, Lymph % ( Auto) 8.9 L, Gulf % (Auto) 30.5 H, Eos % (Auto) 2.7, Baso % (Auto) 0.3, Absolute Neuts (auto) 7.2, Absolute Lymphs (auto) 1.14, Nucleated RBC % 0, Differential Comment SCANNED, Diff Path Review December09/24/19 15:30: PT 14.7, INR 1.2, APTT 38.6 H 09/24/19 15:30: Sodium 136, Potassium 4.6, Chloride 105, Carbon Dioxide 25.0, Anion Gap 6, BUN 25 H, Creatinine 1.31 H, Estim Creat Clear Calc 30.69, Est GFR (MDRD) Af Amer 51 L, Est GFR (MDRD) Non-Af 42 L, BUN/Creatinine Ratio 19.1, Glucose 106, Calcium 9.0 09/24/19 15:50: Urine Color Yellow, Urine Clarity Cloudy, Urine pH 5.0, Ur Speci fic [place] 1.025, Urine Protein 100 H, Urine Glucose (UA) Normal, Urine Ketones Negative, Urine Occult Blood 250 H, Urine Nitrite Negative, Urine Bilirubin 1 H, Urine Urobilinogen Normal, Ur Leukocyte Esterase 100 H, Urine RBC > 100 SEEN, Urine WBC 5-10 SEEN, Ur Squamous Epith Cells 0-5 SEEN, Calcium Oxalate Crystal 2+, Urine Bacteria 2+, Urine Mucus RARE 09/24/19 20:00: Magnesium 1.9, Total Bilirubin 0.10 L, Direct Bilirubin 0.10, AST 16, ALT 23, Alkaline Phosphatase 70, Total Protein 5.8 L, Albumin 3.0 L, Globulin 2.8 09/24/19 20:00: Phosphorus 2.9 09/25/19 05:25: Ur Random Sodium 8, Urine Creatinine < 13.00 09/25/19 05:48: Sodium 137, Potassium 4.0, Chloride 109 H, Carbon Dioxide 23.0, Anion Gap 5, BUN 17, Creatinine 0.89, Estim Creat Clear Calc 45.18, Est GFR (MDRD) Af Amer 79, Est GFR (MDRD) Non-Af 65, BUN/Creatinine Ratio 19.0, Glucose 107 H, Calcium 8.2 L 09/25/19 05:48: WBC 12.9 H, RBC 3.06 L, Hgb 10.3 L, Hct 32.2 L, MCV 105.2 H, MCH 33.7 H, MCHC 32.0, RDW Std Deviation 56.6 H, RDW Coeff of [place] 14.6, Plt Count 170, MPV 11.8, Immature Gran % (Auto) 0.700, Neut % (Auto) 58.5, Lymph % (Auto) 9.1 L, Gulf % (Auto) 28.8 H, Eos % (Auto) 2.7, Baso % (Auto) 0.2, Absolute Neuts (auto) 7.5, Absolute Lymphs (auto) 1.18, Nucleated RBC % 0, Differential Comment , Diff Path Review May foll Current Medications Acetaminophen (Tylenol) 650 mg PO Q6H PRN PRN PRN Reason: Pain Score 1-3/Temp > 100.7 F Acyclovir (Zovirax) 400 mg PO BID [facility] Last Admin: 09/25/19 08:03 Dose: 400 mg Documented by: Al Hydroxide/Mg Hydroxide (Mylanta Ii) 30 ml PO Q6H PRN PRN PRN Reason: Gastric Burning Atorvastatin Calcium (Lipitor) 80 mg PO QHS [facility] Last Admin: 09/24/19 22:21 Dose: 80 mg Documented by: Bupropion HCl (Wellbutrin Sr (150mg Tablets)) 150 mg PO BID [facility] Last Admin: 09/25/19 08:03 Dose: 150 mg Documented by: Calcium Carbonate (Tums) 500 mg PO BIDCM [facility] Last Admin: 09/25/19 08:02 Dose: 500 mg Documented by: Enoxaparin Sodium (Lovenox) 60 mg SC Q12@0600,1800 [facility] Last Admin: 09/25/19 06:24 Dose: 60 mg Documented by: Gabapentin (Neurontin) 600 mg PO BID [facility] Last Admin: 09/25/19 08:03 Dose: 600 mg Documented by: Sodium Chloride () 1,000 mls @ 100 mls/hr IV .Q10H [facility] Last Admin: 09/25/19 06:24 Dose: 100 mls/hr Documented by: Ceftriaxone Sodium 2 gm/ (Sodium Chloride) 50 mls @ 100 mls/hr IV Q24 [facility] Magnesium Hydroxide (Milk Of Magnesia) 30 ml PO DAILY PRN PRN PRN Reason: Constipation Melatonin (Melatonin) 3 mg PO QHS PRN PRN PRN Reason: INSOMNIA Nutritional Formula (Lactose Free) (Ensure Enlive) 120 ml PO 4X/DAY [facility] Last Admin: 09/24/19 22:19 Dose: Not Given Documented by: Ondansetron HCl (Zofran) 4 mg IV Q8H PRN PRN PRN Reason: NAUSEA/VOMITING Pantoprazole Sodium (Protonix) 40 mg PO DAILY [facility] Last Admin: 09/25/19 08:03 Dose: 40 mg Documented by: Polyethylene Glycol (Miralax) 17 gm PO DAILY [facility] Last Admin: 09/25/19 08:03 Dose: 17 gm Documented by: Sodium Biphosphate/Sodium Phosphate (Fleet Enema) 1 bottle RECTAL DAILY PRN PRN PRN Reason: Constipation Sodium Chloride () 10 - 40 ml IV UD PRN PRN Reason: SALINE FLUSH Tamsulosin HCl (Flomax) 0.4 mg PO DAILY@1730 [facility] STROKE Vital Signs/Narrative: Vital Signs Pulse 09/25/19 08:04 102 H Medical Necessity - Tobacco Use Smoking Status: Never smoker Tobacco Use: Non-smoker Assessment/Plan All Active Problems (Last Reviewed 09/24/19 @ 19:03 by Tonia Russ DO) Declining functional status (Acute) Unable to ambulate (Acute) AL (acute kidney injury) (Acute) Dehydration (Acute) PFO (patent foramen ovale) (Ruled-out) Cauda equina syndrome (Resolved) Epidural hematoma (Resolved) Hypophosphatemia (Resolved) Hypotension (Resolved) The patient is a 74 y/o F w/ PMHx: Fe Deficiency Anemia, Multiple myeloma/MDS with ongoing chemotherapy following w/ Dr. Gómez, Hx Meningioma s/p gamma [place], HLD, Anxiety and Depression, Hx CVAs (including R MCA), Hx epidural hematoma, Hx Cauda Equina Syndrome s/p epidural injection while anticoagulated, Suspected PAF, Chronic back pain following w/ Dr. Jean, stage III decubitus ulcer right buttock with recent foul-smelling discharge and periwound erythema recently started on empiric cipro w/ transition to bactrim w/ follow-up [facility] 09/22/19 evaluation with improvement who presents to the [facility] ED on 09/24/19 with worsening confusion, fatigue, malaise x 2 days prompting ED presentation. 1. Acute Encephalopathy, Suspected secondary to Medication Side Effects: Recent cipro for treatment decubitous ulcer infection, transitioned to bactrim, suspected as etiology, discontinued given improved appearance of stage III decubitus ulcer right buttock, maintain on fall precautions, continue hydration as evidence dehydration upon presentation with AL, pending UCx, Bld Cx x 2, maintained on dexamethasone which may be etiology for mild leukocytosis also. PT/OT/CM consultations for discharge planning, recent TCU discharge. 2. Acute kidney injury: Secondary to medications, dehydration. Admission BUN/Cr 25/1.31, prior baseline creatinine noted to be 0.7-0.8. Hydrated, held nephrotoxic agents, repeat 09/25/19 BUN/Cr 17/0.89, improving. 3. Recent Infection stage III decubitus ulcer right buttock: Wound Cx w/ Hafnia alvei, Klebsiella pneumoniae and Staphlococcus Warneri, treated with cipro oral regimen, follow-up 09/22/19 evaluation at [facility] with improvement per report, transitioned at that time to bactrim, given improvement of region, discontinued bactrim, likely contributing to her AL, wound RN consulted, continue dressing changes, off loading. 4. Chronic Back Pain: Following w/ pain management, history of frequent injections, unfortunate history of cauda equina following injection on anticoagulation, complicated by CVA w/ L sided hemiplegia, lumbar spine plain film with degenerative changes with left paracentral foraminal disc bulge at L3- L4 resulting in moderate foraminal narrowing with no acute osseous process, L1- S1 posterior laminectomy changes with no evidence of large fluid collection. 5. Multiple myeloma/MDS: Patient previously on chemotherapy on Revlimid, no longer on regimen per list, following w/ Dr. Gómez, maintained on therapeutic lovenox given high risk but no history of VTE but as noted CVA with suspected underlying PAF. 6. Hx CVAs w/ Suspected Underlying PAF, Hx Epidural Hematoma, Hx Cauda Equina s/p injection while on anticoagulation: s/p most recent R MCA CVA 01/2019 with chronic L sided hemiplegia, maintained with chronic indwelling catheter, complicated by decubitous ulcers as noted, We will maintain on baby asa, therapeutic Lovenox, statin, regimen. UCx pending, UA not severe appearing and consistent with history of chronic botello. Maintained on flomax. 7. Hx Meningioma: s/p gamma knife, CT head w/ stable appearing meningioma, following w/ Dr. Gómez. 8. Anxiety and depression: Continue patient home wellbutrin regimen. 9. Hyperlipidemia: Continue home statin regimen. 10. DVT prophylaxis: SCDs, therapeutic Lovenox. Code Visit Inpatient E&M: 62770 Subs Hosp L2
[2019-09-25 09:10] VITALS: BP 118/86; PULSE 102; RESP 18; TEMP 36.6; O2SAT 95
--- NOTE | 2019-09-25 09:42 | NURSING ---
wound photo: right upper buttock
--- NOTE | 2019-09-25 10:41 | CASEMGMT ---
RN CM Assessment Note Presentation: AL, dehydration; past hx of stroke with L hemiparesis, cauda equina syndrome, +chemo for mult myeloma Specialists: [facility]; [facility]: [facility] Insurance: [facility] Prescription Benefit: yes LNOK: , Jerod Singh Living Arrangements: Lives with , first floor set up. assists with ambulation, bathing, dressing. Transportation: family drives DME: wheeled walker, cane, raised toilet seat, hand held shower HHC/SNF: Current with [facility]- RN PT OT; recent TCU stay- dc'd 09/10/2019 consult: SNF evaluation for dc. DC PLAN: undetermined. Nic STRANGE RN ACM
[2019-09-25 11:00] VITALS: O2SAT 97
--- NOTE | 2019-09-25 11:29 | CASEMGMT ---
RN CM Assessment Note Presentation: AL, dehydration; past hx of stroke with L hemiparesis, cauda equina syndrome, +chemo for mult myeloma Specialists: [facility]; [facility]erred [facility]: [facility] Insurance: [facility] Prescription Benefit: yes LNOK: , Jerod Singh Living Arrangements: Lives with , first floor set up. assists with ambulation, bathing, dressing, but per PT/OT evaluation- assist was only minimal. Now per evals, pt is total assist for ADL except eating, grooming and ambulated 4 feet with max assist of 2. Prior level of ambulation was minimal assist of 1 for 125'. Transportation: family drives DME: wheeled walker, cane, raised toilet seat, hand held shower HHC/SNF: Current with [facility]- RN PT OT; recent TCU stay- dc'd 09/10/2019 consult: SNF evaluation for dc. Per PT/OT, pt has significantly declined from previous level of ability. DC PLAN: undetermined. Nic STRANGE RN ACM
[2019-09-25 12:28] LABS: Pathologist Review Reviewed
[2019-09-25 12:32] LABS: Pathologist Review Reviewed
--- NOTE | 2019-09-25 14:07 | CASEMGMT ---
Social Work Note SW attempted to call pt's Jerod to discuss discharge plans. There was no answer, SW left message. Hayley Valente ADJUNCT POLITICAL SCIENCE INSTRUCTOR, [employer]
[2019-09-25 15:08] VITALS: BP 99/52; PULSE 99; RESP 16; TEMP 36.9; O2SAT 99
[2019-09-25] MEDS: Tamsulosin HCl 0.4 MG Capsule PO (16:53)
--- NOTE | 2019-09-25 19:46 | NURSING ---
pt and unable to recall dose of vitamin d. pt's states he will check when he goes home tonight and let us know the dose when he visits tomorrow.
[2019-09-25 21:19] VITALS: BP 111/42; PULSE 107; RESP 16; TEMP 36.9; O2SAT 100
[2019-09-25] MEDS: Atorvastatin Calcium 80 MG Tablet PO (21:28)
[2019-09-26] MEDS: 0.9% Normal Saline 1,000 ML 100 ML IV ×2 (02:24→11:39)
[2019-09-26 02:27] VITALS: BP 126/60; PULSE 111; RESP 18; TEMP 36.8; O2SAT 96
[2019-09-26] MEDS: Enoxaparin 60 MG/0.6 ML Syringe SC ×2 (05:32→17:23)
--- NOTE | 2019-09-26 06:45 | PN_ITS ---
Patient Problems: Active and Suspected Problems (Last Reviewed 09/24/19 @ 19:03 by Tonia Russ DO) Declining functional status (Acute) Unable to ambulate (Acute) AL (acute kidney injury) (Acute) Dehydration (Acute) Adverse drug effect (Suspected) suspect tremoring, confusion, anxiety due to antibiotic......Cipro + Bactrim Subjective: Patient with no acute events overnight per self and per nursing staff. Mental status remains improved with no confusion reported. Patient remains off of Bactrim therapy for previously noted concern for infected decubitus ulcer as well appearing upon evaluation. Patient's acute kidney injury is also been improving. Discussed with patient that given decline would likely benefit from transition to [facility] facility, attempting to contact per staff with decision on placement. Patient was recently discharged approximately 2 weeks prior from TCU and has declined at home since. Patient denies fevers, chills, nausea, emesis, abdominal pain, chest pain or dyspnea. Objective: Physical Examination: General: awake, alert, oriented x 3 and cooperative, seated upright in bed, no acute distress, dilution of prior noted tremors. Skin: normal color, turgor, no icterus, cyanosis, small stage II decubitus ulcer right buttock with small region of slough, no odor, no drainage with dressing in place, distal left lower extremity with ecchymoses, edema, tender to palpation as expected. HEENT: AT/NC, EOMI, PERRLA, MMM. Lungs: CTA bilaterally, moderate effort, moderate decrease BL bases, no rales, ronchi or wheezing. Heart: Regular rate and rhythm; no gallop, rub audible. Abdomen: soft, NTTP, ND, normal BS. Extremities: no cyanosis, clubbing, see skin above. Neurological: patient awake, alert, oriented x 3; cognitive function intact; pupils equally reactive to light and accomodation; cranial nerves II-XII grossly normal, moving all 4 extremities with chronic mild left hemiplegia, able to still follow [id number], [id number] previously, 4-5, strength moderately to severely global decrease secondary to recent admission, acute presentation with generalized decline Psychiatric: affect appears less fatigued, mildly flat, no acute evidence of depressive or anxiety feelings. Vitals/I&O's: Vital Signs Temp Pulse Resp BP Pulse Ox 98.3 F 111 H 18 126/60 H 96 09/26/19 02:27 09/26/19 02:27 09/26/19 02:27 09/26/19 02:27 09/26/19 02:27 Oxygen Delivery Method Room Air Weight: 131 lb 2.801 oz Body Mass Index (BMI) 23.2 Finger Stick Blood Glucose 101 Intake and Output for Last 24 Hours 09/24/19 09/25/19 09/26/19 23:59 23:59 23:59 Intake Total 587.5 / 1087.5 2700 / 2800 1103.33 / 1103.33 Output Total 1150 / 1700 1350 / 1350 Balance 587.5 / 837.5 1550 / 1100 -246.67 / -246.67 Laboratory Results 09/24/19 15:30: Diff Path Review Reviewed 09/25/19 05:48: Diff Path Review Reviewed 09/26/19 06:24: WBC Pending, RBC Pending, Hgb Pending, Hct Pending, MCV Pending, MCH Pending, MCHC Pending, RDW Std Deviation Pending, RDW Coeff of Mor[place] Pending, Plt Count Pending, Neut % (Auto) Pending, Absolute Neuts (auto) Pending 09/26/19 06:24: Sodium Pending, Potassium Pending, Chloride Pending, Carbon Dioxide Pending, Anion Gap Pending, BUN Pending, Creatinine Pending, Est GFR (MDRD) Af Amer Pending, Est GFR (MDRD) Non-Af Pending, BUN/Creatinine Ratio Pending, Glucose Pending, Calcium Pending Current Medications Acetaminophen (Tylenol) 650 mg PO Q6H PRN PRN PRN Reason: Pain Score 1-3/Temp > 100.7 F Acyclovir (Zovirax) 400 mg PO BID [facility] Last Admin: 09/25/19 21:28 Dose: 400 mg Documented by: Al Hydroxide/Mg Hydroxide (Mylanta Ii) 30 ml PO Q6H PRN PRN PRN Reason: Gastric Burning Atorvastatin Calcium (Lipitor) 80 mg PO QHS [facility] Last Admin: 09/25/19 21:28 Dose: 80 mg Documented by: Bupropion HCl (Wellbutrin Sr (150mg Tablets)) 150 mg PO BID [facility] Last Admin: 09/25/19 21:28 Dose: 150 mg Documented by: Calcium Carbonate (Tums) 500 mg PO BIDCM [facility] Last Admin: 09/25/19 16:52 Dose: 500 mg Documented by: Enoxaparin Sodium (Lovenox) 60 mg SC Q12@0600,1800 [facility] Last Admin: 09/26/19 05:32 Dose: 60 mg Documented by: Gabapentin (Neurontin) 600 mg PO BID [facility] Last Admin: 09/25/19 21:28 Dose: 600 mg Documented by: Sodium Chloride () 1,000 mls @ 100 mls/hr IV .Q10H [facility] Last Admin: 09/26/19 02:24 Dose: 100 mls/hr Documented by: Magnesium Hydroxide (Milk Of Magnesia) 30 ml PO DAILY PRN PRN PRN Reason: Constipation Melatonin (Melatonin) 3 mg PO QHS PRN PRN PRN Reason: INSOMNIA Nutritional Formula (Lactose Free) (Ensure Enlive) 120 ml PO 4X/DAY [facility] Last Admin: 09/25/19 21:27 Dose: Not Given Documented by: Ondansetron HCl (Zofran) 4 mg IV Q8H PRN PRN PRN Reason: NAUSEA/VOMITING Pantoprazole Sodium (Protonix) 40 mg PO DAILY [facility] Last Admin: 09/25/19 08:03 Dose: 40 mg Documented by: Polyethylene Glycol (Miralax) 17 gm PO DAILY [facility] Last Admin: 09/25/19 08:03 Dose: 17 gm Documented by: Sodium Biphosphate/Sodium Phosphate (Fleet Enema) 1 bottle RECTAL DAILY PRN PRN PRN Reason: Constipation Sodium Chloride () 10 - 40 ml IV UD PRN PRN Reason: SALINE FLUSH Tamsulosin HCl (Flomax) 0.4 mg PO DAILY@1730 [facility] Last Admin: 09/25/19 16:53 Dose: 0.4 mg Documented by: Medical Necessity - Tobacco Use Smoking Status: Never smoker Tobacco Use: Non-smoker Assessment/Plan All Active Problems (Last Reviewed 09/24/19 @ 19:03 by Tonia Russ DO) Declining functional status (Acute) Unable to ambulate (Acute) AL (acute kidney injury) (Acute) Dehydration (Acute) PFO (patent foramen ovale) (Ruled-out) Cauda equina syndrome (Resolved) Epidural hematoma (Resolved) Hypophosphatemia (Resolved) Hypotension (Resolved) The patient is a 74 y/o F w/ PMHx: Fe Deficiency Anemia, Multiple myeloma/MDS with ongoing chemotherapy following w/ Dr. Gómez, Hx Meningioma s/p gamma knife, HLD, Anxiety and Depression, Hx CVAs (including R MCA), Hx epidural hematoma, Hx Cauda Equina Syndrome s/p epidural injection while anticoagulated, Suspected PAF, Chronic back pain following w/ Dr. Jean, stage III decubitus ulcer right buttock with recent foul-smelling discharge and periwound erythema recently started on empiric cipro w/ transition to bactrim w/ follow-up [facility] 09/22/19 evaluation with improvement who presents to the [facility] ED on 09/24/19 with worsening confusion, fatigue, malaise x 2 days prompting ED presentation. 1. Acute Encephalopathy, Suspected secondary to Medication Side Effects: Recent cipro for treatment decubitous ulcer infection, transitioned to bactrim, suspected as etiology, discontinued given improved appearance of stage III decubitus ulcer right buttock, maintain on fall precautions, continued hydration as evidence dehydration upon presentation with AL, pending UCx, Bld Cx x 2, maintained on dexamethasone which may be etiology for mild leukocytosis also. PT/OT/CM consultations for discharge planning, recent TCU discharge, will need SNF transition likely planned discharge 09/27/2019 but awaiting call back decide on facility placement specifically. 2. Acute kidney injury: Secondary to medications, dehydration. Admission BUN/Cr 25/1.31, prior baseline creatinine noted to be 0.7-0.8. Hydrated, held nephrotoxic agents, repeat 09/25/19 BUN/Cr 17/0.89-->09/26/19 BUN/Cr 10/0.71, now resolved. 3. Recent Infection stage III decubitus ulcer right buttock: Wound Cx w/ Hafnia alvei, Klebsiella pneumoniae and Staphlococcus Warneri, treated with cipro oral regimen, follow-up 09/22/19 evaluation at [facility] with improvement per report, transitioned at that time to bactrim, given improvement of region, discontinued bactrim upon presentation, likely contributed to her AL with now improvement, wound RN consulted and following, improved appearance from her prior assessments, continue dressing changes, off loading. 4. Chronic Back Pain: Following w/ pain management, history of frequent injections, unfortunate history of cauda equina following injection on anticoagulation, complicated by CVA w/ L sided hemiplegia, lumbar spine plain film with degenerative changes with left paracentral foraminal disc bulge at L3- L4 resulting in moderate foraminal narrowing with no acute osseous process, L1- S1 posterior laminectomy changes with no evidence of large fluid collection. 5. Multiple myeloma/MDS: Patient previously on chemotherapy on Revlimid, no longer on regimen per list, following w/ Dr. Gómez, maintained on therapeutic lovenox given high risk but no history of VTE but as noted CVA with suspected underlying PAF. 6. Hx CVAs w/ Suspected Underlying PAF, Hx Epidural Hematoma, Hx Cauda Equina s/p injection while on anticoagulation: s/p most recent R MCA CVA 01/2019 with chronic L sided hemiplegia, maintained with chronic indwelling catheter, complicated by decubitous ulcers as noted, We will maintain on baby asa, therapeutic Lovenox, statin, regimen. UCx pending, UA not severe appearing and consistent with history of chronic botello. Maintained on flomax. 7. Hx Meningioma: s/p gamma knife, CT head w/ stable appearing meningioma, following w/ Dr. Gómez. 8. Anxiety and depression: Continue patient home wellbutrin regimen. 9. Hyperlipidemia: Continue home statin regimen. 10. DVT prophylaxis: SCDs, therapeutic Lovenox. Code Visit Inpatient E&M: 47302 Subs Hosp L2
[2019-09-26 06:46] LABS: Absolute Lymphocyte Count 1.05 X10^3/uL (0.83-4.51); Absolute Neutrophil Count 5.6 X10^3/uL (2.0-7.7); Basophil# 0.03 X10^3/uL; Basophil% 0.3 % (0-1); Eosinophil# 0.19 X10^3/uL; Hematocrit 30.7 % (37-47); Hemoglobin 9.7 g/dL (12.0-15.0); Lymphocyte # 1.05 X10^3/ul (4.0); Lymphocyte % 11.2 % (19-41); Mean Corp Hgb Conc 31.6 g/dL (32-36); Mean Corpuscular Hgb 33.8 pg (27.0-32.0); Mean Platelet Vol. 11.6 fl (6.2-12.0); Monocyte# 2.45 X10^3/uL; Monocyte% 26.2 % (0-10); NRBC Flagged by Analyzer 0 % (0-5); Neutrophil # 5.55 X10^3/uL (2.7-7.7); Neutrophil % 59.6 % (47-70); POSITIVE DIFFERENTIAL YES; Platelet Count 163 K/mm3 (150-450); RBC Distribution Width CV 14.4 % (11.6-14.6); RBC Distribution Width SD 56.7 fl (35.1-43.9); Red Blood Count 2.87 M/mm3 (4.2-5.4); White Blood Count 9.3 K/mm3 (4.4-11.0)
[2019-09-26 06:50] LABS: Differential Indicated SCAN CRITERIA MET
[2019-09-26 07:10] LABS: Anion Gap 3 (5-15); BUN 10 mg/dL (7-18); Calcium,Total 8.2 mg/dL (8.5-10.1); Chloride 110 mmol/L (98-107); Creatinine, Serum 0.71 mg/dL (0.55-1.02); EST Glomerular Filtration Rate 85 mL/min (>60); Est Glom Filt Rate - Afr Amer 103 mL/min (>60); Estimated Creatinine Clearance 40.21 ml/min; Glucose 96 mg/dL (74-106); Potassium 4.3 mmol/L (3.5-5.1); Sodium Level 138 mmol/L (136-145)
[2019-09-26 07:38] VITALS: O2SAT 96
[2019-09-26 07:43] LABS: Hypochromasia 1+; Macrocytosis 1+; Platelet Estimate ADEQUATE (ADEQ)
[2019-09-26 07:55] VITALS: BP 123/49; PULSE 108; RESP 16; TEMP 36.6; O2SAT 94
[2019-09-26] MEDS: Gabapentin 600 MG Tablet PO (09:13)
[2019-09-26] MEDS: Pantoprazole Sodium 40 MG Tablet PO (09:13)
[2019-09-26] MEDS: Calcium Carbonate 500 MG Tablet PO ×2 (09:13→17:23)
[2019-09-26] MEDS: buPROPion (SR) 150 MG Tablet.SA PO (09:14)
[2019-09-26] MEDS: Acyclovir 200 MG Capsule 400 MG PO (09:14)
--- NOTE | 2019-09-26 09:34 | CASEMGMT ---
Social Work Note SW hasn't received call from pt's yet regarding discharge plan. Per notes, pt's was planning on coming in today. SW asked RN to let this worker know when pt's arrives so this worker can discuss discharge plans. RN states she will do so. Plan: SW waiting for call back from pt's to discuss discharge plans Hayley Valente GEOSPATIAL INFORMATION TECHNOLOGIST, DESKTOP SUPPORT ASSOCIATE
[2019-09-26 10:17] VITALS: BP 109/71; PULSE 101; RESP 18; TEMP 36.9; O2SAT 96
--- NOTE | 2019-09-26 11:07 | CASEMGMT ---
Addendum entered by Hayley Valente 09/26/19 12:43: Pt's called into [facility] and spoke with RN who states pt's first choice for SNF is TCU. CHELA placed a call to pt's Jerod and let message that this worker had called TCU today and they are able to accept pt today and pt will be discharged to TCU today. SW in to speak with pt and updated her that pt's had called in and requested TCU as well and pt is able to discharge to TCU today. Pt agreeable to TCU. SW spoke with physician to update. Plan: TCU today Addendum entered by Hayley Valente 09/26/19 11:55: SW received call from María Elena with TCU/RU stating pt doesn't need three midnight stay to return to TCU and could return today if medically ready. María Elena states it has been within 30 days since pt discharged from TCU and came back to [facility] so they are able to use pt's first admission to the hospital that she was at to get skilled to go to TCU. SW will attempt to either call pt's or wait to see if pt's arrives to [facility] to confirm plans. Original Note: Social Work Note Per progress notes, pt is more alert and orientated and less confused. CHELA met with pt to discuss discharge plans. Pt was able to answer questions appropriately. Pt states that she lives with her in a 1.5 story home. Pt states there are two steps to enter the back porch and then one step to enter the back door. DME include walker and wheelchair. Pt confirms that she was recently at [facility] and was there for 12 weeks (07/12/2019-09/10/2019) and her and her decided to try and go home. Pt states when she discharged from TCU she was moving well and her assisted minimally. Pt states she went home and became weak and was unable to move around by herself. Pt states that she still feels weak and that she needs to go to SNF again. CHELA informed pt that she is in her copays days however so Medicare pays 80% with a 20% copay but typically a secondary insurance picks up the copay. SW provided pt with list of SNF that accept her insurance. Pt states she would like to review list with her once he arrives to [facility]. Pt states her had appointments this morning but should be at [facility] later today. SW informed pt that this worker is on floor until about 4:00pm and will be available. Pt states she would be agreeable to returning to TCU if they have bed availability. Pt states I know all of the workers over there now since I was there for 12 weeks. SW informed pt that this worker can call TCU but also asked about plans after TCU. Pt states she hopes to return home again. SW placed a call to referral line and provided referral. María Elena states she should have a bed available tomorrow for pt. Plan: SNF. Pt state she would like this worker come back when her arrives to [facility] later today to confirm plans. Hayley Valente CLIENT DIRECTOR, DANCE PROFESSOR
--- NOTE | 2019-09-26 12:41 | PCM.TXEXTCAR ---
- Diet 09/24/19 18:37 Diet: Regular diet with Neil BID supplementation Food consistency:: Regular Liquid Consistency:: Regular/Thin Is pt able to select menu?: No - Routine Orders/Code Status Enema Type: Fleetz Enema Frequency: Daily PRN Suppository Type: Dulcolax 10mg Suppository Frequency: Daily PRN Bentley Catheter Size: 16 Change Bentley Catheter: per facility protocol, changed during admission. Routine Lab Work: - - Repeat CBC, BMP within 1 week Code Status: Full Code - Wound(s) Rt Buttocks Wound Type: Pressure Injury Dressing Change: Cleanse wound and periwound with NS, pat dry and place aquacel AG, cover with dressing and secure as needed with medipore tape. right upper buttock Wound Type: Pressure Injury Dressing Change: Cleanse wound and periwound with NS, pat dry and place aquacel AG, cover with dressing and secure as needed with medipore tape. - Suggestions for Active Care Change Position every (hours): 2 Hours to sit in a chair: 6 Times a day to sit in chair: 3 - Therapies Weight Bearing: Full weight bearing Physical Therapy: Eval and Treat Occupational Therapy: Eval and Treat - Allergies/Procedures Done in Hospital Allergies/Adverse Reactions: Allergies morphine Adverse Reaction (Severe, Verified 09/24/19 14:47) Nausea Procedures: None - Type of Care/Length of Stay Estimated LOS: Convalescent Care Less Than 30 days Type of Care Needed: Skilled Rehab Potential: Good Prognosis: Good - Additional Orders/Day of Discharge Additional Orders: (1) Position changes q 2 hours. (2) Fall and aspiration precautions. (3) IS 10x/hr 7a-7p. (4) Continue right buttock dressing changes per wound care as noted daily. (5) Use barrier cream and offloading aggressively as needed H&P will serve as current which was dated: 09/24/19 Day of Discharge: 09/26/19 - Dietary and Speech Recommendations Dietitian Recommendations/Changes: Rec d/c ONS medpass per pt request and dislike. Rec liberalize diet to Regular d/t s/s of malnutrition. Rec Neil bid to help w/ wound healing - Follow Up Care Primary Care Physician: Augusta Wilson DO [Primary Care Provider] - Please follow up with your Primary Care Physician in: Follow-up within 1-2 days TCU discharge. Please Follow Up With: Wound Care Center When: Please assure appointment made with wound care center at discharge.
--- NOTE | 2019-09-26 12:50 | PCM.DC.SUM ---
Discharge Date and Diagnosis - Problem List Patient Problems: Active and Suspected Problems (Last Reviewed 09/24/19 @ 19:03 by Tonia Russ DO) Declining functional status (Acute) Unable to ambulate (Acute) AL (acute kidney injury) (Acute) Dehydration (Acute) Adverse drug effect (Suspected) suspect tremoring, confusion, anxiety due to antibiotic......Cipro + Bactrim Date of Admission: 09/24/19 Date of Discharge: 09/26/19 - Primary Discharge Diagnosis Active and Suspected Problems (Last Reviewed 09/24/19 @ 19:03 by Tonia Russ DO) 1. Acute Encephalopathy, Suspected secondary to Medication Side Effects 2. Acute kidney injury, Secondary to medications, dehydration 3. Recent Infection stage III decubitus ulcer right buttock 4. Chronic Back Pain 5. Multiple myeloma/MDS 6. Hx CVAs w/ Suspected Underlying PAF, Hx Epidural Hematoma, Hx Cauda Equina s/p injection while on anticoagulation 7. Hx Meningioma s/p gamma knife 8. Anxiety and depression 9. 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 Gómez for tx of Multiple Myeloma HLD (hyperlipidemia) (Chronic) Anxiety and depression (Chronic) Debility (Chronic) Essential tremor (Chronic) Low back pain (Chronic) Vascular dementia (Chronic) Hypertension (Chronic) Neuropathic pain (Chronic) Left hemiparesis (Chronic) Anxiety (Chronic) Pressure ulcer of right buttock, stage 3 (Chronic) Urinary incontinence (Chronic) Chronic indwelling Bentley catheter (Chronic) Chronic anticoagulation (Chronic) on therapeutic Lovenox Cerebrovascular disease (Chronic) Macrocytosis (Chronic) MDS (myelodysplastic syndrome), low grade (Chronic) Myeloma (Chronic) Lung nodule (Chronic) Left upper lobe, May 2018 Liver lesion, right lobe (Chronic) Negative biopsy for malignancy June 29, 2018 Anemia (Chronic) Cognitive dysfunction (Chronic) Meningioma (Chronic) Hospital Course and Treatment Consultations 09/25/19 08:37 Consult: Onc/Wound/lawn service supervisor Routine Comment: Operations: None Procedures: EKG Summary of Care Provided: The patient is a 74 y/o F w/ PMHx: Fe Deficiency Anemia, Multiple myeloma/MDS with ongoing chemotherapy following w/ Dr. Gómez, Hx Meningioma s/p gamma knife, HLD, Anxiety and Depression, Hx CVAs (including R MCA), Hx epidural hematoma, Hx Cauda Equina Syndrome s/p epidural injection while anticoagulated, Suspected PAF, Chronic back pain following w/ Dr. Jean, stage III decubitus ulcer right buttock with recent foul-smelling discharge and periwound erythema recently started on empiric cipro w/ transition to bactrim w/ follow-up [facility] 09/22/19 evaluation with improvement who presented to the [facility] ED on 09/24/19 with worsening confusion, fatigue, malaise x 2 days prompting ED presentation. Acute encephalopathy, suspected secondary to medication side effects w/ noted recent cipro for treatment decubitous ulcer infection, transitioned to bactrim, which was discontinued given improved appearance of stage III decubitus ulcer right buttock, maintained on fall precautions, continued hydration as evidence dehydration upon presentation with AL, maintained on dexamethasone which may be etiology for mild leukocytosis also. During admission, noted AL secondary to likely medications, dehydration. Admission BUN/Cr 25/1.31, prior baseline creatinine noted to be 0.7-0.8. Hydrated, held nephrotoxic agents, repeat 09/25/19 BUN/Cr 17/0.89-->09/26/19 BUN/Cr 10/0.71, resolved. Also of note recent Infection stage III decubitus ulcer right buttock w/ recent wound Cx w/ Hafnia alvei, Klebsiella pneumoniae and Staphlococcus Warneri, treated with cipro oral regimen, follow-up 09/22/19 evaluation at [facility] with improvement per report, transitioned at that time to bactrim, given improvement of region, discontinued bactrim upon presentation, likely contributed to her AL with now improvement, wound RN consulted and following, improved appearance from her prior assessments, continued dressing changes, off loading. PT/OT/CM consultation for discharge planning with clearance for transition back to TCU. Patient Problems: Active and Suspected Problems (Last Reviewed 09/24/19 @ 19:03 by Tonia Russ DO) Declining functional status (Acute) Unable to ambulate (Acute) AL (acute kidney injury) (Acute) Dehydration (Acute) Adverse drug effect (Suspected) suspect tremoring, confusion, anxiety due to antibiotic......Cipro + Bactrim - Physical Exam Vitals/I&O's: Vital Signs Temp Pulse Resp BP Pulse Ox 98.4 F 101 H 18 109/71 96 09/26/19 10:17 09/26/19 10:17 09/26/19 10:17 09/26/19 10:17 09/26/19 10:17 Oxygen Delivery Method Room Air Weight: 131 lb 2.801 oz Body Mass Index (BMI) 23.2 Finger Stick Blood Glucose 101 Intake and Output for Last 24 Hours 09/24/19 09/25/19 09/26/19 23:59 23:59 23:59 Intake Total 587.5 / 1087.5 2700 / 2800 2228.33 / 2228.33 Output Total 1150 / 1700 1950 / 1950 Balance 587.5 / 837.5 1550 / 1100 278.33 / 278.33 Microbiology Past 72 Hours 09/24/19 15:50 Urine Catheter - Bentley Urine Culture - Preliminary Culture exhibits no growth. 09/24/19 15:35 Blood Culture (Wb) - Right Hand Blood Culture - Preliminary No growth in 48 hours. 09/24/19 15:30 Blood Culture (Wb) - Anticubital Left Blood Culture - Preliminary No growth in 48 hours. Laboratory Results 09/26/19 06:24: WBC 9.3, RBC 2.87 L, Hgb 9.7 L, Hct 30.7 L, MCV 107.0 H, MCH 33.8 H, MCHC 31.6 L, RDW Std Deviation 56.7 H, RDW Coeff of Moriah 14.4, Plt Count 163, MPV 11.6, Immature Gran % (Auto) 0.700, Neut % (Auto) 59.6, Lymph % (Auto) 11.2 L, [place] % (Auto) 26.2 H, Eos % (Auto) 2.0, Baso % (Auto) 0.3, Absolute Neuts (auto) 5.6, Absolute Lymphs (auto) 1.05, Nucleated RBC % 0, Platelet Estimate ADEQUATE, Hypochromasia 1+, Macrocytosis 1+ 09/26/19 06:24: Sodium 138, Potassium 4.3, Chloride 110 H, Carbon Dioxide 25.0, Anion Gap 3 L, BUN 10, Creatinine 0.71, Estim Creat Clear Calc 40.21, Est GFR (MDRD) Af Amer 103, Est GFR (MDRD) Non-Af 85, BUN/Creatinine Ratio 14.0, Glucose 96, Calcium 8.2 L Current Medications Acetaminophen (Tylenol) 650 mg PO Q6H PRN PRN PRN Reason: Pain Score 1-3/Temp > 100.7 F Acyclovir (Zovirax) 400 mg PO BID [facility] Last Admin: 09/26/19 09:14 Dose: 400 mg Documented by: Al Hydroxide/Mg Hydroxide (Mylanta Ii) 30 ml PO Q6H PRN PRN PRN Reason: Gastric Burning Atorvastatin Calcium (Lipitor) 80 mg PO QHS [facility] Last Admin: 09/25/19 21:28 Dose: 80 mg Documented by: Bupropion HCl (Wellbutrin Sr (150mg Tablets)) 150 mg PO BID [facility] Last Admin: 09/26/19 09:14 Dose: 150 mg Documented by: [facility] Admin: 09/26/19 09:13 Dose: 500 mg Documented by: Enoxaparin Sodium (Lovenox) 60 mg SC Q12@0600,1800 [facility] Last Admin: 09/26/19 05:32 Dose: 60 mg Documented by: Gabapentin (Neurontin) 600 mg PO BID [facility] Last Admin: 09/26/19 09:13 Dose: 600 mg Documented by: Sodium Chloride () 1,000 mls @ 100 mls/hr IV .Q10H [facility] Last Admin: 09/26/19 11:39 Dose: 100 mls/hr Documented by: Magnesium Hydroxide (Milk Of Magnesia) 30 ml PO DAILY PRN PRN PRN Reason: Constipation Melatonin (Melatonin) 3 mg PO QHS PRN PRN PRN Reason: INSOMNIA Nutritional Formula (Lactose Free) (Ensure Enlive) 120 ml PO 4X/DAY [facility] Last Admin: 09/26/19 09:13 Dose: Not Given Documented by: Ondansetron HCl (Zofran) 4 mg IV Q8H PRN PRN PRN Reason: NAUSEA/VOMITING Pantoprazole Sodium (Protonix) 40 mg PO DAILY [facility] Last Admin: 09/26/19 09:13 Dose: 40 mg Documented by: Polyethylene Glycol (Miralax) 17 gm PO DAILY [facility] Last Admin: 09/26/19 09:13 Dose: Not Given Documented by: Sodium Biphosphate/Sodium Phosphate (Fleet Enema) 1 bottle RECTAL DAILY PRN PRN PRN Reason: Constipation Sodium Chloride () 10 - 40 ml IV UD PRN PRN Reason: SALINE FLUSH Tamsulosin HCl (Flomax) 0.4 mg PO DAILY@1730 [facility] Last Admin: 09/25/19 16:53 Dose: 0.4 mg Documented by: Home Medications: Medications to take at Discharge Enoxaparin [Lovenox] 80 mg SUBCUT Q12@0600,1800 05/31/19 Acyclovir [Zovirax] 400 mg PO BID 06/28/19 Calcium Carbonate [Tums] 500 mg PO BIDCM tab 09/07/19 Gabapentin [Neurontin] 600 mg PO BIDCM PRN #60 tab 09/07/19 Pantoprazole Sodium [Protonix] 40 mg PO DAILY #30 tab 09/07/19 Tamsulosin HCl [Flomax] 0.4 mg PO DAILY@1730 #30 cap 09/07/19 buPROPion SR [Wellbutrin SR (150mg tablets)] 150 mg PO BID #60 tablet.sa 09/07/19 Atorvastatin Calcium [Lipitor] 80 mg PO QHS #30 tab 09/10/19 Cholecalciferol (Vitamin D3) [Vitamin D3] 1 cap DAILY 09/15/19 Ciprofloxacin [Cipro] 500 mg PO BID 09/22/19 Gabapentin 600 mg PO BID 09/22/19 Sulfamethoxazole/Trimethoprim [Sulfamethoxazole-Tmp Ds Tablet] 1 tab PO DAILY 09/24/19 Primary Care Physician: Augusta Wilson DO [Primary Care Provider] - Please follow up with your Primary Care Physician in: Follow-up within 1-2 days TCU discharge. Please Follow Up With: Wound Care Center When: Please assure appointment made with wound care center at discharge. Disposition: [facility] facility Minutes spent on discharge:: 35 Patient Condition:: Fair Medical Necessity - Tobacco Use Smoking Status: Never smoker Tobacco Use: Non-smoker Meaningful Use Info Meaningful Use Diagnoses (Choose all that apply): None applicable Code Visit Inpatient E&M: 44834 Disch Hosp
--- NOTE | 2019-09-26 13:39 | NURSING ---
Student nurse charting reviewed
--- NOTE | 2019-09-26 14:42 | CHAPLAIN ---
Type of Pastoral Visit _x__ Initial Visit ___ Follow-up Visit ___ On-call Visit ___ General Patient Visit ___ Spiritual Assessment ___ Family Conference ___ Bereavement ___ Rapid Response ___ Code Blue ___ Other (describe below) Pastoral Care Referral From _x__ Patient ___ Family ___ Nurse ___ Physician ___ Forestry Fire Aide ___ [employer] [place] ___ Other (describe below) Sacrament/Intervention _x__ Active listening ___ Anointing ___ Congregational ___ Bereavement ___ Communion ___ Orly exploration ___ ___ Life review _x__ Prayer ___ Reconciliation ___ Sacrament of Sick _x__ Supportive presence ___ Wedding ___ Other (describe below) Pastoral Comments
--- NOTE | 2019-09-26 15:34 | NURSING ---
report called to TCU, they report bed is not ready yet and they will call when they are ready for patient
[2019-09-26 17:00] VITALS: BP 110/53; PULSE 99; RESP 16; TEMP 36.8; O2SAT 95
[2019-09-26] MEDS: Tamsulosin HCl 0.4 MG Capsule PO (17:23)
== END 2019-09-26 18:30 | disposition skilled nursing facility (03) | DRG 91 ==
LOC: ED 17:26 → MS3 18:06
PROVIDERS: Admitting Provider Internal Medicine; Emergency Provider Emergency Medicine; PCP Family Medicine; Visit Provider Family Medicine
DX: G92 Toxic encephalopathy (principal); L89.313 Pressure ulcer of right buttock, stage 3; N17.9 Acute kidney failure, unspecified; I69.354 Hemiplegia and hemiparesis following cerebral infarction affecting left non-dominant side; C90.00 Multiple myeloma not having achieved remission; D32.0 Benign neoplasm of cerebral meninges; E78.5 Hyperlipidemia, unspecified; E86.0 Dehydration; F32.9 Major depressive disorder, single episode, unspecified; F41.9 Anxiety disorder, unspecified; G89.29 Other chronic pain; M54.9 Dorsalgia, unspecified; I48.0 Paroxysmal atrial fibrillation; T36.8X5A Adverse effect of other systemic antibiotics, initial encounter; Z86.69 Personal history of other diseases of the nervous system and sense organs; Z79.899 Other long term (current) drug therapy; R53.81 Other malaise; F01.50 Vascular dementia, unspecified severity, without behavioral disturbance, psychotic disturbance, mood disturbance, and anxiety; R32 Unspecified urinary incontinence
CPT/HCPCS: 11042; 36415; 70450; 71046; 72132; 80048; 80076; 81001; 82570; 83735; 84100; 84300; 85025; 85610; 85730; 87040; 87086; 93005; 97162; 97166; 97802; 99285; J7030; Q9967; A4216

== ENCOUNTER 2019-09-26 18:57 | Inpatient (IN) | payer MEDICARE, OTHER, SELFPAY ==
[2019-09-26 19:02] VITALS: BP 147/64; PULSE 99; RESP 18; TEMP 37.1; O2SAT 96
--- NOTE | 2019-09-26 19:03 | NURSING ---
PT ARRIVED TO FLOOR AT 1850 BY WHEELCHAIR FROM MED SURG.
--- NOTE | 2019-09-26 19:30 | HP.PCM_ITS ---
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 (9) HLD (hyperlipidemia) Status: Chronic Qualifiers: (10) Debility Status: Chronic (11) Essential tremor Status: Chronic (12) Vascular dementia Status: Chronic (13) Hypertension Status: Chronic Qualifiers: (14) Neuropathic pain Status: Chronic (15) Left hemiparesis Status: Chronic (16) Anxiety Status: Chronic (17) Pressure ulcer of right buttock, stage 3 Status: Chronic (18) AL (acute kidney injury) Status: Acute (19) Dehydration Status: Acute (20) Myeloma Status: Chronic Qualifiers: (21) Meningioma Status: Chronic History of Present Illness Date of Admission: 09/26/19 Chief Complaint: Here for rehabilitation, strengthening, prior to discharge home with . The patient is a 74 year old Female with below past medical history presented to [facility] Emergency Department with confusion. 09/24/2019 CT brain shows no acute findings, stable meningioma. 09/24/2019 Chest X-ray shows chronic interstitial markings. 09/24/2019 CT lumbar spine shows L3-4 Left foraminal narrowing, L5-S1 posterior laminectomy changes. Recent discharge from TCU 2 weeks prior, was ambulating with walker. Progressive decline, weakness of legs, unable to bear weight. IV Fluids given for dehydration on bloodwork. Already on Bactrim for urinary tract infection, on Cipro for infected pressure ulcer right buttock. Urine, blood cultures sent. 09/24/2019 Admit to Hospital. Weakness, confusion, tremor secondary to adverse reaction from Cipro, Bactrim. Stop Cipro, Stop Bactrim. IV Fluids for acute kidney injury. 09/25/2019 Encephalopathy improved. Acute kidney injury improved with IV fluids. Wound RN consulted for right buttock pressure ulcer. 09/26/2019 Confusion resolved. Acute Kidney Injury resolved. 09/26/2019 Admit to TCU with debility, here for rehabilitation, strengthening, prior to discharge home with . 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 Gómez for tx of Multiple Myeloma HLD (hyperlipidemia) (Chronic) Anxiety and depression (Chronic) Debility (Chronic) Essential tremor (Chronic) Low back pain (Chronic) Vascular dementia (Chronic) Hypertension (Chronic) Neuropathic pain (Chronic) Left hemiparesis (Chronic) Anxiety (Chronic) Pressure ulcer of right buttock, stage 3 (Chronic) Urinary incontinence (Chronic) Chronic indwelling Botello catheter (Chronic) Chronic anticoagulation (Chronic) on therapeutic Lovenox Epidural hematoma (Chronic) Cauda equina syndrome (Chronic) Myelodysplasia (myelodysplastic syndrome) (Chronic) Depression (Chronic) Cerebrovascular disease (Chronic) Macrocytosis (Chronic) MDS (myelodysplastic syndrome), low grade (Chronic) Myeloma (Chronic) Lung nodule (Chronic) Left upper lobe, May 2018 Liver lesion, right lobe (Chronic) Negative biopsy for malignancy June 29, 2018 Anemia (Chronic) Cognitive dysfunction (Chronic) Meningioma (Chronic) Medical History: Medical History (Last Reviewed 09/24/19 @ 19:03 by Tonia Russ DO) Cellulitis L03.90 left eye -2018 Meningioma D32.9 Gamma knife at [facility] ~2000 Osteopenia M85.80 Stroke I63.9 X2 - HOSPITALIZATION FOR 5 DAYS Allergies morphine Adverse Reaction (Severe, Verified 09/24/19 14:47) Nausea Home Medications: Ambulatory Orders Medication Instructions Recorded Enoxaparin [Lovenox] 80 mg SUBCUT Q12@0600,1800 05/31/19 Acyclovir [Zovirax] 400 mg PO BID 06/28/19 Calcium Carbonate [Tums] 500 mg PO BIDCM tab 09/07/19 Pantoprazole Sodium [Protonix] 40 mg PO DAILY #30 tab 09/07/19 Tamsulosin HCl [Flomax] 0.4 mg PO DAILY@1730 #30 cap 09/07/19 buPROPion SR [Wellbutrin SR (150mg 150 mg PO BID #60 tablet.sa 09/07/19 tablets)] Atorvastatin Calcium [Lipitor] 80 mg PO QHS #30 tab 09/10/19 Cholecalciferol (Vitamin D3) 1 cap DAILY 09/15/19 [Vitamin D3] Gabapentin 600 mg PO BID 09/22/19 Acetaminophen [Tylenol Tablet] 650 mg PO Q6H PRN PRN tab 09/26/19 Ensure Enlive 120 ml PO 4X/DAY liquid 09/26/19 Mag Hydrox/Al Hydrox/Simeth 30 ml PO Q6H PRN PRN udc 09/26/19 [Mylanta II] Melatonin 3 mg PO QHS PRN PRN tab 09/26/19 Polyethylene Glycol 3350 [Miralax] 17 gm PO DAILY packet 09/26/19 Surgical History: Surgical History (Last Reviewed 09/24/19 @ 19:03 by Tonia Russ DO) History of cholecystectomy Z90.49 History of hysterectomy Z90.710 Surgical History: cholecystectomy, hysterectomy, tonsillectomy, - - Gamma knife meningioma. Surgery to evacuate a very large Lumbar hematoma causing cauda equina S. 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 Paternal Family History: Family History (Last Reviewed 09/24/19 @ 19:04 by Tonia Russ DO) Mother Breast cancer Sister Breast cancer Aunt Breast cancer Daughter History of malignant melanoma Father Brain cancer Brother Lung cancer History Items: Cancer - Father with history of brain cancer. Review of Systems Constitutional: Denies: Chills, Fever, Weight Change HEENT: Denies: Head Aches, Sinus Congestion, Sinus Drainage Cardiovascular: Denies: Chest Pain, Palpitations Respiratory: Denies: Cough, Shortness of breath at rest, Sputum production Gastrointestinal: Denies: Abdominal Pain, Nausea, Vomiting Genitourinary: Denies: Dysuria Musculoskeletal: Denies: Joint Pain, Joint Tenderness Skin: Denies: Rash, Wounds Neurological: Denies: Numbness, Tingling, Focal weakness Psychiatric: Denies: Anxiety, Depression, Homicidal Ideations, Suicidal Ideations Hematologic/ Lymphatic: Denies: Easy Bruising, Easy Bleeding VTE Information - Inpt Only VTE Present on Admission: No VTE Mechan Device Prophylaxis: Knee High RICKIE Hose VTE Pharm Prophylaxis ordered?: Yes Patient Problems: Active and Suspected Problems (Last Reviewed 09/24/19 @ 19:03 by Tonia Russ DO) Encephalopathy (Acute) Weakness of both legs (Acute) UTI (urinary tract infection) (Acute) - Physical Exam Vitals/I&O's: Body Mass Index (BMI) 23.2 Finger Stick Blood Glucose 101 General: Alert, Oriented x3, Cooperative HEENT: Atraumatic, PERRLA, EOMI, Normocephalic Neck: Supple, No JVD, Negative Carotid Bruits Lungs: Clear to auscultation, Normal air movement Cardiovascular: Regular rate, No murmurs Abdomen: Bowel Sounds Present, Soft, Non Tender, - - Indwelling Botello Catheter. Extremities: No edema, Capillary Refill Less than 3 Seconds Skin: No rashes, Ulcer/ Wound - Right buttock pressure ulcer per wound RN. Musculoskeletal: No Tenderness to Palpation of Joints or Extremities Neurological: Cranial nerves II-XII grossly intact, - - Mild left hemiparesis. Psych/Mental Status: Normal Affect, Appropriate Assessment/Plan All Active Problems (Last Reviewed 09/24/19 @ 19:03 by Tonia Russ DO) Declining functional status (Acute) Unable to ambulate (Acute) AL (acute kidney injury) (Acute) Dehydration (Acute) Encephalopathy (Acute) Weakness of both legs (Acute) UTI (urinary tract infection) (Acute) PFO (patent foramen ovale) (Ruled-out) Cauda equina syndrome (Resolved) Epidural hematoma (Resolved) Hypophosphatemia (Resolved) Hypotension (Resolved) 74 year old female with below past medical history hospitalized for encephalopathy, weakness, tremor secondary to antibiotic adverse reaction, complicated by acute kidney injury secondary to dehydration, admitted to TCU with debility, here for rehabilitation, strengthening, prior to discharge home with . * Debility - PT/OT. * Pain - Tylenol 1000MG Q6H PRN pain (1-10) * Bowel - Miralax 17GM daily, Senna/colace 1 tablet BID, Dulcolax 10MG daily PRN. * Adult immunization - Administer Prevnar 13, Pneumovax 23, Fluzone as appropriate. * DVT prophylaxis - Not necessary, already anticoagulated. * Stroke with left hemiparesis - Lovenox 80MG SC Q12H, Failed Eliquis. * Antiviral prophylaxis - acyclovir 400MG BID. * GERD - TUMS 500MG BID. * Neuropathic pain - Gabapentin 600MG BID PRN. * GERD - Pantoprazole 40MG daily. * Urinary retention - Tamsulosin 0.4MG daily, indwelling botello catheter, attempt voiding trials TCU #3. * Depression - Bupropion 150MG twice daily. * Hyperlipidemia - High intensity Atorvastatin 80MG QHS for stroke prevention. * Vitamin D deficiency - D3 1000IU daily. * Myelodysplastic syndrome - Dr. Gómez. * Multiple Myeloma - Dr. Gómez. * Right buttock pressure ulcer, stage 3 - Consult Wound RN, hold all antibiotics.
[2019-09-26] MEDS: Gabapentin 600 MG Tablet PO (21:50)
[2019-09-26] MEDS: buPROPion (SR) 150 MG Tablet.SA PO (21:50)
[2019-09-26] MEDS: Atorvastatin Calcium 80 MG Tablet PO (21:50)
[2019-09-26] MEDS: Acyclovir 200 MG Capsule 400 MG PO (21:50)
[2019-09-26 21:54] VITALS: BMI 24.4
[2019-09-26 22:02] VITALS: BMI 24.4
[2019-09-27] MEDS: Menthol/Lanolin/Calamine/Znox 113 GM Tube 1 APPLIC TOPICAL ×2 (05:13→20:45)
[2019-09-27] MEDS: Enoxaparin 60 MG/0.6 ML Syringe SC ×2 (05:13→17:30)
[2019-09-27] MEDS: buPROPion (SR) 150 MG Tablet.SA PO ×2 (05:14→17:32)
[2019-09-27] MEDS: Pantoprazole Sodium 40 MG Tablet PO (05:14)
[2019-09-27] MEDS: Acyclovir 200 MG Capsule 400 MG PO ×2 (05:14→17:32)
[2019-09-27 05:39] LABS: Absolute Lymphocyte Count 0.96 X10^3/uL (0.83-4.51); Basophil# 0.01 X10^3/uL; Basophil% 0.2 % (0-1); Eosinophil# 0.21 X10^3/uL; Eosinophils% 3.4 % (0-5); Hematocrit 29.9 % (37-47); Hemoglobin 9.3 g/dL (12.0-15.0); Lymphocyte # 0.96 X10^3/ul (4.0); Lymphocyte % 15.5 % (19-41); Mean Corp Hgb Conc 31.1 g/dL (32-36); Mean Platelet Vol. 11.8 fl (6.2-12.0); Monocyte# 1.91 X10^3/uL; Monocyte% 30.9 % (0-10); NRBC Flagged by Analyzer 0 % (0-5); Neutrophil # 3.01 X10^3/uL (2.7-7.7); Neutrophil % 48.7 % (47-70); POSITIVE DIFFERENTIAL YES; Platelet Count 145 K/mm3 (150-450); RBC Distribution Width CV 14.3 % (11.6-14.6); RBC Distribution Width SD 54.5 fl (35.1-43.9); Red Blood Count 2.82 M/mm3 (4.2-5.4); White Blood Count 6.2 K/mm3 (4.4-11.0)
[2019-09-27 06:00] LABS: Anion Gap 4 (5-15); BUN 10 mg/dL (7-18); BUN/Creat Ratio 16.1 RATIO (10-20); Calcium,Total 8.4 mg/dL (8.5-10.1); Chloride 109 mmol/L (98-107); Creatinine, Serum 0.62 mg/dL (0.55-1.02); EST Glomerular Filtration Rate 99 mL/min (>60); Est Glom Filt Rate - Afr Amer 120 mL/min (>60); Estimated Creatinine Clearance 40.21 ml/min; Glucose 98 mg/dL (74-106); Potassium 3.8 mmol/L (3.5-5.1); Sodium Level 139 mmol/L (136-145)
[2019-09-27 06:07] LABS: Differential Comment SCANNED
[2019-09-27 06:08] LABS: Differential Indicated SCAN CRITERIA MET
[2019-09-27] MEDS: Calcium Carbonate 500 MG Tablet PO ×2 (07:54→17:30)
[2019-09-27] MEDS: Gabapentin 600 MG Tablet PO ×2 (07:54→17:30)
[2019-09-27] MEDS: Acetaminophen 500 MG Tablet 1000 MG PO (07:57)
--- NOTE | 2019-09-27 11:23 | PHA.CONS_ITS ---
<Radha Griffin - Last Filed: 09/27/19 11:23> Progress Note - Pharmacy Subjective: TCU Admission Objective: Allergies morphine Adverse Reaction (Severe, Verified 09/24/19 14:47) Nausea Current Medications Generic Name Dose Route Start Last Admin Trade Name Freq PRN Reason Stop Dose Admin Acetaminophen 1,000 mg 09/26/19 19:53 09/27/19 07:57 Tylenol PO 1,000 mg Q6H PRN Administration Pain Score 1-10/10 Acyclovir 400 mg 09/26/19 21:00 09/27/19 05:14 Zovirax PO 400 mg BID MONSERRAT Administration Al Hydroxide/Mg Hydroxide 30 ml 09/26/19 19:51 Mylanta Ii PO Q6H PRN PRN Gastric Burning Atorvastatin Calcium 80 mg 09/26/19 22:00 09/26/19 21:50 Lipitor PO 80 mg QHS MONSERRAT Administration Bisacodyl 10 mg 09/26/19 19:53 Dulcolax PO DAILY PRN Constipation Bupropion HCl 150 mg 09/26/19 21:00 09/27/19 05:14 Wellbutrin Sr (150mg Tablets) PO 150 mg BID MONSERRAT Administration Calamine/Phenol 1 applic 09/27/19 06:00 09/27/19 05:13 Calmoseptine Ointment TOPICAL 1 applicatio 0600,2200 COUNTS INCLUDE 234 BEDS AT THE [facility] Administration Protocol Calcium Carbonate 500 mg 09/27/19 08:00 09/27/19 07:54 Tums PO 500 mg BIDCM COUNTS INCLUDE 234 BEDS AT THE [facility] Administration Cholecalciferol 1,000 unit 09/27/19 08:00 09/27/19 07:54 Vitamin D PO 1,000 unit DAILY@0800 COUNTS INCLUDE 234 BEDS AT THE [facility] Administration Enoxaparin Sodium 60 mg 09/27/19 06:00 09/27/19 05:13 Lovenox SC 60 mg Q12@0600,1800 COUNTS INCLUDE 234 BEDS AT THE [facility] Administration Gabapentin 600 mg 09/26/19 21:00 09/27/19 07:54 Neurontin PO 600 mg BIDCM MONSERRAT Administration Melatonin 3 mg 09/26/19 19:51 Melatonin PO QHS PRN PRN INSOMNIA Multi-Ingredient Cream 1 applic 09/27/19 22:00 Eucerin TOPICAL QHS COUNTS INCLUDE 234 BEDS AT THE [facility] Protocol Nutritional Formula 1 packet 09/27/19 08:00 09/27/19 07:54 Neil - Talbot Flavor PO 1 packet BIDCM MONSERRAT Administration Nutritional Formula (Lactose Free) 120 ml 09/26/19 22:00 09/27/19 05:09 Ensure Enlive PO Not Given 4X/DAY MONSERRAT Pantoprazole Sodium 40 mg 09/27/19 06:00 09/27/19 05:14 Protonix PO 40 mg DAILY MONSERRAT Administration Polyethylene Glycol 17 gm 09/27/19 06:00 09/27/19 05:09 Miralax PO Not Given DAILY MONSERRAT Senna/Docusate Sodium 1 tablet 09/27/19 06:00 09/27/19 05:10 Senokot-S, Kassy-Colace PO Not Given BID MONSERRAT Tamsulosin HCl 0.4 mg 09/27/19 17:30 Flomax PO DAILY@1730 MONSERRAT Tuberculin PPD 5 tu 10/04/19 10:00 Tubersol, Aplisol, Ppd ID 10/04/19 10:01 X1 ONE Problem List (Last Reviewed 09/24/19 @ 19:03 by Tonia Russ DO) Encephalopathy (Acute) Weakness of both legs (Acute) UTI (urinary tract infection) (Acute) Epidural hematoma (Chronic) Cauda equina syndrome (Chronic) Myelodysplasia (myelodysplastic syndrome) (Chronic) Depression (Chronic) Vital Signs Temp Pulse Resp BP Pulse Ox 98.7 F 99 18 147/64 H 96 09/26/19 19:02 09/26/19 19:02 09/26/19 19:02 09/26/19 19:02 09/26/19 19:02 Oxygen Delivery Method Room Air Weight: 62.596 kg Body Mass Index (BMI) 24.4 Finger Stick Blood Glucose 101 Sodium 139 mmol/L (136-145) 09/27/19 05:10 Potassium 3.8 mmol/L (3.5-5.1) 09/27/19 05:10 Chloride 109 mmol/L (98-107) H 09/27/19 05:10 Carbon Dioxide 26.0 mmol/L (21.0-32.0) 09/27/19 05:10 Anion Gap 4 (5-15) L 09/27/19 05:10 BUN 10 mg/dL (7-18) 09/27/19 05:10 Creatinine 0.62 mg/dL (0.55-1.02) 09/27/19 05:10 Est GFR (MDRD) Af Amer 120 mL/min (>60) 09/27/19 05:10 Est GFR (MDRD) Non-Af 99 mL/min (>60) 09/27/19 05:10 BUN/Creatinine Ratio 16.1 RATIO (-20) 09/27/19 05:10 Glucose 98 mg/dL (74-106) 09/27/19 05:10 Assessment/Plan: 1. Pain: acetaminophen 1000mg PO Q6H PRN pain (-06/08). Please continue to monitor for pain and PRN usage. 2. Stroke with left hemiparesis/hyperlipidemia: enoxaparin 60mg SC Q12H and atorvastatin 80mg PO QHS. Please continue to monitor for S/S of bleeding, platelets, renal function and platelets. Lipid panel and LFTs in chart within the last year. Please continue to monitor for muscle pain. 3. Antiviral prophylaxis: acyclovir 400mg PO BID. Please continue to monitor renal function. 4. GERD: calcium carbonate 500mg PO BIDCM and Mylanta II 30mL PO Q6H PRN gastric burning. Please continue to monitor for GERD, PRN usage and calcium levels. 5. Neuropathic pain: gabapentin 600mg PO BIDCM. Please continue to monitor for increased neuropathic pain, confusion, and renal function. 6. GERD: pantoprazole 40mg PO daily. Please continue to monitor for GERD. 7. Urinary retention: tamsulosin 0.4mg PO daily. Please continue to monitor for urinary retention and hypotension. *8. Vitamin D deficiency: cholecalciferol 1000units PO DAILYCM. Please consider ordering a vitamin D level now and then annually as clinically appropriate. 9. Insomnia: melatonin 3mg PO QHS PRN insomnia. Please continue to monitor for insomnia. Psychotropic Medications: *1. Depression: bupropion SR 150mg PO BID. Please consider GDR by 02/2020 if clinically appropriate. Unnecessary Medications: None Bowel Regimen: Miralax 17gm PO daily, senna/docusate 1T PO BID, and bisacodyl 10mg PO daily PRN constipation. Please continue to monitor for constipation and PRN usage. Date of Note:: 09/27/19 - Provider Comments Provider responsibility: Provider responsible to enter orders to implement recommendations <Jovanni Steven Chi - Last Filed: 09/27/19 16:40> Progress Note - Pharmacy Subjective: [] Objective: Allergies morphine Adverse Reaction (Severe, Verified 09/24/19 14:47) Nausea Current Medications Generic Name Dose Route Start Last Admin Trade Name Freq PRN Reason Stop Dose Admin Acetaminophen 1,000 mg 09/26/19 19:53 09/27/19 07:57 Tylenol PO 1,000 mg Q6H PRN Administration Pain Score 1-10/10 Acyclovir 400 mg 09/26/19 21:00 09/27/19 05:14 Zovirax PO 400 mg BID MONSERRAT Administration Al Hydroxide/Mg Hydroxide 30 ml 09/26/19 19:51 Mylanta Ii PO Q6H PRN PRN Gastric Burning Atorvastatin Calcium 80 mg 09/26/19 22:00 09/26/19 21:50 Lipitor PO 80 mg QHS COUNTS INCLUDE 234 BEDS AT THE [facility] Administration Bisacodyl 10 mg 09/26/19 19:53 Dulcolax PO DAILY PRN Constipation Bupropion HCl 150 mg 09/26/19 21:00 09/27/19 05:14 Wellbutrin Sr (150mg Tablets) PO 150 mg BID COUNTS INCLUDE 234 BEDS AT THE [facility] Administration Calamine/Phenol 1 applic 09/27/19 06:00 09/27/19 05:13 Calmoseptine Ointment TOPICAL 1 applicatio 0600,2200 COUNTS INCLUDE 234 BEDS AT [facility] Administration Protocol Calcium Carbonate 500 mg 09/27/19 08:00 09/27/19 07:54 Tums PO 500 mg BIDCM COUNTS INCLUDE 234 BEDS AT [facility] Administration Cholecalciferol 1,000 unit 09/27/19 08:00 09/27/19 07:54 Vitamin D PO 1,000 unit DAILY@0800 COUNTS INCLUDE 234 BEDS AT [facility] Administration Enoxaparin Sodium 60 mg 09/27/19 06:00 09/27/19 05:13 Lovenox SC 60 mg Q12@0600,1800 COUNTS INCLUDE 234 BEDS AT [facility] Administration Gabapentin 600 mg 09/26/19 21:00 09/27/19 07:54 Neurontin PO 600 mg BIDCM COUNTS INCLUDE 234 BEDS AT [facility] Administration Melatonin 3 mg 09/26/19 19:51 Melatonin PO QHS PRN PRN INSOMNIA Multi-Ingredient Cream 1 applic 09/27/19 22:00 Eucerin TOPICAL QHS COUNTS INCLUDE 234 BEDS AT [facility] Protocol Nutritional Formula 1 packet 09/27/19 08:00 09/27/19 07:54 Neil - Talbot Flavor PO 1 packet BIDCM COUNTS INCLUDE 234 BEDS AT [facility] Administration Pantoprazole Sodium 40 mg 09/27/19 06:00 09/27/19 05:14 Protonix PO 40 mg DAILY COUNTS INCLUDE 234 BEDS AT [facility] Administration Polyethylene Glycol 17 gm 09/27/19 06:00 09/27/19 05:09 Miralax PO Not Given DAILY COUNTS INCLUDE 234 BEDS AT [facility] Senna/Docusate Sodium 1 tablet 09/27/19 06:00 09/27/19 05:10 Senokot-S, Kassy-Colace PO Not Given BID COUNTS INCLUDE 234 BEDS AT THE [facility] Tamsulosin HCl 0.4 mg 09/27/19 17:30 Flomax PO DAILY@1730 COUNTS INCLUDE 234 BEDS AT THE [facility] Tuberculin PPD 5 tu 10/04/19 10:00 Tubersol, Aplisol, Ppd ID 10/04/19 10:01 X1 ONE Problem List (Last Reviewed 09/24/19 @ 19:03 by Tonia Russ DO) Encephalopathy (Acute) Weakness of both legs (Acute) UTI (urinary tract infection) (Acute) Epidural hematoma (Chronic) Cauda equina syndrome (Chronic) Myelodysplasia (myelodysplastic syndrome) (Chronic) Depression (Chronic) Vital Signs Temp Pulse Resp BP Pulse Ox 97.6 F L 92 18 109/60 94 09/27/19 16:00 09/27/19 16:00 09/27/19 16:00 09/27/19 16:00 09/27/19 16:00 Oxygen Delivery Method Room Air Weight: 62.596 kg Body Mass Index (BMI) 24.4 Finger Stick Blood Glucose 101 Sodium 139 mmol/L (136-145) 09/27/19 05:10 Potassium 3.8 mmol/L (3.5-5.1) 09/27/19 05:10 Chloride 109 mmol/L (98-107) H 09/27/19 05:10 Carbon Dioxide 26.0 mmol/L (21.0-32.0) 09/27/19 05:10 Anion Gap 4 (5-15) L 09/27/19 05:10 BUN 10 mg/dL (7-18) 09/27/19 05:10 Creatinine 0.62 mg/dL (0.55-1.02) 09/27/19 05:10 Est GFR (MDRD) Af Amer 120 mL/min (>60) 09/27/19 05:10 Est GFR (MDRD) Non-Af 99 mL/min (>60) 09/27/19 05:10 BUN/Creatinine Ratio 16.1 RATIO (10-20) 09/27/19 05:10 Glucose 98 mg/dL (74-106) 09/27/19 05:10 Assessment/Plan: Psychotropic Medications: Unnecessary Medications: Bowel Regimen: - Provider Comments Provider responsibility: Provider responsible to enter orders to implement recommendations Provider Comments to Recommendations by Pharmacy: Agree
[2019-09-27] MEDS: Tuberculin,Purif.prot.deriv. 50 TU/ML Vial 5 ML ID (11:48)
[2019-09-27 16:00] VITALS: BP 109/60; PULSE 92; RESP 18; TEMP 36.4; O2SAT 94
--- NOTE | 2019-09-27 17:11 | DCINST_ITS ---
- Discharge Diagnoses Current Active Problems: Current Active and Chronic Problems (Last Reviewed 09/24/19 @ 19:03 by Tonia Russ DO) Encephalopathy (Acute) Weakness of both legs (Acute) UTI (urinary tract infection) (Acute) Epidural hematoma (Chronic) Cauda equina syndrome (Chronic) Myelodysplasia (myelodysplastic syndrome) (Chronic) Depression (Chronic) You will use the following diet at home:: No restrictions, Regular Your food should be the consistency of: Regular Your liquids should be the consistency of: Regular/Thin Discharge Activity: Return to Normal Activity, May Shower, Use Walker Weight Bearing Status: Weight bearing as tolerated Call your doctor if you observe: Fever of 101 or Higher, Inability to urinate, Inability to have a bowel movement, Shortness of breath, Chest pain, Uncontrolled pain Allergies/Adverse Reactions: Allergies morphine Adverse Reaction (Severe, Verified 09/24/19 14:47) Nausea Medications to take at Discharge Acyclovir [Zovirax] 400 mg PO BID 06/28/19 Pantoprazole Sodium [Protonix] 40 mg PO DAILY #30 tab 09/07/19 Atorvastatin Calcium [Lipitor] 80 mg PO QHS #30 tab 09/10/19 Cholecalciferol (Vitamin D3) [Vitamin D3] 1 cap PO DAILY@0800 09/15/19 Gabapentin 600 mg PO BID 09/22/19 Calcium Carbonate [Tums] 500 mg PO BIDCM 09/26/19 Mag Hydrox/Al Hydrox/Simeth [Mylanta II] 30 ml PO Q6H PRN PRN udc 09/26/19 Melatonin 3 mg PO QHS PRN PRN tab 09/26/19 Tamsulosin HCl [Flomax] 0.4 mg PO DAILY@1730 09/26/19 buPROPion SR [Wellbutrin SR (150mg tablets)] 150 mg PO BID 09/26/19 Acetaminophen [Tylenol] 1,000 mg PO Q6H PRN tablet 09/27/19 Enoxaparin [Lovenox] 60 mg SC Q12@0600,1800 syringe 09/27/19 Menthol/Lanolin/Calamine/Znox [Calmoseptine Ointment] 1 applic TOPICAL 0600,2200 tube 09/27/19 Mineral Oil/Petrolatum,White [Eucerin] 1 applic TOPICAL QHS jar 09/27/19 Nutritional Supplement [Neil - ORANGE FLAVOR] 1 packet PO BIDCM #60 packet 09/27/19 The following prescriptions were given: Nutritional Supplement [Neil - ORANGE FLAVOR] 1 packet PO BIDCM #60 packet Transmission Status: Pending to [facility] Primary Care Physician: Augusta Wilson DO [Primary Care Provider] - Please follow up with your Primary Care Physician in: 1 week. Test Results: Test results from this visit will be discussed in further detail at your follow- up appointment, if applicable. Please Follow Up With: Augusta Wilson DO When: After D/C from TCU Proposed Discharge Date: 10/05/19
--- NOTE | 2019-09-27 17:12 | DS.PCM_ITS ---
Discharge Date and Diagnosis - Problem List Patient Problems: Active and Suspected Problems (Last Reviewed 09/24/19 @ 19:03 by Tonia Russ DO) Encephalopathy (Acute) Weakness of both legs (Acute) UTI (urinary tract infection) (Acute) Date of Admission: 09/26/19 Date of Discharge: 10/05/19 - Primary Discharge Diagnosis Active and Suspected Problems (Last Reviewed 09/24/19 @ 19:03 by Tonia Russ DO) Encephalopathy (Acute) Weakness of both legs (Acute) UTI (urinary tract infection) (Acute) - Secondary Discharge Diagnosis Chronic Problems (Last Reviewed 09/24/19 @ 19:03 by Tonia Russ DO) Stroke (Chronic) 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 Gómez for tx of Multiple Myeloma HLD (hyperlipidemia) (Chronic) Anxiety and depression (Chronic) Debility (Chronic) Essential tremor (Chronic) Low back pain (Chronic) Vascular dementia (Chronic) Hypertension (Chronic) Neuropathic pain (Chronic) Left hemiparesis (Chronic) Anxiety (Chronic) Pressure ulcer of right buttock, stage 3 (Chronic) Urinary incontinence (Chronic) Chronic indwelling Bentley catheter (Chronic) Chronic anticoagulation (Chronic) on therapeutic Lovenox Epidural hematoma (Chronic) Cauda equina syndrome (Chronic) Myelodysplasia (myelodysplastic syndrome) (Chronic) Depression (Chronic) Cerebrovascular disease (Chronic) Macrocytosis (Chronic) MDS (myelodysplastic syndrome), low grade (Chronic) Myeloma (Chronic) Lung nodule (Chronic) Left upper lobe, May 2018 Liver lesion, right lobe (Chronic) Negative biopsy for malignancy June 29, 2018 Anemia (Chronic) Cognitive dysfunction (Chronic) Meningioma (Chronic) Hospital Course and Treatment Imaging Results: 09/26/19 19:58 Diet: Regular Diet Type of Dietary Supplement:: [place] Breakfast Labs (Last 48 Hours) 09/27/19 09/27/19 05:10 05:10 WBC 6.2 RBC 2.82 L Hgb 9.3 L Hct 29.9 L MCV 106.0 H MCH 33.0 H MCHC 31.1 L RDW Std Deviation 54.5 H RDW Coeff of [place] 14.3 Plt Count 145 L MPV 11.8 Immature Gran % (Auto) 1.300 H Neut % (Auto) 48.7 Lymph % (Auto) 15.5 L [place] % (Auto) 30.9 H Eos % (Auto) 3.4 Baso % (Auto) 0.2 Absolute Neuts (auto) 3.0 Absolute Lymphs (auto) 0.96 Nucleated RBC % 0 Differential Comment SCANNED Sodium 139 Potassium 3.8 Chloride 109 H Carbon Dioxide 26.0 Anion Gap 4 L BUN 10 Creatinine 0.62 Estim Creat Clear Calc 40.21 Est GFR (MDRD) Af Amer 120 Est GFR (MDRD) Non-Af 99 BUN/Creatinine Ratio 16.1 Glucose 98 Calcium 8.4 L Operations: None Procedures: None Summary of Care Provided: The patient is a 74 year old Female with below past medical history hospitalized for encephalopathy, weakness, tremor secondary to antibiotic adverse reaction, complicated by acute kidney injury secondary to dehydration, admitted to TCU with debility, here for rehabilitation, strengthening, prior to discharge home with . Discharge home with , [facility] for PT/OT/SN. Patient Problems: Active and Suspected Problems (Last Reviewed 09/24/19 @ 19:03 by Tonia Russ DO) Encephalopathy (Acute) Weakness of both legs (Acute) UTI (urinary tract infection) (Acute) - Physical Exam Vitals/I&O's: Vital Signs Temp Pulse Resp BP Pulse Ox 97.6 F L 92 18 109/60 94 09/27/19 16:00 09/27/19 16:00 09/27/19 16:00 09/27/19 16:00 09/27/19 16:00 Oxygen Delivery Method Room Air Weight: 62.596 kg Body Mass Index (BMI) 24.4 Finger Stick Blood Glucose 101 Intake and Output for Last 24 Hours 09/25/19 09/26/19 09/27/19 23:59 23:59 23:59 Intake Total 240 / 240 Output Total 1000 / 1000 1000 / 1000 Balance -1000 / -1000 -760 / -760 Laboratory Results 09/27/19 05:10: WBC 6.2, RBC 2.82 L, Hgb 9.3 L, Hct 29.9 L, MCV 106.0 H, MCH 33.0 H, MCHC 31.1 L, RDW Std Deviation 54.5 H, RDW Coeff of Moriah 14.3, Plt Count 145 L, MPV 11.8, Immature Gran % (Auto) 1.300 H, Neut % (Auto) 48.7, Lymph % (Auto) 15.5 L, [place] % (Auto) 30.9 H, Eos % (Auto) 3.4, Baso % (Auto) 0.2, Absolute Neuts (auto) 3.0, Absolute Lymphs (auto) 0.96, Nucleated RBC % 0, Differential Comment SCANNED 09/27/19 05:10: Sodium 139, Potassium 3.8, Chloride 109 H, Carbon Dioxide 26.0, Anion Gap 4 L, BUN 10, Creatinine 0.62, Estim Creat Clear Calc 40.21, Est GFR (MDRD) Af Amer 120, Est GFR (MDRD) Non-Af 99, BUN/Creatinine Ratio 16.1, Glucose 98, Calcium 8.4 L Current Medications Acetaminophen (Tylenol) 1,000 mg PO Q6H PRN PRN Reason: Pain Score 1-10/10 Last Admin: 09/27/19 07:57 Dose: 1,000 mg Documented by: Acyclovir (Zovirax) 400 mg PO BID [facility] Last Admin: 09/27/19 05:14 Dose: 400 mg Documented by: Al Hydroxide/Mg Hydroxide (Mylanta Ii) 30 ml PO Q6H PRN PRN PRN Reason: Gastric Burning Atorvastatin Calcium (Lipitor) 80 mg PO QHS [facility] Last Admin: 09/26/19 21:50 Dose: 80 mg Documented by: Bisacodyl (Dulcolax) 10 mg PO DAILY PRN PRN Reason: Constipation Bupropion HCl (Wellbutrin Sr (150mg Tablets)) 150 mg PO BID [facility] Last Admin: 09/27/19 05:14 Dose: 150 mg Documented by: Calamine/Phenol (Calmoseptine Ointment) 1 applic TOPICAL 0600,2200 [facility]; Protocol Last Admin: 09/27/19 05:13 Dose: 1 applicatio Documented by: [facility] Last Admin: 09/27/19 07:54 Dose: 500 mg Documented by: Cholecalciferol (Vitamin D) 1,000 unit PO DAILY@0800 [facility] Last Admin: 09/27/19 07:54 Dose: 1,000 unit Documented by: Enoxaparin Sodium (Lovenox) 60 mg SC Q12@0600,1800 [facility] Last Admin: 09/27/19 05:13 Dose: 60 mg Documented by: Gabapentin [facility]urontin) [facility] Last Admin: 09/27/19 07:54 Dose: 600 mg Documented by: Melatonin (Melatonin) 3 mg PO QHS PRN PRN PRN Reason: INSOMNIA Multi-Ingredient Cream (Eucerin) 1 applic TOPICAL QHS [facility]; Protocol Nutritional Formula (Neil - Wanchese Flavor) [facility] Last Admin: 09/27/19 07:54 Dose: 1 packet Documented by: Pantoprazole Sodium (Protonix) 40 mg PO DAILY [facility] Last Admin: 09/27/19 05:14 Dose: 40 mg Documented by: Polyethylene Glycol (Miralax) 17 gm PO DAILY [facility] Last Admin: 09/27/19 05:09 Dose: Not Given Documented by: Senna/Docusate Sodium (Senokot-S, Kassy-Colace) 1 tablet PO BID [facility] Last Admin: 09/27/19 05:10 Dose: Not Given Documented by: Tamsulosin HCl (Flomax) 0.4 mg PO DAILY@1730 [facility] Tuberculin PPD (Tubersol, Aplisol, Ppd) 5 tu ID [id number] ONE Stop: 10/04/19 10:01 Discharge Diet: No Restrictions Discharge Activity: Return to Normal Activity, May Shower, Use Walker Weight Bearing Status: Weight bearing as tolerated Call your doctor if you observe: Fever of 101 or Higher, Inability to urinate, Inability to have a bowel movement, Shortness of breath, Chest pain, Uncontrolled pain Home Medications: Medications to take at Discharge Acyclovir [Zovirax] 400 mg PO BID 06/28/19 Pantoprazole Sodium [Protonix] 40 mg PO DAILY #30 tab 09/07/19 Atorvastatin Calcium [Lipitor] 80 mg PO QHS #30 tab 09/10/19 Cholecalciferol (Vitamin D3) [Vitamin D3] 1 cap PO DAILY@0800 09/15/19 Gabapentin 600 mg PO BID 09/22/19 Calcium Carbonate [Tums] 500 mg PO BIDCM 09/26/19 Mag Hydrox/Al Hydrox/Simeth [Mylanta II] 30 ml PO Q6H PRN PRN udc 09/26/19 Melatonin 3 mg PO QHS PRN PRN tab 09/26/19 Tamsulosin HCl [Flomax] 0.4 mg PO DAILY@1730 09/26/19 buPROPion SR [Wellbutrin SR (150mg tablets)] 150 mg PO BID 09/26/19 Acetaminophen [Tylenol] 1,000 mg PO Q6H PRN tablet 09/27/19 Enoxaparin [Lovenox] 60 mg SC Q12@0600,1800 syringe 09/27/19 Menthol/Lanolin/Calamine/Znox [Calmoseptine Ointment] 1 applic TOPICAL 0600,2200 tube 09/27/19 Mineral Oil/Petrolatum,White [Eucerin] 1 applic TOPICAL QHS jar 09/27/19 Nutritional Supplement [Neil - ORANGE FLAVOR] 1 packet PO BIDCM #60 packet 09/27/19 Following Prescrptions Were Given to Patient: Nutritional Supplement [Neil - ORANGE FLAVOR] 1 packet PO BIDCM #60 packet Transmission Status: Pending to [facility] Primary Care Physician: Augusta Wilson DO [Primary Care Provider] - Please follow up with your Primary Care Physician in: 1 week. Please Follow Up With: Augusta Wilson DO When: After D/C from TCU Disposition: Home Minutes spent on discharge:: 30 Patient Condition:: Stable Medical Necessity - Tobacco Use Smoking Status: Never smoker Tobacco Use: Non-smoker Meaningful Use Info Meaningful Use Diagnoses (Choose all that apply): None applicable
[2019-09-27] MEDS: Tamsulosin HCl 0.4 MG Capsule PO (17:30)
[2019-09-27] MEDS: Atorvastatin Calcium 80 MG Tablet PO (20:51)
[2019-09-28] MEDS: Enoxaparin 60 MG/0.6 ML Syringe SC ×2 (07:00→16:43)
[2019-09-28] MEDS: Polyethylene Glycol 3350 17 GM PACKET PO (07:00)
[2019-09-28] MEDS: Menthol/Lanolin/Calamine/Znox 113 GM Tube 1 APPLIC TOPICAL ×2 (07:01→20:47)
[2019-09-28] MEDS: Pantoprazole Sodium 40 MG Tablet PO (07:01)
[2019-09-28] MEDS: buPROPion (SR) 150 MG Tablet.SA PO ×2 (07:01→16:43)
[2019-09-28] MEDS: Senna/Docusate Sodium 1 Tablet PO (07:01)
[2019-09-28] MEDS: Acyclovir 200 MG Capsule 400 MG PO ×2 (07:01→16:43)
[2019-09-28] MEDS: Calcium Carbonate 500 MG Tablet PO ×2 (08:24→16:42)
[2019-09-28] MEDS: Gabapentin 600 MG Tablet PO ×2 (08:24→16:42)
[2019-09-28 10:00] VITALS: PULSE 105; RESP 18
--- NOTE | 2019-09-28 10:16 | NURSING ---
THIS NURSE DOING ASSESSMENT HAD PT UP TO LOOK AT BOTTOM AND WOUND, THICK,YELLOW LOOKING SNOT CAME OUT OF PT ANUS WHILE STANDING. ASKED PT IF SHE KNEW ANY THING COMING OUT,PT STATED NO. REPORTED TO NAYAN NUÑEZ
[2019-09-28 15:27] VITALS: BP 103/50; PULSE 104; RESP 17; TEMP 36.9; O2SAT 94
[2019-09-28] MEDS: Tamsulosin HCl 0.4 MG Capsule PO (16:42)
[2019-09-28] MEDS: Atorvastatin Calcium 80 MG Tablet PO (20:46)
[2019-09-29] MEDS: Polyethylene Glycol 3350 17 GM PACKET PO (06:26)
[2019-09-29] MEDS: Pantoprazole Sodium 40 MG Tablet PO (06:26)
[2019-09-29] MEDS: Enoxaparin 60 MG/0.6 ML Syringe SC ×2 (06:26→17:14)
[2019-09-29] MEDS: Acyclovir 200 MG Capsule 400 MG PO ×2 (06:26→17:14)
[2019-09-29] MEDS: Senna/Docusate Sodium 1 Tablet PO (06:27)
[2019-09-29] MEDS: buPROPion (SR) 150 MG Tablet.SA PO ×2 (06:27→17:14)
[2019-09-29] MEDS: Menthol/Lanolin/Calamine/Znox 113 GM Tube 1 APPLIC TOPICAL ×2 (06:28→20:22)
[2019-09-29] MEDS: Calcium Carbonate 500 MG Tablet PO ×2 (08:06→17:13)
[2019-09-29] MEDS: Gabapentin 600 MG Tablet PO ×2 (08:06→17:13)
[2019-09-29 15:10] VITALS: BP 100/55; PULSE 100; RESP 18; TEMP 36.8; O2SAT 96
[2019-09-29] MEDS: Tamsulosin HCl 0.4 MG Capsule PO (17:13)
[2019-09-29 19:52] VITALS: PULSE 98; O2SAT 97
[2019-09-29] MEDS: Atorvastatin Calcium 80 MG Tablet PO (20:21)
[2019-09-30] MEDS: Enoxaparin 60 MG/0.6 ML Syringe SC ×2 (05:55→17:17)
[2019-09-30] MEDS: Polyethylene Glycol 3350 17 GM PACKET PO (05:55)
[2019-09-30] MEDS: Menthol/Lanolin/Calamine/Znox 113 GM Tube 1 APPLIC TOPICAL ×2 (05:55→20:12)
[2019-09-30] MEDS: Acyclovir 200 MG Capsule 400 MG PO ×2 (05:56→17:15)
[2019-09-30] MEDS: Senna/Docusate Sodium 1 Tablet PO ×2 (05:56→17:15)
[2019-09-30] MEDS: buPROPion (SR) 150 MG Tablet.SA PO ×2 (05:56→17:16)
[2019-09-30] MEDS: Pantoprazole Sodium 40 MG Tablet PO (05:56)
--- NOTE | 2019-09-30 06:07 | NURSING ---
16F botello removed at this time. 5 cc removed from balloon. Patient tolerated well. Will continue to monitor.
[2019-09-30] MEDS: Gabapentin 600 MG Tablet PO ×2 (09:08→17:16)
[2019-09-30] MEDS: Calcium Carbonate 500 MG Tablet PO ×2 (09:08→17:16)
[2019-09-30 15:34] VITALS: BP 116/53; PULSE 85; RESP 17; TEMP 36.7; O2SAT 97
[2019-09-30] MEDS: Tamsulosin HCl 0.4 MG Capsule PO (17:15)
[2019-09-30] MEDS: Atorvastatin Calcium 80 MG Tablet PO (20:15)
[2019-09-30 20:28] VITALS: PULSE 96; RESP 16; O2SAT 96
[2019-10-01] MEDS: buPROPion (SR) 150 MG Tablet.SA PO ×2 (05:59→17:39)
[2019-10-01] MEDS: Senna/Docusate Sodium 1 Tablet PO ×2 (05:59→17:39)
[2019-10-01] MEDS: Pantoprazole Sodium 40 MG Tablet PO (05:59)
[2019-10-01] MEDS: Acyclovir 200 MG Capsule 400 MG PO ×2 (05:59→17:39)
[2019-10-01] MEDS: Polyethylene Glycol 3350 17 GM PACKET PO (06:00)
[2019-10-01] MEDS: Enoxaparin 60 MG/0.6 ML Syringe SC ×2 (06:01→17:43)
[2019-10-01] MEDS: Menthol/Lanolin/Calamine/Znox 113 GM Tube 1 APPLIC TOPICAL ×2 (06:05→19:39)
[2019-10-01] MEDS: Gabapentin 600 MG Tablet PO ×2 (08:08→17:39)
[2019-10-01] MEDS: Calcium Carbonate 500 MG Tablet PO ×2 (08:08→17:39)
[2019-10-01 08:40] VITALS: PULSE 103; RESP 18; O2SAT 92
--- NOTE | 2019-10-01 11:12 | NURSING ---
PT HAD MODERATE INCONTINENCE, BLADDER SCANNED AT 11:15AM FOR 337. WILL CONTINUE TO MONITOR.
[2019-10-01 14:10] VITALS: BP 94/52; PULSE 96; RESP 18; TEMP 36.7; O2SAT 92
--- NOTE | 2019-10-01 17:37 | NURSING ---
MODERATE INCONTINENCE,PT BLADDER SCANNED FOR 222.
[2019-10-01] MEDS: Tamsulosin HCl 0.4 MG Capsule PO (17:39)
[2019-10-01] MEDS: Atorvastatin Calcium 80 MG Tablet PO (19:38)
[2019-10-02] MEDS: Enoxaparin 60 MG/0.6 ML Syringe SC ×2 (05:16→17:05)
[2019-10-02] MEDS: Pantoprazole Sodium 40 MG Tablet PO (05:16)
[2019-10-02] MEDS: Acyclovir 200 MG Capsule 400 MG PO ×2 (05:16→17:07)
[2019-10-02] MEDS: buPROPion (SR) 150 MG Tablet.SA PO ×2 (05:16→17:06)
[2019-10-02] MEDS: Menthol/Lanolin/Calamine/Znox 113 GM Tube 1 APPLIC TOPICAL ×2 (05:19→21:02)
[2019-10-02] MEDS: Calcium Carbonate 500 MG Tablet PO ×2 (07:50→17:06)
[2019-10-02] MEDS: Gabapentin 600 MG Tablet PO ×2 (07:50→17:06)
--- NOTE | 2019-10-02 11:21 | NURSING ---
Spoke with Dr. Steven, Notified that doctor kan is out till the . Dr. steven states to consult quan
[2019-10-02 14:05] VITALS: BP 119/57; PULSE 98; RESP 16; TEMP 36.4; O2SAT 98
[2019-10-02] MEDS: Senna/Docusate Sodium 1 Tablet PO (17:05)
[2019-10-02] MEDS: Tamsulosin HCl 0.4 MG Capsule PO (17:07)
--- NOTE | 2019-10-02 17:17 | PCM.CONS.U ---
Reason for Consult Date of Consultation: 10/02/19 Reason for Consultation: Uncontrolled bladder function History of Present Illness: The patient is a 74 year old female who had a procedure in the back for pain, after this developed a hematoma with compression, this history is per the patient I have not reviewed the records, she then tells me that she had back surgery, she is now entering rehab still recovering has weakness in the lower extremities, has uncontrolled bowel function, and also having uncontrolled urinary function, postvoid residuals vary from 1 60-400 depending on when it is done. Often times she will stand up in the urine which is run out. Appears to have a neurogenic bladder given her history of a hematoma the compressing the spinal cord and back surgery. Very possible to go to take a long time to regain bladder function but she is still able to empty her bladder. Just has poor control. I do think the Flomax is helping second to stop the Flomax. 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 Gómez for tx of Multiple Myeloma HLD (hyperlipidemia) (Chronic) Anxiety and depression (Chronic) Debility (Chronic) Essential tremor (Chronic) Low back pain (Chronic) Vascular dementia (Chronic) Hypertension (Chronic) Neuropathic pain (Chronic) Left hemiparesis (Chronic) Anxiety (Chronic) Pressure ulcer of right buttock, stage 3 (Chronic) Urinary incontinence (Chronic) Chronic indwelling Bentley catheter (Chronic) Chronic anticoagulation (Chronic) on therapeutic Lovenox Epidural hematoma (Chronic) Cauda equina syndrome (Chronic) Myelodysplasia (myelodysplastic syndrome) (Chronic) Depression (Chronic) Cerebrovascular disease (Chronic) Macrocytosis (Chronic) MDS (myelodysplastic syndrome), low grade (Chronic) Myeloma (Chronic) Lung nodule (Chronic) Left upper lobe, May 2018 Liver lesion, right lobe (Chronic) Negative biopsy for malignancy June 29, 2018 Anemia (Chronic) Cognitive dysfunction (Chronic) Meningioma (Chronic) Medical History: Medical History (Last Reviewed 09/24/19 @ 19:03 by Tonia Russ DO) Cellulitis L03.90 left eye Meningioma D32.9 Gamma knife at [facility] ~2000 Osteopenia M85.80 Stroke I63.9 X2 - HOSPITALIZATION FOR 5 DAYS Allergies morphine Adverse Reaction (Severe, Verified 09/24/19 14:47) Nausea Home Medications: Ambulatory Orders Medication Instructions Recorded Acyclovir [Zovirax] 400 mg PO BID 06/28/19 Pantoprazole Sodium [Protonix] 40 mg PO DAILY #30 tab 09/07/19 Atorvastatin Calcium [Lipitor] 80 mg PO QHS #30 tab 09/10/19 Cholecalciferol (Vitamin D3) 1 cap PO DAILY@0800 09/15/19 [Vitamin D3] Gabapentin 600 mg PO BID 09/22/19 Calcium Carbonate [Tums] 500 mg PO BIDCM 09/26/19 Mag Hydrox/Al Hydrox/Simeth 30 ml PO Q6H PRN PRN udc 09/26/19 [Mylanta II] Melatonin 3 mg PO QHS PRN PRN tab 09/26/19 Tamsulosin HCl [Flomax] 0.4 mg PO DAILY@1730 09/26/19 buPROPion SR [Wellbutrin SR (150mg 150 mg PO BID 09/26/19 tablets)] Acetaminophen [Tylenol] 1,000 mg PO Q6H PRN tab 09/27/19 Enoxaparin [Lovenox] 60 mg SUBCUT Q12@0600,1800 syringe 09/27/19 Menthol/Lanolin/Calamine/Znox 1 applic TOPICAL 0600,2200 tube 09/27/19 [Calmoseptine Ointment] Mineral Oil/Petrolatum,White 1 applic TOPICAL QHS jar 09/27/19 [Eucerin] Nutritional Supplement [Neil - 1 packet PO BIDCM #60 packet 09/27/19 ORANGE FLAVOR] Surgical History: Surgical History (Last Reviewed 09/24/19 @ 19:03 by Tonia Russ DO) History of cholecystectomy Z90.49 History of hysterectomy Z90.710 Surgical History: cholecystectomy, hysterectomy, tonsillectomy, - - Gamma knife meningioma. Surgery to evacuate a very large Lumbar hematoma causing cauda equina S. Psychiatric History: Anxiety, Depression DENTAL SURGEON History: No pertinent DENTAL SURGEON history Lives: Spouse/ Significant Other Smoking Status: Never smoker Tobacco Use: Non-smoker Alcohol: None Drugs: None - *Family History Maternal Family History: Family History (Last Reviewed 09/24/19 @ 19:04 by Tonia Russ DO) Mother Breast cancer Sister Breast cancer Aunt Breast cancer Daughter History of malignant melanoma Father Brain cancer Brother Lung cancer History Items: Cancer - Mother with history of breast cancer. Paternal Family History: Family History (Last Reviewed 09/24/19 @ 19:04 by Tonia Russ DO) Mother Breast cancer Sister Breast cancer Aunt Breast cancer Daughter History of malignant melanoma Father Brain cancer Brother Lung cancer History Items: Cancer - Father with history of brain cancer. Review of Systems Constitutional: Denies: Chills, Fever, Weight Change HEENT: Denies: Head Aches, Sinus Congestion, Sinus Drainage Cardiovascular: Denies: Chest Pain, Palpitations Respiratory: Denies: Cough, Shortness of breath at rest, Sputum production Gastrointestinal: Denies: Abdominal Pain, Nausea, Vomiting Genitourinary: Reports: Frequency, Incontinence. Denies: Dysuria Musculoskeletal: Denies: Joint Pain, Joint Tenderness Skin: Denies: Rash, Wounds Neurological: Denies: Numbness, Tingling, Focal weakness Psychiatric: Denies: Anxiety, Depression, Homicidal Ideations, Suicidal Ideations Hematologic/ Lymphatic: Denies: Easy Bruising, Easy Bleeding Physical Exam - Physical Exam Vital Signs Temp 97.6 F L 10/02/19 14:05 Pulse 98 10/02/19 14:05 Resp 16 10/02/19 14:05 BP 119/57 L 10/02/19 14:05 Pulse Ox 98 10/02/19 14:05 Intake & Output 09/30/19 10/01/19 10/02/19 23:59 23:59 23:59 Intake Total 1580 / 1580 1240 / 1240 720 / 720 Output Total 550 / 550 100 / 100 Balance 1030 / 1030 1240 / 1240 620 / 620 Intake: Oral 1580 / 1580 1240 / 1240 720 / 720 Output: Urine 550 / 550 100 / 100 Other: Incontinent Amount Large Moderate Incontinent Amount Urine #2 Moderate Number of Bowel Movements 1 1 General: Alert, Oriented x3 HEENT: Atraumatic Oral: Moist Mucosa Neck: Supple Lungs: Normal air movement Cardiovascular: Regular rate Abdomen: Soft Assessment/Plan All Active Problems (Last Reviewed 09/24/19 @ 19:03 by Tonia Russ DO) Declining functional status (Acute) Unable to ambulate (Acute) AL (acute kidney injury) (Acute) Dehydration (Acute) Encephalopathy (Acute) Weakness of both legs (Acute) UTI (urinary tract infection) (Acute) PFO (patent foramen ovale) (Ruled-out) Cauda equina syndrome (Resolved) Epidural hematoma (Resolved) Hypophosphatemia (Resolved) Hypotension (Resolved) 74-year-old female with a hematoma that developed in her spine had decompression back surgery is not having some sequelae regarding to this she has poor bladder control. Recommend that we do postvoid residuals after he she urinates. We will stop Flomax for now. Recommend we do an ultrasound of the kidney and bladder for further evaluation. She can start taking Myrbetriq 25 mg daily. At this point I do not think she needs self intermittent catheterization because most of her volumes on PVR are not extensively high also will check ultrasound of the kidney make sure there is no hydronephrosis. Certainly after discharge she can follow-up in my office. Currently I do not have urodynamic equipment in the office and may have to refer her out for urodynamics.
--- NOTE | 2019-10-02 17:46 | US_ITS ---
STUDY: RENAL ULTRASOUND - COMPLETE REASON FOR EXAM: Female, 74 years old. HYDRONEPHROSIS TECHNIQUE: Ultrasound evaluation of the kidneys was performed with real-time and static llamas-scale imaging. COMPARISON: None. FINDINGS: RIGHT KIDNEY: Normal location of the right kidney, which is normal in size. The right kidney measures 10.2 cm in length. There is a normal cortex of the right kidney. There is no right renal mass or cyst. There are no right renal calculi. There is no right hydronephrosis. DISTAL RIGHT URETER: There is a visualized right ureteral jet. LEFT KIDNEY: Normal location of the left kidney, which is normal in size. The left kidney measures 10.4 cm in length. There is a normal cortex of the left kidney. There is no left renal mass or cyst. There are no left renal calculi. There is no left hydronephrosis. DISTAL LEFT URETER: There is a visualized left ureteral jet. BLADDER: The distended urinary bladder has a volume of 386.3 ml. There is a normal wall thickness of the distended urinary bladder. There is no demonstrated mass within the urinary bladder. There are no demonstrated bladder calculi. US/Kidney and Bladder IMPRESSION: Within normal limits ultrasound of the kidneys and urinary bladder. Electronically Signed: Michelle Medina MD at 20:07 EST Tel , Service support ,
[2019-10-02 20:32] VITALS: PULSE 102; O2SAT 94
[2019-10-02] MEDS: Atorvastatin Calcium 80 MG Tablet PO (21:00)
[2019-10-03] MEDS: Pantoprazole Sodium 40 MG Tablet PO (05:34)
[2019-10-03] MEDS: Enoxaparin 60 MG/0.6 ML Syringe SC ×2 (05:34→17:42)
[2019-10-03] MEDS: Mirabegron 25 MG TAB.ER.24H PO (05:34)
[2019-10-03] MEDS: Acyclovir 200 MG Capsule 400 MG PO ×2 (05:34→17:43)
[2019-10-03] MEDS: buPROPion (SR) 150 MG Tablet.SA PO ×2 (05:34→17:43)
[2019-10-03] MEDS: Menthol/Lanolin/Calamine/Znox 113 GM Tube 1 APPLIC TOPICAL ×2 (05:37→21:02)
[2019-10-03] MEDS: Gabapentin 600 MG Tablet PO ×2 (07:48→17:42)
[2019-10-03] MEDS: Calcium Carbonate 500 MG Tablet PO ×2 (07:48→17:42)
--- NOTE | 2019-10-03 10:30 | CASEMGMT ---
Social Work Reviewed and agreed with social work internal sales engineer documentation on this date. Heidi Lugo, MAIL LIST PROCESSOR CERAMIC TILE INSTALLATION HELPER
--- NOTE | 2019-10-03 15:09 | NURSING ---
wound photo: right buttock
[2019-10-03 15:26] VITALS: BP 108/59; PULSE 98; RESP 20; TEMP 36.1; O2SAT 95
--- NOTE | 2019-10-03 15:37 | CHAPLAIN ---
Type of Pastoral Visit ___ Initial Visit _x__ Follow-up Visit ___ On-call Visit ___ General Patient Visit ___ Spiritual Assessment ___ Family Conference ___ Bereavement ___ Rapid Response ___ Code Blue ___ Other (describe below) Pastoral Care Referral From _x__ Patient ___ Family ___ Nurse ___ Physician ___ Cracking Unit Operator ___ Cleaning Specialist ___ Other (describe below) Sacrament/Intervention _x__ Active listening ___ Anointing ___ Buddhist ___ Bereavement ___ Communion ___ Orly exploration ___ _x__ Life review ___ Prayer ___ Reconciliation ___ Sacrament of Sick _x__ Supportive presence ___ Wedding ___ Other (describe below) Pastoral Comments
[2019-10-03] MEDS: Acetaminophen 500 MG Tablet 1000 MG PO (16:13)
[2019-10-03] MEDS: Atorvastatin Calcium 80 MG Tablet PO (21:02)
[2019-10-04] MEDS: buPROPion (SR) 150 MG Tablet.SA PO ×2 (05:06→17:40)
[2019-10-04] MEDS: Pantoprazole Sodium 40 MG Tablet PO (05:06)
[2019-10-04] MEDS: Acyclovir 200 MG Capsule 400 MG PO ×2 (05:06→17:40)
[2019-10-04] MEDS: Mirabegron 25 MG TAB.ER.24H PO (05:06)
[2019-10-04] MEDS: Menthol/Lanolin/Calamine/Znox 113 GM Tube 1 APPLIC TOPICAL ×2 (05:07→21:58)
[2019-10-04] MEDS: Enoxaparin 60 MG/0.6 ML Syringe SC ×2 (05:19→17:40)
[2019-10-04 05:49] LABS: Absolute Lymphocyte Count 1.48 X10^3/uL (0.83-4.51); Absolute Neutrophil Count 7.1 X10^3/uL (2.0-7.7); Basophil# 0.04 X10^3/uL; Basophil% 0.3 % (0-1); Eosinophil# 0.28 X10^3/uL; Eosinophils% 2.3 % (0-5); Hemoglobin 10.9 g/dL (12.0-15.0); Lymphocyte # 1.48 X10^3/ul (4.0); Mean Corp Hgb Conc 32.1 g/dL (32-36); Mean Corpuscular Hgb 34.1 pg (27.0-32.0); Mean Corpuscular Volume 106.3 fL (81-99); Mean Platelet Vol. 11.5 fl (6.2-12.0); Monocyte# 3.12 X10^3/uL; Monocyte% 25.3 % (0-10); NRBC Flagged by Analyzer 0 % (0-5); Neutrophil # 7.13 X10^3/uL (2.7-7.7); Neutrophil % 57.7 % (47-70); POSITIVE DIFFERENTIAL YES; Platelet Count 228 K/mm3 (150-450); RBC Distribution Width CV 13.8 % (11.6-14.6); White Blood Count 12.3 K/mm3 (4.4-11.0)
[2019-10-04 05:50] LABS: Differential Indicated SCAN CRITERIA MET
[2019-10-04 06:15] LABS: Anion Gap 3 (5-15); BUN 34 mg/dL (7-18); BUN/Creat Ratio 39.9 RATIO (10-20); Calcium,Total 9.1 mg/dL (8.5-10.1); Chloride 105 mmol/L (98-107); Creatinine, Serum 0.85 mg/dL (0.55-1.02); EST Glomerular Filtration Rate 69 mL/min (>60); Est Glom Filt Rate - Afr Amer 84 mL/min (>60); Estimated Creatinine Clearance 47.31 ml/min; Glucose 91 mg/dL (74-106); Potassium 4.2 mmol/L (3.5-5.1); Sodium Level 138 mmol/L (136-145)
[2019-10-04 06:17] LABS: Differential Comment SCANNED
--- NOTE | 2019-10-04 07:34 | NURSING ---
At 0430, pt was incontinent of urine, PvR 590, pt got up to bsc but unable to void, incontinent of urine a little, PVR was 529 ml. Order to straight cath from Dr. Steven. While preparing for straight cath, she was incontinent a small amount, proceeded with straight cath. Emptied 450 ml of slightly cloudy urine and was light yellow. Procedure well tolerated.
[2019-10-04] MEDS: Gabapentin 600 MG Tablet PO ×2 (08:54→17:40)
[2019-10-04] MEDS: Calcium Carbonate 500 MG Tablet PO ×2 (08:54→17:40)
[2019-10-04] MEDS: Acetaminophen 500 MG Tablet 1000 MG PO (08:58)
[2019-10-04] MEDS: Tuberculin,Purif.prot.deriv. 50 TU/ML Vial 5 ML ID (09:24)
--- NOTE | 2019-10-04 11:34 | CASEMGMT ---
Social Work IDT met with patient and for care plan meeting. Discussed patient's progress in therapy. Pt is SBA for bed mobility, CGA for transfers, walking 100 ft with FWW CGA, max assist for toileting tasks as pt is unsteady w/o walker, min assist for LE ADLs, SBA for UE ADLs. Pt having some confusion, poor attention, and high distractibility. Pt has bilateral foot drop, wound on buttock - receiving Neil. IDT discussed pt and safety at home and resources for pt to be successful staying in the home. has [facility] 3 pm for pt to possibly receive OWNER SPA DIRECTOR. Suggested hiring private duty aides for showers or routine care, in addition to restarting [facility] and HHC. Therapy will continue to work on strengthening. Explained Medicare coverage, currently on day 69. Pt became tearful and expressed grieving loss of independence and discouraged with foot drop. Provided emotional and verbal support. Pt agreeable to medication adjustment. Explained Adult Day Care for pt at [place] for socialization - pt agreed to consider option. Provided resources on Adult Day Centers. Will continue to follow. Heidi Lugo, STEFAN CIVIL TECHNICIAN
[2019-10-04 13:20] LABS: Pathologist Review Reviewed
--- NOTE | 2019-10-04 13:59 | NURSING ---
PT LEAVING FOR APPOINTMENT BY WHEEL CHAIR AT 1400, TAKING.
[2019-10-04 16:00] VITALS: BP 101/63; PULSE 98; RESP 18; TEMP 36.7; O2SAT 95
--- NOTE | 2019-10-04 16:43 | NURSING ---
pt returned from appointment at 1635 by wheel chair with .
--- NOTE | 2019-10-04 16:55 | NURSING ---
Patient returned from appointments. No new orders. Patient stated they margaret her blood and she sat waiting in waiting room and was told she was to come back in 4 weeks.
--- NOTE | 2019-10-04 17:03 | CASEMGMT ---
Social Work Reviewed and agreed with social work pharmacy intern documentation on this date. Heidi Lugo, PEARL RESTORER REAL ESTATE CONSULTANT
[2019-10-04] MEDS: Senna/Docusate Sodium 1 Tablet PO (17:40)
[2019-10-04] MEDS: Atorvastatin Calcium 80 MG Tablet PO (21:59)
[2019-10-04 22:06] VITALS: RESP 16
[2019-10-05] MEDS: Menthol/Lanolin/Calamine/Znox 113 GM Tube 1 APPLIC TOPICAL ×2 (04:59→21:02)
[2019-10-05] MEDS: Enoxaparin 60 MG/0.6 ML Syringe SC ×2 (05:00→17:20)
[2019-10-05] MEDS: Acyclovir 200 MG Capsule 400 MG PO ×2 (05:00→17:19)
[2019-10-05] MEDS: buPROPion (SR) 150 MG Tablet.SA PO ×2 (05:01→17:19)
[2019-10-05] MEDS: Mirabegron 25 MG TAB.ER.24H PO (05:01)
[2019-10-05] MEDS: Senna/Docusate Sodium 1 Tablet PO ×2 (05:01→17:19)
[2019-10-05] MEDS: Pantoprazole Sodium 40 MG Tablet PO (05:01)
[2019-10-05] MEDS: Polyethylene Glycol 3350 17 GM PACKET PO (05:08)
--- NOTE | 2019-10-05 05:28 | NURSING ---
Pt was bladder scanned for 697 and straight cath for 800 per protocol. No concerns voice during this time. Pt was assisted to BSC before straight cath and void 200. Rn made aware.
--- NOTE | 2019-10-05 08:43 | MDS.RN ---
Information for the mds was obtained from review of the clinical record, interview of resident, staff, and direct observation of resident's care.
[2019-10-05] MEDS: Calcium Carbonate 500 MG Tablet PO ×2 (08:56→17:19)
[2019-10-05] MEDS: dexAMETHasone 4 MG Tablet 20 MG PO (08:57)
[2019-10-05] MEDS: Gabapentin 600 MG Tablet PO ×2 (08:57→17:19)
[2019-10-05 09:50] VITALS: PULSE 90; RESP 18; O2SAT 95
--- NOTE | 2019-10-05 09:58 | NURSING ---
Addendum entered by Tonia Huddleston 10/05/19 12:42: explained to pt that urologist would like pt to start learning to st cath self for home, pt states no, I am not a doctor will keep encouraging pt & educate pt on how to w/demonstration and return demonstration. Original Note: Dr Weber notified of elevated PVR and st cathed fro 800cc this AM. New order for st cath teaching with pt for home discharge.
[2019-10-05 13:34] VITALS: BP 100/65; PULSE 97; RESP 18; TEMP 36.7; O2SAT 96
--- NOTE | 2019-10-05 14:32 | NURSING ---
PT BLADDER SCANNED FOR 509. PER TEACH PT TO STRAIGHT CATH SELF. THIS NURSE WAS TEACHING PT TO STRAIGHT CATH SELF IN BATH ROOM,PT TRYED BUT NO SUCCESS. THIS NURSE STRAIGHT CATHED PT. 550 OUT. WILL CONTINUE TO WORK WITH PT,PT STATED SHE WAS NOT SURE IF SHE WILL BE ABLE TO STRAIGHT CATH SELF. PT ALSO STATED SOME TIMES MY HAS TO LEAVE FOR ALL DAY,THEN WHAT WILL I DO IF I CANT DO IT MY SELF. TOLD PT WE CAN ALSO TEACH THE . PT STATED I SIT IN MY CHAIR ALL DAY TILL MY GETS HOME. PT HAD TEARS IN HER EYES. REPORTED TO NAYAN FRANCO
--- NOTE | 2019-10-05 19:22 | NURSING ---
BLADDER SCANNED PT FOR 535. STRAIGHT CATHED FOR 500. REPORTED TO NAYAN FRANCO
[2019-10-05] MEDS: Atorvastatin Calcium 80 MG Tablet PO (21:01)
[2019-10-06] MEDS: Polyethylene Glycol 3350 17 GM PACKET PO (05:56)
[2019-10-06] MEDS: Senna/Docusate Sodium 1 Tablet PO ×2 (05:56→17:49)
[2019-10-06] MEDS: buPROPion (SR) 150 MG Tablet.SA PO ×2 (05:56→17:49)
[2019-10-06] MEDS: Mirabegron 25 MG TAB.ER.24H PO (05:56)
[2019-10-06] MEDS: Pantoprazole Sodium 40 MG Tablet PO (05:56)
[2019-10-06] MEDS: Acyclovir 200 MG Capsule 400 MG PO ×2 (05:56→17:49)
[2019-10-06] MEDS: Enoxaparin 60 MG/0.6 ML Syringe SC ×2 (05:57→17:49)
[2019-10-06] MEDS: Menthol/Lanolin/Calamine/Znox 113 GM Tube 1 APPLIC TOPICAL ×2 (06:06→21:56)
[2019-10-06] MEDS: Calcium Carbonate 500 MG Tablet PO ×2 (08:36→17:49)
[2019-10-06] MEDS: Gabapentin 600 MG Tablet PO ×2 (08:37→17:49)
[2019-10-06 09:58] VITALS: PULSE 98; RESP 16; O2SAT 98
--- NOTE | 2019-10-06 12:26 | NURSING ---
patient bladder scanned for 169
[2019-10-06 14:12] VITALS: BP 87/50; PULSE 52; RESP 16; TEMP 36.6; O2SAT 92
--- NOTE | 2019-10-06 18:25 | NURSING ---
patient bladder scanned for 243. Stated she feels the need to void.
[2019-10-06] MEDS: Atorvastatin Calcium 80 MG Tablet PO (21:54)
[2019-10-07] MEDS: Enoxaparin 60 MG/0.6 ML Syringe SC ×2 (05:09→17:38)
[2019-10-07] MEDS: Polyethylene Glycol 3350 17 GM PACKET PO (05:10)
[2019-10-07] MEDS: buPROPion (SR) 150 MG Tablet.SA PO ×2 (05:11→17:37)
[2019-10-07] MEDS: Mirabegron 25 MG TAB.ER.24H PO (05:11)
[2019-10-07] MEDS: Acyclovir 200 MG Capsule 400 MG PO ×2 (05:11→17:39)
[2019-10-07] MEDS: Menthol/Lanolin/Calamine/Znox 113 GM Tube 1 APPLIC TOPICAL ×2 (05:11→21:23)
[2019-10-07] MEDS: Senna/Docusate Sodium 1 Tablet PO ×2 (05:11→17:37)
[2019-10-07] MEDS: Pantoprazole Sodium 40 MG Tablet PO (05:11)
[2019-10-07] MEDS: Gabapentin 600 MG Tablet PO ×2 (08:22→17:38)
[2019-10-07] MEDS: Acetaminophen 500 MG Tablet 1000 MG PO (08:22)
[2019-10-07] MEDS: Calcium Carbonate 500 MG Tablet PO ×2 (08:22→17:37)
[2019-10-07 14:30] VITALS: BP 111/59; PULSE 99; RESP 16; TEMP 36.3; O2SAT 96
[2019-10-07] MEDS: Atorvastatin Calcium 80 MG Tablet PO (21:22)
[2019-10-07 22:57] VITALS: RESP 16
[2019-10-08] MEDS: Mirabegron 25 MG TAB.ER.24H PO (05:19)
[2019-10-08] MEDS: Acyclovir 200 MG Capsule 400 MG PO ×2 (05:19→18:34)
[2019-10-08] MEDS: Senna/Docusate Sodium 1 Tablet PO ×2 (05:19→18:34)
[2019-10-08] MEDS: buPROPion (SR) 150 MG Tablet.SA PO ×2 (05:19→18:34)
[2019-10-08] MEDS: Enoxaparin 60 MG/0.6 ML Syringe SC ×2 (05:19→18:35)
[2019-10-08] MEDS: Polyethylene Glycol 3350 17 GM PACKET PO (05:19)
[2019-10-08] MEDS: Pantoprazole Sodium 40 MG Tablet PO (05:19)
[2019-10-08] MEDS: Menthol/Lanolin/Calamine/Znox 113 GM Tube 1 APPLIC TOPICAL ×2 (05:20→21:04)
[2019-10-08] MEDS: Calcium Carbonate 500 MG Tablet PO ×2 (07:37→18:34)
[2019-10-08] MEDS: Gabapentin 600 MG Tablet PO ×2 (07:37→18:34)
[2019-10-08 14:32] VITALS: BP 124/68; PULSE 97; RESP 16; TEMP 36.4; O2SAT 98
[2019-10-08] MEDS: Atorvastatin Calcium 80 MG Tablet PO (21:06)
[2019-10-09] MEDS: Polyethylene Glycol 3350 17 GM PACKET PO (05:11)
[2019-10-09] MEDS: Acyclovir 200 MG Capsule 400 MG PO ×2 (05:11→17:45)
[2019-10-09] MEDS: buPROPion (SR) 150 MG Tablet.SA PO ×2 (05:12→17:45)
[2019-10-09] MEDS: Senna/Docusate Sodium 1 Tablet PO ×2 (05:12→17:45)
[2019-10-09] MEDS: Mirabegron 25 MG TAB.ER.24H PO (05:12)
[2019-10-09] MEDS: Menthol/Lanolin/Calamine/Znox 113 GM Tube 1 APPLIC TOPICAL ×2 (05:12→20:42)
[2019-10-09] MEDS: Pantoprazole Sodium 40 MG Tablet PO (05:12)
[2019-10-09] MEDS: Enoxaparin 60 MG/0.6 ML Syringe SC ×2 (05:12→17:45)
[2019-10-09] MEDS: Gabapentin 600 MG Tablet PO ×2 (08:08→17:44)
[2019-10-09] MEDS: Calcium Carbonate 500 MG Tablet PO ×2 (08:08→17:44)
[2019-10-09 14:55] VITALS: BP 112/39; PULSE 94; RESP 14; TEMP 36.5; O2SAT 96
[2019-10-09] MEDS: Atorvastatin Calcium 80 MG Tablet PO (20:41)
[2019-10-09 20:46] VITALS: PULSE 94; O2SAT 98
[2019-10-10] MEDS: Pantoprazole Sodium 40 MG Tablet PO (05:15)
[2019-10-10] MEDS: Enoxaparin 60 MG/0.6 ML Syringe SC ×2 (05:15→17:49)
[2019-10-10] MEDS: Senna/Docusate Sodium 1 Tablet PO ×2 (05:15→17:48)
[2019-10-10] MEDS: Menthol/Lanolin/Calamine/Znox 113 GM Tube 1 APPLIC TOPICAL ×2 (05:15→21:03)
[2019-10-10] MEDS: Acyclovir 200 MG Capsule 400 MG PO ×2 (05:15→17:48)
[2019-10-10] MEDS: Mirabegron 25 MG TAB.ER.24H PO (05:15)
[2019-10-10] MEDS: Polyethylene Glycol 3350 17 GM PACKET PO (05:15)
[2019-10-10] MEDS: buPROPion (SR) 150 MG Tablet.SA PO ×2 (05:15→17:48)
[2019-10-10] MEDS: Calcium Carbonate 500 MG Tablet PO ×2 (08:39→17:48)
[2019-10-10] MEDS: Gabapentin 600 MG Tablet PO ×2 (08:40→17:48)
[2019-10-10 10:40] VITALS: PULSE 95; RESP 18; O2SAT 98
[2019-10-10 15:30] VITALS: BP 118/70; PULSE 86; RESP 14; TEMP 36.4; O2SAT 97
[2019-10-10] MEDS: Atorvastatin Calcium 80 MG Tablet PO (21:03)
[2019-10-11 05:37] LABS: Absolute Lymphocyte Count 1.31 X10^3/uL (0.83-4.51); Absolute Neutrophil Count 4.5 X10^3/uL (2.0-7.7); Basophil# 0.04 X10^3/uL; Basophil% 0.4 % (0-1); Eosinophils% 3.3 % (0-5); Hematocrit 35.4 % (37-47); Hemoglobin 11.4 g/dL (12.0-15.0); Lymphocyte # 1.31 X10^3/ul (4.0); Lymphocyte % 14.2 % (19-41); Mean Corp Hgb Conc 32.2 g/dL (32-36); Mean Corpuscular Hgb 34.1 pg (27.0-32.0); Mean Platelet Vol. 11.4 fl (6.2-12.0); Monocyte# 2.74 X10^3/uL; Monocyte% 29.7 % (0-10); NRBC Flagged by Analyzer 0 % (0-5); Neutrophil # 4.49 X10^3/uL (2.7-7.7); Neutrophil % 48.7 % (47-70); POSITIVE DIFFERENTIAL YES; Platelet Count 200 K/mm3 (150-450); RBC Distribution Width CV 14.1 % (11.6-14.6); RBC Distribution Width SD 54.7 fl (35.1-43.9); Red Blood Count 3.34 M/mm3 (4.2-5.4); White Blood Count 9.2 K/mm3 (4.4-11.0)
[2019-10-11] MEDS: Acyclovir 200 MG Capsule 400 MG PO ×2 (05:39→17:22)
[2019-10-11] MEDS: Enoxaparin 60 MG/0.6 ML Syringe SC ×2 (05:39→17:21)
[2019-10-11] MEDS: buPROPion (SR) 150 MG Tablet.SA PO ×2 (05:40→17:23)
[2019-10-11] MEDS: Pantoprazole Sodium 40 MG Tablet PO (05:40)
[2019-10-11] MEDS: Menthol/Lanolin/Calamine/Znox 113 GM Tube 1 APPLIC TOPICAL ×2 (05:40→21:01)
[2019-10-11] MEDS: Mirabegron 25 MG TAB.ER.24H PO (05:40)
[2019-10-11 05:42] LABS: Differential Indicated SCAN CRITERIA MET
[2019-10-11 05:53] LABS: Anion Gap 5 (5-15); BUN 37 mg/dL (7-18); BUN/Creat Ratio 47.1 RATIO (10-20); Calcium,Total 8.8 mg/dL (8.5-10.1); Chloride 106 mmol/L (98-107); Creatinine, Serum 0.78 mg/dL (0.55-1.02); EST Glomerular Filtration Rate 76 mL/min (>60); Est Glom Filt Rate - Afr Amer 92 mL/min (>60); Estimated Creatinine Clearance 40.21 ml/min; Glucose 97 mg/dL (74-106); Potassium 4.1 mmol/L (3.5-5.1); Sodium Level 140 mmol/L (136-145)
[2019-10-11 06:06] LABS: Platelet Estimate ADEQUATE (ADEQ)
[2019-10-11] MEDS: Gabapentin 600 MG Tablet PO ×2 (09:10→17:21)
[2019-10-11] MEDS: Calcium Carbonate 500 MG Tablet PO ×2 (09:10→17:21)
--- NOTE | 2019-10-11 16:08 | CASEMGMT ---
Addendum entered by Heidi Lugo 10/20/19 10:57: Ordered SN for HHC as pt has catheter. Addendum entered by Heidi Lugo 10/13/19 15:05: [facility] cannot accept pt as she exceeds their care needs. Notified pt. Addendum entered by Heidi Lugo 10/12/19 11:29: would prefer HHC first then outpatient. Spoke with patient whom agrees and requesting [facility]. Referral made for PT/OT/ST. Original Note: Social Work Spoke with pt about issuing LCD 10/19, DC home 10/20. Pt agreeable and feels she will do better at home with support. Pt requesting to restart therapy at [facility]. Referral made for PT/OT/ST. Pt requesting w/c - referral made to [facility]. Notified [facility] to restart services. Plan: DC home with 10/20 with [facility] PT/OT/ST, restart [facility]. STEFAN BerryW
[2019-10-11 16:09] VITALS: BP 104/39; PULSE 84; RESP 16; TEMP 36.8; O2SAT 100
--- NOTE | 2019-10-11 16:10 | NURSING ---
pt up to br to void but missed hat. incont mod amt to attends. pt still reports that just comes out and cant feel it some soft stool noted to attends and encouraged pt to bear down slightly to empty rectal vault of stool to prevent incont each time goes on commode. back to recliner and bladder scanned for 0cc. friend in to visit and joking with staff
[2019-10-11] MEDS: Senna/Docusate Sodium 1 Tablet PO (17:22)
[2019-10-11] MEDS: Atorvastatin Calcium 80 MG Tablet PO (21:02)
[2019-10-12] MEDS: Pantoprazole Sodium 40 MG Tablet PO (05:27)
[2019-10-12] MEDS: Acyclovir 200 MG Capsule 400 MG PO ×2 (05:27→17:07)
[2019-10-12] MEDS: Polyethylene Glycol 3350 17 GM PACKET PO (05:27)
[2019-10-12] MEDS: buPROPion (SR) 150 MG Tablet.SA PO ×2 (05:27→17:07)
[2019-10-12] MEDS: Mirabegron 25 MG TAB.ER.24H PO (05:27)
[2019-10-12] MEDS: Senna/Docusate Sodium 1 Tablet PO ×2 (05:27→17:07)
[2019-10-12] MEDS: Menthol/Lanolin/Calamine/Znox 113 GM Tube 1 APPLIC TOPICAL ×2 (05:30→20:08)
[2019-10-12] MEDS: Enoxaparin 60 MG/0.6 ML Syringe SC ×2 (05:31→17:08)
[2019-10-12] MEDS: dexAMETHasone 4 MG Tablet 20 MG PO (08:42)
[2019-10-12] MEDS: Calcium Carbonate 500 MG Tablet PO ×2 (08:42→17:05)
[2019-10-12] MEDS: Gabapentin 600 MG Tablet PO ×2 (08:42→17:07)
[2019-10-12 14:16] VITALS: BP 120/58; PULSE 97; RESP 18; TEMP 36.6; O2SAT 96
[2019-10-12] MEDS: Atorvastatin Calcium 80 MG Tablet PO (20:10)
[2019-10-12 20:19] VITALS: PULSE 92; RESP 16; O2SAT 97
[2019-10-13] MEDS: Pantoprazole Sodium 40 MG Tablet PO (05:34)
[2019-10-13] MEDS: Mirabegron 25 MG TAB.ER.24H PO (05:34)
[2019-10-13] MEDS: buPROPion (SR) 150 MG Tablet.SA PO ×2 (05:34→17:38)
[2019-10-13] MEDS: Acyclovir 200 MG Capsule 400 MG PO ×2 (05:34→17:38)
[2019-10-13] MEDS: Senna/Docusate Sodium 1 Tablet PO (05:34)
[2019-10-13] MEDS: Menthol/Lanolin/Calamine/Znox 113 GM Tube 1 APPLIC TOPICAL ×2 (05:37→20:41)
[2019-10-13] MEDS: Enoxaparin 60 MG/0.6 ML Syringe SC ×2 (05:38→17:37)
[2019-10-13] MEDS: Calcium Carbonate 500 MG Tablet PO ×2 (08:07→17:37)
[2019-10-13] MEDS: Gabapentin 600 MG Tablet PO ×2 (08:07→17:37)
[2019-10-13 14:00] VITALS: BP 116/53; PULSE 91; RESP 14; TEMP 36.3; O2SAT 100
--- NOTE | 2019-10-13 18:36 | NURSING ---
pt came out asking if Dr. Steven got electric w/ch ordered, message left with YANICK Swain. Dr. Steven aware.
[2019-10-13] MEDS: Atorvastatin Calcium 80 MG Tablet PO (20:43)
--- NOTE | 2019-10-13 20:45 | NURSING ---
Pt assessed and buttock dressing changed. pt given PM meds and denies needs. Merrill SPICER
[2019-10-14] MEDS: Menthol/Lanolin/Calamine/Znox 113 GM Tube 1 APPLIC TOPICAL ×2 (06:13→20:55)
[2019-10-14] MEDS: Enoxaparin 60 MG/0.6 ML Syringe SC ×2 (06:14→19:11)
[2019-10-14] MEDS: Polyethylene Glycol 3350 17 GM PACKET PO (06:14)
[2019-10-14] MEDS: Mirabegron 25 MG TAB.ER.24H PO (06:15)
[2019-10-14] MEDS: Senna/Docusate Sodium 1 Tablet PO (06:16)
[2019-10-14] MEDS: Pantoprazole Sodium 40 MG Tablet PO (06:16)
[2019-10-14] MEDS: Acyclovir 200 MG Capsule 400 MG PO ×2 (06:17→19:11)
[2019-10-14] MEDS: buPROPion (SR) 150 MG Tablet.SA PO ×2 (06:17→19:11)
[2019-10-14] MEDS: Calcium Carbonate 500 MG Tablet PO ×2 (08:20→19:10)
[2019-10-14] MEDS: Gabapentin 600 MG Tablet PO ×2 (08:20→19:10)
--- NOTE | 2019-10-14 11:20 | NURSING ---
Dressing changed after pt showered. Wound well approximated without drainage. Aquacell applied to pressure sore, ABD applied and secured with tape. Pt tolerated well.
--- NOTE | 2019-10-14 13:15 | NURSING ---
Pt left unit at 1315 with .
[2019-10-14 19:53] VITALS: BP 115/60; PULSE 91; RESP 16; TEMP 36.4; O2SAT 100
[2019-10-14] MEDS: Atorvastatin Calcium 80 MG Tablet PO (20:46)
[2019-10-14 20:55] VITALS: PULSE 88; RESP 16; O2SAT 96
--- NOTE | 2019-10-15 05:32 | PCA ---
Addendum entered by Jemima Vazquez 10/15/19 05:50: This nurse assess the pt no injuries noted at this time. Pt states, I started walking backward and could not stop. POWER DISTRIBUTOR stated pt step back and lower pt down with gait belt. Pt had proper foot wear on doing this time. Original Note: POWER DISTRIBUTOR was walking patient to the bathroom and patients knee gave out and they had to be lowered to the floor. notified POT LINING SUPERVISOR. vitals 98.8 temp, heart rate 85, oxygen 95% bp 117/65. patient stated having no pain.
[2019-10-15] MEDS: Menthol/Lanolin/Calamine/Znox 113 GM Tube 1 APPLIC TOPICAL ×2 (05:40→21:22)
[2019-10-15] MEDS: Enoxaparin 60 MG/0.6 ML Syringe SC ×2 (05:45→18:08)
[2019-10-15] MEDS: Pantoprazole Sodium 40 MG Tablet PO (05:47)
[2019-10-15] MEDS: buPROPion (SR) 150 MG Tablet.SA PO ×2 (05:47→18:09)
[2019-10-15] MEDS: Acyclovir 200 MG Capsule 400 MG PO ×2 (05:47→18:09)
[2019-10-15] MEDS: Senna/Docusate Sodium 1 Tablet PO ×2 (05:47→18:08)
[2019-10-15] MEDS: Mirabegron 25 MG TAB.ER.24H PO (05:48)
[2019-10-15] MEDS: Polyethylene Glycol 3350 17 GM PACKET PO (05:49)
[2019-10-15] MEDS: Calcium Carbonate 500 MG Tablet PO ×2 (07:36→18:07)
[2019-10-15] MEDS: Gabapentin 600 MG Tablet PO ×2 (07:36→18:08)
[2019-10-15 09:49] VITALS: PULSE 80; RESP 16; O2SAT 96
[2019-10-15 13:57] VITALS: BP 114/55; PULSE 88; RESP 16; TEMP 36.7; O2SAT 97
--- NOTE | 2019-10-15 14:14 | NURSING ---
Dressing to right buttocks changed. Wound well approximated with no drainage.
[2019-10-15] MEDS: Atorvastatin Calcium 80 MG Tablet PO (21:21)
[2019-10-16 05:55] VITALS: PULSE 89; O2SAT 97
[2019-10-16] MEDS: Acyclovir 200 MG Capsule 400 MG PO ×2 (06:05→17:32)
[2019-10-16] MEDS: Senna/Docusate Sodium 1 Tablet PO ×2 (06:05→17:32)
[2019-10-16] MEDS: Pantoprazole Sodium 40 MG Tablet PO (06:05)
[2019-10-16] MEDS: Enoxaparin 60 MG/0.6 ML Syringe SC ×2 (06:05→17:33)
[2019-10-16] MEDS: Polyethylene Glycol 3350 17 GM PACKET PO (06:05)
[2019-10-16] MEDS: Mirabegron 25 MG TAB.ER.24H PO (06:05)
[2019-10-16] MEDS: buPROPion (SR) 150 MG Tablet.SA PO ×2 (06:05→17:32)
[2019-10-16] MEDS: Menthol/Lanolin/Calamine/Znox 113 GM Tube 1 APPLIC TOPICAL ×2 (06:10→19:49)
[2019-10-16] MEDS: Gabapentin 600 MG Tablet PO ×2 (07:44→17:32)
[2019-10-16] MEDS: Calcium Carbonate 500 MG Tablet PO ×2 (07:44→17:30)
--- NOTE | 2019-10-16 12:11 | CASEMGMT ---
Social Work Patient is unsafe to ambulate long distances with cane or a walker and requires frequent rest breaks. Requires a w/c for mobility. Heidi Lugo, MOLD SHEET CLEANER RECEIVING WEIGHER
[2019-10-16 13:56] VITALS: BP 99/67; PULSE 95; RESP 16; TEMP 526.1; TEMP 979; O2SAT 94
--- NOTE | 2019-10-16 14:36 | NURSING ---
DRESSING CHANGED TO RIGHT BUTTOCK PRN FOR SOILING
[2019-10-16] MEDS: Acetaminophen 500 MG Tablet 1000 MG PO (19:48)
[2019-10-16] MEDS: MELATONIN 3 MG TABLET PO (19:48)
[2019-10-16] MEDS: Atorvastatin Calcium 80 MG Tablet PO (19:49)
[2019-10-17] MEDS: buPROPion (SR) 150 MG Tablet.SA PO ×2 (05:57→17:41)
[2019-10-17] MEDS: Enoxaparin 60 MG/0.6 ML Syringe SC ×2 (05:57→17:42)
[2019-10-17] MEDS: Acyclovir 200 MG Capsule 400 MG PO ×2 (05:57→17:42)
[2019-10-17] MEDS: Pantoprazole Sodium 40 MG Tablet PO (05:57)
[2019-10-17] MEDS: Mirabegron 25 MG TAB.ER.24H PO (05:57)
[2019-10-17] MEDS: Menthol/Lanolin/Calamine/Znox 113 GM Tube 1 APPLIC TOPICAL ×2 (05:58→20:31)
[2019-10-17] MEDS: Calcium Carbonate 500 MG Tablet PO ×2 (07:58→17:41)
[2019-10-17] MEDS: Gabapentin 600 MG Tablet PO ×2 (07:58→17:41)
[2019-10-17 09:33] VITALS: PULSE 96; RESP 16; O2SAT 95
[2019-10-17 14:16] VITALS: BP 113/40; PULSE 71; RESP 16; TEMP 36.8; O2SAT 97
--- NOTE | 2019-10-17 15:15 | NURSING ---
Pt up in chair has visitor at bedside. will assess right buttock wound later today or in am.
[2019-10-17] MEDS: Atorvastatin Calcium 80 MG Tablet PO (20:30)
[2019-10-18 06:01] LABS: Absolute Lymphocyte Count 1.13 X10^3/uL (0.83-4.51); Absolute Neutrophil Count 3.3 X10^3/uL (2.0-7.7); Basophil# 0.03 X10^3/uL; Basophil% 0.4 % (0-1); Eosinophil# 0.25 X10^3/uL; Eosinophils% 3.4 % (0-5); Hematocrit 36.7 % (37-47); Hemoglobin 11.5 g/dL (12.0-15.0); Lymphocyte # 1.13 X10^3/ul (4.0); Lymphocyte % 15.6 % (19-41); Mean Corp Hgb Conc 31.3 g/dL (32-36); Mean Corpuscular Hgb 33.6 pg (27.0-32.0); Mean Corpuscular Volume 107.3 fL (81-99); Mean Platelet Vol. 13.7 fl (6.2-12.0); Monocyte# 2.46 X10^3/uL; Monocyte% 33.9 % (0-10); NRBC Flagged by Analyzer 0 % (0-5); Neutrophil # 3.26 X10^3/uL (2.7-7.7); POSITIVE COUNT YES; POSITIVE DIFFERENTIAL YES; Platelet Count 95 K/mm3 (150-450); RBC Distribution Width CV 14.1 % (11.6-14.6); RBC Distribution Width SD 55.2 fl (35.1-43.9); Red Blood Count 3.42 M/mm3 (4.2-5.4); White Blood Count 7.3 K/mm3 (4.4-11.0)
[2019-10-18 06:28] LABS: Anion Gap 6 (5-15); BUN 34 mg/dL (7-18); BUN/Creat Ratio 45.5 RATIO (10-20); Calcium,Total 8.9 mg/dL (8.5-10.1); Chloride 108 mmol/L (98-107); Creatinine, Serum 0.75 mg/dL (0.55-1.02); EST Glomerular Filtration Rate 80 mL/min (>60); Est Glom Filt Rate - Afr Amer 97 mL/min (>60); Estimated Creatinine Clearance 40.21 ml/min; Glucose 96 mg/dL (74-106); Potassium 4.2 mmol/L (3.5-5.1); Sodium Level 141 mmol/L (136-145)
[2019-10-18] MEDS: Menthol/Lanolin/Calamine/Znox 113 GM Tube 1 APPLIC TOPICAL ×2 (06:54→22:14)
[2019-10-18] MEDS: Polyethylene Glycol 3350 17 GM PACKET PO (06:54)
[2019-10-18] MEDS: Pantoprazole Sodium 40 MG Tablet PO (06:55)
[2019-10-18] MEDS: Senna/Docusate Sodium 1 Tablet PO (06:55)
[2019-10-18] MEDS: Acyclovir 200 MG Capsule 400 MG PO ×2 (06:55→17:01)
[2019-10-18] MEDS: Mirabegron 25 MG TAB.ER.24H PO (06:55)
[2019-10-18] MEDS: buPROPion (SR) 150 MG Tablet.SA PO ×2 (06:55→17:01)
[2019-10-18] MEDS: Enoxaparin 60 MG/0.6 ML Syringe SC ×2 (06:55→17:01)
[2019-10-18 07:04] LABS: Differential Indicated SCAN CRITERIA MET
[2019-10-18 07:20] LABS: Differential Comment SCANNED
[2019-10-18] MEDS: Gabapentin 600 MG Tablet PO ×2 (08:16→17:01)
[2019-10-18] MEDS: Calcium Carbonate 500 MG Tablet PO ×2 (08:16→17:01)
[2019-10-18 14:19] VITALS: BP 114/63; PULSE 77; RESP 16; TEMP 36.8; O2SAT 97
[2019-10-18] MEDS: Atorvastatin Calcium 80 MG Tablet PO (22:14)
[2019-10-19] MEDS: buPROPion (SR) 150 MG Tablet.SA PO ×2 (06:09→18:42)
[2019-10-19] MEDS: Pantoprazole Sodium 40 MG Tablet PO (06:09)
[2019-10-19] MEDS: Acyclovir 200 MG Capsule 400 MG PO ×2 (06:09→18:55)
[2019-10-19] MEDS: Mirabegron 25 MG TAB.ER.24H PO (06:09)
[2019-10-19] MEDS: Menthol/Lanolin/Calamine/Znox 113 GM Tube 1 APPLIC TOPICAL ×2 (06:10→20:16)
[2019-10-19] MEDS: Enoxaparin 60 MG/0.6 ML Syringe SC ×2 (06:10→18:45)
[2019-10-19] MEDS: Gabapentin 600 MG Tablet PO ×2 (07:49→18:43)
[2019-10-19] MEDS: dexAMETHasone 4 MG Tablet 20 MG PO (07:49)
[2019-10-19] MEDS: Calcium Carbonate 500 MG Tablet PO ×2 (07:49→18:43)
--- NOTE | 2019-10-19 09:55 | MDS.RN ---
Pain interview for kurtis 10/20/19 completed.
--- NOTE | 2019-10-19 10:28 | NURSING ---
Pt left unit with at this time for doctors appt.
--- NOTE | 2019-10-19 14:20 | NURSING ---
In to assess the right buttock wound, but patient is currently off unit at a doctor's appt. Nurse states that the dressing was changed this am. will attempt to assess in am prior to patient being discharged home.
[2019-10-19 20:05] VITALS: BP 122/48; PULSE 98; RESP 16; TEMP 36.6; O2SAT 93
[2019-10-19] MEDS: Atorvastatin Calcium 80 MG Tablet PO (20:15)
[2019-10-20] MEDS: Enoxaparin 60 MG/0.6 ML Syringe SC (06:01)
[2019-10-20] MEDS: Acyclovir 200 MG Capsule 400 MG PO (06:01)
[2019-10-20] MEDS: Mirabegron 25 MG TAB.ER.24H PO (06:02)
[2019-10-20] MEDS: Pantoprazole Sodium 40 MG Tablet PO (06:02)
[2019-10-20] MEDS: buPROPion (SR) 150 MG Tablet.SA PO (06:02)
[2019-10-20] MEDS: Senna/Docusate Sodium 1 Tablet PO (06:02)
[2019-10-20] MEDS: Menthol/Lanolin/Calamine/Znox 113 GM Tube 1 APPLIC TOPICAL (06:15)
[2019-10-20] MEDS: Calcium Carbonate 500 MG Tablet PO (08:15)
[2019-10-20 10:00] VITALS: BP 104/75; PULSE 91; RESP 16; TEMP 36.6; O2SAT 97
[2019-10-20] MEDS: Gabapentin 600 MG Tablet PO (10:13)
--- NOTE | 2019-10-20 10:43 | CASEMGMT ---
Social Work BIMS and PHQ-9 completed for MDS assessment Lynne Krause, social work planner intern Heidi Lugo, TEST ENGINE MECHANIC TALENT SOLUTIONS MANAGER
[2019-10-20 11:50] VITALS: PULSE 91; RESP 16
--- NOTE | 2019-10-23 15:51 | CASEMGMT ---
Social Work Reviewed and agreed with social work record label intern documentation on this date. Heidi Lugo, FINANCE INTERN RANGER AIDE
== END 2019-10-20 15:30 | disposition home or self-care (01) | DRG 70 ==
PROVIDERS: Admitting Provider Family Medicine Geriatric Medicine; PCP Family Medicine; Visit Provider Family Medicine Geriatric Medicine
DX: G93.40 Encephalopathy, unspecified (principal); L89.313 Pressure ulcer of right buttock, stage 3; I69.354 Hemiplegia and hemiparesis following cerebral infarction affecting left non-dominant side; C90.00 Multiple myeloma not having achieved remission; G83.4 Cauda equina syndrome; K21.9 Gastro-esophageal reflux disease without esophagitis; E78.5 Hyperlipidemia, unspecified; F32.9 Major depressive disorder, single episode, unspecified; E55.9 Vitamin D deficiency, unspecified; D46.9 Myelodysplastic syndrome, unspecified; G25.0 Essential tremor; F01.50 Vascular dementia, unspecified severity, without behavioral disturbance, psychotic disturbance, mood disturbance, and anxiety; I10 Essential (primary) hypertension; F41.9 Anxiety disorder, unspecified; D32.9 Benign neoplasm of meninges, unspecified
CPT/HCPCS: 36415; 76770; 80048; 80053; 82607; 82728; 82784; 83540; 83550; 83883; 84165; 85025; 86334; 92507; 92523; 97110; 97116; 97162; 97167; 97530; 97535; 97802

== ENCOUNTER 2019-11-14 13:57 | Outpatient (RCR) | payer MEDICARE, OTHER, SELFPAY ==
[2019-11-08 13:42] VITALS: BMI 20.7
[2019-11-14 14:24] LABS: Color, Urine Yellow (Yellow); Glucose, Dipstick 250 mg/dl (Normal); Ketone-Dipstick 5 mg/dl (Negative); Leukocyte Esterase-Dipstick 100 /ul (Negative); Nitrite-Dipstick Negative (Negative); Occult Blood-Urine 50 /ul (Negative); Protein-Dipstick 500 mg/dl (Negative); Urine Bilirubin Dipstick Negative (Negative); Urine Clarity Cloudy (Clear); Urine Urobilinogen Normal (Normal)
== END 2019-11-14 18:00 | disposition home or self-care (01) ==
LOC: HHLAB 13:57
PROVIDERS: PCP Family Medicine; Referring Provider Family Medicine; Visit Provider Family Medicine
DX: R30.0 Dysuria (principal)
CPT/HCPCS: 81002; 87086

== ENCOUNTER 2019-11-17 10:30 | Outpatient (RCR) | payer MEDICARE, OTHER, SELFPAY ==
[2019-11-03 09:32] VITALS: BMI 24.4
[2019-11-03 11:51] VITALS: BP 88/58; PULSE 87; RESP 18; TEMP 36.3; BMI 20.7
--- NOTE | 2019-11-06 11:22 | PCM.WC.HP ---
(1) Pressure ulcer of right buttock, stage 3 Status: Chronic Current Visit: Yes Code(s): L89.313 - Pressure ulcer of right buttock, stage 3 (2) Debility Status: Chronic Current Visit: No Code(s): R53.81 - Other malaise (3) Myelodysplasia (myelodysplastic syndrome) Status: Chronic Current Visit: No Code(s): D46.9 - Myelodysplastic syndrome, unspecified (4) Myeloma Status: Chronic Current Visit: No Qualifiers: Code(s): C90.00 - Multiple myeloma not having achieved remission (5) Urinary incontinence Status: Chronic Current Visit: No Code(s): R32 - Unspecified urinary incontinence History of Present Illness Date of Service: 11/03/19 Chief Complaint: R buttock pressure ulcer History of Wound: Patient is a pleasant 74-year-old female who [facility] for re-evaluation of persistent pressure ulcer of R buttock, which has been present since mid-July 2019. She presents with her . Patient had previously presented to the [facility] 09/15/2019 for evaluation and treatment of this R buttock pressure ulcer. At that time, her R buttock pressure ulcer had been present for approximately 5 weeks. On 09/13/2019, patient had an appointment with her PCP, Dr. Wilson, at which time she expressed concern for infection. At the time of that appointment, patient was having foul-smelling drainage from her wound, and was applying OptiForm to wound at home. At her appointment with Dr. Wilson on 09/13/2019, wound cultures were collected and patient was empirically started on ciprofloxacin 500 mg twice daily x10 days. Her dressings were switched to Allevyn, and patient was instructed to change every other day or daily if needed due to soiling. After establishing with the wound healing center for treatment of her right buttock ulcer in August, patient was started on Santyl daily dressing changes. Patient's cultures returned with the following results: 3+ Hafnia alvei, 2+ Klebsiella pneumoniae, 2+ Staphylococcus warneri. Patient was started on Bactrim for additional bacteria coverage on 09/22/2019. Unfortunately, patient developed an adverse reaction to her antibiotics, and was admitted to [facility] on 09/24/2019 for acute kidney injury and encephalopathy. Following her inpatient admission, she was discharged to the transitional care unit. She is now residing back at home and receiving home health services. Her also aids in her care. Patient has a PMH significant for stroke, multiple myeloma (currently in remission), myelodysplastic syndrome, chronic urinary incontinence, and debility. She is primarily limited to using a wheelchair for transportation. She has post-stroke partial hemiplegia. She does have a walker, but is only able to take a few steps or stand for a few seconds when using this. She does not drive, and is primarily homebound. At her follow-up appointment with her primary care provider post hospitalization, it was noted that the right buttock ulcer had a large amount of slough, and patient was again referred to the wound healing center for further management of her right buttock ulcer. Patient and have been using Aquacel Ag with daily dressing changes to the right buttock ulcer. The patient denies any fever, chills, nausea, vomiting, or diarrhea. Denies any signs of infection, including increasing pain, redness, swelling, or foul-smelling/purulent drainage from affected area. Past Medical History Past Medical History: Chronic Problems (Last Reviewed 10/04/19 @ 14:27 by Anika Choudhary) Stroke (Chronic) 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 Gómez for tx of Multiple Myeloma HLD (hyperlipidemia) (Chronic) Anxiety and depression (Chronic) Debility (Chronic) Essential tremor (Chronic) Low back pain (Chronic) Vascular dementia (Chronic) Hypertension (Chronic) Neuropathic pain (Chronic) Left hemiparesis (Chronic) Anxiety (Chronic) Pressure ulcer of right buttock, stage 3 (Chronic) Urinary incontinence (Chronic) Chronic indwelling Bentley catheter (Chronic) Chronic anticoagulation (Chronic) on therapeutic Lovenox Epidural hematoma (Chronic) Cauda equina syndrome (Chronic) Myelodysplasia (myelodysplastic syndrome) (Chronic) Depression (Chronic) Cerebrovascular disease (Chronic) Macrocytosis (Chronic) MDS (myelodysplastic syndrome), low grade (Chronic) Myeloma (Chronic) Lung nodule (Chronic) Left upper lobe, May 2018 Liver lesion, right lobe (Chronic) Negative biopsy for malignancy June 29, 2018 Anemia (Chronic) Cognitive dysfunction (Chronic) Meningioma (Chronic) Surgical History: cholecystectomy, hysterectomy, tonsillectomy, - - Gamma knife meningioma. Surgery to evacuate a very large Lumbar hematoma causing cauda equina S. Allergies/Adverse Reactions: Allergies sulfamethoxazole [From Bactrim] Allergy (Severe, Verified 10/04/19 14:29) Other SEIZUERE, LOSS OF MOVEMENT IN LEGS trimethoprim [From Bactrim] Allergy (Severe, Verified 10/04/19 14:29) Other SEIZURE LOSS OF MOVEMENT IN LEGS morphine Adverse Reaction (Severe, Verified 10/04/19 14:29) Nausea Home Medications: Ambulatory Orders Medication Instructions Recorded Acyclovir [Zovirax] 400 mg PO BID 06/28/19 Pantoprazole Sodium [Protonix] 40 mg PO DAILY #30 tab 09/07/19 Atorvastatin Calcium [Lipitor] 80 mg PO QHS #30 tab 09/10/19 Cholecalciferol (Vitamin D3) 1 cap PO DAILY@0800 09/15/19 [Vitamin D3] Gabapentin 600 mg PO BID 09/22/19 Calcium Carbonate [Tums] 500 mg PO BIDCM 09/26/19 Mag Hydrox/Al Hydrox/Simeth 30 ml PO Q6H PRN PRN udc 09/26/19 [Mylanta II] Melatonin 3 mg PO QHS PRN PRN tab 09/26/19 Tamsulosin HCl [Flomax] 0.4 mg PO DAILY@1730 09/26/19 buPROPion SR [Wellbutrin SR (150mg 150 mg PO BID 09/26/19 tablets)] Acetaminophen [Tylenol] 1,000 mg PO Q6H PRN tab 09/27/19 Enoxaparin [Lovenox] 60 mg SUBCUT Q12@0600,1800 syringe 09/27/19 Menthol/Lanolin/Calamine/Znox 1 applic TOPICAL 0600,2200 tube 09/27/19 [Calmoseptine Ointment] Mineral Oil/Petrolatum,White 1 applic TOPICAL QHS jar 09/27/19 [Eucerin] Nutritional Supplement [Neil - 1 packet PO BIDCM #60 packet 09/27/19 ORANGE FLAVOR] Mirabegron [Myrbetriq] 25 mg PO DAILY #30 tab.er.24h 10/11/19 - Family History Maternal Family History: Family History (Last Reviewed 10/04/19 @ 14:27 by Anika Choudhary) Mother Breast cancer Sister Breast cancer Aunt Breast cancer Daughter History of malignant melanoma Father Brain cancer Brother Lung cancer Cancer - Mother with history of breast cancer. Paternal Family History: Family History (Last Reviewed 10/04/19 @ 14:27 by Anika Choudhary) Mother Breast cancer Sister Breast cancer Aunt Breast cancer Daughter History of malignant melanoma Father Brain cancer Brother Lung cancer Cancer - Father with history of brain cancer. Smoking Status: Never smoker Review of Systems Constitutional: Denies: Anorexia, Chills, Fever, Weight Change Eyes: Denies: Pain, Vision Change HEENT: Denies: Difficulty Hearing, Difficulty Swallowing Cardiovascular: Denies: Chest Pain, Edema, Palpitations Respiratory: Denies: Cough, Shortness of Breath, Wheezing Gastrointestinal: Denies: Abdominal Pain, Diarrhea, Nausea, Vomiting Genitourinary: Reports: Incontinence - Chronic urinary, and uses urinary catheter Musculoskeletal: Reports: Back Pain - Chronic Skin: Reports: Wounds - Right buttock wound onset mid July 2019 Neurological: Reports: - - Generalized weakness Endocrine: Denies: Heat/ Cold Intolerance, Polydipsia, Polyuria Hematologic/ Lymphatic: Reports: Anemia, Easy Bruising, Easy Bleeding - On Xarelto - Physical Exam Vital Signs Temp Pulse Resp BP 97.4 F L 87 18 88/58 L 11/03/19 11:51 11/03/19 11:51 11/03/19 11:51 11/03/19 11:51 General: Alert, Cooperative, No apparent distress HEENT: Atraumatic, EOMI, Normocephalic Oral: Moist Mucosa Neck: Supple, No JVD, Trachea Midline Lungs: Clear to auscultation, Normal air movement, No rhonchi, No wheeze, No rales Cardiovascular: Regular rate, Regular Rhythm Abdomen: Bowel Sounds Present, Soft, Non Tender Extremities: No clubbing, No cyanosis, No edema, Capillary Refill Less than 3 Seconds, Peripheral Pulses Normal Skin: Ulcer/ Wound - Right buttock ulcer, stage III with subcutaneous layer exposed. Moderate amount of slough present. No tunneling, undermining, or probing to bone. No warmth or tenderness to palpation. No purulent or foul-smelling drainage. Mild kassy-ulcer erythema. No surrounding maceration. Wound Measurements and Assessment WC - Nurse 1 - General Ulcer Measurement Start: 11/03/19 11:51 Freq: Status: Active Protocol: Activity Type Activity Date Activity User E-Sign Co-Sign Detail Recorded Client Recorded Date Recorded By Document 11/03/19 11:51 MW [id number] 11/03/19 12:00 MW 11/03/19 11:51 Wound Center Nurse 1 [Ulcer Assessment] #2 RIGHT BUTTOCK -Combined with other wound No -Current Size (cm) - Length 0.4 -Current Size (cm) - Width 0.2 -Current Size (cm) - Depth 0.2 -Total Square Cm 0.08 -Date of Last Picture (Recall this 11/03/19 field) -Photo Taken Yes -Epithelialization None Present -Tunneling No -Undermining/Tunneling No -Circular Undermining No -Exudate Amt None Present -Wound Margin Flat & Intact -Granulation Amt None Present (0 %) -Granulation Quality N/A -Slough/Fibrin Yes -Necrosis Amt Large (67-100%) -Necrotic Tissue Type Adherent Slough -Structure Exposed N/A -Texture (Kassy-wound Skin Appearance) No Abnormality, Assessed -Moisture (Kassy-wound Skin Appearance No Abnormality, ) Dry/Scaly -Color (Kassy-wound Skin Appearance) No Abnormality, Assessed -Temperature (Kassy-wound Skin No Abnormality Appearance) (Pt Warm) -Tenderness on Palpation (Kassy-wound Yes Skin Appearance) -Ulcer Cleansing Rinsed/ Irrigated with Saline -Foul Odor after Cleansing No -Anesthetic Used 5% Lidocaine Gel [Edema Assessment] -Lower Limb Edema Present No WC - Nurse 2 - General Ulcer CM Notes Start: 11/03/19 11:51 Freq: Status: Active Protocol: Activity Type Activity Date Activity User E-Sign Co-Sign Detail Recorded Client Recorded Date Recorded By Document 11/03/19 12:16 DV [id number] 11/03/19 12:21 DV 11/03/19 12:16 Wound Center Nurse 2 [Procedure/Treatment] #2 RIGHT BUTTOCK -Time 12:17 -Correct Patient Yes -Correct Side, Site, Position Yes -Correct Procedure Yes -Procedure Performed Yes -Type of Procedure Debridement -Clinical Debridement Subcutaneous -Post Debridement Size (cm) - Length 0.6 -Post Debridement Size (cm) - Width 0.4 -Post Debridement Size (cm) - Depth 0.2 -Total Square Cm 0.24 -Wound/Ulcer Outcome Not Healed -Ulcer Cleansing Rinsed/ Irrigated with Saline -Foul Odor after Cleansing No -Bioengineered Tissue No -Bleeding Controlled with Pressure -Offloading No -Treatment Response Procedure Tolerated Well [See Physician Procedure note for Specifics] Pain Scale: 0-10 Numeric [Pain] -Is Patient Pain Free? Yes Neurological: Unsteady Gait Psych/Mental Status: Normal Affect, Appropriate Debridement Note Post-Debridement Measurements/Treatment WC - Nurse 2 - General Ulcer CM Notes Start: 11/03/19 11:51 Freq: Status: Active Protocol: Activity Type Activity Date Activity User E-Sign Co-Sign Detail Recorded Client Recorded Date Recorded By Document 11/03/19 12:16 DV [id number] 11/03/19 12:21 DV 11/03/19 12:16 Wound Center Nurse 2 #2 RIGHT BUTTOCK -Time 12:17 -Correct Patient Yes -Correct Side, Site, Position Yes -Correct Procedure Yes -Procedure Performed Yes -Type of Procedure Debridement -Clinical Debridement Subcutaneous -Post Debridement Size (cm) - Length 0.6 -Post Debridement Size (cm) - Width 0.4 -Post Debridement Size (cm) - Depth 0.2 -Total Square Cm 0.24 -Wound/Ulcer Outcome Not Healed -Ulcer Cleansing Rinsed/ Irrigated with Saline -Foul Odor after Cleansing No -Bioengineered Tissue No -Bleeding Controlled with Pressure -Offloading No -Treatment Response Procedure Tolerated Well Pain Scale: 0-10 Numeric Is Patient Pain Free? Yes Wound debrided: Right buttock ulcer Laterality: Right Wound Grade/Stage: Stage III Type of Debridement: Excisional debridement Anesthesia Used: 5% Lidocaine Gel Depth: in the subcutaneous layer Percentage of wound debrided: 100 Instrument Used: 3mm curette Tissue Removed: Slough and devitalized tissue Severity: Fat Layer Exposed Amount of bleeding with debridement: Mild Bleeding Controlled with: Pressure Patient tolerated procedure well Assessment/Plan Active Problems (Last Reviewed 10/04/19 @ 14:27 by Anika Choudhary) Pressure ulcer of right buttock, stage 3 (Chronic) Assessment: Pressure ulcer of right buttock, stage III Plan: Debridement performed today in clinic as annotated above. Hydrogel and gauze applied. At home wound-care instructions: Continue daily dressing changes with Santyl. Apply as directed to pressure ulcer, and cover with gauze dressing. Change dressing daily, or as needed due to contamination/soiling. Home health care may assist with dressing changes when they are present in home. Off-loading: Avoid pressure on right buttock. Rotate every 1-2 hours to avoid new pressure ulcers from developing. Use chair cushion when seated. Diet: Patient encouraged to increase protein and vitamin C intake to promote wound healing. Labs/cultures/imaging: Cultures ordered and collected by Dr. Wilson on 09/13/2019 reviewed and discussed with patient and ; positive for Hafnia alvei, Klebsiella pneumoniae, and Staphylococcus warneri. Recent blood work reviewed in EMR. Follow-up: Return to clinic in 2 weeks for re-evaluation. Return sooner or report to the emergency room should symptoms worsen, or new symptoms arise. Call the [facility] with any questions. Note: [employer] speech recognition engineering technology instructor software was used to create portions of this document. Sound-alike and misspelled words, as well as other engineering technology instructor errors may be contained in the documentation. Office Visits / Consults: [id number] OV L3 Est [id number]: [id number] Candace subq tissue 20 sq cm/<
[2019-11-17 10:32] VITALS: BP 123/71; PULSE 96; RESP 18; TEMP 36.5; BMI 20.7
--- NOTE | 2019-11-17 12:29 | PN.PCM_ITS ---
(1) Pressure ulcer of right buttock, stage 3 Status: Resolved Current Visit: Yes Code(s): L89.313 - Pressure ulcer of right buttock, stage 3 (2) Debility Status: Chronic Current Visit: No Code(s): R53.81 - Other malaise (3) Myelodysplasia (myelodysplastic syndrome) Status: Chronic Current Visit: No Code(s): D46.9 - Myelodysplastic syndrome, unspecified (4) Myeloma Status: Chronic Current Visit: No Qualifiers: Code(s): C90.00 - Multiple myeloma not having achieved remission (5) Urinary incontinence Status: Chronic Current Visit: No Code(s): R32 - Unspecified urinary incontinence Type of Wound Date of Service: 11/17/19 Chief Complaint: R buttock pressure ulcer History of Wound: Patient is a pleasant 74-year-old female who [facility] for re-evaluation of persistent pressure ulcer of R buttock, which has been present since mid-July 2019. She presents with her . Patient had previously presented to the [facility] 09/[facility]/2019 for evaluation and treatment of this R buttock pressure ulcer. At that time, her R buttock pressure ulcer had been present for approximately 5 weeks. On 09/13/2019, patient had an appointment with her PCP, Dr. Wilson, at [facility] time she expressed concern for infection. At the time of that appointment, patient was having foul-smelling drainage from her wound, and was applying OptiForm to wound at home. At her appointment with Dr. Wilson on 09/13/2019, wound cultures were collected and patient was empirically started on ciprofloxacin 500 mg twice daily x10 days. Her dressings were switched to Allevyn, and patient was instructed to change every other day or daily if needed due to soiling. After establishing with the wound healing center for treatment of her right buttock ulcer in August, patient was started on Santyl daily dressing changes. Patient's cultures returned with the following results: 3+ Hafnia alvei, 2+ Klebsiella pneumoniae, 2+ Staphylococcus warneri. Patient was started on Bactrim for additional bacteria coverage on 09/22/2019. Unfortunately, patient developed an adverse reaction to her antibiotics, and was admitted to [facility] on 09/24/2019 for acute kidney injury and enc ephalopathy. Following her inpatient admission, she was discharged to the transitional care unit. She is now residing back at home and receiving home health services. Her also aids in her care. Patient has a PMH significant for stroke, multiple myeloma (currently in remission), myelodysplastic syndrome, chronic urinary incontinence, and debility. She is primarily limited to using a wheelchair for transportation. She has post-stroke partial hemiplegia. She does have a walker, but is only able to take a few steps or stand for a few seconds when using this. She does not drive, and is primarily homebound. At her follow-up appointment with her primary care provider post hospitalization, it was noted that the right buttock ulcer had a large amount of slough, and patient was again referred to the wound healing center for further management of her right buttock ulcer. Patient and have been using Aquacel Ag with daily dressing changes to the right buttock ulcer. The patient denies any fever, chills, nausea, vomiting, or diarrhea. Denies any signs of infection, including increasing pain, redness, swelling, or foul-smelling/purulent drainage from affected area. Progress of Wound: Right buttock wound is healed today, 11/17/2019. Patient was instructed by home health nurse to discontinue Santyl 3 days ago, and use skin protectant barrier ointment daily to affected area, and these are the instructions they have been following. The patient denies any fever, chills, nausea, vomiting, or diarrhea. Denies any signs of infection, including in creasing pain, redness, swelling, or drainage from affected area. - Physical Exam Vital Signs Temp Pulse Resp BP 97.7 F L 96 18 123/71 H 11/17/19 10:32 11/17/19 10:32 11/17/19 10:32 11/17/19 10:32 General: Alert, Cooperative, No apparent distress HEENT: Atraumatic, Normocephalic Lungs: Normal air movement Skin: Ulcer/ Wound - Right buttock ulcer is healed today. A small amount of dry, scaly skin was removed. No warmth or tenderness to palpation. No erythema or maceration of skin of affected area. Wound Measurements and Assessment WC - Nurse 1 - General Ulcer Measurement Start: 11/03/19 11:51 Freq: Status: Active Protocol: Activity Type Activity Date Activity User E-Sign Co-Sign Detail Recorded Client Recorded Date Recorded By Document 11/17/19 10:32 RB [id number] 11/17/19 10:40 RB 11/17/19 10:32 Wound Center Nurse 1 [Ulcer Assessment] #2 RIGHT BUTTOCK -Combined with other wound No -Current Size (cm) - Length 0.1 -Current Size (cm) - Width 0.1 -Current Size (cm) - Depth 0.1 -Total Square Cm 0.01 -Tunneling No -Undermining/Tunneling No -Circular Undermining No -Exudate Amt Small -Exudate Type Serosanguineous -Wound Margin Flat & Intact -Granulation Amt Medium (34-66%) -Granulation Quality [place] -Slough/Fibrin Yes -Necrosis Amt Large (67-100%) -Necrotic Tissue Type Adherent Slough -Structure Exposed N/A -Texture (Kassy-wound Skin Appearance) Assessed, Scarring -Moisture (Kassy-wound Skin Appearance Assessed ) -Color (Akssy-wound Skin Appearance) Assessed -Temperature (Kassy-wound Skin No Abnormality Appearance) (Pt Warm) -Tenderness on Palpation (Kassy-wound No Skin Appearance) -Ulcer Cleansing Wound Cleanser -Foul Odor after Cleansing No -Anesthetic Used 4% Lidocaine Solution WC - Nurse 2 - General Ulcer CM Notes Start: 11/03/19 11:51 Freq: Status: Active Protocol: Activity Type Activity Date Activity User E-Sign Co-Sign Detail Recorded Client Recorded Date Recorded By Document 11/17/19 10:52 DV [id number] 11/17/19 10:54 DV 11/17/19 10:52 Wound Center Nurse 2 [Procedure/Treatment] -Time 10:53 -Correct Patient Yes -Correct Side, Site, Position Yes -Correct Procedure No -Procedure Performed No -Post Debridement Size (cm) - Length 0 -Post Debridement Size (cm) - Width 0 -Post Debridement Size (cm) - Depth 0 -Total Square Cm 0 -Wound/Ulcer Outcome Healed- Epithelialized [See Physician Procedure note for Specifics] Pain Scale: 0-10 Numeric [Pain] -Is Patient Pain Free? Yes Musculoskeletal: Muscle Wasting Psych/Mental Status: Normal Affect, Appropriate Debridement Note Post-Debridement Measurements/Treatment WC - Nurse 2 - General Ulcer CM Notes Start: 11/03/19 11:51 Freq: Status: Active Protocol: Activity Type Activity Date Activity User E-Sign Co-Sign Detail Recorded Client Recorded Date Recorded By Document 11/03/19 12:16 DV [id number] 11/03/19 12:21 DV Document 11/17/19 10:52 DV [id number] 11/17/19 10:54 DV 11/03/19 11/17/19 12:16 10:52 Wound Center Nurse 2 #2 RIGHT BUTTOCK -Time 12:17 10:53 -Correct Patient Yes Yes -Correct Side, Site, Position Yes Yes -Correct Procedure Yes No -Procedure Performed Yes No -Type of Procedure Debridement -Clinical Debridement Subcutaneous -Post Debridement Size (cm) - Length 0.6 0 -Post Debridement Size (cm) - Width 0.4 0 -Post Debridement Size (cm) - Depth 0.2 0 -Total Square Cm 0.24 0 -Wound/Ulcer Outcome Not Healed Healed- Epithelialized -Ulcer Cleansing Rinsed/ Irrigated with Saline -Foul Odor after Cleansing No -Bioengineered Tissue No -Bleeding Controlled with Pressure -Offloading No -Treatment Response Procedure Tolerated Well Pain Scale: 0-10 Numeric Is Patient Pain Free? Yes Yes Assessment/Plan Assessment: Pressure ulcer of right buttock, stage III--healed Plan: Right buttock ulcer is healed. Discontinue use of Santyl. Continue to apply skin protectant/barrier ointment to clean and dry skin of affected area to prevent dryness or maceration of skin. Continue to avoid pressure on affected area, rotating every 1-2 hours. Avoid friction over affected area, as the skin at this site will continue to be fragile and vulnerable. May cover loosely with gauze as needed to help protect the area from friction. Continue with increased protein intake and adequate hydration to help keep skin healthy. Follow-up as needed for development of new wounds. Note: Collections speech re cognition correspondence section supervisor software was used to create portions of this document. Sound-alike and misspelled words, as well as other correspondence section supervisor errors may be contained in the documentation. Office Visits / Consults: [id number] OV L3 Est
== END 2019-11-28 23:59 ==
LOC: WC 10:30
PROVIDERS: PCP Family Medicine; Visit Provider Nurse Practitioner Family
DX: L89.313 Pressure ulcer of right buttock, stage 3 (principal); D46.9 Myelodysplastic syndrome, unspecified; C90.01 Multiple myeloma in remission; E78.5 Hyperlipidemia, unspecified; I10 Essential (primary) hypertension; F32.9 Major depressive disorder, single episode, unspecified; F41.9 Anxiety disorder, unspecified; I69.354 Hemiplegia and hemiparesis following cerebral infarction affecting left non-dominant side; R32 Unspecified urinary incontinence; Z79.899 Other long term (current) drug therapy; Z79.01 Long term (current) use of anticoagulants
CPT/HCPCS: 11042; 99212; 99213; G0463

== ENCOUNTER 2019-12-13 12:22 | Observation (INO) | payer MEDICARE, OTHER, SELFPAY ==
[2019-12-13] VITALS (8 sets, daily range): BP systolic 100–149; BP diastolic 55–66; PULSE 79–98; RESP 18–24; TEMP 36.2–36.6; O2SAT 94–99; BMI 23.7; BMI 23.3
[2019-12-13 12:30] LABS: Bedside Glucose 124 mg/dL (70-110)
--- NOTE | 2019-12-13 12:43 | EKG12_ITS ---
Test Reason : DIZZINESS Blood Pressure : / mmHG Vent. Rate : 087 BPM Atrial Rate : 087 BPM P-R Int : 158 ms QRS Dur : 082 ms QT Int : 368 ms P-R-T Axes : 057 017 051 degrees QTc Int : 442 ms Normal sinus rhythm Normal ECG Confirmed by TRINITY GARNICA, INGRIS ([id number]), mapping editor TYLER MORGAN ([id number]) on 12/19/2019 9:10:33 AM Referred By: DEVON Confirmed By:LEE PETERSEN MD
--- NOTE | 2019-12-13 12:44 | CT_ITS ---
STUDY: CTA HEAD AND NECK WITH CONTRAST REASON FOR EXAM: Female, 74 years old. DIZZINESS X 2 TODAY history of meningioma with gamma knife 2006. Multiple myeloma with chemo RADIATION DOSAGE (If Supplied By Facility): CTDIvol = ( 19.74 ) mGy, DLP = ( 1648.25 ) mGycm TECHNIQUE: CT angiography was performed with a multi-detector CT scanner. Data acquisition was obtained from the skull base through the vertex following intravenous administration of 100 ml isovue 370. MIP images were reconstructed from the axial data set. Post-processing of the angiographic images was performed, with multiplanar reformation and 3D reconstruction. Individualized dose optimization techniques were used for this CT. COMPARISON: CT of the head dated September 24, 2019 FINDINGS: Normal bilateral petrous carotid arteries. Normal right cavernous carotid artery with a normal supraclinoid bifurcation. Normal left cavernous carotid artery with a normal supraclinoid bifurcation. Normal right A1 segments of the anterior cerebral artery. Normal left A1 segments of the anterior cerebral artery. Normal intact anterior communicating artery (ACOM). Normal bilateral A2 segments of the anterior cerebral arteries. Normal right M1 and M2 segments of the middle cerebral arteries, with a normal M1 bifurcation. Normal left M1 and M2 segments of the middle cerebral arteries, with a normal M1 bifurcation. Normal basilar artery with a normal basilar bifurcation. The visualized bilateral superior cerebellar (SCA) arteries are normal. Normal bilateral P1, P2 and visualized P3 segments of the posterior cerebral arteries. Noncontrast CT examination of brain demonstrate the presence of left parasagittal meningioma measuring approximately 2.0 x 1.3 cm, stable since the prior examination. AORTIC ARCH: Normal visualized aortic arch. RIGHT CAROTID ARTERIES: Normal right common carotid artery (CCA). There is mild atherosclerotic plaque formation with minimal narrowing of the right carotid bulb. Normal origin of the right internal carotid (ICA) artery without a hemodynamically significant stenosis. Normal visualized cervical portion of the right internal carotid artery. Normal origin of the right external carotid artery (ECA). LEFT CAROTID ARTERIES: Normal left common carotid artery (CCA). There is mild atherosclerotic plaque formation with minimal narrowing of the left carotid bulb. Normal origin of the left internal carotid (ICA) artery without a hemodynamically significant stenosis. Normal visualized cervical portion of the left internal carotid artery. Normal origin of the left external carotid artery (ECA). VERTEBRAL ARTERIES: Normal bilateral vertebral arteries. CT/CTA Head AND Neck W/ Contrast IMPRESSION: CTA Head and neck without demonstrated occlusion or significant stenosis. Electronically Signed: Mckenzie Fernandez MD at 14:00 EDT Tel , Service support ,
--- NOTE | 2019-12-13 12:45 | ED.DCSUM_ITS ---
History of Present Illness Chief Complaint: Dizziness Informant: Patient Onset: Today Timing: Intermittent Current Severity: - - Resolved Maximum Severity: Moderate Narrative: Patient presents secondary to 2 episodes of vertigo. She states she got up at 3 AM this morning to go the restroom. The room was spinning and she had to sit on the side of the bed for 3 or 4 minutes before it resolved. When she got up this morning she was able to ambulate to the living room without difficulty. While sitting there watching television she had recurrent spinning sensation that lasted for just a minute or 2. Patient raises concern stating that she has had 7 prior strokes and has had similar symptoms with her strokes. She denies any vertigo currently. She denies any unilateral weakness associated with these vertigo episodes. - Past Medical History (1) Anxiety and depression Status: Chronic (2) Cerebrovascular disease Status: Chronic (3) Chronic anticoagulation Status: Chronic Comment: on therapeutic Lovenox (4) Epidural hematoma Status: Resolved (5) Essential tremor Status: Chronic (6) HLD (hyperlipidemia) Status: Chronic (7) Hypertension Status: Chronic (8) MDS (myelodysplastic syndrome), low grade Status: Chronic (9) Vascular dementia Status: Chronic Past Medical History - Allergies and Home Meds Allergies/Adverse Reactions: Allergies sulfamethoxazole [From Bactrim] Allergy (Severe, Verified 12/13/19 12:27) Other SEIZUERE, LOSS OF MOVEMENT IN LEGS trimethoprim [From Bactrim] Allergy (Severe, Verified 12/13/19 12:27) Other SEIZURE LOSS OF MOVEMENT IN LEGS morphine Adverse Reaction (Severe, Verified 12/13/19 12:27) Nausea Primary Care Physician: Augusta Wilson DO [Primary Care Provider] - Prior records reviewed: Yes Surgical History: cholecystectomy, hysterectomy, tonsillectomy, - - Gamma knife meningioma. Surgery to evacuate a very large Lumbar hematoma causing cauda equina S. Lives: Spouse/ Significant Other Smoking Status: Never smoker - Family History Maternal Family History: Family History (Last Reviewed 11/08/19 @ 11:44 by Anika Choudhary) Mother Breast cancer Sister Breast cancer Aunt Breast cancer Daughter History of malignant melanoma Father Brain cancer Brother Lung cancer Family History: Reports: Cancer - Mother with history of breast cancer. Paternal Family History: Family History (Last Reviewed 11/08/19 @ 11:44 by Anika Choudhary) Mother Breast cancer Sister Breast cancer Aunt Breast cancer Daughter History of malignant melanoma Father Brain cancer Brother Lung cancer Family History: Reports: Cancer - Father with history of brain cancer. Review of Systems General: Denies: Chills, Fever Eyes: Denies: Visual changes - bilaterally ENT: Denies: Bilateral ear pain Cardiovascular: Denies: Chest pain, Palpitations Respiratory: Denies: Dyspnea, Cough Gastrointestinal: Denies: Abdominal pain, Nausea, Vomiting, Diarrhea Genitourinary: Denies: Dysuria Musculoskeletal: Denies: Extremity Pain Skin: Denies: Rash Neurological: Denies: Headache Allergy: Denies: Uticaria Physical Exam Vital Signs/Narrative: Vital Signs Temp Pulse Resp BP Pulse Ox 12/13/19 12:23 97.5 F L 87 21 H 100/61 99 Inital Vital Signs reviewed: Yes General: Well nourished, Well developed Head: Normocephalic ENT: Moist mucous membranes Neck: Supple Cardiovascular: Regular rate, Regular rhythm Respiratory: No distress, CTA bilaterally Abdomen: Soft, Nontender Neurological: Alert, Oriented x3, - - Essential tremor noted. No focal neuro deficits. Patient able to hold both legs off the bed for 5 seconds. Normal strength in the upper extremities. Normal sensation noted. Psychological: Normal affect Diagnostic/Tx/Re-eval Impressions Head/Neck CTA 12/13/19 12:44 IMPRESSION: CTA Head and neck without demonstrated occlusion or significant stenosis. Electronically Signed: Mckenzie Fernandez MD at 14:00 EDT Tel , Service support , 12/13/19 12:44 CTA Head AND Neck W/ Contrast [CT] Stat Laboratory Results 12/13/19 12/13/19 12/13/19 12:25 12:36 12:36 WBC 9.7 RBC 4.02 L Hgb 13.2 Hct 40.8 MCV 101.5 H MCH 32.8 H MCHC 32.4 RDW Std Deviation 49.6 H RDW Coeff of [place] 13.2 Plt Count 148 L MPV 12.4 H Immature Gran % (Auto) 1.400 H Neut % (Auto) 83.3 H Lymph % (Auto) 6.5 L [place] % (Auto) 7.5 Eos % (Auto) 1.0 Baso % (Auto) 0.3 Absolute Neuts (auto) 8.1 H Absolute Lymphs (auto) 0.63 L Nucleated RBC % 0 PT 13.7 INR 1.1 APTT 37.7 H Sodium Potassium Chloride Carbon Dioxide Anion Gap BUN Creatinine Estim Creat Clear Calc Est GFR (MDRD) Af Amer Est GFR (MDRD) Non-Af BUN/Creatinine Ratio Glucose Calcium Troponin I POC Glucose 124 H 12/13/19 12:36 WBC RBC Hgb Hct MCV MCH MCHC RDW Std Deviation RDW Coeff of [place] Plt Count MPV Immature Gran % (Auto) Neut % (Auto) Lymph % (Auto) [place] % (Auto) Eos % (Auto) Baso % (Auto) Absolute Neuts (auto) Absolute Lymphs (auto) Nucleated RBC % PT INR APTT Sodium 140 Potassium 4.3 Chloride 104 Carbon Dioxide 31.0 Anion Gap 5 BUN 14 Creatinine 0.97 Estim Creat Clear Calc 41.45 Est GFR (MDRD) Af Amer 72 Est GFR (MDRD) Non-Af 60 BUN/Creatinine Ratio 14.5 Glucose 99 Calcium 9.2 Troponin I < 0.015 POC Glucose - EKG Initial EKG Interpretation: Sinus Rhythm - Sinus 87 with no acute ischemia. - Medical Decision Making Work is unremarkable. CTA of the head and neck are unremarkable. When I went back to reevaluate the patient she states that she had had another episode of vertigo while here in the emergency room. Symptoms lasted approximately 2 and half minutes and spontaneously resolved. Patient is very concerned about potential falls at home with this happens. She will get a bedside swallow eval here will be given p.o. Antivert. I will speak with hospitalist regarding observation overnight. ED Disposition - Plan for ED Patient: Disposition: Acute Care Hospital [facility] Diagnosis: Vertigo Referrals: Augusta Wilson DO [Primary Care Provider] -
[2019-12-13 12:53] LABS: Absolute Lymphocyte Count 0.63 X10^3/uL (0.83-4.51); Absolute Neutrophil Count 8.1 X10^3/uL (2.0-7.7); Basophil# 0.03 X10^3/uL; Basophil% 0.3 % (0-1); Hematocrit 40.8 % (37-47); Hemoglobin 13.2 g/dL (12.0-15.0); Lymphocyte # 0.63 X10^3/ul (4.0); Lymphocyte % 6.5 % (19-41); Mean Corp Hgb Conc 32.4 g/dL (32-36); Mean Corpuscular Hgb 32.8 pg (27.0-32.0); Mean Corpuscular Volume 101.5 fL (81-99); Mean Platelet Vol. 12.4 fl (6.2-12.0); Monocyte# 0.73 X10^3/uL; Monocyte% 7.5 % (0-10); NRBC Flagged by Analyzer 0 % (0-5); Neutrophil # 8.06 X10^3/uL (2.7-7.7); Neutrophil % 83.3 % (47-70); Platelet Count 148 K/mm3 (150-450); RBC Distribution Width CV 13.2 % (11.6-14.6); RBC Distribution Width SD 49.6 fl (35.1-43.9); Red Blood Count 4.02 M/mm3 (4.2-5.4); White Blood Count 9.7 K/mm3 (4.4-11.0)
[2019-12-13 12:56] LABS: International Normalized Ratio 1.1; Prothrombin Time (Protime)PT. 13.7 SECONDS (11.7-14.9)
[2019-12-13 12:57] LABS: Partial Thromboplast Time 37.7 Seconds (24.1-36.2)
[2019-12-13 13:06] LABS: Anion Gap 5 (5-15); BUN 14 mg/dL (7-18); BUN/Creat Ratio 14.5 RATIO (10-20); Calcium,Total 9.2 mg/dL (8.5-10.1); Chloride 104 mmol/L (98-107); Creatinine, Serum 0.97 mg/dL (0.55-1.02); EST Glomerular Filtration Rate 60 mL/min (>60); Est Glom Filt Rate - Afr Amer 72 mL/min (>60); Estimated Creatinine Clearance 41.45 ml/min; Glucose 99 mg/dL (74-106); Potassium 4.3 mmol/L (3.5-5.1); Sodium Level 140 mmol/L (136-145)
[2019-12-13] MEDS: Meclizine 12.5 MG Tablet PO ×3 (14:35→22:10)
--- NOTE | 2019-12-13 14:48 | NURSING ---
PCU OBS ASHELFAH VERTIGO
[2019-12-13] MEDS: 0.9% Normal Saline 1,000 ML 15 ML IV (14:54)
--- NOTE | 2019-12-13 15:07 | HP.PCM_ITS ---
<Perri Jones - Last Filed: 12/13/19 15:47> Problem List (1) Epidural hematoma Status: Resolved (2) HLD (hyperlipidemia) Status: Chronic (3) Anxiety and depression Status: Chronic (4) Essential tremor Status: Chronic (5) Low back pain Status: Chronic (6) Vascular dementia Status: Chronic (7) Hypertension Status: Chronic (8) Neuropathic pain Status: Chronic (9) Left hemiparesis Status: Chronic (10) Anxiety Status: Chronic (11) Chronic indwelling Bentley catheter Status: Chronic (12) Chronic anticoagulation Status: Chronic Comment: on therapeutic Lovenox (13) Cauda equina syndrome Status: Chronic (14) Myelodysplasia (myelodysplastic syndrome) Status: Chronic (15) Depression Status: Chronic (16) Cerebrovascular disease Status: Chronic (17) MDS (myelodysplastic syndrome), low grade Status: Chronic (18) Myeloma Status: Chronic (19) Lung nodule Status: Chronic Comment: Left upper lobe, May 2018 (20) Liver lesion, right lobe Status: Chronic Comment: Negative biopsy for malignancy June 29, 2018 (21) Anemia Status: Chronic (22) Cognitive dysfunction Status: Chronic (23) Meningioma Status: Chronic History of Present Illness Date of Admission: 12/13/19 Chief Complaint: Vertigo. The patient is a 74 year old F who presents emergency room due to vertigo. Patient states this began earlier this morning. She initially felt unsteady on her feet and had to sit down after standing due to feeling off balance. She later was sitting on the couch when she developed severe room spinning sensation along with nausea. She has had intermittent episodes since that time. She denies vision changes, slurred speech, unilateral weakness. Patient reports she has had 7 strokes in the past, she has not had vertigo with her prior strokes. Upon examination in the ER, she currently denies vertigo or nausea. She has a past medical history of CVAs x7, multiple myeloma, low risk MDS, chronic back pain, history of meningioma status post gamma knife, anxiety, depression, hyperlipidemia. Past Medical History Past Medical History (Chronic Problems): Chronic Problems (Last Reviewed 11/08/19 @ 11:44 by Anika Choudhary) HLD (hyperlipidemia) (Chronic) Anxiety and depression (Chronic) Essential tremor (Chronic) Low back pain (Chronic) Vascular dementia (Chronic) Hypertension (Chronic) Neuropathic pain (Chronic) Left hemiparesis (Chronic) Anxiety (Chronic) Chronic indwelling Bentley catheter (Chronic) Chronic anticoagulation (Chronic) on therapeutic Lovenox Cauda equina syndrome (Chronic) Myelodysplasia (myelodysplastic syndrome) (Chronic) Depression (Chronic) Cerebrovascular disease (Chronic) MDS (myelodysplastic syndrome), low grade (Chronic) Myeloma (Chronic) Lung nodule (Chronic) Left upper lobe, May 2018 Liver lesion, right lobe (Chronic) Negative biopsy for malignancy June 29, 2018 Anemia (Chronic) Cognitive dysfunction (Chronic) Meningioma (Chronic) Medical History: Medical History (Last Reviewed 11/08/19 @ 11:44 by Anika Choudhary) Cellulitis L03.90 left eye 1-2018 Meningioma D32.9 Gamma knife at [facility] ~2000 Osteopenia M85.80 Stroke I63.9 X2 - HOSPITALIZATION FOR 5 DAYS Allergies sulfamethoxazole [From Bactrim] Allergy (Severe, Verified 12/13/19 12:27) Other SEIZUERE, LOSS OF MOVEMENT IN LEGS trimethoprim [From Bactrim] Allergy (Severe, Verified 12/13/19 12:27) Other SEIZURE LOSS OF MOVEMENT IN LEGS morphine Adverse Reaction (Severe, Verified 12/13/19 12:27) Nausea Home Medications: Ambulatory Orders Medication Instructions Recorded Pantoprazole Sodium [Protonix] 40 mg PO DAILY #30 tab 09/07/19 Atorvastatin Calcium [Lipitor] 80 mg PO QHS #30 tab 09/10/19 Gabapentin 600 mg PO BID 09/22/19 Tamsulosin HCl [Flomax] 0.4 mg PO DAILY@1730 09/26/19 buPROPion SR [Wellbutrin SR (150mg 150 mg PO BID 09/26/19 tablets)] Enoxaparin [Lovenox] 60 mg SUBCUT Q12@0600,1800 syringe 09/27/19 Dexamethasone [Decadron] 20 mg PO WE 12/13/19 Mirabegron [Myrbetriq] 25 mg PO DAILY 12/13/19 Surgical History: Surgical History (Last Reviewed 11/08/19 @ 11:44 by Anika Choudhary) History of cholecystectomy Z90.49 History of hysterectomy Z90.710 Surgical History: cholecystectomy, hysterectomy, tonsillectomy, - - Gamma knife meningioma. Surgery to evacuate a very large Lumbar hematoma causing cauda equina S. 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 Paternal Family History: Family History (Last Reviewed 12/13/19 @ 15:44 by CHARLES Sanchez) Mother Breast cancer Sister Breast cancer Aunt Breast cancer Daughter History of malignant melanoma Father Brain cancer Brother Lung cancer History Items: Cancer - Father with history of brain cancer. Review of Systems Constitutional: Denies: Chills, Fever, Weight Change HEENT: Denies: Head Aches, Sinus Congestion, Sinus Drainage Cardiovascular: Denies: Chest Pain, Palpitations Respiratory: Denies: Cough, Shortness of breath at rest, Sputum production Gastrointestinal: Reports: Nausea. Denies: Abdominal Pain, Vomiting Genitourinary: Denies: Dysuria Musculoskeletal: Denies: Joint Pain, Joint Tenderness Skin: Denies: Rash, Wounds Neurological: Reports: Balance problems, - - vertigo Psychiatric: Reports: Anxiety, Depression Hematologic/ Lymphatic: Denies: Easy Bruising, Easy Bleeding VTE Information - Inpt Only VTE Present on Admission: No VTE Mechan Device Prophylaxis: None VTE Pharm Prophylaxis ordered?: Yes - Physical Exam Vitals/I&O's: Vital Signs Temp Pulse Resp BP Pulse Ox 97.8 F 81 24 H 108/55 L 97 12/13/19 14:55 12/13/19 14:55 12/13/19 14:55 12/13/19 14:55 12/13/19 14:55 Oxygen Delivery Method Room Air Weight: 133 lb 13.129 oz Body Mass Index (BMI) 23.7 Finger Stick Blood Glucose 101 General: Alert, Oriented x3, Cooperative HEENT: Atraumatic, PERRLA, EOMI, Normocephalic Neck: Supple, No JVD, Negative Carotid Bruits Lungs: Clear to auscultation, Normal air movement Cardiovascular: Regular rate, Regular Rhythm, Normal S1, Normal S2, No murmurs Abdomen: Bowel Sounds Present, Soft, Non Tender, Non-Distended Extremities: No clubbing, No cyanosis, No edema, Capillary Refill Less than 3 Seconds Skin: No rashes, No breakdown Musculoskeletal: No Tenderness to Palpation of Joints or Extremities Neurological: Cranial nerves II-XII grossly intact, Neuro grossly intact Psych/Mental Status: Normal Affect, Appropriate Laboratory Results 12/13/19 12:25: POC Glucose 124 H 12/13/19 12:36: WBC 9.7, RBC 4.02 L, Hgb 13.2, Hct 40.8, MCV 101.5 H, MCH 32.8 H , MCHC 32.4, RDW Std Deviation 49.6 H, RDW Coeff of [place] 13.2, Plt Count 148 L, MPV 12.4 H, Immature Gran % (Auto) 1.400 H, Neut % (Auto) 83.3 H, Lymph % (Auto) 6.5 L, [place] % (Auto) 7.5, Eos % (Auto) 1.0, Baso % (Auto) 0.3, Absolute Neuts (auto) 8.1 H, Absolute Lymphs (auto) 0.63 L, Nucleated RBC % 0 12/13/19 12:36: PT 13.7, INR 1.1, APTT 37.7 H 12/13/19 12:36: Sodium 140, Potassium 4.3, Chloride 104, Carbon Dioxide 31.0, Anion Gap 5, BUN 14, Creatinine 0.97, Estim Creat Clear Calc 41.45, Est GFR (MDRD) Af Amer 72, Est GFR (MDRD) Non-Af 60, BUN/Creatinine Ratio 14.5, Glucose 99, Calcium 9.2, Troponin I < 0.015 Current Medications Sodium Chloride () 1,000 mls @ 15 mls/hr IV .Q48H [facility] Last Admin: 12/13/19 14:54 Dose: 15 mls/hr Documented by: Assessment/Plan 1. Vertigo, rule out CVA-currently improved. CTA of head and neck without occlusion or stenosis. PRN meclizine. PRN antiemetics. PT/OT/ST. Vestibular therapy. Obtain MRI to rule out underlying CVA. Fall precautions. Aspirin, statin. 2. History of CVAs due to suspected underlying PAF, history of epidural hematoma with history of cauda equina status post injection while on anticoagulation- most recent CVA January 2019-previous left-sided hemiplegia improved. Continue Lovenox, statin. 3. Right buttock pressure ulcer stage III- healed. Recent follow up at wound center. Every 2 hours turns. 4. Multiple myeloma-on weekly Decadron, antiviral, bisphosphonate. Velcade on hold currently. 5. Low risk MDS-under surveillance by Dr. Gómez. 6. Chronic left upper lung nodule/right lobe liver lesion-malignancy ruled out, routine surveillance by oncology. 7. Chronic back pain-follows with pain management-continue PRN pain regimen. PT/OT. Continue gabapentin. 8. History of meningioma status post gamma knife-following with Dr. Gómez. 9. Anxiety/depression-continue Wellbutrin regimen. 10. Hyperlipidemia-continue statin. 11. Debility-related to prior CVA. Uses walker however primarily wheelchair. PT/OT as noted above. DVT prophylaxis-Lovenox subcu CODE STATUS: Discussed with patient including differences between full code, DNR CCA and DNR CC. Patient would like to remain full code however states she does not want any long-term life support. is the healthcare power of banking attorney. This patient was seen by CHARLES Sanchez under the supervision of Dr. Araya. <Cici Araya E - Last Filed: 12/13/19 16:55> History of Present Illness The patient is a 74 year old F [] Past Medical History Medical History: Medical History (Last Reviewed 11/08/19 @ 11:44 by Anika Choudhary) Cellulitis L03.90 left eye 1-2018 Meningioma D32.9 Gamma knife at [facility] ~2000 Osteopenia M85.80 Stroke I63.9 X2 - HOSPITALIZATION FOR 5 DAYS Allergies sulfamethoxazole [From Bactrim] Allergy (Severe, Verified 12/13/19 12:27) Other SEIZUERE, LOSS OF MOVEMENT IN LEGS trimethoprim [From Bactrim] Allergy (Severe, Verified 12/13/19 12:27) Other SEIZURE LOSS OF MOVEMENT IN LEGS morphine Adverse Reaction (Severe, Verified 12/13/19 12:27) Nausea Surgical History: Surgical History (Last Reviewed 11/08/19 @ 11:44 by Anika Choudhary) History of cholecystectomy Z90.49 History of hysterectomy Z90.710 - *Family History Maternal Family History: Family History (Last Reviewed 12/13/19 @ 15:44 by CHARLES Sanchez) Mother Breast cancer Sister Breast cancer Aunt Breast cancer Daughter History of malignant melanoma Father Brain cancer Brother Lung cancer Paternal Family History: Family History (Last Reviewed 12/13/19 @ 15:44 by CHARLES Sanchez) Mother Breast cancer Sister Breast cancer Aunt Breast cancer Daughter History of malignant melanoma Father Brain cancer Brother Lung cancer - Physical Exam Vitals/I&O's: Vital Signs Temp Pulse Resp BP Pulse Ox 97.7 F L 90 18 149/58 H 98 12/13/19 16:03 12/13/19 16:03 12/13/19 16:03 12/13/19 16:03 12/13/19 16:03 Oxygen Delivery Method Room Air Weight: 131 lb 6.328 oz Body Mass Index (BMI) 23.3 Finger Stick Blood Glucose 101 Laboratory Results 12/13/19 12:25: POC Glucose 124 H 12/13/19 12:36: WBC 9.7, RBC 4.02 L, Hgb 13.2, Hct 40.8, MCV 101.5 H, MCH 32.8 H , MCHC 32.4, RDW Std Deviation 49.6 H, RDW Coeff of [place] 13.2, Plt Count 148 L, MPV 12.4 H, Immature Gran % (Auto) 1.400 H, Neut % (Auto) 83.3 H, Lymph % (Auto) 6.5 L, [place] % (Auto) 7.5, Eos % (Auto) 1.0, Baso % (Auto) 0.3, Absolute Neuts (auto) 8.1 H, Absolute Lymphs (auto) 0.63 L, Nucleated RBC % 0 12/13/19 12:36: PT 13.7, INR 1.1, APTT 37.7 H 12/13/19 12:36: Sodium 140, Potassium 4.3, Chloride 104, Carbon Dioxide 31.0, Anion Gap 5, BUN 14, Creatinine 0.97, Estim Creat Clear Calc 41.45, Est GFR (MDRD) Af Amer 72, Est GFR (MDRD) Non-Af 60, BUN/Creatinine Ratio 14.5, Glucose 99, Calcium 9.2, Troponin I < 0.015 12/13/19 16:05: Magnesium Pending 12/13/19 16:05: Troponin I < 0.015, TSH 1.01 Current Medications Acetaminophen (Tylenol) 650 mg PO Q6H PRN PRN PRN Reason: Pain Score 1-10/10 Aspirin (Aspirin, Baby) 81 mg PO DAILY@0800 [facility] Atorvastatin Calcium (Lipitor) 80 mg PO QHS [facility] Bupropion HCl (Wellbutrin Sr (150mg Tablets)) 150 mg PO BID [facility] Dexamethasone (Decadron) 20 mg PO WE [facility] Enoxaparin Sodium (Lovenox) 60 mg SC Q12@0600,1800 [facility] Gabapentin (Neurontin) 600 mg PO BIDCM [facility] Hydralazine HCl (Apresoline Iv) 5 mg IV Q30M PRN PRN Reason: to maintain BP goals Sodium Chloride () 500 mls @ 15 mls/hr IV PRN PRN PRN Reason: Blood Transfusion Sodium Chloride () 250 mls @ 15 mls/hr IV .[id number] PRN PRN Reason: Saline Flush Sodium Chloride () 250 mls @ 15 mls/hr IV .[id number] PRN PRN Reason: Additional IVPB Infusion Labetalol HCl (Trandate) 10 - 20 mg IV Q10M PRN PRN PRN Reason: to maintain BP goals Meclizine HCl (Antivert) 12.5 mg PO 4X/DAY [facility] Mirabegron (Myrbetriq) 25 mg PO DAILY [facility] Ondansetron HCl (Zofran) 4 mg IV Q6H PRN PRN PRN Reason: NAUSEA Oxycodone HCl (Oxyir) 5 mg PO Q6H PRN PRN PRN Reason: Pain Score 6-10/10 Pantoprazole Sodium (Protonix) 40 mg PO DAILY [facility] Senna (Senokot) 2 tablet PO BID PRN PRN Reason: Constipation Sodium Chloride () 10 - 40 ml IV UD PRN PRN Reason: SALINE FLUSH Tamsulosin HCl (Flomax) 0.4 mg PO DAILY@1730 [facility] Assessment/Plan Hospitalist note: I am seeing this patient in conjunction with Perri Jones. I independently seen and examined the patient. History and physical, laboratory data and imaging studies reviewed and I concur with above admission and treatment plan. Patient presented to the emergency room because of dizziness, started earlier this morning, described as spinning, intermittent, associated with nausea and without aggravating factors. She denied vision changes, slurred speech, focal arm or leg weakness. She complained of chronic bilateral leg numbness and tingling. She denied ear pain, discharge or change in hearing. She denied chest pain or shortness of breath. In the emergency department, her vitals are stable. Her routine blood work was unremarkable. EKG revealed normal sinus rhythm, no acute segment changes and no cardiac arrhythmias. Troponin was negative. CTA head and neck showed no acute findings. She is being admitted f or [facility] for evaluation and treatment. - Physical Exam General: Alert, Oriented x3, Cooperative, No apparent distress. HEENT: Atraumatic, PERRLA, EOMI. Neck: Supple, No JVD, Negative Carotid Bruits, Trachea Midline, Thyroid Normal. Lungs: Clear to auscultation, Normal air movement, No rhonchi, No wheeze, No rales. Cardiovascular: Regular rate, Regular Rhythm, Normal S1, Normal S2, PMI Normal. Abdomen: Bowel Sounds Present, Soft, Non Tender, Non-Distended, No Hepato- splenomegaly. Extremities: No clubbing, No cyanosis, No edema Skin: No rashes, No breakdown Neurological: Cranial nerves are intact, normal power and tone of all limbs, tremors of the upper extremities. Vital Signs are stable. Assessment and plan: #1 vertigo: In context of history of recurrent strokes. At this time, no focal deficit. CTA head and neck was unremarkable. Patient has been on lifelong therapeutic Lovenox twice daily. Plan: Admit to PCU for observation, NIH stroke scale, MRI brain, Antivert PRN, IV antiemetics PRN, continue aspirin and statins, PT OT evaluation and treatment. If the MRI brain came back positive for stroke, will complete the standard work-up for stroke including 2D echocardiogram. #2 other chronic medical problems: Stable, continue current medications as above. this note was generated with EnglishUp dictation software. It may contain incorrect words, spelling, and punctuation that were not noted in checking the note before signing. OBSV E&M: [id number] Initial observation care L3
--- NOTE | 2019-12-13 15:42 | CHAPLAIN ---
Type of Pastoral Visit _x__ Initial Visit ___ Follow-up Visit ___ On-call Visit ___ General Patient Visit ___ Spiritual Assessment ___ Family Conference ___ Bereavement ___ Rapid Response ___ Code Blue ___ Other (describe below) Pastoral Care Referral From _x__ Patient _x__ Family ___ Nurse ___ Physician ___ Juvenile Corrections Officer ___ Delivery Clerk ___ Other (describe below) Sacrament/Intervention _x__ Active listening ___ Anointing ___ Yarsanism ___ Bereavement ___ Communion ___ Orly exploration ___ ___ Life review _x__ Prayer ___ Reconciliation ___ Sacrament of Sick _x__ Supportive presence ___ Wedding ___ Other (describe below) Pastoral Comments patient's spouse was in the hallway getting [employer] food for self and received support for this patient who has been hospitalized here often; went into pt room to offer support; pt very welcoming of support, presence, and prayer; 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
--- NOTE | 2019-12-13 15:53 | MRI_ITS ---
STUDY: MRI BRAIN WITHOUT CONTRAST REASON FOR EXAM: Female, 74 years old. vertigo, hx prior cva x 7, multiple myeloma TECHNIQUE: Standardized multiplanar fat and water weighted pulse sequences were obtained. COMPARISON: MRI of the brain February 03, 2019 FINDINGS: Moderate atrophy and periventricular white matter ischemic changes are seen without mass effect or restricted diffusion. There are old infarcts in the left frontal and parietal lobes.. There is also an old deep white matter infarct in the right frontal parietal region Chronic ischemic changes are seen within the tess bilaterally. Normal bilateral basal ganglia. Normal thalami. There is no extra-axial fluid accumulation. Small extra-axial dural based lesion noted in the left parietal lobe at the skull vertex and the midline consistent with known meningioma as well as smaller lesion in left frontal lobe. Normal flow voids within the major intracranial circulation suggesting patency by spin echo criteria. Normal sella turcica, pituitary gland, infundibular stalk, optic chiasm and hypothalamus. Normal tectal plate and pineal gland. Normal midbrain, and medulla. Normal cerebellum. Normal basal cisterns. Normal bilateral temporal bones. Normal bilateral internal auditory canals. No demonstrated orbital abnormality, within the constraints of a routine brain study. Normal visualized paranasal sinuses. Normal calvarium and skull base. Normal visualized soft tissue structures. Normal visualized upper cervical spine. Lesions in the left frontal lobe and right frontal parietal region are new findings since previous study. The meningiomas are relatively unchanged in size given unenhanced nature of the study MRI/Brain without Contrast IMPRESSION: Periventricular white matter ischemic changes and old focal infarcts. No evidence for acute infarct at this time. Small left frontal and parietal meningiomas unchanged in size since previous exam. Electronically Signed: Narinder Cassidy MD at 18:23 EDT , Service support ,
[2019-12-13 16:40] LABS: Thyroid Stim Hormone (TSH) 1.01 uIU/mL (0.358-3.74)
[2019-12-13] MEDS: Gabapentin 600 MG Tablet PO (17:16)
[2019-12-13] MEDS: Enoxaparin 60 MG/0.6 ML Syringe SC (17:16)
[2019-12-13] MEDS: Tamsulosin HCl 0.4 MG Capsule PO (17:16)
[2019-12-13] MEDS: Senna Tablet 2 TABLET PO (17:16)
[2019-12-13] MEDS: buPROPion (SR) 150 MG Tablet.SA PO (20:37)
[2019-12-13] MEDS: Atorvastatin Calcium 80 MG Tablet PO (20:38)
[2019-12-14 00:40] VITALS: BP 138/68; PULSE 97; RESP 16; TEMP 36.6; O2SAT 96
[2019-12-14 02:58] VITALS: PULSE 89
[2019-12-14] MEDS: 0.9% Saline Lock 10 ML Syringe IV (05:56)
[2019-12-14] MEDS: Enoxaparin 60 MG/0.6 ML Syringe SC (05:56)
[2019-12-14 06:00] VITALS: BP 124/80; PULSE 80; RESP 18; TEMP 36.9; O2SAT 98
[2019-12-14 06:36] LABS: Cholesterol 102 mg/dL (200); High Density Lipoprotein 45 mg/dL; Triglycerides 59 mg/dL; Very Low Density Lipoprotein 12 mg/dL (5-40)
[2019-12-14 07:00] VITALS: PULSE 83
[2019-12-14 07:32] VITALS: O2SAT 95
[2019-12-14 09:29] VITALS: BP 127/49; PULSE 97; RESP 16; TEMP 36.7; O2SAT 95
[2019-12-14] MEDS: Meclizine 12.5 MG Tablet PO (09:31)
[2019-12-14] MEDS: Gabapentin 600 MG Tablet PO (09:32)
[2019-12-14] MEDS: Aspirin 81 MG TAB.CHEW PO (09:32)
[2019-12-14] MEDS: Mirabegron 25 MG TAB.ER.24H PO (09:32)
[2019-12-14] MEDS: Pantoprazole Sodium 40 MG Tablet PO (09:32)
--- NOTE | 2019-12-14 09:51 | PCM.DC ---
You will use the following diet at home:: Cardiac Your food should be the consistency of: Regular Your liquids should be the consistency of: Regular/Thin Discharge Activity: Return to Normal Activity, May Not Drive - if experiencing vertigo, or if requiring meclizine. Allergies/Adverse Reactions: Allergies sulfamethoxazole [From Bactrim] Allergy (Severe, Verified 12/13/19 12:27) Other SEIZUERE, LOSS OF MOVEMENT IN LEGS trimethoprim [From Bactrim] Allergy (Severe, Verified 12/13/19 12:27) Other SEIZURE LOSS OF MOVEMENT IN LEGS morphine Adverse Reaction (Severe, Verified 12/13/19 12:27) Nausea Medications to take at Discharge Pantoprazole Sodium [Protonix] 40 mg PO DAILY #30 tab 09/07/19 Atorvastatin Calcium [Lipitor] 80 mg PO QHS #30 tab 09/10/19 Gabapentin 600 mg PO BID 09/22/19 Tamsulosin HCl [Flomax] 0.4 mg PO DAILY@1730 09/26/19 buPROPion SR [Wellbutrin SR (150mg tablets)] 150 mg PO BID 09/26/19 Enoxaparin [Lovenox] 60 mg SUBCUT Q12@0600,1800 syringe 09/27/19 Dexamethasone [Decadron] 20 mg PO WE 12/13/19 Mirabegron [Myrbetriq] 25 mg PO DAILY 12/13/19 Aspirin [Aspirin, Baby] 81 mg PO DAILY@0800 tab.chew 12/14/19 Meclizine HCl [Antivert] 12.5 mg PO TID PRN PRN #21 tab 12/14/19 The following prescriptions were given: Meclizine HCl [Antivert] 12.5 mg PO TID PRN PRN #21 tab PRN Reason: Vertigo Transmission Status: Pending to [facility]30 Primary Care Physician: Augusta Wilson DO [Primary Care Provider] - Please follow up with your Primary Care Physician in: 1-2 weeks Test Results: Test results from this visit will be discussed in further detail at your follow-up appointment, if applicable. Proposed Discharge Date: 12/14/19
[2019-12-14] MEDS: buPROPion (SR) 150 MG Tablet.SA PO (10:26)
--- NOTE | 2019-12-14 13:05 | DS.PCM_ITS ---
<Mateo Quispe - Last Filed: 12/14/19 13:05> Discharge Date and Diagnosis Date of Admission: 12/13/19 Date of Discharge: 12/14/19 - Primary Discharge Diagnosis Vertigo - positional Hx multiple strokes Hx epidural hematoma, cauda equina Hx chronic lovenox tx Multiple Myeloma MDS Non malignant CRYSTAL lung and right lobe liver lesions Hx meningioma s/p gamma knife - Secondary Discharge Diagnosis Chronic Problems (Last Reviewed 11/08/19 @ 11:44 by Anika Choudhary) HLD (hyperlipidemia) (Chronic) Anxiety and depression (Chronic) Essential tremor (Chronic) Low back pain (Chronic) Vascular dementia (Chronic) Hypertension (Chronic) Neuropathic pain (Chronic) Left hemiparesis (Chronic) Anxiety (Chronic) Chronic indwelling Bentley catheter (Chronic) Chronic anticoagulation (Chronic) on therapeutic Lovenox Cauda equina syndrome (Chronic) Myelodysplasia (myelodysplastic syndrome) (Chronic) Depression (Chronic) Cerebrovascular disease (Chronic) MDS (myelodysplastic syndrome), low grade (Chronic) Myeloma (Chronic) Lung nodule (Chronic) Left upper lobe, May 2018 Liver lesion, right lobe (Chronic) Negative biopsy for malignancy June 29, 2018 Anemia (Chronic) Cognitive dysfunction (Chronic) Meningioma (Chronic) Hospital Course and Treatment Imaging Results: CT/CTA Head AND Neck W/ Contrast IMPRESSION: CTA Head and neck without demonstrated occlusion or significant stenosis. MRI/Brain without Contrast IMPRESSION: Periventricular white matter ischemic changes and old focal infarcts. No evidence for acute infarct at this time. Small left frontal and parietal meningiomas unchanged in size since previous exam. Operations: None Procedures: None Summary of Care Provided: Hospital course: The patient is a 74 year old F with pmhx as above who presented to the ER with c/o vertigo that she first noticed when she got out of bed, causing her to sit down as she felt unsteady on her feet. She had another episode while sitting on the cough the room started spinning and she became nauseous. She had several more episodes that would come and go. She did not have any other focal symptoms. With her hx of 7 prior strokes she was admitted for stroke work up. CTA head and neck was negative. MRI was obtained and did not show an acute stroke. She was given meclizine and had complete relief of her symptoms. She was felt to have BPPV. She was discharged home in stable condition. She was given an Rx for meclizine. I advised her that if her symptoms return she was discuss with her PCP referral for vestibular therapy or referral to ENT. This patient was seen by Mateo Quispe PA-C under the supervision of Doctor Banda. [] - Physical Exam Vitals/I&O's: Vital Signs Temp Pulse Resp BP Pulse Ox 98.0 F 97 16 127/49 H 95 12/14/19 09:29 12/14/19 09:29 12/14/19 09:29 12/14/19 09:29 12/14/19 09:29 Oxygen Delivery Method Room Air Weight: 131 lb 6.328 oz Body Mass Index (BMI) 23.3 Finger Stick Blood Glucose 101 Intake and Output for Last 24 Hours 12/12/19 12/13/19 12/14/19 23:59 23:59 23:59 Intake Total 100 / 320 591 / 591 Balance 100 / 320 591 / 591 General: Alert, Oriented x3, Cooperative HEENT: Atraumatic, PERRLA, EOMI, Normocephalic Neck: Supple, No JVD, Negative Carotid Bruits Lungs: Clear to auscultation, Normal air movement Cardiovascular: Regular rate, No murmurs Abdomen: Bowel Sounds Present, Soft, Non Tender Extremities: No edema, Capillary Refill Less than 3 Seconds Skin: No rashes, No breakdown Musculoskeletal: No Tenderness to Palpation of Joints or Extremities Neurological: Cranial nerves II-XII grossly intact Psych/Mental Status: Normal Affect, Appropriate, Alert and oriented to time, place, person, mood and affect Laboratory Results 12/13/19 12:36: Sodium 140, Potassium 4.3, Chloride 104, Carbon Dioxide 31.0, Anion Gap 5, BUN 14, Creatinine 0.97, Estim Creat Clear Calc 41.45, Est GFR (MDRD) Af Amer 72, Est GFR (MDRD) Non-Af 60, BUN/Creatinine Ratio 14.5, Glucose 99, Calcium 9.2, Troponin I < 0.015 12/13/19 16:05: Magnesium 2.0 12/13/19 16:05: Troponin I < 0.015, TSH 1.01 12/14/19 05:42: Triglycerides 59, Cholesterol 102, LDL Cholesterol 45, VLDL Cholesterol 12, HDL Cholesterol 45 Discharge Diet: Low fat/ Low Cholesterol, 2000 mg Sodium Diet Discharge Activity: Return to Normal Activity, May Not Drive - if experiencing vertigo, or if requiring meclizine. Home Medications: Medications to take at Discharge Pantoprazole Sodium [Protonix] 40 mg PO DAILY #30 tab 09/07/19 Atorvastatin Calcium [Lipitor] 80 mg PO QHS #30 tab 09/10/19 Gabapentin 600 mg PO BID 09/22/19 Tamsulosin HCl [Flomax] 0.4 mg PO DAILY@1730 09/26/19 buPROPion SR [Wellbutrin SR (150mg tablets)] 150 mg PO BID 09/26/19 Enoxaparin [Lovenox] 60 mg SUBCUT Q12@0600,1800 syringe 09/27/19 Dexamethasone [Decadron] 20 mg PO WE 12/13/19 Mirabegron [Myrbetriq] 25 mg PO DAILY 12/13/19 Aspirin [Aspirin, Baby] 81 mg PO DAILY@0800 tab.chew 12/14/19 Meclizine HCl [Antivert] 12.5 mg PO TID PRN PRN #21 tab 12/14/19 Following Prescrptions Were Given to Patient: Meclizine HCl [Antivert] 12.5 mg PO TID PRN PRN #21 tab PRN Reason: Vertigo Transmission Status: Received by [facility] Mobile App #[id number] Primary Care Physician: Augusta Wilson DO [Primary Care Provider] - Please follow up with your Primary Care Physician in: 1-2 weeks Disposition: Home Minutes spent on discharge:: 35 Patient Condition:: Stable Medical Necessity - Tobacco Use Smoking Status: Never smoker Meaningful Use Info Meaningful Use Diagnoses (Choose all that apply): None applicable <[place] - Last Filed: 12/14/19 13:58> Discharge Date and Diagnosis - Secondary Discharge Diagnosis Chronic Problems (Last Reviewed 11/08/19 @ 11:44 by Anika Choudhary) HLD (hyperlipidemia) (Chronic) Anxiety and depression (Chronic) Essential tremor (Chronic) Low back pain (Chronic) Vascular dementia (Chronic) Hypertension (Chronic) Neuropathic pain (Chronic) Left hemiparesis (Chronic) Anxiety (Chronic) Chronic indwelling Bentley catheter (Chronic) Chronic anticoagulation (Chronic) on therapeutic Lovenox Cauda equina syndrome (Chronic) Myelodysplasia (myelodysplastic syndrome) (Chronic) Depression (Chronic) Cerebrovascular disease (Chronic) MDS (myelodysplastic syndrome), low grade (Chronic) Myeloma (Chronic) Lung nodule (Chronic) Left upper lobe, May 2018 Liver lesion, right lobe (Chronic) Negative biopsy for malignancy June 29, 2018 Anemia (Chronic) Cognitive dysfunction (Chronic) Meningioma (Chronic) Hospital Course and Treatment Summary of Care Provided: This patient was seen in conjunction with MAURA Miller. I have independently interviewed and examined the patient and reviewed pertinent historical, laboratory, and other data. Please refer to MAURA Miller note for his pat fahadnt's presentation, findings, and recommendations. I have reviewed and his note and concur with his documentation 74-year-old female with multiple comorbidities who presented with vertigo of 1 day duration. Patient has history of multiple strokes. CT of the head and neck was negative. MRI of the brain was also negative for acute stroke. Patient was monitored overnight with no acute changes. She improved with meclizine. Physical Exam: Gen: Comfortable not pale, not jaundiced CVS:HS I +II, regular, no murmurs RESP: CTA GI: BS present and normal, soft, nontender, no palpable organs EXT:No edema - Physical Exam Vitals/I&O's: Vital Signs Temp Pulse Resp BP Pulse Ox 98.0 F 97 16 127/49 H 95 12/14/19 09:29 12/14/19 09:29 12/14/19 09:29 12/14/19 09:29 12/14/19 09:29 Oxygen Delivery Method Room Air Weight: 59.6 kg Body Mass Index (BMI) 23.3 Finger Stick Blood Glucose 101 Intake and Output for Last 24 Hours 12/12/19 12/13/19 12/14/19 23:59 23:59 23:59 Intake Total 100 / 320 591 / 591 Balance 100 / 320 591 / 591 Laboratory Results 12/13/19 16:05: Magnesium 2.0 12/13/19 16:05: Troponin I < 0.015, TSH 1.01 12/14/19 05:42: Triglycerides 59, Cholesterol 102, LDL Cholesterol 45, VLDL Cholesterol 12, HDL Cholesterol 45 OBSV E&M: [id number] Observation care discharge
== END 2019-12-14 09:52 | disposition home or self-care (01) ==
LOC: ED 14:27 → PCU 15:00
PROVIDERS: Nurse Practitioner Family; Admitting Provider Hospitalist; Emergency Provider Emergency Medicine; PCP Family Medicine; Visit Provider Internal Medicine
DX: R42 Dizziness and giddiness (principal); C90.00 Multiple myeloma not having achieved remission; D46.9 Myelodysplastic syndrome, unspecified; E78.5 Hyperlipidemia, unspecified; G25.0 Essential tremor; F41.9 Anxiety disorder, unspecified; F32.9 Major depressive disorder, single episode, unspecified; I10 Essential (primary) hypertension; F01.50 Vascular dementia, unspecified severity, without behavioral disturbance, psychotic disturbance, mood disturbance, and anxiety; G81.94 Hemiplegia, unspecified affecting left nondominant side; R91.1 Solitary pulmonary nodule; G89.29 Other chronic pain; Z79.01 Long term (current) use of anticoagulants; Z79.899 Other long term (current) drug therapy; Z86.011 Personal history of benign neoplasm of the brain; Z86.73 Personal history of transient ischemic attack (TIA), and cerebral infarction without residual deficits; K76.9 Liver disease, unspecified
CPT/HCPCS: 36415; 70496; 70498; 70551; 71260; 80048; 80053; 80061; 82784; 82962; 83735; 83883; 84165; 84443; 84484; 85025; 85610; 85730; 86334; 93005; 94762; 96372; 97161; 97166; 99218; 99285; J7030; Q9967; A4216; G0378

== ENCOUNTER → 2019-12-13 13:16 | Outpatient (CLI) | payer MEDICARE, OTHER, SELFPAY ==
[2019-11-08 13:42] VITALS: BMI 20.7
[2019-12-13 12:23] VITALS: BMI 23.7
--- NOTE | 2019-12-13 13:17 | CT_ITS ---
STUDY: CT CHEST WITH CONTRAST REASON FOR EXAM: Female, 74 years old. F/u lung nodule. History of multiple myeloma with chemo RADIATION DOSAGE (If Supplied By Facility): CTDIvol = ( 19.74 ) mGy, DLP = ( 1648.25 ) mGycm TECHNIQUE: Transaxial imaging was performed following intravenous administration of IV 100mL Isovue-370. Multiplanar coronal and sagittal images were reformatted. Individualized dose optimization techniques were used for this CT. COMPARISON: Comparison is made with prior examination dated June 22, 2018. FINDINGS: Stable mild degree of scarring at the lung apices. 1.3 cm groundglass appearing nodule in the anterior aspect of the left upper lobe with the scarring in its midportion. This has decreased in size as compared to prior examination. Stable 6.6 mm groundglass nodule in the right upper lobe as seen on axial image #198. The previously seen reticular densities in the posterior aspect of the left upper lobe has decreased in size. The previously seen irregularity in the posterior aspect of the right upper lobe is not seen at this time. There is no demonstrated pleural abnormality. Normal heart and pericardium. Normal mediastinum. Normal hilar regions. Normal enhanced pulmonary arteries. Normal aorta arch and descending thoracic aorta. There are multi-level degenerative changes of the thoracic spine. Splenomegaly. There is a 2.9 cm x 2.7 cm hypodense nodule in the peripheral lateral aspect of the right lobe of the liver. A dedicated CT scan of the abdomen is recommended for further evaluation. There is also evidence of a 2.2 cm x 2.1 cm hypodense nodule in the superior lateral aspect of the right lobe of the liver. There appears to be some posterior mural enhancement suggestive of hemangioma. These findings are unchanged as compared to prior study. CT/Chest WITH Contrast IMPRESSION: Stable findings in the upper abdomen. Since prior study, there has been improvement in the previously seen irregularities in both lungs. Electronically Signed: Kenyon Carmen, at 14:50 EDT , Service support ,
== END ==
PROVIDERS: PCP Family Medicine; Referring Provider Internal Medicine Hematology & Oncology; Visit Provider Internal Medicine Hematology & Oncology
DX: R91.1 Solitary pulmonary nodule (principal); C90.00 Multiple myeloma not having achieved remission
CPT/HCPCS: 71260

== ENCOUNTER 2020-02-07 11:19 | Emergency (ER) | payer MEDICARE, OTHER, SELFPAY ==
[2020-01-31 11:31] VITALS: BMI 23.9
[2020-02-07 11:23] VITALS: BP 123/63; PULSE 83; RESP 18; TEMP 36.5; O2SAT 99; BMI 23.9
--- NOTE | 2020-02-07 11:51 | EKG12_ITS ---
Test Reason : Blood Pressure : / mmHG Vent. Rate : 089 BPM Atrial Rate : 089 BPM P-R Int : 160 ms QRS Dur : 086 ms QT Int : 376 ms P-R-T Axes : 041 013 028 degrees QTc Int : 457 ms Normal sinus rhythm Septal infarct , age undetermined Possible Inferior infarct , age undetermined Abnormal ECG Confirmed by TRINITY GARNICA, INGRIS ([id number]), associate entertainment editor TIMMY VALENZUELA ([id number]) on 02/12/2020 1:51:38 PM Referred By: JAYASHREE Confirmed By:LEE PETERSEN MD
--- NOTE | 2020-02-07 11:52 | CT_ITS ---
STUDY: CTA HEAD AND NECK WITH CONTRAST REASON FOR EXAM: Female, 74 years old. VERTIGO, MULTIPLE EPISODES X 24 HRS, HX MULTIPLE MYELOMA, MENANGIOMA W/ GAMMA KNIFE PROCEDURE RADIATION DOSAGE (If Supplied By Facility): CTDIvol = ( 25.43 ) mGy, DLP = ( 1407.33 ) mGycm TECHNIQUE: CT angiography was performed with a multi-detector CT scanner. Data acquisition was obtained from the skull base through the vertex following intravenous administration of [id number] 100ML. MIP images were reconstructed from the axial data set. Post-processing of the angiographic images was performed, with multiplanar reformation and 3D reconstruction. Individualized dose optimization techniques were used for this CT. COMPARISON: Comparison is made with prior CT scan of the brain dated September 24, 2019. FINDINGS: Normal bilateral petrous carotid arteries. Normal right cavernous carotid artery with a normal supraclinoid bifurcation. Normal left cavernous carotid artery with a normal supraclinoid bifurcation. Normal right A1 segments of the anterior cerebral artery. Normal left A1 segments of the anterior cerebral artery. Normal intact anterior communicating artery (ACOM). Normal bilateral A2 segments of the anterior cerebral arteries. Normal right M1 and M2 segments of the middle cerebral arteries, with a normal M1 bifurcation. Normal left M1 and M2 segments of the middle cerebral arteries, with a normal M1 bifurcation. Normal right posterior communicating artery (PCOM). Normal left posterior communicating artery (PCOM). Normal bilateral vertebral arteries. Normal basilar artery with a normal basilar bifurcation. The visualized bilateral superior cerebellar (SCA) arteries are normal. Normal bilateral P1, P2 and visualized P3 segments of the posterior cerebral arteries. There is no demonstrated aneurysm of the [place]. Stable hyperdense left posterior parafalcine meningioma. Stable small hypodensity in the right lobe of the thyroid. AORTIC ARCH: There is atherosclerotic calcific plaque formation of the aortic arch and great vessels arising from the aortic arch, without a hemodynamically significant stenosis. There is a normal origin of the brachiocephalic, left common carotid, and left subclavian arteries. RIGHT CAROTID ARTERIES: Normal right common carotid artery (CCA). Normal right common carotid bulb. Normal origin of the right internal carotid (ICA) artery without a hemodynamically significant stenosis. Normal visualized cervical portion of the right internal carotid artery. Normal origin of the right external carotid artery (ECA). LEFT CAROTID ARTERIES: Normal left common carotid artery (CCA). Normal left common carotid bulb. Normal origin of the left internal carotid (ICA) artery without a hemodynamically significant stenosis. Normal visualized cervical portion of the left internal carotid artery. Normal origin of the left external carotid artery (ECA). VERTEBRAL ARTERIES: Normal bilateral vertebral arteries. CT/CTA Head AND Neck W/ Contrast IMPRESSION: Normal CTA Head and neck with contrast. Electronically Signed: Kenyon Carmen, at 13:49 EDT , Service support ,
--- NOTE | 2020-02-07 11:56 | ED.VIS.STROK ---
History of Present Illness Chief Complaint: Dizziness Informant: Patient, Significant Other Onset: Yesterday Context: Sudden Onset - at rest, not provoked by movement or position changes Timing: Intermittent - x4 or 5 total, Lasts - around 4 minutes or so Quality and Location: - - vertigo Onset: sudden while at rest each episode Current Severity: Gone Maximum Severity: Severe Worsened by: nothing Relieved by: nothing, just by waiting for it to resolve Associated Symptoms: Nausea, Vomiting. Negative for: Headache, Chest Pain Narrative: Patient states she has had 4 or 5 episodes of severe vertigo that have occurred randomly while sitting or standing at rest, not provoked by any position changes, movement of her head, or movement otherwise. It is caused her to be nauseated and vomit. She had similar symptoms a couple weeks ago for which she was seen here as well. She was admitted to the hospital for about 9 weeks earlier this year because of back surgery that was complicated by an epidural hematoma causing cauda equina syndrome, for which she needed emergent surgery. She has a right foot drop as a result of all of that and difficulty walking now. She states she has had 7 prior strokes and as a result has weakness in her left arm and leg. She has never had a stroke with vertigo as the presenting symptom, prior to a couple weeks ago. She states she was not admitted a couple weeks ago. On further chart review, it seems this was actually about 6 weeks ago that the patient was seen here, she was admitted, and actually had an MRI that showed nothing acute except for old infarcts and stable meningiomas. - Past Medical History (1) Anemia Status: Chronic (2) Anxiety and depression Status: Chronic (3) Cerebrovascular disease Status: Chronic (4) Essential tremor Status: Chronic (5) HLD (hyperlipidemia) Status: Chronic (6) Hypertension Status: Chronic (7) MDS (myelodysplastic syndrome), low grade Status: Chronic (8) Meningioma Status: Chronic (9) Myeloma Status: Chronic (10) Neuropathic pain Status: Chronic (11) Vascular dementia Status: Chronic Past Medical History - Allergies and Home Meds Allergies/Adverse Reactions: Allergies sulfamethoxazole [From Bactrim] Allergy (Severe, Verified 02/07/20 11:27) Other SEIZUERE, LOSS OF MOVEMENT IN LEGS trimethoprim [From Bactrim] Allergy (Severe, Verified 02/07/20 11:27) Other SEIZURE LOSS OF MOVEMENT IN LEGS morphine Adverse Reaction (Severe, Verified 02/07/20 11:27) Nausea Primary Care Physician: Augusta Wilson DO [Primary Care Provider] - Surgical History: cholecystectomy, hysterectomy, tonsillectomy, - - Gamma knife meningioma. Surgery to evacuate a very large Lumbar hematoma causing cauda equina S. Lives: Spouse/ Significant Other Smoking Status: Never smoker - Family History Maternal Family History: Family History (Last Reviewed 01/31/20 @ 11:28 by Anika Choudhary) Mother Breast cancer Sister Breast cancer Aunt Breast cancer Daughter History of malignant melanoma Father Brain cancer Brother Lung cancer Family History: Reports: Cancer - Mother with history of breast cancer. Paternal Family History: Family History (Last Reviewed 01/31/20 @ 11:28 by Anika Choudhary) Mother Breast cancer Sister Breast cancer Aunt Breast cancer Daughter History of malignant melanoma Father Brain cancer Brother Lung cancer Family History: Reports: Cancer - Father with history of brain cancer. Review of Systems General: Denies: Chills, Fever, Sweats Eyes: Denies: Visual changes - bilaterally, Diplopia ENT: Denies: Bilateral ear pain, Rhinorrhea, Sore throat Cardiovascular: Denies: Chest pain, Palpitations Respiratory: Denies: Dyspnea, Cough, Dyspnea on exertion Gastrointestinal: Reports: Nausea, Vomiting. Denies: Abdominal pain, Diarrhea, Melena, Hematochezia Genitourinary: Denies: Dysuria, Hematuria, Frequency Musculoskeletal: Denies: Neck pain, Back pain, Swelling, Extremity Pain Skin: Denies: Rash, Wounds Neurological: Reports: Weakness - residual left hemiparesis, - - chronic tremor, - - intermittent vertigo. see HPI.. Denies: Headache, Numbness STROKE Vital Signs/Narrative: Vital Signs Temp Pulse Resp BP Pulse Ox 02/07/20 11:23 97.7 F L 83 18 123/63 H 99 Inital Vital Signs reviewed: Yes - NIHSS Initial 1a Level of Consciousness: 0 1b LOC Questions (Score 2 if aphasic/stupor): 1 - wrong month 1c LOC Commands (Only score 1st attempt): 0 2 Best Gaze (If aphasic, use reflexive mvmts.): 0 3 Visual: 0 4 Facial Palsy: 0 5 Motor Arm Right (UN = amputation/fusion): 0 5 Motor Arm Left: 0 6 Motor Leg Right: 0 6 Motor Leg Left: 0 7 Limb ataxia (Only + if out of proportion): 0 8 Sensory (Aphasia/stupor=0 or 1, coma=2): 0 9 Best Language: 0 10 Dysarthria (mute, coma=2, intubated=UN): 0 11 Extinction and Inattention (only scored if +): 0 Total Score: 1 General: Well nourished, Well developed, - - NAD, conversive in full sentences. Head: Normocephalic, Atraumatic Eyes: Perrl, EOMI ENT: Moist mucous membranes, No rhinorrhea, TM's clear Neck: Supple, Nontender, No lymphadenopathy Cardiovascular: Regular rate, Regular rhythm, No murmurs Respiratory: No distress, CTA bilaterally, Chest nontender Abdomen: Soft, Nontender, Nondistended, Normal bowel sounds Back: Nontender, Normal Inspection Extremities: Nontender, No edema. Negative for: Calf Tenderness Skin: Normal color, No rash, No Trauma Neurological: Alert, Oriented x3, Cranial nerves II-XII grossly intact, Normal Strength - proximally all 4 ext's; some mild distal weakness LUE and LLE., Normal Sensation, - - nml FTN and HTS bilat. Psychological: Normal affect, Normal Mood Diagnostic/Tx/Re-eval Clinical Impression(s) from Imaging Studies Head/Neck CTA 02/07/20 11:52 IMPRESSION: Normal CTA Head and neck with contrast. Electronically Signed: Kenyon Carmen, at 13:49 EDT , Service support , Laboratory Results 02/07/20 02/07/20 02/07/20 12:12 12:25 12:25 WBC 6.0 RBC 3.79 L Hgb 12.7 Hct 39.0 MCV 102.9 H MCH 33.5 H MCHC 32.6 RDW Std Deviation 53.0 H RDW Coeff of [place] 14.2 Plt Count 169 MPV 12.5 H Immature Gran % (Auto) 0.800 Neut % (Auto) 69.5 Lymph % (Auto) 11.3 L [place] % (Auto) 15.4 H Eos % (Auto) 2.5 Baso % (Auto) 0.5 Absolute Neuts (auto) 4.2 Absolute Lymphs (auto) 0.68 L Nucleated RBC % 0 PT 13.5 INR 1.1 APTT 44.2 H Sodium Potassium Chloride Carbon Dioxide Anion Gap BUN Creatinine Estim Creat Clear Calc Est GFR (MDRD) Af Amer Est GFR (MDRD) Non-Af BUN/Creatinine Ratio Glucose Calcium Troponin I POC Glucose 106 02/07/20 12:25 WBC RBC Hgb Hct MCV MCH MCHC RDW Std Deviation RDW Coeff of [place] Plt Count MPV Immature Gran % (Auto) Neut % (Auto) Lymph % (Auto) [place] % (Auto) Eos % (Auto) Baso % (Auto) Absolute Neuts (auto) Absolute Lymphs (auto) Nucleated RBC % PT INR APTT Sodium 141 Potassium 4.3 Chloride 105 Carbon Dioxide 30.0 Anion Gap 6 BUN 20 H Creatinine 1.26 H Estim Creat Clear Calc 31.91 Est GFR (MDRD) Af Amer 53 L Est GFR (MDRD) Non-Af 44 L BUN/Creatinine Ratio 15.9 Glucose 103 Calcium 9.6 Troponin I < 0.015 POC Glucose - Rhythm Strip Rhythm Strip: Sinus Rhythm Rate: 89 Ectopy: None - EKG Initial EKG Interpretation: Sinus Rhythm, No Acute Injury Pattern, - - inferior Q waves Prior: Unchanged - Medical Decision Making Stroke Team Activated: No - symptom-free Was Patient considered for Endovascular Intervention?: No - neg CTA IV Alteplase (t-PA) Administered: No - no acute sx currently No contraindications for IV Alteplase (t-PA) administration.: Yes - took Lovenox couple hrs [facility] Patient remained stable without symptoms in the emergency department. Her CTA is negative with open vessels. Reviewing her chart as above, she had an MRI 6 weeks ago that was negative. I think with her symptoms which are intermittent and atypical for central vertigo, I think it is safe to discharge her home. She uses a walker all of the time to help prevent against falls, she has medicine at home, she is not sure what it is that she is given a prescription for Antivert to use as needed, she and were explained fully and comfortable with this overall plan, advised to follow-up with her doctor at this time, she continues to have symptoms she may need referral to ENT. They are comfortable with this plan all questions answered at the bedside. ED Disposition - Plan for ED Patient: Disposition: Home or Assisted Living Diagnosis: Intermittent vertigo Instructions: ED Vertigo Unspecified Prescriptions: Meclizine HCl [Antivert] 25 mg PO Q8H PRN #16 tab PRN Reason: Dizziness Prescription Printed Referrals: Augusta Wilson DO [Primary Care Provider] - 3-5 Days
[2020-02-07 12:13] VITALS: O2SAT 99
[2020-02-07 12:35] LABS: Bedside Glucose 106 mg/dL (70-110)
[2020-02-07 12:37] LABS: Absolute Lymphocyte Count 0.68 X10^3/uL (0.83-4.51); Absolute Neutrophil Count 4.2 X10^3/uL (2.0-7.7); Basophil# 0.03 X10^3/uL; Basophil% 0.5 % (0-1); Eosinophil# 0.15 X10^3/uL; Eosinophils% 2.5 % (0-5); Hemoglobin 12.7 g/dL (12.0-15.0); Lymphocyte # 0.68 X10^3/ul (4.0); Lymphocyte % 11.3 % (19-41); Mean Corp Hgb Conc 32.6 g/dL (32-36); Mean Corpuscular Hgb 33.5 pg (27.0-32.0); Mean Corpuscular Volume 102.9 fL (81-99); Mean Platelet Vol. 12.5 fl (6.2-12.0); Monocyte# 0.93 X10^3/uL; Monocyte% 15.4 % (0-10); NRBC Flagged by Analyzer 0 % (0-5); Neutrophil # 4.18 X10^3/uL (2.7-7.7); Neutrophil % 69.5 % (47-70); Platelet Count 169 K/mm3 (150-450); RBC Distribution Width CV 14.2 % (11.6-14.6); Red Blood Count 3.79 M/mm3 (4.2-5.4)
[2020-02-07 12:43] LABS: International Normalized Ratio 1.1; Prothrombin Time (Protime)PT. 13.5 SECONDS (11.7-14.9)
[2020-02-07 12:46] LABS: Partial Thromboplast Time 44.2 Seconds (24.1-36.2)
[2020-02-07 12:54] LABS: Anion Gap 6 (5-15); BUN 20 mg/dL (7-18); BUN/Creat Ratio 15.9 RATIO (10-20); Calcium,Total 9.6 mg/dL (8.5-10.1); Chloride 105 mmol/L (98-107); Creatinine, Serum 1.26 mg/dL (0.55-1.02); EST Glomerular Filtration Rate 44 mL/min (>60); Est Glom Filt Rate - Afr Amer 53 mL/min (>60); Estimated Creatinine Clearance 31.91 ml/min; Glucose 103 mg/dL (74-106); Potassium 4.3 mmol/L (3.5-5.1); Sodium Level 141 mmol/L (136-145)
[2020-02-07 14:38] VITALS: BP 104/57; PULSE 79; RESP 18; O2SAT 99
== END 2020-02-07 14:39 | disposition home or self-care (01) ==
PROVIDERS: Emergency Provider Emergency Medicine; PCP Family Medicine
DX: R42 Dizziness and giddiness (principal); D32.9 Benign neoplasm of meninges, unspecified; I69.354 Hemiplegia and hemiparesis following cerebral infarction affecting left non-dominant side; D46.20 Refractory anemia with excess of blasts, unspecified; M21.371 Foot drop, right foot; I10 Essential (primary) hypertension; F32.9 Major depressive disorder, single episode, unspecified; F41.9 Anxiety disorder, unspecified; G25.0 Essential tremor; E78.5 Hyperlipidemia, unspecified; C90.00 Multiple myeloma not having achieved remission; Z86.2 Personal history of diseases of the blood and blood-forming organs and certain disorders involving the immune mechanism; Z79.899 Other long term (current) drug therapy
CPT/HCPCS: 70496; 70498; 80048; 82962; 84484; 85025; 85610; 85730; 93005; 96360; 96361; 99285; J7040; Q9967

== ENCOUNTER 2020-04-05 14:00 | Outpatient (RCR) | payer MEDICARE, OTHER, SELFPAY ==
[2019-12-20 13:59] VITALS: BMI 21.9
--- NOTE | 2020-01-11 14:00 | SOAP_ITS ---
REASON FOR REFERRAL: The Patient is a 53 year old female referred for a clinical assessment of the Patients cognitive communication abilities at [facility] / [facility] on 01/11/2020 due to persistent cognitive based deficits following a recent (02/03/2019) acute right middle cerebrovascular accident, with multiple prior / recent cerebrovascular accident(s), prior meningioma?s, and iatrogenic factors (currently undergoing systemic chemotherapy), with a recent decline in in functional status / independent functioning secondary to caudal equine syndrome secondary to an epidural hematoma. The Patient is well known to this clinician from prior intervention cycles, and is pleasant and conversant throughout the session. She reports that her issues with executive functioning continue, with difficulties with inertia and changing sets reported, though feels as though her metacognitive functioning has been somewhat maintained. She feels as though her left visual neglect has improved, and does not feel as though this is an strong interfering factor in her daily functioning. She continues to experience issues with orthographic functioning that are mechanically based, with resulting poor legibility. She now reports she has occasional verbal fluency issues, though these are sporadic and often occurring in the evening. Overall she feels as though she is back to where she was previously in regards to cognitive functioning prior to her admissions to the Transitional Care Unit this winter. She reports feeling distraught about the recent change in her functional status and increased dependence on family, particularly her . She now is dependent on a front wheeled walker to ambulate, which is an improvement from my most recent interactions with her on the Transitional Care Unit this winter. 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 Despite her multiple (albeit reasonable) frustrations and setbacks, she remains dissatisfied with her current level of functioning in a positive way and motivated to improve and participate in intervention sessions. MEDICAL HISTORY: Prior cerebrovascular accident(s) involving the left posterior parietal lobe (2018), multiple meningioma(s) involving the left parietal and left frontal regions status post gamma knife therapy (1999), left hemiparesis, residual cognitive dysfunction, left visuospatial neglect, multiple myeloma currently receiving systemic chemotherapy (vRD 28 day cycle; Velcade and Dexamethasone 3/4 week cycle; Revlimid 2 week on/off), caudal equina syndrome secondary to a epidural hematoma, low grade myelodysplastic syndrome, left upper lung nodule (2018), right lobe liver lesion status post biopsy (2018), macrocytosis, anemia, chronic lower back pain, neuropathic pain, essential tremor, chronic indwelling Bentley catheter, anxiety, depression ADDITIONAL OBJECTIVE ASSESSMENT RESULTS: 02/03/2019 CT revealed a stable examination; 1.9 cm x 1.2 cm slightly hypodense well-defined nodule along the posterior aspect of the left parietal lobe adjacent to the falx most likely represents a known meningioma; no evidence of intracranial hemorrhage. 02/03/2019 MRI revealed an acute right posterior frontal infarct in the right pericallosal arterial distribution; probable meningioma(s) involving the left parietal and left frontal regions. 02/04/2019 MRI revealed 2 left-sided meningioma(s) involving the left posterior falx (19 x 15 x 21 mm) and left frontal convexity (9 x 7 x 6 mm). 02/04/2019 CT revealed no acute findings; acute infarct previously reported by MRI is not demonstrable on CT scan; stable meningioma(s). 03/15/2019 CT revealed stable chronic ischemic and atrophic changes; old left posterior parietal infarct with encephalomalacia; stable meningioma(s) in the left parietal region (1.9cm) and left frontal region (6mm) 09/24/2019 CT revealed no evidence of acute intracranial bleed or ischemia; stable meningioma as above. 12/13/[address] revealed stable findings in the upper abdomen; improvement in the previously seen irregularities in both lungs. 12/13/2019 MRI revealed periventricular white matter ischemic changes and old focal infarcts; no evidence for acute infarct; lesions in the left frontal lobe and right frontal parietal region are new findings since previous study; small left frontal and parietal meningiomas unchanged in size since previous exam. RESULTS OF THE EVALUATION: The Patient continues to present with moderate cognitive communication deficits involving executive functioning (predominantly inertia) and attention, in conjunction with residual mild left visuospatial neglect / visuospatial construction deficits, secondary to an acute right middle cerebrovascular accident further complicated by multiple prior / recent cerebrovascular accident(s), prior meningioma?s, and iatrogenic factors (currently undergoing systemic chemotherapy) exacerbated by recent further impairments in functional status due to caudal equina syndrome secondary to a epidural hematoma, FUNCTIONAL STATUS ASSESSMENT RESULTS: GOYAL INDEX OF INDEPENDENCE IN ACTIVITIES OF DAILY LIVIN/6 BATHIN DRESSIN TOILETIN TRANSFERRIN CONTINENCE: 1 FEEDIN TOMASZ-ARNOLDO INSTRUMENTAL ACTIVITIES OF DAILY LIVING SCALE (IADL): 3/8 ABILITY TO USE THE TELEPHONE: 1 SHOPPIN FOOD PREPARATION: 0 HOUSEKEEPIN LAUNDRY: 0 MODE OF TRANSPORTATION: 1 RESPONSIBILITY FOR OWN MEDICATION: 0 ABILITY TO HANDLE FINANCES: 1 SUPERVISION RATING SCALE (SRS): SRS RATING SCORE: 6 SRS RATING LEVEL: level III: title department manager supervision SRS RATING DESCRIPTION: the patient is supervised overnight and during most waking hours; supervising persons are all sometimes absent for periods longer than one hour, but less than the time needed to hold a fulltime job away from home; the patient is supervised overnight and during almost all waking hours; supervising persons are all sometimes absent for periods shorter than one hour. FUNCTIONAL AMBULATION CATEGORY (FAC): FAC SCORE: 3 (ambulator- supervision) FAC DESCRIPTION: subject can physically ambulate on level surfaces without manual contact of another person but for safety requires standby guarding on no more than one person because of poor judgment, questionable cardiac status, or the need for verbal cuing to complete the task. SUPPLEMENTARY COGNITIVE COMMUNICATION ASSESSMENT RESULTS (SCALES/PROM/RISK): EXECUTIVE SKILLS QUESTIONNAIRE (ESQ): SECTION A ? RESPONSE INHIBITION: SECTION B ? WORKING MEMORY: 06/19 SECTION C ? EMOTIONAL CONTROL: 04/19 SECTION D ? FLEXIBILITY: 06/19 SECTION E ? SUSTAINED ATTENTION: 06/19 SECTION F ? TASK INITIATION: SECTION G ? PLANNING AND PRIORITIZIN/21 SECTION H ? ORGANIZATION: SECTION I ? TIME MANAGEMENT: SECTION J? GOAL DIRECTED PERSISTENCE: SECTION K ? METACOGNITION: COGNITIVE COMMUNICATION ASSESSMENT RESULTS (QUANTITATIVE): TRIAL MAKING TEST (TMT): PART A: 146 seconds (> 78 seconds abnormal) PART A ERRORS: 4 PART B: 450 seconds (> 273 seconds abnormal) PART B ERRORS: 12 COMPLEX CLOX: CLOX 1: 8/15 (10 or less indicates impairment) CLOX 2: 10/ (12 or less indicates impairment) BELLS TEST: CORRECT: 32/35 TOTAL TIME: 4:05 OMISSIONS (RIGHT): 2 (> 6 abnormal) OMISSIONS (LEFT): 1 (> 6 abnormal) OMISSIONS (TOTAL): 3 (> 3 suggests an attentional deficit) DISTRACTORS: 0/264 SCANNING STRATEGY: left to right; independently reviewed APRAXIA OF SPEECH RATING SCALE (ASRS-v1): ASRS-v1 SCORE: 0/4 ASRS-v1 SCORE DESCRIPTION: apraxia not present APHASIA SEVERITY RATING SCALE (ASRS): ASRS SCORE: 5/5 ASRS SCORE DESCRIPTION: minimal discernible speech handicap; the patient may have subjective difficulties that are not obvious to the listener COGNITIVE COMMUNICATION ASSESSMENT RESULTS (QUALITATIVE): EXECUTIVE FUNCTIONING: she continues to demonstrate awareness of deficits, often identifying issues in a timely manner, though cannot consistently identify and / or execute solutions, frequently exhibiting cognitive inertia; she demonstrates difficulty with information organization and task sequencing, and at times tends to ?talk around? subjects (circumstantial thought processing); improving ability to conceptualize changes and anticipate difficulties; her deficits have continued to accompanied periods of emotions / frustrations, though these are somewhat understandable, though when considering the location of one of her meningioma?s (left frontal region) she would be at a higher risk of depressive ?pseudo-executive? syndromes, and does endorse negative self-statements that promote feelings of inadequacy, reporting disturbances of sleep and energy; she does not demonstrate the same level of cognitive flexibility in comparison to my previous assessment sessions with her; she does not endorse apathy, impulsivity, disinhibition, or impersistence; she does not appear to become stimulus bound. MEMORY: she continues to demonstrate disrupted working memory complicating encoding and consolidation (though this would be a secondary effect to her executive functioning deficits) without a clear primacy or recency effect; preserved prospective memory; preserved explicit and implicit memory. ATTENTION: initially preserved sustained attention, though her reduced endurance does complicate this; rather impaired attention as the complexity of demands increase (divided, selective, and alternating attention). VISUOSPATIAL ABILITIES: she appears to maintain improvements in visuospatial abilities during targeted tasks, though later demonstrates in field left omissions (omitting the initial number in double digit numbers, leading to errors during the trial making subtests) suggesting there is a continued marked negative influence on her attention capabilities with a gradual mild reoccurrence of left visual field neglect. LANGUAGE FUNCTIONING: no aphasia / paraphasias; no apraxia; no dysarthria or vocal abnormalities; no agraphia; no alexia; she does continue to demonstrate residual acalculia /dyscalculia with deterioration in attention / mental endurance. COMPLICATING FACTORS: complicating factors would include the increase in fatigue she has experienced compiled by reported depression / anxiety associated with her persistent physical functioning and cognitive communication impairments and concomitant disruption in her personal relationships and responsibilities (primarily her ability to care for her spouse and ability to drive independently). RECOMMENDATIONS FOR INTERVENTION: The Patient requires intensive skilled speech-language intervention targeting implementation of internal and external compensatory cognitive processing compensatory strategies, with initial considerations for Time Pressure Management (TPM) training, Cbmy-Fbfz-Eh-Review (GPDR), Self-talk procedures, and organizational and elaboration techniques (namely PQRST); implementation of internal and external visuospatial compensatory strategies, to include systemic and research dietitian scanning therapy with use of principles for visual scanning (Locus of the stimulus, anchoring, pacing, density, information load, performance prediction and feedback); and continued formal and informal assessment of the cognitive communication profile throughout the intervention cycle, with adjustments to the treatment plan as clinically indicated. FUNCTIONAL OUTCOMES: OUTCOME 1: the Patient will utilize compensatory executive functioning / processing strategies identified and implemented throughout the intervention cycle (considerations for PDRE, TPMT) to facilitate improved cognitive processing, attention to task, and achievement of the highest level of safe, independent functioning with 100% accuracy over 2 consecutive sessions. OUTCOME 2: the Patient will independently utilize external and internal compensatory strategies to improve attention to the left side during both structured and unstructured therapeutic tasks over 2 consecutive sessions to facilitate optimal level of safe functioning upon return to home environment. OUTCOME 3: the Patient will independently complete complex money management tasks with use of previously established compensatory strategies to facilitate achievement of the highest level of safe, independent functioning with > 90% accuracy over 2 consecutive sessions. OUTCOME 4: goal adjustment as needed Obinna Orr M.A., CCC-INDOOR LANDSCAPE ARCHITECT, CBIS MBSImP Certified, LSVT Certified [facility] Speech-Language Pathology Department Email: [email or web address]
--- NOTE | 2020-01-16 13:54 | HP.OTEVAL_ITS ---
Patient's Visit Information RADHA SPENCER is a 74 year old F, referred to Occupational Therapy by Dr. Augusta Wilson DO, with a diagnosis of CVA. Date of Evaluation: 01/11/20 Occupational Therapist: Maria Del Rosario Coughlin, UMER/Dalia, CHT - Subjective This 74 year old female was seen for OT eval with dx of paraplegis, CVA status post lumbar spine sx for compression of spinal cord and cauda equina syndrom. Pt has concerns with UB strength and endurance to perform ADLs and IADLS. Pt motivated as she is frustrated she requires assistance from family to perform IADL tasks. pt's goal is to become More IND. PMH:Prior cerebrovascular accident(s) involving the left posterior parietal lobe (2018), multiple meningioma(s) involving the left parietal and left frontal regions status post gamma knife therapy (1999), left hemiparesis, residual cognitive dysfunction, left visuospatial neglect, multiple myeloma currently receiving systemic chem otherapy (vRD 28 day cycle; Velcade and Dexamethasone 3/4 week cycle; Revlimid 2 week on/off), caudal equina syndrome secondary to a epidural hematoma, low grade myelodysplastic syndrome, left upper lung nodule (2017), right lobe liver lesion status post biopsy (2018), macrocytosis, anemia, chronic lower back pain, neuropathic pain, essential tremor, chronic indwelling Bentley catheter, anxiety, depression - ADLs Comments: /families assist Household: Vacuum, Sweep/mop, Laundry Comments: pt ambulates with WW use of AFOs on BLE - ROM ROM Comments: pt demo all ROM WNL - Strength Shoulder: right 3+/5 left 4-/5 Elbow: right 4/5 left 4-/5 Radiological Metallurgist: right 60# left 50# Lateral Pinch: right 8# left 8# Tripod Pinch: right 7# left 8# Tip-to-Tip Pinch: right 7# left 6# - Sensation Sensation Comments: in arms denies. Knees down feeling of pins and needles - Movement Tremors: bilateral - Stroke Specific Quality of Life Total SS-QOL Score: 139 - Goals Goal:: Pt will demo a increase in BUE MMT 4+/5 to increase pts ind. with ADLS and IADLS by d/c. Pt will demo a increase in bilateral instrument fitter strength by 10# or greater to increase her IND with seated meal prep tasks by d/c Goal:: Pt will demo understanding of performing IADLS and ADLS with AD. eq. as needed by d/c Goal:: Pt will demo understanding of Ad. Eq. to increase her ind. with IADLS and ADLS. - Rehabilitation General Assessment: Pt demo with a decrease in functional strength limiting her IND with seated ADLS. Pt would benefit from further skilled OT services 2x week for 6 to increase pts ind. with ADLS and IADLS. Today therapist ed. pt on seated UB PRE and gave handout to pt. pt demo understanding and agree to POC. Rehabilitation Potential: Good - Anticipated Interventions Strengthening, Neuro Reeducation, ADL Training, Education re assistive Equipment, Home Program - Visit Plan Frequency: 2x /Week Duration: 6 Weeks TEXT: Thank you for the opportunity to evaluate your patient. For Medicare and Medicare HMO plans, please review the plan of care and approve it. It will need to be FAXED BACK to us at [phone] for Medicare purposes. Please let me know if there are questions or concerns regarding this plan of care. Physician Signature: Date:
--- NOTE | 2020-02-13 12:37 | HP.PTREVAL_ITS ---
Dr. Augusta Wilson, DO, It has been my pleasure to treat RADHA SPENCER over the last 8 visits for paraplegis, CVA status post lumbar spine sx for compression of spinal cord. Please see the progress note below for an update on the physical therapy plan of care! Subjective: Pt. reports overall doing well, but reports she has another bruise/bump on her sacral region. Pt. reports no pressue in this region and reports no mech of injury. Pt. reports being able to cut her lawn in the riding mower over the weekend. Objective/Function: Pt. has good ROM of BLEs, except from R calf tightness into DF. Pt. has improving strenghtn 4/5 throughout, except limied with R DF 3-/5. Pt. is walking with rollator and AFO on R side at this point in time. Tinetti . Pt. completed sit to stand rep test with UE assistance x5 reps in 19sec. Pt. is improving, but slowly. Pt. still has tingling in BLE, which effects her balance and stability. Pt. has also been complaining of soreness at her sacral region. Pt. has a bruise and a bump in the L side, which has been there ~3-4 weeks, but is now noticing a similar thing on the R side. No brusiing noted on the R side though. Plan Plan: Cont. with POC, focus on core stability, BLE strengthening, gait progress and balance. Stress importance of continued HEP and consistency. Goals Goal 1:: LTG: Pt. to be I with HEP. Goal Time Frame: 4-6 Weeks Goal Progress: Progressing Goal 2:: LTG: Pt. to have increasd BLE strength increased by 1/2 grade of all effected musculature. Goal Time Frame: 4-6 Weeks Goal Progress: Progressing Goal 3:: STG: Pt. to ambulate MAX with improved gait pattern for community level distances with FWW. Goal Time Frame: 4-6 Weeks Goal Progress: Progressing Goal 4:: LTG: Pt. have complete 5 rep sit to stand test without UE use in 10 sec indicating increased BLE fucntional strength Goal Time Frame: 4-6 Weeks Goal Progress: Progressing Goal 5:: LTG: Pt. pt have increased tinetti to 20/28 indicating increased overall stability. Goal Time Frame: 4-6 Weeks Goal 6:: STG: Pt. to have incrased Fredy DF to 3/5 allowing for better gait progression. Goal Time Frame: 2-4 Weeks Goal Progress: Progressing Anticipated Interventions Patient/Client Instruction: Educate patient on: Condition, Plan of Care, Risk Factors, Benefits of Fitness Program For the Purpose of:: To improve decision making, To facilitate caregiver knowledge, To improve self management, To prevent re-injury, To improve ability to perform tasks related to life management, To improve tolerance to ADL's Therapeutic Exercise to Include: Strength training, Power training, Endurance training, Balance training, Coordination, Agility training, Body mechanics, Postural training, Flexibilty training, Gait and locomotor training, Passive ROM , Active ROM For the Purpose of:: To decrease pain, To decrease swelling/inflammation, To increase ROM, To increase oxygenation perfusion, To improve muscle performance and motor function, To improve ability to perform ADL's, To increase tolerance to activity/condition/position, To improve performance and independence with ADL's, To increase flexibility/ROM, To improve endurance, To improve balance, To improve safety with gait Please do not hesitate to contact me at [phone] by phone or if you have questions or concerns regarding this new plan of care! Sincerely, Rusty Carl DPT
--- NOTE | 2020-02-13 12:37 | HP.PTEVAL ---
Patient's Visit Information RADHA SPENCER is a 74 year old F referred to Physical Therapy by Dr. Augusta Wilson DO with a diagnosis of paraplegis, CVA status post lumbar spine sx for compression of spinal cord. Date of Evaluation: 01/11/20 Physical Therapist: Rusty Carl DPT - Visit Plan Frequency: 2x /Week Duration: 6 Weeks Plan: Cont. with POC, focus on core stability, BLE strengthening, gait progress and balance. Stress importance of continued HEP and consistency. - Subjective This 74 year old female was seen for PT eval with dx of paraplegis, CVA status post lumbar spine sx for compression of spinal cord and cauda equina syndrome. Pt has concerns with of her overall strength, difficulty with walking, BLE strength and decrease in general functional mobility. Pt. is very concerned about her drop foot of BLEs. PMH:Prior cerebrovascular accident(s) involving the left posterior parietal lobe (2018), multiple meningioma(s) involving the left parietal and left frontal regions status post gamma knife therapy (1999), left hemiparesis, residual cognitive dysfunction, left visuospatial neglect, multiple myeloma currently receiving systemic chemotherapy (vRD 28 day cycle; Velcade and Dexamethasone 3/4 week cycle; Revlimid 2 week on/off), caudal equina syndrome secondary to a epidural hematoma, low grade myelodysplastic syndrome, left upper lung nodule (2017), right lobe liver lesion status post biopsy (2017), macrocytosis, anemia, chronic lower back pain, neuropathic pain, essential tremor, chronic indwelling Bentley catheter, anxiety, depression - Objective POSTURE: Pt. starks general flexed posture, heavy use of AD with UEs. No pain with increased uprigh posture. PALPATION: Pt. has well healing incision without signs of infection along her lumbar spine. Pt. has decreased sensation to light touch of from knee down, improves with proximity to spine. NEURO: pt. has decrased patellar and achilles DTR bilaterally 1+. Pt. has some decreased sensation to light touch in distal LEs. Pt. is able to complete slight DF, but limited in BLEs. ROM: Pt. has good ROM of BLEs, except ight through Fredy hip flexors and HS, and tight heel cord bilaterally. MMT: RLE- ankle- PF 4/5, DF 2/5; INV 3/5, EVR 3-/5; knee- 4-/5, flexion 4-/5; hip- flexion 3+/5, abb 4/5, ext 4/5. LLE- ankle- PF 4/5, DF 2/5; INV 3/5, EVR 3-/5; knee- 4-/5, flexion 4-/5; hip- flexion 3+/5, abb 4/5, ext 4/5. Core strength- poor. GAIT: Pt. ambulates with FWW with heavy use of UEs on AD. Pt. is MAX with FWW, but is very methodical with her pattern and have flexed posture throughout. Pt. 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 - Balance Scores Tinetti Balance Score: 7 Tinetti Gait Score: 10 Tinetti Balance & Gait Score: 17 - Goals Goal 1:: LTG: Pt. to be I with HEP. Goal Time Frame: 4-6 Weeks Goal 2:: LTG: Pt. to have increasd BLE strength increased by 1/2 grade of all effected musculature. Goal Time Frame: 4-6 Weeks Goal 3:: STG: Pt. to ambulate MAX with improved gait pattern for community level distances with FWW. Goal Time Frame: 4-6 Weeks Goal 4:: LTG: Pt. have complete 5 rep sit to stand test without UE use in 10 sec indicating increased BLE fucntional strength Goal Time Frame: 4-6 Weeks Goal 5:: LTG: Pt. pt have increased tinetti to 20/28 indicating increased overall stability. Goal Time Frame: 4-6 Weeks Goal 6:: STG: Pt. to have incrased Fredy DF to 3/5 allowing for better gait progression. Goal Time Frame: 2-4 Weeks - Rehabilitation Potential Physical Therapy Diagnosis: Pt. has signs and symptoms consistent with paraplegis, CVA status post lumbar spine sx for compression of spinal cord and cauda equina syndrome. Pt. would benefit from PT to work on BLE strength, core stability, improving her gait, impriving her balance and increasing her overall independence with functional mobility. Rehabilitation Potential: Good - Anticipated Interventions Patient/Client Instruction: Educate patient on: Condition, Plan of Care, Risk Factors, Benefits of Fitness Program For the Purpose of:: To improve decision making, To facilitate caregiver knowledge, To improve self management, To prevent re-injury, To improve ability to perform tasks related to life management, To improve tolerance to ADL's Therapeutic Exercise to Include: Strength training, Power training, Endurance training, Balance training, Coordination, Agility training, Body mechanics, Postural training, Flexibilty training, Gait and locomotor training, Passive ROM, Active ROM For the Purpose of:: To decrease pain, To decrease swelling/inflammation, To increase ROM, To increase oxygenation perfusion, To improve muscle performance and motor function, To improve ability to perform ADL's, To increase tolerance to activity/condition/position, To improve performance and independence with ADL's, To increase flexibility/ROM, To improve endurance, To improve balance, To improve safety with gait Thank you for the opportunity to evaluate your patient. For Medicare and Medicare HMO plans, please review the plan of care and approve it. It will need to be FAXED BACK to us at [phone] for Medicare purposes. For Medicare only, by signing this I certify the plan of care. Please let me know if there are questions or concerns regarding this plan of care. Physician Signature: Date:
--- NOTE | 2020-02-29 13:54 | HP.PTREVAL_ITS ---
Dr. 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 Please see the progress note below for an update on the physical therapy plan of care! Subjective: Pt. reports no pain walking in today. Pt. reports decreased LE weakness and fatigue today. Pt. is HEP compliant without issues. Pt. continues to complain of numbness in her feet, but not at as bad. Objective/Function: Pt. is progressing with strenghtening, biggest issue 3-/5 R DF. 4+/5 throughout rest of BLEs. Pt. has is walking with FWW and with rollator with ROLAND/MAX. Pt. was able to ambulate 570' this date with reports of fatigue, but is overall impriving. Pt. had increased tolerance to walking and no pain. Pt. still has marked imbalance and requires use of AD for safety, but has started to ambulate without AD (CGA required). Pt. no longer requires AFO on LLE, but does require for RLE. Plan Plan: Cont. to progress BLE strength, general mobility with and without AD. Cont. to pay special attention to L DF strength, core strength and balance. Goals Goal 1:: LTG: Pt. to be I with HEP. Goal Time Frame: 4-6 Weeks Goal Progress: Progressing Goal 2:: LTG: Pt. to have increasd BLE strength increased by 1/2 grade of all effected musculature. (4+/5 throughout BLEs, except 3-/5 R ankle DF) Goal Time Frame: 4-6 Weeks Goal Progress: Progressing Goal 3:: STG: Pt. to ambulate MAX with improved gait pattern for community [place] distances with FWW. Goal Time Frame: 4-6 Weeks Goal Progress: Goal Met Goal 4:: LTG: Pt. have complete 5 rep sit to stand test without UE use in 10 sec indicating increased BLE fucntional strength (currently 13.9sec) Goal Time Frame: 4-6 Weeks Goal Progress: Progressing Goal 5:: LTG: Pt. pt have increased tinetti to 20/28 indicating increased overall stability. (), TUG- with walker 19sec, without AD and CGA 19sec.) Goal Time Frame: 4-6 Weeks Goal Progress: Progressing Goal 6:: STG: Pt. to have incrased Fredy DF to 3/5 allowing for better gait progression. (currrentl 3-/5) Goal Time Frame: 2-4 Weeks Goal Progress: Progressing Anticipated Interventions Patient/Client Instruction: Educate patient on: Condition, Plan of Care, Risk Factors, Benefits of Fitness Program For the Purpose of:: To improve decision making, To facilitate caregiver knowl edge, To improve self management, To prevent re-injury, To improve ability to perform tasks related to life management, To improve tolerance to ADL's Therapeutic Exercise to Include: Strength training, Power training, Endurance training, Balance training, Coordination, Agility training, Body mechanics, Postural training, Flexibilty training, Gait and locomotor training, Passive ROM, Active ROM For the Purpose of:: To decrease pain, To decrease swelling/inflammation, To increase ROM, To increase oxygenation perfusion, To improve muscle performance and motor function, To improve ability to perform ADL's, To increase tolerance to activity/condition/position, To improve performance and independence with ADL's, To increase flexibility/ROM, To improve endurance, To improve balance, To improve safety with gait Please do not hesitate to contact me at [phone] by phone or if you have questions or concerns regarding this new plan of care! Sincerely, Rusty Carl DPT
--- NOTE | 2020-02-29 16:25 | HP.OTDCSUM ---
It has been my pleasure to treat RADHA SPENCER under orders from Dr. Augusta Wilson DO, for the diagnosis of CVA for a total of 7 visit(s). Please see the following information for a summary of their discharge status. 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 MMT of UE 4+/5. pt has make good gains with her strength and per pt report pt IND with ADLs and IADLs. Pt has met goals and is D/C with HEP Patient Goals: Regain Strength, Be More Independent in ADLS Goal:: Pt will demo a increase in BUE MMT 4+/5 to increase pts ind. with ADLS and IADLS by d/c. 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 eq. as needed by d/c Goal:: Pt will demo understanding of Ad. Eq. to increase her ind. with IADLS and ADLS. Plan: cont POC, strengthening Discharge Comments: pt has made good gains in her strength of UB and reports MAX with ADLs and IADLS pt has met OT goals and is D/C at this time with HEP. If there are questions or concerns regarding this patient's occupational therapy, please fell free to call me at [phone]. Thank you for the referral of this patient. Sincerely, Maria Del Rosario Coughlin, OTR/L, CHT
== END 2020-04-05 19:00 | disposition home or self-care (01) ==
LOC: PT 14:00
PROVIDERS: PCP Family Medicine; Referring Provider Family Medicine; Visit Provider Family Medicine
DX: G83.4 Cauda equina syndrome (principal); G82.20 Paraplegia, unspecified; Z98.890 Other specified postprocedural states; I69.314 Frontal lobe and executive function deficit following cerebral infarction; I69.313 Psychomotor deficit following cerebral infarction; I69.312 Visuospatial deficit and spatial neglect following cerebral infarction; I69.318 Other symptoms and signs involving cognitive functions following cerebral infarction
CPT/HCPCS: 92507; 92523; 97110; 97112; 97116; 97161; 97164; 97166; 97530

== ENCOUNTER 2020-04-09 10:55 | Emergency (ER) | payer MEDICARE, OTHER, SELFPAY ==
[2020-04-03 11:38] VITALS: BMI 24.1
[2020-04-09 10:56] VITALS: BP 140/61; PULSE 101; RESP 14; TEMP 37.1; O2SAT 95; BMI 21.5
[2020-04-09 11:08] VITALS: BP 133/65; PULSE 103; RESP 13; O2SAT 93
--- NOTE | 2020-04-09 11:10 | RAD_ITS ---
STUDY: X-RAY CHEST REASON FOR EXAM: Female, 75 years old. AMS TECHNIQUE: Single AP portable view of the chest. COMPARISON: Comparison is made with prior study dated 09/24/2019. FINDINGS: EKG electrodes are seen. There is elevation of the right hemidiaphragm. Minimal increased markings at the left lung base suggestive of atelectasis and/or scarring.. Normal size heart. Normal mediastinum and shashi. Normal visualized pulmonary arteries. There is atherosclerotic tortuosity of the aortic arch and descending thoracic aorta. Normal visualized thoracic spine. Normal visualized ribs, clavicles, and shoulders. There is no demonstrated abnormality of the visualized soft tissue structures of the upper abdomen. RAD/Chest 1 View (Portable) IMPRESSION: Minimal increased markings at the left lung base suggestive of atelectasis and/or scarring. Electronically Signed: Kenyon Carmen, at 12:33 EDT , Service support ,
--- NOTE | 2020-04-09 11:10 | CT_ITS ---
STUDY: CT BRAIN WITHOUT CONTRAST REASON FOR EXAM: Female, 75 years old. ALTERED MENTAL STATUS/UNRESPONSIVE RADIATION DOSAGE (If Supplied By Facility): CTDIvol = ( 44.99 ) mGy, DLP = ( 779.24 ) mGycm TECHNIQUE: Transaxial CT imaging of the brain was performed without administration of intravenous contrast material. Individualized dose optimization techniques were used for this CT. COMPARISON: Comparison is made with prior study dated 03/24/2020. FINDINGS: Normal soft tissue structures. Normal calvarium. There now is evidence of a moderate sized acute on subacute subdural hematoma overlying the left frontal parietal and occipital lobes. There is evidence of a surrounding mass effect with shift of the midline towards the right side. The shift is 1.4 cm. Stable partially calcified mass measuring 2 cm x 1.1 cm in the posterior cerebral falx. There are areas of decreased attenuation within the white matter tracts of the supratentorial brain, consistent with microvascular disease changes. Normal basal ganglia and thalami. Normal brainstem. Normal cerebellum. Normal visualized paranasal sinuses. CT/Brain/Head without Contrast IMPRESSION: Moderate sized left subacute/acute subdural hematoma with mass effect and shift of midline from left to right of 1.4 cm. The remainder of the examination is unchanged. N.B. : The above information has been verbally conveyed by Kenyon Carmen to Sherwin Guerra MD, on 04/09/2020 12:37:52 (ET). Electronically Signed: Kenyon Carmen, at 12:39 EDT , Service support ,
--- NOTE | 2020-04-09 11:10 | EKG12_ITS ---
Test Reason : ALT LOC Blood Pressure : / mmHG Vent. Rate : 099 BPM Atrial Rate : 099 BPM P-R Int : 158 ms QRS Dur : 080 ms QT Int : 360 ms P-R-T Axes : 050 024 052 degrees QTc Int : 462 ms Normal sinus rhythm Normal ECG Confirmed by AUBREE CERDA ([id number]), dictionary editor TIMMY VALENZUELA ([id number]) on 04/12/2020 10:30:28 AM Referred By: JAGRUTI Confirmed By:AUBREE CERDA
--- NOTE | 2020-04-09 11:11 | ED.DCSUM_ITS ---
History of Present Illness Chief Complaint: Alt LOC Narrative: This patient is a 75-year-old female who presents with altered mental status. History is limited due to her altered mental status and no family is at bedside. Per review of records patient has a history of prior strokes, prior back surgery resulting in an epidural hematoma and cauda equina syndrome. She appears to have a history of vertigo. EMS has run on her before and states that her current presentation is near her baseline. The had called EMS stating that she was just less responsive and overall weaker than usual. Past Medical History - Allergies and Home Meds Allergies/Adverse Reactions: Allergies sulfamethoxazole [From Bactrim] Allergy (Severe, Verified 04/09/20 11:09) Other SEIZUERE, LOSS OF MOVEMENT IN LEGS trimethoprim [From Bactrim] Allergy (Severe, Verified 04/09/20 11:09) Other SEIZURE LOSS OF MOVEMENT IN LEGS morphine Adverse Reaction (Severe, Verified 04/09/20 11:09) Nausea Primary Care Physician: Augusta Wilson DO [Primary Care Provider] - Past Medical History: - - Vascular dementia, stroke, vertigo, hypertension Surgical History: cholecystectomy, hysterectomy, tonsillectomy, - - Gamma knife meningioma. Surgery to evacuate a very large Lumbar hematoma causing cauda equina S. Smoking Status: Never smoker - Family History Maternal Family History: Family History (Last Reviewed 04/03/20 @ 11:33 by Anika Choudhary) Mother Breast cancer Sister Breast cancer Aunt Breast cancer Daughter History of malignant melanoma Father Brain cancer Brother Lung cancer Family History: Reports: Cancer - Mother with history of breast cancer. Paternal Family History: Family History (Last Reviewed 04/03/20 @ 11:33 by Anika Choudhary) Mother Breast cancer Sister Breast cancer Aunt Breast cancer Daughter History of malignant melanoma Father Brain cancer Brother Lung cancer Family History: Reports: Cancer - Father with history of brain cancer. Review of Systems ROS: Unable to Obtain Physical Exam Vital Signs/Narrative: Vital Signs Temp Pulse Resp BP Pulse Ox 04/09/20 11:08 103 H 13 133/65 H 93 04/09/20 10:56 98.8 F 101 H 14 140/61 H 95 Inital Vital Signs reviewed: Yes General: Well nourished Head: Normocephalic Eyes: EOMI ENT: Moist mucous membranes Neck: Supple Cardiovascular: Regular rhythm, Tachycardia Respiratory: No distress, CTA bilaterally Abdomen: Soft, Nontender, Nondistended Skin: Normal color Neurological: Alert, - - Patient is alert. She will follow commands. She does not appear to have focal or lateralizing neurological deficit. She answers questions with I do not know and does not appear to be oriented Psychological: Normal affect Diagnostic/Tx/Re-eval Impressions Brain CT 04/09/20 11:10 IMPRESSION: Moderate sized left subacute/acute subdural hematoma with mass effect and shift of midline from left to right of 1.4 cm. The remainder of the examination is unchanged. N.B. : The above information has been verbally conveyed by Kenyon Carmen to Sherwin Guerra MD, on 04/09/2020 12:37:52 (ET). Electronically Signed: Kenyon Carmen, at 12:39 EDT , Service support , ADDENDUM: 04/09/20 1246 IMPRESSION: Moderate sized left subacute/acute subdural hematoma with mass effect and shift of midline from left to right of 1.4 cm. The remainder of the examination is unchanged. N.B. : The above information has been verbally conveyed by Kenyon Carmen to Sherwin Guerra MD, on 04/09/2020 12:37:52 (ET). Electronically Signed: Kenyon Carmen, at 12:39 EDT , Service support , Chest X-Ray 04/09/20 11:10 IMPRESSION: Minimal increased markings at the left lung base suggestive of atelectasis and/or scarring. Electronically Signed: Kenyon Carmen, at 12:33 EDT , Service support , 04/09/20 11:10 Brain/Head without Contrast [CT] Stat Chest 1 View (Portable) [RAD] Stat Laboratory Results 04/09/20 04/09/2004/09/20 11:03 11:03 11:03 WBC 11.1 H RBC 4.13 L Hgb 13.6 Hct 41.9 MCV 101.5 H MCH 32.9 H MCHC 32.5 RDW Std Deviation 48.1 H RDW Coeff of [place] 12.9 Plt Count 194 MPV 12.7 H Immature Gran % (Auto) 1.400 H Neut % (Auto) 63.6 Lymph % (Auto) 10.8 L Wise % (Auto) 21.7 H Eos % (Auto) 2.0 Baso % (Auto) 0.5 Absolute Neuts (auto) 7.0 Absolute Lymphs (auto) 1.19 Nucleated RBC % 0 Differential Comment SCANNED PT 14.6 INR 1.2 APTT 38.4 H Sodium 142 Potassium 3.9 Chloride 103 Carbon Dioxide 33.0 H Anion Gap 6 BUN 22 H Creatinine 1.18 H Estim Creat Clear Calc 39.44 Est GFR (MDRD) Af Amer 57 L Est GFR (MDRD) Non-Af 47 L BUN/Creatinine Ratio 18.6 Glucose 111 H Calcium 9.0 Total Bilirubin 0.50 AST 24 ALT 40 Alkaline Phosphatase 86 Total Protein 7.2 Albumin 3.9 Globulin 3.3 Albumin/Globulin Ratio 1.2 Urine Color Urine Clarity Urine pH Ur Specific [place] Urine Protein Urine Glucose (UA) Urine Ketones Urine Occult Blood Urine Nitrite Urine Bilirubin Urine Urobilinogen Ur Leukocyte Esterase Urine RBC Urine WBC Ur Squamous Epith Cells Urine Bacteria Urine Mucus 04/09/20 11:25 WBC RBC Hgb Hct MCV MCH MCHC RDW Std Deviation RDW Coeff of [place] Plt Count MPV Immature Gran % (Auto) Neut % (Auto) Lymph % (Auto) Wise % (Auto) Eos % (Auto) Baso % (Auto) Absolute Neuts (auto) Absolute Lymphs (auto) Nucleated RBC % Differential Comment PT INR APTT Sodium Potassium Chloride Carbon Dioxide Anion Gap BUN Creatinine Estim Creat Clear Calc Est GFR (MDRD) Af Amer Est GFR (MDRD) Non-Af BUN/Creatinine Ratio Glucose Calcium Total Bilirubin AST ALT Alkaline Phosphatase Total Protein Albumin Globulin Albumin/Globulin Ratio Urine Color Yellow Urine Clarity Sl. Cloudy Urine pH 7.0 Ur Specific [place] 1.005 Urine Protein Negative Urine Glucose (UA) Normal Urine Ketones Negative Urine Occult Blood Negative Urine Nitrite Positive H Urine Bilirubin Negative Urine Urobilinogen Normal Ur Leukocyte Esterase Negative Urine RBC 0 SEEN Urine WBC 0 SEEN Ur Squamous Epith Cells 0-5 SEEN Urine Bacteria 0 SEEN Urine Mucus 0 SEEN - Medical Decision Making EKG shows normal sinus rhythm at a rate of 99 with no acute ischemic changes. Imaging as above. Labs essentially unremarkable except PTT 38.4. Patient is on subcutaneous Lovenox. CT did show an acute on chronic subdural hematoma with midline shift. Patient is protecting her airway. She awakens to voice. She follows commands. She is confused. At this point I do not believe she needs intubated. She was given protamine for low molecular weight heparin reversal. I spoke to the [facility] transfer line and the patient was accepted by neurosurgery, Dr. Galaviz. Patient will be transferred via medical helicopter. - Critical Care Time Critical care time (excluding procedures): 30-74 minutes ED Disposition - Plan for ED Patient: Disposition: [facility] Diagnosis: Acute on chronic intracranial subdural hematoma, Midline shift of brain due to hematoma Referrals: Augusta Wilson DO [Primary Care Provider] -
[2020-04-09 11:26] LABS: Absolute Lymphocyte Count 1.19 X10^3/uL (0.83-4.51); Basophil# 0.05 X10^3/uL; Basophil% 0.5 % (0-1); Eosinophil# 0.22 X10^3/uL; Hematocrit 41.9 % (37-47); Hemoglobin 13.6 g/dL (12.0-15.0); Lymphocyte # 1.19 X10^3/ul (4.0); Lymphocyte % 10.8 % (19-41); Mean Corp Hgb Conc 32.5 g/dL (32-36); Mean Corpuscular Hgb 32.9 pg (27.0-32.0); Mean Corpuscular Volume 101.5 fL (81-99); Mean Platelet Vol. 12.7 fl (6.2-12.0); Monocyte% 21.7 % (0-10); NRBC Flagged by Analyzer 0 % (0-5); Neutrophil # 7.04 X10^3/uL (2.7-7.7); Neutrophil % 63.6 % (47-70); POSITIVE DIFFERENTIAL YES; Platelet Count 194 K/mm3 (150-450); RBC Distribution Width CV 12.9 % (11.6-14.6); RBC Distribution Width SD 48.1 fl (35.1-43.9); Red Blood Count 4.13 M/mm3 (4.2-5.4); White Blood Count 11.1 K/mm3 (4.4-11.0)
[2020-04-09 11:28] LABS: Differential Indicated SCAN CRITERIA MET
[2020-04-09 11:37] LABS: ALB/GLOB Ratio 1.2 RATIO (0.9-2.4); AST(SGOT) 24 U/L (15-37); Alanine Aminotransfer ALT/SGPT 40 U/L (13-56); Albumin, Serum 3.9 g/dL (3.2-5.0); Alkaline Phosphatase 86 U/L (45-117); Anion Gap 6 (5-15); BUN 22 mg/dL (7-18); BUN/Creat Ratio 18.6 RATIO (10-20); Chloride 103 mmol/L (98-107); Creatinine, Serum 1.18 mg/dL (0.55-1.02); EST Glomerular Filtration Rate 47 mL/min (>60); Est Glom Filt Rate - Afr Amer 57 mL/min (>60); Estimated Creatinine Clearance 39.44 ml/min; Globulin 3.3 g/dL (2.2-4.2); Glucose 111 mg/dL (74-106); Potassium 3.9 mmol/L (3.5-5.1); Protein, Total 7.2 g/dL (6.4-8.2); Sodium Level 142 mmol/L (136-145)
[2020-04-09 11:50] LABS: Differential Comment SCANNED
[2020-04-09 11:56] LABS: Bacteria 0 SEEN /hpf (None Seen); Mucous, Urine 0 SEEN /hpf (<or=2+); Red Blood Cells-Urine 0 SEEN /hpf (0-5); White Blood Cells 0 SEEN /hpf (0-5)
[2020-04-09 12:00] LABS: Color, Urine Yellow (Yellow); Glucose, Dipstick Normal (Normal); Ketone-Dipstick Negative (Negative); Leukocyte Esterase-Dipstick Negative /ul (Negative); Nitrite-Dipstick Positive (Negative); Occult Blood-Urine Negative /ul (Negative); Protein-Dipstick Negative (Negative); Specific Gravity, Urine 1.005 (1.002-1.030); Urine Bilirubin Dipstick Negative (Negative); Urine Clarity Sl. Cloudy (Clear); Urine Urobilinogen Normal (Normal)
[2020-04-09 12:06] LABS: Squamous Epithelial Cells - UA 0-5 SEEN /hpf (5-10)
[2020-04-09 12:40] VITALS: BP 133/71; PULSE 97; RESP 14; TEMP 36.6; O2SAT 100
[2020-04-09 12:41] LABS: International Normalized Ratio 1.2; Prothrombin Time (Protime)PT. 14.6 SECONDS (11.7-14.9)
[2020-04-09 12:42] LABS: Partial Thromboplast Time 38.4 Seconds (24.1-36.2)
--- NOTE | 2020-04-09 12:50 | CM.ED ---
Social Work Patient to be life flighted due to brain bleed per nursing report. This social media strategist met with patient spouse, Jerod in room. Introduced self and social media strategist role. Support provided to Jerod. Patient resting in bed, sleeping. Jerod states to be aware of transfer to [facility] via life flight and reason for transfer. Jerod inquiring about address for [facility]. This social media strategist providing Jerod with address. Jerod states to be in contact with patient children and declines any further needs. Jerod calmly sitting in room. Support provided. Radha Avitia MSW, DARIO
[2020-04-09] MEDS: Protamine Sulfate 50 MG/5 ML Vial IV (12:59)
--- NOTE | 2020-04-09 13:26 | ED.RN ---
PER [facility], NO NEED TO CALL REPORT. JUST NEED TO KNOW WHEN LIFEFLIGHT LEAVES
[2020-04-09 13:28] VITALS: BP 141/67; PULSE 101; RESP 17; O2SAT 96
[2020-04-10 13:17] LABS: Pathologist Review Reviewed
== END 2020-04-09 13:30 | disposition short-term general hospital (02) ==
PROVIDERS: Emergency Provider Emergency Medicine; PCP Family Medicine
DX: I62.01 Nontraumatic acute subdural hemorrhage (principal); I62.03 Nontraumatic chronic subdural hemorrhage; G93.5 Compression of brain; I10 Essential (primary) hypertension
CPT/HCPCS: 70450; 71045; 80053; 81001; 85025; 85610; 85730; 93005; 96374; 99285; P9612; A4216

== ENCOUNTER 2020-04-17 16:47 | Inpatient (IN) | payer MEDICARE, OTHER, SELFPAY ==
[2020-04-17 16:55] VITALS: BP 115/47; PULSE 74; RESP 16; TEMP 35.9; O2SAT 96; BMI 22.3
[2020-04-17] MEDS: Senna/Docusate Sodium 1 Tablet 2 TABLET PO (17:40)
[2020-04-17] MEDS: oxyCODONE 5 MG Tablet PO ×2 (17:43→23:19)
--- NOTE | 2020-04-17 19:58 | PCM.HP.STD ---
Problem List (1) Debility Status: Acute (2) Encephalopathy Status: Acute (3) Multiple falls Status: Acute (4) Subdural hematoma Status: Acute (5) Seizure disorder Status: Chronic (6) Stroke Status: Chronic (7) HLD (hyperlipidemia) Status: Chronic Qualifiers: (8) Essential tremor Status: Chronic (9) Vascular dementia Status: Chronic (10) Hypertension Status: Chronic Qualifiers: (11) Neuropathic pain Status: Chronic (12) Left hemiparesis Status: Chronic (13) Anxiety Status: Chronic (14) Myelodysplasia (myelodysplastic syndrome) Status: Chronic (15) Depression Status: Chronic (16) Myeloma Status: Chronic Qualifiers: (17) Meningioma Status: Chronic History of Present Illness Date of Admission: 04/17/20 Chief Complaint: Here for rehabilitation, strengthening, prior to discharge home with . 04/09/2020 The patient is a 75 year old Female with below past medical history presented to [facility] Emergency Department with change in mental status. 04/09/2020 EKG normal sinus rhythm, normal EKG. 04/09/2020 CT brain moderate left subacute/acute subdural hematoma with midline shift. 04/09/2020 Chest X-ray left base atelectasis/scarring. Less responsive, weaker than usual, confused. Protamine given to reverse Lovenox. Transferred by helicopter to [facility] for left subdural hematoma. 04/09/2020 Admit to [facility]. Evacuation brain hematoma by craniectomy/craniotomy supratentorial. 04/12/2020 Crying. 04/13/2020 Emotional lability. 04/14/2020 Keppra for seizure prophylaxis. Remove subgaleal drains. Continue subdural drains. EEG no seizure activity. 04/17/2020 Admit to TCU with debility, here for rehabilitation, strengthening, prior to discharge home with . Past Medical History Past Medical History (Chronic Problems): Chronic Problems (Last Reviewed 04/03/20 @ 11:33 by Anika Choudhary) Seizure disorder (Chronic) Stroke (Chronic) HLD (hyperlipidemia) (Chronic) Anxiety and depression (Chronic) Essential tremor (Chronic) Low back pain (Chronic) Vascular dementia (Chronic) Hypertension (Chronic) Neuropathic pain (Chronic) Left hemiparesis (Chronic) Anxiety (Chronic) Chronic indwelling Bentley catheter (Chronic) Chronic anticoagulation (Chronic) on therapeutic Lovenox Cauda equina syndrome (Chronic) Myelodysplasia (myelodysplastic syndrome) (Chronic) Depression (Chronic) Cerebrovascular disease (Chronic) MDS (myelodysplastic syndrome), low grade (Chronic) Myeloma (Chronic) Lung nodule (Chronic) Left upper lobe, May 2018 Liver lesion, right lobe (Chronic) Negative biopsy for malignancy June 29, 2018 Anemia (Chronic) Cognitive dysfunction (Chronic) Meningioma (Chronic) Medical History: Medical History (Last Reviewed 04/03/20 @ 11:33 by Anika Choudhary) Cellulitis L03.90 left eye -2018 Meningioma D32.9 Gamma knife at [facility] ~2000 Osteopenia M85.80 Stroke I63.9 X2 - HOSPITALIZATION FOR 5 DAYS Allergies sulfamethoxazole [From Bactrim] Allergy (Severe, Verified 04/17/20 17:17) Other SEIZUERE, LOSS OF MOVEMENT IN LEGS trimethoprim [From Bactrim] Allergy (Severe, Verified 04/17/20 17:17) Other SEIZURE LOSS OF MOVEMENT IN LEGS indomethacin Allergy (Verified 04/17/20 17:17) NEEDS FOLLOW-UP pneumococcal vaccine Allergy (Verified 04/17/20 17:17) NEEDS FOLLOW-UP morphine Adverse Reaction (Severe, Verified 04/17/20 17:17) Nausea Home Medications: Ambulatory Orders Medication Instructions Recorded Atorvastatin Calcium [Lipitor] 80 mg PO QHS #30 tab 09/10/19 Gabapentin 100 mg PO BID 09/22/19 Tamsulosin HCl [Flomax] 0.4 mg PO DAILY@1730 09/26/19 buPROPion SR [Wellbutrin SR (150mg 150 mg PO BID 09/26/19 tablets)] Dexamethasone [Decadron] 40 mg PO WE 12/13/19 Cholecalciferol (Vitamin D3) 1,250 mcg PO DAILY 02/07/20 [D3-50] Meclizine HCl [Antivert] 25 mg PO Q8H PRN #16 tab 02/07/20 Pantoprazole Sodium [Protonix] 40 mg PO DAILY 02/07/20 Acetaminophen [Tylenol] 650 mg PO Q4H PRN PRN 04/17/20 Atenolol 25 mg PO DAILY 04/17/20 Calcium Carbonate [Elemental 1,200 mg PO DAILY 04/17/20 Calcium] Diazepam 2 - 4 mg PO Q8H PRN PRN 08/19/20 Enoxaparin Sodium [Lovenox] 40 mg SQ DAILY 04/17/20 Escitalopram Oxalate 10 mg PO DAILY 04/17/20 Furosemide 40 mg PO DAILY 04/17/20 Levetiracetam 1,000 mg PO Q12H 04/17/20 Mirabegron [Myrbetriq] 25 mg PO DAILY 04/17/20 Multivitamin with Minerals 1 ea PO DAILY 04/17/20 [Multivitamins with Minerals] Oxycodone HCl/Acetaminophen 1 ea PO Q8H PRN PRN 04/17/20 [Percocet 5-325 mg Tablet] Surgical History: Surgical History (Last Reviewed 04/03/20 @ 11:33 by Anika Choudhary) History of cholecystectomy Z90.49 History of hysterectomy Z90.710 Surgical History: cholecystectomy, hysterectomy, tonsillectomy, - - Gamma knife meningioma. Surgery to evacuate a very large Lumbar hematoma causing cauda equina S. Left subdural hematoma craniectomy/craniotomy. 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 Paternal Family History: Family History (Last Reviewed 04/03/20 @ 11:33 by Anika Choudhary) Mother Breast cancer Sister Breast cancer Aunt Breast cancer Daughter History of malignant melanoma Father Brain cancer Brother Lung cancer History Items: Cancer - Father with history of brain cancer. Review of Systems Constitutional: Denies: Chills, Fever, Weight Change HEENT: Reports: Head Aches. Denies: Sinus Congestion, Sinus Drainage Cardiovascular: Denies: Chest Pain, Palpitations Respiratory: Denies: Cough, Shortness of breath at rest, Sputum production Gastrointestinal: Denies: Abdominal Pain, Nausea, Vomiting Genitourinary: Denies: Dysuria Musculoskeletal: Denies: Joint Pain, Joint Tenderness Skin: Denies: Rash, Wounds Neurological: Denies: Numbness, Tingling, Focal weakness Psychiatric: Denies: Anxiety, Depression, Homicidal Ideations, Suicidal Ideations Hematologic/ Lymphatic: Denies: Easy Bruising, Easy Bleeding VTE Information - Inpt Only VTE Present on Admission: No VTE Mechan Device Prophylaxis: Knee High RICKIE Hose VTE Pharm Prophylaxis ordered?: Yes Patient Problems: Active and Suspected Problems (Last Reviewed 04/03/20 @ 11:33 by Anika Choudhary) Debility (Acute) Encephalopathy (Acute) Multiple falls (Acute) Subdural hematoma (Acute) - Physical Exam Vitals/I&O's: Vital Signs Temp Pulse Resp BP Pulse Ox 96.7 F L 74 16 115/47 L 96 04/17/20 16:55 04/17/20 16:55 04/17/20 16:55 04/17/20 16:55 04/17/20 16:55 Oxygen Delivery Method Room Air Weight: 58.967 kg Body Mass Index (BMI) 22.3 Finger Stick Blood Glucose 106 Intake and Output for Last 24 Hours 04/15/20 04/16/20 04/17/20 23:59 23:59 23:59 Intake Total 120 / 120 Balance 120 / 120 General: Alert, Oriented x3, Cooperative HEENT: Atraumatic, PERRLA, EOMI, Normocephalic Neck: Supple, No JVD, Negative Carotid Bruits Lungs: Clear to auscultation, Normal air movement Cardiovascular: Regular rate, No murmurs Abdomen: Bowel Sounds Present, Soft, Non Tender Extremities: No edema, Capillary Refill Less than 3 Seconds Skin: No rashes, No breakdown Musculoskeletal: No Tenderness to Palpation of Joints or Extremities Neurological: Cranial nerves II-XII grossly intact Psych/Mental Status: Normal Affect, Appropriate Current Medications Acetaminophen (Tylenol) 650 mg PO Q4H PRN PRN PRN Reason: Pain 1-10 or Fever Atenolol (Tenormin (Beta Joann)) 25 mg PO DAILY [facility] Atorvastatin Calcium (Lipitor) 80 mg PO QHS [facility] Bupropion HCl (Wellbutrin Sr (150mg Tablets)) 150 mg PO BID [facility] Calcium Carbonate (Tums) 1,000 mg PO DAILYCM [facility] Cholecalciferol (Vitamin D (25mcg)) 1,000 unit PO DAILY [facility] Dexamethasone (Decadron) 40 mg PO WE [facility] Diazepam (Valium) 2 - 4 mg PO Q8H PRN PRN PRN Reason: Vertigo Enoxaparin Sodium (Lovenox) 40 mg SC DAILY [facility] Escitalopram Oxalate (Lexapro) 10 mg PO DAILY [facility] Furosemide (Lasix) 40 mg PO DAILY [facility] Gabapentin (Neurontin) 100 mg PO BID [facility] Levetiracetam (Keppra Tablet) 1,000 mg PO Q12 [facility] Stop: 04/30/20 18:01 Meclizine HCl (Antivert) 25 mg PO Q8H PRN PRN Reason: DIZZINESS Mirabegron (Myrbetriq) 25 mg PO DAILY [facility] Multivitamins/Minerals (Multivitamin With Minerals (Bkc)) 1 tablet PO DAILY@0800 [facility] Nutritional Formula (Lactose Free) (Ensure Enlive) 120 ml PO 4X/DAY [facility] Oxycodone HCl (Oxyir) 5 mg PO Q8H PRN PRN PRN Reason: Pain Score 4-10/10 Last Admin: 04/17/20 17:43 Dose: 5 mg Documented by: Pantoprazole Sodium (Protonix) 40 mg PO DAILY [facility] Senna/Docusate Sodium (Senokot-S, Kassy-Colace) 2 tablet PO BID [facility] Last Admin: 04/17/20 17:40 Dose: 2 tablet Documented by: Tamsulosin HCl (Flomax) 0.4 mg PO DAILY@1730 [facility] Tuberculin PPD (Tubersol, Aplisol, Ppd) 5 tu ID X1 ONE Stop: 04/18/20 10:01 Tuberculin PPD (Tubersol, Aplisol, Ppd) 5 tu ID X1 ONE Stop: 04/25/20 10:01 Assessment/Plan All Active Problems (Last Reviewed 04/03/20 @ 11:33 by Anika Choudhary) Debility (Acute) Encephalopathy (Acute) Multiple falls (Acute) Subdural hematoma (Acute) 75 year old female with below past medical history hospitalized for left subdural hematoma requiring evacuation craniectomy/craniotomy 04/09/2020, admitted to TCU with debility, here for rehabilitation, strengthening, prior to discharge home with . Debility - PT/OT. Cognition - ST. Pain - Tylenol 1000MG Q6H PRN pain (1-3), Oxycodone 5MG Q4H PRN pain (4-10). Bowel - Senna/colace 2 tablets BID, Dulcolax 10MG [place] daily PRN. Adult immunization - Administer Prevnar 13, Pneumovax 23, Fluzone as appropriate. DVT prophylaxis - Lovenox 40MG SC daily. Hypertension - Atenolol 25MG daily. Hyperlipidemia - Atorvastatin 80MG QHS. 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 Multiple Myeloma - Decadron 40MG per week. Vertigo - Meclizine 25MG Q8H PRN, Valium 2-4MG Q8H PRN. Nutrition - MVI daily, Ensure Enlive 120ML 4x/day. Anxiety - Lexapro 10MG daily, stable chronic fci use, GDR not recommended. Edema - Lasix 40MG daily. Neuropathic pain - Gabapentin 100MG BID. Seizure disorder - Keppra 1000MG Q12H. Overactive bladder - Myrbetriq 25MG daily. GERD - Pantoprazole 40MG daily. Urinary retention - Tamsulosin 0.4MG daily.
[2020-04-17] MEDS: buPROPion (SR) 150 MG Tablet.SA PO (20:51)
[2020-04-17] MEDS: levETIRAcetam 1,000 MG Tablet 1000 MG PO (20:52)
[2020-04-17] MEDS: Gabapentin 100 MG Capsule PO (20:52)
[2020-04-17] MEDS: Atorvastatin Calcium 80 MG Tablet PO (20:52)
[2020-04-18] MEDS: oxyCODONE 5 MG Tablet PO ×2 (04:20→18:48)
[2020-04-18 04:55] VITALS: BP 112/50; PULSE 64; RESP 16; TEMP 36.9; O2SAT 99
[2020-04-18] MEDS: levETIRAcetam 1,000 MG Tablet 1000 MG PO ×2 (04:59→17:19)
[2020-04-18] MEDS: Gabapentin 100 MG Capsule PO ×2 (04:59→17:19)
[2020-04-18] MEDS: buPROPion (SR) 150 MG Tablet.SA PO ×2 (04:59→17:19)
[2020-04-18] MEDS: Mirabegron 25 MG TAB.ER.24H PO (04:59)
[2020-04-18] MEDS: Furosemide 40 MG Tablet PO (04:59)
[2020-04-18] MEDS: Escitalopram Oxalate 10 MG Tablet PO (04:59)
[2020-04-18] MEDS: Pantoprazole Sodium 40 MG Tablet PO (04:59)
[2020-04-18] MEDS: Enoxaparin 40 MG/0.4 ML Syringe SC (04:59)
[2020-04-18] MEDS: Senna/Docusate Sodium 1 Tablet 2 TABLET PO ×2 (04:59→17:16)
[2020-04-18] MEDS: Atenolol 25 MG Tablet PO (04:59)
[2020-04-18] MEDS: Menthol/Lanolin/Calamine/Znox 113 GM Tube 1 APPLIC TOPICAL ×2 (05:06→20:57)
[2020-04-18 06:02] LABS: Hematocrit 25.2 % (37-47); Mean Corp Hgb Conc 31.7 g/dL (32-36); Mean Corpuscular Hgb 33.2 pg (27.0-32.0); Mean Corpuscular Volume 104.6 fL (81-99); Mean Platelet Vol. 12.2 fl (6.2-12.0); POSITIVE COUNT YES; POSITIVE DIFFERENTIAL YES; POSITIVE MORPHOLOGY YES; Platelet Count 304 K/mm3 (150-450); RBC Distribution Width CV 13.3 % (11.6-14.6); RBC Distribution Width SD 51.1 fl (35.1-43.9); Red Blood Count 2.41 M/mm3 (4.2-5.4); White Blood Count 24.6 K/mm3 (4.4-11.0)
[2020-04-18 06:27] LABS: Differential Indicated MANUAL DIFF
[2020-04-18 06:28] LABS: BUN 26 mg/dL (7-18); Creatinine, Serum 0.75 mg/dL (0.55-1.02); Estimated Creatinine Clearance 41.33 ml/min; Glucose 105 mg/dL (74-106)
[2020-04-18 06:29] LABS: Anion Gap 5 (5-15); BUN/Creat Ratio 34.7 RATIO (10-20); Calcium,Total 8.2 mg/dL (8.5-10.1); Chloride 109 mmol/L (98-107); EST Glomerular Filtration Rate 80 mL/min (>60); Est Glom Filt Rate - Afr Amer 97 mL/min (>60); Potassium 3.5 mmol/L (3.5-5.1); Sodium Level 141 mmol/L (136-145)
[2020-04-18 06:51] LABS: Lymphocyte 4 % (19-41); Metamyelocyte 5 % (0-1); Monocyte 17 % (0-10); Neutrophil-Band 9 % (0-5); Neutrophil-Segmented 65 % (47-70); Total Cells Counted 100 (MANUAL DIFF)
[2020-04-18 06:53] LABS: Absolute Neutrophil Count 18.2 X10^3/uL (2.0-7.7)
[2020-04-18 06:54] LABS: Absolute Lymphocyte Count 0.98 X10^3/uL (0.83-4.51); Lymphocyte # 0.98 X10^3/ul (4.0)
[2020-04-18 07:00] LABS: Macrocytosis 2+
[2020-04-18 07:03] LABS: Platelet Estimate ADEQUATE (ADEQ)
[2020-04-18] MEDS: Multivitamins,Ther W-Minerals Tablet 1 TABLET PO (08:13)
[2020-04-18 09:15] VITALS: PULSE 63; RESP 16; O2SAT 97
[2020-04-18] MEDS: Tuberculin,Purif.prot.deriv. 50 TU/ML Vial 5 ML ID (10:10)
[2020-04-18 14:12] LABS: Pathologist Review Reviewed
--- NOTE | 2020-04-18 14:12 | PHA.CONS_ITS ---
<AgnieszkajulioMehreen M - Last Filed: 04/18/20 14:12> Progress Note - Pharmacy Subjective: TCU ADMISSION Objective: Allergies sulfamethoxazole [From Bactrim] Allergy (Severe, Verified 04/17/20 17:17) Other SEIZUERE, LOSS OF MOVEMENT IN LEGS trimethoprim [From Bactrim] Allergy (Severe, Verified 04/17/20 17:17) Other SEIZURE LOSS OF MOVEMENT IN LEGS indomethacin Allergy (Verified 04/17/20 17:17) NEEDS FOLLOW-UP pneumococcal vaccine Allergy (Verified 04/17/20 17:17) NEEDS FOLLOW-UP morphine Adverse Reaction (Severe, Verified 04/17/20 17:17) Nausea Current Medications Generic Name Dose Route Start Last Admin Trade Name Freq PRN Reason Stop Dose Admin Acetaminophen 1,000 mg 04/17/20 20:19 Tylenol PO Q6H PRN Pain Score 1-3/10 Atenolol 25 mg 04/18/20 06:00 04/18/20 04:59 Tenormin (Beta Joann) PO 25 mg DAILY [facility] Administration Atorvastatin Calcium 80 mg 04/17/20 22:00 04/17/20 20:52 Lipitor PO 80 mg QHS [facility] Administration Bisacodyl 10 mg 04/17/20 20:19 Dulcolax RECTAL DAILY PRN Constipation Bupropion HCl 150 mg 04/17/20 18:00 04/18/20 04:59 Wellbutrin Sr (150mg Tablets) PO 150 mg BID [facility] Administration Calamine/Phenol 1 applic 04/18/20 06:00 04/18/20 05:06 Calmoseptine Ointment TOPICAL 1 applicatio 0600,2200 [facility] Administration Protocol Dexamethasone 40 mg 04/24/20 07:45 Decadron PO We@0745 [facility] Diazepam 2 - 4 mg 04/17/20 17:57 Valium PO Q8H PRN PRN Vertigo Enoxaparin Sodium 40 mg 04/18/20 06:00 04/18/20 04:59 Lovenox SC 40 mg DAILY [facility] Administration Escitalopram Oxalate 10 mg 04/18/20 06:00 04/18/20 04:59 Lexapro PO 10 mg DAILY [facility] Administration Furosemide 40 mg 04/18/20 06:00 04/18/20 04:59 Lasix PO 40 mg DAILY [facility] Administration Gabapentin 100 mg 04/17/20 18:00 04/18/20 04:59 Neurontin PO 100 mg BID [facility] Administration Levetiracetam 1,000 mg 04/17/20 18:00 04/18/20 04:59 Keppra Tablet PO 04/30/20 18:01 1,000 mg Q12 [facility] Administration Meclizine HCl 25 mg 04/17/20 17:57 Antivert PO Q8H PRN DIZZINESS Multivitamins/Minerals 1 tablet 04/18/20 08:00 04/18/20 08:13 Multivitamin With Minerals (Bkc) PO 1 tablet DAILY@0800 [facility] Administration Nutritional Formula (Lactose Free) 120 ml 04/17/20 22:00 04/18/20 11:42 Ensure Enlive PO 120 ml 4X/DAY [facility] Administration Oxycodone HCl 5 mg 04/17/20 20:19 04/18/20 04:20 Oxyir PO 5 mg Q4H PRN Administration Pain Score 4-10/10 Pantoprazole Sodium 40 mg 04/18/20 06:00 04/18/20 04:59 Protonix PO 40 mg DAILY [facility] Administration Senna/Docusate Sodium 2 tablet 04/17/20 18:00 04/18/20 04:59 Senokot-S, Kassy-Colace PO 2 tablet BID [facility] Administration Tamsulosin HCl 0.4 mg 04/18/20 17:30 Flomax PO DAILY@1730 [facility] Tuberculin PPD 5 tu 04/25/20 10:00 Tubersol, Aplisol, Ppd ID 04/25/20 10:01 X1 ONE Problem List (Last Reviewed 04/03/20 @ 11:33 by Anika Choudhary) Debility (Acute) Encephalopathy (Acute) Multiple falls (Acute) Subdural hematoma (Acute) Seizure disorder (Chronic) Stroke (Chronic) Vital Signs Temp Pulse Resp BP Pulse Ox 98.5 F 63 16 112/50 L 97 04/18/20 04:55 04/18/20 09:15 04/18/20 09:15 04/18/20 04:55 04/18/20 09:15 Oxygen Delivery Method Room Air Weight: 58.967 kg Body Mass Index (BMI) 22.3 Finger Stick Blood Glucose 106 Sodium 141 mmol/L (136-145) 04/18/20 05:20 Potassium 3.5 mmol/L (3.5-5.1) 04/18/20 05:20 Chloride 109 mmol/L (98-107) H 04/18/20 05:20 Carbon Dioxide 27.0 mmol/L (21.0-32.0) 04/18/20 05:20 Anion Gap 5 (5-15) 04/18/20 05:20 BUN 26 mg/dL (7-18) H 04/18/20 05:20 Creatinine 0.75 mg/dL (0.55-1.02) 04/18/20 05:20 Est GFR (MDRD) Af Amer 97 mL/min (>60) 04/18/20 05:20 Est GFR (MDRD) Non-Af 80 mL/min (>60) 04/18/20 05:20 BUN/Creatinine Ratio 34.7 RATIO (10-20) H 04/18/20 05:20 Glucose 105 mg/dL (74-106) 04/18/20 05:20 Assessment/Plan: 1. Pain: Tylenol 1000mg PO Q6h PRN pain 1-3, oxycodone 5mg PO Q4h PRN pain 4- 10,. Please continue to monitor for increased/decreased pain, PRN medication usage. 2. Seizures: Keppra 1000mg PO BID. Please continue to monitor for medication effectiveness, seizure activity. 3. Urinary retention: Flomax 0.4mg PO Daily. Please continue to monitor for urinary retention, medication effectiveness. 4. DVT Prophylaxis: Lovenox 40mg SC Daily. Please continue to monitor for S/S bleeding/bruising, renal function. 5. Cardiac: Atenolol 25mg PO Daily, Lipitor 80mg PO QHS, Lasix 40mg PO Daily. Please continue to monitor BP, pulse, electrolytes, fluid balance, lipid panel at least annually. 6. Neuropathic pain: Gabapentin 100mg PO BID. Please continue to monitor for improvement in symptoms, renal function. 7. GERD: Protonix 40mg PO Daily. Please continue to monitor for S/S GERD exacerbation, continue non-pharmacologic treatment as well. *8. Vertigo/Dizziness: Meclizine 25mg PO Q6h PRN, Valium 2-4mg PO Q8h PRN. Please continue to monitor PRN usage, medication effectiveness. Both medications are BEER's criteria medications, please evaluate use and see if medications can be avoided if possible, thanks. 9. Multiple Myeloma: Decadron 40mg PO Once weekly. Please continue to monitor chemotherapy treatment plan. 10. General Wellness: MVI 1 tab PO Daily. Please continue to monitor. Psychotropic Medications: *11. Anxiety/Depression: Escitalopram 10mg PO Daily, Wellbutrin SR 150mg PO BID. Please consider a GDR by 09/2020 if clinically indicated, thank you. Unnecessary Medications: None Bowel Regimen: Senna/Docusate 2 tab PO BID, Dulcolax 10mg KS daily PRN. Please continue to monitor for increased/decreased bowel movements and/or diarrhea. Date of Note:: 04/18/20 - Provider Comments Provider responsibility: Provider responsible to enter orders to implement recommendations <Jovanni Steven Chi - Last Filed: 04/18/20 17:09> Progress Note - Pharmacy Subjective: [] Objective: Allergies sulfamethoxazole [From Bactrim] Allergy (Severe, Verified 04/17/20 17:17) Other SEIZUERE, LOSS OF MOVEMENT IN LEGS trimethoprim [From Bactrim] Allergy (Severe, Verified 04/17/20 17:17) Other SEIZURE LOSS OF MOVEMENT IN LEGS indomethacin Allergy (Verified 04/17/20 17:17) NEEDS FOLLOW-UP pneumococcal vaccine Allergy (Verified 04/17/20 17:17) NEEDS FOLLOW-UP morphine Adverse Reaction (Severe, Verified 04/17/20 17:17) Nausea Current Medications Generic Name Dose Route Start Last Admin Trade Name Freq PRN Reason Stop Dose Admin Acetaminophen 1,000 mg 04/17/20 20:19 Tylenol PO Q6H PRN Pain Score 1-3/10 Atenolol 25 mg 04/18/20 06:00 04/18/20 04:59 Tenormin (Beta Joann) PO 25 mg DAILY [facility] Administration Atorvastatin Calcium 80 mg 04/17/20 22:00 04/17/20 20:52 Lipitor PO 80 mg QHS [facility] Administration Bisacodyl 10 mg 04/17/20 20:19 Dulcolax RECTAL DAILY PRN Constipation Bupropion HCl 150 mg 04/17/20 18:00 04/18/20 04:59 Wellbutrin Sr (150mg Tablets) PO 150 mg BID [facility] Administration Calamine/Phenol 1 applic 04/18/20 06:00 04/18/20 05:06 Calmoseptine Ointment TOPICAL 1 applicatio 0600,0 [facility] Administration Protocol Dexamethasone 40 mg 04/24/20 07:45 Decadron PO We@0745 [facility] Diazepam 2 - 4 mg 04/17/20 17:57 Valium PO Q8H PRN PRN Vertigo Enoxaparin Sodium 40 mg 04/18/20 06:00 04/18/20 04:59 Lovenox SC 40 mg DAILY [facility] Administration Escitalopram Oxalate 10 mg 04/18/20 06:00 04/18/20 04:59 Lexapro PO 10 mg DAILY [facility] Administration Furosemide 40 mg 04/18/20 06:00 04/18/20 04:59 Lasix PO 40 mg DAILY [facility] Administration Gabapentin 100 mg 04/17/20 18:00 04/18/20 04:59 Neurontin PO 100 mg BID [facility] Administration Levetiracetam 1,000 mg 04/17/20 18:00 04/18/20 04:59 Keppra Tablet PO 04/30/20 18:01 1,000 mg Q12 [facility] Administration Meclizine HCl 25 mg 04/17/20 17:57 Antivert PO Q8H PRN DIZZINESS Multivitamins/Minerals 1 tablet 04/18/20 08:00 04/18/20 08:13 Multivitamin With Minerals (Bkc) PO 1 tablet DAILY@0800 [facility] Administration Nutritional Formula (Lactose Free) 120 ml 04/17/20 22:00 04/18/20 11:42 Ensure Enlive PO 120 ml 4X/DAY [facility] Administration Oxycodone HCl 5 mg 04/17/20 20:19 04/18/20 04:20 Oxyir PO 5 mg Q4H PRN Administration Pain Score 4-10/10 Pantoprazole Sodium 40 mg 04/18/20 06:00 04/18/20 04:59 Protonix PO 40 mg DAILY [facility] Administration Senna/Docusate Sodium 2 tablet 04/17/20 18:00 04/18/20 04:59 Senokot-S, Kassy-Colace PO 2 tablet BID [facility] Administration Tamsulosin HCl 0.4 mg 04/18/20 17:30 Flomax PO DAILY@1730 [facility] Tuberculin PPD 5 tu 04/25/20 10:00 Tubersol, Aplisol, Ppd ID 04/25/20 10:01 X1 ONE Problem List (Last Reviewed 04/03/20 @ 11:33 by Anika Choudhary) Debility (Acute) Encephalopathy (Acute) Multiple falls (Acute) Subdural hematoma (Acute) Seizure disorder (Chronic) Stroke (Chronic) Vital Signs Temp Pulse Resp BP Pulse Ox 97.7 F L 63 14 96/55 L 98 04/18/20 14:37 04/18/20 14:37 04/18/20 14:37 04/18/20 14:37 04/18/20 14:37 Oxygen Delivery Method Room Air Weight: 58.967 kg Body Mass Index (BMI) 22.3 Finger Stick Blood Glucose 106 Sodium 141 mmol/L (136-145) 04/18/20 05:20 Potassium 3.5 mmol/L (3.5-5.1) 04/18/20 05:20 Chloride 109 mmol/L (98-107) H 04/18/20 05:20 Carbon Dioxide 27.0 mmol/L (21.0-32.0) 04/18/20 05:20 Anion Gap 5 (5-15) 04/18/20 05:20 BUN 26 mg/dL (7-18) H 04/18/20 05:20 Creatinine 0.75 mg/dL (0.55-1.02) 04/18/20 05:20 Est GFR (MDRD) Af Amer 97 mL/min (>60) 04/18/20 05:20 Est GFR (MDRD) Non-Af 80 mL/min (>60) 04/18/20 05:20 BUN/Creatinine Ratio 34.7 RATIO (10-20) H 04/18/20 05:20 Glucose 105 mg/dL (74-106) 04/18/20 05:20 Assessment/Plan: Psychotropic Medications: Unnecessary Medications: Bowel Regimen: - Provider Comments Provider responsibility: Provider responsible to enter orders to implement recommendations Provider Comments to Recommendations by Pharmacy: Agree
[2020-04-18 14:37] VITALS: BP 96/55; PULSE 63; RESP 14; TEMP 36.5; O2SAT 98
--- NOTE | 2020-04-18 15:44 | CHAPLAIN ---
Type of Pastoral Visit _x__ Initial Visit ___ Follow-up Visit ___ On-call Visit ___ General Patient Visit ___ Spiritual Assessment ___ Family Conference ___ Bereavement ___ Rapid Response ___ Code Blue ___ Other (describe below) Pastoral Care Referral From _x__ Patient ___ Family ___ Nurse ___ Physician ___ Solution Engineer ___ Professional Advisor ___ Other (describe below) Sacrament/Intervention ___ Active listening ___ Anointing ___ Congregational ___ Bereavement ___ Communion ___ Orly exploration ___ ___ Life review _x__ Prayer ___ Reconciliation ___ Sacrament of Sick _x__ Supportive presence ___ Wedding ___ Other (describe below) Pastoral Comments this patient has been seen by this service desk technician in numerous previous admissions; pt remembers service desk technician; pt is awake but drowsy; pt talks of her many times in hospital; pt welcomes presence and prayer; visit is limited due to pt being tired; offer of ongoing support given
[2020-04-18] MEDS: Tamsulosin HCl 0.4 MG Capsule PO (17:19)
[2020-04-18] MEDS: Atorvastatin Calcium 80 MG Tablet PO (20:55)
[2020-04-19] VITALS (8 sets, daily range): BP systolic 90–108; BP diastolic 22–50; PULSE 66–76; RESP 14–16; TEMP 36.9–37.3; O2SAT 94–98
[2020-04-19] MEDS: Senna/Docusate Sodium 1 Tablet 2 TABLET PO ×2 (05:02→17:12)
[2020-04-19] MEDS: Gabapentin 100 MG Capsule PO ×2 (05:02→17:12)
[2020-04-19] MEDS: buPROPion (SR) 150 MG Tablet.SA PO ×2 (05:02→17:12)
[2020-04-19] MEDS: Escitalopram Oxalate 10 MG Tablet PO (05:02)
[2020-04-19] MEDS: Pantoprazole Sodium 40 MG Tablet PO (05:02)
[2020-04-19] MEDS: levETIRAcetam 1,000 MG Tablet 1000 MG PO ×2 (05:02→17:12)
[2020-04-19] MEDS: Enoxaparin 40 MG/0.4 ML Syringe SC (05:03)
[2020-04-19] MEDS: Menthol/Lanolin/Calamine/Znox 113 GM Tube 1 APPLIC TOPICAL ×2 (05:17→20:46)
[2020-04-19] MEDS: Multivitamins,Ther W-Minerals Tablet 1 TABLET PO (09:01)
[2020-04-19] MEDS: oxyCODONE 5 MG Tablet PO (14:58)
[2020-04-19] MEDS: Tamsulosin HCl 0.4 MG Capsule PO (17:12)
--- NOTE | 2020-04-19 20:39 | NURSING ---
Patient complained to FIRST RESPONDER of head hurting and feeling dizzy during HS care. Vitals obtained and diastolic low. Manual blood pressure taken several times. Patient also c/o vision changes, but unable to describe the changes. Able to read what was written on paper and if this nurse held fingers up. Advised RN of situation. Dr. Steven notified. New orders received.
[2020-04-19] MEDS: Atorvastatin Calcium 80 MG Tablet PO (20:46)
[2020-04-19] MEDS: 0.9% Normal Saline 1,000 ML 999 ML IV (21:38)
[2020-04-19] MEDS: 0.9% Normal Saline 1,000 ML 75 ML IV (22:41)
[2020-04-20 02:14] VITALS: BP 101/33; PULSE 73
[2020-04-20] MEDS: buPROPion (SR) 150 MG Tablet.SA PO (05:23)
[2020-04-20] MEDS: levETIRAcetam 1,000 MG Tablet 1000 MG PO (05:23)
[2020-04-20] MEDS: Menthol/Lanolin/Calamine/Znox 113 GM Tube 1 APPLIC TOPICAL (05:23)
[2020-04-20] MEDS: Senna/Docusate Sodium 1 Tablet 2 TABLET PO (05:23)
[2020-04-20] MEDS: Escitalopram Oxalate 10 MG Tablet PO (05:23)
[2020-04-20] MEDS: Pantoprazole Sodium 40 MG Tablet PO (05:23)
[2020-04-20] MEDS: Gabapentin 100 MG Capsule PO (05:23)
[2020-04-20] MEDS: Enoxaparin 40 MG/0.4 ML Syringe SC (05:23)
[2020-04-20 05:32] VITALS: BP 95/31; PULSE 70; RESP 16; TEMP 36.7; O2SAT 97
--- NOTE | 2020-04-20 07:20 | NURSING ---
Dr. Steven notified of patient's BP continues to be low this morning. BP 95/31 P 70. Patient continues to complain of not feeling right and that she has had changes to her vision. Orders given to send patient down to ER for CT scan.
--- NOTE | 2020-04-20 07:41 | NURSING ---
updated that patient was being sent to ER.
[2020-04-20 07:44] LABS: Hematocrit 23.6 % (37-47); Hemoglobin 7.3 g/dL (12.0-15.0); Mean Corp Hgb Conc 30.9 g/dL (32-36); Mean Corpuscular Volume 106.8 fL (81-99); Mean Platelet Vol. 11.8 fl (6.2-12.0); POSITIVE COUNT YES; POSITIVE DIFFERENTIAL YES; POSITIVE MORPHOLOGY YES; Platelet Count 289 K/mm3 (150-450); RBC Distribution Width CV 13.2 % (11.6-14.6); RBC Distribution Width SD 51.2 fl (35.1-43.9); Red Blood Count 2.21 M/mm3 (4.2-5.4); White Blood Count 14.3 K/mm3 (4.4-11.0)
[2020-04-20 07:46] LABS: Differential Indicated MANUAL DIFF
[2020-04-20 08:06] LABS: Basophil 1 % (0-1); Eosinophil 1 % (0-5); Lymphocyte 10 % (19-41); Metamyelocyte 7 % (0-1); Monocyte 16 % (0-10); Neutrophil-Band 3 % (0-5); Neutrophil-Segmented 62 % (47-70); Total Cells Counted 100 (MANUAL DIFF)
[2020-04-20 08:07] LABS: Hypochromasia 1+; Platelet Estimate ADEQUATE (ADEQ); Red Cell Morphology N CYTIC NORMAL (NORM C&C)
[2020-04-20 08:08] LABS: Absolute Neutrophil Count 9.3 X10^3/uL (2.0-7.7); Neutrophil # 9.29 X10^3/uL (2.7-7.7)
[2020-04-20 08:16] LABS: Anion Gap 4 (5-15); BUN 22 mg/dL (7-18); BUN/Creat Ratio 28.9 RATIO (10-20); Calcium,Total 7.9 mg/dL (8.5-10.1); Chloride 110 mmol/L (98-107); Creatinine, Serum 0.76 mg/dL (0.55-1.02); EST Glomerular Filtration Rate 79 mL/min (>60); Est Glom Filt Rate - Afr Amer 95 mL/min (>60); Estimated Creatinine Clearance 41.33 ml/min; Glucose 118 mg/dL (74-106); Potassium 4.1 mmol/L (3.5-5.1); Sodium Level 140 mmol/L (136-145)
--- NOTE | 2020-04-21 05:53 | NURSING ---
Patient remains on PCU unit for observation
[2020-04-22 12:55] LABS: Pathologist Review Reviewed
--- NOTE | 2020-04-22 17:46 | DCINST_ITS ---
You will use the following diet at home:: No restrictions, Regular Your food should be the consistency of: Regular Your liquids should be the consistency of: Regular/Thin Discharge Activity: Return to Normal Activity, May Shower, Use Walker Weight Bearing Status: Weight bearing as tolerated Call your doctor if you observe: Fever of 101 or Higher, Inability to urinate, Inability to have a bowel movement, Shortness of breath, Chest pain, Uncontrolled pain Allergies/Adverse Reactions: Allergies sulfamethoxazole [From Bactrim] Allergy (Severe, Verified 04/20/20 07:46) Other SEIZUERE, LOSS OF MOVEMENT IN LEGS trimethoprim [From Bactrim] Allergy (Severe, Verified 04/20/20 07:46) Other SEIZURE LOSS OF MOVEMENT IN LEGS indomethacin Allergy (Verified 04/20/20 07:46) NEEDS FOLLOW-UP pneumococcal vaccine Allergy (Verified 04/20/20 07:46) NEEDS FOLLOW-UP morphine Adverse Reaction (Severe, Verified 04/20/20 07:46) Nausea Medications to take at Discharge Atorvastatin Calcium [Lipitor] 80 mg PO QHS #30 tab 09/10/19 Gabapentin 100 mg PO BID 09/22/19 Tamsulosin HCl [Flomax] 0.4 mg PO DAILY@1730 09/26/19 buPROPion SR [Wellbutrin SR (150mg tablets)] 150 mg PO BID 09/26/19 Dexamethasone [Decadron] 40 mg PO WE 12/13/19 Cholecalciferol (Vitamin D3) [D3-50] 1,250 mcg PO DAILY 02/07/20 Meclizine HCl [Antivert] 25 mg PO Q8H PRN #16 tab 02/07/20 Pantoprazole Sodium [Protonix] 40 mg PO DAILY 02/07/20 Acetaminophen [Tylenol] 650 mg PO Q4H PRN PRN 04/17/20 Calcium Carbonate [Calcium] 1,200 mg PO DAILY 04/17/20 Diazepam 2 - 4 mg PO Q8H PRN PRN 04/17/20 Enoxaparin Sodium [Lovenox] 40 mg SQ DAILY 04/17/20 Escitalopram Oxalate 10 mg PO DAILY 04/17/20 Levetiracetam 1,000 mg PO Q12H 04/17/20 Mirabegron [Myrbetriq] 25 mg PO DAILY 04/17/20 Multivitamin with Minerals [Multivitamins with Minerals] 1 ea PO DAILY 04/17/20 Oxycodone HCl/Acetaminophen [Percocet 5-325 mg Tablet] 1 ea PO Q8H PRN PRN 04/17/20 Ferrous Sulfate 325 mg PO 1200,1700 04/22/20 Primary Care Physician: Augusta Wilson DO [Primary Care Provider] - Please follow up with your Primary Care Physician in: 1 week. Test Results: Test results from this visit will be discussed in further detail at your follow- up appointment, if applicable. Proposed Discharge Date: 04/21/20
--- NOTE | 2020-04-22 17:48 | PCM.DC.SUM ---
Discharge Date and Diagnosis Date of Admission: 04/20/20 Date of Discharge: 04/21/20 - Secondary Discharge Diagnosis Chronic Problems: Chronic Problems (Last Reviewed 04/03/20 @ 11:33 by Anika Choudhary) Seizure disorder (Chronic) Stroke (Chronic) HLD (hyperlipidemia) (Chronic) Anxiety and depression (Chronic) Essential tremor (Chronic) Low back pain (Chronic) Vascular dementia (Chronic) Hypertension (Chronic) Neuropathic pain (Chronic) Left hemiparesis (Chronic) Anxiety (Chronic) Chronic indwelling Bentley catheter (Chronic) Chronic anticoagulation (Chronic) on therapeutic Lovenox Cauda equina syndrome (Chronic) Myelodysplasia (myelodysplastic syndrome) (Chronic) Depression (Chronic) Cerebrovascular disease (Chronic) MDS (myelodysplastic syndrome), low grade (Chronic) Myeloma (Chronic) Lung nodule (Chronic) Left upper lobe, May 2018 Liver lesion, right lobe (Chronic) Negative biopsy for malignancy June 29, 2018 Anemia (Chronic) Cognitive dysfunction (Chronic) Meningioma (Chronic) Hospital Course and Treatment Operations: None Procedures: None Summary of Care Provided: The patient is a 75 year old Female with below past medical history hospitalized for left subdural hematoma requiring evacuation craniectomy/craniotomy 04/09/2020, admitted to TCU with debility, here for rehabilitation, strengthening, prior to discharge home with . Resident discharged to [facility] Emergency Department for hypotension despite 1.5 liters IV fluid, headache, blurry vision. - Physical Exam Vitals/I&O's: Vital Signs Temp Pulse Resp BP Pulse Ox 98.0 F 70 16 95/31 L 97 04/20/20 05:32 04/20/20 05:32 04/20/20 05:32 04/20/20 05:32 04/20/20 05:32 Oxygen Delivery Method Room Air Weight: 59.024 kg Body Mass Index (BMI) 22.3 Finger Stick Blood Glucose 106 Intake and Output for Last 24 Hours 04/20/20 04/21/20 04/22/20 23:59 23:59 23:59 Intake Total 1000 / 1000 Output Total 750 / 750 Balance 250 / 250 Laboratory Results 04/20/20 07:07: Diff Path Review Reviewed Discharge Diet: No Restrictions Discharge Activity: Return to Normal Activity, May Shower, Use Walker Weight Bearing Status: Weight bearing as tolerated Call your doctor if you observe: Fever of 101 or Higher, Inability to urinate, Inability to have a bowel movement, Shortness of breath, Chest pain, Uncontrolled pain Home Medications: Medications to take at Discharge Atorvastatin Calcium [Lipitor] 80 mg PO QHS #30 tab 09/10/19 Gabapentin 100 mg PO BID 09/22/19 Tamsulosin HCl [Flomax] 0.4 mg PO DAILY@1730 09/26/19 buPROPion SR [Wellbutrin SR (150mg tablets)] 150 mg PO BID 09/26/19 Dexamethasone [Decadron] 40 mg PO WE 12/13/19 Cholecalciferol (Vitamin D3) [D3-50] 1,250 mcg PO DAILY 02/07/20 Meclizine HCl [Antivert] 25 mg PO Q8H PRN #16 tab 02/07/20 Pantoprazole Sodium [Protonix] 40 mg PO DAILY 02/07/20 Acetaminophen [Tylenol] 650 mg PO Q4H PRN PRN 04/17/20 Calcium Carbonate [Calcium] 1,200 mg PO DAILY 04/17/20 Diazepam 2 - 4 mg PO Q8H PRN PRN 04/17/20 Enoxaparin Sodium [Lovenox] 40 mg SQ DAILY 04/17/20 Escitalopram Oxalate 10 mg PO DAILY 04/17/20 Levetiracetam 1,000 mg PO Q12H 04/17/20 Mirabegron [Myrbetriq] 25 mg PO DAILY 04/17/20 Multivitamin with Minerals [Multivitamins with Minerals] 1 ea PO DAILY 04/17/20 Oxycodone HCl/Acetaminophen [Percocet 5-325 mg Tablet] 1 ea PO Q8H PRN PRN 04/17/20 Ferrous Sulfate 325 mg PO 1200,1700 04/22/20 Primary Care Physician: Augusta Wilson DO [Primary Care Provider] - Please follow up with your Primary Care Physician in: 1 week. Disposition: Acute care Hospital Minutes spent on discharge:: 30 Patient Condition:: Guarded Medical Necessity - Tobacco Use Smoking Status: Never smoker Tobacco Use: Non-smoker Meaningful Use Info Meaningful Use Diagnoses (Choose all that apply): None applicable
--- NOTE | 2020-04-30 09:14 | MDS.RN ---
Information for the mds was obtained from review of the clinical record, interview of resident, staff, and direct observation of resident's care.
== END 2020-04-20 07:45 | disposition short-term general hospital (02) | DRG 949 ==
PROVIDERS: Admitting Provider Family Medicine Geriatric Medicine; PCP Family Medicine; Visit Provider Family Medicine Geriatric Medicine
DX: S06.5X9D Traumatic subdural hemorrhage with loss of consciousness of unspecified duration, subsequent encounter (principal); C90.00 Multiple myeloma not having achieved remission; G81.94 Hemiplegia, unspecified affecting left nondominant side; X58.XXXD Exposure to other specified factors, subsequent encounter; G25.0 Essential tremor; G40.909 Epilepsy, unspecified, not intractable, without status epilepticus; E78.5 Hyperlipidemia, unspecified; R29.6 Repeated falls; F01.50 Vascular dementia, unspecified severity, without behavioral disturbance, psychotic disturbance, mood disturbance, and anxiety; I10 Essential (primary) hypertension; D46.9 Myelodysplastic syndrome, unspecified; F32.9 Major depressive disorder, single episode, unspecified; F41.9 Anxiety disorder, unspecified; D32.9 Benign neoplasm of meninges, unspecified; N32.81 Overactive bladder; K21.9 Gastro-esophageal reflux disease without esophagitis; R33.9 Retention of urine, unspecified
CPT/HCPCS: 36415; 71046; 80048; 85025; 87635; 92507; 92523; 92526; 94799; 97110; 97116; 97162; 97166; 97530; 97535; G0008; J7030; 90686; U0003

== ENCOUNTER 2020-04-20 07:44 | Inpatient (IN) | payer MEDICARE, OTHER, SELFPAY ==
[2020-04-17 16:55] VITALS: BMI 22.3
[2020-04-20] VITALS (11 sets, daily range): BP systolic 92–125; BP diastolic 38–53; PULSE 71–90; RESP 14–18; TEMP 36.6–36.8; O2SAT 94–98; BMI 24.9; BMI 22.6
--- NOTE | 2020-04-20 08:06 | EKG12_ITS ---
Test Reason : HYPOTENSION Blood Pressure : / mmHG Vent. Rate : 074 BPM Atrial Rate : 074 BPM P-R Int : 158 ms QRS Dur : 082 ms QT Int : 390 ms P-R-T Axes : 055 035 040 degrees QTc Int : 432 ms Normal sinus rhythm Normal ECG Confirmed by CHRIS CANNON MD ([id number]), visual effects editor TIMMY VALENZUELA ([id number]) on 04/23/2020 9:29:22 AM Referred By: FRANNIE Confirmed By:CHRIS CANNON MD
--- NOTE | 2020-04-20 08:07 | CT_ITS ---
STUDY: CT BRAIN WITHOUT CONTRAST REASON FOR EXAM: Female, 75 years old. Status post evacuation of left subdural hematoma. RADIATION DOSAGE (If Supplied By Facility): CTDIvol = ( 44.99 ) mGy, DLP = ( 829.85 ) mGycm TECHNIQUE: Transaxial CT imaging of the brain was performed without administration of intravenous contrast material. Individualized dose optimization techniques were used for this CT. COMPARISON: 04/09/2020. FINDINGS: Normal soft tissue structures. Since the previous examination, the patient underwent left temporoparietal craniectomy. The previously noted large left subacute subdural hematoma has been evacuated. The previously noted shift of the midline to the right side has essentially resolved. There may be residual 1.5 mm shift. Partially calcified left parasagittal mass consistent with meningioma is again seen unchanged. Normal basal ganglia and thalami. Normal brainstem. Normal cerebellum. There is no new intracranial hemorrhage. There are other no findings of an acute ischemic infarction. Normal visualized paranasal sinuses. CT/Brain/Head without Contrast IMPRESSION: 1. Status post left temporoparietal craniectomy with evacuation of the previously noted left subdural hematoma. 2. Essentially resolved shift of the midline to the right side. 3. No new bleed is seen. Electronically Signed: Thuan Lopez MD at 9:17 EDT Tel , Service support ,
--- NOTE | 2020-04-20 08:11 | ED.VIS.GEN ---
History of Present Illness Chief Complaint: Hypotension Informant: Patient Narrative: Patient presents the emergency department for the evaluation of hypotension. Patient states that she was recently diagnosed with a subdural hematoma and underwent evacuation/craniotomy at [facility]. She has been in the TCU for approximately 1 week. Reported to me that she has had hypotension for 1 day. She received about a liter and a half of fluid boluses yesterday. She has had a headache since her craniotomy and states it has not changed. She denies hurting anywhere else. She states she feels like she has been eating and drinking appropriately. No chest pain shortness of breath, abdominal pain, no rashes or swelling, no diarrhea or urinary symptoms. No cough. No sore throat. No vision changes other neurologic deficits from baseline. Nurses note from TCU that she is ANO x3. Per [facility], the patient's discharge hemoglobin was 8.1. Past Medical History - Allergies and Home Meds Allergies/Adverse Reactions: Allergies sulfamethoxazole [From Bactrim] Allergy (Severe, Verified 04/20/20 07:46) Other SEIZUERE, LOSS OF MOVEMENT IN LEGS trimethoprim [From Bactrim] Allergy (Severe, Verified 04/20/20 07:46) Other SEIZURE LOSS OF MOVEMENT IN LEGS indomethacin Allergy (Verified 04/20/20 07:46) NEEDS FOLLOW-UP pneumococcal vaccine Allergy (Verified 04/20/20 07:46) NEEDS FOLLOW-UP morphine Adverse Reaction (Severe, Verified 04/20/20 07:46) Nausea Primary Care Physician: Augusta Wilson DO [Primary Care Provider] - Surgical History: cholecystectomy, hysterectomy, tonsillectomy, - - Gamma knife meningioma. Surgery to evacuate a very large Lumbar hematoma causing cauda equina S. Left subdural hematoma craniectomy/craniotomy. Smoking Status: Never smoker - Family History Maternal Family History: Family History (Last Reviewed 04/03/20 @ 11:33 by Anika Choudhary) Mother Breast cancer Sister Breast cancer Aunt Breast cancer Daughter History of malignant melanoma Father Brain cancer Brother Lung cancer Family History: Reports: Cancer - Mother with history of breast cancer. Paternal Family History: Family History (Last Reviewed 04/03/20 @ 11:33 by Anika Choudhary) Mother Breast cancer Sister Breast cancer Aunt Breast cancer Daughter History of malignant melanoma Father Brain cancer Brother Lung cancer Family History: Reports: Cancer - Father with history of brain cancer. Review of Systems General: Denies: Chills, Fever, Sweats Eyes: Denies: Visual changes - left, Visual changes - right, Visual changes - bilaterally, Blurred vision - left, Blurred vision - right, Blurred Vision - bilaterally, Diplopia ENT: Denies: Left ear pain, Right ear pain, Rhinorrhea, Sore throat Cardiovascular: Denies: Chest pain, Palpitations Respiratory: Denies: Dyspnea, Cough, Dyspnea on exertion Gastrointestinal: Denies: Abdominal pain, Nausea, Vomiting, Diarrhea, Melena, Hematochezia Genitourinary: Denies: Dysuria, Hematuria, Frequency Musculoskeletal: Denies: Neck pain, Back pain, Extremity Pain Skin: Reports: Wounds. Denies: Rash Neurological: Reports: Headache. Denies: Weakness, Numbness Physical Exam Vital Signs/Narrative: Vital Signs Temp Pulse Resp BP Pulse Ox 04/20/20 08:09 75 18 96/39 L 97 04/20/20 07:46 97.8 F 74 14 92/42 L 98 Inital Vital Signs reviewed: Yes General: Well nourished, Well developed, No Acute Distress Head: Normocephalic, - - Patient has postcraniotomy hannah in place. The surgical wound appears clean dry intact without infectious complications. Eyes: Perrl, EOMI ENT: Moist mucous membranes, No rhinorrhea Neck: Supple, Nontender Cardiovascular: Regular rate, Regular rhythm, No murmurs Respiratory: No distress, CTA bilaterally, Chest nontender Abdomen: Soft, Nontender, Nondistended, Normal bowel sounds Back: Nontender, Normal Inspection Extremities: Nontender, No edema Skin: Normal color, No rash Neurological: Alert, Oriented x3, Cranial nerves II-XII grossly intact, Normal Strength, Normal Sensation Psychological: Normal affect, Normal Mood Diagnostic/Tx/Re-eval Clinical Impression(s) from Imaging Studies Brain CT 04/20/20 08:07 IMPRESSION: 1. Status post left temporoparietal craniectomy with evacuation of the previously noted left subdural hematoma. 2. Essentially resolved shift of the midline to the right side. 3. No new bleed is seen. Electronically Signed: Thuan Lopez MD at 9:17 EDT Tel , Service support , Chest X-Ray 04/20/20 08:48 IMPRESSION: No active pulmonary disease. Electronically Signed: Thuan Lopez MD at 9:20 EDT Tel , Service support , Laboratory Last Values WBC 15.3 K/mm3 (4.4-11.0) H 04/20/20 08:20 RBC 2.44 M/mm3 (4.2-5.4) L 04/20/20 08:20 Hgb 8.0 g/dL (12.0-15.0) L 04/20/20 08:20 Hct 25.6 % (37-47) L 04/20/20 08:20 MCV 104.9 fL (81-99) H 04/20/20 08:20 MCH 32.8 pg (27.0-32.0) H 04/20/20 08:20 MCHC 31.3 g/dL (32-36) L 04/20/20 08:20 RDW Std Deviation 49.9 fl (35.1-43.9) H 04/20/20 08:20 RDW Coeff of [place] 13.2 % (11.6-14.6) 04/20/20 08:20 Plt Count 254 K/mm3 (150-450) 04/20/20 08:20 MPV 12.1 fl (6.2-12.0) H 04/20/20 08:20 Neut % (Auto) Not Reportable 04/20/20 08:20 Absolute Neuts (auto) 11.0 X10^3/uL (2.0-7.7) H 04/20/20 08:20 Absolute Lymphs (auto) 1.50 X10^3/uL (0.83-4.51) 04/20/20 08:20 Total Counted 100 (MANUAL DIFF) 04/20/20 08:20 Neutrophils % (Manual) 70 % (47-70) 04/20/20 08:20 Band Neutrophils % 2 % (0-5) 04/20/20 08:20 Lymphocytes % (Manual) 10 % (19-41) L 04/20/20 08:20 Monocytes % (Manual) 10 % (0-10) 04/20/20 08:20 Eosinophils % (Manual) 1 % (0-5) 04/20/20 08:20 Metamyelocytes % 7 % (0-1) H 04/20/20 08:20 Diff Path Review December04/20/20 08:20 Platelet Estimate ADEQUATE (ADEQ) 04/20/20 08:20 RBC Morphology N CYTIC NORMAL (NORM C&C) 04/20/20 08:20 Hypochromasia 1+ 04/20/20 08:20 PT 14.5 SECONDS (11.7-14.9) 04/20/20 08:20 INR 1.2 04/20/20 08:20 APTT 35.0 Seconds (24.1-36.2) 04/20/20 08:20 Sodium 141 mmol/L (136-145) 04/20/20 08:20 Potassium 4.1 mmol/L (3.5-5.1) 04/20/20 08:20 Chloride 110 mmol/L (98-107) H 04/20/20 08:20 Carbon Dioxide 27.0 mmol/L (21.0-32.0) 04/20/20 08:20 Anion Gap 4 (5-15) L 04/20/20 08:20 BUN 22 mg/dL (7-18) H 04/20/20 08:20 Creatinine 0.77 mg/dL (0.55-1.02) 04/20/20 08:20 Estim Creat Clear Calc 41.33 ml/min 04/20/20 08:20 Est GFR (MDRD) Af Amer 94 mL/min (>60) 04/20/20 08:20 Est GFR (MDRD) Non-Af 78 mL/min (>60) 04/20/20 08:20 BUN/Creatinine Ratio 28.7 RATIO (10-20) H 04/20/20 08:20 Glucose 99 mg/dL (74-106) 04/20/20 08:20 Lactic Acid 1.2 mmol/L (0.4-1.9) 04/20/20 08:20 Calcium 7.9 mg/dL (8.5-10.1) L 04/20/20 08:20 Total Bilirubin 0.30 mg/dL (0.20-1.00) 04/20/20 08:20 AST 17 U/L (15-37) 04/20/20 08:20 ALT 28 U/L (13-56) 04/20/20 08:20 Alkaline Phosphatase 80 U/L (45-117) 04/20/20 08:20 Troponin I < 0.015 ng/mL (<0.045) 04/20/20 08:20 Total Protein 5.4 g/dL (6.4-8.2) L 04/20/20 08:20 Albumin 2.4 g/dL (3.2-5.0) L 04/20/20 08:20 Globulin 3.0 g/dL (2.2-4.2) 04/20/20 08:20 Albumin/Globulin Ratio 0.8 RATIO (0.9-2.4) L 04/20/20 08:20 Urine Color Yellow (Yellow) 04/20/20 09:15 Urine Clarity Clear (Clear) 04/20/20 09:15 Urine pH 7.0 (5.0 - 8.0) 04/20/20 09:15 Ur Specific [place] 1.010 (1.002-1.030) 04/20/20 09:15 Urine Protein Negative mg/dl (Negative) 04/20/20 09:15 Urine Glucose (UA) Normal mg/dl (Normal) 04/20/20 09:15 Urine Ketones Negative mg/dl (Negative) 04/20/20 09:15 Urine Occult Blood 10 /ul (Negative) H 04/20/20 09:15 Urine Nitrite Positive (Negative) H 04/20/20 09:15 Urine Bilirubin Negative mg/dL (Negative) 04/20/20 09:15 Urine Urobilinogen Normal mg/dl (Normal) 04/20/20 09:15 Ur Leukocyte Esterase 25 /ul (Negative) H 04/20/20 09:15 Urine RBC 0 SEEN /hpf (0-5) 04/20/20 09:15 Urine WBC 0 SEEN /hpf (0-5) 04/20/20 09:15 Ur Squamous Epith Cells 0 SEEN /hpf (5-10) 04/20/20 09:15 Urine Bacteria 1+ /hpf (None Seen) 04/20/20 09:15 Urine Mucus 0 SEEN /hpf (<or=2+) 04/20/20 09:15 Blood Type O NEGATIVE 04/20/20 09:29 Antibody Screen NEGATIVE 04/20/20 09:29 - EKG Initial EKG Interpretation: Sinus Rhythm - EKG demonstrates a normal sinus rhythm at a rate of 74 there is no ectopy or concerning features for ACS - Medical Decision Making White count is 15 the patient is on steroids. Her hemoglobin is 8 and her discharge hemoglobin from [facility] was 8.1. Received a liter of fluids. Her blood pressure has continued to stays the same except for 1 reading of 102/42 after IV fluids. They have held her blood pressure medications over the past couple days and give her additional fluids. Her hemoglobin is yet to rebound. Speaking with the patient she agrees to receive transfusion. Plan will be observational stay as they cannot administer blood products in the TCU per nursing. ED Disposition - Plan for ED Patient: Disposition: Acute Care Hospital [facility] Diagnosis: Anemia, Hypotension, S/P craniotomy Referrals: Augusta Wilson DO [Primary Care Provider] -
[2020-04-20] MEDS: 0.9% Normal Saline 1,000 ML 999 ML IV (08:25)
--- NOTE | 2020-04-20 08:28 | ED.RN ---
botello clamped, to obtain urine/
[2020-04-20 08:30] LABS: Hematocrit 25.6 % (37-47); Mean Corp Hgb Conc 31.3 g/dL (32-36); Mean Corpuscular Hgb 32.8 pg (27.0-32.0); Mean Corpuscular Volume 104.9 fL (81-99); Mean Platelet Vol. 12.1 fl (6.2-12.0); POSITIVE COUNT YES; POSITIVE DIFFERENTIAL YES; POSITIVE MORPHOLOGY YES; Platelet Count 254 K/mm3 (150-450); RBC Distribution Width CV 13.2 % (11.6-14.6); RBC Distribution Width SD 49.9 fl (35.1-43.9); Red Blood Count 2.44 M/mm3 (4.2-5.4); White Blood Count 15.3 K/mm3 (4.4-11.0)
[2020-04-20 08:33] LABS: Differential Indicated MANUAL DIFF
[2020-04-20 08:37] LABS: International Normalized Ratio 1.2; Prothrombin Time (Protime)PT. 14.5 SECONDS (11.7-14.9)
--- NOTE | 2020-04-20 08:48 | RAD_ITS ---
STUDY: X-RAY CHEST REASON FOR EXAM: Female, 75 years old. Hypertension and headache. TECHNIQUE: Single AP portable view of the chest. COMPARISON: 04/09/2020 FINDINGS: Minimal linear density in the left midlung zone probably due to scarring. No new infiltrate is seen. There is no demonstrated pleural abnormality. Normal size heart. Normal mediastinum and shashi. Normal visualized pulmonary arteries. There is atherosclerotic tortuosity of the aortic arch and descending thoracic aorta. Normal visualized thoracic spine. Normal visualized ribs, clavicles, and shoulders. There is no demonstrated abnormality of the visualized soft tissue structures of the upper abdomen. RAD/Chest 1 View (Portable) IMPRESSION: No active pulmonary disease. Electronically Signed: Thuan Lopez MD at 9:20 EDT Tel , Service support ,
[2020-04-20 08:51] LABS: ALB/GLOB Ratio 0.8 RATIO (0.9-2.4); AST(SGOT) 17 U/L (15-37); Alanine Aminotransfer ALT/SGPT 28 U/L (13-56); Albumin, Serum 2.4 g/dL (3.2-5.0); Alkaline Phosphatase 80 U/L (45-117); Anion Gap 4 (5-15); BUN 22 mg/dL (7-18); BUN/Creat Ratio 28.7 RATIO (10-20); Calcium,Total 7.9 mg/dL (8.5-10.1); Chloride 110 mmol/L (98-107); Creatinine, Serum 0.77 mg/dL (0.55-1.02); EST Glomerular Filtration Rate 78 mL/min (>60); Est Glom Filt Rate - Afr Amer 94 mL/min (>60); Estimated Creatinine Clearance 41.33 ml/min; Glucose 99 mg/dL (74-106); Potassium 4.1 mmol/L (3.5-5.1); Protein, Total 5.4 g/dL (6.4-8.2); Sodium Level 141 mmol/L (136-145)
[2020-04-20 08:59] LABS: Lactic Acid 1.2 mmol/L (0.4-1.9)
[2020-04-20] MEDS: Acetaminophen 500 MG Tablet 1000 MG PO (09:11)
[2020-04-20 09:21] LABS: Mucous, Urine 0 SEEN /hpf (<or=2+); Red Blood Cells-Urine 0 SEEN /hpf (0-5); Squamous Epithelial Cells - UA 0 SEEN /hpf (5-10); White Blood Cells 0 SEEN /hpf (0-5)
[2020-04-20 09:42] LABS: Eosinophil 1 % (0-5); Hypochromasia 1+; Lymphocyte 10 % (19-41); Metamyelocyte 7 % (0-1); Monocyte 10 % (0-10); Neutrophil-Band 2 % (0-5); Neutrophil-Segmented 70 % (47-70); Platelet Estimate ADEQUATE (ADEQ); Red Cell Morphology N CYTIC NORMAL (NORM C&C); Total Cells Counted 100 (MANUAL DIFF)
[2020-04-20 09:49] LABS: Color, Urine Yellow (Yellow); Glucose, Dipstick Normal (Normal); Ketone-Dipstick Negative (Negative); Leukocyte Esterase-Dipstick 25 /ul (Negative); Nitrite-Dipstick Positive (Negative); Occult Blood-Urine 10 /ul (Negative); Protein-Dipstick Negative (Negative); Urine Bilirubin Dipstick Negative (Negative); Urine Clarity Clear (Clear); Urine Urobilinogen Normal (Normal)
[2020-04-20 09:54] LABS: Bacteria 1+ /hpf (None Seen)
--- NOTE | 2020-04-20 10:47 | HP.PCM_ITS ---
History of Present Illness Date of Admission: 04/20/20 Chief Complaint: hypotension The patient is a 75 year old F with an extensive past medical history as outlined was admitted through the ED from the transitional care unit on 04/20/2020 on account of hypotension. Patient was seen about a week prior to this admission at [facility] and found to have subdural hematoma and transferred to [facility] where she had an evacuation of the subdural hematoma and craniotomy. She was subsequently sent to the TCU. She was noted to have hypotension for about 1 day and she was given fluids IV. She was asymptomatic. HEr BP meds sere also stopped. However, patient was still noted to be having low blood pressure though asymptomatic. She was therefore brought in to the ED. She was seen and had no complaints at time I reviewed it. She denied any headache, blurred vision, nausea vomiting, chest pain, abdominal pain, diarrhea vomiting. Review of systems otherwise negative. On admission in the ED, at time of review, blood pressure was 94/53 with temperature of 98.1, pulse rate of 75 respiratory rate of 18. Chemistry is unremarkable. Initial troponin was negative. CBC showed hemoglobin of 8 with WBC of 15.3 and platelets of 254. CT of the brain showed status post left temporoparietal craniectomy with evacuation of the previously noted left subdural hematoma with essentially resolved shift of the midline to the right side and no new bleed visualized. She has been admitted to be managed for hypotension likely medication induced and anemia which is likely due to subdural hematoma which is resolved. [] Past Medical History Past Medical History (Chronic Problems): Chronic Problems (Last Reviewed 04/03/20 @ 11:33 by Anika Choudhary) Seizure disorder (Chronic) Stroke (Chronic) HLD (hyperlipidemia) (Chronic) Anxiety and depression (Chronic) Essential tremor (Chronic) Low back pain (Chronic) Vascular dementia (Chronic) Hypertension (Chronic) Neuropathic pain (Chronic) Left hemiparesis (Chronic) Anxiety (Chronic) Chronic indwelling Bentley catheter (Chronic) Chronic anticoagulation (Chronic) on therapeutic Lovenox Cauda equina syndrome (Chronic) Myelodysplasia (myelodysplastic syndrome) (Chronic) Depression (Chronic) Cerebrovascular disease (Chronic) MDS (myelodysplastic syndrome), low grade (Chronic) Myeloma (Chronic) Lung nodule (Chronic) Left upper lobe, May 2018 Liver lesion, right lobe (Chronic) Negative biopsy for malignancy June 29, 2018 Anemia (Chronic) Cognitive dysfunction (Chronic) Meningioma (Chronic) Medical History: Medical History (Last Reviewed 04/03/20 @ 11:33 by Anika Choudhary) Cellulitis L03.90 left eye Meningioma D32.9 Gamma knife at [facility] ~2000 Osteopenia M85.80 Stroke I63.9 X2 - HOSPITALIZATION FOR 5 DAYS Allergies sulfamethoxazole [From Bactrim] Allergy (Severe, Verified 04/20/20 07:46) Other SEIZUERE, LOSS OF MOVEMENT IN LEGS trimethoprim [From Bactrim] Allergy (Severe, Verified 04/20/20 07:46) Other SEIZURE LOSS OF MOVEMENT IN LEGS indomethacin Allergy (Verified 04/20/20 07:46) NEEDS FOLLOW-UP pneumococcal vaccine Allergy (Verified 04/20/20 07:46) NEEDS FOLLOW-UP morphine Adverse Reaction (Severe, Verified 04/20/20 07:46) Nausea Home Medications: Ambulatory Orders Medication Instructions Recorded Atorvastatin Calcium [Lipitor] 80 mg PO QHS #30 tab 09/10/19 Gabapentin 100 mg PO BID 09/22/19 Tamsulosin HCl [Flomax] 0.4 mg PO DAILY@1730 09/26/19 buPROPion SR [Wellbutrin SR (150mg 150 mg PO BID 09/26/19 tablets)] Dexamethasone [Decadron] 40 mg PO WE 12/13/19 Cholecalciferol (Vitamin D3) 1,250 mcg PO DAILY 02/07/20 [D3-50] Meclizine HCl [Antivert] 25 mg PO Q8H PRN #16 tab 02/07/20 Pantoprazole Sodium [Protonix] 40 mg PO DAILY 02/07/20 Acetaminophen [Tylenol] 650 mg PO Q4H PRN PRN 04/17/20 Atenolol 25 mg PO DAILY 04/17/20 Calcium Carbonate [Elemental 1,200 mg PO DAILY 04/17/20 Calcium] Diazepam 2 - 4 mg PO Q8H PRN PRN 04/17/20 Enoxaparin Sodium [Lovenox] 40 mg SQ DAILY 04/17/20 Escitalopram Oxalate 10 mg PO DAILY 04/17/20 Furosemide 40 mg PO DAILY 04/17/20 Levetiracetam 1,000 mg PO Q12H 04/17/20 Mirabegron [Myrbetriq] 25 mg PO DAILY 04/17/20 Multivitamin with Minerals 1 ea PO DAILY 04/17/20 [Multivitamins with Minerals] Oxycodone HCl/Acetaminophen 1 ea PO Q8H PRN PRN 04/17/20 [Percocet 5-325 mg Tablet] Surgical History: Surgical History (Last Reviewed 04/03/20 @ 11:33 by Anika Choudhary) History of cholecystectomy Z90.49 History of hysterectomy Z90.710 Surgical History: cholecystectomy, hysterectomy, tonsillectomy, - - Gamma knife meningioma. Surgery to evacuate a very large Lumbar hematoma causing cauda equina S. Left subdural hematoma craniectomy/craniotomy. 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 Paternal Family History: Family History (Last Reviewed 04/03/20 @ 11:33 by Anika Choudhary) Mother Breast cancer Sister Breast cancer Aunt Breast cancer Daughter History of malignant melanoma Father Brain cancer Brother Lung cancer History Items: Cancer - Father with history of brain cancer. Review of Systems Constitutional: Denies: Chills, Fever, Malaise, Weakness, Weight Change Eyes: Denies: Blurred vision HEENT: Denies: Head Aches, Sinus Congestion, Sinus Drainage Cardiovascular: Denies: Chest Pain, Chest Pressure, Chest Tightness, Light Headedness, Palpitations, Syncope Respiratory: Denies: Cough, Shortness of Breath, Shortness of breath at rest, Shortness of breath upon exertion, Sputum production Gastrointestinal: Denies: Abdominal Pain, Nausea, Vomiting Genitourinary: Denies: Dysuria Musculoskeletal: Denies: Joint Pain, Joint Tenderness Skin: Denies: Rash, Wounds Neurological: Denies: Numbness, Tingling, Focal weakness Psychiatric: Denies: Anxiety, Depression, Homicidal Ideations, Suicidal Ideations Hematologic/ Lymphatic: Denies: Easy Bruising, Easy Bleeding VTE Information - Inpt Only VTE Present on Admission: No VTE Mechan Device Prophylaxis: SCD's Patient Problems: Active and Suspected Problems (Last Reviewed 04/03/20 @ 11:33 by Anika Choudhary) Debility (Acute) Encephalopathy (Acute) Multiple falls (Acute) Subdural hematoma (Acute) Hypotension (Acute) S/P craniotomy (Acute) - Physical Exam Vitals/I&O's: Vital Signs Temp Pulse Resp BP Pulse Ox 97.8 F 71 16 102/42 L 96 04/20/20 07:46 04/20/20 10:16 04/20/20 10:16 04/20/20 10:16 04/20/20 10:16 Oxygen Delivery Method Room Air Weight: 145 lb 4.554 oz Body Mass Index (BMI) 24.9 Finger Stick Blood Glucose 106 General: Alert, Oriented x3, Cooperative, No apparent distress HEENT: Atraumatic, PERRLA, EOMI, Normocephalic, - - left craniotomy hannah in place. Oral: Moist Mucosa Neck: Supple, No JVD, Negative Carotid Bruits Lungs: Clear to auscultation, Normal air movement, No rhonchi, No wheeze, No rales Cardiovascular: Regular rate, Regular Rhythm, Normal S1, Normal S2, No murmurs Abdomen: Bowel Sounds Present, Soft, Non Tender, Non-Distended, No Hepato- splenomegaly Extremities: No clubbing, No cyanosis, No edema, Capillary Refill Less than 3 Seconds Skin: No rashes, No breakdown Musculoskeletal: No Tenderness to Palpation of Joints or Extremities Lymphatic: No Cervical, Supraclavicular, or Inguinal Adenopathy Neurological: Cranial nerves II-XII grossly intact, Neuro grossly intact, Motor Exam 5/5 strength throughout, - - left craniotomy scar Psych/Mental Status: Normal Affect, Appropriate, Alert and oriented to time, place, person, mood and affect Laboratory Results 04/20/20 08:20: WBC 15.3 H, RBC 2.44 L, Hgb 8.0 L, Hct 25.6 L, MCV 104.9 H, MCH 32.8 H, MCHC 31.3 L, RDW Std Deviation 49.9 H, RDW Coeff of [place] 13.2, Plt Count 254, MPV 12.1 H, Neut % (Auto) Not Reportable, Absolute Neuts (auto) 11.0 H, Absolute Lymphs (auto) 1.50, Total Counted 100, Neutrophils % (Manual) 70, Band Neutrophils % 2, Lymphocytes % (Manual) 10 L, Monocytes % (Manual) 10, Eosinophils % (Manual) 1, Metamyelocytes % 7 H, Diff Path Review December, Platelet Estimate ADEQUATE, RBC Morphology N CYTIC, Hypochromasia 1+ 04/20/20 08:20: PT 14.5, INR 1.2, APTT 35.0 04/20/20 08:20: Sodium 141, Potassium 4.1, Chloride 110 H, Carbon Dioxide 27.0, Anion Gap 4 L, BUN 22 H, Creatinine 0.77, Estim Creat Clear Calc 41.33, Est GFR (MDRD) Af Amer 94, Est GFR (MDRD) Non-Af 78, BUN/Creatinine Ratio 28.7 H, Glucose 99, Calcium 7.9 L, Total Bilirubin 0.30, AST 17, ALT 28, Alkaline Phosphatase 80, Troponin I < 0.015, Total Protein 5.4 L, Albumin 2.4 L, Globulin 3.0, Albumin/Globulin Ratio 0.8 L 04/20/20 08:20: Lactic Acid 1.2 04/20/20 09:15: Urine Color Yellow, Urine Clarity Clear, Urine pH 7.0, Ur Specific [place] 1.010, Urine Protein Negative, Urine Glucose (UA) Normal, Urine Ketones Negative, Urine Occult Blood 10 H, Urine Nitrite Positive H, Urine Bilirubin Negative, Urine Urobilinogen Normal, Ur Leukocyte Esterase 25 H, Urine RBC 0 SEEN, Urine WBC 0 SEEN, Ur Squamous Epith Cells 0 SEEN, Urine Bacteria 1+, Urine Mucus 0 SEEN 04/20/20 09:29: Blood Type O NEGATIVE, Antibody Screen NEGATIVE Diagnostic Data Brain CT 04/20/20 08:07 IMPRESSION: 1. Status post left temporoparietal craniectomy with evacuation of the previously noted left subdural hematoma. 2. Essentially resolved shift of the midline to the right side. 3. No new bleed is seen. Electronically Signed: Thuan Lopez MD at 9:17 EDT Tel , Service support , Chest X-Ray 04/20/20 08:48 IMPRESSION: No active pulmonary disease. Electronically Signed: Thuan Lopez MD at 9:20 EDT Tel , Service support , Assessment/Plan All Active Problems (Last Reviewed 04/03/20 @ 11:33 by Anika Choudhary) Debility (Acute) Encephalopathy (Acute) Multiple falls (Acute) Subdural hematoma (Acute) Hypotension (Acute) S/P craniotomy (Acute) 75 y/o admitted with a complaint of hypotension # Hypotension * likely medication induced * says her BP usually runs in conor 120s systolic. * On atenolol and furosemide at home. We will hold these. * Hydrate with IV fluid normal saline 150 cc/h. Check orthostatics. * Fall precautions. * #Anemia * HemoGlobin today is 8. Likely due to acute blood loss from subdural hematoma about a week ago. * Hemoglobin earlier today was 7.3. Hemoglobin was 13.6 on 04/09/2020, prior to before she had the subdural hematoma which required transfer to [facility] for surgery to be done. * CT of the brain today was negative for any evidence of new bleed. * Will check iron panel and put on oral iron supplementation. To transfuse if hemoglobin drops to less than 7. * #History of subdural hematoma * As under anemia. * CT of the brain showed status post left temporoparietal craniectomy with evacuation of the previously noted left subdural hematoma and no new bleed seen. * will monitor for now * #. history of multiple myeloma; stable. Continue to follow with Dr Christian on outpatient basis #Hypertension: hold atenolol and furosemide # Seizrue disorder:due to brain surgery. On keppra DVT prophylaxis; SCDs. No anticoagulation o/a of recent history of brain bleed. Code status: full code * Patient counseled extensively about different types of CODE STATUS including full code, DNR CCA and DNR CCA. Patient elects to be full code. * Total [id number] time 16 minutes. OBSV E&M: 88710 Initial observation care L3 Procedures: 53379 Advncd Care Plan 30 Min
[2020-04-20] MEDS: 0.9% Normal Saline 1,000 ML 150 ML IV ×2 (12:27→17:49)
[2020-04-20] MEDS: 0.9% Saline Lock 10 ML Syringe IV (12:27)
[2020-04-20] MEDS: Polyethylene Glycol 3350 17 GM PACKET PO (15:00)
[2020-04-20] MEDS: Gabapentin 100 MG Capsule PO (16:05)
[2020-04-20] MEDS: Acetaminophen 325 MG Tablet 650 MG PO (22:03)
[2020-04-20] MEDS: levETIRAcetam 1,000 MG Tablet 1000 MG PO (22:03)
[2020-04-20] MEDS: Atorvastatin Calcium 80 MG Tablet PO (22:03)
[2020-04-20] MEDS: buPROPion (SR) 150 MG Tablet.SA PO (22:03)
[2020-04-21] VITALS (17 sets, daily range): BP systolic 103–159; BP diastolic 40–66; PULSE 71–83; RESP 16–18; TEMP 36.3–37; O2SAT 95–98
[2020-04-21] MEDS: Acetaminophen 325 MG Tablet 650 MG PO ×3 (03:00→17:20)
[2020-04-21 05:35] LABS: Hematocrit 23.6 % (37-47); Hemoglobin 7.2 g/dL (12.0-15.0); Mean Corp Hgb Conc 30.5 g/dL (32-36); Mean Corpuscular Volume 104.9 fL (81-99); Mean Platelet Vol. 11.5 fl (6.2-12.0); POSITIVE COUNT YES; POSITIVE DIFFERENTIAL YES; POSITIVE MORPHOLOGY YES; Platelet Count 294 K/mm3 (150-450); RBC Distribution Width CV 12.9 % (11.6-14.6); RBC Distribution Width SD 47.8 fl (35.1-43.9); Red Blood Count 2.25 M/mm3 (4.2-5.4); White Blood Count 13.6 K/mm3 (4.4-11.0)
[2020-04-21 05:40] LABS: Differential Indicated MANUAL DIFF
[2020-04-21 06:04] LABS: Anion Gap 4 (5-15); BUN 19 mg/dL (7-18); BUN/Creat Ratio 24.1 RATIO (10-20); Calcium,Total 7.9 mg/dL (8.5-10.1); Chloride 114 mmol/L (98-107); Creatinine, Serum 0.79 mg/dL (0.55-1.02); EST Glomerular Filtration Rate 75 mL/min (>60); Est Glom Filt Rate - Afr Amer 91 mL/min (>60); Estimated Creatinine Clearance 41.33 ml/min; Glucose 97 mg/dL (74-106); Potassium 4.2 mmol/L (3.5-5.1); Sodium Level 143 mmol/L (136-145)
[2020-04-21 06:14] LABS: Eosinophil 4 % (0-5); Lymphocyte 9 % (19-41); Metamyelocyte 2 % (0-1); Monocyte 21 % (0-10); Myelocyte 1 (0-0); Neutrophil-Band 1 % (0-5); Neutrophil-Segmented 62 % (47-70); Total Cells Counted 100 (MANUAL DIFF)
[2020-04-21 06:15] LABS: Hypochromasia 1+; Macrocytosis 3+; Platelet Estimate ADEQUATE (ADEQ); Red Cell Morphology N CHROM NORMAL (NORM C&C)
[2020-04-21 06:16] LABS: Absolute Neutrophil Count 8.6 X10^3/uL (2.0-7.7); Neutrophil # 8.56 X10^3/uL (2.7-7.7)
[2020-04-21 06:17] LABS: Absolute Lymphocyte Count 1.22 X10^3/uL (0.83-4.51); Lymphocyte # 1.22 X10^3/ul (4.0)
[2020-04-21] MEDS: Calcium Carbonate 500 MG Tablet 1000 MG PO (07:55)
[2020-04-21] MEDS: Gabapentin 100 MG Capsule PO ×2 (07:55→17:21)
[2020-04-21] MEDS: Multivitamins,Ther W-Minerals Tablet 1 TABLET PO (07:55)
[2020-04-21 08:29] LABS: Ferritin 33 ng/mL (8-252); Iron 16 ug/dL (50-170); Iron Binding Capacity,Total 343 ug/dL (250-450); PERCENT IRON SATURATION 4.7 % (15.0-55.0)
[2020-04-21] MEDS: levETIRAcetam 1,000 MG Tablet 1000 MG PO ×2 (09:41→21:07)
[2020-04-21] MEDS: Pantoprazole Sodium 40 MG Tablet PO (09:41)
[2020-04-21] MEDS: Escitalopram Oxalate 10 MG Tablet PO (09:41)
[2020-04-21] MEDS: Mirabegron 25 MG TAB.ER.24H PO (09:41)
[2020-04-21] MEDS: buPROPion (SR) 150 MG Tablet.SA PO ×2 (09:41→21:08)
--- NOTE | 2020-04-21 11:01 | PN_ITS ---
Patient Problems: Active and Suspected Problems (Last Reviewed 04/03/20 @ 11:33 by Anika Choudhary) Hypotension (Acute) S/P craniotomy (Acute) Subjective: Patient seen and examined. She had no complaints and had an uneventful night. Review of signs otherwise negative. Hemoglobin has dropped to 7.2 today. Vitals/I&O's: Vital Signs Temp Pulse Resp BP Pulse Ox 97.9 F 71 18 129/57 H 98 04/21/20 09:35 04/21/20 09:35 04/21/20 09:35 04/21/20 09:35 04/21/20 09:35 Oxygen Delivery Method Room Air Weight: 131 lb 8 oz Body Mass Index (BMI) 22.6 Finger Stick Blood Glucose 106 Orthostatic Vital Signs Start: 04/21/20 03:46 Freq: q24h Status: Active Protocol: Activity Type Activity Date Activity User E-Sign Co-Sign Detail Recorded Client Recorded Date Recorded By Document 04/21/20 03:46 AML [id number] 04/21/20 03:47 AML 04/21/20 03:46 Orthostatic Vitals Standing -Blood Pressure (90/60-120/80) 127/45 H -Extremity Use Left Arm -Pulse Rate (60-100) 83 Sitting -Blood Pressure (90/60-120/80) 110/40 L -Extremity Use Left Arm -Pulse Rate (60-100) 76 Lying -Blood Pressure (90/60-120/80) 104/40 L -Extremity Use Left Arm -Pulse Rate (60-100) 79 Intake and Output for Last 24 Hours 04/19/20 04/20/20 04/21/20 23:59 23:59 23:59 Intake Total 2045 / 2145 1085 / 1085 Output Total 1250 / 2250 1974 Balance 795 / -105 -890 / -890 General: Alert, Oriented x3, Cooperative, No apparent distress HEENT: Atraumatic, PERRLA, EOMI, Normocephalic, - - left craniotomy hannah in place. Oral: Moist Mucosa Neck: Supple, No JVD, Negative Carotid Bruits Lungs: Clear to auscultation, Normal air movement, No rhonchi, No wheeze, No rales Cardiovascular: Regular rate, Regular Rhythm, Normal S1, Normal S2, No murmurs Abdomen: Bowel Sounds Present, Soft, Non Tender, Non-Distended, No Hepato- splenomegaly Extremities: No clubbing, No cyanosis, No edema, Capillary Refill Less than 3 Seconds Skin: No rashes, No breakdown Musculoskeletal: No Tenderness to Palpation of Joints or Extremities Lymphatic: No Cervical, Supraclavicular, or Inguinal Adenopathy Neurological: Cranial nerves II-XII grossly intact, Neuro grossly intact, Motor Exam 5/5 strength throughout, - - left craniotomy scar Psych/Mental Status: Normal Affect, Appropriate, Alert and oriented to time, place, person, mood and affect Laboratory Results 04/20/20 09:29: Crossmatch See Detail 04/20/20 12:35: Troponin I < 0.015 04/20/20 15:10: Troponin I < 0.015 04/20/20 18:30: Troponin I < 0.015 04/21/20 05:00: WBC 13.6 H, RBC 2.25 L, Hgb 7.2 L, Hct 23.6 L, MCV 104.9 H, MCH 32.0, MCHC 30.5 L, RDW Std Deviation 47.8 H, RDW Coeff of Moriah 12.9, Plt Count 294, MPV 11.5, Neut % (Auto) Not Reportable, Absolute Neuts (auto) 8.6 H, Absolute Lymphs (auto) 1.22, Total Counted 100, Neutrophils % (Manual) 62, Band Neutrophils % 1, Lymphocytes % (Manual) 9 L, Monocytes % (Manual) 21 H, Eosinophils % (Manual) 4, Metamyelocytes % 2 H, Myelocytes % 1 H, Diff Path Review May foll, Platelet Estimate ADEQUATE, RBC Morphology N CHROM, Hypochromasia 1+, Macrocytosis 3+ 04/21/20 05:00: Sodium 143, Potassium 4.2, Chloride 114 H, Carbon Dioxide 25.0, Anion Gap 4 L, BUN 19 H, Creatinine 0.79, Estim Creat Clear Calc 41.33, Est GFR (MDRD) Af Amer 91, Est GFR (MDRD) Non-Af 75, BUN/Creatinine Ratio 24.1 H, Glucose 97, Calcium 7.9 L 04/21/20 05:00: Iron 16 L, TIBC 343, Iron Saturation 4.7 L, Ferritin [address] 04/20/20 08:07 IMPRESSION: 1. Status post left temporoparietal craniectomy with evacuation of the previously noted left subdural hematoma. 2. Essentially resolved shift of the midline to the right side. 3. No new bleed is seen. Electronically Signed: Thuan Lopez MD at 9:17 EDT Tel , Service support , Chest X-Ray 04/20/20 08:48 IMPRESSION: No active pulmonary disease. Electronically Signed: Thuan Lopez MD at 9:20 EDT Tel , Service support , Current Medications Acetaminophen (Tylenol) 650 mg PO Q4H PRN PRN PRN Reason: Pain or Fever Last Admin: 04/21/20 08:26 Dose: 650 mg Documented by: Atorvastatin Calcium (Lipitor) 80 mg PO QHS [facility] Last Admin: 04/20/20 22:03 Dose: 80 mg Documented by: Bupropion HCl (Wellbutrin Sr (150mg Tablets)) 150 mg PO BID [facility] Last Admin: 04/21/20 09:41 Dose: 150 mg Documented by: [facility] Last Admin: 04/21/20 07:55 Dose: 1,000 mg Documented by: Diazepam (Valium) 2 mg PO Q8H PRN PRN PRN Reason: Vertigo Escitalopram Oxalate (Lexapro) 10 mg PO DAILY [facility] Last Admin: 04/21/20 09:41 Dose: 10 mg Documented by: Gabap[facility]in) [facility] Last Admin: 04/21/20 07:55 Dose: 100 mg Documented by: Sodium Chloride () 500 mls @ 15 mls/hr IV PRN PRN PRN Reason: Blood Transfusion Sodium Chloride () 250 mls @ 15 mls/hr IV .[id number] PRN PRN Reason: Saline Flush Sodium Chloride () 250 mls @ 15 mls/hr IV .[id number] PRN PRN Reason: Additional IVPB Infusion Levetiracetam (Keppra Tablet) 1,000 mg PO Q12H [facility] Stop: 05/02/20 22:01 Last Admin: 04/21/20 09:41 Dose: 1,000 mg Documented by: Meclizine HCl (Antivert) 25 mg PO Q8H PRN PRN Reason: DIZZINESS Mirabegron (Myrbetriq) 25 mg PO DAILY [facility] Last Admin: 04/21/20 09:41 Dose: 25 mg Documented by: Multivitamins/Minerals (Multivitamin With Minerals (Bkc)) 1 tablet PO DAILY@0800 [facility] Last Admin: 04/21/20 07:55 Dose: 1 tablet Documented by: Nitroglycerin (Nitrostat) 0.4 mg SUBLINGUAL Q5M PRN PRN Reason: CARDIAC/CHEST PAIN Ondansetron HCl (Zofran) 4 mg IV Q8H PRN PRN PRN Reason: NAUSEA/VOMITING Pantoprazole Sodium (Protonix) 40 mg PO DAILY [facility] Last Admin: 04/21/20 09:41 Dose: 40 mg Documented by: Polyethylene Glycol (Miralax) 17 gm PO DAILY PRN PRN Reason: Constipation Last Admin: 04/20/20 15:00 Dose: 17 gm Documented by: Sodium Chloride () 10 - 40 ml IV UD PRN PRN Reason: SALINE FLUSH Last Admin: 04/20/20 12:27 Dose: 10 ml Documented by: STROKE Vital Signs/Narrative: Vital Signs Temp Pulse Resp BP Pulse Ox 04/21/20 09:35 97.9 F 71 18 129/57 H 98 Medical Necessity - Tobacco Use Smoking Status: Never smoker Assessment/Plan All Active Problems (Last Reviewed 04/03/20 @ 11:33 by Anika Choudhary) Debility (Acute) Encephalopathy (Acute) Multiple falls (Acute) Subdural hematoma (Acute) Hypotension (Acute) S/P craniotomy (Acute) # Hypotension * likely medication induced * orthostatics are positive * atenolol adn furosemide on hold * being hydrated with IVF NS * fall precautions * #Anemia * Globin today is dropped to 7.2. Likely related to the acute blood loss from the subdural hematoma. * Will transfuse with 2 units of packed red blood cells today. * Iron panel showed iron of 16 with TIBC of 343 and iron saturation of 4.7 as well as ferritin of 33. * Will also start on iron supplementation orally. * * #History of subdural hematoma * As under anemia. * CT of the brain showed status post left temporoparietal craniectomy with evacuation of the previously noted left subdural hematoma and no new bleed seen. * will monitor for now * #. history of multiple myeloma; stable. Continue to follow with Dr Christian on outpatient basis #Hypertension: hold atenolol and furosemide # Seizrue disorder:due to brain surgery. On keppra DVT prophylaxis; SCDs. No anticoagulation o/a of recent history of brain bleed. Code status: full code * OBSV E&M: 38940 Subsequent observation care L3
[2020-04-21] MEDS: Ferrous Sulfate 325 MG Tablet PO ×2 (11:59→17:21)
[2020-04-21] MEDS: oxyCODONE 5 MG Tablet PO (21:07)
[2020-04-21] MEDS: Atorvastatin Calcium 80 MG Tablet PO (21:08)
[2020-04-22 02:52] VITALS: PULSE 75
[2020-04-22] MEDS: 0.9% Saline Lock 10 ML Syringe IV (03:11)
[2020-04-22 03:20] VITALS: BP 115/45; PULSE 74; RESP 18; TEMP 36.8; O2SAT 97
--- NOTE | 2020-04-22 03:20 | NURSING ---
PATIENT WANTED TO GO BACK TO SLEEP AND DIDN'T WANT RN TO PERFORM ORTHOSTATIC BP AT THIS TIME.
[2020-04-22 05:38] LABS: Hemoglobin 10.8 g/dL (12.0-15.0); Mean Corp Hgb Conc 32.7 g/dL (32-36); Mean Corpuscular Hgb 32.3 pg (27.0-32.0); Mean Corpuscular Volume 98.8 fL (81-99); Mean Platelet Vol. 11.6 fl (6.2-12.0); POSITIVE COUNT YES; POSITIVE DIFFERENTIAL YES; POSITIVE MORPHOLOGY YES; Platelet Count 298 K/mm3 (150-450); RBC Distribution Width SD 50.8 fl (35.1-43.9); Red Blood Count 3.34 M/mm3 (4.2-5.4); White Blood Count 13.7 K/mm3 (4.4-11.0)
[2020-04-22 05:53] LABS: Anion Gap 4 (5-15); BUN 14 mg/dL (7-18); BUN/Creat Ratio 17.4 RATIO (10-20); Calcium,Total 8.3 mg/dL (8.5-10.1); Chloride 110 mmol/L (98-107); EST Glomerular Filtration Rate 74 mL/min (>60); Est Glom Filt Rate - Afr Amer 89 mL/min (>60); Estimated Creatinine Clearance 51.66 ml/min; Glucose 87 mg/dL (74-106); Potassium 3.9 mmol/L (3.5-5.1); Sodium Level 140 mmol/L (136-145)
[2020-04-22 06:00] LABS: Differential Indicated MANUAL DIFF
[2020-04-22 06:49] LABS: Absolute Neutrophil Count 9.6 X10^3/uL (2.0-7.7); Eosinophil 4 % (0-5); Lymphocyte 16 % (19-41); Metamyelocyte 2 % (0-1); Monocyte 10 % (0-10); Neutrophil # 9.59 X10^3/uL (2.7-7.7); Neutrophil-Band 10 % (0-5); Neutrophil-Segmented 60 % (47-70); Total Cells Counted 100 (MANUAL DIFF)
[2020-04-22 06:50] LABS: Absolute Lymphocyte Count 2.19 X10^3/uL (0.83-4.51); Lymphocyte # 2.19 X10^3/ul (4.0); Platelet Estimate ADEQUATE (ADEQ); Red Cell Morphology NORM C+C NORMAL (NORM C&C)
[2020-04-22 07:13] VITALS: PULSE 75
[2020-04-22 08:14] VITALS: BP 126/53; PULSE 77; RESP 16; TEMP 36.8; O2SAT 95
[2020-04-22] MEDS: Gabapentin 100 MG Capsule PO (08:24)
[2020-04-22] MEDS: levETIRAcetam 1,000 MG Tablet 1000 MG PO (08:24)
[2020-04-22] MEDS: Calcium Carbonate 500 MG Tablet 1000 MG PO (08:24)
[2020-04-22] MEDS: Mirabegron 25 MG TAB.ER.24H PO (08:24)
[2020-04-22] MEDS: Pantoprazole Sodium 40 MG Tablet PO (08:24)
[2020-04-22] MEDS: buPROPion (SR) 150 MG Tablet.SA PO (08:24)
[2020-04-22] MEDS: Multivitamins,Ther W-Minerals Tablet 1 TABLET PO (08:25)
[2020-04-22] MEDS: Escitalopram Oxalate 10 MG Tablet PO (08:25)
--- NOTE | 2020-04-22 08:35 | CASEMGMT ---
Addendum entered by Silvina Guadalupe 04/22/20 10:32: Pt is ready for discharge back to TCU today. SW spoke w/pt, agreeable to return to TCU. SW offered to call family, she asked for SW to call . SW called , let him know pt will return to TCU today. SW faxed med list to TCU, let Arlin in TCU know that pt can return today. No further needs anticipated. HERIBERTO Frias Original Note: CHELA called TCU, pt can return when medically ready. A COVID test will not be needed to return to TCU. CHELA will continue to follow. HERIBERTO Frias
[2020-04-22] MEDS: Ferrous Sulfate 325 MG Tablet PO (12:40)
[2020-04-22 12:56] LABS: Pathologist Review Reviewed
[2020-04-22 12:56] LABS: Pathologist Review Reviewed
--- NOTE | 2020-04-22 12:56 | CASEMGMT ---
NAYAN CM Readmission note Previous Admission: 04/09-04/17/2020- [facility] Diagnosis: L Subdural Hemorrhage DC Disposition: [facility] TCU Current Admission: 04/21/20 Diagnosis: Hypotention Pt was in TCU, presented with hypotension. Had recent surgery @ [facility] for subdural hematoma, then to TCU for rehab/recovery. Pt was on atenolol and furosemide. These medications will be held. IVF @ 150 ml/hr. DC PLAN: return to TCU when medically stable. Nic STRANGE RN ACM
[2020-04-22 12:57] LABS: Pathologist Review Reviewed
[2020-04-22] MEDS: Acetaminophen 325 MG Tablet 650 MG PO (13:12)
[2020-04-22 14:10] VITALS: BP 116/57; PULSE 76; RESP 16; TEMP 36.1; O2SAT 99
--- NOTE | 2020-04-22 14:26 | PCM.TXEXTCAR ---
- Diet 04/20/20 12:14 Diet: Cardiac - Heart Healthy Food consistency:: Regular Liquid Consistency:: Regular/Thin Is pt able to select menu?: Yes - Routine Orders/Code Status Enema Type: Fleetz Enema Frequency: Daily PRN Suppository Type: Dulcolax 10mg Suppository Frequency: Daily PRN Routine Lab Work: CBC Code Status: Full Code - Wound(s) Head Wound Type: Surgical Incision - Therapies Weight Bearing: Weight bearing as tolerated Physical Therapy: Eval and Treat Occupational Therapy: Eval and Treat - Allergies/Procedures Done in Hospital Allergies/Adverse Reactions: Allergies sulfamethoxazole [From Bactrim] Allergy (Severe, Verified 04/20/20 07:46) Other SEIZUERE, LOSS OF MOVEMENT IN LEGS trimethoprim [From Bactrim] Allergy (Severe, Verified 04/20/20 07:46) Other SEIZURE LOSS OF MOVEMENT IN LEGS indomethacin Allergy (Verified 04/20/20 07:46) NEEDS FOLLOW-UP pneumococcal vaccine Allergy (Verified 04/20/20 07:46) NEEDS FOLLOW-UP morphine Adverse Reaction (Severe, Verified 04/20/20 07:46) Nausea Procedures: None - Type of Care/Length of Stay Estimated LOS: Convalescent Care Less Than 30 days Type of Care Needed: Skilled Rehab Potential: Good Prognosis: Good - Additional Orders/Day of Discharge Day of Discharge: 04/22/20 - Dietary and Speech Recommendations Speech Linguistic Eval Summary: Informal cognitive assessment completed: Orientation: Pt oriented to self, month/day (year within 4 years), place, month, and year. BANKING CONSULTANT reoriented pt to age, year, and day of week. Auditory Comprehension: Pt observed with RN to choose breakfast items from menu. To respond to simple questions from RN to order breakfast, pt required extended time, repetition, and field of 2 choices to respond. Pt followed directions for oral [facility] exam provided verbal repetition with mild/mod impairment. Verbal expression: Pt unable to inform RN of diet order without field of choices and extended time. Pt completed divergent naming task listing animals X1 given 1 minute. Memory: Pt recalled details of diet order from 10 min prior with 4/7 acc. Given field of choices, pt named items with 5/7 acc. Visual Perception: Pt had difficulty locating menu items on L side of menu independently. BANKING CONSULTANT asked pt to locate various shapes in field of 30 shapes and pt completed task with mild/mod impairment. Additionally, pt had difficutly making transitions during task to locate each next shape. Pt presents with moderate cognitive-linguistic impairment characterized by functional deficits in orientation, memory, attention, auditory comprehension, and visual scanning. - Follow Up Care Primary Care Physician: Augusta Wilson DO [Primary Care Provider] - Please follow up with your Primary Care Physician in: 1-2 weeks
--- NOTE | 2020-04-22 14:27 | DS.PCM_ITS ---
Discharge Date and Diagnosis - Problem List Patient Problems: Active and Suspected Problems (Last Reviewed 04/03/20 @ 11:33 by Anika Choudhary) Hypotension (Acute) S/P craniotomy (Acute) Date of Admission: 04/20/20 Date of Discharge: 04/22/20 - Primary Discharge Diagnosis Acute Problems: Active Problems (Last Reviewed 04/03/20 @ 11:33 by Anika Choudhary) Hypotension (Acute) S/P craniotomy (Acute) - Secondary Discharge Diagnosis Chronic Problems: Chronic Problems (Last Reviewed 04/03/20 @ 11:33 by Anika Choudhary) Seizure disorder (Chronic) Stroke (Chronic) HLD (hyperlipidemia) (Chronic) Anxiety and depression (Chronic) Essential tremor (Chronic) Low back pain (Chronic) Vascular dementia (Chronic) Hypertension (Chronic) Neuropathic pain (Chronic) Left hemiparesis (Chronic) Anxiety (Chronic) Chronic indwelling Bentley catheter (Chronic) Chronic anticoagulation (Chronic) on therapeutic Lovenox Cauda equina syndrome (Chronic) Myelodysplasia (myelodysplastic syndrome) (Chronic) Depression (Chronic) Cerebrovascular disease (Chronic) MDS (myelodysplastic syndrome), low grade (Chronic) Myeloma (Chronic) Lung nodule (Chronic) Left upper lobe, May 2018 Liver lesion, right lobe (Chronic) Negative biopsy for malignancy June 29, 2018 Anemia (Chronic) Cognitive dysfunction (Chronic) Meningioma (Chronic) Hospital Course and Treatment Imaging Results: Diagnostic Data Brain CT 04/20/20 08:07 IMPRESSION: 1. Status post left temporoparietal craniectomy with evacuation of the previously noted left subdural hematoma. 2. Essentially resolved shift of the midline to the right side. 3. No new bleed is seen. Electronically Signed: Thuan Lopez MD at 9:17 EDT Tel , Service support , Chest X-Ray 04/20/20 08:48 IMPRESSION: No active pulmonary disease. Electronically Signed: Thuan Lopez MD at 9:20 EDT Tel , Service support , Operations: None Procedures: None Summary of Care Provided: The patient is a 75 year old F with an extensive past medical history as outlined was admitted through the ED from the transitional care unit on 04/20/2020 on account of hypotension. Patient was seen about a week prior to this admission at [facility] and found to have subdural hematoma and transferred to [facility] where she had an evacuation of the subdural hematoma and craniotomy. She was subsequently sent to the TCU. She was noted to have hypotension for about 1 day and she was given fluids IV. She was asymptomatic. HEr BP meds were also stopped. However, patient was still noted to be having low blood pressure though asymptomatic. She was therefore brought in to the ED. She was seen and had no complaints at time I reviewed it. She denied any headache, blurred vision, nausea vomiting, chest pain, abdominal pain, diarrhea vomiting. Review of systems otherwise negative. On admission in the ED, at time of review, blood pressure was 94/53 with temperature of 98.1, pulse rate of 75 respiratory rate of 18. Chemistry is unremarkable. Initial troponin was negative. CBC showed hemoglobin of 8 with WBC of 15.3 and platelets of 254. CT of the brain showed status post left temporoparietal craniectomy with evacuation of the previously noted left subdural hematoma with essentially resolved shift of the midline to the right side and no new bleed visualized. She has been admitted to be managed for hypotension likely medication induced and anemia which likely due to subdural hematoma which had resolved. Her blood pressure medications were held and she was started on IV fluids for hydration. Blood pressure subsequently normalized and was in the 110s and 120s systolic. However hemoglobin dropped to a carla of 7.2. Decision was therefore made to transfuse patient with 2 units of packed red blood cells. Anemia was thought to be due to blood loss from evacuation of subdural hematoma which that occurred just about a week before. Iron panel done showed iron of 16 with iron saturation of 4.7 and ferritin of only 33 with TIBC of 343. She was therefore thought to also have iron deficiency anemia was started on iron supplementation orally. Globin came up to 10.8 after transfusion. She remained stable and was discharged back to the transitional care unit on 04/22/2020. She was discharged with a prescription for p.o. iron supplementation and is to follow-up with her primary care doctor within 1 week. She is to also have periodic follow-up CBC to monitor hemoglobin. Of note, she was also noted to be orthostatics positive and was hydrated with IV fluids to help with this. Patient seen and examined prior to discharge. She had no complaints and felt well. Review of signs otherwise negative. Labs and vitals reviewed. Home medication reviewed and reconciled. O/E: Vital Signs Temp Pulse Resp BP Pulse Ox 97.0 F L 76 16 116/57 L 99 04/22/20 14:10 04/22/20 14:10 04/22/20 14:10 04/22/20 14:10 04/22/20 14:10 General: Alert, Oriented x3, Cooperative, No apparent distress HEENT: Atraumatic, PERRLA, EOMI, Normocephalic, - - left craniotomy hannah in place. Oral: Moist Mucosa Neck: Supple, No JVD, Negative Carotid Bruits Lungs: Clear to auscultation, Normal air movement, No rhonchi, No wheeze, No rales Cardiovascular: Regular rate, Regular Rhythm, Normal S1, Normal S2, No murmurs Abdomen: Bowel Sounds Present, Soft, Non Tender, Non-Distended, No Hepato- splenomegaly Extremities: No clubbing, No cyanosis, No edema, Capillary Refill Less than 3 Seconds Skin: No rashes, No breakdown Musculoskeletal: No Tenderness to Palpation of Joints or Extremities Lymphatic: No Cervical, Supraclavicular, or Inguinal Adenopathy Neurological: Cranial nerves II-XII grossly intact, Neuro grossly intact, Motor Exam 5/5 strength throughout, - - left craniotomy scar Psych/Mental Status: Normal Affect, Appropriate, Alert and oriented to time, place, person, mood and affect Plan is for discharge to transitional care unit today. Patient Problems: Active and Suspected Problems (Last Reviewed 04/03/20 @ 11:33 by Anika Choudhary) Hypotension (Acute) S/P craniotomy (Acute) - Physical Exam Vitals/I&O's: Vital Signs Temp Pulse Resp BP Pulse Ox 97.0 F L 76 16 116/57 L 99 04/22/20 14:10 04/22/20 14:10 04/22/20 14:10 04/22/20 14:10 04/22/20 14:10 Oxygen Delivery Method Room Air Weight: 131 lb 8 oz Body Mass Index (BMI) 22.6 Finger Stick Blood Glucose 106 Orthostatic Vital Signs Start: 04/21/20 03:46 Freq: q24h Status: Active Protocol: Activity Type Activity Date Activity User E-Sign Co-Sign Detail Recorded Client Recorded Date Recorded By Document 04/21/20 03:46 AML [id number] 04/21/20 03:47 AML 04/21/20 03:46 Orthostatic Vitals Standing -Blood Pressure (90/60-120/80) 127/45 H -Extremity Use Left Arm -Pulse Rate (60-100) 83 Sitting -Blood Pressure (90/60-120/80) 110/40 L -Extremity Use Left Arm -Pulse Rate (60-100) 76 Lying -Blood Pressure (90/60-120/80) 104/40 L -Extremity Use Left Arm -Pulse Rate (60-100) 79 Intake and Output for Last 24 Hours 04/20/20 04/21/20 04/22/20 23:59 23:59 23:59 Intake Total 2045 / 2145 2545 / 2545 240 / 240 Output Total 1250 / 2250 3975 / 3975 850 / 850 Balance 795 / -105 -1430 / -1430 -610 / -610 Microbiology Past 72 Hours 04/20/20 08:10 Urine, Catheterized Urine Culture - Final Presumptive E. coli Laboratory Results 04/20/20 08:20: Diff Path Review Reviewed 04/20/20 09:29: Crossmatch See Detail 04/21/20 05:00: Diff Path Review Reviewed 04/22/20 05:06: WBC 13.7 H, RBC 3.34 L, Hgb 10.8 L, Hct 33.0 L, MCV 98.8 D, MCH 32.3 H, MCHC 32.7 D, RDW Std Deviation 50.8 H, RDW Coeff of Moriah 14.0, Plt Count 298, MPV 11.6, Neut % (Auto) Not Reportable, Absolute Neuts (auto) 9.6 H, Absolute Lymphs (auto) 2.19, Total Counted 100, Neutrophils % (Manual) 60, Band Neutrophils % 10 H, Lymphocytes % (Manual) 16 L, Monocytes % (Manual) 10, Eosinophils % (Manual) 4, Metamyelocytes % 2 H, Diff Path Review Reviewed, Platelet Estimate ADEQUATE, RBC Morphology NORM C+C 04/22/20 05:06: Sodium 140, Potassium 3.9, Chloride 110 H, Carbon Dioxide 26.0, Anion Gap 4 L, BUN 14, Creatinine 0.80, Estim Creat Clear Calc 51.66, Est GFR (MDRD) Af Amer 89, Est GFR (MDRD) Non-Af 74, BUN/Creatinine Ratio 17.4, Glucose 87, Calcium 8.3 L Current Medications Acetaminophen (Tylenol) 650 mg PO Q4H PRN PRN PRN Reason: Pain (1-10) or Fever Last Admin: 04/22/20 13:12 Dose: 650 mg Documented by: Atorvastatin Calcium (Lipitor) 80 mg PO QHS [facility] Last Admin: 04/21/20 21:08 Dose: 80 mg Documented by: Bupropion HCl (Wellbutrin Sr (150mg Tablets)) 150 mg PO BID [facility] Last Admin: 04/22/20 08:24 Dose: 150 mg Documented by: Calcium [facility] ([facility]) [facility] Last Admin: 04/22/20 08:24 Dose: 1,000 mg Documented by: Diazepam (Valium) 2 mg PO Q8H PRN PRN PRN Reason: Vertigo Escitalopram Oxalate (Lexapro) 10 mg PO DAILY [facility] Last Admin: 04/22/20 08:25 Dose: 10 mg Documented by: Ferrous Sulfate (Ferrous Sulfate) 325 mg PO 1200,1700 [facility] Last Admin: 04/22/20 12:40 Dose: 325 mg Documented by: Gab[facility] ([facility]ontin) [facility] Last Admin: 04/22/20 08:24 Dose: 100 mg Documented by: Sodium Chloride () 500 mls @ 15 mls/hr IV PRN PRN PRN Reason: Blood Transfusion Sodium Chloride () 250 mls @ 15 mls/hr IV .[id number] PRN PRN Reason: Saline Flush Sodium Chloride () 250 mls @ 15 mls/hr IV .[id number] PRN PRN Reason: Additional IVPB Infusion Levetiracetam (Keppra Tablet) 1,000 mg PO Q12H [facility] Stop: 05/02/20 22:01 Last Admin: 04/22/20 08:24 Dose: 1,000 mg Documented by: Meclizine HCl (Antivert) 25 mg PO Q8H PRN PRN Reason: DIZZINESS Mirabegron (Myrbetriq) 25 mg PO DAILY [facility] Last Admin: 04/22/20 08:24 Dose: 25 mg Documented by: Multivitamins/Minerals (Multivitamin With Minerals (Bkc)) 1 tablet PO DAILY@0800 [facility] Last Admin: 04/22/20 08:25 Dose: 1 tablet Documented by: Nitroglycerin (Nitrostat) 0.4 mg SUBLINGUAL Q5M PRN PRN Reason: CARDIAC/CHEST PAIN Ondansetron HCl (Zofran) 4 mg IV Q8H PRN PRN PRN Reason: NAUSEA/VOMITING Oxycodone HCl (Oxyir) 5 mg PO Q8H PRN PRN PRN Reason: Pain Score 6-10/10 Last Admin: 04/21/20 21:07 Dose: 5 mg Documented by: Pantoprazole Sodium (Protonix) 40 mg PO DAILY [facility] Last Admin: 04/22/20 08:24 Dose: 40 mg Documented by: Polyethylene Glycol (Miralax) 17 gm PO DAILY PRN PRN Reason: Constipation Last Admin: 04/20/20 15:00 Dose: 17 gm Documented by: Sodium Chloride () 10 - 40 ml IV UD PRN PRN Reason: SALINE FLUSH Last Admin: 04/22/20 03:11 Dose: 10 ml Documented by: Discharge Diet: Low fat/ Low Cholesterol Discharge Activity: Return to Normal Activity Weight Bearing Status: Weight bearing as tolerated Call your doctor if you observe: Fever of 101 or Higher, Shortness of breath, Dizziness, Fainting spells, Swelling in the ankles Home Medications: Medications to take at Discharge Atorvastatin Calcium [Lipitor] 80 mg PO QHS #30 tab 09/10/19 Gabapentin 100 mg PO BID 09/22/19 Tamsulosin HCl [Flomax] 0.4 mg PO DAILY@1730 09/26/19 buPROPion SR [Wellbutrin SR (150mg tablets)] 150 mg PO BID 09/26/19 Dexamethasone [Decadron] 40 mg PO WE 12/13/19 Cholecalciferol (Vitamin D3) [D3-50] 1,250 mcg PO DAILY 02/07/20 Meclizine HCl [Antivert] 25 mg PO Q8H PRN #16 tab 02/07/20 Pantoprazole Sodium [Protonix] 40 mg PO DAILY 02/07/20 Acetaminophen [Tylenol] 650 mg PO Q4H PRN PRN 04/17/20 Calcium Carbonate [Calcium] 1,200 mg PO DAILY 04/17/20 Diazepam 2 - 4 mg PO Q8H PRN PRN 04/17/20 Enoxaparin Sodium [Lovenox] 40 mg SQ DAILY 04/17/20 Escitalopram Oxalate 10 mg PO DAILY 04/17/20 Levetiracetam 1,000 mg PO Q12H 04/17/20 Mirabegron [Myrbetriq] 25 mg PO DAILY 04/17/20 Multivitamin with Minerals [Multivitamins with Minerals] 1 ea PO DAILY 04/17/20 Oxycodone HCl/Acetaminophen [Percocet 5-325 mg Tablet] 1 ea PO Q8H PRN PRN 04/17/20 Ferrous Sulfate 325 mg PO 1200,1700 #60 tab 04/22/20 Following Prescriptions Were Given to Patient: Ferrous Sulfate 325 mg PO 1200,1700 #60 tab Prescription Printed Primary Care Physician: Augusta Wilson DO [Primary Care Provider] - Please follow up with your Primary Care Physician in: 1-2 weeks Disposition: Custodial facility Minutes spent on discharge:: 35 Medical Necessity - Tobacco Use Smoking Status: Never smoker Meaningful Use Info Meaningful Use Diagnoses (Choose all that apply): None applicable Inpatient E&M: 42968 Disch Hosp
--- NOTE | 2020-04-22 14:37 | NURSING ---
report called to Lori on TCU
--- NOTE | 2020-04-22 14:42 | CHAPLAIN ---
Type of Pastoral Visit _x__ Initial Visit ___ Follow-up Visit ___ On-call Visit ___ General Patient Visit ___ Spiritual Assessment ___ Family Conference ___ Bereavement ___ Rapid Response ___ Code Blue ___ Other (describe below) Pastoral Care Referral From _x__ Patient _x__ Family ___ Nurse ___ Physician ___ Scientific Research Associate ___ Kiln Burner Helper ___ Other (describe below) Sacrament/Intervention _x__ Active listening ___ Anointing ___ Jewish ___ Bereavement ___ Communion ___ Orly exploration ___ _x__ Life review _x__ Prayer ___ Reconciliation ___ Sacrament of Sick _x__ Supportive presence ___ Wedding ___ Other (describe below) Pastoral Comments spouse was in room with patient; pt has been seen numerous times on previous admissions and spouse is familiar with this renal technician; spouse gives more information about pt [place] and needs; spouse emphasizing the importance to patient of remaining positive and persisting in recovery efforts; spouse also expressive about being able to see pt in her room; pt is alert and responding appropriately to conversation and dialogue; prayer and presence is welcomed
== END 2020-04-22 15:10 | disposition skilled nursing facility (03) | DRG 312 ==
LOC: ED 10:49 → PCU 11:03
PROVIDERS: Admitting Provider Student in an Organized Health Care Education/Training Program; Emergency Provider Emergency Medicine; PCP Family Medicine; Visit Provider Student in an Organized Health Care Education/Training Program
DX: I95.2 Hypotension due to drugs (principal); G83.4 Cauda equina syndrome; C90.00 Multiple myeloma not having achieved remission; D62 Acute posthemorrhagic anemia; G81.94 Hemiplegia, unspecified affecting left nondominant side; T50.905A Adverse effect of unspecified drugs, medicaments and biological substances, initial encounter; D50.9 Iron deficiency anemia, unspecified; G40.909 Epilepsy, unspecified, not intractable, without status epilepticus; E78.5 Hyperlipidemia, unspecified; F32.9 Major depressive disorder, single episode, unspecified; F41.9 Anxiety disorder, unspecified; F01.50 Vascular dementia, unspecified severity, without behavioral disturbance, psychotic disturbance, mood disturbance, and anxiety; I10 Essential (primary) hypertension; G25.0 Essential tremor; D46.20 Refractory anemia with excess of blasts, unspecified; Z98.890 Other specified postprocedural states; Z79.01 Long term (current) use of anticoagulants; Z79.899 Other long term (current) drug therapy; Z86.73 Personal history of transient ischemic attack (TIA), and cerebral infarction without residual deficits
CPT/HCPCS: 36415; 70450; 71045; 80048; 80053; 81001; 82728; 83540; 83550; 83605; 84484; 85025; 85610; 85730; 86850; 86900; 86901; 86920; 86922; 87086; 87088; 87186; 92507; 92523; 92610; 93005; 97110; 97162; 97166; 97530; 99285; J7030; J7040; P9016; P9040; A4216

== ENCOUNTER 2020-04-22 15:24 | Inpatient (IN) | payer MEDICARE, OTHER, SELFPAY ==
[2020-04-20 11:37] VITALS: BMI 22.6
[2020-04-22 15:30] VITALS: BP 111/60; PULSE 77; RESP 16; TEMP 36.3; O2SAT 95; BMI 21.7
[2020-04-22] MEDS: levETIRAcetam 1,000 MG Tablet 1000 MG PO (18:21)
[2020-04-22] MEDS: Ferrous Sulfate 325 MG Tablet PO (18:21)
[2020-04-22] MEDS: Tamsulosin HCl 0.4 MG Capsule PO (18:21)
[2020-04-22] MEDS: Senna/Docusate Sodium 1 Tablet 2 TABLET PO (18:21)
[2020-04-22] MEDS: Gabapentin 100 MG Capsule PO (18:21)
[2020-04-22] MEDS: buPROPion (SR) 150 MG Tablet.SA PO (18:22)
[2020-04-22] MEDS: Menthol/Lanolin/Calamine/Znox 113 GM Tube 1 APPLIC TOPICAL (18:25)
[2020-04-22] MEDS: Atorvastatin Calcium 80 MG Tablet PO (20:50)
--- NOTE | 2020-04-22 21:16 | PCM.HP.STD ---
Problem List (1) Iron deficiency anemia Status: Acute (2) Debility Status: Acute (3) Multiple falls Status: Chronic (4) Subdural hematoma Status: Chronic (5) Seizure disorder Status: Chronic (6) Stroke Status: Chronic (7) Hypotension Status: Acute (8) HLD (hyperlipidemia) Status: Chronic Qualifiers: (9) Essential tremor Status: Chronic (10) Vascular dementia Status: Chronic (11) Hypertension Status: Chronic Qualifiers: (12) Neuropathic pain Status: Chronic (13) Left hemiparesis Status: Chronic (14) Anxiety Status: Chronic (15) Myelodysplasia (myelodysplastic syndrome) Status: Chronic (16) Depression Status: Chronic (17) Myeloma Status: Chronic Qualifiers: (18) Meningioma Status: Chronic History of Present Illness Date of Admission: 04/22/20 Chief Complaint: Here for rehabilitation, strengthening, prior to discharge home with . 04/17/2020 The patient is a 75 year old Female admitted to TCU status post left craniectomy/craniotomy, subdural hematoma evacuation. 04/19/2020 Resident had hypotension, headache, blurred vision. 04/20/2020 Resident still hypotension after 1.5 Liters IV fluid, transferred to [facility] ED for evaluation. 04/21/2020 Admit to [facility] [place]. CT head showed improvement in subdural hematoma, no new bleed. IV Fluids given for hypotension with improvement. Hemoglobin 7.2, patient transfused 2 units PRBC with improvement of Hemoglobin. Oral iron supplement started for iron deficiency anemia. 04/22/2020 Admit to TCU with debility, here for rehabilitation, strengthening, prior to discharge home with . Past Medical History Past Medical History (Chronic Problems): Chronic Problems (Last Reviewed 04/03/20 @ 11:33 by Anika Choudhary) Multiple falls (Chronic) Subdural hematoma (Chronic) Seizure disorder (Chronic) Stroke (Chronic) HLD (hyperlipidemia) (Chronic) Anxiety and depression (Chronic) Essential tremor (Chronic) Low back pain (Chronic) Vascular dementia (Chronic) Hypertension (Chronic) Neuropathic pain (Chronic) Left hemiparesis (Chronic) Anxiety (Chronic) Chronic indwelling Bentley catheter (Chronic) Chronic anticoagulation (Chronic) on therapeutic Lovenox Cauda equina syndrome (Chronic) Myelodysplasia (myelodysplastic syndrome) (Chronic) Depression (Chronic) Cerebrovascular disease (Chronic) MDS (myelodysplastic syndrome), low grade (Chronic) Myeloma (Chronic) Lung nodule (Chronic) Left upper lobe, May 2018 Liver lesion, right lobe (Chronic) Negative biopsy for malignancy June 29, 2018 Anemia (Chronic) Cognitive dysfunction (Chronic) Meningioma (Chronic) Medical History: Medical History (Last Reviewed 04/03/20 @ 11:33 by Anika Choudhary) Cellulitis L03.90 left eye 1-2018 Meningioma D32.9 Gamma knife at [facility] ~2000 Osteopenia M85.80 Stroke I63.9 X2 - HOSPITALIZATION FOR 5 DAYS Allergies sulfamethoxazole [From Bactrim] Allergy (Severe, Verified 04/20/20 07:46) Other SEIZUERE, LOSS OF MOVEMENT IN LEGS trimethoprim [From Bactrim] Allergy (Severe, Verified 04/20/20 07:46) Other SEIZURE LOSS OF MOVEMENT IN LEGS indomethacin Allergy (Verified 04/20/20 07:46) NEEDS FOLLOW-UP pneumococcal vaccine Allergy (Verified 04/20/20 07:46) NEEDS FOLLOW-UP morphine Adverse Reaction (Severe, Verified 04/20/20 07:46) Nausea Home Medications: Ambulatory Orders Medication Instructions Recorded Atorvastatin Calcium [Lipitor] 80 mg PO QHS #30 tab 09/10/19 Gabapentin 100 mg PO BID 09/22/19 Tamsulosin HCl [Flomax] 0.4 mg PO DAILY@1730 09/26/19 buPROPion SR [Wellbutrin SR (150mg 150 mg PO BID 09/26/19 tablets)] Dexamethasone [Decadron] 40 mg PO WE 12/13/19 Cholecalciferol (Vitamin D3) 1,250 mcg PO DAILY 02/07/20 [D3-50] Meclizine HCl [Antivert] 25 mg PO Q8H PRN #16 tab 02/07/20 Pantoprazole Sodium [Protonix] 40 mg PO DAILY 02/07/20 Acetaminophen [Tylenol] 650 mg PO Q4H PRN PRN 04/17/20 Calcium Carbonate [Calcium] 1,200 mg PO DAILY 04/17/20 Diazepam 2 - 4 mg PO Q8H PRN PRN 04/17/20 Enoxaparin Sodium [Lovenox] 40 mg SQ DAILY 04/17/20 Escitalopram Oxalate 10 mg PO DAILY 04/17/20 Levetiracetam 1,000 mg PO Q12H 08/19/20 Mirabegron [Myrbetriq] 25 mg PO DAILY 04/17/20 Multivitamin with Minerals 1 ea PO DAILY 04/17/20 [Multivitamins with Minerals] Oxycodone HCl/Acetaminophen 1 ea PO Q8H PRN PRN 04/17/20 [Percocet 5-325 mg Tablet] Ferrous Sulfate 325 mg PO 1200,1700 04/22/20 Surgical History: Surgical History (Last Reviewed 04/03/20 @ 11:33 by Anika Choudhary) History of cholecystectomy Z90.49 History of hysterectomy Z90.710 Surgical History: cholecystectomy, hysterectomy, tonsillectomy, - - Gamma knife meningioma. Surgery to evacuate a very large Lumbar hematoma causing cauda equina S. Left subdural hematoma craniectomy/craniotomy. 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 Paternal Family History: Family History (Last Reviewed 04/03/20 @ 11:33 by Anika Choudhary) Mother Breast cancer Sister Breast cancer Aunt Breast cancer Daughter History of malignant melanoma Father Brain cancer Brother Lung cancer History Items: Cancer - Father with history of brain cancer. Review of Systems Constitutional: Denies: Chills, Fever, Weight Change HEENT: Denies: Head Aches, Sinus Congestion, Sinus Drainage Cardiovascular: Denies: Chest Pain, Palpitations Respiratory: Denies: Cough, Shortness of breath at rest, Sputum production Gastrointestinal: Denies: Abdominal Pain, Nausea, Vomiting Genitourinary: Denies: Dysuria Musculoskeletal: Denies: Joint Pain, Joint Tenderness Skin: Denies: Rash, Wounds Neurological: Denies: Numbness, Tingling, Focal weakness Psychiatric: Denies: Anxiety, Depression, Homicidal Ideations, Suicidal Ideations Hematologic/ Lymphatic: Denies: Easy Bruising, Easy Bleeding VTE Information - Inpt Only VTE Present on Admission: No VTE Mechan Device Prophylaxis: Knee High RICKIE Hose VTE Pharm Prophylaxis ordered?: Yes Patient Problems: Active and Suspected Problems (Last Reviewed 04/03/20 @ 11:33 by Anika Choudhary) Iron deficiency anemia (Acute) - Physical Exam Vitals/I&O's: Vital Signs Temp Pulse Resp BP Pulse Ox 97.3 F L 77 16 111/60 95 04/22/20 15:30 04/22/20 15:30 04/22/20 15:30 04/22/20 15:30 04/22/20 15:30 Oxygen Delivery Method Room Air Weight: 57.323 kg Body Mass Index (BMI) 21.7 Finger Stick Blood Glucose 106 General: Alert, Oriented x3, Cooperative HEENT: Atraumatic, PERRLA, EOMI, Normocephalic, - - Left craniectomy. Neck: Supple, No JVD, Negative Carotid Bruits Lungs: Clear to auscultation, Normal air movement Cardiovascular: Regular rate, No murmurs Abdomen: Bowel Sounds Present, Soft, Non Tender Extremities: No edema, Capillary Refill Less than 3 Seconds Skin: No rashes, No breakdown Musculoskeletal: No Tenderness to Palpation of Joints or Extremities Neurological: Cranial nerves II-XII grossly intact, - - Left hemiparesis. Psych/Mental Status: Normal Affect, Appropriate Current Medications Acetaminophen (Tylenol) 650 mg PO Q4H PRN PRN PRN Reason: Pain 1-10 or Fever Atorvastatin Calcium (Lipitor) 80 mg PO QHS [facility] Last Admin: 04/22/20 20:50 Dose: 80 mg Documented by: Bisacodyl (Dulcolax) 10 mg RECTAL DAILY PRN PRN Reason: constipation Bupropion HCl (Wellbutrin Sr (150mg Tablets)) 150 mg PO BID [facility] Last Admin: 04/22/20 18:22 Dose: 150 mg Documented by: Calamine/Phenol (Calmoseptine Ointment) 1 applic TOPICAL BID [facility]; Protocol Last Admin: 04/22/20 18:25 Dose: 1 applicatio Documented by: Calcium Carbonate ([facility]ums) [facility] Cholecalciferol (Vitamin D (25mcg)) 1,000 unit PO DAILY [facility] Dexamethasone (Decadron) 40 mg PO We@0800 [facility] Diazepam (Valium) 2 - 4 mg PO Q8H PRN PRN PRN Reason: Vertigo Enoxaparin Sodium (Lovenox) 40 mg SC DAILY [facility] Escitalopram Oxalate (Lexapro) 10 mg PO DAILY [facility] Ferrous Sulfate (Ferrous Sulfate) 325 mg PO 1200,1700 [facility] Last Admin: 04/22/20 18:21 Dose: 325 mg Documented by: Gabapentin (Neurontin) 100 mg PO BIDCM [facility] Last Admin: 04/22/20 18:21 Dose: 100 mg Documented by: Levetiracetam (Keppra Tablet) 1,000 mg PO Q12 [facility] Last Admin: 04/22/20 18:21 Dose: 1,000 mg Documented by: Meclizine HCl (Antivert) 25 mg PO Q8H PRN PRN PRN Reason: DIZZINESS Mirabegron (Myrbetriq) 25 mg PO DAILY [facility] Multivitamins/Minerals (Multivitamin With Minerals (Bkc)) 1 tablet PO DAILY@0800 [facility] Nutritional Formula (Lactose Free) (Ensure Enlive) 120 ml PO 4X/DAY [facility] Last Admin: 04/22/20 20:48 Dose: 120 ml Documented by: Oxycodone HCl (Oxyir) 5 mg PO Q8H PRN PRN PRN Reason: Pain Score 4-10/10 Pantoprazole Sodium (Protonix) 40 mg PO DAILY [facility] Senna/Docusate Sodium (Senokot-S, Kassy-Colace) 2 tablet PO BID [facility] Last Admin: 04/22/20 18:21 Dose: 2 tablet Documented by: Sodium Biphosphate/Sodium Phosphate (Fleet Enema) 1 bottle RECTAL DAILY PRN PRN Reason: Constipation Tamsulosin HCl (Flomax) 0.4 mg PO DAILY@1730 [facility] Last Admin: 04/22/20 18:21 Dose: 0.4 mg Documented by: Tuberculin PPD (Tubersol, Aplisol, Ppd) 5 tu ID [id number] ONE Stop: 04/23/20 10:01 Tuberculin PPD (Tubersol, Aplisol, Ppd) 5 tu ID [id number] ONE Stop: 04/30/20 10:01 Assessment/Plan All Active Problems (Last Reviewed 04/03/20 @ 11:33 by Anika Choudhary) Debility (Acute) Encephalopathy (Acute) Hypotension (Acute) S/P craniotomy (Acute) Iron deficiency anemia (Acute) 75 year old female with below past medical history significant for left subdural hematoma status post left craniectomy/craniotomy, subdural hematoma evacuation, hospitalized for hypotension, iron deficiency anemia requiring transfusion, admitted to TCU with debility, here for rehabilitation, strengthening, prior to discharge home with . Debility - PT/OT. Pain - Tylenol 1000MG Q6H PRN pain (1-3), Oxycodone 5MG Q4H PRN pain (4-10). Bowel - Miralax 17GM daily, Senna/colace 2 tablets BID, Dulcolax 10MG [place] daily PRN. Adult immunization - Administer Prevnar 13, Pneumovax 23, Fluzone as appropriate. DVT prophylaxis - Lovenox 40MG SC daily. Hyperlipidemia - Atorvastatin 80MG QHS. Depression - Bupropion SR 150MG BID. Calcium deficiency - Calcium 1000MG daily. Vitamin D deficiency - D3 1000IU daily. Multiple Myeloma - Dr. Gómez, Decadron 40MG Qweek. Vertigo - Diazepam 2-4MG Q8H PRN, Meclizine 25MG Q8H PRN. Nutrition - MVI daily, Ensure Enlive 120ML 4x/day. Anxiety - Lexapro 10MG daily. Iron deficiency anemia - Ferrex 150MG BID. Neuropathic pain - Gabapentin 100MG BID. Seizure disorder - Keppra 1000MG BID. Nutrition - Calmoseptine BID. Overactive bladder - Myrbetriq 25MG daily. GERD - Pantoprazole 40MG daily. Urinary retention - Tamsulosin 0.4MG daily.
[2020-04-23] MEDS: levETIRAcetam 1,000 MG Tablet 1000 MG PO ×2 (06:19→18:03)
[2020-04-23] MEDS: Enoxaparin 40 MG/0.4 ML Syringe SC (06:19)
[2020-04-23] MEDS: Escitalopram Oxalate 10 MG Tablet PO (06:19)
[2020-04-23 06:20] LABS: Anion Gap 6 (5-15); BUN 18 mg/dL (7-18); BUN/Creat Ratio 20.4 RATIO (10-20); Calcium,Total 8.3 mg/dL (8.5-10.1); Chloride 107 mmol/L (98-107); Creatinine, Serum 0.88 mg/dL (0.55-1.02); EST Glomerular Filtration Rate 66 mL/min (>60); Est Glom Filt Rate - Afr Amer 80 mL/min (>60); Estimated Creatinine Clearance 46.96 ml/min; Glucose 106 mg/dL (74-106); Sodium Level 138 mmol/L (136-145)
[2020-04-23] MEDS: Senna/Docusate Sodium 1 Tablet 2 TABLET PO ×2 (06:20→18:03)
[2020-04-23] MEDS: Pantoprazole Sodium 40 MG Tablet PO (06:20)
[2020-04-23] MEDS: buPROPion (SR) 150 MG Tablet.SA PO ×2 (06:20→18:03)
[2020-04-23] MEDS: Mirabegron 25 MG TAB.ER.24H PO (06:22)
[2020-04-23] MEDS: Menthol/Lanolin/Calamine/Znox 113 GM Tube 1 APPLIC TOPICAL ×2 (06:28→18:04)
[2020-04-23 06:29] VITALS: BP 116/87; PULSE 83; RESP 16; TEMP 36.7; O2SAT 95
[2020-04-23] MEDS: Gabapentin 100 MG Capsule PO ×2 (08:27→18:01)
[2020-04-23] MEDS: Calcium Carbonate 500 MG Tablet 1000 MG PO (08:27)
[2020-04-23] MEDS: Multivitamins,Ther W-Minerals Tablet 1 TABLET PO (08:27)
[2020-04-23] MEDS: Iron Polysaccharide Complex 150 MG CAPSULE PO ×2 (08:28→18:01)
[2020-04-23 08:29] LABS: Basophil# 0.06 X10^3/uL; Basophil% 0.5 % (0-1); Eosinophil# 0.34 X10^3/uL; Eosinophils% 2.9 % (0-5); Hematocrit 36.1 % (37-47); Hemoglobin 11.4 g/dL (12.0-15.0); Lymphocyte % 8.5 % (19-41); Mean Corp Hgb Conc 31.6 g/dL (32-36); Mean Corpuscular Hgb 31.4 pg (27.0-32.0); Mean Corpuscular Volume 99.4 fL (81-99); Mean Platelet Vol. 12.3 fl (6.2-12.0); Monocyte# 2.82 X10^3/uL; NRBC Flagged by Analyzer 0 % (0-5); Neutrophil # 7.02 X10^3/uL (2.7-7.7); Neutrophil % 59.8 % (47-70); POSITIVE DIFFERENTIAL YES; Platelet Count 262 K/mm3 (150-450); RBC Distribution Width CV 13.5 % (11.6-14.6); Red Blood Count 3.63 M/mm3 (4.2-5.4); White Blood Count 11.8 K/mm3 (4.4-11.0)
[2020-04-23 08:37] LABS: Differential Indicated SCAN CRITERIA MET
[2020-04-23] MEDS: Tuberculin,Purif.prot.deriv. 50 TU/ML Vial 5 ML ID (09:42)
--- NOTE | 2020-04-23 09:42 | NURSING ---
pt returned from acute side of hospital yesterday d/t hypotension. UA & culture checked. Dr casillas reviewed C&S, new order for cipro.
[2020-04-23 11:30] VITALS: O2SAT 95
[2020-04-23] MEDS: oxyCODONE 5 MG Tablet PO (11:45)
--- NOTE | 2020-04-23 11:45 | NURSING ---
PT COUGHING A LOT TODAY. ASSESSED LUNGS. FRONT CLEAR AND UPPER POST. LOWER POST LOBES FINE CRACKLES AND WHEEZING. GAVE I.S.,REPORTED TO NAYAN FRANCO
[2020-04-23 13:57] VITALS: BP 111/66; PULSE 84; RESP 14; TEMP 36.3; O2SAT 95
--- NOTE | 2020-04-23 15:10 | PCM.PN.RX ---
<TeraRickie villalobosi - Last Filed: 04/23/20 15:10> Progress Note - Pharmacy Subjective: TCU Admission Objective: Allergies sulfamethoxazole [From Bactrim] Allergy (Severe, Verified 04/20/20 07:46) Other SEIZUERE, LOSS OF MOVEMENT IN LEGS trimethoprim [From Bactrim] Allergy (Severe, Verified 04/20/20 07:46) Other SEIZURE LOSS OF MOVEMENT IN LEGS indomethacin Allergy (Verified 04/20/20 07:46) NEEDS FOLLOW-UP pneumococcal vaccine Allergy (Verified 04/20/20 07:46) NEEDS FOLLOW-UP morphine Adverse Reaction (Severe, Verified 04/20/20 07:46) Nausea Current Medications Generic Name Dose Route Start Last Admin Trade Name Freq PRN Reason Stop Dose Admin Acetaminophen 1,000 mg 04/22/20 21:45 Tylenol PO Q6H PRN PRN Pain Score 1-3/10 Atorvastatin Calcium 80 mg 04/22/20 22:00 04/22/20 20:50 Lipitor PO 80 mg QHS [facility] Administration Bisacodyl 10 mg 04/22/20 15:42 Dulcolax RECTAL DAILY PRN constipation Bupropion HCl 150 mg 04/22/20 18:00 04/23/20 06:20 Wellbutrin Sr (150mg Tablets) PO 150 mg BID [facility] Administration Calamine/Phenol 1 applic 04/22/20 18:00 04/23/20 06:28 Calmoseptine Ointment TOPICAL 1 applicatio BID [facility] Administration Protocol Calcium Carbonate 1,000 mg 04/23/20 08:00 04/23/20 08:27 Tums PO 1,000 mg DAILYCM [facility] Administration Cholecalciferol 1,000 unit 04/23/20 06:00 04/23/20 06:19 Vitamin D (25mcg) PO 1,000 unit DAILY [facility] Administration Ciprofloxacin HCl 250 mg 04/23/20 18:00 Cipro PO 04/30/20 18:01 BID [facility] Dexamethasone 40 mg 04/24/20 08:00 Decadron PO We@0800 [facility] Diazepam 2 - 4 mg 04/22/20 15:45 Valium PO Q8H PRN PRN Vertigo Enoxaparin Sodium 40 mg 04/23/20 06:00 04/23/20 06:19 Lovenox SC 40 mg DAILY [facility] Administration Escitalopram Oxalate 10 mg 04/23/20 06:00 04/23/20 06:19 Lexapro PO 10 mg DAILY [facility] Administration Gabapentin 100 mg 04/22/20 17:00 04/23/20 08:27 Neurontin PO 100 mg BIDCM [facility] Administration Levetiracetam 1,000 mg 04/22/20 18:00 04/23/20 06:19 Keppra Tablet PO 1,000 mg Q12 [facility] Administration Meclizine HCl 25 mg 04/22/20 15:45 Antivert PO Q8H PRN PRN DIZZINESS Mirabegron 25 mg 04/23/20 06:00 04/23/20 06:22 Myrbetriq PO 25 mg DAILY [facility] Administration Multivitamins/Minerals 1 tablet 04/23/20 08:00 04/23/20 08:27 Multivitamin With Minerals (Bkc) PO 1 tablet DAILY@0800 [facility] Administration Nutritional Formula (Lactose Free) 120 ml 04/22/20 17:00 04/23/20 11:43 Ensure Enlive PO 120 ml 4X/DAY [facility] Administration Oxycodone HCl 5 mg 04/22/20 21:45 04/23/20 11:45 Oxyir PO 5 mg Q4H PRN PRN Administration Pain Score 4-10/10 Pantoprazole Sodium 40 mg 04/23/20 06:00 04/23/20 06:20 Protonix PO 40 mg DAILY [facility] Administration Polyethylene Glycol 17 gm 04/23/20 06:00 04/23/20 06:22 Miralax PO Not Given DAILY [facility] Polysaccharide Iron Complex 150 mg 04/23/20 08:00 04/23/20 08:28 Ferrex 150 PO 150 mg BIDCM [facility] Administration Senna/Docusate Sodium 2 tablet 04/22/20 18:00 04/23/20 06:20 Senokot-S, Kassy-Colace PO 2 tablet BID [facility] Administration Tamsulosin HCl 0.4 mg 04/22/20 17:30 04/22/20 18:21 Flomax PO 0.4 mg DAILY@1730 [facility] Administration Tuberculin PPD 5 tu 04/30/20 10:00 Tubersol, Aplisol, Ppd ID 04/30/20 10:01 X1 ONE Problem List (Last Reviewed 04/03/20 @ 11:33 by Anika Choudhary) Iron deficiency anemia (Acute) Vital Signs Temp Pulse Resp BP Pulse Ox 97.4 F L 84 14 111/66 95 04/23/20 13:57 04/23/20 13:57 04/23/20 13:57 04/23/20 13:57 04/23/20 13:57 Oxygen Delivery Method Room Air Weight: 57.425 kg Body Mass Index (BMI) 21.7 Finger Stick Blood Glucose 106 Sodium 138 mmol/L (136-145) 04/23/20 05:05 Potassium 4.0 mmol/L (3.5-5.1) 04/23/20 05:05 Chloride 107 mmol/L (98-107) 04/23/20 05:05 Carbon Dioxide 25.0 mmol/L (21.0-32.0) 04/23/20 05:05 Anion Gap 6 (5-15) 04/23/20 05:05 BUN 18 mg/dL (7-18) 04/23/20 05:05 Creatinine 0.88 mg/dL (0.55-1.02) 04/23/20 05:05 Est GFR (MDRD) Af Amer 80 mL/min (>60) 04/23/20 05:05 Est GFR (MDRD) Non-Af 66 mL/min (>60) 04/23/20 05:05 BUN/Creatinine Ratio 20.4 RATIO (10-20) H 04/23/20 05:05 Glucose 106 mg/dL (74-106) 04/23/20 05:05 Assessment/Plan: 1. Pain: Tylenol 1000mg by mouth Q6H PRN for pain (1-3), Oxycodone 5mg PO Q4H PRN pain (4-10). Please continue to monitor patient's pain score, PRN usage, and monitor patient for constipation. 2. DVT Prophylaxis: Lovenox 40mg SC daily. Please monitor for S/S of bleeding/DVT, platelets, renal function, and hemoglobin (last Hgb 11.4g/dL). 3. Hyperlipidemia: Atorvastatin 80mg QHS. Please continue to monitor lipid panel (Last: 12/14/2019). 4. Multiple myeloma: Decadron 40mg PO once weekly. Please monitor blood sugar (Last:106 on 04/23/2020), blood pressure(Last 111/66 on 04/23/2020) and WBC. 5. Iron Deficiency Anemia: Ferrex 150mg by mouth BIDCM. Please monitor iron studies (Last FeSat: 4.7% on 04/23/2020 and last ferritin 33ng/mL on 04/23/2020) and hemoglobin (last Hgb 11.4g/dL). Please monitor patient for fatigue and dark stools. 6. Neuropathic Pain: Gabapentin 100mg by mouth BID. Please monitor for S/S of neuropathic pain and renal function. 7. Seizure Disorder: Levetiracetam 1000mg by mouth twice daily. Please monitor patient for seizures and rash. 8. Overactive Bladder: Mirabegron 25mg by mouth daily. Please monitor for anticholinergic symptoms (dry mouth, constipation, and visual disturbances). 9. GERD: Pantoprazole 40mg by mouth daily. Please continue monitoring for S/S of GERD and vitamin D levels. 10. Urinary Retention: Tamsulosin 0.4mg by mouth daily. Please continue to monitor for S/S of urinary retention. *11. Calcium Deficiency/Vitamin D deficiency: Calcium 1000mg by mouth daily and cholecalciferol 1000units PO daily. Please continue to monitor calcium levels (Last: 8.3mg/dL 04/23/2020). There is no Vitamin D3 level in the chart. Please consider ordering one now and then annually as clinically appropriate. Thanks. 12. UTI (E coli on culture): ciprofloxacin 250mg PO BID. Please continue to monitor for S/S of worsening infection, diarrhea, and renal function. Psychotropic Medications: *1. Depression: Bupropion SR 150mg PO BID. Please continue to monitor for S/S of depression. Please consider GDR by 09/2020 if clinically appropriate. Thanks. *2. Anxiety: Escitalopram 10mg by mouth daily. Please continue to monitor for S/S of Anxiety. Please consider GDR by 09/2020 if clinically appropriate. Thanks. *3. Vertigo: Diazepam 2-4mg Q8H PRN vertigo and Meclizine 25mg PO Q8H PRN dizziness. Please continue to monitor for S/S of vertigo and over-sedation. Please consider GDR of diazepam by 09/2020 if clinically appropriate. Thanks. Unnecessary Medications: None Bowel Regimen: Miralax 17gm by mouth daily, Senna/Colace 2 tablets by mouth twice daily, Dulcolax 10mg rectally daily PRN constipation Please monitor for regular bowel movements and PRN usage. Date of Note:: 04/23/20 - Provider Comments Provider responsibility: Provider responsible to enter orders to implement recommendations <Jovanni Steven Chi - Last Filed: 04/23/20 17:23> Progress Note - Pharmacy Subjective: [] Objective: Allergies sulfamethoxazole [From Bactrim] Allergy (Severe, Verified 04/20/20 07:46) Other SEIZUERE, LOSS OF MOVEMENT IN LEGS trimethoprim [From Bactrim] Allergy (Severe, Verified 04/20/20 07:46) Other SEIZURE LOSS OF MOVEMENT IN LEGS indomethacin Allergy (Verified 04/20/20 07:46) NEEDS FOLLOW-UP pneumococcal vaccine Allergy (Verified 04/20/20 07:46) NEEDS FOLLOW-UP morphine Adverse Reaction (Severe, Verified 04/20/20 07:46) Nausea Current Medications Generic Name Dose Route Start Last Admin Trade Name Freq PRN Reason Stop Dose Admin Acetaminophen 1,000 mg 04/22/20 21:45 Tylenol PO Q6H PRN PRN Pain Score 1-3/10 Atorvastatin Calcium 80 mg 04/22/20 22:00 04/22/20 20:50 Lipitor PO 80 mg QHS [facility] Administration Bisacodyl 10 mg 04/22/20 15:42 Dulcolax RECTAL DAILY PRN constipation Bupropion HCl 150 mg 04/22/20 18:00 04/23/20 06:20 Wellbutrin Sr (150mg Tablets) PO 150 mg BID [facility] Administration Calamine/Phenol 1 applic 04/22/20 18:00 04/23/20 06:28 Calmoseptine Ointment TOPICAL 1 applicatio BID [facility] Administration Protocol Calcium Carbonate 1,000 mg 04/23/20 08:00 04/23/20 08:27 Tums PO 1,000 mg DAILYCM [facility] Administration Cholecalciferol 1,000 unit 04/23/20 06:00 04/23/20 06:19 Vitamin D (25mcg) PO 1,000 unit DAILY [facility] Administration Ciprofloxacin HCl 250 mg 04/23/20 18:00 Cipro PO 04/30/20 18:01 BID [facility] Dexamethasone 40 mg 04/24/20 08:00 Decadron PO We@0800 [facility] Diazepam 2 - 4 mg 04/22/20 15:45 Valium PO Q8H PRN PRN Vertigo Enoxaparin Sodium 40 mg 04/23/20 06:00 04/23/20 06:19 Lovenox SC 40 mg DAILY [facility] Administration Escitalopram Oxalate 10 mg 04/23/20 06:00 04/23/20 06:19 Lexapro PO 10 mg DAILY [facility] Administration Gabapentin 100 mg 04/22/20 17:00 04/23/20 08:27 Neurontin PO 100 mg BIDCM [facility] Administration Levetiracetam 1,000 mg 04/22/20 18:00 04/23/20 06:19 Keppra Tablet PO 1,000 mg Q12 [facility] Administration Meclizine HCl 25 mg 04/22/20 15:45 Antivert PO Q8H PRN PRN DIZZINESS Mirabegron 25 mg 04/23/20 06:00 04/23/20 06:22 Myrbetriq PO 25 mg DAILY [facility] Administration Multivitamins/Minerals 1 tablet 04/23/20 08:00 04/23/20 08:27 Multivitamin With Minerals (Bkc) PO 1 tablet DAILY@0800 [facility] Administration Nutritional Formula (Lactose Free) 120 ml 04/22/20 17:00 04/23/20 11:43 Ensure Enlive PO 120 ml 4X/DAY [facility] Administration Oxycodone HCl 5 mg 04/22/20 21:45 04/23/20 11:45 Oxyir PO 5 mg Q4H PRN PRN Administration Pain Score 4-10/10 Pantoprazole Sodium 40 mg 04/23/20 06:00 04/23/20 06:20 Protonix PO 40 mg DAILY [facility] Administration Polyethylene Glycol 17 gm 04/23/20 06:00 04/23/20 06:22 Miralax PO Not Given DAILY [facility] Polysaccharide Iron Complex 150 mg 04/23/20 08:00 04/23/20 08:28 Ferrex 150 PO 150 mg BIDCM [facility] Administration Senna/Docusate Sodium 2 tablet 04/22/20 18:00 04/23/20 06:20 Senokot-S, Kassy-Colace PO 2 tablet BID [facility] Administration Tamsulosin HCl 0.4 mg 04/22/20 17:30 04/22/20 18:21 Flomax PO 0.4 mg DAILY@1730 [facility] Administration Tuberculin PPD 5 tu 04/30/20 10:00 Tubersol, Aplisol, Ppd ID 04/30/20 10:01 X1 ONE Problem List (Last Reviewed 04/03/20 @ 11:33 by Anika Choudhary) Iron deficiency anemia (Acute) Vital Signs Temp Pulse Resp BP Pulse Ox 97.4 F L 84 14 111/66 95 04/23/20 13:57 04/23/20 13:57 04/23/20 13:57 04/23/20 13:57 04/23/20 13:57 Oxygen Delivery Method Room Air Weight: 57.425 kg Body Mass Index (BMI) 21.7 Finger Stick Blood Glucose 106 Sodium 138 mmol/L (136-145) 04/23/20 05:05 Potassium 4.0 mmol/L (3.5-5.1) 04/23/20 05:05 Chloride 107 mmol/L (98-107) 04/23/20 05:05 Carbon Dioxide 25.0 mmol/L (21.0-32.0) 04/23/20 05:05 Anion Gap 6 (5-15) 04/23/20 05:05 BUN 18 mg/dL (7-18) 04/23/20 05:05 Creatinine 0.88 mg/dL (0.55-1.02) 04/23/20 05:05 Est GFR (MDRD) Af Amer 80 mL/min (>60) 04/23/20 05:05 Est GFR (MDRD) Non-Af 66 mL/min (>60) 04/23/20 05:05 BUN/Creatinine Ratio 20.4 RATIO (10-20) H 04/23/20 05:05 Glucose 106 mg/dL (74-106) 04/23/20 05:05 Assessment/Plan: Psychotropic Medications: Unnecessary Medications: Bowel Regimen: - Provider Comments Provider responsibility: Provider responsible to enter orders to implement recommendations Provider Comments to Recommendations by Pharmacy: Agree
[2020-04-23] MEDS: Ciprofloxacin 250 MG Tablet PO (18:02)
[2020-04-23] MEDS: Tamsulosin HCl 0.4 MG Capsule PO (18:05)
--- NOTE | 2020-04-23 18:30 | RAD_ITS ---
STUDY: X-RAY CHEST REASON FOR EXAM: Female, 75 years old. Coughing. TECHNIQUE: AP and lateral views of the chest. COMPARISON: 04/20/2020. FINDINGS: The lungs are clear and expanded. There is no demonstrated pleural abnormality. Normal size heart. Normal mediastinum and shashi. Normal visualized pulmonary arteries. Normal visualized aortic arch and descending thoracic aorta. Normal visualized thoracic spine. Normal visualized ribs, clavicles, and shoulders. There is no demonstrated abnormality of the visualized soft tissue structures of the upper abdomen. RAD/Chest PA and Lateral IMPRESSION: No acute cardiopulmonary disease or major interval change. Electronically Signed: Sebastien Albright DO at 19:14 EDT Tel [phone], Service support ,
--- NOTE | 2020-04-23 19:26 | NURSING ---
pt alarm going off. found pt on edge of recliner. asked pt what she needed,pt stated she had to pee. emplaned to pt that she had a botello and reoriented pt to call light.
[2020-04-23] MEDS: Atorvastatin Calcium 80 MG Tablet PO (21:08)
[2020-04-23 21:11] VITALS: PULSE 88; RESP 16; O2SAT 95
[2020-04-24] MEDS: Mirabegron 25 MG TAB.ER.24H PO (06:02)
[2020-04-24] MEDS: Ciprofloxacin 250 MG Tablet PO ×2 (06:02→16:44)
[2020-04-24] MEDS: Senna/Docusate Sodium 1 Tablet 2 TABLET PO (06:02)
[2020-04-24] MEDS: Escitalopram Oxalate 10 MG Tablet PO (06:03)
[2020-04-24] MEDS: Pantoprazole Sodium 40 MG Tablet PO (06:03)
[2020-04-24] MEDS: levETIRAcetam 1,000 MG Tablet 1000 MG PO ×2 (06:03→16:44)
[2020-04-24] MEDS: buPROPion (SR) 150 MG Tablet.SA PO ×2 (06:03→16:45)
[2020-04-24] MEDS: Enoxaparin 40 MG/0.4 ML Syringe SC (06:04)
[2020-04-24] MEDS: Polyethylene Glycol 3350 17 GM PACKET PO (06:04)
[2020-04-24] MEDS: Menthol/Lanolin/Calamine/Znox 113 GM Tube 1 APPLIC TOPICAL ×2 (06:04→16:44)
[2020-04-24 06:15] VITALS: BP 108/41; BP 110/34; PULSE 88; PULSE 90; RESP 16; TEMP 36.4; O2SAT 96
[2020-04-24] MEDS: Multivitamins,Ther W-Minerals Tablet 1 TABLET PO (08:30)
[2020-04-24] MEDS: Gabapentin 100 MG Capsule PO ×2 (08:30→16:43)
[2020-04-24] MEDS: dexAMETHasone 4 MG Tablet 40 MG PO (08:30)
[2020-04-24] MEDS: Iron Polysaccharide Complex 150 MG CAPSULE PO ×2 (08:30→16:43)
[2020-04-24] MEDS: Calcium Carbonate 500 MG Tablet 1000 MG PO (08:31)
[2020-04-24] MEDS: oxyCODONE 5 MG Tablet PO (09:41)
--- NOTE | 2020-04-24 11:37 | NURSING ---
58 hannah and 2 sutures removed from scalp today per order. Pt tolerated well, incision site remains well approximated and free from any active draining.
[2020-04-24 13:23] VITALS: BP 102/65; PULSE 88; RESP 14; TEMP 36.6; O2SAT 95
[2020-04-24 13:55] LABS: Pathologist Review Reviewed
[2020-04-24] MEDS: Tamsulosin HCl 0.4 MG Capsule PO (16:43)
[2020-04-24 21:38] VITALS: PULSE 86; RESP 16; O2SAT 96
[2020-04-24] MEDS: Atorvastatin Calcium 80 MG Tablet PO (21:39)
[2020-04-25 05:00] VITALS: BP 119/56; PULSE 80; RESP 16; TEMP 36.6; O2SAT 96
[2020-04-25] MEDS: Ciprofloxacin 250 MG Tablet PO ×2 (06:05→17:53)
[2020-04-25] MEDS: levETIRAcetam 1,000 MG Tablet 1000 MG PO ×2 (06:05→17:53)
[2020-04-25] MEDS: Senna/Docusate Sodium 1 Tablet 2 TABLET PO ×2 (06:05→17:53)
[2020-04-25] MEDS: Enoxaparin 40 MG/0.4 ML Syringe SC (06:05)
[2020-04-25] MEDS: Escitalopram Oxalate 10 MG Tablet PO (06:06)
[2020-04-25] MEDS: Polyethylene Glycol 3350 17 GM PACKET PO (06:06)
[2020-04-25] MEDS: Pantoprazole Sodium 40 MG Tablet PO (06:06)
[2020-04-25] MEDS: Mirabegron 25 MG TAB.ER.24H PO (06:06)
[2020-04-25] MEDS: buPROPion (SR) 150 MG Tablet.SA PO ×2 (06:07→17:53)
[2020-04-25] MEDS: Menthol/Lanolin/Calamine/Znox 113 GM Tube 1 APPLIC TOPICAL ×2 (06:09→17:57)
[2020-04-25] MEDS: Calcium Carbonate 500 MG Tablet 1000 MG PO (08:26)
[2020-04-25] MEDS: Gabapentin 100 MG Capsule PO ×2 (08:26→17:53)
[2020-04-25] MEDS: Multivitamins,Ther W-Minerals Tablet 1 TABLET PO (08:26)
[2020-04-25] MEDS: Iron Polysaccharide Complex 150 MG CAPSULE PO ×2 (08:26→17:53)
[2020-04-25 10:00] VITALS: PULSE 62; RESP 16; O2SAT 95
[2020-04-25 15:34] VITALS: BP 90/50; PULSE 82; RESP 18; TEMP 36.5; O2SAT 97
--- NOTE | 2020-04-25 16:16 | NURSING ---
Hair on right side of head was washed with shampoo cap and combed, pt tolerated well
[2020-04-25] MEDS: Tamsulosin HCl 0.4 MG Capsule PO (17:53)
[2020-04-25] MEDS: Atorvastatin Calcium 80 MG Tablet PO (21:58)
[2020-04-26 05:00] VITALS: BP 102/36; PULSE 88; RESP 16; TEMP 36.6; O2SAT 94
[2020-04-26] MEDS: Escitalopram Oxalate 10 MG Tablet PO (06:05)
[2020-04-26] MEDS: Pantoprazole Sodium 40 MG Tablet PO (06:05)
[2020-04-26] MEDS: Ciprofloxacin 250 MG Tablet PO ×2 (06:05→17:06)
[2020-04-26] MEDS: levETIRAcetam 1,000 MG Tablet 1000 MG PO ×2 (06:05→17:06)
[2020-04-26] MEDS: Senna/Docusate Sodium 1 Tablet 2 TABLET PO ×2 (06:05→17:06)
[2020-04-26] MEDS: Enoxaparin 40 MG/0.4 ML Syringe SC (06:05)
[2020-04-26] MEDS: Mirabegron 25 MG TAB.ER.24H PO (06:05)
[2020-04-26] MEDS: Menthol/Lanolin/Calamine/Znox 113 GM Tube 1 APPLIC TOPICAL ×2 (06:18→17:06)
[2020-04-26] MEDS: Polyethylene Glycol 3350 17 GM PACKET PO (06:29)
[2020-04-26] MEDS: Calcium Carbonate 500 MG Tablet 1000 MG PO (07:58)
[2020-04-26] MEDS: Multivitamins,Ther W-Minerals Tablet 1 TABLET PO (07:58)
[2020-04-26] MEDS: buPROPion (SR) 150 MG Tablet.SA PO ×2 (07:58→17:06)
[2020-04-26] MEDS: Gabapentin 100 MG Capsule PO ×2 (07:58→16:42)
[2020-04-26] MEDS: Iron Polysaccharide Complex 150 MG CAPSULE PO ×2 (07:58→16:42)
[2020-04-26 14:11] VITALS: BP 94/53; PULSE 84; RESP 18; TEMP 36.9; O2SAT 94
[2020-04-26] MEDS: oxyCODONE 5 MG Tablet PO (16:41)
[2020-04-26] MEDS: Tamsulosin HCl 0.4 MG Capsule PO (16:42)
[2020-04-26] MEDS: Atorvastatin Calcium 80 MG Tablet PO (20:53)
[2020-04-26 21:07] VITALS: BP 100/30; BP 102/40
--- NOTE | 2020-04-26 21:07 | NURSING ---
Per dayshift pts blood pressure has been running low. This nurse checked bp. see vital documentation. Pt still stating she has a slight headache that has not changed since admission. Dr. Steven updated. Continue to monitor.
[2020-04-27 05:00] VITALS: BP 106/35; PULSE 84; RESP 18; TEMP 37; O2SAT 93
[2020-04-27] MEDS: Polyethylene Glycol 3350 17 GM PACKET PO (06:14)
[2020-04-27] MEDS: levETIRAcetam 1,000 MG Tablet 1000 MG PO ×2 (06:15→17:33)
[2020-04-27] MEDS: Enoxaparin 40 MG/0.4 ML Syringe SC (06:15)
[2020-04-27] MEDS: Escitalopram Oxalate 10 MG Tablet PO (06:15)
[2020-04-27] MEDS: Ciprofloxacin 250 MG Tablet PO ×2 (06:15→17:32)
[2020-04-27] MEDS: Mirabegron 25 MG TAB.ER.24H PO (06:16)
[2020-04-27] MEDS: buPROPion (SR) 150 MG Tablet.SA PO ×2 (06:16→17:34)
[2020-04-27] MEDS: Senna/Docusate Sodium 1 Tablet 2 TABLET PO ×2 (06:16→17:33)
[2020-04-27] MEDS: Pantoprazole Sodium 40 MG Tablet PO (06:16)
[2020-04-27] MEDS: Menthol/Lanolin/Calamine/Znox 113 GM Tube 1 APPLIC TOPICAL ×2 (06:20→17:34)
[2020-04-27] MEDS: Multivitamins,Ther W-Minerals Tablet 1 TABLET PO (08:46)
[2020-04-27] MEDS: Gabapentin 100 MG Capsule PO ×2 (08:46→17:32)
[2020-04-27] MEDS: Calcium Carbonate 500 MG Tablet 1000 MG PO (08:46)
[2020-04-27] MEDS: Iron Polysaccharide Complex 150 MG CAPSULE PO ×2 (08:46→17:32)
[2020-04-27] MEDS: oxyCODONE 5 MG Tablet PO (11:29)
[2020-04-27 12:50] VITALS: PULSE 78; RESP 18; O2SAT 97
[2020-04-27 14:47] VITALS: BP 114/53; PULSE 83; RESP 17; TEMP 37; O2SAT 97
[2020-04-27] MEDS: Tamsulosin HCl 0.4 MG Capsule PO (17:33)
[2020-04-27] MEDS: Atorvastatin Calcium 80 MG Tablet PO (20:59)
[2020-04-28 05:00] VITALS: BP 105/44; PULSE 83; RESP 15; TEMP 36.9; O2SAT 93
[2020-04-28] MEDS: Pantoprazole Sodium 40 MG Tablet PO (05:26)
[2020-04-28] MEDS: Senna/Docusate Sodium 1 Tablet 2 TABLET PO ×2 (05:26→18:00)
[2020-04-28] MEDS: levETIRAcetam 1,000 MG Tablet 1000 MG PO ×2 (05:26→17:59)
[2020-04-28] MEDS: Mirabegron 25 MG TAB.ER.24H PO (05:26)
[2020-04-28] MEDS: Escitalopram Oxalate 10 MG Tablet PO (05:26)
[2020-04-28] MEDS: Ciprofloxacin 250 MG Tablet PO ×2 (05:26→17:59)
[2020-04-28] MEDS: Polyethylene Glycol 3350 17 GM PACKET PO (05:26)
[2020-04-28] MEDS: Enoxaparin 40 MG/0.4 ML Syringe SC (05:26)
[2020-04-28] MEDS: buPROPion (SR) 150 MG Tablet.SA PO ×2 (05:26→18:00)
[2020-04-28] MEDS: Menthol/Lanolin/Calamine/Znox 113 GM Tube 1 APPLIC TOPICAL ×2 (05:29→18:00)
[2020-04-28] MEDS: Calcium Carbonate 500 MG Tablet 1000 MG PO (08:02)
[2020-04-28] MEDS: Gabapentin 100 MG Capsule PO ×2 (08:02→17:59)
[2020-04-28] MEDS: Multivitamins,Ther W-Minerals Tablet 1 TABLET PO (08:02)
[2020-04-28] MEDS: Iron Polysaccharide Complex 150 MG CAPSULE PO ×2 (08:02→17:59)
[2020-04-28 14:03] VITALS: BP 99/37; PULSE 89; RESP 18; TEMP 36.7; O2SAT 94
--- NOTE | 2020-04-28 14:52 | NURSING ---
called family to update on pt. no answer,left message.
[2020-04-28 16:38] VITALS: BP 112/43; PULSE 80
[2020-04-28] MEDS: Tamsulosin HCl 0.4 MG Capsule PO (17:59)
[2020-04-28] MEDS: Atorvastatin Calcium 80 MG Tablet PO (20:09)
[2020-04-29 05:00] VITALS: BP 100/34; PULSE 81; RESP 18; TEMP 36.6; O2SAT 95
[2020-04-29] MEDS: Menthol/Lanolin/Calamine/Znox 113 GM Tube 1 APPLIC TOPICAL ×2 (05:19→17:15)
[2020-04-29] MEDS: Polyethylene Glycol 3350 17 GM PACKET PO (05:20)
[2020-04-29] MEDS: Senna/Docusate Sodium 1 Tablet 2 TABLET PO ×2 (05:22→17:12)
[2020-04-29] MEDS: Escitalopram Oxalate 10 MG Tablet PO (05:22)
[2020-04-29] MEDS: Pantoprazole Sodium 40 MG Tablet PO (05:22)
[2020-04-29] MEDS: Enoxaparin 40 MG/0.4 ML Syringe SC (05:22)
[2020-04-29] MEDS: levETIRAcetam 1,000 MG Tablet 1000 MG PO ×2 (05:22→17:12)
[2020-04-29] MEDS: Mirabegron 25 MG TAB.ER.24H PO (05:22)
[2020-04-29] MEDS: Ciprofloxacin 250 MG Tablet PO ×2 (05:22→17:11)
[2020-04-29] MEDS: buPROPion (SR) 150 MG Tablet.SA PO ×2 (05:22→17:11)
[2020-04-29] MEDS: Calcium Carbonate 500 MG Tablet 1000 MG PO (08:10)
[2020-04-29] MEDS: Gabapentin 100 MG Capsule PO ×2 (08:11→17:11)
[2020-04-29] MEDS: Iron Polysaccharide Complex 150 MG CAPSULE PO ×2 (08:11→17:11)
[2020-04-29] MEDS: Multivitamins,Ther W-Minerals Tablet 1 TABLET PO (08:11)
[2020-04-29 09:23] VITALS: PULSE 80; RESP 16; O2SAT 98
[2020-04-29] MEDS: oxyCODONE 5 MG Tablet PO ×2 (11:11→21:04)
[2020-04-29 14:16] VITALS: BP 121/50; PULSE 86; RESP 14; TEMP 36.5; O2SAT 95
--- NOTE | 2020-04-29 14:31 | CASEMGMT ---
Social Work Completed MDS assessment with patient. Pt expressed depressive symptoms, tearful during interview. Pt concerned about her 's health and expressed she is not sure her body is going to make it through this, this time. Discussed about realistic outcomes but that she is still making progress. Pt's cognition varies as well. Provided emotional and verbal support. Spoke with pt's dtr, Nasrin, about alternative DC plans. Dtr stated pt and are officially moved into small condo. No steps, all on first floor, and feel this is a much better set up for pt. However, discussed pt will still need 24/7 care regardless of function due to unsteadiness, risk of falls and cognitive impairment. Expressed concerns with being primary caregiver as his cognition and physically strength is not 100% either. Dtr understood and agreeable to look into hiring some nonskilled aides. Emailed list of nonskilled [facility] agencies. Will continue to follow STEFAN Berry
--- NOTE | 2020-04-29 15:34 | CHAPLAIN ---
Type of Pastoral Visit ___ Initial Visit _x__ Follow-up Visit ___ On-call Visit ___ General Patient Visit ___ Spiritual Assessment ___ Family Conference ___ Bereavement ___ Rapid Response ___ Code Blue ___ Other (describe below) Pastoral Care Referral From _x__ Patient ___ Family ___ Nurse ___ Physician ___ Frame Stripper ___ Hospital Education Coordinator ___ Other (describe below) Sacrament/Intervention _x__ Active listening ___ Anointing ___ Hinduism ___ Bereavement ___ Communion ___ Orly exploration ___ _x__ Life review _x__ Prayer ___ Reconciliation ___ Sacrament of Sick _x__ Supportive presence ___ Wedding ___ Other (describe below) Pastoral Comments patient continues to remember this sleeve sewer each time of visit; pt asks appropriate questions; pt responds to questions although gives cliches or repeats same answer or repeats a phrase this sleeve sewer said in response for different questions; pt describes her feelings like I walked into my closet; pt is open to ongoing spiritual and emotional support
[2020-04-29] MEDS: Tamsulosin HCl 0.4 MG Capsule PO (17:11)
[2020-04-29] MEDS: Atorvastatin Calcium 80 MG Tablet PO (20:59)
[2020-04-29 21:04] VITALS: BP 113/44; PULSE 84; RESP 16; TEMP 36.9; O2SAT 95
[2020-04-29 22:46] VITALS: BP 130/30; PULSE 82
[2020-04-30 06:04] LABS: Absolute Lymphocyte Count 1.18 X10^3/uL (0.83-4.51); Absolute Neutrophil Count 4.1 X10^3/uL (2.0-7.7); Basophil# 0.03 X10^3/uL; Basophil% 0.4 % (0-1); Eosinophil# 0.26 X10^3/uL; Eosinophils% 3.3 % (0-5); Hematocrit 35.5 % (37-47); Hemoglobin 11.1 g/dL (12.0-15.0); Lymphocyte # 1.18 X10^3/ul (4.0); Lymphocyte % 14.9 % (19-41); Mean Corp Hgb Conc 31.3 g/dL (32-36); Mean Corpuscular Hgb 31.8 pg (27.0-32.0); Mean Corpuscular Volume 101.7 fL (81-99); Mean Platelet Vol. 12.7 fl (6.2-12.0); Monocyte# 2.19 X10^3/uL; Monocyte% 27.6 % (0-10); NRBC Flagged by Analyzer 0 % (0-5); Neutrophil # 4.14 X10^3/uL (2.7-7.7); Neutrophil % 52.2 % (47-70); POSITIVE DIFFERENTIAL YES; Platelet Count 160 K/mm3 (150-450); RBC Distribution Width CV 13.2 % (11.6-14.6); RBC Distribution Width SD 49.4 fl (35.1-43.9); Red Blood Count 3.49 M/mm3 (4.2-5.4); White Blood Count 7.9 K/mm3 (4.4-11.0)
[2020-04-30 06:06] VITALS: BP 108/39; PULSE 84; RESP 16; TEMP 36.2; O2SAT 94
[2020-04-30] MEDS: Mirabegron 25 MG TAB.ER.24H PO (06:07)
[2020-04-30] MEDS: Escitalopram Oxalate 10 MG Tablet PO (06:07)
[2020-04-30] MEDS: Ciprofloxacin 250 MG Tablet PO ×2 (06:07→17:51)
[2020-04-30] MEDS: buPROPion (SR) 150 MG Tablet.SA PO ×2 (06:07→17:50)
[2020-04-30] MEDS: Pantoprazole Sodium 40 MG Tablet PO (06:07)
[2020-04-30] MEDS: levETIRAcetam 1,000 MG Tablet 1000 MG PO ×2 (06:07→17:52)
[2020-04-30] MEDS: Enoxaparin 40 MG/0.4 ML Syringe SC (06:08)
[2020-04-30] MEDS: Menthol/Lanolin/Calamine/Znox 113 GM Tube 1 APPLIC TOPICAL ×2 (06:09→17:51)
[2020-04-30 06:27] LABS: Anion Gap 4 (5-15); BUN 21 mg/dL (7-18); BUN/Creat Ratio 24.7 RATIO (10-20); Calcium,Total 8.3 mg/dL (8.5-10.1); Chloride 105 mmol/L (98-107); Creatinine, Serum 0.85 mg/dL (0.55-1.02); EST Glomerular Filtration Rate 69 mL/min (>60); Est Glom Filt Rate - Afr Amer 84 mL/min (>60); Estimated Creatinine Clearance 48.62 ml/min; Glucose 96 mg/dL (74-106); Potassium 4.2 mmol/L (3.5-5.1); Sodium Level 139 mmol/L (136-145)
[2020-04-30 06:28] LABS: Differential Indicated SCAN CRITERIA MET
[2020-04-30] MEDS: Iron Polysaccharide Complex 150 MG CAPSULE PO ×2 (08:43→17:52)
[2020-04-30] MEDS: Multivitamins,Ther W-Minerals Tablet 1 TABLET PO (08:43)
[2020-04-30] MEDS: Calcium Carbonate 500 MG Tablet 1000 MG PO (08:43)
[2020-04-30] MEDS: Gabapentin 100 MG Capsule PO ×2 (08:43→17:52)
[2020-04-30] MEDS: Tuberculin,Purif.prot.deriv. 50 TU/ML Vial 5 ML ID (10:38)
[2020-04-30 13:31] VITALS: BP 94/44; PULSE 85; RESP 14; TEMP 36.9; O2SAT 99
--- NOTE | 2020-04-30 16:28 | NURSING ---
CALLED PT , UPDATED HIM AND HAD TALK TO PT DUE TO PT VERY UPSET AND CRYING STATING SHE CANT TAKE IT ANY MORE. PT STATED STAY STRONG IS CRAP TO . RN AWARE
--- NOTE | 2020-04-30 16:32 | NURSING ---
PT ALSO STATED SHE IS READY TO GIVE UP,TIRED,CANT DO THIS ANY MORE HAVE NO STRENGTH TO KEEP GOING. I JUST WANT TO GET OUT OF HERE. RN AWARE
--- NOTE | 2020-04-30 16:57 | CASEMGMT ---
Social Work Met with patient. Patient tearful and upset with situation. Patient requiring when she can go home. Explored patient's wishes and goals. Inquired about hospice. Pt states she is not ready for hospice but does want to be home and possibly done with therapy. She is tired and doesn't think she can get better. Explained progress takes time and she has been through a lot, but offered to help with DC plans if that is what she wanted. Explained SW spoke with dtr about hiring aides in the home. Pt agreeable to that and if that doesn't take a lot of time she will wait for that to happen so she can go home safely. Offered to discuss her progress and plans at the care plan meeting on the following day then decide the next step. Pt agreeable. Provided ongoing emotional and verbal support. Offered to play music - pt agreed. Will continue to follow. STEFAN Berry
[2020-04-30] MEDS: Senna/Docusate Sodium 1 Tablet 2 TABLET PO (17:52)
[2020-04-30] MEDS: Tamsulosin HCl 0.4 MG Capsule PO (17:52)
[2020-04-30] MEDS: Atorvastatin Calcium 80 MG Tablet PO (19:49)
[2020-05-01 05:00] VITALS: BP 99/33; PULSE 83; RESP 18; TEMP 36.6; O2SAT 95
[2020-05-01] MEDS: Mirabegron 25 MG TAB.ER.24H PO (05:34)
[2020-05-01] MEDS: Pantoprazole Sodium 40 MG Tablet PO (05:34)
[2020-05-01] MEDS: buPROPion (SR) 150 MG Tablet.SA PO ×2 (05:34→17:32)
[2020-05-01] MEDS: Enoxaparin 40 MG/0.4 ML Syringe SC (05:34)
[2020-05-01] MEDS: levETIRAcetam 1,000 MG Tablet 1000 MG PO ×2 (05:34→17:31)
[2020-05-01] MEDS: Escitalopram Oxalate 10 MG Tablet PO (05:34)
[2020-05-01] MEDS: Senna/Docusate Sodium 1 Tablet 2 TABLET PO ×2 (05:34→17:31)
[2020-05-01] MEDS: Menthol/Lanolin/Calamine/Znox 113 GM Tube 1 APPLIC TOPICAL ×2 (05:41→17:32)
[2020-05-01] MEDS: Iron Polysaccharide Complex 150 MG CAPSULE PO ×2 (08:30→17:31)
[2020-05-01] MEDS: Gabapentin 100 MG Capsule PO ×2 (08:30→17:31)
[2020-05-01] MEDS: Multivitamins,Ther W-Minerals Tablet 1 TABLET PO (08:30)
[2020-05-01] MEDS: dexAMETHasone 4 MG Tablet 40 MG PO (08:30)
[2020-05-01] MEDS: Calcium Carbonate 500 MG Tablet 1000 MG PO (08:31)
[2020-05-01 11:23] VITALS: BP 108/51; PULSE 81; RESP 16; TEMP 36.8; O2SAT 96
--- NOTE | 2020-05-01 12:15 | CASEMGMT ---
Social Work IDT met with patient, and two friends via conference call for care plan meeting. Discussed patient's progress in therapy. Pt is SBA for bed mobility, Ish for sit to stands, Ish for tx with FWW. Pt needs assistance w/advancing walker and to continue the tasks once started. Ish to ambulate 40 ft with FWW, very fatigued. Pt needs cues to keep walking as sometimes she forgets what she is doing and stops. Pt is using 2# wts for LE exercises but needs frequent cuing to continue to do the exercises once started. Pt is min for UE dressing, mod/max for LE dressing, toileting modA for clothing and pericare, and has chronic botello. However, pt asks to use the bathroom and forgets she has botello. ST working on cognitive tasks. Pt has poor attention, and initiation of tasks, needs frequent cues and visualization to be reoriented. Pt needs supervision with cues to remind to eat meal. She is at risk to lose weight. Pt is on a regular diet, poor appetite and receiving ensure. Requesting to start appetite stimulant. Pt is out of room isolation 05/06. Pt is to wear helmet out of bed, but has difficulty remembering and often takes it off. Explained medicare benefits. Discussed pt's goals and wishes. Pt wants to go home as soon as possible. IDT recommending 22/03 hands on assist and reiterated hiring nonskilled aides. expressed understanding. Family would like to take pt to appt 05/17 and agreed to have another person assist in car during transfer. Spoke with dtrNasrin, and explained above. Encouraged dtr to begin contacting agencies to secure assistance as pt wants to DC home soon. Dtr understood and appreciative of assistance. Will continue to follow. Heidi Lugo, STEFAN UNIT COORDINATOR
--- NOTE | 2020-05-01 12:28 | PCA ---
During mealtime pt was attempting to feed herself when she reached down on her lap and grabbed her napkin and began eating it, i told pt that that was not an item we can eat and i placed a chip in her hand that she began eating it, pt seems to be different today in comprehension of tasks and staff had to do alot of queing to get pt to eat a little bit of food where pt than became total dependent to eat 50% of meal.
[2020-05-01 13:00] VITALS: PULSE 81; RESP 16; O2SAT 96
[2020-05-01 13:29] VITALS: BP 98/52; PULSE 85; RESP 14; TEMP 36.5; O2SAT 94
--- NOTE | 2020-05-01 13:45 | NURSING ---
up dated on .
--- NOTE | 2020-05-01 14:45 | MDS.RN ---
Information for the mds was obtained from review of the clinical record, interview of resident, staff, and direct observation of resident's care.
[2020-05-01] MEDS: Tamsulosin HCl 0.4 MG Capsule PO (17:31)
[2020-05-01] MEDS: oxyCODONE 5 MG Tablet PO (20:45)
[2020-05-01] MEDS: Atorvastatin Calcium 80 MG Tablet PO (20:46)
[2020-05-01] MEDS: Mirtazapine 15 MG Tablet 7.5 MG PO (20:46)
[2020-05-02 05:00] VITALS: BP 110/39; PULSE 80; RESP 16; TEMP 36.5; O2SAT 93
[2020-05-02] MEDS: Pantoprazole Sodium 40 MG Tablet PO (05:27)
[2020-05-02] MEDS: Mirabegron 25 MG TAB.ER.24H PO (05:27)
[2020-05-02] MEDS: buPROPion (SR) 150 MG Tablet.SA PO ×2 (05:27→16:59)
[2020-05-02] MEDS: Escitalopram Oxalate 10 MG Tablet PO (05:27)
[2020-05-02] MEDS: Senna/Docusate Sodium 1 Tablet 2 TABLET PO ×2 (05:27→16:59)
[2020-05-02] MEDS: levETIRAcetam 1,000 MG Tablet 1000 MG PO ×2 (05:27→16:59)
[2020-05-02] MEDS: Menthol/Lanolin/Calamine/Znox 113 GM Tube 1 APPLIC TOPICAL ×2 (05:27→17:00)
[2020-05-02] MEDS: Enoxaparin 40 MG/0.4 ML Syringe SC (05:29)
[2020-05-02] MEDS: Calcium Carbonate 500 MG Tablet 1000 MG PO (07:50)
[2020-05-02] MEDS: Multivitamins,Ther W-Minerals Tablet 1 TABLET PO (07:50)
[2020-05-02] MEDS: Iron Polysaccharide Complex 150 MG CAPSULE PO ×2 (07:50→16:53)
[2020-05-02] MEDS: Gabapentin 100 MG Capsule PO ×2 (07:51→16:53)
--- NOTE | 2020-05-02 12:44 | CASEMGMT ---
Social Work Spoke with that he can transport pt to appt 05/17, but another family member would need to assist with transfer. Dtr, Nasrin, would be attending as well. would pickling operator about 6 am. STEFAN BerryW
[2020-05-02 13:41] VITALS: BP 105/55; PULSE 93; RESP 17; TEMP 36.1; O2SAT 93
[2020-05-02] MEDS: Tamsulosin HCl 0.4 MG Capsule PO (16:53)
[2020-05-02] MEDS: Mirtazapine 15 MG Tablet 7.5 MG PO (21:35)
[2020-05-02] MEDS: Atorvastatin Calcium 80 MG Tablet PO (21:36)
[2020-05-02 21:39] VITALS: PULSE 88; RESP 16; O2SAT 95
[2020-05-03 05:00] VITALS: BP 106/41; PULSE 78; RESP 16; TEMP 36.8; O2SAT 95
[2020-05-03] MEDS: Enoxaparin 40 MG/0.4 ML Syringe SC (06:22)
[2020-05-03] MEDS: Senna/Docusate Sodium 1 Tablet 2 TABLET PO ×2 (06:23→17:17)
[2020-05-03] MEDS: Mirabegron 25 MG TAB.ER.24H PO (06:24)
[2020-05-03] MEDS: Pantoprazole Sodium 40 MG Tablet PO (06:24)
[2020-05-03] MEDS: buPROPion (SR) 150 MG Tablet.SA PO ×2 (06:24→17:22)
[2020-05-03] MEDS: Escitalopram Oxalate 10 MG Tablet PO (06:24)
[2020-05-03] MEDS: levETIRAcetam 1,000 MG Tablet 1000 MG PO ×2 (06:24→17:17)
[2020-05-03] MEDS: Menthol/Lanolin/Calamine/Znox 113 GM Tube 1 APPLIC TOPICAL ×2 (06:27→17:17)
[2020-05-03] MEDS: Multivitamins,Ther W-Minerals Tablet 1 TABLET PO (08:26)
[2020-05-03] MEDS: Calcium Carbonate 500 MG Tablet 1000 MG PO (08:26)
[2020-05-03] MEDS: Iron Polysaccharide Complex 150 MG CAPSULE PO ×2 (08:26→17:16)
[2020-05-03] MEDS: Gabapentin 100 MG Capsule PO ×2 (08:26→17:16)
[2020-05-03 10:00] VITALS: PULSE 84; RESP 16; O2SAT 96
[2020-05-03 13:58] VITALS: BP 115/65; PULSE 83; RESP 17; TEMP 36.7; O2SAT 96
[2020-05-03] MEDS: Tamsulosin HCl 0.4 MG Capsule PO (17:17)
[2020-05-03] MEDS: Atorvastatin Calcium 80 MG Tablet PO (21:57)
[2020-05-03] MEDS: Mirtazapine 15 MG Tablet 7.5 MG PO (21:57)
[2020-05-04 05:00] VITALS: BP 112/44; PULSE 84; RESP 16; TEMP 36.9; O2SAT 96
[2020-05-04] MEDS: Escitalopram Oxalate 10 MG Tablet PO (05:16)
[2020-05-04] MEDS: Senna/Docusate Sodium 1 Tablet 2 TABLET PO ×2 (05:16→17:26)
[2020-05-04] MEDS: levETIRAcetam 1,000 MG Tablet 1000 MG PO ×2 (05:16→17:26)
[2020-05-04] MEDS: buPROPion (SR) 150 MG Tablet.SA PO ×2 (05:16→17:25)
[2020-05-04] MEDS: Pantoprazole Sodium 40 MG Tablet PO (05:16)
[2020-05-04] MEDS: Mirabegron 25 MG TAB.ER.24H PO (05:16)
[2020-05-04] MEDS: Menthol/Lanolin/Calamine/Znox 113 GM Tube 1 APPLIC TOPICAL ×2 (05:17→17:28)
[2020-05-04] MEDS: Enoxaparin 40 MG/0.4 ML Syringe SC (05:18)
[2020-05-04] MEDS: Calcium Carbonate 500 MG Tablet 1000 MG PO (08:35)
[2020-05-04] MEDS: Gabapentin 100 MG Capsule PO ×2 (08:37→17:25)
[2020-05-04] MEDS: Iron Polysaccharide Complex 150 MG CAPSULE PO ×2 (08:37→17:25)
[2020-05-04] MEDS: Multivitamins,Ther W-Minerals Tablet 1 TABLET PO (08:37)
[2020-05-04 14:00] VITALS: BP 110/48; PULSE 89; RESP 16; TEMP 36.4; O2SAT 96
[2020-05-04] MEDS: Tamsulosin HCl 0.4 MG Capsule PO (17:25)
[2020-05-04 20:39] VITALS: PULSE 94; RESP 16; O2SAT 95
[2020-05-04] MEDS: Atorvastatin Calcium 80 MG Tablet PO (20:39)
[2020-05-04] MEDS: Mirtazapine 15 MG Tablet 7.5 MG PO (20:39)
[2020-05-05 05:00] VITALS: BP 110/40; PULSE 80; RESP 16; TEMP 36.7; O2SAT 96
[2020-05-05] MEDS: Mirabegron 25 MG TAB.ER.24H PO (05:28)
[2020-05-05] MEDS: levETIRAcetam 1,000 MG Tablet 1000 MG PO ×2 (05:28→17:13)
[2020-05-05] MEDS: buPROPion (SR) 150 MG Tablet.SA PO ×2 (05:28→17:13)
[2020-05-05] MEDS: Senna/Docusate Sodium 1 Tablet 2 TABLET PO ×2 (05:28→17:13)
[2020-05-05] MEDS: Pantoprazole Sodium 40 MG Tablet PO (05:28)
[2020-05-05] MEDS: Escitalopram Oxalate 10 MG Tablet PO (05:28)
[2020-05-05] MEDS: Menthol/Lanolin/Calamine/Znox 113 GM Tube 1 APPLIC TOPICAL ×2 (05:29→17:15)
[2020-05-05] MEDS: Enoxaparin 40 MG/0.4 ML Syringe SC (05:30)
[2020-05-05] MEDS: Calcium Carbonate 500 MG Tablet 1000 MG PO (07:54)
[2020-05-05] MEDS: Multivitamins,Ther W-Minerals Tablet 1 TABLET PO (07:55)
[2020-05-05] MEDS: Iron Polysaccharide Complex 150 MG CAPSULE PO ×2 (07:55→17:12)
[2020-05-05] MEDS: Gabapentin 100 MG Capsule PO ×2 (07:55→17:13)
[2020-05-05 13:57] VITALS: BP 103/55; PULSE 70; RESP 16; TEMP 36.6; O2SAT 96
[2020-05-05] MEDS: Tamsulosin HCl 0.4 MG Capsule PO (17:13)
[2020-05-05] MEDS: Mirtazapine 15 MG Tablet 7.5 MG PO (20:27)
[2020-05-05] MEDS: Atorvastatin Calcium 80 MG Tablet PO (20:27)
[2020-05-05 20:30] VITALS: PULSE 84; RESP 16; O2SAT 98
[2020-05-06 05:00] VITALS: BP 108/45; PULSE 77; RESP 16; TEMP 36.4; O2SAT 95
[2020-05-06] MEDS: Menthol/Lanolin/Calamine/Znox 113 GM Tube 1 APPLIC TOPICAL ×2 (05:17→17:46)
[2020-05-06] MEDS: buPROPion (SR) 150 MG Tablet.SA PO ×2 (05:19→17:40)
[2020-05-06] MEDS: Enoxaparin 40 MG/0.4 ML Syringe SC (05:19)
[2020-05-06] MEDS: Senna/Docusate Sodium 1 Tablet 2 TABLET PO ×2 (05:19→17:39)
[2020-05-06] MEDS: Mirabegron 25 MG TAB.ER.24H PO (05:19)
[2020-05-06] MEDS: Escitalopram Oxalate 10 MG Tablet PO (05:19)
[2020-05-06] MEDS: Pantoprazole Sodium 40 MG Tablet PO (05:19)
[2020-05-06] MEDS: levETIRAcetam 1,000 MG Tablet 1000 MG PO ×2 (05:19→17:39)
[2020-05-06] MEDS: Gabapentin 100 MG Capsule PO ×2 (07:48→17:39)
[2020-05-06] MEDS: Calcium Carbonate 500 MG Tablet 1000 MG PO (07:48)
[2020-05-06] MEDS: Multivitamins,Ther W-Minerals Tablet 1 TABLET PO (07:48)
[2020-05-06] MEDS: Iron Polysaccharide Complex 150 MG CAPSULE PO ×2 (07:48→17:40)
[2020-05-06 09:56] VITALS: RESP 16; O2SAT 96
[2020-05-06 15:12] VITALS: BP 130/54; PULSE 63; RESP 18; TEMP 35.8; O2SAT 96
[2020-05-06] MEDS: Tamsulosin HCl 0.4 MG Capsule PO (17:39)
[2020-05-06] MEDS: Mirtazapine 15 MG Tablet 7.5 MG PO (20:51)
[2020-05-06] MEDS: Atorvastatin Calcium 80 MG Tablet PO (20:51)
[2020-05-07 04:44] VITALS: BP 103/36; PULSE 78; RESP 18; TEMP 36.6; O2SAT 94
[2020-05-07] MEDS: Enoxaparin 40 MG/0.4 ML Syringe SC (04:46)
[2020-05-07] MEDS: Escitalopram Oxalate 10 MG Tablet PO (04:47)
[2020-05-07] MEDS: levETIRAcetam 1,000 MG Tablet 1000 MG PO ×2 (04:47→17:48)
[2020-05-07] MEDS: buPROPion (SR) 150 MG Tablet.SA PO ×2 (04:47→17:48)
[2020-05-07] MEDS: Senna/Docusate Sodium 1 Tablet 2 TABLET PO ×2 (04:47→17:49)
[2020-05-07] MEDS: Pantoprazole Sodium 40 MG Tablet PO (04:47)
[2020-05-07] MEDS: Menthol/Lanolin/Calamine/Znox 113 GM Tube 1 APPLIC TOPICAL ×2 (04:48→17:56)
[2020-05-07] MEDS: Mirabegron 25 MG TAB.ER.24H PO (04:48)
[2020-05-07 05:20] LABS: Absolute Lymphocyte Count 1.19 X10^3/uL (0.83-4.51); Basophil# 0.02 X10^3/uL; Basophil% 0.2 % (0-1); Differential Indicated SCAN CRITERIA MET; Eosinophil# 0.35 X10^3/uL; Eosinophils% 4.3 % (0-5); Hematocrit 33.9 % (37-47); Hemoglobin 10.9 g/dL (12.0-15.0); Lymphocyte # 1.19 X10^3/ul (4.0); Lymphocyte % 14.8 % (19-41); Mean Corp Hgb Conc 32.2 g/dL (32-36); Mean Corpuscular Hgb 32.7 pg (27.0-32.0); Mean Corpuscular Volume 101.8 fL (81-99); Monocyte# 2.34 X10^3/uL; Monocyte% 29.1 % (0-10); NRBC Flagged by Analyzer 0 % (0-5); Neutrophil # 4.01 X10^3/uL (2.7-7.7); Neutrophil % 49.9 % (47-70); POSITIVE DIFFERENTIAL YES; Platelet Count 171 K/mm3 (150-450); RBC Distribution Width CV 13.2 % (11.6-14.6); RBC Distribution Width SD 49.3 fl (35.1-43.9); Red Blood Count 3.33 M/mm3 (4.2-5.4); White Blood Count 8.1 K/mm3 (4.4-11.0)
[2020-05-07 05:32] LABS: BUN 25 mg/dL (7-18); Creatinine, Serum 0.82 mg/dL (0.55-1.02); Glucose 96 mg/dL (74-106)
[2020-05-07 05:33] LABS: Anion Gap 3 (5-15); BUN/Creat Ratio 30.6 RATIO (10-20); Calcium,Total 8.3 mg/dL (8.5-10.1); Chloride 108 mmol/L (98-107); EST Glomerular Filtration Rate 72 mL/min (>60); Est Glom Filt Rate - Afr Amer 88 mL/min (>60); Potassium 4.3 mmol/L (3.5-5.1); Sodium Level 142 mmol/L (136-145)
[2020-05-07 05:41] LABS: Differential Comment SCANNED
[2020-05-07] MEDS: Calcium Carbonate 500 MG Tablet 1000 MG PO (07:57)
[2020-05-07] MEDS: Iron Polysaccharide Complex 150 MG CAPSULE PO ×2 (07:57→17:49)
[2020-05-07] MEDS: Gabapentin 100 MG Capsule PO ×2 (07:57→17:49)
[2020-05-07] MEDS: Multivitamins,Ther W-Minerals Tablet 1 TABLET PO (07:57)
[2020-05-07 13:57] VITALS: BP 108/55; PULSE 86; RESP 17; TEMP 36.3; O2SAT 95
--- NOTE | 2020-05-07 14:04 | NURSING ---
UP DATED THIS MORNING.
--- NOTE | 2020-05-07 16:25 | CASEMGMT ---
Social Work Left message with dtr Nasrin to discuss pt's needs and DC plans. Will await return call. Heidi Lugo, DIGITAL SALES ASSISTANT HEEL SPRAYER
[2020-05-07] MEDS: Tamsulosin HCl 0.4 MG Capsule PO (17:49)
[2020-05-07] MEDS: Mirtazapine 15 MG Tablet 7.5 MG PO (21:31)
[2020-05-07] MEDS: Atorvastatin Calcium 80 MG Tablet PO (21:31)
[2020-05-08 05:00] VITALS: BP 106/55; PULSE 75; RESP 18; TEMP 36.8; O2SAT 93
[2020-05-08] MEDS: Escitalopram Oxalate 10 MG Tablet PO (05:13)
[2020-05-08] MEDS: Mirabegron 25 MG TAB.ER.24H PO (05:13)
[2020-05-08] MEDS: Pantoprazole Sodium 40 MG Tablet PO (05:13)
[2020-05-08] MEDS: Senna/Docusate Sodium 1 Tablet 2 TABLET PO ×2 (05:13→17:58)
[2020-05-08] MEDS: levETIRAcetam 1,000 MG Tablet 1000 MG PO ×2 (05:14→17:58)
[2020-05-08] MEDS: buPROPion (SR) 150 MG Tablet.SA PO ×2 (05:14→17:58)
[2020-05-08] MEDS: Menthol/Lanolin/Calamine/Znox 113 GM Tube 1 APPLIC TOPICAL ×2 (05:14→18:07)
[2020-05-08] MEDS: Enoxaparin 40 MG/0.4 ML Syringe SC (05:14)
[2020-05-08] MEDS: Calcium Carbonate 500 MG Tablet 1000 MG PO (08:15)
[2020-05-08] MEDS: dexAMETHasone 4 MG Tablet 40 MG PO (08:15)
[2020-05-08] MEDS: Iron Polysaccharide Complex 150 MG CAPSULE PO ×2 (08:15→17:58)
[2020-05-08] MEDS: Multivitamins,Ther W-Minerals Tablet 1 TABLET PO (08:15)
[2020-05-08] MEDS: Gabapentin 100 MG Capsule PO ×2 (08:15→17:58)
[2020-05-08 10:40] VITALS: PULSE 81; RESP 18; O2SAT 97
[2020-05-08 10:42] VITALS: PULSE 81; RESP 16; TEMP 36.6; O2SAT 97
[2020-05-08] MEDS: Polyethylene Glycol 3350 17 GM PACKET PO (10:45)
--- NOTE | 2020-05-08 10:53 | NURSING ---
PT THREW UP BREAKFAST. ASSESSMENT DONE,VITALS. RN AWARE.
[2020-05-08 11:48] VITALS: BP 139/53; PULSE 83; RESP 16; O2SAT 96
[2020-05-08] MEDS: Meclizine HCl 25 MG Tablet PO (11:52)
--- NOTE | 2020-05-08 11:54 | NURSING ---
PT FEELING DIZZY AND NAUSEATED. VITALS DONE. PRN ANTIVERT GIVEN. WILL CONTINUE TO MONITOR. RN AWARE.
[2020-05-08 14:26] VITALS: BP 114/56; PULSE 93; RESP 16; TEMP 36.9; O2SAT 97
--- NOTE | 2020-05-08 16:14 | NURSING ---
UP DATED ON PT.
[2020-05-08] MEDS: Tamsulosin HCl 0.4 MG Capsule PO (17:58)
[2020-05-08] MEDS: Atorvastatin Calcium 80 MG Tablet PO (20:18)
[2020-05-08] MEDS: Mirtazapine 15 MG Tablet 7.5 MG PO (20:18)
[2020-05-08] MEDS: Bisacodyl 10 MG Suppository RECTAL (20:25)
[2020-05-09 05:00] VITALS: BP 121/71; PULSE 84; RESP 16; TEMP 36.8; O2SAT 95
[2020-05-09] MEDS: Menthol/Lanolin/Calamine/Znox 113 GM Tube 1 APPLIC TOPICAL ×2 (06:05→17:24)
[2020-05-09] MEDS: Polyethylene Glycol 3350 17 GM PACKET PO (06:05)
[2020-05-09] MEDS: Enoxaparin 40 MG/0.4 ML Syringe SC (06:06)
[2020-05-09] MEDS: Pantoprazole Sodium 40 MG Tablet PO (06:06)
[2020-05-09] MEDS: buPROPion (SR) 150 MG Tablet.SA PO ×2 (06:06→17:23)
[2020-05-09] MEDS: levETIRAcetam 1,000 MG Tablet 1000 MG PO ×2 (06:06→17:23)
[2020-05-09] MEDS: Mirabegron 25 MG TAB.ER.24H PO (06:07)
[2020-05-09] MEDS: Senna/Docusate Sodium 1 Tablet 2 TABLET PO ×2 (06:07→17:22)
[2020-05-09] MEDS: Escitalopram Oxalate 10 MG Tablet PO (06:07)
[2020-05-09] MEDS: Gabapentin 100 MG Capsule PO ×2 (08:25→16:24)
[2020-05-09] MEDS: Multivitamins,Ther W-Minerals Tablet 1 TABLET PO (08:25)
[2020-05-09] MEDS: Calcium Carbonate 500 MG Tablet 1000 MG PO (08:25)
[2020-05-09] MEDS: Iron Polysaccharide Complex 150 MG CAPSULE PO ×2 (08:26→16:24)
[2020-05-09 14:16] VITALS: BP 101/56; PULSE 78; RESP 16; TEMP 36.7; O2SAT 98
[2020-05-09] MEDS: Tamsulosin HCl 0.4 MG Capsule PO (17:22)
[2020-05-09] MEDS: Mirtazapine 15 MG Tablet 7.5 MG PO (22:13)
[2020-05-09] MEDS: Atorvastatin Calcium 80 MG Tablet PO (22:13)
[2020-05-10 05:00] VITALS: BP 114/63; PULSE 73; RESP 16; TEMP 36.6; O2SAT 96
[2020-05-10] MEDS: buPROPion (SR) 150 MG Tablet.SA PO ×2 (05:09→17:31)
[2020-05-10] MEDS: Pantoprazole Sodium 40 MG Tablet PO (05:09)
[2020-05-10] MEDS: Enoxaparin 40 MG/0.4 ML Syringe SC (05:09)
[2020-05-10] MEDS: Senna/Docusate Sodium 1 Tablet 2 TABLET PO ×2 (05:09→17:31)
[2020-05-10] MEDS: Mirabegron 25 MG TAB.ER.24H PO (05:09)
[2020-05-10] MEDS: Escitalopram Oxalate 10 MG Tablet PO (05:10)
[2020-05-10] MEDS: Menthol/Lanolin/Calamine/Znox 113 GM Tube 1 APPLIC TOPICAL ×2 (05:10→17:35)
[2020-05-10] MEDS: levETIRAcetam 1,000 MG Tablet 1000 MG PO ×2 (05:10→17:30)
[2020-05-10] MEDS: Calcium Carbonate 500 MG Tablet 1000 MG PO (08:22)
[2020-05-10] MEDS: Iron Polysaccharide Complex 150 MG CAPSULE PO ×2 (08:22→17:31)
[2020-05-10] MEDS: Gabapentin 100 MG Capsule PO ×2 (08:22→17:31)
[2020-05-10] MEDS: Multivitamins,Ther W-Minerals Tablet 1 TABLET PO ×2 (08:22)
[2020-05-10 10:40] VITALS: PULSE 85; RESP 16; O2SAT 95
[2020-05-10 13:20] VITALS: BP 145/63; PULSE 87; RESP 18; TEMP 36.7; O2SAT 96
--- NOTE | 2020-05-10 13:32 | NURSING ---
AT 1305 THIS NURSE HEARD A ALARM GOING OFF. RAN INTO PT ROOM AND FOUND PT SITTING ON HER BUTT ON FLOOR. PT STATED ONLY HER BOTTOM WAS HURTING. NO SIGNS OF BRUSEING OR CUTS/SKIN TEARS AT THIS TIME. ASKED PT IF SHE HIT HER HEAD. PT STATED NO. VITALS DONE. DYSIN APPLIED TO CHAIR PT HELPED BACK TO CHAIR BY STAFF. ASKED PT WHERE SHE WAS GOING,PT STATED SHE HAD TO PEE. REORIENTED PT THAT SHE HAS CATHETER AND TO CALL LIGHT. PT STATED I KNOW I HAVE ONE,I DONT WANT TO PEE ON THE TOILET. [id number] REJI AND FAMILY NOTIFIED. RN AWARE, WILL CONTINUE TO MONITOR.
[2020-05-10 14:20] VITALS: BP 109/42; PULSE 85; RESP 16; TEMP 36.6; O2SAT 95
--- NOTE | 2020-05-10 15:12 | NURSING ---
FAMILY UP DATED.
[2020-05-10] MEDS: Bisacodyl 10 MG Suppository RECTAL (15:23)
--- NOTE | 2020-05-10 16:29 | NURSING ---
PT CONSTIPATED,UP SET SHE CANT GO. PRN SUPPOSITORY GIVEN WITH NO RESULTS. PT CRYING STATED HER BUTT WAS HURTING AND COUDNT HAVE A BM. Was called AND SOAP SUDS ORDER WAS GIVEN. POSITIVE SMALL HARD. WILL CONTINUE TO MONITOR,RN AWARE.
[2020-05-10] MEDS: Tamsulosin HCl 0.4 MG Capsule PO (17:31)
[2020-05-10] MEDS: Polyethylene Glycol 3350 17 GM PACKET PO (17:32)
[2020-05-10] MEDS: Mirtazapine 15 MG Tablet 7.5 MG PO (22:11)
[2020-05-10] MEDS: Atorvastatin Calcium 80 MG Tablet PO (22:11)
[2020-05-11 03:32] VITALS: BP 109/50; PULSE 84; RESP 15; TEMP 37.1; O2SAT 97
[2020-05-11] MEDS: buPROPion (SR) 150 MG Tablet.SA PO ×2 (03:39→18:27)
[2020-05-11] MEDS: Senna/Docusate Sodium 1 Tablet 2 TABLET PO ×2 (03:39→18:27)
[2020-05-11] MEDS: Menthol/Lanolin/Calamine/Znox 113 GM Tube 1 APPLIC TOPICAL ×2 (03:40→18:30)
[2020-05-11] MEDS: Pantoprazole Sodium 40 MG Tablet PO (03:40)
[2020-05-11] MEDS: levETIRAcetam 1,000 MG Tablet 1000 MG PO ×2 (03:40→18:27)
[2020-05-11] MEDS: Mirabegron 25 MG TAB.ER.24H PO (03:40)
[2020-05-11] MEDS: Escitalopram Oxalate 10 MG Tablet PO (03:40)
[2020-05-11] MEDS: Enoxaparin 40 MG/0.4 ML Syringe SC (03:42)
[2020-05-11] MEDS: Polyethylene Glycol 3350 17 GM PACKET PO (03:47)
[2020-05-11] MEDS: Calcium Carbonate 500 MG Tablet 1000 MG PO (08:48)
[2020-05-11] MEDS: Gabapentin 100 MG Capsule PO ×2 (08:49→18:27)
[2020-05-11] MEDS: Iron Polysaccharide Complex 150 MG CAPSULE PO ×2 (08:49→18:27)
[2020-05-11 14:14] VITALS: BP 111/41; PULSE 89; RESP 14; TEMP 36.6; O2SAT 95
[2020-05-11] MEDS: Tamsulosin HCl 0.4 MG Capsule PO (18:27)
[2020-05-11] MEDS: Atorvastatin Calcium 80 MG Tablet PO (21:01)
[2020-05-11] MEDS: Mirtazapine 15 MG Tablet 7.5 MG PO (21:03)
[2020-05-11 21:10] VITALS: PULSE 84; RESP 18; O2SAT 98
[2020-05-12 05:00] VITALS: BP 101/52; PULSE 72; RESP 16; TEMP 36.9; O2SAT 95
[2020-05-12] MEDS: Menthol/Lanolin/Calamine/Znox 113 GM Tube 1 APPLIC TOPICAL ×2 (05:26→17:56)
[2020-05-12] MEDS: Senna/Docusate Sodium 1 Tablet 2 TABLET PO (05:27)
[2020-05-12] MEDS: Pantoprazole Sodium 40 MG Tablet PO (05:27)
[2020-05-12] MEDS: Escitalopram Oxalate 10 MG Tablet PO (05:27)
[2020-05-12] MEDS: Polyethylene Glycol 3350 17 GM PACKET PO (05:27)
[2020-05-12] MEDS: Mirabegron 25 MG TAB.ER.24H PO (05:27)
[2020-05-12] MEDS: levETIRAcetam 1,000 MG Tablet 1000 MG PO ×2 (05:27→17:56)
[2020-05-12] MEDS: Enoxaparin 40 MG/0.4 ML Syringe SC (05:27)
[2020-05-12] MEDS: buPROPion (SR) 150 MG Tablet.SA PO ×2 (05:27→17:56)
[2020-05-12] MEDS: Calcium Carbonate 500 MG Tablet 1000 MG PO (09:06)
[2020-05-12] MEDS: Multivitamins,Ther W-Minerals Tablet 1 TABLET PO (09:06)
[2020-05-12] MEDS: Gabapentin 100 MG Capsule PO ×2 (09:06→17:55)
[2020-05-12] MEDS: Iron Polysaccharide Complex 150 MG CAPSULE PO ×2 (09:08→17:55)
[2020-05-12 10:00] VITALS: PULSE 88; RESP 18; O2SAT 98
[2020-05-12 14:06] VITALS: BP 102/58; PULSE 84; RESP 15; TEMP 36.6; O2SAT 98
--- NOTE | 2020-05-12 16:46 | NURSING ---
Pt very tearful today. Pt stating she doesn't know how much longer she can go on with living like this. Patient states it is too hard not to see her family. Patient repeatedly call herself stupid for falling and making herself have to come here. Patient also thought that she was not coming back to TCU after her Neurology appointment on 05/17/2020.
[2020-05-12] MEDS: Tamsulosin HCl 0.4 MG Capsule PO (17:55)
[2020-05-12] MEDS: Atorvastatin Calcium 80 MG Tablet PO (22:44)
[2020-05-12] MEDS: Mirtazapine 15 MG Tablet 7.5 MG PO (22:44)
[2020-05-13 06:03] VITALS: BP 119/53; PULSE 75; RESP 18; TEMP 36.4; O2SAT 96
[2020-05-13] MEDS: Mirabegron 25 MG TAB.ER.24H PO (06:07)
[2020-05-13] MEDS: buPROPion (SR) 150 MG Tablet.SA PO ×2 (06:07→17:04)
[2020-05-13] MEDS: Escitalopram Oxalate 10 MG Tablet PO (06:07)
[2020-05-13] MEDS: levETIRAcetam 1,000 MG Tablet 1000 MG PO ×2 (06:07→17:04)
[2020-05-13] MEDS: Pantoprazole Sodium 40 MG Tablet PO (06:07)
[2020-05-13] MEDS: Enoxaparin 40 MG/0.4 ML Syringe SC (06:08)
[2020-05-13] MEDS: Menthol/Lanolin/Calamine/Znox 113 GM Tube 1 APPLIC TOPICAL ×2 (06:08→17:03)
[2020-05-13] MEDS: Gabapentin 100 MG Capsule PO ×2 (08:24→17:04)
[2020-05-13] MEDS: Calcium Carbonate 500 MG Tablet 1000 MG PO (08:24)
[2020-05-13] MEDS: Iron Polysaccharide Complex 150 MG CAPSULE PO ×2 (08:24→17:04)
[2020-05-13] MEDS: Multivitamins,Ther W-Minerals Tablet 1 TABLET PO (09:21)
[2020-05-13 09:23] VITALS: PULSE 88; RESP 18; O2SAT 98
[2020-05-13 15:00] VITALS: BP 117/51; PULSE 87; RESP 16; TEMP 36.6; O2SAT 97
[2020-05-13] MEDS: Senna/Docusate Sodium 1 Tablet 2 TABLET PO (17:04)
[2020-05-13] MEDS: Tamsulosin HCl 0.4 MG Capsule PO (17:04)
[2020-05-13] MEDS: Mirtazapine 15 MG Tablet 7.5 MG PO (21:00)
[2020-05-13] MEDS: Atorvastatin Calcium 80 MG Tablet PO (21:00)
[2020-05-14 05:00] VITALS: BP 117/70; PULSE 83; RESP 18; TEMP 36.6; O2SAT 95
[2020-05-14] MEDS: buPROPion (SR) 150 MG Tablet.SA PO ×2 (05:14→17:12)
[2020-05-14] MEDS: levETIRAcetam 1,000 MG Tablet 1000 MG PO ×2 (05:14→17:12)
[2020-05-14] MEDS: Pantoprazole Sodium 40 MG Tablet PO (05:14)
[2020-05-14] MEDS: Escitalopram Oxalate 10 MG Tablet PO (05:14)
[2020-05-14] MEDS: Enoxaparin 40 MG/0.4 ML Syringe SC (05:14)
[2020-05-14] MEDS: Mirabegron 25 MG TAB.ER.24H PO (05:14)
[2020-05-14] MEDS: Menthol/Lanolin/Calamine/Znox 113 GM Tube 1 APPLIC TOPICAL ×2 (05:15→17:21)
[2020-05-14] MEDS: Senna/Docusate Sodium 1 Tablet 2 TABLET PO ×2 (05:15→17:12)
[2020-05-14 05:51] LABS: Absolute Lymphocyte Count 1.09 X10^3/uL (0.83-4.51); Absolute Neutrophil Count 4.4 X10^3/uL (2.0-7.7); Basophil# 0.04 X10^3/uL; Basophil% 0.5 % (0-1); Eosinophil# 0.34 X10^3/uL; Eosinophils% 3.9 % (0-5); Hemoglobin 11.1 g/dL (12.0-15.0); Lymphocyte # 1.09 X10^3/ul (4.0); Lymphocyte % 12.6 % (19-41); Mean Corp Hgb Conc 31.7 g/dL (32-36); Mean Corpuscular Hgb 32.1 pg (27.0-32.0); Mean Corpuscular Volume 101.2 fL (81-99); Monocyte# 2.47 X10^3/uL; Monocyte% 28.7 % (0-10); NRBC Flagged by Analyzer 0 % (0-5); Neutrophil # 4.42 X10^3/uL (2.7-7.7); Neutrophil % 51.3 % (47-70); POSITIVE DIFFERENTIAL YES; Platelet Count 188 K/mm3 (150-450); RBC Distribution Width CV 13.3 % (11.6-14.6); RBC Distribution Width SD 49.3 fl (35.1-43.9); Red Blood Count 3.46 M/mm3 (4.2-5.4); White Blood Count 8.6 K/mm3 (4.4-11.0)
[2020-05-14 06:07] LABS: Differential Indicated SCAN CRITERIA MET
[2020-05-14 06:09] LABS: Anion Gap 6 (5-15); BUN 29 mg/dL (7-18); BUN/Creat Ratio 35.8 RATIO (10-20); Calcium,Total 8.5 mg/dL (8.5-10.1); Chloride 106 mmol/L (98-107); Creatinine, Serum 0.81 mg/dL (0.55-1.02); EST Glomerular Filtration Rate 73 mL/min (>60); Est Glom Filt Rate - Afr Amer 88 mL/min (>60); Estimated Creatinine Clearance 51.02 ml/min; Glucose 96 mg/dL (74-106); Potassium 4.3 mmol/L (3.5-5.1); Sodium Level 140 mmol/L (136-145)
[2020-05-14 06:21] LABS: Differential Comment SCANNED
[2020-05-14] MEDS: Gabapentin 100 MG Capsule PO ×2 (07:45→17:12)
[2020-05-14] MEDS: Calcium Carbonate 500 MG Tablet 1000 MG PO (07:45)
[2020-05-14] MEDS: Multivitamins,Ther W-Minerals Tablet 1 TABLET PO (07:45)
[2020-05-14] MEDS: Iron Polysaccharide Complex 150 MG CAPSULE PO ×2 (07:45→17:12)
[2020-05-14 13:51] VITALS: BP 113/42; PULSE 88; RESP 16; TEMP 36.2; O2SAT 97
--- NOTE | 2020-05-14 16:38 | NURSING ---
pt called in and stated that the family will pick pt up on 05/17 at 5;30 AM. PT IS TO BE NPO AT 5AM ON 05/17.
[2020-05-14] MEDS: Tamsulosin HCl 0.4 MG Capsule PO (17:12)
[2020-05-14] MEDS: Atorvastatin Calcium 80 MG Tablet PO (20:19)
[2020-05-14] MEDS: Mirtazapine 15 MG Tablet 7.5 MG PO (20:20)
[2020-05-15 05:00] VITALS: BP 106/55; PULSE 82; RESP 18; TEMP 36.5; O2SAT 96
[2020-05-15] MEDS: Menthol/Lanolin/Calamine/Znox 113 GM Tube 1 APPLIC TOPICAL ×2 (06:03→17:22)
[2020-05-15] MEDS: Mirabegron 25 MG TAB.ER.24H PO (06:04)
[2020-05-15] MEDS: Pantoprazole Sodium 40 MG Tablet PO (06:04)
[2020-05-15] MEDS: Senna/Docusate Sodium 1 Tablet 2 TABLET PO ×2 (06:04→17:21)
[2020-05-15] MEDS: buPROPion (SR) 150 MG Tablet.SA PO ×2 (06:04→17:22)
[2020-05-15] MEDS: Enoxaparin 40 MG/0.4 ML Syringe SC (06:04)
[2020-05-15] MEDS: Escitalopram Oxalate 10 MG Tablet PO (06:04)
[2020-05-15] MEDS: levETIRAcetam 1,000 MG Tablet 1000 MG PO ×2 (06:04→17:21)
[2020-05-15] MEDS: Calcium Carbonate 500 MG Tablet 1000 MG PO (08:21)
[2020-05-15] MEDS: Iron Polysaccharide Complex 150 MG CAPSULE PO ×2 (08:21→17:21)
[2020-05-15] MEDS: Gabapentin 100 MG Capsule PO ×2 (08:22→17:21)
[2020-05-15] MEDS: Multivitamins,Ther W-Minerals Tablet 1 TABLET PO (08:22)
[2020-05-15] MEDS: dexAMETHasone 4 MG Tablet 40 MG PO (08:22)
[2020-05-15 11:10] VITALS: PULSE 83; RESP 16; O2SAT 95
[2020-05-15 13:48] VITALS: BP 126/57; PULSE 96; RESP 16; TEMP 36.2; O2SAT 98
--- NOTE | 2020-05-15 14:53 | NURSING ---
therapy up dated family.
[2020-05-15] MEDS: Tamsulosin HCl 0.4 MG Capsule PO (17:21)
[2020-05-15] MEDS: Atorvastatin Calcium 80 MG Tablet PO (19:50)
[2020-05-15] MEDS: Mirtazapine 15 MG Tablet 7.5 MG PO (19:50)
[2020-05-16 05:00] VITALS: BP 123/64; PULSE 82; RESP 16; TEMP 36.6; O2SAT 95
[2020-05-16] MEDS: Menthol/Lanolin/Calamine/Znox 113 GM Tube 1 APPLIC TOPICAL ×2 (05:52→17:02)
[2020-05-16] MEDS: Enoxaparin 40 MG/0.4 ML Syringe SC (05:52)
[2020-05-16] MEDS: Escitalopram Oxalate 10 MG Tablet PO (05:55)
[2020-05-16] MEDS: Senna/Docusate Sodium 1 Tablet 2 TABLET PO ×2 (05:55→17:02)
[2020-05-16] MEDS: buPROPion (SR) 150 MG Tablet.SA PO ×2 (05:55→17:03)
[2020-05-16] MEDS: levETIRAcetam 1,000 MG Tablet 1000 MG PO ×2 (05:55→17:02)
[2020-05-16] MEDS: Pantoprazole Sodium 40 MG Tablet PO (05:55)
[2020-05-16] MEDS: Mirabegron 25 MG TAB.ER.24H PO (06:41)
[2020-05-16] MEDS: Calcium Carbonate 500 MG Tablet 1000 MG PO (08:15)
[2020-05-16] MEDS: Iron Polysaccharide Complex 150 MG CAPSULE PO ×2 (08:16→16:27)
[2020-05-16] MEDS: Multivitamins,Ther W-Minerals Tablet 1 TABLET PO (08:16)
[2020-05-16] MEDS: Gabapentin 100 MG Capsule PO ×2 (08:16→16:27)
[2020-05-16 08:51] VITALS: PULSE 85; RESP 16; O2SAT 97
--- NOTE | 2020-05-16 12:14 | CASEMGMT ---
Social Work Spoke with pt's to answer questions. concerned about depression and memory - he stated pt called him four times at 5 am asking the same questions. Explained pt is on three antidepressants and pt underwent major surgery and a had a major medical incident. Explained pt is not progressing in any therapies - this could be her new normal. Reiterated this is the information IDT has been relaying to throughout pt stay. surprised that this may not resolve for pt. Explained plan on DC the next week. SW to follow up after family takes pt to appt 05/17 to determine DC plans. Will continue to follow. STEFAN Berry EDUCATION REVIEWER
[2020-05-16 14:08] VITALS: BP 124/76; PULSE 80; RESP 18; TEMP 36.6; O2SAT 97
[2020-05-16] MEDS: Tamsulosin HCl 0.4 MG Capsule PO (16:29)
[2020-05-16] MEDS: Atorvastatin Calcium 80 MG Tablet PO (21:00)
[2020-05-16] MEDS: Mirtazapine 15 MG Tablet 7.5 MG PO (21:00)
[2020-05-17 05:00] VITALS: BP 103/51; PULSE 76; RESP 14; TEMP 36.7; O2SAT 96
[2020-05-17] MEDS: levETIRAcetam 1,000 MG Tablet 1000 MG PO ×2 (05:13→17:14)
[2020-05-17] MEDS: Menthol/Lanolin/Calamine/Znox 113 GM Tube 1 APPLIC TOPICAL ×2 (05:14→17:16)
--- NOTE | 2020-05-17 05:15 | NURSING ---
Nurse only administered keppra with enough water to take pill this AM. Patient has a appointment this AM and picking up at 5:30 am. VS Temp 98.1 oral, RR-14, Bp-103/51, P-76.
--- NOTE | 2020-05-17 16:11 | NURSING ---
pt had appointment at [facility] today, dropped pt off and stated he had the paperwork at home stated he would bring it in tomorrow during outside visit
[2020-05-17] MEDS: buPROPion (SR) 150 MG Tablet.SA PO (17:14)
[2020-05-17] MEDS: Senna/Docusate Sodium 1 Tablet 2 TABLET PO (17:14)
[2020-05-17] MEDS: Iron Polysaccharide Complex 150 MG CAPSULE PO (17:15)
[2020-05-17] MEDS: Gabapentin 100 MG Capsule PO (17:15)
[2020-05-17] MEDS: Tamsulosin HCl 0.4 MG Capsule PO (17:15)
[2020-05-17] MEDS: Atorvastatin Calcium 80 MG Tablet PO (22:25)
[2020-05-17] MEDS: Mirtazapine 15 MG Tablet 7.5 MG PO (22:26)
[2020-05-17 22:28] VITALS: PULSE 85; RESP 16; O2SAT 95
[2020-05-18 05:00] VITALS: BP 105/40; PULSE 80; RESP 16; TEMP 36.7; O2SAT 97
[2020-05-18] MEDS: Senna/Docusate Sodium 1 Tablet 2 TABLET PO ×2 (06:26→18:50)
[2020-05-18] MEDS: Escitalopram Oxalate 10 MG Tablet PO (06:27)
[2020-05-18] MEDS: Enoxaparin 40 MG/0.4 ML Syringe SC (06:27)
[2020-05-18] MEDS: levETIRAcetam 1,000 MG Tablet 1000 MG PO ×2 (06:27→18:50)
[2020-05-18] MEDS: buPROPion (SR) 150 MG Tablet.SA PO ×2 (06:27→18:50)
[2020-05-18] MEDS: Pantoprazole Sodium 40 MG Tablet PO (06:27)
[2020-05-18] MEDS: Mirabegron 25 MG TAB.ER.24H PO (06:29)
[2020-05-18] MEDS: Menthol/Lanolin/Calamine/Znox 113 GM Tube 1 APPLIC TOPICAL ×2 (06:30→18:49)
[2020-05-18] MEDS: Calcium Carbonate 500 MG Tablet 1000 MG PO (08:33)
[2020-05-18] MEDS: Multivitamins,Ther W-Minerals Tablet 1 TABLET PO (08:34)
[2020-05-18] MEDS: Iron Polysaccharide Complex 150 MG CAPSULE PO ×2 (08:34→18:50)
[2020-05-18] MEDS: Gabapentin 100 MG Capsule PO ×2 (08:34→18:50)
[2020-05-18 14:20] VITALS: BP 92/40; PULSE 80; RESP 14; TEMP 36.6; O2SAT 95
[2020-05-18] MEDS: Tamsulosin HCl 0.4 MG Capsule PO (18:50)
[2020-05-18] MEDS: Mirtazapine 15 MG Tablet 7.5 MG PO (20:42)
[2020-05-18] MEDS: Atorvastatin Calcium 80 MG Tablet PO (20:43)
[2020-05-19 05:00] VITALS: BP 83/48; PULSE 78; RESP 18; TEMP 36.6; O2SAT 96
[2020-05-19] MEDS: Enoxaparin 40 MG/0.4 ML Syringe SC (06:23)
[2020-05-19] MEDS: Escitalopram Oxalate 10 MG Tablet PO (06:24)
[2020-05-19] MEDS: Senna/Docusate Sodium 1 Tablet 2 TABLET PO ×2 (06:24→17:17)
[2020-05-19] MEDS: Pantoprazole Sodium 40 MG Tablet PO (06:24)
[2020-05-19] MEDS: levETIRAcetam 1,000 MG Tablet 1000 MG PO ×2 (06:24→17:16)
[2020-05-19] MEDS: Mirabegron 25 MG TAB.ER.24H PO (06:24)
[2020-05-19] MEDS: buPROPion (SR) 150 MG Tablet.SA PO ×2 (06:24→17:18)
[2020-05-19] MEDS: Menthol/Lanolin/Calamine/Znox 113 GM Tube 1 APPLIC TOPICAL ×2 (06:28→17:17)
[2020-05-19 07:31] VITALS: BP 111/39
[2020-05-19] MEDS: Calcium Carbonate 500 MG Tablet 1000 MG PO (08:04)
[2020-05-19] MEDS: Gabapentin 100 MG Capsule PO ×2 (08:04→17:16)
[2020-05-19] MEDS: Multivitamins,Ther W-Minerals Tablet 1 TABLET PO (08:05)
[2020-05-19] MEDS: Iron Polysaccharide Complex 150 MG CAPSULE PO ×2 (08:05→17:16)
[2020-05-19 14:00] VITALS: PULSE 85; RESP 18; O2SAT 94
[2020-05-19 14:53] VITALS: BP 104/38; PULSE 86; RESP 16; TEMP 36.2; O2SAT 94
--- NOTE | 2020-05-19 16:06 | NURSING ---
CALLED AND UP DATED ON PT.
[2020-05-19] MEDS: Tamsulosin HCl 0.4 MG Capsule PO (17:16)
[2020-05-19] MEDS: Atorvastatin Calcium 80 MG Tablet PO (21:28)
[2020-05-19] MEDS: Mirtazapine 15 MG Tablet 7.5 MG PO (21:29)
[2020-05-20 05:00] VITALS: BP 109/61; PULSE 75; RESP 18; TEMP 36.6; O2SAT 94
[2020-05-20] MEDS: Senna/Docusate Sodium 1 Tablet 2 TABLET PO ×2 (05:48→17:24)
[2020-05-20] MEDS: Menthol/Lanolin/Calamine/Znox 113 GM Tube 1 APPLIC TOPICAL ×2 (05:48→17:23)
[2020-05-20] MEDS: Enoxaparin 40 MG/0.4 ML Syringe SC (05:48)
[2020-05-20] MEDS: Escitalopram Oxalate 10 MG Tablet PO (05:49)
[2020-05-20] MEDS: buPROPion (SR) 150 MG Tablet.SA PO ×2 (05:49→17:25)
[2020-05-20] MEDS: Mirabegron 25 MG TAB.ER.24H PO (05:49)
[2020-05-20] MEDS: levETIRAcetam 1,000 MG Tablet 1000 MG PO ×2 (05:49→17:24)
[2020-05-20] MEDS: Pantoprazole Sodium 40 MG Tablet PO (05:49)
[2020-05-20] MEDS: Iron Polysaccharide Complex 150 MG CAPSULE PO ×2 (08:35→17:24)
[2020-05-20] MEDS: Multivitamins,Ther W-Minerals Tablet 1 TABLET PO (08:35)
[2020-05-20] MEDS: Gabapentin 100 MG Capsule PO ×2 (08:36→17:24)
[2020-05-20] MEDS: Calcium Carbonate 500 MG Tablet 1000 MG PO (08:36)
[2020-05-20 14:13] VITALS: BP 114/72; PULSE 80; RESP 16; TEMP 36.6; O2SAT 97
--- NOTE | 2020-05-20 16:57 | CASEMGMT ---
Social Work Spoke with pt's about DC plans. is securing aides to assist 22/03. He has two aides alternating mini shifter, both of his dtr's and himself will be there during the day. Explained IDT would like to have more assistance other than family during the day so to keep calling HHC aides to secure. understood. IDT agreeable to DC 05/24. Inquired about skilled HHC or hospice. would like to start with HHC. [facility]ST/SN/RUIZ/SW. No DME needs. Plan: DC home with and HHC 05/24 STEFAN Berry
[2020-05-20] MEDS: Tamsulosin HCl 0.4 MG Capsule PO (17:24)
--- NOTE | 2020-05-20 20:09 | PCM.DC ---
- Discharge Diagnoses Current Active Problems: Current Active and Chronic Problems (Last Reviewed 04/03/20 @ 11:33 by Anika Choudhary) Iron deficiency anemia (Acute) You will use the following diet at home:: No restrictions, Regular Your food should be the consistency of: Regular Your liquids should be the consistency of: Regular/Thin Discharge Activity: Return to Normal Activity, May Shower, Use Walker Weight Bearing Status: Weight bearing as tolerated Call your doctor if you observe: Fever of 101 or Higher, Inability to urinate, Inability to have a bowel movement, Shortness of breath, Chest pain, Uncontrolled pain Allergies/Adverse Reactions: Allergies sulfamethoxazole [From Bactrim] Allergy (Severe, Verified 04/20/20 07:46) Other SEIZUERE, LOSS OF MOVEMENT IN LEGS trimethoprim [From Bactrim] Allergy (Severe, Verified 04/20/20 07:46) Other SEIZURE LOSS OF MOVEMENT IN LEGS indomethacin Allergy (Verified 04/20/20 07:46) NEEDS FOLLOW-UP pneumococcal vaccine Allergy (Verified 04/20/20 07:46) NEEDS FOLLOW-UP morphine Adverse Reaction (Severe, Verified 04/20/20 07:46) Nausea Medications to take at Discharge Atorvastatin Calcium [Lipitor] 80 mg PO QHS #30 tab 09/10/19 Tamsulosin HCl [Flomax] 0.4 mg PO DAILY@1730 09/26/19 buPROPion SR [Wellbutrin SR (150mg tablets)] 150 mg PO BID 09/26/19 Dexamethasone [Decadron] 40 mg PO WE 12/13/19 Cholecalciferol (Vitamin D3) [D3-50] 1,250 mcg PO DAILY 02/07/20 Meclizine HCl [Antivert] 25 mg PO Q8H PRN #16 tab 02/07/20 Pantoprazole Sodium [Protonix] 40 mg PO DAILY 02/07/20 Calcium Carbonate [Calcium] 1,200 mg PO DAILY 04/17/20 Mirabegron [Myrbetriq] 25 mg PO DAILY 04/17/20 Multivitamin with Minerals [Multivitamins with Minerals] 1 ea PO DAILY 04/17/20 Acetaminophen [Tylenol] 1,000 mg PO Q6H PRN PRN tablet 05/20/20 Escitalopram Oxalate 10 mg PO DAILY #30 tablet 05/20/20 Gabapentin [Neurontin] 100 mg PO BIDCM #60 cap 05/20/20 Iron Polysaccharide Complex [Ferrex 150] 150 mg PO BIDCM #60 cap 05/20/20 Levetiracetam 1,000 mg PO Q12H #60 tab 05/20/20 Menthol/Lanolin/Calamine/Znox [Calmoseptine Ointment] 1 applic TOPICAL BID tube 05/20/20 Mirtazapine [Remeron] 7.5 mg PO QHS #30 tab 05/20/20 The following prescriptions were given: Escitalopram Oxalate 10 mg PO DAILY #30 tablet Iron Polysaccharide Complex [Ferrex 150] 150 mg PO BIDCM #60 cap Transmission Status: Pending to [facility] [employer] #30 Levetiracetam 1,000 mg PO Q12H #60 tab Transmission Status: Pending to [facility] #30 Gabapentin [Neurontin] 100 mg PO BIDCM #60 cap Transmission Status: Pending to [facility] #30 Mirtazapine [Remeron] 7.5 mg PO QHS #30 tab Transmission Status: Pending to [employer] #30 Primary Care Physician: Augusta Wilson DO [Primary Care Provider] - Please follow up with your Primary Care Physician in: 1 week. Test Results: Test results from this visit will be discussed in further detail at your follow-up appointment, if applicable. Please Follow Up With: Augusta Wilson DO When: 1 -2 weeks after discharge Please Follow Up With: Fabricio Burrell CNP Please Follow Up With: CT Scan at department of Radiology [place] Please Follow Up With: Dr. Verde (neurosurgeon) - Cranioplasty at [facility]. When: 06/05/20 Proposed Discharge Date: 05/24/20
--- NOTE | 2020-05-20 20:11 | DS.PCM_ITS ---
Discharge Date and Diagnosis - Problem List Patient Problems: Active and Suspected Problems (Last Reviewed 04/03/20 @ 11:33 by Anika Choudhary) Iron deficiency anemia (Acute) Date of Admission: 04/22/20 Date of Discharge: 05/24/20 - Primary Discharge Diagnosis Acute Problems: Active Problems (Last Reviewed 04/03/20 @ 11:33 by Anika Choudhary) Iron deficiency anemia (Acute) - Secondary Discharge Diagnosis Chronic Problems: Chronic Problems (Last Reviewed 04/03/20 @ 11:33 by Anika Choudhary) Multiple falls (Chronic) Subdural hematoma (Chronic) Seizure disorder (Chronic) Stroke (Chronic) HLD (hyperlipidemia) (Chronic) Anxiety and depression (Chronic) Essential tremor (Chronic) Low back pain (Chronic) Vascular dementia (Chronic) Hypertension (Chronic) Neuropathic pain (Chronic) Left hemiparesis (Chronic) Anxiety (Chronic) Chronic indwelling Bentley catheter (Chronic) Chronic anticoagulation (Chronic) on therapeutic Lovenox Cauda equina syndrome (Chronic) Myelodysplasia (myelodysplastic syndrome) (Chronic) Depression (Chronic) Cerebrovascular disease (Chronic) MDS (myelodysplastic syndrome), low grade (Chronic) Myeloma (Chronic) Lung nodule (Chronic) Left upper lobe, May 2018 Liver lesion, right lobe (Chronic) Negative biopsy for malignancy June 29, 2018 Anemia (Chronic) Cognitive dysfunction (Chronic) Meningioma (Chronic) Hospital Course and Treatment Imaging Results: 04/29/20 14:30 Diet: Regular - General Food consistency:: Regular Liquid Consistency:: Regular/Thin Is pt able to select menu?: Yes Diet Comments: supervised meals with verbal cues to continue eating 06/05/20 00:00 NPO [Diet: Nothing Per Oral] Is pt able to select menu?: Yes Diet Comments: supervised meals with verbal cues to continue eating Clinical Impression(s) from Imaging Studies Chest X-Ray 04/23/20 18:30 IMPRESSION: No acute cardiopulmonary disease or major interval change. Electronically Signed: Sebastien Albright DO at 19:14 EDT Tel [phone], Service support , Operations: None Procedures: None Summary of Care Provided: The patient is a 75 year old Female with below past medical history significant for left subdural hematoma status post left craniectomy/craniotomy, subdural hematoma evacuation, hospitalized for hypotension, iron deficiency anemia requiring transfusion, admitted to TCU with debility, here for rehabilitation, strengthening, prior to discharge home with . On TCU, resident had talked about giving, hospice was discussed, but she continued to push herself, and she slowly improved. On discharge, she is looking good, and feeling good. 06/05/20 Cranioplasty scheduled at [facility]. Discharge home with , [facility] PT/OT/SN/POLICE CADET/SW, No durable medical equipment needs. Patient Problems: Active and Suspected Problems (Last Reviewed 04/03/20 @ 11:33 by Anika Choudhary) Iron deficiency anemia (Acute) - Physical Exam Vitals/I&O's: Vital Signs Temp Pulse Resp BP Pulse Ox 97.8 F 80 16 114/72 97 05/20/20 14:13 05/20/20 14:13 05/20/20 14:13 05/20/20 14:13 05/20/20 14:13 Oxygen Delivery Method Room Air Weight: 59.421 kg Body Mass Index (BMI) 21.7 Finger Stick Blood Glucose 106 Intake and Output for Last 24 Hours 05/18/20 05/19/20 05/20/20 23:59 23:59 23:59 Intake Total 960 / 960 960 / 960 720 / 720 Output Total 2300 / 2300 1300 / 1300 Balance 960 / 960 -1340 / -1340 -580 / -580 Current Medications Acetaminophen (Tylenol) 1,000 mg PO Q6H PRN PRN PRN Reason: Pain Score 1-3/10 Atorvastatin Calcium (Lipitor) 80 mg PO QHS [facility] Last Admin: 05/19/20 21:28 Dose: 80 mg Documented by: Bisacodyl (Dulcolax) 10 mg RECTAL DAILY PRN PRN Reason: constipation Last Admin: 05/10/20 15:23 Dose: 10 mg Documented by: Bupropion HCl (Wellbutrin Sr (150mg Tablets)) 150 mg PO BID [facility] Last Admin: 05/20/20 17:25 Dose: 150 mg Documented by: Calamine/Phenol (Calmoseptine Ointment) 1 applic TOPICAL BID [facility]; Protocol Last Admin: 05/20/20 17:23 Dose: 1 applicatio Documented by: Calcium Carbonate (Tums) 1,000 mg PO DAILYCM [facility] Last Admin: 05/20/20 08:36 Dose: 1,000 mg Documented by: Cholecalciferol (Vitamin D (25mcg)) 1,000 unit PO DAILY [facility] Last Admin: 05/20/20 05:49 Dose: 1,000 unit Documented by: Dexamethasone (Decadron) 40 mg PO We@0800 [facility] Last Admin: 05/15/20 08:22 Dose: 40 mg Documented by: Diazepam (Valium) 2 - 4 mg PO Q8H PRN PRN PRN Reason: Vertigo Escitalopram Oxalate (Lexapro) 10 mg PO DAILY [facility] Last Admin: 05/20/20 05:49 Dose: 10 mg Documented by: Gabapentin (Neurontin) [facility] Last Admin: 05/20/20 17:24 Dose: 100 mg Documented by: Levetiracetam (Keppra Tablet) 1,000 mg PO Q12 [facility] Last Admin: 05/20/20 17:24 Dose: 1,000 mg Documented by: Meclizine HCl (Antivert) 25 mg PO Q8H PRN PRN PRN Reason: DIZZINESS Last Admin: 05/08/20 11:52 Dose: 25 mg Documented by: Mirabegron (Myrbetriq) 25 mg PO DAILY [facility] Last Admin: 05/20/20 05:49 Dose: 25 mg Documented by: Mirtazapine (Remeron) 7.5 mg PO QHS [facility] Last Admin: 05/19/20 21:29 Dose: 7.5 mg Documented by: Multivitamins/Minerals (Multivitamin With Minerals (Bkc)) 1 tablet PO DAILY@0800 [facility] Last Admin: 05/20/20 08:35 Dose: 1 tablet Documented by: Nutritional Formula (Lactose Free) (Ensure Enlive) 120 ml PO 4X/DAY [facility] Last Admin: 05/20/20 17:23 Dose: 120 ml Documented by: Oxycodone HCl (Oxyir) 5 mg PO Q4H PRN PRN PRN Reason: Pain Score 4-10/10 Last Admin: 05/01/20 20:45 Dose: 5 mg Documented by: Pantoprazole Sodium (Protonix) 40 mg PO DAILY [facility] Last Admin: 05/20/20 05:49 Dose: 40 mg Documented by: Polyethylene Glycol (Miralax) 17 gm PO DAILY [facility] Last Admin: 05/20/20 05:49 Dose: Not Given Documented by: Polysaccharide Iron Complex (Ferrex 150) [facility] Last Admin: 05/20/20 17:24 Dose: 150 mg Documented by: Senna/Docusate Sodium (Senokot-S, Kassy-Colace) 2 tablet PO BID [facility] Last Admin: 05/20/20 17:24 Dose: 2 tablet Documented by: Tamsulosin HCl (Flomax) 0.4 mg PO DAILY@1730 [facility] Last Admin: 05/20/20 17:24 Dose: 0.4 mg Documented by: Discharge Diet: No Restrictions Discharge Activity: Return to Normal Activity, May Shower, Use Walker Weight Bearing Status: Weight bearing as tolerated Call your doctor if you observe: Fever of 101 or Higher, Inability to urinate, Inability to have a bowel movement, Shortness of breath, Chest pain, Uncontrolled pain Home Medications: Medications to take at Discharge Atorvastatin Calcium [Lipitor] 80 mg PO QHS #30 tab 09/10/19 Tamsulosin HCl [Flomax] 0.4 mg PO DAILY@1730 09/26/19 buPROPion SR [Wellbutrin SR (150mg tablets)] 150 mg PO BID 09/26/19 Dexamethasone [Decadron] 40 mg PO WE 12/13/19 Cholecalciferol (Vitamin D3) [D3-50] 1,250 mcg PO DAILY 02/07/20 Meclizine HCl [Antivert] 25 mg PO Q8H PRN #16 tab 02/07/20 Pantoprazole Sodium [Protonix] 40 mg PO DAILY 02/07/20 Calcium Carbonate [Calcium] 1,200 mg PO DAILY 04/17/20 Mirabegron [Myrbetriq] 25 mg PO DAILY 04/17/20 Multivitamin with Minerals [Multivitamins with Minerals] 1 ea PO DAILY 04/17/20 Acetaminophen [Tylenol] 1,000 mg PO Q6H PRN PRN tablet 05/20/20 Escitalopram Oxalate 10 mg PO DAILY #30 tablet 05/20/20 Gabapentin [Neurontin] 100 mg PO BIDCM #60 cap 05/20/20 Iron Polysaccharide Complex [Ferrex 150] 150 mg PO BIDCM #60 cap 05/20/20 Levetiracetam 1,000 mg PO Q12H #60 tab 05/20/20 Menthol/Lanolin/Calamine/Znox [Calmoseptine Ointment] 1 applic TOPICAL BID tube 05/20/20 Mirtazapine [Remeron] 7.5 mg PO QHS #30 tab 05/20/20 Following Prescriptions Were Given to Patient: Escitalopram Oxalate 10 mg PO DAILY #30 tablet Iron Polysaccharide Complex [Ferrex 150] 150 mg PO BIDCM #60 cap Transmission Status: Pending to [employer] #30 Levetiracetam 1,000 mg PO Q12H #60 tab Transmission Status: Pending to [employer] [facility] [employer] #30 Gabapentin [Neurontin] 100 mg PO BIDCM #60 cap Transmission Status: Pending to [facility] #30 Mirtazapine [Remeron] 7.5 mg PO QHS #30 tab Transmission Status: Pending to [employer] #30 Primary Care Physician: Augusta Wilson DO [Primary Care Provider] - Please follow up with your Primary Care Physician in: 1 week. Please Follow Up With: Augusta Wilson DO When: 1 -2 weeks after discharge Please Follow Up With: Fabricio Burrell CNP Please Follow Up With: CT Scan at department of Radiology [place] Please Follow Up With: Dr. Verde (neurosurgeon) - Cranioplasty at [facility]. When: 06/05/20 Disposition: Home with Home Health Minutes spent on discharge:: 35 Patient Condition:: Stable Medical Necessity - Tobacco Use Smoking Status: Never smoker Tobacco Use: Non-smoker Meaningful Use Info Meaningful Use Diagnoses (Choose all that apply): None applicable
[2020-05-20] MEDS: Atorvastatin Calcium 80 MG Tablet PO (22:09)
[2020-05-20] MEDS: Mirtazapine 15 MG Tablet 7.5 MG PO (22:09)
[2020-05-21 05:00] VITALS: BP 120/53; PULSE 83; RESP 18; TEMP 36.6; O2SAT 95
[2020-05-21 05:46] LABS: Absolute Lymphocyte Count 1.43 X10^3/uL (0.83-4.51); Absolute Neutrophil Count 5.1 X10^3/uL (2.0-7.7); Basophil# 0.04 X10^3/uL; Basophil% 0.4 % (0-1); Eosinophils% 3.1 % (0-5); Hematocrit 34.4 % (37-47); Lymphocyte # 1.43 X10^3/ul (4.0); Lymphocyte % 14.8 % (19-41); Mean Platelet Vol. 12.1 fl (6.2-12.0); Monocyte# 2.59 X10^3/uL; Monocyte% 26.7 % (0-10); NRBC Flagged by Analyzer 0 % (0-5); Neutrophil % 52.6 % (47-70); POSITIVE DIFFERENTIAL YES; Platelet Count 194 K/mm3 (150-450); RBC Distribution Width CV 13.3 % (11.6-14.6); RBC Distribution Width SD 48.8 fl (35.1-43.9); Red Blood Count 3.44 M/mm3 (4.2-5.4); White Blood Count 9.7 K/mm3 (4.4-11.0)
[2020-05-21 05:49] LABS: Differential Indicated SCAN CRITERIA MET
[2020-05-21 06:00] LABS: Anion Gap 4 (5-15); BUN 31 mg/dL (7-18); BUN/Creat Ratio 34.4 RATIO (10-20); Calcium,Total 8.5 mg/dL (8.5-10.1); Chloride 106 mmol/L (98-107); EST Glomerular Filtration Rate 65 mL/min (>60); Est Glom Filt Rate - Afr Amer 78 mL/min (>60); Estimated Creatinine Clearance 45.92 ml/min; Glucose 97 mg/dL (74-106); Potassium 4.3 mmol/L (3.5-5.1); Sodium Level 141 mmol/L (136-145)
[2020-05-21] MEDS: Menthol/Lanolin/Calamine/Znox 113 GM Tube 1 APPLIC TOPICAL ×2 (06:07→17:26)
[2020-05-21 06:09] LABS: Differential Comment SCANNED
[2020-05-21] MEDS: Mirabegron 25 MG TAB.ER.24H PO (06:09)
[2020-05-21] MEDS: Escitalopram Oxalate 10 MG Tablet PO (06:09)
[2020-05-21] MEDS: buPROPion (SR) 150 MG Tablet.SA PO ×2 (06:09→17:25)
[2020-05-21] MEDS: Senna/Docusate Sodium 1 Tablet 2 TABLET PO ×2 (06:09→17:24)
[2020-05-21] MEDS: levETIRAcetam 1,000 MG Tablet 1000 MG PO ×2 (06:09→17:24)
[2020-05-21] MEDS: Pantoprazole Sodium 40 MG Tablet PO (06:09)
[2020-05-21] MEDS: Calcium Carbonate 500 MG Tablet 1000 MG PO (08:09)
[2020-05-21] MEDS: Iron Polysaccharide Complex 150 MG CAPSULE PO ×2 (08:10→17:22)
[2020-05-21] MEDS: Multivitamins,Ther W-Minerals Tablet 1 TABLET PO (08:10)
[2020-05-21] MEDS: Gabapentin 100 MG Capsule PO ×2 (08:10→17:22)
[2020-05-21 10:00] VITALS: PULSE 82; RESP 18; O2SAT 96
--- NOTE | 2020-05-21 14:36 | CHAPLAIN ---
Type of Pastoral Visit ___ Initial Visit _x__ Follow-up Visit ___ On-call Visit ___ General Patient Visit ___ Spiritual Assessment ___ Family Conference ___ Bereavement ___ Rapid Response ___ Code Blue ___ Other (describe below) Pastoral Care Referral From _x__ Patient ___ Family ___ Nurse ___ Physician ___ Flame Channeler ___ Php Lamp Developer ___ Other (describe below) Sacrament/Intervention _x__ Active listening ___ Anointing ___ Zoroastrian ___ Bereavement ___ Communion ___ Orly exploration ___ ___ Life review _x__ Prayer ___ Reconciliation ___ Sacrament of Sick _x__ Supportive presence ___ Wedding ___ Other (describe below) Pastoral Comments patient is talkative but has difficulty with specific thoughts or answers; pt appears to know that she is going home but repeats fact of their recent move and cannot come up with dates or plans about discharge home; pt asks questions of this jewel setter; pt repeats that well we will just have to deal with it; pt expressive about visits and prayers given
[2020-05-21 15:05] VITALS: BP 109/55; PULSE 87; RESP 16; TEMP 36.6; O2SAT 96
--- NOTE | 2020-05-21 16:29 | NURSING ---
CALLED AND UPDATED .
[2020-05-21] MEDS: Tamsulosin HCl 0.4 MG Capsule PO (17:22)
[2020-05-21] MEDS: Atorvastatin Calcium 80 MG Tablet PO (21:03)
[2020-05-21] MEDS: Mirtazapine 15 MG Tablet 7.5 MG PO (21:04)
[2020-05-22] MEDS: Senna/Docusate Sodium 1 Tablet 2 TABLET PO ×2 (06:09→17:24)
[2020-05-22] MEDS: buPROPion (SR) 150 MG Tablet.SA PO ×2 (06:09→17:25)
[2020-05-22] MEDS: levETIRAcetam 1,000 MG Tablet 1000 MG PO ×2 (06:09→17:24)
[2020-05-22] MEDS: Mirabegron 25 MG TAB.ER.24H PO (06:09)
[2020-05-22] MEDS: Escitalopram Oxalate 10 MG Tablet PO (06:09)
[2020-05-22] MEDS: Pantoprazole Sodium 40 MG Tablet PO (06:09)
[2020-05-22 06:13] VITALS: BP 110/37; PULSE 78; RESP 16; TEMP 36.6; O2SAT 93
[2020-05-22] MEDS: Menthol/Lanolin/Calamine/Znox 113 GM Tube 1 APPLIC TOPICAL ×2 (06:13→17:25)
[2020-05-22] MEDS: dexAMETHasone 4 MG Tablet 40 MG PO (08:23)
[2020-05-22] MEDS: Multivitamins,Ther W-Minerals Tablet 1 TABLET PO (08:27)
[2020-05-22] MEDS: Iron Polysaccharide Complex 150 MG CAPSULE PO ×2 (08:27→17:23)
[2020-05-22] MEDS: Calcium Carbonate 500 MG Tablet 1000 MG PO (08:27)
[2020-05-22] MEDS: Gabapentin 100 MG Capsule PO ×2 (08:28→17:24)
--- NOTE | 2020-05-22 10:58 | CASEMGMT ---
BIMS and PHQ9 interviews completed on this date for MDS assessment. YANICK Peralta
[2020-05-22 13:58] VITALS: BP 120/74; PULSE 94; RESP 16; TEMP 37.1; O2SAT 98
[2020-05-22] MEDS: Tamsulosin HCl 0.4 MG Capsule PO (17:24)
[2020-05-22 21:43] VITALS: PULSE 92; RESP 16; O2SAT 98
[2020-05-22] MEDS: Atorvastatin Calcium 80 MG Tablet PO (21:43)
[2020-05-22] MEDS: Mirtazapine 15 MG Tablet 7.5 MG PO (21:43)
[2020-05-23] MEDS: levETIRAcetam 1,000 MG Tablet 1000 MG PO ×2 (05:55→17:29)
[2020-05-23] MEDS: Pantoprazole Sodium 40 MG Tablet PO (05:55)
[2020-05-23] MEDS: buPROPion (SR) 150 MG Tablet.SA PO ×2 (05:55→17:29)
[2020-05-23] MEDS: Senna/Docusate Sodium 1 Tablet 2 TABLET PO ×2 (05:55→17:29)
[2020-05-23] MEDS: Mirabegron 25 MG TAB.ER.24H PO (05:55)
[2020-05-23] MEDS: Escitalopram Oxalate 10 MG Tablet PO (05:56)
[2020-05-23] MEDS: Menthol/Lanolin/Calamine/Znox 113 GM Tube 1 APPLIC TOPICAL ×2 (05:58→17:32)
[2020-05-23 05:59] VITALS: BP 137/55; PULSE 80; RESP 16; TEMP 36.3; O2SAT 95
[2020-05-23] MEDS: Calcium Carbonate 500 MG Tablet 1000 MG PO (08:14)
[2020-05-23] MEDS: Gabapentin 100 MG Capsule PO ×2 (08:15→17:29)
[2020-05-23] MEDS: Multivitamins,Ther W-Minerals Tablet 1 TABLET PO (08:15)
[2020-05-23] MEDS: Iron Polysaccharide Complex 150 MG CAPSULE PO ×2 (08:15→17:29)
[2020-05-23 10:00] VITALS: PULSE 77; RESP 16; O2SAT 96
[2020-05-23 13:26] VITALS: BP 106/42; PULSE 78; RESP 14; TEMP 36.4; O2SAT 97
[2020-05-23] MEDS: Tamsulosin HCl 0.4 MG Capsule PO (17:29)
[2020-05-23] MEDS: Atorvastatin Calcium 80 MG Tablet PO (21:48)
[2020-05-23] MEDS: Mirtazapine 15 MG Tablet 7.5 MG PO (21:48)
[2020-05-24 05:00] VITALS: BP 109/73; PULSE 72; RESP 16; TEMP 36.6; O2SAT 94
[2020-05-24] MEDS: Pantoprazole Sodium 40 MG Tablet PO (05:26)
[2020-05-24] MEDS: Senna/Docusate Sodium 1 Tablet 2 TABLET PO (05:26)
[2020-05-24] MEDS: Escitalopram Oxalate 10 MG Tablet PO (05:26)
[2020-05-24] MEDS: levETIRAcetam 1,000 MG Tablet 1000 MG PO (05:26)
[2020-05-24] MEDS: buPROPion (SR) 150 MG Tablet.SA PO (05:26)
[2020-05-24] MEDS: Mirabegron 25 MG TAB.ER.24H PO (05:27)
[2020-05-24] MEDS: Menthol/Lanolin/Calamine/Znox 113 GM Tube 1 APPLIC TOPICAL (05:28)
[2020-05-24] MEDS: Iron Polysaccharide Complex 150 MG CAPSULE PO (08:07)
[2020-05-24] MEDS: Multivitamins,Ther W-Minerals Tablet 1 TABLET PO (08:07)
[2020-05-24] MEDS: Calcium Carbonate 500 MG Tablet 1000 MG PO (08:07)
[2020-05-24] MEDS: Gabapentin 100 MG Capsule PO (08:07)
[2020-05-24 09:57] VITALS: BP 110/68; PULSE 84; RESP 18; TEMP 36.7; O2SAT 95
[2020-05-24 10:00] VITALS: PULSE 87; RESP 18; O2SAT 95
== END 2020-05-24 10:30 | disposition home health service (06) | DRG 949 ==
PROVIDERS: Admitting Provider Family Medicine Geriatric Medicine; PCP Family Medicine; Referring Provider Family Medicine Geriatric Medicine; Visit Provider Family Medicine Geriatric Medicine
DX: Z48.812 Encounter for surgical aftercare following surgery on the circulatory system (principal); I62.00 Nontraumatic subdural hemorrhage, unspecified; C90.00 Multiple myeloma not having achieved remission; G81.94 Hemiplegia, unspecified affecting left nondominant side; E78.5 Hyperlipidemia, unspecified; F32.9 Major depressive disorder, single episode, unspecified; F41.9 Anxiety disorder, unspecified; E55.9 Vitamin D deficiency, unspecified; K21.9 Gastro-esophageal reflux disease without esophagitis; N32.81 Overactive bladder; R33.9 Retention of urine, unspecified; G40.909 Epilepsy, unspecified, not intractable, without status epilepticus; D50.9 Iron deficiency anemia, unspecified; I10 Essential (primary) hypertension; D46.9 Myelodysplastic syndrome, unspecified; Z86.011 Personal history of benign neoplasm of the brain; Z23 Encounter for immunization
CPT/HCPCS: 36415; 71046; 80048; 85025; 92507; 92523; 92526; 97110; 97116; 97162; 97166; 97530; 97535; G0008; 90686

== ENCOUNTER → 2020-05-30 09:05 | Outpatient (CLI) | payer MEDICARE, OTHER, SELFPAY ==
[2020-04-22 15:30] VITALS: BMI 21.7
== END ==
PROVIDERS: PCP Family Medicine
DX: Z01.818 Encounter for other preprocedural examination (principal)
CPT/HCPCS: 87635; C9803; U0003

== ENCOUNTER 2020-06-04 12:50 | Emergency (ER) | payer MEDICARE, OTHER, SELFPAY ==
[2020-04-22 15:30] VITALS: BMI 21.7
[2020-06-04 12:52] VITALS: BP 114/56; PULSE 97; RESP 16; TEMP 36.9; O2SAT 96; BMI 24.7
--- NOTE | 2020-06-04 13:07 | CT_ITS ---
STUDY: CT BRAIN WITHOUT CONTRAST REASON FOR EXAM: Female, 75 years old. MULTIPLE FALLS, RECENT CRANI FOR SDH, H/O MENINGIOMA-GAMMA K RADIATION DOSAGE (If Supplied By Facility): CTDIvol = ( 60.81 ) mGy, DLP = ( 1021.47 ) mGycm TECHNIQUE: Transaxial CT imaging of the brain was performed without administration of intravenous contrast material. Individualized dose optimization techniques were used for this CT. COMPARISON: 04/20/2020 FINDINGS: Normal soft tissue structures. Status post left parietal craniectomy. There is mild cerebral atrophy with widening of the extra-axial spaces and ventricular dilatation. There are areas of decreased attenuation within the white matter tracts of the supratentorial brain, consistent with microvascular disease changes. No change in the 2 cm partially calcified mass along the left side of the falx cerebri superiorly consistent with a small meningioma. Normal basal ganglia and thalami. Normal brainstem. Normal cerebellum. There is no intracranial hemorrhage. There are no findings of an acute ischemic infarction. Normal visualized paranasal sinuses. CT/Brain/Head without Contrast IMPRESSION: No change from 04/20/2020. No acute hemorrhage. Electronically Signed: Vladimir Rossi MD at 13:50 EDT Tel , Service support ,
--- NOTE | 2020-06-04 13:08 | ED.VIS.FALL ---
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 She was on anticoagulants which were removed, and she is wearing a helmet to protect her head status post craniectomy. She is scheduled for surgery again tomorrow at [facility] which is where she had the original surgery to put a plate and help protect her brain. Today, she had the helmet off to get a shower, her was trying to help her but then had an insulin reaction and was not acting right and accidentally fell on her, as she fell backwards. She denies any pain or injury, however presents to have her head evaluated. She does not think she injured it, but again was without her helmet. - Past Medical History (1) Debility Status: Chronic (2) Iron deficiency anemia Status: Chronic (3) Anemia Status: Chronic (4) Anxiety and depression Status: Chronic (5) Cerebrovascular disease Status: Chronic (6) Chronic indwelling Bentley catheter Status: Chronic (7) Cognitive dysfunction Status: Chronic (8) Essential tremor Status: Chronic (9) HLD (hyperlipidemia) Status: Chronic (10) Hypertension Status: Chronic (11) MDS (myelodysplastic syndrome), low grade Status: Chronic (12) Meningioma Status: Chronic (13) Neuropathic pain Status: Chronic (14) Seizure disorder Status: Chronic (15) Stroke Status: Chronic (16) Vascular dementia Status: Chronic Past Medical History - Allergies and Home Meds Allergies/Adverse Reactions: Allergies sulfamethoxazole [From Bactrim] Allergy (Severe, Verified 04/20/20 07:46) Other SEIZUERE, LOSS OF MOVEMENT IN LEGS trimethoprim [From Bactrim] Allergy (Severe, Verified 04/20/20 07:46) Other SEIZURE LOSS OF MOVEMENT IN LEGS indomethacin Allergy (Verified 04/20/20 07:46) NEEDS FOLLOW-UP pneumococcal vaccine Allergy (Verified 04/20/20 07:46) NEEDS FOLLOW-UP morphine Adverse Reaction (Severe, Verified 04/20/20 07:46) Nausea Primary Care Physician: Augusta Wilson DO [Primary Care Provider] - Surgical History: cholecystectomy, hysterectomy, tonsillectomy, - - Gamma knife meningioma. Surgery to evacuate a very large Lumbar hematoma causing cauda equina S. Left subdural hematoma craniectomy/craniotomy. Lives: Spouse/ Significant Other Smoking Status: Never smoker - Family History Maternal Family History: Family History (Last Reviewed 04/03/20 @ 11:33 by Anika Choudhary) Mother Breast cancer Sister Breast cancer Aunt Breast cancer Daughter History of malignant melanoma Father Brain cancer Brother Lung cancer Family History: Reports: Cancer - Mother with history of breast cancer. Paternal Family History: Family History (Last Reviewed 04/03/20 @ 11:33 by Anika Choudhary) Mother Breast cancer Sister Breast cancer Aunt Breast cancer Daughter History of malignant melanoma Father Brain cancer Brother Lung cancer Family History: Reports: Cancer - Father with history of brain cancer. Review of Systems General: Denies: Chills, Fever, Sweats Eyes: Denies: Visual changes - bilaterally, Diplopia ENT: Denies: Rhinorrhea, Sore throat Cardiovascular: Denies: Chest pain, Palpitations Respiratory: Denies: Dyspnea, Cough, Dyspnea on exertion Gastrointestinal: Denies: Abdominal pain, Nausea, Vomiting, Diarrhea, Melena, Hematochezia Genitourinary: Denies: Dysuria, Hematuria, Frequency Musculoskeletal: Reports: Back pain. Denies: Myalgias, Neck pain, Swelling, Extremity Pain Skin: Denies: Rash, Wounds Neurological: Reports: - - Disorientation, not acute. Denies: Headache, Weakness, Numbness Physical Exam Vital Signs/Narrative: Vital Signs Temp Pulse Resp BP Pulse Ox 06/04/20 12:52 98.4 F 97 16 114/56 L 96 Inital Vital Signs reviewed: Yes General: Well nourished, Well developed, - - Well-appearing, no distress Head: Normocephalic, Atraumatic, - - Large defect status post craniectomy with well-healed surgical incisions left parietal scalp. No tenderness or signs of trauma or infection. No other head signs of trauma or tenderness. Eyes: Perrl, EOMI ENT: TM's clear, No hemotympanum or drainage, No trauma Neck: Nontender, Full ROM. Negative for: Spinal Tenderness Cardiovascular: Regular rate, Regular rhythm, No murmurs Respiratory: No distress, CTA bilaterally, Chest nontender Abdomen: Soft, Nontender, Nondistended, Normal bowel sounds Back: Paraspinal Tenderness - In the left buttock only, - - Well-healed surgical scar. Negative for: Spinal Tenderness Extremeties: Full range of motion throughout all 4 extremities without pain. Pelvis stable to AP compression, no tenderness at the pelvic brim. Skin: Normal color, No rash Neurological: Alert, Oriented x3, Cranial nerves II-XII grossly intact, Normal Strength, Normal Sensation Psychological: Normal affect, Normal Mood Diagnostic/Tx/Re-eval Clinical Impression(s) from Imaging Studies Brain CT 06/04/20 13:07 IMPRESSION: No change from 04/20/2020. No acute hemorrhage. Electronically Signed: Vladimir Rossi MD at 13:50 EDT Tel , Service support , - Medical Decision Making Patient was observed, CT is negative for acute injury, unchanged compared with prior. On reevaluation she has no new pains or other issues and she is comfortable going home and feels reassured. ED Disposition - Plan for ED Patient: Disposition: Home or Assisted Living Diagnosis: Encounter for medical screening examination, Accidental fall Instructions: ED Mechanical Fall Referrals: Doctor,Your [STAFF PHYSICIAN] - (as scheduled tomorrow)
--- NOTE | 2020-06-04 14:08 | ED.RN ---
this nurse updated Jerod at [phone] on the phone per pt request.
[2020-06-04 14:14] VITALS: BP 124/57; PULSE 95; RESP 18; O2SAT 98
== END 2020-06-04 14:36 | disposition home or self-care (01) ==
PROVIDERS: Emergency Provider Emergency Medicine; PCP Family Medicine
DX: Z04.3 Encounter for examination and observation following other accident (principal); E78.5 Hyperlipidemia, unspecified; F41.9 Anxiety disorder, unspecified; G40.909 Epilepsy, unspecified, not intractable, without status epilepticus; D64.9 Anemia, unspecified; Z86.73 Personal history of transient ischemic attack (TIA), and cerebral infarction without residual deficits; W19.XXXA Unspecified fall, initial encounter
CPT/HCPCS: 70450; 99284

== ENCOUNTER → 2020-06-18 16:37 | Outpatient (CLI) | payer MEDICARE, OTHER, SELFPAY ==
[2020-06-04 12:52] VITALS: BMI 24.7
--- NOTE | 2020-06-18 16:41 | RAD_ITS ---
HISTORY: many back surgeries, pain with sitting, multiple myeloma EXAMINATION/TECHNIQUE: XR Sacrum/Coccyx Min 2 Views: COMPARISON: None FINDINGS: SACRUM/COCCYX: No displaced fracture. There are questionable subtle lytic lesion seen within the pubic bones and the ischial on the right. Evaluation is limited due to overlying fecal material involving the ileum. Note that overlapping bowel shadows may however obscure fine detail in the frontal view. Postsurgical changes are seen within the lumbar spine with laminectomy defects from the level of L2-S1. Question osseous graft anterior to the L3 and L4 vertebral bodies seen on lateral view only SACRO-ILIAC JOINTS: The articular structures are unremarkable. SOFT TISSUES: No soft tissue swelling or gas. RAD/Sacrum-Coccyx min 2 Views IMPRESSION: Questionable subtle lytic lesions involving the ischial and the pubic bones however evaluation is limited by overlying fecal material. Also limited evaluation of the alan due to overlying fecal material There is no evidence of an acute fracture. Sacroiliac joints are maintained Postsurgical changes in the lumbar spine and S1 as discussed Question osseous graft anterior to the L3 and L4 vertebral bodies seen on the lateral view only If symptoms persist consider CT examination for further evaluation at 0101 Reported and signed by: Venita Dsouza DO Electronically Signed: Venita Dsouza DO at 1:00 EDT Tel , Service support ,
== END ==
PROVIDERS: PCP Family Medicine; Referring Provider Family Medicine; Visit Provider Family Medicine
DX: M53.3 Sacrococcygeal disorders, not elsewhere classified (principal)
CPT/HCPCS: 72220

== ENCOUNTER → 2020-07-31 13:08 | Outpatient (CLI) | payer MEDICARE, OTHER, SELFPAY ==
--- NOTE | 2020-07-31 13:11 | CT_ITS ---
STUDY: CT CHEST WITHOUT CONTRAST REASON FOR EXAM: Female, 75 years old. Lung nodule follow up, left upper lobe. MULTIPLE MYLEOMA RADIATION DOSAGE (If Supplied By Facility): CTDIvol = ( 8.63 ) mGy, DLP = ( 332.02 ) mGycm TECHNIQUE: Transaxial imaging was performed without the administration of intravenous contrast material. Multiplanar coronal and sagittal images were reformatted. Individualized dose optimization techniques were used for this CT. COMPARISON: Comparison is made with prior study dated 12/13/2019. FINDINGS: There is a 1.1 cm hypodense nodule in the superior aspect of the right lobe of the thyroid. Stable scarring at the lung apices more prominent on the left side. Emphysematous changes. There is no demonstrated pleural abnormality. Normal heart and pericardium. Normal mediastinum. Normal hilar regions. Normal unenhanced pulmonary arteries. Normal aorta arch and descending thoracic aorta. There are multi-level degenerative changes of the thoracic spine. There is a 2.6 cm x 2.2 cm hypodense inhomogeneous nodule in the peripheral lateral aspect of the right lobe of the liver. There is also evidence of a 2.9 cm x 2.8 cm irregular hypodense nodule in the anterior aspect of the right lobe of the liver adjacent to the right cardiac border. CT/Chest without Contrast IMPRESSION: Stable examination. Electronically Signed: Kenyon Carmen, at 14:34 EST , Service support ,
== END ==
PROVIDERS: PCP Family Medicine; Referring Provider Internal Medicine Hematology & Oncology; Visit Provider Internal Medicine Hematology & Oncology
DX: R91.1 Solitary pulmonary nodule (principal)
CPT/HCPCS: 71250

== ENCOUNTER → 2020-11-22 10:29 | Outpatient (CLI) | payer MEDICARE, OTHER, SELFPAY ==
[2020-11-14 15:21] VITALS: BMI 23.8
--- NOTE | 2020-11-22 10:37 | VDLE_ITS ---
Reason For Study: Pain RIGHT GSV is normal. CFV is compressible, spontaneous, phasic, competent and demonstrates normal augmentation. FV is compressible, spontaneous, phasic, competent and demonstrates normal augmentation. POP V is compressible, spontaneous, phasic, competent and demonstrates normal augmentation. T/P Trunk is compressible. PTV is compressible. RT PerV is compressible. Procedure This is a venous duplex using B-mode, color flow and spectral Doppler. Exam performed in department. A preliminary report was called and/or faxed to [facility]. VL/Venous Duplex US, Unilateral Interpretation Summary Deep veins of the right lower extremity are patent and compressible segmentally . There is no evidence of right lower extremity deep vein thrombosis. Valvular competence nesha ears intact within the proximal deep venous system on the right . The right great saphenous vein a ppears patent and compressible segmentally. Ordering Physician: Narinder Cabral Referring Physician: Augusta Wilson Performed By: Hayley Mcginnis RVT
== END ==
PROVIDERS: PCP Family Medicine; Referring Provider Podiatrist; Visit Provider Podiatrist
DX: M79.661 Pain in right lower leg (principal); R60.0 Localized edema
CPT/HCPCS: 93971

== ENCOUNTER 2021-01-16 12:30 | Outpatient (RCR) | payer MEDICARE, OTHER, SELFPAY ==
[2020-09-18 13:19] VITALS: BMI 24.7
--- NOTE | 2020-10-11 18:47 | SOAP_ITS ---
REASON FOR REFERRAL: The patient is a pleasant 75 year old female referred for a clinical assessment of the patient?s cognitive communication abilities at [facility] / [facility] on 10/11/2019 status post left parietal subdural hematoma status post left parietal craniectomy complicated by prior cerebrovascular accident(s) involving the left posterior parietal lobe (2018), multiple meningioma(s) involving the left parietal and left frontal regions status post gamma knife therapy (1999), and multiple myeloma currently receiving systemic chemotherapy The patient?s was present for the evaluation and provided details regarding the patient?s current level of functioning. Both report that her expressive language abilities have improved since we last worked together during her Transitional Care Unit admission, though she continues to struggle with circumstantial and at times tangential expression. She continues to struggle with left visuospatial neglect and numerical processing, appearing to once again regress from the gains we previously achieved back to her prior levels following her initial stroke(s). Her handwriting is significantly complicated by her fluctuating issues with upper extremity control, with her handwriting quite illegible. During her admission to [facility] in April of 2020, she was able to communicate about a variety of familiar topics in addition to a number of novel topics, her expressive speech was littered with intermittent anomic blocks with occasional independent successful circumlocution, overall maintained expressive fluency with reduced message content (less specific nouns / verbs), with occasional paraphasia (predominantly phonemic) and occasional neologisms, and intermittent echolalia; symptoms suggesting a mild to at times moderate transcortical sensory aphasia with anomia. MEDICAL HISTORY: Subdural hematoma status post left parietal craniectomy, prior cerebrovascular accident(s) involving the left posterior parietal lobe (2018), multiple meningioma(s) involving the left parietal and left frontal regions status post gamma knife therapy (1999), left hemiparesis, residual cognitive dysfunction, left visuospatial neglect, multiple myeloma currently receiving systemic chemotherapy (vRD 28 day cycle; Velcade and Dexamethasone 3/4 week cycle; Revlimid 2 week on/off), caudal equina syndrome secondary to a epidural hematoma, low grade myelodysplastic syndrome, left upper lung nodule (2017), right lobe liver lesion status post biopsy (2018), macrocytosis, anemia, chronic lower back pain, neuropathic pain, essential tremor, chronic indwelling Bentley catheter, anxiety, depression RESULTS OF THE EVALUATION: The patient presents with moderate to severe executive dysfunction and mild to moderate transcortical aphasia status post left parietal subdural hematoma status post left parietal craniectomy complicated by prior cerebrovascular accident(s) involving the left posterior parietal lobe (2018), multiple meningioma(s) involving the left parietal and left frontal regions status post gamma knife therapy (1999), and multiple myeloma currently receiving systemic chemotherapy COGNITIVE COMMUNICATION ASSESSMENT RESULTS (QUANTITATIVE): BELLS TEST: CORRECT: /35 TOTAL TIME: 6:25 OMISSIONS (RIGHT): 4 INDICATIONS: > 6 omissions suggestive of right visual neglect / disturbance OMISSIONS (LEFT): 5 INDICATIONS: > 6 omissions suggestive of left visual neglect / disturbance OMISSIONS (TOTAL): 9 INDICATIONS: > 3 omissions suggests an attentional deficit DISTRACTORS: 0/264 SCANNING STRATEGY: left to right; independently reviewed with errors identified QUICK APHASIA BATTERY (QAB): <FORM 1> WORD COMPREHENSION: 10 /10 SENTENCE COMPREHENSION: 5.42 /10 WORD FINDIN.08 /10 GRAMMATICAL CONSTRUCTION: 5.38 /10 SPEECH MOTOR PROGRAMMIN /10 REPETITION: 5.0 /10 READIN.58 /10 QAB OVERALL: 7.47 /10 QAB SEVERITY: moderate APHASIA CONNECTED SPEECH FEATURES: REDUCED LENGTH / COMPLEXITY OF UTTERANCES: 3 (MLU 5-7 words) REDUCED SPEECH RATE: 1 (25-49 wpm) AGRAMMATISM: 2 (moderate) PARAGRAMMATISM: 3 (mild) ANOMIA: 3 (mild) EMPTY SPEECH: 2 (moderate) SEMANTIC PARAPHASIAS: 3 (mild) PHONEMIC PARAPHASIAS & NEOLOGISMS: 4 (normal) SELF CORRECTION: 2 (moderate) OVERALL COMMUNICATION IMPAIRMENT: 2 (moderate) MOTOR SPEECH FEATURES: DYSARTHRIA: 4 (normal) APRAXIA OF SPEECH: 4 (normal) COGNITIVE COMMUNICATION ASSESSMENT RESULTS (QUALITATIVE): EXECUTIVE FUNCTIONING: she continues to demonstrate awareness of deficits, often identifying issues in a timely manner, though cannot consistently identify and / or execute solutions, frequently exhibiting cognitive inertia; she demonstrates difficulty with information organization and task sequencing, and tends to ?talk around? subjects (circumstantial thought processing); these issues appear to have increased in significance, and she is often unable to repair; her emotional presentation is more blunted than during previous encounters MEMORY: she continues to demonstrate disrupted working memory complicating encoding and consolidation (though this would be a secondary effect to her executive functioning deficits) without a clear primacy or recency effect; preserved prospective memory; preserved explicit and implicit memory. ATTENTION: impaired attention as the complexity of demands increase (divided, selective, and alternating attention) that appears more compromised than during more recent assessments; she does attempt to execute compensatory measures (namely reviewing work) VISUOSPATIAL ABILITIES: her left visuospatial neglect was more apparent during the structured interview and while ambulating back to the intervention room, as she was often walking against the wall on the left side and grazing the clinician when strategically placed on the left; however she does execute compensatory measures during targeted tasks that resulted in a score higher than would be expected based on her presentation LANGUAGE FUNCTIONING: she continues to demonstrate a mild to at times moderate transcortical sensory aphasia with anomia; reduced mean length of utterances with frequent circumstantial communication that lacks specifics (at times few content words) and frequently fails after 2-3 statements, devolving into communication that lacks coherency and is often fraught with revisions; her anomia has improved to a mild / moderate range that appears to be complicated by fatigue; no dysarthria or vocal abnormalities; agraphia attributed to motor control issues; no alexia; she does 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 COGNITIVE COMMUNICATION ASSESSMENT RESULTS (SEVERITY GRADING): APRAXIA OF SPEECH RATING SCALE (ASRS-v1): ASRS-v1 SCORE: 0/4 ASRS-v1 SCORE DESCRIPTION: apraxia not present APHASIA SEVERITY RATING SCALE (ASRS): ASRS SCORE: 3/5 ASRS SCORE DESCRIPTION: the patient can discuss almost all everyday problems with little or no assistance; reduction of speech and/or comprehension, however, makes conversation about certain material difficult or impossible FUNCTIONAL COMMUNICATION MEASURE (FCM) ?COGNITIVE ORIENTATION FCM LEVEL: 2 (of 6) SEVERITY: mild-moderate LEVEL DESCRIPTION: responsiveness is functional for simple living activities; requires occasional cues to start, continue, change, and divide attention during routine activities; is aware of self and family members, sometimes aware of environment; needs help to be safe; there is evidence of new learning and recall during everyday activities; inconsistent and delayed ability to self-monitor is noted; social and family interactions and communication continue to be significantly affected. FUNCTIONAL COMMUNICATION MEASURE (FCM) ? ATTENTION FCM LEVEL: 2 (of 7) SEVERITY: moderate-severe LEVEL DESCRIPTION: the individual maintains attention over time to complete simple living tasks of short duration with consistent maximal cueing in the absence of distracting stimuli. FUNCTIONAL COMMUNICATION MEASURE (FCM) ?LANGUAGE COMPREHENSION FCM ?LEVEL: 2 (of 6) SEVERITY: mild-moderate LEVEL DESCRIPTION: comprehends 60-70% of sentences and conversations in familiar contexts; is a good participant in conversations for a limited number of topics; attention to conversation is appropriate, although reduced efficiency is evident (e.g., limited topics, needs repetition, requires increased processing time); few metalinguistic skills are evident (e.g., auditory memory, figurative language, story comprehension, problem solving) FUNCTIONAL COMMUNICATION MEASURE (FCM) ?LANGUAGE PRODUCTION FCM LEVEL: 2 (of 6) SEVERITY: mild-moderate LEVEL DESCRIPTION: produces sentences and conversation to communicate needs and make comments in familiar and novel contexts; complexity of language structures is reduced; communication in conversation may require increased time, repetitions, and cueing, which restricts participation RECOMMENDATIONS FOR INTERVENTION: The patient requires continued skilled speech-language intervention targeting implementation of internal and external compensatory cognitive processing compensatory strategies, with eventual considerations for Time Pressure Management (TPM) training, Iskz-Feas-Lv-Review (GPDR), Self-talk procedures, and organizational and elaboration techniques (namely PQRST) as appropriate; implementation of internal and external visuospatial compensatory strategies, to include systemic and twister hand scanning therapy with use of principles for visual scanning (Locus of the stimulus, anchoring, pacing, density, information load, performance prediction and feedback); as well as continued skilled speech-language intervention targeting expressive aphasia with considerations for semantic feature analysis training (SFAT); with goal adjustment as clinically indicated POST ASSESSMENT EDUCATION: The results and recommendations were discussed with the patient and the patients family immediately following completion of the assessment, with the patient and the patients family verbalizing understanding and agreement with all recommendations and education provided. FUNCTIONAL OUTCOMES: OUTCOME 1: the patient will utilize compensatory executive functioning / processing strategies identified and implemented throughout the intervention cycle (considerations for PDRE, TPMT) to facilitate improved cognitive processing, attention to task, and achievement of the highest level of safe, independent functioning with 100% accuracy over 2 consecutive sessions. OUTCOME 2: the patient will independently utilize external and internal compensatory strategies to improve attention to the left side during both structured and unstructured therapeutic tasks over 2 consecutive sessions to facilitate optimal level of safe functioning upon return to home environment. OUTCOME 3: the patient will demonstrate and utilize recommended compensatory expressive speech strategies and participate in structured intervention sessions utilizing a variety of approaches (considerations for SFAT) to reduce the presence of aphasia / anomia communication attempts, during both structured and unstructured therapeutic tasks. OUTCOME 4: goal adjustment as needed Obinna Orr M.A., CCC-TRACK LAYER HEAD, CBIS MBSImP Certified, LSVT Certified [facility] Speech-Language Pathology Department Email: [email or web address]
--- NOTE | 2020-10-22 09:27 | HP.PTEVAL ---
Patient's Visit Information RADHA SPENCER is a 75 year old F referred to Physical Therapy by Dr. Augusta Wilson DO with a diagnosis of abnormal gait and mobility, head injury, status post non traumatic intracra. Date of Evaluation: 10/21/20 Physical Therapist: Rusty Carl DPT - Visit Plan Frequency: 2-3x /Week Duration: 4-6 Weeks Plan: Start with BLE strength, static and Dynamic balance. HS stretching. PRogress gait tempo and endurance. - Subjective Pt. is here for her intial evaluation with diagnosis of abnormal gait and mobility, head injury, status post non traumatic intracerebral hemorrage with cranitomy. Pt. reprots having her surgery in June of 2020 and is doing better in that aspect. She is still having trouble with gait, general mobility, weakness. PMH: CVA multiple, low back fusion, history of multiple myoloma (remission). Pt. does wear an AFO, but has been wearing since her CVA. Pt. does reprot having B LE N/T, but has been there since her lumbar spine surgery. Pt. is using a walker with all mobility, but would like to get to something more mobile, ie rollator or cane. Pt. denies LE pain, but does have some low back pain constantly at 3-4/10. She is able to complete most bed mobiliy independently, uses a shower chair. Pt. is hopeful to improve overall mobility and increase LE strength for increased independence at home. - Pain lumbar spine Pain Intensity (Out of 10): 3 Pain Intensity Range: 2, 4 - Objective POSTURE: Pt. has general flexed posture in stance and heavy uses FWW when availble, but is able to stand without, but reports being fearful with out AD. PALPATION: No pain with palpation of BLEs. Pt. has no present edema in BLEs. NEURO: Pt. has normal sensation in BLEs. 3+ hyper reflexive R patellar and achilles DTR, 2+ L patellar, deminished 1+ of L achilles DTR. ROM: Pt. has good ROM in Bilateral knees and hips, but has very tight HS bilaterally. MMT: RLE 4/5 throughout; LLE- 4/5 throughout minus DF. GAIT: Pt. ambulates with FWW with SBA. Pt. has decreased step length bilaterally and difficutly with directional changes. Heavy use of AD. TU.8sec. 30 sec sit to stand test 5 with use of UEs. - Goals Goal 1:: LTG: Pt. to be I with HEP. Goal Time Frame: 4-6 Weeks Goal 2:: STG: Pt. to complete all bed mobility and sequencing I. Goal Time Frame: 4-6 Weeks Goal 3:: LTG: Pt. to ambulate MAX with FWW with improved tempo and good pattern allowing for safety with ambulation in community and home. Goal Time Frame: 4-6 Weeks Goal 4:: LTG: Pt. to have incerased TUG score to <30sec. Goal Time Frame: 4-6 Weeks Goal 5:: LTG: Pt. to have increased BLE strength increased by 1/2 grade throughout all effected musculature. Goal Time Frame: 4-6 Weeks Goal 6:: LTG: Pt. to have increased score with 30 sec sit to stand test to >8 reps. Goal Time Frame: 4-6 Weeks - Rehabilitation Potential Physical Therapy Diagnosis: Pt. has signs and symptoms conssitent with abnormal gait and mobility, head injury, status post non traumatic intracerebral hemorrage. Pt. has subsequent difficulty with gait, BLE weakness, and imbalance. She would benefit from PT to address the above limiations progressing back to as much independnce as she can achieve. Rehabilitation Potential: Good - Anticipated Interventions Patient/Client Instruction: Educate patient on: Condition, Plan of Care, Risk Factors, Benefits of Fitness Program For the Purpose of:: To improve decision making, To facilitate caregiver knowledge, To improve self management, To prevent re-injury, To improve ability to perform tasks related to life management, To improve tolerance to ADL's Therapeutic Exercise to Include: Strength training, Power training, Endurance training, Balance training, Coordination, Body mechanics, Postural training, Flexibilty training, Gait and locomotor training, Passive ROM, Active ROM For the Purpose of:: To decrease pain, To decrease swelling/inflammation, To increase ROM, To improve nutrient delivery to tissue, To increase oxygenation perfusion, To improve muscle performance and motor function, To improve ability to perform ADL's, To increase tolerance to activity/condition/position, To improve performance and independence with ADL's, To decrease level of supervision to perform tasks, To improve ability of physical actions for home/community/work/leisure, To improve gait and locomotor functions, To improve health of tissue, To decrease soft tissue restriction, To increase flexibility/ROM, To improve endurance, To improve balance Thank you for the opportunity to evaluate your patient. For Medicare and Medicare HMO plans, please review the plan of care and approve it. It will need to be FAXED BACK to us at [phone] for Medicare purposes. For Medicare only, by signing this I certify the plan of care. Please let me know if there are questions or concerns regarding this plan of care. Physician Signature: Date:
--- NOTE | 2020-11-11 14:46 | HP.PTREVAL_ITS ---
Dr. Augusta Wilson, DO, It has been my pleasure to treat RADHA SPENCER over the last 5 visits for abnormal gait and mobility, head injury, status post non traumatic intracra. Please see the progress note below for an update on the physical therapy plan of care! Subjective: Pt. arrives today using FWW. Pt. reports falling out of bed last wednesday and has had pain since. Pt. reports 9/10 pain upon arriving. Pt. has pain in WBing as well. Objective/Function: I checked Blessing out today. She arrived today with reports of falling last Wednesday while attempting to get out of bed. it got caught in the sheets and fell. She has been walking, but very gingerly. Pt. has marked swelling throughout ankle and foot. She is very tender along 5th metatarsal and at fibular head and proximal to the fibular head. She is able to tolerated WBing, but I am still conserned about fx. Due to her age, mech of injury and locATION pain of injury I would suggest she get an xray today. I sent her over to urgent care to do so. I will follow up with patient next visit pending results. If it is indeed a fracture of foot or ankle I would suggest her follow up with physician prior to returning to PT. Plan Plan: Cont. with POC pending xray results of R foot and ankle. Goals Goal 1:: LTG: Pt. to be I with HEP. Goal Time Frame: 4-6 Weeks Goal 2:: STG: Pt. to complete all bed mobility and sequencing I. Goal Time Frame: 4-6 Weeks Goal 3:: LTG: Pt. to ambulate MAX with FWW with improved tempo and good pattern allowing for safety with ambulation in community and home. Goal Time Frame: 4-6 Weeks Goal 4:: LTG: Pt. to have incerased TUG score to <30sec. Goal Time Frame: 4-6 Weeks Goal 5:: LTG: Pt. to have increased BLE strength increased by 1/2 grade throughout all effected musculature. Goal Time Frame: 4-6 Weeks Goal 6:: LTG: Pt. to have increased score with 30 sec sit to stand test to >8 reps. Goal Time Frame: 4-6 Weeks Anticipated Interventions Patient/Client Instruction: Educate patient on: Condition, Plan of Care, Risk Factors, Benefits of Fitness Program For the Purpose of:: To improve decision making, To facilitate caregiver knowledge, To improve self management, To prevent re-injury, To improve ability to perform tasks related to life management, To improve tolerance to ADL's Therapeutic Exercise to Include: Strength training, Power training, Endurance training, Balance training, Coordination, Body mechanics, Postural training, Flexibilty training, Gait and locomotor training, Passive ROM, Active ROM For the Purpose of:: To decrease pain, To decrease swelling/inflammation, To increase ROM, To improve nutrient delivery to tissue, To increase oxygenation p erfusion, To improve muscle performance and motor function, To improve ability to perform ADL's, To increase tolerance to activity/condition/position, To improve performance and independence with ADL's, To decrease level of supervision to perform tasks, To improve ability of physical actions for home/community/work/leisure, To improve gait and locomotor functions, To improve health of tissue, To decrease soft tissue restriction, To increase flexibility/ROM, To improve endurance, To improve balance Please do not hesitate to contact me at [phone] by phone or if you have questions or concerns regarding this new plan of care! Sincerely, Rusty Carl DPT
--- NOTE | 2020-12-30 17:34 | HP.PTREVAL ---
Dr. Augusta Wilson, DO, It has been my pleasure to treat RADHA SPENCER over the last 10 visits for abnormal gait and mobility, head injury, status post non traumatic intracra. Please see the progress note below for an update on the physical therapy plan of care! Subjective: Pt. reports my legs are sore and stiff today. She reports no falls over the past few weeks. She is still wearing her surgical shoe on her R foot after being diagnosed with a 5th metatarsal fx. Pt. has to wear the shoe for another 3 weeks. Objective/Function: Pt. tolerated all PT well without adverse reaction. Pt. trialed cane today with FRONT [employer] with good tolerance. Cont. to progress in order to increase stability with LRD. I added a lot of stretching today due to LE tightness and fatigue. 30sec sit to stand test: 5 reps with use of UEs. Pt. is MAX with FWW, but fatigues rapidly upto 500'. MMT: 4/5 throughout. TUsec with FWW. Plan Plan: Pt. is progressing, but did have a late start with PT due to having a 5th metatarsal fracture reducing frequency with PT. Pt. is back and is WBing as tolerated, but wearing a surgical shoe. She is to wear this a few more weeks. I would like to continue to work on stability with gait, dynamic balance, BLE strengthening. Goals Goal 1:: LTG: Pt. to be I with HEP. Goal Time Frame: 4-6 Weeks Goal 2:: STG: Pt. to complete all bed mobility and sequencing I. Goal Time Frame: 4-6 Weeks Goal Progress: Goal Met Goal 3:: LTG: Pt. to ambulate MAX with FWW with improved tempo and good pattern allowing for safety with ambulation in community and home. Goal Time Frame: 4-6 Weeks Goal Progress: Progressing Goal 4:: LTG: Pt. to have incerased TUG score to <30sec. Goal Time Frame: 4-6 Weeks Goal Progress: Progressing Goal 5:: LTG: Pt. to have increased BLE strength increased by 1/2 grade throughout all effected musculature. Goal Time Frame: 4-6 Weeks Goal Progress: Progressing Goal 6:: LTG: Pt. to have increased score with 30 sec sit to stand test to >8 reps. Goal Time Frame: 4-6 Weeks Goal Progress: Progressing Anticipated Interventions Patient/Client Instruction: Educate patient on: Condition, Plan of Care, Risk Factors, Benefits of Fitness Program For the Purpose of:: To improve decision making, To facilitate caregiver knowledge, To improve self management, To prevent re-injury, To improve ability to perform tasks related to life management, To improve tolerance to ADL's Therapeutic Exercise to Include: Strength training, Power training, Endurance training, Balance training, Coordination, Body mechanics, Postural training, Flexibilty training, Gait and locomotor training, Passive ROM, Active ROM For the Purpose of:: To decrease pain, To decrease swelling/inflammation, To increase ROM, To improve nutrient delivery to tissue, To increase oxygenation perfusion, To improve muscle performance and motor function, To improve ability to perform ADL's, To increase tolerance to activity/condition/position, To improve performance and independence with ADL's, To decrease level of supervision to perform tasks, To improve ability of physical actions for home/community/work/leisure, To improve gait and locomotor functions, To improve health of tissue, To decrease soft tissue restriction, To increase flexibility/ROM, To improve endurance, To improve balance Please do not hesitate to contact me at [phone] by phone or if you have questions or concerns regarding this new plan of care! Sincerely, Rusty Carl DPT
== END 2021-01-16 19:00 | disposition home or self-care (01) ==
LOC: PT 12:30
PROVIDERS: PCP Family Medicine; Referring Provider Family Medicine; Visit Provider Family Medicine
DX: I69.128 Other speech and language deficits following nontraumatic intracerebral hemorrhage (principal); S09.90XD Unspecified injury of head, subsequent encounter; R26.9 Unspecified abnormalities of gait and mobility
CPT/HCPCS: 92507; 92523; 97110; 97161; 97530

== ENCOUNTER 2021-01-21 11:17 | Emergency (ER) | payer MEDICARE, OTHER, SELFPAY ==
[2020-12-23 12:52] VITALS: BMI 26.5
[2021-01-21 11:19] VITALS: BP 121/29; PULSE 71; RESP 17; TEMP 37.1; O2SAT 91; BMI 27.7
--- NOTE | 2021-01-21 11:28 | RAD_ITS ---
STUDY: X-RAY - LEFT SHOULDER REASON FOR EXAM: Female, 75 years old. Fall TECHNIQUE: 2 view(s) of the shoulder. COMPARISON: None. FINDINGS: Normal glenohumeral articulation. Normal acromioclavicular joint. Normal acromion. Comminuted fracture of the proximal humeral diaphysis with medial apical angulation and greater than one shaft width displacement. The soft tissue structures are unremarkable. Normal visualized pulmonary apex. RAD/Shoulder min 2 Views IMPRESSION: Left proximal humeral fracture. Electronically Signed: Franky Cole MD (Brooks) at 11:59 EDT , Service support ,
--- NOTE | 2021-01-21 11:28 | RAD_ITS ---
STUDY: X-RAY - LEFT HUMERUS REASON FOR EXAM: Female, 75 years old. fall TECHNIQUE: 2 view(s) of the humerus. COMPARISON: None. FINDINGS: Comminuted fracture of the proximal humeral diaphysis with medial apical angulation and greater than one shaft width displacement. Soft tissue swelling. RAD/Humerus min 2 Views IMPRESSION: Left humeral proximal shaft fracture. Electronically Signed: Franky Cole MD (Brooks) at 11:59 EDT , Service support ,
--- NOTE | 2021-01-21 11:33 | ED.VIS.FALL ---
HPI HPI - Fall History of Present Illness Chief Complaint: Fall Narrative Narrative: Patient presenting for evaluation secondary to a fall with a left arm injury. Patient has a underlying history of myelodysplastic syndrome, frequent falls, past history of a subdural hematoma, past history of seizures and stroke. Patient states that she was on her front porch today and suffered a mechanical fall. She reports that she fell off of her porch basically flat on her face, denies that she hit her head or loss consciousness. She denies any visual changes numbness weakness nausea vomiting or confusion. She reports that she had injury to her left arm and shoulder. EMS reported that her arm was in a abnormal position behind her, did look deformed but seemed to improve when they placed her in a sling. Patient is reporting a moderate to severe amount of pain in the arm and shoulder. No numbness or weakness of the hand or wrist. She tells me that she is on a blood thinner but she is not sure what it is. [facility] Medical History Cancer Cellulitis Chronic neck and back pain Difficulty balancing when standing Limb weakness Meningioma Osteopenia Stroke Home Medications atorvastatin 80 mg PO QHS #30 tab 09/10/19 [Rx Last Taken 04/21/20] bupropion HCl 150 mg PO BID 09/26/19 [History Last Taken 04/22/20] tamsulosin 0.4 mg PO DAILY@1730 09/26/19 [History Last Taken 04/21/20] dexamethasone 20 mg PO WE 12/13/19 [History Last Taken 04/17/20] cholecalciferol (vitamin D3) 1,250 mcg PO DAILY 02/07/20 [History Last Taken 04/22/20] meclizine 25 mg PO Q8H PRN #16 tab 02/07/20 [Rx Last Taken Unknown] pantoprazole 40 mg PO DAILY 02/07/20 [History Last Taken 04/22/20] calcium carbonate 1,200 mg PO DAILY 04/17/20 [History Last Taken 04/22/20] mirabegron 25 mg PO DAILY 04/17/20 [History Last Taken 04/22/20] multivitamin with minerals 1 ea PO DAILY 04/17/20 [History Last Taken 04/22/20] Escitalopram Oxalate 10 mg PO DAILY #30 tab 05/20/20 [Rx Last Taken Unknown] acetaminophen 1,000 mg PO Q6H PRN PRN tab 05/20/20 [Rx Last Taken Unknown] gabapentin 100 mg PO BIDCM #60 cap 05/20/20 [Rx Last Taken Unknown] levetiracetam 1,000 mg PO Q12H #60 tab 05/20/20 [Rx Last Taken Unknown] menthol-zinc oxide 1 applic TOPICAL BID tube 05/20/20 [Rx Last Taken Unknown] mirtazapine 7.5 mg PO QHS #30 tab 05/20/20 [Rx Last Taken Unknown] polysaccharide iron complex 150 mg PO BIDCM #60 cap 05/20/20 [Rx Last Taken Unknown] furosemide 40 mg PO DAILY 06/04/20 [History Last Taken Unknown] enoxaparin 40 mg SC DAILY@0600 06/26/20 [History Last Taken Unknown] Allergy/AdvReac Type Severity Reaction Status Date / Time sulfamethoxazole Allergy Severe Other Verified 01/21/21 11:19 [From Bactrim] trimethoprim [From Bactrim] Allergy Severe Other Verified 01/21/21 11:19 indomethacin Allergy NEEDS Verified 01/21/21 11:19 FOLLOW-UP pneumococcal vaccine Allergy NEEDS Verified 01/21/21 11:19 FOLLOW-UP morphine AdvReac Severe Nausea Verified 01/21/21 11:19 Family History Mother Breast cancer Sister Breast cancer Aunt Breast cancer Daughter History of malignant melanoma Father Brain cancer Brother Lung cancer Surgical History History of back surgery History of brain surgery History of cholecystectomy History of hysterectomy Social History Smoking Status: Never smoker alcohol intake: never ROS ROS ED Constitutional Constitutional ED: Denies chills or fever(s) ENT ENT ED: Denies rhinorrhea Cardiovascular Cardiovascular: Denies chest pain Respiratory/Chest Respiratory/Chest: Denies cough or dyspnea Gastrointestinal Gastrointestinal: Denies abdominal pain, diarrhea, nausea or vomiting Genitourinary Genitourinary ED: Denies dysuria or hematuria Musculoskeletal Musculoskeletal: Reports other Details: Left arm pain ; Denies back pain Integumentary Denies rash Neurologic Neurologic: Denies paresthesias or weakness Psychiatric Psychiatric: Denies depression Endocrine Endocrinology: Denies fatigue Allergic/Immunologic Allergic/Immunologic ED: Denies urticaria EXAM Physical Exam Const Vital Signs: 01/21/21 11:19 01/21/21 13:22 Temperature 98.7 F Temperature Source Temporal Pulse Rate 71 69 Respiratory Rate 17 12 Respiratory Effort Normal Non-Labored Respiratory Depth Normal Respiratory Pattern Normal Blood Pressure 121/29 H 113/36 L Blood Pressure Mean 59 61 Pulse Ox 91 94 Oxygen Delivery Method Room Air Nasal Cannula Oxygen Flow Rate (L/min) 2 Positive well nourished and well developed Constitutional Narrative: Airway is patent, breath sounds are equal and bilateral, 2+ radial, 2+ DP pulses bilaterally symmetric. GCS is 15 out of 15. General Appearance ED: well developed and NAD HEENT Reports normocephalic and moist mucous membranes atraumatic; Negative for trauma or tenderness Eyes PERRL and EOMs intact bilaterally Neck full ROM, no lymphadenopathy, supple and no JVD Neck Narrative: No step-offs Chest Wall inspection of chest normal Resp normal respiratory effort and clear to auscultation bilaterally Cardio regular rate, regular rhythm and peripheral pulses 2+ throughout Heart Sounds: murmur other (2 out of 6 systolic) GI normal to inspection, nondistended, normoactive bowel sounds, non-tender and no masses Palpation: soft Back/Spine normal to inspection Extremity Extremity Narrative: Extremities are atraumatic except for exam of the patient's left upper extremity. Patient's left arm is in a sling that was fashioned by EMS. No pain or limitation of range of motion of the hand wrist or elbow. Patient starts to complain of pain at about the mid upper arm going up into the shoulder, no deformity noted of the clavicle. No obvious dislocation is noted. Normal distal sensation and pulses. General Extremety ED: Negative for tenderness Neuro oriented x3 and no sensory deficits noted Sensorium / Orientation: alert Motor Exam: strength 5/5 throughout Psych mental status grossly normal Skin no rashes or lesions noted Lesions: no lesions Rashes: no rashes MDM MDM MDM Narrative Medical decision making narrative: Patient presented secondary to a fall. Patient denies head injury, primary survey required no intervention secondary survey showed no other traumatic injuries other than the patient's injury to her left arm. Patient was given fentanyl prior to arrival. X-rays were obtained of the patient's left shoulder and left humerus. This shows a comminuted and displaced left humeral shaft fracture by my personal interpretation as well as radiology. Patient was given morphine, she was placed in a shoulder immobilizer. I discussed patient's case with orthopedics on-call, Dr. Vargas, who reviewed the patient's x-rays and stated that the fracture is very complicated and likely would require an upper extremity specialist and a larger orthopedic plate that would be available at this facility. Patient initially requested transfer to [facility], all [facility] beds are full. She then requested transfer to [facility], [facility] does not have any available beds. Patient then requested transfer to [facility], she was accepted in transfer. Patient will be transferred for definitive management of her humerus fracture. Radiography Diagnostic Testing: Radiology Impression Humerus X-Ray 01/21/21 11:28 IMPRESSION: Left humeral proximal shaft fracture. Electronically Signed: Franky Cole MD (Brooks) at 11:59 EDT , Service support , Shoulder X-Ray 01/21/21 11:28 IMPRESSION: Left proximal humeral fracture. Electronically Signed: Franky Cole MD (Brooks) at 11:59 EDT , Service support , Discharge Plan Triage Chief Complaint: Fall ED Provider: Mark Saucedo Dx/Rx/DC Orders Clinical Impression: Closed fracture of shaft of left humerus Prescriptions: No Action enoxaparin 40 MG/0.4 ML syringe 40 mg SC DAILY@0600 RF: 0 atorvastatin 80 MG tablet 80 mg PO QHS Qty: 30 RF: 0 bupropion HCl 150 MG tablet sustained-release 12 hr 150 mg PO BID RF: 0 tamsulosin 0.4 MG capsule 0.4 mg PO DAILY@1730 RF: 0 dexamethasone 4 mg tablet 20 mg PO WE RF: 0 cholecalciferol (vitamin D3) 1,250 MCG capsule 1,250 mcg PO DAILY RF: 0 pantoprazole 40 MG tablet 40 mg PO DAILY RF: 0 meclizine 25 MG tablet 25 mg PO Q8H PRN (Reason: Dizziness) Qty: 16 RF: 0 calcium carbonate 600 MG tablet 1,200 mg PO DAILY RF: 0 multivitamin with minerals 1 EACH tablet 1 ea PO DAILY RF: 0 mirabegron 25 MG tablet extended release 24 hr 25 mg PO DAILY RF: 0 polysaccharide iron complex 150 MG capsule 150 mg PO BIDCM Qty: 60 RF: 0 acetaminophen 500 MG tablet 1,000 mg PO Q6H PRN PRN (Reason: Pain Score 1-3/10) RF: 0 mirtazapine 15 MG tablet 7.5 mg PO QHS Qty: 30 RF: 0 gabapentin 100 MG capsule 100 mg PO BIDCM Qty: 60 RF: 0 menthol-zinc oxide 1 APPLIC ointment 1 applic TOPICAL BID RF: 0 levetiracetam 1,000 MG tablet 1,000 mg PO Q12H Qty: 60 RF: 0 Escitalopram Oxalate 10 MG tablet 10 mg PO DAILY Qty: 30 RF: 0 furosemide 40 MG tablet 40 mg PO DAILY RF: 0 Primary Care Provider: Augusta Wilson Referrals: Augusta Wilson DO [Primary Care Provider] - Disposition Disposition: Acute Care Hospital Discharge Location: [facility]
[2021-01-21] MEDS: Ondansetron 4 MG/2 ML Vial IV (12:38)
[2021-01-21] MEDS: HYDROmorphone 0.5 MG/0.5 ML SYRINGE IV (12:40)
[2021-01-21 13:22] VITALS: BP 113/36; PULSE 69; RESP 12; O2SAT 91; O2SAT 94
[2021-01-21 14:16] VITALS: BP 109/34; PULSE 67; RESP 13; O2SAT 97
== END 2021-01-21 14:18 | disposition short-term general hospital (02) ==
PROVIDERS: Emergency Provider Emergency Medicine; PCP Family Medicine
DX: S42.302A Unspecified fracture of shaft of humerus, left arm, initial encounter for closed fracture (principal); W17.89XA Other fall from one level to another, initial encounter; Y93.9 Activity, unspecified; Y92.008 Other place in unspecified non-institutional (private) residence as the place of occurrence of the external cause; Y99.9 Unspecified external cause status; R29.6 Repeated falls; Z86.73 Personal history of transient ischemic attack (TIA), and cerebral infarction without residual deficits
CPT/HCPCS: 73030; 73060; 96374; 96375; 99285; P9612; J2405

== ENCOUNTER 2021-01-31 11:59 | Inpatient (IN) | payer MEDICARE, OTHER, SELFPAY ==
[2021-01-31 12:05] VITALS: BP 157/54; PULSE 97; RESP 17; TEMP 36.7; O2SAT 99; BMI 24.5
--- NOTE | 2021-01-31 13:13 | SEPSISNOTE ---
Sepsis Note Physical Exam/Vitals Objective: Temp Pulse Resp BP Pulse Ox 98.1 F 97 17 157/54 H 99 01/31/21 12:05 01/31/21 12:05 01/31/21 12:05 01/31/21 12:05 01/31/21 12:05
--- NOTE | 2021-01-31 13:14 | EX.PCM.HP.RE ---
HPI - General General Date of Admission: 01/31/21 Date of Service: 01/31/21 Chief Complaint: Debility due to R humerus fracture and acute ischemic CVA HPI Narrative RADAH SPENCER, is a 75 F with a PMH of multiple myeloma (treated by Dr. Gómez), chronic DVT prophylaxis with Lovenox, hypertension, hyperlipidemia, history of meningioma (she has had gamma knife in the past), previous ischemic CVAs right MCA CVA in January 2019 with left-sided weakness), cerebrovascular disease with multiple cryptogenic strokes, depression/anxiety, low-grade myelodysplastic syndrome, vascular dementia, craniotomy in March of 2020 for SDH due to a fall, seizure disorder and essential tremor who recently (01/21/2021) had a fall going up some stairs due to a misstep. She told the ER doc she was on her front porch and fell on her face. There is no step on the front porch. There is 1 step to the back patio. she was not wearing the BL ankle AFO's she is prescribed. She fractured the proximal Left humeral shaft. She was discharged for the ED at [facility] to [facility] for further care. A CT without contrast of the brain done at [facility] showed a small acute/subacute appearing infarct in the right middle frontal gyrus. ICA's BL are < 50%m stenosed. Workup for hyperviscosity negative. No AF while at [facility]. No PFO on GILBERT and a normal EF. Blessing was transferred to the acute inpt rehab unit at [facility] on 01/31/21 for > 3 hours of therapy daily to return her to her level of function prior to the fracture and CVA. [facility] Medical History Cancer Cellulitis Chronic neck and back pain Difficulty balancing when standing Limb weakness Meningioma Osteopenia Resolved ischemic left middle cerebral artery (MCA) stroke in remote past Stroke Home Medications atorvastatin 80 mg PO QHS #30 tab 09/10/19 [Rx Last Taken 04/21/20] bupropion HCl 150 mg PO BID 09/26/19 [History Last Taken 04/22/20] tamsulosin 0.4 mg PO DAILY@1730 09/26/19 [History Last Taken 04/21/20] dexamethasone 20 mg PO WE 12/13/19 [History Last Taken 04/17/20] cholecalciferol (vitamin D3) 1,250 mcg PO DAILY 02/07/20 [History Last Taken 04/22/20] meclizine 25 mg PO Q8H PRN #16 tab 02/07/20 [Rx Last Taken Unknown] pantoprazole 40 mg PO DAILY 02/07/20 [History Last Taken 04/22/20] calcium carbonate 1,200 mg PO DAILY 04/17/20 [History Last Taken 04/22/20] mirabegron 25 mg PO DAILY 04/17/20 [History Last Taken 04/22/20] multivitamin with minerals 1 ea PO DAILY 04/17/20 [History Last Taken 04/22/20] Escitalopram Oxalate 10 mg PO DAILY #30 tab 05/20/20 [Rx Last Taken Unknown] acetaminophen 1,000 mg PO Q6H PRN PRN tab 05/20/20 [Rx Last Taken Unknown] levetiracetam 1,000 mg PO Q12H #60 tab 05/20/20 [Rx Last Taken Unknown] furosemide 40 mg PO DAILY 06/04/20 [History Last Taken Unknown] enoxaparin 40 mg SC DAILY@0600 06/26/20 [History Last Taken Unknown] gabapentin 100 mg PO BIDCM 01/31/21 [History Last Taken Unknown] menthol-zinc oxide 1 applic TOPICAL BID 01/31/21 [History Last Taken Unknown] mirtazapine 7.5 mg PO QHS 01/31/21 [History Last Taken Unknown] polysaccharide iron complex 150 mg PO BIDCM 01/31/21 [History Last Taken Unknown] Allergy/AdvReac Type Severity Reaction Status Date / Time sulfamethoxazole Allergy Severe Other Verified 01/21/21 11:19 [From Bactrim] trimethoprim [From Bactrim] Allergy Severe Other Verified 01/21/21 11:19 indomethacin Allergy NEEDS Verified 01/21/21 11:19 FOLLOW-UP pneumococcal vaccine Allergy NEEDS Verified 01/21/21 11:19 FOLLOW-UP morphine AdvReac Severe Nausea Verified 01/21/21 11:19 Family History Mother Breast cancer Sister Breast cancer Aunt Breast cancer Daughter History of malignant melanoma Father Brain cancer Brother Lung cancer Surgical History History of back surgery History of brain surgery History of cholecystectomy History of hysterectomy Social History Smoking Status: Never smoker alcohol intake: never ROS Review of Systems ROS Unobtainable: other Details: Blessing is known to have vascular dementia and some of the hx is not consistent with hx on old chart review. Constitutional Constitutional: Reports weakness; Denies anorexia, chills, fatigue or fever(s) Eyes Eyes: Denies change in vision ENT HEENT: Denies dysphagia, headache(s), nasal congestion or sore throat Cardiovascular Cardiovascular: Denies chest pain, edema or palpitations Respiratory/Chest Respiratory/Chest: Reports shortness of breath with exertion; Denies cough or shortness of breath at rest Gastrointestinal Gastrointestinal: Denies constipation, diarrhea, nausea or vomiting Genitourinary Genitourinary: Denies dysuria Musculoskeletal Musculoskeletal: Reports extremity pain and other Details: LUE pain due to recent fx of the L proximal humeral shaft due to a fall. She did not have surgery yet due to acute CVA. ; Denies back pain Integumentary Integumentary: Denies jaundice, rash or wounds Neurologic Neurologic: Reports confusion and weakness; Denies abnormal speech, dizziness, focal weakness, headache(s), numbness, seizures or sensory deficit Psychiatric Psychiatric: Reports anxiety and depression; Denies homicidal ideation or suicidal ideation Endocrine Endocrinology: Denies change in body appearance Hematologic/Lymphatic Hematologic/Lymphatic: Reports easy bleeding and easy bruising Vital Signs Vital Signs Vital Signs: 01/31/21 12:05 Temperature 98.1 F Temperature Source Oral Pulse Rate 97 Respiratory Rate 17 Blood Pressure 157/54 H Blood Pressure Mean 88 Blood Pressure Source Monitor Blood Pressure Position Semi-Fowlers Blood Pressure Location Right Arm Pulse Ox 99 Oxygen Delivery Method Room Air Weight Weight: 134 lb 7.712 oz Body Mass Index (BMI) 24.5 Indicators for Scoring Admitted with or Primary Diagnosis of CVA/Stroke: Yes Hx of CVA/Stroke: Yes Modified Hui Score MRS Score at time of Evaluation: 3-Moderate disability NIHSS NIHSS 1a. Level of Consciousness: Alert; keenly responsive 1b. LOC Questions: Answers one question correctly. 1c. LOC Commands: Performs both tasks correctly. 2. Best Gaze: Normal 3. Visual: No visual loss 4. Facial Palsy: Normal symmetrical movements 5a. Left Arm: UN=Amputation or joint fusion, explain: The Left UE is in a cast and immobilized due to recent proximal humer fract 5b. Right Arm: No drift; arm holds 90 (or 45) degrees for full 10 seconds 6a. Left Leg: No drift; leg holds 30-degree position for full 5 seconds 6b. Right Leg: No drift; leg holds 30-degree position for full 5 seconds 7. Limb Ataxia: Absent 8. Sensory: Normal; no sensory loss 9. Best Language: No aphasia; normal 10. Dysarthria: Normal 11. Extinction and Inattention: No abnormality Total: 1 Physical Exam Const alert Constitutional Narrative: She is oriented to person, place but thought it was May and she could not tell me the year. HEENT normocephalic Mouth: dry mucous membranes Eyes PERRL and EOMs intact bilaterally Neck supple Neck Narrative: soft R carotid bruit Lymph Lymphatic: no lymphadenopathy noted Resp normal respiratory effort, normal air movement and clear to auscultation bilaterally Effort and Inspection: Negative for tachypneic, respiratory distress or uses accessory muscles Cardio regular rate, regular rhythm, S1 normal heart sound, S2 normal heart sound, no rub and no gallops Cardio Narrative: second RICS with radiation to the LVOT Heart Sounds: murmur GI normal to inspection, nondistended, normoactive bowel sounds, soft to palpation and non-tender Extremity no clubbing, cyanosis or edema and no calf tenderness Skin General Skin Exam: no breakdown Rashes: no rashes Neuro CN's II-XII intact bilaterally, no focal motor deficits and no sensory deficits noted Neuro Narrative: Can not evaluate the LUE for focal motor deficit due to the immobilization and cast for the humeral fx. She has trouble with word finding. Coordination / Balance: [id number] test normal Speech: speech normal Psych affect normal, denies homicidal ideation and denies suicidal ideation Psych Narrative: making good eye contact, pleasant, talkative. Does not seem anxious. Good modulation of her voice. Appearance: appropriate Thought Content: No hallucination(s) Assessment & Plan Assessment/Plan (1) Debility: (2) Ischemic cerebrovascular accident (CVA): (3) Closed fracture of shaft of left humerus: QUALIFIERS: Encounter type: subsequent encounter Fracture morphology: comminuted (4) Vascular dementia: (5) Cognitive dysfunction: (6) Multiple falls: (7) MDS (myelodysplastic syndrome), low grade: (8) Myeloma: QUALIFIERS: Multiple myeloma remission status: in remission Qualified Code(s): C90.01 - Multiple myeloma in remission (9) Anemia: QUALIFIERS: Anemia type: bone marrow failure (10) Meningioma: (11) Cerebrovascular disease: (12) HLD (hyperlipidemia): (13) Anxiety and depression: (14) Essential tremor: (15) Low back pain: (16) Hypertension: (17) Neuropathic pain: (18) Chronic anticoagulation: (19) Encephalopathy: (20) Seizure disorder: (21) S/P craniotomy: PLAN: PLAN PT for gait stability OT for ADL's ST for evaluation Analgesics as needed Bowel protocol Fall precautions Assess for Anxiety/Depression GI prophylaxis with pantoprazole DVT prophylaxis with Lovenox 40 mg subcu daily Follow up with Dr. [facility] at [facility], PCP following DC from [facility] Rehab Charges/Coding Visit Charges Inpatient E&M: 74480 Init Hosp L3
--- NOTE | 2021-01-31 13:38 | PCM.RU.PYE ---
Admission Information Primary Diagnosis:: Physical debility secondary to recent right frontal ischemic CVA and left proximal humeral fracture Status Changes from Prescreening?: No changes Identified Actual Problem List:: Falls, Pain, ALteration in Cmfrt, Cognitve Impr/Memory Loss, Bowel, Incontinence, Mobility Impaired, Self Care Deficit and Alteration-Leisure Activ. Potential Problem List:: Bleeding, Infection, UTI, Falls, Skin Integrity and Depression Risk of Complications DVT: LMWH, RICKIE Hose and - Bleeding: Monitor Lab Values, Nursing to Teach Precautions for anti-coagulation therapy., Wound, if applicable, to be assessed every shift. and Stroke patients assessed for lethargy or change in status. Infection: Clinical Staff to Monitor for S/S of infection: and S/S of infection include fever, redness, warmth, etc. Urinary Tract Infection: Monitor for frequency, burning, discomfort, or incontinence. and Nursing will obtain urine sample for urinalysis and C&S when ordered. Aspiration: Clinical staff will monitor for coughing, drooling, congestion., Speech will evaluate swallowing and dsyphasia. and Nursing will monitor patient swallowing during meals. Falls: Patient will be evaluated for Fall Precautions and Patient will be placed on Fall Precautions as indicated per protocol. Skin Breakdown: Nursing will assess skin daily using assessment tool. and Nursing will place on Skin Breakdown Precautions as indicated. Pain: Clinical staff will assess patient's pain level per protocol., Medications will be given, if needed, and the pain level reassessed. and Other methods: Massage, distraction, decrease stimulus, etc. used PRN. Plan of Care Patient requires physician specializing in physical medicine and rehab oversight to provide close medical supervision of rehab issues including: Pain Management, Sleep Problems, Bowel and Bladder, Medical and co-morbidity Management, DVT prophylaxis, Rehabilitation Leadership and Coordination of treatment team Patient needs Physical Therapy: For a minimum of 1 hour and At least 5 out of 7 days Patient needs Physical Therapy to improve:: Mobility, Strengthening, Transfers, Stretching, ROM, Endurance, Stairs, Gait and Balance Patient needs Occupational Therapy: For a minimum of 1 hour and At least 5 out of 7 days Patient needs Occupational Therapy to improve ADL's incl.: Eating, Grooming, Bathing, Dressing, Toileting, Toilet transfers, Community Reintegration, Higher functioning activities, Household tasks, Adaptive Equipment, Splinting and Other activities as determined Patient requires speech therapy: For a minimum of 1 hour and At least 5 out of 7 days Patient requires speech therapy for: Swallowing, Cognition, Language Skills and Compensatory Strategies Patient requires 24/ Rehabilitation Nursing for: Pain Issues, Identifying and preventing risk factors, Monitoring and reporting current medical conditions, Assisting with ambulation, transfer, and all ADL's, Teaching patients about disease process and medications, Family teaching, Providing safe environment, Bowel and Bladder Issues, Skin integrity and Medication Management Patient needs Hazardous Waste Management Specialist/ Case Management for: Discharge Planning, Arranging Home Equipment or Services and Family Interventions Patient needs Dietary and Nutrition Services for: Adequate Nutrition, Nutritional Supplements and Nutritional Education Goals Patient will remain: free from falls and or injury at time of discharge. Patient will perform bed mobility at: MOD I level of assist. Patient will complete transfers from bed to chair at: MOD I level of assist. Patient will ambulate: 100 feet and with LRD Patient will complete upper body dressing at: MOD I level of assist. Patient will complete lower body dressing at: MOD I level of assist. Patient will complete toileting at: MOD I level of assist. Patient will perform bathing at: MOD I level of assist. Patient will complete grooming at: MOD I level of assist. Patient will complete home management skills at: MOD I level of assist. Patient will achieve: - (1 curb step) Patient will have pain level of: of 3 or less Patient's skin will: remain intact Patient will receive: adequate nutrition. Discharge Planning Pt Prognosis for Sig. Practical Improv. w/in Reasonable Time: Good Estimated Length of stay (days): 14 Anticipated D/C Destination: Home with Home Health Was Preadmission Assessment Accurate?: Yes
--- NOTE | 2021-01-31 14:12 | NURSING ---
pt's made aware of TEAM meeting day and visiting hours while in RU. pt's requesting that he be able to bring her dog in to visit her. will ask dr. kinney for clarification.
--- NOTE | 2021-01-31 14:21 | NURSING ---
pt states that she had glasses during transport to [facility] and they are not here with pt. [facility] called to see if they have glasses.
[2021-01-31 16:10] VITALS: O2SAT 96
--- NOTE | 2021-01-31 17:39 | NURSING ---
[facility] called and they did not have the glasses that pt states she had in transport. they checked the truck and cot. [facility] called to see if they had the pt's glasses. [facility] states the patient was sent with all belongings from [facility].
[2021-01-31 19:36] VITALS: BP 120/38; PULSE 93; RESP 16; TEMP 36.4; O2SAT 96
[2021-01-31 20:07] VITALS: PULSE 88; O2SAT 96
[2021-01-31] MEDS: Gabapentin 600 MG Tablet PO (21:25)
[2021-01-31] MEDS: buPROPion (SR) 150 MG Tablet.SA PO (21:25)
[2021-01-31] MEDS: Atorvastatin Calcium 80 MG Tablet PO (21:25)
[2021-01-31] MEDS: MELATONIN 10 MG TABLET PO (21:25)
[2021-02-01] MEDS: Enoxaparin 30 MG/0.3 ML Syringe SC (06:22)
[2021-02-01 08:14] VITALS: BP 139/59; PULSE 86; RESP 16; TEMP 36.5; O2SAT 98
[2021-02-01] MEDS: Tamsulosin HCl 0.4 MG Capsule PO (08:55)
[2021-02-01] MEDS: Gabapentin 600 MG Tablet PO ×2 (08:55→20:00)
[2021-02-01] MEDS: Pantoprazole Sodium 40 MG Tablet PO (08:55)
[2021-02-01] MEDS: Aspirin 81 MG TAB.CHEW PO (08:55)
[2021-02-01] MEDS: buPROPion (SR) 150 MG Tablet.SA PO ×2 (08:56→20:01)
[2021-02-01] MEDS: Escitalopram Oxalate 20 MG Tablet PO (08:56)
[2021-02-01 13:10] VITALS: O2SAT 92
[2021-02-01 19:14] VITALS: BP 137/64; PULSE 100; RESP 18; TEMP 36.5; O2SAT 96
[2021-02-01 19:35] VITALS: BMI 24.5
[2021-02-01 19:43] VITALS: PULSE 100; RESP 17; O2SAT 97
[2021-02-01] MEDS: Atorvastatin Calcium 80 MG Tablet PO (19:59)
[2021-02-01] MEDS: MELATONIN 3 MG TABLET PO (20:00)
[2021-02-02] MEDS: Enoxaparin 40 MG/0.4 ML Syringe SC (05:49)
[2021-02-02] MEDS: Aspirin 81 MG TAB.CHEW PO (08:06)
[2021-02-02] MEDS: Gabapentin 600 MG Tablet PO ×2 (08:06→20:15)
[2021-02-02] MEDS: Escitalopram Oxalate 20 MG Tablet PO (08:06)
[2021-02-02] MEDS: buPROPion (SR) 150 MG Tablet.SA PO ×2 (08:06→20:14)
[2021-02-02] MEDS: Pantoprazole Sodium 40 MG Tablet PO (08:06)
[2021-02-02] MEDS: Tamsulosin HCl 0.4 MG Capsule PO (08:06)
[2021-02-02 08:17] VITALS: BP 123/50; PULSE 87; RESP 16; TEMP 36.8; O2SAT 96
[2021-02-02 10:37] VITALS: BMI 24.5
[2021-02-02 18:58] VITALS: BP 105/59; PULSE 92; RESP 18; TEMP 36.6; O2SAT 93
[2021-02-02] MEDS: Acetaminophen 325 MG Tablet 650 MG PO (19:58)
[2021-02-02 20:02] VITALS: RESP 17; O2SAT 96
[2021-02-02] MEDS: Atorvastatin Calcium 80 MG Tablet PO (20:15)
[2021-02-02] MEDS: MELATONIN 3 MG TABLET PO (20:15)
[2021-02-02 20:19] VITALS: BMI 24.5
[2021-02-03] MEDS: Enoxaparin 40 MG/0.4 ML Syringe SC (06:11)
[2021-02-03] MEDS: Aspirin 81 MG TAB.CHEW PO (07:39)
[2021-02-03] MEDS: Escitalopram Oxalate 20 MG Tablet PO (07:40)
[2021-02-03] MEDS: buPROPion (SR) 150 MG Tablet.SA PO ×2 (07:40→20:09)
[2021-02-03] MEDS: Tamsulosin HCl 0.4 MG Capsule PO (07:40)
[2021-02-03] MEDS: Pantoprazole Sodium 40 MG Tablet PO (07:40)
[2021-02-03] MEDS: Gabapentin 600 MG Tablet PO ×2 (07:40→20:09)
[2021-02-03 08:20] VITALS: BP 132/60; PULSE 87; RESP 16; TEMP 36.6; O2SAT 96
[2021-02-03 09:27] VITALS: BMI 24.5
--- NOTE | 2021-02-03 09:44 | CASEMGMT ---
Social Work Physician requested Palliative referral r/t multiple qualifying diagnosis and assistance at ID. Referral made to [facility]. STEFAN BerryW
[2021-02-03] MEDS: Acetaminophen 325 MG Tablet 650 MG PO ×2 (11:21→18:16)
--- NOTE | 2021-02-03 13:40 | NURSING ---
Addendum entered by Kandi Domingo 02/03/21 16:08: Received call from Arlin at Dr Starr's office. Pt needs to be seen in office to have the brace applied. This nurse explained that pt is on an inpatient rehab unit at [facility] and that the is not able to transport pt d/t the pt required x2 assist for care. This nurse made Arlin aware that pt has a DC date of 02/23 and asked if the pt can be seen in the office on that day. Arlin stated she will send a message to the physician and call us back tomorrow Original Note: Message left with Dr Ro Oliveros's ([facility]) hotshot superintendent, in regards to a shoulder brace that the pt's told staff the pt was supposed to receive while in Inpatient Rehab.
--- NOTE | 2021-02-03 14:01 | CASEMGMT ---
Social Work Spoke with to advise Team meeting is at 10 am. understood. STEFAN BerryW
--- NOTE | 2021-02-03 16:29 | CHAPLAIN ---
Type of Pastoral Visit _x__ Initial Visit ___ Follow-up Visit ___ On-call Visit ___ General Patient Visit ___ Spiritual Assessment ___ Family Conference ___ Bereavement ___ Rapid Response ___ Code Blue ___ Other (describe below) Pastoral Care Referral From _x__ Patient ___ Family ___ Nurse ___ Physician ___ Restaurant Lead ___ Prefitter ___ Other (describe below) Sacrament/Intervention _x__ Active listening ___ Anointing ___ Confucianist ___ Bereavement ___ Communion ___ Orly exploration ___ _x__ Life review _x__ Prayer ___ Reconciliation ___ Sacrament of Sick _x__ Supportive presence ___ Wedding ___ Other (describe below) Pastoral Comments patient has been seen at previous times in prior admissions; pt gives update on health and life; pt is tearful in much of the conversation as she feels like the end of my life; pt goal is to improve health and have time to be with the people I want to be with; pt is very thankful for support of her spouse and wants him to have more access to her in the hospital.
[2021-02-03] MEDS: oxyCODONE 5 MG Tablet PO (19:11)
[2021-02-03 19:19] VITALS: BP 133/55; PULSE 89; RESP 17; TEMP 36.2; O2SAT 95
[2021-02-03 19:41] VITALS: PULSE 82; RESP 16; O2SAT 95
[2021-02-03 19:45] VITALS: BMI 24.5
[2021-02-03] MEDS: Atorvastatin Calcium 80 MG Tablet PO (20:08)
[2021-02-03] MEDS: MELATONIN 3 MG TABLET PO (20:08)
[2021-02-03] MEDS: Senna/Docusate Sodium 1 Tablet 2 TABLET PO (20:09)
[2021-02-03] MEDS: Acetaminophen 500 MG Tablet 1000 MG PO (21:12)
[2021-02-04] MEDS: Enoxaparin 40 MG/0.4 ML Syringe SC (05:37)
[2021-02-04] MEDS: Acetaminophen 500 MG Tablet 1000 MG PO ×3 (05:37→21:48)
[2021-02-04] MEDS: Gabapentin 600 MG Tablet PO ×2 (07:50→21:48)
[2021-02-04] MEDS: Aspirin 81 MG TAB.CHEW PO (07:50)
[2021-02-04] MEDS: Pantoprazole Sodium 40 MG Tablet PO (07:50)
[2021-02-04] MEDS: Escitalopram Oxalate 20 MG Tablet PO (07:50)
[2021-02-04] MEDS: buPROPion (SR) 150 MG Tablet.SA PO ×2 (07:50→21:48)
[2021-02-04] MEDS: Tamsulosin HCl 0.4 MG Capsule PO (07:50)
[2021-02-04] MEDS: oxyCODONE 5 MG Tablet PO ×3 (07:52→21:49)
[2021-02-04 08:27] VITALS: BP 121/60; PULSE 81; RESP 16; TEMP 36.4; O2SAT 98
[2021-02-04 09:32] VITALS: BMI 24.5
--- NOTE | 2021-02-04 14:46 | PCM.CONS.P ---
Assessment & Plan Assessment/Plan (1) Debility: (2) Multiple falls: (3) Closed fracture of shaft of left humerus: QUALIFIERS: Encounter type: subsequent encounter Fracture alignment: nondisplaced Fracture healing: with routine healing Fracture morphology: comminuted Qualified Code(s): S42.355D - Nondisplaced comminuted fracture of shaft of humerus, left arm, subsequent encounter for fracture with routine healing (4) Neuropathic pain: (5) Low back pain: (6) Vascular dementia: QUALIFIERS: Dementia behavioral disturbance: without behavioral disturbance Qualified Code(s): F01.50 - Vascular dementia without behavioral disturbance (7) Anxiety and depression: (8) Meningioma: (9) Cerebrovascular disease: (10) Cognitive dysfunction: (11) MDS (myelodysplastic syndrome), low grade: (12) Myeloma: QUALIFIERS: Multiple myeloma remission status: in remission Qualified Code(s): C90.01 - Multiple myeloma in remission (13) Ischemic cerebrovascular accident (CVA): (14) Subdural hematoma: (15) Seizure disorder: (16) S/P craniotomy: (17) Iron deficiency anemia: QUALIFIERS: Iron deficiency anemia type: unspecified iron deficiency Qualified Code(s): D50.9 - Iron deficiency anemia, unspecified PLAN: 75-year-old female with recent history of ischemic CVA and fall status post closed fracture of left humeral shaft, seen today for initial palliative care consultation secondary to pain and weakness, advanced neurological disease with vascular dementia, as well debility and recurrent hospitalizations. The family has requested evaluation. 1. Cognitive deficits: Multiple strokes in the past, vascular dementia, meningioma status post GK, seems to be declining per family. Nursing concerned that pain medication will alter her cognitive status. See below 2. Acute left upper extremity pain secondary to fracture: Agree with current pain medication regimen, arm in sling. She does have 5 to 10 mg of oxycodone available every 6 hours as needed, encourage nursing staff to medicate if she is in pain. Patient is a fall risk, however has chair alarm on. Will need monitored closely. We will adjust medications as needed. 3. Chronic low back pain: Scheduled Tylenol, as needed Oxy, therapy, heating pad or ice as needed 4. Anxiety and depression: In conjunction with her vascular dementia. She is on bupropion and escitalopram. Defer management to hospitalist. 5. MDS/seizure disorder/JUSTA/history of CVA: Complicates overall care, management, recovery, and prognosis. Defer management to specialists and attending. Thank you for the opportunity to participate in this patient's care, please do not hesitate to contact [facility] with any further questions or concerns. Palliative direct line is [phone]. We will follow up prn while in hospital and routinely after discharge to home. Greater than 50% of F2F visit dedicated to education and counseling of palliative care services, medications, comorbid conditions and potential assistance with management, and plan of care moving forward. He is agreeable to palliative services once he is discharged from TCU. Start time: 1450 End time: 1545 HPI Consult Data Date of Consult: 02/04/21 HPI Narrative HPI Narrative: RADHA SPENCER, is a 75 F who presented to [facility] 01/21/2021 after a fall going up some stairs. Patient has a history of multiple myeloma and follows with Dr. Gómez. She is anticoagulated with Lovenox for chronic DVT. He also has a history of meningioma status post gamma knife therapy. Patient has had multiple cryptogenic strokes, had a right MCA in January 2019 with ongoing left-sided weakness. Also history of vascular dementia given all her strokes. She had a craniotomy in March 2020 for a subdural hematoma secondary to fall and was put on antiseizure medications. Other past medical history as below. Palliative care was consulted secondary to the patient's dementia, stroke, and overall functional decline. She has had frequent unplanned hospitalizations as well. The family is requesting palliative services. Patient apparently had AFO prescribed for bilateral ankles for ambulation, which she does not wear. She sustained a proximal left humeral shaft fracture. She was transferred to [facility] for further evaluation and management. A CT of the brain showed a small acute/subacute infarct in the right middle frontal gyrus. Carotid ultrasound showed bilateral stenosis less than 50%. She was stabilized and then transferred to [facility] inpatient rehab 01/31 for ongoing therapy. Nursing reports patient has been very confused at baseline. She has had significant cranial insult due to the above. She has a hard time following directions and staying on track. Speech therapy reports significant cognitive deficits. It took time 17 minutes to sort out 25 cards. Patient reports significant pain to the left upper extremity. She has a hard time articulating her pain. Currently taking gabapentin 600 mg twice daily, 1 g of acetaminophen every 8 hours scheduled, oxycodone 5 to 10 mg every 6 hours as needed. Nursing reports oxycodone seems to be partially effective. It appears patient was given 5 mg of oxycodone at 0752 today, otherwise only one other time 02/03 at 1911. She is a FAST stage 6c-6d. Still continent of bowel, sometimes incontinent of bladder. Ambulatory. Able to converse but nonsensical at times. [facility] Medical History Cancer Cellulitis Chronic neck and back pain Difficulty balancing when standing Limb weakness Meningioma Osteopenia Resolved ischemic left middle cerebral artery (MCA) stroke in remote past Stroke Home Medications atorvastatin 80 mg PO QHS #30 tab 09/10/19 [Rx Last Taken 04/21/20] bupropion HCl 150 mg PO BID 09/26/19 [History Last Taken 04/22/20] tamsulosin 0.4 mg PO DAILY@1730 09/26/19 [History Last Taken 04/21/20] dexamethasone 20 mg PO WE 12/13/19 [History Last Taken 04/17/20] cholecalciferol (vitamin D3) 1,250 mcg PO DAILY 02/07/20 [History Last Taken 04/22/20] meclizine 25 mg PO Q8H PRN #16 tab 02/07/20 [Rx Last Taken Unknown] pantoprazole 40 mg PO DAILY 02/07/20 [History Last Taken 04/22/20] calcium carbonate 1,200 mg PO DAILY 04/17/20 [History Last Taken 04/22/20] mirabegron 25 mg PO DAILY 04/17/20 [History Last Taken 04/22/20] multivitamin with minerals 1 ea PO DAILY 04/17/20 [History Last Taken 04/22/20] Escitalopram Oxalate 10 mg PO DAILY #30 tab 05/20/20 [Rx Last Taken Unknown] acetaminophen 1,000 mg PO Q6H PRN PRN tab 05/20/20 [Rx Last Taken Unknown] levetiracetam 1,000 mg PO Q12H #60 tab 05/20/20 [Rx Last Taken Unknown] furosemide 40 mg PO DAILY 06/04/20 [History Last Taken Unknown] enoxaparin 40 mg SC DAILY@0600 06/26/20 [History Last Taken Unknown] gabapentin 100 mg PO BIDCM 01/31/21 [History Last Taken Unknown] menthol-zinc oxide 1 applic TOPICAL BID 01/31/21 [History Last Taken Unknown] mirtazapine 7.5 mg PO QHS 01/31/21 [History Last Taken Unknown] polysaccharide iron complex 150 mg PO BIDCM 01/31/21 [History Last Taken Unknown] Allergy/AdvReac Type Severity Reaction Status Date / Time sulfamethoxazole Allergy Severe Other Verified 01/21/21 11:19 [From Bactrim] trimethoprim [From Bactrim] Allergy Severe Other Verified 01/21/21 11:19 indomethacin Allergy NEEDS Verified 01/21/21 11:19 FOLLOW-UP pneumococcal vaccine Allergy NEEDS Verified 01/21/21 11:19 FOLLOW-UP morphine AdvReac Severe Nausea Verified 01/21/21 11:19 Family History Mother Breast cancer Sister Breast cancer Aunt Breast cancer Daughter History of malignant melanoma Father Brain cancer Brother Lung cancer Surgical History History of back surgery History of brain surgery History of cholecystectomy History of hysterectomy Social History Smoking Status: Never smoker alcohol intake: never ROS ROS Narrative Limited ROS secondary to cognitive deficits. She denies any other complaints other than what is listed in HPI. Review of Systems ROS Unobtainable: due to mental status Physical Exam Const alert and no apparent distress General Appearance: cooperative Orientation / Consciousness: oriented to person and confused Nutritional Appearance: obese Eyes General Eye: normal appearance of both eyes Neck supple General: trachea midline Resp Effort and Inspection: able to speak in complete sentences Auscultation: clear to auscultation bilaterally and diminished lung sounds Cardio S1 normal heart sound and S2 normal heart sound GI normal to inspection, nondistended, normoactive bowel sounds Extremity Extremity Narrative: Tenderness to the left upper extremity, clear down to the fingertips. Mildly edematous, able to move fingers. No cyanosis. Skin no rashes or lesions noted Neuro Neuro Narrative: Limited neuro exam secondary to cognitive deficit. No focal deficits were identified. Speech is clear. Able to follow commands but needs redirected often.
--- NOTE | 2021-02-04 15:52 | NURSING ---
Addendum entered by Kandi Domingo 02/04/21 16:27: Received call from Arlin At Dr Sin office-Dr abbott request that we call in 7-10 days with an update on how pt's shoulder is doing and she will decide when pt will need brace place Original Note: Received call from Arlin at Dr Starr's office. Dr Starr's would like to see pt in office prior to pt being dc'd for rehab. Explained to Arlin that the pt is a x2 assist and that the could not safely transport pt to the office. Arlin is going to sent a message to Dr Starr to see if the brace can be place here, she will call back tomorrow.
--- NOTE | 2021-02-04 17:42 | PCM.PROGNOTE ---
Subjective Subjective Afebrile Vital signs are stable and the blood pressure is well controlled. She is maintaining appropriate oxygen saturation on room air. Heart rate is within normal limits. Fair oral intake Discussed with nursing - no problems that need addressed Reviewed the PT/OT/ST notes Medication list reviewed. The pain is better since Oxycodone 5 mg was added to her drug regimen. The pain increases when she is doing therapy. She thinks we could do better with pain control. she is not drowsy with the Oxycodone and the confusion is no worse. Objective Data Objective Data Vital Signs: Vital Signs Temp Pulse Resp BP Pulse Ox 97.5 F L 81 16 121/60 H 98 02/04/21 08:27 02/04/21 08:27 02/04/21 08:27 02/04/21 08:27 02/04/21 08:27 Oxygen Delivery Method Room Air Weight: 134 lb 7.712 oz Body Mass Index (BMI) 24.5 Intake & Output: Intake and Output for Last 24 Hours 02/02/21 02/03/21 02/04/21 23:59 23:59 23:59 Intake Total 1500 / 1500 960 / 1080 840 / 840 Output Total 300 / 400 550 / 850 850 / 850 Balance 1200 / 1100 410 / 230 -10 / -10 Lab / Micro Data Result Diagrams: 02/07/21 05:40 02/07/21 05:40 Physical Exam Const alert and no apparent distress Constitutional Narrative: She was seen sitting on the mat in the therapy room General Appearance: cooperative HEENT moist oral mucous membranes Resp normal respiratory effort and clear to auscultation bilaterally Cardio regular rate, regular rhythm, S1 normal heart sound, S2 normal heart sound and no gallops GI soft to palpation, non-tender and non-distended Palpation: Negative for guarding Extremity no calf tenderness Extremity Narrative: the swelling in the Left UE has decreased a little General Extremity: Negative for edema Skin General Skin Exam: no breakdown Rashes: no rashes Neuro CN's II-XII intact bilaterally Neuro Narrative: difficulty with balance more than usual since the LUE is in a sling Motor Exam: general weakness Psych Appearance: appropriate Assessment & Plan Assessment/Plan (1) Physical debility: (2) Closed fracture of shaft of left humerus: QUALIFIERS: Encounter type: subsequent encounter Fracture morphology: comminuted Fracture alignment: nondisplaced Fracture healing: with routine healing Qualified Code(s): S42.355D - Nondisplaced comminuted fracture of shaft of humerus, left arm, subsequent encounter for fracture with routine healing (3) Multiple falls: (4) Vascular dementia: QUALIFIERS: Dementia behavioral disturbance: without behavioral disturbance Qualified Code(s): F01.50 - Vascular dementia without behavioral disturbance PLAN: 1. continue therapy.........the vascular dementia complicates therapy and slows things down because she can not recall from one day to the next what she is supposed to do with the ezio-walker.......which is a new AD for her. PT is going to work with her on steps while she is in rehab so that she can navigate a curb and be safe on the step she has down to the patio at home. 2. She denied pain to me today. Will continue with the 5-10 of oxycodone for pain but, if she seems sleepy during therapy will decrease back to 5 mg. 3. she will follow up with ortho in the next 1-2 weeks. Charges/Coding Visit Charges Inpatient E&M: 05605 Subs Hosp L2
[2021-02-04 21:00] VITALS: BP 106/63; PULSE 87; RESP 16; TEMP 36.5; O2SAT 95; BMI 24.5
[2021-02-04] MEDS: MELATONIN 3 MG TABLET PO (21:48)
[2021-02-04] MEDS: Atorvastatin Calcium 80 MG Tablet PO (21:48)
[2021-02-05] MEDS: Enoxaparin 40 MG/0.4 ML Syringe SC (05:24)
[2021-02-05] MEDS: Acetaminophen 500 MG Tablet 1000 MG PO ×3 (05:24→20:21)
[2021-02-05 07:56] VITALS: BP 107/36; PULSE 73; RESP 16; TEMP 36.3; O2SAT 95
[2021-02-05] MEDS: Gabapentin 600 MG Tablet PO ×2 (08:44→20:23)
[2021-02-05] MEDS: Aspirin 81 MG TAB.CHEW PO (08:44)
[2021-02-05] MEDS: Pantoprazole Sodium 40 MG Tablet PO (08:44)
[2021-02-05] MEDS: Tamsulosin HCl 0.4 MG Capsule PO (08:44)
[2021-02-05] MEDS: Escitalopram Oxalate 20 MG Tablet PO (08:44)
[2021-02-05] MEDS: buPROPion (SR) 150 MG Tablet.SA PO ×2 (08:45→20:22)
--- NOTE | 2021-02-05 13:44 | PCM.PROGNOTE ---
Subjective Subjective Tells me that the 10 mg of Oxycodone works better than the 5 VSS Afebrile Maintaining appropriate oxygen saturation on RA Good intake I reviewed the therapy notes. she is sleeping OK per nursing but sometimes is restless when Nils leaves at night All lab was personally reviewed Objective Data Objective Data Vital Signs: Vital Signs Temp Pulse Resp BP Pulse Ox 97.4 F L 73 16 107/36 L 95 02/05/21 07:56 02/05/21 07:56 02/05/21 07:56 02/05/21 07:56 02/05/21 07:56 Oxygen Delivery Method Room Air Weight: 134 lb 7.712 oz Body Mass Index (BMI) 24.5 Intake & Output: Intake and Output for Last 24 Hours 02/03/21 02/04/21 02/05/21 23:59 23:59 23:59 Intake Total 960 / 1080 1395 / 1395 420 / 420 Output Total 550 / 850 850 / 850 Balance 410 / 230 545 / 545 420 / 420 Lab / Micro Data Result Diagrams: 02/07/21 05:40 02/07/21 05:40 Physical Exam Const alert and no apparent distress Constitutional Narrative: sitting in the recliner at the bedside HEENT moist oral mucous membranes Resp normal respiratory effort and clear to auscultation bilaterally Cardio regular rate, regular rhythm and no gallops Cardio Narrative: no ectopy GI soft to palpation, non-tender and non-distended Extremity no clubbing, cyanosis or edema Extremity Narrative: she has edema on the left hand only General Extremity: edema Skin General Skin Exam: no breakdown Rashes: no rashes Neuro Motor Exam: general weakness Assessment & Plan Assessment/Plan (1) Physical debility: (2) Closed fracture of shaft of left humerus: QUALIFIERS: Encounter type: subsequent encounter Fracture morphology: comminuted Fracture alignment: nondisplaced Fracture healing: with routine healing Qualified Code(s): S42.355D - Nondisplaced comminuted fracture of shaft of humerus, left arm, subsequent encounter for fracture with routine healing (3) Vascular dementia: QUALIFIERS: Dementia behavioral disturbance: without behavioral disturbance Qualified Code(s): F01.50 - Vascular dementia without behavioral disturbance PLAN: Continue therapy. Balance is getting a little better. Needs cueing to get her to grab the walker. She is not motivated to do things without cuing. The plan is for her to go home with Nils at [place]. Charges/Coding Visit Charges Inpatient E&M: 82526 Subs Hosp L1
[2021-02-05 17:00] VITALS: BMI 24.5
[2021-02-05 20:14] VITALS: BP 107/44; PULSE 75; RESP 14; TEMP 36.7; O2SAT 95; BMI 24.5
[2021-02-05 20:15] VITALS: PULSE 75; RESP 14; O2SAT 95
[2021-02-05] MEDS: Atorvastatin Calcium 80 MG Tablet PO (20:22)
[2021-02-05] MEDS: MELATONIN 3 MG TABLET PO (20:23)
[2021-02-05] MEDS: oxyCODONE 5 MG Tablet PO (21:54)
--- NOTE | 2021-02-06 | NURSING ---
1899 pt noted to be crying at the beginning of shift very loudly, staff went into the room immediately and asked pt what was wrong , pt had stopped crying and stated that nothing was wrong. during report it was stated that pt thought that [facility] was on fire and she needed to find her , but this was because of something she had been watching on tv. 1929 pt noted to be crying again and staff entered the room and asked what was wrong pt stated i can't turn the tv channel and my yelled at me. I just can't remember what to do pt started crying again. pt again mentioned something about a fire and staff assured that every thing was ok. pt was asked if she was having any pain in her arm and she stated no that she was not. pt is calmer now, staff asked pt if she needed anything and pt reported no that she was fine. cell phone started ringing, pt replied this is my and started talking on the phone. staff assured pt that they would be back in a little later and pt acknowledged 2014 staff returns to pt room and pt is still on the phone and is talking is an agitated voice with spouse. pt asked of staff could show her how to change the channel on the tv and staff complied and changed channel to channel 4 as requested. pt reports to her spoused that the channel was changed, the conversation then turns to the team meeting, pt seemed to be confused on the time but spouse told her at 10 am tomorrow. not knowing what spouse said to the pt, pt became agitated and raised her voice to her . pt conversation ended with spouse and put down her phone and replied this is why i never know what to do, he tells me to this channel and that channel so i never know what to do. everyone wants me to take care of things and i just can't any more staff completed clinical findings and pt is calmer and continued to deny any kind of pain, hs medications given at this time. staff offered pt to go to bed and pt declined stating i'mgoing to see if he(spouse) is going to come and see me and have dinner. pt instructed to call when she was ready for bed, pt acknowledged. time spent with pt 45minutes 0 staff in hallway and hears pt calling i need to go to the bathroom, can you hear me? staff replied that they were coming and pt again called out i need to go to the bathroom. staff entered the room and set up bsc and put gait belt on pt. pt then asked did you hear me calling you from upstairs? staff stated yes. staff stood and pivoted pt to the bsc , pt started crying out that her shoulder was hurting, while she was bending over and lifting her rt lower leg. staff calmly assured pt that she was alright and would not fall if she would put her leg down and stand up straight, pt then did so. pt needed to be instructed step by step which foot to move and how to turn to sit on the bsc. staff completes all of hs care and assures pt that pain medication would be given for her arm and shoulder, pt nods her head in acknowledgement. after finishing on the bsc, staff stands and pivots pt to the bed. pt starts crying i can't do this, i can't do this staff give pt step by step instruction on how to turn and sit on the bed, assuring her that she was not going to fall, pt crying that she was going to fall and she couldn't help that feeling . staff put pt safely in the bed and positioned for comfort and pt calmed down. staff medicated pt for shoulder and arm pain. pt thanked for putting her in bed. time spent with pt 45 min 2300 pt resting quietly in the bed with no distress noted and denied any other needs
--- NOTE | 2021-02-06 03:12 | NURSING ---
REVIEWED AND AGREE WITH TITLE SUPERVISOR'S FUNCTIONAL ASSESSMENT AND HANDOFF CHARTING.
[2021-02-06] MEDS: Acetaminophen 500 MG Tablet 1000 MG PO ×3 (05:30→21:12)
[2021-02-06] MEDS: Enoxaparin 40 MG/0.4 ML Syringe SC (06:22)
[2021-02-06 07:36] VITALS: BP 112/46; PULSE 77; RESP 12; TEMP 36.3; O2SAT 93
[2021-02-06] MEDS: Tamsulosin HCl 0.4 MG Capsule PO (08:02)
[2021-02-06] MEDS: Escitalopram Oxalate 20 MG Tablet PO (08:02)
[2021-02-06] MEDS: Gabapentin 600 MG Tablet PO ×2 (08:02→21:12)
[2021-02-06] MEDS: Aspirin 81 MG TAB.CHEW PO (08:02)
[2021-02-06] MEDS: Pantoprazole Sodium 40 MG Tablet PO (08:03)
[2021-02-06] MEDS: buPROPion (SR) 150 MG Tablet.SA PO ×2 (08:03→21:13)
[2021-02-06] MEDS: oxyCODONE 5 MG Tablet PO (08:05)
[2021-02-06 11:44] VITALS: BMI 24.5
--- NOTE | 2021-02-06 12:20 | PN_ITS ---
Subjective Subjective Blessing was seen on team rounds today. Her Nils was present in the room for rounds. All questions were answered to their satisfaction. Nils informed us that Blessing has been emotional and crying at home in the past. She normally sleeps well and nursing tells me she has been sleeping well at night since admis nikunj to the rehab unit. Blessing had a melt down last evening and was crying per nursing. It took her a while to calm down. It happened after Nils left. Afebrile since admission Blood pressure is well controlled Heart rate is within normal limits She is maintaining an appropriate oxygen saturation on room air with no tachypnea. Oral intake is erratic. Yesterday she took 1000 cc but usually does a little better than this. Nils informed us that Blessing can not accurately give a score for her pain level. The nurses have been administering pain medication regularly and gauge her pain level by physical findings such as facial grimacing, HR, pallor. Objective Data Objective Data Vital Signs: Vital Signs Temp Pulse Resp BP Pulse Ox 97.3 F L 77 12 112/46 L 93 02/06/21 07:36 02/06/21 07:36 02/06/21 07:36 02/06/21 07:36 02/06/21 07:36 Oxygen Delivery Method Room Air Weight: 134 lb 7.712 oz Body Mass Index (BMI) 24.5 Intake & Output: Intake and Output for Last 24 Hours 02/04/21 02/05/21 02/06/21 23:59 23:59 23:59 Intake Total 1395 / 1395 1000 / 1000 300 / 300 Output Total 850 / 850 400 / 400 Balance 545 / 545 1000 / 1000 -100 / -100 Lab / Micro Data Result Diagrams: 02/07/21 05:40 02/07/21 05:40 Physical Exam Const alert Constitutional Narrative: smiling today General Appearance: cooperative HEENT moist oral mucous membranes Eyes PERRL Resp normal respiratory effort and clear to auscultation bilaterally Cardio regular rate, regular rhythm and no gallops GI soft to palpation, non-tender and non-distended Extremity Extremity Narrative: the edema of the L hand is less than at admission and she has intact sensation in the left hand. General Extremity: edema Skin General Skin Exam: no breakdown Rashes: no rashes Neuro CN's II-XII intact bilaterally Motor Exam: general weakness Assessment & Plan Assessment/Plan (1) Closed fracture of shaft of left humerus: QUALIFIERS: Encounter type: subsequent encounter Fracture morphology: comminuted Fracture alignment: nondisplaced Fracture healing: with routine healing Qualified Code(s): S42.355D - Nondisplaced comminuted fracture of shaft of humerus, left arm, subsequent encounter for fracture with routine healing (2) Multiple falls: (3) Vascular dementia: QUALIFIERS: Dementia behavioral disturbance: without behavioral disturbance Qualified Code(s): F01.50 - Vascular dementia without behavioral disturbance (4) Physical debility: PLAN: Continue therapy she continues to have retro lean with the nurses.....not so much with therapy. ST recommends that when nursing give her commands that a few words is better than rambling on with multiple instructions at once. Simple sentences.....like Grab the walker. pain is adequately controlled. She is cooperating with therapy and making progress. Charges/Coding Visit Charges Inpatient E&M: 61890 Subs Hosp L2
--- NOTE | 2021-02-06 14:25 | CASEMGMT ---
Social Work IDT met with patient and for Team meeting. Discussed patient's progress in therapy and nursing. Pt progressing. ST working on attention, memory, recall. Explained Medicare approved 23 days with DC 02/23. Will ReTeam. SW to continue to follow for DC planning. Heidi Lugo, BRANCH OPERATIONS SPECIALIST EXPERIMENTAL WORKER
[2021-02-06] MEDS: QUEtiapine 25 MG Tablet 12.5 MG PO (20:11)
[2021-02-06 20:40] VITALS: BP 117/45; PULSE 81; RESP 16; TEMP 36.3; O2SAT 97
[2021-02-06] MEDS: MELATONIN 3 MG TABLET PO (21:12)
[2021-02-06] MEDS: Atorvastatin Calcium 80 MG Tablet PO (21:12)
[2021-02-07 00:04] VITALS: BMI 24.5
--- NOTE | 2021-02-07 01:14 | NURSING ---
Reviewed and agree with SOUBRETTE assessment.
[2021-02-07] MEDS: Acetaminophen 500 MG Tablet 1000 MG PO ×3 (05:12→22:35)
[2021-02-07] MEDS: Enoxaparin 40 MG/0.4 ML Syringe SC (05:12)
[2021-02-07 05:46] LABS: Hematocrit 33.3 % (37-47); Hemoglobin 10.2 g/dL (12.0-15.0); Mean Corp Hgb Conc 30.6 g/dL (32-36); Mean Corpuscular Hgb 31.5 pg (27.0-32.0); Mean Corpuscular Volume 102.8 fL (81-99); Mean Platelet Vol. 11.6 fl (6.2-12.0); Platelet Count 199 K/mm3 (150-450); RBC Distribution Width CV 14.7 % (11.6-14.6); RBC Distribution Width SD 56.3 fl (35.1-43.9); Red Blood Count 3.24 M/mm3 (4.2-5.4)
[2021-02-07 06:08] LABS: ALB/GLOB Ratio 1.1 RATIO (0.9-2.4); AST(SGOT) 22 U/L (15-37); Alanine Aminotransfer ALT/SGPT 38 U/L (13-56); Albumin, Serum 3.1 g/dL (3.2-5.0); Alkaline Phosphatase 116 U/L (45-117); Anion Gap 4 (5-15); BUN 32 mg/dL (7-18); BUN/Creat Ratio 30.5 RATIO (10-20); Calcium,Total 8.4 mg/dL (8.5-10.1); Chloride 106 mmol/L (98-107); Creatinine, Serum 1.05 mg/dL (0.55-1.02); EST Glomerular Filtration Rate 54 mL/min (>60); Est Glom Filt Rate - Afr Amer 65 mL/min (>60); Estimated Creatinine Clearance 36.05 ml/min; Globulin 2.9 g/dL (2.2-4.2); Glucose 91 mg/dL (74-106); Magnesium 2.1 mg/dL (1.6-2.6); Phosphorus 3.2 mg/dL (2.5-4.9); Potassium 4.4 mmol/L (3.5-5.1); Sodium Level 140 mmol/L (136-145)
[2021-02-07 08:00] VITALS: BP 114/37; PULSE 77; RESP 16; TEMP 36.4; O2SAT 94
[2021-02-07] MEDS: Aspirin 81 MG TAB.CHEW PO (08:20)
[2021-02-07] MEDS: Tamsulosin HCl 0.4 MG Capsule PO (08:20)
[2021-02-07] MEDS: Gabapentin 600 MG Tablet PO ×2 (08:20→20:06)
[2021-02-07] MEDS: Pantoprazole Sodium 40 MG Tablet PO (08:20)
[2021-02-07] MEDS: Escitalopram Oxalate 20 MG Tablet PO (08:20)
[2021-02-07] MEDS: buPROPion (SR) 150 MG Tablet.SA PO ×2 (08:21→20:06)
[2021-02-07 13:58] VITALS: BMI 24.5
[2021-02-07] MEDS: oxyCODONE 5 MG Tablet PO (15:32)
[2021-02-07 19:31] VITALS: BP 127/52; PULSE 80; RESP 16; TEMP 36.1; O2SAT 96
[2021-02-07 19:32] VITALS: BMI 24.5
[2021-02-07 19:38] VITALS: PULSE 80; RESP 16; O2SAT 96
[2021-02-07] MEDS: QUEtiapine 25 MG Tablet 12.5 MG PO (19:48)
[2021-02-07] MEDS: MELATONIN 3 MG TABLET PO (20:05)
[2021-02-07] MEDS: Atorvastatin Calcium 80 MG Tablet PO (20:05)
[2021-02-08] MEDS: Acetaminophen 500 MG Tablet 1000 MG PO ×3 (05:01→21:39)
[2021-02-08] MEDS: Enoxaparin 40 MG/0.4 ML Syringe SC (05:02)
[2021-02-08] MEDS: Gabapentin 600 MG Tablet PO ×2 (07:50→21:39)
[2021-02-08] MEDS: Pantoprazole Sodium 40 MG Tablet PO (07:50)
[2021-02-08] MEDS: Tamsulosin HCl 0.4 MG Capsule PO (07:50)
[2021-02-08] MEDS: oxyCODONE 5 MG Tablet PO ×2 (07:50→14:19)
[2021-02-08] MEDS: Aspirin 81 MG TAB.CHEW PO (07:50)
[2021-02-08] MEDS: buPROPion (SR) 150 MG Tablet.SA PO ×2 (07:51→21:39)
[2021-02-08] MEDS: Escitalopram Oxalate 20 MG Tablet PO (07:51)
[2021-02-08 08:40] VITALS: BP 140/56; PULSE 81; RESP 18; TEMP 36.2; O2SAT 97
[2021-02-08 12:23] VITALS: BMI 24.5
[2021-02-08 19:49] VITALS: BP 109/51; PULSE 85; RESP 18; TEMP 36.6; O2SAT 95
[2021-02-08] MEDS: QUEtiapine 25 MG Tablet 12.5 MG PO (20:00)
[2021-02-08] MEDS: Atorvastatin Calcium 80 MG Tablet PO (20:01)
[2021-02-08] MEDS: MELATONIN 3 MG TABLET PO (21:39)
[2021-02-09] MEDS: Acetaminophen 500 MG Tablet 1000 MG PO ×3 (05:38→20:05)
[2021-02-09] MEDS: Enoxaparin 40 MG/0.4 ML Syringe SC (05:39)
[2021-02-09] MEDS: oxyCODONE 5 MG Tablet PO ×2 (07:39→16:44)
[2021-02-09] MEDS: Tamsulosin HCl 0.4 MG Capsule PO (07:39)
[2021-02-09] MEDS: Pantoprazole Sodium 40 MG Tablet PO (07:40)
[2021-02-09] MEDS: Aspirin 81 MG TAB.CHEW PO (07:40)
[2021-02-09] MEDS: Escitalopram Oxalate 20 MG Tablet PO (07:40)
[2021-02-09] MEDS: buPROPion (SR) 150 MG Tablet.SA PO ×2 (07:40→22:10)
[2021-02-09] MEDS: Gabapentin 600 MG Tablet PO ×2 (07:40→22:10)
[2021-02-09 08:38] VITALS: BP 135/52; PULSE 79; RESP 20; TEMP 36.1; O2SAT 96
[2021-02-09 14:12] VITALS: BMI 24.5
[2021-02-09 20:00] VITALS: BP 134/48; PULSE 92; RESP 16; TEMP 36.4; O2SAT 97; BMI 24.5
[2021-02-09] MEDS: QUEtiapine 25 MG Tablet 12.5 MG PO (20:05)
[2021-02-09] MEDS: Atorvastatin Calcium 80 MG Tablet PO (22:10)
[2021-02-09] MEDS: MELATONIN 3 MG TABLET PO (22:11)
--- NOTE | 2021-02-10 04:12 | NURSING ---
reviewed and agree with community liaison assessment and handoff note.
[2021-02-10] MEDS: Acetaminophen 500 MG Tablet 1000 MG PO ×3 (05:22→20:30)
[2021-02-10] MEDS: Enoxaparin 40 MG/0.4 ML Syringe SC (05:22)
[2021-02-10] MEDS: Pantoprazole Sodium 40 MG Tablet PO (07:34)
[2021-02-10] MEDS: Aspirin 81 MG TAB.CHEW PO (07:34)
[2021-02-10] MEDS: Escitalopram Oxalate 20 MG Tablet PO (07:34)
[2021-02-10] MEDS: oxyCODONE 5 MG Tablet PO ×2 (07:34→18:46)
[2021-02-10] MEDS: buPROPion (SR) 150 MG Tablet.SA PO ×2 (07:35→20:30)
[2021-02-10] MEDS: Gabapentin 600 MG Tablet PO ×2 (07:35→20:29)
[2021-02-10] MEDS: Tamsulosin HCl 0.4 MG Capsule PO (07:43)
[2021-02-10 08:20] VITALS: BP 135/51; PULSE 80; RESP 16; TEMP 35.9; O2SAT 93
[2021-02-10 15:17] VITALS: BMI 24.5
[2021-02-10 19:40] VITALS: BP 100/42; PULSE 80; RESP 18; TEMP 36.7; O2SAT 95
[2021-02-10] MEDS: MELATONIN 3 MG TABLET PO (20:29)
[2021-02-10 20:30] VITALS: PULSE 80; RESP 18; O2SAT 95; BMI 24.5
[2021-02-10] MEDS: QUEtiapine 25 MG Tablet 12.5 MG PO (20:30)
[2021-02-10] MEDS: Atorvastatin Calcium 80 MG Tablet PO (20:30)
--- NOTE | 2021-02-11 04:38 | NURSING ---
Reviewed and agree with BEVERAGE INSPECTION MACHINE TENDER documentation and assessment charting.
[2021-02-11] MEDS: Acetaminophen 500 MG Tablet 1000 MG PO ×3 (05:11→20:05)
[2021-02-11] MEDS: Enoxaparin 40 MG/0.4 ML Syringe SC (05:12)
[2021-02-11 07:14] VITALS: BP 116/49; PULSE 78; RESP 16; TEMP 36.3; O2SAT 98
[2021-02-11] MEDS: buPROPion (SR) 150 MG Tablet.SA PO ×2 (08:02→20:06)
[2021-02-11] MEDS: Escitalopram Oxalate 20 MG Tablet PO (08:03)
[2021-02-11] MEDS: Aspirin 81 MG TAB.CHEW PO (08:03)
[2021-02-11] MEDS: Gabapentin 600 MG Tablet PO ×2 (08:03→20:05)
[2021-02-11] MEDS: Pantoprazole Sodium 40 MG Tablet PO (08:03)
[2021-02-11] MEDS: Senna/Docusate Sodium 1 Tablet 2 TABLET PO ×2 (08:03→20:05)
[2021-02-11] MEDS: Tamsulosin HCl 0.4 MG Capsule PO (08:03)
[2021-02-11 09:28] VITALS: PULSE 88; RESP 18; O2SAT 98
[2021-02-11] MEDS: oxyCODONE 5 MG Tablet PO (10:11)
--- NOTE | 2021-02-11 12:41 | PCM.PROGNOTE ---
Subjective Subjective Afebrile Vital signs are stable Maintaining appropriate oxygen saturation on room air. Sleeping better on Seroquel at bedtime. Less emotional. Good oral intake Denies RUIZ, CP, SOB. I reviewed the therapy notes Objective Data Objective Data Vital Signs: Vital Signs Temp Pulse Resp BP Pulse Ox 97.3 F L 88 18 116/49 L 98 02/11/21 07:14 02/11/21 09:28 02/11/21 09:28 02/11/21 07:14 02/11/21 09:28 Oxygen Delivery Method Room Air Weight: 137 lb 12.623 oz Body Mass Index (BMI) 24.5 Intake & Output: Intake and Output for Last 24 Hours 02/09/21 02/10/21 02/11/21 23:59 23:59 23:59 Intake Total 1340 / 1340 1600 / 1600 780 / 780 Output Total 700 / 700 250 / 250 Balance 640 / 640 1350 / 1350 780 / 780 Lab / Micro Data Result Diagrams: 02/07/21 05:40 02/07/21 05:40 Physical Exam Const alert and no apparent distress Constitutional Narrative: talkative today and she is making good eye contact HEENT normocephalic and moist oral mucous membranes Resp normal respiratory effort, normal air movement and clear to auscultation bilaterally Cardio regular rate, regular rhythm and no gallops Extremity General Extremity: Negative for edema Skin General Skin Exam: no breakdown Rashes: no rashes Neuro CN's II-XII intact bilaterally, no focal motor deficits and no sensory deficits noted Neuro Narrative: still some trouble with word finding Assessment & Plan Assessment/Plan (1) Debility: (2) Ischemic cerebrovascular accident (CVA): (3) Closed fracture of shaft of left humerus: QUALIFIERS: Encounter type: subsequent encounter Fracture morphology: comminuted Fracture alignment: nondisplaced Fracture healing: with routine healing Qualified Code(s): S42.355D - Nondisplaced comminuted fracture of shaft of humerus, left arm, subsequent encounter for fracture with routine healing (4) Vascular dementia: QUALIFIERS: Dementia behavioral disturbance: without behavioral disturbance Qualified Code(s): F01.50 - Vascular dementia without behavioral disturbance (5) Cognitive dysfunction: (6) Multiple falls: (7) MDS (myelodysplastic syndrome), low grade: (8) Myeloma: QUALIFIERS: Multiple myeloma remission status: in remission Qualified Code(s): C90.01 - Multiple myeloma in remission (9) Anemia: QUALIFIERS: Anemia type: bone marrow failure (10) Meningioma: (11) Cerebrovascular disease: (12) HLD (hyperlipidemia): (13) Anxiety and depression: (14) Essential tremor: (15) Low back pain: (16) Hypertension: (17) Neuropathic pain: (18) Chronic anticoagulation: (19) Encephalopathy: (20) Seizure disorder: (21) S/P craniotomy: PLAN: continue therapy Will continue the Seroquel at [place] if OK with Jerod Plan DC to home The Oxycodone dose was changed to 5 mg rather than 5-10 mg because she gets too sleepy on 10 mg and she is unable to tell us what her true pain is. She seems to be comfortable on 5 mg . she will follow up with orthopedics at [place] for the Left UE humerus fracture. Charges/Coding Visit Charges Inpatient E&M: 32357 Subs Hosp L2
--- NOTE | 2021-02-11 16:35 | CHAPLAIN ---
Type of Pastoral Visit ___ Initial Visit _x__ Follow-up Visit ___ On-call Visit ___ General Patient Visit ___ Spiritual Assessment ___ Family Conference ___ Bereavement ___ Rapid Response ___ Code Blue ___ Other (describe below) Pastoral Care Referral From _x__ Patient ___ Family ___ Nurse ___ Physician ___ Generator Worker ___ Home Health Care Respiratory Therapist ___ Other (describe below) Sacrament/Intervention _x__ Active listening ___ Anointing ___ Voodoo ___ Bereavement ___ Communion ___ Orly exploration ___ _x__ Life review _x__ Prayer ___ Reconciliation ___ Sacrament of Sick _x__ Supportive presence ___ Wedding ___ Other (describe below) Pastoral Comments
[2021-02-11 19:30] VITALS: PULSE 85; RESP 18; O2SAT 98; BMI 24.5
[2021-02-11 19:46] VITALS: BP 106/54; PULSE 85; RESP 18; TEMP 36.3; O2SAT 98
[2021-02-11] MEDS: Atorvastatin Calcium 80 MG Tablet PO (20:05)
[2021-02-11] MEDS: QUEtiapine 25 MG Tablet 12.5 MG PO (20:06)
[2021-02-11] MEDS: MELATONIN 3 MG TABLET PO (20:06)
[2021-02-12] MEDS: oxyCODONE 5 MG Tablet PO (01:32)
--- NOTE | 2021-02-12 03:00 | NURSING ---
Reviewed and agree with COMMERCIAL ARTIST LETTERING documentation and assessment charting.
--- NOTE | 2021-02-12 03:10 | NURSING ---
Reviewed and agree with MICROSOFT EXCHANGE ADMINISTRATOR documentation and assessment charting.
[2021-02-12] MEDS: Enoxaparin 40 MG/0.4 ML Syringe SC (05:01)
[2021-02-12] MEDS: Acetaminophen 500 MG Tablet 1000 MG PO ×3 (05:01→22:13)
[2021-02-12 07:19] VITALS: BP 123/56; PULSE 75; RESP 16; TEMP 36.3; O2SAT 94
[2021-02-12] MEDS: Aspirin 81 MG TAB.CHEW PO (08:06)
[2021-02-12] MEDS: buPROPion (SR) 150 MG Tablet.SA PO ×2 (08:07→19:53)
[2021-02-12] MEDS: Gabapentin 600 MG Tablet PO ×2 (08:07→19:53)
[2021-02-12] MEDS: Senna/Docusate Sodium 1 Tablet 2 TABLET PO ×2 (08:07→19:54)
[2021-02-12] MEDS: Pantoprazole Sodium 40 MG Tablet PO (08:07)
[2021-02-12] MEDS: Tamsulosin HCl 0.4 MG Capsule PO (08:07)
[2021-02-12] MEDS: Escitalopram Oxalate 20 MG Tablet PO (08:07)
[2021-02-12 17:00] VITALS: BMI 24.5
[2021-02-12 19:26] VITALS: BP 98/65; PULSE 87; RESP 16; TEMP 36.2; O2SAT 95
[2021-02-12 19:44] VITALS: BMI 24.5
[2021-02-12] MEDS: QUEtiapine 25 MG Tablet 12.5 MG PO (19:50)
[2021-02-12] MEDS: Atorvastatin Calcium 80 MG Tablet PO (19:52)
[2021-02-12] MEDS: MELATONIN 3 MG TABLET PO (19:52)
[2021-02-12 19:58] VITALS: PULSE 88; RESP 17; O2SAT 97
[2021-02-13] MEDS: Enoxaparin 40 MG/0.4 ML Syringe SC (05:08)
[2021-02-13] MEDS: Acetaminophen 500 MG Tablet 1000 MG PO ×3 (05:09→20:23)
[2021-02-13] MEDS: Magnesium Hydroxide 30 ML UDC PO (06:32)
[2021-02-13] MEDS: Senna/Docusate Sodium 1 Tablet 2 TABLET PO ×2 (07:37→20:23)
[2021-02-13 07:38] VITALS: BP 155/48; PULSE 90; RESP 16; TEMP 36.3; O2SAT 95
[2021-02-13] MEDS: Pantoprazole Sodium 40 MG Tablet PO (07:38)
[2021-02-13] MEDS: Escitalopram Oxalate 20 MG Tablet PO (07:38)
[2021-02-13] MEDS: Tamsulosin HCl 0.4 MG Capsule PO (07:38)
[2021-02-13] MEDS: Aspirin 81 MG TAB.CHEW PO (07:38)
[2021-02-13] MEDS: Gabapentin 600 MG Tablet PO ×2 (07:38→20:24)
[2021-02-13] MEDS: buPROPion (SR) 150 MG Tablet.SA PO ×2 (07:38→20:23)
--- NOTE | 2021-02-13 09:42 | CASEMGMT ---
Social Work Team meeting held. Patient present. Patient to continue with further care and treatment on the Rehab Unit. Patient to discharge on or before 02/23/2021. Patient plans to discharge to home with spouse. Will continue to follow. Radha AVILES, DARIO-S
--- NOTE | 2021-02-13 14:43 | PCM.PROGNOTE ---
Subjective Subjective Blessing was seen on team rounds today. Her Nils is coming in for family training at 230 this afternoon and was not available for team rounds. Afebrile VSS Maintaining appropriate oxygen saturation on RA Oral intake is good Discussed with nursing - She has been getting emotional and crying at times during the day. She was also doing this at night after Nils would leave and this responded well to a small dose of Seroquel at bedtime. Reviewed the PT/OT/ST notes. ST emphasizes to give simple instructions.....she gets overwhelmed when given to many commands at once. She is able to follow simple instructions. Medication list reviewed. Blessing has no complaints. She is sleeping well at night and she is doing well with eating her meals. She gets anxious when she can not figure out what to do.......when this happens a phone call to Nils helps. Objective Data Objective Data Vital Signs: Vital Signs Temp Pulse Resp BP Pulse Ox 97.3 F L 90 16 155/48 H 95 02/13/21 07:38 02/13/21 07:38 02/13/21 07:38 02/13/21 07:38 02/13/21 07:38 Oxygen Delivery Method Room Air Weight: 137 lb 12.623 oz Body Mass Index (BMI) 24.5 Intake & Output: Intake and Output for Last 24 Hours 02/11/21 02/12/21 02/13/21 23:59 23:59 23:59 Intake Total 1800 / 1800 1015 / 1015 820 / 820 Balance 1800 / 1800 1015 / 1015 820 / 820 Lab / Micro Data Result Diagrams: 02/07/21 05:40 02/07/21 05:40 Physical Exam Const alert Constitutional Narrative: Appears a little anxious today with several people in her room at one time and Nils not being with her. General Appearance: cooperative HEENT moist oral mucous membranes Neck supple Lymph Lymphatic: no lymphedema noted Resp normal respiratory effort, normal air movement and clear to auscultation bilaterally Cardio regular rate, regular rhythm, S1 normal heart sound, S2 normal heart sound and no gallops Cardio Narrative: MM is unchanged from admission Heart Sounds: murmur GI soft to palpation, non-tender and non-distended Palpation: Negative for guarding Extremity no calf tenderness General Extremity: Negative for edema Skin General Skin Exam: no breakdown Rashes: no rashes Psych Mood & Affect: anxious Assessment & Plan Assessment/Plan (1) Physical debility: (2) Ischemic cerebrovascular accident (CVA): (3) Closed fracture of shaft of left humerus: QUALIFIERS: Encounter type: subsequent encounter Fracture morphology: comminuted Fracture alignment: nondisplaced Fracture healing: with routine healing Qualified Code(s): S42.355D - Nondisplaced comminuted fracture of shaft of humerus, left arm, subsequent encounter for fracture with routine healing (4) Multiple falls: (5) Vascular dementia: QUALIFIERS: Dementia behavioral disturbance: without behavioral disturbance Qualified Code(s): F01.50 - Vascular dementia without behavioral disturbance (6) Emotional lability: PLAN: 1. Continue therapy. 2. Palliative care consult 3. I want to discuss with Nils how he is doing and if he is able to continue taking care of Blessing at home as mentation deteriorates. 4. Recheck a BMP and a CBC in the AM 5. add Seroquel 12.5 mg Q AM to the current drug regimen Charges/Coding Visit Charges Inpatient E&M: 85656 Subs Hosp L2
[2021-02-13 17:00] VITALS: BMI 24.5
[2021-02-13 20:08] VITALS: BP 114/55; PULSE 81; RESP 16; TEMP 36.6; O2SAT 96
[2021-02-13] MEDS: QUEtiapine 25 MG Tablet 12.5 MG PO ×2 (20:24→22:44)
[2021-02-13] MEDS: MELATONIN 3 MG TABLET PO (20:24)
[2021-02-13] MEDS: Atorvastatin Calcium 80 MG Tablet PO (20:24)
[2021-02-14] MEDS: Acetaminophen 500 MG Tablet 1000 MG PO ×3 (06:07→22:20)
[2021-02-14] MEDS: Enoxaparin 40 MG/0.4 ML Syringe SC (06:07)
[2021-02-14 07:38] VITALS: BP 134/55; PULSE 85; RESP 16; TEMP 36.8; O2SAT 95
[2021-02-14] MEDS: Escitalopram Oxalate 20 MG Tablet PO (08:07)
[2021-02-14] MEDS: Senna/Docusate Sodium 1 Tablet 2 TABLET PO (08:07)
[2021-02-14] MEDS: Tamsulosin HCl 0.4 MG Capsule PO (08:07)
[2021-02-14] MEDS: Gabapentin 600 MG Tablet PO ×2 (08:07→22:21)
[2021-02-14] MEDS: QUEtiapine 25 MG Tablet 12.5 MG PO ×2 (08:07→22:21)
[2021-02-14] MEDS: Pantoprazole Sodium 40 MG Tablet PO (08:07)
[2021-02-14] MEDS: Aspirin 81 MG TAB.CHEW PO (08:07)
[2021-02-14] MEDS: buPROPion (SR) 150 MG Tablet.SA PO ×2 (08:08→22:21)
[2021-02-14 10:44] VITALS: BMI 24.5
[2021-02-14 22:00] VITALS: BP 134/53; PULSE 84; RESP 16; TEMP 36.5; O2SAT 95
[2021-02-14] MEDS: Atorvastatin Calcium 80 MG Tablet PO (22:20)
[2021-02-14] MEDS: MELATONIN 3 MG TABLET PO (22:21)
[2021-02-15 00:58] VITALS: BMI 24.5
[2021-02-15] MEDS: Enoxaparin 40 MG/0.4 ML Syringe SC (06:56)
[2021-02-15] MEDS: Acetaminophen 500 MG Tablet 1000 MG PO ×3 (06:56→20:41)
[2021-02-15 07:24] VITALS: BP 109/60; PULSE 85; RESP 18; TEMP 36.3; O2SAT 95
[2021-02-15] MEDS: Gabapentin 600 MG Tablet PO ×2 (07:34→20:40)
[2021-02-15] MEDS: Escitalopram Oxalate 20 MG Tablet PO (07:35)
[2021-02-15] MEDS: Aspirin 81 MG TAB.CHEW PO (07:35)
[2021-02-15] MEDS: QUEtiapine 25 MG Tablet 12.5 MG PO ×2 (07:35→20:40)
[2021-02-15] MEDS: Pantoprazole Sodium 40 MG Tablet PO (07:35)
[2021-02-15] MEDS: Tamsulosin HCl 0.4 MG Capsule PO (07:35)
[2021-02-15] MEDS: buPROPion (SR) 150 MG Tablet.SA PO ×2 (07:37→20:40)
--- NOTE | 2021-02-15 11:41 | PCM.PN.BLA ---
Progress Note Afebrile VSS Maintaining appropriate oxygen saturation on RA Oral intake is good Discussed with nursing - no problems that need addressed Reviewed the PT/OT/ST notes Medication list reviewed. Physical Exam Const alert and no apparent distress General Appearance: cooperative and comfortable HEENT moist oral mucous membranes Resp clear to auscultation bilaterally Cardio regular rate, regular rhythm, S1 normal heart sound, S2 normal heart sound, no rub and no gallops Cardio Narrative: MM is unchanged from admission Heart Sounds: murmur GI soft to palpation, non-tender and non-distended Palpation: Negative for guarding Extremity no calf tenderness and no pedal edema Extremity Narrative: minimal edema in the L hand now. Skin General Skin Exam: no breakdown Rashes: no rashes Neuro CN's II-XII intact bilaterally, moves all extremities, no focal motor deficits and no sensory deficits noted Neuro Narrative: difficulty with balance more than usual since the LUE is in a sling Psych cooperative and affect normal Psych Narrative: making good eye contact, pleasant, talkative. Does not seem anxious. Good modulation of her voice. Appearance: appropriate Assessment & Plan Assessment/Plan (1) Physical debility: (2) Closed fracture of shaft of left humerus: QUALIFIERS: Encounter type: subsequent encounter Fracture morphology: comminuted Fracture alignment: nondisplaced Fracture healing: with routine healing Qualified Code(s): S42.355D - Nondisplaced comminuted fracture of shaft of humerus, left arm, subsequent encounter for fracture with routine healing (3) Ischemic cerebrovascular accident (CVA): (4) MDS (myelodysplastic syndrome), low grade: (5) Vascular dementia: QUALIFIERS: Dementia behavioral disturbance: without behavioral disturbance Qualified Code(s): F01.50 - Vascular dementia without behavioral disturbance PLAN: Continue therapy. Continue Seroquel. Mood is now stable with infrequent episodes of crying.......mostly when Nils leaves. Visit Charges Inpatient E&M: 46846 Subs Hosp L2
[2021-02-15 14:04] VITALS: BMI 24.5
[2021-02-15] MEDS: oxyCODONE 5 MG Tablet PO (16:29)
[2021-02-15 19:08] VITALS: BP 120/56; PULSE 85; RESP 16; TEMP 36.8; O2SAT 94
[2021-02-15] MEDS: MELATONIN 3 MG TABLET PO (20:39)
[2021-02-15] MEDS: Atorvastatin Calcium 80 MG Tablet PO (20:39)
[2021-02-16 01:45] VITALS: BMI 24.5
--- NOTE | 2021-02-16 04:07 | NURSING ---
REVIEWED AND AGREE WITH HEAD START TEACHER'S FUNCTIONAL ASSESSMENT AND HANDOFF CHARTING.
[2021-02-16] MEDS: Enoxaparin 40 MG/0.4 ML Syringe SC (06:09)
[2021-02-16] MEDS: Acetaminophen 500 MG Tablet 1000 MG PO ×3 (06:10→20:06)
[2021-02-16] MEDS: Pantoprazole Sodium 40 MG Tablet PO (07:09)
[2021-02-16] MEDS: Aspirin 81 MG TAB.CHEW PO (07:09)
[2021-02-16] MEDS: Tamsulosin HCl 0.4 MG Capsule PO (07:09)
[2021-02-16] MEDS: Escitalopram Oxalate 20 MG Tablet PO (07:09)
[2021-02-16] MEDS: Gabapentin 600 MG Tablet PO ×2 (07:09→20:06)
[2021-02-16] MEDS: QUEtiapine 25 MG Tablet 12.5 MG PO ×2 (07:10→20:05)
[2021-02-16] MEDS: buPROPion (SR) 150 MG Tablet.SA PO ×2 (07:10→20:05)
[2021-02-16 08:30] VITALS: BP 136/54; PULSE 82; RESP 16; TEMP 36.9; O2SAT 95
[2021-02-16] MEDS: oxyCODONE 5 MG Tablet PO ×2 (12:16→20:06)
[2021-02-16 15:15] VITALS: BMI 24.5
[2021-02-16 19:17] VITALS: BP 125/57; PULSE 76; RESP 16; TEMP 36; O2SAT 95
[2021-02-16] MEDS: MELATONIN 3 MG TABLET PO (20:05)
[2021-02-16] MEDS: Atorvastatin Calcium 80 MG Tablet PO (20:06)
[2021-02-16 22:42] VITALS: BMI 24.5
[2021-02-17] MEDS: Enoxaparin 40 MG/0.4 ML Syringe SC (06:53)
[2021-02-17] MEDS: Acetaminophen 500 MG Tablet 1000 MG PO ×2 (06:53→20:24)
[2021-02-17] MEDS: QUEtiapine 25 MG Tablet 12.5 MG PO ×2 (07:58→20:23)
[2021-02-17] MEDS: Tamsulosin HCl 0.4 MG Capsule PO (07:58)
[2021-02-17] MEDS: Aspirin 81 MG TAB.CHEW PO (07:58)
[2021-02-17] MEDS: Pantoprazole Sodium 40 MG Tablet PO (07:58)
[2021-02-17] MEDS: buPROPion (SR) 150 MG Tablet.SA PO ×2 (07:58→20:24)
[2021-02-17] MEDS: Escitalopram Oxalate 20 MG Tablet PO (07:58)
[2021-02-17] MEDS: Gabapentin 600 MG Tablet PO ×2 (07:59→20:22)
--- NOTE | 2021-02-17 08:30 | NURSING ---
pt left the unit with daughter to go to an appointment
[2021-02-17 08:48] VITALS: BP 119/58; PULSE 84; RESP 16; TEMP 36.8; O2SAT 93
[2021-02-17 16:25] VITALS: BMI 24.5
[2021-02-17 19:12] VITALS: BP 122/50; PULSE 89; RESP 18; TEMP 36.8; O2SAT 97
[2021-02-17 20:18] VITALS: BMI 24.5
[2021-02-17 20:21] VITALS: BMI 24.5
[2021-02-17] MEDS: Atorvastatin Calcium 80 MG Tablet PO (20:22)
[2021-02-17] MEDS: MELATONIN 3 MG TABLET PO (20:22)
[2021-02-17] MEDS: Senna/Docusate Sodium 1 Tablet 2 TABLET PO (20:23)
[2021-02-17 22:00] VITALS: PULSE 67; RESP 16; O2SAT 97
[2021-02-18] MEDS: Acetaminophen 500 MG Tablet 1000 MG PO ×3 (06:20→22:21)
[2021-02-18] MEDS: Enoxaparin 40 MG/0.4 ML Syringe SC (06:20)
[2021-02-18 07:45] VITALS: BP 147/65; PULSE 79; RESP 16; TEMP 36.4; O2SAT 96
[2021-02-18] MEDS: Escitalopram Oxalate 20 MG Tablet PO (07:51)
[2021-02-18] MEDS: Gabapentin 600 MG Tablet PO ×2 (07:51→22:22)
[2021-02-18] MEDS: Aspirin 81 MG TAB.CHEW PO (07:51)
[2021-02-18] MEDS: Tamsulosin HCl 0.4 MG Capsule PO (07:51)
[2021-02-18] MEDS: QUEtiapine 25 MG Tablet 12.5 MG PO ×2 (07:52→22:21)
[2021-02-18] MEDS: buPROPion (SR) 150 MG Tablet.SA PO ×2 (07:52→22:21)
[2021-02-18] MEDS: Pantoprazole Sodium 40 MG Tablet PO (07:52)
[2021-02-18 14:31] VITALS: BMI 24.5
[2021-02-18 19:18] VITALS: BP 135/56; PULSE 87; RESP 15; TEMP 36.4; O2SAT 96
[2021-02-18 22:00] VITALS: PULSE 80; RESP 16; O2SAT 96
[2021-02-18] MEDS: Senna/Docusate Sodium 1 Tablet 2 TABLET PO (22:21)
[2021-02-18] MEDS: Atorvastatin Calcium 80 MG Tablet PO (22:21)
[2021-02-18] MEDS: MELATONIN 3 MG TABLET PO (22:21)
[2021-02-18 22:30] VITALS: BMI 24.5
[2021-02-19] MEDS: oxyCODONE 5 MG Tablet PO (04:48)
[2021-02-19] MEDS: Acetaminophen 500 MG Tablet 1000 MG PO ×2 (05:43→14:11)
[2021-02-19] MEDS: Enoxaparin 40 MG/0.4 ML Syringe SC (05:44)
[2021-02-19] MEDS: Gabapentin 600 MG Tablet PO (07:54)
[2021-02-19] MEDS: Tamsulosin HCl 0.4 MG Capsule PO (07:54)
[2021-02-19] MEDS: QUEtiapine 25 MG Tablet 12.5 MG PO (07:54)
[2021-02-19] MEDS: Senna/Docusate Sodium 1 Tablet 2 TABLET PO (07:54)
[2021-02-19] MEDS: Aspirin 81 MG TAB.CHEW PO (07:54)
[2021-02-19] MEDS: buPROPion (SR) 150 MG Tablet.SA PO (07:54)
[2021-02-19] MEDS: Escitalopram Oxalate 20 MG Tablet PO (07:55)
[2021-02-19] MEDS: Pantoprazole Sodium 40 MG Tablet PO (07:55)
[2021-02-19 08:33] VITALS: BP 139/59; PULSE 77; RESP 16; TEMP 36.5; O2SAT 96
--- NOTE | 2021-02-19 09:48 | PCM.PROGNOTE ---
Subjective Subjective Blessing has no complaints today. She is sleeping well. The Seroquel twice a day has really helped with the emotional lability, she is doing well even though her has been a pt in the hospital and is not able to visit daily. She is afebrile Vital signs are stable She is maintaining appropriate oxygen saturation on room air Adequate oral intake Therapy notes were reviewed. She is still requiring assistance for transfers and especially getting out of bed due to loss of balance. Continues to have problems remembering how to use the walker. She has been up and down 5 steps with minimal assistance and 1 rail but had multiple episodes of loss of balance. Still requiring max cues at times to complete her tasks. She fatigues easily. She is able to eat and do her grooming with supervision/set up. She requires moderate assistance with bathing and total assistance with dressing and toileting. Dementia is a big factor in her inability to progress further with therapy. She was admitted to rehab her from the fall and the Left humerus fracture and not from a stroke. she had no new neurologic deficits from the recent CVA. I contacted her dtr Nasrin to discuss plans for DC. She told me that she works all day and so do her siblings. Nasrin is at her [employer] condo about 3 hours in the evenings. Jerod has been the primary direct care specialist. Jerod is still in the hospital for NSTEMI and acute CHF. He has had a CABG in the past and PCI. His EF is only 40%. He is having a cardiac cath today. He will not be able to assist Blessing at home safely and he should not be doing any lifting. Blessing will be discharged from rehab on Wednesday. She has plateaued with therapy. Transferring to a SNF will likely not be beneficial. Nasrin states they have thought about getting home care for the daytime hours but, they have not hired a company to do this. I offered to have the family come in and talk with me and the SW but, she tells me that she can not come in as she has just started a new job. Her brother drives a semi and is not available and her sis also works. I reinforced with her that Blessing requires 24/7 supervision and Jerod is not going to be able to assist her due to the IA/CHF. I am awaiting the results of the cath......may need PCI vs surgery. Blessing will not be safe at home without 24 hour supervision. Will discuss with the SW. Objective Data Objective Data Vital Signs: Vital Signs Temp Pulse Resp BP Pulse Ox 97.7 F L 77 16 139/59 H 96 02/19/21 08:33 02/19/21 08:33 02/19/21 08:33 02/19/21 08:33 02/19/21 08:33 Oxygen Delivery Method Room Air Weight: 145 lb 1.027 oz Body Mass Index (BMI) 24.5 Intake & Output: Intake and Output for Last 24 Hours 02/17/21 02/18/21 02/19/21 23:59 23:59 23:59 Intake Total 920 / 920 1440 / 1440 360 / 360 Output Total 200 / 200 Balance 720 / 720 1440 / 1440 360 / 360 Lab / Micro Data Result Diagrams: 02/07/21 05:40 02/07/21 05:40 Physical Exam Const alert and no apparent distress Constitutional Narrative: sitting in the recliner Resp clear to auscultation bilaterally Cardio regular rate, regular rhythm and no gallops GI normal to inspection, nondistended, normoactive bowel sounds Extremity no calf tenderness Extremity Narrative: minimal edema in the L hand now. Skin General Skin Exam: no breakdown Rashes: no rashes Assessment & Plan Assessment/Plan (1) Ischemic cerebrovascular accident (CVA): (2) Physical debility: (3) Closed fracture of shaft of left humerus: QUALIFIERS: Encounter type: subsequent encounter Fracture morphology: comminuted Fracture alignment: nondisplaced Fracture healing: with routine healing Qualified Code(s): S42.355D - Nondisplaced comminuted fracture of shaft of humerus, left arm, subsequent encounter for fracture with routine healing (4) Vascular dementia: QUALIFIERS: Dementia behavioral disturbance: without behavioral disturbance Qualified Code(s): F01.50 - Vascular dementia without behavioral disturbance (5) Emotional lability: PLAN: Will discuss DC with the SW. Blessing will be discharged on Wednesday and the family needs to come up with a plan for 22/03 care and supervision in order for her to be safe at home. The family has not even thought about it at this time. Continue therapy. Continue Seroquel.....it is very beneficial in controlling behavior/emotional lability. Charges/Coding Visit Charges Inpatient E&M: 20319 Subs Hosp L2
--- NOTE | 2021-02-19 13:42 | PN.PALL_ITS ---
Subjective Subjective Patient sitting up in chair, getting ready to do some therapy. Reports she currently has no pain. Bowels are moving okay. States her spouse is in the hospital with CHF exacerbation. She is really hoping to leave today. Looks like there are tentative plans for discharge 02/23. Staff telling me she needs to go to a facility but is resistant. They are going to have a talk with the family. In the last 48 hours, she has gotten 1 dose of as needed oxycodone. Otherwise, getting it once per day or less. She remains on scheduled Tylenol 1 g every 8 hours. She was started on Seroquel 02/13. Objective Data Objective Data Vital Signs: Vital Signs Temp Pulse Resp BP Pulse Ox 97.7 F L 77 16 139/59 H 96 02/19/21 08:33 02/19/21 08:33 02/19/21 08:33 02/19/21 08:33 02/19/21 08:33 Oxygen Delivery Method Room Air Weight: 65.8 kg Body Mass Index (BMI) 24.5 Intake & Output: Intake and Output for Last 24 Hours 02/17/21 02/18/21 02/19/21 23:59 23:59 23:59 Intake Total 920 / 920 1440 / 1440 360 / 360 Output Total 200 / 200 Balance 720 / 720 1440 / 1440 360 / 360 Lab / Micro Data Result Diagrams: 02/07/21 05:40 02/07/21 05:40 Physical Exam Const alert and no apparent distress General Appearance: cooperative Orientation / Consciousness: oriented to person, oriented to place and confused Resp Auscultation: clear to auscultation bilaterally and diminished lung sounds Cardio S1 normal heart sound and S2 normal heart sound GI normal to inspection, nondistended, normoactive bowel sounds Extremity Extremity Narrative: Tenderness to LUE, no significant edema. Brace in place Psych Memory / Cognition: cognition impaired Assessment & Plan Assessment/Plan (1) Debility: (2) Multiple falls: (3) Closed fracture of shaft of left humerus: QUALIFIERS: Encounter type: subsequent encounter Fracture morphology: comminuted Fracture alignment: nondisplaced Fracture healing: with routine healing Qualified Code(s): S42.355D - Nondisplaced comminuted fracture of shaft of humerus, left arm, subsequent encounter for fracture with routine healing (4) Neuropathic pain: (5) Low back pain: (6) Vascular dementia: QUALIFIERS: Dementia behavioral disturbance: without behavioral disturbance Qualified Code(s): F01.50 - Vascular dementia without behavioral di sturbance (7) Anxiety and depression: (8) Meningioma: (9) Cerebrovascular disease: (10) Cognitive dysfunction: (11) MDS (myelodysplastic syndrome), low grade: (12) Myeloma: QUALIFIERS: Multiple myeloma remission status: in remission Qualified Code(s): C90.01 - Multiple myeloma in remission (13) Ischemic cerebrovascular accident (CVA): (14) Subdural hematoma: (15) Seizure disorder: (16) S/P craniotomy: (17) Iron deficiency anemia: QUALIFIERS: Iron deficiency anemia type: unspecified iron deficiency Qualified Code(s): D50.9 - Iron deficiency anemia, unspecified PLAN: 75-year-old female with recent history of ischemic CVA and fall status post closed fracture of left humeral shaft, seen today for initial palliative care consultation secondary to pain and weakness, advanced n eurological disease with vascular dementia, as well debility and recurrent hospitalizations. The family has requested evaluation. 1. Cognitive deficits: Multiple strokes in the past, vascular dementia, meningioma status post GK, seems to be declining per family. Nursing concerned that pain medication will alter her cognitive status, seems to be tolerating ok. See below 2. Acute left upper extremity pain 2/2 fracture: stable, continue oxycodone PRN and scheduled tylenol. Patient is a fall risk, however has chair alarm on. Adjust medications as needed, no current changes. 3. Chronic low back pain: Scheduled Tylenol, as needed Oxy, therapy, heating pad or ice as needed 4. Anxiety and depression: stable, recently started on seroquel per hospitalist. Vascular dementia. She is on bupropion and escitalopram. Defer management to hospitalist. 5. MDS/seizure disorder/JUSTA/history of CVA: Complicates overall care, management, recovery, and prognosis. Defer management to specialists and attending. Thank you for the opportunity to participate in this patient's care, please do not hesitate to contact [facility] with any further questions or concerns. Palliative direct line is [phone]. We will follow up prn while in hospital and routinely after discharge. Possible d/c 02/23 Greater than 50% of F2F visit dedicated to education and counseling of palliative care services, medications, comorbid conditions and potential assistance with management, and plan of care moving forward. Agreeable to palliative services. Start time: 1330 End time: 1352
[2021-02-19 16:11] VITALS: BMI 24.5
[2021-02-19 19:51] VITALS: BP 149/54; PULSE 73; RESP 18; TEMP 36.7; O2SAT 98
[2021-02-19 23:25] VITALS: O2SAT 96; BMI 24.5
[2021-02-20] MEDS: Atorvastatin Calcium 80 MG Tablet PO ×2 (00:13→21:55)
[2021-02-20] MEDS: MELATONIN 3 MG TABLET PO ×2 (00:13→21:56)
[2021-02-20] MEDS: QUEtiapine 25 MG Tablet 12.5 MG PO ×3 (00:14→21:55)
[2021-02-20] MEDS: Senna/Docusate Sodium 1 Tablet 2 TABLET PO (00:14)
[2021-02-20] MEDS: Gabapentin 600 MG Tablet PO ×3 (00:14→21:56)
[2021-02-20] MEDS: Acetaminophen 500 MG Tablet 1000 MG PO ×4 (00:15→21:55)
[2021-02-20] MEDS: buPROPion (SR) 150 MG Tablet.SA PO ×3 (00:16→21:56)
[2021-02-20] MEDS: Enoxaparin 40 MG/0.4 ML Syringe SC (07:14)
[2021-02-20 08:42] VITALS: BP 116/46; PULSE 80; RESP 16; TEMP 37.2; O2SAT 94
[2021-02-20] MEDS: Aspirin 81 MG TAB.CHEW PO (10:24)
[2021-02-20] MEDS: Tamsulosin HCl 0.4 MG Capsule PO (10:24)
[2021-02-20] MEDS: Escitalopram Oxalate 20 MG Tablet PO (10:24)
[2021-02-20] MEDS: Pantoprazole Sodium 40 MG Tablet PO (10:25)
--- NOTE | 2021-02-20 11:45 | CASEMGMT ---
Social Work Team meeting held today with pt present. Pt is receiving PT/OT/ST. Speech therapy seeing pt for cognition and memory. Pt is participating with therapy. Last Covered Day is Wednesday02/23/21. At this time pt is Mod-Max A for personal care. Pt lives at home with her spouse Jerod. Jerod is currently in the hospital with medical issues and is unable to care for pt. Dr. Russ spoke with Jerod yesterday and confirms he is agreeable that pt cannot return home and would like TCU at discharge. TCU is able to accept pt. SW spoke with pt about this and she is agreeable to transfer to TCU on 02/23/21 for continued rehabilitation. Phone call placed to pt dgt Nasrin and updated on the discharge plan. Nasrin is thankful that pt can go to TCU. CHELA explained to Nasrin that it will be a very short term stay and family needs to start working on a halfway plan as pt will likely need 24 hour supervision and assistance at time of discharge. Family states a family meeting is scheduled for tomorrow night to discuss options. CHELA discussed private duty aids and possible Assisted living. D/C Date: Friday 02/23 [facility]
--- NOTE | 2021-02-20 12:12 | PCM.PN.BLA ---
Progress Note Blessing was seen on team rounds today. No family was able to participate. Afebrile VSS Maintaining appropriate oxygen saturation on RA Oral intake is fair. Discussed with nursing - no problems that need addressed Reviewed the PT/OT/ST notes Medication list reviewed. Blessing is sleeping well and her VS's are stable. She has no complaints today. Pain is well controlled. She knows Nils has been sick. I told her at this time because of the humerus fracture and the fact that she needs so much assistance she will need to get more therapy prior to going home. She ws OK with TCU after I told her I talked with Nils and he was OK with the plan. Physical Exam Const alert and no apparent distress Constitutional Narrative: She is smiling and talking with everyone. She is making good eye contact and seems happy. Emotions are in better control. No longer crying like she was doing. General Appearance: cooperative, comfortable and well kempt Resp normal respiratory effort, normal air movement and clear to auscultation bilaterally Effort and Inspection: able to speak in complete sentences Cardio regular rate, regular rhythm and no gallops GI soft to palpation, non-tender and non-distended Extremity no calf tenderness and no pedal edema Skin General Skin Exam: no breakdown Rashes: no rashes Neuro CN's II-XII intact bilaterally, moves all extremities and no sensory deficits noted Psych cooperative Assessment & Plan Assessment/Plan (1) Physical debility: (2) Closed fracture of shaft of left humerus: QUALIFIERS: Encounter type: subsequent encounter Fracture morphology: comminuted Fracture alignment: nondisplaced Fracture healing: with routine healing Qualified Code(s): S42.355D - Nondisplaced comminuted fracture of shaft of humerus, left arm, subsequent encounter for fracture with routine healing (3) Ischemic cerebrovascular accident (CVA): (4) MDS (myelodysplastic syndrome), low grade: (5) Vascular dementia: QUALIFIERS: Dementia behavioral disturbance: without behavioral disturbance Qualified Code(s): F01.50 - Vascular dementia without behavioral disturbance PLAN: 1. CBC, BMP and a vitamin D level in the AM 2. continue therapy 3. DC to TCU on Wednesday. Visit Charges Inpatient E&M: 59936 Subs Hosp L2
[2021-02-20 16:25] VITALS: BMI 24.5
--- NOTE | 2021-02-20 16:45 | CHAPLAIN ---
Type of Pastoral Visit ___ Initial Visit _x__ Follow-up Visit ___ On-call Visit ___ General Patient Visit ___ Spiritual Assessment ___ Family Conference ___ Bereavement ___ Rapid Response ___ Code Blue ___ Other (describe below) Pastoral Care Referral From _x__ Patient ___ Family ___ Nurse ___ Physician ___ Lead Carpenter ___ Lightning Protection Installer ___ Other (describe below) Sacrament/Intervention _x__ Active listening ___ Anointing ___ Jain ___ Bereavement ___ Communion _x__ Orly exploration ___ ___ Life review _x__ Prayer ___ Reconciliation ___ Sacrament of Sick _x__ Supportive presence ___ Wedding ___ Other (describe below) Pastoral Comments patient is cheerful at beginning of visit but later reveals how she is getting upset or angry with family and nobody telling me anything and now I have to go somewhere else; pt admits that the stroke has affected her thinking and her memory/understanding; pt feels like family is doing something but not telling her; reassurance of people/staff/family making plans for her good and these people care deeply for her; pt agrees but says she has a hard time remembering that; pt had a list of Bible verses and thought that was a nice gift to her from someone; prayer and presence welcomed;
[2021-02-20 19:30] VITALS: BP 116/54; PULSE 89; RESP 16; TEMP 36.6; O2SAT 97
[2021-02-21 04:38] VITALS: BMI 24.5
[2021-02-21 06:02] LABS: Absolute Neutrophil Count 4.9 X10^3/uL (2.0-7.7); Basophil# 0.04 X10^3/uL; Basophil% 0.4 % (0-1); Eosinophil# 0.36 X10^3/uL; Eosinophils% 3.7 % (0-5); Hematocrit 33.8 % (37-47); Hemoglobin 10.6 g/dL (12.0-15.0); Lymphocyte % 14.5 % (19-41); Mean Corp Hgb Conc 31.4 g/dL (32-36); Mean Corpuscular Hgb 31.6 pg (27.0-32.0); Mean Corpuscular Volume 100.9 fL (81-99); Mean Platelet Vol. 11.2 fl (6.2-12.0); Monocyte# 2.82 X10^3/uL; Monocyte% 29.2 % (0-10); NRBC Flagged by Analyzer 0 % (0-5); Neutrophil # 4.89 X10^3/uL (2.7-7.7); Neutrophil % 50.7 % (47-70); POSITIVE DIFFERENTIAL YES; Platelet Count 247 K/mm3 (150-450); RBC Distribution Width CV 14.4 % (11.6-14.6); RBC Distribution Width SD 53.1 fl (35.1-43.9); Red Blood Count 3.35 M/mm3 (4.2-5.4); White Blood Count 9.7 K/mm3 (4.4-11.0)
[2021-02-21 06:21] LABS: Differential Indicated SCAN CRITERIA MET
[2021-02-21 06:22] LABS: Anisocytosis 1+; Differential Comment SCANNED; Macrocytosis 1+
[2021-02-21 06:30] LABS: Anion Gap 5 (5-15); BUN 25 mg/dL (7-18); BUN/Creat Ratio 26.3 RATIO (10-20); Calcium,Total 8.3 mg/dL (8.5-10.1); Chloride 110 mmol/L (98-107); Creatinine, Serum 0.95 mg/dL (0.55-1.02); EST Glomerular Filtration Rate 61 mL/min (>60); Est Glom Filt Rate - Afr Amer 73 mL/min (>60); Estimated Creatinine Clearance 39.85 ml/min; Glucose 88 mg/dL (74-106); Potassium 4.3 mmol/L (3.5-5.1); Sodium Level 142 mmol/L (136-145)
[2021-02-21] MEDS: Acetaminophen 500 MG Tablet 1000 MG PO ×3 (06:35→20:42)
[2021-02-21] MEDS: Enoxaparin 40 MG/0.4 ML Syringe SC (06:36)
[2021-02-21 07:58] VITALS: BP 130/55; PULSE 81; RESP 16; TEMP 37; O2SAT 95
[2021-02-21] MEDS: Gabapentin 600 MG Tablet PO ×2 (08:16→20:44)
[2021-02-21] MEDS: Escitalopram Oxalate 20 MG Tablet PO (08:16)
[2021-02-21] MEDS: Pantoprazole Sodium 40 MG Tablet PO (08:16)
[2021-02-21] MEDS: QUEtiapine 25 MG Tablet 12.5 MG PO ×2 (08:16→20:42)
[2021-02-21] MEDS: Aspirin 81 MG TAB.CHEW PO (08:16)
[2021-02-21] MEDS: buPROPion (SR) 150 MG Tablet.SA PO ×2 (08:17→20:42)
[2021-02-21] MEDS: Tamsulosin HCl 0.4 MG Capsule PO (08:17)
[2021-02-21 08:22] LABS: Vitamin D,25 Hydroxy 68.5 ng/mL
[2021-02-21 09:29] VITALS: BMI 24.5
--- NOTE | 2021-02-21 10:05 | PCM.PN.BLA ---
Progress Note Afebrile Vital signs stable Maintaining appropriate oxygen saturation on room air Good oral intake Good bowel function All lab was personally reviewed. Hemoglobin is stable at 10.6. White blood cell count is within normal limits. Platelets are normal. Electrolytes are within normal limits. The BUN is 25 with a creatinine of 0.95 which is down from 1.43 on 09/18/2020. Vitamin D is normal. Physical Exam Const alert and no apparent distress General Appearance: cooperative; Negative for anxious Resp normal respiratory effort, normal air movement and clear to auscultation bilaterally Cardio regular rate, regular rhythm and no gallops GI normal to inspection, nondistended, normoactive bowel sounds Extremity no calf tenderness and no pedal edema Assessment & Plan Assessment/Plan (1) Physical debility: (2) Ischemic cerebrovascular accident (CVA): (3) Closed fracture of shaft of left humerus: QUALIFIERS: Encounter type: subsequent encounter Fracture morphology: comminuted Fracture alignment: nondisplaced Fracture healing: with routine healing Qualified Code(s): S42.355D - Nondisplaced comminuted fracture of shaft of humerus, left arm, subsequent encounter for fracture with routine healing PLAN: Continue therapy. Her is incapable of providing the increased level of assistance she needs at this time. She needs / supervision. She will be going to TCU at discharge and the SW will assist Nils and his family in making a plan for what to do when she is discharged from TCU. DC Lasix and monitor for increasing edema/weight. Visit Charges Inpatient E&M: 84999 Subs Hosp L2
[2021-02-21 19:24] VITALS: BP 112/53; PULSE 78; RESP 16; TEMP 36.9; O2SAT 96
[2021-02-21] MEDS: Atorvastatin Calcium 80 MG Tablet PO (20:44)
[2021-02-21] MEDS: MELATONIN 3 MG TABLET PO (20:45)
[2021-02-22] MEDS: Acetaminophen 500 MG Tablet 1000 MG PO ×3 (06:30→22:02)
[2021-02-22] MEDS: Enoxaparin 40 MG/0.4 ML Syringe SC (06:30)
[2021-02-22] MEDS: Pantoprazole Sodium 40 MG Tablet PO (07:28)
[2021-02-22] MEDS: Tamsulosin HCl 0.4 MG Capsule PO (07:28)
[2021-02-22] MEDS: Gabapentin 600 MG Tablet PO ×2 (07:28→20:04)
[2021-02-22] MEDS: Escitalopram Oxalate 20 MG Tablet PO (07:28)
[2021-02-22] MEDS: Aspirin 81 MG TAB.CHEW PO (07:28)
[2021-02-22] MEDS: QUEtiapine 25 MG Tablet 12.5 MG PO ×2 (07:29→20:04)
[2021-02-22] MEDS: buPROPion (SR) 150 MG Tablet.SA PO ×2 (07:29→20:05)
[2021-02-22 07:33] VITALS: BP 133/57; PULSE 78; RESP 12; TEMP 36.7; O2SAT 100
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
[2021-02-22 16:13] VITALS: BMI 24.5
[2021-02-22 19:29] VITALS: BP 117/44; PULSE 84; RESP 16; TEMP 36.6; O2SAT 97
[2021-02-22] MEDS: oxyCODONE 5 MG Tablet PO (20:03)
[2021-02-22] MEDS: MELATONIN 3 MG TABLET PO (20:04)
[2021-02-22] MEDS: Atorvastatin Calcium 80 MG Tablet PO (20:04)
[2021-02-22 20:09] VITALS: BMI 24.5
[2021-02-23] MEDS: Acetaminophen 500 MG Tablet 1000 MG PO ×2 (06:19→12:53)
[2021-02-23] MEDS: Enoxaparin 40 MG/0.4 ML Syringe SC (06:19)
[2021-02-23] MEDS: Aspirin 81 MG TAB.CHEW PO (08:28)
[2021-02-23 09:08] VITALS: BP 128/49; PULSE 86; RESP 16; TEMP 36.6; O2SAT 97
[2021-02-23] MEDS: Escitalopram Oxalate 20 MG Tablet PO (09:17)
[2021-02-23] MEDS: Tamsulosin HCl 0.4 MG Capsule PO (09:17)
[2021-02-23] MEDS: QUEtiapine 25 MG Tablet 12.5 MG PO (09:17)
[2021-02-23] MEDS: buPROPion (SR) 150 MG Tablet.SA PO (09:17)
[2021-02-23] MEDS: Gabapentin 600 MG Tablet PO (09:17)
[2021-02-23] MEDS: Pantoprazole Sodium 40 MG Tablet PO (09:17)
--- NOTE | 2021-02-23 10:08 | PCM.TXEXTCAR ---
Diet 01/31/21 12:23 Diet: Cardiac - Heart Healthy Routine Orders/Code Status Enema Type: Fleetz Enema Frequency: Daily PRN Keep PO Greater than or Equal to (%): 90 Code Status: Full Code Therapies Weight Bearing: Non weight bearing (on the left arm) Extremity Affected:: Left Upper Physical Therapy: Eval and Treat Occupational Therapy: Eval and Treat Speech Therapy: Eval and Treat Problem/Diagnosis (1) Physical debility: Status: Acute Comment: CRYSTALE (2) Closed fracture of shaft of left humerus: Status: Acute (3) Ischemic cerebrovascular accident (CVA): Status: Acute Comment: No focal neurologic change but with increased cognitive dysfunction (4) MDS (myelodysplastic syndrome), low grade: Status: Chronic (5) Vascular dementia: Status: Chronic Allergies/Procedures Done in Hospital Allergies sulfamethoxazole [From Bactrim] Allergy (Severe, Verified 01/21/21 11:19) Other SEIZUERE, LOSS OF MOVEMENT IN LEGS trimethoprim [From Bactrim] Allergy (Severe, Verified 01/21/21 11:19) Other SEIZURE LOSS OF MOVEMENT IN LEGS indomethacin Allergy (Verified 01/21/21 11:19) NEEDS FOLLOW-UP pneumococcal vaccine Allergy (Verified 01/21/21 11:19) NEEDS FOLLOW-UP morphine Adverse Reaction (Severe, Verified 01/21/21 11:19) Nausea Procedures: None Type of Care/Length of Stay Estimated LOS: Convalescent Care Less Than 30 days Type of Care Needed: Skilled Rehab Potential: Fair Prognosis: Fair Additional Orders/Day of Discharge H&P will serve as current which was dated: 01/31/21 Day of Discharge: 02/23/21 Dietary and Speech Recommendations Dietitian Recommendations/Changes: Rec continue current diet as ordered Please consult if changes in pt nutritional status Follow Up Care Please follow up with your Primary Care Physician in: following disharge from TCU Please Follow Up With: Neurology When: Please Follow Up With: Dr. Starr When: Wednesday Discharge Plan Admission Admit Date/Time: 01/31/21 11:59 Primary Reason for Your Visit: debility due to fracture of the left humerus and to ischemic CVA Attending Provider: Tonia Russ Primary Care Provider: Augusta Wilson Discharge Orders/Prescriptions Prescriptions: New quetiapine 25 mg Tablet 12.5 mg PO BID Qty: 1 RF: 0 sennosides-docusate sodium [Stool Softener-Stimulant Laxat] 8.6-50 mg Tablet 2 tab PO BID Qty: 1 RF: 0 melatonin 3 mg Tablet 3 mg PO QHS Qty: 1 RF: 0 acetaminophen 500 mg Tablet 1,000 mg PO Q8 Qty: 1 RF: 0 magnesium hydroxide 400 mg/5 mL Suspension 30 ml PO .PRN X 1 PRN (Reason: Constipation) Qty: 1 RF: 0 bisacodyl 10 mg Suppository 10 mg NH .PRN X 1 PRN (Reason: Constipation) Qty: 1 RF: 0 aspirin 81 mg Tablet,Chewable 81 mg PO DAILYCM Qty: 1 RF: 0 oxycodone 5 mg Tablet 5 mg PO Q6H PRN PRN (Reason: Pain 1-10) 7 Days Qty: 1 RF: 0 escitalopram oxalate 20 mg Tablet 20 mg PO DAILY Qty: 1 RF: 0 Continued enoxaparin 40 MG/0.4 ML syringe 40 mg SC DAILY@0600 RF: 0 atorvastatin 80 MG tablet 80 mg PO QHS Qty: 30 RF: 0 bupropion HCl 150 MG tablet sustained-release 12 hr 150 mg PO BID RF: 0 tamsulosin 0.4 MG capsule 0.4 mg PO DAILY@1730 RF: 0 cholecalciferol (vitamin D3) 1,250 MCG capsule 1,250 mcg PO DAILY RF: 0 pantoprazole 40 MG tablet 40 mg PO DAILY RF: 0 meclizine 25 MG tablet 25 mg PO Q8H PRN (Reason: Dizziness) Qty: 16 RF: 0 calcium carbonate 600 MG tablet 1,200 mg PO DAILY RF: 0 multivitamin with minerals 1 EACH tablet 1 ea PO DAILY RF: 0 mirabegron 25 MG tablet extended release 24 hr 25 mg PO DAILY RF: 0 acetaminophen 500 MG tablet 1,000 mg PO Q6H PRN PRN (Reason: Pain Score 1-3/10) RF: 0 levetiracetam 1,000 MG tablet 1,000 mg PO Q12H Qty: 60 RF: 0 polysaccharide iron complex 150 MG capsule 150 mg PO BIDCM RF: 0 mirtazapine 15 MG tablet 7.5 mg PO QHS RF: 0 gabapentin 100 MG capsule 100 mg PO BIDCM RF: 0 menthol-zinc oxide 1 APPLIC ointment 1 applic TOPICAL BID RF: 0 Discontinued dexamethasone 4 mg tablet 20 mg PO WE RF: 0 Escitalopram Oxalate 10 MG tablet 10 mg PO DAILY Qty: 30 RF: 0 furosemide 40 MG tablet 40 mg PO DAILY RF: 0 Referrals / Follow Up: Augusta Wilson DO [Primary Care Provider] - Disposition Disposition (needs filled in before D/C Order can be placed): Halfway Facility
--- NOTE | 2021-02-23 10:15 | DS.PCM_ITS ---
Providers Date of Admission: 01/31/21 Primary Care Physician: Dr. Augusta Wilson DO Reason For Visit: STROKE Diagnosis Discharge Diagnosis (1) Physical debility: Status: Acute Code(s): R53.81 - Other malaise (2) Closed fracture of shaft of left humerus: Status: Acute Code(s): S42.302A - Unspecified fracture of shaft of humerus, left arm, initial encounter for closed fracture Qualifiers: Encounter type: subsequent encounter Fracture morphology: comminuted Fracture alignment: nondisplaced Fracture healing: with routine healing Qualified Code(s): S42.355D - Nondisplaced comminuted fracture of shaft of humerus, left arm, subsequent encounter for fracture with routine healing (3) Ischemic cerebrovascular accident (CVA): Status: Acute Code(s): I63.9 - Cerebral infarction, unspecified (4) MDS (myelodysplastic syndrome), low grade: Status: Chronic Code(s): D46.20 - Refractory anemia with excess of blasts, unspecified (5) Vascular dementia: Status: Chronic Code(s): F01.50 - Vascular dementia without behavioral disturbance Qualifiers: Dementia behavioral disturbance: without behavioral disturbance Qualified Code(s): F01.50 - Vascular dementia without behavioral disturbance (6) Emotional lability: Status: Acute Code(s): R45.86 - Emotional lability Plan: DC to TCU for additional therapy prior to returning home Medications at Discharge Home Medications atorvastatin 80 mg PO QHS #30 tab 09/10/19 bupropion HCl 150 mg PO BID 09/26/19 tamsulosin 0.4 mg PO DAILY@1730 09/26/19 cholecalciferol (vitamin D3) 1,250 mcg PO DAILY 02/07/20 meclizine 25 mg PO Q8H PRN #16 tab 02/07/20 pantoprazole 40 mg PO DAILY 02/07/20 calcium carbonate 1,200 mg PO DAILY 04/17/20 mirabegron 25 mg PO DAILY 04/17/20 multivitamin with minerals 1 ea PO DAILY 04/17/20 acetaminophen 1,000 mg PO Q6H PRN PRN tab 05/20/20 levetiracetam 1,000 mg PO Q12H #60 tab 05/20/20 enoxaparin 40 mg SC DAILY@0600 06/26/20 gabapentin 100 mg PO BIDCM 01/31/21 menthol-zinc oxide 1 applic TOPICAL BID 01/31/21 mirtazapine 7.5 mg PO QHS 01/31/21 polysaccharide iron complex 150 mg PO BIDCM 01/31/21 acetaminophen 1,000 mg PO Q8 #1 tab 02/23/21 aspirin 81 mg PO DAILYCM #1 tab 02/23/21 bisacodyl 10 mg NJ .PRN X 1 PRN #1 ea 02/23/21 escitalopram oxalate 20 mg PO DAILY #1 tab 02/23/21 magnesium hydroxide 30 ml PO .PRN X 1 PRN #1 ml 02/23/21 melatonin 3 mg PO QHS #1 tab 02/23/21 oxycodone 5 mg PO Q6H PRN PRN 7 Days #1 tab 02/23/21 quetiapine 12.5 mg PO BID #1 tab 02/23/21 sennosides-docusate sodium [Stool Softener-Stimulant Laxat] 2 tab PO BID #1 tab 02/23/21 Hospital Course Operations None Procedures None Summary of Care Provided Minutes Spent on Discharge: 48 Hospital Course: RADHA SPENCER, is a 75 F with a PMH of multiple myeloma (treated by Dr. Gómez), chronic DVT prophylaxis with Lovenox, hypertension, hyperlipidemia, history of meningioma (she had gamma knife in the past), previous ischemic CVAs (right MCA CVA in January 2019 with left-sided weakness), cerebrovascular disease with multiple cryptogenic strokes, depression/anxiety, low-grade myelodysplastic syndrome, vascular dementia, craniotomy in March of 2020 for SDH due to a fall, seizure disorder and essential tremor who recently (01/21/2021) had a fall going up 1 step from the patio due to a misstep. She told the ER doc she was on her front porch and fell on her face. She was not wearing the BL ankle AFO's she is prescribed because the family feels they do not make a difference in her gait and they are cumbersome. She fractured the proximal Left humeral shaft. She was discharged from the ED at [facility] to [facility] in [place] for further care. A CT without contrast of the brain done at [facility] showed a small acute/subacute appearing infarct in the right middle frontal gyrus. ICA's BL are < 50% stenosed. Workup for hyperviscosity negative. No AFIB while at [facility]. No PFO on GILBERT and a normal EF. Blessing got stronger during her admission to the rehab unit but she still requires frequent verbal cues to manage the walker. Her progress is limited by vascular dementia and very poor short term memory. Prior to discharge she had ambulated up to 100 and feet with a hemiwalker at contact-guard assist. She was contact-guard assist/min assist for transfers from various surfaces, including the car. She had ascended and descended 5 steps with 1 rail at minimal ass istance with multiple losses of balance. She is able to go up and down a 3 inch [address] step at minimal assistance with maximal cues. She requires minimal assistance to get on and off an elevated commode but requires max to total assistance with toileting tasks, management of dependence/clothing and hygiene post BM. She is total assistance for upper body and lower body dressing. She is independent with eating and supervision/set up for grooming. Blessing was quite dehydrated and subsequently lightheaded at admission. She was on Lasix 40 BID and I am unsure of the reason for this because she has a normal EF with no diastolic dysfunction and she has a normal PA systolic. She was hydrated and the Lasix was held for a few days and then restarted at 40 mg daily. She continued to c/o lightheadedness and the BUN/CREAT ratio was elevated at 26.3. Lasix has been discontinued and the lungs remain clear and she has no peripheral edema in the legs. She initially had 3+ edema in the LUE but this has significantly improved and now she has minimal edema and her LUE is in a sling. Blessing had an NIHSS of 1 at admission to rehab for answering only 1 LOC question correctly. She has had a decrease in her cognitive function since the last time I cared for her and she requires constant simple verbal cuing to complete tasks. She was having quite a lot of emotional lability when her Nils would leave after visiting hours and was crying uncontrollably. She was started on Seroquel which controlled the outburst at night but, she started crying outbursts during the day and the Seroquel was changed to 12.5 mg BID and at the time of discharge she is very cheerful unless she is talking to Nils on the phone and then she gets tearful. Unfortunately Nils was admitted to the hospital during Blessing's time in rehab for NSTEMI and CHF. He is being medically managed but, he will be unable to provide total assistance to Blessing in the next several weeks and he will be going to cardiac rehab. I discussed this with Nils and his dtr Nasrin and they are unsure of what to do. The SW was informed and will provide counselling and advice on how to navigate possible placement in assisted living or a dementia unit in the future. she may be able to remain at home if 22/03 supervision is provided. Blessing was discharged on 02/23/21 to TCU. Her HGB is stable and the WBC is WNL. Creat is good at 0.95. Lasix was recently discontinued and she was encouraged to increase her fluid intake. She will follow up with Dr. Wilson following DC from TCU. She has an upcoming appt with neurology and with orthopedics. Physical Exam Const alert and no apparent distress Constitutional Narrative: She is smiling and talking with everyone. She is making good eye contact and seems happy. Emotions are in better control. No longer crying like she was doing. General Appearance: cooperative, comfortable and well kempt HEENT normocephalic Eyes PERRL and EOMs intact bilaterally Neck supple Neck Narrative: soft R carotid bruit Resp normal respiratory effort, normal air movement and clear to auscultation bilaterally Effort and Inspection: able to speak in complete sentences; Negative for tachypneic, respiratory distress or uses accessory muscles Cardio regular rate, regular rhythm, S1 normal heart sound, S2 normal heart sound, no rub and no gallops Heart Sounds: murmur GI normal to inspection, nondistended, normoactive bowel sounds, soft to palpation, non-tender and non-distended Palpation: Negative for guarding Extremity no calf tenderness Extremity Narrative: minimal edema in the L hand now. No edema in the LE's Skin General Skin Exam: no breakdown Rashes: no rashes Neuro CN's II-XII intact bilaterally, moves all extremities, no focal motor deficits and no sensory deficits noted Neuro Narrative: difficulty with balance more than usual since the LUE is in a sling Coordination / Balance: [id number] test normal Speech: speech normal Motor Exam: general weakness Psych cooperative and affect normal Psych Narrative: making good eye contact, pleasant, talkative. Does not seem anxious. Good modulation of her voice. Appearance: appropriate Thought Content: No hallucination(s) Weight / BMI Weight Weight: 142 lb 3.17 oz Body Mass Index (BMI) 24.5 ABG / Lab / Microbiology Data Result Diagrams: 02/21/21 05:55 02/21/21 05:55 Microbiology: Microbiology 02/22/21 18:30 SARS-CoV-2 Antigen (Rapid) - Final Mucosa - Nose Microbiology 02/22/21 18:30 Mucosa - Nose SARS-CoV-2 Antigen (Rapid) - Final D/C Instructions Please Follow Up With: Neurology Meaningful Use Info Meaningful Use Diagnoses (Choose all that apply): Ischemic CVA CVA Therapy Assessed for PT,OT and/or ST?: Yes Ischemic Stroke Antithrombotic order at d/c?: Yes Dx of Atrial fib/flutter?: No Anticoagulant at discharge?: No Reason anticoagulant not ordered: Treatment not Indicated Statins at discharge?: Yes Primary Dx Acute Ischemic CVA?: Yes IV tPA ordered during stay?: No Reason IV t-PA not ordered: Treatment not Indicated Discharge Plan Admission Admit Date/Time: 01/31/21 11:59 Primary Reason for Your Visit: debility due to fracture of the left humerus and to ischemic CVA Attending Provider: Tonia Russ Primary Care Provider: Augusta Wilson Discharge Orders/Prescriptions Prescriptions: New quetiapine 25 mg Tablet 12.5 mg PO BID Qty: 1 RF: 0 sennosides-docusate sodium [Stool Softener-Stimulant Laxat] 8.6-50 mg Tablet 2 tab PO BID Qty: 1 RF: 0 melatonin 3 mg Tablet 3 mg PO QHS Qty: 1 RF: 0 acetaminophen 500 mg Tablet 1,000 mg PO Q8 Qty: 1 RF: 0 magnesium hydroxide 400 mg/5 mL Suspension 30 ml PO .PRN X 1 PRN (Reason: Constipation) Qty: 1 RF: 0 bisacodyl 10 mg Suppository 10 mg NJ .PRN X 1 PRN (Reason: Constipation) Qty: 1 RF: 0 aspirin 81 mg Tablet,Chewable 81 mg PO DAILYCM Qty: 1 RF: 0 oxycodone 5 mg Tablet 5 mg PO Q6H PRN PRN (Reason: Pain 1-10) 7 Days Qty: 1 RF: 0 escitalopram oxalate 20 mg Tablet 20 mg PO DAILY Qty: 1 RF: 0 Continued enoxaparin 40 MG/0.4 ML syringe 40 mg SC DAILY@0600 RF: 0 atorvastatin 80 MG tablet 80 mg PO QHS Qty: 30 RF: 0 bupropion HCl 150 MG tablet sustained-release 12 hr 150 mg PO BID RF: 0 tamsulosin 0.4 MG capsule 0.4 mg PO DAILY@1730 RF: 0 cholecalciferol (vitamin D3) 1,250 MCG capsule 1,250 mcg PO DAILY RF: 0 pantoprazole 40 MG tablet 40 mg PO DAILY RF: 0 meclizine 25 MG tablet 25 mg PO Q8H PRN (Reason: Dizziness) Qty: 16 RF: 0 calcium carbonate 600 MG tablet 1,200 mg PO DAILY RF: 0 multivitamin with minerals 1 EACH tablet 1 ea PO DAILY RF: 0 mirabegron 25 MG tablet extended release 24 hr 25 mg PO DAILY RF: 0 acetaminophen 500 MG tablet 1,000 mg PO Q6H PRN PRN (Reason: Pain Score 1-3/10) RF: 0 levetiracetam 1,000 MG tablet 1,000 mg PO Q12H Qty: 60 RF: 0 polysaccharide iron complex 150 MG capsule 150 mg PO BIDCM RF: 0 mirtazapine 15 MG tablet 7.5 mg PO QHS RF: 0 gabapentin 100 MG capsule 100 mg PO BIDCM RF: 0 menthol-zinc oxide 1 APPLIC ointment 1 applic TOPICAL BID RF: 0 Discontinued dexamethasone 4 mg tablet 20 mg PO WE RF: 0 Escitalopram Oxalate 10 MG tablet 10 mg PO DAILY Qty: 30 RF: 0 furosemide 40 MG tablet 40 mg PO DAILY RF: 0 Referrals / Follow Up: Augusta Wilson DO [Primary Care Provider] - Disposition Disposition (needs filled in before D/C Order can be placed): Assisted Facility Charges/Coding Visit Charges Inpatient E&M: 96297 Disch Hosp
[2021-02-23] MEDS: oxyCODONE 5 MG Tablet PO (11:30)
[2021-02-23 13:02] VITALS: BMI 24.5
[2021-02-23 18:17] VITALS: BP 128/49; PULSE 86; RESP 16; TEMP 36.6; O2SAT 97
--- NOTE | 2021-02-23 18:20 | NURSING ---
Discharged to TCU at this time, report given, visited patient earlier today.
== END 2021-02-23 18:20 | disposition skilled nursing facility (03) | DRG 560 ==
PROVIDERS: Admitting Provider Internal Medicine; PCP Family Medicine; Visit Provider Internal Medicine
DX: S42.355D Nondisplaced comminuted fracture of shaft of humerus, left arm, subsequent encounter for fracture with routine healing (principal); I69.354 Hemiplegia and hemiparesis following cerebral infarction affecting left non-dominant side; C90.01 Multiple myeloma in remission; W17.89XD Other fall from one level to another, subsequent encounter; E78.5 Hyperlipidemia, unspecified; G25.0 Essential tremor; F01.50 Vascular dementia, unspecified severity, without behavioral disturbance, psychotic disturbance, mood disturbance, and anxiety; F32.9 Major depressive disorder, single episode, unspecified; F41.9 Anxiety disorder, unspecified; R29.6 Repeated falls; D50.9 Iron deficiency anemia, unspecified; I10 Essential (primary) hypertension; G40.909 Epilepsy, unspecified, not intractable, without status epilepticus; Z79.899 Other long term (current) drug therapy; Z79.82 Long term (current) use of aspirin
CPT/HCPCS: 36415; 80048; 80053; 82306; 83735; 84100; 85025; 85027; 87426; 92507; 97110; 97112; 97116; 97129; 97130; 97162; 97166; 97530; 97535; 97802; 99251; G0463

== ENCOUNTER 2021-02-23 18:27 | Inpatient (IN) | payer MEDICARE, OTHER, SELFPAY ==
[2021-02-23 13:02] VITALS: BMI 24.5
[2021-02-23 18:30] VITALS: BP 124/53; PULSE 87; RESP 16; TEMP 36.6; O2SAT 94; BMI 25.4
--- NOTE | 2021-02-23 20:07 | HP.PCM_ITS ---
HPI - General General Date of Admission: 02/23/21 HPI Narrative 01/31/2021 RADHA SPENCER, is a 75 Female admitted to . Treated at [facility] for stroke, left humerus fracture. PT/OT/ST. 02/11/2021 Sleeping better with Seroquel 12.5MG at bedtime. Pain controlled with oxycodone 5MG. 02/13/2021 Emotional lability from stroke. 02/15/2021 Mood is stable, less crying. 02/20/2021 Nlis has medical issues. Unable to provide 22/03 care for Blessing. 02/21/2021 Recommend TCU until Nils more stable. 02/23/2021 Admit to TCU with debility, here for rehabilitation, strengthening, prior to discharge home with . [facility] Medical History Cancer Cellulitis Chronic neck and back pain Difficulty balancing when standing Emotional lability Limb weakness Meningioma Osteopenia Resolved ischemic left middle cerebral artery (MCA) stroke in remote past Stroke Home Medications atorvastatin 80 mg PO QHS #30 tab 09/10/19 [Rx Last Taken 04/21/20] bupropion HCl 150 mg PO BID 09/26/19 [History Last Taken 04/22/20] tamsulosin 0.4 mg PO DAILY@1730 09/26/19 [History Last Taken 04/21/20] cholecalciferol (vitamin D3) 1,250 mcg PO DAILY 02/07/20 [History Last Taken 04/22/20] meclizine 25 mg PO Q8H PRN #16 tab 02/07/20 [Rx Last Taken Unknown] pantoprazole 40 mg PO DAILY 02/07/20 [History Last Taken 04/22/20] calcium carbonate 1,200 mg PO DAILY 04/17/20 [History Last Taken 04/22/20] mirabegron 25 mg PO DAILY 04/17/20 [History Last Taken 04/22/20] multivitamin with minerals 1 ea PO DAILY 04/17/20 [History Last Taken 04/22/20] acetaminophen 1,000 mg PO Q6H PRN PRN tab 05/20/20 [Rx Last Taken Unknown] enoxaparin 40 mg SC DAILY@0600 06/26/20 [History Last Taken Unknown] gabapentin 100 mg PO BIDCM 01/31/21 [History Last Taken Unknown] menthol-zinc oxide 1 applic TOPICAL BID 01/31/21 [History Last Taken Unknown] mirtazapine 7.5 mg PO QHS 01/31/21 [History Last Taken Unknown] polysaccharide iron complex 150 mg PO BIDCM 01/31/21 [History Last Taken Unknown] acetaminophen 1,000 mg PO Q8 02/23/21 [History Last Taken Unknown] aspirin 81 mg PO DAILYCM 02/23/21 [History Last Taken Unknown] bisacodyl 10 mg SD .PRN X 1 PRN #1 ea 02/23/21 [Rx Last Taken Unknown] escitalopram oxalate 20 mg PO DAILY 02/23/21 [History Last Taken Unknown] levetiracetam 1,000 mg PO Q12H 02/23/21 [History Last Taken Unknown] magnesium hydroxide 30 ml PO .PRN X 1 PRN #1 ml 02/23/21 [Rx Last Taken Unknown] melatonin 3 mg PO QHS 02/23/21 [History Last Taken Unknown] oxycodone 5 mg PO Q6H PRN PRN 7 Days #1 tab 02/23/21 [Rx Last Taken Unknown] quetiapine 12.5 mg PO BID 02/23/21 [History Last Taken Unknown] sennosides-docusate sodium [Stool Softener-Stimulant Laxat] 2 tab PO BID 02/23/21 [History Last Taken Unknown] Allergy/AdvReac Type Severity Reaction Status Date / Time sulfamethoxazole Allergy Severe Other Verified 01/21/21 11:19 [From Bactrim] trimethoprim [From Bactrim] Allergy Severe Other Verified 01/21/21 11:19 indomethacin Allergy NEEDS Verified 01/21/21 11:19 FOLLOW-UP pneumococcal vaccine Allergy NEEDS Verified 01/21/21 11:19 FOLLOW-UP morphine AdvReac Severe Nausea Verified 01/21/21 11:19 Family History Mother Breast cancer Sister Breast cancer Aunt Breast cancer Daughter History of malignant melanoma Father Brain cancer Brother Lung cancer Surgical History History of back surgery History of brain surgery History of cholecystectomy History of hysterectomy Social History (Updated 02/23/21 @ 20:[address] Jovanni Steven MD) household members: spouse Smoking Status: Never smoker alcohol intake: never ROS Constitutional Constitutional: Denies chills, fever(s) or weight gain ENT HEENT: Denies headache(s), nasal congestion or nasal discharge Cardiovascular Cardiovascular: Denies chest pain or palpitations Respiratory/Chest Respiratory/Chest: Denies cough, excessive phlegm production or shortness of breath with exertion Gastrointestinal Gastrointestinal: Denies abdominal pain, nausea or vomiting Genitourinary Genitourinary: Denies dysuria Musculoskeletal Musculoskeletal: Denies joint pain or joint swelling Integumentary Integumentary: Denies rash or wounds Neurologic Neurologic: Denies focal weakness, numbness or tingling Psychiatric Psychiatric: Reports auditory hallucinations; Denies anxiety, depression, homicidal ideation or suicidal ideation Vital Signs Vital Signs Vital Signs: 02/23/21 18:30 Temperature 97.8 F Temperature Source Oral Pulse Rate 87 Respiratory Rate 16 Blood Pressure 124/53 H Blood Pressure Mean 76 Blood Pressure Source Manual Blood Pressure Position Sitting Blood Pressure Location Right Arm Pulse Ox 94 Oxygen Delivery Method Room Air Weight Weight: 65.317 kg Body Mass Index (BMI) 25.4 Physical Exam Const alert and oriented x3 General Appearance: cooperative HEENT normocephalic Eyes PERRL and EOMs intact bilaterally Neck supple, no JVD and no carotid bruits Resp normal respiratory effort, normal air movement and clear to auscultation bilaterally Cardio regular rate and regular rhythm GI normal to inspection, nondistended, normoactive bowel sounds, non-tender and non-distended Extremity normal capillary refill Extremity Narrative: Left upper extremity sling. General Extremity: Negative for edema Skin no rashes or lesions noted General Skin Exam: no breakdown Psych affect normal Appearance: appropriate Results Lab / Micro Data Result Diagrams: 02/24/21 05:10 02/24/21 05:10 Assessment & Plan Assessment/Plan (1) Debility: (2) Stroke: (3) Closed left humeral fracture: (4) Multiple myeloma: (5) Chronic deep vein thrombosis (DVT): (6) Hypertension: (7) Hyperlipidemia: (8) Meningioma: (9) Left hemiparesis: (10) Myelodysplastic syndrome: (11) Vascular dementia: (12) Depression: (13) Anxiety: (14) Subdural hematoma: (15) Seizure disorder: (16) Essential tremor: (17) Urinary retention: (18) Dizziness: (19) Gastroesophageal reflux disease: (20) Overactive bladder: PLAN: 75 year old female with below past medical history admitted to for stroke, left humerus fracture, transferred to TCU with debility, here for rehabilitation, strengthening, prior to discharge home with . * Debility - PT/OT. * Cognition - ST. * Pain - Tylenol 1000MG Q8H, Q6H PRN, Oxycodone 5MG Q6H PRN. * Bowel - Senna/colace 2 tablets twice daily, MOM 30ML daily PRN, Fleets enema SD daily PRN, Dulcolax 10MG SD PRN. * Adult immunization - Administer Prevnar 13, Pneumovax 23, Fluzone, COVID19 vaccine as appropriate. * DVT prophylaxis - Lovenox 40MG SC daily. * Stroke - Aspirin 81MG daily. * Hyperlipidemia - Atorvastatin 80MG QHS. 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 * Calcium deficiency - Calcium 1200MG daily. * Vitamin D deficiency - D 1.25MG daily. * Neuropathic pain - Gabapentin 100MG BID. * Iron deficiency anemia - Ferrex 150MG BID. * Seizure disorder - Keppra 1000MG Q12H. * Dizziness - Meclizine 25MG Q8H PRN. 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 * Skin irritation - Calmoseptine topical BID. * Overactive bladder - Myrbetriq 25MG daily. * Appetite loss - Mirtazapine 7.5MG QHS, stable chronic penitentiary use, GDR not recommeded. * Nutrition - MVI daily. * GERD - Pantoprazole 40MG daily. * Behavioral disorder secondary vascular dementia - Seroquel 12.5MG twice daily, stable chronic penitentiary use, GDR not recommended. * Urinary retention - Tamsulosin 0.4MG daily.
[2021-02-23] MEDS: Atorvastatin Calcium 80 MG Tablet PO (22:01)
[2021-02-23] MEDS: levETIRAcetam 1,000 MG Tablet 1000 MG PO (22:01)
[2021-02-23] MEDS: MELATONIN 3 MG TABLET PO (22:01)
[2021-02-23] MEDS: Mirtazapine 15 MG Tablet 7.5 MG PO (22:02)
[2021-02-23] MEDS: buPROPion (SR) 150 MG Tablet.SA PO (22:02)
[2021-02-23] MEDS: QUEtiapine 25 MG Tablet 12.5 MG PO (22:03)
[2021-02-23] MEDS: Menthol/Lanolin/Calamine/Znox 113 GM Tube 1 APPLIC TOPICAL (22:03)
[2021-02-23] MEDS: Acetaminophen 500 MG Tablet 1000 MG PO (22:04)
[2021-02-24 05:00] VITALS: BP 135/49; PULSE 80; RESP 16; TEMP 36.2; O2SAT 96
[2021-02-24] MEDS: Calcium (Elemental) 500 MG Tablet 1250 MG PO (05:25)
[2021-02-24] MEDS: Senna/Docusate Sodium 1 Tablet 2 TABLET PO ×2 (05:25→17:06)
[2021-02-24] MEDS: Cholecalciferol (VIT D3) 25 MCG TABLET (1,000 UNITS) 125 MCG PO (05:25)
[2021-02-24] MEDS: buPROPion (SR) 150 MG Tablet.SA PO ×2 (05:25→17:06)
[2021-02-24] MEDS: Escitalopram Oxalate 20 MG Tablet PO (05:25)
[2021-02-24] MEDS: Pantoprazole Sodium 40 MG Tablet PO (05:25)
[2021-02-24] MEDS: Mirabegron 25 MG TAB.ER.24H PO (05:25)
[2021-02-24] MEDS: levETIRAcetam 1,000 MG Tablet 1000 MG PO ×2 (05:26→17:06)
[2021-02-24] MEDS: Acetaminophen 500 MG Tablet 1000 MG PO ×3 (05:26→20:16)
[2021-02-24] MEDS: Enoxaparin 40 MG/0.4 ML Syringe SC (05:29)
[2021-02-24] MEDS: Menthol/Lanolin/Calamine/Znox 113 GM Tube 1 APPLIC TOPICAL ×2 (05:30→17:07)
[2021-02-24 05:47] LABS: Absolute Lymphocyte Count 1.47 X10^3/uL (0.83-4.51); Absolute Neutrophil Count 4.9 X10^3/uL (2.0-7.7); Basophil# 0.04 X10^3/uL; Basophil% 0.4 % (0-1); Eosinophil# 0.34 X10^3/uL; Eosinophils% 3.4 % (0-5); Hematocrit 36.4 % (37-47); Hemoglobin 11.5 g/dL (12.0-15.0); Lymphocyte # 1.47 X10^3/ul (0.83-4.51); Lymphocyte % 14.7 % (19-41); Mean Corp Hgb Conc 31.6 g/dL (32-36); Mean Corpuscular Hgb 32.4 pg (27.0-32.0); Mean Corpuscular Volume 102.5 fL (81-99); Mean Platelet Vol. 12.2 fl (6.2-12.0); Monocyte# 3.16 X10^3/uL; Monocyte% 31.6 % (0-10); NRBC Flagged by Analyzer 0 % (0-5); Neutrophil # 4.86 X10^3/uL (2.7-7.7); Neutrophil % 48.6 % (47-70); POSITIVE DIFFERENTIAL YES; Platelet Count 176 K/mm3 (150-450); RBC Distribution Width CV 14.2 % (11.6-14.6); RBC Distribution Width SD 53.8 fl (35.1-43.9); Red Blood Count 3.55 M/mm3 (4.2-5.4)
[2021-02-24 06:02] LABS: Anion Gap 4 (5-15); BUN 29 mg/dL (7-18); BUN/Creat Ratio 27.4 RATIO (10-20); Calcium,Total 8.4 mg/dL (8.5-10.1); Chloride 108 mmol/L (98-107); Creatinine, Serum 1.06 mg/dL (0.55-1.02); Differential Indicated SCAN CRITERIA MET; EST Glomerular Filtration Rate 53 mL/min (>60); Est Glom Filt Rate - Afr Amer 65 mL/min (>60); Estimated Creatinine Clearance 37.35 ml/min; Glucose 89 mg/dL (74-106); Potassium 4.3 mmol/L (3.5-5.1); Sodium Level 140 mmol/L (136-145)
[2021-02-24] MEDS: Multivitamins,Therapeutic Tablet 1 TABLET PO (08:51)
[2021-02-24] MEDS: Gabapentin 100 MG Capsule PO ×2 (08:51→17:06)
[2021-02-24] MEDS: Iron Polysaccharide Complex 150 MG CAPSULE PO ×2 (08:51→17:06)
[2021-02-24] MEDS: QUEtiapine 25 MG Tablet 12.5 MG PO ×2 (08:51→20:14)
[2021-02-24] MEDS: Aspirin 81 MG TAB.CHEW PO (08:51)
[2021-02-24] MEDS: Tuberculin,Purif.prot.deriv. 50 TU/ML Vial 0.1 ML ID (11:49)
[2021-02-24 14:01] VITALS: BP 131/55; PULSE 79; RESP 16; TEMP 36.3; O2SAT 96
[2021-02-24] MEDS: Tamsulosin HCl 0.4 MG Capsule PO (17:06)
[2021-02-24] MEDS: Mirtazapine 15 MG Tablet 7.5 MG PO (20:15)
[2021-02-24] MEDS: MELATONIN 3 MG TABLET PO (20:15)
[2021-02-24] MEDS: Atorvastatin Calcium 80 MG Tablet PO (20:16)
[2021-02-25] MEDS: Menthol/Lanolin/Calamine/Znox 113 GM Tube 1 APPLIC TOPICAL ×2 (05:58→17:04)
[2021-02-25] MEDS: Mirabegron 25 MG TAB.ER.24H PO (05:59)
[2021-02-25] MEDS: Enoxaparin 40 MG/0.4 ML Syringe SC (05:59)
[2021-02-25] MEDS: levETIRAcetam 1,000 MG Tablet 1000 MG PO ×2 (05:59→17:03)
[2021-02-25] MEDS: Escitalopram Oxalate 20 MG Tablet PO (05:59)
[2021-02-25] MEDS: Acetaminophen 500 MG Tablet 1000 MG PO ×3 (06:00→20:25)
[2021-02-25] MEDS: buPROPion (SR) 150 MG Tablet.SA PO ×2 (06:00→17:04)
[2021-02-25] MEDS: Pantoprazole Sodium 40 MG Tablet PO (06:00)
[2021-02-25 06:06] VITALS: BP 106/50; PULSE 74; RESP 16; TEMP 36.6; O2SAT 95
[2021-02-25] MEDS: Multivitamins,Therapeutic Tablet 1 TABLET PO (08:03)
[2021-02-25] MEDS: QUEtiapine 25 MG Tablet 12.5 MG PO ×2 (08:03→20:25)
[2021-02-25] MEDS: Gabapentin 100 MG Capsule PO ×2 (08:03→17:02)
[2021-02-25] MEDS: Iron Polysaccharide Complex 150 MG CAPSULE PO ×2 (08:03→17:02)
[2021-02-25] MEDS: Aspirin 81 MG TAB.CHEW PO (08:03)
--- NOTE | 2021-02-25 09:57 | PCM.PN.RX ---
Progress Note - Pharmacy Subjective: TCU Admission Objective: Allergies sulfamethoxazole [From Bactrim] Allergy (Severe, Verified 01/21/21 11:19) Other SEIZUERE, LOSS OF MOVEMENT IN LEGS trimethoprim [From Bactrim] Allergy (Severe, Verified 01/21/21 11:19) Other SEIZURE LOSS OF MOVEMENT IN LEGS indomethacin Allergy (Verified 01/21/21 11:19) NEEDS FOLLOW-UP pneumococcal vaccine Allergy (Verified 01/21/21 11:19) NEEDS FOLLOW-UP morphine Adverse Reaction (Severe, Verified 01/21/21 11:19) Nausea Current Medications Generic Name Dose Route Start Last Admin Trade Name Freq PRN Reason Stop Dose Admin Acetaminophen 1,000 mg 02/23/21 22:00 02/25/21 06:00 Acetaminophen 500 Mg Tablet PO 1,000 mg Q8 [facility] Administration Acetaminophen 1,000 mg 02/23/21 19:37 Acetaminophen 500 Mg Tablet PO Q6H PRN PRN Pain Score 1-3/10 Aspirin 81 mg 02/24/21 08:00 02/25/21 08:03 Aspirin 81 Mg [facility]w [facility] Atorvastatin Calcium 80 mg 02/23/21 22:00 02/24/21 20:16 Atorvastatin Calcium 80 Mg Tablet PO 80 mg QHS MONSERRAT Administration Bisacodyl 10 mg 02/23/21 19:37 Bisacodyl 10 Mg Suppository RC .PRN X 1 PRN Constipation Bupropion HCl 150 mg 02/23/21 20:00 02/25/21 06:00 Bupropion (Sr) 150 Mg Tablet.Sa PO 150 mg BID [facility] Administration Calamine/Phenol 1 applic 02/23/21 20:00 02/25/21 05:58 Menthol/Lanolin/Calamine/Znox 113 Gm Tube TOPICAL 1 u BID [facility] Administration Protocol Enoxaparin Sodium 40 mg 02/24/21 06:00 02/25/21 05:59 Enoxaparin 40 Mg/0.4 Ml Syringe SC 40 mg DAILY@0600 [facility] Administration Escitalopram Oxalate 20 mg 02/24/21 06:00 02/25/21 05:59 Escitalopram Oxalate 20 Mg Tablet PO 20 mg DAILY [facility] Administration Gabapentin 100 mg 02/24/21 08:00 02/25/21 08:03 Gabapentin 100 Mg Capsule PO 100 mg BIDCM [facility] Administration Levetiracetam 1,000 mg 02/23/21 19:45 02/25/21 05:59 Levetiracetam 1,000 Mg Tablet PO 1,000 mg BID [facility] Administration Magnesium Hydroxide 30 ml 02/23/21 19:37 Magnesium Hydroxide 30 Ml Udc PO .PRN X 1 PRN Constipation Meclizine HCl 25 mg 02/23/21 19:37 Meclizine Hcl 25 Mg Tablet PO Q8H PRN Dizziness Melatonin 3 mg 02/23/21 22:00 02/24/21 20:15 Melatonin 3 Mg Tablet PO 3 mg QHS [facility] Administration Mirabegron 25 mg 02/24/21 06:00 02/25/21 05:59 Mirabegron 25 Mg Tab.Er.24h PO 25 mg DAILY [facility] Administration Mirtazapine 7.5 mg 02/23/21 22:00 02/24/21 20:15 Mirtazapine 15 Mg Tablet PO 7.5 mg QHS [facility] Administration Multivitamins 1 tablet 02/24/21 08:00 02/25/21 08:03 Multivitamins,Therapeutic Tablet PO 1 tablet BREAKFAST [facility] Administration Oxycodone HCl 5 mg 02/23/21 19:37 Oxycodone 5 Mg Tablet PO Q6H PRN PRN Pain 1-10 Pantoprazole Sodium 40 mg 02/24/21 06:00 02/25/21 06:00 Pantoprazole Sodium 40 Mg Tablet PO 40 mg DAILY [facility] Administration Polysaccharide Iron Complex 150 mg 02/24/21 08:00 02/25/21 08:03 Iron Polysaccharide Complex 150 Mg Capsule PO 150 mg BIDCM [facility] Administration Quetiapine Fumarate 12.5 mg 02/24/21 08:00 02/25/21 08:03 Quetiapine 25 Mg Tablet PO 12.5 mg 08,1999 [facility] Administration Senna/Docusate Sodium 2 tablet 02/24/21 06:00 02/25/21 06:00 Senna/Docusate Sodium 1 Tablet PO Not Given BID [facility] Sodium Biphosphate/Sodium Phosphate 1 bottle 02/23/21 18:59 Fleet Enema RC X1 PRN Constipation Tamsulosin HCl 0.4 mg 02/24/21 17:30 02/24/21 17:06 Tamsulosin Hcl 0.4 Mg Capsule PO 0.4 mg DAILY@1730 [facility] Administration Tuberculin PPD 0.1 ml 03/03/21 10:00 Tuberculin,Purif.Prot.Deriv. 50 Tu/Ml Vial ID 03/03/21 10:01 X1 ONE Problem List (Last Reviewed 02/23/21 @ 20:[address] Jovanni Steven MD) Overactive bladder (Acute) Gastroesophageal reflux disease (Acute) Dizziness (Acute) Urinary retention (Acute) Essential tremor (Acute) Seizure disorder (Acute) Subdural hematoma (Acute) Anxiety (Acute) Depression (Acute) Vascular dementia (Acute) Myelodysplastic syndrome (Acute) Left hemiparesis (Acute) Meningioma (Acute) Hyperlipidemia (Acute) Hypertension (Chronic) Chronic deep vein thrombosis (DVT) (Chronic) Multiple myeloma (Acute) Closed left humeral fracture (Acute) Stroke (Acute) Debility (Acute) Vital Signs Temp Pulse Resp BP Pulse Ox 97.9 F 74 16 106/50 L 95 02/25/21 06:06 02/25/21 06:06 02/25/21 06:06 02/25/21 06:06 02/25/21 06:06 Oxygen Delivery Method Room Air Weight: 65.363 kg Body Mass Index (BMI) 25.4 Sodium 140 mmol/L (136-145) 02/24/21 05:10 Potassium 4.3 mmol/L (3.5-5.1) 02/24/21 05:10 Chloride 108 mmol/L (98-107) H 02/24/21 05:10 Carbon Dioxide 28.0 mmol/L (21.0-32.0) 02/24/21 05:10 Anion Gap 4 (5-15) L 02/24/21 05:10 BUN 29 mg/dL (7-18) H 02/24/21 05:10 Creatinine 1.06 mg/dL (0.55-1.02) H 02/24/21 05:10 Est GFR (MDRD) Af Amer 65 mL/min (>60) 02/24/21 05:10 Est GFR (MDRD) Non-Af 53 mL/min (>60) L 02/24/21 05:10 BUN/Creatinine Ratio 27.4 RATIO (10-20) H 02/24/21 05:10 Glucose 89 mg/dL (74-106) 02/24/21 05:10 Assessment/Plan: 1. Pain: acetaminophen 1000mg PO Q8H, acetaminophen 1000mg PO Q6H PRN pain 1-3, and oxycodone 5mg PO Q6H PRN pain 1-10. Please continue to monitor for increased pain and PRN usage. 2. DVT prophylaxis: enoxaparin 40mg SC daily. Please continue to monitor hemoglobin (last 11.5g/dL), platelets (last 176,000), S/S of bleeding and renal function. 3. Stroke: aspirin 81mg PO DAILYCM. Please continue to monitor for S/S of bleeding and hemoglobin. 4. Hyperlipidemia: atorvastatin 80mg PO QHS. Please consider ordering a lipid panel. Last panel from 12/14/19. Thanks. Please continue to monitor for muscle pain. 5. Neuropathic pain: gabapentin 100mg PO BIDCM. Please continue to monitor for confusion and renal function. 6. Iron deficiency anemia: Ferrex 150mg PO BIDCM. Please continue to monitor hemoglobin and for dark stools. 7. Seizure disorder: levetiracetam 1000mg PO BID. Please continue to monitor for seizures and renal function. 8. Dizziness: meclizine 25mg Q8H PRN dizziness. Please continue to monitor for dizziness, PRN usage, dry mouth, urinary retention and constipation. 9. Overactive bladder/urinary retention: mirabegron 25mg PO daily and tamsulosin 0.4mg PO daily @1730. Please continue to monitor BP (last 106/50) and anticholinergic side effects. 10. GERD: pantoprazole 40mg PO daily. Please continue to monitor for S/S of GERD and diarrhea. 11. Nutrition: multivitamin 1T PO daily. Please continue to monitor. Psychotropic Medications: 1. Depression/appetite loss/melatonin: bupropion SR 150mg PO BID, escitalopram 20mg PO daily, mirtazapine 7.5mg PO QHS, and melatonin 3mg PO QHS. Please see physician note regarding GDR. 2. Behavioral disorder secondary vascular dementia: quetiapine 12.5mg PO BID. Please see physician note regarding GDR. Unnecessary Medications: None Bowel Regimen: senna/docusate 2T PO BID, MOM 30mL PO x1 PRN constipation, Fleet enema RC x1 PRN constipation and bisacodyl 10mg RC x1 PRN constipation. Please continue to monitor for constipation and PRN usage. Date of Note:: 02/25/21
--- NOTE | 2021-02-25 14:25 | CASEMGMT ---
Social Work See attached for completed social work assessment. Unable to complete MOLST form with patient as patient is confused and oriented only to self. Will continue to follow. Radha Avitia MSW, DERRICKS
[2021-02-25 15:06] VITALS: BP 112/75; PULSE 86; RESP 16; TEMP 36.3; O2SAT 96
--- NOTE | 2021-02-25 15:31 | CHAPLAIN ---
Type of Pastoral Visit ___ Initial Visit _x__ Follow-up Visit ___ On-call Visit ___ General Patient Visit ___ Spiritual Assessment ___ Family Conference ___ Bereavement ___ Rapid Response ___ Code Blue ___ Other (describe below) Pastoral Care Referral From _x__ Patient ___ Family ___ Nurse ___ Physician ___ Public Defender ___ Training And Development Rep ___ Other (describe below) Sacrament/Intervention _x__ Active listening ___ Anointing ___ Yarsani ___ Bereavement ___ Communion ___ Orly exploration ___ _x__ Life review _x__ Prayer ___ Reconciliation ___ Sacrament of Sick _x__ Supportive presence ___ Wedding ___ Other (describe below) Pastoral Comments continuing to see patient for support and company; 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
[2021-02-25] MEDS: Tamsulosin HCl 0.4 MG Capsule PO (17:03)
[2021-02-25] MEDS: Mirtazapine 15 MG Tablet 7.5 MG PO (20:26)
[2021-02-25] MEDS: Atorvastatin Calcium 80 MG Tablet PO (20:27)
[2021-02-25] MEDS: MELATONIN 3 MG TABLET PO (20:27)
[2021-02-26] MEDS: Pantoprazole Sodium 40 MG Tablet PO (05:34)
[2021-02-26] MEDS: levETIRAcetam 1,000 MG Tablet 1000 MG PO ×2 (05:34→18:10)
[2021-02-26] MEDS: Escitalopram Oxalate 20 MG Tablet PO (05:34)
[2021-02-26] MEDS: buPROPion (SR) 150 MG Tablet.SA PO ×2 (05:34→18:11)
[2021-02-26] MEDS: Enoxaparin 40 MG/0.4 ML Syringe SC (05:34)
[2021-02-26] MEDS: Mirabegron 25 MG TAB.ER.24H PO (05:34)
[2021-02-26] MEDS: Senna/Docusate Sodium 1 Tablet 2 TABLET PO ×2 (05:35→18:11)
[2021-02-26] MEDS: Acetaminophen 500 MG Tablet 1000 MG PO ×3 (05:35→20:34)
[2021-02-26] MEDS: Menthol/Lanolin/Calamine/Znox 113 GM Tube 1 APPLIC TOPICAL ×2 (05:42→18:11)
[2021-02-26 05:43] VITALS: BP 139/57; PULSE 83; RESP 16; TEMP 36.4; O2SAT 96
[2021-02-26] MEDS: Gabapentin 100 MG Capsule PO ×2 (07:57→18:11)
[2021-02-26] MEDS: Multivitamins,Therapeutic Tablet 1 TABLET PO (07:57)
[2021-02-26] MEDS: Iron Polysaccharide Complex 150 MG CAPSULE PO ×2 (07:57→18:11)
[2021-02-26] MEDS: Aspirin 81 MG TAB.CHEW PO (07:57)
[2021-02-26] MEDS: QUEtiapine 25 MG Tablet 12.5 MG PO ×2 (07:57→20:35)
--- NOTE | 2021-02-26 08:03 | PT ---
Spoke with pt's on 02/25/21 at length about pt's current levels and pt needing assistance with all mobility and bathing/dressing. Pt's , Nils, asking why pt was not walking as well and why pt was unsteady. Pt is ambulating with HW and pt is unsteady with gait as she is only allowed to use RUE and is non weight bearing on LUE. Pt continues to attempt to use LUE and needs frequent cueing to not use LUE. Pt also needs single step cueing to complete tasks given and needs assistance at all time. Nils stated pt has changes in mood and often gets angry with him. Spoke with Nils about pt having had multiple strokes in the past and how this can affect pt's memory and cognition. Nils in agreeement. Nils stated he and pt are planning to head to [place] on 03/15. Recommended that he and pt NOT go to [place] as this would not be safe and pt is needing a lot of assistance and care at this time. Spoke with pt's about possible respite stay at another facility, as Nils states he is planning to take pt home. Nils stated he would speak with SW about possible respite stay and look into this more. referred to SW.
--- NOTE | 2021-02-26 09:20 | CASEMGMT ---
Social Work Plan of care meeting held. Resident present. Resident spouse present via speaker phone. Team setting projected discharge date for 03/08/2021. Resident spouse plans for resident to discharge to home with spouse. Resident to continue with further care and treatment on the Transitional Care Unit until time of discharge. Will continue to follow. Radha AVILES, DERRICKS
--- NOTE | 2021-02-26 12:35 | NURSING ---
Pt sitting in chair and Knocked off her lunch tray and hit right ortiz which caused a abrasion. Bleeding stopped and 2x2 applied.
[2021-02-26 15:18] VITALS: BP 116/48; PULSE 75; RESP 14; TEMP 35.9; O2SAT 95
[2021-02-26] MEDS: Tamsulosin HCl 0.4 MG Capsule PO (18:10)
[2021-02-26] MEDS: Mirtazapine 15 MG Tablet 7.5 MG PO (20:34)
[2021-02-26] MEDS: MELATONIN 3 MG TABLET PO (20:35)
[2021-02-26] MEDS: Atorvastatin Calcium 80 MG Tablet PO (20:35)
[2021-02-27 05:42] VITALS: BP 117/39; PULSE 79; RESP 18; TEMP 36.5; O2SAT 96
[2021-02-27] MEDS: levETIRAcetam 1,000 MG Tablet 1000 MG PO ×2 (05:44→17:25)
[2021-02-27] MEDS: Enoxaparin 40 MG/0.4 ML Syringe SC (05:44)
[2021-02-27] MEDS: Escitalopram Oxalate 20 MG Tablet PO (05:44)
[2021-02-27] MEDS: Mirabegron 25 MG TAB.ER.24H PO (05:44)
[2021-02-27] MEDS: Senna/Docusate Sodium 1 Tablet 2 TABLET PO ×2 (05:44→17:25)
[2021-02-27] MEDS: buPROPion (SR) 150 MG Tablet.SA PO ×2 (05:44→17:24)
[2021-02-27] MEDS: Acetaminophen 500 MG Tablet 1000 MG PO ×3 (05:44→20:47)
[2021-02-27] MEDS: Pantoprazole Sodium 40 MG Tablet PO (05:44)
[2021-02-27] MEDS: Menthol/Lanolin/Calamine/Znox 113 GM Tube 1 APPLIC TOPICAL ×2 (05:45→17:25)
[2021-02-27] MEDS: Gabapentin 100 MG Capsule PO ×2 (08:21→17:25)
[2021-02-27] MEDS: Iron Polysaccharide Complex 150 MG CAPSULE PO ×2 (08:21→15:30)
[2021-02-27] MEDS: Aspirin 81 MG TAB.CHEW PO (08:21)
[2021-02-27] MEDS: Multivitamins,Therapeutic Tablet 1 TABLET PO (08:21)
[2021-02-27] MEDS: QUEtiapine 25 MG Tablet 12.5 MG PO ×2 (08:21→20:47)
--- NOTE | 2021-02-27 13:20 | MDS.RN ---
Completed pain interview for HEATHER 03/02/21
--- NOTE | 2021-02-27 14:07 | NURSING ---
Pt refused straight cath to collect urine for straight cath. Pt stated I don't have any burning or frequency and wonder why we ordered a urinalysis. Stated that her was concerned and noticed her urine had a odor. Pt still refused and said he doesn't know what he is talking about. Took pt to bathroom noted urine to be yellow clear and with normal odor. Will update Dr. Steven.
--- NOTE | 2021-02-27 14:10 | NURSING ---
Pt refused straight cath to collect urine for urinalysis. Pt stated I don't have any burning or frequency and was wondering why we ordered a urinalysis. Stated that her was concerned and noticed her urine to have a odor. Pt still refused and said he doesn't know what he is talking about. Took pt to bathroom noted urine to be yellow clear and with normal odor. Will update Dr. Steven.
[2021-02-27 14:27] VITALS: BP 127/51; PULSE 82; RESP 16; TEMP 36.3; O2SAT 97
--- NOTE | 2021-02-27 15:03 | NURSING ---
Pt's came into visit pt and pt became very upset yelling at him stating that he does not care and he has no business telling the Doctor about her. She also said she does not ever want to see her him again. Went into pts room to see if I could get her to call down. Asked the pt's to leave as it was just agitating her even more pt's agreeable. After left 1:1 given to patient and this nurse was able to get her to slightly calm down. Dr. Steven updated and new order for Ativan 0.5mg x1 dose and to clean catch urine.
--- NOTE | 2021-02-27 15:10 | CASEMGMT ---
Brief Interview for Mental Status(8) and PHQ-9(0) completed on this date. HERIBERTO Frias
--- NOTE | 2021-02-27 15:10 | CASEMGMT ---
Social Work Pt's came in to visit, as per RN pt became upset w/. SW spoke w/ outside of room. He had told staff concern for pt having a UTI, but pt is not wanting to be tested for it. Pt became upset w/pt, SW offered support to in hallway. He is not certain if he should visit tomorrow, SW and RN advised for him to call in before visiting and we can speak w/pt prior to his visiting. SW then spoke w/pt in room. Initially she stated to SW she does not want to speak w/SW, but then did speak w/SW. Pt tearful, she informed SW she has cancer and other issues, and she is upset with her . She states he talked to the doctor about getting tested for a UTI and she is upset her spoke to the doctor about her. Pt states she does not have a UTI, as she takes care of herself and knows when she has a UTI. SW asked what symptoms she gets or how she knows, and pt was not able to state what the symptoms are. SW offered support to pt. SW attempted to gently state to pt perhaps is concerned about her well being. Pt states no, and again expressed being upset with him, does not want him to come back to visit. Pt is not able to explain why her asking to have her tested for a UTI is so upsetting, but she does state she will not agree to being tested. SW will continue to follow, offer support to pt and as needed. HERIBERTO Frias
[2021-02-27] MEDS: Tamsulosin HCl 0.4 MG Capsule PO (15:30)
[2021-02-27] MEDS: LORazepam 0.5 MG Tablet PO (15:31)
[2021-02-27 18:28] LABS: Mucous, Urine 0 SEEN /hpf (<or=2+)
[2021-02-27 18:49] LABS: Color, Urine Yellow (Yellow); Glucose, Dipstick Normal (Normal); Ketone-Dipstick Negative (Negative); Leukocyte Esterase-Dipstick 500 /ul (Negative); Nitrite-Dipstick Positive (Negative); Occult Blood-Urine 50 /ul (Negative); Protein-Dipstick 15 mg/dl (Negative); Specific Gravity, Urine 1.015 (1.002-1.030); Urine Bilirubin Dipstick Negative (Negative); Urine Clarity Sl. Cloudy (Clear); Urine Urobilinogen Normal (Normal)
[2021-02-27 19:15] LABS: Bacteria 2+ /hpf (None Seen); Red Blood Cells-Urine 0-5 SEEN /hpf (0-5); Squamous Epithelial Cells - UA 0-5 SEEN /hpf (5-10); White Blood Cells 10-25 SEEN /hpf (0-5)
[2021-02-27] MEDS: Mirtazapine 15 MG Tablet 7.5 MG PO (20:47)
[2021-02-27] MEDS: Atorvastatin Calcium 80 MG Tablet PO (20:47)
[2021-02-27] MEDS: MELATONIN 3 MG TABLET PO (20:47)
--- NOTE | 2021-02-27 22:25 | NURSING ---
Spoke w/ Dr. Steven via phone to update on UA results. New order received and read back for Cipro 500 mg po x1 now and Cipro 500 mg po BID x7 days to start tomorrow am.
[2021-02-27] MEDS: Ciprofloxacin 500 MG Tablet PO (22:52)
[2021-02-28 05:00] VITALS: BP 131/47; PULSE 82; RESP 16; TEMP 36.2
[2021-02-28] MEDS: Pantoprazole Sodium 40 MG Tablet PO (06:31)
[2021-02-28] MEDS: Menthol/Lanolin/Calamine/Znox 113 GM Tube 1 APPLIC TOPICAL ×2 (06:31→17:36)
[2021-02-28] MEDS: buPROPion (SR) 150 MG Tablet.SA PO ×2 (06:32→17:36)
[2021-02-28] MEDS: Senna/Docusate Sodium 1 Tablet 2 TABLET PO ×2 (06:32→17:36)
[2021-02-28] MEDS: Acetaminophen 500 MG Tablet 1000 MG PO ×3 (06:32→23:05)
[2021-02-28] MEDS: Ciprofloxacin 500 MG Tablet PO ×2 (06:33→17:36)
[2021-02-28] MEDS: Escitalopram Oxalate 20 MG Tablet PO (06:33)
[2021-02-28] MEDS: levETIRAcetam 1,000 MG Tablet 1000 MG PO ×2 (06:33→17:36)
[2021-02-28] MEDS: Mirabegron 25 MG TAB.ER.24H PO (06:33)
[2021-02-28] MEDS: Enoxaparin 40 MG/0.4 ML Syringe SC (06:34)
[2021-02-28] MEDS: Aspirin 81 MG TAB.CHEW PO (08:35)
[2021-02-28] MEDS: Multivitamins,Therapeutic Tablet 1 TABLET PO (08:35)
[2021-02-28] MEDS: QUEtiapine 25 MG Tablet 12.5 MG PO ×2 (08:35→20:26)
[2021-02-28] MEDS: Gabapentin 100 MG Capsule PO ×2 (08:35→17:36)
[2021-02-28] MEDS: Iron Polysaccharide Complex 150 MG CAPSULE PO ×2 (08:35→17:36)
--- NOTE | 2021-02-28 14:11 | CASEMGMT ---
Social Work SW did check in w/pt to ask how she is today, she states is doing fine today. Pt's daughter was in visiting earlier, SW asked about the visit, pt thought it was yesterday, SW reminded her it was this morning. Pt denies any concerns at this moment, SW remains available for support to pt and family as needed. HERIBERTO Frias
--- NOTE | 2021-02-28 14:41 | NURSING ---
pt resting in recliner chair watching tv, pleasant and cooperative. call light in reach. chair alarm in place. denies needs. no behaviors today.,
[2021-02-28 16:00] VITALS: BP 122/54; PULSE 91; RESP 18; TEMP 36.3; O2SAT 94
[2021-02-28] MEDS: Tamsulosin HCl 0.4 MG Capsule PO (17:36)
[2021-02-28] MEDS: Atorvastatin Calcium 80 MG Tablet PO (20:23)
[2021-02-28] MEDS: Mirtazapine 15 MG Tablet 7.5 MG PO (20:24)
[2021-02-28] MEDS: MELATONIN 3 MG TABLET PO (20:24)
[2021-03-01 06:53] VITALS: BP 116/49; PULSE 80; RESP 14; TEMP 35.7; O2SAT 95
[2021-03-01] MEDS: Escitalopram Oxalate 20 MG Tablet PO (06:56)
[2021-03-01] MEDS: Ciprofloxacin 500 MG Tablet PO ×2 (06:56→17:19)
[2021-03-01] MEDS: levETIRAcetam 1,000 MG Tablet 1000 MG PO ×2 (06:56→17:19)
[2021-03-01] MEDS: Pantoprazole Sodium 40 MG Tablet PO (06:56)
[2021-03-01] MEDS: Mirabegron 25 MG TAB.ER.24H PO (06:56)
[2021-03-01] MEDS: buPROPion (SR) 150 MG Tablet.SA PO ×2 (06:56→17:19)
[2021-03-01] MEDS: Enoxaparin 40 MG/0.4 ML Syringe SC (06:57)
[2021-03-01] MEDS: Acetaminophen 500 MG Tablet 1000 MG PO ×3 (06:57→20:21)
[2021-03-01] MEDS: Senna/Docusate Sodium 1 Tablet 2 TABLET PO (06:57)
[2021-03-01] MEDS: Menthol/Lanolin/Calamine/Znox 113 GM Tube 1 APPLIC TOPICAL ×2 (07:01→17:20)
[2021-03-01] MEDS: Aspirin 81 MG TAB.CHEW PO (08:16)
[2021-03-01] MEDS: Multivitamins,Therapeutic Tablet 1 TABLET PO (08:16)
[2021-03-01] MEDS: Gabapentin 100 MG Capsule PO ×2 (08:16→17:19)
[2021-03-01] MEDS: Iron Polysaccharide Complex 150 MG CAPSULE PO ×2 (08:16→17:19)
[2021-03-01] MEDS: QUEtiapine 25 MG Tablet 12.5 MG PO ×2 (08:16→20:22)
[2021-03-01 10:00] VITALS: PULSE 82; RESP 16; O2SAT 96
[2021-03-01 15:59] VITALS: BP 119/61; PULSE 83; RESP 16; TEMP 35.9; O2SAT 94
[2021-03-01] MEDS: Tamsulosin HCl 0.4 MG Capsule PO (17:19)
[2021-03-01] MEDS: oxyCODONE 5 MG Tablet PO (18:51)
--- NOTE | 2021-03-01 19:15 | NURSING ---
Spouse approaches nurses station and reports he assisted pt to the toilet and back to chair. Chair alarm to be checked if activated per staff.
[2021-03-01] MEDS: MELATONIN 3 MG TABLET PO (20:22)
[2021-03-01] MEDS: Mirtazapine 15 MG Tablet 7.5 MG PO (20:23)
[2021-03-01] MEDS: Atorvastatin Calcium 80 MG Tablet PO (20:24)
[2021-03-02] MEDS: Menthol/Lanolin/Calamine/Znox 113 GM Tube 1 APPLIC TOPICAL ×2 (06:41→16:36)
[2021-03-02] MEDS: Senna/Docusate Sodium 1 Tablet 2 TABLET PO (06:42)
[2021-03-02] MEDS: levETIRAcetam 1,000 MG Tablet 1000 MG PO ×2 (06:42→16:36)
[2021-03-02] MEDS: Acetaminophen 500 MG Tablet 1000 MG PO ×3 (06:42→20:14)
[2021-03-02] MEDS: Ciprofloxacin 500 MG Tablet PO ×2 (06:42→16:36)
[2021-03-02] MEDS: Pantoprazole Sodium 40 MG Tablet PO (06:43)
[2021-03-02] MEDS: Escitalopram Oxalate 20 MG Tablet PO (06:43)
[2021-03-02] MEDS: buPROPion (SR) 150 MG Tablet.SA PO ×2 (06:43→16:36)
[2021-03-02] MEDS: Mirabegron 25 MG TAB.ER.24H PO (06:43)
[2021-03-02] MEDS: Enoxaparin 40 MG/0.4 ML Syringe SC (06:43)
[2021-03-02 06:47] VITALS: BP 121/46; PULSE 80; RESP 16; TEMP 36.3
[2021-03-02] MEDS: Gabapentin 100 MG Capsule PO ×2 (07:43→16:36)
[2021-03-02] MEDS: QUEtiapine 25 MG Tablet 12.5 MG PO ×2 (07:43→20:13)
[2021-03-02] MEDS: Aspirin 81 MG TAB.CHEW PO (07:44)
[2021-03-02] MEDS: Multivitamins,Therapeutic Tablet 1 TABLET PO (07:44)
[2021-03-02] MEDS: Iron Polysaccharide Complex 150 MG CAPSULE PO ×2 (07:44→16:36)
[2021-03-02 14:24] VITALS: BP 123/53; PULSE 76; RESP 16; TEMP 36.1; O2SAT 95
--- NOTE | 2021-03-02 14:32 | NURSING ---
here and pt assisted from recliner chair to WC to take a ride outside with .
[2021-03-02] MEDS: Tamsulosin HCl 0.4 MG Capsule PO (16:36)
[2021-03-02] MEDS: Atorvastatin Calcium 80 MG Tablet PO (20:12)
[2021-03-02] MEDS: MELATONIN 3 MG TABLET PO (20:12)
[2021-03-02] MEDS: Mirtazapine 15 MG Tablet 7.5 MG PO (20:13)
[2021-03-02 21:59] VITALS: PULSE 87; RESP 14
[2021-03-03] MEDS: Menthol/Lanolin/Calamine/Znox 113 GM Tube 1 APPLIC TOPICAL ×2 (04:31→17:18)
[2021-03-03] MEDS: levETIRAcetam 1,000 MG Tablet 1000 MG PO ×2 (04:33→17:18)
[2021-03-03] MEDS: Ciprofloxacin 500 MG Tablet PO ×2 (04:33→17:18)
[2021-03-03] MEDS: Enoxaparin 40 MG/0.4 ML Syringe SC (04:33)
[2021-03-03] MEDS: Escitalopram Oxalate 20 MG Tablet PO (04:33)
[2021-03-03] MEDS: Senna/Docusate Sodium 1 Tablet 2 TABLET PO ×2 (04:34→17:17)
[2021-03-03] MEDS: Pantoprazole Sodium 40 MG Tablet PO (04:34)
[2021-03-03] MEDS: Acetaminophen 500 MG Tablet 1000 MG PO ×3 (04:34→19:58)
[2021-03-03] MEDS: buPROPion (SR) 150 MG Tablet.SA PO ×2 (04:35→17:18)
[2021-03-03] MEDS: Mirabegron 25 MG TAB.ER.24H PO (04:39)
[2021-03-03 04:52] LABS: Absolute Lymphocyte Count 1.35 X10^3/uL (0.83-4.51); Absolute Neutrophil Count 4.2 X10^3/uL (2.0-7.7); Basophil# 0.06 X10^3/uL; Basophil% 0.7 % (0-1); Eosinophil# 0.35 X10^3/uL; Eosinophils% 3.9 % (0-5); Hematocrit 32.3 % (37-47); Hemoglobin 10.1 g/dL (12.0-15.0); Lymphocyte # 1.35 X10^3/ul (0.83-4.51); Lymphocyte % 15.1 % (19-41); Mean Corp Hgb Conc 31.3 g/dL (32-36); Mean Corpuscular Hgb 32.1 pg (27.0-32.0); Mean Corpuscular Volume 102.5 fL (81-99); Mean Platelet Vol. 11.7 fl (6.2-12.0); Monocyte# 2.76 X10^3/uL; Monocyte% 30.8 % (0-10); NRBC Flagged by Analyzer 0 % (0-5); Neutrophil # 4.19 X10^3/uL (2.7-7.7); Neutrophil % 46.8 % (47-70); POSITIVE DIFFERENTIAL YES; Platelet Count 214 K/mm3 (150-450); RBC Distribution Width CV 13.9 % (11.6-14.6); RBC Distribution Width SD 52.5 fl (35.1-43.9); Red Blood Count 3.15 M/mm3 (4.2-5.4)
[2021-03-03 04:53] LABS: Differential Indicated SCAN CRITERIA MET
[2021-03-03 05:00] VITALS: BP 121/43; PULSE 80; RESP 12; TEMP 36.6; O2SAT 95
[2021-03-03 05:07] LABS: Anion Gap 4 (5-15); BUN 25 mg/dL (7-18); BUN/Creat Ratio 25.2 RATIO (10-20); Calcium,Total 7.7 mg/dL (8.5-10.1); Chloride 112 mmol/L (98-107); Creatinine, Serum 0.99 mg/dL (0.55-1.02); EST Glomerular Filtration Rate 58 mL/min (>60); Est Glom Filt Rate - Afr Amer 70 mL/min (>60); Estimated Creatinine Clearance 39.99 ml/min; Glucose 92 mg/dL (74-106); Potassium 4.3 mmol/L (3.5-5.1); Sodium Level 142 mmol/L (136-145)
[2021-03-03] MEDS: Aspirin 81 MG TAB.CHEW PO (08:46)
[2021-03-03] MEDS: QUEtiapine 25 MG Tablet 12.5 MG PO ×2 (08:46→19:57)
[2021-03-03] MEDS: Multivitamins,Therapeutic Tablet 1 TABLET PO (08:46)
[2021-03-03] MEDS: Gabapentin 100 MG Capsule PO ×2 (08:46→17:18)
[2021-03-03] MEDS: Iron Polysaccharide Complex 150 MG CAPSULE PO ×2 (08:46→17:18)
[2021-03-03 10:00] VITALS: PULSE 90; RESP 18; O2SAT 99
[2021-03-03] MEDS: Tuberculin,Purif.prot.deriv. 50 TU/ML Vial 0.1 ML ID (11:49)
[2021-03-03 14:24] VITALS: BP 126/59; PULSE 81; RESP 16; TEMP 36.7; O2SAT 96
[2021-03-03] MEDS: Tamsulosin HCl 0.4 MG Capsule PO (17:18)
[2021-03-03] MEDS: Atorvastatin Calcium 80 MG Tablet PO (19:57)
[2021-03-03] MEDS: MELATONIN 3 MG TABLET PO (19:58)
[2021-03-03] MEDS: Mirtazapine 15 MG Tablet 7.5 MG PO (19:58)
[2021-03-04 05:00] VITALS: BP 125/59; PULSE 86; RESP 16; TEMP 36.9; O2SAT 96
[2021-03-04] MEDS: Pantoprazole Sodium 40 MG Tablet PO (05:56)
[2021-03-04] MEDS: buPROPion (SR) 150 MG Tablet.SA PO ×2 (05:56→17:34)
[2021-03-04] MEDS: levETIRAcetam 1,000 MG Tablet 1000 MG PO ×2 (05:56→17:34)
[2021-03-04] MEDS: Enoxaparin 40 MG/0.4 ML Syringe SC (05:56)
[2021-03-04] MEDS: Senna/Docusate Sodium 1 Tablet 2 TABLET PO (05:56)
[2021-03-04] MEDS: Acetaminophen 500 MG Tablet 1000 MG PO ×3 (05:56→20:28)
[2021-03-04] MEDS: Ciprofloxacin 500 MG Tablet PO ×2 (05:56→17:34)
[2021-03-04] MEDS: Mirabegron 25 MG TAB.ER.24H PO (05:56)
[2021-03-04] MEDS: Escitalopram Oxalate 20 MG Tablet PO (05:56)
[2021-03-04] MEDS: Menthol/Lanolin/Calamine/Znox 113 GM Tube 1 APPLIC TOPICAL ×2 (05:57→17:35)
[2021-03-04] MEDS: QUEtiapine 25 MG Tablet 12.5 MG PO ×2 (08:42→20:27)
[2021-03-04] MEDS: Gabapentin 100 MG Capsule PO ×2 (08:42→17:35)
[2021-03-04] MEDS: Aspirin 81 MG TAB.CHEW PO (08:42)
[2021-03-04] MEDS: Multivitamins,Therapeutic Tablet 1 TABLET PO (08:42)
[2021-03-04] MEDS: Iron Polysaccharide Complex 150 MG CAPSULE PO ×2 (08:42→17:34)
--- NOTE | 2021-03-04 10:25 | NURSING ---
Called Dr. Gómez office to see if we can do blood draw here for 03/05/21 new orders entered CBC w/diff CMP [facility] SPEEP FLOYD.
--- NOTE | 2021-03-04 13:08 | NURSING ---
Addendum entered by Alta Beal 03/05/21 12:13: Called and talked and Dr. Starr's research development director wants x-rays done in office. Addendum entered by Alta Beal 03/05/21 11:51: Called and left a message with Dr. Starr's nurse regarding X-ray d/t not receiving a call from them on 03/04/21. Original Note: informed this nurse that Dr. Starr from orthopaedics at [facility] is requesting xrays be done on left arm and her office stated they will call TCU today and give orders.
[2021-03-04 13:48] VITALS: BP 118/58; PULSE 75; RESP 18; TEMP 36.2; O2SAT 98
--- NOTE | 2021-03-04 14:46 | MDS.RN ---
Information for the mds was obtained from review of the clinical record, interview of resident, staff, and direct observation of resident's care.
--- NOTE | 2021-03-04 16:24 | CASEMGMT ---
Social Work Telephone call to patient spouse, Jerod to set up time to meet to discuss discharge date/plan further. No answer. Voicemail left. Will continue to follow. Radha AVILES, HERIBERTO
[2021-03-04] MEDS: Tamsulosin HCl 0.4 MG Capsule PO (17:34)
[2021-03-04] MEDS: Mirtazapine 15 MG Tablet 7.5 MG PO (20:27)
[2021-03-04] MEDS: MELATONIN 3 MG TABLET PO (20:28)
[2021-03-04] MEDS: Atorvastatin Calcium 80 MG Tablet PO (20:28)
[2021-03-05] MEDS: Enoxaparin 40 MG/0.4 ML Syringe SC (05:27)
[2021-03-05] MEDS: Menthol/Lanolin/Calamine/Znox 113 GM Tube 1 APPLIC TOPICAL ×2 (05:27→17:27)
[2021-03-05 05:35] VITALS: BP 127/49; PULSE 84; RESP 14; TEMP 36.6; O2SAT 94
[2021-03-05] MEDS: buPROPion (SR) 150 MG Tablet.SA PO ×2 (05:36→17:25)
[2021-03-05] MEDS: Pantoprazole Sodium 40 MG Tablet PO (05:36)
[2021-03-05] MEDS: Acetaminophen 500 MG Tablet 1000 MG PO ×3 (05:36→20:28)
[2021-03-05] MEDS: Escitalopram Oxalate 20 MG Tablet PO (05:36)
[2021-03-05] MEDS: Senna/Docusate Sodium 1 Tablet 2 TABLET PO ×2 (05:36→17:25)
[2021-03-05] MEDS: Ciprofloxacin 500 MG Tablet PO ×2 (05:36→17:26)
[2021-03-05] MEDS: levETIRAcetam 1,000 MG Tablet 1000 MG PO ×2 (05:36→17:26)
[2021-03-05] MEDS: Mirabegron 25 MG TAB.ER.24H PO (05:36)
[2021-03-05 06:09] LABS: Absolute Lymphocyte Count 1.51 X10^3/uL (0.83-4.51); Absolute Neutrophil Count 5.1 X10^3/uL (2.0-7.7); Basophil# 0.07 X10^3/uL; Basophil% 0.7 % (0-1); Eosinophil# 0.35 X10^3/uL; Eosinophils% 3.5 % (0-5); Hematocrit 33.8 % (37-47); Hemoglobin 10.5 g/dL (12.0-15.0); Lymphocyte # 1.51 X10^3/ul (0.83-4.51); Lymphocyte % 15.1 % (19-41); Mean Corp Hgb Conc 31.1 g/dL (32-36); Mean Corpuscular Hgb 31.6 pg (27.0-32.0); Mean Corpuscular Volume 101.8 fL (81-99); Mean Platelet Vol. 11.7 fl (6.2-12.0); Monocyte# 2.64 X10^3/uL; Monocyte% 26.5 % (0-10); NRBC Flagged by Analyzer 0 % (0-5); Neutrophil # 5.11 X10^3/uL (2.7-7.7); Neutrophil % 51.3 % (47-70); POSITIVE DIFFERENTIAL YES; Platelet Count 227 K/mm3 (150-450); RBC Distribution Width CV 13.8 % (11.6-14.6); RBC Distribution Width SD 51.8 fl (35.1-43.9); Red Blood Count 3.32 M/mm3 (4.2-5.4)
[2021-03-05 06:12] LABS: Differential Indicated SCAN CRITERIA MET
[2021-03-05 06:42] LABS: ALB/GLOB Ratio 0.9 RATIO (0.9-2.4); AST(SGOT) 24 U/L (15-37); Alanine Aminotransfer ALT/SGPT 40 U/L (13-56); Albumin, Serum 2.9 g/dL (3.2-5.0); Alkaline Phosphatase 108 U/L (45-117); Anion Gap 7 (5-15); BUN 27 mg/dL (7-18); BUN/Creat Ratio 27.3 RATIO (10-20); Calcium,Total 8.4 mg/dL (8.5-10.1); Chloride 109 mmol/L (98-107); Creatinine, Serum 0.99 mg/dL (0.55-1.02); EST Glomerular Filtration Rate 58 mL/min (>60); Est Glom Filt Rate - Afr Amer 70 mL/min (>60); Estimated Creatinine Clearance 39.99 ml/min; Globulin 3.1 g/dL (2.2-4.2); Glucose 83 mg/dL (74-106); Potassium 4.5 mmol/L (3.5-5.1); Sodium Level 139 mmol/L (136-145)
[2021-03-05 06:55] LABS: Differential Comment SCANNED
[2021-03-05] MEDS: Iron Polysaccharide Complex 150 MG CAPSULE PO ×2 (08:45→17:26)
[2021-03-05] MEDS: Gabapentin 100 MG Capsule PO ×2 (08:45→17:26)
[2021-03-05] MEDS: QUEtiapine 25 MG Tablet 12.5 MG PO ×2 (08:45→20:26)
[2021-03-05] MEDS: Aspirin 81 MG TAB.CHEW PO (08:45)
[2021-03-05] MEDS: Multivitamins,Therapeutic Tablet 1 TABLET PO (08:45)
--- NOTE | 2021-03-05 12:23 | CASEMGMT ---
Addendum entered by Virginia Avitia 03/05/21 16:27: Telephone call from [facility] is able to accept patient. Original Note: Social Work Met with patient spouse, Olaf. This executive secretary social welfare communicating team recommendations for patient to transition to an extended care facility. Olaf voices understanding but plans for patient to return to home. Olaf and patient already aware of discharge date being set for 03/08/2021. Olaf plans to provide assistance to patient and has no concerns with patient returning to home. Olaf does voices that patient needs a ezio-walker at discharge. Olaf is agreeable to home health services for physical, occupational, and speech therapy as well as detention and a home health aide. Olaf requests for home health services to be set up through [facility] as patient has used this home health in the past. Olaf reports plan to provide transportation to home for patient at time of discharge. Olaf denies any further questions. Telephone call to [facility] Anjali MENDOZA. Referral made for physical, occupational, and speech therapy as well as a home health aide and detention. Order entered. Telephone call to [facility]. Marifer reports to not have any ezio-walkers in currently but will have one in by 03/08/2021. Order to be sent when obtained. Proposed discharge date: 03/08/2021 Disposition: Home with spouse and home health services. Radha AVILES, HERIBERTO
[2021-03-05 14:06] VITALS: BP 106/67; PULSE 82; RESP 16; TEMP 36.4; O2SAT 95
[2021-03-05] MEDS: Tamsulosin HCl 0.4 MG Capsule PO (17:26)
--- NOTE | 2021-03-05 17:47 | NURSING ---
Pt has only had a small bowel movement in the last few days. Pt refused Milk of Mag. Dr. Steven updated and new order for PO Ducolax ordered.
--- NOTE | 2021-03-05 20:25 | DS.PCM_ITS ---
Providers Date of Admission: 02/23/21 Primary Care Physician: Dr. Augusta Wilson DO Reason For Visit: CVA Diagnosis Discharge Diagnosis (1) Debility: Status: Acute Code(s): R53.81 - Other malaise (2) Stroke: Status: Acute Code(s): I63.9 - Cerebral infarction, unspecified (3) Closed left humeral fracture: Status: Acute Code(s): S42.302A - Unspecified fracture of shaft of humerus, left arm, initial encounter for closed fracture (4) Multiple myeloma: Status: Acute Code(s): C90.00 - Multiple myeloma not having achieved remission (5) Chronic deep vein thrombosis (DVT): Status: Chronic Code(s): I82.509 - Chronic embolism and thrombosis of unspecified deep veins of unspecified lower extremity (6) Hypertension: Status: Chronic Code(s): I10 - Essential (primary) hypertension (7) Hyperlipidemia: Status: Acute Code(s): E78.5 - Hyperlipidemia, unspecified (8) Meningioma: Status: Acute Code(s): D32.9 - Benign neoplasm of meninges, unspecified (9) Left hemiparesis: Status: Acute Code(s): G81.94 - Hemiplegia, unspecified affecting left nondominant side (10) Myelodysplastic syndrome: Status: Acute Code(s): D46.9 - Myelodysplastic syndrome, unspecified (11) Vascular dementia: Status: Acute Code(s): F01.50 - Vascular dementia without behavioral disturbance (12) Depression: Status: Acute Code(s): F32.9 - Major depressive disorder, single episode, unspecified (13) Anxiety: Status: Acute Code(s): F41.9 - Anxiety disorder, unspecified (14) Subdural hematoma: Status: Acute Code(s): S06.5X9A - Traumatic subdural hemorrhage with loss of consciousness of unspecifi ed duration, initial encounter (15) Seizure disorder: Status: Acute Code(s): G40.909 - Epilepsy, unspecified, not intractable, without status epilepticus (16) Essential tremor: Status: Acute Code(s): G25.0 - Essential tremor (17) Urinary retention: Status: Acute Code(s): R33.9 - Retention of urine, unspecified (18) Dizziness: Status: Acute Code(s): R42 - Dizziness and giddiness (19) Gastroesophageal reflux disease: Status: Acute Code(s): K21.9 - Gastro-esophageal reflux disease without esophagitis (20) Overactive bladder: Status: Acute Code(s): N32.81 - Overactive bladder Medications at Discharge Home Medications atorvastatin 80 mg PO QHS #30 tab 09/10/19 bupropion HCl 150 mg PO BID 09/26/19 tamsulosin 0.4 mg PO DAILY@1730 09/26/19 pantoprazole 40 mg PO DAILY 02/07/20 mirabegron 25 mg PO DAILY 04/17/20 multivitamin with minerals 1 ea PO DAILY 04/17/20 gabapentin 100 mg PO BIDCM 01/31/21 menthol-zinc oxide 1 applic TOPICAL BID 01/31/21 mirtazapine 7.5 mg PO QHS 01/31/21 polysaccharide iron complex 150 mg PO BIDCM 01/31/21 acetaminophen 1,000 mg PO Q8 02/23/21 aspirin 81 mg PO DAILYCM 02/23/21 levetiracetam 1,000 mg PO Q12H 02/23/21 melatonin 3 mg PO QHS 02/23/21 sennosides-docusate sodium [Stool Softener-Stimulant Laxat] 2 tab PO BID 02/23/21 escitalopram oxalate 20 mg PO DAILY 30 Days #30 tab 03/05/21 quetiapine 12.5 mg PO BID 30 Days #30 tab 03/05/21 Hospital Course Operations None Procedures None Summary of Care Provided Minutes Spent on Discharge: 35 Hospital Course: 75 year old female with below past medical history admitted to for stroke, left humerus fracture, transferred to TCU with debility, here for rehabilitation, strengthening, prior to discharge home with . Discharge home with 03/08/2021, [facility] PT/OT/ST/SN/RED LEADER. Physical Exam Const alert and oriented x3 General Appearance: cooperative HEENT normocephalic Eyes PERRL and EOMs intact bilaterally Neck supple, no JVD and no carotid bruits Resp normal respiratory effort, normal air movement and clear to auscultation bilaterally Cardio regular rate and regular rhythm GI normal to inspection, nondistended, normoactive bowel sounds, non-tender and non-distended Extremity normal capillary refill General Extremity: Negative for edema Skin no rashes or lesions noted General Skin Exam: no breakdown Psych affect normal Appearance: appropriate Weight / BMI Weight Weight: 66.224 kg Body Mass Index (BMI) 25.4 ABG / Lab / Microbiology Data Result Diagrams: 03/05/21 05:32 03/05/21 05:32 Laboratory: Laboratory Results - last 24 hr 03/05/21 03/05/21 05:32 05:32 WBC 10.0 RBC 3.32 L Hgb 10.5 L Hct 33.8 L MCV 101.8 H MCH 31.6 MCHC 31.1 L RDW Std Deviation 51.8 H RDW Coeff of [place] 13.8 Plt Count 227 MPV 11.7 Immature Gran % (Auto) 2.900 H Neut % (Auto) 51.3 Lymph % (Auto) 15.1 L [place] % (Auto) 26.5 H Eos % (Auto) 3.5 Baso % (Auto) 0.7 Absolute Neuts (auto) 5.1 Absolute Lymphs (auto) 1.51 Nucleated RBC % 0 Differential Comment SCANNED Sodium 139 Potassium 4.5 Chloride 109 H Carbon Dioxide 23.0 Anion Gap 7 BUN 27 H Creatinine 0.99 Estim Creat Clear Calc 39.99 Est GFR (MDRD) Af Amer 70 Est GFR (MDRD) Non-Af 58 L BUN/Creatinine Ratio 27.3 H Glucose 83 Calcium 8.4 L Total Bilirubin 0.20 AST 24 ALT 40 Alkaline Phosphatase 108 Total Protein 6.0 L Albumin 2.9 L Globulin 3.1 Albumin/Globulin Ratio 0.9 Microbiology: Microbiology 02/27/21 18:20 Urine, Clean Catch Urine Culture - Final Citrobacter freundii 02/25/21 13:15 Nasal Secretion SARS-CoV-2 Antigen (Rapid) - Final D/C Instructions Discharge Diet: No restrictions Discharge Activity: Return to Normal Activity, May Shower and Use Walker May resume sexual activity in: 6-8 weeks Weight Bearing Status: Weight bearing as tolerated Call your doctor if you observe: Fever of 101 or Higher, Inability to urinate, Inability to have a bowel movement, Shortness of breath, Dizziness, Fainting spells, Chest pain, Increased palpitations (irregular heartbeat) and Uncontrolled pain Additional Instructions: Discharge home with 03/08/2021, [facility] PT/OT/ST/SN/RED LEADER. Please Follow Up With: BRENTON Almeida (neuro) When: As scheduled. Meaningful Use Info Meaningful Use Diagnoses (Choose all that apply): None applicable Discharge Plan Admission Admit Date/Time: 02/23/21 18:27 Primary Reason for Your Visit: Debility. Attending Provider: Jovanni Steven Chi Primary Care Provider: Augusta Wilson Instructions Additional Instructions / Restrictions: Discharge home with 03/08/2021, [facility] PT/OT/ST/SN/RED LEADER. Discharge Orders/Prescriptions Prescriptions: Continued atorvastatin 80 MG tablet 80 mg PO QHS Qty: 30 RF: 0 bupropion HCl 150 MG tablet sustained-release 12 hr 150 mg PO BID RF: 0 tamsulosin 0.4 MG capsule 0.4 mg PO DAILY@1730 RF: 0 pantoprazole 40 MG tablet 40 mg PO DAILY RF: 0 multivitamin with minerals 1 EACH tablet 1 ea PO DAILY RF: 0 mirabegron 25 MG tablet extended release 24 hr 25 mg PO DAILY RF: 0 polysaccharide iron complex 150 MG capsule 150 mg PO BIDCM RF: 0 mirtazapine 15 MG tablet 7.5 mg PO QHS RF: 0 gabapentin 100 MG capsule 100 mg PO BIDCM RF: 0 menthol-zinc oxide 1 APPLIC ointment 1 applic TOPICAL BID RF: 0 sennosides-docusate sodium [Stool Softener-Stimulant Laxat] 8.6-50 mg tablet 2 tab PO BID RF: 0 melatonin 3 mg tablet 3 mg PO QHS RF: 0 acetaminophen 500 mg tablet 1,000 mg PO Q8 RF: 0 aspirin 81 mg tablet,chewable 81 mg PO DAILYCM RF: 0 levetiracetam 1,000 MG tablet 1,000 mg PO Q12H RF: 0 quetiapine 25 mg tablet 12.5 mg PO BID 30 Days Qty: 30 RF: 0 escitalopram oxalate 20 mg tablet 20 mg PO DAILY 30 Days Qty: 30 RF: 0 Discontinued enoxaparin 40 MG/0.4 ML syringe 40 mg SC DAILY@0600 RF: 0 cholecalciferol (vitamin D3) 1,250 MCG capsule 1,250 mcg PO DAILY RF: 0 meclizine 25 MG tablet 25 mg PO Q8H PRN (Reason: Dizziness) Qty: 16 RF: 0 calcium carbonate 600 MG tablet 1,200 mg PO DAILY RF: 0 acetaminophen 500 MG tablet 1,000 mg PO Q6H PRN PRN (Reason: Pain Score 1-3/10) RF: 0 magnesium hydroxide 400 mg/5 mL Suspension 30 ml PO .PRN X 1 PRN (Reason: Constipation) Qty: 1 RF: 0 bisacodyl 10 mg Suppository 10 mg MD .PRN X 1 PRN (Reason: Constipation) Qty: 1 RF: 0 oxycodone 5 mg Tablet 5 mg PO Q6H PRN PRN (Reason: Pain 1-10) 7 Days Qty: 1 RF: 0 Referrals / Follow Up: Augusta Wilson DO [Primary Care Provider] - Disposition Disposition (needs filled in before D/C Order can be placed): Home Health Service
[2021-03-05] MEDS: Mirtazapine 15 MG Tablet 7.5 MG PO (20:28)
[2021-03-05] MEDS: Atorvastatin Calcium 80 MG Tablet PO (20:29)
[2021-03-05] MEDS: MELATONIN 3 MG TABLET PO (20:29)
[2021-03-05] MEDS: Bisacodyl 5 MG Tablet 10 MG PO (20:31)
[2021-03-06 05:50] VITALS: BP 131/48; PULSE 81; RESP 16; TEMP 37.1; O2SAT 93
[2021-03-06] MEDS: Escitalopram Oxalate 20 MG Tablet PO (05:52)
[2021-03-06] MEDS: Acetaminophen 500 MG Tablet 1000 MG PO ×3 (05:52→22:28)
[2021-03-06] MEDS: Mirabegron 25 MG TAB.ER.24H PO (05:52)
[2021-03-06] MEDS: buPROPion (SR) 150 MG Tablet.SA PO ×2 (05:52→17:50)
[2021-03-06] MEDS: Pantoprazole Sodium 40 MG Tablet PO (05:52)
[2021-03-06] MEDS: levETIRAcetam 1,000 MG Tablet 1000 MG PO ×2 (05:52→17:49)
[2021-03-06] MEDS: Ciprofloxacin 500 MG Tablet PO ×2 (05:52→17:49)
[2021-03-06] MEDS: Enoxaparin 40 MG/0.4 ML Syringe SC (05:52)
[2021-03-06] MEDS: Senna/Docusate Sodium 1 Tablet 2 TABLET PO (05:53)
[2021-03-06] MEDS: Menthol/Lanolin/Calamine/Znox 113 GM Tube 1 APPLIC TOPICAL ×2 (05:58→17:52)
[2021-03-06] MEDS: QUEtiapine 25 MG Tablet 12.5 MG PO ×2 (08:21→20:25)
[2021-03-06] MEDS: Gabapentin 100 MG Capsule PO ×2 (08:21→17:49)
[2021-03-06] MEDS: Aspirin 81 MG TAB.CHEW PO (08:21)
[2021-03-06] MEDS: Iron Polysaccharide Complex 150 MG CAPSULE PO ×2 (08:21→17:49)
[2021-03-06] MEDS: Multivitamins,Therapeutic Tablet 1 TABLET PO (08:21)
--- NOTE | 2021-03-06 10:47 | NURSING ---
pt off unit with spouse for Dr. pak.
--- NOTE | 2021-03-06 15:55 | CASEMGMT ---
Social Work Order for Junior-walker faxed to [employer]. Telephone call received from [employer], patient has already received walker through insurance for the year and a junior-walker will be an out of pocket charge. This social media job titles updated patient spouse, Jerod on above information. Jerod plans to stop by [employer] and private pay for Junior-walker. Proposed discharge date: 03/08/2021 to home with spouse and home health care. Anticipate no further discharge needs. Radha AVILES, HERIBERTO
[2021-03-06 16:00] VITALS: BP 114/64; PULSE 88; RESP 18; TEMP 36.2; O2SAT 97
[2021-03-06] MEDS: Tamsulosin HCl 0.4 MG Capsule PO (17:48)
[2021-03-06 20:07] LABS: Free Kappa Light Chains 48.2 mg/L (3.3-19.4); Immunoglobulin A 89 mg/dL (64-422); Immunoglobulin G 941 mg/dL (586-1602); Immunoglobulin M 53 mg/dL (26-217); PROEL- A/G Ratio 1.5 (0.7-1.7); PROEL- Albumin 3.6 g/dL (2.9-4.4); PROEL- Alpha-1 Globulin 0.2 g/dL (0.0-0.4); PROEL- Alpha-2 Globulin 0.6 g/dL (0.4-1.0); PROEL- Beta Globulin 0.7 g/dL (0.7-1.3); PROEL- Globulin, Total 2.4 g/dL (2.2-3.9)
[2021-03-06] MEDS: MELATONIN 3 MG TABLET PO (20:23)
[2021-03-06] MEDS: Atorvastatin Calcium 80 MG Tablet PO (20:23)
[2021-03-06] MEDS: Mirtazapine 15 MG Tablet 7.5 MG PO (20:23)
[2021-03-07] MEDS: Menthol/Lanolin/Calamine/Znox 113 GM Tube 1 APPLIC TOPICAL ×2 (04:55→17:55)
[2021-03-07] MEDS: levETIRAcetam 1,000 MG Tablet 1000 MG PO ×2 (04:56→17:55)
[2021-03-07] MEDS: Ciprofloxacin 500 MG Tablet PO (04:56)
[2021-03-07] MEDS: Enoxaparin 40 MG/0.4 ML Syringe SC (04:57)
[2021-03-07] MEDS: Escitalopram Oxalate 20 MG Tablet PO (04:57)
[2021-03-07] MEDS: Senna/Docusate Sodium 1 Tablet 2 TABLET PO (04:57)
[2021-03-07] MEDS: Pantoprazole Sodium 40 MG Tablet PO (04:58)
[2021-03-07] MEDS: buPROPion (SR) 150 MG Tablet.SA PO ×2 (04:58→17:55)
[2021-03-07] MEDS: Acetaminophen 500 MG Tablet 1000 MG PO ×3 (04:58→20:27)
[2021-03-07] MEDS: Mirabegron 25 MG TAB.ER.24H PO (04:58)
[2021-03-07 05:10] VITALS: BP 118/44; PULSE 81; RESP 20; TEMP 36.2; O2SAT 99
[2021-03-07] MEDS: Gabapentin 100 MG Capsule PO ×2 (08:04→17:55)
[2021-03-07] MEDS: Iron Polysaccharide Complex 150 MG CAPSULE PO ×2 (08:04→17:55)
[2021-03-07] MEDS: Multivitamins,Therapeutic Tablet 1 TABLET PO (08:04)
[2021-03-07] MEDS: QUEtiapine 25 MG Tablet 12.5 MG PO ×2 (08:04→20:26)
[2021-03-07] MEDS: Aspirin 81 MG TAB.CHEW PO (08:04)
[2021-03-07 10:00] VITALS: RESP 18
--- NOTE | 2021-03-07 10:25 | MDS.RN ---
Pain interview for HEATHER 03/08/21
[2021-03-07 16:00] VITALS: BP 121/45; PULSE 79; RESP 16; TEMP 36.3; O2SAT 96
[2021-03-07] MEDS: Tamsulosin HCl 0.4 MG Capsule PO (17:55)
[2021-03-07] MEDS: Atorvastatin Calcium 80 MG Tablet PO (20:27)
[2021-03-07] MEDS: MELATONIN 3 MG TABLET PO (20:27)
[2021-03-07] MEDS: Mirtazapine 15 MG Tablet 7.5 MG PO (20:28)
[2021-03-08 05:51] VITALS: BP 108/33; PULSE 83; RESP 16; TEMP 36.1; O2SAT 96
[2021-03-08] MEDS: Menthol/Lanolin/Calamine/Znox 113 GM Tube 1 APPLIC TOPICAL (05:53)
[2021-03-08] MEDS: Enoxaparin 40 MG/0.4 ML Syringe SC (05:53)
[2021-03-08] MEDS: Escitalopram Oxalate 20 MG Tablet PO (05:54)
[2021-03-08] MEDS: Acetaminophen 500 MG Tablet 1000 MG PO (05:54)
[2021-03-08] MEDS: Mirabegron 25 MG TAB.ER.24H PO (05:54)
[2021-03-08] MEDS: buPROPion (SR) 150 MG Tablet.SA PO (05:54)
[2021-03-08] MEDS: Pantoprazole Sodium 40 MG Tablet PO (05:55)
[2021-03-08] MEDS: levETIRAcetam 1,000 MG Tablet 1000 MG PO (05:55)
[2021-03-08] MEDS: Iron Polysaccharide Complex 150 MG CAPSULE PO (09:24)
[2021-03-08] MEDS: Aspirin 81 MG TAB.CHEW PO (09:24)
[2021-03-08] MEDS: Multivitamins,Therapeutic Tablet 1 TABLET PO (09:24)
[2021-03-08] MEDS: QUEtiapine 25 MG Tablet 12.5 MG PO (09:25)
[2021-03-08] MEDS: Gabapentin 100 MG Capsule PO (09:25)
[2021-03-08 09:46] VITALS: BP 102/76; PULSE 85; RESP 20; TEMP 36.7
[2021-03-08 09:47] VITALS: PULSE 85; RESP 20; O2SAT 97
== END 2021-03-08 10:40 | disposition home health service (06) | DRG 57 ==
PROVIDERS: Internal Medicine Hematology & Oncology; Admitting Provider Family Medicine Geriatric Medicine; PCP Family Medicine; Visit Provider Family Medicine Geriatric Medicine
DX: I69.354 Hemiplegia and hemiparesis following cerebral infarction affecting left non-dominant side (principal); C90.00 Multiple myeloma not having achieved remission; I69.398 Other sequelae of cerebral infarction; S42.302D Unspecified fracture of shaft of humerus, left arm, subsequent encounter for fracture with routine healing; X58.XXXD Exposure to other specified factors, subsequent encounter; E78.5 Hyperlipidemia, unspecified; F32.9 Major depressive disorder, single episode, unspecified; G40.909 Epilepsy, unspecified, not intractable, without status epilepticus; D50.9 Iron deficiency anemia, unspecified; N32.81 Overactive bladder; K21.9 Gastro-esophageal reflux disease without esophagitis; E55.9 Vitamin D deficiency, unspecified; R45.86 Emotional lability; F01.50 Vascular dementia, unspecified severity, without behavioral disturbance, psychotic disturbance, mood disturbance, and anxiety; I10 Essential (primary) hypertension; G25.0 Essential tremor; F41.9 Anxiety disorder, unspecified; R33.9 Retention of urine, unspecified; Z79.899 Other long term (current) drug therapy; Z86.718 Personal history of other venous thrombosis and embolism; Z79.82 Long term (current) use of aspirin
CPT/HCPCS: 36415; 80048; 80053; 81001; 82784; 83883; 84165; 85025; 86334; 87077; 87086; 87088; 87186; 87426; 92507; 92523; 92526; 97110; 97116; 97162; 97166; 97530; 97535; 97802

== ENCOUNTER → 2021-03-17 11:12 | Outpatient (CLI) | payer MEDICARE, OTHER, SELFPAY ==
[2021-02-23 18:30] VITALS: BMI 25.4
--- NOTE | 2021-03-17 11:18 | RAD_ITS ---
STUDY: X-RAY - LEFT HUMERUS REASON FOR EXAM: Female, 75 years old. Follow-up of left humeral fracture. TECHNIQUE: 2 view(s) of the humerus. COMPARISON: 01/21/2021. FINDINGS: Stable generalized osteopenia. Comminuted fracture of the proximal left humerus with callus formation at the fracture site. Alignment is more anatomic than on the prior study. No complications identified. There is no demonstrated soft tissue abnormality. RAD/Humerus min 2 Views IMPRESSION: Osteopenia with partially healed proximal left humeral fracture. No complications. Electronically Signed: Ihsan Mendosa MD at 12:27 EDT , Service support ,
== END ==
PROVIDERS: PCP Family Medicine; Referring Provider Family Medicine; Visit Provider Family Medicine
DX: S42.302G Unspecified fracture of shaft of humerus, left arm, subsequent encounter for fracture with delayed healing (principal)
CPT/HCPCS: 73060

== ENCOUNTER 2021-04-30 15:33 | Outpatient (RCR) | payer MEDICARE, OTHER, SELFPAY ==
[2021-04-30 16:18] LABS: AST(SGOT) 19 U/L (15-37); Alanine Aminotransfer ALT/SGPT 36 U/L (13-56); Albumin, Serum 3.4 g/dL (3.2-5.0); Alkaline Phosphatase 86 U/L (45-117); Anion Gap 5 (5-15); BUN 21 mg/dL (7-18); BUN/Creat Ratio 18.9 RATIO (10-20); Calcium,Total 8.4 mg/dL (8.5-10.1); Chloride 108 mmol/L (98-107); Creatinine, Serum 1.11 mg/dL (0.55-1.02); EST Glomerular Filtration Rate 51 mL/min (>60); Est Glom Filt Rate - Afr Amer 61 mL/min (>60); Globulin 3.3 g/dL (2.2-4.2); Glucose 149 mg/dL (74-106); Potassium 4.7 mmol/L (3.5-5.1); Protein, Total 6.7 g/dL (6.4-8.2); Sodium Level 137 mmol/L (136-145)
== END 2021-04-30 18:00 | disposition home or self-care (01) ==
LOC: HHLAB 15:33
PROVIDERS: PCP Family Medicine
DX: C90.00 Multiple myeloma not having achieved remission (principal); I69.354 Hemiplegia and hemiparesis following cerebral infarction affecting left non-dominant side; S42.302D Unspecified fracture of shaft of humerus, left arm, subsequent encounter for fracture with routine healing
CPT/HCPCS: 80053

== ENCOUNTER 2021-05-19 14:38 | Emergency (ER) | payer MEDICARE, OTHER, SELFPAY ==
[2021-05-19 14:39] VITALS: BP 86/57; PULSE 88; RESP 18; TEMP 35.6; BMI 23.8
--- NOTE | 2021-05-19 15:08 | CT_ITS ---
STUDY: CT BRAIN WITHOUT CONTRAST REASON FOR EXAM: Female, 76 years old. Fall hit head RADIATION DOSAGE (If Supplied By Facility): CTDIvol = ( 44.99 ) mGy, DLP = ( 829.85 ) mGycm TECHNIQUE: Transaxial CT imaging of the brain was performed without administration of intravenous contrast material. Individualized dose optimization techniques were used for this CT. COMPARISON: Comparison is made with prior examination 06/04/2020. FINDINGS: Normal soft tissue structures. The patient is status post craniotomy of the left frontal temporal parietal bone. The bony flap has been put back in place as compared to prior study. Residual thickening of the dura overlying the left frontal parietal lobes is seen. There is a stable 2 cm partially calcified mass along the left side of the falx cerebra right superiorly and posteriorly in keeping with a partially calcified meningioma. There is mild cerebral atrophy with widening of the extra-axial spaces and ventricular dilatation. Normal white matter tracts of the cerebral hemispheres. Normal basal ganglia and thalami. Normal brainstem. Normal cerebellum. There is no intracranial hemorrhage. There are no findings of an acute ischemic infarction. Normal visualized paranasal sinuses. CT/Brain/Head without Contrast IMPRESSION: No acute abnormality is seen. Electronically Signed: Kenyon Carmen MD at 15:46 EDT , Service support ,
--- NOTE | 2021-05-19 16:59 | EDS_ITS ---
HPI HPI - Fall History of Present Illness Chief Complaint: Fall Detail of Chief Complaint: Head injury Informant: patient and spouse/S.O. Occured/Mechanism Occurred: Yesterday Usually ambulates: Without assistance and Cane Pain/Injury Pain Location: head Current Severity: Mild Maximum Severity: Mild Narrative Narrative: 76-year-old female history of falls. is her caregiver at home. Yesterday she fell hitting her head on cement. He went to help her up and when he did she could not get up and that he fell and landed on top of her. She had no LOC. She is on the blood thinner Lovenox. She has had a prior subdural that need to be evacuated. She is complaining of mild posterior head pain. Denies vomiting. Denies neck pain. Denies any numbness. She denies any recent illness. Prior similar symptoms: Yes Recent Illness/Hospitalization: No PFSH PFSH Medical History Cancer Cellulitis Chronic neck and back pain Difficulty balancing when standing Emotional lability Left upper lobe pulmonary nodule Limb weakness Liver lesion Meningioma Osteopenia Resolved ischemic left middle cerebral artery (MCA) stroke in remote past Stroke Home Medications atorvastatin 80 mg PO QHS #30 tab 09/10/19 [Rx Last Taken 04/21/20] bupropion HCl 150 mg PO BID 09/26/19 [History Last Taken 04/22/20] tamsulosin 0.4 mg PO DAILY@1730 09/26/19 [History Last Taken 04/21/20] pantoprazole 40 mg PO DAILY 02/07/20 [History Last Taken 04/22/20] mirabegron 25 mg PO DAILY 04/17/20 [History Last Taken 04/22/20] multivitamin with minerals 1 ea PO DAILY 04/17/20 [History Last Taken 04/22/20] gabapentin 100 mg PO BIDCM 01/31/21 [History Last Taken Unknown] menthol-zinc oxide 1 applic TOPICAL BID 01/31/21 [History Last Taken Unknown] mirtazapine 7.5 mg PO QHS 01/31/21 [History Last Taken Unknown] polysaccharide iron complex 150 mg PO BIDCM 01/31/21 [History Last Taken Unknown] acetaminophen 1,000 mg PO Q8 02/23/21 [History Last Taken Unknown] aspirin 81 mg PO DAILYCM 02/23/21 [History Last Taken Unknown] levetiracetam 1,000 mg PO Q12H 02/23/21 [History Last Taken Unknown] melatonin 3 mg PO QHS 02/23/21 [History Last Taken Unknown] sennosides-docusate sodium [Stool Softener-Stimulant Laxat] 2 tab PO BID 02/23/21 [History Last Taken Unknown] escitalopram oxalate 20 mg PO DAILY 30 Days #30 tab 03/05/21 [Rx Last Taken Unknown] quetiapine 12.5 mg PO BID 30 Days #30 tab 03/05/21 [Rx Last Taken Unknown] dexamethasone 4 mg tablet 4 mg PO DAILY #60 tab 04/16/21 [Rx Last Taken Unknown] Allergy/AdvReac Type Severity Reaction Status Date / Time sulfamethoxazole Allergy Severe Other Verified 05/19/21 16:39 [From Bactrim] trimethoprim [From Bactrim] Allergy Severe Other Verified 05/19/21 16:39 indomethacin Allergy NEEDS Verified 05/19/21 16:39 FOLLOW-UP pneumococcal vaccine Allergy NEEDS Verified 05/19/21 16:39 FOLLOW-UP morphine AdvReac Severe Nausea Verified 05/19/21 16:39 Family History Mother Breast cancer Sister Breast cancer Aunt Breast cancer Daughter History of malignant melanoma Father Brain cancer Brother Lung cancer Other Anemia Surgical History History of back surgery History of brain surgery History of cholecystectomy History of hysterectomy Social History household members: spouse Smoking Status: Never smoker alcohol intake: never ROS ROS ED ROS Narrative Patient denies recent illness. Review of Systems ROS Unobtainable: Denies due to encephalopathy Constitutional Constitutional ED: Denies fever(s) Eyes Eyes: Denies change in vision ENT ENT ED: Denies ear pain or sore throat Cardiovascular Cardiovascular: Denies chest pain Respiratory/Chest Respiratory/Chest: Denies cough or dyspnea Gastrointestinal Gastrointestinal: Denies abdominal pain, diarrhea, nausea or vomiting Genitourinary Genitourinary ED: Denies dysuria or hematuria Musculoskeletal Musculoskeletal: Denies arthralgias or myalgias Integumentary Denies abscess or rash Neurologic Neurologic: Denies headache(s) Psychiatric Psychiatric: Denies depression Endocrine Endocrinology: Denies polyuria Hematologic/Lymphatic Hematologic/Lymphatic: Denies easy bruising Allergic/Immunologic Allergic/Immunologic ED: Denies urticaria EXAM Physical Exam Narrative Exam Narrative: 76-year-old hallway wheelchair. No acute distress. Initial blood pressure is 86/57 on a be rechecked. H EENT exam pupils are reactive light no facial trauma. Small contusions posterior scalp. No laceration no blood. C-spine nontender. Trachea midline.Lungs clear to auscultation. Heart regular rhythm rate in the 80s. No murmur. Chest nontender. Abdomen soft nontender. Pelvic girdle intact. Moving both upper and lower extremities. Nontender no deformity. Abrasions to the right elbow. Back nontender. Spine nontender.Neurologically she is awake and alert with no focal motor deficits. Const Vital Signs: 05/19/21 14:39 Temperature 96.0 F L Temperature Source Temporal Pulse Rate 88 Respiratory Rate 18 Blood Pressure 86/57 L Blood Pressure Mean 66 Positive well nourished and well developed; Negative for obese, cachectic, contractures or unkempt General Appearance ED: well developed and NAD; Negative for unkempt, cachectic or contractures Nutritional Appearance: Negative for cachectic or obese HEENT Reports normocephalic trauma, contusion, hematoma and tenderness; Negative for atraumatic Eyes PERRL and EOMs intact bilaterally Neck full ROM, no lymphadenopathy and supple General: Negative for tenderness Chest Wall inspection of chest normal and palpation of chest normal Resp normal respiratory effort, no retractions and clear to auscultation bilaterally Auscultation: Negative for rales, rhonchi or wheezes Cardio regular rate, regular rhythm, S1 normal heart sound, S2 normal heart sound and no murmurs GI non-tender, non-distended and no masses Auscultation: normoactive bowel sounds Palpation: soft; Negative for guarding or rebound tenderness present Back/Spine no CVA tenderness General Back: Negative for CVA tenderness Cervical Spine: Negative for cervical spine tenderness Thoracic Spine / Upper Back: Negative for thoracic spinal tenderness Lumbar Spine / Lower Back: Negative for lumbar spinal tenderness Extremity normal to inspection, full ROM, no joint enlargement, no calf tenderness and no pedal edema Extremity Narrative: Abrasions right posterior elbow. However normal range of motion upper and lower extremities. No deformities. Nontender. Neuro oriented x3, moves all extremities and no focal motor deficits [place] Coma Scale: document GCS findings Spontaneous Obeys Commands Oriented 15 Sensorium / Orientation: alert, oriented to person, oriented to place and oriented to time; Negative for orientation impaired, confused, lethargic or stuporous Psych mental status grossly normal and thought process normal Appearance: Negative for unkempt Skin Lesions: no lesions Rashes: no rashes and No rashes noted Trauma: abrasion MDM MDM MDM Narrative Medical decision making narrative: Only female history of falls fell on the back of her head on [place]. Obtain a CAT scan. Exam otherwise benign. Abrasions to right elbow. Repeat exam patient is doing well at 5:15 PM. I discussed with her who is also a patient he states her blood pressure always runs low and 80s over 50s is her baseline. We did recheck it it was 117/62 which is actually exceptionally good for her. She'll be discharged home. Lab Data Attestation: I reviewed the patient's lab results. Radiography Diagnostic Testing: Radiology Impression Brain CT 05/19/21 15:08 IMPRESSION: No acute abnormality is seen. Electronically Signed: Kenyon Carmen MD at 15:46 EDT , Service support , CAT scan read by the radiologist reviewed by me. There is also an incidental finding of a known meningioma. No acute bleed seen. Discharge Plan Triage Chief Complaint: Fall ED Provider: Duke Monsalve Dx/Rx/DC Orders Clinical Impression: Fall, Closed head injury Instructions: ED Head Injury (Adult) Prescriptions: No Action dexamethasone 4 mg tablet 4 mg PO DAILY Qty: 60 RF: 1 atorvastatin 80 MG tablet 80 mg PO QHS Qty: 30 RF: 0 bupropion HCl 150 MG tablet sustained-release 12 hr 150 mg PO BID RF: 0 tamsulosin 0.4 MG capsule 0.4 mg PO DAILY@1730 RF: 0 pantoprazole 40 MG tablet 40 mg PO DAILY RF: 0 multivitamin with minerals 1 EACH tablet 1 ea PO DAILY RF: 0 mirabegron 25 MG tablet extended release 24 hr 25 mg PO DAILY RF: 0 polysaccharide iron complex 150 MG capsule 150 mg PO BIDCM RF: 0 mirtazapine 15 MG tablet 7.5 mg PO QHS RF: 0 gabapentin 100 MG capsule 100 mg PO BIDCM RF: 0 menthol-zinc oxide 1 APPLIC ointment 1 applic topical BID RF: 0 sennosides-docusate sodium [Stool Softener-Stimulant Laxat] 8.6-50 mg tablet 2 tab PO BID RF: 0 melatonin 3 mg tablet 3 mg PO QHS RF: 0 acetaminophen 500 mg tablet 1,000 mg PO Q8 RF: 0 aspirin 81 mg tablet,chewable 81 mg PO DAILYCM RF: 0 levetiracetam 1,000 MG tablet 1,000 mg PO Q12H RF: 0 quetiapine 25 mg tablet 12.5 mg PO BID 30 Days Qty: 30 RF: 0 escitalopram oxalate 20 mg tablet 20 mg PO DAILY 30 Days Qty: 30 RF: 0 Primary Care Provider: Augusta Wilson Referrals: Augusta Wilson DO [Primary Care Provider] - As Needed Activity Restrictions/Additional Instructions: Ice to the back your head.Tylenol for pain. Return to the emergency department if vomiting or severe headache or not acting herself. Hold her next dose of Lovenox and then resume the next dose. Disposition Disposition: Home, Self Care
[2021-05-19 17:25] VITALS: BP 117/47; PULSE 74; RESP 18; O2SAT 96
== END 2021-05-19 17:30 | disposition home or self-care (01) ==
PROVIDERS: Emergency Provider Emergency Medicine; PCP Family Medicine
DX: S00.03XA Contusion of scalp, initial encounter (principal); S50.311A Abrasion of right elbow, initial encounter; W19.XXXA Unspecified fall, initial encounter; Y93.9 Activity, unspecified; Y92.9 Unspecified place or not applicable; Y99.9 Unspecified external cause status; Z79.52 Long term (current) use of systemic steroids; Z79.82 Long term (current) use of aspirin; Z79.899 Other long term (current) drug therapy; Z86.73 Personal history of transient ischemic attack (TIA), and cerebral infarction without residual deficits; C90.00 Multiple myeloma not having achieved remission; D46.20 Refractory anemia with excess of blasts, unspecified
CPT/HCPCS: 70450; 96372; 99282; J0897

== ENCOUNTER 2021-06-11 13:51 | Outpatient (RCR) | payer MEDICARE, OTHER, SELFPAY ==
[2021-06-11 14:36] LABS: Color, Urine Yellow (Yellow); Glucose, Dipstick Normal (Normal); Ketone-Dipstick Negative (Negative); Leukocyte Esterase-Dipstick 500 /ul (Negative); Nitrite-Dipstick Negative (Negative); Occult Blood-Urine 50 /ul (Negative); Protein-Dipstick 15 mg/dl (Negative); Urine Bilirubin Dipstick Negative (Negative); Urine Clarity Cloudy (Clear); Urine Urobilinogen Normal (Normal)
== END 2021-06-29 02:36 | disposition home or self-care (01) ==
LOC: HHLAB 13:51
PROVIDERS: PCP Family Medicine
DX: N39.0 Urinary tract infection, site not specified (principal); C90.00 Multiple myeloma not having achieved remission; I69.354 Hemiplegia and hemiparesis following cerebral infarction affecting left non-dominant side; S42.302D Unspecified fracture of shaft of humerus, left arm, subsequent encounter for fracture with routine healing
CPT/HCPCS: 81002; 87086; 87088; 87186

== ENCOUNTER → 2021-07-09 13:19 | Outpatient (CLI) | payer MEDICARE, OTHER, SELFPAY ==
--- NOTE | 2021-07-09 13:23 | CT_ITS ---
INDICATION: F/U LUNG AND LIVER LESIONS EXAMINATION: CT CHEST, ABDOMEN AND PELVIS WITH CONTRAST - CT Chest Abdomen And Pelvis W/ Contrast Injection TECHNIQUE: Helically acquired images were obtained of the chest, abdomen, and pelvis following IV contrast. CTA protocol with 3D reformats were performed. A radiation dose optimization technique was used for this scan. IV Contrast dosage and agent: 75 mL of [id number] Oral contrast: None. COMPARISON: CT chest 07/31/2020, 12/13/2019. FINDINGS: ----Chest: LUNGS, PLEURA AND LARGE AIRWAYS: Right lower lobe, superior segment, 2.1 x 1.0 cm elongated irregular nodule previously measured 2.2 x 1.8 cm. Scarlike nodular thickening in the left upper lobe, image 57, unchanged. 2 and 4 mm nodules in the lingula, right middle lobe and right lower lobe are unchanged. Right upper lobe groundglass opacity and left upper lobe irregular scarlike opacity with adjacent groundglass attenuation are unchanged. No new nodule or mass. No pleural effusion. No pneumothorax. THYROID: Inferior right thyroid lobe hypodensity not appreciably changed. HEART AND PERICARDIUM: Heart size is normal. No pericardial effusion. VESSELS: Thoracic aorta is not dilated. No aortic dissection. No obvious central pulmonary embolism although this study was not performed with the pulmonary embolism protocol. MEDIASTINUM AND RAFA: No mediastinal or hilar adenopathy. Esophagus is unremarkable. No hiatal hernia. BONES: No suspicious lytic or blastic abnormality. ----Abdomen/Pelvis: Moderate motion, especially in the mid abdomen limiting overall quality the exam. LIVER: Right hepatic lobe peripheral hypodensities are again visualized measuring 2.6 and 3.9 cm, previously measuring 2.4 and 4.0 cm. Left hepatic lobe hypodensity measures 1.7 cm, previously measuring 1.4 cm. Note that comparison measurements are on a unenhanced exam. Comparison with other prior imaging dating back to 12/13/2019 shows no significant interval change. GALLBLADDER AND BILIARY TREE: No calcified gallstones. No gallbladder distension or wall edema. No intra- or extrahepatic biliary ductal dilation. PANCREAS: No focal cystic or solid mass. SPLEEN: Normal size without focal cystic or solid mass. ADRENAL GLANDS: No nodules. KIDNEYS AND URETERS: Normal renal size and position. No hydronephrosis. PERITONEUM: No ascites or free air. No other fluid collection. BOWEL: No evidence of acute appendicitis. No stomach or bowel distension. No focal inflammatory change. LYMPH NODES: No enlarged mesenteric or retroperitoneal lymph nodes. VESSELS: Aorta is non-dilated. URINARY BLADDER: Unremarkable. REPRODUCTIVE ORGANS: No pelvic masses. ABDOMINAL WALL: No discrete abdominal or pelvic wall hernia. BONES: Multilevel advanced degenerative disc and endplate changes most notably at L2-3 where there is degenerative posterior spondylolisthesis of L2 relative to L3. Patient is status post posterior laminectomy L2-5 levels. No fracture. No focal osseous lesion. Overall appearance suggesting decreased bone mineral density. CT/CT Chest, Abd, Pel w/Contrast IMPRESSION: Multiple pulmonary nodules as above with no appreciable change compared to comparison exams dating back to 12/13/2019. Inferior right thyroid lobe nodule. Comparison with thyroid ultrasound should be considered. Three hepatic hypodensities as above, not significantly changed compared with prior imaging dating back to 12/13/2019. Postsurgical and degenerative changes lumbar spine with diffuse appearance of the spine and pelvis suggesting decreased bone mineral density. Electronically Signed: Mark Nath DO at 21:52 EST Tel , Service support ,
== END ==
PROVIDERS: PCP Family Medicine; Referring Provider Internal Medicine Hematology & Oncology; Visit Provider Internal Medicine Hematology & Oncology
DX: R91.8 Other nonspecific abnormal finding of lung field (principal); K76.9 Liver disease, unspecified; E04.1 Nontoxic single thyroid nodule; N18.9 Chronic kidney disease, unspecified; C90.00 Multiple myeloma not having achieved remission; D46.20 Refractory anemia with excess of blasts, unspecified
CPT/HCPCS: 71260; 74177; 96360; J7040; Q9967; A4216

== ENCOUNTER → 2021-07-17 13:11 | Outpatient (CLI) | payer MEDICARE, OTHER, SELFPAY ==
--- NOTE | 2021-07-17 13:14 | US_ITS ---
STUDY: RENAL ULTRASOUND - COMPLETE REASON FOR EXAM: Female, 76 years old. UTI TECHNIQUE: Ultrasound evaluation of the kidneys was performed with real-time and static llamas-scale imaging. COMPARISON: Comparison is made with prior study dated 10/02/2019. FINDINGS: RIGHT KIDNEY: Normal location of the right kidney, which is normal in size. The right kidney measures 9.3 cm x 4.4 cm x 3.5 cm. There is a normal cortex of the right kidney. The renal cortex measures 0.8 cm. There is no right renal mass or cyst. There are no right renal calculi. There is no right hydronephrosis. DISTAL RIGHT URETER: There is non-visualization of the distal right ureter. There is no demonstrated right ureterovesical junction calculus. There is no demonstrated right ureteral jet. LEFT KIDNEY: Normal location of the left kidney, which is normal in size. The left kidney measures 9.4 cm x 4.5 cm x 3.9 cm. There is a normal cortex of the left kidney. The renal cortex measures 0.8 cm. There is no left renal mass or cyst. There are no left renal calculi. There is no left hydronephrosis. DISTAL LEFT URETER: There is non-visualization of the distal left ureter. There is no demonstrated left ureterovesical junction calculus. There is no demonstrated left ureteral jet. BLADDER: The distended urinary bladder has a volume of 60 ml. Low-level echoes are seen within the urinary bladder suggestive of a possible urinary infection. There is a normal wall thickness of the distended urinary bladder. There is no demonstrated mass within the urinary bladder. There are no demonstrated bladder calculi. Incidental note is made of a 2.5 cm x 2.9 cm x 1.9 cm hemangioma in the right lobe of the liver. US/Kidney and Bladder IMPRESSION: Low-level echoes are seen within the urine. Possible infection should be ruled out. Hemangioma in the right lobe of the liver. Electronically Signed: Kenyon Carmen MD at 15:45 EST , Service support ,
== END ==
PROVIDERS: PCP Family Medicine; Referring Provider Urology; Visit Provider Urology
DX: N39.0 Urinary tract infection, site not specified (principal)
CPT/HCPCS: 76770

== ENCOUNTER → 2021-08-05 16:13 | Outpatient (CLI) | payer MEDICARE, OTHER, SELFPAY ==
--- NOTE | 2021-08-05 16:23 | MRI_ITS ---
EXAM: MR LEFT UPPER EXTREMITY WITHOUT AND WITH INTRAVENOUS CONTRAST, FOREARM CLINICAL INDICATION: LEFT FOREARM PAIN, HX MULTIPLE MYELOMA TECHNIQUE: Multiplanar and multisequence MR images of the left forearm without and with intravenous contrast. This report was created using [employer] report [email or web address] technology. CONTRAST: IV Yes Dotarem COMPARISON: 03/17/2021 plain film FINDINGS: BONES/JOINTS: In the midshaft of the radius and ulna, there is heterogeneous MRI signal. This is concerning for underlying multiple myeloma lesion. Plain film correlation is recommended. There is area of increased or signal and low T1 signal in the midshaft of the radius and ulna. This area demonstrates mild contrast enhancement. No fracture. No joint effusion. MUSCLES: Unremarkable. No edema or myositis. OTHER SOFT TISSUES: Unremarkable. No solid or cystic mass. MRI/Upper Ext No Joint W/WO Cont IMPRESSION: In the midshaft of the radius and ulna, there is heterogeneous MRI signal. This is concerning for underlying multiple myeloma lesion. Plain film correlation is recommended. Electronically Signed: Avni Otero MD at 21:11 EST , Service support ,
== END ==
PROVIDERS: PCP Family Medicine; Visit Provider Specialist
DX: M79.632 Pain in left forearm (principal)
CPT/HCPCS: 73220; A9575

== ENCOUNTER 2021-08-16 14:27 | Emergency (ER) | payer MEDICARE, OTHER, SELFPAY ==
[2021-08-16 14:29] VITALS: BP 138/49; PULSE 89; RESP 16; TEMP 35.4; O2SAT 99; BMI 22.6
--- NOTE | 2021-08-16 14:43 | EDS_ITS ---
HPI History of Present Illness Chief Complaint: Bentley C/O Informant: patient Narrative Narrative: 76-year-old female presents the emergency department after her Bentley catheter came out this morning. Patient has a history of a weak bladder and had a Bentley catheter put in by Dr. Faith within the week. She is supposed to go through training next week to learn how to self cath. 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5 mg PO QHS 01/31/21 [History Last Taken Unknown] polysaccharide iron complex 150 mg PO BIDCM 01/31/21 [History Last Taken Unknown] acetaminophen 1,000 mg PO Q8 02/23/21 [History Last Taken Unknown] aspirin 81 mg PO DAILYCM 02/23/21 [History Last Taken Unknown] levetiracetam 1,000 mg PO Q12H 02/23/21 [History Last Taken Unknown] melatonin 3 mg PO QHS 02/23/21 [History Last Taken Unknown] sennosides-docusate sodium [Stool Softener-Stimulant Laxat] 2 tab PO BID 02/23/21 [History Last Taken Unknown] escitalopram oxalate 20 mg PO DAILY 30 Days #30 tab 03/05/21 [Rx Last Taken Unknown] quetiapine 12.5 mg PO BID 30 Days #30 tab 03/05/21 [Rx Last Taken Unknown] dexamethasone 4 mg tablet 4 mg PO DAILY #60 tab 04/16/21 [Rx Last Taken Unknown] acyclovir 400 mg tablet 400 mg PO BID 06/19/21 [History Last Taken Unknown] atenolol 25 mg tablet 25 mg PO DAILY 06/19/21 [History Last Taken Unknown] cephalexin 500 mg capsule 500 mg PO TID 06/19/21 [History Last Taken Unknown] enoxaparin 40 mg/0.4 mL subcutaneous syringe 40 mg SUBCUT DAILY 06/19/21 [History Last Taken Unknown] furosemide 40 mg tablet 40 mg PO DAILY 06/19/21 [History Last Taken Unknown] Allergy/AdvReac Type Severity Reaction Status Date / Time sulfamethoxazole Allergy Severe Other Verified 08/16/21 14:29 [From Bactrim] trimethoprim [From Bactrim] Allergy Severe Other Verified 08/16/21 14:29 indomethacin Allergy NEEDS Verified 08/16/21 14:29 FOLLOW-UP pneumococcal vaccine Allergy NEEDS Verified 08/16/21 14:29 FOLLOW-UP morphine AdvReac Severe Nausea Verified 08/16/21 14:29 Family History Mother Breast cancer Sister Breast cancer Aunt Breast cancer Daughter History of malignant melanoma Father Brain cancer Brother Lung cancer Other Anemia Surgical History History of back surgery History of brain surgery History of cholecystectomy History of hysterectomy Social History household members: spouse Smoking Status: Never smoker alcohol intake: never ROS ROS ED Constitutional Constitutional ED: Denies chills or weight loss Eyes Eyes: Denies change in vision or diplopia ENT ENT ED: Denies ear pain, rhinorrhea or sore throat Cardiovascular Cardiovascular: Denies chest pain, orthopnea, palpitations or racing heartbeat Respiratory/Chest Respiratory/Chest: Denies cough, dyspnea or orthopnea Gastrointestinal Gastrointestinal: Denies abdominal pain, diarrhea, nausea or vomiting Genitourinary Genitourinary ED: Denies dysuria, hematuria or urinary frequency Musculoskeletal Musculoskeletal: Denies arthralgias or myalgias Integumentary Denies abscess or rash Neurologic Neurologic: Denies headache(s) or weakness Psychiatric Psychiatric: Denies anxiety, depression, suicidal ideation or suicidal thoughts Endocrine Endocrinology: Denies polydipsia, polyphagia or polyuria Allergic/Immunologic Allergic/Immunologic ED: Denies mouth swelling, tongue swelling or urticaria EXAM Physical Exam Const Vital Signs: 08/16/21 14:29 Temperature 95.7 F L Temperature Source Temporal Pulse Rate 89 Respiratory Rate 16 Blood Pressure 138/49 H Blood Pressure Mean 78 Pulse Ox 99 Oxygen Delivery Method Room Air Positive well nourished and well developed General Appearance ED: well developed HEENT Reports normocephalic, head/scalp atraumatic and moist mucous membranes Eyes PERRL and EOMs intact bilaterally Neck no lymphadenopathy, supple and no JVD Resp normal respiratory effort and clear to auscultation bilaterally Cardio regular rate, regular rhythm and no murmurs GI normal to inspection, nondistended, normoactive bowel sounds and non-tender Palpation: soft Back/Spine no CVA tenderness and normal ROM Extremity normal to inspection General Extremety ED: Negative for edema General Extremity: Negative for edema Neuro oriented x3 Sensorium / Orientation: alert Psych mental status grossly normal Mood & Affect: Negative for depressed or tearful Skin no rashes or lesions noted and no wounds MDM MDM MDM Narrative Medical decision making narrative: Bentley catheter was replaced by nursing. Patient to follow-up with urology as scheduled Discharge Plan Triage Chief Complaint: Bentley C/O ED Provider: Connor Conner Dx/Rx/DC Orders Clinical Impression: Malfunction of Bentley catheter Instructions: ED Bentley Catheter, Care Prescriptions: No Action dexamethasone 4 mg tablet 4 mg PO DAILY Qty: 60 RF: 1 cephalexin 500 mg capsule 500 mg PO TID RF: 0 acyclovir 400 mg tablet 400 mg PO BID RF: 0 atenolol 25 mg tablet 25 mg PO DAILY RF: 0 enoxaparin 40 mg/0.4 mL syringe 40 mg subcut DAILY RF: 0 furosemide 40 mg tablet 40 mg PO DAILY RF: 0 atorvastatin 80 MG tablet 80 mg PO QHS Qty: 30 RF: 0 bupropion HCl 150 MG tablet sustained-release 12 hr 150 mg PO BID RF: 0 tamsulosin 0.4 MG capsule 0.4 mg PO DAILY@1730 RF: 0 pantoprazole 40 MG tablet 40 mg PO DAILY RF: 0 multivitamin with minerals 1 EACH tablet 1 ea PO DAILY RF: 0 mirabegron 25 MG tablet extended release 24 hr 25 mg PO DAILY RF: 0 polysaccharide iron complex 150 MG capsule 150 mg PO BIDCM RF: 0 mirtazapine 15 MG tablet 7.5 mg PO QHS RF: 0 gabapentin 100 MG capsule 100 mg PO BIDCM RF: 0 menthol-zinc oxide 1 APPLIC ointment 1 applic topical BID RF: 0 sennosides-docusate sodium [Stool Softener-Stimulant Laxat] 8.6-50 mg tablet 2 tab PO BID RF: 0 melatonin 3 mg tablet 3 mg PO QHS RF: 0 acetaminophen 500 mg tablet 1,000 mg PO Q8 RF: 0 aspirin 81 mg tablet,chewable 81 mg PO DAILYCM RF: 0 levetiracetam 1,000 MG tablet 1,000 mg PO Q12H RF: 0 quetiapine 25 mg tablet 12.5 mg PO BID 30 Days Qty: 30 RF: 0 escitalopram oxalate 20 mg tablet 20 mg PO DAILY 30 Days Qty: 30 RF: 0 Primary Care Provider: Augusta Wilson Referrals: Marina Faith MD [STAFF PHYSICIAN] - Keep [facility] appointment Augusta Wilson DO [Primary Care Provider] - Disposition Disposition: Home, Self Care
== END 2021-08-16 15:18 | disposition home or self-care (01) ==
PROVIDERS: Emergency Provider Emergency Medicine; PCP Family Medicine
DX: T83.091A Other mechanical complication of indwelling urethral catheter, initial encounter (principal)
CPT/HCPCS: 51702; 99283

== ENCOUNTER 2021-11-10 09:12 | Day surgery (SDC) | payer MEDICARE, OTHER, SELFPAY ==
[2021-11-10] VITALS (7 sets, daily range): BP systolic 97–132; BP diastolic 32–48; PULSE 80–95; RESP 15–16; TEMP 36.8–37.1; O2SAT 92–98; BMI 22.0
--- NOTE | 2021-11-10 09:19 | EKG12_ITS ---
Test Reason : PRE OP Blood Pressure : / mmHG Vent. Rate : 083 BPM Atrial Rate : 083 BPM P-R Int : 144 ms QRS Dur : 084 ms QT Int : 378 ms P-R-T Axes : 048 024 035 degrees QTc Int : 444 ms Normal sinus rhythm Low voltage QRS Borderline ECG When compared with ECG of 20-APR-2020 08:18, No significant change was found Confirmed by TRINITY GARNICA, INGRIS ([id number]), book or script editor TIMMY VALENZUELA ([id number]) on 11/13/2021 1:38:15 PM Referred By: Marina Faith Confirmed By:LEE PETERSEN MD
[2021-11-10 10:10] LABS: Hematocrit 39.9 % (37-47); Hemoglobin 12.9 g/dL (12.0-15.0); Mean Corp Hgb Conc 32.3 g/dL (32-36); Mean Corpuscular Hgb 31.6 pg (27.0-32.0); Mean Corpuscular Volume 97.8 fL (81-99); Mean Platelet Vol. 11.9 fl (6.2-12.0); Platelet Count 148 K/mm3 (150-450); RBC Distribution Width CV 13.6 % (11.6-14.6); RBC Distribution Width SD 49.1 fl (35.1-43.9); Red Blood Count 4.08 M/mm3 (4.2-5.4); White Blood Count 11.3 K/mm3 (4.4-11.0)
[2021-11-10] MEDS: Lactated Ringers 1,000 ML 15 ML IV (10:15)
[2021-11-10 10:33] LABS: Anion Gap 3 (5-15); BUN 23 mg/dL (7-18); BUN/Creat Ratio 19.8 RATIO (10-20); Calcium,Total 8.4 mg/dL (8.5-10.1); Chloride 109 mmol/L (98-107); Creatinine, Serum 1.16 mg/dL (0.55-1.02); EST Glomerular Filtration Rate 48 mL/min (>60); Est Glom Filt Rate - Afr Amer 58 mL/min (>60); Estimated Creatinine Clearance 36.55 ml/min; Glucose 93 mg/dL (74-106); Potassium 4.3 mmol/L (3.5-5.1); Sodium Level 140 mmol/L (136-145)
--- NOTE | 2021-11-10 11:00 | RAD_ITS ---
INDICATION: INTERSTIM THERAPY 1 EXAMINATION/TECHNIQUE: X-RAY - XR Pelvis 1 or 2 Views COMPARISON: None. FINDINGS: 3 fluoroscopic images of intraoperative InterStim therapy were submitted for interpretation. Total fluoroscopy time: 25 seconds. A needle is seen projecting over the lower sacrum on the lateral spot views. A stimulator device/catheter is then placed with the tip terminating at the level of the left lower sacrum on the frontal images. RAD/Pelvis 1 or 2 Views IMPRESSION: As above. Please see intraoperative report for further details. Electronically Signed: Kory Chamberlain, at 15:00 EDT ,
--- NOTE | 2021-11-10 11:00 | PCM.DC ---
Discharge Instructions Diet Discharge Diet: No restrictions Activity Discharge Activity: May Not Shower Dressing / Incision Call your doctor if your incision/area has: Continuous Slow Oozing, Sudden Increased Bleeding, Increased Pain/ Swelling, Increased Redness and Foul Smelling Discharge Call your doctor if you observe: Fever of 101 or Higher, Inability to urinate and Inability to have a bowel movement Remove Dressing in: do not remove dressing Cleanse incision/area with: Keep Dressing Clean & Dry Follow Up Care Please Follow Up With: Marina Faith MD When: in the office as scheduled Test Results: Test results from this visit will be discussed in further detail at your follow-up appointment, if applicable. Discharge Plan Admission Attending Provider: Marina Faith Primary Care Provider: Augusta Wilson Discharge Orders/Prescriptions Prescriptions: New oxycodone-acetaminophen [Percocet] 5-325 mg tablet 1 tab PO Q8H PRN (Reason: pain) 3 Days Qty: 9 RF: 0 cephalexin [cephalexin] 500 MG capsule 500 mg PO Q12 3 Days Qty: 6 RF: 0 Discontinued mirabegron 25 MG tablet extended release 24 hr 25 mg PO DAILY RF: 0 No Action acyclovir 400 mg tablet 400 mg PO BID RF: 0 atenolol 25 mg tablet 25 mg PO DAILY RF: 0 enoxaparin 40 mg/0.4 mL syringe 40 mg subcut DAILY RF: 0 furosemide 40 mg tablet 40 mg PO DAILY RF: 0 atorvastatin 80 MG tablet 80 mg PO QHS Qty: 30 RF: 0 bupropion HCl 150 MG tablet sustained-release 12 hr 150 mg PO QODAY RF: 0 tamsulosin 0.4 MG capsule 0.4 mg PO QHS RF: 0 multivitamin with minerals 1 EACH tablet 1 ea PO DAILY RF: 0 acetaminophen 500 mg tablet 1,000 mg PO Q8 RF: 0 escitalopram oxalate 20 mg tablet 20 mg PO DAILY 30 Days Qty: 30 RF: 0 cholecalciferol (vitamin D3) [Vitamin D3] 125 mcg (5,000 unit) Tablet 125 mcg PO DAILY RF: 0 dexamethasone 4 mg tablet 5 mg PO WE RF: 0 Referrals / Follow Up: Augusta Wilson DO [Primary Care Provider] - Disposition Disposition (needs filled in before D/C Order can be placed): Home, Self Care
--- NOTE | 2021-11-10 11:06 | OP.PCM_ITS ---
Problems Associated Problem List Diagnoses (1) Urinary retention: Report of Operation Date of Procedure: 11/10/21 Pre-Operative Diagnosis: urinary retention Post-Operative Diagnosis: same Surgery/Procedure Performed:: Interstim Stage 1 Surgeon: Marina Faith Type of Anesthesia: MAC Description of Procedure: The patient is a 76-year-old female with urinary retention who presents for trial of InterStim. Informed consent was obtained. The patient was taken to the operating room and placed in a prone position on the operating room table. She was appropriately padded and secured to the table. Anesthesia monitored the head, neck, airway, IV access and vital signs throughout the case. Once anesthesia was appropriately administered the patient was prepped and draped in usual sterile fashion. Using the C arm, the S3 foramen was marked out. The skin overlying this area was infiltrated with lidocaine with epinephrine. The needle was then used to access the S3 foramen and with stimulation good romero and toe flexion was achieved. The guidewire was then placed through the needle and an incision was made. The dilating sheat h was then passed over the guidewire. The lead was then inserted down into the sheath and appropriately positioned with a lateral curvature. This was confirmed on fluoroscopic visualization. At this time all 4 leads were tested with good romero and toe response. The lead was then tunneled into the selected pocket site which was formed following infiltration with lidocaine incision and cautery for hemostasis. The lead extension was then tunneled from the contralateral position into the pocket site. The lead was dried and placed into the lead extension and secured using the torque wrench. This was then buried into the formed pocket site which was closed with 3-0 interrupted Vicryl followed by 4-0 subcuticular Vicryl and Dermabond. The temporary battery was then attached. Drain sponges were placed and an OpSite was used covering the area followed by cloth tape. Patient was awakened and taken to the recovery room in good condition. There were no complications during this procedure. Grafts/Implants Used: Interstim lead and lead extension Complications none Admit VTE Documentation VTE Present on Admission: Yes VTE Pharm Prophylaxis ordered?: Yes
[2021-11-10] MEDS: Vancomycin IV 1,000 MG/200 ML BAG 200 MG IV (11:18)
[2021-11-10] MEDS: Lidocaine 1%/Epi 1:200 (30ml) 30 ML AMPUL (11:49)
== END 2021-11-10 23:59 | disposition home or self-care (01) ==
LOC: SDC 09:16 → AC 09:18
PROVIDERS: PCP Family Medicine; Referring Provider Urology; Visit Provider Urology
PROC: (CPT 64581; principal; 2021-11-10 10:50)
DX: N31.9 Neuromuscular dysfunction of bladder, unspecified (principal); R33.9 Retention of urine, unspecified; N39.44 Nocturnal enuresis
CPT/HCPCS: 64581; 72170; 76000; 80048; 85027; 93005; J7120; J2405

== ENCOUNTER 2021-11-24 09:57 | Day surgery (SDC) | payer MEDICARE, OTHER, SELFPAY ==
[2021-11-24] VITALS (9 sets, daily range): BP systolic 102–128; BP diastolic 47–64; PULSE 85–92; RESP 16; TEMP 36.4–37.2; O2SAT 94–100; BMI 22.6
[2021-11-24] MEDS: Lactated Ringers 1,000 ML 15 ML IV (10:37)
[2021-11-24] MEDS: Cefazolin 2 GM in 0.9% Normal Saline 100 ML IV (12:12)
[2021-11-24] MEDS: Lidocaine 1% /Epi 1:100 (20ml) 20 ML Vial (12:24)
--- NOTE | 2021-11-24 13:11 | DCINST_ITS ---
Discharge Instructions Diet Discharge Diet: No restrictions Activity Discharge Activity: Return to Normal Activity and May Shower Dressing / Incision Call your doctor if your incision/area has: Continuous Slow Oozing, Sudden Inc reased Bleeding, Increased Pain/ Swelling, Increased Redness, Foul Smelling Discharge and Swelling at the incision site Call your doctor if you observe: Fever of 101 or Higher, Inability to urinate and Inability to have a bowel movement Cleanse incision/area with: Keep Dressing Clean & Dry Catheter: Botello to leg bag and Botello to large bag (please give leg bag and large bag and instruct on care (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 call for appt. Test Results: Test results from this visit will be discussed in further detail at your follow-up appointment, if applicable. Discharge Plan Admission Attending Provider: Marina Faith Primary Care Provider: Augusta Wilson Discharge Orders/Prescriptions Prescriptions: Continued acyclovir 400 mg tablet 400 mg PO BID RF: 0 atenolol 25 mg tablet 25 mg PO DAILY RF: 0 enoxaparin 40 mg/0.4 mL syringe 40 mg subcut DAILY RF: 0 furosemide 40 mg tablet 40 mg PO DAILY RF: 0 atorvastatin 80 MG tablet 80 mg PO QHS Qty: 30 RF: 0 bupropion HCl 150 MG tablet sustained-release 12 hr 150 mg PO QODAY RF: 0 tamsulosin 0.4 MG capsule 0.4 mg PO QHS RF: 0 multivitamin with minerals 1 EACH tablet 1 ea PO DAILY RF: 0 acetaminophen 500 mg tablet 1,000 mg PO Q8 RF: 0 escitalopram oxalate 20 mg tablet 20 mg PO DAILY 30 Days Qty: 30 RF: 0 cholecalciferol (vitamin D3) [Vitamin D3] 125 mcg (5,000 unit) Tablet 125 mcg PO DAILY RF: 0 dexamethasone 4 mg tablet 5 mg PO WE RF: 0 cephalexin 500 MG capsule 500 mg PO Q12 3 Days Qty: 6 RF: 0 oxycodone-acetaminophen [Percocet] 5-325 mg tablet 1 tab PO Q8H PRN (Reason: pain) 3 Days Qty: 9 RF: 0 Referrals / Follow Up: Augusta Wilson DO [Primary Care Provider] - Disposition Disposition (needs filled in before D/C Order can be placed): Home, Self Care
--- NOTE | 2021-11-24 13:15 | OP.PCM_ITS ---
Problems Associated Problem List Diagnoses (1) Urinary retention: (2) Neurogenic bladder: Report of Operation Date of Procedure: 11/24/21 Pre-Operative Diagnosis: urinary retention, neurogenic bladder Post-Operative Diagnosis: same Surgery/Procedure Performed:: removal Interstim lead and lead extension, cystoscopy with suprapubic tube insertion Surgeon: Marina Faith Type of Anesthesia: MAC Drains: 16 Filipino Bentley catheter suprapubic tube Estimated Blood Loss (mL): 10 cc Description of Procedure: The patient is a 76-year-old female with dementia and neurogenic bladder with urinary retention. She failed a stage I InterStim. She presents today for removal of the lead and lead extension in addition to placement of a suprapubic tube and cystoscopy. Informed consent was obtained. Patient was taken to the operating room placed on the operating room table in a prone position. She was appropriately supported and secured to the bed. Anesthesia monitored the head, neck, airway, IV access and vital signs throughout the case. Once anesthesia was appropriately administered the patient was prepped and draped in usual sterile fashion. The incisions were infiltrated with lidocaine with epinephrine for local anesthetic control and hemostatic control. The incisions were then opened with a knife. The lead extension and lead were identified and brought into the operative field. They were cut. The lead extension was removed from underneath the drapes where it was secured with a hemostat. Incision overlying the lead insertion site was also opened. Hemostat was used to isolate and secure the lead. Using hemostats the lead in its entirety with tines intact was removed. The incisions were irrigated with sterile water. The incisions were then closed with 3-0 interrupted Vicryl followed by 4-0 subcuticular closure and Dermabond. Once this dried the patient was transferred over to a cart and slid back onto the operative table in a supine position. She was then placed into dorsal lithotomy position and was prepped and draped in usual sterile fashion. The cystoscope was inserted through the urethra under direct visualization. The patient was placed into Trendelenburg. The location of the suprapubic tube insertion site 2 fingerbreadths above the pubic bone was selected and marked with a marking pen. This area was infiltrated with lidocaine. An incision was made. Using the punch trocar, entrance into the urinary bladder was made and was visible with th e cystoscope in the dome of the bladder. The obturator of the trocar was then removed and a 16 Filipino Bentley catheter was inserted without difficulty. The balloon was inflated with 10 cc of sterile water. The sheath of the trocar was then removed. The patient the cystoscope was then removed after the balloon was visible at the dome of the bladder in good position. At this time one nylon suture was placed at the suprapubic tube insertion site and the Bentley catheter was secured in position. Drain sponges were placed for a dressing. A Bentley catheter was draining clear yellow urine and irrigation without difficulty. The patient was then awakened and taken to the recovery room in good condition. There were no complications during this procedure. Grafts/Implants Used: Bentley catheter 16Fr. Complications none Admit VTE Documentation VTE Present on Admission: Yes VTE Mechan Device Prophylaxis: SCD's VTE Pharm Prophylaxis ordered?: Yes
== END 2021-11-24 23:59 | disposition home or self-care (01) ==
LOC: SDC 09:59 → AC 10:00
PROVIDERS: PCP Family Medicine; Referring Provider Urology; Visit Provider Urology
PROC: (CPT 64585; principal; 2021-11-24 11:50)
DX: Z45.42 Encounter for adjustment and management of neurostimulator (principal); I69.354 Hemiplegia and hemiparesis following cerebral infarction affecting left non-dominant side; F03.90 Unspecified dementia, unspecified severity, without behavioral disturbance, psychotic disturbance, mood disturbance, and anxiety; I10 Essential (primary) hypertension; R33.9 Retention of urine, unspecified; N31.9 Neuromuscular dysfunction of bladder, unspecified; N39.44 Nocturnal enuresis; E78.5 Hyperlipidemia, unspecified; F41.9 Anxiety disorder, unspecified; M19.90 Unspecified osteoarthritis, unspecified site; Z79.899 Other long term (current) drug therapy
CPT/HCPCS: 64585; 51040; 00300; J7120; J2405

== ENCOUNTER → 2021-12-24 | Outpatient (CLI) | payer MEDICARE, OTHER, SELFPAY ==
--- NOTE | 2021-12-24 10:52 | BI_ITS ---
MAMMOGRAPHY - BILATERAL SCREENING REASON FOR EXAM: Female, 76 years old. Routine annual screening examination. PERTINENT HISTORY: Mother with breast cancer. TECHNIQUE: Digital bilateral breast shirlene (3D mammographic acquisition) in the CC and MLO projections. 2-D mediolateral oblique (MLO) and craniocaudad (CC) views of both breasts were obtained. CAD: Full Field Digital Mammography with Computer Added Detection was performed. COMPARISON: Comparison is made with prior examination dated 11/16/2017. FINDINGS: Breast Composition: There are scattered areas of fibroglandular density. There are no dominant masses or suspicious calcifications. No other significant abnormalities are identified. There has been no significant change since the prior study. BI/SCRN MAMM (CAD)W/SHIRLENE BILAT IMPRESSION: Stable bilateral screening mammogram. Yearly follow-up mammogram recommended. (A) ASSESSMENT CATEGORY: BIRADS Category 1: Negative. A letter regarding these results will be sent to the patient by the facility within 30 days. Approximately 10% of breast cancers are not detected by mammography. A normal mammogram should not delay biopsy of a clinically suspicious abnormality. [id number] Electronically Signed: Kenyon Carmen MD at 12:41 EDT ,
== END | disposition home or self-care (01) ==
LOC: OPBI 10:51
PROVIDERS: PCP Family Medicine; Visit Provider Internal Medicine Hematology & Oncology
DX: Z12.31 Encounter for screening mammogram for malignant neoplasm of breast (principal); Z80.3 Family history of malignant neoplasm of breast
CPT/HCPCS: 77063; 77067

== ENCOUNTER 2022-01-07 13:00 | Outpatient (RCR) | payer MEDICARE, OTHER, SELFPAY ==
--- NOTE | 2021-10-06 13:43 | HP.PTEVAL_ITS ---
Patient's Visit Information RADHA SPENCER is a 76 year old F referred to Physical Therapy by Dr. Augusta Wilson DO with a diagnosis of CVA. Date of Evaluation: 10/03/21 Physical Therapist: Rusty Carl DPT - Visit Plan Frequency: 2x /Week Duration: 6 Weeks - Subjective Pt. is here today for her initial evaluation with diagnosis of CVA. Pt. has a history multiple CVAs, multiple myeloma, cauda equina and a craniotomy. Pt. is known to this PT. She was seen previously for her instability with gait after CVA. Pt. uses a FWW for her general mobility. She has peripheral neuropathy in BLEs. Pt. reports having LBP and tingling in her BLEs. She is most concerned about her gait and mobility, but is having trouble get in/out of bed. She reports no major changes since last time, but her spouse reports that she had another stroke. No recent falls noted. Overall she reports a general decline in functional mobility. She is doing less at home and not getting out as much. Basically to see physicians only. She is hopeful to increase her strength, mobility and hopefully walk without use of AD. - Pain Lumbar spine Pain Intensity (Out of 10): 2 Pain Intensity Range: 1, 4 - Objective POSTURE: Pt. has general flexed posture with heavy use of AD when present. She can stand without AD, but is unsteady. 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 PALPATION: Pt pain with distal LEs. Slight pain with palpation of lumbar spine. NEURO: Pt. reports decreased sensation in BLEs, its like a constant bussing feeling. hyper reflexive R patellar and achilles tendon DTR. ROM: Pt. has decent ROM, tight into DF on L and B HS are tight. MMT: Pt. has general 4/5 strength throughout BLEs. Pt. 3/5 L DF, 4-/5 bilateral hip abd and flexors. GAIT: Pt. ambulates with FWW with flexed posture and decreased step length bilaterally, but equal. Pt. completed 2 min walk test: 117feet. with SBA. Pt. was able to ambulate without AD, but required [employer] ARCHITECT. Difficulty with stability increased lateral sway without AD. - Balance/Special Test Scores Lower Extremity Functional Score: 29 TUG Test Time Seconds: 47.9 - Goals Goal 1:: LTG: Pt. to be I with HEP for stability and BLE strengthening. Goal Time Frame: 4-6 Weeks Goal 2:: STG: Pt. to be able to ambulate 200' with FWW with MAX without LOB, allowing for increased functional independence. Goal Time Frame: 2-4 Weeks Goal 3:: LTG: Pt. to complete TUG with time of less than 30seconds with use of LRD. Goal Time Frame: 4-6 Weeks Goal 4:: LTG: Pt. to complete 6 MWT without incidence. Goal Time Frame: 2-4 Weeks Goal 5:: LTG: Pt. to have increased BLE strength to 5-/5 throughout allowing for increase ability to complete txs and stair negotiation with decreased caregiver assistance. Goal Time Frame: 4-6 Weeks Goal 6:: LTG: Pt. to have increased L ankle DF AROM to 10deg allowing for increased incidence of catching toe during L swing phase. Goal Time Frame: 4-6 Weeks - Rehabilitation Potential Physical Therapy Diagnosis: Pt. has signs and symptoms consistent with R sided CVA with L sided weakness, LEs worse than UEs. Pt. also has subsequent peripheral neuropathy which is effecting her balance and gait. I would like to work on BLE strengthening, balance, functional mobility and endurance in order to get back to increased stability and independence with functional mobility. Rehabilitation Potential: Good - Anticipated Interventions Patient/Client Instruction: Educate patient on: Condition, Plan of Care, Risk Factors, Benefits of Fitness Program For the Purpose of:: To improve decision making, To facilitate caregiver knowledge, To improve self management, To prevent re-injury, To improve ability to perform tasks related to life management Therapeutic Exercise to Include: Strength training, Endurance training, Balance training, Coordination, Body mechanics, Postural training, Flexibilty training, Gait and locomotor training, Neuromotor development, Passive ROM, Active ROM, Dynamic Lumbar Stabilization For the Purpose of:: To decrease pain, To decrease swelling/inflammation, To increase ROM, To improve nutrient delivery to tissue, To increase oxygenation perfusion, To improve muscle performance and motor function, To improve ability to perform ADL's, To improve gait and locomotor functions, To improve health of tissue, To decrease soft tissue restriction, To increase flexibility/ROM, To improve endurance Thank you for the opportunity to evaluate your patient. For Medicare and Medicare HMO plans, please review the plan of care and approve it. It will need to be FAXED BACK to us at [phone] for Medicare purposes. For Medicare only, by signing this I certify the plan of care. Please let me know if there are questions or concerns regarding this plan of care. Physician Signature: Date:
--- NOTE | 2021-10-09 11:01 | HP.SP.AD_ITS ---
History - History Date of Eval: 10/06/21 Medical Diagnosis (from RX): STROKE Previous speech therapy: Yes Results: Patient was seen by speech therapy previously at [facility], [facility] targeting orientation, short term memory/functional recall, verbal expression, auditory comprehension and executive function. 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), lumbar spine surgery, left subdural hematoma requiring craniotomy (04/09/2020), left frontotemporal cranioplasty (06/06/2020). Smoking Status: Never smoker Hx Smoking: No Hx Tobacco Use: No Hx Smoking Exposure: No - Pain Is pain an issue with your current prescribed condition?: Yes - Personal Patients Living Arrangements: With Significant Other Patient Allergies - Allergies Allergies sulfamethoxazole [From Bactrim] Allergy (Severe, Verified 10/08/21 14:05) Other SEIZUERE, LOSS OF MOVEMENT IN LEGS trimethoprim [From Bactrim] Allergy (Severe, Verified 10/08/21 14:05) Other SEIZURE LOSS OF MOVEMENT IN LEGS indomethacin Allergy (Verified 10/08/21 14:05) NEEDS FOLLOW-UP pneumococcal vaccine Allergy (Verified 10/08/21 14:05) NEEDS FOLLOW-UP morphine Adverse Reaction (Severe, Verified 10/08/21 14:05) Nausea CLQT - CLQT CLQT Administered: Yes CLQT: Cognitive Linguistic Quick Test (CLQT) is a criterion - referenced assessment designed for adults between the ages of 18 and 89 with known or suspected neurological dysfuntions. The CLQT is to assess strength and weaknesses in five cognitive domains. Severity ratings are within normal limits, mild, moderate, severe deficits. The subtests are as follows: Date: 10/09/21 - Attention Attention: Severe - Memory Memory: Moderate - Executive Functions Executive Functions: Severe - Language Language: Moderate - Visuospatial Skills Visuospatial Skills: Severe - Composite Severity Rating Composite Severity Rating: Severe - Clock Drawing Severity Rating Clock Drawing Severity Rating: Severe - CLQT Comments Impression Patient was administered the Cognitive-Linguistic Quick Test (CLQT), which is a criterion-referenced assessment designed for adults between the ages of 18 to 89 years old with known or suspected neurological dysfunctions. The CLQT assesses the following cognitive domains - Attention, Memory, Executive Function, Language, and Visuospatial Skills. Tasks completed within this test include Personal Facts, Symbol Cancellation, Confrontation Naming, Clock Drawing, Story Retelling, Symbol Trails, Generative Naming, Design Memory, Mazes, and Design Generation, with each task addressing different cognitive-linguistic functions. . Results of the CLQT are as follows: Cognitive Domain Scores. Personal Facts (memory and language ability): 6/8. Symbol Cancellation (nonlinguistic task of visual attention and perception, integrity of the upper/lower quadrants of the left/right visual hadley): 0/12. Confrontation Naming (aphasia, perseveration, verbosity): 10. Clock Drawing (screening of all cognitive domains): 0/. Story Retelling (memory and comprehension, arousal, attention, storage capacity, narrative skills): 12/07. Symbol Trails (nonlinguistic task to assess planning, self-monitoring, working memory, and visual attention, and impulsivity): 0/. Generative Naming (word retrieval skills, perseveration): 09/07 with a perseveration ratio of 0.0 %. Design Memory (nonlinguistic task to assess visual discrimination & analysis, attention, and visual memory, impulsivity, perseveration): 1/6. Mazes (planning, mental flexibility, self-monitoring, visual discrimination, and impulsivity): 0/8. Design Generation (nonlinguistic task of creativity and mental flexibility): 0/. Severity Rating. Attention: Cognitive Domain Score = 10 - severe impairment (normal 215-160). Memory: Cognitive Domain Score = 77 - severe impairment (normal 185-155). Executive Functioning: Cognitive Domain Score = 1 - severe impairment (normal 40-19). Language: Cognitive Domain Score = 21 - moderate impairment (normal 37-28). Visuospatial Skills: Cognitive Domain Score = 8 - severe impairment (normal 105-62). Clock Drawing: Score = 0 - severe impairment (normal 13-11). . Composite Severity Rating: SEVERE COG IMPAIRMENT. Reviewed results of CLQT w/ patient, as well as plans for continued tx per plan of care targeting attention, memory, executive function and visuospatial skills. Required repetition of directions and prompts as able to accurately complete task. Plan - Plan Plan: Will recommend patient for outpatient speech therapy 2x/week to address severe cognitive impairment characterized by deficits in attention, immediate and short-term memory, executive functioning, problem solving/reasoning, and safety awareness. Also requires skilled speech therapy to address severe expressive aphasia. Patient would benefit from training in compensatory strategies for recall and word retrieval, as well as cognitive training to improve cognitive functioning. Without skilled ST services, the Pt is at risk for decreased independence completing daily living tasks. - Recommendations Treatment Warranted: Yes - Frequency Frequency: 2x /Week Duration: 4-6 Months - Prognosis Prognosis: Good - Goals that are Established: Determination:: Goals will be added/modified as deemed necessary and appropriate. Therapy will be discontinued when results of re-evaluation indicate therapy is no longer needed or lack of progress has been documented. - Goal #1-5 Goal #1: Pam will attend to therapeutic tasks throughout session with no more than 3 cues to redirect to task completion with presence of distractors across 3 measured opportunities. Goal #2: Pam will complete basic planning, organizing, and sequencing tasks with 60% acc with mod to max cues across 3 measured opportunities. Goal #3: Pam will complete basic immediate, short-term, and working memory tasks with 60% acc with mod to max cues across 3 measured opportunities. Education - Patient has Indicated that the Following Identified Educational Needs: Cognitively Impaired - Patient Instruction Patient Education: Diagnosis, Treatment Plan, Goals, Safety Precautions Person Taught: Patient, Significant Other Teaching Method: Discussion Response to teaching: Verbalize understanding
--- NOTE | 2021-10-14 13:43 | HP.OTEVAL ---
Patient's Visit Information RADHA SPENCER is a 76 year old F, referred to Occupational Therapy by Dr. Augusta Wilson DO, with a diagnosis of CVA. Date of Evaluation: 10/14/21 Occupational Therapist: Maria Del Rosario Coughlin, OTR/Dalia, CHT - Subjective This 76 year old female was seen for OT eval with dx if Cerebral infarct- Pt. has a history multiple CVAs, multiple myeloma, cauda equina and a craniotomy. Pt. is known to this OT. She was seen previously for her instability with weakness after CVA. Pt. uses a FWW for her general mobility. She has peripheral neuropathy in BLEs. Pt. reports having LBP and tingling in her BLEs. She is most concerned about her gait and mobility, but is having trouble get in/out of bed. Spouse states he is assisting her with all bathing and dressing tasks. is cooking and dtrs assist as needed. pt states she sits and watches TV most days. She reports no major changes since last time, but her spouse reports that she had another stroke. No recent falls noted. Overall she reports a general decline in functional mobility. She is doing less at home and not getting out as much. Basically to see physicians only. She is hopeful to increase her strength, mobility and hopefully walk without use of AD. - ADLs Dressing: Pants Comments: spose does all dressing Bathing: Handle washcloth & soap, Wash hair, Squeeze shampoo bottle Comments: use of shower chair - spouse is assisting Grooming: Curling iron, Comb hair Comments: family does grooming Comments: family is assisting with meals. Comments: family does cleaning Comments: pt is using shower chair and her is assisting her with her bathing and dressing-. pt states she does help fold laundry-. pt states she will make a salad every once in a while-. pt states is having a hard time as well- she states she has difficulty with getting things organized. pt states she has one step to get into her home-. Dtrs help getting dinner for pt and her -. pt states dtrs cut her food for her - Objective pt demo with bilateral intention tremor more on left than right. pt is right handed - ROM Shoulder: right 160 left 130 shoulder flex Elbow: right/left WNL Forearm: right /left WNL ROM Comments: pt states she had a right UE fx about 4 weeks ago. left shoulder ROM limited compared to right - Strength Shoulder: right 4-/5 left 3+/5 Elbow: right 4-/5 left 4-/5 Machine Maintenance: right 40# left 20# Lateral Pinch: right 4# left 2# Tripod Pinch: right 4# left 2# Strength Comments: pt demo with weakness of bilateral UE limiting her IND with ADLs and IADLs - Stroke Specific Quality of Life Total SS-QOL Score: 87 - Quick DASH-Disab of Arm,Shoulder& Hand Quick DASH Score: 65.9075 - Goals Goal:: pt will demo a increase in bilateral UE MMT by 1 MM grade for pt to participate in her own dressing tasks by d/c Goal:: pt will demo a increase in left shoulder flex by 15* or grater to increase pts ind. with dressing by d/c Goal:: pt will demo increase in bilateral hand skills to cut food at a SBA level by d.c Goal:: pt will demo good dyn sitting balance to simulate self dressing by d/c. family will report pt completion of UB dressing at SBA level - Rehabilitation General Assessment: pt demo with weakness and decreased thought processing and noted left neglect following a CVA- this increases pts need of assistance with ADLs and IADLs.pt would benefit from skilled OT services - 2x 6 weeks to increase pts functional strength for participation with ADLs . pt agree to POC. Rehabilitation Potential: Good - Anticipated Interventions A/AAROM/PROM, Strengthening, Fine Motor Coord/Juan, Neuro Reeducation, Visual/Perceptual Skills, Caregiver Training, Home Program - Visit Plan Frequency: 2-3x /Week Duration: 6 Weeks TEXT: Thank you for the opportunity to evaluate your patient. For Medicare and Medicare HMO plans, please review the plan of care and approve it. It will need to be FAXED BACK to us at [phone] for Medicare purposes. Please let me know if there are questions or concerns regarding this plan of care. Physician Signature: Date:
--- NOTE | 2021-11-03 15:38 | HP.PTREVAL ---
Dr. Augusta Wilson, DO, It has been my pleasure to treat RADHA SPENCER over the last 10 visits for CVA. Please see the progress note below for an update on the physical therapy plan of care! Subjective: Pt. reports no pain today, but is still having N/T in distal BLEs. Pt. arrives using FWW arriving from this date. Pt. reports overall fatigue. Objective/Function: 5 rep sit to stand test 18.06sec with increased UE use. 6 MWT: 200feet with FWW and CGA. TU.84sec with use of FWW. MMT: RLE: ankle 4+/5 throughout; knee: ext 4+/5, flexion 4+/5; hip: flexion 4/5, abd 4-/5, ext 4/5. LLE: ankle DF 4+/5, DF 3/5; hip: flexion 4+/5, abd 4/5, ext 4+/5. SLS: not able to complete on either LE. narrow DANYEL: 21sec with EO, 8sec with EC. foam stance: 23sec EO, 1 sec EC. Plan Plan: Pt. is progressing with TUG, gait and with strengthening, stability. She is still limited, but is showing some preogress. I want to continue to see her to increase I and work with safety with FWW and transfers. Balance/Gait/Functional tests - Balance/Special Test Scores Lower Extremity Functional Score: 29 TUG Test Time Seconds: 47.9 Tug Test: >30sec.=impaired mobility Goals Goal 1:: LTG: Pt. to be I with HEP for stability and BLE strengthening. Goal Time Frame: 4-6 Weeks Goal Progress: Progressing Goal 2:: STG: Pt. to be able to ambulate 200' with FWW with MAX without LOB, allowing for increased functional independence. Goal Time Frame: 2-4 Weeks Goal Progress: Progressing Goal 3:: LTG: Pt. to complete TUG with time of less than 30seconds with use of LRD. Goal Time Frame: 4-6 Weeks Goal Progress: Progressing Goal 4:: LTG: Pt. to complete 6 MWT without incidence. Goal Time Frame: 2-4 Weeks Goal Progress: Progressing Goal 5:: LTG: Pt. to have increased BLE strength to 5-/5 throughout allowing for increase ability to complete txs and stair negotiation with decreased caregiver assistance. Goal Time Frame: 4-6 Weeks Goal Progress: Progressing Goal 6:: LTG: Pt. to have increased L ankle DF AROM to 10deg allowing for increased incidence of catching toe during L swing phase. Goal Time Frame: 4-6 Weeks Goal Progress: Progressing Anticipated Interventions Patient/Client Instruction: Educate patient on: Condition, Plan of Care, Risk Factors, Benefits of Fitness Program For the Purpose of:: To improve decision making, To facilitate caregiver knowledge, To improve self management, To prevent re-injury, To improve ability to perform tasks related to life management Therapeutic Exercise to Include: Strength training, Endurance training, Balance training, Coordination, Body mechanics, Postural training, Flexibilty training, Gait and locomotor training, Neuromotor development, Passive ROM, Active ROM, Dynamic Lumbar Stabilization For the Purpose of:: To decrease pain, To decrease swelling/inflammation, To increase ROM, To improve nutrient delivery to tissue, To increase oxygenation perfusion, To improve muscle performance and motor function, To improve ability to perform ADL's, To improve gait and locomotor functions, To improve health of tissue, To decrease soft tissue restriction, To increase flexibility/ROM, To improve endurance Please do not hesitate to contact me at [phone] by phone or if you have questions or concerns regarding this new plan of care! Sincerely, Rusty Carl DPT
--- NOTE | 2021-12-02 07:31 | OTREVAL_ITS ---
Dr. Augusta Wilson, DO, It has been my pleasure to treat RADHA SPENCER over the last 8 visits for CVA. Please see the progress note below for an update on the occupational therapy plan of care! Subjective: Pt. walked back to OT area using ww with . stating pt. had difficulty with anesthesia following a procedure- but is feeling better- pt continues to struggle with strength to perform ADLs and IADls Objective/Function: pt continues to demo with generalized weakness increasing need of assistance from others with her ADLs and IADs. pt is progressing toward her goals but had recent set back due to her anesthesia-. Plan Frequency: 2-3x /Week Duration: 4 Weeks Visits in this POC: 12 Plan: cont BUE strengthening and FM skills Goals - Goals Patient Goals: Regain Strength, Use Hand/Wrist/Arm Normally Again, Be More Independent in ADLS Goal:: pt will demo a increase in bilateral UE MMT by 1 MM grade for pt to participate in her own dressing tasks by d/c progressing Goal:: pt will demo a increase in left shoulder flex by 15* or grater to increase pts ind. with dressing by d/c Goal:: pt will demo increase in bilateral hand skills to cut food at a SBA level by d.c goal met Goal:: pt will demo good dyn sitting balance to simulate self dressing by d/c ( progressing). family will report pt completion of UB dressing at SBA level Anticipated Interventions Anticipated Interventions: A/AAROM/PROM, Strengthening, Fine Motor Coord/Juan, Neuro Reeducation, Visual/Perceptual Skills, Caregiver Training, Home Program Please do not hesitate to contact me at [phone] by phone or Fax: if you have questions or concerns regarding this new plan of care! Sincerely, Maria Del Rosario Coughlin, OTR/L, CHT
--- NOTE | 2021-12-09 14:52 | HP.SP.ADRE_ITS ---
Previous/Current Goals - Goals 1-5 Previous Goal #1: Pam will attend to therapeutic tasks throughout session with no more than 3 cues to redirect to task completion with presence of distractors across 3 measured opportunities. Goal 1 Status: Patient tasked w/ IDing problem in picture (e.g. cutting raw chicken w/ same knife as vegetables, someone reaching into oven without an oven mitt and pt.'s response was the food doesn't look good) w/ pt. success w/ MAX multimodal cueing 20%. Patient able to provide reasonable solution to problem w/ pt. success 10%. Patient demonstrates poor insight into problem solving (e.g. cutting raw chicken w/ same knife as vegetables - pt. reports solution being throw up a few times vs. don't cross contaminate food/ use different knife and pt.'s response was putting butter on a burn). Tasked pt. w/ -WH follow-up questions (e.g. Where is he? Why is he doing this? What is a better solution to this problem?) w/ pt. success 40%. Patient required frequent cues to redirect to task at hand. To target sustained and alternating attention - tasked pt. w/ sorting a deck of cards into 2 categories (black and red). Patient had difficulty initiating task however able to verbally recall directions. Therapist modeled task for patient 3x before allowing patient to attempt independently. Patient required MAX verbal cues to sort cards into 2 categories. Therapist provided additional cueing by writing out RED and BLACK using same color sticky notes. Patient continued to required MAX verbal and visual cues to sort cards into 2 categories. Decreased complexity and tasked pt. w/ matching letters of the alphabet. Patient required MAX multimodal cueing to match letters of the alphabet. Previous Goal #2: Pam will complete basic planning, organizing, and sequencing tasks with 60% acc with mod to max cues across 3 measured opp ortunities. Goal 2 Status: To target sequencing - tasked pt. w/ organizing 3 pictures into the correct order re: making a sandwich, making scrambled eggs, making a bed, washing clothes and making a cup of coffee. Able to complete 3 step sequencing tasks w/ 0% w/ MAX CUES. Noted occasionally patient would state what should happen next (after the 1st step had been established by therapist) w/ examples being Oh I would my blanket down. Previous Goal #3: Pam will complete basic immediate, short-term, and working memory tasks with 60% acc with mod to max cues across 3 measured opportunities. Previous Goal #4: Pma will recall orientation information at 75% accuracy in immediate recall given use of visual aids and frequent minimal verbal cues in order to decrease confusion. Goal 4 Status: Oriented to self, , age, current location / situation independently. Unable to recall day of the wk, time of day, current season, current month/yr, address. Therapist re-oriented pt. x4 w/ delayed recall (5 mins) 0%. Automatics -. 1-25 (therapist had to initiate #1 & 2 for pt. to understand what was being asked.). ABC's (therapist had to initiate ABC as pt. initially started spelling her own name S-A-N). Month of the year (therapist had to initiate Aug). Days of the wk (therapist had to initiate Wed) Previous Goal #5: Patient will follow 1 step directions w/ 80% acc across 3/3 measured opportunities. Goal 5 Status: Able to follow 1 step body commands w/ 80% w/ min visual cueing. D/t's poor STM - pt. benefitted from repetition of directions. History - History Date of Eval: 10/06/21 Medical Diagnosis (from RX): STROKE, COGNITIVE. RX HERE Previous speech therapy: Yes Results: Targeted cognition s/p CVA. 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), lumbar spine surgery, left subdural hematoma requiring craniotomy (04/09/2020), left frontotemporal cranioplasty (06/06/2020), dementia Smoking Status: Never smoker Hx Smoking: No Hx Tobacco Use: No Hx Smoking Exposure: No - Pain Is pain an issue with your current prescribed condition?: No - Personal Patients Living Arrangements: With Significant Other Patient Allergies - Allergies Allergies sulfamethoxazole [From Bactrim] Allergy (Severe, Verified 11/24/21 10:23) Other SEIZUERE, LOSS OF MOVEMENT IN LEGS trimethoprim [From Bactrim] Allergy (Severe, Verified 11/24/21 10:23) Other SEIZURE LOSS OF MOVEMENT IN LEGS indomethacin Allergy (Verified 11/24/21 10:23) NEEDS FOLLOW-UP pneumococcal vaccine Allergy (Verified 11/24/21 10:23) NEEDS FOLLOW-UP morphine Adverse Reaction (Severe, Verified 11/24/21 10:23) Nausea Subjective Cog/Ling/Com - Subjective Cognitive/Linguistic/Communication: Patient little to no functional progress d/t co-morbities, worsening medical condition. Unable to make functional progress d/t medical comorbidities. Minimal function carryover d/t underlying neurological dx/impact. However, patient responds to simple verbal cues when paired w/ visual and environmental stim therefore caregivers trained. CLQT - CLQT CLQT Administered: Yes CLQT: Cognitive Linguistic Quick Test (CLQT) is a criterion - referenced assessment designed for adults between the ages of 18 and 89 with known or suspected neurological dysfuntions. The CLQT is to assess strength and weaknesses in five cognitive domains. Severity ratings are within normal limits, mild, moderate, severe deficits. The subtests are as follows: Date: 12/09/21 - Attention Attention: Severe - Memory Memory: Moderate - Executive Functions Executive Functions: Severe - Language Language: Moderate - Visuospatial Skills Visuospatial Skills: Severe - Composite Severity Rating Composite Severity Rating: Severe - Clock Drawing Severity Rating Clock Drawing Severity Rating: Severe - CLQT Comments Impression Patient was administered the Cognitive-Linguistic Quick Test (CLQT), which is a criterion-referenced assessment designed for adults between the ages of 18 to 89 years old with known or suspected neurological dysfunctions. The CLQT assesses the following cognitive domains - Attention, Memory, Executive Function, Language, and Visuospatial Skills. Tasks completed within this test include Personal Facts, Symbol Cancellation, Confrontation Naming, Clock Drawing, Story Retelling, Symbol Trails, Generative Naming, Design Memory, Mazes, and Design Generation, with each task addressing different cognitive-linguistic functions. . Results of the CLQT are as follows: Cognitive Domain Scores. Personal Facts (memory and language ability): 6/8. Symbol Cancellation (nonlinguistic task of visual attention and perception, integrity of the upper/lower quadrants of the left/right visual hadley): 0/12. Confrontation Naming (aphasia, perseveration, verbosity): 10/10. Clock Drawing (screening of all cognitive domains): 0/13. Story Retelling (memory and comprehension, arousal, attention, storage capacity, narrative skills): 10. Symbol Trails (nonlinguistic task to assess planning, self-monitoring, working memory, and visual attention, and impulsivity): 0/10. Generative Naming (word retrieval skills, perseveration): 1/9 with a persevera tion ratio of 0.0 %. Design Memory (nonlinguistic task to assess visual discrimination & analysis, attention, and visual memory, impulsivity, perseveration): 1/6. Mazes (planning, mental flexibility, self-monitoring, visual discrimination, and impulsivity): 0/8. Design Generation (nonlinguistic task of creativity and mental flexibility): 0/13. Severity Rating. Attention: Cognitive Domain Score = 10 - severe impairment (normal 215-160). Memory: Cognitive Domain Score = 77 - severe impairment (normal 185-155). Executive Functioning: Cognitive Domain Score = 1 - severe impairment (normal 40-19). Language: Cognitive Domain Score = 21 - moderate impairment (normal 37-28). Visuospatial Skills: Cognitive Domain Score = 8 - severe impairment (normal 105-62). Clock Drawing: Score = 0 - severe impairment (normal 13-11). . Composite Severity Rating: SEVERE COG IMPAIRMENT. Reviewed results of CLQT w/ patient, as well as plans for continued tx per plan of care targeting attention, memory, executive function and visuospatial skills. Required repetition of directions and prompts as able to accurately complete task. Plan - Plan Plan: Will recommend patient for outpatient speech therapy 2x/week to address severe cognitive impairment characterized by deficits in attention, immediate and short-term memory, executive functioning, problem solving/reasoning, and safety awareness. Also requires skilled speech therapy to address severe expressive aphasia. Patient would benefit from training in compensatory strateg ies for recall and word retrieval, as well as cognitive training to improve cognitive functioning. Without skilled ST services, the Pt is at risk for decreased independence completing daily living tasks. - Recommendations MBS: No Treatment Warranted: Yes - Frequency Frequency: 2x /Week Duration: 4-6 Months - Prognosis Prognosis: Excellent - Goals that are Established: Determination:: Goals will be added/modified as deemed necessary and appropriate. Therapy will be discontinued when results of re-evaluation indicate therapy is no longer needed or lack of progress has been documented. - Goal #1-5 Goal #1: Pam will attend to therapeutic tasks throughout session with no more than 3 cues to redirect to task completion with presence of distractors across 3 measured opportunities. Goal #2: Pam will complete basic planning, organizing, and sequencing tasks with 60% acc with mod to max cues across 3 measured opportunities. Goal #3: Pam will complete basic immediate, short-term, and working memory tasks with 60% acc with mod to max cues across 3 measured opportunities. Goal #4: Pam will recall orientation information at 75% accuracy in immediate recall given use of visual aids and frequent minimal verbal cues in order to decrease confusion. Goal #5: Patient will follow 1 step directions w/ 80% acc across 3/3 measured opportunities.
--- NOTE | 2021-12-15 08:09 | HP.OTDCSUM ---
It has been my pleasure to treat RADHA SPENCER under orders from Dr. Augusta Wilson DO, for the diagnosis of CVA for a total of 11 visit(s). Please see the following information for a summary of their discharge status. % Improvement: 25 Objective/Function: BUE strength 4+/5. elbow flexion 5/5. R- 40#, L- 40#. R lateral pinch 10#, L lateral pinch 7#. LUE shoulder flexion 90*. 9 hole peg test R hand 2 min 19 seconds. L hand 1 min 48 seconds Patient Goals: Regain Strength, Use Hand/Wrist/Arm Normally Again, Be More Independent in ADLS Goal:: pt will demo a increase in bilateral UE MMT by 1 MM grade for pt to participate in her own dressing tasks by d/c. MET Goal:: pt will demo a increase in left shoulder flex by 15* or grater to increase pts ind. with dressing by d/c. Not met L shoulder flexion at 90* down from 130* Goal:: pt will demo increase in bilateral hand skills to cut food at a SBA level by d.c Not consistently met. Goal:: pt will demo good dyn sitting balance to simulate self dressing by d/c ( progressing). family will report pt completion of UB dressing at SBA level Plan: cont BUE strengthening and FM skills Discharge Comments: Pt. has been seen for skilled OT services 11/12 sessions. Pt. has improved with UB strength to 4+5 on B shoulders and to 5/5 on B elbows. Her left hose stripper strength has improved to 40# from 20#,. R lateral pinch 10# improved from 4#, L lateral pinch 7# improved from2#. states that she continues to require assistance with UB dressing secondary to cognition. Pt. inconsistent with meal prep of cutting up foods. Pt. has good sitting balance. Cognition (vascular dementia and frequent UTI's) remains a hinderance to pt's progress and follow through. Provided spouse an pt. with theraband HEP as spouse states they still have their orange and green theraband. spouse and pt agree to OT d/c and will continue with PT. Therapy session was directly supervised and doc. reviewed and approved by Maria Del Rosario Coughlin OTR/Dalia,CHT. If there are questions or concerns regarding this patient's occupational therapy, please fell free to call me at [phone]. Thank you for the referral of this patient. Sincerely, Maria Del Rosario Coughlin, OTR/L, CHT
--- NOTE | 2022-01-07 13:35 | HP.PTREVAL ---
Dr. Augusta Wilson, DO, It has been my pleasure to treat RADHA SPENCER over the last 22 visits for CVA. Please see the progress note below for an update on the physical therapy plan of care! Subjective: Pt. reports no pain, I am having a little upset stomach. She reports sleeping okay. She getting around the house okay, with FWW and spouse assistance. Spouse reports she has not been getting up too much to walk around. Pt. reports being 20% better overall. Objective/Function: MMT: RLE: ankle: DF 7.9# knee: ext 29.1#, flexion 17.8#: hip: flexion 13.3#. LLE: ankle: DF 4# knee: ext 23#, flexon 14.3#, hip: flexion 17.9#. Pt. was able to complete all bed mobility I this date with slight VCing for proper techniques. TU.54sec. Pt. used FWW to complete VCing for safety today. 6MWT: Pt. was able to ambulate for 2:30.41 minutes. She ambulated with FWW for 50.8feet. She require increased standing rest periods and then had to stop. She reports BLE fatigue as limiting factor today. This is more unusual for her. Typically able to ambulate 200+ feet prior to needing rest periods. Second attempt 126feet and she was able to walk for 6 minutes with 3 standing rest periods. GAIT: Pt. continues to ambulate with FWW with decreased step length bilaterally. She has flexed posture with increased use of the AD. 30sec sit to stand: 3 attempts with heavy use of UEs. Today was a little bit more tough for her today. She had increased fatigue with most activities. I continues to demonstrate difficulty with gait, decreased endurance, decreased stability in stance with TUG and overall limited mobility. I have noticed over the past weeks an increase in confusion. I am recommending that she return to her physician to rule out something that may be effecting her cognition and ability to complete functional tasks. In the mean time I will continue to see her with focus on safety with all functional mobility and improving stability in stance. Plan Plan: I am recommending she return/follow up with physician about increased confusion. In the mean time I will continue to work on safety with all functional mobility in attempts to increase stability and I in home both for patient and carry staffing administrator ease. Balance/Gait/Functional tests - Balance/Special Test Scores Lower Extremity Functional Score: 29 TUG Test Time Seconds: 50.8 Tug Test: >30sec.=impaired mobility 30 Second Chair Rise Test Seconds: 3 6 Minute Walk Test: 126 feet with FWW Goals Goal 1:: LTG: Pt. to be I with HEP for stability and BLE strengthening. Goal Time Frame: 4-6 Weeks Goal Progress: Progressing Goal 2:: STG: Pt. to be able to ambulate 200' with FWW with MAX without LOB, allowing for increased functional independence. Goal Time Frame: 2-4 Weeks Goal Progress: Progressing Goal 3:: LTG: Pt. to complete TUG with time of less than 30seconds with use of LRD. Goal Time Frame: 4-6 Weeks Goal Progress: Progressing Goal 4:: LTG: Pt. to complete 6 MWT without incidence. Goal Time Frame: 2-4 Weeks Goal Progress: Progressing Goal 5:: LTG: Pt. to have increased BLE strength to 5-/5 throughout allowing for increase ability to complete txs and stair negotiation with decreased caregiver assistance. Goal Time Frame: 4-6 Weeks Goal Progress: Progressing Goal 6:: LTG: Pt. to have increased R ankle DF AROM to 10deg allowing for increased incidence of catching toe during L swing phase. Goal Time Frame: 4-6 Weeks Goal Progress: Not Progressing Anticipated Interventions Patient/Client Instruction: Educate patient on: Condition, Plan of Care, Risk Factors, Benefits of Fitness Program For the Purpose of:: To improve decision making, To facilitate caregiver knowledge, To improve self management, To prevent re-injury, To improve ability to perform tasks related to life management Therapeutic Exercise to Include: Strength training, Endurance training, Balance training, Coordination, Body mechanics, Postural training, Flexibilty training, Gait and locomotor training, Neuromotor development, Passive ROM, Active ROM, Dynamic Lumbar Stabilization For the Purpose of:: To decrease pain, To decrease swelling/inflammation, To increase ROM, To improve nutrient delivery to tissue, To increase oxygenation perfusion, To improve muscle performance and motor function, To improve ability to perform ADL's, To improve gait and locomotor functions, To improve health of tissue, To decrease soft tissue restriction, To increase flexibility/ROM, To improve endurance Please do not hesitate to contact me at [phone] by phone or if you have questions or concerns regarding this new plan of care! Sincerely, LADAN GilliamT
--- NOTE | 2022-01-14 12:36 | HP.SP.DC_ITS ---
ST Discharge Summary - Discharged: Discharge: Patient participated in 20 speech therapy tx sessions since Sep 2021. Speech therapy has been targeting orientation, STM/functional recall and problem solving/awareness in sessions w/ focus being COMPENSATION vs. SIKH as pt. w/ complex medical hx and dx of dementia. Therapist assessed progress w/ BCAT w/ the following impression re: Total BCAT? Score: 10. Impression: This BCAT? score is suggestive of Dementia or severe cognitive impairment. This BCAT? total score is suggestive of significant cognitive impairment. Persons with his score usually have difficulties in making new memories, as well as problems in other cognitive areas, especially with executive functions. As for impairment in memory, this should not be confused with the ability to recall events, places, and people from the distant past. When healthcare professionals think about memory capability, they are referring to the prospective ability to make a new memory. Many people with mild or moderate dementia are able to recall facts from the remote past, but have problems remembering recent events and learning new material. Individuals with this BCAT? score may also have problems with executive control functions (ECFs). ECFs can be thought of as our cognitive quality control projectionist center. Executive abilities include complex cognitive skills such as judgment, planning, organization, and problem-solving. ECFs have a direct impact on the self-management of instrumental activities of daily living (IADL), such as shopping, laundry, transportation, medication, telephone, housekeeping, and finances. Persons with this BCAT? score often have problems in these areas, which could place them at safety risk if they are living in a situation without some level of direct support. Dementia is a syndrome, not a specific diagnosis. Dementia is caused by a specific disease or diseases. The most common cause of dementia is Alzheimer's disease. However, further evaluation should be done before determining a specific cause. The BCAT? test produces a score that can help stage dementia or significant cognitive dysfunction. It can also help identify individuals with mild versus moderate - severe dementia. BCAT? score of 25 to 33 are suggestive of mild dementia, and scores of 24 and below indicate moderate - severe dementia. You might consider administering the Brief Cognitive Impairment Scale (BCIS?) for scores in the moderate - severe range to get even more information about cognitive and behavioral functioning. The BCIS? is designed for patients with severe cognitive impairment and can be completed interactively on the BCAT? website (www.thebcat.com). Total Contextual Memory Factor (CMF) Score: 2. The Contextual Memory Factor (CMF) indicates current verbal memory skills. It is highly predictive of cognitive diagnosis (MCI versus dementia) and instrumental activities of daily living (IADL). It is also sensitive to those who have amnestic MCI (and who do not have dementia). The score range is 0-15. Scores below 12 typically indicate significant memory concerns that can impact everyday living. A score of 14, combined with a total BCAT? score in the MCI range, is often associated with [id number]. When this occurs, a review of executive functions and other cognitive domains may be helpful. Total Executive Control Functions Factor (ECFF) Score: 0. The Executive Control Functions Factor (ECFF) indicates current executive control functions abilities. There is a strong correlation between ECFF and predicting everyday activities of daily living, especially the higher order skills involving judgment, problem-solving, and reasoning. The score range is 0-7. Scores below 5 generally indicate problems in executive control that could interfere with successful independent living. Some people have problems with executive functions but have relatively intact memory skills. When this occurs, the subtype of executive MCI may be indicated. Total Complex Attention Factor (CAF) Score: 5. Complex attention is an essential cognitive domain. It includes immediate, selective, and divided attention skills. It is highly associated with the ability to perform basic and complex activities of daily living. The Complex Attention Factor score (CAF) predicts ADL and IADL abilities and empirically measures the attentional skills necessary for independent functioning. Lower scores are associated with weaker performance, whereas higher scores suggest stronger abilities. Scores of 7-8 are within the normal/adequate range, and persons with these results may demonstrate higher levels of independence. Scores below 7 indicate likely attentional deficits, the need for more supervision or assistance, and higher risk for safety concerns and errors when completing basic or complex functional tasks. Please note that the CAF has a low performance threshold so most people should score in the adequate range. Total Cognitive Task Valet Parking Attendant (CTM) Score: 7. The Cognitive Task Valet Parking Attendant (CTM) integrates an individual?s performance in three primary cognitive domains: contextual memory, executive control functions, and complex attention. Together, these skills are among the most powerful predictors of palafox outcomes, including performance of basic and complex activities of daily living. The CTM score informs clinicians and families about impairments that can impact functional performance and highlight each individual?s risk for falls and adverse events at home, rehospitalizations and the need for residential support. The CTM score should be considered as part of a comprehensive assessment and be used to guide treatment interventions that address these underlying skill areas and promote a safe and sustainable transition to the next level of care. Patient is being discharged from speech therapy at this date d/t no functional progress. Unable to make functional progress d/t medical comorbidities. Little to no function carryover d/t underlying neurological dx/impact. However, patient responds to verbal cues when paired w/ visual and environmental stim therefore caregivers educated and trained.
--- NOTE | 2022-02-25 10:24 | HP.PT.NRP ---
RADHA SPENCER was seen in my office for initial evaluation on 10/03/21. The following Plan of Care was established for this patient: Initial Frequency: 2x /Week Initial Duration: 6 Weeks Patient/Client Instruction: Educate patient on: Condition, Plan of Care, Risk Factors, Benefits of Fitness Program For the Purpose of:: To improve decision making, To facilitate caregiver knowledge, To improve self management, To prevent re-injury, To improve ability to perform tasks related to life management Therapeutic Exercise to Include: Strength training, Endurance training, Balance training, Coordination, Body mechanics, Postural training, Flexibilty training, Gait and locomotor training, Neuromotor development, Passive ROM, Active ROM, Dynamic Lumbar Stabilization For the Purpose of:: To decrease pain, To decrease swelling/inflammation, To increase ROM, To improve nutrient delivery to tissue, To increase oxygenation perfusion, To improve muscle performance and motor function, To improve ability to perform ADL's, To improve gait and locomotor functions, To improve health of tissue, To decrease soft tissue restriction, To increase flexibility/ROM, To improve endurance This patient was last seen in our office 01/07/22. Pertinent comments regarding their Physical therapy will appear below: Pt. was seen in PT for general debility. At our last visit she was to follow up with physician due to have some increased fatigue and debility, spouse had reported some emotion/cognition changes as well. She has not return to PT in ~2 months and will be DC from PT at this point in time. At this point I will be discontinuing this patient from physical therapy. I would be happy to see this patient again in the future if found appropriate by the physician. Thank you! Rusty Carl, LADANT Balance/Gait/Functional tests - Balance/Special Test Scores Lower Extremity Functional Score: 29 TUG Test Time Seconds: 50.8 Tug Test: >30sec.=impaired mobility 30 Second Chair Rise Test Seconds: 3 6 Minute Walk Test: 126 feet with FWW
== END 2022-01-07 19:00 | disposition home or self-care (01) ==
LOC: SP 13:00
PROVIDERS: PCP Family Medicine; Referring Provider Family Medicine; Visit Provider Family Medicine
DX: I69.318 Other symptoms and signs involving cognitive functions following cerebral infarction (principal); R46.89 Other symptoms and signs involving appearance and behavior
CPT/HCPCS: 92507; 92523; 97110; 97112; 97161; 97164; 97166; 97530

== ENCOUNTER 2022-03-21 23:22 | Emergency (ER) | payer MEDICARE, OTHER, SELFPAY ==
[2022-03-21 23:22] VITALS: BP 125/63; PULSE 72; RESP 14; O2SAT 98
[2022-03-21 23:23] VITALS: BP 123/63; PULSE 73; RESP 15; TEMP 36.8; O2SAT 98; BMI 23.6
--- NOTE | 2022-03-21 23:35 | EKG12_ITS ---
Test Reason : cp Blood Pressure : / mmHG Vent. Rate : 071 BPM Atrial Rate : 071 BPM P-R Int : 160 ms QRS Dur : 076 ms QT Int : 388 ms P-R-T Axes : 065 042 057 degrees QTc Int : 421 ms Normal sinus rhythm Normal ECG Confirmed by KASSANDRA GARNICA, CHRIS ([id number]), editor dictionary TIMMY VALENZUELA ([id number]) on 03/24/2022 9:06:29 AM Referred By: Rosaline Confirmed By:CHRIS CANNON MD
--- NOTE | 2022-03-21 23:36 | EDS_ITS ---
HPI History of Present Illness Chief Complaint: Chest Pain Informant: patient and spouse/S.O. Onset/Context/Timing Onset: Today Activity at onset: sudden Timing: Continuous Quality: Positive for Pressure Location: Left Parasternal Current Severity: Moderate Maximum Severity: Moderate Narrative Narrative: Patient presents via EMS secondary to chest pain. She was reportedly sitting at rest at home when she developed a pressure sensation on her chest as if someone was sitting on her chest. gave her 2 nitro. Patient does not have a cardiac history. EMS was called. Patient was reported given 4 baby aspirin by squad. History is somewhat limited by patient's history of dementia. 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 remote past Self-catheterizes urinary bladder Stroke Urinary retention Walker as ambulation aid Home Medications atorvastatin 80 mg tablet 80 mg PO QHS cholesterol lowering #30 tabs 09/10/19 [Rx Last Taken 11/10/21] bupropion HCl 150 mg tablet,12 hr sustained-release 150 mg PO BID mood 09/26/19 [History Last Taken 11/10/21] tamsulosin 0.4 mg capsule 0.4 mg PO QHS Urinary 09/26/19 [History Last Taken 04/21/20] multivitamin with minerals 1 ea PO DAILY supplement 04/17/20 [History Last Taken 11/10/21] acetaminophen 500 mg tablet 1,000 mg PO Q8 Pain 02/23/21 [History Last Taken Unknown] escitalopram oxalate 20 mg tablet 20 mg PO DAILY Anxiety 30 days #30 tabs 03/05/21 [Rx Last Taken 11/10/21] atenolol 25 mg tablet 25 mg PO DAILY 06/19/21 [History Last Taken 11/10/21] enoxaparin 40 mg/0.4 mL subcutaneous syringe 40 mg subcut DAILY 06/19/21 [History Last Taken 11/10/21] furosemide 40 mg tablet 40 mg PO DAILY 06/19/21 [History Last Taken Unknown] cholecalciferol (vitamin D3) 125 mcg (5,000 unit) tablet (Vitamin D3) 125 mcg PO DAILY 11/03/21 [History Last Taken 11/10/21] dexamethasone 4 mg tablet 5 mg PO WE 11/03/21 [History Last Taken Unknown] acyclovir 400 mg tablet 400 mg PO BID PRN Cold Sores 03/21/22 [History Last Taken Unknown] gabapentin 600 mg tablet 600 mg PO BID 03/21/22 [History Last Taken Unknown] methenamine hippurate 1 gram tablet 1 tab PO BID 03/21/22 [History Last Taken Unknown] mirabegron 25 mg tablet,extended release 24 hr (Myrbetriq) 25 mg PO DAILY 03/21/22 [History Last Taken Unknown] Allergy/AdvReac Type Severity Reaction Status Date / Time sulfamethoxazole Allergy Severe Other Verified 03/21/22 23:23 [From Bactrim] trimethoprim [From Bactrim] Allergy Severe Other Verified 03/21/22 23:23 indomethacin Allergy NEEDS Verified 03/21/22 23:23 FOLLOW-UP pneumococcal vaccine Allergy NEEDS Verified 03/21/22 23:23 FOLLOW-UP morphine AdvReac Severe Nausea Verified 03/21/22 23:23 Family History Mother Breast cancer Sister Breast cancer Aunt Breast cancer Daughter History of malignant melanoma Father Brain cancer Brother Lung cancer Other Anemia Surgical History History of back surgery History of brain surgery History of cholecystectomy History of hysterectomy Social History household members: spouse Smoking Status: Never smoker alcohol intake: never ROS ROS ED ROS Narrative Patient has some difficulty understanding questions secondary to her dementia. Constitutional Constitutional ED: Denies chills or fever(s) Eyes Eyes: Denies change in vision ENT ENT ED: Denies rhinorrhea or sore throat Cardiovascular Cardiovascular: Reports chest pain Respiratory/Chest Respiratory/Chest: Denies dyspnea Gastrointestinal Gastrointestinal: Denies abdominal pain EXAM Physical Exam Const Vital Signs: 03/21/22 23:23 03/21/22 23:22 03/21/22 23:41 Temperature 98.2 F Temperature Source Temporal Pulse Rate 73 72 Respiratory Rate 15 14 Blood Pressure 123/63 H 125/63 H Blood Pressure Mean 83 83 Pulse Ox 98 98 98 Oxygen Delivery Method Room Air Room Air Room Air 03/22/22 00:22 Temperature Temperature Source Pulse Rate 79 Respiratory Rate 13 Blood Pressure Blood Pressure Mean Pulse Ox 98 Oxygen Delivery Method Room Air Positive well nourished and well developed General Appearance ED: well developed HEENT Reports normocephalic and head/scalp atraumatic Eyes PERRL and EOMs intact bilaterally Neck supple Chest Wall inspection of chest normal and palpation of chest normal Resp normal respiratory effort and clear to auscultation bilaterally Cardio regular rate and regular rhythm GI normal to inspection, nondistended, normoactive bowel sounds Palpation: soft Extremity normal to inspection Neuro Neuro Narrative: Patient with chronic left-sided weakness secondary to prior stroke. Sensorium / Orientation: alert Psych mental status grossly normal Skin no rashes or lesions noted MDM MDM MDM Narrative Medical decision making narrative: EKG and chest x-ray obtained. Patient had been given 2 nitro as well as 4 baby aspirin prior to arrival. She was given a small dose of fentanyl for pain. Lab work ordered. Lab Data Attestation: I reviewed the patient's lab results. Labs: Laboratory Results - last 24 hr 03/21/22 03/21/22 03/22/22 23:10 23:10 01:45 WBC 13.7 H RBC 3.98 L Hgb 12.9 Hct 40.3 MCV 101.3 H MCH 32.4 H MCHC 32.0 RDW Std Deviation 49.4 H RDW Coeff of [place] 13.2 Plt Count 151 MPV 12.5 H Immature Gran % (Auto) 2.000 H Neut % (Auto) 48.7 Lymph % (Auto) 18.0 L [place] % (Auto) 28.2 H Eos % (Auto) 2.6 Baso % (Auto) 0.5 Absolute Neuts (auto) 6.7 Absolute Lymphs (auto) 2.46 Nucleated RBC % 0 Differential Comment SCANNED Diff Path Review May foll Sodium 142 Potassium 4.5 Chloride 108 H Carbon Dioxide 31.0 Anion Gap 3 L BUN 25 H Creatinine 1.32 H Estim Creat Clear Calc 30.82 Est GFR (MDRD) Af Amer 50 L Est GFR (MDRD) Non-Af 41 L BUN/Creatinine Ratio 18.9 Glucose 88 Calcium 9.2 Troponin I High Sens 4 3 Radiography Chest X-Ray - ED: 1 View, Read by ED Physician, Normal, Heart, Lungs and Mediastinum Diagnostic Testing: Clinical Impression(s) from Imaging Studies Chest X-Ray 03/21/22 23:55 IMPRESSION: 1. No acute cardiopulmonary abnormality. 2. Old comminuted left proximal humeral fracture. Electronically Signed: Mark Stanford MD at 0:16 EDT , EKG Initial EKG: Attestation: I personally reviewed and interpreted this EKG as follows: Interpretation: Sinus Rhythm (Sinus at 71 with no acute ischemia.) Treatment and Re-Evaluation Narrative: On repeat evaluation patient resting comfortably and states her pain is completely resolved. Initial lab work is unremarkable with a troponin of 4. EKG reveals no acute ischemia. Chest x-ray is clear per my interpretation. Patient and state they are supposed to leave on vacation in the morning and really do not want to be admitted to the hospital for further work-up. They did agree to stay for a repeat 2-hour troponin. Repeat troponin returns at 3 and patient has had no further episodes of chest pain while here. Return instructions are provided. They are comfortable with discharge and follow-up. Discharge Plan Triage Chief Complaint: Chest Pain ED Provider: Joanne Freeman Dx/Rx/DC Orders Clinical Impression: Chest pain Instructions: ED Chest Pain, Uncertain Cause Prescriptions: No Action atenolol 25 mg tablet 25 mg PO DAILY Rx Instructions: take one and one-half tab daily enoxaparin 40 mg/0.4 mL syringe 40 mg subcut DAILY furosemide 40 mg tablet 40 mg PO DAILY atorvastatin 80 MG tablet 80 mg PO QHS Qty: 30 0RF bupropion HCl 150 MG tablet sustained-release 12 hr 150 mg PO BID tamsulosin 0.4 MG capsule 0.4 mg PO QHS multivitamin with minerals 1 EACH tablet 1 ea PO DAILY acetaminophen 500 mg tablet 1,000 mg PO Q8 escitalopram oxalate 20 mg tablet 20 mg PO DAILY 30 Days Qty: 30 0RF cholecalciferol (vitamin D3) [Vitamin D3] 125 mcg (5,000 unit) Tablet 125 mcg PO DAILY dexamethasone 4 mg tablet 5 mg PO WE gabapentin 600 mg Tablet 600 mg PO BID acyclovir 400 mg Tablet 400 mg PO BID PRN (Reason: Cold Sores) methenamine hippurate 1 gram tablet 1 tab PO BID Myrbetriq 25 mg tablet extended release 24 hr 25 mg PO DAILY Primary Care Provider: Augusta Wilson Referrals: Augusta Wilson DO [Primary Care Provider] - 1-2 Weeks Disposition Disposition: Home, Self Care
[2022-03-21 23:41] VITALS: O2SAT 98
[2022-03-21] MEDS: fentaNYL 100 MCG/2 ML Ampul 12.5 MCG IV (23:47)
[2022-03-21 23:51] LABS: Absolute Lymphocyte Count 2.46 X10^3/uL (0.83-4.51); Absolute Neutrophil Count 6.7 X10^3/uL (2.0-7.7); Basophil# 0.07 X10^3/uL; Basophil% 0.5 % (0-1); Eosinophil# 0.36 X10^3/uL; Eosinophils% 2.6 % (0-5); Hematocrit 40.3 % (37-47); Hemoglobin 12.9 g/dL (12.0-15.0); Lymphocyte # 2.46 X10^3/ul (0.83-4.51); Mean Corpuscular Hgb 32.4 pg (27.0-32.0); Mean Corpuscular Volume 101.3 fL (81-99); Mean Platelet Vol. 12.5 fl (6.2-12.0); Monocyte# 3.87 X10^3/uL; Monocyte% 28.2 % (0-10); NRBC Flagged by Analyzer 0 % (0-5); Neutrophil # 6.66 X10^3/uL (2.7-7.7); Neutrophil % 48.7 % (47-70); POSITIVE DIFFERENTIAL YES; Platelet Count 151 K/mm3 (150-450); RBC Distribution Width CV 13.2 % (11.6-14.6); RBC Distribution Width SD 49.4 fl (35.1-43.9); Red Blood Count 3.98 M/mm3 (4.2-5.4); White Blood Count 13.7 K/mm3 (4.4-11.0)
--- NOTE | 2022-03-21 23:55 | RAD_ITS ---
EXAM: XR CHEST, 1 VIEW CLINICAL INDICATION: chest pain TECHNIQUE: Frontal view of the chest. This report was created using [employer] report generation technology. COMPARISON: 04/23/2020. FINDINGS: LUNGS AND PLEURAL SPACES: Unremarkable. No consolidation or edema. No pneumothorax. No effusion. HEART: Unremarkable. Cardiac silhouette not enlarged. MEDIASTINUM: Central airways and mediastinal contour are unremarkable. BONES/JOINTS: Old comminuted left proximal humeral fracture. SOFT TISSUES: Unremarkable. RAD/Chest 1 View (Portable) IMPRESSION: 1. No acute cardiopulmonary abnormality. 2. Old comminuted left proximal humeral fracture. Electronically Signed: Mark Stanford MD at 0:16 EDT ,
[2022-03-22 00:01] LABS: Differential Indicated SCAN CRITERIA MET
[2022-03-22 00:02] LABS: Anion Gap 3 (5-15); BUN 25 mg/dL (7-18); BUN/Creat Ratio 18.9 RATIO (10-20); Calcium,Total 9.2 mg/dL (8.5-10.1); Chloride 108 mmol/L (98-107); Creatinine, Serum 1.32 mg/dL (0.55-1.02); EST Glomerular Filtration Rate 41 mL/min (>60); Est Glom Filt Rate - Afr Amer 50 mL/min (>60); Estimated Creatinine Clearance 30.82 ml/min; Glucose 88 mg/dL (74-106); Potassium 4.5 mmol/L (3.5-5.1); Sodium Level 142 mmol/L (136-145); Troponin-I HS (w/2H Reflex) 4 pg/mL (3.0-54.0)
[2022-03-22 00:22] VITALS: PULSE 79; RESP 13; O2SAT 98
[2022-03-22 00:57] LABS: Differential Comment SCANNED
[2022-03-22 01:43] LABS: Reflex Troponin-HS? (from REC) Y
[2022-03-22 02:35] LABS: Troponin-I HS 3 pg/mL (3.0-54.0)
[2022-03-22 02:52] VITALS: BP 133/74; PULSE 71; RESP 18; O2SAT 97
[2022-03-23 13:23] LABS: Pathologist Review Reviewed
== END 2022-03-22 02:54 | disposition home or self-care (01) ==
PROVIDERS: Emergency Provider Emergency Medicine; PCP Family Medicine; Visit Provider Emergency Medicine
DX: R07.9 Chest pain, unspecified (principal); F03.90 Unspecified dementia, unspecified severity, without behavioral disturbance, psychotic disturbance, mood disturbance, and anxiety; Z86.73 Personal history of transient ischemic attack (TIA), and cerebral infarction without residual deficits
CPT/HCPCS: 71045; 80048; 84484; 85025; 93005; 96374; 99285; A4216

== ENCOUNTER → 2022-06-23 | Outpatient (CLI) | payer MEDICARE, OTHER, SELFPAY ==
[2022-06-23 15:29] LABS: Absolute Neutrophil Count 11.2 X10^3/uL (2.0-7.7); Basophil# 0.12 X10^3/uL; Basophil% 0.7 % (0-1); Eosinophil# 0.47 X10^3/uL; Eosinophils% 2.6 % (0-5); Hematocrit 40.3 % (37-47); Hemoglobin 13.1 g/dL (12.0-15.0); Lymphocyte % 10.5 % (19-41); Mean Corp Hgb Conc 32.5 g/dL (32-36); Mean Corpuscular Hgb 32.6 pg (27.0-32.0); Mean Corpuscular Volume 100.2 fL (81-99); Mean Platelet Vol. 13.8 fl (6.2-12.0); Monocyte# 4.14 X10^3/uL; Monocyte% 22.8 % (0-10); NRBC Flagged by Analyzer 0 % (0-5); Neutrophil # 11.24 X10^3/uL (2.7-7.7); Neutrophil % 61.8 % (47-70); POSITIVE DIFFERENTIAL YES; Platelet Count 113 K/mm3 (150-450); RBC Distribution Width CV 13.2 % (11.6-14.6); RBC Distribution Width SD 48.7 fl (35.1-43.9); Red Blood Count 4.02 M/mm3 (4.2-5.4); White Blood Count 18.2 K/mm3 (4.4-11.0)
[2022-06-23 16:28] LABS: ALB/GLOB Ratio 1.2 RATIO (0.9-2.4); AST(SGOT) 26 U/L (15-37); Alanine Aminotransfer ALT/SGPT 51 U/L (13-56); Albumin, Serum 3.7 g/dL (3.2-5.0); Alkaline Phosphatase 74 U/L (45-117); Anion Gap 6 (5-15); BUN 30 mg/dL (7-18); BUN/Creat Ratio 22.1 RATIO (10-20); Calcium,Total 9.1 mg/dL (8.5-10.1); Chloride 105 mmol/L (98-107); Creatinine, Serum 1.36 mg/dL (0.55-1.02); EST Glomerular Filtration Rate 40 mL/min (>60); Est Glom Filt Rate - Afr Amer 48 mL/min (>60); Globulin 3.2 g/dL (2.2-4.2); Glucose 83 mg/dL (74-106); Potassium 4.4 mmol/L (3.5-5.1); Protein, Total 6.9 g/dL (6.4-8.2); Sodium Level 138 mmol/L (136-145); Thyroid Stim Hormone (TSH) 2.62 uIU/mL (0.358-3.74)
[2022-06-23 16:58] LABS: Differential Indicated SCAN CRITERIA MET
[2022-06-23 16:59] LABS: Differential Comment SCANNED
[2022-06-23 17:18] LABS: Vitamin B12 1273 pg/mL (211-911)
[2022-06-24 12:45] LABS: Pathologist Review Reviewed
== END | disposition home or self-care (01) ==
PROVIDERS: PCP Family Medicine; Referring Provider Psychiatry & Neurology Neurology; Visit Provider Psychiatry & Neurology Neurology
DX: C90.01 Multiple myeloma in remission (principal); F03.90 Unspecified dementia, unspecified severity, without behavioral disturbance, psychotic disturbance, mood disturbance, and anxiety; F32.9 Major depressive disorder, single episode, unspecified
CPT/HCPCS: 36415; 80053; 82607; 82746; 84425; 84443; 85025

== ENCOUNTER → 2022-07-14 | Outpatient (CLI) | payer MEDICARE, OTHER, SELFPAY ==
--- NOTE | 2022-07-14 12:27 | MRI_ITS ---
EXAM: MR HEAD WITHOUT AND WITH INTRAVENOUS CONTRAST CLINICAL INDICATION: Dementia. History of multiple CVA and SDH with evacuation. TECHNIQUE: Multiplanar and multisequence MR images of the brain were obtained without and with intravenous contrast. This report was created using [employer] report generation technology. CONTRAST: IV 12ML CLARISCAN COMPARISON: CT head without contrast 05/19/2021. FINDINGS: BRAIN AND EXTRA-AXIAL SPACES: No diffusion restriction to suspect acute or subacute ischemic infarct. Small cortical based ischemic infarcts involving the right frontal lobe, left posterior parietal lobe and multifocal confluent chronic white matter ischemic changes in both cerebral hemispheres. Following IV contrast administration, there is a solid enhancing meningioma in the left side of the posterior falx cerebri measuring 1.9 x 1.3 x 1.9 cm. This is causing very minimal mass effect on the medial surface of the left posterior paracentral lobule. No associated vasogenic edema of the underlying brain parenchyma. There is a possible small enhancing en plaque type of meningioma near the left anterior falx cerebri without mass effect of the underlying left superior frontal gyrus. No intra- or extra-axial hemorrhage. Posterior fossa structures are unremarkable. Ventricles are appropriate for age. No hydrocephalus. Basal cisterns are patent. SELLA: Unremarkable. Normal sella turcica, pituitary gland, infundibular stalk, optic chiasm and hypothalamus. AUDITORY SYSTEM: Unremarkable. The internal auditory canals are patent. BONES/JOINTS: Left craniotomy defect with small extra-axial fluid underneath the craniotomy is unchanged. No discrete lytic or blastic abnormalities. SINUSES: Unremarkable as visualized. Clear. MASTOID AIR CELLS: Unremarkable as visualized. Clear. ORBITS: Unremarkable as visualized. Both globes, extraocular muscles, optic nerves and retrobulbar fat appear unremarkable. VASCULATURE: Unremarkable as visualized. Normal flow voids in the major intracranial circulation. MRI/Brain W/WO Contrast IMPRESSION: 1. No MRI evidence of acute or subacute ischemic infarct or recurrent intracranial bleeding. 2. 1.9 x 1.3 x 1.9 cm solid enhancing meningioma in the left side of the posterior falx cerebri with very minimal mass effect on the medial surface of the left posterior paracentral lobule. 3. Possible small enhancing en plaque type meningioma near the left side of the anterior falx cerebri. There is no associated mass effect of the underlying cortex of the left superior frontal gyrus. 4. Confluent chronic white matter ischemic changes in both cerebral hemispheres and old cortical gyral ischemic infarcts with focal atrophy in the right frontal lobe and left posterior parietal lobe. 5. Small postoperative extra-axial fluid underneath the left craniotomy site is unchanged since 05/19/2021. Electronically Signed: Anthony Gifford MD at 14:15 EST ,
== END | disposition home or self-care (01) ==
LOC: MRI 12:27
PROVIDERS: PCP Family Medicine; Referring Provider Psychiatry & Neurology Neurology; Visit Provider Psychiatry & Neurology Neurology
DX: D32.9 Benign neoplasm of meninges, unspecified (principal); C90.00 Multiple myeloma not having achieved remission; G20 Parkinson's disease; F03.90 Unspecified dementia, unspecified severity, without behavioral disturbance, psychotic disturbance, mood disturbance, and anxiety; G44.209 Tension-type headache, unspecified, not intractable; Z86.73 Personal history of transient ischemic attack (TIA), and cerebral infarction without residual deficits
CPT/HCPCS: 70553; A9575

== ENCOUNTER 2022-07-15 17:58 | Outpatient (RCR) | payer MEDICARE, OTHER, SELFPAY ==
[2022-07-15 18:23] LABS: Color, Urine Yellow (Yellow); Glucose, Dipstick Normal (Normal); Ketone-Dipstick 15 mg/dl (Negative); Leukocyte Esterase-Dipstick 500 /ul (Negative); Nitrite-Dipstick Negative (Negative); Occult Blood-Urine 250 /ul (Negative); Protein-Dipstick 100 mg/dl (Negative); Urine Bilirubin Dipstick Negative (Negative); Urine Clarity Cloudy (Clear); Urine Urobilinogen Normal (Normal)
== END 2022-07-29 18:00 | disposition home or self-care (01) ==
LOC: HHLAB 17:58
PROVIDERS: PCP Family Medicine; Visit Provider Urology
DX: N39.0 Urinary tract infection, site not specified (principal)
CPT/HCPCS: 81002; 87077; 87086; 87088; 87186

== ENCOUNTER → 2022-08-03 | Outpatient (CLI) | payer MEDICARE, OTHER, SELFPAY ==
[2022-08-03 13:07] LABS: Absolute Lymphocyte Count 1.64 X10^3/uL (0.83-4.51); Absolute Neutrophil Count 8.7 X10^3/uL (2.0-7.7); Basophil% 0.7 % (0-1); Eosinophil# 0.24 X10^3/uL; Eosinophils% 1.6 % (0-5); Hemoglobin 12.2 g/dL (12.0-15.0); Lymphocyte # 1.64 X10^3/ul (0.83-4.51); Lymphocyte % 11.2 % (19-41); Mean Corp Hgb Conc 32.1 g/dL (32-36); Mean Corpuscular Hgb 31.9 pg (27.0-32.0); Mean Corpuscular Volume 99.2 fL (81-99); Mean Platelet Vol. 11.6 fl (6.2-12.0); Monocyte# 3.68 X10^3/uL; Monocyte% 25.2 % (0-10); NRBC Flagged by Analyzer 0 % (0-5); Neutrophil # 8.65 X10^3/uL (2.7-7.7); Neutrophil % 59.4 % (47-70); POSITIVE DIFFERENTIAL YES; Platelet Count 148 K/mm3 (150-450); RBC Distribution Width CV 13.1 % (11.6-14.6); RBC Distribution Width SD 47.3 fl (35.1-43.9); Red Blood Count 3.83 M/mm3 (4.2-5.4); White Blood Count 14.6 K/mm3 (4.4-11.0)
[2022-08-03 13:08] LABS: Differential Indicated SCAN CRITERIA MET
[2022-08-03 13:27] LABS: Differential Comment SCANNED
[2022-08-05 09:34] LABS: Pathologist Review Reviewed
[2022-08-07 05:07] LABS: Alternaria tenuis <0.10 kU/L (Class 0); Ash, White <0.10 kU/L (Class 0); Aspergillus fumigatus <0.10 kU/L (Class 0); Bermuda Grass <0.10 kU/L (Class 0); Birch <0.10 kU/L (Class 0); Black Walnut <0.10 kU/L (Class 0); Cat Hair / Dander,Stand <0.10 kU/L (Class 0); Cedar, Mountain <0.10 kU/L (Class 0); Cladosporium herbarum <0.10 kU/L (Class 0); Cockroach, American <0.10 kU/L (Class 0); Cottonwood <0.10 kU/L (Class 0); D farinae Mite <0.10 kU/L (Class 0); D pteronyssinus <0.10 kU/L (Class 0); Dog Epithelia <0.10 kU/L (Class 0); Elm, American White <0.10 kU/L (Class 0); Immunoglobulin E < 2 IU/mL (6-495); Maple/Box Elder <0.10 kU/L (Class 0); Mulberry, White <0.10 kU/L (Class 0); Oak, White <0.10 kU/L (Class 0); Pecan <0.10 kU/L (Class 0); Penicillium Notatum <0.10 kU/L (Class 0); Pigweed, Rough <0.10 kU/L (Class 0); Ragweed, Short/Common <0.10 kU/L (Class 0); Russian Thistle <0.10 kU/L (Class 0); Sheep Sorrel <0.10 kU/L (Class 0); Sycamore, American <0.10 kU/L (Class 0); Timothy Grass <0.10 kU/L (Class 0)
[2022-08-07 13:36] LABS: Immunoglobulin E < 2 IU/mL (6-495); Mouse Urine <0.10 kU/L (Class 0)
== END | disposition home or self-care (01) ==
LOC: LAB 12:05 → PAVLAB 12:08
PROVIDERS: PCP Family Medicine; Referring Provider Internal Medicine Critical Care Medicine; Visit Provider Internal Medicine Critical Care Medicine
DX: R05.3 Chronic cough (principal); C90.01 Multiple myeloma in remission
CPT/HCPCS: 36415; 82785; 85025; 86003

== ENCOUNTER 2022-08-14 17:38 | Outpatient (RCR) | payer MEDICARE, OTHER, SELFPAY ==
[2022-08-14 17:55] LABS: Color, Urine Yellow (Yellow); Glucose, Dipstick Normal (Normal); Ketone-Dipstick 5 mg/dl (Negative); Leukocyte Esterase-Dipstick 500 /ul (Negative); Nitrite-Dipstick Positive (Negative); Occult Blood-Urine 150 /ul (Negative); Protein-Dipstick 30 mg/dl (Negative); Urine Bilirubin Dipstick Negative (Negative); Urine Clarity Cloudy (Clear); Urine Urobilinogen Normal (Normal)
== END 2022-08-14 18:00 | disposition home or self-care (01) ==
LOC: HHLAB 17:38
PROVIDERS: PCP Family Medicine; Visit Provider Urology
DX: Z43.5 Encounter for attention to cystostomy (principal); Z46.6 Encounter for fitting and adjustment of urinary device; N31.9 Neuromuscular dysfunction of bladder, unspecified
CPT/HCPCS: 81002; 87077; 87086; 87088; 87186

== ENCOUNTER → 2022-08-20 | Outpatient (CLI) | payer MEDICARE, OTHER, SELFPAY ==
--- NOTE | 2022-08-20 14:34 | PFTCOMP_ITS ---
COMPLETE PULMONARY FUNCTION TEST INTERPRETATION Brief HPI: Patient is a 77-year-old female, currently under the care of Dr. Aldridge, who presents to [facility] for complete pulmonary function tests secondary to diagnosis of chronic cough. Respiratory therapist reports good effort and reproducible results. Interpretation: Forced expiration spirometry shows no large airways obstructive ventilatory defect with an FEV1 of 100% predicted. There is no significant bronchodilator response by strict ATS criteria. Spirograms are of good quality and plateau slowly, indicating slowly emptying areas of the lungs. The respiratory flow volume loop shows decreased expiratory flow rates at high lung volumes consistent with small airways obstruction. Lung volumes by body plethysmography show a normal total lung capacity at 5 L, 110% predicted. All other lung volumes are within normal limits. Diffusion capacity by carbon monoxide is normal at 98% predicted. The airway resistance is normal. No previous pulmonary function tests were available for review. Impression: Grossly normal pulmonary function test with some subtle stigmata of small airways disease
== END | disposition home or self-care (01) ==
LOC: PSN 13:03
PROVIDERS: PCP Family Medicine; Referring Provider Internal Medicine Critical Care Medicine; Visit Provider Internal Medicine Critical Care Medicine
DX: R05.3 Chronic cough (principal)
CPT/HCPCS: 94060; 94726; 94729

== ENCOUNTER → 2022-09-28 | Outpatient (CLI) | payer MEDICARE, OTHER, SELFPAY | END | disposition home or self-care (01) | PROVIDERS: PCP Family Medicine; Visit Provider Psychiatry & Neurology Neurology | DX: R53.83 Other fatigue (principal) | CPT/HCPCS: 87077; 87086; 87088; 87186 ==

== ENCOUNTER → 2023-01-15 | Outpatient (CLI) | payer MEDICARE, OTHER, SELFPAY ==
--- NOTE | 2023-01-15 11:44 | BI_ITS ---
MAMMOGRAPHY - BILATERAL SCREENING REASON FOR EXAM: Female, 77 years old. Routine annual screening examination. PERTINENT HISTORY: Sister with breast cancer. Mother with breast cancer. TECHNIQUE: Digital bilateral breast adwoa (3D mammographic acquisition) in the CC and MLO projections. 2-D mediolateral oblique (MLO) and craniocaudad (CC) views of both breasts were obtained. CAD: Full Field Digital Mammography with Computer Added Detection was performed. COMPARISON: Comparison is made with prior examination December 24, 2021. FINDINGS: Breast Composition: There are scattered areas of fibroglandular density. There are no dominant masses or suspicious calcifications. No other significant abnormalities are identified. There has been no significant change since the prior study.
== END | disposition home or self-care (01) ==
LOC: OPBI 11:44
PROVIDERS: PCP Family Medicine; Referring Provider Internal Medicine Hematology & Oncology; Visit Provider Internal Medicine Hematology & Oncology
DX: Z12.31 Encounter for screening mammogram for malignant neoplasm of breast (principal)
CPT/HCPCS: 77063; 77067

== ENCOUNTER → 2023-02-09 | Outpatient (CLI) | payer MEDICARE, OTHER, SELFPAY ==
--- NOTE | 2023-02-09 12:44 | CT_ITS ---
STUDY: CT BRAIN WITHOUT CONTRAST REASON FOR EXAM: Female, 77 years old. Worsening headache -- Patient had prior subdural hematoma evacuation RADIATION DOSAGE (If Supplied By Facility): CTDIvol = ( 47.06 ) mGy, DLP = ( 907.97 ) mGycm TECHNIQUE: Transaxial CT imaging of the brain was performed without administration of intravenous contrast material. Individualized dose optimization techniques were used for this CT. COMPARISON: Comparison is made with prior study May 19, 2021. FINDINGS: Normal soft tissue structures. Prior right parietal rosmery holes. There is mild cerebral atrophy with widening of the extra-axial spaces and ventricular dilatation. There are areas of decreased attenuation within the white matter tracts of the supratentorial brain, consistent with microvascular disease changes. Normal basal ganglia and thalami. Normal brainstem. There is mild cerebellar atrophy. Small acute subdural hematoma overlying the left frontoparietal lobes with no significant mass effect. Stable partially calcified meningioma in the superior aspect of the medial left parietal lobe abutting the cerebral falx. Normal visualized paranasal sinuses. CT/Brain/Head without Contrast IMPRESSION: Small acute subdural hematoma overlying the left frontoparietal lobes as described. The examination is unchanged. Electronically Signed: Kenyon Carmen MD at 13:43 EDT ,
== END | disposition home or self-care (01) ==
PROVIDERS: PCP Family Medicine; Referring Provider Psychiatry & Neurology Neurology; Visit Provider Psychiatry & Neurology Neurology
DX: R51.9 Headache, unspecified (principal); D32.0 Benign neoplasm of cerebral meninges; Z86.73 Personal history of transient ischemic attack (TIA), and cerebral infarction without residual deficits; Z86.79 Personal history of other diseases of the circulatory system
CPT/HCPCS: 70450

== ENCOUNTER → 2023-03-14 | Outpatient (CLI) | payer MEDICARE, OTHER, SELFPAY ==
[2023-03-14 09:31] LABS: Color, Urine Yellow (Yellow); Glucose, Dipstick Normal (Normal); Ketone-Dipstick Negative (Negative); Leukocyte Esterase-Dipstick 25 /ul (Negative); Nitrite-Dipstick Negative (Negative); Occult Blood-Urine 50 /ul (Negative); Protein-Dipstick 15 mg/dl (Negative); Specific Gravity, Urine 1.015 (1.002-1.030); Urine Bilirubin Dipstick Negative (Negative); Urine Clarity Clear (Clear); Urine Urobilinogen Normal (Normal)
== END | disposition home or self-care (01) ==
PROVIDERS: PCP Family Medicine; Visit Provider Family Medicine
DX: R53.83 Other fatigue (principal)
CPT/HCPCS: 81002; 87077; 87086; 87088; 87186

== ENCOUNTER → 2023-05-05 | Outpatient (CLI) | payer MEDICARE, OTHER, SELFPAY ==
[2023-05-05 12:40] LABS: Bacteria 0 SEEN /hpf (None Seen); Mucous, Urine 0 SEEN /hpf (<or=2+); Red Blood Cells-Urine 0 SEEN /hpf (0-5); Squamous Epithelial Cells - UA 0 SEEN /hpf (5-10)
[2023-05-05 13:25] LABS: Glucose, Dipstick Normal (Normal); Ketone-Dipstick Negative (Negative); Leukocyte Esterase-Dipstick 500 /ul (Negative); Nitrite-Dipstick Negative (Negative); Occult Blood-Urine 50 /ul (Negative); Protein-Dipstick 15 mg/dl (Negative); Urine Bilirubin Dipstick Negative (Negative); Urine Urobilinogen Normal (Normal)
[2023-05-05 13:41] LABS: Color, Urine Yellow (Yellow); Urine Clarity Sl Cloudy (Clear); White Blood Cells 50-100 SEEN /hpf (0-5)
== END | disposition home or self-care (01) ==
LOC: LABSPEC 12:35
PROVIDERS: PCP Family Medicine; Referring Provider Family Medicine; Visit Provider Family Medicine
DX: R53.83 Other fatigue (principal); R31.9 Hematuria, unspecified; N32.89 Other specified disorders of bladder
CPT/HCPCS: 81001; 87077; 87086; 87088; 87186

== ENCOUNTER → 2023-06-11 | Outpatient (CLI) | payer MEDICARE, OTHER, SELFPAY ==
[2023-06-11 13:27] LABS: Bacteria 0 SEEN /hpf (None Seen); Mucous, Urine 0 SEEN /hpf (<or=2+); Red Blood Cells-Urine 0 SEEN /hpf (0-5); Squamous Epithelial Cells - UA 0 SEEN /hpf (5-10); White Blood Cells 0 SEEN /hpf (0-5)
[2023-06-11 13:32] LABS: Color, Urine Yellow (Yellow); Glucose, Dipstick Normal (Normal); Ketone-Dipstick Negative (Negative); Leukocyte Esterase-Dipstick Negative /ul (Negative); Nitrite-Dipstick Negative (Negative); Occult Blood-Urine 25 /ul (Negative); Protein-Dipstick Negative (Negative); Urine Bilirubin Dipstick Negative (Negative); Urine Clarity Clear (Clear); Urine Urobilinogen Normal (Normal)
[2023-06-11 13:39] LABS: Uric Acid Crystals Ur 2+ /hpf (<or=1+)
== END | disposition home or self-care (01) ==
LOC: LABSPEC 13:13
PROVIDERS: PCP Family Medicine; Visit Provider Family Medicine
DX: Z51.81 Encounter for therapeutic drug level monitoring (principal); Z79.2 Long term (current) use of antibiotics
CPT/HCPCS: 81001